=== PATIENT | female | born 1955 | race African-American/Black ===

== ENCOUNTER 2020-06-05 08:52 | Emergency (ER) | payer MEDICARE, SELFPAY ==
[2020-06-05] VITALS (37 sets, daily range): BP systolic 122–174; BP diastolic 67–143; PULSE 78–99; RESP 16–38; TEMP 36.6; O2SAT 83–100
--- NOTE | ~2020-06-05 | XR_ITS ---
EXAMINATION: XR chest 1V portable INDICATION: Shortness of breath TECHNIQUE: Portable AP chest at 1024 hours COMPARISON: 01/15/2018 FINDINGS: There are diffuse interstitial and airspace opacities throughout all lung zones. Cardiomega ly is noted. No pleural effusion or pneumothorax is identified. The visible osseous structures are un remarkable. IMPRESSION: 1. Diffuse lung disease, consistent with pneumonia and/or pulmonary edema. Reviewed, dictated and finalized at location B.
--- NOTE | 2020-06-05 08:55 | ECG_ITS ---
SINUS RHYTHM ATRIAL PREMATURE COMPLEX LEFT AXIS DEVIATION LEFT BUNDLE BRANCH BLOCK BASELINE ARTIFACT- I, II, III, AVR ABNORMAL ECG Electronically Signed On 06-05-2020 9:18:41 CDT by Heath DUBOSE
--- NOTE | 2020-06-05 09:18 | PC.NURSE ---
ATTEMPTED IV X2. UNSUCCESSFUL. PT STATES SHE IS A DIFFICULT STICK AND NORMALLY NEEDS US TO FIND VEIN. CALLED NEHEMIAS, IV SPECIALIST. STATES SHE WILL BE DOWN TO START AN IV. PT NOTIFIED.
[2020-06-05 10:02] LABS: Basophils Percent Auto 0.4 % (0.2-1.2); Eosinophils Absolute Auto 0.2 K/mm3 (0-0.3); Eosinophils Percent Auto 2.9 % (0-4.4); Hemoglobin 9.4 g/dL (12.0-15.0); Immature Granulocyte Absolute 0.03 K/mm3 (0.00-0.031); Immature Granulocyte Percent A 0.4 % (0-0.5); Lymphocytes Absolute Auto 1.93 K/mm3 (0.9-3.2); Lymphocytes Percent Auto 24.2 % (18.3-44.2); Mean Corpuscular HGB Conc 31.3 g/dl (32-36); Mean Corpuscular Hemoglobin 28.4 pg (26-34); Mean Corpuscular Volume 90.6 fl (80-100); Mean Platelet Volume 10.1 fl (7.4-10.4); Monocytes Absolute Auto 0.6 K/mm3 (0.1-0.6); Neutrophils Absolute Auto 5.1 K/mm3 (1.3-6.7); Neutrophils Percent Auto 64.1 % (45.5-73.1); Platelet Count Result 259 k/mm3 (150-375); Red Blood Count 3.31 M/mm3 (4.2-5.4); Red Cell Distribution Width 14.8 % (11.5-14.5)
[2020-06-05 10:11] LABS: INR 1.1; Prothrombin Time 14.5 Seconds (11.1-14.7)
[2020-06-05 10:13] LABS: Anion Gap 7 mmol/L (8-16); Blood Urea Nitrogen 23 mg/dL (7-17); Carbon Dioxide 34 mmol/L (22-30); Chloride 97 mmol/L (98-107); Estimated Glomerular Filt Rate 11; Glucose 96 mg/dL (65-105); Potassium 3.7 mmol/L (3.4-5.0); Sodium 138 mmol/L (137-145)
[2020-06-05 10:25] LABS: Troponin I 0.026 ng/mL (0.000-0.034)
[2020-06-05 10:37] LABS: Alveolar/Arterial O2 Gradient 57.9 mmHg; Base Excess ABG 4.9 mEq/l (+/-2.0); Carboxyhemoglobin 0.3 % THb (0-2.0); Fractional Inspired Oxygen 21 %; HCO3 ABG 28.6 mEq/l (22.0-26.0); Methemoglobin ABG 0.3 %THb (0-1.5); Oxygen Content ABG 12.3 %vol (16.0-22.0); Oxyhemoglobin 81.9 % THb (90.0-100.0); PCO2 ABG 38.8 mmHg (35.0-45.0); PO2 FiO2 Ratio Arterial Blood 2.16 %; Reduced Hemoglobin 17.5 %THb (0-5.0); Total Hemoglobin 10.7 g/dL (12.0-18.0); pH ABG 7.485 (7.350-7.450)
[2020-06-05 10:39] LABS: Device ROOM AIR; Modified Allen's Test Pass; Oxygen Saturation ABG 84.8 % (95.0-100.0); PO2 ABG 45.4 mmHg (80.0-100.0); Site Drawn RIGHT RADIAL
--- NOTE | 2020-06-05 10:49 | ED.CHESTPAIN ---
HPI - Chest Pain General Chief Complaint: Chest Pain Stated Complaint: CP Time Seen by Provider: 06/05/20 09:34 Source: patient Mode of arrival: EMS Limitations: no limitations History of Present Illness HPI narrative: This is a 64 year old female with history of CHF, ESRD on dialysis, COPD, afib who presents for evaluation chest pain and shortness of breath. She reports she developed chest pain while she was receiving dialysis. She describes her pain as midsternal chest tightness, nonradiating. She reports associated wheezing and shortness of breath. She completed 3 hours of dialysis treatment . She was given aspirin 324 and nitro by EMS and she reports this improved her tightness. She also reports having nausea and vomiting. She denies abdominal pain, or fever. She reports nonproductive cough. She denies fluid retention. Related Data Allergies Allergy/AdvReac Type Severity Reaction Status Date / Time lisinopril Allergy Unknown Unknown Verified 06/05/20 08:59 propoxyphene Allergy Unknown Unknown Verified 06/05/20 08:59 valsartan Allergy Unknown lost voice Verified 06/05/20 08:59 Review of Systems Review of Systems: All systems reviewed & are unremarkable except as noted in HPI and below Constitutional: Constitutional: Denies chills, Reports fatigue and Denies fever(s) Cardiovascular: Cardiovascular: Reports chest pain Respiratory: Respiratory: Reports cough, Reports dyspnea and Reports wheezing Gastrointestinal: Gastrointestinal: Denies abdominal pain and Denies nausea PMFSH Past Medical History Medical History (Updated 06/05/20 @ 17:32 by Ana Santacruz MD) CHF (congestive heart failure) COPD (chronic obstructive pulmonary disease) ESRD (end stage renal disease) on dialysis Hypertension LENORA (obstructive sleep apnea) Surgical History Surgical History (Updated 06/05/20 @ 17:30 by Ana Santacruz MD) No pertinent past surgical history Family History Family History (Updated 03/23/17 @ 13:59 by DOCTOR UNKNOWN) Mother Hypertension Family history of congestive heart failure Family history of congenital heart disease Family history of arthritis Family history of kidney disease Family history of chronic obstructive pulmonary disease Father Carcinoma of colon Sibling Family history of diabetes mellitus in first degree relative Grandparent Family history of congestive heart failure Diabetes mellitus Other Family history of cardiovascular disease Social History Social History Smoking status: Never smoker Second hand tobacco smoke exposure: No Alcohol intake: never Exam Const: General: alert and ill appearing Nutritional Appearance: obese Orientation/consciousness: patient oriented x3 Eyes: EOM: EOMs intact bilaterally Chest: Chest palpation & inspection: normal inspection of the chest Resp: Effort & Inspection: no retractions, tachypneic and no use of accessory muscles Auscultation: crackles Cardio: Rate: tachycardic Rhythm: regular rhythm Heart sounds: Murmur heart sound present GI: GI Palp: Yes Soft to palpation, No Tenderness to palpation present (GI) and No Guarding due to palpation present (GI) Auscultation: normal bowel sounds Skin: General skin exam: normal color Rashes: no rashes Neuro: General: patient oriented x3 and moves all extremities Extrem: Other: left arm av fistula with good thrill Psych: Mental Status: mental status grossly normal Affect: normal affect Course Reevaluation(s) Reevaluation #1: PAtien reports she feels better but she still does not feel well. I have discussed test and evaluation. This appears to be sudden onset so I think it is likely CHF, fluid overload. She is requesting transfer to [facility] because her doctors are there. She states she does not produce urine. Date: 06/05/20 Time: 13:00 Consultations Consultation #1: I discussed case with Dr. Squires who states he will likely dialyze tomorr
[2020-06-05] MEDS: NITROGLYCERIN OINTMENT 1 INCH DOSE TRANSDERM (10:53)
[2020-06-05] MEDS: ALBUTEROL SULFATE NEB 2.5 MG/0.5 ML INH 5 MG INHALATION (12:32)
[2020-06-05] MEDS: IPRATROPIUM BR 0.02% INH SOLN 0.5 MG/2.5 ML VIAL INHALATION (12:32)
[2020-06-05 12:36] LABS: Troponin I 0.033 ng/mL (0.000-0.034)
[2020-06-05 13:32] LABS: NT Pro B Type Natriuretic Pept 29000 PG/ML (5-100)
--- NOTE | 2020-06-05 15:20 | PC.NURSE ---
[facility] declined transfer to [facility] accepted transfer to [facility] ETA [id number] Trip #[id number]
--- NOTE | 2020-06-05 16:51 | PC.NURSE ---
updated ETA for Obrien 1800
== END 2020-06-05 19:20 | disposition short-term general hospital (02) ==
PROVIDERS: Emergency Provider General Practice
DX: I50.9 Heart failure, unspecified (principal); J18.9 Pneumonia, unspecified organism; R09.02 Hypoxemia; R07.2 Precordial pain; I13.2 Hypertensive heart and chronic kidney disease with heart failure and with stage 5 chronic kidney disease, or end stage renal disease; N18.6 End stage renal disease; Z99.2 Dependence on renal dialysis; J44.9 Chronic obstructive pulmonary disease, unspecified; G47.33 Obstructive sleep apnea (adult) (pediatric); I48.91 Unspecified atrial fibrillation; I49.1 Atrial premature depolarization; I44.7 Left bundle-branch block, unspecified
CPT/HCPCS: 36415; 36600; 71045; 80048; 82375; 82805; 83050; 83880; 84484; 85025; 85610; 85730; 87040; 93005; 94640; 96365; 96367; 99285; A9270; J0131; J0456; J0696

== ENCOUNTER 2020-06-16 11:43 | Inpatient (IN) | payer MEDICARE, SELFPAY ==
[2020-06-16] VITALS (19 sets, daily range): BP systolic 117–153; BP diastolic 63–111; PULSE 79–107; RESP 17–38; TEMP 36.6–37.1; O2SAT 90–100; BMI 36.8
--- NOTE | ~2020-06-16 | XR_ITS ---
EXAMINATION: XR chest 1V portable DATE: 06/16/2020 12:57 INDICATION: Shortness of breath. TECHNIQUE: A single frontal view of the chest was obtained. COMPARISON: Chest single view 06/05/2020 FINDINGS: There are airspace opacities in all lung zones bilaterally. No pleural effusion or pneumoth orax. Cardiomegaly is noted. There are surgical clips in the neck. IMPRESSION: 1. Worsened diffuse lung disease, consistent with pulmonary edema versus pneumonia. 2. Cardiomegaly. Reviewed, dictated and finalized at location A. IMPRESSION: 1. Worsened diffuse lung disease, consistent with pulmonary edema versus pneumo saturnino. 2. Cardiomegaly.
--- NOTE | 2020-06-16 11:56 | ECG_ITS ---
Measurements Intervals [place] Rate: 98 P: 66 HI: 151 QRS: -41 QRSD: 129 T: 77 QT: 414 QTc: 530 Interpretive Statements SINUS RHYTHM WITH SINUS ARRHYTHMIA LEFT AXIS DEVIATION LEFT BUNDLE BRANCH BLOCK BASELINE ARTIFACT- I, II, III, AVR, AVF, V2-V6 ABNORMAL ECG Electronically Signed On 06-16-2020 12:18:05 CDT by Heath Grande D.O.
[2020-06-16] MEDS: IPRATROPIUM BR 0.02% INH SOLN 0.5 MG/2.5 ML VIAL INHALATION (12:00)
--- NOTE | 2020-06-16 12:30 | ED.GENADULT ---
HPI - General Adult General Chief complaint: Shortness of Breath/Dyspnea Stated complaint: SOB Time Seen by Provider: 06/16/20 11:56 Source: patient History of Present Illness HPI narrative: Patient is a 64 y/o female complaining of severe SOB since last night. She states that breathing treatment helps some with her SOB. She also has some chest pain. She reportedly had sats in 80s when EMS arrived. She was placed on CPAP. Of note, she states that she was recently admitted to [facility] and just discharged from there yesterday. Related Data Home Medications Medication Instructions Recorded Confirmed B complex-vitamin C-folic acid tablet 06/16/20 [Dialyvite 800] atorvastatin 06/16/20 calcium acetate(phosphat bind) mg 06/16/20 fluoxetine mg 06/16/20 fluticasone propionate [Flovent INHALATION 06/16/20 HFA] lanthanum mg 06/16/20 linaclotide [Linzess] mcg 06/16/20 metoprolol succinate PO 06/16/20 06/16/20 midodrine mg 06/16/20 montelukast mg 06/16/20 omeprazole 06/16/20 ondansetron HCl 06/16/20 propranolol 06/16/20 rosuvastatin mg 06/16/20 trazodone 06/16/20 Allergies Allergy/AdvReac Type Severity Reaction Status Date / Time lisinopril Allergy Unknown Unknown Verified 06/16/20 16:54 propoxyphene Allergy Unknown Unknown Verified 06/16/20 16:54 valsartan Allergy Unknown lost voice Verified 06/16/20 16:54 Review of Systems Constitutional: Constitutional: Denies chills, Denies fever(s), Denies headache(s) and Denies weakness Eyes: Eyes: Denies blurry vision ENT: Denies headache(s) and Denies neck pain Cardiovascular: Cardiovascular: Reports chest pain and Reports dyspnea Respiratory: Respiratory: Denies cough and Reports dyspnea Gastrointestinal: Gastrointestinal: Denies abdominal pain, Denies diarrhea, Denies nausea and Denies vomiting Genitourinary: Genitourinary: Denies hematuria and Denies dysuria Musculoskeletal: Musculoskeletal: Denies back pain and Denies neck pain Neurologic: Denies headache(s) and Denies weakness [facility] Past Medical History Medical History (Updated 06/16/20 @ 16:56 by Elda Pickering MD) CHF (congestive heart failure) COPD (chronic obstructive pulmonary disease) ESRD (end stage renal disease) on dialysis Hypertension LENORA (obstructive sleep apnea) Surgical History Surgical History No pertinent past surgical history Family History Family History Mother Hypertension Family history of congestive heart failure Family history of congenital heart disease Family history of arthritis Family history of kidney disease Family history of chronic obstructive pulmonary disease Father Carcinoma of colon Sibling Family history of diabetes mellitus in first degree relative Grandparent Family history of congestive heart failure Diabetes mellitus Other Family history of cardiovascular disease Social History Social History Smoking status: Never smoker Second hand tobacco smoke exposure: No Alcohol intake: never Gender identity (if verbalized by the patient): Female Exam Const: General: no acute distress and well developed Orientation/consciousness: oriented to person, oriented to place, oriented to time and patient oriented x3 HENMT: Head: normocephalic Ears: external ears normal General nose exam: Normal external nose present Eyes: General: appearance normal, both eyes and all related structures Conjunctivae: conjunctivae normal Neck: Neck: normal visual inspection and full ROM Chest: Chest palpation & inspection: normal inspection of the chest and no tenderness Resp: Effort & Inspection: normal respiratory effort Auscultation: clear to auscultation bilaterally Cardio: Rate: regular rate Rhythm: regular rhythm GI: GI Palp: No abdominal tenderness and Y
[2020-06-16 13:13] LABS: Basophils Percent Auto 0.4 % (0.2-1.2); Eosinophils Absolute Auto 0.2 K/mm3 (0-0.3); Eosinophils Percent Auto 2.2 % (0-4.4); Hematocrit 29.5 % (37.0-47.0); Hemoglobin 9.2 g/dL (12.0-15.0); Immature Granulocyte Absolute 0.08 K/mm3 (0.00-0.031); Immature Granulocyte Percent A 0.7 % (0-0.5); Lymphocytes Absolute Auto 2.01 K/mm3 (0.9-3.2); Lymphocytes Percent Auto 18.7 % (18.3-44.2); Mean Corpuscular HGB Conc 31.2 g/dl (32-36); Mean Corpuscular Hemoglobin 28.4 pg (26-34); Mean Platelet Volume 10.5 fl (7.4-10.4); Monocytes Absolute Auto 1.1 K/mm3 (0.1-0.6); Neutrophils Absolute Auto 7.3 K/mm3 (1.3-6.7); Platelet Count Result 239 k/mm3 (150-375); Red Blood Count 3.24 M/mm3 (4.2-5.4); Red Cell Distribution Width 14.8 % (11.5-14.5); White Blood Count 10.8 K/mm3 (4.5-10.0)
[2020-06-16 13:22] LABS: Alanine Aminotransferase 13 U/L (4-35); Albumin Level 4.1 g/dL (3.5-5.1); Alkaline Phosphatase 46 U/L (38-126); Anion Gap 9 mmol/L (8-16); Aspartate Amino Transferase 32 U/L (14-36); Bilirubin,Total 0.8 mg/dL (0.2-1.3); Blood Urea Nitrogen 44 mg/dL (7-17); Calcium 8.5 mg/dL (8.4-10.2); Carbon Dioxide 28 mmol/L (22-30); Chloride 100 mmol/L (98-107); Estimated CRCL calculation 7 ml/min; Estimated Glomerular Filt Rate 6; Glucose 113 mg/dL (65-105); Potassium 4.7 mmol/L (3.4-5.0); Sodium 137 mmol/L (137-145)
[2020-06-16 13:43] LABS: NT Pro B Type Natriuretic Pept 34400 pg/mL (5-100); Troponin I 0.078 ng/mL (0.000-0.034)
--- NOTE | 2020-06-16 14:55 | PC.NURSE ---
Called to give report, hospital secretary states that room is not yet clean.
--- NOTE | 2020-06-16 15:05 | PM.IMHP ---
H&P: HPI History of Present Illness Date/Time: 06/16/20 15:05 SOB 64 year old admitted with SOB was on CPAP now is on 2 liters of oxygen. Pt recently discharged from [facility] yesterday for CHF and ESRD. Pt states she received dialysis there and felt well on discharge, but later that day she felt sob and wheezy and called her daughter and was brought in by the fire department. Pt uses walks with a walker. Pt has a cough but denies fever. Cxr here shows- worsened diffuse lung disease, consistent with pulmonary edema versus pneumonia. 2. Cardiomegaly. Pt has a history of CHF, ESRD on dialysis, COPD and Afib. Pt has dialysis three times a week. Chief Complaint: SOB Review of Systems Review of Systems: All systems reviewed & are unremarkable except as noted in HPI and below PMFSH Past Medical History Medical History CHF (congestive heart failure) COPD (chronic obstructive pulmonary disease) ESRD (end stage renal disease) on dialysis Hypertension LENORA (obstructive sleep apnea) Surgical History Surgical History No pertinent past surgical history Family History Family History Mother Hypertension Family history of congestive heart failure Family history of congenital heart disease Family history of arthritis Family history of kidney disease Family history of chronic obstructive pulmonary disease Father Carcinoma of colon Sibling Family history of diabetes mellitus in first degree relative Grandparent Family history of congestive heart failure Diabetes mellitus Other Family history of cardiovascular disease Social History Social History Smoking status: Never smoker Second hand tobacco smoke exposure: No Alcohol intake: never Gender identity (if verbalized by the patient): Female Meds Home Medications and Allergies Allergies Allergy/AdvReac Type Severity Reaction Status Date / Time lisinopril Allergy Unknown Unknown Verified 06/05/20 08:59 propoxyphene Allergy Unknown Unknown Verified 06/05/20 08:59 valsartan Allergy Unknown lost voice Verified 06/05/20 08:59 Vital Signs Vital Signs - 24 hr 06/16/20 11:48 06/16/20 11:57 06/16/20 12:01 Temperature 37.1 C Pulse Rate 95 93 Respiratory Rate 18 22 H Blood Pressure 136/86 Pulse Oximetry 97 95 06/16/20 12:04 Temperature Pulse Rate 97 Respiratory Rate 17 Blood Pressure Pulse Oximetry Exam Const: General: other (chronically ill elderly lady ) HENMT: Head: normocephalic Eyes: General: appearance normal, both eyes and all related structures Pupils: Equal, round and reactive pupils present Neck: Neck: supple Resp: Auscultation: other (BL crackles at bases ) Cardio: Jugular venous distension: no JVD Rhythm: regular rhythm Heart sounds: S1 normal heart sound present and S2 normal heart sound present GI: Inspection: normal to inspection GI Palp: No abdominal tenderness, Yes Soft to palpation and No Tenderness to palpation present (GI) Auscultation: normal bowel sounds Skin: General skin exam: normal color and dry skin Neuro: Cranial nerves: Yes CN's II-XII intact bilaterally and Yes Equal, round and reactive pupils present Cognition (Neuro): normal cognition Speech: normal speech Motor exam (neuro): 5/5 motor strength present throughout Extrem: General: other (Generailsed weakness ) Psych: Appearance: grossly normal Mental Status: mental status grossly normal H&P: Results Labs Labs: Short CBC 06/16/20 Range/Units 13:08 WBC 10.8 H (4.5-10.0) K/mm3 Hgb 9.2 L (12.0-15.0) g/dL Hct 29.5 L (37.0-47.0) % Plt Count 239 (150-375) k/mm3 BMP 06/16/20 13:08 Sodium 137 Potassium 4.7 Chloride 100 Carbon Dioxide 28 BUN 44 H D Creatinine 7.60 H Glucose 11
--- NOTE | 2020-06-16 15:19 | PC.NURSE ---
Called for update on patient room. Room now clean, IMU RN to call for report.
--- NOTE | 2020-06-16 16:50 | ADMGEN ---
This patient, Donya Tobin, was admitted to IMU Room 207-01. Patient/family oriented to hospital policies and general routines including ID bracelet, bed and alarms, visiting hours, pain management, procedures, bathroom and other care routines, personal items, smoking policy, room service/diet, and visiting hours. Information on how to activate the Rapid Response Team has been discussed. Patient/Family are encouraged to report perceived risks to care and to ask questions if they do not understand what they are told or what they should do.
[2020-06-16 17:08] LABS: Troponin I 0.074 ng/mL (0.000-0.034)
[2020-06-16 19:26] LABS: Troponin I 0.084 ng/mL (0.000-0.034)
[2020-06-16] MEDS: PANTOPRAZOLE 40 MG TABLET PO (20:13)
[2020-06-16] MEDS: APIXABAN 2.5 MG TABLET PO (20:13)
[2020-06-16] MEDS: ATORVASTATIN 20 MG TABLET PO (20:14)
[2020-06-16] MEDS: FLUTICASONE PROP 220 MCG (*SP) 12 GM INHALER 2 PUFF INHALATION (20:15)
[2020-06-16] MEDS: traZODone HCL 50 MG TABLET PO (20:21)
[2020-06-17] VITALS (30 sets, daily range): BP systolic 107–137; BP diastolic 46–81; PULSE 68–108; RESP 18–23; TEMP 35.8–37.4; O2SAT 94–99; BMI 36.7
[2020-06-17 05:22] LABS: Anion Gap 9 mmol/L (8-16); Blood Urea Nitrogen 48 mg/dL (7-17); Calcium 7.9 mg/dL (8.4-10.2); Carbon Dioxide 30 mmol/L (22-30); Chloride 100 mmol/L (98-107); Estimated CRCL calculation 6 ml/min; Estimated Glomerular Filt Rate 5; Glucose 107 mg/dL (65-105); Potassium 4.6 mmol/L (3.4-5.0); Sodium 139 mmol/L (137-145)
[2020-06-17] MEDS: FLUoxetine HCL 20 MG CAPSULE 40 MG PO (08:09)
[2020-06-17] MEDS: MIDODRINE HCL 10 MG TABLET PO ×2 (08:09→13:40)
[2020-06-17] MEDS: MIDODRINE HCL 2.5 MG TABLET 5 MG PO ×2 (08:10→13:40)
[2020-06-17] MEDS: CALCIUM ACETATE 667 MG TABLET 1334 MG PO (08:10)
--- NOTE | 2020-06-17 12:43 | PM.IMPN ---
Progress Note: A&P Assessment and Plan (1) LENORA (obstructive sleep apnea): Code(s): G47.33 - Obstructive sleep apnea (adult) (pediatric) Status: Inactive Assessment and Plan: Pt to have CPAP at night Patient states that she wears her CPAP every now and then (2) Hypertension: Code(s): I10 - Essential (primary) hypertension Status: Inactive Assessment and Plan: CHronic and stable (3) ESRD (end stage renal disease) on dialysis: Code(s): N18.6 - End stage renal disease; Z99.2 - Dependence on renal dialysis Status: Inactive Assessment and Plan: Continue with dialysis while in the hospital consult nephrology. (4) COPD (chronic obstructive pulmonary disease): Code(s): J44.9 - Chronic obstructive pulmonary disease, unspecified Status: Inactive Assessment and Plan: Continue breathing treatments which in the hospital. Creat is 7.6, pt is on dialysis three times a week. (5) CHF (congestive heart failure): Code(s): I50.9 - Heart failure, unspecified Status: Inactive Assessment and Plan: Order Lasix 20 mg iv daily cxr shows pulmonary edema Subjective Date/time seen: 06/17/20 12:43 I feel short of breath Review of Systems Review of Systems: All systems reviewed & are unremarkable except as noted in HPI and below Exam Const: General: other (chronically ill elderly lady ) HENMT: Head: normocephalic Eyes: General: appearance normal, both eyes and all related structures Pupils: Equal, round and reactive pupils present Neck: Neck: supple Resp: Auscultation: crackles, rales bilateral and other (BL crackles at bases ) Cardio: Jugular venous distension: no JVD Rhythm: regular rhythm Heart sounds: S1 normal heart sound present and S2 normal heart sound present GI: Inspection: normal to inspection Auscultation: normal bowel sounds Skin: General skin exam: normal color and dry skin Neuro: Cranial nerves: Yes CN's II-XII intact bilaterally and Yes Equal, round and reactive pupils present Cognition (Neuro): normal cognition Speech: normal speech Motor exam (neuro): 5/5 motor strength present throughout Extrem: General: other (Generailsed weakness ) Psych: Appearance: grossly normal Mental Status: mental status grossly normal Objective Data Vital Signs Vital Signs: Vital Signs - 24 hr 06/16/20 13:12 06/16/20 13:17 06/16/20 13:47 Temperature Pulse Rate 96 94 93 Respiratory Rate 23 H 32 H 38 H Blood Pressure 141/83 H 148/95 H 153/105 H Pulse Oximetry 100 100 100 06/16/20 14:02 06/16/20 16:00 06/16/20 16:02 Temperature Pulse Rate 94 99 100 Respiratory Rate 30 H 22 H Blood Pressure 150/111 H 124/106 H Pulse Oximetry 100 06/16/20 16:24 06/16/20 16:32 06/16/20 18:00 Temperature 97.8 F Pulse Rate 102 H 95 Respiratory Rate 18 Blood Pressure 128/72 Pulse Oximetry 90 95 06/16/20 18:33 06/16/20 19:19 06/16/20 20:00 Temperature 97.9 F Pulse Rate 98 107 H 96 Respiratory Rate 18 20 Blood Pressure 129/84 Pulse Oximetry 96 96 93 06/16/20 20:36 06/16/20 22:00 06/16/20 23:31 Temperature 98.8 F Pulse Rate 96 79 87 Respiratory Rate 37 H 18 Blood Pressure 117/63 Pulse Oximetry 93 96 06/17/20 00:00 06/17/20 02:00 06/17/20 04:00 Temperature 98.5 F Pulse Rate 94 92 94 Respiratory Rate 22 H Blood Pressure 113/59 L Pulse Oximetry 95 95 06/17/20 04:44 06/17/20 06:00 06/17/20 08:00 Temperature Pulse Rate 94 96 102 H Respiratory Rate 23 H Blood Pressure Pulse Oximetry 94 06/17/20 08:18 06/17/20 08:47 06/17/20 10:00 Temperature 97.4 F L Pulse Rate 108 H 101 H Respiratory Rate 23 H Blood Pressure 129/81 Pulse Oximetry 98 95 Intake/Output Intake/Output: Intake & Output 06/14/20 06/15/20 06/16/20 06/17/20 23:59 23:59 23:59 23:59 Intake Total 270 Output Total 0 0 Balance 0 270 Meds/Results Medications: Activ
[2020-06-17] MEDS: ACETAMINOPHEN 500 MG TABLET 1000 MG PO (13:39)
[2020-06-17] MEDS: SODIUM CHLORIDE 0.9% IV 1,000 ML 100 ML IV CONT (14:20)
--- NOTE | 2020-06-17 15:11 | PCOTNOTE ---
Attempted OT evaluation, but unable to complete as patient gone to dialysis. Will attempt again tomorrow.
--- NOTE | 2020-06-17 17:01 | PM.PNNEP ---
Progress Note: A&P Assessment and Plan (1) ESRD (end stage renal disease) on dialysis: Code(s): N18.6 - End stage renal disease; Z99.2 - Dependence on renal dialysis Status: Chronic (2) Acute and chronic respiratory failure with hypoxia: Code(s): J96.21 - Acute and chronic respiratory failure with hypoxia Status: Acute (3) Anemia: Code(s): D64.9 - Anemia, unspecified Status: Chronic Assessment and Plan: HD today push fluid removal as tolerated follow CKD parameters review records from recent stay at [facility] FULL CONSULT to follow Subjective Date/time seen: 06/17/20 17:01 Patient tolerating hemodialysis treatment at the time of my visit (seen on HD at ~ 4:50PM); seems relatively comfortable currently; no other acute issues/complaints voiced at this time. Exam Narrative: Exam Narrative: General: WD/WN AA female in NAD Heart: normal S1 and S2; no rub Lungs: coarse and decreased at bases Abdomen: soft, nontender, nondistended, positive bowel sounds Extremities: no cyanosis or clubbing; no edema Skin: warm and dry Objective Data Vital Signs Vital Signs: Vital Signs Temp Pulse Resp BP Pulse Ox 06/17/20 16:15 84 115/59 L 06/17/20 16:00 91 127/67 06/17/20 15:45 88 121/67 06/17/20 15:32 89 122/76 06/17/20 15:15 36.7 C 94 18 126/74 06/17/20 14:00 100 06/17/20 13:12 35.8 C L 96 129/79 99 06/17/20 12:00 102 H 95 06/17/20 10:00 101 H 06/17/20 08:47 36.3 C L 108 H 23 H 129/81 95 06/17/20 08:18 98 06/17/20 08:00 102 H 06/17/20 06:00 96 06/17/20 04:44 94 23 H 94 06/17/20 04:00 36.9 C 94 22 H 113/59 L 95 06/17/20 02:00 92 06/17/20 00:00 94 95 06/16/20 23:31 37.1 C 87 18 117/63 96 06/16/20 22:00 79 06/16/20 20:36 96 37 H 93 06/16/20 20:00 96 93 06/16/20 19:19 36.6 C 107 H 20 129/84 96 06/16/20 18:33 98 18 96 06/16/20 18:00 95 Intake/Output Intake/Output: Intake & Output 06/14/20 06/15/20 06/16/20 06/17/20 23:59 23:59 23:59 23:59 Intake Total 510 Output Total 0 0 Balance 0 510 Meds/Results Medications: Active Medications Generic Name Dose Route Start Last Admin Trade Name Freq PRN Reason Stop Dose Admin Acetaminophen 1,000 mg 06/17/20 13:00 06/17/20 13:39 Acetaminophen 500 Mg Tablet PO 1,000 mg Q6H PRN Administration Mild Pain (1-3) or Fever Apixaban 2.5 mg 06/16/20 21:00 06/16/20 20:13 Apixaban 2.5 Mg Tablet PO 2.5 mg Q12HR JAZMIN Administration Atorvastatin Calcium 20 mg 06/16/20 21:00 06/16/20 20:14 Atorvastatin 20 Mg Tablet PO 20 mg HS JAZMIN Administration Calcium Acetate 1,334 mg 06/16/20 17:00 06/17/20 13:40 Calcium Acetate 667 Mg Tablet PO Not Given TIDWM JAZMIN Epoetin Daniele-epbx 10,000 units 06/17/20 21:37 Epoetin Daniele-Epbx 10,000 Units/Ml Vial IV PUSH 06/17/20 21:38 ONCE ONE Fluoxetine HCl 40 mg 06/17/20 09:00 06/17/20 08:09 Fluoxetine Hcl 20 Mg Capsule PO 40 mg DAILY JAZMIN Administration Fluticasone Propionate 2 puff 06/16/20 20:00 06/16/20 20:15 Fluticasone Prop 220 Mcg (*Sp) 12 Gm Inhaler INHALATION 2 puff Q12HRT JAZMIN Administration Furosemide 20 mg 06/17/20 09:00 Furosemide Inj 40 Mg/4 Ml Vial IV PUSH DAILY JAZMIN Guaifenesin 200 mg 06/16/20 21:24 Guaifenesin 200 Mg/10 Ml Udc PO Q4H PRN Cough Albumin Human 50 mls @ 999 mls/hr 06/17/20 06:37 Albutein IVPB 07/17/20 06:38 Q10M PRN HYPOTENSION Midodrine 10 mg 06/16/20 17:00 06/17/20 13:40 Midodrine Hcl 10 Mg Tablet PO 10 mg TID JAZMIN Administration Midodrine 5 mg 06/16/20 17:00 06/17/20 13:40 Midodrine Hcl 2.5 Mg Tablet PO 5 mg TID JAZMIN Administration Nonform Linaclotide 145 mcg 06/16/20 19:18 [Linzess] 145 Mcg PO Capsule DAILY PRN Constipation Ondansetron HCl 4 mg 0
[2020-06-17] MEDS: EPOETIN ALFA-EPBX 10,000 UNITS/ML VIAL 10000 UNITS IV PUSH (17:45)
--- NOTE | 2020-06-17 19:56 | PC.NURSE ---
This patient, Donya Tobin, was transferred to [ 303] on 06/17/20 at 1956. Personal belongings sent with patient. Report given to [ Crystal]. Appropriate documentation sent with patient.
[2020-06-17] MEDS: APIXABAN 2.5 MG TABLET PO (21:34)
[2020-06-17] MEDS: ATORVASTATIN 20 MG TABLET PO (21:34)
[2020-06-17] MEDS: PANTOPRAZOLE 40 MG TABLET PO (21:34)
[2020-06-17] MEDS: FLUTICASONE PROP 220 MCG (*SP) 12 GM INHALER 2 PUFF INHALATION (21:38)
[2020-06-18] VITALS (13 sets, daily range): BP systolic 108–166; BP diastolic 59–77; PULSE 87–126; RESP 18–20; TEMP 36.7–37.9; O2SAT 86–100
[2020-06-18] MEDS: ACETAMINOPHEN 500 MG TABLET 1000 MG PO (01:46)
[2020-06-18] MEDS: guaiFENesin 200 MG/10 ML UDC PO ×2 (01:49→10:54)
--- NOTE | 2020-06-18 07:40 | WPDCDIQUERY2 ---
CDI Query Clarification Request 1) -Acute on chronic respiratory failure documented by EDP and Dr Squires -Documentation that EMS placed pt on C pap for O2 sats in the 80's -Pt currently on O2 at 2L -No ABG's done, and no documentation of respiratory distress -No mention of acute on chronic respiratory failure by hospitalists Please clarify if acute on chronic respiratory failure has been ruled in or ruled out. 2) -CHF has been documented as status inactive - Order Lasix 20 mg iv daily, as cxr shows pulmonary edema has been documented -No echo in EMR Please clarify status: acute, chronic, suspected, ruled out, inactive, and acuity of CHF: acute, chronic, acute on chronic, unable to determine also type of CHF if known: systolic, diastolic, both systolic and diastolic, unknown. <Keya Sheikh RN - Last Filed: 06/18/20 07:52> Clarified Diagnosis (1) Acute and chronic respiratory failure with hypoxia: Code(s): J96.21 - Acute and chronic respiratory failure with hypoxia <Keya Sheikh RN - Last Filed: 06/18/20 07:52> Status: Acute <Keya Sheikh RN - Last Filed: 06/18/20 07:52> Assessment and Plan: PATIENT ON CPAP AT NIGHTTIME SHE IS NOT COMPLIANT WITH THESE CURRENTLY REQUIRING OXYGEN SUPPLEMENTAL HAS QUALIFY FOR HOME O2 OXYGEN <Sami Cardoso MD - Last Filed: 06/18/20 13:39> (2) CHF (congestive heart failure): Code(s): I50.9 - Heart failure, unspecified <Keya Sheikh RN - Last Filed: 06/18/20 07:52> Status: Acute <Keya Sheikh RN - Last Filed: 06/18/20 07:52> Assessment and Plan: ACUTE ON CHRONIC CONGESTIVE HEART FAILURE PATIENT WITH ELEVATED BNP NO ECHOCARDIOGRAM AVAILABLE PATIENT GETS MOST OF HER CARE AT OUTSIDE HOSPITAL PATIENT HAS IMPROVED AFTER HEMODIALYSIS TREATMENT <Sami Cardoso MD - Last Filed: 06/18/20 13:39>
[2020-06-18] MEDS: MIDODRINE HCL 2.5 MG TABLET 5 MG PO ×3 (09:11→17:16)
[2020-06-18] MEDS: MIDODRINE HCL 10 MG TABLET PO ×3 (09:11→17:16)
[2020-06-18] MEDS: CALCIUM ACETATE 667 MG TABLET 1334 MG PO ×3 (09:11→17:15)
[2020-06-18] MEDS: FLUoxetine HCL 20 MG CAPSULE 40 MG PO (10:54)
[2020-06-18] MEDS: PROPRANOLOL HCL 10 MG TABLET PO (10:55)
[2020-06-18] MEDS: PANTOPRAZOLE 40 MG TABLET PO (10:57)
[2020-06-18] MEDS: APIXABAN 2.5 MG TABLET PO (10:57)
[2020-06-18] MEDS: FLUTICASONE PROP 220 MCG (*SP) 12 GM INHALER 2 PUFF INHALATION (10:58)
--- NOTE | 2020-06-18 12:08 | PCRCNOTE ---
HOME O2 EVAL DONE, PT REQUESTING [facility] FOR DME, WILL FAX PAPERWORK.
--- NOTE | 2020-06-18 12:09 | HOMEO2EVAL ---
Evaluation was performed at [facility] Home Oxygen Evaluation RC: Home Oxygen (O2) Evaluation Start: 06/18/20 10:49 Freq: ONCE Status: Active Protocol: RPE Activity Type Activity Date Activity User E-Sign Co-Sign Detail Recorded Client Recorded Date Recorded By Document 06/18/20 11:30 DJO [email or web address] 06/18/20 12:08 DJO Document 06/18/20 11:32 [email or web address] [email or web address] 06/18/20 12:08 DJO Document 06/18/20 11:35 DJO [email or web address] 06/18/20 12:08 DJO Document 06/18/20 11:37 DJO [email or web address] 06/18/20 12:08 DJO Document 06/18/20 11:45 DJO [email or web address] 06/18/20 12:08 DJO 06/18/20 06/18/20 06/18/20 11:30 11:32 11:35 Home O2 Evaluation Test Phase Resting Resting Exercise Oxygen Delivery Room Air Nasal Cannula Nasal Cannula Oxygen Flow Rate (L/min) 1 1 Pulse Oximetry (90-100 %) 87 L 92 86 L Pulse Rate (60-100 beats/min) 96 100 126 H Activity Tolerance Fair Ambulation Distance (feet) Home Oxygen Evaluation Comments Treatment Charges O2 Evaluation - Inpatient 06/18/20 06/18/20 11:37 11:45 Home O2 Evaluation Test Phase Exercise Resting Oxygen Delivery Nasal Cannula Nasal Cannula Oxygen Flow Rate (L/min) 2 1 Pulse Oximetry (90-100 %) 94 95 Pulse Rate (60-100 beats/min) 123 H 96 Activity Tolerance Ambulation Distance (feet) 85 Home Oxygen Evaluation Comments PT REQIORES 1 L AT REST AND 2 L WITH EXERTION Treatment Charges
--- NOTE | 2020-06-18 13:07 | PM.CNNEP ---
Assessment and Plan Assessment and plan (1) End stage renal disease: Code(s): N18.6 - End stage renal disease Status: Chronic Assessment and Plan: HD yesterday and plan HD tomorrow and continue Mon/Mon/Monday dialysis schedule continue to optimize fluid status, electrolytes, and clearance as tolerated (2) Acute and chronic respiratory failure with hypoxia: Code(s): J96.21 - Acute and chronic respiratory failure with hypoxia Status: Acute Assessment and Plan: thought to be secondary to fluid overload however, she was below her dry weight on admission BUT, her breathing and respiratory status improved with more aggressive fluid removal will adjust outpatient dry weight (3) Anemia: Code(s): D64.9 - Anemia, unspecified Status: Chronic Assessment and Plan: just below goal for ESRD Epogen with HD follow trend of H/H Will continue to follow. History of Present Illness Reason for Consult Consult date: 06/18/20 Reason for consult: end stage renal disease Chief Complaint Chief complaint: Hypoxia, volume overload History of Present Illness Narrative: The patient is a 64-year-old female with a past medical history as outlined below who presented to [facility] Emergency room with complaints of shortness of breath. The patient was just recently discharged from [facility] the day before admission for shortness of breath as well. During that hospitalization, she was treated with a combination of aggressive fluid removal with dialysis on the assumption of congestive heart failure / volume overload as well as antibiotics and supportive therapy of possible bacterial/ viral pneumonia. She was seen in consultation by both Cardiology as well as pulmonology for treatment of these issues. By the time of discharge, her respiratory status had greatly improved and and she was felt to be stable to be discharged. Apparently, later in the day on the day of discharge from [facility], the patient felt suddenly more short of breath and wheezy. She called her daughter who subsequently called 911 EMS arrived and apparently the patient was hypoxic on room air and improved with administration of supplemental oxygen. She also received a breathing treatment en route to [facility] Emergency room which also improved her respiratory status as well. Workup and evaluation emergency room demonstrated labs consistent with her known history of end-stage renal disease but her BNP as well as her chest x-ray seemed quite consistent with evidence of fluid overload / retention In spite of the fact that she was below her dry weight and had received aggressive ultrafiltration during her recenthospitalization at [facility]. Because of these findings and her complex medical history as noted below, she was admitted the hospital for further evaluation and therapy. Since her admission, she received dialysis yesterday and she was fluid challenged in effort to try and further optimize her fluid status and improve her breathing. Following this diet this dialysis session yesterday, she states that her breathing has remarkably improved argue in favor that fluid was probably more the culprit with regard to her shortness of breath in spite of evidence that she is below her dry weight. She currently has no other acute issues or complaints voiced at this time. Renal consultation was requested due to her end-stage renal disease. The patient normally dialyzes on a Monday, Monday, Monday schedule under the care of Dr. Jc Moreau at [facility]. She is compliant with her dialysis treatments and as already mentioned, tends to be quite careful in terms of her fluid intake although her recent hospitalizations at [facility] as well as on this hospitalization would argue that she seems to retain more fluid in spite of the fact that sh
--- NOTE | 2020-06-18 13:40 | PM.DS ---
DS: Admitting Diagnosis Admitting Diagnosis Admitting Diagnosis: (1) LENORA (obstructive sleep apnea): Code(s): G47.33 - Obstructive sleep apnea (adult) (pediatric) Status: Inactive Assessment and Plan: Pt to have cPAP at night (2) Hypertension: Code(s): I10 - Essential (primary) hypertension Status: Inactive Assessment and Plan: CHronic and stable (3) ESRD (end stage renal disease) on dialysis: Code(s): N18.6 - End stage renal disease; Z99.2 - Dependence on renal dialysis Status: Inactive Assessment and Plan: Continue with dialysis while in the hospital, consult nephrology. (4) COPD (chronic obstructive pulmonary disease): Code(s): J44.9 - Chronic obstructive pulmonary disease, unspecified Status: Inactive Assessment and Plan: Continue breathing treatments which in the hospital. Creat is 7.6, pt is on dialysis three times a week. (5) CHF (congestive heart failure): Code(s): I50.9 - Heart failure, unspecified Status: Inactive Assessment and Plan: Order Lasix 20 mg iv daily, as cxr shows pulmonary edema DS: Discharge Diagnosis Discharge Diagnosis (1) Acute and chronic respiratory failure with hypoxia: Code(s): J96.21 - Acute and chronic respiratory failure with hypoxia Status: Acute Assessment and Plan: PATIENT ON CPAP AT NIGHTTIME SHE IS NOT COMPLIANT WITH THESE CURRENTLY REQUIRING OXYGEN SUPPLEMENTAL HAS QUALIFY FOR HOME O2 OXYGEN (2) CHF (congestive heart failure): Code(s): I50.9 - Heart failure, unspecified Status: Acute Assessment and Plan: ACUTE ON CHRONIC CONGESTIVE HEART FAILURE PATIENT WITH ELEVATED BNP NO ECHOCARDIOGRAM AVAILABLE PATIENT GETS MOST OF HER CARE AT OUTSIDE HOSPITAL PATIENT HAS IMPROVED AFTER HEMODIALYSIS TREATMENT DS: Summary Hospital Course Reason for hospitalization: WORSENING SHORTNESS OF BREATH Hospital Course: PATIENT PRESENTED TO THE EMERGENCY ROOM DUE TO WORSENING SHORTNESS OF BREATH THIS IS A 64-YEAR-OLD FEMALE WHO HAD BEEN DISCHARGED FROM OUTSIDE HOSPITAL WHERE SHE WAS TREATED FOR CONGESTIVE HEART FAILURE EXACERBATION PATIENT'S PAST MEDICAL HISTORY SIGNIFICANT FOR CONGESTIVE HEART FAILURE END-STAGE RENAL DISEASE OBSTRUCTIVE SLEEP APNEA ON CPAP. PATIENT WAS TREATED FLUID OVERLOAD ALSO ELEVATED BNP HER SHORTNESS OF BREATH IN PROVED TO GREATLY AFTER HEMODIALYSIS TREATMENT. PATIENT ALSO QUALIFY FOR HOME O2 OXYGEN. Status at Discharge Cognitive/behavioral status at discharge: AAOX3 Functional status at discharge: uses cane/walker Time Spent with Patient Time attestation: Total time spent providing and/or coordinating discharge services: Exam Const: General: other (chronically ill elderly lady ) HENMT: Head: normocephalic Eyes: General: appearance normal, both eyes and all related structures Pupils: Equal, round and reactive pupils present Neck: Neck: supple Resp: Auscultation: crackles, rales bilateral and other (BL crackles at bases ) Cardio: Jugular venous distension: no JVD Rhythm: regular rhythm Heart sounds: S1 normal heart sound present and S2 normal heart sound present GI: Inspection: normal to inspection Auscultation: normal bowel sounds Skin: General skin exam: normal color and dry skin Neuro: Cranial nerves: Yes CN's II-XII intact bilaterally and Yes Equal, round and reactive pupils present Cognition (Neuro): normal cognition Speech: normal speech Motor exam (neuro): 5/5 motor strength present throughout Extrem: General: other (Generailsed weakness ) Psych: Appearance: grossly normal Mental Status: mental status grossly normal DS: Data Data Completed and Pending Completed studies during hospitalization: EXAMINATION: XR chest 1V portable INDICATION: Shortness of breath TECHNIQUE: Portable AP chest at 1024 hours COMPARISON: 01/15/2018 FINDINGS: There are diffuse interstitial and airspace opacities throughout all lung zones
--- NOTE | 2020-06-18 15:40 | PC.NURSE ---
Care from 0700 to 1530 today was provided by Luisa Zhou RN but charted by mistake under Vernell Hugo RN.
--- NOTE | 2020-06-18 15:56 | PCRCNOTE ---
PT HAS OPEN ACCT WITH HER INSURANCE AND [facility] FOR HOME O2 THAT IS STILL ACTIVE, THERE FORE, SHE HAS TO USE [facility], NOT [facility] AT THIS TIME. [facility] WILL BRING UP A [facility]SP[facility] HOME AND THEY WILL ARRANGE HOME O2. PHONE # IS [phone]- [facility]
--- NOTE | 2020-06-19 08:34 | PCRCNOTE ---
[place] Patient called this AM. and stated that patient didnt want the O2 from them, she wanted to be set up thru [facility], so that she can have a portable O2 concentrator. [facility] stated that [facility] cannot set her up because they cannot bill for anything, due to a contract already out with [place] [facility]. and they will be able to set her up with POC, it will take approx 30 days. She said she doesn't want tanks. After this phone call, [facility] has been unable to contact her, and unable to set up any O2. [facility] will continue to try to contact patient to set up home O2.
== END 2020-06-18 18:44 | disposition home or self-care (01) | DRG 291 ==
LOC: ANHED 12:21 → ANHIMU 14:18 → ANH3MEDSUR 06-18 12:02 → ANHIMU 06-22 15:04
PROVIDERS: Admitting Provider Family Medicine; Emergency Provider Emergency Medicine; Visit Provider Internal Medicine
DX: I13.2 Hypertensive heart and chronic kidney disease with heart failure and with stage 5 chronic kidney disease, or end stage renal disease (principal); N18.6 End stage renal disease; J96.21 Acute and chronic respiratory failure with hypoxia; I50.9 Heart failure, unspecified; E11.22 Type 2 diabetes mellitus with diabetic chronic kidney disease; Z99.2 Dependence on renal dialysis; D64.9 Anemia, unspecified; G47.33 Obstructive sleep apnea (adult) (pediatric); J44.9 Chronic obstructive pulmonary disease, unspecified; Z79.899 Other long term (current) drug therapy; Z79.01 Long term (current) use of anticoagulants; Z91.19 Patient's noncompliance with other medical treatment and regimen
CPT/HCPCS: 36415; 71045; 80048; 80053; 83880; 84484; 85025; 93005; 94618; 94640; 97110; 97116; 97161; 97166; 99285; A9270; G0257; G0378; J1940; J7030; Q5106

== ENCOUNTER 2020-08-31 09:03 | Observation (INO) | payer MEDICARE, SELFPAY ==
[2020-08-31] VITALS (18 sets, daily range): BP systolic 75–101; BP diastolic 37–65; PULSE 54–108; RESP 14–25; TEMP 36.3–36.7; O2SAT 94–100
--- NOTE | ~2020-08-31 | XR_ITS ---
XR chest 2V DATE: 08/31/2020 09:29 INDICATION: Chest pain. Congestive heart failure. TECHNIQUE: AP and lateral views COMPARISON: 06/16/2020 portable AP chest FINDINGS: Cardiomegaly. Left ventricular enlargement. No pulmonary infiltrate or consolidation, pleural effusion or pulmonary vascular congestion or pneumo thorax is detected. Degenerative changes of the thoracic and lumbar spine. IMPRESSION: Cardiomegaly, left ventricular enlargement No active pulmonary disease; resolution of extensive bilateral pulmonary infiltrates since 06/16/2020 Reviewed, dictated and finalized at location B. IMPRESSION: Cardiomegaly, left ventricular enlargement No active pulmonary disease; resolution of extensive bilateral pulmonary infilt rates since 06/16/2020
--- NOTE | ~2020-08-31 | US_ITS ---
EXAMINATION: US venous doppler [facility] DATE: 09/01/2020 09:03 INDICATION: Lower limb swelling TECHNIQUE: Grayscale ultrasound images without and with compression and Doppler ultrasound images of the bilateral lower extremity veins were obtained. COMPARISON: None. FINDINGS: The visualized portions of right common femoral vein, profunda (deep) femoral vein, femoral vein, pop liteal vein, posterior tibial veins, peroneal veins, gastrocnemius vein and greater saphenous vein ou tflow are patent. The visualized portions of left common femoral vein, profunda femoral vein, femoral vein, popliteal v ein, posterior tibial veins, peroneal veins, gastrocnemius vein and greater saphenous vein outflow ar e patent. IMPRESSION: 1. No deep venous thrombosis in either lower limb. Reviewed, dictated and finalized at location A.
--- NOTE | 2020-08-31 09:13 | ECG_ITS ---
Measurements Intervals [place] Rate: 76 P: AR: 0 QRS: -38 QRSD: 130 T: 124 QT: 445 QTc: 500 Interpretive Statements SINUS RHYTHM WITH SINUS ARRHYTHMIA ATRIAL PREMATURE COMPLEX LEFT AXIS DEVIATION LEFT BUNDLE BRANCH BLOCK BASELINE ARTIFACT- I, II, III, AVR, AVF, V2-V6 ABNORMAL ECG Electronically Signed On 08-31-2020 9:20:34 CDT by Heath Grande D.O.
--- NOTE | 2020-08-31 09:50 | ED.CHESTPAIN ---
HPI - Chest Pain General Chief Complaint: Chest Pain Stated Complaint: CP,SOB COMPLETED DIALYSIS Time Seen by Provider: 08/31/20 09:21 Source: patient Mode of arrival: wheelchair Limitations: no limitations History of Present Illness HPI narrative: This is a 65-year-old female that presents to the emergency department for shortness of breath since this morning. Reports she started to feel short of breath prior to dialysis. This has been ongoing since. She has intermittent chest tightness associated with this. No known alleviating or exacerbating factors. Reports she feels like she is once again fluid overloaded. She was admitted here for this recently as well as [place]. Denies fever, cough, or lower extremity edema. Related Data Home Medications Medication Instructions Recorded Confirmed apixaban 2.5 mg tablet 2.5 mg PO BID 03/24/20 08/31/20 fluoxetine 20 mg capsule 20 mg PO DAILY 03/24/20 08/31/20 Dialyvite 800 1 tablet PO DAILY 06/16/20 08/31/20 Flovent HFA 2 puff INHALATION BID 06/16/20 08/31/20 Linzess 145 mcg PO DAILY PRN 06/16/20 08/31/20 calcium acetate(phosphat bind) 1,334 mg PO TIDWM 06/16/20 08/31/20 lanthanum 1,000 mg PO TIDWM 06/16/20 08/31/20 metoprolol succinate 12.5 mg PO BID 06/16/20 08/31/20 montelukast 10 mg PO HS 06/16/20 08/31/20 omeprazole 20 mg PO BID 06/16/20 08/31/20 ondansetron HCl 4 mg PO DAILY PRN 06/16/20 08/31/20 rosuvastatin 5 mg PO DAILY 06/16/20 08/31/20 trazodone 50 mg PO HS PRN 06/16/20 08/31/20 midodrine 20 mg PO TID 08/31/20 08/31/20 prednisone 5 mg PO DAILY 08/31/20 08/31/20 Allergies Allergy/AdvReac Type Severity Reaction Status Date / Time lisinopril Allergy Unknown Unknown Verified 06/18/20 16:28 propoxyphene Allergy Unknown Unknown Verified 06/18/20 16:28 valsartan Allergy Unknown lost voice Verified 06/18/20 16:28 Review of Systems Review of Systems: Narrative: CONSTITUTIONAL: Denies fever CARDIOVASCULAR: Reports chest pain. Denies edema. RESPIRATORY: Reports dyspnea. Denies cough All systems reviewed & are unremarkable except as noted in HPI and below PMFSH Past Medical History Medical History (Updated 08/31/20 @ 13:02 by Vidya Cochran PA-C) Anxiety Asthma Chronic anemia History of blood transfusions. Chronic anticoagulation Combined systolic and diastolic congestive heart failure Echo 10/2012: severe LV enlargement, moderate LV dysfunction with wall motion abnormality at the inferior basal segment, EF 44%, grade 2 diastolic dysfunction. Coronary artery disease Deep venous thrombosis (02/2013) Diverticulosis End-stage renal disease on hemodialysis (09/2009) Gastroesophageal reflux disease Gout Hyperlipidemia Hypotension On midodrine. Hypothyroidism Kidney stones Non-ischemic cardiomyopathy Negative cardiac catheterization showing no obstructive coronary disease in 2003 at [place]. EF at that time was 20% but has improved to 54% in 02/2015. Obstructive sleep apnea Paroxysmal atrial fibrillation Peptic ulcer (07/2003) Renal osteodystrophy Thyroid disorder Type II diabetes mellitus Complicated by peripheral neuropathy and nephropathy. Surgical History Surgical History (Updated 08/31/20 @ 12:56 by Vidya Cochran PA-C) History of angioplasty History of cardiac catheterization (08/20/13) Normal coronary arteries per Dr. Oliveros at [place]. History of cardiac radiofrequency ablation (1993) For SVT. History of section History of cholecystectomy (2014) History of colonoscopy with polypectomy History of cystoscopy (03/2012) History of hysterectomy (1993) History of mandibular surgery (1987) For TMJ. History of myomectomy History of parathyroidectomy History of sleeve gastrectomy (2013) Status post creation of arteriovenous fistula Left forearm. Family History Family History Mother Hypertension Family history of congestive heart failure Family history of congeni
[2020-08-31 10:16] LABS: Basophils Absolute Auto 0.1 K/mm3 (0.0-0.1); Basophils Percent Auto 0.5 % (0.2-1.2); Eosinophils Absolute Auto 0.1 K/mm3 (0-0.3); Eosinophils Percent Auto 0.7 % (0-4.4); Hematocrit 36.9 % (37.0-47.0); Hemoglobin 11.3 g/dL (12.0-15.0); Immature Granulocyte Absolute 0.09 K/mm3 (0.00-0.031); Immature Granulocyte Percent A 0.8 % (0-0.5); Lymphocytes Absolute Auto 3.59 K/mm3 (0.9-3.2); Lymphocytes Percent Auto 33.4 % (18.3-44.2); Mean Corpuscular HGB Conc 30.6 g/dl (32-36); Mean Corpuscular Hemoglobin 28.9 pg (26-34); Mean Corpuscular Volume 94.4 fl (80-100); Mean Platelet Volume 9.4 fl (7.4-10.4); Monocytes Absolute Auto 0.8 K/mm3 (0.1-0.6); Monocytes Percent Auto 7.1 % (2.6-8.5); Neutrophils Absolute Auto 6.2 K/mm3 (1.3-6.7); Neutrophils Percent Auto 57.5 % (45.5-73.1); Nucleated Red Blood Cells Perc 0.2 % (0.0-0.2); Platelet Count Result 276 k/mm3 (150-375); Red Blood Count 3.91 M/mm3 (4.2-5.4); Red Cell Distribution Width 16.5 % (11.5-14.5); White Blood Count 10.8 K/mm3 (4.5-10.0)
[2020-08-31 10:28] LABS: Anion Gap 16 mmol/L (8-16); Blood Urea Nitrogen 25 mg/dL (7-17); Calcium 9.8 mg/dL (8.4-10.2); Carbon Dioxide 29 mmol/L (22-30); Chloride 92 mmol/L (98-107); Estimated CRCL calculation 9 ml/min; Estimated Glomerular Filt Rate 9; Glucose 85 mg/dL (65-105); Potassium 3.4 mmol/L (3.4-5.0); Sodium 137 mmol/L (137-145)
[2020-08-31 10:30] LABS: Prothrombin Time 13.2 Seconds (11.1-14.7)
[2020-08-31 10:32] LABS: Partial Thromboplastin Time 33.6 SECONDS (22.3-36.8)
[2020-08-31 10:44] LABS: NT Pro B Type Natriuretic Pept 6420 pg/mL (5-100); Troponin I 0.069 ng/mL (0.000-0.034)
[2020-08-31 10:59] LABS: Alveolar/Arterial O2 Gradient 23.5 mmHg; Base Excess ABG 4.7 mEq/l (+/-2.0); Carboxyhemoglobin 0.5 % THb (0-2.0); Device ROOM AIR; Fractional Inspired Oxygen 21 %; HCO3 ABG 29.4 mEq/l (22.0-26.0); Methemoglobin ABG 0.1 %THb (0-1.5); Oxygen Content ABG 16.1 %vol (16.0-22.0); Oxygen Saturation ABG 95.2 % (95.0-100.0); Oxyhemoglobin 93.7 % THb (90.0-100.0); PCO2 ABG 44.1 mmHg (35.0-45.0); PO2 ABG 73.4 mmHg (80.0-100.0); Reduced Hemoglobin 5.7 %THb (0-5.0); Site Drawn RIGHT BRACHIAL; Total Hemoglobin 12.2 g/dL (12.0-18.0); pH ABG 7.442 (7.350-7.450)
--- NOTE | 2020-08-31 12:45 | PM.IMHP ---
H&P: HPI History of Present Illness Date/Time: 08/31/20 12:25 Chief Complaint: Chest pain and shortness of breath. Narrative: This is a 65-year-old female with multiple medical problems including end-stage renal disease on hemodialysis, nonischemic cardiomyopathy, paroxysmal atrial fibrillation, obstructive sleep apnea, type 2 diabetes mellitus no longer on medication after weight loss, hypothyroidism, and several other comorbidities who presented to the emergency department earlier today for evaluation of chest pain shortness of breath. She had a full dialysis treatment today and she is near her dry weight however she started to feel short of breath not long after her treatment. She was also experiencing some midsternal chest tightness that has been intermittent since dialysis. It sounds as though that occurs with dialysis on occasion but not very often. In addition to the shortness of breath and chest tightness she had nausea was lasted approximately 20 minutes before resolving on its own. At the time my evaluation she is not having any chest pain or shortness of breath. She denies fever, chills, sweats, pleuritic pain, palpitations, nausea, vomiting, and sweats. Of note the patient has been hospitalized at [facility] in [place] a couple of times in the last several months for volume overload to the point where she was having dialysis treatments almost daily in the hospital. Review of Systems Review of Systems: Narrative: Twelve systems were reviewed with pertinent positives and negatives as per HPI. No fever, chills, or sweats. No recent cold or flu symptoms. No exposure to those positive for COVID-19. She is fully vaccinated for COVID. She denies orthopnea, PND, and any significant lower extremity edema at this time. [facility] Past Medical History Medical History (Updated 08/31/20 @ 23:01 by Vidya Cochran PA-C) Anxiety Asthma Chronic anemia History of blood transfusions. Chronic anticoagulation Chronic obstructive pulmonary disease On low-dose prednisone. Combined systolic and diastolic congestive heart failure Echo 10/2012: severe LV enlargement, moderate LV dysfunction with wall motion abnormality at the inferior basal segment, EF 44%, grade 2 diastolic dysfunction. Deep venous thrombosis (02/2013) Diverticulosis End-stage renal disease on hemodialysis (09/2009) Gastroesophageal reflux disease Gout Hyperlipidemia Hypotension On midodrine. Hypothyroidism Kidney stones Non-ischemic cardiomyopathy Negative cardiac catheterization showing no obstructive coronary disease in 2003 at [place]. EF at that time was 20% but has improved to 54% in 02/2015. Obstructive sleep apnea Paroxysmal atrial fibrillation Peptic ulcer (07/2003) Renal osteodystrophy Type II diabetes mellitus Complicated by peripheral neuropathy and nephropathy. Surgical History Surgical History (Updated 08/31/20 @ 12:56 by Vidya Cochran PA-C) History of angioplasty History of cardiac catheterization (08/20/13) Normal coronary arteries per Dr. Oliveros at [place]. History of cardiac radiofrequency ablation (1993) For SVT. History of section History of cholecystectomy (2014) History of colonoscopy with polypectomy History of cystoscopy (03/2012) History of hysterectomy (1993) History of mandibular surgery (1987) For TMJ. History of myomectomy History of parathyroidectomy History of sleeve gastrectomy (2013) Status post creation of arteriovenous fistula Left forearm. Family History Family History Mother Hypertension Family history of congestive heart failure Family history of congenital heart disease Family history of arthritis Family history of kidney disease Family history of chronic obstructive pulmonary disease Father Carcinoma of colon Sibling Family history of diabetes mellitus in first degree relative Grandparent Family history of congestive heart fail
--- NOTE | 2020-08-31 13:38 | ADMGEN ---
This patient, Donya Tobin, was admitted to IMU Room 214-01. Patient/family oriented to hospital policies and general routines including ID bracelet, bed and alarms, visiting hours, pain management, procedures, bathroom and other care routines, personal items, smoking policy, room service/diet, and visiting hours. Information on how to activate the Rapid Response Team has been discussed. Patient/Family are encouraged to report perceived risks to care and to ask questions if they do not understand what they are told or what they should do.
--- NOTE | 2020-08-31 15:54 | PM.CNNEP ---
Assessment and Plan Assessment and plan (1) End stage renal disease: Code(s): N18.6 - End stage renal disease Status: Chronic Assessment and Plan: HD today already so plan next treatment on Monday follow electrolytes, volume status, and clearance (2) Shortness of breath: Code(s): R06.02 - Shortness of breath Status: Acute Assessment and Plan: multifactorial issue: - reactive airway disease - mild volume overload(?) - LENORA - chronic heart failure - anemia follow symptoms for now supportive therapy (3) Chest pain: Qualifiers: Chest pain type: unspecified Qualified Code(s): R07.9 - Chest pain, unspecified Code(s): R07.9 - Chest pain, unspecified Status: Acute Assessment and Plan: follow troponins recent interventions already noted follow trend of symptoms Cardiology consulted (4) Hypotension: Code(s): I95.9 - Hypotension, unspecified Status: Chronic Assessment and Plan: chronic issues at baseline on high dose midodrine therapy (5) Chronic anemia: Code(s): D64.9 - Anemia, unspecified Status: Chronic Assessment and Plan: due to ESRD Epogen with HD follow trend of H/H Will continue to follow. History of Present Illness Reason for Consult Consult date: 08/31/20 Reason for consult: end stage renal disease Chief Complaint Chief complaint: Chest pain/elevated troponin History of Present Illness Narrative: The patient ia a 65-year-old female with multiple medical problems as outlined below who presented to the [facility] ER earlier today for evaluation of chest pain and shortness of breath. The patient was at her regularly scheduled dialysis treatment earlier today and finished her treatment but then suddenly became /felt short of breath afterwards. Associated with a mild shortness breath was some midsternal chest tightness that apparently had been present throughout the dialysis treatment although she did not tell anyone this. Other symptoms that presented itself not too long after included some nausea that seem to resolve on its own. Given the symptoms, she presented to the emergency room for further evaluation. Workup and evaluation emergency room demonstrated the patient to be hemodynamically stable and in no acute distress. She denies any further shortness of breath, chest pain or any other subjective symptoms with regard to fevers, chills, night sweats, palpitations, diarrhea, vomiting, or lightheadedness. Routine blood test demonstrated labs consistent with her known history of end-stage renal disease and her chest x-ray did show any significant evidence of volume overload or pleural effusions. Nonetheless, given her extensive history as noted, she was admitted the hospital for further evaluation and treatment. It should be noted that she has been hospitalized several times at multiple hospitals including [facility], [place] as well as [facility] in [place] for shortness of breath that was thought to be secondary to a combination of mild volume overload in conjunction with a significant viral pneumonia/bronchitis. Renal consultation was requested due to her end-stage renal disease. The patient normally dialyzes on a Monday, Monday, Monday schedule under the care of Dr. Jc Moreau at [facility]. She is compliant with her dialysis treatments and as already mentioned, tends to be quite careful in terms of her fluid intake. Her standard monthly CKD labs show relative stability in general and as already mentioned, she is quite compliant with her dialysis treatments as well. At this time, the patient feels quite well and does not appear to be in acute distress. [facility] Past Medical History Medical History (Updated 09/13/20 @ 14:19 by Nickie Squires MD) Anxiety Asthma Chron
--- NOTE | 2020-08-31 16:44 | PM.CNCAR ---
Assessment and Plan Additional Plan 65-year-old woman with a history of nonischemic cardiomyopathy which is essentially resolved over the years with medical treatment and ablation of her atrial arrhythmias. She is known not to have any coronary artery disease. Her troponin levels are being drawn upon this admission they are consistent with her chronic kidney disease. They are not consistent with or suggestive of an acute coronary syndrome. Since she is known to have angiographically non diseased coronary arteries at this time I do not recommend pursuing any evaluation of this while she is here at [facility]. She has active cardiology follow-up at [facility] and so after discharge follow-up in our office will not be anticipated. Thuan Garcia MD [facility] History of Present Illness History of Present Illness Consult date/time: 08/31/20 16:44 Reason For Visit: Chest pain/elevated troponin Narrative: This is a 65-year-old woman I am seeing at the request of the hospitalist because of troponinemia. Patient is unknown to me prior to this consultation but is known to a strap buckler in a couple of other practices in [place]. According to the chart she has a history of end-stage renal disease and has been on I hemodialysis for 11-12 years. She also has a history of a significant nonischemic cardiomyopathy. She has been followed by cardiologists of the [place] [facility] and now is following with a strap buckler at [facility] in [place]. She has a history of a nonischemic myopathy back in 2003 at which time she was found to have severe left ventricular systolic dysfunction and catheterization which was done showed non diseased coronary arteries. She also had a history of atrial fibrillation / atrial flutter and was managed by the positions of [facility] vascular. According to their records she did very well following medical treatment and ablation of her arrhythmias and had dramatic improvement in her left ventricular systolic function and has been stable for a number of years since then. She continues to follow with her physician at [facility] and she has been told that the condition of her heart has been stable. At 1 time she had a very low ejection fraction of about 20% which essentially normalized. She came into the hospital this morning from the emergency room feeling somewhat short of breath prior to following hemodialysis. She thought she was somewhat volume overloaded and was admitted for this concern. Troponin levels were checked for some reason and they are modestly elevated but they are not rising falling they are all flat and consistent with a patient with end-stage renal disease. Because of these values however this consultation has been requested. She appears to be perfectly comfortable lying in bed and does not have any active complaints. She is getting phlebotomy for another another troponin sample. She states that Dr. Jc Moreau manages her dialysis for number of years. Electrocardiogram shows sinus rhythm with some atrial ectopic activity and an intraventricular conduction delay with some nonspecific T-wave changes there are no acute ST segment changes and once again she is not reporting any chest pain that sounds ischemic. She does not have any orthopnea PND or lower extremity edema. Her chest x-ray to my interpretation shows some very modest pulmonary vascular congestion but dramatically better than the previous 1 in the chart from the late part of May. Review of Systems Constitutional: Constitutional: Reports lethargy Eyes: Eyes: Reports no additional eye complaints ENT: Reports system reviewed and no additional complaints, except as documented Cardiovascular: Cardiovascular: Reports as per HPI Respiratory: Respiratory: Reports dyspnea Gastrointestinal: Gastrointestinal: Reports no additional gastrointestinal complaints Musculoskeletal: Musculoskeletal: Reports no addit
[2020-08-31 17:08] LABS: Alanine Aminotransferase 18 U/L (4-35); Albumin Level 4.8 g/dL (3.5-5.1); Alkaline Phosphatase 69 U/L (38-126); Aspartate Amino Transferase 33 U/L (14-36); Bilirubin,Total 0.5 mg/dL (0.2-1.3); Magnesium 1.8 mg/dL (1.6-2.3)
[2020-08-31 17:24] LABS: Troponin I 0.062 ng/mL (0.000-0.034)
[2020-08-31] MEDS: CALCIUM ACETATE 667 MG TABLET 1334 MG PO (18:27)
[2020-08-31] MEDS: PANTOPRAZOLE 40 MG TABLET PO (18:27)
[2020-08-31] MEDS: APIXABAN 2.5 MG TABLET PO (18:27)
[2020-08-31] MEDS: MIDODRINE HCL 10 MG TABLET 20 MG PO (18:27)
[2020-08-31] MEDS: METOPROLOL SUCCINATE EXT REL 12.5 MG TABCR PO (22:17)
[2020-08-31] MEDS: MONTELUKAST SODIUM 10 MG TABLET PO (22:18)
[2020-08-31] MEDS: FLUTICASONE PROP 220 MCG (*SP) 12 GM INHALER 2 PUFF INHALATION (22:18)
[2020-08-31] MEDS: ACETAMINOPHEN 325 MG TABLET 650 MG PO (23:14)
[2020-09-01] VITALS (7 sets, daily range): BP systolic 86–94; BP diastolic 42–47; PULSE 67–88; RESP 12–18; TEMP 36.2–36.3; O2SAT 98–100
[2020-09-01] MEDS: FLUoxetine HCL 20 MG CAPSULE PO (09:35)
[2020-09-01] MEDS: VITAMIN B CMPLX/VIT C/FOLIC AC 1 CAPSULE 1 CAP PO (09:36)
[2020-09-01] MEDS: CALCIUM ACETATE 667 MG TABLET 1334 MG PO (09:36)
[2020-09-01] MEDS: MIDODRINE HCL 10 MG TABLET 20 MG PO (09:36)
[2020-09-01] MEDS: predniSONE 5 MG TABLET PO (09:36)
[2020-09-01] MEDS: METOPROLOL SUCCINATE EXT REL 12.5 MG TABCR PO (09:37)
[2020-09-01] MEDS: PANTOPRAZOLE 40 MG TABLET PO (09:37)
[2020-09-01] MEDS: APIXABAN 2.5 MG TABLET PO (09:37)
--- NOTE | 2020-09-01 10:56 | PM.DS ---
DS: Admitting Diagnosis Admitting Diagnosis Admitting Diagnosis: chest pain DS: Discharge Diagnosis Discharge Diagnosis (1) Chest pain: Qualifiers: Chest pain type: unspecified Qualified Code(s): R07.9 - Chest pain, unspecified Code(s): R07.9 - Chest pain, unspecified Status: Acute Assessment and Plan: patient stated that her pain was midsternal and that is reproducible. Patient's troponins were all level. She has some degree of elevation of troponin most likely secondary to her end-stage renal disease. Cardiology has seen the patient and she has a history of nonischemic cardiomyopathy which is essentially resolved over the years with medical management ablation of her atrial arrhythmias. The patient is known to have angio graphically non disease coronary arteries the patient has an appointment with her staff registered nurse at [facility] on . No further workup required from the cardiology group year. (2) Elevated troponin: Code(s): R77.8 - Other specified abnormalities of plasma proteins Status: Acute Assessment and Plan: Her troponins remain level and the patient stated that her chest pain is on and off and is chronic. Her pain is reproducible with palpation of the midsternal chest. (3) End-stage renal disease on hemodialysis: Onset Date: 09/2009 Code(s): N18.6 - End stage renal disease; Z99.2 - Dependence on renal dialysis Status: Acute Assessment and Plan: The patient has end-stage renal disease and does do [facility]. She stated she has had dialysis for the last 11 years. She has dialysis on Monday. The patient has concerns about her blood pressure dropping during dialysis. However she is on midodrine and I explained that she needs to continue with that. (4) Hypotension: Code(s): I95.9 - Hypotension, unspecified Status: Acute Assessment and Plan: Continue with midodrine and monitor blood pressure daily. (5) Chronic obstructive pulmonary disease: Code(s): J44.9 - Chronic obstructive pulmonary disease, unspecified Status: Acute Assessment and Plan: Patient is chronically on prednisone. DS: Summary Hospital Course Reason for hospitalization: chest pain Hospital Course: The is a 65-year-old female patient who came in complaining of chest pain and shortness of breath. She has end-stage renal disease on dialysis Monday and the patient did have dialysis on Monday. The patient stated that her chest pain has been chronic. And that it is goes on and off for many months. Is been intermittent. The patient stated that she is concerned that her blood pressures been dropping during dialysis. The patient is on midodrine. The patient denied any fever chills. No palpitations. The patient sees a staff registered nurse at [facility]. She has an appointment with them onThuday. Patient was seen by the courtesy bus driver while she was here Dr. Squires. patient had been complaining of some leg pains and her venous Dopplers were negative. White count is 10.0. H&H is 9.3 and 36.9. Creatinine is 5.9. Troponin 0.069 and 0.62. Checks x-ray read as cardiomegaly left ventricular enlargement. The patient stated that she is feeling much better today. Time spent discussing smoking cessation with patient: 3 to 10 minutes Status at Discharge Cognitive/behavioral status at discharge: Patient is alert orientated x4. Functional status at discharge: independent ambulation Overall status at discharge: patient is back to baseline Time Spent with Patient Time attestation: Total time spent providing and/or coordinating discharge services: It has taken me approximately 30 minutes to review the chart and discussed with the patient the plan of care and to prepare the paperwork. Time spent: Less than 30 minutes Exam Const: General: cooperative, healthy appearing, comfortable, no acute d
== END 2020-09-01 12:07 | disposition home or self-care (01) ==
LOC: ANHED 12:03 → ANHIMU 19:19
PROVIDERS: Physician Assistant; Admitting Provider Family Medicine; Emergency Provider Emergency Medicine; Visit Provider Internal Medicine
DX: R07.9 Chest pain, unspecified (principal); R77.8 Other specified abnormalities of plasma proteins; I95.9 Hypotension, unspecified; J44.9 Chronic obstructive pulmonary disease, unspecified; R06.02 Shortness of breath; I13.2 Hypertensive heart and chronic kidney disease with heart failure and with stage 5 chronic kidney disease, or end stage renal disease; E11.22 Type 2 diabetes mellitus with diabetic chronic kidney disease; N18.6 End stage renal disease; I50.40 Unspecified combined systolic (congestive) and diastolic (congestive) heart failure; Z99.2 Dependence on renal dialysis; E11.42 Type 2 diabetes mellitus with diabetic polyneuropathy; E11.21 Type 2 diabetes mellitus with diabetic nephropathy; D64.9 Anemia, unspecified; I25.10 Atherosclerotic heart disease of native coronary artery without angina pectoris; E78.5 Hyperlipidemia, unspecified; K21.9 Gastro-esophageal reflux disease without esophagitis; M10.9 Gout, unspecified; E03.9 Hypothyroidism, unspecified; I42.8 Other cardiomyopathies; I48.0 Paroxysmal atrial fibrillation; F41.9 Anxiety disorder, unspecified; G47.33 Obstructive sleep apnea (adult) (pediatric); N25.0 Renal osteodystrophy; Z86.718 Personal history of other venous thrombosis and embolism; Z87.11 Personal history of peptic ulcer disease; Z98.84 Bariatric surgery status; Z79.01 Long term (current) use of anticoagulants
CPT/HCPCS: 36415; 36600; 71046; 80048; 80076; 82375; 82805; 83050; 83735; 83880; 84484; 85025; 85610; 85730; 87040; 93005; 93970; 94660; 99285; A9270; G0378; J7512

== ENCOUNTER 2021-08-09 08:57 | Emergency (ER) | payer MEDICARE, SELFPAY ==
--- NOTE | ~2021-08-09 | CT_ITS ---
EXAMINATION: CT brain wo con DATE: 08/09/2021 10:01 INDICATION: Fall. TECHNIQUE: Computed tomography (CT) of the head was performed without intravenous contrast. The mA wa s adjusted according to patient size. Iterative reconstruction technique was employed. The dose-lengt h product was 605.33 mGy-cm. COMPARISON: Head CT 12/04/2015 FINDINGS: There are scattered areas of low attenuation in the cerebral white matter. There is no intr acranial hemorrhage, acute infarction, or abnormal intracranial mass lesion. The ventricles are liz l in size. The paranasal sinuses are clear. The mastoid air cells are normal. There are likely change s of ocular lens replacement surgeries. IMPRESSION: 1. Stable mild nonspecific cerebral white matter disease, which likely represents chronic small vesse l ischemic disease. Reviewed, dictated and finalized at location A. IMPRESSION: 1. Stable mild nonspecific cerebral white matter disease, which likely represen ts chronic small vessel ischemic disease.
--- NOTE | ~2021-08-09 | CT_ITS ---
EXAMINATION: CT cervical spine wo con DATE: 08/09/2021 10:01 INDICATION: Fall and hypertension. TECHNIQUE: Computed tomography (CT) of the cervical spine was performed without intravenous contrast. Automated exposure control and iterative reconstruction technique were employed. The dose-length pro duct was 476.52 mGy-cm. COMPARISON: 09/12/2014 FINDINGS: Chronic straightening of the normal cervical lordosis. Vertebral body heights are normal. Moderate di sc height loss with degenerative endplate changes at C3-C4, C4-C5 and C5-C6. Severe uncovertebral ost eoarthritis and disc osteophyte complexes resulting in mild central canal and bilateral neural forami nal stenosis at each of these levels. Mild disc height loss at C2-C3 and C6-C7 through T1-T2. Moderat e to severe bilateral upper cervical predominant multilevel facet osteoarthritis. Bilateral carotid a rtery atherosclerotic calcifications. Multiple surgical clips along the thyroid. Mild right apical pl eural-parenchymal scarring. IMPRESSION: 1. Moderate cervical spondylosis. No acute osseous abnormality. Reviewed, dictated and finalized at location B.
--- NOTE | ~2021-08-09 | XR_ITS ---
EXAMINATION: XR wrist LT min 3V DATE: 08/09/2021 09:19 INDICATION: Left wrist pain TECHNIQUE: Posteroanterior, ulnar deviation, oblique, and lateral views of the left wrist were obtain ed. COMPARISON: None available FINDINGS: Bone alignment is normal. There is no fracture. There is moderate osteoarthritis at the fir st carpometacarpal joint. Calcified atherosclerosis is noted. IMPRESSION: 1. Moderate osteoarthritis. Reviewed, dictated and finalized at location A. IMPRESSION: 1. Moderate osteoarthritis.
[2021-08-09 09:03] VITALS: BP 89/60; PULSE 99; RESP 18; TEMP 36.4; O2SAT 99
--- NOTE | 2021-08-09 09:37 | ED.UPPEXIN ---
HPI - Extremity Injury (Upper) General Chief Complaint: Extremity Injury, Upper Stated Complaint: wrist injury Time Seen by Provider: 08/09/21 09:01 Source: RN notes reviewed History of Present Illness HPI narrative: Patient presents emergency department from home for left wrist pain. Patient states that she fell out of her bed yesterday and fell onto her left wrist she states she is had pain in her left wrist across the dorsal aspect since that time. Patient states that she does have some neck pain since she fell out of bed and she is unsure if she hit her head she denies any loss of consciousness she denies chest pain shortness of breath abdominal pain or any other symptoms. The patient states she has a dialysis patient followed by Dr. Moreau she states that dialysis port is on her left arm and they want to ensure she did not have a fracture before using it for dialysis Related Data Home Medications Medication Instructions Recorded Confirmed apixaban 2.5 mg tablet 2.5 mg PO BID 03/24/20 08/31/20 fluoxetine 20 mg capsule 20 mg PO DAILY 03/24/20 08/31/20 calcium acetate(phosphat bind) 667 1,334 mg PO TIDWM 06/16/20 08/31/20 mg capsule fluticasone propionate 220 2 puff inhalation BID 06/16/20 08/31/20 mcg/actuation HFA aerosol inhaler (Flovent HFA) lanthanum 1,000 mg chewable tablet 1,000 mg PO TIDWM 06/16/20 08/31/20 linaclotide 145 mcg capsule 145 mcg PO DAILY PRN Constipation 06/16/20 08/31/20 (Linzess) metoprolol succinate 25 mg 12.5 mg PO BID 06/16/20 08/31/20 tablet,extended release 24 hr montelukast 10 mg tablet 10 mg PO HS 06/16/20 08/31/20 omeprazole 20 mg capsule,delayed 20 mg PO BID 06/16/20 08/31/20 release ondansetron HCl 4 mg tablet 4 mg PO DAILY PRN Nausea 06/16/20 08/31/20 rosuvastatin 5 mg tablet 5 mg PO DAILY 06/16/20 08/31/20 trazodone 50 mg tablet 50 mg PO HS PRN Insomnia 06/16/20 08/31/20 vitamin B complex-vitamin C-folic 1 tablet PO DAILY 06/16/20 08/31/20 acid 0.8 mg tablet (Dialyvite 800) midodrine 10 mg tablet 20 mg PO TID 08/31/20 08/31/20 prednisone 10 mg tablet 5 mg PO DAILY 08/31/20 08/31/20 Allergies Allergy/AdvReac Type Severity Reaction Status Date / Time lisinopril Allergy Unknown Unknown Verified 08/09/21 09:12 propoxyphene Allergy Unknown Unknown Verified 08/09/21 09:12 valsartan Allergy Unknown lost voice Verified 08/09/21 09:12 Review of Systems Review of Systems: Gen.: Denies fevers or chills ENT: Denies congestion Respiratory: Denies shortness of breath or cough CV: Denies chest pain or palpitations GI: Denies abdominal pain nausea, emesis or diarrhea reports chronic renal failure dialysis Musculoskeletal: See HPI Neuro: Denies numbness, tingling, weakness or focal weakness Skin: Denies rash Except as documented, all other systems reviewed and negative [facility] Past Medical History Medical History Anxiety Asthma Chronic anemia History of blood transfusions. Chronic anticoagulation Chronic obstructive pulmonary disease On low-dose prednisone. Combined systolic and diastolic congestive heart failure Echo 10/2012: severe LV enlargement, moderate LV dysfunction with wall motion abnormality at the inferior basal segment, EF 44%, grade 2 diastolic dysfunction. Deep venous thrombosis (02/2013) Diverticulosis End-stage renal disease on hemodialysis (09/2009) Gastroesophageal reflux disease Gout Hyperlipidemia Hypotension On midodrine. Hypothyroidism Kidney stones Non-ischemic cardiomyopathy Negative cardiac catheterization showing no obstructive coronary disease in [address] [facility] [place]. EF at that time was 20% but has improved to 54% in 02/2015. Obstructive sleep apnea Paroxysmal atrial fibrillation Peptic ulcer (07/2003) Renal osteodystrophy Type II diabetes mellitus Complicated by peripheral neuropathy and nephropathy. Surgical History Surgical History (Updated 08/31/20 @ 12:56 by Vidya Cochran,
[2021-08-09 10:30] VITALS: BP 102/69; PULSE 94; RESP 18; O2SAT 100
== END 2021-08-09 10:27 | disposition home or self-care (01) ==
PROVIDERS: Emergency Provider Emergency Medicine
DX: S63.502A Unspecified sprain of left wrist, initial encounter (principal); S16.1XXA Strain of muscle, fascia and tendon at neck level, initial encounter; E11.22 Type 2 diabetes mellitus with diabetic chronic kidney disease; N18.6 End stage renal disease; Z99.2 Dependence on renal dialysis; I50.40 Unspecified combined systolic (congestive) and diastolic (congestive) heart failure; J44.9 Chronic obstructive pulmonary disease, unspecified; I48.0 Paroxysmal atrial fibrillation; E11.21 Type 2 diabetes mellitus with diabetic nephropathy; E11.42 Type 2 diabetes mellitus with diabetic polyneuropathy; I95.9 Hypotension, unspecified; E78.5 Hyperlipidemia, unspecified; E03.9 Hypothyroidism, unspecified; K21.9 Gastro-esophageal reflux disease without esophagitis; M10.9 Gout, unspecified; G47.33 Obstructive sleep apnea (adult) (pediatric); Z86.718 Personal history of other venous thrombosis and embolism; Z87.442 Personal history of urinary calculi; Z87.11 Personal history of peptic ulcer disease; E89.2 Postprocedural hypoparathyroidism; Z98.84 Bariatric surgery status; Z79.01 Long term (current) use of anticoagulants; M19.032 Primary osteoarthritis, left wrist; M47.812 Spondylosis without myelopathy or radiculopathy, cervical region; W06.XXXA Fall from bed, initial encounter
CPT/HCPCS: 70450; 72125; 73110; 99284

== ENCOUNTER 2021-08-27 09:09 | Outpatient (CLI) | payer MEDICARE, SELFPAY ==
--- NOTE | ~2021-08-27 | XR_ITS ---
XR wrist LT min 3V DATE: 08/27/2021 11:01 INDICATION: Left wrist pain following a fall TECHNIQUE: 4 views COMPARISON: 08/27/2021 left hand 08/09/2021 left wrist FINDINGS: There is osteopenia. There is moderately prominent osteoporotic change at the first carpometacarpal joint. No fracture or dislocation, periosteal reaction or bone destruction is detected. Prominent arterial calcification including metatarsal and digital artery calcifications, suggesting d iabetes or less likely hyperparathyroidism or other hypercalcemic state. IMPRESSION: Osteopenia Osteoarthritis at first carpometacarpal joint Very prominent arterial calcification, most likely due to diabetes Reviewed, dictated and finalized at location A.
--- NOTE | ~2021-08-27 | XR_ITS ---
EXAMINATION: XR hand LT min 3V INDICATION: Left hand pain TECHNIQUE: Three views of the left hand are obtained. COMPARISON: None available FINDINGS: Bone alignment is normal. There is no fracture. There is mild to moderate polyarticular ost eoarthritis. Calcified atherosclerosis is noted. The soft tissues are otherwise unremarkable. IMPRESSION: 1. Polyarticular osteoarthritis without acute osseous abnormality. Reviewed, dictated and finalized at location B.
--- NOTE | ~2021-08-27 | XR_ITS ---
XR knee LT 2V 08/27/2021 11:01 Indication: Left knee pain Procedure: 2 views left knee Comparison: 06/07/2012 Findings: There is mild osteoarthritis of the left knee. No fracture, subluxation or dislocation. No significant soft tissue abnormality. Impression: 1: No acute fracture. Reviewed, dictated and finalized at location A. Impression: 1: No acute fracture.
== END 2021-08-27 09:10 | disposition home or self-care (01) ==
PROVIDERS: Referring Provider Internal Medicine Nephrology
DX: M25.562 Pain in left knee (principal); R29.6 Repeated falls; S69.92XA Unspecified injury of left wrist, hand and finger(s), initial encounter; M85.89 Other specified disorders of bone density and structure, multiple sites; M19.032 Primary osteoarthritis, left wrist; I70.208 Unspecified atherosclerosis of native arteries of extremities, other extremity; M19.042 Primary osteoarthritis, left hand
CPT/HCPCS: 73110; 73130; 73560

== ENCOUNTER 2021-10-13 09:23 | Outpatient (CLI) | payer MEDICARE, SELFPAY ==
--- NOTE | ~2021-10-13 | MM_ITS ---
EXAMINATION: MM screening [facility] BI w abdulaziz HISTORY: Screening TECHNIQUE: Craniocaudal and mediolateral oblique 3-D tomosynthesis images were obtained and synthetic 2-D images were generated. CAD analysis was submitted and interpreted. COMPARISON: Comparison to multiple prior studies sequentially, with oldest reviewed study dated 08/08. BREAST PARENCHYMAL COMPOSITION: There are scattered areas of fibroglandular density. FINDINGS: There are benign bilateral breast calcifications. There is no evidence of suspicious mass, calcification, or architectural distortion to suggest malignancy in either breast. There has been no suspicious interval change. IMPRESSION: 1. No mammographic evidence of malignancy. 2. Recommend routine screening mammography in one year. BI-RADS Category 2: Benign finding(s). Reviewed, dictated and finalized at location A.
== END 2021-10-13 09:24 | disposition home or self-care (01) ==
DX: Z12.31 Encounter for screening mammogram for malignant neoplasm of breast (principal)
CPT/HCPCS: 77063; 77067

== ENCOUNTER 2022-03-16 09:05 | Emergency (ER) | payer MEDICARE, SELFPAY ==
[2022-03-16 09:17] VITALS: BP 126/63; PULSE 89; RESP 20; TEMP 37; O2SAT 100
--- NOTE | 2022-03-16 09:19 | ED.NECK ---
HPI - Neck Pain/Injury General Chief Complaint: Neck Pain/Injury Stated Complaint: Right sided muscle spasms since yesterday Time Seen by Provider: 03/16/22 09:11 History of Present Illness HPI Narrative: 66-year-old female presents to the emergency room for evaluation of right-sided cervical spine pain since yesterday. Patient states that pain is worse when attempting to rotate her neck in either direction. Denies any trauma or injury. Patient states she has been treated for chronic back pain. Has been placed on cyclobenzaprine with no relief of her symptoms. Denies any shortness of breath difficulty breathing. Related Data Home Medications Medication Instructions Recorded Confirmed apixaban 2.5 mg tablet 2.5 mg PO BID 03/24/20 08/31/20 fluoxetine 20 mg capsule 20 mg PO DAILY 03/24/20 08/31/20 calcium acetate(phosphat bind) 667 1,334 mg PO TIDWM 06/16/20 08/31/20 mg capsule fluticasone propionate 220 2 puff inhalation BID 06/16/20 08/31/20 mcg/actuation HFA aerosol inhaler (Flovent HFA) lanthanum 1,000 mg chewable tablet 1,000 mg PO TIDWM 06/16/20 08/31/20 linaclotide 145 mcg capsule 145 mcg PO DAILY PRN Constipation 06/16/20 08/31/20 (Linzess) metoprolol succinate 25 mg 12.5 mg PO BID 06/16/20 08/31/20 tablet,extended release 24 hr montelukast 10 mg tablet 10 mg PO HS 06/16/20 08/31/20 omeprazole 20 mg capsule,delayed 20 mg PO BID 06/16/20 08/31/20 release ondansetron HCl 4 mg tablet 4 mg PO DAILY PRN Nausea 06/16/20 08/31/20 rosuvastatin 5 mg tablet 5 mg PO DAILY 06/16/20 08/31/20 trazodone 50 mg tablet 50 mg PO HS PRN Insomnia 06/16/20 08/31/20 vitamin B complex-vitamin C-folic 1 tablet PO DAILY 06/16/20 08/31/20 acid 0.8 mg tablet (Dialyvite 800) midodrine 10 mg tablet 20 mg PO TID 08/31/20 08/31/20 prednisone 10 mg tablet 5 mg PO DAILY 08/31/20 08/31/20 Allergies Allergy/AdvReac Type Severity Reaction Status Date / Time lisinopril Allergy Unknown Unknown Verified 03/16/22 09:20 propoxyphene Allergy Unknown Unknown Verified 03/16/22 09:20 valsartan Allergy Unknown lost voice Verified 03/16/22 09:20 Review of Systems Review of Systems: CONSTITUTIONAL: Denies fever, chills, or sweats. EYES: Denies visual changes, redness, or discharge. ENT: Denies rhinorrhea, congestion, sore throat, or otalgia. CARDIOVASCULAR: Denies chest pain, palpitations, or edema. RESPIRATORY: Denies cough or dyspnea. GASTROINTESTINAL: Denies abdominal pain, nausea, vomiting, or diarrhea. GENITOURINARY: Denies dysuria or hematuria. SKIN: Denies rash or itching. MUSCULOSKELETAL: Reports neck pain NEUROLOGIC: Denies headache, numbness, dizziness, or weakness. PSYCHIATRIC: Denies anxiety or depression. [facility] Past Medical History Medical History Anxiety Asthma Chronic anemia History of blood transfusions. Chronic anticoagulation Chronic obstructive pulmonary disease On low-dose prednisone. Combined systolic and diastolic congestive heart failure Echo 10/2012: severe LV enlargement, moderate LV dysfunction with wall motion abnormality at the inferior basal segment, EF 44%, grade 2 diastolic dysfunction. Deep venous thrombosis (02/2013) Diverticulosis End-stage renal disease on hemodialysis (09/2009) Gastroesophageal reflux disease Gout Hyperlipidemia Hypotension On midodrine. Hypothyroidism Kidney stones Non-ischemic cardiomyopathy Negative cardiac catheterization showing no obstructive coronary disease in 2003 at [place]. EF at that time was 20% but has improved to 54% in 02/2015. Obstructive sleep apnea Paroxysmal atrial fibrillation Peptic ulcer (07/2003) Renal osteodystrophy Type II diabetes mellitus Complicated by peripheral neuropathy and nephropathy. Surgical History Surgical History History of angioplasty History of cardiac catheterization (08/20/13) Normal coronary arteries per Dr. Oliveros at
== END 2022-03-16 09:53 | disposition home or self-care (01) ==
LOC: ANHED 09:30
PROVIDERS: Emergency Provider Nurse Practitioner Family
DX: M62.838 Other muscle spasm (principal); F41.9 Anxiety disorder, unspecified; J45.909 Unspecified asthma, uncomplicated; Z79.01 Long term (current) use of anticoagulants; Z86.718 Personal history of other venous thrombosis and embolism; I13.2 Hypertensive heart and chronic kidney disease with heart failure and with stage 5 chronic kidney disease, or end stage renal disease; E11.22 Type 2 diabetes mellitus with diabetic chronic kidney disease; N18.6 End stage renal disease; I50.82 Biventricular heart failure; E78.5 Hyperlipidemia, unspecified; E03.9 Hypothyroidism, unspecified; I48.91 Unspecified atrial fibrillation; K21.9 Gastro-esophageal reflux disease without esophagitis
CPT/HCPCS: 99283

== ENCOUNTER 2022-05-09 08:53 | Inpatient (IN) | payer MEDICARE, SELFPAY ==
[2022-05-09] VITALS (61 sets, daily range): BP systolic 116–147; BP diastolic 63–97; PULSE 89–109; RESP 19–46; TEMP 36.3–36.6; O2SAT 85–100
--- NOTE | ~2022-05-09 | XR_ITS ---
EXAMINATION: XR chest 1V portable Exam Date/Time: 05/10/2022 17:15 CDT HISTORY: hypoxia Comparison: 05/09/2022. RESULT: Lines, tubes, and devices: None. Lungs and pleura: Similar overall degree of bilateral patchy airspace disease, slightly improved aer ation in the left lung base, increasing opacities in the right mid and lower lung. Slightly decreased vascular congestion. Cardiomediastinal silhouette: Stable. Other: No acute osseous or upper abdominal finding. IMPRESSION: Overall similar bilateral airspace disease, with scattered areas of waxing and waning pulmonary opaci ties that may represent atelectasis or edema. Reviewed, dictated and finalized at location [facility]. IMPRESSION: Overall similar bilateral airspace disease, with scattered areas of waxing and waning pulmonary opacities that may represent atelectasis or edema.
--- NOTE | ~2022-05-09 | XR_ITS ---
EXAMINATION: XR chest 2V DATE: 05/09/2022 10:41 INDICATION: Chest pain, cough and weakness TECHNIQUE: frontal and lateral views of the chest were obtained. COMPARISON: Chest radiograph dated 08/31/2020 FINDINGS: Prominent new patchy airspace opacities throughout both lungs. No pleural effusion or pneumothorax. C ardiomegaly. IMPRESSION: 1. Cardiomegaly with new patchy airspace opacities throughout both lungs which could represent pulmon dillon edema or pneumonia. Reviewed, dictated and finalized at location A. IMPRESSION: 1. Cardiomegaly with new patchy airspace opacities throughout both lungs which could represent pulmonary edema or pneumonia.
--- NOTE | ~2022-05-09 | XR_ITS ---
XR chest 1V portable DATE: 05/12/2022 16:30 INDICATION: Fluid overload versus pneumonia TECHNIQUE: Portable AP chest on 05/12/2022 at 1620 hours COMPARISON: 05/12/2022 CT chest 05/13/2019 portable AP chest FINDINGS: Cardiomegaly. There is pulmonary vascular congestion and redistribution. There are bilatera l pulmonary infiltrates which are most prominent centrally and in the lower lung zones, including. Pr ominent right basilar atelectasis and/or consolidation. Findings suggest congestive heart failure and pulmonary edema. Pneumonia and aspiration are not excluded. No pleural effusion or pneumothorax is evident. Diffuse osteopenia. IMPRESSION: Cardiomegaly, pulmonary vascular congestion, bilateral infiltrates; diffusion diagnosis i ncludes pulmonary edema, pneumonia, aspiration Little interval change since 05/12/2022 Reviewed, dictated and finalized at location A. IMPRESSION: Cardiomegaly, pulmonary vascular congestion, bilateral infiltrates; diffusion diagnosis includes pulmonary edema, pneumonia, aspiration Little interval change since 05/12/2022
--- NOTE | ~2022-05-09 | XR_ITS ---
EXAMINATION: XR chest 1V portable Exam Date/Time: 05/11/2022 17:00 CDT HISTORY: Hypoxia Comparison: 05/10/2022. RESULT: Lines, tubes, and devices: None. Lungs and pleura: Unchanged patchy areas of bilateral airspace disease, given minor interval changes in technique. Cardiomediastinal silhouette: Stable. Other: No acute osseous or upper abdominal finding. IMPRESSION: Stable bilateral airspace disease. Reviewed, dictated and finalized at location K.
--- NOTE | ~2022-05-09 | XR_ITS ---
EXAMINATION: XR chest 1V portable INDICATION: Hypoxia TECHNIQUE: Portable AP chest at 1110 hours COMPARISON: 05/12/2022 FINDINGS: Cardiomegaly is noted. A mild diffuse interstitial pattern persists with interval improveme nt. There are airspace opacities of the left midlung zone and right lung base. No pleural effusion or pneumothorax. IMPRESSION: 1. Cardiomegaly with improving pulmonary edema. 2. Airspace opacities of the left midlung zone and right lung base, consistent with atelectasis versu s pneumonia. Reviewed, dictated and finalized at location A. IMPRESSION: 1. Cardiomegaly with improving pulmonary edema. 2. Airspace opacities of the left midlung zone and right lung base, consistent with atelectasis versus pneumonia.
--- NOTE | ~2022-05-09 | XR_ITS ---
XR chest 1V portable DATE: 05/09/2022 15:11 INDICATION: Worsening dyspnea TECHNIQUE: Portable upright AP chest on 05/09/2022 at 1504 hours COMPARISON: 05/09/2022 AP and lateral chest at 1035 hours FINDINGS: Cardiomegaly. Aortic arch calcification and aortic unfolding. There is pulmonary vascular congestion and redistribution. There are bilateral predominantly central and lower lung zone infiltrates , suggesting pulmonary edema. Pneumonia and aspiration are not excluded. Osteopenia. IMPRESSION: Bilateral primarily central and lower lung zone infiltrates, chest and pulmonary edema. P neumonia and aspiration are not excluded. The pulmonary infiltrates appear mildly improved since earlier today. Reviewed, dictated and finalized at location B. IMPRESSION: Bilateral primarily central and lower lung zone infiltrates, chest and pulmonary edema. Pneumonia and aspiration are not excluded. The pulmonary infiltrates appear mildly improved since earlier today.
--- NOTE | ~2022-05-09 | XR_ITS ---
XR chest 1V portable DATE: 05/15/2022 15:25 INDICATION: Hypoxia. Pulmonary edema. TECHNIQUE: Portable AP chest on 05/15/2022 at 1519 hours COMPARISON: 05/14/2022 portable AP chest at 1110 hours FINDINGS: Cardiomegaly. Aortic calcification, ectasia. There is mild infiltrate or atelectasis in the mid and lower lung zones. Osteopenia. IMPRESSION: Cardiomegaly, aortic atherosclerosis Mild infiltrate or atelectasis in the mid and lower lung zones Reviewed, dictated and finalized at location A.
--- NOTE | ~2022-05-09 | XR_ITS ---
Portable chest x-ray Comparison: 05/11/2022 Clinical History: Fluid overload, pneumonia Findings: Extensive hazy bilateral pulmonary disease is again present, essentially unchanged. No def inite pleural effusion. Cardiomediastinal silhouette is stable. Bones and soft tissues are unremarka ble. Impression: Stable extensive pulmonary disease. Correlate for pulmonary edema versus infection. Reviewed, dictated and finalized at [facility]. Impression: Stable extensive pulmonary disease. Correlate for pulmonary edema versus infect ion.
--- NOTE | ~2022-05-09 | CT_ITS ---
CT Scan of the Chest without Contrast: Clinical Indication: Fluid overload versus pneumonia Technique: Contiguous sections were acquired throughout the chest without intravenous contrast. Dose reduction technique was used on this scan by utilizing automated exposure control and iterative recon struction technique. The dose-length product (DLP) was 247.08 mGy-cm. COMPARISON: 11/02/2012 Findings: There is no evidence of any significant mediastinal, hilar or axillary lymphadenopathy. There are ath erosclerotic calcifications of the aorta. Mild coronary artery calcifications are present. There is no evidence of pleural or pericardial effusion. There is diffuse groundglass pulmonary disease bilaterally. There is mild interstitial thickening in the anterior upper lobes bilaterally, with possible small amount of aspirated material or pleural saranya cifications. Images through the upper abdomen reveal small hiatal hernia with probable prior bariatric surgery. Impression: Diffuse groundglass pulmonary disease. This is nonspecific, and could reflect pulmonary edema, pneumo saturnino, or other inflammatory conditions. Clinical correlation is required. Probable chronic interstitial change in the anterior upper lobes bilaterally, with possible small terry unt of aspirated material. Reviewed, dictated and finalized at [facility]. Impression: Diffuse groundglass pulmonary disease. This is nonspecific, and could reflect p ulmonary edema, pneumonia, or other inflammatory conditions. Clinical correlati on is required. Probable chronic interstitial change in the anterior upper lobes bilaterally, w ith possible small amount of aspirated material.
--- NOTE | 2022-05-09 09:09 | ECG_ITS ---
Measurements Intervals [place] Rate: 90 P: 62 ME: 172 QRS: -53 QRSD: 134 T: 82 QT: 373 QTc: 459 Interpretive Statements SINUS RHYTHM ATRIAL AND VENTRICULAR PREMATURE COMPLEXES LEFT AXIS DEVIATION LEFT BUNDLE BRANCH BLOCK BASELINE ARTIFACT- I, II, AVR, AVL, V4-V6 ABNORMAL ECG COMPARED TO ECG 08/31/2020 09:17:33 NO SIGNIFICANT CHANGES Electronically Signed On 05-09-2022 14:53:30 CDT by Heath Grande D.O.
--- NOTE | 2022-05-09 09:42 | ED.SOB ---
HPI - SOB/Dyspnea General Chief Complaint: Chest Pain <Rimma Talbert PA-C - Last Filed: 05/09/22 14:26> Stated Complaint: cp <Rimma Talbert PA-C - Last Filed: 05/09/22 14:26> Time Seen by Provider: 05/09/22 08:58 <Rimma Talbert PA-C - Last Filed: 05/09/22 14:26> Source: patient <LISBET Naylor Last Filed: 05/09/22 14:26> Mode of arrival: EMS <LISBET Naylor Last Filed: 05/09/22 14:26> Limitations: no limitations <Rimma Talbert PA-C - Last Filed: 05/09/22 14:26> History of Present Illness HPI Narrative: This is a 66-year-old female that presents to the emergency department for shortness of breath ongoing over the last several days. Associated with a cough and wheezing. Reports she ran out of her inhaler recently. She finished her dialysis treatment today and continued to feel short of breath. Her oxygen saturation was noted to be low. She also was reporting an episode of chest pain. Denies fevers or lower extremity edema. <Rimma Talbert PA-C - Last Filed: 05/09/22 14:26> Related Data Home Medications: Home Medications Medication Instructions Recorded Confirmed apixaban 2.5 mg tablet 2.5 mg PO BID 03/24/20 08/31/20 fluoxetine 20 mg capsule 20 mg PO DAILY 03/24/20 08/31/20 calcium acetate(phosphat bind) 667 1,334 mg PO TIDWM 06/16/20 08/31/20 mg capsule fluticasone propionate 220 2 puff inhalation BID 06/16/20 08/31/20 mcg/actuation HFA aerosol inhaler (Flovent HFA) lanthanum 1,000 mg chewable tablet 1,000 mg PO TIDWM 06/16/20 08/31/20 linaclotide 145 mcg capsule 145 mcg PO DAILY PRN Constipation 06/16/20 08/31/20 (Linzess) metoprolol succinate 25 mg 12.5 mg PO BID 06/16/20 08/31/20 tablet,extended release 24 hr montelukast 10 mg tablet 10 mg PO HS 06/16/20 08/31/20 omeprazole 20 mg capsule,delayed 20 mg PO BID 06/16/20 08/31/20 release ondansetron HCl 4 mg tablet 4 mg PO DAILY PRN Nausea 06/16/20 08/31/20 rosuvastatin 5 mg tablet 5 mg PO DAILY 06/16/20 08/31/20 trazodone 50 mg tablet 50 mg PO HS PRN Insomnia 06/16/20 08/31/20 vitamin B complex-vitamin C-folic 1 tablet PO DAILY 06/16/20 08/31/20 acid 0.8 mg tablet (Dialyvite 800) midodrine 10 mg tablet 20 mg PO TID 08/31/20 08/31/20 prednisone 10 mg tablet 5 mg PO DAILY 08/31/20 08/31/20 <Rimma Talbert PA-C - Last Filed: 05/09/22 14:26> Allergies/Adverse Reactions: Allergies Allergy/AdvReac Type Severity Reaction Status Date / Time lisinopril Allergy Unknown Unknown Verified 03/16/22 09:20 propoxyphene Allergy Unknown Unknown Verified 03/16/22 09:20 valsartan Allergy Unknown lost voice Verified 03/16/22 09:20 <Rimma Talbert PA-C - Last Filed: 05/09/22 14:26> Review of Systems Review of Systems: CONSTITUTIONAL: Denies fever ENT: Reports congestion CARDIOVASCULAR: Reports chest pain. Denies edema. RESPIRATORY: Reports cough and dyspnea. <Rimma Talbert PA-C - Last Filed: 05/09/22 14:26> All systems reviewed & are unremarkable except as noted in HPI and below <Rimma Talbert PA-C - Last Filed: 05/09/22 14:26> [facility] Past Medical History Medical History: Medical History Anxiety Asthma Chronic anemia History of blood transfusions. Chronic anticoagulation Chronic obstructive pulmonary disease On low-dose prednisone. Combined systolic and diastolic congestive heart failure Echo 10/2012: severe LV enlargement, moderate LV dysfunction with wall motion abnormality at the inferior basal segment, EF 44%, grade 2 diastolic dysfunction. Deep venous thrombosis (02/2013) Diverticulosis End-stage renal disease on hemodialysis (09/2009) Gastroesophageal reflux disease Gout Hyperlipidemia Hypotension On midodrine. Hypothyroidism Kidney stones Non-ischemic cardiomyopathy Negative cardiac catheterization showing no obstructive coronary disease in 2003 at [place]. EF at that time was 20% but [place]
[2022-05-09] MEDS: IPRATROPIUM BR 0.02% INH SOLN 0.5 MG/2.5 ML VIAL INHALATION ×3 (09:48→19:33)
[2022-05-09] MEDS: ALBUTEROL SULFATE NEB 2.5 MG/3 ML INH INHALATION ×3 (09:48→19:33)
[2022-05-09 10:00] LABS: Alveolar/Arterial O2 Gradient 148.4 mmHg; Base Excess ABG 4.8 mEq/l (+/-2.0); Carboxyhemoglobin 0.4 % THb (0-2.0); Fractional Inspired Oxygen 44 %; HCO3 ABG 29.5 mEq/l (22.0-26.0); Methemoglobin ABG 0.3 %THb (0-1.5); Oxygen Content ABG 13.6 %vol (16.0-22.0); Oxygen Saturation ABG 98.3 % (95.0-100.0); Oxyhemoglobin 96.9 % THb (90.0-100.0); PCO2 ABG 44.5 mmHg (35.0-45.0); PO2 ABG 114.6 mmHg (80.0-100.0); Reduced Hemoglobin 2.4 %THb (0-5.0); Total Hemoglobin 9.8 g/dL (12.0-18.0); pH ABG 7.439 (7.350-7.450)
[2022-05-09 10:01] LABS: Device NASAL CANNULA; Site Drawn RIGHT BRACHIAL
[2022-05-09 10:37] LABS: Influenza A QL RT-PCR Negative (Negative); Influenza B QL RT-PCR Negative (Negative); SARS-CoV-2 RNA PCR Negative
[2022-05-09 11:00] LABS: Basophils Percent Auto 0.6 % (0.2-1.2); Eosinophils Absolute Auto 0.3 K/mm3 (0-0.3); Eosinophils Percent Auto 4.2 % (0-4.4); Hematocrit 29.9 % (37.0-47.0); Hemoglobin 9.5 g/dL (12.0-15.0); Immature Granulocyte Absolute 0.02 K/mm3 (0.00-0.031); Immature Granulocyte Percent A 0.3 % (0-0.5); Lymphocytes Absolute Auto 2.39 K/mm3 (0.9-3.2); Lymphocytes Percent Auto 37.1 % (18.3-44.2); Mean Corpuscular HGB Conc 31.8 g/dl (32-36); Mean Corpuscular Hemoglobin 29.9 pg (26-34); Mean Platelet Volume 9.7 fl (7.4-10.4); Monocytes Absolute Auto 0.7 K/mm3 (0.1-0.6); Monocytes Percent Auto 10.4 % (2.6-8.5); Neutrophils Absolute Auto 3.1 K/mm3 (1.3-6.7); Neutrophils Percent Auto 47.4 % (45.5-73.1); Platelet Count Result 211 k/mm3 (150-375); Red Blood Count 3.18 M/mm3 (4.2-5.4); Red Cell Distribution Width 13.2 % (11.5-14.5); White Blood Count 6.4 K/mm3 (4.5-10.0)
[2022-05-09 11:17] LABS: Alanine Aminotransferase 18 U/L (6-35); Albumin Level 4.3 g/dL (3.5-5.1); Alkaline Phosphatase 72 U/L (38-126); Anion Gap 6 mmol/L (8-16); Aspartate Amino Transferase 25 U/L (14-36); Bilirubin,Total 0.7 mg/dL (0.2-1.3); Blood Urea Nitrogen 17 mg/dL (7-17); Calcium 9.1 mg/dL (8.4-10.2); Carbon Dioxide 32 mmol/L (22-30); Chloride 98 mmol/L (98-107); Estimated Glomerular Filt Rate 8; Glucose 102 mg/dL (65-110); Potassium 3.7 mmol/L (3.4-5.0); Sodium 136 mmol/L (137-145)
[2022-05-09 11:40] LABS: NT Pro B Type Natriuretic Pept 22200 pg/mL (19.9-100)
--- NOTE | 2022-05-09 13:29 | PM.IMHP ---
H&P: HPI History of Present Illness Date/Time: 05/09/22 13:29 Chief Complaint: Chest pain and shortness of breath Narrative: This is a 66-year-old female patient who has a history of end-stage renal disease and has dialysis on Monday. The patient did have dialysis today as usual. The patient has been having increasing shortness of breath over the last several days. She has also been coughing and wheezing. She recently ran out of her inhaler. Her O2 saturations were noted to be low upon arrival to the emergency room. Oxygen was added at 4 L per nasal cannula. The patient is not typically on oxygen. Chest x-ray was read as?Bilateral primarily central and lower lung zone infiltrates, chest and pulmonary edema. Pneumonia and aspiration are not excluded. The pulmonary infiltrates appear mildly improved since earlier today. O2 saturations were 86-85 upon arrival to the emergency room. Patient was given nebulizer treatments, IV Lasix, Rocephin, azithromycin, Solu-Medrol and IV Tylenol. The patient is being admitted to inpatient status date of service 05/09/2022 Review of Systems Review of Systems: All systems reviewed & are unremarkable except as noted in HPI and below Constitutional: Constitutional: Reports as per HPI and Reports no additional constitutional complaints Eyes: Eyes: Reports as per HPI and Reports no additional eye complaints ENT: Reports system reviewed and no additional complaints, except as documented and Reports Normal hearing present Cardiovascular: Cardiovascular: Reports no additional cardiovascular complaints Respiratory: Respiratory: Reports no additional respiratory complaints and Reports no additional respiratory complaints Gastrointestinal: Gastrointestinal: Reports as per HPI and Reports no additional gastrointestinal complaints Musculoskeletal: Musculoskeletal: Reports no additional musculoskeletal complaints Integumentary/Breasts: Skin/Breast: Reports system reviewed and no additional complaints, except as docu and Reports as per HPI Neurologic: Reports system reviewed and no additional complaints, except as documented, Reports as per HPI and Reports Normal hearing present Psychiatric: Psychiatric: Reports no additional psychiatric complaints and Reports as per HPI Endocrine: Endocrine: Reports no additional endocrine complaints Hematologic/Lymphatic: Hematologic/Lymphatic: Reports no additional hematologic/lymphatic complaints Allergic/Immunologic: Allergic/Immunologic: Reports no additional allergic/immunologic complaints PMFSH Past Medical History Medical History Anxiety Asthma Chronic anemia History of blood transfusions. Chronic anticoagulation Chronic obstructive pulmonary disease On low-dose prednisone. Combined systolic and diastolic congestive heart failure Echo 10/2012: severe LV enlargement, moderate LV dysfunction with wall motion abnormality at the inferior basal segment, EF 44%, grade 2 diastolic dysfunction. Deep venous thrombosis (02/2013) Diverticulosis End-stage renal disease on hemodialysis (09/2009) Gastroesophageal reflux disease Gout Hyperlipidemia Hypotension On midodrine. Hypothyroidism Kidney stones Non-ischemic cardiomyopathy Negative cardiac catheterization showing no obstructive coronary disease in 2003 at [place]. EF at that time was 20% but has improved to 54% in 02/2015. Obstructive sleep apnea Paroxysmal atrial fibrillation Peptic ulcer (07/2003) Renal osteodystrophy Type II diabetes mellitus Complicated by peripheral neuropathy and nephropathy. Surgical History Surgical History History of angioplasty History of cardiac catheterization (08/20/13) Normal coronary arteries per Dr. Oliveros at [place]. History of cardiac radiofrequency ablation (1993) For SVT. History of section History of cholecystectomy (201
[2022-05-09] MEDS: methylPREDNISolone SOD SUCC 125 MG VIAL IV PUSH (14:42)
[2022-05-09 15:39] LABS: Alveolar/Arterial O2 Gradient 172.9 mmHg; Carboxyhemoglobin 0.4 % THb (0-2.0); Fractional Inspired Oxygen 40 %; HCO3 ABG 29.5 mEq/l (22.0-26.0); Methemoglobin ABG 0.3 %THb (0-1.5); Oxygen Content ABG 12.4 %vol (16.0-22.0); Oxygen Saturation ABG 92.8 % (95.0-100.0); Oxyhemoglobin 90.5 % THb (90.0-100.0); PCO2 ABG 43.3 mmHg (35.0-45.0); PO2 ABG 62.5 mmHg (80.0-100.0); PO2 FiO2 Ratio Arterial Blood 1.56 %; Reduced Hemoglobin 8.8 %THb (0-5.0); Total Hemoglobin 9.7 g/dL (12.0-18.0); pH ABG 7.451 (7.350-7.450)
[2022-05-09 15:40] LABS: Device NASAL CANNULA; Modified Allen's Test Pass; Site Drawn RIGHT BRACHIAL
--- NOTE | 2022-05-09 17:03 | PM.CNNEP ---
Assessment and Plan Assessment and plan (1) End stage renal disease: Code(s): N18.6 - End stage renal disease Status: Chronic Assessment and Plan: HD today already so plan next treatment on Monday follow electrolytes, volume status, and clearance (2) Acute respiratory failure with hypoxia: Code(s): J96.01 - Acute respiratory failure with hypoxia Status: Acute Assessment and Plan: suspect multifactorial: pneumonia component of volume overload/pulmonary edema reactive airway disease (COPD?) known history of LENORA chronic heart failure plan DUF (dry ultrafiltration) tomorrow for further fluid removal antibiotics for pneumonia mebulizere treatments and steroids for reactive airway disease/COPD checking Echo supplemental oxygen - wean as tolerated (3) Pneumonia: Qualifiers: Laterality: bilateral Lung location: unspecified part of lung Pneumonia type: due to unspecified organism Qualified Code(s): J18.9 - Pneumonia, unspecified organism Code(s): J18.9 - Pneumonia, unspecified organism Status: Acute Assessment and Plan: suggestive by admission imaging follow culture data continue with with azithromycin and ceftriaxone (4) Hypotension: Code(s): I95.9 - Hypotension, unspecified Status: Chronic Assessment and Plan: chronic issues at baseline on midodrine therapy (5) Chronic anemia: Code(s): D64.9 - Anemia, unspecified Status: Chronic Assessment and Plan: due to ESRD Epogen with HD follow trend of H/H Will continue to follow. History of Present Illness Reason for Consult Consult date: 05/09/22 Reason for consult: end stage renal disease Chief Complaint Chief complaint: Pneumonia/Acute Respiratory Failure w Hypoxia/Elev History of Present Illness Narrative: The patient ia a 66-year-old female with multiple medical problems as outlined below who presented to the [facility] ER earlier today for evaluation of shortness of breath and hypoxia. The patient was at her regularly scheduled dialysis treatment earlier today and finished her treatment. However, both prior to, during, and even after the dialysis treatment, the patient had been complaining of shortness of breath. Initially, her oxygen saturations were within normal limits at the start of her dialysis treatment but by the time she finished, her O2 saturations dropped to 86% on room air. Supplemental oxygen was applied and she was subsequently transferred to the ER for further assessment. Upon further questioning, the patient reports that she has been having increasing shortness of breath over the last several days. The shortness of breath has been associated with a nonproductive cough and wheezing. This was further complicated by fact that she ran out of her outpatient inhalers as well. Workup and evaluation emergency room confirmed her hypoxia and she was requiring 4 L of supplemental oxygen to maintain her O2 saturations. At baseline, she is not normally on oxygen. Routine blood test demonstrated labs consistent with her known history of end-stage renal disease but her chest x-ray noted pulmonary edema in association with central and lower lung zone infiltrates concerning for pneumonia. She was given a combination of nebulizer treatments, IV Lasix, Solu-Medrol, and IV Tylenol and appropriate cultures were obtained prior to initiation of IV antibiotic therapy in the form of Rocephin and azithromycin. She was subsequently admitted to the hospital for further evaluation and therapy. Renal consultation was requested due to her end-stage renal disease. The patient normally dialyzes on a Monday, Monday, Monday schedule under the care of Dr. Jc Moreau at [facility]. She is compliant with her dialysis treatments and as already mentioned, tends to be quite careful in terms of her fluid intake.
--- NOTE | 2022-05-09 20:02 | ECG_ITS ---
Measurements Intervals [place] Rate: 101 P: 73 MN: 176 QRS: -48 QRSD: 130 T: 94 QT: 385 QTc: 499 Interpretive Statements SINUS TACHYCARDIA LEFT BUNDLE BRANCH BLOCK BASELINE ARTIFACT- I, V1-V4 ABNORMAL ECG COMPARED TO ECG 05/09/2022 09:09:14 SINUS TACHYCARDIA NOW PRESENT Electronically Signed On 05-09-2022 20:46:19 CDT by Heath Grande D.O.
[2022-05-09 20:06] LABS: Troponin I 0.087 ng/mL (0.000-0.034)
[2022-05-09] MEDS: NITROGLYCERIN SL 0.4 MG TABLET (20:13)
[2022-05-09 20:24] LABS: Alveolar/Arterial O2 Gradient 183.8 mmHg; Base Excess ABG 1.8 mEq/l (+/-2.0); Fractional Inspired Oxygen 40 %; HCO3 ABG 26.2 mEq/l (22.0-26.0); Oxygen Content ABG 11.9 %vol (16.0-22.0); Oxygen Saturation ABG 89.7 % (95.0-100.0); PCO2 ABG 40.2 mmHg (35.0-45.0); PO2 ABG 55.2 mmHg (80.0-100.0); PO2 FiO2 Ratio Arterial Blood 1.38 %; Site Drawn RIGHT BRACHIAL; Total Hemoglobin 9.6 g/dL (12.0-18.0); pH ABG 7.432 (7.350-7.450)
[2022-05-09 20:25] LABS: Device NASAL CANNULA
[2022-05-09 20:48] LABS: Troponin I 0.085 ng/mL (0.000-0.034)
[2022-05-09] MEDS: methylPREDNISolone SOD SUCC 125 MG VIAL 60 MG IV PUSH (21:40)
[2022-05-10] VITALS (40 sets, daily range): BP systolic 103–160; BP diastolic 45–75; PULSE 81–109; RESP 18–36; TEMP 36–37.3; O2SAT 89–99; BMI 35.5
[2022-05-10] MEDS: IPRATROPIUM BR 0.02% INH SOLN 0.5 MG/2.5 ML VIAL INHALATION ×5 (02:22→20:35)
[2022-05-10] MEDS: ALBUTEROL SULFATE NEB 2.5 MG/3 ML INH INHALATION ×5 (02:23→20:35)
[2022-05-10 04:57] LABS: Basophils Percent Auto 0.2 % (0.2-1.2); Hematocrit 27.4 % (37.0-47.0); Hemoglobin 8.9 g/dL (12.0-15.0); Immature Granulocyte Absolute 0.07 K/mm3 (0.00-0.031); Immature Granulocyte Percent A 1.1 % (0-0.5); Lymphocytes Absolute Auto 0.67 K/mm3 (0.9-3.2); Lymphocytes Percent Auto 10.1 % (18.3-44.2); Mean Corpuscular HGB Conc 32.5 g/dl (32-36); Mean Corpuscular Volume 89.3 fl (80-100); Mean Platelet Volume 10.4 fl (7.4-10.4); Monocytes Absolute Auto 0.2 K/mm3 (0.1-0.6); Monocytes Percent Auto 3.3 % (2.6-8.5); Neutrophils Absolute Auto 5.7 K/mm3 (1.3-6.7); Neutrophils Percent Auto 85.3 % (45.5-73.1); Platelet Count Result 200 k/mm3 (150-375); Red Blood Count 3.07 M/mm3 (4.2-5.4); White Blood Count 6.7 K/mm3 (4.5-10.0)
[2022-05-10 05:09] LABS: Lactic Acid Reflex 2.5 mmol/L (0.7-2.0)
[2022-05-10 05:11] LABS: Albumin Level 4.3 g/dL (3.5-5.1); Anion Gap 10 mmol/L (8-16); Blood Urea Nitrogen 28 mg/dL (7-17); Calcium 8.6 mg/dL (8.4-10.2); Carbon Dioxide 28 mmol/L (22-30); Chloride 97 mmol/L (98-107); Estimated Glomerular Filt Rate 6; Glucose 188 mg/dL (65-110); Magnesium 1.9 mg/dL (1.6-2.3); Phosphorus 2.8 mg/dL (2.5-4.5); Potassium 4.3 mmol/L (3.4-5.0); Sodium 135 mmol/L (137-145)
[2022-05-10] MEDS: methylPREDNISolone SOD SUCC 125 MG VIAL 60 MG IV PUSH (05:56)
[2022-05-10] MEDS: ACETAMINOPHEN 325 MG TABLET 650 MG PO ×2 (05:57→17:09)
[2022-05-10 05:58] LABS: Hepatitis B Surface Antigen Negative (Negative)
[2022-05-10 06:04] LABS: HAV RESULT Negative (Negative); Hepatitis B Core IgM Result Negative (Negative)
[2022-05-10 06:19] LABS: Hepatitis B Surface Anti Res Positive; Hepatitis C Virus Antibody Negative (Negative)
[2022-05-10] MEDS: FLUTICASONE PROP 220 MCG (*SP) 12 GM INHALER 1 PUFF INHALATION (07:05)
[2022-05-10 07:52] LABS: Reflex Lactic Acid Yes or No Add Lactic
[2022-05-10 08:30] LABS: Lactic Acid 2.4 mmol/L (0.7-2.0)
--- NOTE | 2022-05-10 10:38 | P.PNNP_ITS ---
Progress Note: A&P Assessment and Plan (1) End stage renal disease: Code(s): N18.6 - End stage renal disease Status: Chronic Assessment and Plan: * HD tomorrow and continue M/W/F dialysis schedule * follow electrolytes, volume status, and clearance (2) Acute respiratory failure with hypoxia: Code(s): J96.01 - Acute respiratory failure with hypoxia Status: Acute Assessment and Plan: * suspect multifactorial: * pneumonia * component of volume overload/pulmonary edema * reactive airway disease (asthma) * known history of LENORA * chronic heart failure * DUF (dry ultrafiltration) today for further fluid removal * antibiotics for pneumonia * mebulizer treatments * checking Echo * supplemental oxygen - wean as tolerated * Pulmonary consulted (3) Pneumonia: Qualifiers: Laterality: bilateral Lung location: unspecified part of lung Pneumonia type: due to unspecified organism Qualified Code(s): J18.9 - Pneumonia, unspecified organism Code(s): J18.9 - Pneumonia, unspecified organism Status: Acute Assessment and Plan: * suggestive by admission imaging * follow culture data * continue with with azithromycin and ceftriaxone (4) Hypotension: Code(s): I95.9 - Hypotension, unspecified Status: Chronic Assessment and Plan: * chronic issues at baseline * on midodrine therapy * follow hemodynamics (5) Chronic anemia: Code(s): D64.9 - Anemia, unspecified Status: Chronic Assessment and Plan: * due to ESRD * Epogen with HD * follow trend of H/H Will continue to follow. Subjective Date/time seen: 05/10/22 10:38 Tolerating dry ultrafiltration session at the time of my visit (seen on DUF at 10:25AM); breathing/respiratory status seems stable if not a bit better; remains on BiPAP therapy; no other acute issues voiced currently. Exam Narrative: General: mildly ill appearing AA female in NAD Heart: normal S1 and S2; no rub Lungs: coarse breath sounds Abdomen: soft, nontender, nondistended, positive bowel sounds Extremities: no cyanosis or clubbing; no edema Skin: warm and dry Objective Data Vital Signs Vital Signs: Vital Signs Temp Pulse Resp BP Pulse Ox O2 Del Method O2 Flow Rate 05/10/22 09:14 98.2 F 95 20 146/65 H 05/10/22 09:00 95 31 H BiPAP 05/10/22 07:15 92 24 H 05/10/22 07:05 89 24 H 05/10/22 07:05 89 24 H 99 Nasal Cannula 5 05/10/22 08:00 97.3 F L 100 18 136/71 92 05/10/22 06:00 94 05/10/22 04:00 84 05/10/22 05:57 99.1 F 05/10/22 04:00 97.3 F L 93 24 H 116/55 L 92 05/10/22 03:40 99 25 H 05/10/22 02:00 89 05/10/22 00:00 84 05/09/22 22:00 99 05/09/22 20:00 106 H 05/10/22 02:25 98 22 H 89 L BiPAP 05/10/22 02:24 98 22 H 05/10/22 00:00 97.1 F L 84 24 H 109/57 L 99 05/09/22 20:00 97.8 F 108 H 32 H 146/80 H 92 05/09/22 20:45 98 30 H 96 BiPAP 05/09/22 20:44 98 35 H 96 BiPAP 05/09/22 19:41 99 25 H 05/09/22 19:33 98 26 H 05/09/22 18:05 97.7 F 98 26 H 134/69 94 05/09/22 17:31 98 28 H 126/63 99
--- NOTE | 2022-05-10 10:38 | PM.PNNEP ---
Progress Note: A&P Assessment and Plan (1) End stage renal disease: Code(s): N18.6 - End stage renal disease Status: Chronic Assessment and Plan: HD tomorrow and continue M/W/F dialysis schedule follow electrolytes, volume status, and clearance (2) Acute respiratory failure with hypoxia: Code(s): J96.01 - Acute respiratory failure with hypoxia Status: Acute Assessment and Plan: suspect multifactorial: pneumonia component of volume overload/pulmonary edema reactive airway disease (asthma) known history of LENORA chronic heart failure DUF (dry ultrafiltration) today for further fluid removal antibiotics for pneumonia mebulizer treatments checking Echo supplemental oxygen - wean as tolerated Pulmonary consulted (3) Pneumonia: Qualifiers: Laterality: bilateral Lung location: unspecified part of lung Pneumonia type: due to unspecified organism Qualified Code(s): J18.9 - Pneumonia, unspecified organism Code(s): J18.9 - Pneumonia, unspecified organism Status: Acute Assessment and Plan: suggestive by admission imaging follow culture data continue with with azithromycin and ceftriaxone (4) Hypotension: Code(s): I95.9 - Hypotension, unspecified Status: Chronic Assessment and Plan: chronic issues at baseline on midodrine therapy follow hemodynamics (5) Chronic anemia: Code(s): D64.9 - Anemia, unspecified Status: Chronic Assessment and Plan: due to ESRD Epogen with HD follow trend of H/H Will continue to follow. Subjective Date/time seen: 05/10/22 10:38 Tolerating dry ultrafiltration session at the time of my visit (seen on DUF at 10:25AM); breathing/respiratory status seems stable if not a bit better; remains on BiPAP therapy; no other acute issues voiced currently. Exam Narrative: General: mildly ill appearing AA female in NAD Heart: normal S1 and S2; no rub Lungs: coarse breath sounds Abdomen: soft, nontender, nondistended, positive bowel sounds Extremities: no cyanosis or clubbing; no edema Skin: warm and dry Objective Data Vital Signs Vital Signs: Vital Signs Temp Pulse Resp BP Pulse Ox O2 Del Method O2 Flow Rate 05/10/22 09:14 98.2 F 95 20 146/65 H 05/10/22 09:00 95 31 H BiPAP 05/10/22 07:15 92 24 H 05/10/22 07:05 89 24 H 05/10/22 07:05 89 24 H 99 Nasal Cannula 5 05/10/22 08:00 97.3 F L 100 18 136/71 92 05/10/22 06:00 94 05/10/22 04:00 84 05/10/22 05:57 99.1 F 05/10/22 04:00 97.3 F L 93 24 H 116/55 L 92 05/10/22 03:40 99 25 H 05/10/22 02:00 89 05/10/22 00:00 84 05/09/22 22:00 99 05/09/22 20:00 106 H 05/10/22 02:25 98 22 H 89 L BiPAP 05/10/22 02:24 98 22 H 05/10/22 00:00 97.1 F L 84 24 H 109/57 L 99 05/09/22 20:00 97.8 F 108 H 32 H 146/80 H 92 05/09/22 20:45 98 30 H 96 BiPAP 05/09/22 20:44 98 35 H 96 BiPAP 05/09/22 19:41 99 25 H 05/09/22 19:33 98 26 H 05/09/22 18:05 97.7 F 98 26 H 134/69 94 05/09/22 17:31 98 28 H 126/63 99 05/09/22 17:30 98 24 H 95 05/09/22 17:17 98 24 H 99 05/09/22 17:09 99 26 H 98 05/09/22 16:55 95 31 H 99 05/09/22 16:31 98 33 H 130/72 98 05/09/22 16:30 101 H 35 H 94 05/09/22 16:24 100 36 H 97 05/09/22 16:01 98 32 H 124/74 97 05/09/22 16:00 99 32 H 95 05/09/22 15:51 99 36 H 97 05/09/22 15:31 98 34 H 147/97 H 97 05/09/22 15:30 99 46 H 96 05/09/22 15:22 102 H 44 H 95 05/09/22 15:01 104 H 29 H 96 05/09/22 14:45 108 H 33 H 91 05/09/22 14:44 107 H 24 H 116/83 92 05/09/22 14:30 109 H 19 85 L 05/09/22 14:27 108 H 27 H 86 L 05/09/22 14:01 104 H 39 H 127/84 96 05/09/22 14:00 95 26 H
--- NOTE | 2022-05-10 10:50 | PM.CNPUL ---
Assessment and Plan Assessment and plan (1) Acute respiratory failure with hypoxia: Code(s): J96.01 - Acute respiratory failure with hypoxia Status: Acute Assessment and Plan: Patient with a history of end-stage renal disease, nonischemic cardiomyopathy and per cardiology's last note on 08/31/2020 states that this has resolved over the years with medical treatment and ablation for her atrial arrhythmias, Asthma, presents with shortness of breath, hypoxia, wheezing, no leukocytosis, afebrile and sputum that is changed from clear to yellow. BNP 77978 and CXR with diffuse opacities and CM. She has currently improved with 1.5 L removed with emergent hemodialysis this morning, bronchodilators, steroids and antibiotics. Etiology of patient's acute respiratory failure with hypoxia include fluid overload, pneumonia, and or asthma exacerbation. agree with aggressive fluid removal per hemodialysis as tolerated by her cardiac and renal Systems. Nephrology is following. Goal today is 2-3 L out and I spoke with the hazardous materials waste technician and her blood pressure is tolerating fluid removal so far and he will attempt to remove 3 L. the patient tells me they have never removed more than 3 L in the past. Covid and influenza RT PCR studies are negative. Blood and sputum cultures are pending. At this time I would continue ceftriaxone and azithromycin both started on 05/09. The patient had wheezing on exam is and was started on Solu-Medrol for COPD exacerbation. Per the patient she has had outpatient breathing studies and her teacher of family and consumer science does not feel she has COPD. The patient does tell me she has asthma. The patient did not feel that her asthma was flaring at this time. Currently she is not wheezing. At this time I will discontinue the Solu-Medrol and place her on albuterol 2.5 mg nebs q.4 hours, ipratropium 0.5 mg nebs Q 6 hours and budesonide 500 mcg nebulized b.i.d.. We will continue her montelukast 10 mg p.o. q.h.s. (2) Obstructive sleep apnea: Code(s): G47.33 - Obstructive sleep apnea (adult) (pediatric) Status: Acute Assessment and Plan: patient tells me she has obstructive sleep apnea diagnosed in 2001. Currently she is wearing auto PAP through her teacher of family and consumer science. She does not know her pressure settings and I will attempt to get a download from [employer]. She does not use oxygen at home. Patient states the current BiPAP settings were uncomfortable and I adjusted the settings to a noninvasive ventilator with an AVAPS mode with a set rate of 20, tidal volume 500, EPAP 5, minimal inspiratory pressure 6, maximal inspiratory pressure 25, inspiratory time 1.0, rise of 1 which is the fastest and 50% FiO2. Patient stated this was more comfortable and she can continue this p.r.n. shortness of breath during the day and she should wear this tonight. The patient will have her family bring in her home auto PAP machine so she can wear this when she is clinically improved. Will follow with you. History of Present Illness History of Present Illness Consult date: 05/10/22 Chief complaint: Pneumonia/Acute Respiratory Failure w Hypoxia/Elev Narrative: 05/10/2022: This is a new pulmonary consultation for hypoxemic respiratory failure. 66-year-old with a history of end-stage renal disease on hemodialysis, paroxysmal atrial fibrillation, asthma and obstructive sleep apnea on auto Pap. Patient is currently on BiPAP with limited history obtained. Patient states she did not have childhood asthma but is has asthma and obstructive sleep apnea followed by her teacher of family and consumer science Dr.Jeffrey Tobin. she is a never smoker and although COPD is listed on her chart Dr. Tobin did breathing tests and did not think she had COPD. I have no PFTs available. Regarding her asthma she is on p.r.n. inhalers and had not taken any inhalers in a number of months until 2-3 days prior to admission when she started developing shortness of breat
[2022-05-10] MEDS: APIXABAN 2.5 MG TABLET PO ×2 (15:22→21:24)
[2022-05-10] MEDS: PANTOPRAZOLE 40 MG TABLET PO ×2 (15:22→18:29)
[2022-05-10] MEDS: GABAPENTIN 100 MG CAPSULE 200 MG PO ×2 (15:22→18:29)
[2022-05-10] MEDS: CALCIUM ACETATE 667 MG TABLET 1334 MG PO ×2 (15:22→18:29)
[2022-05-10] MEDS: VITAMIN B CMPLX/VIT C/FOLIC AC 1 CAPSULE 1 CAP PO (15:22)
[2022-05-10] MEDS: FLUoxetine HCL 20 MG CAPSULE PO (15:22)
--- NOTE | 2022-05-10 17:01 | PM.IMPN ---
Progress Note: A&P Assessment and Plan (1) Pneumonia: Qualifiers: Laterality: bilateral Lung location: unspecified part of lung Pneumonia type: due to unspecified organism Qualified Code(s): J18.9 - Pneumonia, unspecified organism Code(s): J18.9 - Pneumonia, unspecified organism Status: Acute Assessment and Plan: Continue with azithromycin and Rocephin Sputum and blood cultures are pending Continue DuoNebs Tailor antibiotics according to cultures and sensitivities 05/10/2022 interval history: Patient is a 66-year-old female with history of end-stage renal disease on hemodialysis presented with a shortness of breath, patient did have a dialysis with still feels short of breath, I discussed with her mcat tutor and suspect patient is volume overloaded and may need several dialysis to help her breathe better, also patient with history of sleep apnea and on BiPAP seen by Dr. García pulmonology adjusting patient's hospital BiPAP however patient is unable tolerate hospital BiPAP, her family will bring CPAP from home and Dr. García will adjust the settings, her chest x-ray is also suspicious for pneumonia patient is treated with azithromycin and ceftriaxone, once clinically stable will have PT OT evaluate the patient, patient may benefit going to rehab. (2) End-stage renal disease on hemodialysis: Onset Date: 09/2009 Code(s): N18.6 - End stage renal disease; Z99.2 - Dependence on renal dialysis Status: Acute Assessment and Plan: Patient has dialysis Monday Nephrology has been consulted the patient did have dialysis today. (3) Obstructive sleep apnea: Code(s): G47.33 - Obstructive sleep apnea (adult) (pediatric) Status: Acute Assessment and Plan: Titrate CPAP/BiPAP to home setting (4) Paroxysmal atrial fibrillation: Code(s): I48.0 - Paroxysmal atrial fibrillation Status: Acute Assessment and Plan: Continue with Eliquis and metoprolol However the patient is on midodrine for hypotension (5) Gastroesophageal reflux disease: Code(s): K21.9 - Gastro-esophageal reflux disease without esophagitis Status: Acute Assessment and Plan: Continue with home medication (6) Hypothyroidism: Code(s): E03.9 - Hypothyroidism, unspecified Status: Acute Assessment and Plan: Check thyroid (7) Chronic anemia: Code(s): D64.9 - Anemia, unspecified Status: Chronic Assessment and Plan: Secondary to end-stage renal disease Continue to monitor At baseline (8) Non-ischemic cardiomyopathy: Code(s): I42.8 - Other cardiomyopathies Status: Acute Assessment and Plan: Continue with home medications (9) Combined systolic and diastolic congestive heart failure: Code(s): I50.40 - Unspecified combined systolic (congestive) and diastolic (congestive) heart failure Status: Acute Assessment and Plan: No previous echoes noted in our system Check echo The patient stated that she cannot have Lasix. Continue with metoprolol (10) Chronic obstructive pulmonary disease: Code(s): J44.9 - Chronic obstructive pulmonary disease, unspecified Status: Acute Assessment and Plan: Continue with Solu-Medrol DuoNebs Continue with Singulair (11) Acute respiratory failure with hypoxia: Code(s): J96.01 - Acute respiratory failure with hypoxia Status: Acute Assessment and Plan: Check echo She is currently being treated for pneumonia She is also getting Solu-Medrol for her COPD. Subjective Date/time seen: 05/10/22 17:01 Chest pain and shortness of breath HPI-Narrative: This is a 66-year-old female patient who has a history of end-stage renal disease and has dialysis on Monday.? The patient did have dialysis today as usual.? The patient has been having increasing shortness of breath over the last several day
[2022-05-10] MEDS: BUDESONIDE RESPULE NEB 0.5 MG/2 ML AMP INHALATION (20:35)
[2022-05-10] MEDS: MONTELUKAST SODIUM 10 MG TABLET PO (21:24)
[2022-05-10] MEDS: ATORVASTATIN 20 MG TABLET PO (21:24)
[2022-05-11] VITALS (44 sets, daily range): BP systolic 91–130; BP diastolic 30–63; PULSE 84–118; RESP 16–43; TEMP 36–38.2; O2SAT 92–100
--- NOTE | 2022-05-11 | ECHO_ITS ---
Patient Info Name: Donya Tobin Age: 66 years : 1955 Gender: Female Ht: 62 in Wt: 196 lbs BSA: 2.01 m2 HR: 113 bpm BP: 116 / 55 mmHg Heart Rhythm: Sinus Rhythm Technical Quality: Good Exam Date: 05/11/2022 3:37 PM Exam Location: [facility] Pulmonary Exam Room: 200 Patient Status: Inpatient Admit Date: 05/09/2022 Staff Ordering Physician: Starla Anderson NP [employer] Repairer: Maura Harrison RDCS Attending Provider: Radha Huynh MD Referring Physician: Monica AGUIRRE; Exam Type: CA echo doppler color flow Study Info Indications - chf esrd on HD Complete two-dimensional, color flow and Doppler transthoracic echocardiogram is performed. Summary 1. Complete two-dimensional, color flow and Doppler transthoracic echocardiogram is performed. 2. Concentric left ventricular hypertrophy with mild LV enlargement and moderately reduced systolic function. 3. Grade 2 diastolic noncompliance. 4. Dilated left atrium. 5. Mildly sclerotic aortic valve. Left Ventricle Left ventricular chamber dimension is moderately enlarged. Left ventricular systolic function is moderately reduced, estimated at 30-35%. There is mild concentric increased left ventricular wall thickness. The left ventricular diastolic function is grade II diastolic dysfunction. Right Ventricle Right ventricular chamber dimension is normal. Left Atria Left atrial chamber dimension is moderately enlarged. Right Atria Right atrial chamber dimension is normal. Aortic Valve The aortic valve is trileaflet. There is mild aortic valve sclerosis. Pulmonic Valve The pulmonic valve is not well visualized. Mitral Valve The mitral valve has normal leaflets. There is trace mitral valve regurgitation. Tricuspid Valve The tricuspid valve leaflets are normal. Pericardium/Pleural The pericardium appears normal. Aorta The aortic root size at the sinus of Valsalva is normal. Left Ventricular Outflow Tract Name Value Normal LVOT 2D LVOT Diameter 2.0 cm LVOT Doppler LVOT Peak Gradient 4 mmHg LVOT Mean Gradient 3 mmHg LVOT VTI 18 cm LVOT VTI/AV VTI Ratio 0.7 LVOT Stroke Volume 56 ml LVOT CO 15.6 l/min LVOT CI 7.8 l/min/m2 Pulmonic Valve Name Value Normal PV Doppler PV Peak Gradient 4 mmHg Mitral Valve Name Value Normal MV Doppler MV Decel Garvin 833 cm/s2 MV PH
[2022-05-11] MEDS: IPRATROPIUM BR 0.02% INH SOLN 0.5 MG/2.5 ML VIAL INHALATION ×7 (00:31→23:55)
[2022-05-11] MEDS: ALBUTEROL SULFATE NEB 2.5 MG/3 ML INH INHALATION ×7 (00:32→23:55)
[2022-05-11] MEDS: BUDESONIDE RESPULE NEB 0.5 MG/2 ML AMP INHALATION ×2 (07:58→19:53)
[2022-05-11] MEDS: CALCIUM ACETATE 667 MG TABLET 1334 MG PO ×3 (08:20→17:06)
[2022-05-11] MEDS: PANTOPRAZOLE 40 MG TABLET PO ×2 (08:20→17:06)
[2022-05-11] MEDS: GABAPENTIN 100 MG CAPSULE 200 MG PO ×2 (08:20→17:06)
[2022-05-11] MEDS: FLUoxetine HCL 20 MG CAPSULE PO (08:21)
[2022-05-11] MEDS: MIDODRINE HCL 2.5 MG TABLET 5 MG PO (09:21)
--- NOTE | 2022-05-11 10:06 | PM.PNPUL ---
Progress Note: A&P Assessment and Plan (1) Acute respiratory failure with hypoxia: Code(s): J96.01 - Acute respiratory failure with hypoxia Status: Acute Assessment and Plan: Patient with a history of end-stage renal disease, nonischemic cardiomyopathy and per cardiology's last note on 08/31/2020 states that this has resolved over the years with medical treatment and ablation for her atrial arrhythmias, Asthma, presents with shortness of breath, hypoxia, wheezing, no leukocytosis, afebrile and sputum that is changed from clear to yellow. BNP 63567 and CXR with diffuse opacities and CM. She has currently improved with 1.5 L removed with emergent hemodialysis this morning, bronchodilators, steroids and antibiotics. Etiology of patient's acute respiratory failure with hypoxia include fluid overload, pneumonia, and or asthma exacerbation. agree with aggressive fluid removal per hemodialysis as tolerated by her cardiac and renal Systems. Nephrology is following. Goal today is 2-3 L out and I spoke with the manager dialysis and her blood pressure is tolerating fluid removal so far and he will attempt to remove 3 L. the patient tells me they have never removed more than 3 L in the past. Covid and influenza RT PCR studies are negative. Blood and sputum cultures are pending. At this time I would continue ceftriaxone and azithromycin both started on 05/09. The patient had wheezing on exam is and was started on Solu-Medrol for COPD exacerbation. Per the patient she has had outpatient breathing studies and her telephone messenger does not feel she has COPD. The patient does tell me she has asthma. The patient did not feel that her asthma was flaring at this time. Currently she is not wheezing. At this time I will discontinue the Solu-Medrol and place her on albuterol 2.5 mg nebs q.4 hours, ipratropium 0.5 mg nebs Q 6 hours and budesonide 500 mcg nebulized b.i.d.. We will continue her montelukast 10 mg p.o. q.h.s. She felt a BiPAP pressures were uncomfortable and tolerated AVAPS mode?with a set rate of 20, tidal volume 500, EPAP 5, minimal inspiratory pressure 6, maximal inspiratory pressure 25, inspiratory time 1.0, rise of 1 which is the fastest and 50% FiO2. 05/11 patient tells me she was much improved after her ultrafiltration of 3 L off yesterday. She tolerated off of BiPAP for 2-3 hours in the afternoon and wore the hospital noninvasive ventilator with the AVAPS settings as above overnight. Currently the patient is on hemodialysis and on the noninvasive ventilator with the AVAPS mode. She states she is doing much better and states that she feels she is 50% back to her baseline. She has less chest heaviness, is breathing easier and has no wheezing. Goal hemodialysis fluid removal is 3-4 L. Plan: the patient continues to improve from a respiratory viewpoint with fluid removal and discontinuation of systemic steroids. I think asthma exacerbation is less likely. I think pneumonia is less likely but I will continue to treat for now. Continue albuterol 2.5 mg nebs q.4 hours, ipratropium 0.5 mg nebs Q4 hours, budesonide 500 mcg nebulized b.i.d and montelukast 10 mg p.o. q.h.s. Continue ceftriaxone and as a azithromycin day 3. regarding her a VATS settings she said she prefers arise level of 2 today which I have made. Her saturations are 100% and will try p.r.n. noninvasive ventilation throughout the day but she should wear the hospital noninvasive ventilator with the above-mentioned AVAPS settings tonight, I will decrease to 40%. (2) Obstructive sleep apnea: Code(s): G47.33 - Obstructive sleep apnea (adult) (pediatric) Status: Acute Assessment and Plan: patient tells me she has obstructive sleep apnea diagnosed in 2001. Currently she is wearing auto PAP through her telephone messenger. She does not know her pressure settings and I will attempt to get a download from [employer]. She does not use oxygen at h
[2022-05-11] MEDS: EPOETIN ALFA-EPBX 10,000 UNITS/ML VIAL 10000 UNITS IV PUSH (12:04)
--- NOTE | 2022-05-11 12:47 | PM.IMPN ---
Progress Note: A&P Assessment and Plan (1) Pneumonia: Qualifiers: Laterality: bilateral Lung location: unspecified part of lung Pneumonia type: due to unspecified organism Qualified Code(s): J18.9 - Pneumonia, unspecified organism Code(s): J18.9 - Pneumonia, unspecified organism Status: Acute Assessment and Plan: Continue with azithromycin and Rocephin Sputum and blood cultures are pending Continue DuoNebs Tailor antibiotics according to cultures and sensitivities Some of this is likely related to volume overload from end-stage renal disease as well. Patient has had some significant improvement after hemodialysis. Continue HD per Renal (2) End-stage renal disease on hemodialysis: Onset Date: 09/2009 Code(s): N18.6 - End stage renal disease; Z99.2 - Dependence on renal dialysis Status: Acute Assessment and Plan: Patient has dialysis Monday Nephrology has been consulted the patient did have dialysis today. (3) Obstructive sleep apnea: Code(s): G47.33 - Obstructive sleep apnea (adult) (pediatric) Status: Acute Assessment and Plan: Titrate CPAP/BiPAP to home setting (4) Paroxysmal atrial fibrillation: Code(s): I48.0 - Paroxysmal atrial fibrillation Status: Acute Assessment and Plan: Continue with Eliquis and metoprolol However the patient is on midodrine for hypotension (5) Gastroesophageal reflux disease: Code(s): K21.9 - Gastro-esophageal reflux disease without esophagitis Status: Acute Assessment and Plan: Continue with home medication (6) Hypothyroidism: Code(s): E03.9 - Hypothyroidism, unspecified Status: Acute Assessment and Plan: Check thyroid (7) Chronic anemia: Code(s): D64.9 - Anemia, unspecified Status: Chronic Assessment and Plan: Secondary to end-stage renal disease Continue to monitor At baseline (8) Non-ischemic cardiomyopathy: Code(s): I42.8 - Other cardiomyopathies Status: Acute Assessment and Plan: Continue with home medications (9) Combined systolic and diastolic congestive heart failure: Code(s): I50.40 - Unspecified combined systolic (congestive) and diastolic (congestive) heart failure Status: Acute Assessment and Plan: No previous echoes noted in our system Check echo The patient stated that she cannot have Lasix. Continue with metoprolol (10) Chronic obstructive pulmonary disease: Code(s): J44.9 - Chronic obstructive pulmonary disease, unspecified Status: Acute Assessment and Plan: Continue with Solu-Medrol [place] Continue with Singulair (11) Acute respiratory failure with hypoxia: Code(s): J96.01 - Acute respiratory failure with hypoxia Status: Acute Assessment and Plan: Check echo She is currently being treated for pneumonia She is also getting Solu-Medrol for her COPD. Subjective Date/time seen: 05/11/22 12:47 No complaints Exam Narrative: Morbidly obese Patient is comfortable, NAD HEENT: eyes are clear and none icteric LUNGS: Normal respiratory effort ABD: Distended Lower extremities: no edema SKIN: nonjaundiced Neuro: grossly intact. Objective Data Vital Signs Vital Signs: Vital Signs - 24 hr 05/10/22 15:00 05/10/22 15:10 05/10/22 16:00 Temperature Pulse Rate 84 87 Respiratory Rate 22 H 22 H Blood Pressure Pulse Oximetry 92 Oxygen Delivery BiPAP Oxygen Flow Rate Fraction of Inspired Oxygen 50 05/10/22 14:00 05/10/22 16:00 05/10/22 16:00 Temperature 97.9 F Pulse Rate 102 H 106 H 109 H Respiratory Rate 18 Blood Pressure 124/57 L Pulse Oximetry 93 Oxygen Delivery Oxygen Flow Rate Fraction of Inspired Oxygen 05/10/22 18:00 05/10/22 20:00 05/10/22 20:37 Temperature 97.8 F Pulse Rate 100 105 H 105 H Respiratory Rate 36 H 20 Blood Pressure 103/52 L Puls
--- NOTE | 2022-05-11 12:56 | P.PNNP_ITS ---
Progress Note: A&P Assessment and Plan (1) End stage renal disease: Code(s): N18.6 - End stage renal disease Status: Chronic Assessment and Plan: * HD today and continue M/W/ dialysis schedule * follow electrolytes, volume status, and clearance (2) Acute respiratory failure with hypoxia: Code(s): J96.01 - Acute respiratory failure with hypoxia Status: Acute Assessment and Plan: * suspect multifactorial: * pneumonia * component of volume overload/pulmonary edema * reactive airway disease (asthma) * known history of LENORA * chronic heart failure * DUF (dry ultrafiltration) yesterday for further fluid removal * tentatively plan another session of DUF tomorrow * antibiotics for pneumonia * nebulizer treatments * supplemental oxygen - wean as tolerated * Pulmonary recommendations noted (3) Pneumonia: Qualifiers: Laterality: bilateral Lung location: unspecified part of lung Pneumonia type: due to unspecified organism Qualified Code(s): J18.9 - Pneumonia, unspecified organism Code(s): J18.9 - Pneumonia, unspecified organism Status: Acute Assessment and Plan: * suggestive by admission imaging * follow culture data * continue with with azithromycin and ceftriaxone (4) Hypotension: Code(s): I95.9 - Hypotension, unspecified Status: Chronic Assessment and Plan: * chronic issues at baseline * on midodrine therapy * follow hemodynamics (5) Chronic anemia: Code(s): D64.9 - Anemia, unspecified Status: Chronic Assessment and Plan: * due to ESRD * Epogen with HD * follow trend of H/H Will continue to follow. Subjective Date/time seen: 05/11/22 12:56 Tolerating DUF session yesterday with ~ 3L fluid removal and tolerating dialysis treatment today at the time of my visit (seen on HD at 12:48PM); overall, she states she feels better following fluid removal with DUF with an easier time breathing ; major complaint at this time is that of back pain associated with hospital bed. Exam Narrative: General: mildly ill appearing AA female in NAD Heart: normal S1 and S2; no rub Lungs: coarse breath sounds Abdomen: soft, nontender, nondistended, positive bowel sounds Extremities: no cyanosis or clubbing; no edema Skin: warm and dry Objective Data Vital Signs Vital Signs: Vital Signs Temp Pulse Resp BP Pulse Ox O2 Del Method O2 Flow Rate 05/11/22 12:00 104 H 126/30 L 05/11/22 11:40 91 124/49 L 05/11/22 11:59 38 H 95 BiPAP 05/11/22 11:59 92 28 H 05/11/22 11:45 90 28 H 05/11/22 08:00 96 BiPAP 05/11/22 11:28 43 H 96 BiPAP 05/11/22 08:43 36 H 95 BiPAP 05/11/22 10:00 102 H 05/11/22 08:00 95 05/11/22 11:20 86 96/38 L 05/11/22 11:00 84 107/31 L 05/11/22 10:40 100 116/48 L 05/11/22 10:20 109 H 112/48 L 05/11/22 10:00 101 H 111/46 L 05/11/22 09:40 102 H 112/51 L 05/11/22 09:20 98 118/51 L 05/11/22 09:09 102 H 119/52 L 05/11/22 08:56 97.5 F L 106 H 20 130/63 05/11/22 08:00 97.5 F L 95 26 H 108/57 L 95 05/11/22 06:00 92 05/11/22 04:00 92
--- NOTE | 2022-05-11 12:56 | PM.PNNEP ---
Progress Note: A&P Assessment and Plan (1) End stage renal disease: Code(s): N18.6 - End stage renal disease Status: Chronic Assessment and Plan: HD today and continue M/W/F dialysis schedule follow electrolytes, volume status, and clearance (2) Acute respiratory failure with hypoxia: Code(s): J96.01 - Acute respiratory failure with hypoxia Status: Acute Assessment and Plan: suspect multifactorial: pneumonia component of volume overload/pulmonary edema reactive airway disease (asthma) known history of LENORA chronic heart failure DUF (dry ultrafiltration) yesterday for further fluid removal tentatively plan another session of DUF tomorrow antibiotics for pneumonia nebulizer treatments supplemental oxygen - wean as tolerated Pulmonary recommendations noted (3) Pneumonia: Qualifiers: Laterality: bilateral Lung location: unspecified part of lung Pneumonia type: due to unspecified organism Qualified Code(s): J18.9 - Pneumonia, unspecified organism Code(s): J18.9 - Pneumonia, unspecified organism Status: Acute Assessment and Plan: suggestive by admission imaging follow culture data continue with with azithromycin and ceftriaxone (4) Hypotension: Code(s): I95.9 - Hypotension, unspecified Status: Chronic Assessment and Plan: chronic issues at baseline on midodrine therapy follow hemodynamics (5) Chronic anemia: Code(s): D64.9 - Anemia, unspecified Status: Chronic Assessment and Plan: due to ESRD Epogen with HD follow trend of H/H Will continue to follow. Subjective Date/time seen: 05/11/22 12:56 Tolerating DUF session yesterday with ~ 3L fluid removal and tolerating dialysis treatment today at the time of my visit (seen on HD at 12:48PM); overall, she states she feels better following fluid removal with DUF with an easier time breathing ; major complaint at this time is that of back pain associated with hospital bed. Exam Narrative: General: mildly ill appearing AA female in NAD Heart: normal S1 and S2; no rub Lungs: coarse breath sounds Abdomen: soft, nontender, nondistended, positive bowel sounds Extremities: no cyanosis or clubbing; no edema Skin: warm and dry Objective Data Vital Signs Vital Signs: Vital Signs Temp Pulse Resp BP Pulse Ox O2 Del Method O2 Flow Rate 05/11/22 12:00 104 H 126/30 L 05/11/22 11:40 91 124/49 L 05/11/22 11:59 38 H 95 BiPAP 05/11/22 11:59 92 28 H 05/11/22 11:45 90 28 H 05/11/22 08:00 96 BiPAP 05/11/22 11:28 43 H 96 BiPAP 05/11/22 08:43 36 H 95 BiPAP 05/11/22 10:00 102 H 05/11/22 08:00 95 05/11/22 11:20 86 96/38 L 05/11/22 11:00 84 107/31 L 05/11/22 10:40 100 116/48 L 05/11/22 10:20 109 H 112/48 L 05/11/22 10:00 101 H 111/46 L 05/11/22 09:40 102 H 112/51 L 05/11/22 09:20 98 118/51 L 05/11/22 09:09 102 H 119/52 L 05/11/22 08:56 97.5 F L 106 H 20 130/63 05/11/22 08:00 97.5 F L 95 26 H 108/57 L 95 05/11/22 06:00 92 05/11/22 04:00 92 05/11/22 08:02 96 24 H 05/11/22 07:50 98 26 H 05/11/22 08:00 96 BiPAP 05/11/22 07:58 92 26 H 96 BiPAP 05/11/22 04:00 97.1 F L 93 23 H 111/53 L 100 05/11/22 04:35 94 31 H 05/11/22 04:22 98 33 H BiPAP 05/11/22 04:21 92 33 H 05/11/22 03:05 92 BiPAP 05/11/22 00:00 92 BiPAP 05/11/22 02:00 97 05/11/22 00:00 98 05/10/22 22:00 98 05/10/22 20:00 105 H 05/10/22 23:05 98 36 H BiPAP 05/11/22 00:32 97 36 H 05/11/22 00:00 97.1 F L 99 38 H 111/53 L 99 05/10/22 20:55 107 H 20 05/10/22 20:38 105 H 93 Nasal Cannula 5 05/10/22 20:37 105 H 20 05/10/22 20:00 97.8 F 105 H 36 H
[2022-05-11] MEDS: ACETAMINOPHEN/CODEINE (*CRX) 300/30 MG TABLET 1 TAB PO (14:05)
[2022-05-11] MEDS: VITAMIN B CMPLX/VIT C/FOLIC AC 1 CAPSULE 1 CAP PO (14:06)
[2022-05-11] MEDS: APIXABAN 2.5 MG TABLET PO ×2 (14:06→21:01)
[2022-05-11] MEDS: DIGOXIN TAB 125 MCG TABLET PO (14:06)
[2022-05-11] MEDS: ACETAMINOPHEN 325 MG TABLET 650 MG PO (17:05)
[2022-05-11] MEDS: ATORVASTATIN 20 MG TABLET PO (21:01)
[2022-05-11] MEDS: MONTELUKAST SODIUM 10 MG TABLET PO (21:01)
[2022-05-12] VITALS (40 sets, daily range): BP systolic 88–118; BP diastolic 33–59; PULSE 11–108; RESP 16–25; TEMP 36.3–37.6; O2SAT 91–99
[2022-05-12] MEDS: ALBUTEROL SULFATE NEB 2.5 MG/3 ML INH INHALATION ×5 (03:30→20:58)
[2022-05-12] MEDS: IPRATROPIUM BR 0.02% INH SOLN 0.5 MG/2.5 ML VIAL INHALATION ×5 (03:30→20:55)
[2022-05-12] MEDS: BUDESONIDE RESPULE NEB 0.5 MG/2 ML AMP INHALATION ×2 (07:43→20:58)
[2022-05-12 08:34] LABS: Eosinophils Percent Auto 1.2 % (0-4.4); Hematocrit 26.8 % (37.0-47.0); Hemoglobin 8.7 g/dL (12.0-15.0); Lymphocytes Percent Auto 26.7 % (18.3-44.2); Mean Corpuscular HGB Conc 32.5 g/dl (32-36); Mean Corpuscular Hemoglobin 29.5 pg (26-34); Mean Corpuscular Volume 90.8 fl (80-100); Mean Platelet Volume 10.3 fl (7.4-10.4); Monocytes Percent Auto 10.7 % (2.6-8.5); Neutrophils Percent Auto 60.1 % (45.5-73.1); Platelet Count Result 218 k/mm3 (150-375); Red Blood Count 2.95 M/mm3 (4.2-5.4); Red Cell Distribution Width 13.4 % (11.5-14.5); White Blood Count 10.1 K/mm3 (4.5-10.0)
[2022-05-12 08:35] LABS: Basophils Percent Auto 0.3 % (0.2-1.2); Eosinophils Absolute Auto 0.1 K/mm3 (0-0.3); Monocytes Absolute Auto 1.1 K/mm3 (0.1-0.6); Neutrophils Absolute Auto 6.1 K/mm3 (1.3-6.7)
[2022-05-12 08:45] LABS: Alanine Aminotransferase 22 U/L (6-35); Albumin Level 4.3 g/dL (3.5-5.1); Alkaline Phosphatase 61 U/L (38-126); Anion Gap 11 mmol/L (8-16); Aspartate Amino Transferase 26 U/L (14-36); Bilirubin,Total 0.8 mg/dL (0.2-1.3); Blood Urea Nitrogen 33 mg/dL (7-17); Calcium 9.1 mg/dL (8.4-10.2); Carbon Dioxide 31 mmol/L (22-30); Chloride 96 mmol/L (98-107); Estimated CRCL calculation 7 ml/min; Estimated Glomerular Filt Rate 6; Glucose 124 mg/dL (65-110); Potassium 4.4 mmol/L (3.4-5.0); Sodium 138 mmol/L (137-145)
[2022-05-12 08:54] LABS: NT Pro B Type Natriuretic Pept 26300 pg/mL (19.9-100)
[2022-05-12] MEDS: APIXABAN 2.5 MG TABLET PO ×2 (09:11→20:27)
[2022-05-12] MEDS: MIDODRINE HCL 2.5 MG TABLET 5 MG PO ×2 (09:11→20:27)
[2022-05-12] MEDS: CALCIUM ACETATE 667 MG TABLET 1334 MG PO ×2 (09:11→17:30)
[2022-05-12] MEDS: ACETAMINOPHEN 325 MG TABLET 650 MG PO (09:12)
[2022-05-12] MEDS: PANTOPRAZOLE 40 MG TABLET PO ×2 (09:12→17:30)
[2022-05-12] MEDS: FLUoxetine HCL 20 MG CAPSULE PO (09:12)
[2022-05-12] MEDS: VITAMIN B CMPLX/VIT C/FOLIC AC 1 CAPSULE 1 CAP PO (09:12)
[2022-05-12] MEDS: GABAPENTIN 100 MG CAPSULE 200 MG PO ×2 (09:12→17:30)
[2022-05-12 10:00] LABS: Influenza A QL RT-PCR Negative (Negative); Influenza B QL RT-PCR Negative (Negative); RSV RNA, RT-PCR Negative (Negative); SARS-CoV-2 RNA PCR Negative
--- NOTE | 2022-05-12 10:17 | PM.PNPUL ---
Progress Note: A&P Assessment and Plan (1) Acute respiratory failure with hypoxia: Code(s): J96.01 - Acute respiratory failure with hypoxia Status: Acute Assessment and Plan: Patient with a history of end-stage renal disease, nonischemic cardiomyopathy and per cardiology's last note on 08/31/2020 states that this has resolved over the years with medical treatment and ablation for her atrial arrhythmias, Asthma, presents with shortness of breath, hypoxia, wheezing, no leukocytosis, afebrile and sputum that is changed from clear to yellow. BNP 81271 and CXR with diffuse opacities and CM. She has currently improved with 1.5 L removed with emergent hemodialysis this morning, bronchodilators, steroids and antibiotics. Etiology of patient's acute respiratory failure with hypoxia include fluid overload, pneumonia, and or asthma exacerbation. agree with aggressive fluid removal per hemodialysis as tolerated by her cardiac and renal Systems. Nephrology is following. Goal today is 2-3 L out and I spoke with the sonogram technician and her blood pressure is tolerating fluid removal so far and he will attempt to remove 3 L. the patient tells me they have never removed more than 3 L in the past. Covid and influenza RT PCR studies are negative. Blood and sputum cultures are pending. At this time I would continue ceftriaxone and azithromycin both started on 05/09. The patient had wheezing on exam is and was started on Solu-Medrol for COPD exacerbation. 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 The patient does tell me she has asthma. The patient did not feel that her asthma was flaring at this time. Currently she is not wheezing. At this time I will discontinue the Solu-Medrol and place her on albuterol 2.5 mg nebs q.4 hours, ipratropium 0.5 mg nebs Q 6 hours and budesonide 500 mcg nebulized b.i.d.. We will continue her montelukast 10 mg p.o. q.h.s. She felt a BiPAP pressures were uncomfortable and tolerated AVAPS mode?with a set rate of 20, tidal volume 500, EPAP 5, minimal inspiratory pressure 6, maximal inspiratory pressure 25, inspiratory time 1.0, rise of 1 which is the fastest and 50% FiO2. 05/11 patient tells me she was much improved after her ultrafiltration of 3 L off yesterday. She tolerated off of BiPAP for 2-3 hours in the afternoon and wore the hospital noninvasive ventilator with the AVAPS settings as above overnight. Currently the patient is on hemodialysis and on the noninvasive ventilator with the AVAPS mode. She states she is doing much better and states that she feels she is 50% back to her baseline. She has less chest heaviness, is breathing easier and has no wheezing. Goal hemodialysis fluid removal is 3-4 L. Plan: the patient continues to improve from a respiratory viewpoint with fluid removal and discontinuation of systemic steroids. I think asthma exacerbation is less likely. I think pneumonia is less likely but I will continue to treat for now. Continue albuterol 2.5 mg nebs q.4 hours, ipratropium 0.5 mg nebs Q4 hours, budesonide 500 mcg nebulized b.i.d and montelukast 10 mg p.o. q.h.s. Continue ceftriaxone and as a azithromycin day 3. regarding her a VATS settings she said she prefers arise level of 2 today which I have made. Her saturations are 100% and will try p.r.n. noninvasive ventilation throughout the day but she should wear the hospital noninvasive ventilator with the above-mentioned AVAPS settings tonight, I will decrease to 40%. 05/12 Patient tolerated hemodialysis with 3 L off yesterday. She was off BiPAP in the afternoon for 5 hours and wore the hospital noninvasive ventilator with the AVAPS mode overnight. Currently she is wearing the noninvasive ventilator and says that her breathing continues to improve. She says her cough and phlegm are improved. I took her off of the noninvasive ventilator and placed her on 3 L na
--- NOTE | 2022-05-12 10:19 | PC.NURSE ---
Patient to dialysis with staff at 1010, 3 L nasal cannula. No complaints of chest pain or shortness of breath.
--- NOTE | 2022-05-12 11:44 | PM.IMPN ---
Progress Note: A&P Assessment and Plan (1) Pneumonia: Qualifiers: Laterality: bilateral Lung location: unspecified part of lung Pneumonia type: due to unspecified organism Qualified Code(s): J18.9 - Pneumonia, unspecified organism Code(s): J18.9 - Pneumonia, unspecified organism Status: Acute Assessment and Plan: Continue with azithromycin and Rocephin Sputum and blood cultures are pending Continue DuoNebs Tailor antibiotics according to cultures and sensitivities Some of this is likely related to volume overload from end-stage renal disease as well. Patient has had some significant improvement after hemodialysis. Continue HD per Renal (2) End-stage renal disease on hemodialysis: Onset Date: 09/2009 Code(s): N18.6 - End stage renal disease; Z99.2 - Dependence on renal dialysis Status: Acute Assessment and Plan: Patient has dialysis Monday Nephrology has been consulted the patient did have dialysis today. (3) Obstructive sleep apnea: Code(s): G47.33 - Obstructive sleep apnea (adult) (pediatric) Status: Acute Assessment and Plan: Titrate CPAP/BiPAP to home setting (4) Paroxysmal atrial fibrillation: Code(s): I48.0 - Paroxysmal atrial fibrillation Status: Acute Assessment and Plan: Continue with Eliquis and metoprolol However the patient is on midodrine for hypotension (5) Gastroesophageal reflux disease: Code(s): K21.9 - Gastro-esophageal reflux disease without esophagitis Status: Acute Assessment and Plan: Continue with home medication (6) Hypothyroidism: Code(s): E03.9 - Hypothyroidism, unspecified Status: Acute Assessment and Plan: Check thyroid (7) Chronic anemia: Code(s): D64.9 - Anemia, unspecified Status: Chronic Assessment and Plan: Secondary to end-stage renal disease Continue to monitor At baseline (8) Non-ischemic cardiomyopathy: Code(s): I42.8 - Other cardiomyopathies Status: Acute Assessment and Plan: Continue with home medications (9) Combined systolic and diastolic congestive heart failure: Code(s): I50.40 - Unspecified combined systolic (congestive) and diastolic (congestive) heart failure Status: Acute Assessment and Plan: No previous echoes noted in our system Check echo The patient stated that she cannot have Lasix. Continue with metoprolol (10) Chronic obstructive pulmonary disease: Code(s): J44.9 - Chronic obstructive pulmonary disease, unspecified Status: Acute Assessment and Plan: Continue with Solu-Medrol [place] Continue with Singulair (11) Acute respiratory failure with hypoxia: Code(s): J96.01 - Acute respiratory failure with hypoxia Status: Acute Assessment and Plan: Check echo She is currently being treated for pneumonia She is also getting Solu-Medrol for her COPD. Subjective Date/time seen: 05/12/22 11:44 No new complaints Breathing is better now on nasal cannula. Currently on 3L Exam Narrative: Morbidly obese Patient is comfortable, NAD HEENT: eyes are clear and none icteric LUNGS: Normal respiratory effort ABD: Distended Lower extremities: no edema SKIN: nonjaundiced Neuro: grossly intact. Objective Data Vital Signs Vital Signs: Vital Signs - 24 hr 05/11/22 11:45 05/11/22 11:59 05/11/22 11:59 Temperature Pulse Rate 90 92 Respiratory Rate 28 H 28 H 38 H Blood Pressure Pulse Oximetry 95 Oxygen Delivery BiPAP Oxygen Flow Rate Fraction of Inspired Oxygen 05/11/22 12:00 05/11/22 12:20 05/11/22 12:29 Temperature Pulse Rate 104 H 97 100 Respiratory Rate Blood Pressure 126/30 L 116/44 L 98/33 L Pulse Oximetry Oxygen Delivery Oxygen Flow Rate Fraction of Inspired Oxygen 05/11/22 12:35 05/11/22 12:00 05/11/22 12:00 Temperature 97.3 F L Pulse Rate 100 106
--- NOTE | 2022-05-12 13:16 | P.PNNP_ITS ---
Progress Note: A&P Assessment and Plan (1) End stage renal disease: Code(s): N18.6 - End stage renal disease Status: Chronic Assessment and Plan: * HD tomorrow and continue M/W/ dialysis schedule * follow electrolytes, volume status, and clearance (2) Acute respiratory failure with hypoxia: Code(s): J96.01 - Acute respiratory failure with hypoxia Status: Acute Assessment and Plan: * suspect multifactorial: * pneumonia(?) * component of volume overload/pulmonary edema * reactive airway disease (asthma) * known history of LENORA * chronic heart failure * DUF (dry ultrafiltration) today for further fluid removal but this was limited by hpotension * antibiotics for possible pneumonia * nebulizer treatments but off steroids * supplemental oxygen - wean as tolerated * Pulmonary recommendations noted (3) Pneumonia: Qualifiers: Laterality: bilateral Lung location: unspecified part of lung Pneumonia type: due to unspecified organism Qualified Code(s): J18.9 - Pneumonia, unspecified organism Code(s): J18.9 - Pneumonia, unspecified organism Status: Acute Assessment and Plan: * suggestive by admission imaging * follow culture data * continue with with azithromycin and ceftriaxone (4) Hypotension: Code(s): I95.9 - Hypotension, unspecified Status: Chronic Assessment and Plan: * chronic issues at baseline * on midodrine therapy PRN * follow hemodynamics (5) Chronic anemia: Code(s): D64.9 - Anemia, unspecified Status: Chronic Assessment and Plan: * due to ESRD * Epogen with HD * follow trend of H/H Will continue to follow. Subjective Date/time seen: 05/12/22 13:16 Did not tolerated DUF session earlier today -- fluid removal limited to 1000cc due to significant drops in blood pressure despite use of midodrine and IV albumin; however, she tolerated HD treatment yesterday with 3L fluid removal; overall, her breathing/respiratory status seems to be doing better; low grade temperature overnight but no acute distress noted. Exam Narrative: General: mildly ill appearing AA female in NAD Heart: normal S1 and S2; no rub Lungs: coarse breath sounds Abdomen: soft, nontender, nondistended, positive bowel sounds Extremities: no cyanosis or clubbing; no edema Skin: warm and dry Objective Data Vital Signs Vital Signs: Vital Signs Temp Pulse Resp BP Pulse Ox O2 Del Method O2 Flow Rate 05/12/22 13:06 98.4 F 93 20 91/53 L 05/12/22 13:00 84 103/50 L 05/12/22 12:00 92 05/12/22 12:31 89 20 05/12/22 12:17 88 20 05/12/22 12:40 92 95/50 L 05/12/22 12:20 88 96/48 L 05/12/22 12:00 89 94/45 L 05/12/22 11:40 88 95/48 L 05/12/22 11:20 95 89/46 L 05/12/22 11:05 94 96/40 L 05/12/22 11:00 92 88/33 L 05/12/22 10:40 108 H 118/39 L 05/12/22 10:29 104 H 98/56 L 05/12/22 10:15 3 05/12/22 10:16 98.5 F 104 H 22 H 118/45 L 05/12/22 10:00 11 L 05/12/22 08:00 104 H 05/12/22 08:00 103 H 20 96 Nasal Cannula 3 05/12/22 08:00 98.3 F 100 20 93/54 L 96 05/12/22 08:14 103 H 20 03
--- NOTE | 2022-05-12 13:16 | PM.PNNEP ---
Progress Note: A&P Assessment and Plan (1) End stage renal disease: Code(s): N18.6 - End stage renal disease Status: Chronic Assessment and Plan: HD tomorrow and continue M/W/F dialysis schedule follow electrolytes, volume status, and clearance (2) Acute respiratory failure with hypoxia: Code(s): J96.01 - Acute respiratory failure with hypoxia Status: Acute Assessment and Plan: suspect multifactorial: pneumonia(?) component of volume overload/pulmonary edema reactive airway disease (asthma) known history of LENORA chronic heart failure DUF (dry ultrafiltration) today for further fluid removal but this was limited by hpotension antibiotics for possible pneumonia nebulizer treatments but off steroids supplemental oxygen - wean as tolerated Pulmonary recommendations noted (3) Pneumonia: Qualifiers: Laterality: bilateral Lung location: unspecified part of lung Pneumonia type: due to unspecified organism Qualified Code(s): J18.9 - Pneumonia, unspecified organism Code(s): J18.9 - Pneumonia, unspecified organism Status: Acute Assessment and Plan: suggestive by admission imaging follow culture data continue with with azithromycin and ceftriaxone (4) Hypotension: Code(s): I95.9 - Hypotension, unspecified Status: Chronic Assessment and Plan: chronic issues at baseline on midodrine therapy PRN follow hemodynamics (5) Chronic anemia: Code(s): D64.9 - Anemia, unspecified Status: Chronic Assessment and Plan: due to ESRD Epogen with HD follow trend of H/H Will continue to follow. Subjective Date/time seen: 05/12/22 13:16 Did not tolerated DUF session earlier today -- fluid removal limited to 1000cc due to significant drops in blood pressure despite use of midodrine and IV albumin; however, she tolerated HD treatment yesterday with 3L fluid removal; overall, her breathing/respiratory status seems to be doing better; low grade temperature overnight but no acute distress noted. Exam Narrative: General: mildly ill appearing AA female in NAD Heart: normal S1 and S2; no rub Lungs: coarse breath sounds Abdomen: soft, nontender, nondistended, positive bowel sounds Extremities: no cyanosis or clubbing; no edema Skin: warm and dry Objective Data Vital Signs Vital Signs: Vital Signs Temp Pulse Resp BP Pulse Ox O2 Del Method O2 Flow Rate 05/12/22 13:06 98.4 F 93 20 91/53 L 05/12/22 13:00 84 103/50 L 05/12/22 12:00 92 05/12/22 12:31 89 20 05/12/22 12:17 88 20 05/12/22 12:40 92 95/50 L 05/12/22 12:20 88 96/48 L 05/12/22 12:00 89 94/45 L 05/12/22 11:40 88 95/48 L 05/12/22 11:20 95 89/46 L 05/12/22 11:05 94 96/40 L 05/12/22 11:00 92 88/33 L 05/12/22 10:40 108 H 118/39 L 05/12/22 10:29 104 H 98/56 L 05/12/22 10:15 3 05/12/22 10:16 98.5 F 104 H 22 H 118/45 L 05/12/22 10:00 11 L 05/12/22 08:00 104 H 05/12/22 08:00 103 H 20 96 Nasal Cannula 3 05/12/22 08:00 98.3 F 100 20 93/54 L 96 05/12/22 08:14 103 H 20 05/12/22 07:45 96 20 05/12/22 07:45 91 Nasal Cannula 3 05/12/22 05:27 92 05/12/22 04:00 96 05/12/22 02:00 99 05/12/22 00:00 100 05/11/22 22:00 100 05/11/22 20:00 110 H 05/12/22 04:37 22 H 95 BiPAP 05/12/22 03:45 95 20 05/12/22 03:30 94 20 05/12/22 04:00 96 BiPAP 05/12/22 03:37 99.6 F 95 20 103/59 L 99 05/12/22 00:00 96 BiPAP 05/11/22 20:00 96 BiPAP 05/12/22 00:06 91 20 05/11/22 23:57 27 H 96 BiPAP 05/11/22 23:55 92 20 05/11/22 23:16 100.5 F H 109 H 20 103/55 L 96 05/11/22 20:50 90 20 94 High Flow Nasal Cannula 5 05/11/22 20:44 91 20 05/11/22
[2022-05-12] MEDS: ATORVASTATIN 20 MG TABLET PO (20:26)
[2022-05-12] MEDS: MONTELUKAST SODIUM 10 MG TABLET PO (20:26)
[2022-05-13] VITALS (40 sets, daily range): BP systolic 89–114; BP diastolic 44–60; PULSE 68–100; RESP 14–25; TEMP 36.3–36.7; O2SAT 93–100
[2022-05-13] MEDS: IPRATROPIUM BR 0.02% INH SOLN 0.5 MG/2.5 ML VIAL INHALATION ×5 (01:06→19:44)
[2022-05-13] MEDS: ALBUTEROL SULFATE NEB 2.5 MG/3 ML INH INHALATION ×5 (01:06→19:44)
[2022-05-13] MEDS: BUDESONIDE RESPULE NEB 0.5 MG/2 ML AMP INHALATION ×2 (08:33→19:44)
[2022-05-13] MEDS: ACETAMINOPHEN 325 MG TABLET 650 MG PO (08:50)
[2022-05-13] MEDS: GABAPENTIN 100 MG CAPSULE 200 MG PO ×2 (08:51→16:57)
[2022-05-13] MEDS: FLUoxetine HCL 20 MG CAPSULE PO (08:51)
[2022-05-13] MEDS: AZITHROMYCIN 250 MG TABLET 500 MG PO (08:51)
[2022-05-13] MEDS: VITAMIN B CMPLX/VIT C/FOLIC AC 1 CAPSULE 1 CAP PO (08:51)
[2022-05-13] MEDS: DIGOXIN TAB 125 MCG TABLET PO (08:51)
[2022-05-13] MEDS: PANTOPRAZOLE 40 MG TABLET PO ×2 (08:51→16:57)
[2022-05-13] MEDS: CALCIUM ACETATE 667 MG TABLET 1334 MG PO ×2 (08:52→16:57)
[2022-05-13] MEDS: APIXABAN 2.5 MG TABLET PO ×2 (08:52→21:30)
[2022-05-13] MEDS: AMOXICILLIN/CLAVULANATE K 500-125 MG TAB 1 TABLET PO ×2 (08:52→21:30)
[2022-05-13] MEDS: MIDODRINE HCL 2.5 MG TABLET 5 MG PO (11:52)
[2022-05-13] MEDS: EPOETIN ALFA-EPBX 10,000 UNITS/ML VIAL 10000 UNITS IV PUSH (12:03)
--- NOTE | 2022-05-13 13:12 | PM.IMPN ---
Progress Note: A&P Assessment and Plan (1) Pneumonia: Qualifiers: Laterality: bilateral Lung location: unspecified part of lung Pneumonia type: due to unspecified organism Qualified Code(s): J18.9 - Pneumonia, unspecified organism Code(s): J18.9 - Pneumonia, unspecified organism Status: Acute Assessment and Plan: Continue with azithromycin and Rocephin Sputum and blood cultures are pending Continue DuoNebs Solu-Medrol has been discontinued. Continue oral antibiotics (2) End-stage renal disease on hemodialysis: Onset Date: 09/2009 Code(s): N18.6 - End stage renal disease; Z99.2 - Dependence on renal dialysis Status: Acute Assessment and Plan: Patient has dialysis Monday Nephrology has been consulted the patient did have dialysis today. (3) Obstructive sleep apnea: Code(s): G47.33 - Obstructive sleep apnea (adult) (pediatric) Status: Acute Assessment and Plan: Titrate CPAP/BiPAP to home setting (4) Paroxysmal atrial fibrillation: Code(s): I48.0 - Paroxysmal atrial fibrillation Status: Acute Assessment and Plan: Continue with Eliquis and metoprolol However the patient is on midodrine for hypotension (5) Gastroesophageal reflux disease: Code(s): K21.9 - Gastro-esophageal reflux disease without esophagitis Status: Acute Assessment and Plan: Continue with home medication (6) Hypothyroidism: Code(s): E03.9 - Hypothyroidism, unspecified Status: Acute Assessment and Plan: Check thyroid (7) Chronic anemia: Code(s): D64.9 - Anemia, unspecified Status: Chronic Assessment and Plan: Secondary to end-stage renal disease Continue to monitor At baseline (8) Non-ischemic cardiomyopathy: Code(s): I42.8 - Other cardiomyopathies Status: Acute Assessment and Plan: Continue with home medications (9) Combined systolic and diastolic congestive heart failure: Code(s): I50.40 - Unspecified combined systolic (congestive) and diastolic (congestive) heart failure Status: Acute Assessment and Plan: No previous echoes noted in our system Check echo The patient stated that she cannot have Lasix. Continue with metoprolol (10) Chronic obstructive pulmonary disease: Code(s): J44.9 - Chronic obstructive pulmonary disease, unspecified Status: Acute Assessment and Plan: Continue with Solu-Medrol DuoNebs Continue with Singulair (11) Acute respiratory failure with hypoxia: Code(s): J96.01 - Acute respiratory failure with hypoxia Status: Acute Assessment and Plan: Check echo She is currently being treated for pneumonia She is also getting Solu-Medrol for her COPD. Subjective Date/time seen: 05/13/22 13:12 No new complaints Exam Narrative: Morbidly obese Patient is comfortable, NAD HEENT: eyes are clear and none icteric LUNGS: Normal respiratory effort ABD: Distended Lower extremities: no edema SKIN: nonjaundiced Neuro: grossly intact. Objective Data Vital Signs Vital Signs: Vital Signs - 24 hr 05/12/22 14:13 05/12/22 14:00 05/12/22 15:40 Temperature 97.3 F L Pulse Rate 96 98 99 Respiratory Rate 22 H 20 Blood Pressure 96/53 L Pulse Oximetry 95 Oxygen Delivery Oxygen Flow Rate Fraction of Inspired Oxygen 05/12/22 15:51 05/12/22 16:00 05/12/22 16:00 Temperature 98.5 F Pulse Rate 97 100 101 H Respiratory Rate 20 22 H 18 Blood Pressure 102/58 L Pulse Oximetry 95 97 Oxygen Delivery Nasal Cannula Oxygen Flow Rate 3 Fraction of Inspired Oxygen 05/12/22 16:00 05/12/22 18:00 05/12/22 20:00 Temperature 97.7 F Pulse Rate 105 H 93 88 Respiratory Rate 23 H Blood Pressure 94/58 L Pulse Oximetry 97 Oxygen Delivery Oxygen Flow Rate Fraction of Inspired Oxygen 05/12/22 20:00 05/12/22 20:00 05/12/22 22:00 Temperature
--- NOTE | 2022-05-13 13:15 | P.PNNP_ITS ---
Progress Note: A&P Assessment and Plan (1) End stage renal disease: Code(s): N18.6 - End stage renal disease Status: Chronic Assessment and Plan: * HD today and continue M/W/ dialysis schedule * follow electrolytes, volume status, and clearance (2) Acute respiratory failure with hypoxia: Code(s): J96.01 - Acute respiratory failure with hypoxia Status: Acute Assessment and Plan: * suspect multifactorial: * pneumonia(?) * component of volume overload/pulmonary edema * reactive airway disease (asthma) * known history of LENORA * chronic heart failure * DUF (dry ultrafiltration) yesterday for further fluid removal but this was limited by hypotension * reattempt DUF tomorrow if remains hospitalized * antibiotics for possible pneumonia * nebulizer treatments but off steroids * supplemental oxygen - wean as tolerated * Pulmonary recommendations noted (3) Pneumonia: Qualifiers: Laterality: bilateral Lung location: unspecified part of lung Pneumonia type: due to unspecified organism Qualified Code(s): J18.9 - Pneumonia, unspecified organism Code(s): J18.9 - Pneumonia, unspecified organism Status: Acute Assessment and Plan: * suggestive by admission imaging * follow culture data * continue with with oral antibiotics (4) Hypotension: Code(s): I95.9 - Hypotension, unspecified Status: Chronic Assessment and Plan: * chronic issues at baseline * on midodrine therapy PRN * follow hemodynamics (5) Chronic anemia: Code(s): D64.9 - Anemia, unspecified Status: Chronic Assessment and Plan: * due to ESRD * Epogen with HD * follow trend of H/H Will continue to follow. Subjective Date/time seen: 05/13/22 13:15 Tolerating dialysis treatment at the time of my visit (see on HD at ~ 1:00PM); fluid removal somewhat limited by hemodynamics again; breathing/respiratory se junito better/improved as oxygen weaned down to nasal cannula; no other acute issues or problems voiced; no apparent distress. Exam Narrative: General: mildly ill appearing AA female in NAD Heart: normal S1 and S2; no rub Lungs: coarse breath sounds Abdomen: soft, nontender, nondistended, positive bowel sounds Extremities: no cyanosis or clubbing; no edema Skin: warm and intact Objective Data Vital Signs Vital Signs: Vital Signs Temp Pulse Resp BP Pulse Ox Pulse Ox O2 Del Method 05/13/22 13:00 90 03/24/23 12:00 88 05/13/22 11:00 85 89/46 L 05/13/22 10:40 82 90/48 L 05/13/22 10:19 89 105/55 L 05/13/22 10:00 05/13/22 10:02 98.0 F 89 18 97/51 L 05/13/22 12:00 96 Nasal Cannula 05/13/22 10:00 88 05/13/22 08:00 96 05/13/22 09:37 93 25 H 99 BiPAP 05/13/22 08:53 94 18 05/13/22 08:51 91 05/13/22 08:00 97.9 F 88 22 H 114/59 L 100 05/13/22 08:30 88 20 05/13/22 08:30 88 95 High Flow Nasal Cannula 05/13/22 08:00 95 Nasal Cannula 05/13/22 06:00 83 05/13/22 05:15 81 23 H 96 BiPAP 05/13/22 05:15 81 23 H 05/13/22 01:20 89 20 05/13/22 04:00 79 05/13/22 04:00 80 18 96 B
--- NOTE | 2022-05-13 13:15 | PM.PNNEP ---
Progress Note: A&P Assessment and Plan (1) End stage renal disease: Code(s): N18.6 - End stage renal disease Status: Chronic Assessment and Plan: HD today and continue M/W/F dialysis schedule follow electrolytes, volume status, and clearance (2) Acute respiratory failure with hypoxia: Code(s): J96.01 - Acute respiratory failure with hypoxia Status: Acute Assessment and Plan: suspect multifactorial: pneumonia(?) component of volume overload/pulmonary edema reactive airway disease (asthma) known history of LENORA chronic heart failure DUF (dry ultrafiltration) yesterday for further fluid removal but this was limited by hypotension reattempt DUF tomorrow if remains hospitalized antibiotics for possible pneumonia nebulizer treatments but off steroids supplemental oxygen - wean as tolerated Pulmonary recommendations noted (3) Pneumonia: Qualifiers: Laterality: bilateral Lung location: unspecified part of lung Pneumonia type: due to unspecified organism Qualified Code(s): J18.9 - Pneumonia, unspecified organism Code(s): J18.9 - Pneumonia, unspecified organism Status: Acute Assessment and Plan: suggestive by admission imaging follow culture data continue with with oral antibiotics (4) Hypotension: Code(s): I95.9 - Hypotension, unspecified Status: Chronic Assessment and Plan: chronic issues at baseline on midodrine therapy PRN follow hemodynamics (5) Chronic anemia: Code(s): D64.9 - Anemia, unspecified Status: Chronic Assessment and Plan: due to ESRD Epogen with HD follow trend of H/H Will continue to follow. Subjective Date/time seen: 05/13/22 13:15 Tolerating dialysis treatment at the time of my visit (see on HD at ~ 1:00PM); fluid removal somewhat limited by hemodynamics again; breathing/respiratory seeme better/improved as oxygen weaned down to nasal cannula; no other acute issues or problems voiced; no apparent distress. Exam Narrative: General: mildly ill appearing AA female in NAD Heart: normal S1 and S2; no rub Lungs: coarse breath sounds Abdomen: soft, nontender, nondistended, positive bowel sounds Extremities: no cyanosis or clubbing; no edema Skin: warm and intact Objective Data Vital Signs Vital Signs: Vital Signs Temp Pulse Resp BP Pulse Ox Pulse Ox O2 Del Method 05/13/22 13:00 90 05/13/22 12:00 88 05/13/22 11:00 85 89/46 L 05/13/22 10:40 82 90/48 L 05/13/22 10:19 89 105/55 L 05/13/22 10:00 05/13/22 10:02 98.0 F 89 18 97/51 L 05/13/22 12:00 96 Nasal Cannula 05/13/22 10:00 88 05/13/22 08:00 96 05/13/22 09:37 93 25 H 99 BiPAP 05/13/22 08:53 94 18 05/13/22 08:51 91 05/13/22 08:00 97.9 F 88 22 H 114/59 L 100 05/13/22 08:30 88 20 05/13/22 08:30 88 95 High Flow Nasal Cannula 05/13/22 08:00 95 Nasal Cannula 05/13/22 06:00 83 05/13/22 05:15 81 23 H 96 BiPAP 05/13/22 05:15 81 23 H 05/13/22 01:20 89 20 05/13/22 04:00 79 05/13/22 04:00 80 18 96 BiPAP 05/13/22 03:49 97.9 F 85 22 H 96/50 L 99 05/13/22 02:00 84 05/12/22 21:20 91 25 H 05/12/22 20:50 95 BiPAP 05/13/22 01:08 84 20 93 BiPAP 05/13/22 01:07 84 20 05/12/22 20:25 88 25 H 05/12/22 20:50 88 25 H 95 BiPAP 05/13/22 00:00 91 16 93 BiPAP 05/13/22 00:00 91 05/12/22 23:15 97.7 F 91 20 99/56 L 93 05/12/22 22:00 90 05/12/22 20:00 91 05/12/22 20:00 91 16 96 BiPAP 05/12/22 20:00 97.7 F 88 23 H 94/58 L 97 05/12/22 18:00 93 Intake/Output Intake/Output: Intake & Output 05/10/22 05/11/22 05/12/22 05/13/22 23:59 23:59 23:59 23:59 Intake Total 400 980 920 560 Output Total 3000 3000 1000
--- NOTE | 2022-05-13 18:56 | P.PNPL_ITS ---
Progress Note: A&P Assessment and Plan (1) Acute respiratory failure with hypoxia: Code(s): J96.01 - Acute respiratory failure with hypoxia Status: Acute Assessment and Plan: Patient with a history of end-stage renal disease, nonischemic cardiomyopathy and per cardiology's last note on 08/31/2020 states that this has resolved over the years with medical treatment and ablation for her atrial arrhythmias, Asthma, presents with shortness of breath, hypoxia, wheezing, no leukocytosis, afebrile and sputum that is changed from clear to yellow. BNP 95523 and CXR with diffuse opacities and CM. She has currently improved with 1.5 L removed with emergent hemodialysis this morning, bronchodilators, steroids and antibiotics. Etiology of patient's acute respiratory failure with hypoxia include fluid overload, pneumonia, and or asthma exacerbation. agree with aggressive fluid removal per hemodialysis as tolerated by her cardiac and renal Systems. Nephrology is following. Goal today is 2-3 L out and I spoke with the coffee machine technician and her blood pressure is tolerating fluid removal so far and he will attempt to remove 3 L. the patient tells me they have never removed more than 3 L in the past. Covid and influenza RT PCR studies are negative. Blood and sputum cultures are pending. At this time I would continue ceftriaxone and azithromycin both started on 05/09. The patient had wheezing on exam is and was started on Solu-Medrol for COPD exacerbation. Per the patient she has had outpatient breathing studies and her care connector does not feel she has COPD. The patient does tell me she has asthma. The patient did not feel that her asthma was flaring at this time. Currently she is not wheezing. At this time I will discontinue the Solu-Medrol and place her on albuterol 2.5 mg nebs q.4 hours, ipratropium 0.5 mg nebs Q 6 hours and budesonide 500 mcg nebulized b.i.d.. We will continue her montelukast 10 mg p.o. q.h.s. She felt a BiPAP pressures were uncomfortable and tolerated AVAPS mode?with a set rate of 20, tidal volume 500, EPAP 5, minimal inspiratory pressure 6, maximal inspiratory pressure 25, inspiratory time 1.0, rise of 1 which is the fastest and 50% FiO2. 05/11 patient tells me she was much improved after her ultrafiltration of 3 L off yesterday. She tolerated off of BiPAP for 2-3 hours in the afternoon and wore the hospital noninvasive ventilator with the AVAPS settings as above overnight. Currently the patient is on hemodialysis and on the noninvasive ventilator with the AVAPS mode. She states she is doing much better and states that she feels she is 50% back to her baseline. She has less chest heaviness, is breathing easier and has no wheezing. Goal hemodialysis fluid removal is 3- 4 L. Plan: the patient continues to improve from a respiratory viewpoint with fluid removal and discontinuation of systemic steroids. I think asthma exacerbation is less likely. I think pneumonia is less likely but I will continue to treat for now. Continue albuterol 2.5 mg nebs q.4 hours, ipratropium 0.5 mg nebs Q4 hours, budesonide 500 mcg nebulized b.i.d and montelukast 10 mg p.o. q.h.s. Continue ceftriaxone and as a azithromycin day 3. regarding her a VATS settings she said she prefers arise level of 2 today which I have made. Her saturations are 100% and will try p.r.n. noninvasive ventilation throughout the day but she should wear the hospital noninvasive ventilator with the above-mentioned AVAPS settings tonight, I will decrease to 40%. 05/12 Patient tolerated hemodialysis with 3 L off yesterday. She was off BiPAP in the afternoon for 5 hours and wore the hospital noninvasive ventilator with the AVAPS mode ove
[2022-05-13] MEDS: MONTELUKAST SODIUM 10 MG TABLET PO (21:30)
[2022-05-13] MEDS: ATORVASTATIN 20 MG TABLET PO (21:30)
[2022-05-14] VITALS (27 sets, daily range): BP systolic 105–122; BP diastolic 23–65; PULSE 82–103; RESP 20–32; TEMP 36.3–36.6; O2SAT 94–100
[2022-05-14] MEDS: ALBUTEROL SULFATE NEB 2.5 MG/3 ML INH INHALATION ×5 (01:49→21:07)
[2022-05-14] MEDS: IPRATROPIUM BR 0.02% INH SOLN 0.5 MG/2.5 ML VIAL INHALATION ×5 (01:49→21:07)
[2022-05-14] MEDS: BUDESONIDE RESPULE NEB 0.5 MG/2 ML AMP INHALATION ×2 (08:10→21:07)
[2022-05-14] MEDS: FLUoxetine HCL 20 MG CAPSULE PO (09:11)
[2022-05-14] MEDS: SENNA/DOCUSATE SODIUM TABLET 1 TAB PO (11:19)
[2022-05-14] MEDS: PANTOPRAZOLE 40 MG TABLET PO ×2 (11:20→17:19)
[2022-05-14] MEDS: CALCIUM ACETATE 667 MG TABLET 1334 MG PO ×2 (11:20→17:19)
[2022-05-14] MEDS: VITAMIN B CMPLX/VIT C/FOLIC AC 1 CAPSULE 1 CAP PO (11:20)
[2022-05-14] MEDS: APIXABAN 2.5 MG TABLET PO ×2 (11:20→21:17)
[2022-05-14] MEDS: GABAPENTIN 100 MG CAPSULE 200 MG PO ×2 (11:20→17:19)
--- NOTE | 2022-05-14 12:44 | PM.IMPN ---
Progress Note: A&P Assessment and Plan (1) Pneumonia: Qualifiers: Laterality: bilateral Lung location: unspecified part of lung Pneumonia type: due to unspecified organism Qualified Code(s): J18.9 - Pneumonia, unspecified organism Code(s): J18.9 - Pneumonia, unspecified organism Status: Acute Assessment and Plan: Sputum and blood cultures are pending Continue DuoNebs Solu-Medrol has been discontinued. Continue oral antibiotics (2) End-stage renal disease on hemodialysis: Onset Date: 09/2009 Code(s): N18.6 - End stage renal disease; Z99.2 - Dependence on renal dialysis Status: Acute Assessment and Plan: Patient has dialysis Monday Nephrology has been consulted the patient did have dialysis today. (3) Obstructive sleep apnea: Code(s): G47.33 - Obstructive sleep apnea (adult) (pediatric) Status: Acute Assessment and Plan: Titrate CPAP/BiPAP to home setting (4) Paroxysmal atrial fibrillation: Code(s): I48.0 - Paroxysmal atrial fibrillation Status: Acute Assessment and Plan: Continue with Eliquis and metoprolol However the patient is on midodrine for hypotension (5) Gastroesophageal reflux disease: Code(s): K21.9 - Gastro-esophageal reflux disease without esophagitis Status: Acute Assessment and Plan: Continue with home medication (6) Hypothyroidism: Code(s): E03.9 - Hypothyroidism, unspecified Status: Acute Assessment and Plan: Check thyroid (7) Chronic anemia: Code(s): D64.9 - Anemia, unspecified Status: Chronic Assessment and Plan: Secondary to end-stage renal disease Continue to monitor At baseline (8) Non-ischemic cardiomyopathy: Code(s): I42.8 - Other cardiomyopathies Status: Acute Assessment and Plan: Continue with home medications (9) Combined systolic and diastolic congestive heart failure: Code(s): I50.40 - Unspecified combined systolic (congestive) and diastolic (congestive) heart failure Status: Acute Assessment and Plan: No previous echoes noted in our system Check echo The patient stated that she cannot have Lasix. Continue with metoprolol (10) Chronic obstructive pulmonary disease: Code(s): J44.9 - Chronic obstructive pulmonary disease, unspecified Status: Acute Assessment and Plan: Continue with Solu-Medrol DuoNebs Continue with Singulair (11) Acute respiratory failure with hypoxia: Code(s): J96.01 - Acute respiratory failure with hypoxia Status: Acute Assessment and Plan: Check echo She is currently being treated for pneumonia She is also getting Solu-Medrol for her COPD. Subjective Date/time seen: 05/14/22 12:44 No new complaints, on 2L of oxygen today. Improved. Hemodialysis planned for this afternoon Exam Narrative: Morbidly obese Patient is comfortable, NAD HEENT: eyes are clear and none icteric LUNGS: Normal respiratory effort ABD: Distended Lower extremities: no edema SKIN: nonjaundiced Neuro: grossly intact. Objective Data Vital Signs Vital Signs: Vital Signs - 24 hr 05/13/22 14:00 05/13/22 14:55 05/13/22 14:30 Temperature 97.5 F L Pulse Rate 90 93 Respiratory Rate 20 Blood Pressure 102/55 L Pulse Oximetry 98 Pulse Oximetry [At Rest Prior to Therapy Session] 100 Oxygen Delivery Oxygen Flow Rate Fraction of Inspired Oxygen 05/13/22 16:03 05/13/22 16:16 05/13/22 16:00 Temperature Pulse Rate 100 98 Respiratory Rate 18 18 Blood Pressure Pulse Oximetry 98 Pulse Oximetry [At Rest Prior to Therapy Session] Oxygen Delivery Nasal Cannula Oxygen Flow Rate 2 Fraction of Inspired Oxygen 05/13/22 16:00 05/13/22 16:00 05/13/22 18:00 Temperature 97.3 F L Pulse Rate 98 100 94 Respiratory Rate 24 H Blood Pressure 107/58 L Pulse Oximetry 98 Pulse Oximetry [A
--- NOTE | 2022-05-14 13:38 | PM.PNNEP ---
Progress Note: A&P Assessment and Plan (1) End stage renal disease: Code(s): N18.6 - End stage renal disease Status: Chronic Assessment and Plan: HD yesterday and continue M/W/ dialysis schedule follow electrolytes, volume status, and clearance (2) Acute respiratory failure with hypoxia: Code(s): J96.01 - Acute respiratory failure with hypoxia Status: Acute Assessment and Plan: suspect multifactorial: pneumonia(?) component of volume overload/pulmonary edema reactive airway disease (asthma) known history of LENORA chronic heart failure DUF (dry ultrafiltration) today for further fluid removal as tolerated antibiotics for possible pneumonia nebulizer treatments but off steroids supplemental oxygen - wean as tolerated Pulmonary recommendations noted (3) Pneumonia: Qualifiers: Laterality: bilateral Lung location: unspecified part of lung Pneumonia type: due to unspecified organism Qualified Code(s): J18.9 - Pneumonia, unspecified organism Code(s): J18.9 - Pneumonia, unspecified organism Status: Acute Assessment and Plan: suggestive by admission imaging follow culture data continue with with oral antibiotics (4) Hypotension: Code(s): I95.9 - Hypotension, unspecified Status: Chronic Assessment and Plan: chronic issues at baseline on midodrine therapy PRN follow hemodynamics (5) Chronic anemia: Code(s): D64.9 - Anemia, unspecified Status: Chronic Assessment and Plan: due to ESRD Epogen with HD follow trend of H/H Will continue to follow. Subjective Date/time seen: 05/14/22 13:38 Tolerated hemodialysis treatment yesterday without any issue or problems; breathing/respiratory status continues to improve with less oxygen requirements; she voices concerns about being able to drive to her outpatient dialysis treatments as well as ambulate at home since she lives in a townhouse (i.e. has to go up/down stairs) following discharge. Exam Narrative: General: chronically ill appearing AA female in NAD Heart: normal S1 and S2; no rub Lungs: coarse breath sounds Abdomen: soft, nontender, nondistended, positive bowel sounds Extremities: no cyanosis or clubbing; no edema Skin: warm and intact Objective Data Vital Signs Vital Signs: Vital Signs Temp Pulse Resp BP Pulse Ox O2 Del Method O2 Flow Rate 05/14/22 13:24 96 20 05/14/22 13:08 95 20 05/14/22 12:00 93 05/14/22 12:00 97.3 F L 95 20 105/23 L 95 05/14/22 12:00 94 Room Air 05/14/22 10:00 98 05/14/22 08:00 92 05/14/22 08:00 97.5 F L 85 28 H 111/54 L 100 05/14/22 08:33 101 H 20 05/14/22 08:13 99 High Flow Nasal Cannula 2 05/14/22 08:12 103 H 20 05/14/22 07:50 97 Nasal Cannula 2 05/14/22 06:00 82 05/14/22 04:49 85 22 H 05/14/22 03:55 85 22 H 99 BiPAP 05/14/22 04:00 100 BiPAP 05/14/22 04:00 85 05/14/22 04:00 98 F 90 22 H 122/62 100 05/14/22 02:00 88 05/14/22 00:00 100 BiPAP 05/14/22 00:00 87 05/13/22 19:44 82 14 05/14/22 01:50 85 20 05/14/22 00:01 90 22 H 98 BiPAP 05/13/22 23:49 97.6 F 89 20 104/57 L 100 05/13/22 22:00 92 05/13/22 20:00 99 Nasal Cannula 2 05/13/22 20:00 92 05/13/22 20:00 97.7 F 91 20 105/55 L 99 05/13/22 18:00 94 05/13/22 16:00 100 05/13/22 16:00 97.3 F L 98 24 H 107/58 L 98 05/13/22 16:00 98 Nasal Cannula 2 05/13/22 16:16 98 18 05/13/22 16:03 100 18 Intake/Output Intake/Output: Intake & Output 05/11/22 05/12/22 05/13/22 05/14/22 23:59 23:59 23:59 23:59 Intake Total 980 920 920 0 Output Total 3000 1000 1000 300 Balance -2019 -80 -80 -300 Meds/Results Medications: Active Medications Generic Name Dose Rou
--- NOTE | 2022-05-14 13:38 | P.PNNP_ITS ---
Progress Note: A&P Assessment and Plan (1) End stage renal disease: Code(s): N18.6 - End stage renal disease Status: Chronic Assessment and Plan: * HD yesterday and continue M/W/ dialysis schedule * follow electrolytes, volume status, and clearance (2) Acute respiratory failure with hypoxia: Code(s): J96.01 - Acute respiratory failure with hypoxia Status: Acute Assessment and Plan: * suspect multifactorial: * pneumonia(?) * component of volume overload/pulmonary edema * reactive airway disease (asthma) * known history of LENORA * chronic heart failure * DUF (dry ultrafiltration) today for further fluid removal as tolerated * antibiotics for possible pneumonia * nebulizer treatments but off steroids * supplemental oxygen - wean as tolerated * Pulmonary recommendations noted (3) Pneumonia: Qualifiers: Laterality: bilateral Lung location: unspecified part of lung Pneumonia type: due to unspecified organism Qualified Code(s): J18.9 - Pneumonia, unspecified organism Code(s): J18.9 - Pneumonia, unspecified organism Status: Acute Assessment and Plan: * suggestive by admission imaging * follow culture data * continue with with oral antibiotics (4) Hypotension: Code(s): I95.9 - Hypotension, unspecified Status: Chronic Assessment and Plan: * chronic issues at baseline * on midodrine therapy PRN * follow hemodynamics (5) Chronic anemia: Code(s): D64.9 - Anemia, unspecified Status: Chronic Assessment and Plan: * due to ESRD * Epogen with HD * follow trend of H/H Will continue to follow. Subjective Date/time seen: 05/14/22 13:38 Tolerated hemodialysis treatment yesterday without any issue or problems; breathing/respiratory status continues to improve with less oxygen requirements; she voices concerns about being able to drive to her outpatient dialysis t reatments as well as ambulate at home since she lives in a townhouse (i.e. has to go up/down stairs) following discharge. Exam Narrative: General: chronically ill appearing AA female in NAD Heart: normal S1 and S2; no rub Lungs: coarse breath sounds Abdomen: soft, nontender, nondistended, positive bowel sounds Extremities: no cyanosis or clubbing; no edema Skin: warm and intact Objective Data Vital Signs Vital Signs: Vital Signs Temp Pulse Resp BP Pulse Ox O2 Del Method O2 Flow Rate 03/25/23 13:24 96 20 05/14/22 13:08 95 20 05/14/22 12:00 93 05/14/22 12:00 97.3 F L 95 20 105/23 L 95 05/14/22 12:00 94 Room Air 05/14/22 10:00 98 05/14/22 08:00 92 05/14/22 08:00 97.5 F L 85 28 H 111/54 L 100 05/14/22 08:33 101 H 20 05/14/22 08:13 99 High Flow Nasal Cannula 2 05/14/22 08:12 103 H 20 05/14/22 07:50 97 Nasal Cannula 2 05/14/22 06:00 82 05/14/22 04:49 85 22 H 05/14/22 03:55 85 22 H 99 BiPAP 05/14/22 04:00 100 BiPAP 05/14/22 04:00 85 05/14/22 04:00 98 F 90 22 H 122/62 100 05/14/22 02:00 88 05/14/22 00:00 100 BiPAP 05/14/22 00:00 87 05/13/22 19:44 82 14 05/14/22 01:50 85
[2022-05-14] MEDS: AMOXICILLIN/CLAVULANATE K 500-125 MG TAB 1 TABLET PO (21:16)
[2022-05-14] MEDS: MONTELUKAST SODIUM 10 MG TABLET PO (21:17)
[2022-05-14] MEDS: ATORVASTATIN 20 MG TABLET PO (21:17)
--- NOTE | 2022-05-14 22:00 | PCHDNOTE ---
Patient refused extra dialysis treatment. Dr. Squires notified. Patient will have extra treatment for fluid removal in AM.
[2022-05-15] VITALS (37 sets, daily range): BP systolic 92–140; BP diastolic 49–71; PULSE 74–100; RESP 16–29; TEMP 0–36.6; O2SAT 95–100
[2022-05-15] MEDS: IPRATROPIUM BR 0.02% INH SOLN 0.5 MG/2.5 ML VIAL INHALATION ×5 (00:05→20:46)
[2022-05-15] MEDS: ALBUTEROL SULFATE NEB 2.5 MG/3 ML INH INHALATION ×5 (00:05→20:46)
[2022-05-15 03:54] LABS: Hematocrit 25.4 % (37.0-47.0); Hemoglobin 7.9 g/dL (12.0-15.0); Mean Corpuscular HGB Conc 31.1 g/dl (32-36); Mean Corpuscular Hemoglobin 29.2 pg (26-34); Mean Corpuscular Volume 93.7 fl (80-100); Platelet Count Result 239 k/mm3 (150-375); Red Blood Count 2.71 M/mm3 (4.2-5.4); Red Cell Distribution Width 13.2 % (11.5-14.5); White Blood Count 7.4 K/mm3 (4.5-10.0)
[2022-05-15 03:55] LABS: Basophils Percent Auto 0.4 % (0.2-1.2); Eosinophils Absolute Auto 0.5 K/mm3 (0-0.3); Eosinophils Percent Auto 6.8 % (0-4.4); Immature Granulocyte Absolute 0.09 K/mm3 (0.00-0.031); Immature Granulocyte Percent A 1.2 % (0-0.5); Lymphocytes Percent Auto 28.4 % (18.3-44.2); Mean Platelet Volume 9.6 fl (7.4-10.4); Monocytes Absolute Auto 0.8 K/mm3 (0.1-0.6); Monocytes Percent Auto 10.7 % (2.6-8.5); Neutrophils Absolute Auto 3.9 K/mm3 (1.3-6.7); Neutrophils Percent Auto 52.5 % (45.5-73.1)
[2022-05-15 04:03] LABS: Anion Gap 11 mmol/L (8-16); Blood Urea Nitrogen 38 mg/dL (7-17); Calcium 10.1 mg/dL (8.4-10.2); Carbon Dioxide 27 mmol/L (22-30); Chloride 102 mmol/L (98-107); Estimated CRCL calculation 6 ml/min; Estimated Glomerular Filt Rate 5; Glucose 101 mg/dL (65-110); Sodium 140 mmol/L (137-145)
--- NOTE | 2022-05-15 06:26 | PCRCNOTE ---
Window of time for administration has passed. See next scheduled administration.
[2022-05-15] MEDS: BUDESONIDE RESPULE NEB 0.5 MG/2 ML AMP INHALATION ×2 (07:33→20:46)
--- NOTE | 2022-05-15 07:36 | PC.NURSE ---
Upon RN AM assessment. RN noticed a med cup full of pill. Patient stated that they were from 2100 the previous night, she was on breathing treatment and then forgot to take her pills. RN disposed of pills.
[2022-05-15] MEDS: FLUoxetine HCL 10 MG CAPSULE PO (08:25)
[2022-05-15] MEDS: MIDODRINE HCL 2.5 MG TABLET 5 MG PO ×2 (10:00→18:40)
--- NOTE | 2022-05-15 12:00 | P.PNNP_ITS ---
Progress Note: A&P Assessment and Plan (1) End stage renal disease: Code(s): N18.6 - End stage renal disease Status: Chronic Assessment and Plan: * HD tomorrow and continue M/W/F dialysis schedule while hospitalized * follow electrolytes, volume status, and clearance (2) Acute respiratory failure with hypoxia: Code(s): J96.01 - Acute respiratory failure with hypoxia Status: Acute Assessment and Plan: * slow improvement * suspect multifactorial: * pneumonia(?) * component of volume overload/pulmonary edema * reactive airway disease (asthma) * known history of LENORA * chronic heart failure * DUF (dry ultrafiltration) on non-HD days for further fluid removal as tolerated * antibiotics for possible pneumonia * nebulizer treatments but off steroids * supplemental oxygen - wean as tolerated * Pulmonary recommendations noted (3) Pneumonia: Qualifiers: Laterality: bilateral Lung location: unspecified part of lung Pneumo saturnino type: due to unspecified organism Qualified Code(s): J18.9 - Pneumonia, unspecified organism Code(s): J18.9 - Pneumonia, unspecified organism Status: Acute Assessment and Plan: * suggestive by admission imaging * follow culture data * continue with with oral antibiotics (4) Hypotension: Code(s): I95.9 - Hypotension, unspecified Status: Chronic Assessment and Plan: * chronic issues at baseline * on midodrine therapy PRN and with HD/DUF treatments * follow hemodynamics (5) Chronic anemia: Code(s): D64.9 - Anemia, unspecified Status: Chronic Assessment and Plan: * due to ESRD * Epogen with HD * follow trend of H/H Will continue to follow. Subjective Date/time seen: 05/15/22 12:00 Just completed her session of dry ultrafiltration today (rescheduled for this AM since patient did not want to receive treatment at 10PM yesterday evening) with 2.5L fluid removal; tolerated this intervention reasonably well (post-tx weight was 79.7kg); breathing/respiratory status better but still requiring supplemental oxygen at the time of my visit. Exam Narrative: General: chronically ill appearing AA female in NAD Heart: normal S1 and S2; no rub Lungs: coarse breath sounds Abdomen: soft, nontender, nondistended, positive bowel sounds Extremities: no cyanosis or clubbing; no edema Skin: no rash Objective Data Vital Signs Vital Signs: Vital Signs Temp Pulse Resp BP Pulse Ox O2 Del Method O2 Flow Rate 05/15/22 12:00 97.5 F L 95 16 104/61 96 05/15/22 11:41 83 18 05/15/22 11:26 77 18 05/15/22 11:26 77 18 100 High Flow Nasal Cannula 2 05/15/22 10:00 78 05/15/22 08:00 90 05/15/22 11:25 98 F 75 16 122/57 L 100 05/15/22 11:18 79 99/52 L 05/15/22 11:00 76 106/53 L 05/15/22 10:45 77 110/53 L 05/15/22 10:15 75 117/56 L 05/15/22 10:30 74 105/53 L 05/15/22 09:45 81 100/55 L 05/15/22 09:30 82 108/50 L 05/15/22 09:15 85 103/52 L 05/15/22 09:00 87 104/58 L 05/15/22 10:00 80 101/49 L 05/15/22 08:48 88 119/66 05/15/22 08:37 98 F 93 16 140/70 99 05/15/22 08:37 2
--- NOTE | 2022-05-15 12:00 | PM.PNNEP ---
Progress Note: A&P Assessment and Plan (1) End stage renal disease: Code(s): N18.6 - End stage renal disease Status: Chronic Assessment and Plan: HD tomorrow and continue M/W/F dialysis schedule while hospitalized follow electrolytes, volume status, and clearance (2) Acute respiratory failure with hypoxia: Code(s): J96.01 - Acute respiratory failure with hypoxia Status: Acute Assessment and Plan: slow improvement suspect multifactorial: pneumonia(?) component of volume overload/pulmonary edema reactive airway disease (asthma) known history of LENORA chronic heart failure DUF (dry ultrafiltration) on non-HD days for further fluid removal as tolerated antibiotics for possible pneumonia nebulizer treatments but off steroids supplemental oxygen - wean as tolerated Pulmonary recommendations noted (3) Pneumonia: Qualifiers: Laterality: bilateral Lung location: unspecified part of lung Pneumonia type: due to unspecified organism Qualified Code(s): J18.9 - Pneumonia, unspecified organism Code(s): J18.9 - Pneumonia, unspecified organism Status: Acute Assessment and Plan: suggestive by admission imaging follow culture data continue with with oral antibiotics (4) Hypotension: Code(s): I95.9 - Hypotension, unspecified Status: Chronic Assessment and Plan: chronic issues at baseline on midodrine therapy PRN and with HD/DUF treatments follow hemodynamics (5) Chronic anemia: Code(s): D64.9 - Anemia, unspecified Status: Chronic Assessment and Plan: due to ESRD Epogen with HD follow trend of H/H Will continue to follow. Subjective Date/time seen: 05/15/22 12:00 Just completed her session of dry ultrafiltration today (rescheduled for this AM since patient did not want to receive treatment at 10PM yesterday evening) with 2.5L fluid removal; tolerated this intervention reasonably well (post-tx weight was 79.7kg); breathing/respiratory status better but still requiring supplemental oxygen at the time of my visit. Exam Narrative: General: chronically ill appearing AA female in NAD Heart: normal S1 and S2; no rub Lungs: coarse breath sounds Abdomen: soft, nontender, nondistended, positive bowel sounds Extremities: no cyanosis or clubbing; no edema Skin: no rash Objective Data Vital Signs Vital Signs: Vital Signs Temp Pulse Resp BP Pulse Ox O2 Del Method O2 Flow Rate 05/15/22 12:00 97.5 F L 95 16 104/61 96 05/15/22 11:41 83 18 05/15/22 11:26 77 18 05/15/22 11:26 77 18 100 High Flow Nasal Cannula 2 05/15/22 10:00 78 05/15/22 08:00 90 05/15/22 11:25 98 F 75 16 122/57 L 100 05/15/22 11:18 79 99/52 L 05/15/22 11:00 76 106/53 L 05/15/22 10:45 77 110/53 L 05/15/22 10:15 75 117/56 L 05/15/22 10:30 74 105/53 L 05/15/22 09:45 81 100/55 L 05/15/22 09:30 82 108/50 L 05/15/22 09:15 85 103/52 L 05/15/22 09:00 87 104/58 L 05/15/22 10:00 80 101/49 L 05/15/22 08:48 88 119/66 05/15/22 08:37 98 F 93 16 140/70 99 05/15/22 08:37 2 05/15/22 08:00 97.8 F 94 16 140/71 100 05/15/22 07:59 91 20 05/15/22 07:33 89 20 05/15/22 07:33 89 20 97 High Flow Nasal Cannula 1 05/15/22 07:43 100 Nasal Cannula 1 05/15/22 05:55 85 05/15/22 04:00 85 05/15/22 04:00 96 Nasal Cannula 2 05/15/22 03:59 97.8 F 82 22 H 106/60 100 05/15/22 02:00 90 05/15/22 00:00 90 05/14/22 22:00 103 H 05/15/22 00:00 100 Nasal Cannula 2 05/15/22 00:27 89 21 H 96 BiPAP 05/15/22 00:15 91 20 05/15/22 00:05 89 21 H 05/14/22 23:36 97.4 F L 97 22 H 119/62 99 05/14/22 20:00 96 05/14/22 20:00 100 Nasal Cannula 2 05/14/22 22:20
--- NOTE | 2022-05-15 12:27 | PM.IMPN ---
Progress Note: A&P Assessment and Plan (1) Pneumonia: Qualifiers: Laterality: bilateral Lung location: unspecified part of lung Pneumonia type: due to unspecified organism Qualified Code(s): J18.9 - Pneumonia, unspecified organism Code(s): J18.9 - Pneumonia, unspecified organism Status: Acute Assessment and Plan: Questionable diagnosis. Continue DuoNebs Solu-Medrol has been discontinued. Continue oral antibiotics (2) End-stage renal disease on hemodialysis: Onset Date: 09/2009 Code(s): N18.6 - End stage renal disease; Z99.2 - Dependence on renal dialysis Status: Acute Assessment and Plan: Patient has dialysis Monday Nephrology has been consulted the patient did have dialysis today. Continue hemodialysis (3) Obstructive sleep apnea: Code(s): G47.33 - Obstructive sleep apnea (adult) (pediatric) Status: Acute Assessment and Plan: Titrate CPAP/BiPAP to home setting (4) Paroxysmal atrial fibrillation: Code(s): I48.0 - Paroxysmal atrial fibrillation Status: Acute Assessment and Plan: Continue with Eliquis and metoprolol However the patient is on midodrine for hypotension (5) Gastroesophageal reflux disease: Code(s): K21.9 - Gastro-esophageal reflux disease without esophagitis Status: Acute Assessment and Plan: Continue with home medication (6) Hypothyroidism: Code(s): E03.9 - Hypothyroidism, unspecified Status: Acute Assessment and Plan: Check thyroid (7) Chronic anemia: Code(s): D64.9 - Anemia, unspecified Status: Chronic Assessment and Plan: Secondary to end-stage renal disease Continue to monitor At baseline (8) Non-ischemic cardiomyopathy: Code(s): I42.8 - Other cardiomyopathies Status: Acute Assessment and Plan: Continue with home medications (9) Combined systolic and diastolic congestive heart failure: Code(s): I50.40 - Unspecified combined systolic (congestive) and diastolic (congestive) heart failure Status: Acute Assessment and Plan: No previous echoes noted in our system Check echo The patient stated that she cannot have Lasix. Continue with metoprolol (10) Chronic obstructive pulmonary disease: Code(s): J44.9 - Chronic obstructive pulmonary disease, unspecified Status: Acute Assessment and Plan: Continue with Solu-Medrol DuoNebs Continue with Singulair (11) Acute respiratory failure with hypoxia: Code(s): J96.01 - Acute respiratory failure with hypoxia Status: Acute Assessment and Plan: Check echo She is currently being treated for pneumonia She is also getting Solu-Medrol for her COPD. Subjective Date/time seen: 05/15/22 12:27 No new complaints Exam Narrative: Morbidly obese Patient is comfortable, NAD HEENT: eyes are clear and none icteric LUNGS: Normal respiratory effort ABD: Distended Lower extremities: no edema SKIN: nonjaundiced Neuro: grossly intact. Objective Data Vital Signs Vital Signs: Vital Signs - 24 hr 05/14/22 13:08 05/14/22 13:24 05/14/22 15:59 Temperature Pulse Rate 95 96 Respiratory Rate 20 20 Blood Pressure Pulse Oximetry Oxygen Delivery Nasal Cannula Oxygen Flow Rate 2 05/14/22 14:00 05/14/22 16:00 05/14/22 16:00 Temperature Pulse Rate 96 93 Respiratory Rate Blood Pressure Pulse Oximetry 100 Oxygen Delivery Room Air Oxygen Flow Rate 05/14/22 18:00 05/14/22 16:00 05/14/22 20:00 Temperature 97.3 F L 97.6 F Pulse Rate 96 96 98 Respiratory Rate 24 H 20 Blood Pressure 111/65 111/58 L Pulse Oximetry 100 100 Oxygen Delivery Oxygen Flow Rate 05/14/22 21:07 05/14/22 21:12 05/14/22 22:25 Temperature Pulse Rate 98 98 100 Respiratory Rate 20 32 H Blood Pressure Pulse Oximetry 100 97 Oxygen Delivery High Flow Nasal Cannula BiPAP Oxygen
[2022-05-15] MEDS: GABAPENTIN 100 MG CAPSULE 200 MG PO ×2 (12:58→16:54)
[2022-05-15] MEDS: APIXABAN 2.5 MG TABLET PO ×2 (12:58→20:33)
[2022-05-15] MEDS: CALCIUM ACETATE 667 MG TABLET 1334 MG PO ×2 (12:58→16:53)
[2022-05-15] MEDS: VITAMIN B CMPLX/VIT C/FOLIC AC 1 CAPSULE 1 CAP PO (12:58)
[2022-05-15] MEDS: PANTOPRAZOLE 40 MG TABLET PO ×2 (14:35→16:54)
[2022-05-15] MEDS: AMOXICILLIN/CLAVULANATE K 500-125 MG TAB 1 TABLET PO (20:33)
[2022-05-15] MEDS: MONTELUKAST SODIUM 10 MG TABLET PO (20:33)
[2022-05-15] MEDS: ATORVASTATIN 20 MG TABLET PO (20:33)
[2022-05-15] MEDS: ACETAMINOPHEN/CODEINE (*CRX) 300/30 MG TABLET 1 TAB PO (20:44)
[2022-05-16] VITALS (29 sets, daily range): BP systolic 70–119; BP diastolic 30–71; PULSE 75–107; RESP 17–230; TEMP 36.1–36.9; O2SAT 94–100
[2022-05-16] MEDS: ALBUTEROL SULFATE NEB 2.5 MG/3 ML INH INHALATION ×2 (00:31→08:58)
[2022-05-16] MEDS: IPRATROPIUM BR 0.02% INH SOLN 0.5 MG/2.5 ML VIAL INHALATION ×2 (00:31→08:58)
[2022-05-16 04:46] LABS: Hematocrit 27.5 % (37.0-47.0); Hemoglobin 8.7 g/dL (12.0-15.0); Mean Corpuscular HGB Conc 31.6 g/dl (32-36); Mean Corpuscular Hemoglobin 29.4 pg (26-34); Mean Corpuscular Volume 92.9 fl (80-100); Mean Platelet Volume 9.7 fl (7.4-10.4); Platelet Count Result 278 k/mm3 (150-375); Red Blood Count 2.96 M/mm3 (4.2-5.4); Red Cell Distribution Width 13.2 % (11.5-14.5); White Blood Count 9.8 K/mm3 (4.5-10.0)
[2022-05-16 04:57] LABS: Lactic Acid Reflex 1.2 mmol/L (0.7-2.0)
[2022-05-16 05:01] LABS: Albumin Level 4.4 g/dL (3.5-5.1); Anion Gap 11 mmol/L (8-16); Blood Urea Nitrogen 56 mg/dL (7-17); Calcium 9.9 mg/dL (8.4-10.2); Carbon Dioxide 27 mmol/L (22-30); Chloride 101 mmol/L (98-107); Estimated CRCL calculation 5 ml/min; Estimated Glomerular Filt Rate 4; Glucose 110 mg/dL (65-110); Potassium 4.1 mmol/L (3.4-5.0); Sodium 139 mmol/L (137-145)
[2022-05-16] MEDS: BUDESONIDE RESPULE NEB 0.5 MG/2 ML AMP INHALATION (08:58)
[2022-05-16 09:14] LABS: NT Pro B Type Natriuretic Pept 15100 pg/mL (19.9-100)
[2022-05-16] MEDS: CALCIUM ACETATE 667 MG TABLET 1334 MG PO ×3 (09:20→17:59)
[2022-05-16] MEDS: APIXABAN 2.5 MG TABLET PO (09:21)
[2022-05-16] MEDS: GABAPENTIN 100 MG CAPSULE 200 MG PO ×2 (09:21→17:59)
[2022-05-16] MEDS: PANTOPRAZOLE 40 MG TABLET PO ×2 (09:21→17:59)
[2022-05-16] MEDS: DIGOXIN TAB 125 MCG TABLET PO (09:21)
[2022-05-16] MEDS: FLUoxetine HCL 10 MG CAPSULE PO (09:21)
[2022-05-16] MEDS: VITAMIN B CMPLX/VIT C/FOLIC AC 1 CAPSULE 1 CAP PO (09:21)
[2022-05-16] MEDS: SENNA/DOCUSATE SODIUM TABLET 1 TAB PO (09:21)
--- NOTE | 2022-05-16 12:01 | PCRCNOTE ---
HOME O2 EVAL COMPLETE. PATIENT REQUIRES ROOM AIR. RN NOTIFIED.
--- NOTE | 2022-05-16 12:36 | PM.DS ---
DS: Admitting Diagnosis Discharge Date May 16, 2022 Admitting Diagnosis Volume overload, end-stage renal disease. Pneumonia DS: Discharge Diagnosis Discharge Diagnosis (1) Pneumonia: Qualifiers: Laterality: bilateral Lung location: unspecified part of lung Pneumonia type: due to unspecified organism Qualified Code(s): J18.9 - Pneumonia, unspecified organism Code(s): J18.9 - Pneumonia, unspecified organism Status: Acute Assessment and Plan: Questionable diagnosis. Continue DuoNebs Solu-Medrol has been discontinued. Continue oral antibiotics (2) End-stage renal disease on hemodialysis: Onset Date: 09/2009 Code(s): N18.6 - End stage renal disease; Z99.2 - Dependence on renal dialysis Status: Acute Assessment and Plan: Patient has dialysis Monday Nephrology has been consulted the patient did have dialysis today. Continue hemodialysis (3) Obstructive sleep apnea: Code(s): G47.33 - Obstructive sleep apnea (adult) (pediatric) Status: Acute Assessment and Plan: Titrate CPAP/BiPAP to home setting (4) Paroxysmal atrial fibrillation: Code(s): I48.0 - Paroxysmal atrial fibrillation Status: Acute Assessment and Plan: Continue with Eliquis and metoprolol However the patient is on midodrine for hypotension (5) Gastroesophageal reflux disease: Code(s): K21.9 - Gastro-esophageal reflux disease without esophagitis Status: Acute Assessment and Plan: Continue with home medication (6) Hypothyroidism: Code(s): E03.9 - Hypothyroidism, unspecified Status: Acute Assessment and Plan: Check thyroid (7) Chronic anemia: Code(s): D64.9 - Anemia, unspecified Status: Chronic Assessment and Plan: Secondary to end-stage renal disease Continue to monitor At baseline (8) Non-ischemic cardiomyopathy: Code(s): I42.8 - Other cardiomyopathies Status: Acute Assessment and Plan: Continue with home medications (9) Combined systolic and diastolic congestive heart failure: Code(s): I50.40 - Unspecified combined systolic (congestive) and diastolic (congestive) heart failure Status: Acute Assessment and Plan: No previous echoes noted in our system Check echo The patient stated that she cannot have Lasix. Continue with metoprolol (10) Chronic obstructive pulmonary disease: Code(s): J44.9 - Chronic obstructive pulmonary disease, unspecified Status: Acute Assessment and Plan: Continue with Solu-Medrol DuoNerodolfo Continue with Singulair (11) Acute respiratory failure with hypoxia: Code(s): J96.01 - Acute respiratory failure with hypoxia Status: Acute Assessment and Plan: Check echo She is currently being treated for pneumonia She is also getting Solu-Medrol for her COPD. DS: Summary Hospital Course Hospital Course: 66-year-old female came in with some shortness of breath. Chest x-ray show consolidation versus volume overload. She does have history of end-stage renal disease. Patient was given several treatments of hemodialysis and improved significantly. There was a concern for pneumonia on admission so patient was continued on antibiotics and they have been completed. This has been treated. Respiratory status much better. Patient can be discharged. Time Spent with Patient Time attestation: Total time spent providing and/or coordinating discharge services: Exam Narrative: Morbidly obese Patient is comfortable, NAD HEENT: eyes are clear and none icteric LUNGS: Normal respiratory effort ABD: Distended Lower extremities: no edema SKIN: nonjaundiced Neuro: grossly intact. DS: Data Data Completed and Pending Labs on day of discharge: Labs from last 24 hours 05/16/22 05/16/22 05/16/22 04:36 04:36 04:36 WBC RBC Hgb Hct MCV MCH MCHC RDW Plt Count
--- NOTE | 2022-05-16 12:38 | PM.PNPUL ---
Progress Note: A&P Assessment and Plan (1) Acute respiratory failure with hypoxia: Code(s): J96.01 - Acute respiratory failure with hypoxia Status: Acute Assessment and Plan: Patient with a history of end-stage renal disease, nonischemic cardiomyopathy and per cardiology's last note on 08/31/2020 states that this has resolved over the years with medical treatment and ablation for her atrial arrhythmias, Asthma, presents with shortness of breath, hypoxia, wheezing, no leukocytosis, afebrile and sputum that is changed from clear to yellow. BNP 16798 and CXR with diffuse opacities and CM. She has currently improved with 1.5 L removed with emergent hemodialysis this morning, bronchodilators, steroids and antibiotics. Etiology of patient's acute respiratory failure with hypoxia include fluid overload, pneumonia, and or asthma exacerbation. agree with aggressive fluid removal per hemodialysis as tolerated by her cardiac and renal Systems. Nephrology is following. Goal today is 2-3 L out and I spoke with the supply chain technician and her blood pressure is tolerating fluid removal so far and he will attempt to remove 3 L. the patient tells me they have never removed more than 3 L in the past. Covid and influenza RT PCR studies are negative. Blood and sputum cultures are pending. At this time I would continue ceftriaxone and azithromycin both started on 05/09. The patient had wheezing on exam is and was started on Solu-Medrol for COPD exacerbation. Per the patient she has had outpatient breathing studies and her helicopter pilot instructor does not feel she has COPD. The patient does tell me she has asthma. The patient did not feel that her asthma was flaring at this time. Currently she is not wheezing. At this time I will discontinue the Solu-Medrol and place her on albuterol 2.5 mg nebs q.4 hours, ipratropium 0.5 mg nebs Q 6 hours and budesonide 500 mcg nebulized b.i.d.. We will continue her montelukast 10 mg p.o. q.h.s. She felt a BiPAP pressures were uncomfortable and tolerated AVAPS mode?with a set rate of 20, tidal volume 500, EPAP 5, minimal inspiratory pressure 6, maximal inspiratory pressure 25, inspiratory time 1.0, rise of 1 which is the fastest and 50% FiO2. 05/11 patient tells me she was much improved after her ultrafiltration of 3 L off yesterday. She tolerated off of BiPAP for 2-3 hours in the afternoon and wore the hospital noninvasive ventilator with the AVAPS settings as above overnight. Currently the patient is on hemodialysis and on the noninvasive ventilator with the AVAPS mode. She states she is doing much better and states that she feels she is 50% back to her baseline. She has less chest heaviness, is breathing easier and has no wheezing. Goal hemodialysis fluid removal is 3-4 L. Plan: the patient continues to improve from a respiratory viewpoint with fluid removal and discontinuation of systemic steroids. I think asthma exacerbation is less likely. I think pneumonia is less likely but I will continue to treat for now. Continue albuterol 2.5 mg nebs q.4 hours, ipratropium 0.5 mg nebs Q4 hours, budesonide 500 mcg nebulized b.i.d and montelukast 10 mg p.o. q.h.s. Continue ceftriaxone and as a azithromycin day 3. regarding her a VATS settings she said she prefers arise level of 2 today which I have made. Her saturations are 100% and will try p.r.n. noninvasive ventilation throughout the day but she should wear the hospital noninvasive ventilator with the above-mentioned AVAPS settings tonight, I will decrease to 40%. 05/12 Patient tolerated hemodialysis with 3 L off yesterday. She was off BiPAP in the afternoon for 5 hours and wore the hospital noninvasive ventilator with the AVAPS mode overnight. Currently she is wearing the noninvasive ventilator and says that her breathing continues to improve. She says her cough and phlegm are improved. I took her off of the noninvasive ventilator and placed her on 3 L nasa
--- NOTE | 2022-05-16 12:45 | P.CDI_ITS ---
CDI Query Clarified Diagnosis Clarified Diagnosis: Documented history of CHF. CHF noted on the assessment and plan. Elevated BNP on 05/09/22 lab work. Chest Xray from 05/09/22 noted pulmonary edema Please specify type and acuity of heart failure if known. * Acute * Chronic * Acute on Chronic * Unknown * Systolic * Diastolic * Combined Systolic and Diastolic * Unknown
--- NOTE | 2022-05-16 12:45 | WPDCDIQUERY2 ---
CDI Query Clarified Diagnosis Clarified Diagnosis: Documented history of CHF. CHF noted on the assessment and plan. Elevated BNP on 05/09/22 lab work. Chest Xray from 05/09/22 noted pulmonary edema Please specify type and acuity of heart failure if known. Acute Chronic Acute on Chronic Unknown Systolic Diastolic Combined Systolic and Diastolic Unknown
[2022-05-16] MEDS: MIDODRINE HCL 2.5 MG TABLET 5 MG PO ×2 (13:36→15:40)
--- NOTE | 2022-05-16 13:41 | P.PNNP_ITS ---
Progress Note: A&P Assessment and Plan (1) End stage renal disease: Code(s): N18.6 - End stage renal disease Status: Chronic Assessment and Plan: * HD today and continue M/W/F dialysis schedule while hospitalized * follow electrolytes, volume status, and clearance (2) Acute respiratory failure with hypoxia: Code(s): J96.01 - Acute respiratory failure with hypoxia Status: Acute Assessment and Plan: * slow improvement * suspect multifactorial: * pneumonia(?) * component of volume overload/pulmonary edema * reactive airway disease (asthma) * known history of LENORA * chronic heart failure * DUF (dry ultrafiltration) on non-HD days for further fluid removal as tolerated * antibiotics for possible pneumonia * nebulizer treatments but off steroids * supplemental oxygen - wean as tolerated * Pulmonary recommendations noted (3) Pneumonia: Qualifiers: Laterality: bilateral Lung location: unspecified part of lung Pneumonia type: due to unspecified organism Qualified Code(s): J18.9 - Pneumonia, unspecified organism Code(s): J18.9 - Pneumonia, unspecified organism Status: Acute Assessment and Plan: * suggestive by admission imaging * follow culture data * continue with with oral antibiotics (4) Hypotension: Code(s): I95.9 - Hypotension, unspecified Status: Chronic Assessment and Plan: * chronic issues at baseline * on midodrine therapy PRN and with HD/DUF treatments * follow hemodynamics (5) Chronic anemia: Code(s): D64.9 - Anemia, unspecified Status: Chronic Assessment and Plan: * due to ESRD * Epogen with HD * follow trend of H/H Discussed with Dr. Hinojosa. Will continue to follow. Subjective Date/time seen: 05/16/22 13:41 Tolerating dialysis treatment at the time of my visit (seen on HD on 1:30PM); breathing/respiratory status continues to slowly improve each day; no apparent distress voiced; no issues overnight or earlier this morning. Exam Narrative: General: chronically ill appearing AA female in NAD Heart: normal S1 and S2; no rub Lungs: coarse breath sounds Abdomen: soft, nontender, nondistended, positive bowel sounds Extremities: no cyanosis or clubbing; no edema Skin: no nodules Objective Data Vital Signs Vital Signs: Vital Signs Temp Pulse Resp BP Pulse Ox O2 Del Method FiO2 05/16/22 12:00 97 Room Air 05/16/22 12:00 96 05/16/22 12:00 97.3 F L 90 20 101/48 L 100 05/16/22 11:50 101 H 94 Room Air 05/16/22 11:45 107 H 96 Room Air 05/16/22 11:30 90 95 Room Air 05/16/22 08:00 97 Room Air 05/16/22 10:00 94 05/16/22 08:00 87 05/16/22 09:13 100 18 05/16/22 09:02 94 18 97 Room Air 05/16/22 08:58 94 18 05/16/22 08:00 97.1 F L 85 20 97/51 L 96 05/16/22 06:00 77 05/16/22 04:00 97 F L 80 22 H 118/54 L 100 05/16/22 04:00 75 05/16/22 04:00 100 BiPAP 05/16/22 02:00 78 05/16/22 00:33 100 20 05/16/22 00:32 79 230 H 05/16/22 00:00 84 05/16/22 00:00 100 BiPAP 05/16/22 00:00 97.9 F 82 22 H 108/59 L 96
--- NOTE | 2022-05-16 13:41 | PM.PNNEP ---
Progress Note: A&P Assessment and Plan (1) End stage renal disease: Code(s): N18.6 - End stage renal disease Status: Chronic Assessment and Plan: HD today and continue M/W/F dialysis schedule while hospitalized follow electrolytes, volume status, and clearance (2) Acute respiratory failure with hypoxia: Code(s): J96.01 - Acute respiratory failure with hypoxia Status: Acute Assessment and Plan: slow improvement suspect multifactorial: pneumonia(?) component of volume overload/pulmonary edema reactive airway disease (asthma) known history of LENORA chronic heart failure DUF (dry ultrafiltration) on non-HD days for further fluid removal as tolerated antibiotics for possible pneumonia nebulizer treatments but off steroids supplemental oxygen - wean as tolerated Pulmonary recommendations noted (3) Pneumonia: Qualifiers: Laterality: bilateral Lung location: unspecified part of lung Pneumonia type: due to unspecified organism Qualified Code(s): J18.9 - Pneumonia, unspecified organism Code(s): J18.9 - Pneumonia, unspecified organism Status: Acute Assessment and Plan: suggestive by admission imaging follow culture data continue with with oral antibiotics (4) Hypotension: Code(s): I95.9 - Hypotension, unspecified Status: Chronic Assessment and Plan: chronic issues at baseline on midodrine therapy PRN and with HD/DUF treatments follow hemodynamics (5) Chronic anemia: Code(s): D64.9 - Anemia, unspecified Status: Chronic Assessment and Plan: due to ESRD Epogen with HD follow trend of H/H Discussed with Dr. Hinojosa. Will continue to follow. Subjective Date/time seen: 05/16/22 13:41 Tolerating dialysis treatment at the time of my visit (seen on HD on 1:30PM); breathing/respiratory status continues to slowly improve each day; no apparent distress voiced; no issues overnight or earlier this morning. Exam Narrative: General: chronically ill appearing AA female in NAD Heart: normal S1 and S2; no rub Lungs: coarse breath sounds Abdomen: soft, nontender, nondistended, positive bowel sounds Extremities: no cyanosis or clubbing; no edema Skin: no nodules Objective Data Vital Signs Vital Signs: Vital Signs Temp Pulse Resp BP Pulse Ox O2 Del Method FiO2 05/16/22 12:00 97 Room Air 05/16/22 12:00 96 05/16/22 12:00 97.3 F L 90 20 101/48 L 100 05/16/22 11:50 101 H 94 Room Air 05/16/22 11:45 107 H 96 Room Air 05/16/22 11:30 90 95 Room Air 05/16/22 08:00 97 Room Air 05/16/22 10:00 94 05/16/22 08:00 87 05/16/22 09:13 100 18 05/16/22 09:02 94 18 97 Room Air 05/16/22 08:58 94 18 05/16/22 08:00 97.1 F L 85 20 97/51 L 96 05/16/22 06:00 77 05/16/22 04:00 97 F L 80 22 H 118/54 L 100 05/16/22 04:00 75 05/16/22 04:00 100 BiPAP 05/16/22 02:00 78 05/16/22 00:33 100 20 05/16/22 00:32 79 230 H 05/16/22 00:00 84 05/16/22 00:00 100 BiPAP 05/16/22 00:00 97.9 F 82 22 H 108/59 L 96 05/15/22 23:10 85 20 100 05/15/22 22:00 89 05/15/22 20:00 89 05/15/22 21:12 100 29 H 05/15/22 20:00 100 Room Air 05/15/22 20:00 97.3 F L 90 20 96/52 L 95 05/15/22 18:00 90 05/15/22 16:00 95 Room Air 05/15/22 16:00 97.4 F L 90 20 92/51 L 98 05/15/22 16:00 84 05/15/22 16:10 84 20 05/15/22 15:52 89 20 05/15/22 15:52 96 Room Air 21 05/15/22 14:00 89 Intake/Output Intake/Output: Intake & Output 05/13/22 05/14/22 05/15/22 05/16/22 23:59 23:59 23:59 23:59 Intake Total 418 139 6407 240 Output Total 1517 272 2390 0 Balance -80 680 -1400 240 Meds/Results Medications: Active Medications Generic Name Dose
--- NOTE | 2022-05-16 14:08 | PCRCNOTE ---
Window of time for administration has passed. See next scheduled administration.
[2022-05-16] MEDS: EPOETIN ALFA-EPBX 10,000 UNITS/ML VIAL 10000 UNITS IV PUSH (15:11)
--- NOTE | 2022-05-16 17:22 | PCRCNOTE ---
Window of time for administration has passed. See next scheduled administration.
== END 2022-05-16 19:00 | disposition home or self-care (01) | DRG 193 ==
LOC: ANHED 14:16 → ANHIMU 15:55
PROVIDERS: Emergency Medicine; Internal Medicine; Internal Medicine Nephrology; Internal Medicine Pulmonary Disease; Nurse Practitioner; Admitting Provider Family Medicine; Emergency Provider Physician Assistant; Visit Provider Chiropractor
DX: J18.9 Pneumonia, unspecified organism (principal); J96.01 Acute respiratory failure with hypoxia; N18.6 End stage renal disease; I42.8 Other cardiomyopathies; J44.0 Chronic obstructive pulmonary disease with (acute) lower respiratory infection; I50.42 Chronic combined systolic (congestive) and diastolic (congestive) heart failure; G47.33 Obstructive sleep apnea (adult) (pediatric); I48.0 Paroxysmal atrial fibrillation; K21.9 Gastro-esophageal reflux disease without esophagitis; E03.9 Hypothyroidism, unspecified; D63.1 Anemia in chronic kidney disease; E66.01 Morbid (severe) obesity due to excess calories; I95.9 Hypotension, unspecified; F41.9 Anxiety disorder, unspecified; E78.5 Hyperlipidemia, unspecified; E11.42 Type 2 diabetes mellitus with diabetic polyneuropathy; E11.21 Type 2 diabetes mellitus with diabetic nephropathy; K57.90 Diverticulosis of intestine, part unspecified, without perforation or abscess without bleeding; Z99.2 Dependence on renal dialysis; Z68.34 Body mass index [BMI] 34.0-34.9, adult; Z79.01 Long term (current) use of anticoagulants; Z87.11 Personal history of peptic ulcer disease; Z87.442 Personal history of urinary calculi; Z86.718 Personal history of other venous thrombosis and embolism; Z90.49 Acquired absence of other specified parts of digestive tract; Z90.710 Acquired absence of both cervix and uterus; Z98.84 Bariatric surgery status
CPT/HCPCS: 36415; 36600; 71045; 71046; 71250; 80048; 80053; 80069; 80074; 82375; 82805; 83050; 83605; 83735; 83880; 84443; 84484; 85025; 85027; 86706; 87040; 87070; 87205; 87340; 87636; 87637; 93005; 93306; 94002; 94003; 94618; 94640; 94660; 94667; 94668; 97162; 97165; 99285; A9270; G0257; J0131; J0456; J0696; J1644; J2930; J7030; P9047; Q5105

== ENCOUNTER 2022-11-04 09:05 | Outpatient (CLI) | payer MEDICARE, SELFPAY ==
--- NOTE | ~2022-11-04 | XR_ITS ---
XR chest 2V 11/04/2022 09:48 Indication: Shortness of breath. CHF. Patient on dialysis. Procedure: 2 view chest Comparison: 05/15/2022 Findings: Moderate cardiomegaly. No focal air space disease, pulmonary edema, pleural effusion or jose antonio pected pneumothorax. 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 Mild p ulmonary vascular congestion. No pleural effusion or pneumothorax. Impression: 1: Cardiomegaly with mild pulmonary vascular congestion. Reviewed, dictated and finalized at location B. Impression: 1: Cardiomegaly with mild pulmonary vascular congestion.
== END 2022-11-04 09:06 | disposition home or self-care (01) ==
PROVIDERS: Visit Provider Internal Medicine Nephrology
DX: R06.02 Shortness of breath (principal); I50.9 Heart failure, unspecified; I51.7 Cardiomegaly
CPT/HCPCS: 71046

== ENCOUNTER 2022-12-16 08:36 | Observation (INO) | payer MEDICARE, SELFPAY ==
[2022-12-16] VITALS (18 sets, daily range): BP systolic 95–117; BP diastolic 38–67; PULSE 80–95; RESP 16–25; TEMP 36.1–36.8; O2SAT 95–98; BMI 36.6
--- NOTE | ~2022-12-16 | XR_ITS ---
EXAMINATION: XR chest 2V DATE: 12/16/2022 09:28 INDICATION: Chest pain. TECHNIQUE: Frontal and lateral views of the chest were obtained. COMPARISON: Chest 2 views 11/04/2022, chest CT 05/12/2022, chest single view 05/15/22 FINDINGS: There is eventration of anterior right hemidiaphragm. There is a chronic diffuse interstiti al pattern in the lungs. No pleural effusion or pneumothorax. Cardiomegaly is noted. IMPRESSION: 1. Stable chronic interstitial lung disease. 2. Cardiomegaly. Reviewed, dictated and finalized at location E.
--- NOTE | 2022-12-16 08:47 | ECG_ITS ---
Measurements Intervals [place] Rate: 82 P: 69 AL: 189 QRS: -56 QRSD: 132 T: 88 QT: 402 QTc: 471 Interpretive Statements SINUS RHYTHM WITH OCCASIONAL SUPRAVENTRICULAR PREMATURE COMPLEXES INCOMPLETE LEFT BUNDLE BRANCH BLOCK ABNORMAL ECG COMPARED TO ECG 05/09/2022 20:07:11 NO SIGNIFICANT DIFFERENCE t Electronically Signed On 12-16-2022 15:05:45 CDT by Thuan Garcia M.D.
[2022-12-16 09:30] LABS: Basophils Percent Auto 0.5 % (0.2-1.2); Eosinophils Absolute Auto 0.2 K/mm3 (0-0.3); Eosinophils Percent Auto 2.9 % (0-4.4); Hematocrit 31.2 % (37.0-47.0); Hemoglobin 9.7 g/dL (12.0-15.0); Immature Granulocyte Absolute 0.06 K/mm3 (0.00-0.031); Lymphocytes Absolute Auto 1.88 K/mm3 (0.9-3.2); Lymphocytes Percent Auto 29.8 % (18.3-44.2); Mean Corpuscular HGB Conc 31.1 g/dl (32-36); Mean Corpuscular Hemoglobin 30.3 pg (26-34); Mean Corpuscular Volume 97.5 fl (80-100); Mean Platelet Volume 9.9 fl (7.4-10.4); Monocytes Absolute Auto 0.5 K/mm3 (0.1-0.6); Monocytes Percent Auto 7.8 % (2.6-8.5); Neutrophils Absolute Auto 3.7 K/mm3 (1.3-6.7); Platelet Count Result 194 k/mm3 (150-375); Red Cell Distribution Width 15.1 % (11.5-14.5); White Blood Count 6.3 K/mm3 (4.5-10.0)
[2022-12-16 09:40] LABS: Prothrombin Time 13.3 Seconds (11.1-14.7)
[2022-12-16 09:41] LABS: Alanine Aminotransferase 26 U/L (6-35); Albumin Level 4.5 g/dL (3.5-5.1); Alkaline Phosphatase 60 U/L (38-126); Anion Gap 13 mmol/L (8-16); Aspartate Amino Transferase 31 U/L (14-36); Bilirubin,Total 0.7 mg/dL (0.2-1.3); Blood Urea Nitrogen 23 mg/dL (7-17); Calcium 9.1 mg/dL (8.4-10.2); Carbon Dioxide 27 mmol/L (22-30); Chloride 96 mmol/L (98-107); Estimated CRCL calculation 10 ml/min; Estimated Glomerular Filt Rate 10; Glucose 110 mg/dL (65-110); Lipase 170 U/L (23-300); Partial Thromboplastin Time 35.6 SECONDS (22.3-36.8); Potassium 3.5 mmol/L (3.4-5.0); Sodium 136 mmol/L (137-145)
[2022-12-16 09:50] LABS: Troponin I < 0.012 ng/mL (0.000-0.034)
--- NOTE | 2022-12-16 10:04 | ED.CHESTPAIN ---
HPI - Chest Pain General Chief Complaint: Chest Pain Stated Complaint: Chest pain Time Seen by Provider: 12/16/22 08:53 History of Present Illness HPI narrative: This is a 67-year-old female, with history of renal failure on dialysis with most recent dialysis performed today, who presents emergency department complaining of chest tightness since last night. The patient describes the tightness as 8/10 and radiating to the left arm. It was worsened during dialysis this morning, is relieved with lying flat and associated with shortness of breath. She also notes she was seen by her licensed practical nurse clinic nurse and continuity manager, both of whom recommended more aggressive dialysis. Related Data Home Medications Medication Instructions Recorded Confirmed apixaban 2.5 mg tablet 2.5 mg PO BID 03/24/20 12/16/22 calcium acetate(phosphat bind) 667 1,334 mg PO BIDWM 06/16/20 12/16/22 mg capsule fluticasone propionate 220 1 puff inhalation BID PRN 06/16/20 12/16/22 mcg/actuation HFA aerosol inhaler Shortness Of Breath Or Wheezing (Flovent HFA) lanthanum 1,000 mg chewable tablet 1,000 mg PO BIDWM 06/16/20 12/16/22 montelukast 10 mg tablet 10 mg PO HS 06/16/20 12/16/22 omeprazole 20 mg capsule,delayed 20 mg PO BID 06/16/20 12/16/22 release vitamin B complex-vitamin C-folic 1 tablet PO DAILY 06/16/20 12/16/22 acid 0.8 mg tablet (Dialyvite 800) digoxin 125 mcg (0.125 mg) tablet 125 mcg PO 2XW 05/09/22 12/16/22 gabapentin 100 mg tablet 100 mg PO BID 05/09/22 12/16/22 levalbuterol tartrate 45 2 inh inhalation TID PRN Shortness 05/09/22 12/16/22 mcg/actuation aerosol inhaler Of Breath (Xopenex HFA) cholecalciferol (vitamin D3) 25 75 mcg PO DAILY 09/29/22 12/16/22 mcg (1,000 unit) capsule midodrine 10 mg tablet 5 mg PO .prn PRN low bp 12/05/22 12/16/22 atorvastatin 40 mg tablet 40 mg PO HS 12/16/22 12/16/22 biotin 1,000 mcg chewable tablet 1,000 mcg PO DAILY 12/16/22 12/16/22 Allergies Allergy/AdvReac Type Severity Reaction Status Date / Time lisinopril Allergy Unknown Unknown Verified 12/16/22 08:46 propoxyphene Allergy Unknown Unknown Verified 12/16/22 08:46 valsartan Allergy Unknown lost voice Verified 12/16/22 08:46 Review of Systems Review of Systems: CONSTITUTIONAL: Denies fever, chills, or sweats. CARDIOVASCULAR: Chest tightness, lower extremity edema denies chest pain, palpitations RESPIRATORY: Nonproductive cough, some dyspnea on exertion GASTROINTESTINAL: Denies abdominal pain, nausea, vomiting, or diarrhea. GENITOURINARY: Denies dysuria or hematuria. SKIN: Denies rash or itching. MUSCULOSKELETAL: Chronic low back pain, left knee pain denies back pain, joint pain, or myalgia. NEUROLOGIC: Denies headache, numbness, dizziness, or weakness. PSYCHIATRIC: Denies anxiety or depression. [facility] Past Medical History Medical History Anxiety Asthma Chronic anemia History of blood transfusions. Chronic anticoagulation Chronic obstructive pulmonary disease On low-dose prednisone. Combined systolic and diastolic congestive heart failure Echo 10/2012: severe LV enlargement, moderate LV dysfunction with wall motion abnormality at the inferior basal segment, EF 44%, grade 2 diastolic dysfunction. Deep venous thrombosis (02/2013) Diverticulosis End-stage renal disease on hemodialysis (09/2009) Gastroesophageal reflux disease Gout Hyperlipidemia Hypotension On midodrine. Hypothyroidism Kidney stones Non-ischemic cardiomyopathy Negative cardiac catheterization showing no obstructive coronary disease in 2003 at [place]. EF at that time was 20% but has improved to 54% in 02/2015. Obstructive sleep apnea Paroxysmal atrial fibrillation Peptic ulcer (07/2003) Renal osteodystrophy Type II diabetes mellitus Complicated by peripheral neuropathy and nephropathy. Surgical History Surgical History History of angioplasty Histor
[2022-12-16 12:13] LABS: Troponin I < 0.012 ng/mL (0.000-0.034)
--- NOTE | 2022-12-16 13:35 | ADMGEN ---
This patient, Donya Tobin, was admitted to IMU Room 201-01. Patient/family oriented to hospital policies and general routines including ID bracelet, bed and alarms, visiting hours, pain management, procedures, bathroom and other care routines, personal items, smoking policy, room service/diet, and visiting hours. Information on how to activate the Rapid Response Team has been discussed. Patient/Family are encouraged to report perceived risks to care and to ask questions if they do not understand what they are told or what they should do.
--- NOTE | 2022-12-16 14:54 | PM.IMHP ---
H&P: HPI History of Present Illness Date/Time: 12/16/22 15:40 Chief Complaint: Chest pain. Narrative: This is a very pleasant 67-year-old female with multiple medical problems including end-stage renal disease on hemodialysis, nonischemic cardiomyopathy with improved ejection fraction, paroxysmal atrial fibrillation on chronic anticoagulation, obstructive sleep apnea, type 2 diabetes mellitus no longer on medication after weight loss, hypothyroidism, and several other comorbidities who presented to the emergency department via EMS from dialysis for evaluation of chest pain. The patient provides the following history. She endorses intermittent heaviness in the mid chest region ?for a while? however today it dialysis the heaviness was much more intense and lasted longer prompting her to come in for evaluation. She does have some associated shortness of breath however she attributes that to extra fluid as she was unable to complete her dialysis session today. Patient denies radiation of the discomfort however ED physician documented that she reports some radiation to the left arm. Today she has had some sweats which is unusual for her. She denies syncope, near syncope, nausea, pleuritic pain, and palpitations. No abdominal or epigastric discomfort. She has not sustained any recent injuries or done any heavy lifting. Blood pressures were soft on arrival and have remained so however that is not unusual for her on dialysis days for which she takes midodrine. EKG showed incomplete left bundle branch block though this is apparently not a new finding. Her troponins have thus far been negative. Given her complicated medical history she is being admitted overnight to rule out acute coronary syndrome and for Cardiology consultation. Review of Systems Review of Systems: Twelve systems were reviewed and are negative except for as per HPI. [facility] Past Medical History Medical History Anxiety Asthma Chronic anemia History of blood transfusions. Chronic anticoagulation Chronic obstructive pulmonary disease On low-dose prednisone. Combined systolic and diastolic congestive heart failure Echo 10/2012: severe LV enlargement, moderate LV dysfunction with wall motion abnormality at the inferior basal segment, EF 44%, grade 2 diastolic dysfunction. Deep venous thrombosis (02/2013) Diverticulosis End-stage renal disease on hemodialysis (09/2009) Gastroesophageal reflux disease Gout Hyperlipidemia Hypotension On midodrine. Hypothyroidism Kidney stones Non-ischemic cardiomyopathy Negative cardiac catheterization showing no obstructive coronary disease in 2003 at [place]. EF at that time was 20% but has improved to 54% in 02/2015. Obstructive sleep apnea Paroxysmal atrial fibrillation Peptic ulcer (07/2003) Renal osteodystrophy Type II diabetes mellitus Complicated by peripheral neuropathy and nephropathy. Surgical History Surgical History History of angioplasty History of cardiac catheterization (08/20/13) Normal coronary arteries per Dr. Oliveros at [place]. History of cardiac radiofrequency ablation (1993) For SVT. History of section History of cholecystectomy (2014) History of colonoscopy with polypectomy History of cystoscopy (03/2012) History of hysterectomy (1993) History of mandibular surgery (1987) For TMJ. History of myomectomy History of parathyroidectomy History of sleeve gastrectomy (2013) Status post creation of arteriovenous fistula Left forearm. Family History Family History Mother Hypertension Family history of congestive heart failure Family history of congenital heart disease Family history of arthritis Family history of kidney disease Family history of chronic obstructive pulmonary disease Father Carcinoma of colon Sibling Family
[2022-12-16] MEDS: ACETAMINOPHEN 325 MG TABLET 650 MG PO ×2 (15:37→23:40)
[2022-12-16 15:38] LABS: Troponin I < 0.012 ng/mL (0.000-0.034)
[2022-12-16 16:06] LABS: Digoxin 0.8 ng/mL (0.8-2.0)
--- NOTE | 2022-12-16 16:19 | PM.CNCAR ---
Assessment and Plan Assessment and plan (1) Chest pain: Qualifiers: Chest pain type: unspecified Qualified Code(s): R07.9 - Chest pain, unspecified Code(s): R07.9 - Chest pain, unspecified Status: Acute Plan this is a 67-year-old lady who has a nonischemic cardiomyopathy as well as end-stage renal disease on chronic hemodialysis treatment. She has some chest pain for which she was sent over here from her dialysis center. There is no evidence of acute coronary syndrome. As stated above this lady has had 2 previous coronary angiograms 1 as recently as 6 months ago which did not show any evidence of coronary disease. It seems obvious therefore that her chest pain is not related to coronary artery disease and further workup of this issue is not required given the recency of her angiography. Thuan Garcia MD [facility] History of Present Illness History of Present Illness Consult date/time: 12/16/22 16:19 Reason For Visit: Chest pain Narrative: this is a very pleasant 67-year-old lady with end-stage renal disease on chronic hemodialysis web seeing at the request of the hospitalist because of chest pain. The patient was been having episodes of chest pain off and on she scribed describes as a central pressure-like sensation. It became more prominent today while she was undergoing hemodialysis and she was brought to the hospital for evaluation. Following admission to the hospital her chest pain is mild but persistent and she has had 3- troponin levels performed her electrocardiogram shows sinus rhythm with an incomplete left bundle branch block which is unchanged from previous electrocardiograms that are in her records here. The patient reports has a history of a nonischemic cardiomyopathy and follows with analytics consultant at [facility] in [place]. When her original diagnosis was made many years ago she underwent a coronary angiogram that was negative. I believe she was placed on standard medical therapy for this originally in her ejection fraction did improve. She is no longer taking any heart failure medication she does use midodrine as needed for low blood pressure presumably her heart failure medication was stopped because of episodic hypotension. In any event I am seeing her in the consultation for this reason the in this setting. She did share with me that her established analytics consultant performed another coronary angiogram on her at [facility] as recently as May of this year. This was done because of an abnormal stress test. Once again her coronary angiograms were normal. Review of Systems Constitutional: Constitutional: Reports no additional constitutional complaints Eyes: Eyes: Reports no additional eye complaints ENT: Reports system reviewed and no additional complaints, except as documented Cardiovascular: Cardiovascular: Reports as per HPI and Reports chest pain Respiratory: Respiratory: Reports no additional respiratory complaints Gastrointestinal: Gastrointestinal: Reports no additional gastrointestinal complaints Musculoskeletal: Musculoskeletal: Reports no additional musculoskeletal complaints Integumentary/Breasts: Skin/Breast: Reports system reviewed and no additional complaints, except as docu Neurologic: Reports system reviewed and no additional complaints, except as documented Endocrine: Endocrine: Reports no additional endocrine complaints Hematologic/Lymphatic: Hematologic/Lymphatic: Reports no additional hematologic/lymphatic complaints Allergic/Immunologic: Allergic/Immunologic: Reports no additional allergic/immunologic complaints [facility] Past Medical History Medical History Anxiety Asthma Chronic anemia History of blood transfusions. Chronic anticoagulation Chronic obstructive pulmonary disease On low-dose prednisone. Combined systolic and diastolic congestive heart failure Echo 10/2012: sev
--- NOTE | 2022-12-16 16:30 | PCRCNOTE ---
This RT spoke to pt. Pt stated that her family/friend might bring in her home CPAP unit. It depended on how long she stays at hospital. RT asked if pt wanted to borrow one of the hospital's unit. Pt stated No, she doesn't use her home CPAP all the time. RN aware.
[2022-12-16] MEDS: MORPHINE SULFATE (*CRX) 2 MG/ML INJ 1 MG IV PUSH (20:17)
[2022-12-16] MEDS: ATORVASTATIN 40 MG TABLET PO (21:50)
[2022-12-16] MEDS: PANTOPRAZOLE 40 MG TABLET PO (21:50)
[2022-12-16] MEDS: MONTELUKAST SODIUM 10 MG TABLET PO (21:50)
[2022-12-16] MEDS: GABAPENTIN 100 MG CAPSULE PO (21:51)
[2022-12-16] MEDS: APIXABAN 2.5 MG TABLET PO (21:51)
[2022-12-17] VITALS (26 sets, daily range): BP systolic 91–133; BP diastolic 33–61; PULSE 71–93; RESP 14–20; TEMP 0–37.1; O2SAT 95–99
[2022-12-17 04:46] LABS: Basophils Percent Auto 0.4 % (0.2-1.2); Eosinophils Absolute Auto 0.2 K/mm3 (0-0.3); Eosinophils Percent Auto 2.8 % (0-4.4); Hematocrit 28.9 % (37.0-47.0); Immature Granulocyte Absolute 0.09 K/mm3 (0.00-0.031); Immature Granulocyte Percent A 1.3 % (0-0.5); Mean Corpuscular HGB Conc 31.1 g/dl (32-36); Mean Corpuscular Hemoglobin 30.4 pg (26-34); Mean Corpuscular Volume 97.6 fl (80-100); Mean Platelet Volume 9.8 fl (7.4-10.4); Monocytes Absolute Auto 0.7 K/mm3 (0.1-0.6); Monocytes Percent Auto 10.2 % (2.6-8.5); Neutrophils Absolute Auto 3.5 K/mm3 (1.3-6.7); Neutrophils Percent Auto 52.3 % (45.5-73.1); Platelet Count Result 185 k/mm3 (150-375); Red Blood Count 2.96 M/mm3 (4.2-5.4); White Blood Count 6.7 K/mm3 (4.5-10.0)
[2022-12-17 04:52] LABS: Anion Gap 12 mmol/L (8-16); Blood Urea Nitrogen 33 mg/dL (7-17); Calcium 8.8 mg/dL (8.4-10.2); Carbon Dioxide 27 mmol/L (22-30); Chloride 99 mmol/L (98-107); Estimated CRCL calculation 6 ml/min; Estimated Glomerular Filt Rate 6; Glucose 111 mg/dL (65-110); Potassium 3.9 mmol/L (3.4-5.0); Sodium 138 mmol/L (137-145)
[2022-12-17] MEDS: ASPIRIN 81 MG CHEWABLE TABLET PO (09:05)
[2022-12-17] MEDS: CHOLECALCIFEROL 1,000 UNITS TABLET 3000 UNITS PO (09:05)
[2022-12-17] MEDS: ACETAMINOPHEN 325 MG TABLET 650 MG PO (09:07)
[2022-12-17] MEDS: APIXABAN 2.5 MG TABLET PO ×2 (09:08→20:24)
[2022-12-17] MEDS: CALCIUM ACETATE 667 MG TABLET 1334 MG PO ×2 (09:09→17:00)
[2022-12-17] MEDS: PANTOPRAZOLE 40 MG TABLET PO ×2 (09:09→20:24)
[2022-12-17] MEDS: GABAPENTIN 100 MG CAPSULE PO ×2 (09:09→17:00)
[2022-12-17 09:41] LABS: Hepatitis B Surface Anti Res Positive
[2022-12-17] MEDS: MIDODRINE HCL 2.5 MG TABLET 5 MG PO (11:39)
[2022-12-17] MEDS: ALBUMIN HUMAN 25% 12.5 GM/50ML 150 ML 50 GM (12:19)
[2022-12-17] MEDS: HEPARIN SODIUM 1,000 UNITS/ML VIAL 7000 UNITS (12:24)
--- NOTE | 2022-12-17 13:00 | PM.CNNEP ---
Assessment and Plan Assessment and plan (1) End stage renal disease: Code(s): N18.6 - End stage renal disease Status: Chronic Assessment and Plan: HD yesterday plan dry ultrafiltration today for more fluid removal follow electrolytes, volume status, and clearance (2) Chest pain: Qualifiers: Chest pain type: unspecified Qualified Code(s): R07.9 - Chest pain, unspecified Code(s): R07.9 - Chest pain, unspecified Status: Acute Assessment and Plan: suspect more related to cramping than ACS EKG noted and troponins normal Cardiology recommendations noted -- no further testing/intervention noted (3) Shortness of breath: Code(s): R06.02 - Shortness of breath Status: Acute Assessment and Plan: symptomatic from this (but not hypoxic) she feels it is related to fluid overload however, she is known to have reactive airway disease and LENORA as well admission CXR with interstitial lung disease findings plan DUF treatment today for more fluid removal follow respiratory status (4) Hypotension: Code(s): I95.9 - Hypotension, unspecified Status: Chronic Assessment and Plan: chronic issues at baseline on midodrine therapy (5) Chronic anemia: Code(s): D64.9 - Anemia, unspecified Status: Chronic Assessment and Plan: due to ESRD Epogen with HD follow trend of H/H Would not be opposed to discharge if otherwise medically stable -- her next dialysis treatment would be on Monday either here in the hospital or at her outpatient dialysis unit. I will continue follow patient with you while she remains hospitalized and make further recommendations as needed. Thank you for allowing me to participate in care this patient. History of Present Illness Reason for Consult Consult date: 12/17/22 Reason for consult: end stage renal disease Chief Complaint Chief complaint: Chest pain History of Present Illness Narrative: The patient is a 67-year-old female with multiple medical problems as outlined below who presented to the [facility] ER earlier today for evaluation of shortness of breath and chest pain. The patient reports that she has been having on and off issues with chest heaviness for undisclosed period of time and this symptom apparently became acutely worse and more intense during her dialysis treatment yesterday. With discontinuation of her dialysis treatment, the patient had hoped that the symptom would resolve but it continued to persist which prompted her to come to the ER for further assessment. She reports some shortness of breath associated with the chest heaviness but she thinks the shortness of breath is more related to fluid retention and volume overload more than any type of cardiac issue. She reports that both her tube former operator and youth career specialist have been advocating for increased fluid removal/ultrafiltration with her dialysis treatments due to objective evidence of fluid retention by blood work and imaging studies. Workup and evaluation emergency room demonstrated the patient to be relatively hypotensive but this is a chronic issue for her And is on chronic midodrine therapy. Her EKG did not show any new findings and her troponins both in the ER as well as subsequent testing have been negative to date. Given her ongoing shortness of breath and her somewhat complex medical history, she was admitted to the hospital for further evaluation and therapy as well as Cardiology consultation. Since her admission, she has been seen by Cardiology who has reviewed her records including her recent cardiac catheterization and does not and they do not feel that any further intervention is required from a cardiac perspective. CC still relates some shortness of breath that she endorses is due to fluid overload/fluid retention Renal consultation was requested due to her end-stage renal disease. The patien
--- NOTE | 2022-12-17 16:29 | PM.IMPN ---
Progress Note: A&P Assessment and Plan (1) Chest pain: Qualifiers: Chest pain type: unspecified Qualified Code(s): R07.9 - Chest pain, unspecified Code(s): R07.9 - Chest pain, unspecified Status: Acute Assessment and Plan: Patient reports midsternal chest heaviness. EKG showing no acute changes. Troponin negative x 3. CXR showing stable chronic ILD. Patient had recent LHC that was clear by report. Cardiology consulted and appreciate their input. No plans for cardiac workup. (2) End-stage renal disease on hemodialysis: Onset Date: 09/2009 Code(s): N18.6 - End stage renal disease; Z99.2 - Dependence on renal dialysis Status: Acute Assessment and Plan: Patient did not complete a full dialysis session on Monday (day of admission) but able to remove 2L. She is having HD again today. Nephrology consulted and appreciate their input. Further HD per their recommendations Patient insists on regular diet. (3) Hypotension: Code(s): I95.9 - Hypotension, unspecified Status: Chronic Assessment and Plan: Patient with chronic HoTN on midodrine. Patient's blood pressure was reviewed on 12/17 Blood pressure remains well controlled. Will continue to monitor (4) Combined systolic and diastolic congestive heart failure: Code(s): I50.40 - Unspecified combined systolic (congestive) and diastolic (congestive) heart failure Status: Acute Assessment and Plan: Clinically appears euvolemic. EF has improved over the years. Continue medical management with digoxin (level therapeutic). Not on betablocker/ACEI due to HoTN. (5) Chronic anemia: Code(s): D64.9 - Anemia, unspecified Status: Chronic Assessment and Plan: Hgb 9.7 on admission and slightly down to 9. HH stable. 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 She is compliant. Follow. Plan DVT prophylaxis -Eliquis Code status -full code Subjective Date/time seen: 12/17/22 16:29 Interval history: 67yo female with ESRD, nonischemic cardiomyopathy with improved EF, pAFib on chronic anticoagulation, LENORA and DM no longer on medication after weight loss who presented to the emergency department via EMS from dialysis for evaluation of chest pain. Chest pain was described as 'tight' and pressure. Tolerated HD (except the last 24 minutes) and they removed 2L on the day of admission. Chest pain lasts hours. Pleuritic but not palpable or positional. No radiatin to the pain. She had an abnormal stress test in May and underwent LHC a short time later and it was clear. She is compliant with her Eliquis. Exam Narrative: AF 97.5 117/61 76 18 99% ra Gen - NARD Chest - distant BS, nml RR CV - RRR S1/S2. Tele showing no acute dysrhythmias Abd - Soft, NT/ND, Positive BS Ext - No pedal edema. Left forearm being accessed in dialysis unit Neuro - Alert and oriented. Nonfocal exam. Psych - Nml mood and affect Skin - Warm and dry Objective Data Vital Signs Vital Signs: Vital Signs - 24 hr 12/16/22 16:30 12/16/22 18:00 12/16/22 20:00 Temperature 97.2 F L Pulse Rate 95 87 Respiratory Rate 18 Blood Pressure 95/38 L Pulse Oximetry 97 98 Oxygen Delivery Room Air Fraction of Inspired Oxygen 21 12/16/22 20:00 12/16/22 20:00 12/16/22 22:00 Temperature Pulse Rate 83 85 Respiratory Rate Blood Pressure Pulse Oximetry Oxygen Delivery Room Air Fraction of Inspired Oxygen 12/16/22 23:36 12/17/22 00:00 12/17/22 00:00 Temperature 96.9 F L Pulse Rate 88 88 Respiratory Rate 16 Blood Pressure 117/57 L Pulse Oximetry 95 Oxygen Delivery Room Air Fraction of Inspired Oxygen 12/17/22 02:00 12/17/22 03:54 12/17/22 04:00 Temperature 96.9 F L Pulse Rate 84 80 Respirator
[2022-12-17] MEDS: ATORVASTATIN 40 MG TABLET PO (20:24)
[2022-12-17] MEDS: MONTELUKAST SODIUM 10 MG TABLET PO (20:24)
[2022-12-18] VITALS (8 sets, daily range): BP systolic 96–116; BP diastolic 49–71; PULSE 78–92; RESP 16; TEMP 36.2–36.9; O2SAT 96–100
[2022-12-18] MEDS: CHOLECALCIFEROL 1,000 UNITS TABLET 3000 UNITS PO (09:35)
[2022-12-18] MEDS: ASPIRIN 81 MG CHEWABLE TABLET PO (09:36)
[2022-12-18] MEDS: APIXABAN 2.5 MG TABLET PO (09:36)
[2022-12-18] MEDS: GABAPENTIN 100 MG CAPSULE PO (09:36)
[2022-12-18] MEDS: CALCIUM ACETATE 667 MG TABLET 1334 MG PO (09:36)
[2022-12-18] MEDS: PANTOPRAZOLE 40 MG TABLET PO (09:36)
--- NOTE | 2022-12-18 11:01 | P.PNNP_ITS ---
Progress Note: A&P Assessment and Plan (1) End stage renal disease: Code(s): N18.6 - End stage renal disease Status: Chronic Assessment and Plan: * HD tomorrow * dry ultrafiltration yesterday for more fluid removal * follow electrolytes, volume status, and clearance (2) Chest pain: Qualifiers: Chest pain type: unspecified Qualified Code(s): R07.9 - Chest pain, unspecified Code(s): R07.9 - Chest pain, unspecified Status: Acute Assessment and Plan: * suspect more related to cramping than ACS * EKG noted and troponins normal * Cardiology recommendations noted -- no further testing/intervention noted (3) Shortness of breath: Code(s): R06.02 - Shortness of breath Status: Acute Assessment and Plan: * somewhat symptomatic from this (but not hypoxic) * she feels it is related to fluid overload based outpatient evaluation and discussion with her outpatient project management specialist * admission CXR with interstitial lung disease findings (no PVC) * CXR on 11/04 with pulmonary vascular congestion * hence, it would seem more aggressive outpatient therapy with regard to fluid removal has improved things * she is known to have reactive airway disease and LENORA as well -- this partly to blame for SOB symptoms(?) * s/p DUF treatment yesterday for more fluid removal * will try to discuss with outpatient dialysis unit other options to push for more fluid removal * follow respiratory status (4) Hypotension: Code(s): I95.9 - Hypotension, unspecified Status: Chronic Assessment and Plan: * chronic issues at baseline * on midodrine therapy (5) Chronic anemia: Code(s): D64.9 - Anemia, unspecified Status: Chronic Assessment and Plan: * due to ESRD * Epogen with HD * follow trend of H/H Will continue to follow. Subjective Date/time seen: 12/18/22 11:01 Interval history: Follow-up for end stage renal disease on hemodialysis. Tolerated DUF session yesterday with about 2.8L fluid removal; she states she still has some mild shortness of breath with exertional activites and some mild LE edema; good oxygen saturations on room air; no apparent distress noted at the time of my visit. Exam Narrative: General: WD/WN AA female in NAD Heart: normal S1 and S2; no rub Lungs: clear anteriorly; few crackles at the bases Abdomen: soft, nontender, nondistended, positive bowel sounds Extremities: no cyanosis or clubbing; trace edema Skin: warm and dry Objective Data Vital Signs Vital Signs: Vital Signs Temp Pulse Resp BP Pulse Ox O2 Del Method 12/18/22 11:00 98.2 F 92 16 116/71 97 12/18/22 08:00 Room Air 12/18/22 08:00 98.4 F 84 16 96/49 L 96 12/18/22 06:00 78 12/18/22 04:00 81 12/18/22 02:00 87 12/18/22 00:00 87 12/17/22 22:00 90 12/17/22 20:00 87 12/18/22 04:00 97.2 F L 84 16 102/66 100 12/18/22 04:00 Room Air 12/18/22 00:00 Room Air 12/17/22 20:00 Room Air 12/17/22 22:31 97.3 F L 90 14 91/35 L 96 12/17/22 16:00 Room Air 12/17/22 18:00 93 12/17/22 16:00 81 12/17/22 19:41 98.7 F 88 16 95/43 L 95 12/17/22 16:00 98.1 F 84 20 118/37 L 96
--- NOTE | 2022-12-18 11:01 | PM.PNNEP ---
Progress Note: A&P Assessment and Plan (1) End stage renal disease: Code(s): N18.6 - End stage renal disease Status: Chronic Assessment and Plan: HD tomorrow dry ultrafiltration yesterday for more fluid removal follow electrolytes, volume status, and clearance (2) Chest pain: Qualifiers: Chest pain type: unspecified Qualified Code(s): R07.9 - Chest pain, unspecified Code(s): R07.9 - Chest pain, unspecified Status: Acute Assessment and Plan: suspect more related to cramping than ACS EKG noted and troponins normal Cardiology recommendations noted -- no further testing/intervention noted (3) Shortness of breath: Code(s): R06.02 - Shortness of breath Status: Acute Assessment and Plan: somewhat symptomatic from this (but not hypoxic) she feels it is related to fluid overload based outpatient evaluation and discussion with her outpatient application support analyst admission CXR with interstitial lung disease findings (no PVC) CXR on 11/04 with pulmonary vascular congestion hence, it would seem more aggressive outpatient therapy with regard to fluid removal has improved things she is known to have reactive airway disease and LENORA as well -- this partly to blame for SOB symptoms(?) s/p DUF treatment yesterday for more fluid removal will try to discuss with outpatient dialysis unit other options to push for more fluid removal follow respiratory status (4) Hypotension: Code(s): I95.9 - Hypotension, unspecified Status: Chronic Assessment and Plan: chronic issues at baseline on midodrine therapy (5) Chronic anemia: Code(s): D64.9 - Anemia, unspecified Status: Chronic Assessment and Plan: due to ESRD Epogen with HD follow trend of H/H Will continue to follow. Subjective Date/time seen: 12/18/22 11:01 Interval history: Follow-up for end stage renal disease on hemodialysis. Tolerated DUF session yesterday with about 2.8L fluid removal; she states she still has some mild shortness of breath with exertional activites and some mild LE edema; good oxygen saturations on room air; no apparent distress noted at the time of my visit. Exam Narrative: General: WD/WN AA female in NAD Heart: normal S1 and S2; no rub Lungs: clear anteriorly; few crackles at the bases Abdomen: soft, nontender, nondistended, positive bowel sounds Extremities: no cyanosis or clubbing; trace edema Skin: warm and dry Objective Data Vital Signs Vital Signs: Vital Signs Temp Pulse Resp BP Pulse Ox O2 Del Method 12/18/22 11:00 98.2 F 92 16 116/71 97 12/18/22 08:00 Room Air 12/18/22 08:00 98.4 F 84 16 96/49 L 96 12/18/22 06:00 78 12/18/22 04:00 81 12/18/22 02:00 87 12/18/22 00:00 87 12/17/22 22:00 90 12/17/22 20:00 87 12/18/22 04:00 97.2 F L 84 16 102/66 100 12/18/22 04:00 Room Air 12/18/22 00:00 Room Air 12/17/22 20:00 Room Air 12/17/22 22:31 97.3 F L 90 14 91/35 L 96 12/17/22 16:00 Room Air 12/17/22 18:00 93 12/17/22 16:00 81 12/17/22 19:41 98.7 F 88 16 95/43 L 95 12/17/22 16:00 98.1 F 84 20 118/37 L 96 12/17/22 15:44 97.5 F L 76 18 117/61 12/17/22 15:15 75 110/54 L 12/17/22 15:00 76 106/50 L Intake/Output Intake/Output: Intake & Output 12/15/22 12/16/22 12/17/22 12/18/22 23:59 23:59 23:59 23:59 Intake Total 790 1340 4620 Output Total 2800 Balance 790 -1460 4620 Meds/Results Medications: Active Medications Generic Name Dose Route Start Last Admin Trade Name Freq PRN Reason Stop Dose Admin Acetaminophen 650 mg 12/16/22 14:49 12/17/22 09:07 Acetaminophen 325 Mg Tablet PO 650 mg Q6H PRN Administration Mild Pain (1-3) or Fever Apixaban 2.5 mg 12/16/22 21:00 12/18/22 09:36 Apixaban 2.5 Mg Tablet PO 2.5 mg Q12HR
--- NOTE | 2022-12-18 13:22 | PCSTNOTE ---
Bedside swallowing evaluation completed. Cursory oral peripheral examination results within functional limits. Patient seen bedside, sitting at side of bed independently. Per patient self report she is not having swallowing problems. She is on fluid restriction due to kidney disease and she manages this rigorously. She does not have much appetite, and has not for approximately one year. She reports that she has a history of esophageal stricture and dilation. She states that she sometimes experiences reflux and takes omeprazole to manage. Trials of thin liquid by straw were given at bedside and patient's swallowing functional ability was observed to be within normal limits. No soft signs of aspiration observed. Patient refused other food consistencies because she had already eaten lunch (only ate dessert) and had no appetite. She expressed that she doesn't think she has any swallow difficulty other than poor appetite and this may be related to esophageal issues, in her opinion, based on her PMH. Recommendations: continue regular diet with thin liquids. No speech therapy is recommended at this time. Please note that silent aspiration cannot be ruled out at bedside and can be evaluated with a modified barium swallow study. Thank you for the referral of this patient.
--- NOTE | 2022-12-18 14:03 | PM.DS ---
DS: Admitting Diagnosis Discharge Date 12/18/22 Admitting Diagnosis Chest pain DS: Discharge Diagnosis Discharge Diagnosis (1) Chest pain: Qualifiers: Chest pain type: unspecified Qualified Code(s): R07.9 - Chest pain, unspecified Code(s): R07.9 - Chest pain, unspecified Status: Acute (2) End-stage renal disease on hemodialysis: Onset Date: 09/2009 Code(s): N18.6 - End stage renal disease; Z99.2 - Dependence on renal dialysis Status: Acute (3) Hypotension: Code(s): I95.9 - Hypotension, unspecified Status: Chronic (4) Combined systolic and diastolic congestive heart failure: Code(s): I50.40 - Unspecified combined systolic (congestive) and diastolic (congestive) heart failure Status: Acute (5) Chronic anemia: Code(s): D64.9 - Anemia, unspecified Status: Chronic (6) Chronic anticoagulation: Code(s): Z79.01 - director long term care (current) use of anticoagulants Status: Acute DS: Summary Hospital Course Reason for hospitalization: 67yo female with ESRD, nonischemic cardiomyopathy with improved EF, pAFib on chronic anticoagulation, LENORA and DM no longer on medication after weight loss who presented to the emergency department via EMS from dialysis for evaluation of chest pain. Please see H&P for details. Hospital Course: Patient reports midsternal chest heaviness. EKG showing no acute changes. Troponin negative x 3. CXR showing stable chronic ILD. Patient had recent LHC that was clear by report. Cardiology consulted and appreciate their input. No cardiology recommendations for any further testing. Patient did not complete a full dialysis session on Monday (day of admission) but able to remove 2L. She had HD the following day with 2.8L removed. Nephrology consulted and appreciate their input. Patient insisted on regular diet. Patient with chronic HoTN on midodrine. Patient's blood pressure was monitored closely and remained well controlled.?She has combined systolic and diastolic congestive heart failure and clinically appeared euvolemic. EF has improved over the years. We continued medical management with digoxin (level therapeutic). Not on beta andrei/ACEI due to HoTN. She has chronic anemia with Hgb 9.7 on admission and stable. We continued her Eliquis for pAFib. Given the findings on CXR, we did a bedside swallow evaluation. Patient does have reflux and was recommended to elevate the head of the bed 30 degrees. Speech did not feel patient had any issues with swallowing liquids (patient refused other consistencies). Apnea link showing AHI 4.9 and RI 8.1 on room air. She spent 16 minutes with SpO2<88%. She was informed of the CXR findings and explained taht this could be contributing to her GARCIA and that she needs to see her Automatic Teller Machine Servicer. She voices understanding. She overall did well and was able to be discharged on 12/18/22. Status at Discharge Cognitive/behavioral status at discharge: stable Time Spent with Patient Time attestation: Total time spent providing and/or coordinating discharge services: 35 minutes Time spent: Greater than 30 minutes Exam Narrative: AF 98.2 116/71 92 16 97% ra Gen - NARD Chest - bibasilar crackles o/w clear. nml RR CV - RRR S1/S2. Tele showing occasional PVCs Abd - Soft, NT/ND, Positive BS Ext - No pedal edema. Left forearm thrill/bruit Psych - Nml mood and affect Skin - Warm and dry Discharge Plan Discharge Attending physician on discharge: Salu العلي Consulting providers: Ramon Amaro; Nickie Squires Discharging Clinician: Saul العلي Anticipated Discharge Date/Time: 12/18/22 14:14 Patient Disposition: Home, Self-Care Activity: as tolerated Diet: regular Discharge Instructions: Take precautions to avoid falls. Rise slowly from a lying or sitting position. Pause before standing or walking. Elevate the head of the bed Do not lie down
== END 2022-12-18 15:35 | disposition home or self-care (01) ==
LOC: ANHED 11:36 → ANHIMU 15:59
PROVIDERS: Internal Medicine Nephrology; Physician Assistant; Admitting Provider Internal Medicine; Emergency Provider Preventive Medicine Aerospace Medicine; Visit Provider Internal Medicine
DX: R07.9 Chest pain, unspecified (principal); M79.602 Pain in left arm; R06.02 Shortness of breath; I13.2 Hypertensive heart and chronic kidney disease with heart failure and with stage 5 chronic kidney disease, or end stage renal disease; E11.22 Type 2 diabetes mellitus with diabetic chronic kidney disease; N18.6 End stage renal disease; I50.40 Unspecified combined systolic (congestive) and diastolic (congestive) heart failure; I95.9 Hypotension, unspecified; J45.909 Unspecified asthma, uncomplicated; D64.9 Anemia, unspecified; E78.5 Hyperlipidemia, unspecified; F41.9 Anxiety disorder, unspecified; M10.9 Gout, unspecified; K21.9 Gastro-esophageal reflux disease without esophagitis; J84.9 Interstitial pulmonary disease, unspecified; I48.20 Chronic atrial fibrillation, unspecified; G47.33 Obstructive sleep apnea (adult) (pediatric); R60.0 Localized edema; Z99.2 Dependence on renal dialysis; Z86.718 Personal history of other venous thrombosis and embolism; Z79.01 Long term (current) use of anticoagulants; Z79.51 Long term (current) use of inhaled steroids; Z79.899 Other long term (current) drug therapy; Z82.49 Family history of ischemic heart disease and other diseases of the circulatory system; Z84.1 Family history of disorders of kidney and ureter; Z83.3 Family history of diabetes mellitus; Z83.438 Family history of other disorder of lipoprotein metabolism and other lipidemia
CPT/HCPCS: 36415; 71046; 80048; 80053; 80162; 83690; 84484; 85025; 85610; 85730; 86706; 92610; 93005; 96374; 99285; A9270; G0257; G0378; J1644; J2270; J7030; P9047

== ENCOUNTER 2023-02-22 09:11 | Outpatient (CLI) | payer MEDICARE, SELFPAY ==
--- NOTE | ~2023-02-22 | MM_ITS ---
EXAMINATION: MM screening [facility] BI w abdulaziz HISTORY: Screening mammogram TECHNIQUE: Craniocaudal and mediolateral oblique 3-D tomosynthesis images were obtained and synthetic 2-D images were generated. CAD analysis was submitted and interpreted. COMPARISON: 10/13/2021, 11/28/2018, 01/24/2017 BREAST PARENCHYMAL COMPOSITION: There are scattered areas of fibroglandular density. FINDINGS: Scattered benign-appearing calcifications are present. No suspicious mass, calcification, o r architectural distortion are identified in either breast to suggest malignancy. There has been no s uspicious interval change. IMPRESSION: 1. No mammographic evidence of malignancy. 2. Recommend routine screening mammography in one year. BI-RADS Category 2: Benign finding(s). Reviewed, dictated and finalized at location A. ORATIVE COORDINATOR
== END 2023-02-22 09:12 | disposition home or self-care (01) ==
LOC: ANHIMG 09:13
PROVIDERS: Visit Provider Internal Medicine Nephrology
DX: Z12.31 Encounter for screening mammogram for malignant neoplasm of breast (principal)
CPT/HCPCS: 77063; 77067

== ENCOUNTER 2023-08-21 09:41 | Outpatient (CLI) | payer MEDICARE, SELFPAY ==
--- NOTE | ~2023-08-21 | XR_ITS ---
XR chest 2V Ordering provider: Jc Moreau MD History: 68 years Female with . evaluate for fluid, CHF . Comparison: December 16, 2022 FINDINGS: MEDIASTINUM: The cardiac silhouette is slightly enlarged. LUNGS: No infiltrates, effusions or pneumothorax. Prominent bronchovascular markings in the left lung base. OTHER: No free air under the diaphragm. Degenerative the spine. Postoperative changes in the cervical spine. IMPRESSION: No acute cardiopulmonary pathology. Reviewed, dictated and finalized at location A.
== END 2023-08-21 09:42 | disposition home or self-care (01) ==
PROVIDERS: Visit Provider Internal Medicine Nephrology
DX: R05.9 Cough, unspecified (principal); I50.9 Heart failure, unspecified
CPT/HCPCS: 71046

== ENCOUNTER 2024-03-25 08:51 | Inpatient (IN) | payer MEDICARE, SELFPAY ==
[2024-03-25] VITALS (15 sets, daily range): BP systolic 130–139; BP diastolic 71–83; PULSE 80–104; RESP 16–26; TEMP 36.4–36.6; O2SAT 93–100; BMI 29.0
--- NOTE | ~2024-03-25 | XR_ITS ---
Portable chest x-ray Comparison: 03/29/2024 Clinical History: Fluid overload Findings: Stable right-sided central venous line. Lungs are clear, without focal consolidation or pl eural effusion. Cardiomediastinal silhouette is stable. Bones and soft tissues are unremarkable. Impression: Clear lungs. Stable cardiomegaly with left atrial closure device. Stable support line. Reviewed, dictated and finalized at location . LASTER Impression: Clear lungs. Stable cardiomegaly with left atrial closure device. Stable support line.
--- NOTE | ~2024-03-25 | XR_ITS ---
EXAMINATION: XR chest 1V portable DATE: 03/25/2024 10:17 INDICATION: Shortness of breath and cough TECHNIQUE: frontal view of the chest was obtained. COMPARISON: Chest radiograph dated 08/21/2023 FINDINGS: Large bore dual-lumen likely tunneled right internal jugular central venous catheter with distal tip in the right atrium. Again seen is eventration along the right hemidiaphragm. There is focal airspace opacity the lateral left lower lung zone which could be related to a left paracardial fat pad but wh ich appears more prominent than the prior radiographs region possibly of new atelectasis or pneumonia . Mild streaky right basilar atelectasis. No pulmonary edema, pleural effusion or pneumothorax. Cardi omegaly. Again seen is anterior plate-screw fixation for mid to lower cervical anterior spinal fusion . Interval instrumented cervical posterior spinal fusion with new bilateral vertical geovanny and lateral mass screws in the visualized lower cervical spine. IMPRESSION: 1. New airspace opacity lateral left lower lung zone which could be due to atelectasis, pneumonia, pa racardial fat pad or some combination thereof. 2. Cardiomegaly. Reviewed, dictated and finalized at location B. URCE DEVELOPMENT MANAGER IMPRESSION: 1. New airspace opacity lateral left lower lung zone which could be due to atel ectasis, pneumonia, paracardial fat pad or some combination thereof. 2. Cardiomegaly.
--- NOTE | ~2024-03-25 | XR_ITS ---
EXAMINATION: XR chest 1V portable DATE: 03/29/2024 13:52 INDICATION: Shortness of breath. TECHNIQUE: A single frontal view of the chest was obtained. COMPARISON: Chest single view 03/25/2024, chest CT 03/25/2024 FINDINGS: There are coarse interstitial opacities involving all lung zones bilaterally. There is mild atelectasis in left mid and lower lung zones. No pleural effusion or pneumothorax. Cardiomegaly is n oted. There are changes of anterior and posterior fusion procedures in cervical spine. A right internal revenue agent al jugular central venous catheter is seen with tip in right atrium. There is a closure device in lef t atrial appendage. IMPRESSION: 1. Stable diffuse lung disease, consistent with chronic interstitial lung disease and mild atelectasi s. 2. Cardiomegaly. Reviewed, dictated and finalized at location A. RBUILDER IMPRESSION: 1. Stable diffuse lung disease, consistent with chronic interstitial lung disea se and mild atelectasis. 2. Cardiomegaly.
--- NOTE | ~2024-03-25 | XR_ITS ---
EXAM: XR thoracic spine 3V DATE: 03/25/2024 13:51 HISTORY: pain . COMPARISON: CT chest, same date; x-ray chest 08/21/2023. FINDINGS: Partially visualized anterior and posterior cervical fusion hardware. Right IJ dialysis ca theter terminating in the right atrium. Atrial occlusion device. Vertebral body alignment intact. Mil d scoliosis and exaggerated kyphosis. Mild chronic wedge deformity at multiple levels in the mid thor acic spine.. Multilevel moderate disc narrowing and marginal osteophytosis. No traumatic malalignment or fracture. Visualized lung parenchyma is clear. IMPRESSION: No acute fracture or traumatic malalignment detected in the thoracic spine. Reviewed, dictated and finalized at location K. RAT TRAPPER IMPRESSION: No acute fracture or traumatic malalignment detected in the thoraci c spine.
--- NOTE | ~2024-03-25 | CT_ITS ---
EXAMINATION: CT diagnostic chest wo con DATE: 03/25/2024 10:52 INDICATION: cough, dyspnea TECHNIQUE: Computed tomography (CT) of the chest was performed without intravenous contrast. Addition al 3D reconstructions utilizing coronal maximum intensity projection (MIP) were performed. Automated exposure control and iterative reconstruction technique were employed. The dose-length product was 20 7.26 mGy-cm. COMPARISON: 05/12/2022 FINDINGS: The previously seen groundglass opacities in the lungs have resolved. There are persistent patchy reg ions of coarse interstitial pattern and tree-in-bud opacities scattered throughout both lungs. There are numerous associated tiny calcifications which could be related to sequela of old granulomatous di sease or potentially dystrophic calcification related to renal osteodystrophy. No pulmonary edema, pl eural effusion or pneumothorax. Cardiomegaly. Atherosclerotic coronary artery calcifications. Left at rial appendage occlusion device. Tunneled right internal jugular central venous catheter with distal tip in the right atrium. No pericardial effusion. Thoracic aorta is normal in caliber. Postoperative change of prior sleeve gastrectomy with suture line along the greater curvature of the stomach. There is a small sliding-type hernia with portion of the suture line extending above level of the diaphrag m. No pathologically enlarged thoracic lymphadenopathy. Severe thoracic spondylosis. Cholecystectomy clips the gallbladder fossa. There are couple low-attenuation hepatic cysts measuring up to 1.3 cm. T here are cysts measuring up to 2 cm at the upper poles of both kidneys. Calcification is at the upper pole the right kidney could be either atherosclerotic or nephrolithiasis. Partially visualized combi francisco instrumented anterior and posterior spinal fusion at the visualized lower cervical spine. IMPRESSION: 1. Scattered chronic interstitial lung disease in both lungs which include multiple tiny calcified no dules consistent with either sequela of old granulomatous disease or potentially dystrophic calcifica tion related to renal osteodystrophy. 2. Cardiomegaly. 3. Small sliding-type hiatal hernia. 4. Nephrolithiasis versus atherosclerotic calcifications at the visualized portion of the upper pole the right kidney. Reviewed, dictated and finalized at location B. ENT AFFAIRS VICE PRESIDENT IMPRESSION: 1. Scattered chronic interstitial lung disease in both lungs which include mult iple tiny calcified nodules consistent with either sequela of old granulomatous disease or potentially dystrophic calcification related to renal osteodystroph y. 2. Cardiomegaly. 3. Small sliding-type hiatal hernia. 4. Nephrolithiasis versus atherosclerotic calcifications at the visualized port ion of the upper pole the right kidney.
--- NOTE | 2024-03-25 08:57 | ECG_ITS ---
Test Date: 2024-03-25 09:01:37 Measurements Intervals Amelia Rate: 89 P: 0 NV: 0 QRS: -57 QRSD: 129 T: 97 QT: 414 QTc: 504 Interpretive Statements SINUS RHYTHM ATRIAL COUPLETS AND ATRIAL PREMATURE COMPLEXES LEFT ANTERIOR FASCICULAR BLOCK CANNOT R/O SEPTAL INFARCT, AGE INDETERMINATE BORDERLINE ST-T WAVE ABNORMALITY- HIGH LATERAL LEADS BASELINE ARTIFACT- I, II, AVR, AVL, AVF ABNORMAL ECG No previous ECG available for comparison Electronically Signed On 03-25-2024 09:39:22 RADIOLOGICAL TECHNOLOGIST by Heath Grande D.O.
--- NOTE | 2024-03-25 09:06 | PC.NURSE ---
Contacted vascular access for assistance with difficult draw.
--- OUTSIDE RECORDS SUMMARY | 2024-03-25 09:07 | XMS_ITS | Encounter Summary ---
Author Organization [facility] Address [address] [place] [address] Care Team Providers Care Stone Polisher Machine Name Role Phone Eden Godoy Donavan Unavailable Unavailable Carrol Pitts MD, Federico Howe Primary Care Provider Farrukh Solorzano MD Unavailable -[phone] Keya Reina MD Unavailable Unavailable Juan ManuelOsmar browne MD Unavailable Francisco Tobin MD Unavailable Jc Moreau MD Unavailable [phone] Ryland Alves MD Unavailable Lorene Ly MD Unavailable [facility] Unavailable Carrol Pitts MD, Joseph Theodore Unavailable Celi Carter LCSW Unavailable Carrol Pitts MD, Joseph Theodore Unavailable Ryland Alves MD Unavailable [phone] Piotr Alvarez MD Unavailable Carrol Pitts MD, Federico Howe Unavailable Julee Kang MD Unavailable [phone] Carrol Pitts MD, Joseph Theodore Unavailable Bahman Ann MD Unavailable Oralia Boone RN Unavailable Francesco Hong MD Unavailable Zoey Boyle FACTORY MAINTENANCE MANAGER-CROZE CUTTER Unavailable [phone] Bahman Ann MD Unavailable Mendy Camacho Unavailable Liss Gooden MD Primary Care Provider [phone] Alycia Holguin RN Unavailable Kylah Solares Unavailable Carrol Pitts MD, Federico Howe Unavailable Carrol Pitts MD, Joseph Theodore Unavailable Carrol Pitts MD, Federico Howe Primary Care Provider Octavia Parry FACTORY MAINTENANCE MANAGER-CROZE CUTTER Unavailable Encounter Details Date Type Department Care Team (Late st Contact Info) Description 05/19/2020 [facility] Outpatient Visit [facility] [address] [place] [address] Millie Carnes APRN-CNP [address] [place] [address] Social History Tobacco Use Types Packs/Day Years Used Date Smoking Tobacco: Never Smokeless Tobacco: Never Alcohol Use Standard Drinks/Week Comments No 0 (1 standard drink = 0.6 oz pur e alcohol) Sex and Gender Information Value Date Recorded Sex Assigned at Female 02/14/2020 1:06 PM CORRECTIONAL OFFICER CAPTAIN Gender Identity Female 02/14/2020 1:05 PM CORRECTIONAL OFFICER CAPTAIN Sexual Orientation Straight 02/14/2020 1: 05 PM CORRECTIONAL OFFICER CAPTAIN documented as of this encounter Functional Status Functional Status Response Date of Assess ment Is person deaf or have serious hearing difficult y? No 05/09/2020 Is person blind or have serious difficulty seein g? No 05/09/2020 Does person have serious dif ficulty walking/climbing stairs? No 05/09/2020 Does person have difficulty dressing/bathing? No 05/09/2020 Does person have difficulty doing errands alone? No 05/09/2020 Cognitive Status Response Date of Assessm ent Does person have difficulty concentrating/remembering/making decisions? No 05/09/2020 documented as of this encounter Plan of Treatment Upcoming Encounters Date Type Department Care Team (Late st Contact Info) Description 03/29/2024 2:00 PM CORRECTIONAL OFFICER CAPTAIN Office Visit [address] [phone] Federico Branham Jr., MD [address] [place] [address] 04/11/2024 10:20 AM CORRECTIONAL OFFICER CAPTAIN Office Visit [address] [phone] Federico Branham Jr., MD [address] [place] [address] 04/18/2024 1:00 PM CORRECTIONAL OFFICER CAPTAIN Office Visit [facility] [address] [place] [address] [address] [place] [address] Federico Branham Jr., MD [address] [place] [address] Bahman Ann MD [address] [place] [phone] 05/27/2024 10:00 AM CDT Office Visit [facility] - Neurology [address] [place] [phone] Celi Bob PA-C [address] [place] [address] [address] [place] [phone] 05/28/2024 11:15 AM CDT Office Visit [facility] - Ophthalmology [address] [place] [address], [place] [phone] Jaylon Marks MD [address] [place] [address] DEPT [place] [phone] 07/16/2024 2:15 PM CDT Office Visit [facility] - Orthopedics [address] [place] [phone] Ryland Fuentes MD [address] [place] [address] 07/30/2024 10:20 AM CDT Office Visit [facility] - Family Medicine [id number] [place] [address] [address] [place], [place] [phone] [place] [address] [address] [place] [phone] 08/06/2024 10:20 AM CDT Office Visit [facility] - Podiatry [address] [facility] [address] [place] [address] Devika Rolon DPM [address] [place] [address] [address] [place], [place] [phone] 01/10/2025 10:00 AM CORRECTIONAL OFFICER CAPTAIN Office Visit [facility] - GI [address] [place] [phone] Thais Euceda PA-C [address] [facility] DEPT OF [place] [phone] documented as of this encounter Goals Goal Patient Goal Type Associated Problems Recent Progress Patient-Stated? 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 02/25/2019 06/08/2020 8:55 AM CDT COVID-19 Under Investigation 06/05/2020 06/06/2020 06/06/2020 8:54 AM CDT COVID-19 Under Investigation 06/07/2020 06/07/2020 06/08/2020 2:21 AM CDT VRE Hx 06/08/2020 06/08/2020 COVID-19 Under Investigation 06/19/2020 06/19/2020 06/20/2020 12:21 AM CDT COVID-19 Under Investigation 02/09/2023 02/09/2023 02/09/2023 2:41 PM CORRECTIONAL OFFICER CAPTAIN COVID-19 Under Investigation 10/14/2023 10/14/2023 10/14/2023 11:24 AM CDT COVID-19 Under Investigation 03/16/2024 03/16/2024 03/16/2024 2:43 PM CORRECTIONAL OFFICER CAPTAIN COVID-19 Under Investigation 03/16/2024 03/16/2024 03/16/2024 3:58 PM CORRECTIONAL OFFICER CAPTAIN Influenza A or B 03/16/2024 03/16/2024 03/23/2024 4:33 AM CORRECTIONAL OFFICER CAPTAIN documented as of this encounter Care Teams Stone Polisher Machine Relationship Specialty Start Date End Date Federico Branham Jr., MD PCP - General Family Medicine 08/01/18 09/24/23 Federico Branham Jr., MD [address] [place] [address] PCP - Attributed-MSSP 02/21/20 10/20/21 Federico Branham Jr., MD [address] [place] [address] PCP - Strive ACO 09/27/21 01/09/22 [place] [address] [place] [address] [phone] PCP - Attributed-MSSP 10/21/21 2 Piotr Alvarez MD [address] [place] [phone] PCP - Strive ACO 01/10/22 03/28/22 Federico Branham Jr., MD [address] [place] [address] PCP - Attributed-MSSP 01/20/22 05/21/23 Julee Kang MD [address] [address] PCP - Strive ACO 03/29/22 05/20/22 Federico Branham Jr., MD [address] [place] [address] PCP - Strive ACO 05/21/22 08/19/22 Bahman Ann MD [address] [facility] [address] [place] [phone] PCP - Strive ACO 08/20/22 12/20/22 Francesco Hong MD [address] [facility] [place] [phone] PCP - Strive ACO 12/21/22 08/20/23 Zoey Boyle, FACTORY MAINTENANCE MANAGER-CROZE CUTTER [address] [place] [address] PCP - Attributed-MSSP 05/22/23 08/20/23 Bahman Ann MD [address] [facility] [address] [place] [phone] PCP - Strive ACO 08/21/23 10/21/23 [place] [address] [phone] PCP - General Family Medicine 09/25/23 12/14/23 Federico Branham Jr., MD [address] [place] [address] PCP - Strive ACO 10/22/23 Federico Branham Jr., MD [address] [place] [address] PCP - Attributed-MSSP 08/21/23 11/20/23 Federico Branham Jr., MD [address] [place] [address] PCP - General Family Medicine 12/15/23 Octavia Parry, FACTORY MAINTENANCE MANAGER-CROZE CUTTER [address] [place] [address] PCP - Attributed-MSSP 11/21/23 Eden Godoy Dialysis Liaison 07/01/16 04/10/23 Farrukh Solorzano MD [address] [place] [address] [phone] (Work) Cardiovascular Disease 08/01/18 Keya Reina MD [address] [facility] [address] [place] [address] Gastroenterology 08/01/18 Osmar Zambrano MD [address] [place] [address] Otolaryngology 08/01/18 Francisco Tobin MD [address] [facility] [address] [place] [phone] Pulmonary Disease 08/01/18 Jc Moreau MD [address] [facility] [address] [place] [address] Nephrology 08/01/18 [place] [address] [place] [address] Party Director Cardiac Electrophysiology 09/03/18 [place] [address] [place] [address] Cardiology 04/25/19 Care, [facility] Health Kidney Reservations ManagerDoughmaker 08/29/19 Celi Carter, [facility] Behavioral Health Therapist Care Management 05/13/20 05/19/20 Oralia Boone, JAMESON Reservations ManagerDoughmaker 12/27/22 12/27/22 Mendy Camacho [address] [facility] [address] [place] [phone] Care Coordination Specialist Care Management 09/21/23 09/21/23 Alycia Holguin, RN [address] [facility] [address] Reservations ManagerDoughmaker 10/20/23 10/20/23 Kylah Solares Care Coordination Specialist Care Management 10/25/23 12/01/23 documented as of this encounter
--- OUTSIDE RECORDS SUMMARY | 2024-03-25 09:07 | XMS_ITS | Continuity of Care Document ---
Author Organization [facility] Address [address] [place] [address] Phone Care Team Providers Care Solution Analyst Name Role Phone Oneil FARRELL, Calvin Unavailable Unavailabl e Allergies, Adverse Reactions, Alerts Substance Reaction Status Criticality lisinopril loss of voice Active No Information PROPOXYPHENE HCL Confusional state Active No Inf ormation Medications Medication Instructions Dosage Effective Dates (start - stop) Status Comments albuterol sulfate HFA 90 mcg/actuation aerosol inhaler inhale 2 puff by inhalation route every 4 - 6 hours as needed as needed 180 MCG - Active Eliquis 5 mg tablet take 1 tablet by ora l route 2 times every day 5 MG - Active QNASL 40 mcg/actuation nasal aerosol spray - Active calcium acetate 667 mg tablet - Active Dialyvite 100 mg-1 mg tablet - Active digoxin 250 mcg (0.25 mg) tablet take 1 tablet by oral route every day 250 MCG - Active fluoxetine 40 mg capsule take 1 capsule by oral route every day in the morning 40 MG - Active Fosrenol 1,000 mg chewable tablet chew 1 tablet by oral route 2 times every day with meals 1000 MG - Active Lipitor 40 mg tablet take 1 tablet by or al route every day 40 MG - Active midodrine 10 mg tablet take 1 tablet by oral route 3 times every day 10 MG - Active omeprazole 20 mg tablet,delayed release - Active Singulair 4 mg chewable tablet - Active tizanidine 4 mg tablet take 1 tablet by oral route every 6 - 8 hours as needed not to exceed 3 doses in 24 hours 4 MG - Active Procedures Procedure Date Intro cath dialysis circuit Place catheter in artery Artery x-rays arm/leg CONTRAST, 300/ML, PER ML INTRO CATH DIALYSIS CIRCUIT Radiation Exposure Documented To Be Coded Intro cath dialysis circuit Place catheter in artery Artery x-rays arm/leg Advance Directives Directive Yes / No Effective Date File Name No Information Encounters Encounter Description Practice Location Reason(s) For Visit Diagnoses Date Provider Providers Copied on Encounter [facility], [address] [place] [address], [id number], tel:[phone] [facility] No Information Riggs Calvin. [address] [place] [address], [id number], [place]. tel:[phone] [facility], [address] [place] [address], [id number], tel:[phone] [facility] End stage renal disease Riggs Calvin. [address] [place] [address], [id number], . tel:[phone] Referring Provider: Jc Barr, [address] [place] [address], [id number]. tel:[phone] [facility], [address] [place] [address], [id number], tel:[phone] [facility] End stage renal disease Riggs Calvin. [address] [place] [address], [id number], . tel:[phone] Referring Provider: Jc Barr, [address] [place] [address], [id number]. tel:[phone] As per patient privacy policy some of the clinical information may not be visible. Family History Family Member Type Diagnosis Age At Onset No Information Payers Payer name Insurance type Covered republican ID Authoriza tion(s) Medicare [place] [id number] [place] Blue Card Ppo BL [id number] Social History Type Description Quantity Date Captured Comments Sex Female Smoking Status No Information Gender Identity Female Chief Complaint And Reason For Visit No Information Reason For Referral Reason For Referral No Information Plan Of Treatment Date Type Action Status Future Order: Radiology Order Up per Body Flouroscopy ([id number]), Ordered on: Ordered History Of Present Illness Encounter Date Complaint History Of Prese nt Illness No Information Functional Status Date Functional Assessmen t No Information Instructions Date Instruction Additional Infor mation No Information Assessments Type Assessment Date No Information Patient Care Teams Name Effective Dates (start - stop) Status Members No Information
--- OUTSIDE RECORDS SUMMARY | 2024-03-25 09:07 | XMS_ITS | Encounter Summary ---
Author Organization [facility] Address [address] [facility] [place] [address] Care Team Providers Care Carbonizer Name Role Phone Carrol Pitts MD, Federico Howe Primary Care Provider Farrukh Solorzano MD Unavailable -[phone] Keya Reina MD Unavailable Unavailable [place] SoapstoneOsmar MD Unavailable Francisco Tobin MD Unavailable [phone] Jc Moreau MD Unavailable [phone] Ryland Alves MD Unavailable Lorene Ly MD Unavailable [facility] Unavailable Bahman Ann MD Unavailable Mendy Camacho Unavailable Liss Gooden MD Primary Care Provider [phone] Alycia Holguin RN Unavailable Kylah Solares Unavailable [phone] Carrol Pitts MD, Federico Howe Unavailable Carrol Pitts MD, Federico Howe Unavailable Carrol Pitts MD, Federico Howe Primary Care Provider Sohan Octavia D HYDRAULICS ENGINEER-[facility] Unavailable [phone] Encounter Details Date Type Department Care Team (Late st Contact Info) Description 08/22/2023 Telephone [facility] - Orthopedics [address] [place] [phone] Jory Price RN Social History Tobacco Use Types Packs/Day Years Used Date Smoking Tobacco: Never Smokeless Tobacco: Never Alcohol Use Standard Drinks/Week Comments No 0 (1 standard drink = 0.6 oz pur e alcohol) AUDIT-C Answer Date Recorded Q1: How often do you have a drink containing alc ohol? Never 12/31/2020 Average Number of Drinks Not on file 021 Q3: How often do you have si x or more drinks on one occasion? Never 12/31/2020 PHQ-2 Answer Date Recorded Patient Health Questionnaire-2 Score 0 08/22/2023 Sex and Gender Information Value Date Recorded Sex Assigned at Female 02/14/2020 1:06 PM METAL BUMPER Gender Identity Female 02/14/2020 1:05 PM METAL BUMPER Sexual Orientation Straight 02/14/2020 1: 05 PM METAL BUMPER documented as of this encounter Functional Status Functional Status Response Date of Assess ment Is person deaf or have serious hearing difficult y? No 11/19/2020 Is person blind or have serious difficulty seein g? No 11/19/2020 Does person have serious dif ficulty walking/climbing stairs? No 11/19/2020 Does person have difficulty dressing/bathing? No 11/19/2020 Does person have difficulty doing errands alone? Yes 11/19/2020 Cognitive Status Response Date of Assessm ent Does person have difficulty concentrating/remembering/making decisions? No 11/19/2020 documented as of this encounter Miscellaneous Notes * Telephone Encounter - Jory Price RN - 08/22/2023 11:03 AM CDT Returned phone to call patient, endorsing cervical pain and trouble swallowing. Patient reports symptoms intensified on Monday. Patient is S/P ACDF C4-7 04/10/2023. She reports being unable to turn her neck sie to side or lift her head up without assistance. Patient's reports pain concerning enough she wanted to be evaluated in the ED. Clinic visit offeredwith Dr. Fuentes on 08/22/2023 at 12:45 pm. Patient amenable to this plan and confirms she has transportation for the visit. documented in this encounter Plan of Treatment Upcoming Encounters Date Type Department Care Team (Late st Contact Info) Description 03/29/2024 2:00 PM METAL BUMPER Office Visit [address] [phone] Federico Branham Jr., MD [address] [place] [address] 04/11/2024 10:20 AM METAL BUMPER Office Visit [address] [phone] Federico Branham Jr., MD [address] [place] [address] 04/18/2024 1:00 PM METAL BUMPER Office Visit [facility] [address] [place] [address] [address] [place] [address] Federico Branham Jr., MD [address] [place] [address] Bahman Ann MD [address] [place] [phone] 05/27/2024 10:00 AM CDT Office Visit [facility] - Neurology [address] [place] [address], [place] [phone] Celi Bob PA-C [address] [place] [address] [address] [place] [phone] 05/28/2024 11:15 AM CDT [facility] [address] [place] [address], [place] [phone] Jaylon Marks MD [address] [place] [address] [place] [phone] 07/16/2024 2:15 PM CDT Office Visit [facility] - Orthopedics [address] [place] [phone] Ryland Fuentes MD [address] [place] [address] 07/30/2024 10:20 AM CDT Office Visit [facility] - Family Medicine [phone] [place] [address] [address] [place], [place] [phone] [place] [address] [facility] [address] [place] [phone] 08/06/2024 10:20 AM CDT Office Visit [facility] - Podiatry [address] [place] [address] Devika Rolon DPM [id number] [place] [address] [address] [place], [place] [phone] 01/10/2025 10:00 AM METAL BUMPER Office Visit [facility] - GI [address] [place] [address], [place] [phone] Thais Euceda PA-C [address] DEPT [place] [address] documented as of this encounter Goals Goal Patient Goal Type Associated Problems Recent Progress Patient-Stated? Author Medication Management General On track( 024 9:50 AM METAL BUMPER) Andra Fonseca, RN Note: Expected end date: ongoing Interventions: Take [...] Onset Date Last Indicated Resolved Time VRE Hx 06/08/2020 06/08/2020 COVID-19 Under Investigation 10/14/2023 10/14/2023 10/14/2023 11:24 AM CDT COVID-19 Under Investigation 03/16/2024 03/16/2024 03/16/2024 2:43 PM METAL BUMPER COVID-19 Under Investigation 03/16/2024 03/16/2024 03/16/2024 3:58 PM METAL BUMPER Influenza A or B 03/16/2024 03/16/2024 03/23/2024 4:33 AM METAL BUMPER documented as of this encounter Care Teams Carbonizer Relationship Specialty Start Date End Date Federico Branham Jr., MD PCP - General Family Medicine 08/01/18 09/24/23 Bahman Ann MD [address] [facility] [address] [place] [phone] PCP - Strive ACO 08/21/23 10/21/23 [place] [address] [address] PCP - General Family Medicine 09/25/23 12/14/23 Federico Branham Jr., MD [address] [place] [address] PCP - Strive ACO 10/22/23 Federico Branham Jr., MD [address] [place] [address] PCP - Attributed-MSSP 08/21/23 11/20/23 Federico Branham Jr., MD [address] [place] [address] PCP - General Family Medicine 12/15/23 Octavia Parry, HYDRAULICS ENGINEER-[employer] [address] [place] [address] PCP - Attributed-MSSP 11/21/23 Farrukh Solorzano MD [address] [place] [address] [address] [place] [address] -x7 (Work) Cardiovascular Disease 08/01/18 Keya Reina MD [address] [facility] [address] [place] [address] Gastroenterology 08/01/18 Osmar Zambrano MD [address] [facility] [address] [place] [address] Otolaryngology 08/01/18 Francisco Tobin MD [facility] [phone] Pulmonary Disease 08/01/18 Jc Moreau MD [facility] [address] [place] [address] Nephrology 08/01/18 [place] [address] [facility] [address] [place] [address] Warp Knitter Cardiac Electrophysiology 09/03/18 [place] [address] [facility] [address] [place] [address] Cardiology 04/25/19 [facility] Prorate ClerkRf Engineer 08/29/19 Mendy Camacho [address] [facility] [address] [place] [phone] Care Coordination Specialist Care Management 09/21/23 09/21/23 Alycia Holguin, RN [address] [facility] [address] Prorate ClerkRf Engineer 10/20/23 10/20/23 Kylah Solares Care Coordination Specialist Care Management 10/25/23 12/01/23 documented as of this encounter
--- OUTSIDE RECORDS SUMMARY | 2024-03-25 09:07 | XMS_ITS | Encounter Summary ---
Author Organization [facility] Address [address] [place] [address] Phone Care Team Providers Care Provider Service Representative Name Role Phone Unavailable Primary Care Provider Unavailabl e Reason for Visit * Reason Comments Med Refill Encounter Details Date Type Department Care Team (Late st Contact Info) Description 08/20/2018 Refill [facility] Nephrology and Hypertension [address] [facility], [address] [facility] [place] [address] Jc Moreau MD [address] [facility], [address] [place] [address] Social History Tobacco Use Types Packs/Day Years Used Date Smoking Tobacco: Never Assessed Sex and Gender Information Value Date Recorded Sex Assigned at Not on file Gender Identity Not on file Sexual Orientation Not on file documented as of this encounter Plan of Treatment Not on file documented as of this encounter Visit Diagnoses Not on filedocumented in this encounter
--- OUTSIDE RECORDS SUMMARY | 2024-03-25 09:07 | XMS_ITS ---
Author Organization [facility] [address] Address [address] [place] [address] Care Team Providers Care Healthcare Social Worker Name Role Phone Carorl Pitts MD, Federico Howe Primary Care Provider Adalberto Linder MD Unavailable Jc Moreau MD Unavailable Carmen Chavez RN Unavailable [phone] Transplant Episode Kidney Candidate [facility] ([place], [place]) - [facility] Referred on 03/07/2024 Marked as Active on 03/11/2024 Reason: Finance Approved Ready for Evaluation Kidney CoordinatorCarmen Chavez RN Fax: N/A Email: N/A Scores Score Value Updated Exceptions/Reas ons CPRA Not available EPTS (Calc) 100 03/25/2024 Care Team Name Role Phone Fax Email Carmen Chavez RN Kidney Coordinator [phone] N/A N/A Jc Moreau MD Referring Physician [phone] N/A Lorene Banerjee Primary Badger Distiller Operator N/A N/A N/A [employer] 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
--- NOTE | 2024-03-25 09:08 | ED_ITS ---
HPI - SOB/Dyspnea General Chief Complaint: Shortness of Breath/Dyspnea <Charbel Hannon PA-C - Last Filed: 03/25/24 18:17> Stated Complaint: possible pneumonia <Charbel Hannon PA-C - Last Filed: 03/25/24 18:17> Time Seen by Provider: 03/25/24 08:55 <Charbel Hannon PA-C - Last Filed: 03/25/24 18:17> Source: patient <LISBET Stewart Last Filed: 03/25/24 18:17> Mode of arrival: ambulatory <Charbel Hannon PA-C - Last Filed: 03/25/24 18:17> Limitations: no limitations <Charbel Hannon PA-C - Last Filed: 03/25/24 18:17> History of Present Illness HPI Narrative: This is a 68-year-old female with PMH of ESRD, T2 dm, CAD, COPD, paroxysmal AFib s/p Watchmen's procedure 2023, gout who presents to the ED for chief complaint of shortness of breath and cough over the past couple weeks. Patient reports the last week she tested positive for flu and took a full course of Tamiflu. States that the cough and shortness of breath seems to be getting worse. States the cough is not productive. She feels that she has been having fevers at home. She did complete dialysis today and was seen by Dr. Moreau who recommended going to the ER. Denies chest pain, abdominal pain, nausea, vomiting. <Charbel Hannon PA-C - Last Filed: 03/25/24 18:17> Related Data Home Medications: Home Medications ?Medication ?Instructions ?Recorded ?Confirmed ?Last Taken ?Type acetaminophen 500 mg tablet 500 mg PO QID PRN Fever Or Pain 10/18/23 03/25/24 Unknown History cholecalciferol (vitamin D3) 25 3,000 unit PO DAILY 10/18/23 03/25/24 03/24/24 09:00 History mcg (1,000 unit) tablet (Vitamin D3) cinacalcet 30 mg tablet (Sensipar) 60 mg PO QMWF 10/18/23 03/25/24 03/25/24 10:00 History fluoxetine 10 mg capsule (Prozac) 10 mg PO DAILY 10/18/23 03/25/24 03/25/24 09:00 History midodrine 5 mg tablet 15 mg PO TIDWMEAL 10/18/23 03/25/24 03/25/24 09:00 History aspirin 81 mg tablet,delayed 81 mg PO DAILY 03/25/24 03/25/24 03/24/24 09:00 History release (Adult Aspirin Regimen) gabapentin 100 mg capsule 200 mg PO BID 03/25/24 03/25/24 03/24/24 17:00 History lanthanum 1,000 mg chewable tablet 1,000 mg PO .with meals 03/25/24 03/25/24 03/24/24 09:00 History omeprazole 20 mg capsule,delayed 20 mg PO BID 03/25/24 03/25/24 03/24/24 21:00 History release <Charbel Hannon PA-C - Last Filed: 03/25/24 18:17> Allergies/Adverse Reactions: Allergies Allergy/AdvReac Type Severity Reaction Status Date / Time lisinopril Allergy Unknown Unknown Verified 03/25/24 16:07 propoxyphene Allergy Unknown Unknown Verified 03/25/24 16:07 valsartan Allergy Unknown lost voice Verified 03/25/24 16:07 <Charbel Hannon PA-C - Last Filed: 03/25/24 18:17> Review of Systems 2 Review of Systems: All systems as dictated in HPI <Charbel Hannon PA-C - Last Filed: 03/25/24 18:17> [facility] Past Medical History Medical History: Medical History (Updated 03/25/24 @ 13:10 by Saul العلي MD) Hx of completed stroke 10/05/23 small left occipital lobe stroke after c-spine surgery Chronic hypotension Chronic obstructive pulmonary disease Hypotension On midodrine. Chronic anticoagulation Renal osteodystrophy Combined systolic and diastolic congestive heart failure Echo 10/2012: severe LV enlargement, moderate LV dysfunction with wall motion abnormality at the inferior basal segment, EF 44%, grade 2 diastolic dysfunction. Non-ischemic cardiomyopathy Negative cardiac catheterization showing no obstructive coronary disease in 2003 at [place]. EF at that time was 20% but has improved to 54% in 02/2015. Chronic anemia History of blood transfusions. Hypothyroidism Gout Kidney stones Peptic ulcer (07/2003) Gastroesophageal reflux disease Deep venous thrombosis (02/2013) Paroxysmal atrial fibrillation s/p Watchman Obstructive sleep apnea End-stage renal disease on hemodialysis (09/2009) Type II diabetes mellitus Complicated by peripheral neuropathy and nephropathy. Asthma Diverticulosis Anxiety Hyperlipidemia <Charbel Hannon PA-C - Last Filed: 03/25/24 18:17> Surgical History Surgical History: Surgical History (Updated 03/25/24 @ 12:52 by Saul العلي MD) Hx of cervical spine surgery C3-C6 laminectomies, C2-C7 instrumented posterior spinal fusion on 10/05/23 at [facility] Presence of Watchman left atrial appendage closure device 02/08/24 History of colonoscopy with polypectomy History of cardiac catheterization (08/20/13) Normal coronary arteries per Dr. Oliveros at [facility] Status post creation of arteriovenous fistula Left forearm. History of parathyroidectomy History of cystoscopy (03/2012) History of sleeve gastrectomy (2013) History of cardiac radiofrequency ablation (1993) For SVT. History of mandibular surgery (1987) For TMJ. History of angioplasty History of myomectomy History of cholecystectomy (2014) History of section History of hysterectomy (1993) <Charbel Hannon PA-C - Last Filed: 03/25/24 18:17> Family History Family History: Family History Mother Hypertension Family history of congestive heart failure Family history of congenital heart disease Family history of arthritis Family history of kidney disease Family history of chronic obstructive pulmonary disease Father Carcinoma of colon Sibling Family history of diabetes mellitus in first degree relative Grandparent Family history of congestive heart failure Diabetes mellitus Father Carcinoma of colon Mother Diabetes mellitus Acute myocardial infarction Hypertension Hyperlipidemia Grandparent Diabetes mellitus Acute myocardial infarction Stomach cancer Other Family history of cardiovascular disease <Charbel Hannon PA-C - Last Filed: 03/25/24 18:17> Social History Social History: Social History (Updated 03/25/24 @ 12:45 by Saul العلي MD) Social History: Lives alone. Never smoker. No alcohol use. No drug use or hx of drug use. No pets. Surrogate decision maker: Sara Tobin Code status: Full code. Smoking status: Never smoker Second hand tobacco smoke exposure: No Alcohol intake: never Substance use: never Substance use type: does not use Do You Feel Safe in your Home?: Yes Lack of Transportation: No Lack of Food: Sometimes True Current Housing: I Have Housing Concerned About Future Housing: No Difficulty Paying Gas/Electric Bills: No Difficulty Paying for Meds: No Currently Unemployed: No Education: Decline to Answer Difficulty w/ Childcare or Family Care: No Additional living arrangements comments: Lives in [place]. 3 grown children. 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 Spiritual care concerns: No <Charbel Hannon PA-C - Last Filed: 03/25/24 18:17> Exam 2 Narrative: GENERAL: Appears chronically ill. HEAD: Normocephalic, atraumatic. EYES: PERRLA and EOMI. ENT: Nares clear, no rhinorrhea or epistaxis. Mucous membranes moist. Oropharynx without tonsillar hypertrophy exudate or other lesions. NECK: Supple. No adenopathy or masses. CHEST: No respiratory distress. Slightly tachypneic. Coughing on exam. Coarse lung sounds heard throughout. 99% on RA. HEART: Regular rate and rhythm. No murmur heard. Normal peripheral pulses. ABDOMEN: Soft, nontender, nondistended, normal active bowel sounds. MSK: Normal range of motion. No edema. Dialysis fistula in the left forearm SKIN: Warm, dry, no rash. NEURO: Alert and oriented x4. No focal deficits. PSYCH: Normal mood and affect. <Charbel Hannon PA-C - Last Filed: 03/25/24 18:17> Course CONTRACTS SPECIALIST/PA Physician Supervision I did review the chart and agree with the management <Carlos Melgar MD - Last Filed: 03/25/24 16:26> Vital Signs Vital signs: Vital Signs Pulse Rate 92 03/25/24 09:00 Respiratory Rate 25 H 03/25/24 09:00 Pulse Oximetry 96 03/25/24 09:00 Temperature 97.9 F 03/25/24 09:01 Pulse Rate 89 03/25/24 14:53 Respiratory Rate 20 03/25/24 14:53 Blood Pressure 139/83 03/25/24 14:25 Pulse Oximetry 95 03/25/24 14:43 Oxygen Delivery Room Air 03/25/24 14:43 <Charbel Hannon PA-C - Last Filed: 03/25/24 18:17> Vital Signs Pulse Rate 92 03/25/24 09:00 Respiratory Rate 25 H 03/25/24 09:00 Pulse Oximetry 96 03/25/24 09:00 Temperature 97.9 F 03/25/24 09:01 Pulse Rate 89 03/25/24 14:53 Respiratory Rate 20 03/25/24 14:53 Blood Pressure 139/83 03/25/24 14:25 Pulse Oximetry 95 03/25/24 14:43 Oxygen Delivery Room Air 03/25/24 14:43 <Carlos Melgar MD - Last Filed: 03/25/24 16:26> MDM - SOB/Dyspnea MDM Narrative Medical decision making narrative: This is a 68-year-old female who presents to the ED for chief complaint of cough, shortness of breath. She is end-stage renal. Vitals initially showed tachypnea but no fever or tachycardia. She did complete dialysis today. Lab work shows normal white count on CBC. Hemoglobin slightly low at 7.9 compared to her baseline. Comprehensive shows no acute findings. BnP greater than 30,000. CXR: IMPRESSION: 1. New airspace opacity lateral left lower lung zone which could be due to atelectasis, pneumonia, paracardial fat pad or some combination thereof. 2. Cardiomegaly. CT chest: IMPRESSION: 1. Scattered chronic interstitial lung disease in both lungs which include multiple tiny calcified nodules consistent with either sequela of old granulomatous disease or potentially dystrophic calcification related to renal osteodystrophy. 2. Cardiomegaly. 3. Small sliding-type hiatal hernia. 4. Nephrolithiasis versus atherosclerotic calcifications at the visualized portion of the upper pole the right kidney.. Presentation consistent with lower respiratory infection. There is concern for possible superimposed bacterial infection on top of influenza that occurred last week. Patient will be started on community-acquired antibiotics and admitted for observation. She will be admitted with stable vital signs and still only mildly tachypneic. Spoke with hospitalist who agrees to admit the patient to the medical floor. < Charbel Hannon PA-C - Last Filed: 03/25/24 18:17> Lab Data Result diagrams: 03/25/24 10:11 03/25/24 10:11 <Charbel Hannon PA-C - Last Filed: 03/25/24 18:17> Labs: Lab Results 03/25/24 03/25/24 Range/Units 10:11 10:43 WBC 8.0 (4.5-10.0) K/mm3 RBC 2.85 L (4.2-5.4) M/mm3 Hgb 7.9 L (12.0-15.0) g/dL Hct 25.5 L (37.0-47.0) % MCV 89.5 (80-100) fl MCH 27.7 (26-34) pg MCHC 31.0 L (32-36) g/dl RDW 15.9 H (11.5-14.5) % Plt Count 265 (150-375) k/mm3 MPV 9.9 (7.4-10.4) fl Immature Gran % (Auto) 1.0 H (0-0.5) % Neut % (Auto) 68.7 (45.5-73.1) % Lymph % (Auto) 18.7 (18.3-44.2) % [place] % (Auto) 7.9 (2.6-8.5) % Eos % (Auto) 3.5 (0-4.4) % Baso % (Auto) 0.2 (0.2-1.2) % Lymph # (Auto) 1.50 (0.9-3.2) K/mm3 [place] # (Auto) 0.6 (0.1-0.6) K/mm3 Eos # (Auto) 0.3 (0-0.3) K/mm3 Baso # (Auto) 0.0 (0.0-0.1) K/mm3 Abs Immat Gran (auto) 0.08 H (0.00-0.031) K/mm3 Absolute Neuts (auto) 5.5 (1.3-6.7) K/mm3 Absolute Nucleated RBC 0.000 (0.0-0.012) K/mm3 Nucleated RBC % 0.0 (0.0-0.2) % PT 14.0 (11.1-14.7) Seconds INR 1.1 APTT 33.9 (22.3-36.8) Seconds Sodium 138 (137-145) mmol/L Potassium 3.4 (3.4-5.0) mmol/L Chloride 97 L (98-107) mmol/L Carbon Dioxide 27 (22-30) mmol/L Anion Gap 14 H (4-12) mmol/L BUN 23 H D (7-17) mg/dL Creatinine 4.94 H (0.7-1.0) mg/dL Estim Creat Clear Calc 10 ml/min Estimated GFR 11 L (59 - ) Glucose 94 (65-110) mg/dL Lactic Acid 0.9 (0.7-2.0) mmol/L Calcium 8.5 (8.4-10.2) mg/dL Total Bilirubin 0.6 (0.2-1.3) mg/dL AST 32 (14-36) U/L ALT 10 (6-35) U/L Alkaline Phosphatase 88 (38-126) U/L Troponin I < 0.012 (0.000-0.034) ng/mL NT-Pro-B Natriuret Pep > 50212 H (19.9-100) pg/mL Total Protein 7.0 (6.3-8.2) g/dL Albumin 3.9 (3.5-5.1) g/dL Lipase 119 (23-300) U/L Influenza A (RT-PCR) Negative (Negative) Influenza B (RT-PCR) Negative (Negative) RSV (RT-PCR) Negative (Negative) SARS-CoV-2 RNA (RT-PCR) Negative (Negative) <Charbel Hannon PA-C - Last Filed: 03/25/24 18:17> Lab Results 03/25/24 03/25/24 Range/Units 10:11 10:43 WBC 8.0 (4.5-10.0) K/mm3 RBC 2.85 L (4.2-5.4) M/mm3 Hgb 7.9 L (12.0-15.0) g/dL Hct 25.5 L (37.0-47.0) % MCV 89.5 (80-100) fl MCH 27.7 (26-34) pg MCHC 31.0 L (32-36) g/dl RDW 15.9 H (11.5-14.5) % Plt Count 265 (150-375) k/mm3 MPV 9.9 (7.4-10.4) fl Immature Gran % (Auto) 1.0 H (0-0.5) % Neut % (Auto) 68.7 (45.5-73.1) % Lymph % (Auto) 18.7 (18.3-44.2) % [place] % (Auto) 7.9 (2.6-8.5) % Eos % (Auto) 3.5 (0-4.4) % Baso % (Auto) 0.2 (0.2-1.2) % Lymph # (Auto) 1.50 (0.9-3.2) K/mm3 [place] # (Auto) 0.6 (0.1-0.6) K/mm3 Eos # (Auto) 0.3 (0-0.3) K/mm3 Baso # (Auto) 0.0 (0.0-0.1) K/mm3 Abs Immat Gran (auto) 0.08 H (0.00-0.031) K/mm3 Absolute Neuts (auto) 5.5 (1.3-6.7) K/mm3 Absolute Nucleated RBC 0.000 (0.0-0.012) K/mm3 Nucleated RBC % 0.0 (0.0-0.2) % PT 14.0 (11.1-14.7) Seconds INR 1.1 APTT 33.9 (22.3-36.8) Seconds Sodium 138 (137-145) mmol/L Potassium 3.4 (3.4-5.0) mmol/L Chloride 97 L (98-107) mmol/L Carbon Dioxide 27 (22-30) mmol/L Anion Gap 14 H (4-12) mmol/L BUN 23 H D (7-17) mg/dL Creatinine 4.94 H (0.7-1.0) mg/dL Estim Creat Clear Calc 10 ml/min Estimated GFR 11 L (59 - ) Glucose 94 (65-110) mg/dL Lactic Acid 0.9 (0.7-2.0) mmol/L Calcium 8.5 (8.4-10.2) mg/dL Total Bilirubin 0.6 (0.2-1.3) mg/dL AST 32 (14-36) U/L ALT 10 (6-35) U/L Alkaline Phosphatase 88 (38-126) U/L Troponin I < 0.012 (0.000-0.034) ng/mL NT-Pro-B Natriuret Pep > 11447 H (19.9-100) pg/mL Total Protein 7.0 (6.3-8.2) g/dL Albumin 3.9 (3.5-5.1) g/dL Lipase 119 (23-300) U/L Influenza A (RT-PCR) Negative (Negative) Influenza B (RT-PCR) Negative (Negative) RSV (RT-PCR) Negative (Negative) SARS-CoV-2 RNA (RT-PCR) Negative (Negative) <Carlos Melgar MD - Last Filed: 03/25/24 16:26> Discharge Plan Discharge Clinical Impression: Community acquired pneumonia, ESRD (end stage renal disease) <Charbel Hannon PA-C - Last Filed: 03/25/24 18:17> Patient Disposition: Still a Patient <Cahrbel Hannon PA-C - Last Filed: 03/25/24 18:17> Condition: Stable <Charbel Hannon PA-C - Last Filed: 03/25/24 18:17>
--- OUTSIDE RECORDS SUMMARY | 2024-03-25 09:09 | XMS_ITS | Data Portability ---
Author Organization [facility]un[facility] SI (11) Address [id number] [place] [id number] Care Team Providers Care Racket Stringer Name Role Phone JAYME DONALDSON Primary Care Provider [phone] KACIE HAQ Referring Provider [phone] Assessment No assessment recorded. Plan of Treatment Reminders Order Date Submit Date Provider Last Modified By Organization Details Last Modified Time Details Appointments None record ed. Lab None record ed. Referral None record ed. Procedures None record ed. Surgeries None record ed. Imaging None record ed. Medication Orders None record ed. Patient TargetsNo targets recorded. Patient InstructionsNo instructions recorded. Reason for Referral None Reported. Procedures Surgical History Date Name Laterality Status Provider Name and Address Organization Details Recorded Time 12/03/2021 Sleep Study completed Francisco Tobin MD, F.C.C.P. [address] [place] [address], [place], [address], [facility]/[employer]/[facility] 12/07/2021 07:36:18 Imaging Results None recorded. Procedure Notes None recorded. Medical Equipment None Reported. Medications Name Sig Start Date Stop Date Status Note LastModified by Organization Details LastModified Time cyclobenzapr ine 10 mg tablet TAKE 1/2 TABLET BY MOUTH THREE TIMES DAILY NEEDED FOR MUSCLE SPASMS active Not Available Not Available No t Available amoxicillin 500 mg capsule TAKE ONE CAPSULE BY MOUTH EVERY 6 HOURS UNTIL ALL TAKEN active Not Available Not Available No t Available atorvastatin 20 mg tablet TAKE 1 TABLET BY MOUTH AT BEDTIME active Not Available Not Available No t Available [place] 128 5 % eye ointment APPLY INTO BOTH EYES EVERY NIGHT AT BEDTIME active Not Available Not Available N ot Available acetaminophe n 300 mg-codeine 30 mg tablet active Not Available Not Available Not Available fluoxetine 10 mg capsule TAKE 1 CAPSULE BY MOUTH EVERY DAY active Not Available Not Available No t Available omeprazole 20 mg capsule,laura yed release TAKE 1 CAPSULE BY MOUTH TWICE DAILY active Not Available Not Available No t Available montelukast 10 mg tablet TAKE 1 TABLET BY MOUTH AT BEDTIME active Not Available Not Available No t Available digoxin 125 mcg (0.125 mg) tablet TAKE 1 TABLET BY MOUTH EVERY DAY active Not Available Not Available No t Available gabapentin 100 mg capsule TAKE 2 CAPSULES BY MOUTH THREE TIMES DAILY active Not Available Not Available Not Available metoprolol succinate ER 25 mg tablet,exten ded release 24 hr TAKE 1/2 TABLET BY MOUTH TWICE DAILY active Not Available Not Available No t Available fluoxetine 20 mg capsule TAKE 1 CAPSULE BY MOUTH EVERY DAY active Not Available Not Available No t Available midodrine 10 mg tablet TAKE 2 TABLETS BY MOUTH THREE TIMES DAILY active Not Available Not Available Not Available Dialyvite 800 0.8 mg tablet TAKE 1 TABLET BY MOUTH EVERY DAY active Not Available Not Available No t Available calcium acetate(phos phate binders) 667 mg capsule TAKE 2 CAPSULES BY MOUTH WITH EACH MEAL AND 2 CAPSULES BY MOUTH EVERY EVENING active Not Available Not Available No t Available lanthanum 1,000 mg chewable tablet TAKE 2 TABLETS BY MOUTH WITH EACH MEAL AND 1 TABLET WITH EACH SNACK active Not Available Not Available N ot Available Gavilyte-C 240 gram-22.72 gram-6.72 gram-5.84 gram oral solution DRINK PREP SOLUTION AROUND 5 PM THE NIGHT BEFORE YOUR COLONOSCOPY active Not Available Not Available Not Available Linzess 145 mcg capsule TAKE 1 CAPSULE BY MOUTH EVERY DAY BEFORE BREAKFAST. TAKE ON AN EMPTY STOMACH AT LEAST 30 MINUTES PRIOR TO FIRST MEAL OF THE DAY active Not Available Not Available N ot Available Eliquis 2.5 mg tablet TAKE 1 TABLET BY MOUTH TWICE DAILY active Not Available Not Available No t Available Vitals Date Recorded Body height Body mass index (BMI) Body weight Provider Name and Address Organization Details Last Updated DateTime 12/06/2021 157.48 cm 45.7 kg/m2 729194.09 g Matt Mueller [facility] 12/06/2021 14:26:55 Social History None recorded. Functional Status None recorded. Mental Status None recorded. Family History Nothing Reported. Medical History No medical history recorded. Gynecological HistoryNo gynecological history recorded. Obstetrics History GPAL:G 0 P 0 0 0 0 Past Encounters Encounter ID Performer Location Encounter Start Date Encounter Closed Date Diagnosis/Indication Diagnosis SNOMED-CT Code Diagnosis ICD10 Code Diagnosis Note [id number] Francisco Tobin MD, F.C.C.P. [facility] [phone] [place] [address] 12/03/2021 21:19:35 12/06/2021 13:57:30 Obstructive sleep apnea of adult 7397992866 103 G47.33 Health Concerns Section Related Observation LastModified by Organization Detai ls LastModified Time None Recorded Concern Status LastModified by Organization Details LastModified Time None Recorded Advance Directives Directive None Recorded Payers Encounter Date Sequence Insurance Name Policy Number Policy Ravi Covered Member ID Ravi Member ID Guarantor Name 12/03/2021 1 [place] Donya Tobin [id number] Donya Tobin 12/03/2021 2 [place] [id number] Donya Tobin [id number] Donya Tobin OBGyn Episode No OBEpisode recorded.
--- OUTSIDE RECORDS SUMMARY | 2024-03-25 09:09 | XMS_ITS | Encounter Summary ---
Author Organization [facility] Address [address] [facility] [facility] [place] [address] Care Team Providers Care Medical Communication Specialist Name Role Phone Azul Godoyviji Go Unavailable Unavailable Carrol Pitts MD, Federico Howe Primary Care Provider Farrukh Solorzano MD Unavailable [phone] Keya Reina MD Unavailable Unavailable Juan ManuelOsmar marie MD Unavailable Francisco Tobin MD Unavailable [phone] Jc Moreau MD Unavailable [phone] Ryland Alves MD Unavailable Lorene Ly MD Unavailable [facility], [facility] Kidney Unavailable Bahman Ann MD Unavailable Carrol Pitts MD, Federico Howe Unavailable Celi Carter LCSW Unavailable Carrol Pitts MD, Federico Howe Unavailable Ryland Alves MD Unavailable Piotr Alvarez MD Unavailable [phone] Carrol Pitts MD, Federico Howe Unavailable Julee Kang MD Unavailable [phone] Carrol Pitts MD, Joseph Theodore Unavailable Bahman Ann MD Unavailable Oralia Boone RN Unavailable [phone] Francesco Hong MD Unavailable Zoey Boyle RETAINING ROOM CUTTER-PORTFOLIO ACCOUNTANT Unavailable Bahman Ann MD Unavailable Mendy Camacho Unavailable Liss Gooden MD Primary Care Provider [phone] Alycia Holguin RN Unavailable Kylah Solares Unavailable Carrol Pitts MD, Joseph Theodore Unavailable Carrol Pitts MD, Joseph Theodore Unavailable Carrol Pitts MD, Joseph Theodore Primary Care Provider Octavia Parry RETAINING ROOM CUTTER-PORTFOLIO ACCOUNTANT Unavailable [phone] Encounter Details Date Type Department Care Team (Late st Contact Info) Description 02/05/2020 [facility] Outpatient Visit [facility] [address] [place] [address] Millie Carnes RETAINING ROOM CUTTER-PORTFOLIO ACCOUNTANT [address] [place] [address] Social History Tobacco Use Types Packs/Day Years Used Date Smoking Tobacco: Never Smokeless Tobacco: Never Alcohol Use Standard Drinks/Week Comments No 0 (1 standard drink = 0.6 oz pur e alcohol) Sex and Gender Information Value Date Recorded Sex Assigned at Female 02/14/2020 1:06 PM ROBOT OPERATOR Gender Identity Female 02/14/2020 1:05 PM ROBOT OPERATOR Sexual Orientation Straight 02/14/2020 1: 05 PM ROBOT OPERATOR documented as of this encounter Functional Status Functional Status Response Date of Assess ment Is person deaf or have serious hearing difficult y? No 08/29/2018 Is person blind or have serious difficulty seein g? No 08/29/2018 Does person have serious dif ficulty walking/climbing stairs? No 08/29/2018 Does person have difficulty dressing/bathing? No 08/29/2018 Does person have difficulty doing errands alone? No 08/29/2018 Cognitive Status Response Date of Assessm ent Does person have difficulty concentrating/remembering/making decisions? No 08/29/2018 documented as of this encounter Plan of Treatment Upcoming Encounters Date Type Department Care Team (Late st Contact Info) Description 03/29/2024 2:00 PM ROBOT OPERATOR Office Visit [address] [phone] Federico Branham Jr., MD [address] [place] [address] 04/11/2024 10:20 AM ROBOT OPERATOR Office Visit [address] [phone] Federico Branham Jr., MD [address] [place] [address] 04/18/2024 1:00 PM ROBOT OPERATOR Office Visit [facility] [address] [place] [address] Federico Branham Jr., MD [address] [place] [address] Bahman Ann MD [address] [place] [phone] 05/27/2024 10:00 AM CDT Office Visit [facility] - Neurology [address] [place] [phone] Celi Bob PA-C [address] [place] [address] [address] [place] [phone] 05/28/2024 11:15 AM CDT Office Visit [facility] - Ophthalmology [address] [place] [phone] Jaylon Marks MD [address] [place] [address] [place] [phone] 07/16/2024 2:15 PM CDT [facility] [address] [place] [phone] Ryland Fuentes MD [address] [place] [address] 07/30/2024 10:20 AM CDT Office Visit [facility] - Family Medicine [id number] [place] [address] [address] [place] [address] [place] [address] [facility] [address] [place] [phone] 08/06/2024 10:20 AM CDT Office Visit [facility] - Podiatry [address] [facility] [address] [place] [address] Devika Rolon DPM [phone] [place] [address] [address] [place] [address] 01/10/2025 10:00 AM ROBOT OPERATOR Office Visit [facility] - GI [address] [place] [phone] Thais Euceda PA-C [address] [facility] DEPT [place] [phone] documented as of this encounter Goals Goal Patient Goal Type Associated Problems Recent Progress Patient-Stated? Author Medication Management General On track( 024 9:50 AM ROBOT OPERATOR) Andra Fonseca RN Note: Expected end date: ongoing Interventions: [...] Under Investigation 02/09/2023 02/09/2023 02/09/2023 2:41 PM ROBOT OPERATOR COVID-19 Under Investigation 10/14/2023 10/14/2023 10/14/2023 11:24 AM CDT COVID-19 Under Investigation 03/16/2024 03/16/2024 03/16/2024 2:43 PM ROBOT OPERATOR COVID-19 Under Investigation 03/16/2024 03/16/2024 03/16/2024 3:58 PM ROBOT OPERATOR Influenza A or B 03/16/2024 03/16/2024 03/23/2024 4:33 AM ROBOT OPERATOR documented as of this encounter Care Teams Medical Communication Specialist Relationship Specialty Start Date End Date Federico Branham Jr., MD PCP - General Family Medicine 08/01/18 09/24/23 Bahman Ann MD [address] [facility] [address] [place] [phone] PCP - Attributed-MSSP 01/21/20 0 Federico Branham Jr., MD [address] [place] [address] PCP - Attributed-MSSP 02/21/20 10/20/21 Federico Branham Jr., MD [address] [place] [address] PCP - Strive ACO 09/27/21 01/09/22 [place] [address] [phone] PCP - Attributed-MSSP 10/21/21 2 Piotr Alvarez MD [address] [place] [phone] PCP - Strive ACO 01/10/22 03/28/22 Federico Branham Jr., MD [address] [place] [address] PCP - Attributed-MSSP 01/20/22 05/21/23 Julee Kang MD [address] [facility] [address] [place] [address] PCP - Strive ACO 03/29/22 05/20/22 Federico Branham Jr., MD [address] [place] [address] PCP - Strive ACO 05/21/22 08/19/22 Bahman Ann MD [address] [facility] [address] [place] [phone] PCP - Strive ACO 08/20/22 12/20/22 Francesco Hong MD [address] [place] [phone] PCP - Strive ACO 12/21/22 08/20/23 Zoey Boyle, RETAINING ROOM CUTTER-PORTFOLIO ACCOUNTANT [address] [place] [address] PCP - Attributed-MSSP 05/22/23 08/20/23 Bahman Ann MD [facility] [address] [phone] PCP - Strive ACO 08/21/23 10/21/23 [place] [address] [phone] PCP - General Family Medicine 09/25/23 12/14/23 Federico Branham Jr., MD [address] [place] [address] PCP - Strive ACO 10/22/23 Federico Branham Jr., MD [address] [place] [address] PCP - Attributed-MSSP 08/21/23 11/20/23 Federico Branham Jr., MD [address] [place] [address] PCP - General Family Medicine 12/15/23 Octavia Parry, RETAINING ROOM CUTTER-PORTFOLIO ACCOUNTANT [address] [place] [address] PCP - Attributed-MSSP 11/21/23 Eden Godoy Dialysis Liaison 07/01/16 04/10/23 Farrukh Solorzano MD [address] [facility] [address] [place] [phone] [phone] (Work) Cardiovascular Disease 08/01/18 Keya Reina MD [address] [place] [address] [address] [place] [address] Gastroenterology 08/01/18 Osmar Zambrano MD [address] [place] [address] Otolaryngology 08/01/18 Francisco Tobin MD [address] [place] [phone] Pulmonary Disease 08/01/18 Jc Moreau MD [address] [facility] [address] [place] [address] Nephrology 08/01/18 [place] [address] [place] [address] Tip Printer Cardiac Electrophysiology 09/03/18 [place] [address] [place] [address] Cardiology 04/25/19 Care, [facility] Kidney Slubber Machine OperatorOutpatient Dietitian 08/29/19 Celi Carter, [facility] Behavioral Health Therapist Care Management 05/13/20 05/19/20 Oralia Boone RN Slubber Machine OperatorOutpatient Dietitian 12/27/22 12/27/22 Mendy Camacho [address] [facility] [address] [place] [phone] Care Coordination Specialist Care Management 09/21/23 09/21/23 Alycia Holguin RN [address] [facility] [address] Slubber Machine OperatorOutpatient Dietitian 10/20/23 10/20/23 Kylah Solares Care Coordination Specialist Care Management 10/25/23 12/01/23 documented as of this encounter
--- OUTSIDE RECORDS SUMMARY | 2024-03-25 09:09 | XMS_ITS | Referral Summary ---
Author Organization [facility] Address [address] [place] [address] Care Team Providers Care Check Writing Machine Operator Name Role Phone Farrukh Solorzano MD Unavailable [phone] Keya Reina MD Unavailable Unavailable Osmar Zambrano MD Unavailable Francisco Leos MD Unavailable Jc Moreau MD Unavailable [phone] Ryland Alves MD Unavailable Lorene Ly MD Unavailable Care, [facility] Kidney Unavailable Carrol Pitts MD, Joseph Theodore Unavailable Carrol Pitts MD, Federico Howe Primary Care Provider Octavia Parry RECRUITER SPECIALIST-HYDRAULIC PILE HAMMER OPERATOR Unavailable [phone] Source Comments [facility],non-owned Affiliates and Associated Physician Practices is amultiple site organization consisting of ambulatory clinics and hospital sitesin [place], [place], [place] and [place]. This disclosure is being madepursuant to the Care Everywhere program and may not contain all information available regarding this patient. Last updated 17.[facility] Encounters Date Type Department Care Team Description 03/22/2024 Telephone [facility] - Care Coordination [address] [place] [address] Romeo Zelaya CPhT Rx Medication Monitoring 03/22/2024 Travel 03/22/2024 12:47 PM COIN MACHINE MECHANIC - 03/22/2024 11:59 PM COIN MACHINE MECHANIC Hospital Encounter [facility] [address] [place] [phone] Bahman Ann MD Discharge Disposition: Home or Self Care 03/22/2024 1:30 PM COIN MACHINE MECHANIC - 03/22/2024 2:30 PM COIN MACHINE MECHANIC Surgery [facility] - Cardiac Cnc Service Engineer [address] [place] [phone] Bahman Ann MD CCL DIRECTOR OF SPORTS PERFORMANCE DIAGNOSTIC JAE 03/22/2024 12:59 PM COIN MACHINE MECHANIC Anesthesia Event [facility] - Cardiac Cnc Service Engineer [address] [place] [address] Ovidio Hazel MD Anokhin, Larissa, RECRUITER SPECIALIST-HORTICULTURAL SPECIALTY GROWER 03/22/2024 11:58 AM COIN MACHINE MECHANIC - 03/22/2024 2:52 PM COIN MACHINE MECHANIC Hospital Encounter [facility] - Cardiac Cnc Service Engineer [address] [place] [address] Bahman Ann MD Cardiac Catheterization Discharge Disposition: Home or Self Care 03/19/2024 Travel 03/19/2024 Patient Outreach [facility] - Care Coordination [address] [place] [address] Sada Coates RN [facility] Follow-up 03/19/2024 Patient Outreach [facility] - Care Coordination [address] [place] [address] Carlota Joshi RN Opened In Error 03/17/2024 12:49 AM COIN MACHINE MECHANIC - 03/17/2024 2:15 AM COIN MACHINE MECHANIC Emergency [facility] EMERGENCY DEPARTMENT [address] [place] [phone] Alvaro Mooyd MD Influenza (Primary Dx); Acute cough; Shortness of breath Discharge Disposition: Home or Self Care 03/16/2024 Travel 03/12/2024 2:35 PM COIN MACHINE MECHANIC - 03/12/2024 11:59 PM COIN MACHINE MECHANIC Hospital Encounter [facility] DIAGNOSTIC RAD CSM [address] [facility] [place] [address] Ryland Fuentes MD Discharge Disposition: Home or Self Care 03/12/2024 2:15 PM COIN MACHINE MECHANIC Office Visit [facility] - Orthopedics [address] [place] [phone] Ryland Fuentes MD S/P cervical spinal fusion (Primary Dx) 03/11/2024 Orders Only [facility] - Orthopedics [address] [place] [phone] Ryland Fuentes MD S/P cervical spinal fusion 03/05/2024 Transitional Care [facility] CARE COORDINATION [address] [place] [phone] Pura Lo RN Transitions Of Care 03/04/2024 Travel 02/16/2024 Telephone [facility] [address] [place] [address] [address] [place] [address] Bahman Ann MD [facility] 02/12/2024 Transitional Care [facility] CARE COORDINATION [address] [place] [phone] Pura Lo, JAMESON Transitions Of Care 02/10/2024 Travel 02/08/2024 12:44 PM COIN MACHINE MECHANIC - 02/10/2024 5:20 PM COIN MACHINE MECHANIC Hospital Encounter [facility] [address] ACUTE [facility] [place] [phone] Lamberto Potts MD Cardiovascular Disease Discharge Disposition: Home or Self Care 02/08/2024 3:33 PM COIN MACHINE MECHANIC - 02/08/2024 11:59 PM COIN MACHINE MECHANIC Hospital Encounter [facility] - Cardiac Cnc Service Engineer [address] [place] [address] Laura Sabillon, PAIGE-Lamberto Her MD Discharge Disposition: Home or Self Care 02/08/2024 3:18 PM COIN MACHINE MECHANIC - 02/08/2024 5:36 PM COIN MACHINE MECHANIC Surgery [facility] - Cardiac Cnc Service Engineer [address] [place] [address] Lamberto Potts MD Left Atrial Appendage (COLETTE) Closure 02/08/2024 3:20 PM COIN MACHINE MECHANIC Anesthesia Event [facility] - Cardiac Cnc Service Engineer [address] [place] [address] Tho Coon MD Seales, Lesa R, Anes Asst 02/01/2024 Telephone [facility] - Cardiology [address] [facility], [address] [phone] Lamberto Potts MD Scheduling (Watchman) 01/16/2024 Telephone [facility] - Cardiology [address] [facility], [address] [phone] Sona Prajapati, RN Scheduling 01/10/2024 11:20 AM COIN MACHINE MECHANIC Video Visit [facility] - Cardiology [address] [place] [address], [address] [phone] Lamberto Potts MD Chronic atrial fibrillation (CMS/HCC) ; NICM (nonischemic cardiomyopathy) (HCC); Chronic systolic heart failure (HCC); Tortuous aorta (HCC); Moderate mitral regurgitation; History of deep vein thrombosis; End stage renal disease on dialysis (HCC) 01/05/2024 Travel 01/05/2024 10:30 AM COIN MACHINE MECHANIC Office Visit [facility] - GI [address] [facility], [place] [address] Milo Reveles III, MD McNiell, Allison, PA-C Class 1 obesity with serious comorbidity and body mass index (BMI) of 30.0 to 30.9 in adult, unspecified obesity type (Primary Dx); Hyperlipidemia, unspecified hyperlipidemia type; HFrEF (heart failure with reduced ejection fraction) (HCC); Pre-transplant evaluation for kidney transplant; End stage renal disease on dialysis (HCC); 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, sequela; Cerebrovascular accident (CVA), unspecified mechanism (HCC) 01/01/2024 Travel 01/01/2024 2:50 PM COIN MACHINE MECHANIC Anesthesia Event [facility] - Cardiac Cnc Service Engineer [address] [place], [place] [phone] Scot Villalpando MD Lewis, Jessica E, APRN-KAREY 01/01/2024 1:30 PM COIN MACHINE MECHANIC - 01/01/2024 11:59 PM COIN MACHINE MECHANIC Hospital Encounter [facility] Heart & Vascular [place] [phone] Bahman Ann MD Discharge Disposition: Home or Self Care 01/01/2024 1:30 PM COIN MACHINE MECHANIC - 01/01/2024 2:30 PM COIN MACHINE MECHANIC Surgery [facility] - Cardiac Cnc Service Engineer [address] [place], [place] [phone] Bahman Ann MD CCL DIRECTOR OF SPORTS PERFORMANCE DIAGNOSTIC JAE 01/01/2024 12:55 PM COIN MACHINE MECHANIC - 01/01/2024 4:22 PM COIN MACHINE MECHANIC Hospital Encounter [facility] - Cardiac Cnc Service Engineer [address] [place], [place] [phone] Bahman Ann MD Cardiac Catheterization Discharge Disposition: Home or Self Care 12/29/2023 Telephone [facility] Care [address] [place] [address] [place] [phone] Bahman Ann MD General 12/29/2023 Telephone [facility] [address] [place] [address] [place] [phone] Bahman Ann MD General 12/28/2023 2:45 PM COIN MACHINE MECHANIC - 12/28/2023 11:59 PM COIN MACHINE MECHANIC Hospital Encounter [facility] LAB OP DRAW STATION [address] [place], [place] [phone] Discharge Disposition: Home or Self Care 12/28/2023 Travel 12/28/2023 Telephone [facility] - Family Medicine [address] [place] [address] Federico Branham Jr., MD Medication Issue 12/28/2023 1:45 PM COIN MACHINE MECHANIC - 12/28/2023 2:44 PM COIN MACHINE MECHANIC Hospital Encounter [facility] DIAGNOSTIC RAD [address] [place] [address] Peter Mullen MD Discharge Disposition: Home or Self Care 12/28/2023 1:45 PM COIN MACHINE MECHANIC Office Visit [facility] - ENT [address] [place] [address] Madyson Brito SLP Dysphagia, oropharyngeal (Primary Dx); Pharyngoesophageal dysphagia; S/P cervical spinal fusion; Cerebrovascular accident (CVA), unspecified mechanism (HCC) from Last 3 Months Allergies Active Allergy Reactions Criticality Noted Date Comments Valsartan Other Medium 11/09/2015 Loses her voice Lisinopril Unknown Medium 01/03/2013 Voice changed Propoxyphene Dizziness Medium 04/22/2016 Medications * Be aware that medications may not be up to date on this document. Alwaysverify current medications with the patient. Medication Sig Dispensed Refills Start Date End Date Status montelukast (SINGULAIR) 10 MG tablet Take 1 (one) tablet by mouth at bedtime Reported on 04/22/2016 Active cinacalcet (SENSIPAR) 60 MG tablet Take 1 (one) tablet by mouth every Monday, Monday & Monday Active lanthanum (FOSRENOL) 1000 MG chew tablet CHEW AND SWALLOW 1 TABLET THREE TIMES DAILY WITH MEALS AND 1 TABLET WITH SNACKS 1 Active calcium acetate (PHOSLO) 667 MG capsule Take 1 (one) capsule by mouth 2 times daily, before breakfast and supper 1 Active acetaminophen (Tylenol) 500 MG tablet Take 1 (one) tablet by mouth every 4 hours as needed for Fever or Pain Maximum allowable Acetaminophen amount = 4 Grams (4000 mg) / 24 hours. Active Flovent HFA 220 MCG/ACT inhaler Inhale 2 (two) puffs by mouth 2 times daily 3 Active VITAMIN D PO Take 3,000 Units by mouth once daily Active latanoprost (Xalatan) 0.005 % ophthalmic solution Instill 1 (one) drop into both eyes at bedtime 7.5 mL 11 4 Active levalbuterol (Xopenex) 45 MCG/ACT inhaler Inhale 2 (two) puffs by mouth 2 times daily as needed Using prn 4 Active fluticasone propionate (Flonase) 50 MCG/ACT nasal spray Hooper 2 (two) sprays into each nostril once daily Make sure to shake bottle first 48 g 3 4 Active B Lwjvesq-T-Lejd c Acid (Dialyvite 800) 0.8 MGIndications: End stage renal disease on dialysis (HCC) Take 1 tablet by mouth once daily 100 tablet 4 4 Active artificial tears ophthalmic solution Instill 1 (one) drop into both eyes 3 times daily as needed 4 Active digoxin (Lanoxin) 0.125 MG tablet Take 1 (one) tablet by mouth every & Monday Takes on 4 Active tiZANidine (Zanaflex) 4 MG tablet Take 1 (one) tablet by mouth every 8 hours as needed for Muscle Spasms 90 tablet 1 4 Active midodrine (Proamatine) 5 MG tablet Take 3 (three) tablets by mouth 3 times daily with meals 300 tablet 3 4 Active atorvastatin (Lipitor) 40 MG tablet Take 1 (one) tablet by mouth at bedtime 100 tablet 3 4 Active FLUoxetine (PROzac) 20 MG capsule Take 1 (one) capsule by mouth once daily 100 capsule 3 4 Active Additional Information Patient taking differently: 10 mgOral DAILY, Reason: Provider adjusted, Reported on 02/08/2024 gabapentin (Neurontin) 100 MG capsule Take 1 (one) capsule by mouth 2 times daily 200 capsule 3 4 Active Additional Information Patient taking differently: 200 mgOral 2 TIMES DAILY, Informant: Patient, Reported on 03/19/2024 omeprazole (PriLOSEC) 20 MG capsule Take 1 (one) capsule by mouth 2 times daily 90 capsule 3 4 Active aspirin (Aspirin) 81 MG chew tablet Take 1 (one) tablet by mouth once daily 100 tablet 4 Active clopidogrel (plaVIX) 75 MG tablet Take 1 (one) tablet by mouth once daily 90 tablet 4 Active midodrine (Proamatine) 10 MG tablet Take 1 (one) tablet by mouth 3 times daily before meals Active oseltamivir (Tamiflu) 75 MG capsule Take 1 (one) capsule by mouth 2 times daily for 5 days 10 capsule 5 03/17/19 25 Discontinued oseltamivir (Tamiflu) 30 MG capsuleIndicat ions:Influenza B Take 1 (one) capsule by mouth every Monday, Monday & Monday for 5 days Reasons: Influenza B 3 capsule 5 03/17/19 25 Discontinued azithromycin (Zithromax) 250 MG tablet Take 1 (one) tablet by mouth once daily for 4 days 4 tablet 5 03/22/19 25 Discontinued(Lis t Clean-Up) oseltamivir (Tamiflu) 30 MG capsuleIndicat ions:Influenza A Infection Take 1 (one) capsule by mouth every Monday, Monday & Monday for 5 days Reasons: Influenza A Virus Infection 3 capsule 5 03/23/19 25 Active Problems Problem Noted Date Diagnosed Date Aortic root dilatation 03/22/2024 Paroxysmal atrial fibrillation 02/01/2024 CVA (cerebral vascular accident) 12/22/2023 Assessment & Plan (12/23/2023 9:56 PM CDT): Lipitor Judieis Follow w/ neurology Cord compression 10/05/2023 Osteoporosis 12/29/2022 12/29/2022 Cervical stenosis of spine 12/29/2022 Overview (10/06/2023): In ICU for high- MAP goals with pressor needs Assessment & Plan (12/29/2022 10:02 AM COIN MACHINE MECHANIC): Gabapentin Lidocaine patch See Spine Surgery Pre-transplant evaluation for kidney transplant 12/19/2022 Overview (12/19/2022): Images from the original note were not included. Moy Hauser Leos 1955 Referring Forming Machine Upkeep Mechanic: Jc Moreau Listing Date: Pt was previously listed with us on 12/09/2014 and de-listed in 2019 d/t low BPs, cardiac, high BMI s/p gastric sleeve and mobility Dialysis Info: Type: HD M,W,F Time: 09/23/2009 Blood Type: O NEG Pathology: 12/06/2022 TRANSFUSION MEDICINE SERVICE ANTIBODY EVALUATION ?? Clinical Summary: The patient is a 67 year old woman who presented for urethrocystogram. ?? Laboratory Evaluation: The patient's blood type is O-negative. Her antibody screen is positive. Further testing identified anti-D and anti-C antibodies. All other common, clinically significant antibodies are ruled out. The direct antiglobulin test (BROCK) is negative. The patient's [place] red blood cells are negative for the D-antigen and C- antigens. ?? Assessment: The D and C antigens are members of the [employer] system. The immune response to these antigens is typically IgG and a result from previous exposure such as with transfusion or . Anti-D and anti-C antibodies are clinically significant in respect to their ability to cause hemolytic transfusion reactions. ?? Recommendations: 1. Transfuse as clinically indicated. ?? 2. If the patient requires future transfusion, we will provide group O, crossmatch-compatible units of blood that lack the D and C antigens. Approximately 5% of donors will lack these antigens. ?? CAROLYN Avendano Pathology Resident 12/07/2022 7:49 AM ?? I have reviewed and agree with the resident's interpretation and description of this case. ?? Mendy Mccall MD Attending Physician Department of Pathology Transfusion Medicine Body mass index is 36.11 kg/m??. Pt had gastric sleeve back in 2013. Pt seen Dr. Reveles on 12/08/2022 ALERTS: pt with sickle cell trait Aircraft Navigator: Pt needs to establish care, she has not been on any meds for DM since 2010 ESRD 2/2 DM2 and HTN Past Medical History: Diagnosis Date ? ? Anemia ? ? Anuria 2013 ? ? Arthropathy knee and back ? ? Asthma rescue inhalers ? ? Atrial fibrillation (CMS/HCC) dx'd in 1992, had cardiac ablations in 1992 and 2016, 1st ones at [facility] and 2nd one here at [facility], follows with winding lathe operator Dr. Painting, on eliquis ? ? CHF (congestive heart failure) ([facility]) 08/1996 EF 30-35% (06/03) ? ? Chronic back pain follows with pain management at [facility], gets back injections and takes tylenol if needed, no surgeries ? ? Community acquired pneumonia has had once/twice since started dialysis, would have 3-4 times per year prior to that ? ? COPD (chronic obstructive pulmonary disease) ([facility]) dx'd in 2021, follows with paleologist, was told she no longer has it in 2016, inhalers prn ? ? Coronary artery disease 07/08/2022 non-obstructive disease ? ? Diabetes mellitus ([facility]) dx'd in 2007, was on insulin from 07/2008 - 02/2010, no medicine since then, diet controlled, no waste collector ? ? Diverticulitis of large intestine with perforation no abscess. treated wtih antibx. ? ? DVT (deep venous thrombosis) ([facility]) BLE DVTs, pt was in hospital x 1 week, bed ridden, c/o leg pain, found BLE DVTs ? ? DVT of leg (deep venous thrombosis) ([facility]) 03/20/2013 DVT left leg, superficial right leg ? ? Esophageal reflux ? ? Esophageal stricture has had 2 dilatations, pt states if she does not take her PPIs then her esophagus starts to close up, EGDs completed here at [facility] ? ? ESRD on hemodialysis ([facility]) ? ? Generalized anxiety disorder ? ? Glaucoma ? ? History of blood transfusion ? ? HTN (hypertension) ? ? Hypercholesteremia ? ? Hyperparathyroidism ([facility]) had parathyroiectomy ? ? Hypertension 1988 ? ? Hypotension 2017 pt has been on midorine since then, is now down to 5mg on dialysis days only as of 10/21/2022 ? ? Hypoxemia has worn at home in past, hasn't worn in years ? ? [place] (myocardial infarction) ([facility]) 2003 ? ? Morbid obesity ([facility]) ? ? Neuropathy ? ? Obstructive sleep apnea mild sleep apnea, last sleep study 09/2021 ? ? Peptic ulcer disease ? ? Primary gout 2008 ? ? RA (rheumatoid arthritis) ([facility]) 1994 no meds, no follow with rheumatology ? ? Sickle cell trait (CMS/HCC) ? ? Sleep apnea 02/2002 uses CPAP without O2- compliant most nights ? ? Type 2 diabetes mellitus with hypertension and end stage renal disease on dialysis (CMS/HCC) ? ? Ulcer 2003 ? ? VRE (vancomycin resistant enterococcus) culture positive 02/25/2018 rectal swab+ Past Surgical History: Procedure Laterality Date ? ? A-V FISTULA REVISION/REPAIR 03/15/2013 Left; REVISION OPEN ARTERIOVENOUS FISTULA ? ? ABLATION FOR ATRIAL FIBRILLATION/FLUTTER 05/21/1993 ? ? ABLATION FOR ATRIAL FIBRILLATION/FLUTTER 07/13/2016 ? ? Appendectomy 2014 ? ? BARIATRIC SURGERY, GASTRIC 01/23/2014 gastric sleeve ? ? CARDIAC CATH 08/2003, 2013, 2015, 2022 ? ? Cardiac Catherization N/A 07/08/2022 N/A; Left Heart Cath ? ? Cataract Removal Right 11/05/2020 Right; complex cataract extraction with intraocular lens implant ? ? Cataract Removal Left 11/19/2020 Left; complex cataract extraction with intraocular lens implant ? ? Section x1 ? ? COLONOSCOPY N/A 09/26/2017 N/A; COLONOSCOPY WITH POLYPECTOMY ? ? COLONOSCOPY N/A 10/09/2018 N/A; COLONOSCOPY DIAGNOSTIC ? ? COLONOSCOPY N/A 12/31/2020 N/A; COLONOSCOPY SCREEN ? ? ENDOSCOPY, COLON, DIAGNOSTIC ? ? ENDOSCOPY, UPPER N/A 12/31/2020 N/A; EGD---dialysis pt. STAT BMP!! ? ? Hysterectomy 03/1993 TLH with SBO, d/t fibroids, had at [facility] ? ? IR ANGIO AV SHUNT NON DIRECT ? ? OTHER SURGERY 2010 03 AV fistula, at [facility] ? ? Parathyroidectomy 10/2015 here at [facility] ? ? W[place] PLACEMENT, BILE DUCT STENT bile duct stent ? ? SURGICAL HISTORY OF 09/22/2009 dialysis cath placement in chest ? ? SURGICAL HISTORY OF 11/12/2009 Left Radial Cephalic AV Fistula ? ? TMJ Arthotomy 1988 Transplant Surgery Clinic Appt w/: Date: 12/20/2022 A/P: Nephrology Clinic Appt w/: Date: 12/20/2022 A/P: Other Consults: Cardiology: 12/13/[address] Ann Reason for Visit: Follow-up for history of nonischemic cardiomyopathy ?? Moy Leos is a 67 year old female with relevant past medical history of nonischemic cardiomyopathy, ESRD (hemodialysis via left upper extremity AV fistula MWF), essential hypertension complicated by orthostatic hypotension, nonobstructive coronary artery disease, paroxysmal atrial fibrillation, prior atrial flutter (status post ablation Jun, 2016), dyslipidemia, history of type 2 diabetes mellitus, hypothyroidism, and arthritic pain who presents today for routine cardiac follow-up. I last saw the patient about 5.5 months ago when she underwent cardiac catheterization. Procedure was completed for definitive ischemic evaluation after previously abnormal stress test. Fortunately, cardiac catheterization was unremarkable and stress test was deemed to be false-positive. Since that time the patient has continue to follow with Internal Medicine, Nephrology, and is now also being seen in weight loss clinic and transplant nephrology at [facility]. She is hoping to work towards transplant listing. She has been referred to dermatology for alopecia and rheumatology for possible rheumatoid arthritis in the interim. Those appointments have not occurred yet. Patient also reports concerns about being 5 kg heavier than her dry weight and has had worsening shortness of breath. She has anuric and reports recently being recommended by her lead game designer to be admitted for more aggressive volume removal. She is holding off on this for the time being as she reports need to take her daughter to [place] for postoperative assessment. She also reports cramping in extremities associated dialysis, but is interested in trying coenzyme Q10 to help with this. ?? EKG: Last obtained December 06, 2022 demonstrate normal sinus rhythm, left anterior fascicular block, possible old septal infarct, possible lateral infarct. Abnormal ECG. ?? 2D ECHO: Last obtained December 06, 2022 ?Left??Ventricle: Left ventricle is severely dilated. Mildly increased wall thickness. Mildly reduced systolic function with a visually estimated EF of 45 - 50%. Mild global hypokinesis present. Grade I diastolic dysfunction with normal left atrial pressure appropriate for age. ?Right??Ventricle: Right ventricle size is upper limits of normal. Normal systolic function. ?Left??Atrium: Left atrium is severely dilated. Left atrium volume index is 57.7 mL/m2. ?Mitral??Valve: Valve structure is normal. Moderate annular dilation. Moderately restricted motion of the posterior leaflet. Moderate regurgitation. ?Tricuspid??Valve: Trace regurgitation. The pulmonary artery systolic pressure is borderline elevated. Estimated sPAP is 35.0 mmHg. ?IVC/SVC: IVC diameter is less than or equal to 21 mm and decreases greater than 50% during inspiration; therefore the estimated right atrial pressure is normal (~3 mmHg). ?Pericardium: Trivial pericardial effusion present. ?? Stress test: Nuclear stress test June 16, 2022 1. ??Abnormal myocardial perfusion study with a large area of prior infarct with/without attenuation artifacts as outlined above in the apical and lateral wall. No evidence of reversible myocardial ischemia. Clinical correlation is advised. 2. ??Gated SPECT images reveal mildly reduced ??LV systolic function. ?? Left Heart Catheterization: Completed July 08, 2022 1. No obstructive coronary artery disease 2. False-positive stress Test 3. Underlying nonischemic cardiomyopathy 4. Elevated LVEDP 5. Right femoral artery access obtained under ultrasound guidance and with use of micro puncture kit and modified Seldinger technique ? Assessment/Plan: 1. Nonischemic cardiomyopathy 2. Chronic systolic heart failure - AHA C, NYHA 2, well compensated 3. History of Mild nonobstructive CAD 4. History of essential hypertension complicated by orthostatic hypotension 5. Paroxysmal atrial fibrillation - on digoxin for rate control and Eliquis for AC 6. History of atrial flutter status post ablation Jun, 2016 7. Dyslipidemia - tolerating Crestor at current dose 8. Hypothyroidism - TSH within normal limits 9. Obesity 10. Polypharmacy 11. Alopecia and arthritis ?? -helping facilitate dermatology and rheumatology referrals. Specifically provide the patient with office number of [facility] dermatology, and I also placed referral order to rheumatology at in case very well to see the patient sooner than at [facility]. ?? -the patient I discussed digoxin. Will continue with b.i.d. dosing and plan to obtain updated digoxin level after next office visit if not completed by PCP or nephrology before that time. ?? -regarding worsening dyspnea and weight gain, I encouraged the patient to consider taking nephrology up on hospitalization offer more aggressive volume removal ?? -for today, continue current doses of Lipitor, Eliquis, digoxin as stated above, and midodrine for combined medical management of shins above. Also okay with patient taking coenzyme Q10 ?? -encourage patient update me if there is any further cardiac testing required by transplant listing team so that care can be coordinated ?? Podiatry: 12/12/[address] Rolon - note not signed yet NEUROPATHY PAIN NEW (GENERIC ) cc: Foot Pain ?? HPI: Moy Leos is a 67 year old female here for a diabetic foot check up. Reports of their diabetes being well controlled with her diet. Relates of compliance with doing their leg and ankle exercises that was shown to them during their last ov. Pt complains of bilateral feet pain trino of the lesser digits on bilateral feet. Denies injury but has a hx of diabetic neuroapthy, PVD, and ESRD. Pt states that majority of the pain is mostly in bilateral feet especially the toes. Describes pain as burning, numbness, shooting, sharp, electrical pain. Reports of sensation of gait instability and leg weakness/tiredness. Reports of increase incidents of tripping or frequent falls which she contributed due to her left knee popping and giving out. Admits of swelling of her knee. Relates of seeing a eating disorder specialist but denies of having her knee evaluated and requests a referral to Ortho to evaluate her knee. Admits of doing very little walking and not able to walk far due to severe radicular leg pain. Relates of having pain radiating down her legs, right side worse. Reports of the paresthesia of her feet has also worsen along with leg weakness. Reports that she is not a candidate for back surgery due to her severe cardiac and pulmonary issues. Relates of taking Gabapentin for her neuropathy symptoms. Denies any side effects with medication and has no improvement of her symptoms with use unless she doesn't have dialysis for 2 days then she notices it helps with her symptoms. Admits of having leg and calf cramping but mostly during or after having dialysis, denies of rest pain. PCP is Dr. Branham and last ov was 09/05/2019. Denies any other changes to medical or surgical history since last ov. ?? Complains of severe swelling of her legs and feet. Reports of having fluid retention and had a chest xray, my lungs are full of water . Relates that she was advised to go to the hospital and get admitted. Relates of not being able to get admitted since she is the only caregiver for her daughter who recently had surgery. Reports of SOB/CP which she had on and off all day . Reports of having extra dialysis to help with the extra water. Reports of working on getting back on the [facility] transplant list. Physical Exam: BP 99/62 Pulse 90 Ht 1.588 m (5' 2.5 ) Wt 90.9 kg (200 lb 6.4 oz) SpO2 98% General appearance: alert, cooperative, no distress Ears: canals clear hearing intact to voice Throat: no mucous membrane abnormalities Neck: range of motion is intact, no masses, thyroid not enlarged, no adenopathy Heart: regular rhythm Lungs: breath sounds normal and symmetric to ausculation. ?? Lower Extremity Exam: VASCULAR: Dorsalis Pedis L 2/4 Posterior Tibialis L 0/4 Dorsalis Pedis R 2/4 Posterior Tibialis R 0/4 CONSUMER SERVICES CONSULTANT is than 3 sec ?? Dependant Rubor: neg Hair growth: neg Cap refill of toes: immediate Edema: pos Pitting: +4-5 of bilateral LE. Redness: neg Ecchymosis: neg Warmth: neg ?? Dermatological: Rash: neg Callouses: neg ulcer: neg Xerosis: pos Nails: Normal bilateral 1-5. ?? Neurological: Sensation intact to [place] monofilament all dermatomes: Neg sensation on multiple locations. Vibratory sensation: neg sensation Proprioception: pos Temperature sensation: neg cold sensation Sharp/Dull sensation: neg sensation ?? Musculoskeletal: Area of maximum tenderness: pos edema is noted of the left knee, pos POP and pain during ROM but neg crepitus noted. Pos POP of the entire plantar forefoot sub 1- 5 MTPJs trino sub 2nd MTPJ of bilateral feet. Neg edema, neg calor, neg SOI. Pos hammer toes 2-5 bilateral. Muscle strength is decreased of anterior, medial and lateral muscle groups but equal. Neg tinels with percussion of the tibial nerve and compression of the tarsal tunnel. Decreased AJ DF during ROM with legs extended and flexed indicating a gastro-soleus equinus. ?? WEIGHTBEARING EXAM: Patient observed standing and during gait. Decreased medial arches with pos hammer toes. Double and single heel lift could not be done due to instability and pain. 04/16/2021 Lumbar spine MRI: Multilevel degenerative joint disc disease noted. This is most significant at L2-L3 and L3-L4. Surgical consultation is recommended if not already obtained. ?? 08/12/2021 Lumbar spine xray: Views of lumbosacral spine show normal vertebral heights. There is interspace height loss at multiple levels. There is endplate degenerative change present at L2 inferiorly in L3 superiorly appearing worse than 11/01/2020. Osteophytes are present on vertebral bodies. ??Slight anterolisthesis of L5 on S1 is present. ??There is sclerosis in the posterior elements. ??Pedicles are intact. ??There is scoliosis concave to the right. ?? 05/22/2020 left knee xray: No fracture or dislocation is present. There is mild medial compartment joint space narrowing with minimal osteophyte formation. The lateral compartment joint space is normal. No effusion is seen. A few soft tissue calcifications are likely vascular. ? ASSESSMENT: Encounter Diagnoses Name Primary? ? ? Bilateral lower extremity edema Yes ? ? Diabetic polyneuropathy associated with type 2 diabetes mellitus (CMS/HCC) ? PLAN: No orders of the defined types were placed in this encounter. - A comprehensive diabetic foot exam was performed today on bare feet including visual inspection, monofilament, and assessment of pulses. - Went over 2021 back MRI and lower back x-rays, and 2020 left knee x-ray with the patient. - Pt was informed that her severe spinal stenosis is causing myeopathic symptoms resulting in her leg weakness and increased istability. - Pt was informed that due to her ESRD and dialysis she will need to talk to her lead game designer about pain medication. - Pt was informed that the gabapentin starts to help due to the medication it builds up enough in her system to help with her symptoms when she does not have dialysis for 2 days in a row. Pt was advised to follow-up with her lead game designer about increasing her gabapentin dosage to help with her leg pain. - Also recommend she follows up with pain management to help with her pain level - Referral to ortho was given for evaluation treatment of her knee due to patient's request. -Pt was informed of importance of inspecting the feet daily and never going without shoes on to prevent future problems or complications due to the neuropathy. - Diet counseling was done and discussion of how excess weight affects the feet and lower back. - Ankle strengthening and stretching exercises were given and shown. It was stressed the importance of doing the exercises shown to have termite control service representative effects. - Pt was informed of the importance of exercising due to her myelopathy and neuropathy to help with maintaining LE muscle strength and balance due to the nerve damage causing significant muscle atrophy resulting in her gait instability and imbalance. - Discussion on appropriate exercises for her condition and recommended water aerobics to help with weight loss and maintaining muscle strength. - Pt will FU as needed. ?? Dr. Reveles: 12/08/2022 Attestation signed by Milo Reveles III, MD at 12/08/2022 ??4:40 PM I have verified the documentation of the medical student including all history, exam, and medical decision-making details. I have personally performed a physical exam and have personally reviewed the data to support my medical decision-making as outlined in the medical student's note, and I arrive independently at the same conclusion. In addition I note: ?? 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 No intervention at this time. -wean gabapentin (obesogenic) as below which may promote WL -f/u in 4 months with Thais Euceda, Obesity Medicine Specialist and my collaborating CHENG, for re-evaluation and weight check ?? #T2DM -on statin -recent hbA1c WNL ?? #ESRD on HD -seeking transplant ?? #RA, not on medications any longer #chronic pain syndrome #OA, left knee -getting steroid injections -voltaren gel prn -refer to rheumatology -states gabapentin helps for back pain -take 2 tabs in the morning and 1 tab in the evening for 7 days, then take 1 tab in the morning and 1 tab in the evening for 7 days, then take just 1 tab in the evening for 7 days, then STOP -refer to PT ?? #neuropathy -on gabapentin 200 bid (obesogenic) still but states that neuropathy has been improved -taper as above ?? #LENORA, on cpap ?? #HFbEF ?? F CHRISTINE REVELES III, MD Date of Service: 12/08/2022 Pulmonary: Sleep study: 12/13/2021 PFTs: 2020 GI- Dr. Keya Reina: 11/17/16 Assessment and Plan 1. Dysphagia, Schatzki's ring dilated 10/21/16, although not complete relief, pt satisfied with results for now. 2. Hx esophagitis, grade D Oct 2015 and small hiatal hernia, healed on recent egd 3. Hx gastric bypass for obesity and pud 4. Chronic constipation doing well on miralax and dulcolax as needed 5. Colon cancer screening followed by lawn specialist at [place], [place], noted to have 3 polyps 12/2014 (tubular adenoma, tubulovillous adenoma and hyperplastic) - see pre-txp overview on problem list => repeat colonoscopy due 2017 6. Co-morbidities: htn, dm-2, hld, cad, a fib, chf, ESRD on HD, copd, depression, asthma, arthritis, gout, hypothyroidism, lenora on cpap, hx PE and DVT ?? Pertinent Previous Committee Presentations: PSC note: 06/14/2018 Transplant Eligibility: Diabetic Nephropathy, Hypertensive Nephrosclerosis ?? Committee Review Decision: Remove ?? Relative Contraindications: Sleep apnea with CPAP non-compliance or BMI > 35, Non-compliance with medical treatment plans, multiple medical co-morbidities ?? Committee Discussion Details: Discussed pt's multiple medical health issues. Also discussed the following concerns: 1) Use of Midodrine 10mg TID for BP support 2) Weight gain and current BMI of 37.4 despite gastric sleeve 3) Pt's non-compliance with CPAP due to packing away a part of her machine during home renovation 4) Use of eliquis for A-fib 5) High phos in the past and calciphylaxis in past and possibly on leg at current time 6) Compliance with medication or health recommendations It was ultimately determined that pt should be removed from the transplant list as she is no longer a candidate for transplant at our center due to her multiple medical co-morbidities (and compliance concerns). Pt is not a candidate for txp in the future at our center as well. Pt removed from txp list. ? Labs: 12/06/2022 PTH: >5000 (parathyoidectomy with implant) A1c: 5.5 Glucose: 85 GFR: 4 Serologies: +HepAAb, +HepBsAb, all others negative CMV Igg: Positive EBV Igg: Positive Varicella: Immune MMR: Immune Toxo: <3.0 Strongyloides: 0.5 Albumin: 3.8 Tox Screen: All negative PRA: Class 1 Class 2: 17, 5 Ca+: 10.5 Phos: 6.3 Oxalate: 47 C-peptide: 18.8 Latest Reference Range & Units 12/06/22 13:41 Homocysteine 4.4 - 16.2 umol/L 20.8 (H) Latest Reference Range & Units 12/06/22 13:41 AT III Activity 80.0 - 120.0 % 107.0 Protein C Activity 83 - 168 % 131 Protein C Antigen Total 63 - 153 % >95 Protein S Antigen Total 63 - 126 % 153 (H) Cardiolipin Antibody IgG <=14 GPL <10 Cardiolipin Antibody IgM <=12 MPL <10 Beta-2 Glycoprotein Antibody IgG <=20 SGU <10 Beta-2 Glycoprotein Antibody IgM <=20 SMU <10 Factor V Leiden PCR/FRET Negative Factor V Leiden Source Whole Blood dRVVT 33 - 44 sec 66 (H) dRVVT 1:1 Mix 33 - 44 sec 52 (H) dRVVT Confirmatory Test Negative ratio Positive ! PROTHROMBIN [id number] PANEL Rpt Prothrombin [id number] Negative Source PT [id number] PCR Whole Blood Latest Reference Range & Units 12/06/22 13:41 Hemoglobin A 97.0 - 98.2 % 97.7 Hemoglobin A2 1.8 - 3.0 % 2.3 Hemoglobin Other Not Detected % 0.0 Interpretation Hemoglobin Pattern Normal Pattern Normal Pattern Parathyroidectomy: 11/10/2015 PROCEDURES: 1. Parathyroidectomy. 2. Autotransplantation of parathyroid tissue into the right forearm. 3. Recurrent laryngeal nerve monitoring CLINICAL HISTORY: ??Hyperparathyroidism. OPERATIVE PROCEDURE: ??Parathyroidectomy with monitoring with reimplantation. FINAL DIAGNOSIS: RIGHT SUPERIOR PARATHYROID F/S , EXCISION (A): ? - HYPERPLASTIC PARATHYROID RIGHT INFERIOR PARATHYROID , EXCISION (B): ? - HYPERPLASTIC PARATHYROID LEFT SUPERIOR PARATHYROID F/S , EXCISION (C): ? - HYPERPLASTIC PARATHYROID LEFT INFERIOR PARATHYROID , EXCISION (D): ? - HYPERPLASTIC PARATHYROID Kidney Biopsy: none EK12/06/2022 Echo: 12/06/2022 Interpretation Summary ? Left??Ventricle: Left ventricle is severely dilated. Mildly increased wall thickness. Mildly reduced systolic function with a visually estimated EF of 45 - 50%. Mild global hypokinesis present. Grade I diastolic dysfunction with normal left atrial pressure appropriate for age. ? ? Right??Ventricle: Right ventricle size is upper limits of normal. Normal systolic function. ? ? Left??Atrium: Left atrium is severely dilated. Left atrium volume index is 57.7 mL/m2. ? ? Mitral??Valve: Valve structure is normal. Moderate annular dilation. Moderately restricted motion of the posterior leaflet. Moderate regurgitation. ? ? Tricuspid??Valve: Trace regurgitation. The pulmonary artery systolic pressure is borderline elevated. Estimated sPAP is 35.0 mmHg. ? ? IVC/SVC: IVC diameter is less than or equal to 21 mm and decreases greater than 50% during inspiration; therefore the estimated right atrial pressure is normal (~3 mmHg). ? ? Pericardium: Trivial pericardial effusion present. ?? Prior Study No prior study available for comparison. Myocardial Findings Left Ventricle Left ventricle is severely dilated. Mildly increased wall thickness. Mildly reduced systolic function with a visually estimated EF of 45 - 50%. Mild global hypokinesis present. Grade I diastolic dysfunction with normal left atrial pressure appropriate for age. Right Ventricle Right ventricle size is upper limits of normal. Normal systolic function. Left Atrium Left atrium is severely dilated. Left atrium volume index is 57.7 mL/m2. Right Atrium Right atrium size is normal. IVC/SVC IVC diameter is less than or equal to 21 mm and decreases greater than 50% during inspiration; therefore the estimated right atrial pressure is normal (~3 mmHg). Mitral Valve Valve structure is normal. Moderate annular dilation. Moderately restricted motion of the posterior leaflet. Moderate regurgitation. No stenosis. Tricuspid Valve Valve structure is normal. No restricted motion. Trace regurgitation. The pulmonary artery systolic pressure is borderline elevated. Estimated sPAP is 35.0 mmHg. No stenosis. Aortic Valve Valve structure is trileaflet. No restricted motion. No regurgitation. No stenosis. Pulmonic Valve Valve structure is normal. No restricted motion. No regurgitation. No stenosis. Aorta Normal sized sinus of Valsalva (aortic root) and ascending aorta. Pericardium Trivial pericardial effusion present. Dimensions Left Ventricle LV biplane EF 51 % ??(Range: 54 - 74) LV A2C EF 53 % ??(Range: 52 - 76) LV A4C EF 50 % ??(Range: 46 - 78) LVIDd 5.09 cm ??(Range: 3.8 - 5.2) LV LVIDd index 2.64 cm/m2 ??(Range: 2.3 - 3.1) LVIDs 3.26 cm ??(Range: 2.2 - 3.5) LVIDs index 1.69 cm/m2 ??(Range: 1.3 - 2.1) LV EDV BP 194.144 mL ??(Range: 46 - 106) LV EDV index BP 100.6 mL/m2 ??(Range: 29 - 61) LV EDV A2C 218.514 mL ??(Range: 41 - 133) LV EDV index A2C 113.2 mL/m2 ??(Range: 26 - 74) LV EDV A4C 165.502 mL LV EDV index A4C 85.74 mL/m2 ??(Range: 30 - 82) LV EDV 2D 123.037 mL ??(Range: 46 - 106) LV EDV index 2D 63.74 mL/m2 ??(Range: 29 - 61) LV ESV BP 95.866 mL ??(Range: 14 - 42) LV ESV index BP 49.7 mL/m2 ??(Range: 8 - 24) LV ESV A2C 83.554 mL ??(Range: 10 - 54) LV ESV index A2C 43.28 mL/m2 ??(Range: 6 - 30) LV ESV A4C 103.646 mL ??(Range: 12 - 60) LV ESV index A4C 53.69 mL/m2 ??(Range: 7 - 35) LV ESV 2D 42.913 mL ??(Range: 14 - 42) LV ESV index 2D 22.23 mL/m2 ??(Range: 8 - 24) LVPWd 1.27 cm ??(Range: 0.6 - 0.9) Fractional Shortening 2D 36 % ??(Range: 28 - 44) LV RWT 0.501 LV mass 2D 283.3906 g ??(Range: 66 - 150) LV mass index 2D 146.81 g/m2 ??(Range: 44 - 88) LV Alcazar A2C 8.817 cm LV Alcazar A4C 8.453 cm IVSd 2D 1.283 cm ??(Range: 0.6 - 0.9) IVS/LVPW 1.007 Left Atrium LA vol BP 111.432 mL LA vol BP A-L 117.878 mL LA size 5.316 cm ??(Range: 2.7 - 3.8) LA vol index 57.7 mL/m2 ??(Range: 16 - 34) LA ESV INDEX (BP) 57.73 ml/m2 LA ESV A2C MOD Index 69 ml/m2 LA ESV A4C MOD Index 48 ml/m2 Aortic Root - End Diastolic Ascending aorta 3.32 cm Right Ventricle/Right Atrium RV-alcazar basal diam 4.1 cm ??(Range: 2.5 - 4.1) RV-alcazar longitudinal diam 7.6 cm ??(Range: 5.9 - 8.3) RVIDd 4.3 cm RA area 13.45 cm2 Inferior Vena Cava IVC size 1.6 cm Aortic Valve Structure LVOT diam 2 cm LVOT area 3.21 cm2 Stenosis AV mn grad 5 mmHg AV pk grad 8 mmHg AV mn maryam 1.1 m/s AV pk maryam 1.39 m/s AV VTI 31.018 cm LVOT mn grad 1.9 mmHg LVOT pk grad 3.919 mmHg LVOT VTI 22.482 cm LVOT mn maryam 0.63 m/s LVOT pk maryam 0.99 m/s AV area cont VTI 2.3 cm2 AV area pk maryam 2.3 cm2 AV Doppler maryam index pk maryam 0.711 LVOT stroke vol 72.1 mL LVOT stroke vol index 37.35 mL/m2 LV stroke vol BP 98.3 mL LV stroke vol BP index 50.9 mL/m2 LV stroke vol 2D teich 80.124 ml LV stroke vol index A4C MOD 81.948 ml/m2 LV Stroke Index 2D Teich 41.51 mL/m2 Dimensionless Index 0.725 Mitral Valve Regurgitation MR VTI 160.061 cm MV pk maryam regurg 484.376 cm/s Stenosis IVSd 2D 1.283 cm ??(Range: 0.6 - 0.9) MV A pk maryam 128.957 cm/s MV E A ratio 0.86 LVOT VTI 22.482 cm MV decel slope 797.359 cm/s2 Tricuspid Valve Structure TV annulus 4.09 cm Regurgitation TR VTI 94.7 cm TR pk maryam 283.2 cm/s sPAP 35 mmHg TR pk grad 32 mmHg Pulmonic Valve Structure PV area cont eq 9.6 cm2 Stenosis PV mn grad 1 mmHg PV pk maryam 61.779 cm/s PV pk grad 2 mmHg PV VTI 9.773 cm RVOT VTI 13.132 cm RVOT mn grad 1 mmHg RVOT pk grad 2 mmHg RVOT diam Doppler 3.01 cm PV mn maryam 37.215 cm/s RVOT pk maryam 0.78 m/s RVOT area Doppler 7.12 cm2 Pulmonary Atery sPAP 35 mmHg Diastolic Filling MV E pk maryam 111.047 cm/s MV A pk maryam 128.957 cm/s MV E A ratio 0.86 MV E' lateral maryam 8.409 cm/s MV E' septal maryam 7.23 cm/s MV E/e' septal 15.36 MV E/e' lateral 13.206 MV AVG E/E' 14.283 MV AVG E/E' 14.283 MV DT 139 ms MV A duration 91 ms LA vol index 57.7 mL/m2 ??(Range: 16 - 34) LA vol BP 111.432 mL Septal Defects LVOT stroke vol 72.1 mL Qp:Qs 1.3 LVOT stroke vol index 37.35 mL/m2 RVOT stroke vol 93.42 cm3 Output LVOT pk maryam 0.99 m/s LVOT Cardiac Output 5.875 l/min LVOT mn grad 1.9 mmHg LVOT Cardiac Index 3.04 l/min/m2 RV Function TAPSE 2.465 cm ??(Range: 1.7) ECHO: 12/16/2021 Exam Details Procedure Ordered: ECHOCARDIOGRAM 2D W/DOPPLER Procedure Components: Complete 2D, M-mode, complete spectral Doppler, color Doppler Procedure Status: Routine study Facility Location: [facility] Indication: HFrEF Procedure Friend Of The Court: [id number] Mott,RDCS,RVT Ordering Provider: Bahman Ann MD Reading Physician: YURI FREED MD Conclusions Left Ventricle: ? ? Left ventricle is normal in size. ? ? Mildly reduced systolic left ventricular function. ? ? EF 50 %. ? ? Left ventricle wall thickness is mildly increased. ? ? There is mild global hypokinesis. ? ? Doppler parameters are consistent with abnormal left ventricular relaxation (Grade 1 diastolic dysfunction). Left Atrium: ? ? The left atrium is moderately dilated. Tricuspid Valve Measurements ? ? RVSP: 34 mmHg. Findings Left Ventricle: Left ventricle is normal in size. Mildly reduced systolic left ventricular function. EF evaluated by biplane method of disks. EF 50 %. Left ventricle wall thickness is mildly increased. There is mild global hypokinesis. Doppler parameters are consistent with abnormal left ventricular relaxation (Grade 1 diastolic dysfunction). Right Ventricle: Normal size right ventricle. Right ventricular wall thickness is normal. Right ventricular systolic function is normal. Pulmonary artery pressure normal. Left Atrium: The left atrium is moderately dilated. Right Atrium: The right atrium is normal in size. Mitral Valve: Mitral leaflets exhibit normal cuspal separation. No mitral regurgitation. No mitral valve stenosis. Aortic Valve: Aortic leaflets exhibit normal cuspal separation. No aortic valve regurgitation. There is no aortic stenosis. The aortic valve is trileaflet. Tricuspid Valve: Tricuspid valve leaflets are normal. Mild tricuspid regurgitation. No tricuspid valve stenosis. Pulmonic Valve: Pulmonic leaflets exhibit normal cuspal separation. No pulmonic valve regurgitation is evident. There is no pulmonic valve stenosis. Aorta: The aorta is normal. No dilation of the ascending aorta. The aortic root exhibits normal size. Great Vessels: IVC: The inferior vena cava is normal in size and course. Pericardium: The pericardium is normal in appearance. No pericardial effusion. Measurements Anatomy Label Value Normal Value Aorta AoAsc 3.6 cm Aorta AoRoot, 2D 3.3 cm (1.4cm - 2.6cm) Aortic Valve AV Vmean 1.13 m/s Aortic Valve AV VTI 28.56 cm Aortic Valve AV PGmax 13 mmHg Aortic Valve AV PGmean 6 mmHg Aortic Valve AV Vmax, Curve 1.78 m/s (1m/s - 1.7m/s) Aortic Valve LVOT VTI / AV VTI 0.63 Aortic Valve SAIMA D (continuity eq. VTI) 2 cm?? Aortic Valve SAIMA Index (continuity eq.Vmax) 0.97 cm??/m?? Patient: MOY LEOS Study Date: 12/16/2021 09:39 AM Page 3 of 4 Aortic Valve AV Opening, 2D 1.3 cm Aortic Valve LVOT Vmax / AV Vmax 0.62 Interventricular septum IVSd, 2D 1.1 cm (0.6cm - 1.1cm) Left Atrium LADs, 2D 4.3 cm (2.7cm - 3.8cm) Left Atrium LA Area s, A4C 22.9 cm?? (0cm?? - 20cm??) Left Atrium LA Area s, A2C 23.4 cm?? (0cm?? - 20cm??) Left Atrium LAESV, MOD4 84 ml (22ml - 52ml) Left Atrium LAESV, MOD2 78 ml (22ml - 52ml) Left Atrium LAESV index, MOD4 43.1 ml/m?? Left Atrium LAESV index, MOD2 40 ml/m?? Left Atrium LAESV index, AL4 49.7 ml/m?? Left Atrium LAESV index, AL2 45.6 ml/m?? Left Ventricle LVOT Vmax 1.1 m/s (0.7m/s - 1.1m/s) Left Ventricle LVOTd 2 cm (1.8cm - 2cm) Left Ventricle LVOT VTI 17.96 cm (18cm - 22cm) Left Ventricle LVOT PGmax 5 mmHg Left Ventricle LVEF visual 50 % (55% - 75%) Left Ventricle LVDd, 2D 4.8 cm (3.7cm - 5.2cm) Left Ventricle LVDs, 2D 3.5 cm (2.2cm - 3.5cm) Left Ventricle LVPWd, 2D 1 cm (0.6cm - 0.9cm) Left Ventricle FS, 2D 27.08 % Left Ventricle LVEDV, BP 68 ml (56ml - 104ml) Left Ventricle LVESV, BP 32 ml (19ml - 49ml) Left Ventricle LVEDV Index, BP 34.9 ml/m?? (35ml/m?? - 75ml/m??) Left Ventricle LVESV Index, BP 16.4 ml/m?? (12ml/m?? - 30ml/m??) Left Ventricle LVOT PGmean 2 mmHg Left Ventricle LVOT Vmean 0.67 m/s Left Ventricle Diastolic Function MV E Vmax 0.61 m/s Left Ventricle Diastolic Function MV A Vmax 1.05 m/s Left Ventricle Diastolic Function MV E/A 0.58 Left Ventricle Diastolic Function MV DT 182 ms Left Ventricle Diastolic Function MV E' septal 0.03 m/s Left Ventricle Diastolic Function MV E' lateral 0.07 m/s Left Ventricle Diastolic Function MV E/E' mean 12.2 Left Ventricle Diastolic Function MV E' mean 0.05 m/s Mitral Valve MV Vmax 0.93 m/s Mitral Valve MV Vmean 0.54 m/s Mitral Valve MV VTI 19.48 cm Mitral Valve MVA D (continuity eq.) 3 cm?? Mitral Valve MV PGmax 3 mmHg Mitral Valve MV PGmean 1 mmHg Mitral Valve MVA PHT 3.1 cm?? Patient: MOY LEOS Study Date: 12/16/2021 09:39 AM Page 4 of 4 Mitral Valve MV PHT 70 ms Mitral Valve MV Dec [place] 3.36 m/s?? Right Ventricle Diastolic Function TR Pmax 29 mmHg Right Ventricle Diastolic Function PV AT 78 ms Tricuspid Valve RVSP 34 mmHg Tricuspid Valve RA Pressure 5 mmHg Tricuspid Valve TR Vmax 2.7 m/s [facility] [place] Reason for Study: CAD- non obstructive, Chest pain History / Clinical: Hypertension, Obesity, Atrial fibrillation, Congestive heart failure, COPD, History of DVT, Hyperlipidemia, ESRD on dialysis, Diabetes Procedures: Lexiscan Perfusion Scan, Gated Stress ?? ++++++++++++++++++++++++++++++++++++ SUMMARY: ++++++++++++++++++++++++++++++++++++ FINDINGS: Myocardial perfusion imaging reveals a large sized area of moderate to severely decreased activity in the apical and lateral wall which is fixed between both imaging sets and is consistent with prior infarct and/or attenuation artifacts (soft-tissue, diaphragmatic, and gut).. The remaining hollis demonstrate normal perfusion. LV cavity size appears enlarged in both imaging sets. Gated SPECT myocardial imaging reveals mildly reduced LV systolic function with a calculated ejection fraction of 43%. SUMMARY: 1. Abnormal myocardial perfusion study with a large area of prior infarct with/without attenuation artifacts as outlined above in the apical and lateral wall. No evidence of reversible myocardial ischemia. Clinical correlation is advised. 2. Gated SPECT images reveal mildly reduced LV systolic function. ? [facility]: 07/08/2022 Conclusion 1. No obstructive coronary artery disease 2. False-positive stress Test 3. Underlying nonischemic cardiomyopathy 4. Elevated LVEDP 5. Right femoral artery access obtained under ultrasound guidance and with use of micro puncture kit and modified Seldinger technique ?? Recommendations - 1. Manual pull of femoral artery access with subsequent 3 hours bed rest before discharge 2. Resume Eliquis tomorrow, continue all other medications as currently prescribed 3. Continue with plans for hemodialysis tomorrow 4. Cardiac catheterization results and post catheterization safety instructions reviewed with patient in detail. All questions answered Coronary Findings Diagnostic Dominance: Co-dominant Left Anterior Descending The vessel is moderate to large in size. The vessel is mildly tortuous. Left Circumflex The vessel is moderate in size. The vessel is mildly tortuous. Right Coronary Artery The vessel is small to moderate in size. The vessel is mildly tortuous. Intervention No interventions have been documented. Left Heart Findings Left Ventricle LV end diastolic pressure is elevated. Pressures Systolic (mmHg) Diastolic (mmHg) Mean (mmHg) A Wave (mmHg) V Wave (mmHg) EDP (mmHg) HR (bpm) AO Pressures 110 50 74 73 118 57 82 81 LV Pressures 124 9 0 26 79 122 11 0 27 80 126 7 0 34 95 Oxygen Saturation Ranges RA: (Target range 65-75%) RV: (Target range 65-75%) PA: (Target range 65-75%) PW: (Target range 97-100%) IVC: (Target range 65-75%) SVC: (Target range 65-75%) RFA: (Target range 90-100%) ?? Male Total Hemoglobin Range 12.0-17.6 g/dL Female Total Hemoglobin Range 12.0-15.6 g/dL CXR: 12/06/2022 FINDINGS/IMPRESSION: There is no focal consolidation, pleural effusion, or pneumothorax. The cardiac silhouette is normal. The mediastinal silhouette is normal. The visible bony thorax is intact. There is eventration of the right hemidiaphragm. ?? CT abd/pelvis non-contrast: 12/06/2022 COMPARISON: CT abdomen and pelvis without contrast 05/08/2020. FINDINGS: Chest: Small calcified nodules/granulomas with linear and dependent atelectasis at the lung bases. Mild nodular thickening with calcification of the left lower pleural surface. Elevated right diaphragm, unchanged from prior. ?? Hepatobiliary: A couple of hypoattenuated lesions within the liver, the largest one in the segment 7, measuring up to 1.3 cm, grossly unchanged from the prior. The hepatic length measures up to 17 cm. The gallbladder is surgically absent. No biliary dilation is seen. ?? Pancreas: Normal without peripancreatic fluid collection. ?? Spleen: Normal in size and attenuation. ?? Adrenal glands: No mass is seen. ?? : The kidneys are atrophic. Multiple small sized simple cysts in both kidneys. No definite renal calculus is identified. Urinary bladder is empty and contrast material is seen.. ?? GI: There is no obstruction or abnormal bowel wall thickening. Large hiatal hernia. Surgical materials along the greater curvature of the stomach. The left colon predominant, multiple colonic diverticulosis without diverticulitis. Contrast materials in the appendix and mostly in the left colonic diverticula. Diffuse mural thickening of the distal rectal wall. ?? Vascular: The aorta and inferior vena cava are normal for non-contrast technique. Mild to moderate atherosclerotic calcifications of the abdominal aorta and branch vessels. No significant calcification of the external iliac arteries. ?? Other: There is no free air or abnormal fluid collection. No lymph node enlargement is seen. ?? Bones: Moderate to advanced degenerative changes with Schmorl's nodules of the spine. Mild retrolisthesis of L2 on L3 and L5 on L4. Sacralization of L5. There is osteonecrosis of the femoral heads. ? IMPRESSION: 1.Diffuse mural thickening of the distal rectal wall, unchanged from prior. 2.Bilateral atrophic kidneys. 3.No significant calcification of the external iliac arteries. Renal US: LE arterial doppler: 12/06/2022 LE venous doppler: 12/06/2022 (sent epic message to Dr. García in regards to read) [facility]12/06/2022 FLUOROSCOPY DOSE: 47 mGy Reference air kerma (ka,r). ?? A formal dose report is available in the EMR/PACS system ?? TECHNIQUE AND FINDINGS: ?? A Hoover catheter was placed under sterile conditions by nursing staff. The bladder was filled with approximately 100 cc Cystografin by gravity. The patient was unable to retain contrast within the bladder; voiding occurred around the catheter. Limited fluoroscopic images show normal bladder contour. No filling defect is evident. Overhead images obtained by the technologist show that the bladder is completely empty. No vesicoureteral reflux is evident. ? IMPRESSION: Small capacity bladder. Limited imaging performed due to spontaneous bladder contraction, emptying the bladder. No postvoid residual or vesicoureteral reflux. PPD: 12/06/2022 quant gold negative Colonoscopy: 12/31/2020 Findings: ?Hemorrhoids were found on perianal exam. ?Five small sessile polyps were found in the rectum, sigmoid colon, ?descending colon and cecum. The polyps were 2 to 3 mm in size. These ?polyps were removed with a jumbo cold forceps. Resection and retrieval ?were complete. ?No mass or large polyps seen. ?Multiple medium-mouthed diverticula were found in the sigmoid colon, ?descending colon and transverse colon. There was no evidence of ?diverticular bleeding. ?Internal hemorrhoids were found during retroflexion. The hemorrhoids ?were large. ? Estimated Blood Loss: ? Estimated blood loss was minimal. Complications: ?No immediate complications. Impression: ? - Hemorrhoids found on perianal exam. ? - Five 2 to 3 mm polyps in the rectum, in the ? sigmoid colon, in the descending colon and in the ? cecum, removed with a cold snare. Resected and ? retrieved. ? - Diverticulosis in the sigmoid colon, in the ? descending colon and in the transverse colon. There ? was no evidence of diverticular bleeding. ? - Internal hemorrhoids. Recommendation: ? - Resume previous diet. ? - Resume Eliquis (apixaban) at prior dose tomorrow. ? - Await pathology results. ? - Repeat colonoscopy in 5 years for surveillance. ? - Return to referring physician as previously ? scheduled. ? - Continue present medications. Pathology: 12/31/2020 Final Diagnosis Large intestine, colon polyps x5, biopsy (A): - Hyperplastic polyps EGD: 12/31/2020 Findings: ?A 4 cm hiatal hernia was present. ?A non-obstructing Schatzki ring was found at the gastroesophageal ?junction. A guidewire was placed and the scope was withdrawn. Dilation ?was performed with a Savary dilator with mild resistance at 57 Fr. ?Esophagogastric landmarks were identified: the Z-line was found at 35 ?cm, the gastroesophageal junction was found at 35 cm and the site of ?hiatal narrowing was found at 39 cm from the incisors. ?There is??no endoscopic evidence of Bryson's esophagus or esophagitis in ?the distal esophagus. ?The entire examined stomach was normal. ?The examined duodenum was normal. ?The cardia and gastric fundus were normal on retroflexion. ? Estimated Blood Loss: ? Estimated blood loss: none. Complications: ?No immediate complications. Impression: ? - 4 cm hiatal hernia. ? - Non-obstructing Schatzki ring. Dilated. ? - Esophagogastric landmarks identified. ? - Normal stomach. ? - Normal examined duodenum. ? - No specimens collected. Recommendation: ? - Resume previous diet. ? - Continue present medications. ? - Observe response to dilatation ? - Return to referring physician as previously ? scheduled. ? - Resume [Medication] at prior dose tomorrow. Mammo: 10/03/2021 - needs to get UTD Pap: pt needs UTD well women visit [facility]/Dental: 12/06/2022 FINDINGS: Multiple dental restorations are identified, and numerous teeth are absent. No acute mandibular fracture is identified. Both temporomandibular joints are intact. No periapical abscess is present. There are multiple dental caries. ?? IMPRESSION: No evidence of periapical abscess. SW: 12/20/2022 - note pending HAND II BLOCKER forms: still need RD: 12/20/2022 - note pending Items Still Pending: RD/SW consult notes - still pending, dental - cavities, CXR - eventration R hemidiaphragm, CT a/p - lg hiatal hernia/mural thickening distal rectal wall/ostepnecrosis femoral heads, venous doppler - ? Chronic DVT RLE, ? Moderate mitral regurgitation 11/10/2021 Assessment & Plan (12/23/2023 9:56 PM CDT): Continue to follow w/ cardiology Midodrine Assessment & Plan (11/10/2021 9:45 PM CDT): Defer to cardiology Chronic systolic heart failure 10/20/2020 Overview (11/08/2021): 05/10/2021 Dr. Carrol MORALES 7.15.2020 Jory Freedman, RECRUITER SPECIALIST-HYDRAULIC PILE HAMMER OPERATOR Cardiology Assessment & Plan (12/23/2023 9:56 PM CDT): Stable, doing well, improving BP Assessment & Plan (09/16/2022 7:51 PM CDT): Stable, doing well, improving BP Assessment & Plan (11/10/2021 9:44 PM CDT): Monitor, compensated Assessment & Plan (11/02/2020 1:39 AM CDT): History of CHF with previous admissions for fluid overload. Current BNP WNL, clinically euvolemic. Plan: -fluid status per nephrology Tortuous aorta 10/20/2020 Overview (11/08/2021): 05/10/2021 OV, Dr. Branham 3.29.19 CXR Cardiac chambers are enlarged. The aorta is tortuous Assessment & Plan (09/16/2022 7:50 PM CDT): Incidental finding on CXR Chronic hypotension 10/19/2020 Assessment & Plan (12/23/2023 9:56 PM CDT): Controlled today, took midodrine, Asymptomatic Assessment & Plan (06/21/2023 12:25 PM CDT): Controlled today, took midodrine, Asymptomatic Assessment & Plan (12/29/2022 9:58 AM COIN MACHINE MECHANIC): Stable - Continue Midodrine 10mg TID Assessment & Plan (09/16/2022 7:51 PM CDT): Doing well, last took midodrine 2 days prior to visit - Ok w/ stopping midodrine, but will defer to Dr. Moreau Assessment & Plan (11/02/2020 1:27 AM CDT): Low blood pressures chronically over the last several months, on midodrine 20mg TID at home. Missed a dose in the ED, BP dropped to 77/44. Reports consistently very low BP during dialysis. Was on florinef, stopped for unknown reasons. Plan: - continue home midodrine - continuous telemetry Anxiety 05/11/2020 Assessment & Plan (06/21/2023 12:26 PM CDT): Controlled - Continue Prozac for now, wean if Cymbalta effective for neuropathy - Extensive discussion of risks and benefits occurred. Pt aware of risk of not reducing Prozac at this time. Assessment & Plan (05/11/2020 9:02 PM CDT): Surrounding dialysis, but likely 2/2 increased stress in life. - Increase Prozac to 40mg QD - Add 10mg Propranolol 30-60 minutes prior to dialysis w/ hypotension precautions. Gastroesophageal reflux disease without esophagi tis 10/10/2019 Assessment & Plan (06/06/2020 1:12 AM CDT): - protonix 40mg qd Hx of adenomatous colonic polyps 10/10/2019 End stage renal disease on dialysis 08/22/2018 Overview (11/08/2021): 05/10/2021 OV, Dr. Branham Assessment & Plan (09/16/2022 7:50 PM CDT): Managed by Dr. Moreau Assessment & Plan (11/02/2020 1:29 AM CDT): Dialysis dependent for last two decades, likely 2/2 hypertensive nephropathy. Dialysis MWF, never misses a session. Plan: - consult nephro for dialysis orders - continue home phosphate binders, renal vitamins Assessment & Plan (06/26/2020 1:30 PM CDT): On HD MWF at [facility]. Dr. Squires is pt's Forming Machine Upkeep Mechanic. 2L out on 06/08 resulted in SVT. Fluid sensitive with dialysis requiring midodrine and close HR monitoring. ?? - continue home fosrenol, Phoslo, Vitamin B complex - RFP, mag daily - Nephrology following - Dialysis MWF - Continue renal home regimen - Electrolyte management per specialist Assessment & Plan (06/21/2020 12:21 PM CDT): On HD MWF at [facility]. Dr. Squires is pt's Forming Machine Upkeep Mechanic. 2L out on 06/08 resulted in SVT. Fluid sensitive with dialysis requiring midodrine and close HR monitoring. ?? - Goal UF between 0.5-1.5L today - continue home fosrenol, Phoslo, Vitamin B complex - RFP, mag daily - Nephrology following - MWF HD Assessment & Plan (06/15/2020 7:16 AM CDT): On HD MWF at [facility]. Dr. Squires is pt's Forming Machine Upkeep Mechanic. 1.2L UF out from HD on 06/06. 2L out on 06/08 resulted in SVT. - continue home fosrenol, Phoslo, Vitamin B complex - RFP, mag daily - Nephrology following - MWF HD Assessment & Plan (06/14/2020 6:56 AM CDT): On HD MWF at [facility]. Dr. Squires is pt's Forming Machine Upkeep Mechanic. 1.2L UF out from HD on 06/06. 2L out on 06/08 resulted in SVT. - continue home fosrenol, Phoslo, Vitamin B complex - RFP, mag daily - Nephrology following - MWF HD Assessment & Plan (06/12/2020 6:31 AM CDT): On HD MWF at [facility]. Dr. Squires is pt's Forming Machine Upkeep Mechanic. 1.2L UF out from HD on 06/06. 2L out on 06/08 resulted in SVT. - continue home fosrenol, Phoslo, Vitamin B complex - RFP, mag daily - Nephrology following - MWF HD Assessment & Plan (06/11/2020 9:40 AM CDT): On HD MWF at [facility]. Dr. Squires is pt's Forming Machine Upkeep Mechanic. 1.2L UF out from HD on 06/06. 2L out on 06/08 resulted in SVT. - continue home fosrenol, Phoslo, Vitamin B complex - RFP, mag daily - Nephrology following - MWF HD Assessment & Plan (06/10/2020 7:08 AM CDT): On HD MWF at [facility]. Dr. Squires is pt's Forming Machine Upkeep Mechanic. 1.2L UF out from HD on 06/06. 2L out on 06/08 resulted in SVT. - continue home fosrenol, Phoslo, Vitamin B complex - Question on Lanthanum dosage, will discuss with patient - BATOOL mag daily - Nephrology following - MWF HD Assessment & Plan (06/09/2020 10:35 AM CDT): On HD MWF at [facility] in [place]. Dr. Squires is pt's Forming Machine Upkeep Mechanic. 1.2L UF out from HD on 06/06. 2L out on 06/08 resulted in SVT. - continue home fosrenol, Phoslo, Vitamin B complex - Question on Lanthanum dosage, will discuss with patient - BATOOL mag daily - Nephrology following - MWF HD - Additional gentle UF dialysis today Assessment & Plan (06/08/2020 11:14 AM CDT): On HD MWF at [facility]. Dr. Squires is pt's Forming Machine Upkeep Mechanic. 1.2L UF out from HD on 06/06. - continue home fosrenol, Phoslo, Vitamin B complex - Question on Lanthanum dosage, will discuss with patient - mag BATOOL daily - Nephrology following - MWF HD Assessment & Plan (06/07/2020 11:05 AM CDT): On HD MWF at [facility] in [place]. Dr. Squires is pt's Forming Machine Upkeep Mechanic. 1.2L UF out from HD yesterday. - continue home fosrenol, Phoslo, Vitamin B complex - RFP, mag daily - Nephrology following Assessment & Plan (02/27/2019 3:09 PM COIN MACHINE MECHANIC): ESRD on HD (MWF). Receiving dialysis on same schedule while admitted as IP. Sees Dr. Moreau as OP - Nephrology consult and following; appreciate recs - HD while admitted as appropriate - Daily RFP/Mg levels - Continue home lanthanum, renal vitamin - Monitor I/Os Assessment & Plan (02/26/2019 7:04 AM COIN MACHINE MECHANIC): ESRD on HD (MWF). Last HD on Monday. Went in for dialysis this morning but due to ongoing CP and hypotension, was told to come to ED. Patient of Dr. Moreau's - Nephrology consult and following; appreciate recs - HD while admitted as appropriate - Daily RFP/Mg levels - Continue home lanthanum, renal vitamin - Monitor I/Os Assessment & Plan (02/25/2019 2:03 PM COIN MACHINE MECHANIC): ESRD on HD (MWF). Last HD on Monday. Went in for dialysis this morning but due to ongoing CP and hypotension, was told to come to ED. Patient of Dr. Moreau's - Nephrology consult and HD while admitted as appropriate - Daily RFP/Mg levels - Continue home lanthanum, renal vitamin - Monitor I/Os Assessment & Plan (08/29/2018 11:31 AM CDT): ESRD on MWF hemodialysis (Dr. Moreau), lead game designer is aware. Phos back in normal range at 4 today. - Continue dialysis. - Continue calcitriol, calcium acetate, cinacalcet, fosrenol, renal vitamin. - RFTs QD. Assessment & Plan (08/28/2018 1:49 PM CDT): ESRD on MWF hemodialysis (Dr. Moreau), lead game designer is aware. Phos back in normal range at 3.2 today. - Continue dialysis. - Continue calcitriol, calcium acetate, cinacalcet, fosrenol, renal vitamin. - RFTs QD. Assessment & Plan (08/27/2018 3:10 PM CDT): ESRD on MWF hemodialysis (Dr. Moreau), lead game designer is aware. K low at 3.4 today. Phos high at 6.2. - Continue dialysis. - Continue calcitriol, calcium acetate, cinacalcet, fosrenol, renal vitamin. - Encourage patient to take phosphate binders despite NPO status due to high phos. - K repletion during dialysis - RFTs QD. Assessment & Plan (08/26/2018 12:11 PM CDT): ESRD on MWF hemodialysis (Dr. Moreau), lead game designer is aware. - Continue dialysis. - Continue calcitriol, calcium acetate, cinacalcet, fosrenol, renal vitamin. - RFTs QD. Assessment & Plan (08/25/2018 3:13 PM CDT): Follows with Dr. Moreau. Has MWF scheduled. - Nephrology consulted, appreciate recommendations - Dialysis per Nephrology - Continue calcitriol, calcium acetate, cinacalcet, fosrenol, renal vitamin Assessment & Plan (08/24/2018 2:04 PM CDT): ESRD on MWF hemodialysis (Dr. Moreau), lead game designer is aware. - Continue dialysis. - Continue calcitriol, calcium acetate, cinacalcet, fosrenol, renal vitamin. - RFTs QD. Assessment & Plan (08/23/2018 11:49 AM CDT): ESRD on MWF hemodialysis (Dr. Moreau), lead game designer is aware. - Continue dialysis. - Continue calcitriol, calcium acetate, cinacalcet, fosrenol, renal vitamin. - RFTs QD. Assessment & Plan (08/22/2018 3:31 PM CDT): ESRD on MWF hemodialysis (Dr. Moreau) - Continue dialysis. - Continue calcitriol, calcium acetate, cinacalcet, fosrenol, renal vitamin. - RFTs QD. HFrEF (heart failure with reduced ejection fract ion) 12/19/2017 Renal osteodystrophy 04/24/2017 Restrictive lung disease 08/15/2016 Hyperparathyroidism, secondary renal 07/23/2015 Overview (11/08/2021): 05/10/2021 Dr. Carrol MORALES Assessment & Plan (09/16/2022 7:50 PM CDT): Managed by Dr. Moreau Chronic atrial fibrillation 04/26/2015 Overview (11/08/2021): 05/10/2021 Dr. Carrol MORALES Assessment & Plan (11/10/2021 11:30 AM CDT): rhythm controlled, - Dig per cardiology - Apixaban - Continue to follow with Cardiology Assessment & Plan (05/10/2021 12:44 PM CDT): Uncontrolled during recent dialysis. - Will discuss w/ Dr. Painting Assessment & Plan (06/06/2020 1:30 AM CDT): On home eliquis 2.5mg bid. Sinus rhythm in OSH EKG. - continue home eliquis. - holding metoprolol succinate in the setting of CHF exacerbation Assessment & Plan (02/27/2019 7:07 AM COIN MACHINE MECHANIC): On home Eliquis 2.5mg PO BID. Sees Dr. Alves. History of prior DVT. - Continue Eliquis and Metoprolol - Cardiac telemetry monitoring Assessment & Plan (02/25/2019 3:47 PM COIN MACHINE MECHANIC): On home Eliquis 2.5mg PO BID. Sees Dr. Alves. History of prior DVT. - Continue Eliquis and Metoprolol - Cardiac telemetry monitoring Assessment & Plan (02/25/2019 2:20 PM COIN MACHINE MECHANIC): On home Eliquis 2.5mg PO BID. Sees Dr. Alves. History of prior DVT. - Continue Eliquis - Cardiac telemetry monitoring Assessment & Plan (08/29/2018 11:31 AM CDT): - Restart Eliquis, stop ppx heparin Assessment & Plan (08/28/2018 1:44 PM CDT): - Hold Eliquis for time being per surgery recs Assessment & Plan (08/27/2018 3:09 PM CDT): - Hold Eliquis for time being per surgery recs Assessment & Plan (08/26/2018 12:06 PM CDT): - Hold Eliquis for time being per surgery recs Assessment & Plan (08/25/2018 3:12 PM CDT): Was previously on Eliquis in the outpatient setting. - Hold Eliquis at this time due to surgical risk - Start Heparin Assessment & Plan (08/24/2018 2:03 PM CDT): - Continue Eliquis Assessment & Plan (08/23/2018 11:48 AM CDT): - Continue Eliquis Assessment & Plan (08/22/2018 3:29 PM CDT): - Continue Eliquis NICM (nonischemic cardiomyopathy) 10/18/2013 Overview (11/08/2021): 09/24/2020 OV, Dr. Alves History of deep vein thrombosis 03/20/2013 Overview (04/30/2013): DVT left leg, superficial right leg--on coumadin. Managed by PCP. Atherosclerotic heart diseas e of [place] coronary artery without angina pectoris 08/09/2012 Overview (03/31/2016): Overview: Mild, non-obstructive CAD LENORA (obstructive sleep apnea) 02/20/2002 Overview (07/12/2018): Overview: Overview: uses CPAP without O2- compliant most nights uses CPAP without O2- compliant most nights Class 1 obesity with serious comorbidity in adul t Assessment & Plan (12/29/2022 9:59 AM COIN MACHINE MECHANIC): - Discussed dietary changes - Encourage exercise - Encourage Noom or WW - Commercial Loan Collection Officer eval Assessment & Plan (09/16/2022 7:50 PM CDT): - Discussed dietary changes - Encourage exercise Coronary artery disease invo lving [place] coronary artery of [place] heart Overview (04/30/2013): 2004 HLD (hyperlipidemia) Assessment & Plan (09/16/2022 7:52 PM CDT): - continue atorvastatin Assessment & Plan (11/10/2021 9:45 PM CDT): - continue atorvastatin Assessment & Plan (06/06/2020 1:21 AM CDT): On home rosuvastatin 5mg qd. - atorvastatin 20mg qd while in the hospital COPD (chronic obstructive pulmonary disease) Overview (04/30/2013): Compensation Programs Manager Dr Leos Assessment & Plan (09/16/2022 7:55 PM CDT): Stable Flovent BID Albuterol PRN Following w/ Dr. Leos Assessment & Plan (11/02/2020 1:32 AM CDT): COPD on home Qvar and oral tiotropium. Reports breathing well currently, exam benign. Plan: - continue home COPD meds Anemia in chronic kidney disease, on chronic jorge lysis Rheumatoid factor positive Overview (04/30/2013): RA- 08/1994, no meds Spinal stenosis of lumbar re gion with neurogenic claudication Assessment & Plan (12/29/2022 10:03 AM COIN MACHINE MECHANIC): Gabapentin Lidocaine patch See Spine Surgery Resolved Problems Problem Noted Date Diagnosed Date Resolved Date Constipation 11/09/2023 12/07/2023 Constipation 11/09/2023 12/07/2023 Acute postoperative respiratory insufficiency 10/20/19 24 12/22/2023 Pre-op exam 10/05/2023 12/22/2023 T2DM (type 2 diabetes mellitus) 10/05/2023 12/22/2023 Acute right-sided weakness 10/05/2023 1 02/20/2023 Acute hypoxic respiratory failure 04/11/2023 06/21/2023 Myelopathy 04/10/2023 12/22/2023 History of diabetes mellitus 03/20/2023 01/10/2024 Assessment & Plan (06/21/2023 12:25 PM CDT): A1c controlled, no longer diabetic Diverticulitis 12/29/2022 12/29/2022 Assessment & Plan (12/29/2022 10:03 AM COIN MACHINE MECHANIC): S/p abx, doing well Abdominal pain, generalized 12/21/2022 12/29/2022 Dyspnea on exertion 12/21/2022 06/21/19 24 Assessment & Plan (12/29/2022 10:00 AM COIN MACHINE MECHANIC): Suspect 2/2 chronic hypotension - Midodrine ESRD on dialysis 12/21/2022 12/29/2022 Chest pain, unspecified type 12/21/2022 12/29/2022 Obesity (BMI 30-39.9) 12/08/20222022 Rheumatoid arthritis 12/08/2022 023 Metabolic syndrome 12/08/2022 Other chronic pain 12/08/2022 3 Osteoporosis 11/10/2021 09/14/2022 Paraparesis 11/10/2021 12/22/2023 Assessment & Plan (06/21/2023 12:26 PM CDT): Due to history of nerve compression, under care of Dr. Fuentes Trial of Cymbalta for paraesthesias Assessment & Plan (09/16/2022 7:54 PM CDT): Improving! Continue w/ PT PAF (paroxysmal atrial fibrillation) 11/08/2021 11/10/2021 Overview (11/08/2021): 09/24/2021 Dr. Joselyn MORALES Diabetic polyneuropathy asso ciated with type 2 diabetes mellitus 11/08/2021 11/10/2021 Overview (11/08/2021): 08/17/2021 Dr. Ольга MORALES D dimer 11/01/2020 11/03/2020 Assessment & Plan (11/02/2020 1:24 AM CDT): D-dimer elevated on admission to 1.43, above normal of 0.50. Likely chronically elevated due to ESRD, although patient has been off anticoagulation for two weeks due to planned surgery. Plan: -heparin at prophylactic dosing for now -lower extremity dopplers as above Bilateral lower extremity pain 11/01/2020 11/10/2020 Assessment & Plan (11/02/2020 1:20 AM CDT): Admission for few days history of severe pain in both legs, asymmetric with L starting first but R now considerably worse. Pain described as electric shocks, involving significant allodynia and worsening with all movement. Pain involves full legs, from feet to hips. Difficult to obtain proper neuro exam due to pain. Differential diagnosis includes most likely complex regional pain syndrome vs vasculitic neuropathy (hx of elevated atypical ANCA titer, diabetes, nosebleeds) vs DVT (patient has been off anticoagulation, though D-dimer barely elevated) vs myopathy (though CK normal) vs ischemic (though palpable distal pulses) vs toxic neuropathy. Admitted for workup and pain control. Plan: -Admit to Family Medicine, Dr Rocha -Initial dose of 0.2 dilaudid for pain control -VS q4hr -Continuous telemetry -Lower extremity dopplers in AM -PT/OT evaluation in AM -ESR, CRP to evaluate for inflammatory conditions, though likely to be somewhat elevated at baseline due to ESRD -Consider neurology consult -Consider EMG Dizziness and giddiness 10/19/202010/22 Chronic health problem 06/26/202011/10 Assessment & Plan (06/26/2020 1:29 PM CDT): Patient has a history of CAD, HFpEF (echo from 05/2019, EF 42%, G2DD, and systolic dysfunction), asthma, hypotension, A fib, LENORA. CAD - continue Lipitor HFpEF - holding metoprolol - will consider Cardiology consult if concerns arise A. Fib - continue anticoagulation with Eliquis Asthma - resume home regimen, per pulmonology LENORA - CPAP 6L overnight Abnormal findings on diagnos tic imaging of liver 06/09/2020 11/10/2020 Assessment & Plan (06/12/2020 6:33 AM CDT): Noted hypoattenuated foci on liver on recent CT as well as previous CT's that was initially recommended to have followed up outpatient. No major GI concerns per patient. MRI showed Small simple cysts in the right hepatic lobe. No abnormal enhancement or solid-appearing lesion identified. - GI consult - Benign findings - AFP/CEA - CEA mildly elevated, AFP WNL Assessment & Plan (06/11/2020 9:41 AM CDT): Noted hypoattenuated foci on liver on recent CT as well as previous CT's that was initially recommended to have followed up outpatient. No major GI concerns per patient. - GI consult - Rule out benign vs malignant - AFP/CEA - CEA mildly elevated, AFP WNL - MRI w/ contrast today Assessment & Plan (06/10/2020 11:14 AM CDT): Noted hypoattenuated foci on liver on recent CT as well as previous CT's that was initially recommended to have followed up outpatient. No major GI concerns per patient. - GI consult - Rule out benign vs malignant - AFP/CEA - MRI w/ contrast tomorrow Assessment & Plan (06/09/2020 10:34 AM CDT): Noted hypoattenuated foci on liver on recent CT as well as previous CT's that was initially recommended to have followed up outpatient. No major GI concerns per patient. - GI consult for evaluation of need for inpatient workup vs outpatient management. Low back pain 06/08/2020 12/29/2022 Assessment & Plan (05/10/2021 12:44 PM CDT): PT, see Dr. Alfredo Rodriguez Assessment & Plan (11/10/2020 8:11 PM CDT): Uncontrolled, chronic - Gabapentin titration 100mg TID - Flexeril - Tylenol, heating pad Assessment & Plan (06/15/2020 7:16 AM CDT): Noted right low back pain this morning. Tender to light touch. Spastic muscles noted. Likely muscle cramp due to chronic HD and electrolyte abnormalities. - Flexeril 10mg TID prn Assessment & Plan (06/14/2020 6:56 AM CDT): Noted right low back pain this morning. Tender to light touch. Spastic muscles noted. Likely muscle cramp due to chronic HD and electrolyte abnormalities. - Flexeril 10mg TID prn Assessment & Plan (06/10/2020 12:45 PM CDT): Noted right low back pain this morning. Tender to light touch. Spastic muscles noted. Likely muscle cramp due to chronic HD and electrolyte abnormalities. - Flexeril 10mg TID prn Assessment & Plan (06/10/2020 7:09 AM CDT): Noted right low back pain this morning. Tender to light touch. Spastic muscles noted. Likely muscle cramp due to chronic HD and electrolyte abnormalities. - Flexeril 10mg TID prn Assessment & Plan (06/09/2020 6:55 AM CDT): Noted right low back pain this morning. Tender to light touch. Spastic muscles noted. Likely muscle cramp due to chronic HD and electrolyte abnormalities. - Flexeril 10mg TID prn Assessment & Plan (06/08/2020 11:16 AM CDT): Noted right low back pain this morning. Tender to light touch. Spastic muscles noted. Likely muscle cramp due to chronic HD and electrolyte abnormalities. - Flexeril 10mg TID prn Shortness of breath 06/06/2020 11/11/19 Assessment & Plan (06/15/2020 10:44 AM CDT): Pt with ongoing SOB with productive cough of days. OSH CXR with vascular congestion and b/l infiltrates. ProBNP of 2900. On arrival AFVSS, SaO2 96% on 2L NC. Presentation likely multifactorial including COPD exacerbation and CHF exacerbation. Pt sp rocephin and azitrhomycin in OSH ED. Pt states is anuric. COVID negative. Likely diagnosis after initial workup is vital/atypical pneumonia, due to atypical lung findings noted. Improving well, now off oxygen. - Ambulatory oxymetry yesterday - Able to keep O2 >90% while walking yesterday - New amb ox study today due to needing O2 while in dialysis, likely due to increased fluid state as symptoms have improved during dialysis - Pulmonary consult - S/p Rocephin and Doxy course - Continue bronchial hygiene - RPP negative - Legionella, and strep pneumo not able to be obtained due to anuric - Sputum gram stain not able to be obtained due no lack of sputum production - S/p Prednisone Cardiology consult - States not fluid up as of 06/08 prior to dialysis - Echo with no major change from previous, EF 42% with grade 2 diastolic dysfunction - VS q4h - I/Os - continuous pulse ox, cardiac tele - Xopenex and Atrovent Q6hr - Qvar - CBC, RFP daily - Resume home metoprolol succinate Assessment & Plan (06/14/2020 1:14 PM CDT): Pt with ongoing SOB with productive cough of days. OSH CXR with vascular congestion and b/l infiltrates. ProBNP of 2900. On arrival AFVSS, SaO2 96% on 2L NC. Presentation likely multifactorial including COPD exacerbation and CHF exacerbation. Pt sp rocephin and azitrhomycin in OSH ED. Pt states is anuric. COVID negative. Likely diagnosis after initial workup is vital/atypical pneumonia, due to atypical lung findings noted. Improving well, now off oxygen. - Ambulatory oxymetry today - Able to keep O2 >90% while walking - Pulmonary consult - S/p Rocephin and Doxy course - Continue bronchial hygiene - RPP negative - Legionella, and strep pneumo not able to be obtained due to anuric - Sputum gram stain not able to be obtained due no lack of sputum production - S/p Prednisone Cardiology consult - States not fluid up as of 06/08 prior to dialysis - Echo with no major change from previous, EF 42% with grade 2 diastolic dysfunction - VS q4h - I/Os - continuous pulse ox, cardiac tele - Xopenex and Atrovent Q6hr - Qvar - CBC, RFP daily - Resume home metoprolol succinate Assessment & Plan (06/12/2020 6:31 AM CDT): Pt with ongoing SOB with productive cough of days. OSH CXR with vascular congestion and b/l infiltrates. ProBNP of 2900. On arrival AFVSS, SaO2 96% on 2L NC. Presentation likely multifactorial including COPD exacerbation and CHF exacerbation. Pt sp rocephin and azitrhomycin in OSH ED. Pt states is anuric. COVID negative. Likely diagnosis after initial workup is vital/atypical pneumonia, due to atypical lung findings noted. Slow improvement each day with ongoing dialysis and antibiotic therapy. - Pulmonary consult - Rocephin and Doxy - Continue bronchial hygiene - RPP negative - Legionella, and strep pneumo not able to be obtained due to anuric - Sputum gram stain not able to be obtained due no lack of sputum production - S/p Prednisone Cardiology consult - States not fluid up as of 06/08 prior to dialysis - Echo with no major change from previous, EF 42% with grade 2 diastolic dysfunction - VS q4h - I/Os - continuous pulse ox, cardiac tele - Xopenex and Atrovent Q6hr - Qvar - CBC, RFP daily - Resume home metoprolol succinate Assessment & Plan (06/11/2020 9:40 AM CDT): Pt with ongoing SOB with productive cough of days. OSH CXR with vascular congestion and b/l infiltrates. ProBNP of 2900. On arrival AFVSS, SaO2 96% on 2L NC. Presentation likely multifactorial including COPD exacerbation and CHF exacerbation. Pt sp rocephin and azitrhomycin in OSH ED. Pt states is anuric. COVID negative. Likely diagnosis after initial workup is vital/atypical pneumonia, due to atypical lung findings noted. Slow improvement each day with ongoing dialysis and antibiotic therapy. - Pulmonary consult - Rocephin and Doxy - Continue bronchial hygiene today - RPP negative - Legionella, and strep pneumo not able to be obtained due to anuric - Sputum gram stain not able to be obtained due no lack of sputum production - S/p Prednisone Cardiology consult - States not fluid up as of 06/08 prior to dialysis - Echo with no major change from previous, EF 42% with grade 2 diastolic dysfunction - VS q4h - I/Os - continuous pulse ox, cardiac tele - Xopenex and Atrovent Q6hr - Qvar - CBC, RFP daily - Resume home metoprolol succinate Assessment & Plan (06/10/2020 11:14 AM CDT): Pt with ongoing SOB with productive cough of days. OSH CXR with vascular congestion and b/l infiltrates. ProBNP of 2900. On arrival AFVSS, SaO2 96% on 2L NC. Presentation likely multifactorial including COPD exacerbation and CHF exacerbation. Pt sp rocephin and azitrhomycin in OSH ED. Pt states is anuric. COVID negative. Mild/no improvement after HD and 1.2L UF removal. - Pulmonary consult - Rocephin and Doxy - Continue bronchial hygiene today - RPP negative - Legionella, and strep pneumo not able to be obtained due to anuric - Sputum gram stain not able to be obtained due no lack of sputum production Cardiology consult - States not fluid up as of 06/08 prior to dialysis - Echo with no major change from previous, EF 42% with grade 2 diastolic dysfunction - VS q4h - I/Os - continuous pulse ox, cardiac tele - Duo-Nebs q6h - PO prednisone day 5/5 - Qvar - CBC, RFP daily - Resume home metoprolol succinate Assessment & Plan (06/09/2020 10:36 AM CDT): Pt with ongoing SOB with productive cough of days. OSH CXR with vascular congestion and b/l infiltrates. ProBNP of 2900. On arrival AFVSS, SaO2 96% on 2L NC. Presentation likely multifactorial including COPD exacerbation and CHF exacerbation. Pt sp rocephin and azitrhomycin in OSH ED. Pt states is anuric. COVID negative. Mild/no improvement after HD and 1.2L UF removal. - Pulmonary consult - Rocephin and Doxy - Continue bronchial hygiene today - RPP negative - Legionella, and strep pneumo not able to be obtained due to anuric - Sputum gram stain not able to be obtained due no lack of sputum production Cardiology consult - States not fluid up as of 06/08 prior to dialysis - Echo with no major change from previous, EF 42% with grade 2 diastolic dysfunction - VS q4h - I/Os - continuous pulse ox, cardiac tele - Duo-Nebs q4h - PO prednisone day 4/5 - Qvar - CBC, RFP daily - Resume home metoprolol succinate Assessment & Plan (06/08/2020 10:54 AM CDT): Pt with ongoing SOB with productive cough of days. OSH CXR with vascular congestion and b/l infiltrates. ProBNP of 2900. On arrival AFVSS, SaO2 96% on 2L NC. Presentation likely multifactorial including COPD exacerbation and CHF exacerbation. Pt sp rocephin and azitrhomycin in OSH ED. Pt states is anuric. COVID negative. Mild/no improvement after HD and 1.2L UF removal. - Pulmonary consult - Resumed Rocephin, Switched Azith to Doxy - Start bronchial hygiene today - RPP negative - Legionella, and strep pneumo not able to be obtained due to anuric - Sputum gram stain not able to be obtained due no lack of sputum production Cardiology consult - Fluid overload vs current dry weight - Echo today to assess heart failure - VS q4h - I/Os - continuous pulse ox, cardiac tele - Duo-Nebs q4h - PO prednisone day 4/5 - Qvar - CBC, RFP daily - hold home metoprolol succinate Assessment & Plan (06/07/2020 11:06 AM CDT): Pt with ongoing SOB with productive cough of days. OSH CXR with vascular congestion and b/l infiltrates. ProBNP of 2900. On arrival AFVSS, SaO2 96% on 2L NC. Presentation likely multifactorial including COPD exacerbation and CHF exacerbation. Pt sp rocephin and azitrhomycin in OSH ED. Pt states is anuric. COVID negative. Mild/no improvement after HD and 1.2L UF removal. - Pulmonary consult for continued SOB despite several days of dialysis/steroid/inhaler course, possibly may need to increase antibiotic coverage, will follow with recs - VS q4h - I/Os - continuous pulse ox, cardiac tele - Duo-Nebs q4h - PO prednisone day 3/5 - Qvar - continue azithromycin - D/c rocephin - CBC, RFP daily - hold home metoprolol succinate Acute respiratory failure 06/05/2020 Assessment & Plan (06/26/2020 1:29 PM CDT): Continued respiratory failure after recent admission for similar process. Likely 2/2 recurrent pulmonary infection vs chronic fluid overload state. Patient states that she is compliant with her dialysis schedule/fluid restrictions as well as all outpatient medication. Recently completed a 7 day antibiotic course as well as a steroid course for possible concomittant COPD component. Patient was discharged on 06/15 and readmitted to [facility] within 24-48 hours for similar symptoms. Discharged with O2 and noted to have a fever and recurrent desaturations since. Dialysis session on 06/19 she was noted to have chest pain and desaturations requiring admission. Patient was transferred to the ICU due to increasing oxygen demands. Now improving on steroid, transferred from ICU to [facility] team on 06/25. ?? - Patient care deescalated to TCU status, General medicine, Dr. Scott - Sputum culture (06/19): moderate PMN, oropharyngeal javan - RPP negative (06/19), MRSA negative - Pulmonary consult, recs appreciated - Long steroid taper, currently on 60mg prednisone BID - Restarting Qvar - Xopenex and Atrovent Q6hr PRN - Bronchial Hygiene - Oxygen on 3L NC, IONA cautiously - VS q4h - continuous pulse ox, cardiac tele - CBC, RFP daily Assessment & Plan (06/21/2020 12:21 PM CDT): Continued respiratory failure after recent admission for similar process. Likely 2/2 recurrent pulmonary infection vs chronic fluid overload state. Patient states that she is compliant with her dialysis schedule/fluid restrictions as well as all outpatient medication. Recently completed a 7 day antibiotic course as well as a steroid course for possible concomittant COPD component. Patient was discharged on 06/15 and readmitted to [facility] within 24-48 hours for similar symptoms. Discharged with O2 and noted to have a fever and recurrent desaturations since. Dialysis session on 06/19 she was noted to have chest pain and desaturations requiring admission. Progressing poorly requiring 15L O2 on CPAP. ?? - Discussed case with ICU attending, will follow recs. - ABG - pH 7.41, PaO2 43, HCO3 27 - Sputum culture - heavy gram negative diplococci - Considering treating for persistent/repeat infection pending symptoms after CPAP/HD intervention for respiratory status - RPP negative - Pulmonary consult - S/p Rocephin and Doxy course on 06/13 and Prednisone on 06/11. RPP negative on 06/07 - Nephrology consult - Dialysis MWF - Urgent dialysis today - VS q4h - continuous pulse ox, cardiac tele - Xopenex and Atrovent Q6hr - Qvar - CBC, RFP daily Assessment & Plan (06/10/2020 12:46 PM CDT): Ongoing CP likely in the setting of above. OSH with troponin of 0.026 wnl. OSH EKG without acute ST changes, overall unchanged from previous on 02/25/2019. Troponin showing demand ischemia. CXR showing diffuse edema. COVID negative. RPP negative. RR on 06/08 after 2L removal via dialysis caused SVT, responded to IVF bolus, adenosine, and metoprolol. - Cardiac tele - tylenol for mild pain - dilaudid 0.2mg prn severe pain Assessment & Plan (06/10/2020 7:08 AM CDT): Ongoing CP likely in the setting of above. OSH with troponin of 0.026 wnl. OSH EKG without acute ST changes, overall unchanged from previous on 02/25/2019. Troponin showing demand ischemia. CXR showing diffuse edema. COVID negative. RPP negative. RR on 06/08 after 2L removal via dialysis caused SVT, responded to IVF bolus, adenosine, and metoprolol. - Cardiac tele - tylenol for mild pain - dilaudid 0.2mg prn severe pain Assessment & Plan (06/09/2020 6:54 AM CDT): Ongoing CP likely in the setting of above. OSH with troponin of 0.026 wnl. OSH EKG without acute ST changes, overall unchanged from previous on 02/25/2019. Troponin showing demand ischemia. CXR showing diffuse edema. COVID negative. RPP negative. RR on 06/08 after 2L removal via dialysis caused SVT, responded to IVF bolus, adenosine, and metoprolol. - Cardiac tele - tylenol for mild pain - dilaudid 0.2mg prn severe pain Assessment & Plan (06/08/2020 6:56 AM CDT): Ongoing CP likely in the setting of above. OSH with troponin of 0.026 wnl. OSH EKG without acute ST changes, overall unchanged from previous on 02/25/2019. Troponin showing demand ischemia. CXR showing diffuse edema. COVID negative. RPP negative. Mild chest pressure overnight with continued shortness of breath. - Cardiac tele - tylenol for mild pain - dilaudid 0.2mg prn severe pain Assessment & Plan (06/07/2020 7:15 AM CDT): Ongoing CP likely in the setting of above. OSH with troponin of 0.026 wnl. OSH EKG without acute ST changes, overall unchanged from previous on 02/25/2019. Troponin showing demand ischemia. CXR showing diffuse edema. COVID negative. No further chest pain overnight. Likely 2/2 SOB/fluid overload state - Cardiac tele - tylenol for mild pain - dilaudid 0.2mg prn severe pain Sigmoid diverticulitis 05/08/202011/10 Assessment & Plan (05/11/2020 9:01 PM CDT): On treatment, doing well. 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 Patient has history of multiple previous MIs and describes this pain as similar to those. Worse with exertion, relieved with rest. Elevated troponin levels, EKG showing T wave inversions in lateral leads. Pain now relieved with rest and lidocaine patches. Chest tenderness to palpation - Cardiology consult and following; appreciate recommendations - Lexiscan stress test obtained. Negative for inducible ischemia. 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 Patient has history of multiple previous MIs and describes this pain as similar to those. Worse with exertion, relieved with rest. Elevated troponin levels, EKG showing T wave inversions in lateral leads. Pain now relieved with rest. Chest tenderness to palpation - Cardiac telemetry monitoring - Cardiology consult and following; appreciate recommendations - Lexiscan stress test and repeat Echocardiogram - Repeat troponin and EKG for new or worsening CP - Lidocaine patches for musculoskeletal CP Assessment & Plan (02/25/2019 1:58 PM COIN MACHINE MECHANIC): Chest pain occurring for past 5 days, described as substernal, pressure-like, with radiation to L shoulder and associated SOB, 2 episodes of emesis, diaphoresis, weakness. Patient has history of multiple previous MIs and describes this pain as similar to those. Worse with exertion, relieved with rest. Elevated troponin levels, EKG showing T wave inversions in lateral leads. Pain now relieved with rest. Chest tenderness to palpation - Admit to [facility], Dr. Cifuentes attending physician - Cardiac telemetry monitoring - Cardiology consult - Consider stress test pending Cardiology recommendations - Trend troponin levels - Repeat EKG for new or worsening CP Fever 08/24/2018 08/26/2018 Assessment & Plan (08/25/2018 3:23 PM CDT): Fevers several days ago, with numerous temperatures recently between 100 and 100.3. Currently on dual antibiotic therapy. - Continue Zosyn and Flagyl - Will start Vancomycin Assessment & Plan (08/24/2018 2:08 PM CDT): Patient spiked fever to 103.1F overnight, has had fevers overnight throughout admission. She has been experiencing chills. Fever episodes are associated with tachycardia. She has also been hypotensive to the 70s/40s. Leukocytosis on admission is now resolved. Sources of infection to consider are GI, UTI/pyelonephritis, endocarditis, PNA, meningitis. She has had normal CT w/o contrast and obstructive series on 08/22. Other infectious sources mentioned above are unlikely based on current clinical picture. There is c/f osteomyelitis in the setting of dialysis status. Blood cultures are pending and show NGTD. - Tylenol PRN for fever - CT AP w/ contrast for c/f perforation - Obtain ESR/CRP for c/f osteomyelitis - Empiric Zosyn - In the case of additional fevers/chills, obtain repeat lactate and blood cultures - CTM CBC QD - If showing no signs of improvement with additional episodes of fever, tachycardia, and hypotension, consider addition of vancomycin and MRI for osteomyelitis Large bowel perforation 08/24/201808/20 Assessment & Plan (08/29/2018 11:32 AM CDT): CT on 08/24 showed a colonic microperforation, surgery is following, recommends no surgical intervention at this time. Abdominal exams are much improved from admission with only mild TTP in the epigastric region, no guarding or rebound. - Advance to regular diet today - CTM serial abdominal exams Assessment & Plan (08/28/2018 1:41 PM CDT): CT on 08/24 showed a colonic microperforation, surgery is following, recommends no surgical intervention at this time. - Clear liquid diet, ADAT - CTM serial abdominal exams Assessment & Plan (08/28/2018 11:42 AM CDT): Lkjas;lkjdf;lkjasd;lkfj;lkasdjf;lkasjdfl;kjas;lkjdfl;kasdjf sa Assessment & Plan (08/27/2018 3:08 PM CDT): CT on 08/24 showed a colonic microperforation, surgery is following, recommends no surgical intervention at this time. - NPO per surgery recs, liquid medications okay, can advance to clears tomorrow - CTM serial abdominal exams Assessment & Plan (08/26/2018 12:11 PM CDT): CT on 08/24 showed a colonic microperforation, surgery is following, recommends no surgical intervention at this time. - NPO per surgery recs - CTM serial abdominal exams Sepsis 08/22/2018 09/03/2018 Abdominal pain 08/22/2018 09/03/2018 Overview (08/22/2018): Ms. Leos presented with 3 days of abdominal pain associated with fevers/chills, nausea/vomiting, diarrhea initially followed by two days of constipation and not passing gas. She was afebrile on admission. WBC on admission was 13.7. Lipase and lactate are normal. Assessment & Plan (08/29/2018 11:30 AM CDT): Pain control has been steadily improving, currently no pain, only requiring pain medications prior to dialysis. See diverticulitis above for diverticulitis management. - Zofran PRN for nausea - Simethicone for bloating - Miralax BID for constipation, can also consider milk of magnesia per GI - Pain control with Toradol, tramadol, and fentanyl PRN Assessment & Plan (08/28/2018 1:43 PM CDT): Pain most likely due to ongoing left and proximal sigmoid diverticulitis, unresolved from last admission. Constipation is likely also contribution. Pain control has been steadily improving with bowel movements and passage of gas. See diverticulitis above for diverticulitis management. - Zofran PRN for nausea - Simethicone for bloating - Currently holding Miralax, can consider Miralax BID and/or milk of magnesia for constipation, no enemas per GI recs - Pain control with Toradol, tramadol, and fentanyl Assessment & Plan (08/27/2018 3:09 PM CDT): Pain most likely due to ongoing left and proximal sigmoid diverticulitis, unresolved from last admission. Constipation is likely also contribution. Pain has been somewhat relieved with bowel movements in past two days and passage of gas. See diverticulitis above for diverticulitis management. - Zofran PRN for nausea - Simethicone for bloating - Hold Miralax today, if no BM, consider Miralax BID and/or milk of magnesia for constipation, no enemas per GI recs - Pain control with Toradol, tramadol, and fentanyl, D/C morphine Assessment & Plan (08/26/2018 12:07 PM CDT): Pain most likely due to ongoing left and proximal sigmoid diverticulitis, unresolved from last admission. Constipation is likely also contribution. Pain has been somewhat relieved with bowel movements in past two days and passage of gas. See diverticulitis above for diverticulitis management. - Zofran PRN for nausea - Simethicone for bloating - Miralax BID for constipation - Pain control with Toradol first line, tramadol PRN second line, morphine PRN third line - NPO per surgery recs Assessment & Plan (08/24/2018 2:05 PM CDT): She has had normal CT without contrast and obstructive series (08/22). C/f severe constipation (no bowel movement since 08/20) and infectious process in light of fevers/chills, tachycardia, and hypotension. Leukocytosis is resolved. See fever below for additional infectious work up. - CT AP w/ contrast for c/f perforation - Empiric Zosyn - CTM CBC QD - Zofran PRN for nausea - Pain control with Toradol 30 once, tramadol PRN second line - If no evidence of perforation on CT, mineral oil enema for constipatiom - Clear liquid diet - C diff assay Assessment & Plan (08/23/2018 11:47 AM CDT): Obstruction ruled out with normal CT and obstructive series. C/f opioid induced constipation and infectious process in light of fevers/chills, tachycardia, hypotension, and increased WBCs. Blood cultures are pending. - Glycerin suppositories and Miralax BID for constipation, continue home Linzess - Empiric Zosyn - In the case of additional fevers/chills, obtain repeat AXR, lactate, and blood cultures - CTM CBC QD - Zofran PRN for nausea - Pain control with Toradol 30 once, tramadol PRN second line - Clear liquid diet - C diff assay Assessment & Plan (08/22/2018 3:48 PM CDT): C/f obstruction vs recurrent diverticulitis vs opioid induced constipation. - Small bowel follow through - Treatment for constipation pending results of SBTF - Continue home Linzess - Blood cultures - Empiric Zosyn - CTM CBC QD - Zofran PRN for nausea - Pain control with Tylenol, [place], and IV morphine PRN, ideally avoiding opioid medications if possible - NPO except for small sips with medications and ice chips - C diff assay Hemorrhoids 08/22/2018 05/11/2020 Assessment & Plan (08/29/2018 11:31 AM CDT): - Hemorrhoid cream PRN Assessment & Plan (08/28/2018 1:49 PM CDT): - Hemorrhoid cream PRN Assessment & Plan (08/27/2018 3:10 PM CDT): - Hemorrhoid cream PRN Assessment & Plan (08/26/2018 12:11 PM CDT): - Hemorrhoid cream PRN Assessment & Plan (08/24/2018 2:04 PM CDT): - Hemorrhoid cream PRN Assessment & Plan (08/23/2018 11:49 AM CDT): - Hemorrhoid cream PRN Assessment & Plan (08/22/2018 3:34 PM CDT): - Hemorrhoid cream PRN Diverticulitis of colon 08/01/201808/20 Overview (08/26/2018): Patient had an episode of diverticulitis resulting in admission on 08/01. Symptoms initially improved after discharge however pain began to increase resulting in the current admission. She was also having fever/chills at the time of admission and has had intermittent fevers associated with tachycardia and hypotension throughout this admission. Assessment & Plan (08/29/2018 11:34 AM CDT): CT on 08/24 showed a colonic microperforation, surgery is following and recommends no surgical intervention at this time. Leukocytosis is resolved. VS stable, no episodes of fever, tachycardia, or hypotension in last 24h. Blood cultures (08/22, 08/25) all NGTD. She has been treated with Zosyn (08/22-), Flagyl (08/24-08/26), and vancomycin (08/25-). - Transition from IV to PO antibiotics, Augmentin 500 mg QD x3 days for a total 10d course of antibiotics, on dialysis days take after dialysis, D/C Zosyn and vancomycin - CTM CBC QD - Advance to regular diet today, monitor for PO tolerance - Stop maintenance fluids Assessment & Plan (08/28/2018 1:42 PM CDT): CT on 08/24 showed a colonic microperforation, surgery is following and recommends no surgical intervention at this time. Leukocytosis is resolved. VS stable, no episodes of fever, tachycardia, or hypotension in last 24h. Blood cultures (08/22, 08/25) all NGTD. She has been treated with Zosyn (08/22-), Flagyl (08/24-08/26), and vancomycin (08/25-). - Continue Zosyn, vancomycin, will discuss with GI timeline for transition to PO abx, likely total 10d course - CTM CBC QD - Clear liquid diet today, ADAT - Reduce maintenance fluids to 50 cc/hr D5 1/2 NS Assessment & Plan (08/27/2018 3:07 PM CDT): CT on 08/24 showed a colonic microperforation, surgery is following and recommends no surgical intervention at this time. Leukocytosis is resolved. VS stable, no episodes of fever, Tachycardia, or hypotension in last 24h. Blood cultures all NGTD. She has been treated with Zosyn (08/22-), Flagyl (08/24-08/26), and vancomycin (08/25-). - Continue Zosyn, vancomycin for enterococcal coverage - Discontinue flagyl - CTM CBC QD - NPO per surgery recs, liquid medications ok, can advance to clear liquids tomorrow Assessment & Plan (08/26/2018 12:10 PM CDT): CT on 08/24 showed a colonic microperforation, surgery is following and recommends no surgical intervention at this time. Leukocytosis is resolved. One temperature spike to 100.2 yesterday, resolved with Tylenol. VS otherwise stable, no episodes of tachycardia or hypotension in last 24h. Blood cultures all NGTD. She has been treated with Zosyn (08/22-), Flagyl (08/24-), and vancomycin (08/25-). - Continue Zosyn, flagyl, vancomycin - CTM CBC QD - NPO per surgery recs Assessment & Plan (08/25/2018 3:09 PM CDT): Diagnosed diverticulitis on CT imaging with small microperforation. Pain has been difficult to manage, however she has been avoiding pain medications due to fear of constipation; discussion was held about benefits of the medications vs risks. Her WBC increased again today, and she continues to have low grade fevers as well as night sweats. - Continue suppositorires - Continue Zosyn and Flagyl - Given recent hospitalizations will add Vancomycin today - Continue tramadol, morphine, and tylenol for pain control LLQ pain 08/01/2018 08/01/2018 Hypothyroidism 08/01/2018 05/10/2021 Assessment & Plan (06/06/2020 1:06 AM CDT): TSH wnl on 05/10/20. Pt not on levothyroxine. Assessment & Plan (02/27/2019 7:07 AM COIN MACHINE MECHANIC): On home levothyroxine 25mcg PO qD before breakfast. TSH 1.64 (WNL) - Continue Synthroid Assessment & Plan (02/26/2019 7:11 AM COIN MACHINE MECHANIC): On home levothyroxine 25mcg PO qD before breakfast. TSH 1.64 (WNL) - Continue Synthroid Assessment & Plan (02/25/2019 2:15 PM COIN MACHINE MECHANIC): On home levothyroxine 25mcg PO qD before breakfast. Most recent charted TSH: 2.5 - from 03/2017. Per chart review it appears Dr. Ann ordered repeat level at office visit in December, however no result/not collected as of yet. - Continue Synthroid - Recheck TSH level Assessment & Plan (08/29/2018 11:31 AM CDT): - Continue levothyroxine. Assessment & Plan (08/28/2018 1:44 PM CDT): - Continue levothyroxine. Assessment & Plan (08/27/2018 3:09 PM CDT): - Continue levothyroxine. Assessment & Plan (08/26/2018 12:10 PM CDT): - Continue levothyroxine. Assessment & Plan (08/24/2018 2:04 PM CDT): - Continue levothyroxine. Assessment & Plan (08/23/2018 11:49 AM CDT): - Continue levothyroxine. Assessment & Plan (08/22/2018 3:31 PM CDT): - Continue levothyroxine. Sensorineural hearing loss ( SNHL) of both ears 07/12/2018 08/01/2018 Chronic kidney disease-efficiency miner al and bone disorder 06/12/2018 05/11/2020 Typical atrial flutter 04/15/201805/11 Pre-transplant evaluation fo r chronic kidney disease 09/26/2017 05/11/2020 Overview (07/12/2018): Overview: Formatting of this note may be different from the original. Listing date: 12/09/14 Referring Forming Machine Upkeep Mechanic: Jc Moreau Dialysis Type and Start Date: Hemodialysis, (M,W,F) 09/23/09 Blood Type: O- BMI: 35.04 Short H/P summary: 61 yo AA/F with ESRD secondary to DM and HTN. Parathyroidectomy 2016. Extensive health hx. See [facility] for further info. Transplant surgery appt: 09/27/16 - Dr. Bourne and Magda Holder, [facility] Transplant neph appt: 09/27/16- Dr. Saab GI- Dr. Keya Reina: 11/17/16 Assessment and Plan 1. Dysphagia, Schatzki's ring dilated 10/21/16, although not complete relief, pt satisfied with results for now. 2. Hx esophagitis, grade D Oct 2015 and small hiatal hernia, healed on recent egd 3. Hx gastric bypass for obesity and pud 4. Chronic constipation doing well on miralax and dulcolax as needed 5. Colon cancer screening followed by lawn specialist at [place], [place], noted to have 3 polyps 12/2014 (tubular adenoma, tubulovillous adenoma and hyperplastic) - see pre-txp overview on problem list => repeat colonoscopy due 2017 6. Co-morbidities: htn, dm-2, hld, cad, a fib, chf, ESRD on HD, copd, depression, asthma, arthritis, gout, hypothyroidism, lenora on cpap, hx PE and DVT ?? Evaluation Testing Date and Results: Labs: 11/17/16 PTH: 137.9 A1c: 5.0 Glucose: 79 Serologies: Hep B Surf Ab reactive CMV Igg: positive EBV Igg: positive Albumin: 3.8 Tox Screen: negative CPRA: 98% Varicella immune, MMR immune Echo: 11/03/16 (done at [facility]) -?Left ventricle: -?Systolic function was normal. Ejection fraction was estimated to be 55 %. -?There were no regional wall motion abnormalities. -?Wall thickness was normal. -?Mitral valve: -?There was moderate regurgitation -?Left atrium: -?The atrium was moderately dilated -?Tricuspid valve: -?There was mild regurgitation. Systolic pressure was within the normal range. Nuc Med: 11/17/16 The image quality is technically adequate despite breast tissue attenuation and adjacent bowel activity. In the stress and rest images, the left ventricle is normal in size. The stress images show a small sized area of mildly decreased counts in the proximal lateral wall, unchanged at rest images. Gated images show normal myocardial thickening and normal wall motion. The calculated left ventricular ejection fraction is 49%. Impression: 1. No evidence of myocardial infarction or stress-induced ischemia. 2. Small, mild fixed defect in the proximal lateral wall likely represents breast attenuation artifact. 3. Normal left ventricular contractility with mildly reduced calculated left ventricular ejection fraction of 49%. Cardiac Cath: 11/09/15 (done at [facility]) FINDINGS: Left ventriculogram: The left ventricular chamber was not dilated.The anterobasal, anterior apical, inferior, posterobasal, and anterolateral segments showed mild diffuse hypokinesis. Papillary muscles appeared normal. There was no valvular calcification. Ejection fraction was estimated to be around 50%. Coronary dominance: The right coronary artery is dominant as the posteriordescending artery entered from this artery. Left main coronary artery: Normal. Left anterior descendin. Proximal LAD: Normal. 2. Mid LAD: 25% stenosis. 3. Distal LAD: Normal. 4. First diagonal: Normal. 5. Second diagonal: Small vessel normal. Left circumflex: 1. Proximal left circumflex: Normal. 2. Mid left circumflex: Normal. 3. Distal left circumflex: Normal. 4. First obtuse marginal: Large vessel, divides into superior and inferior branches, is normal. 5. Second obtuse marginal: Small vessel, normal. 6. Third obtuse marginal: Small vessel, normal. Right coronary artery: 1. Proximal right coronary artery: Normal. 2. Mid right coronary artery: Normal. 3. Distal right coronary artery: Normal. 4. Posterior descending artery: Small vessel, normal. 5. Posterior LV branch: Small vessel, normal. PRESSURES: Aorta 108/56, left ventricular peak systolic 110, and end-diastolic pressure 12. IMPRESSION: 1. Nonobstructive coronary artery disease. 2. Normal left ventricular systolic function. CXR: 06/01/2016 Mild left basilar atelectasis is seen. There is no evidence of focal consolidation, pleural effusion, or pneumothorax. The cardiac silhouette remains mildly enlarged, unchanged since the prior study. The thoracic aorta is atherosclerotic. The visible osseous structures are intact. Surgical clips superimpose the lower neck. IMPRESSION: Mild left basilar atelectasis. Cardiomegaly, unchanged. CT Chest 03/22/2016 Evaluation of visceral and vascular structures is degraded due to lack of intravenous contrast administration. There is a left-sided three-vessel aortic arch. The main pulmonary artery is normal in caliber. The aorta is atherosclerotic but normal in caliber. Persistent tree-in-bud opacities in the bilateral upper and lower lobes are grossly unchanged. No pleural effusion or focal pleural thickening is identified. There is no evidence of pneumothorax. The trachea is patent and midline. Surgical clips are seen at the thyroid gland. A hypoattenuating nodule in the right thyroid lobe is unchanged. The heart size is normal. No pericardial effusion is present. No mediastinal, supraclavicular, or axillary lymphadenopathy is seen. Postoperative changes are seen at the distal esophagus and stomach. Mild dilatation proximal to the gastroesophageal junction either represents a patulous esophagus or a small hiatal hernia. The gallbladder is surgically absent. The kidneys are atrophic.Hyperattenuating material is seen within the colon. The remainder of the visible upper abdominal viscera appear normal. Bone windows demonstrate no suspicious lytic or blastic lesions. The visible osseous structures are intact. Multilevel degenerative changes are noted in the spine. IMPRESSION: 1. Persistent tree-in-bud opacities in the upper and lower lobes, unchanged since 11/20/2015. Given the chronicity of these findings, further evaluation with bronchoscopy may be helpful to exclude endobronchial spread of infection. (had negative bronchoscopy) 2. Patulous distal esophagus versus small hiatal hernia. Postsurgical changes at the gastroesophageal junction and stomach. Correlation for symptoms of chronic aspiration is recommended. Pano: 11/17/16 Multiple dental restorations are identified, and numerous teeth are absent. No periapical abscess is present. There is no evidence of periosteal reaction. The mandible and temporomandibular joints are intact. IMPRESSION: No evidence of periapical abscess. Ct Abd/pelvis WO contrast: 10/18/16 (Dr. Villalta reviewed images- ok to remain txpd. L side better for txp than R) Evaluation of visceral and vascular structures is degraded due to lack of intravenous contrast administration. The aorta is atherosclerotic and tortuous but normal in caliber. There are mild to moderate atherosclerotic calcifications of both common iliac arteries and internal iliac arteries. No significant atherosclerotic calcification is seen in the left external iliac artery and proximal and mid right external iliac artery. Mild to moderate atherosclerotic calcification is seen in the distal right external iliac artery. Tree-in-bud nodular opacities in the lower lobes are identified which appear calcified representing calcified granulomas. Otherwise the visible lung bases are clear. The heart size is mildly enlarged without pericardial effusion. Other than a small segment 4A cyst, the liver appears normal. The gallbladder is surgically absent. The intrahepatic and extrahepatic bile ducts are nondilated. There is mild thickening of the left adrenal gland without definite nodule. Otherwise the spleen, pancreas, and adrenal glands appear normal. The kidneys are atrophic. Multiple vascular calcifications are seen in the renal tammi and extending towards the calyces. No renal, ureteral, or bladder calculi are visible. There is no evidence of hydronephrosis or hydroureter. There is an unchanged small hiatal hernia. Postsurgical changes along the greater curvature of the stomach are identified. Oral contrast opacifies the colon. There is colonic diverticulosis without evidence of diverticulitis. Otherwise the small bowel and large bowel are normal in caliber without evidence of wall thickening or obstruction. The appendix appears normal without surrounding inflammatory changes. No free air or free fluid is identified within the abdomen. There is no abdominal lymphadenopathy. The urinary bladder is nondistended. The uterus is absent. No free fluid is seen within the pelvis. There is no pelvic lymphadenopathy. Bone windows demonstrate no suspicious lytic or blastic lesions. Schmorl's nodes are seen in the spine. Grade 1 anterolisthesis is identified at L5-S1. IMPRESSION: 1. No significant atherosclerotic calcification in the left external iliac artery and the proximal to mid right external iliac artery. Mild to moderate atherosclerotic calcifications of the distal right external iliac artery, both common iliac arteries, and internal iliac arteries. 2.Diverticulosis. 3. Small hiatal hernia. DEXA 01/26/2016 BONE MINERAL DENSITY (BMD) lumbar spine (L1-4): Normal; T-score -0.2 ?? BONE MINERAL DENSITY (BMD) left hip: Osteopenic; T-score -1.1 ?? FRAX 10 year fracture risk Major osteoporotic fracture: 4.8% Hip fracture: 0.2% PPD: 10/12/16- negative (from dialysis unit- record in [facility]) Colonoscopy: 12/23/14- 3 polyps (Tubular adenoma, tubulovillous adenoma, hyperplastic polyp) (record in [facility]) Upper EGD: 10/21/16 Impression: ? - 4 cm hiatal hernia ? - Non-obstructing Schatzki ring at 35 cm. Dilated. ? - Congestive gastropathy. ? - Erythematous mucosa in the gastric body and antrum. Biopsied. ? - Normal examined duodenum. FINAL DIAGNOSIS: Stomach, biopsy (A): - ??Mild chronic gastritis with reactive change and focal acute inflammation - ??Mild proton pump inhibitor effect - ??Negative for H. Pylori and no intestinal metaplasia Esophagus, biopsy (B): - ??Squamous mucosa with no histopathologic abnormality Mammo: 01/24/17 (done at [facility]- record in [facility]) Impression: No mammographic evidence of malignanct. Recommend routine screening mammography in one year. BI-RADS Category 2: Benign findings. Pap: complete hysterectomy Dental: neg panorex [facility]12/03/15 The patient was placed on the fluoroscopy table in supine position. AP clerk checker images were obtained. A Hoover catheter was placed under sterile technique. The urinary bladder was filled with approximately 100 mL of Omnipaque 240 water soluble contrast by gravity under fluoroscopic observation. The patient was unable to tolerate more filling of the bladder. Images were obtained in AP, oblique, and lateral views. FINDINGS: The bladder is normal in contour. No filling defects were identified. Vesicoureteral reflux was seen on the right to the level of the renal pelvis. Left-sided reflux to the distal ureter was seen. The patient was unable to void for the fluoroscopic exam precluding evaluation of the urethra. There was no post void residual. IMPRESSION: Right vesicoureteral reflux to the kidney. Small capacity bladder. No post void residual. SW: 11/09/16 Clinical Social Work Impression: It is the impression of this social service manager that Moy Leos has several positive factors for Kidney transplant candidacy from a psychosocial perspective. Pt has a good understanding of her disease and motivation for kidney transplant. Pt appears to have adequate insurance for post transplant needs. Pt has identified adequate support system and appropriate discharge plan. No concerns regarding substance abuse identified. ? SW Concerns: 1. Employer status/source of income. 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 Patient reports her daughters are willing to assist financially as needed. Patient in the process of applying for SSDI at present. ?? Plan: plate worker helper to provide supportive services as needed. No f/u indicated at this time.Patient appears to be a reasonable candidate for transplant from a psychosocial perspective. ? SW to continue to educate patient on AKF rules and eligibility as she will no longer qualify for premium assistance after transplant ? Psychiatric Consult Recommended: No ? Transplant Information Assurance Officer: Concepcion Wilkins LMSW RD: 11/09/16 BMI= 35.04, Class I Obesity. Pt remains an ok candidate for Kidney Transplant from a Nutrition Standpoint. ? Recommendations/Interventions: ?? 1. ??Pt was given information on Kidney Transplant Diet to be followed after surgery along with RD contact information (2015) 2. ??Pt instructed to continue to work with Renal ??RD at [facility] on diet and to be compliant. 3. Pt instructed to avoid any further weight gain. Pt verbalized an understanding. Chronic constipation 07/13/2017 021 Assessment & Plan (02/27/2019 7:07 AM COIN MACHINE MECHANIC): Taking linaclotide 145mcg PO qD at home - Continue home linaclotide Assessment & Plan (02/25/2019 3:47 PM COIN MACHINE MECHANIC): Taking linaclotide 145mcg PO qD at home - Continue home linaclotide Assessment & Plan (02/25/2019 2:16 PM COIN MACHINE MECHANIC): Taking linaclotide 145mcg PO qD at home - Continue home linaclotide Pre-transplant evaluation fo r kidney transplant 06/14/2017 12/19/2022 Overview (05/29/2018): Listing date: 12/09/14 Referring Forming Machine Upkeep Mechanic: Jc Moreau Aircraft Navigator: Dialysis Type and Start Date: Hemodialysis, (M,W,F) 09/23/09 Blood Type: O- BMI: 35.08 (based on weight pt told to physical therapy assistant instructor) Short H/P summary: 61 yo AA/F with ESRD secondary to DM and HTN. Parathyroidectomy 2016. Extensive health hx. See [place] for further info. Transplant surgery appt: 09/27/16 - Dr. Bourne and Magda Holder NP Transplant neph appt: 09/27/16- Dr. Saab GI- Dr. Keya Reina: 11/17/16 Assessment and Plan 1. Dysphagia, Schatzki's ring dilated 10/21/16, although not complete relief, pt satisfied with results for now. 2. Hx esophagitis, grade D Oct 2015 and small hiatal hernia, healed on recent egd 3. Hx gastric bypass for obesity and pud 4. Chronic constipation doing well on miralax and dulcolax as needed 5. Colon cancer screening followed by lawn specialist at [place], [place], noted to have 3 polyps 12/2014 (tubular adenoma, tubulovillous adenoma and hyperplastic) - see pre-txp overview on problem list => repeat colonoscopy due 2017 6. Co-morbidities: htn, dm-2, hld, cad, a fib, chf, ESRD on HD, copd, depression, asthma, arthritis, gout, hypothyroidism, lenora on cpap, hx PE and DVT ?? Evaluation Testing Date and Results: Labs: 05/18/18 PTH: 147.3 A1c: 5.5 Glucose: 100 Serologies: Hep B Surf Ab reactive CMV Igg: positive EBV Igg: positive Albumin: 3.9 Tox Screen: negative CPRA: 98% Oxalate: 6.4 Strongyloides: neg Toxo: neg Phos: 2.1 Lipids elevated: total 299, LDL 204, Triglycerides 278 Varicella immune, MMR immune Echo: 11/23/17. - ??History: - ??DVT, SA. - ??Left ventricle: - ??Systolic function was mildly to moderately reduced. Ejection fraction was estimated in the range of 40 % to 45 %. - ??There were no regional wall motion abnormalities. - ??Wall thickness was mildly to moderately increased. - ??Mitral valve: - ??There was moderate regurgitation. - ??Pulmonary arteries: - ??Systolic pressure was at the upper limits of normal. Estimated peak pressure was 35 mmHg. - ??Tricuspid valve: - ??There was mild to moderate regurgitation. ?? Nuc Med: 11/23/17 ++++++++++++++++++++++++++++++++++++ SUMMARY: ++++++++++++++++++++++++++++++++++++ Results for Lexiscan Infusion: 1. Normal with no significant ST-T changes noted. 2. No angina noted. 3. Normal BP and HR response. 4. No arrhythmias noted. ? Results for Nuclear Perfusion Test: Findings: Image quality is technically difficult due to patient motion and breast attenuation. There is a fixed perfusion defect in the anterior wall of the left ventricle myocardium on both rest and post-stress images. Gated SPECT images demonstrate normal left ventricular contractility and wall thickening. Post- exercise left ventricular volume is normal. The post-stress left ventricular ejection fraction is within lower limits of normal at 48%. ? Opinion: 1. Myocardial Perfusion: Normal rest and stress images. Anterior wall breast attenuation is noted, and confounded by motion artifact. 2. Left ventricle: Normal size, wall thickness and lower limits of normal systolic function (post-stress ejection fraction is 48%). Cardiac Cath: 11/09/15 (done at [facility]) FINDINGS: Left ventriculogram: The left ventricular chamber was not dilated.The anterobasal, anterior apical, inferior, posterobasal, and anterolateral segments showed mild diffuse hypokinesis. Papillary muscles appeared normal. There was no valvular calcification. Ejection fraction was estimated to be around 50%. Coronary dominance: The right coronary artery is dominant as the posteriordescending artery entered from this artery. Left main coronary artery: Normal. Left anterior descendin. Proximal LAD: Normal. 2. Mid LAD: 25% stenosis. 3. Distal LAD: Normal. 4. First diagonal: Normal. 5. Second diagonal: Small vessel normal. Left circumflex: 1. Proximal left circumflex: Normal. 2. Mid left circumflex: Normal. 3. Distal left circumflex: Normal. 4. First obtuse marginal: Large vessel, divides into superior and inferior branches, is normal. 5. Second obtuse marginal: Small vessel, normal. 6. Third obtuse marginal: Small vessel, normal. Right coronary artery: 1. Proximal right coronary artery: Normal. 2. Mid right coronary artery: Normal. 3. Distal right coronary artery: Normal. 4. Posterior descending artery: Small vessel, normal. 5. Posterior LV branch: Small vessel, normal. PRESSURES: Aorta 108/56, left ventricular peak systolic 110, and end-diastolic pressure 12. IMPRESSION: 1. Nonobstructive coronary artery disease. 2. Normal left ventricular systolic function. CXR: 05/18/18 Cardiac chambers are enlarged. The aorta is tortuous. A right hemidiaphragm eventration is noted. Mild scarring is noted in the left lung base. Degenerative changes are noted in the thoracic spine. IMPRESSION: Mild cardiomegaly. CT Chest 03/22/2016 Evaluation of visceral and vascular structures is degraded due to lack of intravenous contrast administration. There is a left-sided three-vessel aortic arch. The main pulmonary artery is normal in caliber. The aorta is atherosclerotic but normal in caliber. Persistent tree-in-bud opacities in the bilateral upper and lower lobes are grossly unchanged. No pleural effusion or focal pleural thickening is identified. There is no evidence of pneumothorax. The trachea is patent and midline. Surgical clips are seen at the thyroid gland. A hypoattenuating nodule in the right thyroid lobe is unchanged. The heart size is normal. No pericardial effusion is present. No mediastinal, supraclavicular, or axillary lymphadenopathy is seen. Postoperative changes are seen at the distal esophagus and stomach. Mild dilatation proximal to the gastroesophageal junction either represents a patulous esophagus or a small hiatal hernia. The gallbladder is surgically absent. The kidneys are atrophic.Hyperattenuating material is seen within the colon. The remainder of the visible upper abdominal viscera appear normal. Bone windows demonstrate no suspicious lytic or blastic lesions. The visible osseous structures are intact. Multilevel degenerative changes are noted in the spine. IMPRESSION: 1. Persistent tree-in-bud opacities in the upper and lower lobes, unchanged since 11/20/2015. Given the chronicity of these findings, further evaluation with bronchoscopy may be helpful to exclude endobronchial spread of infection. (had negative bronchoscopy) 2. Patulous distal esophagus versus small hiatal hernia. Postsurgical changes at the gastroesophageal junction and stomach. Correlation for symptoms of chronic aspiration is recommended. Pano: 05/18/18 Multiple dental restorations are identified, and numerous teeth are absent. No acute mandibular fracture is identified. Both temporomandibular joints are intact. No periapical abscess is present. IMPRESSION: No evidence of periapical abscess. Ct Abd/pelvis WO contrast: 05/18/18 (Dr. Villalta reviewed 10/18/16 images- ok to remain txpd. L side better for txp than R) There are some small calcified granulomas seen in the lung bases. Some minimal calcified pleural plaques are noted. There are also some micronodules noted in the right lower lobe measuring 2 to 3 mm please see image 23 series 3. This appears very similar to the prior study. Minimal atelectasis or scarring is seen in the lung bases ?? Multiple subcentimeter hypoattenuating lesions in the liver are too small to characterize but statistically, but could. The liver otherwise appears normal. The gallbladder is surgically absent. The intrahepatic and extrahepatic bile ducts are not dilated. The spleen appears normal. The pancreas and adrenal glands are normal. The kidneys are atrophic, consistent with chronic kidney disease. No urinary calculus or hydronephrosis is seen. ?? No free air or free fluid is identified in the abdomen. There is a small hiatal hernia. The distal esophagus appears normal. Postoperative changes are seen along the greater curvature of the stomach. Contrast is seen within the appendix and large bowel lumen. There is suggestion of possible rectal wall thickening. There is mild colonic diverticulosis without evidence of diverticulitis. Otherwise the small bowel and large bowel are normal in caliber without evidence of wall thickening or obstruction. The appendix appears normal without appendicolith or surrounding inflammatory changes. There is no abdominal lymphadenopathy. The aorta and its major branch vessels are atherosclerotic. There is mild atherosclerotic stenosis of the bilateral renal artery origins. ?? No free fluid is seen in the pelvis. The urinary bladder is distended with fluid and appears normal. The uterus is normal. There is no pelvic lymphadenopathy. ?? Bone windows show no lytic or blastic lesions. The visible osseous structures are intact. Degenerative changes are noted in the spine. There is grade 1 L3-L4 retrolisthesis, unchanged from the prior CT. there are likely Schmorl's nodes seen in the spine along the endplates. There is a new lucent focus seen along the superior endplate of L1 which may represent a Schmorl's node. There is also grade 1 anterolisthesis of L5 on S1. There is likely partial sacralization of the L5 vertebral body on the right. ?? Surgical michael are seen in the soft tissues of the right lower flank (image 108 series 3). ? IMPRESSION: 1. Moderate atherosclerotic stenosis of the bilateral internal iliac arteries. Mild atherosclerotic stenosis of the bilateral renal artery origins. No definite significant calcified atherosclerotic disease is seen in the bilateral external iliac arteries. There are some calcified atherosclerotic plaque seen in the common femoral arteries. 2. Suggestion of rectal wall thickening. Consider sigmoidoscopy and physical exam. DEXA 01/26/2016 BONE MINERAL DENSITY (BMD) lumbar spine (L1-4): Normal; T-score -0.2 ?? BONE MINERAL DENSITY (BMD) left hip: Osteopenic; T-score -1.1 ?? FRAX 10 year fracture risk Major osteoporotic fracture: 4.8% Hip fracture: 0.2% PPD: 10/11/17- negative Colonoscopy: 12/23/14- 3 polyps (Tubular adenoma, tubulovillous adenoma, hyperplastic polyp) (record in [facility]) Upper EGD: 10/21/16 Impression: ? - 4 cm hiatal hernia ? - Non-obstructing Schatzki ring at 35 cm. Dilated. ? - Congestive gastropathy. ? - Erythematous mucosa in the gastric body and antrum. Biopsied. ? - Normal examined duodenum. FINAL DIAGNOSIS: Stomach, biopsy (A): - ??Mild chronic gastritis with reactive change and focal acute inflammation - ??Mild proton pump inhibitor effect - ??Negative for H. Pylori and no intestinal metaplasia Esophagus, biopsy (B): - ??Squamous mucosa with no histopathologic abnormality Mammo: 01/24/17 (done at [facility]- record in [facility]) Impression: No mammographic evidence of malignanct. Recommend routine screening mammography in one year. BI-RADS Category 2: Benign findings. Pap: complete hysterectomy [facility]12/[facility]/15 The patient was placed on the fluoroscopy table in supine position. AP clerk checker images were obtained. A Hoover catheter was placed under sterile technique. The urinary bladder was filled with approximately 100 mL of Omnipaque 240 water soluble contrast by gravity under fluoroscopic observation. The patient was unable to tolerate more filling of the bladder. Images were obtained in AP, oblique, and lateral views. FINDINGS: The bladder is normal in contour. No filling defects were identified. Vesicoureteral reflux was seen on the right to the level of the renal pelvis. Left-sided reflux to the distal ureter was seen. The patient was unable to void for the fluoroscopic exam precluding evaluation of the urethra. There was no post void residual. IMPRESSION: Right vesicoureteral reflux to the kidney. Small capacity bladder. No post void residual. SW: 05/18/18 Clinical Social Work Impression: It is the impression of this social service manager that Moy Leos has several positive factors for Kidney transplant candidacy from a psychosocial perspective. Pt has a good understanding of her disease ??and motivation for kidney transplant. Pt appears to have adequate insurance for post transplant needs. Pt has identified adequate support system and appropriate discharge plan. No concerns regarding substance abuse identified. ? Patient states that she started receiving Social Security Disability which has provided steady income. ? Plan: plate worker helper to provide supportive services as needed. No f/u indicated at this time. ?? Patient appears to be a reasonable candidate for transplant from a psychosocial perspective. ? Psychiatric Consult Recommended: No ? Transplant Information Assurance Officer: Concepcion Wilkins LMSW RD: 05/18/18 24 Hour Recall: 1 fish slider from lindsey yost -pt reports this is a typical day for her, question accuracy as pt talked about other foods she consumes regularly during visit including fruits, vegetables, soups, eggs, Premier Protein supplements ?? Additional Information: question accuracy in pts reports - states she cannot lose wt, 24 hour recall indicating pt eating <1000 kcal/d. Pt also states she follows low Na+ diet, foods named in 24 hour recall are typically high in sodium. ?? BMI= 35.8, obese class II per BMI standards. Pt is considered to be OK candidate for transplant from a nutrition standpoint due to high BMI and questionable diet compliance. ?? Recommendations/Interventions: 1.) Provided pt with additional high PRO, low Na+ diet edu appropriate for HD pt's 2.) Instructed to continue to work with renal RD at HD on diet compliance ?? Jaylin Ruiz, VIN/KAYLA Palpitations 04/27/2017 08/01/2018 Hemodialysis-associated hypotension 04/27/2017 11/10/2020 Assessment & Plan (06/06/2020 1:13 AM CDT): Continue home midodrine 15mg tid before meals. Assessment & Plan (02/27/2019 3:09 PM COIN MACHINE MECHANIC): History of orthostatic hypotension 2/2 HD. On home midodrine 15mg TID AC - Continue home midodrine - Monitor patient BPs Assessment & Plan (02/25/2019 3:47 PM COIN MACHINE MECHANIC): History of orthostatic hypotension 2/2 HD. On home midodrine 15mg TID AC on dialysis days - Continue home midodrine - Monitor patient BPs Assessment & Plan (02/25/2019 2:23 PM COIN MACHINE MECHANIC): History of orthostatic hypotension 2/2 HD. On home midodrine 15mg TID AC on dialysis days - Continue home midodrine - Monitor patient BPs Calciphylaxis 04/27/2017 05/01/2019 Other disorder of calcium metabolism 04/24/2017 08/01/2018 Rotator cuff tear, right 02/09/2017 PAF (paroxysmal atrial fibrillation) 01/06/2017 11/10/2020 Overview (10/20/2020): 8.30.2020 Cecily Bright, RECRUITER SPECIALIST-HYDRAULIC PILE HAMMER OPERATOR Cardiology Excessive anticoagulation 08/15/2016 End stage renal disease 08/15/201604/21 Personal history of other di seases of the circulatory system 08/15/2016 05/11/2020 Typical atrial flutter 08/15/201611/10 Encounter for monitoring amiodarone therapy 04/28/2016 08/01/2018 Dysphagia 04/04/2016 05/11/2020 Unspecified complication of cardiac and vascular prosthetic device, implant and graft, initial encounter 03/31/2016 08/01/2018 Hypertensive chronic kidney disease with stage 5 chronic kidney disease or end stage renal disease 03/31/2016 06/12/2018 Adrenal insufficiency 02/17/20162018 Paroxysmal atrial fibrillation 04/30/2015 05/10/2021 On amiodarone therapy 04/26/20152018 SVT (supraventricular tachycardia) 10/18/2013 05/10/2021 Chronic anticoagulation 10/18/201310/22 Assessment & Plan (11/02/2020 1:37 AM CDT): On chronic eliquis for afib, SVT, and hx of previous VTE. Has been holding since 10/20 for planned cataract surgery, surgery multiply postponed due to hypotension. Plan: - heparin as above - consult cardiology next am, likely should remain on anticoagulation through eye surgery Personal history of other drug therapy 10/18/2013 08/25/2021 ESRD (end stage renal disease) 06/23/2009 09/03/2018 Overview (07/12/2018): M-W-F Chronic combined systolic an d diastolic congestive heart failure 08/20/1996 05/11/2020 Overview (08/22/2018): Since 1996, sees cardiology at [facility]. Assessment & Plan (02/27/2019 3:08 PM COIN MACHINE MECHANIC): Per chart review last Echo November 2017 - showing mild to moderately reduced LV systolic function with EF 40-45 %, [id number] left ventricular wall thickening, moderate MR, moderate TR. No signs of volume overload on examination. Repeat Echo showing decrease in EF to 30%, LV hypokinesis, G1DD - Cardiology consulted and following; appreciate recs - will discuss Echo results with Cards as well as options for managment - Continue home metoprolol succinate XL 12.5mg PO BID Assessment & Plan (02/26/2019 7:04 AM COIN MACHINE MECHANIC): Per chart review last Echo November 2017 - showing mild to moderately reduced LV systolic function with EF 40-45 %, [id number] left ventricular wall thickening, moderate MR, moderate TR. No signs of volume overload on examination today - Cardiology consulted and following; repeat Echo - Continue home metoprolol succinate XL 12.5mg PO BID Assessment & Plan (02/25/2019 2:01 PM COIN MACHINE MECHANIC): Per chart review last Echo November 2017 - showing mild to moderately reduced LV systolic function with EF 40-45 %, [id number] left ventricular wall thickening, moderate MR, moderate TR. No signs of volume overload on examination today - Cardiology consult; consider repeat Echo pending recommendations - continue home metoprolol succinate XL 12.5mg PO BID Assessment & Plan (08/29/2018 11:30 AM CDT): HFrEF due to NICM. VSS. - Continue midodrine, metoprolol. - Monitor for hypotension requiring intervention (baseline 90s/50s, increase to 110s/50s typically with midodrine). Assessment & Plan (08/28/2018 1:44 PM CDT): HFrEF due to NICM. VSS. - Continue midodrine, metoprolol. - Monitor for hypotension requiring intervention (baseline 90s/50s, increase to 110s/50s typically with midodrine). Assessment & Plan (08/27/2018 3:09 PM CDT): HFrEF due to NICM. - Continue midodrine, metoprolol. - Monitor for hypotension requiring intervention (baseline 90s/50s, increase to 110s/50s typically with midodrine). Assessment & Plan (08/26/2018 12:06 PM CDT): HFrEF due to NICM. - Continue midodrine, metoprolol. - Monitor for hypotension requiring intervention (baseline 90s/50s, increase to 110s/50s typically with midodrine). Assessment & Plan (08/25/2018 3:11 PM CDT): History of HFrEF due to NICM. Blood pressures have been mildly hypotensive at times. In the outpatient setting, they have been stable. - Continue midodrine and metoprolol - Continue D5 1/2NS Assessment & Plan (08/24/2018 2:02 PM CDT): HFrEF due to NICM. - Continue midodrine, metoprolol. - Monitor for hypotension requiring intervention (baseline 90s/50s, increase to 110s/50s typically with midodrine). Assessment & Plan (08/23/2018 11:47 AM CDT): HFrEF due to NICM. - Continue midodrine, metoprolol. - Monitor for hypotension requiring intervention (baseline 90s/50s, increase to 110s/50s typically with midodrine). Assessment & Plan (08/22/2018 3:27 PM CDT): HFrEF due to NICM. - Continue midodrine, metoprolol. History of ulcer disease Overview (08/22/2018): From 2003, on PPI. Assessment & Plan (02/27/2019 7:07 AM COIN MACHINE MECHANIC): On home protonix - Continue Protonix 40mg PO qD Assessment & Plan (02/25/2019 3:47 PM COIN MACHINE MECHANIC): On home protonix - Continue Protonix 40mg PO qD Assessment & Plan (02/25/2019 2:04 PM COIN MACHINE MECHANIC): On home protonix - Continue Protonix 40mg PO qD Assessment & Plan (08/29/2018 11:30 AM CDT): - Continue pantoprazole. Assessment & Plan (08/28/2018 1:44 PM CDT): - Continue pantoprazole. Assessment & Plan (08/27/2018 3:09 PM CDT): - Continue pantoprazole. Assessment & Plan (08/26/2018 12:06 PM CDT): - Continue pantoprazole. Assessment & Plan (08/24/2018 2:03 PM CDT): - Continue pantoprazole. Assessment & Plan (08/23/2018 11:48 AM CDT): - Continue pantoprazole. Assessment & Plan (08/22/2018 3:33 PM CDT): - Continue pantoprazole. Asthma 05/11/2020 Assessment & Plan (08/29/2018 11:30 AM CDT): - Continue Flovent - Albuterol nebulizers PRN Assessment & Plan (08/28/2018 1:44 PM CDT): - Continue Flovent - Albuterol nebulizers PRN Assessment & Plan (08/27/2018 3:09 PM CDT): - Continue Flovent - Albuterol nebulizers PRN Assessment & Plan (08/26/2018 12:06 PM CDT): - Continue Flovent - Albuterol nebulizers PRN Assessment & Plan (08/24/2018 2:03 PM CDT): - Continue Flovent - Albuterol nebulizers PRN Assessment & Plan (08/23/2018 11:48 AM CDT): - Continue Flovent - Albuterol nebulizers PRN Assessment & Plan (08/22/2018 3:28 PM CDT): - Continue Flovent - Albuterol nebulizers PRN Essential hypertension 08/01 History of diabetes mellitus 06/21/2023 Overview (08/26/2018): Was on insulin in past, no meds, diet controlled since 02/2010. Assessment & Plan (11/02/2020 1:41 AM CDT): Diet controlled for years, glucose monitoring/LDSSI on last admission resulted in no insulin being given. Plan: - monitor sugars on daily labs Assessment & Plan (06/06/2020 1:03 AM CDT): Diet controlled per chart review. - BG monitoring - LDSSI Assessment & Plan (08/29/2018 11:31 AM CDT): - CTM based on QD BMPs Assessment & Plan (08/28/2018 1:44 PM CDT): - CTM based on QD BMPs Assessment & Plan (08/27/2018 3:09 PM CDT): - CTM based on QD BMPs Assessment & Plan (08/26/2018 12:06 PM CDT): - CTM based on QD BMPs Assessment & Plan (08/25/2018 3:10 PM CDT): Sugars have been stable at home and in the hospital. No longer on outpatient medications. - Continue to monitor daily sugars Assessment & Plan (08/24/2018 2:03 PM CDT): - CTM based on QD BMPs Assessment & Plan (08/23/2018 11:48 AM CDT): - CTM based on QD BMPs Assessment & Plan (08/22/2018 3:30 PM CDT): - Monitor glucose on BMPs, consider LDSSI if needed. Pure hypercholesterolemia Assessment & Plan (02/27/2019 7:07 AM COIN MACHINE MECHANIC): On home Atorvastatin. Last charted lipid profile 9 months ago showing elevated LDL, triglycerides, low HDL Lipid profile showing low HDL (30), elevated TG (152), LDL 119 and Total cholesterol 179, both within acceptable ranges - continue atorvastatin 20mg qHS Assessment & Plan (02/26/2019 7:10 AM COIN MACHINE MECHANIC): On home Atorvastatin. Last charted lipid profile 9 months ago showing elevated LDL, triglycerides, low HDL Lipid profile showing low HDL (30), elevated TG (152), LDL 119 and Total cholesterol 179, both within acceptable ranges - continue atorvastatin 20mg qHS Assessment & Plan (02/25/2019 2:07 PM COIN MACHINE MECHANIC): On home Atorvastatin. Last charted lipid profile 9 months ago showing elevated LDL, triglycerides, low HDL - continue atorvastatin 20mg qHS - lipid profile Assessment & Plan (08/29/2018 11:31 AM CDT): - Continue atorvastatin Assessment & Plan (08/28/2018 1:44 PM CDT): - Continue atorvastatin Assessment & Plan (08/27/2018 3:09 PM CDT): - Continue atorvastatin Assessment & Plan (08/26/2018 12:06 PM CDT): - Continue atorvastatin Assessment & Plan (08/24/2018 2:03 PM CDT): - Continue atorvastatin Assessment & Plan (08/23/2018 11:48 AM CDT): - Continue atorvastatin Assessment & Plan (08/22/2018 3:29 PM CDT): - Continue atorvastatin History of atrial fibrillation 06/12/2018 Postoperative hypothyroidism 06/06/2020 Immunizations Name Administration Dates Next Due BCG CORRECTION, HISTORIC VACCINE 10/16/2019,01/2019,10/11/2017,2016,09/30/2015,10/08/2014,10/07/2013,0 11/10/2012,05/23/2012 COVID MODERNA 12+ yr 50mcg/0.5mL 12/22/2023 COVID PFIZER BIVALENT 12Y+ 30mcg/0.3ML 04/18/2022 Covid Moderna primary monova lent 12+ yr 0.5mL 01/08/2021,04/23/2020,03/23/2020 Covid Pfizer primary monoval ent 12+ yr 0.3mL Purple cap 01/08/2021,04/23/2020,04/02/2020,2020 FLU VACCINE TRI IIV3 SPLIT P F IM (FLUVIRIN) 11/19/2015 INFLUENZA VACCINE 11/23/2022, 3,11/08/2019,2018,11/15/2017,11/09/2016,11/19/2015,0 11/19/2014,10/30/2013,11/10/2012, 012 INFLUENZA VACCINE, ADJUVANTE D, TRIV. (FLUAD TRIVALENT; 65Y+) (AIIV3) 12/03/2021,12/04/2020,11/08/2019,2018,11/15/2017,11/09/2016,11/19/2015,0 11/19/2014,10/30/2013,11/10/2012, 012 PNEUMOCOCCAL PCV VACCINE 09/16/2019,11/26/2014 PNEUMOCOCCAL PPSV23 05/10/2021,09/28/2009 Pneumococcal Pcv13 Conj 07/15/2019 TDAP (7yrs+) 12/11/2018 Zoster Hzv Vacc Recombinant Inj Im 01/07/2020, Social History Tobacco Use Types Packs/Day Years Used Date Smoking Tobacco: Never Smokeless Tobacco: Never Tobacco Cessation:Counseling Given: Not Answered Alcohol Use Standard Drinks/Week Comments No 0 (1 standard drink = 0.6 oz pur e alcohol) AUDIT-C Answer Date Recorded Q1: How often do you have a drink containing alcohol? Never 02/10/2024 Q2: How many drinks containi ng alcohol do you have on a typical day when you are drinking? Patient does not drink Q3: How often do you have si x or more drinks on one occasion? Never 02/10/2024 Overall Financial Resource Strain (CARDIA) Answe r Date Recorded How hard is it for you to pa y for the very basics like food, housing, medical care, and heating? Not hard at all 02/10/2024 PHQ-2 Answer Date Recorded Patient Health Questionnaire-2 Score 0 03/11/2024 [facility] - Occupational Stress Questionnaire Answer Date Recorded Do you feel stress - tense, restless, nervous, or anxious, or unable to sleep at night because your mind is troubled all the time - these days? Not at all 02/10/2024 Hunger Vital Sign Answer Date Recorded Within the past 12 months, y ou worried that your food would run out before you got the money to buy more. Never true 02/10/20 Within the past 12 months, t he food you bought just didn't last and you didn't have money to get more. Never true 02/10/2024 PRAPARE - Transportation Answer Date Re corded In the past 12 months, has l ack of transportation kept you from medical appointments or from getting medications? No 01/21 In the past 12 months, has l ack of transportation kept you from meetings, work, or from getting things needed for daily living? Yes 02/10/2024 Housing Stability Vital Sign Answer Brock e Recorded In the last 12 months, was t here a time when you were not able to pay the mortgage or rent on time? Patient declined 10/05/19 In the last 12 months, how many places have you lived? 1 10/05/2023 In the last 12 months, was t here a time when you did not have a steady place to sleep or slept in a senior care (including now)? Patient declined 10/05/2023 Housing Stability Vital Sign Answer Brock e Recorded In the last 12 months, was t here a time when you were not able to pay the mortgage or rent on time? Yes 02/10/2024 In the past 12 months, how m any times have you moved where you were living? 2 02/10/2024 At any time in the past 12 m onths, were you homeless or living in a senior care (including now)? No 02/10/2024 Education Answer Date Recorded What is the highest level of school you have completed or the highest degree you have received? Doctorate 09/25/2023 Sex and Gender Information Value Date Recorded Sex Assigned at Female 02/14/2020 1:06 PM COIN MACHINE MECHANIC Gender Identity Female 02/14/2020 1:05 PM COIN MACHINE MECHANIC Sexual Orientation Straight 02/14/2020 1: 05 PM COIN MACHINE MECHANIC Last Filed Vital Signs Vital Sign Reading Time Taken Comments Blood Pressure 135/79 03/22/2024 2:00 PM COIN MACHINE MECHANIC Pulse 78 03/22/2024 2:00 PM COIN MACHINE MECHANIC Temperature 36.2 ??C (97.2 ??F) 03/22/2024 1:43 PM CS T Respiratory Rate 15 03/22/2024 2:00 PM COIN MACHINE MECHANIC Oxygen Saturation 98% 03/22/2024 2:00 PM COIN MACHINE MECHANIC Inhaled Oxygen Concentration 28% 02/10/2024 5 :51 AM COIN MACHINE MECHANIC Weight 73.5 kg (162 lb) 03/22/2024 12:55 PM COIN MACHINE MECHANIC Height 158.8 cm (5' 2.5 ) 03/22/2024 12:55 PM CS T Body Mass Index 29.16 03/22/2024 12:55 PM COIN MACHINE MECHANIC Functional Status Functional Status Response Date of Assess ment Is person deaf or have serious hearing difficult y? No 02/10/2024 Is person blind or have serious difficulty seein g? No 02/10/2024 Does person have serious dif ficulty walking/climbing stairs? No 02/10/2024 Does person have difficulty dressing/bathing? Ye s 02/10/2024 Does person have difficulty doing errands alone? Yes 02/10/2024 Cognitive Status Response Date of Assessm ent Does person have difficulty concentrating/remembering/making decisions? No 02/10/2024 Plan of Treatment Upcoming Encounters Date Type Department Care Team (Late st Contact Info) Description 03/29/2024 2:00 PM COIN MACHINE MECHANIC Office Visit [address] [phone] Federico Branham Jr., MD [address] [place] [address] 04/11/2024 10:20 AM COIN MACHINE MECHANIC Office Visit [address] [phone] Federico Branham Jr., MD [address] [place] [address] 04/18/2024 1:00 PM COIN MACHINE MECHANIC Office Visit [facility] [address] [place] [address] [address] [place] [address] Federico Branham Jr., MD [address] [place] [address] Bahman Ann MD [address] [facility] 200 [place] [address] 05/27/2024 10:00 AM CDT Office Visit [facility] - Neurology [address] [place] [address], [place] [phone] Celi Bob PA-C [address] [place] [address] [address] [place] [phone] 05/28/2024 11:15 AM CDT Office Visit [facility] - Ophthalmology [address] [place] [phone] Jaylon Marks MD [address] [place] [address] [place] [phone] 07/16/2024 2:15 PM CDT Office Visit [facility] - Orthopedics [address] [place] [phone] Ryland Fuentes MD [address] [place] [phone] 07/30/2024 10:20 AM CDT Office Visit [facility] - [facility] Medicine [phone] [place] [address] [address] [place] [address] [place] [address] [facility] [address] [place] [address] 08/06/2024 10:20 AM CDT Office Visit [facility] - Podiatry [phone] [place] [address] [address] [place] [address] Devika Rolon DPM [address] [facility] [address] [place] [address] 01/10/2025 10:00 AM COIN MACHINE MECHANIC Office Visit [facility] - GI [address] [facility], [place] [address] Thais Euceda PA-C [address] [facility] [place] [phone] Goals Goal Patient Goal Type Associated Problems Recent Progress Patient-Stated? Author Medication Management General On track( 024 9:50 AM COIN MACHINE MECHANIC) Andra Fonseca, JAMESON Note: Expected end date: ongoing Interventions: Take all medications as prescribed Let your doctor know right away about any changes in your medications Make sure to request a refill of your medication at least one week prior to your last dose Medical Devices Implanted Type Area Coagulating Bath Mixer Device Identifier Shelf Expiration Date Model / Serial / Lot Lens Iol 0 D +18.5 Tulio Mod L Bcnvx - [id number] Implanted:Qty : 1 on 11/05/2020 by Dylan Gil MD at [facility] Right: [employer] 12/03/2024 SN60WF.185 / [id number] / Lens Iol 0 D +18.5 Tulio Mod L Bcnvx - [id number] Implanted:Qty : 1 on 11/19/2020 by Dylan Gil MD at [facility] Left: [employer] 03/22/2022 SN60WF.185 / [id number] / Eit Cif Cage, H 7 Mm, 8 Degree, S Implanted:Qty : 1 on 04/10/2023 by Ryland Fuentes MD at [facility] N/A: Spine Cervical [id number] / / [id number] Eit Cif Cage, H 7mm, 8 Degree, S Implanted:Qty : 1 on 04/10/2023 by Ryland Fuentes MD at [facility] N/A: Spine Cervical [id number] / / [id number] Graft Bone Ac Cnxs Dbm 2.5ml Ptty Rtu - [id number] Implanted:Qty : 1 on 04/10/2023 by Ryland Fuentes MD at [facility] N/A: Spine Cervical [employer] 11/18/20233000-025 / [id number] / Eit Cif Cage, H 6mm, 8 Degree, S Implanted:Qty : 1 on 04/10/2023 by Ryland Fuentes MD at [facility] N/A: Spine Cervical [id number] / / [id number] Description:SWEET POTATO DISINTEGRATOR- EI T Plate Three Lev 54mm Implanted:Qty : 1 on 04/10/2023 by Ryland Fuentes MD at [facility] N/A: Spine Cervical Depuy Spine [id number] / / Screw 4mm 14mm Spne Crv Ant Laura Slf-Tap Implanted:Qty : 4 on 04/10/2023 by Ryland Fuentes MD at [facility] N/A: Spine Cervical Depuy Spine [id number] / / Scrw Variable Selftap 4.0mm X 16.0mm Implanted:Qty : 3 on 04/10/2023 by Ryland Fuentes MD at [facility] N/A: Spine Cervical Depuy Spine [id number] / / Screw 4.5mm 16mm Ovsz Spne Crv Ant Laura Implanted:Qty : 1 on 04/10/2023 by Ryland Fuentes MD at [facility] N/A: Spine Cervical Depuy Spine [id number] / / Graft Bone Infs Bvn Clgn Rhbmp-2 Sm 2.8 Implanted:Qty : 1 on 10/05/2023 by Ryland Fuentes MD at [facility] [employer] 10/21/2024 [id number] / / [id number] Graft Bone Pliafx Prm Bone Fbr 10cc Implanted:Qty : 1 on 10/05/2023 by Ryland Fuentes MD at [facility] N/A: Spine Cervical [employer] [id number] / / Screw 3.5 X 14 Implanted:Qty : 2 on 10/05/2023 by Ryland Fuentes MD at [facility] N/A: Spine Cervical [id number] / [id number] / Screw 3.5 X 12 Implanted:Qty : 6 on 10/05/2023 by Ryland Fuentes MD at [facility] N/A: Spine Cervical [id number] / [id number] / Screw 3.5 X 20 Implanted:Qty : 2 on 10/05/2023 by Ryland Fuentes MD at [facility] N/A: Spine Cervical [id number] / [id number] / Caps Implanted:Qty : 10 on 10/05/2023 by Ryland Fuentes MD at [facility] N/A: Spine Cervical [id number] / [id number] / Rods 70mm Implanted:Qty : 2 on 10/05/2023 by Ryland Fuentes MD at [facility] N/A: Spine Cervical [id number] / [id number] / Dev Clsr 31mm Watchman Flx Pro Lt Atr - [id number] Implanted:Qty : 1 on 02/08/2024 by Lamberto Potts MD at [facility] [employer] [id number] 10/01/2026 [id number] / [id number] / [id number] Explanted Type Area Coagulating Bath Mixer Device Identifier Shelf Expiration Date Model / Serial / Lot Scrw Variable Selftap 4.0mm X 16.0mm Explanted:Qty: 1 on 04/10/2023 by Ryland Fuentes MD at [facility] N/A: Spine Cervical Depuy Spine [id number] / / Procedures Procedure Name Priority Date/Time Associated Diagnosis Comments ECHO JAE COMPLETE W 3D Routine 1:48 PM COIN MACHINE MECHANIC Paroxysmal atrial fibrillation (HCC) CCL DIRECTOR OF SPORTS PERFORMANCE DIAGNOSTIC JAE Routine 03/22/2024 1:25 PM COIN MACHINE MECHANIC CARDIAC EKG ORDER 03/19/2024 11: 00 AM COIN MACHINE MECHANIC XR CHEST 2VW STAT 03/16/2024 4:57 PM COIN MACHINE MECHANIC Acute cough TROPONIN-I HIGH SENSITIVE REFLEX 1HOUR Timed 03/16/2024 4:52 PM COIN MACHINE MECHANIC B-TYPE NATRIURETIC PEPTIDE STAT 03/16/2024 3:32 PM COIN MACHINE MECHANIC TROPONIN-I HIGH SENSITIVE BASELINE + 1HR STAT 03/16/2024 3:32 PM COIN MACHINE MECHANIC PHOSPHORUS BLOOD STAT 03/16/2024 3:32 PM COIN MACHINE MECHANIC COMPREHENSIVE METABOLIC PANEL STAT 03/16/2024 3:32 PM COIN MACHINE MECHANIC CBC W AUTO DIFFERENTIAL STAT 03/16/2024 3:32 PM COIN MACHINE MECHANIC SARS-COV-2 (COVID-19) FLU A/B RSV PCR RAPID STAT 03/16/2024 3:10 PM COIN MACHINE MECHANIC EKG 12-LEAD STAT 03/16/2024 2:48 PM COIN MACHINE MECHANIC Shortness of breath CBC W AUTO DIFFERENTIAL Routine 03/15/2024 8:45 AM COIN MACHINE MECHANIC Presence of Watchman left atrial appendage closure device Atrial fibrillation, unspecified type (HCC) BASIC METABOLIC PANEL (CALCIUM TOTAL) Routine 03/15/2024 8:45 AM COIN MACHINE MECHANIC Presence of Watchman left atrial appendage closure device Atrial fibrillation, unspecified type (HCC) XR CERVICAL SPINE 2 OR 3VW Routine 03/12/2024 2:45 PM COIN MACHINE MECHANIC S/P cervical spinal fusion APHERESIS/TRANSFUSION ORDER 02/19/2024 1:25 PM COIN MACHINE MECHANIC PREPARE RBC LEUKOREDUCED UNIT Routine 02/11/2024 1:17 AM COIN MACHINE MECHANIC HEMOGLOBIN A1C Routine 02/10/2024 1:08 AM COIN MACHINE MECHANIC EKG 12-LEAD Routine 02/09/2024 7:42 PM COIN MACHINE MECHANIC Paroxysmal atrial fibrillation (HCC) GLUCOSE - POINT OF CARE Routine 02/09/2024 7:34 PM COIN MACHINE MECHANIC HEPATITIS B SURFACE ANTIGEN W RFLX CONFIRMATION STAT 02/09/2024 12:34 PM COIN MACHINE MECHANIC HEMODIALYSIS INPATIENT Routine 12:02 PM COIN MACHINE MECHANIC MAGNESIUM BLOOD Routine 02/09/2024 9:04 AM COIN MACHINE MECHANIC RENAL FUNCTION PANEL Routine 02/09/2024 9:04 AM COIN MACHINE MECHANIC CBC W/O DIFFERENTIAL Routine 02/09/2024 9:04 AM COIN MACHINE MECHANIC GLUCOSE - POINT OF CARE Routine 02/09/2024 8:47 AM COIN MACHINE MECHANIC GLUCOSE - POINT OF CARE Routine 02/09/2024 8:12 AM COIN MACHINE MECHANIC EKG 12-LEAD Routine 02/09/2024 8:11 AM COIN MACHINE MECHANIC Chest pain, unspecified type ACT LR - POCT ([facility]) Routine 02/08/2024 6:03 PM COIN MACHINE MECHANIC GLUCOSE - POINT OF CARE Routine 02/08/2024 5:52 PM COIN MACHINE MECHANIC CCL LEFT ATRIAL APPENDAGE CLOSURE Routine 02/08/2024 5:28 PM COIN MACHINE MECHANIC Paroxysmal atrial fibrillation (HCC) ACT LR - POCT ([facility]) Routine 02/08/2024 5:21 PM COIN MACHINE MECHANIC ACT LR - POCT ([facility]) Routine 02/08/2024 5:13 PM COIN MACHINE MECHANIC ENDOTRACHEAL TUBE NOTE Routine 3:52 PM COIN MACHINE MECHANIC ECHO JAE PROCEDURAL Routine 02/08/2024 3 :35 PM COIN MACHINE MECHANIC Paroxysmal atrial fibrillation (HCC) ANTIBODY IDENTIFICATION Routine 02/08/2024 2:07 PM COIN MACHINE MECHANIC ALEAH DIRECT Routine 02/08/2024 2:07 PM COIN MACHINE MECHANIC TYPE + SCREEN PANEL STAT 02/08/2024 2 :07 PM COIN MACHINE MECHANIC CBC W/O DIFFERENTIAL [place] 02/08/2024 2:07 PM COIN MACHINE MECHANIC HFrEF (heart failure with reduced ejection fraction) (HCC) BASIC METABOLIC PANEL (CALCIUM TOTAL) [place] 02/08/2024 2:07 PM COIN MACHINE MECHANIC HFrEF (heart failure with reduced ejection fraction) (HCC) CCL DIRECTOR OF SPORTS PERFORMANCE DIAGNOSTIC JAE Routine 01/01/2024 3:12 PM COIN MACHINE MECHANIC ECHO JAE COMPLETE Routine 01/01/2024 3:1 1 PM COIN MACHINE MECHANIC Pre-procedural cardiovascular examination BASIC METABOLIC PANEL (CALCIUM TOTAL) STAT 01/01/2024 1:55 PM COIN MACHINE MECHANIC Atrial fibrillation, unspecified type (HCC) CBC W AUTO DIFFERENTIAL STAT 01/01/2024 1:55 PM COIN MACHINE MECHANIC Atrial fibrillation, unspecified type (HCC) EKG 12-LEAD Routine 01/01/2024 1:39 PM COIN MACHINE MECHANIC Atrial fibrillation, unspecified type (HCC) IMMUNOFIXATION BLOOD Routine 12/28/2023 3:26 PM COIN MACHINE MECHANIC NICM (nonischemic cardiomyopathy) (HCC) FL SWALLOWING FUNCTION STUDY Routine 12/28/2023 2:32 PM COIN MACHINE MECHANIC Oropharyngeal dysphagia IMMUNOFIXATION BLOOD Routine 12/27/2023 11:51 AM COIN MACHINE MECHANIC CBC W AUTO DIFFERENTIAL Routine 12/27/2023 11:51 AM COIN MACHINE MECHANIC NICM (nonischemic cardiomyopathy) (HCC) COMPREHENSIVE METABOLIC PANEL Routine 12/27/2023 11:51 AM COIN MACHINE MECHANIC NICM (nonischemic cardiomyopathy) (HCC) KAPPA/LAMBDA LITE CHAIN FREE PANEL Routine 12/27/2023 11:51 AM COIN MACHINE MECHANIC NICM (nonischemic cardiomyopathy) (HCC) HEPATITIS C AB SCREEN RFLX NAAT QUANT STAT 10/18/2023 4:48 PM CDT MAMMO BILAT SCREENING Routine 10/13/2021 Screening mammogram for breast cancer ENDOSCOPY, COLON, DIAGNOSTIC Routine 12/31/2020 8:24 AM COIN MACHINE MECHANIC DEXA BONE DENSITY AXIAL SKELETON Routine 01/26/2016 9:02 AM COIN MACHINE MECHANIC from Last 3 Months or Most Recently Relevant to Health Maintenance Results * ECHO JAE COMPLETE W 3D (03/22/2024 1:48 PM COIN MACHINE MECHANIC) Only the most recent of2 resultswithin the time period is included. MV pk maryam regurg 419.135 cm/s [facility] FUJI PACS MR VTI 172.886 cm [facility] CV FUJ I PACS Anatomical Region Laterality Modality Ultrasound 03/22/2024 12:5 6 PM COIN MACHINE MECHANIC Narrative 03/22/2024 5:03 PM COIN MACHINE MECHANIC Summary ??* Watchman device is well positioned within the left atrial appendage with no dominic-device leak. No external thrombus present. ??* Left ventricular systolic function is mildly reduced with an estimated ejection fraction of 45-50% by visual estimate. ??* The left ventricle is normal in size, with mildly reduced systolic function. ??* Right ventricle is normal in size with normal systolic function. ??* The left atrium is dilated. ??* Agitated saline contrast study at rest and with abdominal pressure is negative for a gusdy-ez-wzdp shunt. ??* There is moderate mitral valve regurgitation. ??* The ascending aorta is mildly dilated at 3.8 cm. ??* Atherosclerotic plaque in the thoracic aortic arch and descending aorta. Patient Info Name: ? Moy Leos Age: ? 68 years : ? 1955 Gender: ? Female Accession #: ? [id number] Ht: ? 62 in Wt: ? 162 lb BSA: ? 1.82 m2 BP: ? 135 / ? 83 mmHg Exam Date: ? 03/22/2024 12:56 PM Patient Status: ? MDB Study Site: ? [facility] Primary Location: ? [facility] EStudy Info Technical Quality: ? Good Exam Type: ? ECHO JAE COMPLETE W 3D Indications ?I48.0 - Paroxysmal atrial fibrillation (HCC) Contrast/Agitated Saline Contrast / Saline: ? Agitated Saline Amount: ? --- ml Reaction to Contrast: ? no * A 2D, 3D, color Doppler and spectral Doppler transesophageal echocardiogram was performed with a Bubble Study. ??* 3D postprocessing with interpretation, not performed at an independent workstation. JAE alone did not provide sufficient details of left atrial appendage occlusive device, and 3D imaging was indicated. 3D rendering showed complete occlusion with watchman device. Staff Referring Physician: ? Bahman Ann Ordering Provider: ? Bahman Ann Attending Physician: ? Bahman Ann Company Accountant: ? Falguni Belle Nurse: ? Pura Joshiones Performing Physician: ? Bahman Ann Medications ??* Sedation administered and monitored by anesthesia staff. Procedure Details ??The patient arrived in a fasting state after obtaining informed consent. The transesophageal probe was passed without difficulty into the posterior pharynx, mid-esophagus, distal esophagus, and gastric fundus. ??Imaging was performed at multiple levels. ??The patient tolerated the procedure well and there were no complications. ??The patient was transferred out of the examination area in satisfactory condition. Left Ventricle ??The left ventricle is normal in size. Left ventricular systolic function is mildly reduced. There is no increased left ventricular wall thickness. Left ventricular segmental wall motion is normal. Left ventricular systolic function is mildly reduced with an estimated ejection fraction of 45-50% by visual estimate. Right Ventricle ??The right ventricle is normal in size. Right ventricular systolic function is normal. Left Atrium ??The left atrium is dilated. Right Atrium ??The right atrium is normal in size. Atrial Septum ??Intact interatrial septum visualized by color Doppler, 2D and color Doppler and agitated saline imaging. Agitated saline contrast study at rest and with abdominal pressure is negative for a wqzex-fj-yoog shunt. Atrial Appendage ??Watchman device is well positioned within the left atrial appendage with no dominci-device leak. No external thrombus present. Aortic Valve ??The aortic valve is trileaflet. There is no aortic valve stenosis. There is no aortic valve regurgitation. Pulmonic Valve ??The pulmonic valve is normal. There is no pulmonic valve stenosis. There is no significant pulmonic regurgitation. Mitral Valve ??The mitral valve is normal. There is no mitral valve stenosis. There is moderate mitral valve regurgitation. Tricuspid Valve ??The tricuspid valve is normal. There is no tricuspid valve stenosis. There is mild tricuspid valve regurgitation. Pericardium/Pleural ??There is no pericardial effusion. Inferior Vena Cava ??The inferior vena cava is not well visualized and therefore the right atrial pressure is assumed to be 8 mmHg. Aorta ??The aortic root at the sinus of Valsalva is normal in size. The ascending aorta is mildly dilated at 3.8 cm. Atherosclerotic plaque in the thoracic aortic arch and descending aorta. Measurements Tricuspid Valve Name ? Value ?Normal Estimated PAP/RSVP RA Pressure ? 8 mmHg ? <=5 Report Signatures Finalized by Bahman Ann on 03/22/2024 05:03 PM Procedure Note Bahman Ann MD - 03/22/2024 Summary * Watchman device is well positioned within the left atrial appendagewith no dominic-device leak. No external thrombus present. * Left ventricular systolic function is mildly reduced with anestimated ejection fraction of 45-50% by visual estimate. * The left ventricle is normal in size, with mildly reduced systolic function. * Right ventricle is normal in size with normal systolic function. * The left atrium is dilated. * Agitated saline contrast study at rest and with abdominal pressureis negative for a occzv-gr-uhty shunt. * There is moderate mitral valve regurgitation. * The ascending aorta is mildly dilated at 3.8 cm. * Atherosclerotic plaque in the thoracic aortic arch and descendingaorta. Patient Info Name: Moy Leos Age: 68 years : 1955 Gender: Female Ht: 62 in Wt: 162 lb BSA: 1.82 m2 BP: 135 / 83 mmHg Exam Date: 03/22/2024 12:56 PM Patient Status: [place] Study Site: [facility] Primary Location: [facility] EStudy Info Technical Quality: Good Exam Type: ECHO JAE COMPLETE W 3D Indications I48.0 - Paroxysmal atrial fibrillation (HCC) Contrast/Agitated Saline Contrast / Saline: Agitated Saline Amount: --- ml Reaction to Contrast: no * A 2D, 3D, color Doppler and spectral Doppler transesophagealechocardiogram was performed with a Bubble Study. * 3D postprocessing with interpretation, not performed at anindependent workstation. JAE alone did not provide sufficient details of left atrial appendage occlusive device, and 3D imaging was indicated. 3D renderingshowed complete occlusion with watchman device. Staff Referring Physician: Bahman Ann Ordering Provider: Bahman Ann Attending Physician: Bahman Ann Company Accountant: Falguni Belle Nurse: Pura Cox Performing Physician: Bahman Ann Medications * Sedation administered and monitored by anesthesia staff. Procedure Details The patient arrived in a fasting state after obtaining informedconsent. The transesophageal probe was passed without difficulty into theposterior pharynx, mid-esophagus, distal esophagus, and gastric fundus. Imagingwas performed at multiple levels. The patient tolerated the procedure welland there were no complications. The patient was transferred out of the examination area in satisfactory condition. Left Ventricle The left ventricle is normal in size. Left ventricular systolic functionis mildly reduced. There is no increased left ventricular wall thickness.Left ventricular segmental wall motion is normal. Left ventricular systolic function is mildly reduced with an estimated ejection fraction of 45-50%by visual estimate. Right Ventricle The right ventricle is normal in size. Right ventricular systolicfunction is normal. Left Atrium The left atrium is dilated. Right Atrium The right atrium is normal in size. Atrial Septum Intact interatrial septum visualized by color Doppler, 2D and colorDoppler and agitated saline imaging. Agitated saline contrast study at rest andwith abdominal pressure is negative for a nlgrv-zx-zmox shunt. Atrial Appendage Watchman device is well positioned within the left atrial appendage withno dominic-device leak. No external thrombus present. Aortic Valve The aortic valve is trileaflet. There is no aortic valve stenosis. Thereis no aortic valve regurgitation. Pulmonic Valve The pulmonic valve is normal. There is no pulmonic valve stenosis. Thereis no significant pulmonic regurgitation. Mitral Valve The mitral valve is normal. There is no mitral valve stenosis. Thereis moderate mitral valve regurgitation. Tricuspid Valve The tricuspid valve is normal. There is no tricuspid valve stenosis.There is mild tricuspid valve regurgitation. Pericardium/Pleural There is no pericardial effusion. Inferior Vena Cava The inferior vena cava is not well visualized and therefore the rightatrial pressure is assumed to be 8 mmHg. Aorta The aortic root at the sinus of Valsalva is normal in size. Theascending aorta is mildly dilated at 3.8 cm. Atherosclerotic plaque in thethoracic aortic arch and descending aorta. Measurements Tricuspid Valve Name Value Normal Estimated PAP/RSVP RA Pressure 8 mmHg <=5 Report Signatures Finalized by Bahman Ann on 03/22/2024 05:03 PM Bahman Ann MD ECHO CUPID * CCL DIRECTOR OF SPORTS PERFORMANCE DIAGNOSTIC JAE (03/22/2024 1:25 PM COIN MACHINE MECHANIC) Only the most recent of3 resultswithin the time period is included. Anatomical Region Laterality Modality X-Ray Angiograph y Narrative 03/22/2024 1:37 PM COIN MACHINE MECHANIC This case was auto-finalized by a system utility. The result for this JAE exam is stored on the other JAE procedure. Please see the other line in chart review for the result. Bahman Ann MD CV CARDIAC CATH CUPID PROCS * CARDIAC EKG ORDER (03/19/2024 11:00 AM COIN MACHINE MECHANIC) Narrative 03/19/2024 11:00 AM COIN MACHINE MECHANIC Ordered by an unspecified provider. Scanned Document CARDIAC SERVICES ORD ERABLES * XR CHEST 2VW (03/16/2024 4:57 PM COIN MACHINE MECHANIC) Anatomical Region Laterality Modality Chest Digital Radiogra phy 03/16/2024 5:02 PM COIN MACHINE MECHANIC Impressions 03/16/2024 11:43 PM COIN MACHINE MECHANIC IMPRESSION: There is a right IJ approach tunneled dialysis catheter which terminates in the right atrium. Hazy opacity in the bilateral mid lung zone may represent atelectasis and/or airspace disease. There is no pleural effusion or pneumothorax. The heart is enlarged. Atherosclerotic calcifications of the aortic arch. The mediastinal silhouette is normal. Postsurgical changes of an ACDF. There is likely a small hiatal hernia. > Dictated by Ariel Crain DO (Insurance And Benefits Clerk), 03/16/2024 5:05 PM. IIris MD have personally reviewed and interpreted this examination/study. > Interpreting Provider: Iris Carbajal MD on 03/16/2024 11:43 PM Narrative 03/16/2024 11:43 PM COIN MACHINE MECHANIC PROCEDURE: ??XR CHEST 2VW, DATE/TIME OF EXAM: ??03/16/2024 4:58 PM, LOCATION [facility] INDICATION: R05.1: Acute cough ADDITIONAL CLINICAL INFORMATION: Ordering Provider Reason For Exam: ??r/o pneumonia COMPARISON: Chest x-ray 10/09/2023 Procedure Note Iris Carbajal MD - 03/16/2024 PROCEDURE: XR CHEST 2VW, DATE/TIME OF EXAM: 03/16/2024 4:58 PM, LOCATION [facility] INDICATION: R05.1: Acute cough ADDITIONAL CLINICAL INFORMATION: Ordering Provider Reason For Exam: r/o pneumonia COMPARISON: Chest x-ray 10/09/2023 IMPRESSION: There is a right IJ approach tunneled dialysis catheter which terminatesin the right atrium. Hazy opacity in the bilateral mid lung zone may represent atelectasis and/or airspace disease. There is no pleural effusion or pneumothorax.The heart is enlarged. Atherosclerotic calcifications of the aortic arch.The mediastinal silhouette is normal. Postsurgical changes of an ACDF. Thereis likely a small hiatal hernia. > Dictated by Ariel Crain DO (Insurance And Benefits Clerk), 03/16/2024 5:05PM. I, Iris Carbajal MD have personally reviewed and interpreted this examination/study. > Interpreting Provider: Iris Carbajal MD on 03/16/2024 11:43 PM [facility] I MAGING ORDERABLES * (ABNORMAL) TROPONIN-I HIGH SENSITIVE REFLEX 1HOUR (03/16/2024 4:52 PM COIN MACHINE MECHANIC) Troponin I High Sensitive 179(H) <=14 ng/L 03/16/2024 6:19 PM COIN MACHINE MECHANIC [facility] Delta Troponin I HS <0 <6 ng/L 03/16/2024 6:19 PM COIN MACHINE MECHANIC [facility] Blood BLOOD SPECIMEN / Unknown Venipuncture / Unknown 03/16/2024 4:52 PM COIN MACHINE MECHANIC 03/16/2024 5:40 PM COIN MACHINE MECHANIC Debbi Peralta [facility] - CHEMIS TRY ORDERABLES [address] [address], [facility] [phone] * (ABNORMAL) TROPONIN-I HIGH SENSITIVE BASELINE + 1HR (03/16/2024 3:32 PM COIN MACHINE MECHANIC) Troponin I High Sensitive 305(HH) <=14 ng/L 03/16/2024 4:29 PM COIN MACHINE MECHANIC [facility] Blood BLOOD SPECIMEN / Unknown Venipuncture / Unknown 03/16/2024 3:32 PM COIN MACHINE MECHANIC 03/16/2024 3:42 PM COIN MACHINE MECHANIC Debbi Peralta [facility] - CHEMIS TRY ORDERABLES [address] [address], [place] [phone] * (ABNORMAL) CBC W AUTO DIFFERENTIAL (03/16/2024 3:32 PM COIN MACHINE MECHANIC) Only the most recent of4 resultswithin the time period is included. WBC 6.9 4.0 - 10.7 x10E9/L 03/16/2024 3:[address] [facility] RBC Count 3.07(L) 3.90 - 5.20 x10E12/L 03/16/2024 3:[address] [facility] Hemoglobin 8.5(L) 11.9 - 15.8 g/dL 03/16/2024 3:[address] [facility] Hematocrit 27.3(L) 34.8 - 46.1 % 03/16/2024 3:[address] [facility] MCV 88.9 80.0 - 98.0 fL 03/16/2024 3:[address] [facility] MCH 27.7 26.7 - 33.6 pg 03/16/2024 3:[address] [facility] MCHC 31.1(L) 31.7 - 36.3 g/dL 03/16/2024 3:[address] [facility] RDW-CV 16.3(H) 11.3 - 14.8 % 03/16/2024 3:[address] [facility] Platelet Count 260 150 - 420 x10E9/L 03/16/2024 3:[address] [facility] MPV 9.7 7.8 - 11.4 fL 03/16/2024 3:[address] [facility] Neutrophil % 63.4 41.0 - 74.0 % 03/16/2024 3:[address] [facility] Lymphocyte % 15.8(L) 17.0 - 47.0 % 03/16/2024 3:[address] [facility] Monocyte % 12.5(H) 3.0 - 11.0 % 03/16/2024 3:[address] [facility] Eosinophil % 6.7 0.0 - 7.0 % 03/16/2024 3:[address] [facility] Basophil % 0.4 0.0 - 1.6 % 03/16/2024 3:[address] [facility] Immature Granulocytes % 1.2(H) 0.0 - 1.0 % 03/16/2024 3:[address] [facility] Neutrophil Absolute 4.37 1.60 - 7.50 x10E9/L 03/16/2024 3:[address] [facility] Lymphocyte Absolute 1.09 1.00 - 4.40 x10E9/L 03/16/2024 3:[address] [facility] Monocyte Absolute 0.86 0.15 - 1.00 x10E9/L 03/16/2024 3:[address] [facility] Eosinophil Absolute 0.46 0.00 - 0.60 x10E9/L 03/16/2024 3:[address] [facility] Basophil Absolute 0.03 0.00 - 0.13 x10E9/L 03/16/2024 3:[address] [facility] NRBC 0.3(H) <=0.0 /100 WBC 03/16/2024 3:[address] [facility] Blood BLOOD SPECIMEN / Unknown Venipuncture / Unknown 03/16/2024 3:32 PM COIN MACHINE MECHANIC 03/16/2024 3:[address] [facility] Debbi Peralta RECRUITER SPECIALIST-HYDRAULIC PILE HAMMER OPERATOR LAB - HEMATO LOGY ORDERABLES [facility] [address] [place] [address], [facility] [phone] * (ABNORMAL) B-TYPE NATRIURETIC PEPTIDE (03/16/2024 3:32 PM COIN MACHINE MECHANIC) BNP 620(H) <100 pg/mL 03/16/2024 4:[address] [facility] Comment: A decision threshold of 100 pg/mL has been demonstrated to provide the maximal combination of sensitivity, specificity and predictive value for the diagnosis of congestive heart failure (CHF). ??Virtually all patients with no evidence of CHF have BNP values less than 100 pg/mL. A BNP value greater than 100 pg/mL is consistent with the diagnosis of CHF in the appropriate clinical setting. In a study of 693 patients (male and female) with diagnosed CHF, the following values were determined based on the NYHA functional classification system: NYHA Functional Class ?Mean Valule (pg/mL) ? % >100 pg/mL ?I ?320 ? 58.1 ?II ? 432 ? 73.0 ?III ?656 ? 79.0 ?IV ?1635 ? 98.3 ? Blood BLOOD SPECIMEN / Unknown Venipuncture / Unknown 03/16/2024 3:32 PM COIN MACHINE MECHANIC 03/16/2024 3:41 PM COIN MACHINE MECHANIC Debbi Peralta RECRUITER SPECIALIST-HYDRAULIC PILE HAMMER OPERATOR LAB - CHEMIS TRY ORDERABLES Performing Organization Address [facility] Co de Phone Number [facility] [address] [place] [address], [facility] [phone] * (ABNORMAL) COMPREHENSIVE METABOLIC PANEL (03/16/2024 3:32 PM COIN MACHINE MECHANIC) Only the most recent of2 resultswithin the time period is included. BUN 32(H) 7 - 26 mg/dL 03/16/2024 4:29 PM COIN MACHINE MECHANIC [facility] Creatinine 7.76(H) 0.56 - 0.96 mg/dL 03/16/2024 4:[address] [facility] Sodium 141 136 - 145 mmol/L 03/16/2024 4:[address] [facility] Potassium 4.6(H) 3.5 - 4.5 mmol/L 03/16/2024 4:[address] [facility] Comment:Hemolysis detected i n this specimen. Hemolysis may cause false elevations in potassium leading to pseudohyperkalemia or masked hypokalemia. Recommend repeat testing if clinically indicated. Chloride 102 98 - 107 mmol/L 03/16/2024 4:[address] [facility] CO2 24 22 - 29 mmol/L 03/16/2024 4:[address] [facility] Glucose 80 70 - 99 mg/dL 03/16/2024 4:[address] [facility] Calcium 10.0 8.4 - 10.2 mg/dL 03/16/2024 4:[address] [facility] Protein Total 7.8 6.0 - 8.3 g/dL 03/16/2024 4:[address] [facility] Comment:Hemolysis detected i n this specimen. Hemolysis is known to cause elevations in this analyte. Caution should be exercised in the interpretation of this result. Recommend repeat testing if clinically indicated. Albumin 3.3(L) 3.4 - 5.0 g/dL 03/16/2024 4:[address] [facility] Bilirubin Total 0.6 0.2 - 1.2 mg/dL 03/16/2024 4:[address] [facility] Alkaline Phosphatase 142 40 - 150 U/L 03/16/2024 4:[address] [facility] ALT 7 5 - 55 U/L 03/16/2024 4:[address] [facility] AST 42(H) 5 - 34 U/L 03/16/2024 4:[address] [facility] Comment:Hemolysis detected i n this specimen. Hemolysis is known to cause elevations in this analyte. Caution should be exercised in the interpretation of this result. Recommend repeat testing if clinically indicated. Anion Gap 15 6 - 16 03/16/2024 4:[address] [facility] BUN/Creatinine Ratio 4(L) 7 - 23 02/21 4:[address] [facility] Osmolality Calculated 298(H) 275 - 295 mOsm/kg 03/16/2024 4:[address] [facility] Albumin/Globulin Ratio 0.7(L) 1.1 - 2.3 03/16/2024 4:[address] [facility] eGFR by CKD-EPI 5(L) >=90 mL/min/1 .73 m2 03/16/2024 4:[address] [facility] Blood BLOOD SPECIMEN / Unknown Venipuncture / Unknown 03/16/2024 3:32 PM COIN MACHINE MECHANIC 03/16/2024 3:42 PM COIN MACHINE MECHANIC Debbi Peralta RECRUITER SPECIALIST-HYDRAULIC PILE HAMMER OPERATOR LAB - CHEMIS TRY ORDERABLES [address] [address], [facility] [phone] * PHOSPHORUS BLOOD (03/16/2024 3:32 PM COIN MACHINE MECHANIC) Phosphorus 4.8 2.9 - 5.1 mg/dL 03/16/2024 4:[address] [facility] Blood BLOOD SPECIMEN / Unknown Venipuncture / Unknown 03/16/2024 3:32 PM COIN MACHINE MECHANIC 03/16/2024 3:42 PM COIN MACHINE MECHANIC Debbi Peralta RECRUITER SPECIALIST-HYDRAULIC PILE HAMMER OPERATOR LAB - CHEMIS TRY ORDERABLES [address] [address], [place] [phone] * (ABNORMAL) SARS-COV-2 (COVID-19) FLU A/B RSV PCR RAPID (03/16/2024 3:10 PM COIN MACHINE MECHANIC) COVID-19 PCR Not detected Not detected 03/16/19 3:[address] [facility] Influenza A PCR Detected(A) Not detected 03/16/2024 3:[address] [facility] Influenza B PCR Not detected Not detected 03/16/2024 3:[address] [facility] RSV PCR Not detected Not detected 03/16/2024 3:[address] [facility] Microbiology SPECIMEN FROM NASOPHARYNGEAL STRUCTURE / Unknown Collection / Unknown 03/16/2024 3:10 PM COIN MACHINE MECHANIC 03/16/2024 3:15 PM COIN MACHINE MECHANIC Narrative [facility] - 03/16/2024 3:58 PM COIN MACHINE MECHANIC Droplet Precautions Required. This nucleic acid amplification assay has been authorized by the Food and Drug administration (FDA) under an Emergency??Use Authorization (EUA).?? This test is only authorized for the duration of time the declaration that circumstances exist justifying the authorization of emergency use of in vitro diagnostic tests for detection of SARS-CoV-2 virus and/or diagnosis of COVID-19 infection under section 564(b)(1) of the Act, 21 U.S.C 360bbb-3 (b)(1), unless the authorization is terminated or revoked sooner. Fact Sheets for this EUA assay are available upon request. Debbi Peralta RECRUITER SPECIALIST-HYDRAULIC PILE HAMMER OPERATOR LAB - MICROB IOLOGY ORDERABLES [facility] [address] [place] [address], [facility] [phone] * EKG 12-LEAD (03/16/2024 2:48 PM COIN MACHINE MECHANIC) Only the most recent of4 resultswithin the time period is included. Ventricular Rate 87 BPM SL MUSE Atrial Rate 87 BPM [facility] MUSE P-R Interval 152 ms [facility] MUSE QRS Duration ms 118 ms [facility] MUSE Q-T Interval ms 400 ms [facility] MUSE QTC Calculation (Bezet) 481 ms [facility] MUSE Calculated P [place] 69 degrees [facility] MUSE Calculated R [place] -43 degrees [facility] MUSE Calculated T [place] 98 degrees [facility] MUSE Interpretation EKG NORMAL SINUS RHYTHM WITH SINUS ARRHYTHMIA LEFT AXIS DEVIATION MINIMAL VOLTAGE CRITERIA FOR LVH, MAY BE NORMAL VARIANT ( [place] product ) ANTEROSEPTAL INFARCT (CITED ON OR BEFORE 01-JAN-2024) ABNORMAL ECG WHEN COMPARED WITH ECG OF 09-FEB-2024 19:42, SIGNIFICANT CHANGES HAVE OCCURRED Confirmed by SENTHIL LANCE MD ([id number]) on 03/18/2024 8:05:11 AM [facility] MUSE 03/16/2024 2:48 PM COIN MACHINE MECHANIC 03/18/2024 8:05 AM COIN MACHINE MECHANIC Debbi Peralta RECRUITER SPECIALIST-HYDRAULIC PILE HAMMER OPERATOR ECG ORDERABL ES [facility] MUSE * (ABNORMAL) BASIC METABOLIC PANEL (BMP) (03/15/2024 8:45 AM COIN MACHINE MECHANIC) Only the most recent of3 resultswithin the time period is included. Glucose 91 70 - 99 mg/dL [facility] INSURANCE BILL BUN 16 8 - 27 mg/dL [facility] INSURANCE BILL Creatinine 4.16(H) 0.57 - 1.00 mg/dL [facility] INSURANCE BILL eGFR by CKD-EPI 11(L) >59 mL/min/1.7 3 [facility] INSURANCE BILL BUN/Creatinine Ratio 4(L) 12 - 28 [facility] INSURANCE BILL Sodium 137 134 - 144 mmol/L [facility] INSURANCE BILL Potassium 3.6 3.5 - 5.2 mmol/L [facility] INSURANCE BILL Chloride 95(L) 96 - 106 mmol/L [facility] INSURANCE BILL CO2 25 20 - 29 mmol/L [facility] INSURANCE BILL Calcium 9.6 8.7 - 10.3 mg/dL [facility] INSURANCE BILL Blood BLOOD SPECIMEN / Unknown 03/15/2024 8:45 AM COIN MACHINE MECHANIC 03/15/2024 Narrative [facility] INSURANCE BILL - 03/16/2024 6:10 AM COIN MACHINE MECHANIC Performed at: ??01 - [facility] [address] ??[id number] Core Cutter And Reamer: El Fan PhD, Phone: ??[phone] Bahman Ann MD LAB - CHEMISTRY ORDERABLES [facility] INSURANCE BILL [address] [place] [address] * XR Cervical Spine 2 or 3Vw (03/12/2024 2:45 PM COIN MACHINE MECHANIC) Anatomical Region Laterality Modality Spine Computed Radiogr aphy 03/12/2024 3:29 PM COIN MACHINE MECHANIC Impressions 03/12/2024 3:37 PM COIN MACHINE MECHANIC IMPRESSION: Redemonstration of postoperative changes cervical spinal fusion as described above, unchanged compared to prior exam. The report was drafted by Emil Carrillo MD (residential treatment specialist) 03/12/2024 3:29 PM. Maria Eugenia Bran MD have personally reviewed and interpreted this examination/study. > Interpreting Provider: Maria Eugenia Howard MD on 03/12/2024 3:37 PM Narrative 03/12/2024 3:37 PM COIN MACHINE MECHANIC PROCEDURE: ??XR CERVICAL SPINE 2 OR 3VW, DATE/TIME OF EXAM: ??03/12/2024 2:45 PM, LOCATION ??[facility] INDICATION: Z98.1: S/P cervical spinal fusion ADDITIONAL CLINICAL INFORMATION: Ordering Provider Reason For Exam: ??s/p cervical fusion COMPARISON: Cervical spine radiograph from 12/19/2023. FINDINGS: Redemonstration of instrumented spinal fusion with posterior rods and screws at C2-C7 and an anterior plate, screws, and interbody fusion devices at C4-C7. Hardware is intact and the alignment is unchanged. There is no subluxation. There are surgical clips in the anterior neck. Procedure Note Maria Eugenia Howard MD - 03/12/2024 PROCEDURE: XR CERVICAL SPINE 2 OR 3VW, DATE/TIME OF EXAM: 52:45 PM, LOCATION [facility] INDICATION: Z98.1: S/P cervical spinal fusion ADDITIONAL CLINICAL INFORMATION: Ordering Provider Reason For Exam: s/p cervical fusion COMPARISON: Cervical spine radiograph from 12/19/2023. FINDINGS: Redemonstration of instrumented spinal fusion with posterior rods and screws at C2-C7 and an anterior plate, screws, and interbody fusiondevices at C4-C7. Hardware is intact and the alignment is unchanged. There is no subluxation. There are surgical clips in the anterior neck. IMPRESSION: Redemonstration of postoperative changes cervical spinal fusion as described above, unchanged compared to prior exam. The report was drafted by Emil Carrillo MD (residential treatment specialist) 03/12/2024 3:29 PM. Maria Eugenia Bran MD have personally reviewed and interpreted this examination/study. > Interpreting Provider: Maria Eugenia Howard MD on 03/12/2024 3:37 PM Ryland Fuentes MD DIAGNOSTIC IMAGING O RDERABLES * APHERESIS/TRANSFUSION ORDER (02/19/2024 1:25 PM COIN MACHINE MECHANIC) Narrative 02/19/2024 1:25 PM COIN MACHINE MECHANIC Ordered by an unspecified provider. Scanned Document NURSING - VITAL SIGN S AND ASSESSMENT * PREPARE (CROSSMATCH) RBC UNIT(S), 4 Units (02/11/2024 1:17 AM COIN MACHINE MECHANIC) Unit Description AS1 LR PRBC [facility] BLOOD BANK LAB Unit ABO O [facility] BLOOD [facility] LAB Unit NEG [facility] BLOOD [facility] Product Number R02 [facility] B LOOD BANK LAB Unit Donor # [id number] [facility] BLOOD BANK LAB Unit Status released [facility] BLOO D BANK LAB Product Code [id number] [facility] BLO OD BANK LAB Blood Type Barcode 9500 [facility] BLOOD [facility] LAB Expiration Date S BLOOD BANK LAB Unit Description AS1 LR PRBC [facility] BLOOD [facility] LAB Unit ABO O [facility] BLOOD [facility]ANK LAB Unit NEG [facility] BLOOD B[facility] LAB Product Number R43 [facility] B LOOD BANK LAB Unit Donor # [id number] [facility] BLOOD BANK LAB Unit Status released [facility] BLOO D BANK LAB Product Code [id number] [facility] BLO OD BANK LAB Blood Type Barcode 9500 [facility] BLOOD [facility] LAB Expiration Date S BLOOD BANK LAB Unit Description AS1 LR PRBC [facility] BLOOD [facility]ANK LAB Unit ABO O [facility] BLOOD [facility]ANK LAB Unit NEG [facility] BLOOD BANK LAB Product Number R44 [facility] B LOOD BANK LAB Unit Donor # [id number] [facility] BLOOD BANK LAB Unit Status released [facility] BLOO D BANK LAB Product Code [id number] [facility] BLO OD BANK LAB Blood Type Barcode 9500 [facility] BLOOD BANK LAB Expiration Date S BLOOD BANK LAB Unit Description AS1 LR PRBC [facility] BLOOD BANK LAB Unit ABO O [facility] BLOOD [facility]ANK LAB Unit NEG [facility] BLOOD BANK LAB Product Number R02 [facility] B LOOD BANK LAB Unit Donor # [id number] [facility] BLOOD BANK LAB Unit Status released [facility] BLOO D BANK LAB Product Code [id number] [facility] BLO OD BANK LAB Blood Type Barcode 9500 [facility] BLOOD BANK LAB Expiration Date [id number] S BLOOD BANK LAB Blood Bank BLOOD SPECIMEN / Unknown 02/08/2024 2:11 PM COIN MACHINE MECHANIC Laura Ramandeep RECRUITER SPECIALIST-HYDRAULIC PILE HAMMER OPERATOR LAB - BLOOD BA NK ORDERABLES Performing Organization Address [facility]/ZIP Co de Phone Number [facility] BLOOD BANK LAB [address] [place] [address], [facility] [phone] * HEMOGLOBIN A1C (02/10/2024 1:08 AM COIN MACHINE MECHANIC) Hemoglobin A1c 5.1 <=5.6 % 02/10/2024 9:12 AM [facility] Estimated Average Glucose 100 mg/dL 02/10/2024 9:12 AM [facility] Comment: HbA1c Interpretation: Normal : < 5.7% Pre-diabetes: 5.7-6.4% Diabetes: Equal to or greater than 6.5% Test results diagnostic of diabetes should be repeated for confirmation. Treatment target values recommended by ADA and other clinical organizations should be used to evaluate metabolic control in patients. Reference: [place] Diabetes Association, Standards of Care in Diabetes -2020 In patients 70 years and older consider HbA1c target range of 7.0-7.5% (Reference: Jayme Go et al. JAMDA. 2012) The [place] assay for the measurement of HbA1c is a National Glycohemoglobin Standardization Program (NGSP) certified method. Blood BLOOD SPECIMEN / Unknown Lab Venipuncture / Unknown 02/10/2024 1:08 AM COIN MACHINE MECHANIC 02/10/2024 1:44 AM COIN MACHINE MECHANIC Lamberto Potts MD LAB - CHEMISTRY RASHID INFANTE Performing Organization Address City/[facility]/ZIP Co de Phone Number [facility] [address] [place] [address], [facility] [phone] * (ABNORMAL) GLUCOSE - POINT OF CARE (02/09/2024 7:34 PM COIN MACHINE MECHANIC) Only the most recent of4 resultswithin the time period is included. Glucose WB/POC 118(H) 70 - 99 mg/dL 02/09/2024 7:35 PM COIN MACHINE MECHANIC [facility] Specimen Type Cap Fingerstick 2023 7:[address] [facility] Blood BLOOD SPECIMEN / Unknown 02/09/2024 7:34 PM COIN MACHINE MECHANIC 02/09/2024 7:35 PM COIN MACHINE MECHANIC Lamberto Potts MD LAB - POINT OF CARE ORDERABLES Performing Organization Address City/[facility]/ZIP Co de Phone Number [address] [address], [facility] [phone] * HEPATITIS B SURFACE ANTIGEN W RFLX CONFIRMATION (02/09/2024 12:34 PM COIN MACHINE MECHANIC) [facility] Hepatitis B Virus Surface Antigen Non-reacti ve Non-reacti ve 02/09/2024 2:[address] [facility] Blood BLOOD SPECIMEN / Unknown Lab Venipuncture / Unknown 02/09/2024 12:34 PM COIN MACHINE MECHANIC 02/09/2024 1:01 PM COIN MACHINE MECHANIC China Arriola MD LAB - CHEMISTRY ORDE ARELIS Performing Organization Address City/[facility]/ZIP Co de Phone Number [address] [address], [facility] [phone] * (ABNORMAL) CBC W/O DIFFERENTIAL (02/09/2024 9:04 AM COIN MACHINE MECHANIC) Only the most recent of2 resultswithin the time period is included. [facility] WBC 7.9 4.0 - 10.7 x10E9/L 02/09/2024 10:[address] [facility] RBC Count 3.10(L) 3.90 - 5.20 x10E12/L 02/09/2024 10:[address] [facility] Hemoglobin 8.8(L) 11.9 - 15.8 g/dL 02/09/2024 10:[address] [facility] Hematocrit 27.6(L) 34.8 - 46.1 % 02/09/2024 10:[address] [facility] MCV 89.0 80.0 - 98.0 fL 02/09/2024 10:[address] [facility] MCH 28.4 26.7 - 33.6 pg 02/09/2024 10:[address] [facility] MCHC 31.9 31.7 - 36.3 g/dL 02/09/2024 10:[address] [facility] RDW-CV 15.8(H) 11.3 - 14.8 % 02/09/2024 10:[address] [facility] Platelet Count 193 150 - 420 x10E9/L 02/09/2024 10:[address] [facility] MPV 10.0 7.8 - 11.4 fL 02/09/2024 10:[address] [facility] Blood BLOOD SPECIMEN / Unknown Lab Venipuncture / Unknown 02/09/2024 9:04 AM COIN MACHINE MECHANIC 02/09/2024 9:[address] [facility] Lamberto Potts MD LAB - HEMATOLOGY ORD ERABLES Performing Organization Address [facility] Co de Phone Number [address] [phone] [phone] * (ABNORMAL) RENAL FUNCTION PANEL (02/09/2024 9:04 AM [employer]IN MACHINE MECHANIC) BUN 33(H) 7 - 26 mg/dL 02/09/2024 10:[address] [facility] Creatinine 8.43(H) 0.56 - 0.96 mg/dL 02/09/2024 10:[address] [facility] Sodium 139 136 - 145 mmol/L 02/09/2024 10:[address] [facility] Potassium 4.8(H) 3.5 - 4.5 mmol/L 02/09/2024 10:[address] [facility] Chloride 103 98 - 107 mmol/L 02/09/2024 10:[address] [facility] CO2 22 22 - 29 mmol/L 02/09/2024 10:[address] [facility] Glucose 114(H) 70 - 99 mg/dL 02/09/2024 10:[address] [facility] Albumin 3.0(L) 3.4 - 5.0 g/dL 02/09/2024 10:[address] [facility] Calcium 9.4 8.4 - 10.2 mg/dL 02/09/2024 10:[address] [facility] Phosphorus 6.5(H) 2.9 - 5.1 mg/dL 02/09/2024 10:[address] [facility] Anion Gap 14 6 - 16 02/09/2024 10:[address] [facility] BUN/Creatinine Ratio 4(L) 7 - 23 02/09/2024 10:[address] [facility] Osmolality Calculated 296(H) 275 - 295 mOsm/kg 02/09/2024 10:[address] [facility] eGFR by CKD-EPI 5(L) >=90 mL/min/1.7 3 m2 02/09/2024 10:[address] [facility] Blood BLOOD SPECIMEN / Unknown Lab Venipuncture / Unknown 02/09/2024 9:04 AM COIN MACHINE MECHANIC 02/09/2024 9:59 AM COIN MACHINE MECHANIC Lamberto Potts MD LAB - CHEMISTRY RASHID INFANTE [address] [address], [facility] [phone] * MAGNESIUM BLOOD (02/09/2024 9:04 AM COIN MACHINE MECHANIC) Pathologist [facility] Magnesium 2.0 1.6 - 2.6 mg/dL 02/09/2024 10:[address] [facility] Blood BLOOD SPECIMEN / Unknown Lab Venipuncture / Unknown 02/09/2024 9:04 AM COIN MACHINE MECHANIC 02/09/2024 9:59 AM COIN MACHINE MECHANIC Lamberto Potts MD LAB - CHEMISTRY RASHID INFANTE [address] [address], [facility] [phone] * ACT LR - POCT ([facility]) (02/08/2024 6:03 PM COIN MACHINE MECHANIC) Only the most recent of3 resultswithin the time period is included. ACT LR 289 See result comments sec 02/09/2024 2:40 PM COIN MACHINE MECHANIC [facility] Blood BLOOD SPECIMEN / Unknown 02/08/2024 6:03 PM COIN MACHINE MECHANIC 02/09/2024 2:40 PM COIN MACHINE MECHANIC Narrative [facility] - 02/09/2024 2:40 PM COIN MACHINE MECHANIC ACT-LR [employer] ranges are: Cardiac vp lab = 200-300 seconds Sheath pull = ACT less than 170 seconds EPS lab = 200-240 seconds Sheath pull = ACT less than 140 seconds Radiology : CT/Angio lab = 200-300 seconds Sheath pull = ACT less than 200 seconds Expected range of normal volunteers: ACT-LR = 113-149 seconds Expected range of a Non-heparin patients: ACT-LR = 89-169 seconds From established ranges from the company manual Lamberto Potts MD LAB - COAGULATION OR DERABLES [facility] [address] [place] [address], [facility] [phone] * ETT LINE PERFORMABLE (02/08/2024 3:52 PM COIN MACHINE MECHANIC) Narrative Ellen Aguilera Anes Asst - 02/08/2024 3:52 PM COIN MACHINE MECHANIC Ellen Aguilera Anes Asskevon ? 02/08/2024 ??3:53 PM Endotracheal Tube Placement: ? Patient Location: OR. Intubation Event Date/Time: ??02/08/2024 3:33 PM Procedure: intubation ([id number]) Procedure Section: ?? Sedation: under general anesthesia. Indications for Airway Management: ??anesthesia Procedure pretreatments used? ??No Induction: standard IV Patient Position: ??sniffing and supine Mask Ventilation: easy. Blade Type: Alana Blade Size: 4 Laryngoscopy View: grade 1 (full cords) Intubation Adjuncts: stylet Tube: endotracheal tube Placement: oral Tube type: cuff - inflated Tube Size (MM): 7 Depth of Insertion (CM): 19 Measured From: teeth Cuff volume (mL): ??8 Cuff Inflated With: air Number of Attempts: 1. Placement Verified By: direct visualization, bilateral breath sounds, chest auscultation and CO2 monitor Tube secured with: ??adhesive tape. Dentition unchanged? ??Yes Difficult Airway? ??No. Procedure Start Time: 02/08/2024 3:33 PM. Procedure End Time: 02/08/2024 3:33 PM. Procedure Total Time: 0 ??minutes. Staff Section ? Anesthesia Provider: Ellen Aguilera Anes Asst, Performed the procedure Aden Osuna MD GENERAL ANESTHESIA ORDERABLES * ECHO JAE PROCEDURAL (02/08/2024 3:35 PM COIN MACHINE MECHANIC) Anatomical Region Laterality Modality Ultrasound 02/08/2024 3:35 PM COIN MACHINE MECHANIC Narrative 02/08/2024 6:48 PM COIN MACHINE MECHANIC Summary ??* The left atrial appendage is windsock shaped with reduced velocity, and there is no thrombus. ??* Left atrial appendage measures 23 mm wide by 18 mm deep at 0 degrees, 21 mm wide by 19 mm deep at 45 degrees, 21 mm wide by 22 mm deep at 90 degrees, and 23 mm wide by 16 mm deep at 135 degrees. ??* Successful placement of a 31 mm Watchmen FLX device in the left atrial appendage with no peridevice leak. Patient Info Name: ? Moy Leos Age: ? 68 years : ? 1955 Gender: ? Female Accession #: ? [id number] Exam Date: ? 02/08/2024 3:35 PM Patient Status: ? I/P Study Site: ? [facility] Primary Location: ? [facility] EStudy Info Exam Type: ? ECHO JAE PROCEDURAL Indications ?I48.0 - Paroxysmal atrial fibrillation (HCC) * A 2D, 3D, color Doppler and spectral Doppler transesophageal echocardiogram was performed. Staff Referring Physician: ? Laura Sabillon Ordering Provider: ? Laura Sabillon Attending Physician: ? Laura Sabillon Company Accountant: ? Bahman Hope Medications ??* Sedation administered and monitored by anesthesia staff. Procedure Details ??Probe passed by the winding lathe operator without difficulty. 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 Atrial Appendage ??The left atrial appendage is windsock shaped with reduced velocity, and there is no thrombus. Left atrial appendage measures 23 mm wide by 18 mm deep at 0 degrees, 21 mm wide by 19 mm deep at 45 degrees, 21 mm wide by 22 mm deep at 90 degrees, and 23 mm wide by 16 mm deep at 135 degrees. Successful placement of a 31 mm Watchmen FLX device in the left atrial appendage with no peridevice leak. Pericardium/Pleural ??There is a trivial pericardial effusion. Report Signatures Finalized by Senthil Lance on 02/08/2024 06:48 PM Procedure Note Senthil Lance MD - 02/08/2024 Summary * The left atrial appendage is windsock shaped with reduced velocity,and there is no thrombus. * Left atrial appendage measures 23 mm wide by 18 mm deep at 0 degrees,21 mm wide by 19 mm deep at 45 degrees, 21 mm wide by 22 mm deep at 90degrees, and 23 mm wide by 16 mm deep at 135 degrees. * Successful placement of a 31 mm Watchmen FLX device in the leftatrial appendage with no peridevice leak. Patient Info Name: Moy Leos Age: 68 years : 1955 Gender: Female Exam Date: 02/08/2024 3:35 PM Patient Status: I/P Study Site: [facility] Primary Location: [facility] EStudy Info Exam Type: ECHO JAE PROCEDURAL Indications I48.0 - Paroxysmal atrial fibrillation (HCC) * A 2D, 3D, color Doppler and spectral Doppler transesophagealechocardiogram was performed. Staff Referring Physician: Laura Sabillon Ordering Provider: Laura Sabillon Attending Physician: Laura Sabillon Company Accountant: Bahman Hope Medications * Sedation administered and monitored by anesthesia staff. Procedure Details Probe passed by the winding lathe operator without difficulty. 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 Atrial Appendage The left atrial appendage is windsock shaped with reduced velocity,and there is no thrombus. Left atrial appendage measures 23 mm wide by 18 mmdeep at 0 degrees, 21 mm wide by 19 mm deep at 45 degrees, 21 mm wide by 22 mmdeep at 90 degrees, and 23 mm wide by 16 mm deep at 135 degrees. Successful placement of a 31 mm Watchmen FLX device in the left atrial appendage withno peridevice leak. Pericardium/Pleural There is a trivial pericardial effusion. Report Signatures Finalized by Senthil Lance on 02/08/2024 06:48 PM [facility] ECHO CUPID * TYPE + SCREEN PANEL (02/08/2024 2:07 PM COIN MACHINE MECHANIC) Antibody Screen POS 2:55 PM COIN MACHINE MECHANIC [facility] BLOOD BANK LAB ABO Rh O NEG 02/08/2024 2:55 PM COIN MACHINE MECHANIC [facility] BLOOD BANK LAB Blood Bank BLOOD SPECIMEN / Unknown Venipuncture / Unknown 02/08/2024 2:07 PM COIN MACHINE MECHANIC 02/08/2024 2:11 PM COIN MACHINE MECHANIC [facility] LAB - BLOOD BA NK ORDERABLES Performing Organization Address City/[facility]/ZIP Co de Phone Number [facility] BLOOD BANK LAB [address] [place] [address], [facility] [phone] * ALEAH DIRECT (02/08/2024 2:07 PM COIN MACHINE MECHANIC) Direct Aleah (BROCK) NEG 02/08/2024 3:58 PM COIN MACHINE MECHANIC [facility] BLOOD [facility] LAB Blood Bank BLOOD SPECIMEN / Unknown Venipuncture / Unknown 02/08/2024 2:07 PM COIN MACHINE MECHANIC 02/08/2024 2:11 PM COIN MACHINE MECHANIC [facility] LAB - BLOOD BA NK ORDERABLES Performing Organization Address City/[facility]/ZIP Co de Phone Number [facility] BLOOD [facility] LAB [address] [place] [address], [facility] [phone] * ANTIBODY IDENTIFICATION (02/08/2024 2:07 PM COIN MACHINE MECHANIC) Antibody 1 POS, Anti-C 02/08/2024 4:13 PM COIN MACHINE MECHANIC [facility] BLOOD BANK LAB Antibody 2 POS, Anti-D 02/08/2024 4:13 PM COIN MACHINE MECHANIC [facility] BLOOD BANK LAB Blood Bank BLOOD SPECIMEN / Unknown Venipuncture / Unknown 02/08/2024 2:07 PM COIN MACHINE MECHANIC 02/08/2024 2:11 PM COIN MACHINE MECHANIC Laura Sabillon RECRUITER SPECIALIST-HYDRAULIC PILE HAMMER OPERATOR LAB - BLOOD BA NK ORDERABLES Performing Organization Address [facility]/ZIP Co de Phone Number [facility] BLOOD BANK LAB [address] [place] [address], [facility] [phone] * IMMUNOFIXATION BLOOD (12/28/2023 3:26 PM COIN MACHINE MECHANIC) Only the most recent of2 resultswithin the time period is included. Immunofixation Serum Normal Pattern Normal Pattern 12/29/2023 4:17 PM COIN MACHINE MECHANIC [facility] Comment: No monoclonal immunoglobulin detected by serum immunosubtraction. Edilma Rosa PhD, [facility] Clinical Custom Bike Builder hearing stenographer *The electrophoresis pattern and the interpretation have been reviewed and verified by the teaching physician. Blood BLOOD SPECIMEN / Unknown Lab Venipuncture / Unknown 12/28/2023 3:26 PM COIN MACHINE MECHANIC 12/28/2023 3:41 PM COIN MACHINE MECHANIC Bahman Ann MD LAB - CHEMISTRY ORDERABLES Performing Organization Address City/[facility]/ZIP Co de Phone Number [facility]ORATORY [address] [address], [facility] [phone] * FL MODIFIED BARIUM SWALLOW W/SPEECH (12/28/2023 2:32 PM COIN MACHINE MECHANIC) Anatomical Region Laterality Modality Chest Digital Radiogra phy 12/28/2023 7:41 PM COIN MACHINE MECHANIC Impressions 12/28/2023 7:41 PM COIN MACHINE MECHANIC IMPRESSION: Modified barium swallow fluoroscopy as described. Please see detailed report from speech pathology staff. > Interpreting Provider: Ashlee Strickland MD on 12/28/2023 7:41 PM Narrative 12/28/2023 7:41 PM COIN MACHINE MECHANIC PROCEDURE: ??FL SWALLOWING FUNCTION STUDY DATE/TIME OF EXAM: ??12/28/2023 4:19 PM CLINICAL INFORMATION: None relevant/not provided if blank. Indication: R13.12: Oropharyngeal dysphagia Additional History: COMPARISON: None. TECHNIQUE: Modified barium swallow fluoroscopy performed in conjunction with speech pathology staff. The speech pathologist administered varying thickness barium liquids and solids under direct Cine fluoroscopy. FINDINGS: FLUOROSCOPY DOSE: ??15 mGy Reference air kerma (ka,r). Procedure Note Ashlee Strickland MD - 12/28/2023 PROCEDURE: FL SWALLOWING FUNCTION STUDY DATE/TIME OF EXAM: 12/28/2023 4:19 PM CLINICAL INFORMATION: None relevant/not provided if blank. Indication: R13.12: Oropharyngeal dysphagia Additional History: COMPARISON: None. TECHNIQUE: Modified barium swallow fluoroscopy performed in conjunction with speech pathology staff. The speech pathologist administered varying thickness barium liquids and solids under direct Cine fluoroscopy. FINDINGS: FLUOROSCOPY DOSE: 15 mGy Reference air kerma (ka,r). IMPRESSION: Modified barium swallow fluoroscopy as described. Please see detailed report from speech pathology staff. > Interpreting Provider: Ashlee Strickland MD on 47:41 PM Peter Mullen MD FLUOROSCOPY ORDERA BLES * (ABNORMAL) KAPPA/LAMBDA LITE CHAIN FREE PANEL (12/27/2023 11:51 AM COIN MACHINE MECHANIC) Free Rising Star Light Chains 136.9(H) 3.3 - 19.4 mg/L [facility] INSURANCE BILL Free Lambda Light Chains 178.1(H) 5.7 - 26.3 mg/L [facility] INSURANCE BILL Rising Star/Lambda Ratio 0.77 0.26 - 1.65 [facility] INSURANCE BILL Blood BLOOD SPECIMEN / Unknown 12/27/2023 11:51 AM COIN MACHINE MECHANIC 12/27/2023 Narrative [facility] INSURANCE BILL - 12/28/2023 3:10 PM COIN MACHINE MECHANIC Performed at: ??[address] ??[id number] Core Cutter And Reamer: El Fan PhD, Phone: ??[phone] Bahman Ann MD LAB - CHEMISTRY ORDERABLES [facility] INSURANCE BILL [address] [place] [address] * HEPATITIS C AB SCREEN RFLX NAAT QUANT (10/18/2023 4:48 PM CDT) Hepatitis C Antibody Non-react nayeli Non-reac tive 10/18/2023 5:48 PM CDT [facility] Comment:Hepatitis C Antibody screen indicates no serologic evidence of past or current infection with Hepatitis C Virus. Patients with unexplained liver disease who are immunocompromised or suspected of having acute Hepatitis C infection may benefit from Nucleic Acid Test (LJ) for Hepatitis C Viral RNA to confirm Hepatitis C status. Blood BLOOD SPECIMEN / Unknown Venipuncture / Unknown 10/18/2023 4:48 PM CDT 10/18/2023 4:48 PM CDT Osmar Ocasio DO LAB - CHEMISTRY RASHID INFANTE Performing Organization Address City/[facility]/ZIP Co de Phone Number [address] [address], [facility] [phone] * MAMMO BILAT SCREENING (10/13/2021) Anatomical Region Laterality Modality Breast Bilateral Mammography 10/13/2021 Lety Campbell RECRUITER SPECIALIST-ANA MAMMO ORDERABLES * ENDOSCOPY, COLON, DIAGNOSTIC (12/31/2020 8:24 AM COIN MACHINE MECHANIC) Report Endoscopy POC Endoscopy Department Report _ Patient Name: Moy Leos ?Procedure Date: 12/31/2020 8:24 AM ? Date of : 1955 Classification: Outpatient ?Gender: Female Ethnicity: Not or ? Race: Black or _ Providers: ?Sterling Davidson MD. Kristopher Mayer MD Referring MD: ? Federico Branham Jr (Referring MD) Procedure: ?Colonoscopy Indications: ?High risk colon cancer surveillance: Personal ?history of colonic polyps, last colonoscopy in 2018 Medications: ?Monitored Anesthesia Care Description of Procedure: Pre-Anesthesia Assessment: ?- Prior to the procedure, a History and Physical ?was performed, and patient medications and ?allergies were reviewed. The patient's tolerance of ?previous anesthesia was also reviewed. The risks ?and benefits of the procedure and the sedation ?options and risks were discussed with the patient. ?All questions were answered, and informed consent ?was obtained. Prior Anticoagulants: The patient has ?taken Eliquis (apixaban), last dose was 3 days ?prior to procedure. ASA Grade Assessment: III - A ?patient with severe systemic disease. After ?reviewing the risks and benefits, the patient was ?deemed in satisfactory condition to undergo the ?procedure. ?After I obtained informed consent, the scope was ?passed under direct vision. Throughout the ?procedure, the patient's blood pressure, pulse, and ?oxygen saturations were monitored continuously. The ?[id number] was introduced through the anus and ?advanced to the cecum, identified by appendiceal ?orifice and ileocecal valve. The colonoscopy was ?performed without difficulty. The patient tolerated ?the procedure well. The quality of the bowel ?preparation was adequate to identify polyps. ? Findings: ? Hemorrhoids were found on perianal exam. ? Five small sessile polyps were found in the rectum, sigmoid colon, ? descending colon and cecum. The polyps were 2 to 3 mm in size. These ? polyps were removed with a jumbo cold forceps. Resection and retrieval ? were complete. ? No mass or large polyps seen. ? Multiple medium-mouthed diverticula were found in the sigmoid colon, ? descending colon and transverse colon. There was no evidence of ? diverticular bleeding. ? Internal hemorrhoids were found during retroflexion. The hemorrhoids ? were large. ? Estimated Blood Loss: ? Estimated blood loss was minimal. Complications: ?No immediate complications. Impression: ? - Hemorrhoids found on perianal exam. ?- Five 2 to 3 mm polyps in the rectum, in the ?sigmoid colon, in the descending colon and in the ?cecum, removed with a cold snare. Resected and ?retrieved. ?- Diverticulosis in the sigmoid colon, in the ?descending colon and in the transverse colon. There ?was no evidence of diverticular bleeding. ?- Internal hemorrhoids. Recommendation: ? - Resume previous diet. ?- Resume Eliquis (apixaban) at prior dose tomorrow. ?- Await pathology results. ?- Repeat colonoscopy in 5 years for surveillance. ?- Return to referring physician as previously ?scheduled. ?- Continue present medications. ? Attending Participation: ??I was present and participated during the entire ?procedure, including non-mathew portions. ? Procedure Code(s): ? --- Professional --- ? 12473, Colonoscopy, flexible; with removal of tumor(s), polyp(s), or ? other lesion(s) by snare technique Diagnosis Code(s): ?--- Professional --- ?Z86.010, Personal history of colonic polyps ?K64.8, Other hemorrhoids ?K62.1, Rectal polyp ?K63.5, Polyp of colon ?K57.30, Diverticulosis of large intestine without ?perforation or abscess without bleeding CPT copyright 2019 [employer] [place] [employer]. All rights reserved. The codes documented in this report are preliminary and upon director of sales support review may be revised to meet current compliance requirements. _ Sterling Davidson MD 12/31/2020 9:21:44 AM Note Initiated On: 12/31/2020 8:24 AM Number of Addenda: 0 ? [facility] ? [address] [place] [address] [facility] 12/31/2020 8:24 AM COIN MACHINE MECHANIC Sterling Davidson MD GI PROCEDURE ORDERAB LES [facility] * DEXA BONE DENSITY AXIAL SKELETON (01/26/2016 9:02 AM COIN MACHINE MECHANIC) Anatomical Region Laterality Modality Other Narrative 01/26/2016 9:41 AM COIN MACHINE MECHANIC Examination: Dual energy x-ray absorptiometry of the lumbar spine and hip. Clinical Indication: Prekidney evaluation, history low calcium reported by the patient Findings: Detailed data from the exam is sent separately to the ordering physician and is also available on [email or web address], the Radiology Department's computerized picture archive system SUMMARY: No prior study available for comparison. BONE MINERAL DENSITY (BMD) ??lumbar spine (L1-4): Normal; T-score -0.2 BONE MINERAL DENSITY (BMD) left hip: Osteopenic; T-score -1.1 FRAX 10 year fracture risk Major osteoporotic fracture: 4.8% Hip fracture: 0.2% Definitions: T-score = Standard Deviation Normal: A value for bone mineral density(BMD) within 1 standard deviation of the young adult reference mean. (T-score above -1) Low bone mass(osteopenia): A value for bone mineral density(BMD) more than 1 standard deviation below the young adult mean, but less than 2.5 standard deviations below the young adult mean. ( T-score between -1 and -2.5) Osteoporosis: A value for bone mineral density 2.5 standard deviations or more below the young adult mean. ( T-score at or below -2.5) Severe osteoporosis: Osteoporosis + the presence of one or more fragility fractures. Please note that T-score values are important in determining increased risk for fractures. The T-score represents the standard deviation above or below the mean bone mineral density for young adults. With each -1 standard deviation decrease in bone mineral density, the risk for fracture doubles exponentially. A T-score of -1 will double the risk , and -2 will be 4 times the risk. As a rule of thumb, a T-score of -1 to -2.5 indicates increasing degrees of osteopenia. This report was approved ??by Gonzalo Penny ?? on 01/26/2016 9:32 AM . I, Dr. RANULFO PELAEZ D.O. have personally reviewed and interpreted this examination/study. This report was electronically signed by RANULFO PELAEZ D.O. ??on 01/26/2016 9:41 AM . Procedure Note Ranulfo Pelaez, DO - 05/20/2017 Examination: Dual energy x-ray absorptiometry of the lumbar spine andhip. Clinical Indication: Prekidney evaluation, history low calcium reported bythe patient Findings: Detailed data from the exam is sent separately to the orderingphysician and is also available on [email or web address], the Radiology Department'scompPocket Talesized picture archive system SUMMARY: No prior study available for comparison. BONE MINERAL DENSITY (BMD) lumbar spine (L1-4): Normal; T-score -0.2 BONE MINERAL DENSITY (BMD) left hip: Osteopenic; T-score -1.1 FRAX 10 year fracture risk Major osteoporotic fracture: 4.8% Hip fracture: 0.2% Definitions: T-score = Standard Deviation Normal: A value for bone mineral density(BMD) within 1 standard deviationof the young adult reference mean. (T-score above -1) Low bone mass(osteopenia): A value for bone mineral density(BMD) more than1 standard deviation below the young adult mean, but less than 2.5standard deviations below the young adult mean. ( T-score between -1 and-2.5) Osteoporosis: A value for bone mineral density 2.5 standard deviations ormore below the young adult mean. ( T-score at or below -2.5) Severe osteoporosis: Osteoporosis + the presence of one or more fragilityfractures. Please note that T-score values are important in determining increasedrisk for fractures. The T-score represents the standard deviation above orbelow the mean bone mineral density for young adults. With each -1 standard deviation decrease in bone mineral density, the risk for fracture doubles exponentially. A T-score of-1 will double the risk , and -2 will be 4 times the risk. As a rule ofthumb, a T-score of -1 to -2.5 indicates increasing degrees ofosteopenia. This report was approved by Gonzalo Penny on 01/26/2016 9:32 AM . I, Dr. RANULFO PELAEZ D.O. have personally reviewed and interpreted thisexamination/study. This report was electronically signed by RANULFO PELAEZ D.O. on 01/26/20169:41 AM . 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 06/08/2020 Advance Directives Documents on File Type Date Recorded Patient Heel Packer Expl anation Adv Directive/Living Will/POA 03/07/2013 8:32 PM POA Adv Directive/Living Will/POA 11/17/2009 2:16 PM POA * Full Code (Latest Code Status on File) Date Activated Date Inactivated Comments 02/08/2024 5:47 PM 02/10/2024 6:26 PM * Full Code Date Activated Date Inactivated Comments 10/05/2023 7:03 PM 10/19/2023 1:39 PM * Full Code Date Activated Date Inactivated Comments 10/05/2023 12:13 PM 10/05/2023 7:02 PM * Full Code Date Activated Date Inactivated Comments 10/05/2023 12:13 PM 10/05/2023 12:13 PM * Full Code Date Activated Date Inactivated Comments 04/10/2023 10:36 PM 04/13/2023 7:41 PM Care Teams Check Writing Machine Operator Relationship Specialty Start Date End Date Federico Branham Jr., MD [address] [place] [address] PCP - Strive [employer]CO 10/22/23 Federico Branham Jr., MD [address] [place] [address] PCP - General Family Medicine 12/15/23 Octavia Parry, RECRUITER SPECIALIST-HYDRAULIC PILE HAMMER OPERATOR [address] [place] [address] PCP - Attributed-MSSP 11/21/23 Farrukh Solorzano MD [address] [place] [address] [address] [place] [address] -[phone] (Work) Cardiovascular Disease 08/01/18 Keya Reina MD [address] [facility] [address] [place] [address] Gastroenterology 08/01/18 Osmar Zambrano MD [address] [facility] [address] [place] [address] Otolaryngology 08/01/18 Francisco Leos MD [address] [address] Pulmonary Disease 08/01/18 Jc Moreau MD [address] [facility] [address] [place] [address] Nephrology 08/01/18 [place] [address] [place] [address] Landcare Officer Cardiac Electrophysiology 09/03/18 [place] [address] [place] [address] Cardiology 04/25/19 Care, [facility] AssistantRevenue Cycle Specialist 08/29/19
--- OUTSIDE RECORDS SUMMARY | 2024-03-25 09:09 | XMS_ITS | Encounter Summary ---
Author Organization [facility] Address [address] [place] [address] Care Team Providers Care Dustless Operator Name Role Phone Farrukh Solorzano MD Unavailable [phone] Keya Reina MD Unavailable Unavailable Osmar Zambrano MD Unavailable Francisco Tobin MD Unavailable Jc Moreau MD Unavailable [phone] Ryland Alves MD Unavailable Lorene Ly MD Unavailable [facility] Kidney Unavailable Liss Gooden MD Primary Care Provider [phone] Kylah Solares Unavailable Carrol Pitts MD, Joseph Theodore Unavailable Carrol Pitts MD, Joseph Theodore Unavailable Carrol Pitts MD, Joseph Theodore Primary Care Provider Octavia Parry DIRECTOR INPATIENT HEADACHE PROGRAM-SUBMARINE DIVER Unavailable [phone] Encounter Details Date Type Department Care Team (Late st Contact Info) Description 11/03/2023 Telephone [facility] - Orthopedic Surgery [address] [place] [phone] Ryland Fuentes MD [facility] [address] [place] [address] Social History Tobacco Use Types Packs/Day Years Used Date Smoking Tobacco: Never Smokeless Tobacco: Never Alcohol Use Standard Drinks/Week Comments No 0 (1 standard drink = 0.6 oz pur e alcohol) AUDIT-C Answer Date Recorded Q1: How often do you have a drink containing alc ohol? Monthly or less 10/06/2023 Q2: How many drinks containi ng alcohol do you have on a typical day when you are drinking? 1 or 2 10/06/2023 Q3: How often do you have si x or more drinks on one occasion? Never 10/06/2023 Overall Financial Resource Strain (CARDIA) Answe r Date Recorded How hard is it for you to pa y for the very basics like food, housing, medical care, and heating? Patient declined 10/05/2023 PHQ-2 Answer Date Recorded Patient Health Questionnaire-2 Score 0 10/17/2023 [facility] - Occupational Stress Questionnaire Answer Date Recorded Do you feel stress - tense, restless, nervous, or anxious, or unable to sleep at night because your mind is troubled all the time - these days? Patient declined 10/05/2023 Hunger Vital Sign Answer Date Recorded Within the past 12 months, y ou worried that your food would run out before you got the money to buy more. Patient declined Within the past 12 months, t he food you bought just didn't last and you didn't have money to get more. Patient declined PRAPARE - Transportation Answer Date Re corded In the past 12 months, has l ack of transportation kept you from medical appointments or from getting medications? Patient declined 10/05/2023 In the past 12 months, has l ack of transportation kept you from meetings, work, or from getting things needed for daily living? Patient declined 10/05/2023 Housing Stability Vital Sign Answer Brock e Recorded In the last 12 months, was t here a time when you were not able to pay the mortgage or rent on time? Patient declined 10/05/19 24 In the last 12 months, how many places have you lived? 1 10/05/2023 In the last 12 months, was t here a time when you did not have a steady place to sleep or slept in a long-term (including now)? Patient declined 10/05/2023 Education Answer Date Recorded What is the highest level of school you have completed or the highest degree you have received? Doctorate 09/25/2023 Sex and Gender Information Value Date Recorded Sex Assigned at Female 02/14/2020 1:06 PM TRENCHER DRIVER Gender Identity Female 02/14/2020 1:05 PM TRENCHER DRIVER Sexual Orientation Straight 02/14/2020 1: 05 PM TRENCHER DRIVER documented as of this encounter Functional Status Functional Status Response Date of Assess ment Is person deaf or have hilda us hearing difficulty? No 10/06/2023 Is person blind or have seri ous difficulty seeing? No-previous cataract surgery 10/06/2023 Does person have serious dif ficulty walking/climbing stairs? Yes 10/06/2023 Does person have difficulty dressing/bathing? Yes 10/06/2023 Does person have difficulty doing errands alone? Yes 10/06/2023 Cognitive Status Response Date of Assessm ent Does person have difficulty concentrating/remembering/making decisions? No 10/06/2023 documented as of this encounter Miscellaneous Notes * Telephone Encounter - Lynda Cortés MA - 11/03/2023 1:27 PM CDT Lianne from the facility that Ms Naqvi is at called and wanted confirmation on whether or not they could remove the C Collar. She said it has been 5 weeks and they wanted to make sure it was okay. She can be reached at [phone]. documented in this encounter Plan of Treatment Upcoming Encounters Date Type Department Care Team (Late st Contact Info) Description 03/29/2024 2:00 PM TRENCHER DRIVER Office Visit [facility] - Family [address] [phone] Federico Branham Jr., MD [address] [place] [address] 04/11/2024 10:20 AM TRENCHER DRIVER Office Visit [facility] - Family Medicine [address] [place] [phone] Federico Branham Jr., MD [address] [place] [address] 04/18/2024 1:00 PM TRENCHER DRIVER Office Visit [facility] [address] [place] [address] [address] [place] [address] Federico Branham Jr., MD [address] [place] [address] Bahman Ann MD [address] [place] [phone] 05/27/2024 10:00 AM CDT [facility] [address] [place] [phone] Celi Bob PA-C [address] [place] [address] [address] [place] [phone] 05/28/2024 11:15 AM CDT [facility] [address] [place] [phone] Jaylon Marks MD [address] [place] [address] [place] [phone] 07/16/2024 2:15 PM CDT [facility] [address] [place] [phone] Ryland Fuentes MD [address] [place], [place] [phone] 07/30/2024 10:20 AM CDT Office Visit [facility] - Family Medicine [phone] [place] [address] [address] [place] [address] [place] [address] [address] [place] [phone] 08/06/2024 10:20 AM CDT Office Visit [facility] - Podiatry [address] [place] [address] [place] [address] [facility] [address] [place] [address] 01/10/2025 10:00 AM TRENCHER DRIVER Office Visit [facility] - GI [address] [place] [phone] Thais Euceda PA-C [address] [facility] [place] [address] documented as of this encounter Goals Goal Patient Goal Type Associated Problems Recent Progress Patient-Stated? Author Medication Management General On track( 024 9:50 AM TRENCHER DRIVER) Andra Fonseca, JAMESON Note: Expected end date: [...] VRE Hx 06/08/2020 06/08/2020 COVID-19 Under Investigation 03/16/2024 03/16/2024 03/16/2024 2:43 PM TRENCHER DRIVER COVID-19 Under Investigation 03/16/2024 03/16/2024 03/16/2024 3:58 PM TRENCHER DRIVER Influenza A or B 03/16/2024 03/16/2024 03/23/2024 4:33 AM TRENCHER DRIVER documented as of this encounter Care Teams Dustless Operator Relationship Specialty [place] [address] [phone] PCP - General Family Medicine 09/25/23 12/14/23 Federico Branham Jr., MD [address] [place] [address] PCP - Strive ACO 10/22/23 Federico Branham Jr., MD [address] [place] [address] PCP - Attributed-MSSP 08/21/23 11/20/23 Federico Branham Jr., MD [address] [place] [address] PCP - General Family Medicine 12/15/23 Octavia Parry, DIRECTOR INPATIENT HEADACHE PROGRAM-SUBMARINE DIVER [address] [place] [address] PCP - Attributed-MSSP 11/21/23 Farrukh Solorzano MD [address] [place] [phone] -[phone] (Work) Cardiovascular Disease 08/01/18 Keya Reina MD [address] [place] [address] Gastroenterology 08/01/18 Osmar Zambrano MD [address] [place] [address] Otolaryngology 08/01/18 Francisco Tobin MD [address] [place] [phone] Pulmonary Disease 08/01/18 Jc Moreau MD [address] [facility] [address] [place] [address] Nephrology 08/01/18 [place] [address] [address] [place] [phone] [employer] Cardiac Electrophysiology 09/03/18 [place] [address] [place] [address] Cardiology 04/25/19 Care, [facility] Kidney Mold Filler And DrainerMarket Superintendent 08/29/19 Kylah Solares Care Coordination Specialist Care Management 10/25/23 12/01/23 documented as of this encounter
--- OUTSIDE RECORDS SUMMARY | 2024-03-25 09:09 | XMS_ITS | Clinical Summary ---
Author Organization [facility] Address [address] [place] [address] Care Team Providers Care Guest Services Attendant Name Role Phone Farrukh Solorzano MD Unavailable [phone] Keya Reina MD Unavailable Unavailable Osmar Zambrano MD Unavailable Francisco Leos MD Unavailable Jc Moreau MD Unavailable [phone] Ryland Alves MD Unavailable Lorene Ly MD Unavailable Care, [facility] Unavailable Carrol Pitts MD, Joseph Theodore Unavailable Carrol Pitts MD, Federico Howe Primary Care Provider Octavia Parry BLADE OPERATOR-SWEEPER DRIVER Unavailable [phone] Source Comments [facility],non-owned Affiliates and Associated Physician Practices is amultiple site organization consisting of ambulatory clinics and hospital sitesin [place], [place], [place] and [place]. This disclosure is being madepursuant to the Care Everywhere program and may not contain all information available regarding this patient. Last updated 17.[facility] Health Allergies Active Allergy Reactions Criticality Noted Date [...] fluticasone propionate (Flonase) 50 MCG/ACT nasal spray [place] 2 (two) sprays into each nostril once daily Make sure to shake bottle first 48 g 3 4 Active B Kozsnkn-C-Vrud c Acid (Dialyvite 800) 0.8 MGIndications: End [...] & Plan (12/23/2023 9:56 PM CDT): Lipitor Eliquis Follow w/ neurology Cord compression 10/05/2023 Osteoporosis 12/29/2022 12/29/2022 Cervical stenosis of spine 12/29/2022 Overview (10/06/2023): In ICU for high- MAP goals with pressor needs Assessment & Plan (12/29/2022 10:02 AM VESSEL LINER): Gabapentin Lidocaine patch See Spine Surgery Pre-transplant evaluation for kidney transplant 12/19/2022 Overview (12/19/2022): Images from the original note were not included. Moy Leos 1955 Referring Mobile Home Park Manager: Jc Moreau Listing Date: Pt was previously [...] antiglobulin test (BROCK) is negative. The patient's [employer] red blood cells are negative for the [...] 12/08/2022 ALERTS: pt with sickle cell trait Basin Cleaner: Pt needs to establish care, she has not been on any meds for DM since 2010 ESRD 2/2 DM2 and HTN Past Medical History: Diagnosis Date ? ? Anemia ? ? Anuria 2013 ? ? Arthropathy knee and back ? ? Asthma rescue inhalers ? ? Atrial fibrillation ([facility]) dx'd in 1992, had cardiac ablations in 1992 and 2016, 1st ones at [facility] and 2nd one here at [facility], follows with supervisor metal furniture fabrication Dr. Painting, on eliquis ? ? CHF (congestive heart failure) (CMS/HCC) 08/1996 EF 30-35% (06/03) ? ? Chronic back pain follows with pain management at [facility], gets back injections and takes tylenol if needed, no surgeries ? ? Community acquired pneumonia has had once/twice since started dialysis, would have 3-4 times per year prior to that ? ? COPD (chronic obstructive pulmonary disease) ([facility]) dx'd in 2021, follows with cardiac care unit nurse, was told she no longer has it in 2015, inhalers prn ? ? Coronary artery disease 07/08/2022 non-obstructive disease ? ? Diabetes mellitus (CMS/HCC) dx'd in 2007, was on insulin from 07/2008 - 02/2010, no medicine since then, diet controlled, no supervisor furnace process ? ? Diverticulitis of large intestine with perforation no abscess. treated [facility] preble antibx. ? ? D[place] (deep venous thrombosis) [place] BLE DVTs, pt was in hospital x 1 week, bed ridden, c/o leg pain, found BLE DVTs ? ? DVT of leg (deep venous thrombosis) ([facility]) 03/20/2013 DVT left leg, superficial right leg ? ? Esophageal reflux ? ? Esophageal stricture has had 2 dilatations, pt states if she does not take her PPIs then her esophagus starts to close up, EGDs completed here at [facility] ? ? ESRD on hemodialysis ([facility]) ? ? Generalized anxiety disorder ? ? Glaucoma ? ? History of blood transfusion ? ? HTN (hypertension) ? ? Hypercholesteremia ? ? Hyperparathyroidism ([facility]) had parathyroiectomy ? ? Hypertension 1988 ? ? Hypotension 2017 pt has been on midorine since then, is now down to 5mg on dialysis days only as of 10/21/2022 ? ? Hypoxemia has worn at home in past, hasn't worn in years ? ? [place] (myocardial infarction) ([facility]) 2003 ? ? Morbid obesity [place] ? ? Neuropathy ? ? Obstructive sleep apnea mild sleep apnea, last sleep study 09/2021 ? ? Peptic ulcer disease ? ? Primary gout 2008 ? ? RA (rheumatoid arthritis) ([facility] 1994 no meds, no follow with rheumatology ? ? Sickle cell trait ([facility] ? ? Sleep apnea 02/2002 uses CPAP without O2- compliant most nights ? ? Type 2 diabetes mellitus with hypertension and end stage renal disease on dialysis ([facility] ? ? Ulcer 2003 ? ? VRE [...] TLH with SBO, d/t fibroids, had at [facility] ? ? IR ANGIO AV SHUNT NON DIRECT ? ? OTHER SURGERY 2010 03 AV fistula, at [place] ? ? Parathyroidectomy 10/2015 here at [facility] ? ? [place] PLACEMENT, BILE DUCT STENT bile duct stent [...] weight loss clinic and transplant nephrology at [facility]. She is hoping to work towards transplant listing. She has been referred to dermatology for alopecia and rheumatology for possible rheumatoid arthritis in the interim. Those appointments have not occurred yet. Patient also reports concerns about being 5 kg heavier than her dry weight and has had worsening shortness of breath. She has anuric and reports recently being recommended by her 411 directory assistance operator to be admitted for more aggressive volume removal. She is holding off on this for the time being as she reports need to take her daughter to [place] for postoperative assessment. She also reports cramping [...] provide the patient with office number of [facility], and I also placed referral order to rheumatology at [facility] in case very well to see the patient sooner than at [facility]. ?? -the patient I discussed digoxin. Will [...] of her knee. Relates of seeing a phone specialist but denies of having her knee [...] of working on getting back on the U transplant list. Physical Exam: BP 99/62 Pulse [...] Pedis R 2/4 Posterior Tibialis R 0/4 AFTERNOON NANNY is than 3 sec ?? Dependant Rubor: [...] she will need to talk to her 411 directory assistance operator about pain medication. - Pt was informed that the gabapentin starts to help due to the medication it builds up enough in her system to help with her symptoms when she does not have dialysis for 2 days in a row. Pt was advised to follow-up with her 411 directory assistance operator about increasing her gabapentin dosage to help [...] of doing the exercises shown to have jail effects. - Pt was informed of the [...] In addition I note: ?? 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 Colon cancer screening followed by it applications developer at [place], [place], noted to have 3 polyps 12/2014 [...] Confirmatory Test Negative ratio Positive ! PROTHROMBIN [id number] PANEL Rpt Prothrombin [id number] Negative Source PT [id number] PCR Whole Blood Latest Reference Range & [...] 146.81 g/m2 ??(Range: 44 - 88) LV Aclazar A2C 8.817 cm LV Alcazar A4C 8.453 [...] Routine study Facility Location: [facility] Indication: HFrEF Procedure Galvanizing Pot Runner: KRZYSZTOF Mott,RDCS,RVT Ordering Provider: Bahman Ann MD [...] PHT 70 ms Mitral Valve MV Dec Toombs 3.36 m/s?? Right Ventricle Diastolic Function TR Pmax 29 mmHg Right Ventricle Diastolic Function PV AT 78 ms Tricuspid Valve RVSP 34 mmHg Tricuspid Valve RA Pressure 5 mmHg Tricuspid Valve TR Vmax 2.7 m/s Nuc med: 06/16/2022 Reason for Study: CAD- non [...] reveal mildly reduced LV systolic function. ? [facility]: 07/08/2022 Conclusion 1. No obstructive coronary artery [...] was withdrawn. Dilation ?was performed with a SimpleTherapyary dilator with mild resistance at 57 Fr. [...] periapical abscess. SW: 12/20/2022 - note pending PROPELLANT ASSEMBLER forms: still need RD: 12/20/2022 - note [...] 05/10/2021 Dr. Carrol MORALES 7.15.2020 Jory Freedman, BLADE OPERATOR-SWEEPER DRIVER Cardiology Assessment & Plan (12/23/2023 9:56 PM [...] nephrology Tortuous aorta 10/20/2020 Overview (11/08/2021): 05/10/2021 Dr. Carrol MORALES 3.29.19 CXR Cardiac chambers are enlarged. The aorta is tortuous Assessment & Plan (09/16/2022 7:50 PM CDT): Incidental finding on CXR Chronic hypotension 10/19/2020 Assessment & Plan (12/23/2023 9:56 PM CDT): Controlled today, took midodrine, Asymptomatic Assessment & Plan (06/21/2023 12:25 PM CDT): Controlled today, took midodrine, Asymptomatic Assessment & Plan (12/29/2022 9:58 AM VESSEL LINER): Stable - Continue Midodrine 10mg TID Assessment [...] 1:30 PM CDT): On HD MWF at [facility]. Dr. Squires is pt's Mobile Home Park Manager. 2L out on 06/08 resulted in SVT. Fluid sensitive with dialysis requiring midodrine and close HR monitoring. ?? - continue home fosrenol, Phoslo, Vitamin B complex - RFP, mag daily - Nephrology following - Dialysis MWF - Continue renal home regimen - Electrolyte management per specialist Assessment & Plan (06/21/2020 12:21 PM CDT): On HD MWF at [facility]. Dr. Squires is pt's Mobile Home Park Manager. 2L out on 06/08 resulted in SVT. Fluid sensitive with dialysis requiring midodrine and close HR monitoring. ?? - Goal UF between 0.5-1.5L today - continue home fosrenol, Phoslo, Vitamin B complex - RFP, mag daily - Nephrology following - MWF HD Assessment & Plan (06/15/2020 7:16 AM CDT): On HD MWF at [facility]. Dr. Squires is pt's Mobile Home Park Manager. 1.2L UF out from HD on 06/06. 2L out on 06/08 resulted in SVT. - continue home fosrenol, Phoslo, Vitamin B complex - RFP, mag daily - Nephrology following - MWF HD Assessment & Plan (06/14/2020 6:56 AM CDT): On HD MWF at [facility]. Dr. Squires is pt's Mobile Home Park Manager. 1.2L UF out from HD on 06/06. 2L out on 06/08 resulted in SVT. - continue home fosrenol, Phoslo, Vitamin B complex - RFP, mag daily - Nephrology following - MWF HD Assessment & Plan (06/12/2020 6:31 AM CDT): On HD MWF at [facility]. Dr. Squires is pt's Mobile Home Park Manager. 1.2L UF out from HD on 06/06. 2L out on 06/08 resulted in SVT. - continue home fosrenol, Phoslo, Vitamin B complex - RFP, mag daily - Nephrology following - MWF HD Assessment & Plan (06/11/2020 9:40 AM CDT): On HD MWF at [facility]. Dr. Squires is pt's Mobile Home Park Manager. 1.2L UF out from HD on 06/06. 2L out on 06/08 resulted in SVT. - continue home fosrenol, Phoslo, Vitamin B complex - RFP, mag daily - Nephrology following - MWF HD Assessment & Plan (06/10/2020 7:08 AM CDT): On HD MWF at [facility] in [place]. Dr. Squires is pt's Mobile Home Park Manager. 1.2L UF out from HD on 06/06. 2L out on 06/08 resulted in SVT. - continue home fosrenol, Phoslo, Vitamin B complex - Question on Lanthanum dosage, will discuss with patient - RFP, mag daily - Nephrology following - MWF HD Assessment & Plan (06/09/2020 10:35 AM CDT): On HD MWF at [facility] in [place]. Dr. Squires is pt's Mobile Home Park Manager. 1.2L UF out from HD on 06/06. 2L out on 06/08 resulted in SVT. - continue home fosrenol, Phoslo, Vitamin B complex - Question on Lanthanum dosage, will discuss with patient - RFP, mag daily - Nephrology following - MWF HD - Additional gentle UF dialysis today Assessment & Plan (06/08/2020 11:14 AM CDT): On HD MWF at [facility] in [place]. Dr. Squires is pt's Mobile Home Park Manager. 1.2L UF out from HD on 06/06. - continue home fosrenol, Phoslo, Vitamin B complex - Question on Lanthanum dosage, will discuss with patient - RFP, mag daily - Nephrology following - MWF HD Assessment & Plan (06/07/2020 11:05 AM CDT): On HD MWF at [facility] in [place]. Dr. Squires is pt's Mobile Home Park Manager. 1.2L UF out from HD yesterday. - continue home fosrenol, Phoslo, Vitamin B complex - RFP, mag daily - Nephrology following Assessment & Plan (02/27/2019 3:09 PM VESSEL LINER): ESRD on HD (MWF). Receiving dialysis on same schedule while admitted as IP. Sees Dr. Moreau as OP - Nephrology consult and following; appreciate recs - HD while admitted as appropriate - Daily RFP/Mg levels - Continue home lanthanum, renal vitamin - Monitor I/Os Assessment & Plan (02/26/2019 7:04 AM VESSEL LINER): ESRD on HD (MWF). Last HD on Monday. Went in for dialysis this morning but due to ongoing CP and hypotension, was told to come to ED. Patient of Dr. Moreau's - Nephrology consult and following; appreciate recs - HD while admitted as appropriate - Daily RFP/Mg levels - Continue home lanthanum, renal vitamin - Monitor I/Os Assessment & Plan (02/25/2019 2:03 PM VESSEL LINER): ESRD on HD (MWF). Last HD on [...] CDT): ESRD on MWF hemodialysis (Dr. Moreau), 411 directory assistance operator is aware. Phos back in normal range at 4 today. - Continue dialysis. - Continue calcitriol, calcium acetate, cinacalcet, fosrenol, renal vitamin. - RFTs QD. Assessment & Plan (08/28/2018 1:49 PM CDT): ESRD on MWF hemodialysis (Dr. Moreau), 411 directory assistance operator is aware. Phos back in normal range at 3.2 today. - Continue dialysis. - Continue calcitriol, calcium acetate, cinacalcet, fosrenol, renal vitamin. - RFTs QD. Assessment & Plan (08/27/2018 3:10 PM CDT): ESRD on MWF hemodialysis (Dr. Moreau), 411 directory assistance operator is aware. K low at 3.4 today. Phos high at 6.2. - Continue dialysis. - Continue calcitriol, calcium acetate, cinacalcet, fosrenol, renal vitamin. - Encourage patient to take phosphate binders despite NPO status due to high phos. - K repletion during dialysis - RFTs QD. Assessment & Plan (08/26/2018 12:11 PM CDT): ESRD on MWF hemodialysis (Dr. Moreau), 411 directory assistance operator is aware. - Continue dialysis. - Continue calcitriol, calcium acetate, cinacalcet, fosrenol, renal vitamin. - RFTs QD. Assessment & Plan (08/25/2018 3:13 PM CDT): Follows with Dr. Moreau. Has MWF scheduled. - Nephrology consulted, appreciate recommendations - Dialysis per Nephrology - Continue calcitriol, calcium acetate, cinacalcet, fosrenol, renal vitamin Assessment & Plan (08/24/2018 2:04 PM CDT): ESRD on MWF hemodialysis (Dr. Moreau), 411 directory assistance operator is aware. - Continue dialysis. - Continue calcitriol, calcium acetate, cinacalcet, fosrenol, renal vitamin. - RFTs QD. Assessment & Plan (08/23/2018 11:49 AM CDT): ESRD on MWF hemodialysis (Dr. Moreau), 411 directory assistance operator is aware. - Continue dialysis. - Continue [...] exacerbation Assessment & Plan (02/27/2019 7:07 AM VESSEL LINER): On home Eliquis 2.5mg PO BID. Sees Dr. Alves. History of prior DVT. - Continue Eliquis and Metoprolol - Cardiac telemetry monitoring Assessment & Plan (02/25/2019 3:47 PM VESSEL LINER): On home Eliquis 2.5mg PO BID. Sees Dr. Alves. History of prior DVT. - Continue Eliquis and Metoprolol - Cardiac telemetry monitoring Assessment & Plan (02/25/2019 2:20 PM VESSEL LINER): On home Eliquis 2.5mg PO BID. Sees [...] by PCP. Atherosclerotic heart diseas e of [employer] coronary artery without angina pectoris 08/09/2012 Overview (03/31/2016): Overview: Mild, non-obstructive CAD LENORA (obstructive sleep apnea) 02/20/2002 Overview (07/12/2018): Overview: Overview: uses CPAP without O2- compliant most nights uses CPAP without O2- compliant most nights Class 1 obesity with serious comorbidity in adul t Assessment & Plan (12/29/2022 9:59 AM VESSEL LINER): - Discussed dietary changes - Encourage exercise - Encourage Noom or WW - Economics Professor eval Assessment & Plan (09/16/2022 7:50 PM CDT): - Discussed dietary changes - Encourage exercise Coronary artery disease invo lving [employer] coronary artery of [employer] heart Overview (04/30/2013): 2004 HLD (hyperlipidemia) Assessment & Plan (09/16/2022 7:52 PM CDT): - continue atorvastatin Assessment & Plan (11/10/2021 9:45 PM CDT): - continue atorvastatin Assessment & Plan (06/06/2020 1:21 AM CDT): On home rosuvastatin 5mg qd. - atorvastatin 20mg qd while in the hospital COPD (chronic obstructive pulmonary disease) Overview (04/30/2013): Manager Medicare Dr Leos Assessment & Plan (09/16/2022 7:55 [...] claudication Assessment & Plan (12/29/2022 10:03 AM VESSEL LINER): Gabapentin Lidocaine patch See Spine Surgery Resolved [...] 12/29/2022 Assessment & Plan (12/29/2022 10:03 AM VESSEL LINER): S/p abx, doing well Abdominal pain, generalized 12/21/2022 12/29/2022 Dyspnea on exertion 12/21/2022 06/21/19 24 Assessment & Plan (12/29/2022 10:00 AM VESSEL LINER): Suspect 2/2 chronic hypotension - Midodrine ESRD on dialysis 12/21/2022 12/29/2022 Chest pain, unspecified type 12/21/2022 12/29/2022 Obesity (BMI 30-39.9) 12/08/20222022 Rheumatoid arthritis 12/08/2022 023 Metabolic syndrome 12/08/2022 3 Other chronic pain 12/08/2022 3 Osteoporosis 11/10/2021 09/14/2022 Paraparesis 11/10/2021 12/22/2023 Assessment & Plan (06/21/2023 12:26 PM CDT): Due to history of nerve compression, under care of Dr. Fuentes Trial of Cymbalta for paraesthesias Assessment & Plan (09/16/2022 7:54 PM CDT): Improving! Continue w/ PT PAF (paroxysmal atrial fibrillation) 11/08/2021 11/10/2021 Overview (11/08/2021): 09/24/2021 OVDr. Alves Diabetic polyneuropathy asso ciated with type 2 diabetes mellitus 11/08/2021 11/10/2021 Overview (11/08/2021): 08/17/2021 OVDr. Rolon Positive D dimer 11/01/2020 11/03/2020 Assessment & Plan [...] (05/10/2021 12:44 PM CDT): PT, see Dr. Fuentes Flexestefania Assessment & Plan (11/10/2020 8:11 PM CDT): [...] was discharged on 06/15 and readmitted to [facility] within 24-48 hours for similar symptoms. Discharged [...] was discharged on 06/15 and readmitted to [facility] within 24-48 hours for similar symptoms. Discharged [...] 02/25/2019 Assessment & Plan (02/27/2019 3:10 PM VESSEL LINER): Chest pain occurring for past 5 days, [...] CP Assessment & Plan (02/26/2019 10:59 AM VESSEL LINER): Chest pain occurring for past 5 days, [...] CP Assessment & Plan (02/25/2019 1:58 PM VESSEL LINER): Chest pain occurring for past 5 days, [...] Chest tenderness to palpation - Admit to [facility], Dr. Cifuentes attending physician - Cardiac telemetry [...] for nausea - Pain control with Tylenol, [place], and IV morphine PRN, ideally avoiding opioid [...] levothyroxine. Assessment & Plan (02/27/2019 7:07 AM VESSEL LINER): On home levothyroxine 25mcg PO qD before breakfast. TSH 1.64 (WNL) - Continue Synthroid Assessment & Plan (02/26/2019 7:11 AM VESSEL LINER): On home levothyroxine 25mcg PO qD before breakfast. 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 Listing date: 12/09/14 Referring Mobile Home Park Manager: Jc Moreau Dialysis Type and Start Date: Hemodialysis, (M,W,F) 09/23/09 Blood Type: O- BMI: 35.04 Short H/P summary: 61 yo AA/F with ESRD secondary to DM and HTN. Parathyroidectomy 2015. Extensive health hx. See HealthTap for further info. Transplant surgery appt: 09/27/16 [...] needed 5. Colon cancer screening followed by it applications developer at [place], [place], noted to have 3 polyps 12/2014 [...] immune, MMR immune Echo: 11/03/16 (done at [facility]) -?Left ventricle: -?Systolic function was normal. Ejection [...] of 49%. Cardiac Cath: 11/09/15 (done at [facility]) FINDINGS: Left ventriculogram: The left ventricular chamber [...] no histopathologic abnormality Mammo: 01/24/17 (done at [facility]- record in [facility]) Impression: No mammographic evidence of malignanct. Recommend routine screening mammography in one year. BI-RADS Category 2: Benign findings. Pap: complete hysterectomy Dental: neg panorex [facility]12/03/15 The patient was placed on the fluoroscopy table in supine position. AP fretted instrument repairer images were obtained. 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 Patient reports her daughters are willing to assist financially as needed. Patient in the process of applying for SSDI at present. ?? Plan: track service worker to provide supportive services as needed. No f/u indicated at this time.Patient appears to be a reasonable candidate for transplant from a psychosocial perspective. ? SW to continue to educate patient on AKF rules and eligibility as she will no longer qualify for premium assistance after transplant ? Psychiatric Consult Recommended: No ? Transplant Outside Deliverer: Concepcion Wilkins LMSW RD: 11/09/16 BMI= 35.04, [...] 021 Assessment & Plan (02/27/2019 7:07 AM VESSEL LINER): Taking linaclotide 145mcg PO qD at home - Continue home linaclotide Assessment & Plan (02/25/2019 3:47 PM VESSEL LINER): Taking linaclotide 145mcg PO qD at home - Continue home linaclotide Assessment & Plan (02/25/2019 2:16 PM VESSEL LINER): Taking linaclotide 145mcg PO qD at home - Continue home linaclotide Pre-transplant evaluation fo r kidney transplant 06/14/2017 12/19/2022 Overview (05/29/2018): Listing date: 12/09/14 Referring Mobile Home Park Manager: Jc Moreau Basin Cleaner: Dialysis Type and Start Date: Hemodialysis, (M,W,F) 09/23/09 Blood Type: O- BMI: 35.08 (based on weight pt told to crab catcher) Short H/P summary: 61 yo AA/F with ESRD secondary to DM and HTN. Parathyroidectomy 2015. Extensive health hx. See HealthTap for further info. Transplant surgery appt: 09/27/16 [...] needed 5. Colon cancer screening followed by it applications developer at [place], noted to have 3 polyps 12/2014 [...] is 48%). Cardiac Cath: 11/09/15 (done at [facility]) FINDINGS: Left ventriculogram: The left ventricular chamber [...] no histopathologic abnormality Mammo: 01/24/17 (done at [facility]- [facility]) Impression: No mammographic evidence of malignanct. Recommend routine screening mammography in one year. BI-RADS Category 2: Benign findings. Pap: complete hysterectomy [facility]12/03/15 The patient was placed on the fluoroscopy table in supine position. AP fretted instrument repairer images were obtained. A Hoover catheter was [...] Impression: It is the impression of this director of social work that Moy Leos has several positive factors [...] which has provided steady income. ? Plan: track service worker to provide supportive services as needed. No f/u indicated at this time. ?? Patient appears to be a reasonable candidate for transplant from a psychosocial perspective. ? Psychiatric Consult Recommended: No ? Transplant Outside Deliverer: Concepcion Wilkins LMSW RD: 05/18/18 24 Hour Recall: 1 fish slider from doron castellonlindsey burrell -pt reports this is a typical day [...] HD on diet compliance ?? Jaylin Ruiz, RD/LD Palpitations 04/27/2017 08/01/2018 Hemodialysis-associated hypotension 04/27/2017 11/10/2020 Assessment & Plan (06/06/2020 1:13 AM CDT): Continue home midodrine 15mg tid before meals. Assessment & Plan (02/27/2019 3:09 PM VESSEL LINER): History of orthostatic hypotension 2/2 HD. On home midodrine 15mg TID AC - Continue home midodrine - Monitor patient BPs Assessment & Plan (02/25/2019 3:47 PM VESSEL LINER): History of orthostatic hypotension 2/2 HD. On home midodrine 15mg TID AC on dialysis days - Continue home midodrine - Monitor patient BPs Assessment & Plan (02/25/2019 2:23 PM VESSEL LINER): History of orthostatic hypotension / HD. On home midodrine 15mg TID AC on dialysis days - Continue home midodrine - Monitor patient BPs Calciphylaxis 04/27/2017 05/01/2019 Other disorder of calcium metabolism 04/24/2017 08/01/2018 Rotator cuff tear, right 02/09/2017 PAF (paroxysmal atrial fibrillation) 01/06/2017 11/10/2020 Overview (10/20/2020): 10.19.2020 Cecily Bright, BLADE OPERATOR-SWEEPER DRIVER Cardiology Excessive anticoagulation 08/15/2016 End stage renal [...] Overview (08/22/2018): Since 1996, sees cardiology at [facility]. Assessment & Plan (02/27/2019 3:08 PM VESSEL LINER): Per chart review last Echo November 2017 - showing mild to moderately reduced LV systolic function with EF 40-45 %, tavr-ou-okbarfol left ventricular wall thickening, moderate MR, moderate TR. No signs of volume overload on examination. Repeat Echo showing decrease in EF to 30%, LV hypokinesis, G1DD - Cardiology consulted and following; appreciate recs - will discuss Echo results with Cards as well as options for managment - Continue home metoprolol succinate XL 12.5mg PO BID Assessment & Plan (02/26/2019 7:04 AM VESSEL LINER): Per chart review last Echo November 2017 - showing mild to moderately reduced LV systolic function with EF 40-45 %, yyyk-zv-udhgizck left ventricular wall thickening, moderate MR, moderate TR. No signs of volume overload on examination today - Cardiology consulted and following; repeat Echo - Continue home metoprolol succinate XL 12.5mg PO BID Assessment & Plan (02/25/2019 2:01 PM VESSEL LINER): Per chart review last Echo November 2017 - showing mild to moderately reduced LV systolic function with EF 40-45 %, cknn-nu-asucnwre left ventricular wall thickening, moderate MR, moderate [...] PPI. Assessment & Plan (02/27/2019 7:07 AM VESSEL LINER): On home protonix - Continue Protonix 40mg PO qD Assessment & Plan (02/25/2019 3:47 PM VESSEL LINER): On home protonix - Continue Protonix 40mg PO qD Assessment & Plan (02/25/2019 2:04 PM VESSEL LINER): On home protonix - Continue Protonix 40mg [...] hypercholesterolemia Assessment & Plan (02/27/2019 7:07 AM VESSEL LINER): On home Atorvastatin. Last charted lipid profile 9 months ago showing elevated LDL, triglycerides, low HDL Lipid profile showing low HDL (30), elevated TG (152), LDL 119 and Total cholesterol 179, both within acceptable ranges - continue atorvastatin 20mg qHS Assessment & Plan (02/26/2019 7:10 AM VESSEL LINER): On home Atorvastatin. Last charted lipid profile 9 months ago showing elevated LDL, triglycerides, low HDL Lipid profile showing low HDL (30), elevated TG (152), LDL 119 and Total cholesterol 179, both within acceptable ranges - continue atorvastatin 20mg qHS Assessment & Plan (02/25/2019 2:07 PM VESSEL LINER): On home Atorvastatin. 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 Encounters Date Type Department Care Team Description 03/22/2024 1:30 PM VESSEL LINER - 03/22/2024 2:30 PM VESSEL LINER Surgery [facility] - Cardiac Pattern Drafter [address] [place] [address] Bahman Ann MD CCL CIRCULAR SAW EDGE FUSER DIAGNOSTIC JAE 03/22/2024 12:59 PM VESSEL LINER Anesthesia Event [facility] - Cardiac Pattern Drafter [address] [place] [address] Ovidio Hazel MD Anokhin, Larissa, BLADE OPERATOR-LIQUOR BRIDGE OPERATOR HELPER 03/22/2024 12:47 PM VESSEL LINER - 03/22/2024 11:59 PM VESSEL LINER Hospital Encounter [facility] Heart & Vascular Care [address] [place] [address] Bhaman Ann MD Discharge Disposition: Home or Self Care 03/22/2024 11:58 AM VESSEL LINER - 03/22/2024 2:52 PM VESSEL LINER Hospital Encounter [facility] - Cardiac Pattern Drafter [address] [place] [phone] Bahman Ann MD Cardiac Catheterization Discharge Disposition: Home or Self Care 03/22/2024 Telephone [facility] - Care Coordination [address] [place] [address] Romeo Zelaya CPhT Rx Medication Monitoring 03/22/2024 Travel 03/19/2024 Travel 03/19/2024 Patient Outreach [facility] Care Coordination [address] [place] [address] Coates, Sada M, CLINICAL LIAISON UC Follow-up 03/19/2024 Patient Outreach [facility] - Care Coordination [address] [place] [phone] Carlota Joshi RN Opened In Error 03/17/2024 12:49 AM VESSEL LINER - 03/17/2024 2:15 AM VESSEL LINER Emergency [facility] EMERGENCY DEPARTMENT [address] [place] [phone] Alvaro Moody MD Influenza (Primary Dx); Acute cough; Shortness of breath Discharge Disposition: Home or Self Care 03/16/2024 Travel 03/12/2024 2:35 PM VESSEL LINER - 03/12/2024 11:59 PM VESSEL LINER Hospital Encounter [facility] DIAGNOSTIC RAD [address]SM [address] [place] [address] Ryland Fuentes MD Discharge Disposition: Home or Self Care 03/12/2024 2:15 PM VESSEL LINER Office Visit [facility] - Orthopedics [address] [place] [phone] Ryland Fuentes MD S/P cervical spinal fusion (Primary Dx) 03/11/2024 Orders Only [facility] Group - Orthopedics [address] [place] [phone] Ryland Fuentes MD S/P cervical spinal fusion 03/05/2024 Transitional Care [facility] CARE COORDINATION [facility] [place] [phone] Pura Lo RN Transitions Of Care 03/04/2024 Travel 02/16/2024 Telephone [facility] Heart & Vascular Care [address] [place] [address] [address] [place] [address] Bahman Ann MD [facility] 02/12/2024 Transitional Care [facility] CARE COORDINATION [facility] [place] [phone] Pura Lo RN Transitions Of Care 02/10/2024 Travel 02/08/2024 3:33 PM VESSEL LINER - 02/08/2024 11:59 PM VESSEL LINER Hospital Encounter [facility] - Cardiac Pattern Drafter [address] [place] [address] Laura Sabillon, BLADE OPERATOR-SWEEPER DRIVER Lamberto Potts MD Discharge Disposition: Home or Self Care 02/08/2024 3:20 PM VESSEL LINER Anesthesia Event [facility] - Cardiac Pattern Drafter [address] [place] [address] Tho Coon MD Seales, Lesa R, Anes Asst 02/08/2024 3:18 PM VESSEL LINER - 02/08/2024 5:36 PM VESSEL LINER Surgery [facility] - Cardiac Pattern Drafter [address] [place] [address] Lamberto Potts MD Left Atrial Appendage (COLETTE) Closure 02/08/2024 12:44 PM VESSEL LINER - 02/10/2024 5:20 PM VESSEL LINER Hospital Encounter [facility] ACUTE [address] [place] [address] Lamberto Potts MD Cardiovascular Disease Discharge Disposition: Home or Self Care 02/01/2024 Telephone [facility] - Cardiology [address] [phone] Lamberto Potts MD Scheduling ([place]) 01/16/2024 Telephone [facility] - Cardiology [address] [phone] Sona Prajapati, JAMESON Scheduling 01/10/2024 11:20 AM VESSEL LINER Video Visit [facility] - Cardiology 1034 [facility], [address] [address] Lamberto Potts MD Chronic atrial fibrillation (CMS/HCC) ; NICM (nonischemic cardiomyopathy) (HCC); Chronic systolic heart failure (HCC); Tortuous aorta (HCC); Moderate mitral regurgitation; History of deep vein thrombosis; End stage renal disease on dialysis (HCC) 01/05/2024 10:30 AM VESSEL LINER Office Visit [facility] - GI [address] [place] [address] Milo Reveles III, MD McNiell, Allison, PA-Efrain Class 1 obesity with serious comorbidity and body mass index (BMI) of 30.0 to 30.9 in adult, unspecified obesity type (Primary Dx); Hyperlipidemia, unspecified hyperlipidemia type; HFrEF (heart failure with reduced ejection fraction) (HCC); Pre-transplant evaluation for kidney transplant; End stage renal disease on dialysis (HCC); 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, sequela; Cerebrovascular accident (CVA), unspecified mechanism (HCC) 01/05/2024 Travel 01/01/2024 2:50 PM VESSEL LINER Anesthesia Event [facility] - Cardiac Pattern Drafter [address] [place] [address] Scot Villalpando MD Lewis, Jessica E, BLADE OPERATOR-LIQUOR BRIDGE OPERATOR HELPER 01/01/2024 1:30 PM VESSEL LINER - 01/01/2024 11:59 PM VESSEL LINER Hospital Encounter [facility] Heart & Vascular Care [address] [place] [phone] Bahman Ann MD Discharge Disposition: Home or Self Care 01/01/2024 1:30 PM VESSEL LINER - 01/01/2024 2:30 PM VESSEL LINER Surgery [facility] - Cardiac Pattern Drafter [address] [place] [address] Bahman Ann MD CCL CIRCULAR SAW EDGE FUSER DIAGNOSTIC JAE 01/01/2024 12:55 PM VESSEL LINER - 01/01/2024 4:22 PM VESSEL LINER Hospital Encounter [facility] - Cardiac Pattern Drafter [address] [place] [address] Bahman Ann MD Cardiac Catheterization Discharge Disposition: Home or Self Care 01/01/2024 Travel 12/29/2023 Telephone [facility] Heart & Vascular Care [address] [place] [address] [address] [place] [address] Bahman Ann MD [facility] 12/29/2023 Telephone [facility] Heart & Vascular Care [address] [place] [address] [address] [place] [address] Bahman Ann MD General 12/28/2023 2:45 PM VESSEL LINER - 12/28/2023 11:59 PM VESSEL LINER Hospital Encounter [facility] LAB OP DRAW STATION [address] [place] [phone] Discharge Disposition: Home or Self Care 12/28/2023 1:45 PM VESSEL LINER - 12/28/2023 2:44 PM VESSEL LINER Hospital Encounter [facility] DIAGNOSTIC RAD [address] [place] [phone] Peter Mullen MD Discharge Disposition: Home or Self Care 12/28/2023 1:45 PM VESSEL LINER Office Visit [facility] - ENT [address] [facility], [place] [phone] Madyson Brito SLP Dysphagia, oropharyngeal (Primary Dx); Pharyngoesophageal dysphagia; S/P cervical spinal fusion; Cerebrovascular accident (CVA), unspecified mechanism (HCC) 12/28/2023 Travel 12/28/2023 Telephone [facility] Medical [facility] - Family Medicine [address] [place] [phone] Federico Branham Jr., MD Medication Issue from Last 3 Months Immunizations Name Administration Dates Next Due BCG SKILLED NURSING, HISTORIC VACCINE 10/16/2019,01/2019,10/11/2017,2016,09/30/2015,10/08/2014,10/07/2013,0 11/10/2012,05/23/2012 COVID MODERNA 12+ [...] Zoster Hzv Vacc Recombinant Inj Im 01/07/2020, Family History Medical History Relation Name Comments Cancer Father colon CA Arthritis - Osteo Mother Arthritis - Rheumatoid Mother CAD (Coronary Artery Disease) Mother CABG Diabetes Mother Glaucoma Mother Heart Failure Mother Hypercholesterolemia Mother Hypertension Mother Kidney Disease Mother CRF- dialysis Cancer - Stomach Paternal Grandmother Diabetes - Type 2 Paternal Uncle Heart Failure Paternal Uncle Other Sister 1 respiratory iss ues Other Sister 2 MVC Diabetes - Type 2 Sister 3 Obesity Sister 3 Arthritis - Osteo Sister 4 CAD (Coronary Artery Disease) Sister 5 Diabetes Sister 5 Hypertension Sister 5 None Known Sister 6 None Known Sister 7 None Known Sister 8 None Known Sister 9 None Known Sister 10 None Known Sister 11 Relation Name Status Comments Daughter 1 Alive Daughter 2 Alive Daughter 3 Alive Father Mother Paternal Grandmother Paternal Uncle Sister 1 Alive Sister 2 Killed in MVA Sister 3 Alive Sister 4 Alive Sister 5 Alive Diabetes 2 Sister 6 Alive Sister 7 Alive Sister 8 Alive Sister 9 Alive Sister 10 Alive Sister 11 Alive Son Alive Social History Tobacco Use Types Packs/Day Years [...] Recorded Patient Health Questionnaire-2 Score 0 03/11/2024 [facility] of Occupat ional Health - Occupational Stress [...] place to sleep or slept in a mcc (including now)? Patient declined 10/05/2023 Housing Stability [...] any time in the past 12 [facility], were you homeless or living in a mcc (including now)? No 02/10/2024 Education Answer Date Recorded What is the highest level of school you have completed or the highest degree you have received? Doctorate 09/25/2023 Sex and Gender Information Value Date Recorded Sex Assigned at Female 02/14/2020 1:06 PM VESSEL LINER Gender Identity Female 02/14/2020 1:05 PM VESSEL LINER Sexual Orientation Straight 02/14/2020 1: 05 PM VESSEL LINER Last Filed Vital Signs Vital Sign Reading Time Taken Comments Blood Pressure 135/79 03/22/2024 2:00 PM VESSEL LINER Pulse 78 03/22/2024 2:00 PM VESSEL LINER Temperature 36.2 ??C (97.2 ??F) 03/22/2024 1:43 PM CS T Respiratory Rate 15 03/22/2024 2:00 PM VESSEL LINER Oxygen Saturation 98% 03/22/2024 2:00 PM VESSEL LINER Inhaled Oxygen Concentration 28% 02/10/2024 5 :51 AM VESSEL LINER Weight 73.5 kg (162 lb) 03/22/2024 12:55 PM VESSEL LINER Height 158.8 cm (5' 2.5 ) 03/22/2024 12:55 PM CS T Body Mass Index 29.16 03/22/2024 12:55 PM VESSEL LINER Plan of Treatment Upcoming Encounters Date Type Department Care Team (Late st Contact Info) Description 03/29/2024 2:00 PM VESSEL LINER Office Visit [facility] Family [address] [phone] Federico Branham Jr., MD [address] [place] [address] 04/11/2024 10:20 AM VESSEL LINER Office Visit [facility] Family Medicine [address] [place] [phone] Federico Branham Jr., MD [address] [place] [address] 04/18/2024 1:00 PM VESSEL LINER Office Visit [facility] Heart & Vascular Care [address] [facility] [address] [place] [address] Federico Branham Jr., MD [address] [place] [address] Bahman Ann MD [address] [facility] [address] [place] [phone] 05/27/2024 10:00 AM CDT Office Visit [facility] Physician Group - Neurology [address] [place] [phone] Celi Bob PA-C [address] [place] [address] [address] [place] [phone] 05/28/2024 11:15 AM CDT Office Visit [facility] - Ophthalmology [address] [place] [phone] Jaylon Marks MD [address] [place] [place] [address] DEPT [place] [phone] 07/16/2024 2:15 PM CDT Office Visit [facility] Group - Orthopedics [address] [place] [phone] Ryland Fuentes MD [address] [place] [address] 07/30/2024 10:20 AM CDT Office Visit [facility] - Family Medicine [id number] [place] [address] [place] [address] [place] [address] [phone] 08/06/2024 10:20 AM CDT Office Visit [facility] - Podiatry [address] [place] [address] Devika Rolon, DPJose [address] [place] [address] 01/10/2025 10:00 AM VESSEL LINER Office Visit [facility] Physician Group - GI [address] [facility], [place] [address] Thais Euceda PA-C [address] [facility] DEPT [place] [address] Health Maintenance Due Date Last Done Comments COLOGUARD (AGES 45-75) - COLON CA SCREENING 1954 CT COLONOGRAPHY - COLON CA SCREENING 1954 FIT - COLON CA SCREENING 1955 FLEX SIG - COLON CA SCREENING 1954 HEPATITIS B VACCINE (1 of 3 - Risk Dialysis 4-dose series) 1974 Respiratory Syncytial Virus (RSV) Vaccine Pt: or over 60 yrs (1 - Risk 60-74 years 1-dose series) 2014 MAMMOGRAM 10/14/2023 10/13/2021, 11/20 (Done Outside Per Report) MEDICARE AWV ? 12 MONTHS 12/30/2023 12/29/2022, 11/10/2021, 11/10/2020, Additional history exists SCREENING FOR DIABETES 03/16/2027 , 03/15/2024, 02/10/2024, Additional history exists DTAP/TDAP/TD VACCINES (2 - Td or Tdap) 12/11/2028 12/11/2018 COLON MONITORING 12/31/2030 12/31/2020, 12/2020, 10/09/2018, Additional history exists COLONOSCOPY - COLON CA SCREENING 12/31/2030 12/31/2020, 12/31/2020, 10/09/2018, Additional history exists Colorectal Cancer Screening 12/31/2030 BONE DENSITY TESTING Completed 01/26/2016 ZOSTER VACCINE Completed 01/07/2020, 12/11/2018 PNEUMOCOCCAL VACCINE 50+ Completed 022, 09/16/2019, 07/15/2019, Additional history exists HEPATITIS C SCREENING Completed 10/18/2023 , 12/06/2022, 05/18/2018, Additional history exists INFLUENZA VACCINE Completed 11/22/2023, , 11/21/2022, Additional history exists COVID-19 VACCINE Completed 12/22/2023, , 01/08/2021, Additional history exists DEPRESSION SCREENING Completed 03/12/2024, 03/14/2023, 12/29/2022, Additional history exists HIB VACCINE Aged Out No longer eligi ble based on patient's age to complete this topic HPV VACCINE Aged Out No longer eligi ble based on patient's age to complete this topic MENINGOCOCCAL (Group B) VACCINE Aged Out No longer eligible based on patient's age to complete this topic MENINGOCOCCAL VACCINE Aged Out No shakir frank eligible based on patient's age to complete this topic Goals Goal Patient Goal Type Associated Problems Recent Progress Patient-Stated? Author Medication Management General On track( 024 9:50 AM VESSEL LINER) Andra Fonseca, RN Note: Expected end date: ongoing Interventions: Take all medications as prescribed Let your doctor know right away about any changes in your medications Make sure to request a refill of your medication at least one week prior to your last dose Medical Devices Implanted Type Area Seamer Device Identifier Shelf Expiration Date Model / Serial / Lot Lens Iol 0 D +18.5 Tulio Mod L Bcnvx - [id number] Implanted:Qty : 1 on 11/05/2020 by Dylan Gil MD at [facility] Right: [employer] 12/03/2024 [id number].185 / [id number] / Lens Iol 0 D +18.5 Tulio Mod L Bcnvx - [id number] Implanted:Qty : 1 on 11/19/2020 by Dylan Gil MD at [facility] Left: [employer] 03/22/2022 SN60WF.185 / [id number] / Eit Cif Cage, H 7 Mm, 8 Degree, S Implanted:Qty : 1 on 04/10/2023 by Ryland Fuentes MD at [facility] N/A: Spine Cervical [id number] / / [id number] Eit Cif Cage, H 7mm, 8 Degree, S Implanted:Qty : 1 on 04/10/2023 by Ryland Fuentes MD at [facility] N/A: Spine Cervical [id number] / / [id number] Graft Bone Ac Cnxs Dbm 2.5ml Ptty Rtu - [id number] Implanted:Qty : 1 on 04/10/2023 by Ryland Fuentes MD at [facility] N/A: Spine Cervical [employer] 11/18/2023 / [id number] / Eit Cif Cage, H 6mm, 8 Degree, S Implanted:Qty : 1 on 04/10/2023 by Ryland Fuentes MD at [facility] N/A: Spine Cervical [id number] / / [id number] Description:IMPLEMENTATION CONSULTANT- EI T Plate Three Lev 54mm Implanted:Qty : 1 on 04/10/2023 by Ryland Fuentes MD at [facility] N/A: Spine Cervical Depuy Spine [id number] / / Screw 4mm 14mm Spne Crv Ant Laura Slf-Tap Implanted:Qty : 4 on 04/10/2023 by Ryland Fuentes MD at [facility] N/A: Spine Cervical Depuy Spine [id number] / / Scrw Variable Selftap 4.0mm X 16.0mm Implanted:Qty : 3 on 04/10/2023 by Ryland Fuentes MD at [facility] N/A: Spine Cervical Depuy Spine [id number] / / Screw 4.5mm 16mm Ovsz Spne Crv Ant Laura Implanted:Qty : 1 on 04/10/2023 by Ryland Fuentes MD at [facility] N/A: Spine Cervical Depuy Spine [id number] / / Graft Bone Infs Bvn Clgn Rhbmp-2 Sm 2.8 Implanted:Qty : 1 on 10/05/2023 by Ryland Fuentes MD at [facility] [employer] 10/21/2024 [id number] / / [id number] Graft Bone Pliafx Prm Bone Fbr 10cc Implanted:Qty : 1 on 10/05/2023 by Ryland Fuentes MD at [facility] N/A: Spine Cervical [employer] [id number] / / Screw 3.5 X 14 Implanted:Qty : 2 on 10/05/2023 by Ryland Fuentes MD at [facility] N/A: Spine Cervical [id number] / [id number] / Screw 3.5 X 12 Implanted:Qty : 6 on 10/05/2023 by Ryland Fuentes MD at [facility] N/A: Spine Cervical [id number] / [id number] / Screw 3.5 X 20 Implanted:Qty : 2 on 10/05/2023 by Ryland Fuentes MD at [facility] N/A: Spine Cervical [id number] / [id number] / Caps Implanted:Qty : 10 on 10/05/2023 by Ryland Fuentes MD at [facility] N/A: Spine Cervical [id number] / [id number] / Rods 70mm Implanted:Qty : 2 on 10/05/2023 by Ryland Fuentes MD at [facility] N/A: Spine Cervical [id number] / [id number] / Dev Clsr 31mm Watchman Flx Pro Lt Atr - [id number] Implanted:Qty : 1 on 02/08/2024 by Lamberto Potts MD at [facility] [employer] [id number] 10/01/2026 [id number] / [id number] / [id number] Explanted Type Area Seamer Device Identifier Shelf Expiration Date Model / Serial / Lot Scrw Variable Selftap 4.0mm X 16.0mm Explanted:Qty: 1 on 04/10/2023 by Ryland Fuentes MD at [facility] N/A: Spine Cervical Depuy Spine [id number] / / Procedures Procedure Name Priority Date/Time Associated Diagnosis Comments ECHO JAE COMPLETE W 3D Routine 1:48 PM VESSEL LINER Paroxysmal atrial fibrillation (HCC) CCL CIRCULAR SAW EDGE FUSER DIAGNOSTIC JAE Routine 03/22/2024 1:25 PM VESSEL LINER CARDIAC EKG ORDER 03/19/2024 11: 00 AM VESSEL LINER XR CHEST 2VW STAT 03/16/2024 4:57 PM VESSEL LINER Acute cough TROPONIN-I HIGH SENSITIVE REFLEX 1HOUR Timed 03/16/2024 4:52 PM VESSEL LINER B-TYPE NATRIURETIC PEPTIDE STAT 03/16/2024 3:32 PM VESSEL LINER TROPONIN-I HIGH SENSITIVE BASELINE + 1HR STAT 03/16/2024 3:32 PM VESSEL LINER PHOSPHORUS BLOOD STAT 03/16/2024 3:32 PM VESSEL LINER COMPREHENSIVE METABOLIC PANEL STAT 03/16/2024 3:32 PM VESSEL LINER CBC W AUTO DIFFERENTIAL STAT 03/16/2024 3:32 PM VESSEL LINER SARS-COV-2 (COVID-19) FLU A/B RSV PCR RAPID STAT 03/16/2024 3:10 PM VESSEL LINER EKG 12-LEAD STAT 03/16/2024 2:48 PM VESSEL LINER Shortness of breath CBC W AUTO DIFFERENTIAL Routine 03/15/2024 8:45 AM VESSEL LINER Presence of Watchman left atrial appendage closure device Atrial fibrillation, unspecified type (HCC) BASIC METABOLIC PANEL (CALCIUM TOTAL) Routine 03/15/2024 8:45 AM VESSEL LINER Presence of Watchman left atrial appendage closure device Atrial fibrillation, unspecified type (HCC) XR CERVICAL SPINE 2 OR 3VW Routine 03/12/2024 2:45 PM VESSEL LINER S/P cervical spinal fusion APHERESIS/TRANSFUSION ORDER 02/19/2024 1:25 PM VESSEL LINER PREPARE RBC LEUKOREDUCED UNIT Routine 02/11/2024 1:17 AM VESSEL LINER HEMOGLOBIN A1C Routine 02/10/2024 1:08 AM VESSEL LINER EKG 12-LEAD Routine 02/09/2024 7:42 PM VESSEL LINER Paroxysmal atrial fibrillation (HCC) GLUCOSE - POINT OF CARE Routine 02/09/2024 7:34 PM VESSEL LINER HEPATITIS B SURFACE ANTIGEN W RFLX CONFIRMATION STAT 02/09/2024 12:34 PM VESSEL LINER HEMODIALYSIS INPATIENT Routine 12:02 PM VESSEL LINER MAGNESIUM BLOOD Routine 02/09/2024 9:04 AM VESSEL LINER RENAL FUNCTION PANEL Routine 02/09/2024 9:04 AM VESSEL LINER CBC W/O DIFFERENTIAL Routine 02/09/2024 9:04 AM VESSEL LINER GLUCOSE - POINT OF CARE Routine 02/09/2024 8:47 AM VESSEL LINER GLUCOSE - POINT OF CARE Routine 02/09/2024 8:12 AM VESSEL LINER EKG 12-LEAD Routine 02/09/2024 8:11 AM VESSEL LINER Chest pain, unspecified type ACT LR - POCT ([facility]) Routine 02/08/2024 6:03 PM VESSEL LINER GLUCOSE - POINT OF CARE Routine 02/08/2024 5:52 PM VESSEL LINER CCL LEFT ATRIAL APPENDAGE CLOSURE Routine 02/08/2024 5:28 PM VESSEL LINER Paroxysmal atrial fibrillation (HCC) ACT LR - POCT ([facility]) Routine 02/08/2024 5:21 PM VESSEL LINER ACT LR - POCT ([facility]) Routine 02/08/2024 5:13 PM VESSEL LINER ENDOTRACHEAL TUBE NOTE Routine 3:52 PM VESSEL LINER ECHO JAE PROCEDURAL Routine 02/08/2024 3 :35 PM VESSEL LINER Paroxysmal atrial fibrillation (HCC) ANTIBODY IDENTIFICATION Routine 02/08/2024 2:07 PM VESSEL LINER ALEAH DIRECT Routine 02/08/2024 2:07 PM VESSEL LINER TYPE + SCREEN PANEL STAT 02/08/2024 2 :07 PM VESSEL LINER CBC W/O DIFFERENTIAL [place] 02/08/2024 2:07 PM VESSEL LINER HFrEF (heart failure with reduced ejection fraction) (HCC) BASIC METABOLIC PANEL (CALCIUM TOTAL) [place] 02/08/2024 2:07 PM VESSEL LINER HFrEF (heart failure with reduced ejection fraction) (HCC) CCL CIRCULAR SAW EDGE FUSER DIAGNOSTIC JAE Routine 01/01/2024 3:12 PM VESSEL LINER ECHO JAE COMPLETE Routine 01/01/2024 3:1 1 PM VESSEL LINER Pre-procedural cardiovascular examination BASIC METABOLIC PANEL (CALCIUM TOTAL) STAT 01/01/2024 1:55 PM VESSEL LINER Atrial fibrillation, unspecified type (HCC) CBC W AUTO DIFFERENTIAL STAT 01/01/2024 1:55 PM VESSEL LINER Atrial fibrillation, unspecified type (HCC) EKG 12-LEAD Routine 01/01/2024 1:39 PM VESSEL LINER Atrial fibrillation, unspecified type (HCC) IMMUNOFIXATION BLOOD Routine 12/28/2023 3:26 PM VESSEL LINER NICM (nonischemic cardiomyopathy) (HCC) FL SWALLOWING FUNCTION STUDY Routine 12/28/2023 2:32 PM VESSEL LINER Oropharyngeal dysphagia IMMUNOFIXATION BLOOD Routine 12/27/2023 11:51 AM VESSEL LINER CBC W AUTO DIFFERENTIAL Routine 12/27/2023 11:51 AM VESSEL LINER NICM (nonischemic cardiomyopathy) (HCC) COMPREHENSIVE METABOLIC PANEL Routine 12/27/2023 11:51 AM VESSEL LINER NICM (nonischemic cardiomyopathy) (HCC) KAPPA/LAMBDA LITE CHAIN FREE PANEL Routine 12/27/2023 11:51 AM VESSEL LINER NICM (nonischemic cardiomyopathy) (HCC) HEPATITIS C AB SCREEN RFLX NAAT QUANT STAT 10/18/2023 4:48 PM CDT MAMMO BILAT SCREENING Routine 10/13/2021 Screening mammogram for breast cancer ENDOSCOPY, COLON, DIAGNOSTIC Routine 12/31/2020 8:24 AM VESSEL LINER DEXA BONE DENSITY AXIAL SKELETON Routine 01/26/2016 9:02 AM VESSEL LINER from Last 3 Months or Most Recently Relevant to Health Maintenance Results * ECHO JAE COMPLETE W 3D (03/22/2024 1:48 PM VESSEL LINER) Only the most recent of2 resultswithin the time period is included. MV pk maryam regurg 419.135 cm/s SSM CV FUJI PACS MR VTI 172.886 cm SSM CV FUJ I PACS Anatomical Region Laterality Modality Ultrasound 03/22/2024 12:5 6 PM VESSEL LINER Narrative 03/22/2024 5:03 PM VESSEL LINER Summary ??* Watchman device is well positioned [...] with abdominal pressure is negative for a nufet-qa-qtly shunt. ??* There is moderate mitral valve regurgitation. ??* The ascending aorta is mildly dilated at 3.8 cm. ??* Atherosclerotic plaque in the thoracic aortic arch and descending aorta. Patient Info Name: ? Moy Leos Age: ? 68 years : ? 1955 Gender: ? Female Accession #: ? [id number] Ht: ? 62 in Wt: ? 162 lb BSA: ? 1.82 m2 BP: ? 135 / ? 83 mmHg Exam Date: ? 03/22/2024 12:56 PM Patient Status: ? RIB Study Site: ? [facility] Primary Location: ? [facility] EStudy Info Technical Quality: ? Good Exam [...] Bahman Ann Attending Physician: ? Bahman Ann Human Performance Consultant: ? Falguni Belle Nurse: ? Pura Joshiones [...] with abdominal pressure is negative for a iwmck-xt-icsa shunt. Atrial Appendage ??Watchman device is well positioned within the left atrial appendage with no dominic-device leak. No external thrombus present. Aortic [...] and with abdominal pressureis negative for a rmcpq-cu-sndg shunt. * There is moderate mitral valve regurgitation. * The ascending aorta is mildly dilated at 3.8 cm. * Atherosclerotic plaque in the thoracic aortic arch and descendingaorta. Patient Info Name: Moy Leos Age: 68 years : 1955 Gender: Female Ht: 62 in Wt: 162 lb BSA: 1.82 m2 BP: 135 / 83 mmHg Exam Date: 03/22/2024 12:56 PM Patient Status: MDB Study Site: [facility] Primary Location: [facility] EStudy Info Technical Quality: Good Exam Type: [...] Provider: Bahman Ann Attending Physician: Bahman Ann Human Performance Consultant: Falguni Belle Nurse: Pura Cox Performing Physician: [...] andwith abdominal pressure is negative for a aewxn-lj-jydw shunt. Atrial Appendage Watchman device is well [...] Bahman Ann MD ECHO CUPID * CCL CIRCULAR SAW EDGE FUSER DIAGNOSTIC JAE (03/22/2024 1:25 PM VESSEL LINER) Only the most recent of3 resultswithin the time period is included. Anatomical Region Laterality Modality X-Ray Angiograph y Narrative 03/22/2024 1:37 PM VESSEL LINER This case was auto-finalized by a system utility. The result for this JAE exam is stored on the other JAE procedure. Please see the other line in chart review for the result. Bahman Ann MD CV CARDIAC CATH CUPID PROCS * CARDIAC EKG ORDER (03/19/2024 11:00 AM VESSEL LINER) Narrative 03/19/2024 11:00 AM VESSEL LINER Ordered by an unspecified provider. Scanned Document CARDIAC SERVICES ORD ERABLES * XR CHEST 2VW (03/16/2024 4:57 PM VESSEL LINER) Anatomical Region Laterality Modality Chest Digital Radiogra phy 03/16/2024 5:02 PM VESSEL LINER Impressions 03/16/2024 11:43 PM VESSEL LINER IMPRESSION: There is a right IJ approach [...] hernia. > Dictated by Ariel Crain DO (Energy And Conservation Technician), 03/16/2024 5:05 PM. IIris MD have personally reviewed and interpreted this examination/study. > Interpreting Provider: Iris Carbajal MD on 03/16/2024 11:43 PM Narrative 03/16/2024 11:43 PM VESSEL LINER PROCEDURE: ??XR CHEST 2VW, DATE/TIME OF EXAM: ??03/16/2024 4:58 PM, LOCATION [facility] INDICATION: R05.1: Acute cough ADDITIONAL CLINICAL INFORMATION: Ordering Provider Reason For Exam: ??r/o pneumonia COMPARISON: Chest x-ray 10/09/2023 Procedure Note Iris Carbajal MD - 03/16/2024 PROCEDURE: XR CHEST 2VW, DATE/TIME OF EXAM: 03/16/2024 4:58 PM, LOCATION [facility] INDICATION: R05.1: Acute cough ADDITIONAL CLINICAL INFORMATION: [...] hernia. > Dictated by Ariel Crain DO (Energy And Conservation Technician), 03/16/2024 5:05PM. I, Iris Carbajal MD have personally reviewed and interpreted this examination/study. > Interpreting Provider: Iris Carbajal MD on 03/16/2024 11:43 PM Debbi CERDA DIAGNOSTIC I MAGING ORDERABLES * (ABNORMAL) TROPONIN-I HIGH SENSITIVE REFLEX 1HOUR (03/16/2024 4:52 PM VESSEL LINER) Troponin I High Sensitive 179(H) <=14 ng/L 03/16/2024 6:19 PM VESSEL LINER [facility] Delta Troponin I HS <0 <6 ng/L 03/16/2024 6:19 PM VESSEL LINER [facility] Blood BLOOD SPECIMEN / Unknown Venipuncture / Unknown 03/16/2024 4:52 PM VESSEL LINER 03/16/2024 5:40 PM VESSEL LINER Debbi ADDISONSWEEPER DRIVER LAB - CHEMIS TRY ORDERABLES [facility] [address] [place] [phone], [facility] [phone] * (ABNORMAL) TROPONIN-I HIGH SENSITIVE BASELINE + 1HR (03/16/2024 3:32 PM VESSEL LINER) Troponin I High Sensitive 305(HH) <=14 ng/L 03/16/2024 4:29 PM VESSEL LINER [facility] Blood BLOOD SPECIMEN / Unknown Venipuncture / Unknown 03/16/2024 3:32 PM VESSEL LINER 03/16/2024 3:42 PM VESSEL LINER Debbi Baerchacha BLADE OPERATOR-SWEEPER DRIVER LAB - CHEMIS TRY ORDERABLES [facility] [address] [place] [address], [facility] [phone] * (ABNORMAL) CBC W AUTO DIFFERENTIAL (03/16/2024 3:32 PM VESSEL LINER) Only the most recent of4 resultswithin the time period is included. Pathologist [facility] WBC 6.9 4.0 - 10.7 x10E9/L 03/16/2024 3:49 PM [facility] RBC Count 3.07(L) 3.90 - 5.20 x10E12/L 03/16/2024 3:49 PM [facility] Hemoglobin 8.5(L) 11.9 - 15.8 g/dL 03/16/2024 3:49 PM [facility] Hematocrit 27.3(L) 34.8 - 46.1 % 03/16/2024 3:49 PM [facility] MCV 88.9 80.0 - 98.0 fL 03/16/2024 3:49 PM [facility] MCH 27.7 26.7 - 33.6 pg 03/16/2024 3:49 PM [facility] MCHC 31.1(L) 31.7 - 36.3 g/dL 03/16/2024 3:49 PM [facility] RDW-CV 16.3(H) 11.3 - 14.8 % 03/16/2024 3:49 PM [facility] Platelet Count 260 150 - 420 x10E9/L 03/16/2024 3:49 PM [facility] MPV 9.7 7.8 - 11.4 fL 03/16/2024 3:49 PM [facility] Neutrophil % 63.4 41.0 - 74.0 % 03/16/2024 3:49 PM [facility] Lymphocyte % 15.8(L) 17.0 - 47.0 % 03/16/2024 3:49 PM [facility] Monocyte % 12.5(H) 3.0 - 11.0 % 03/16/2024 3:49 PM [facility] Eosinophil % 6.7 0.0 - 7.0 % 03/16/2024 3:49 PM [facility] Basophil % 0.4 0.0 - 1.6 % 03/16/2024 3:49 PM [facility] Immature Granulocytes % 1.2(H) 0.0 - 1.0 % 03/16/2024 3:49 PM [facility] Neutrophil Absolute 4.37 1.60 - 7.50 x10E9/L 03/16/2024 3:49 PM [facility] Lymphocyte Absolute 1.09 1.00 - 4.40 x10E9/L 03/16/2024 3:49 PM [facility] Monocyte Absolute 0.86 0.15 - 1.00 x10E9/L 03/16/2024 3:49 PM [facility] Eosinophil Absolute 0.46 0.00 - 0.60 x10E9/L 03/16/2024 3:49 PM [facility] Basophil Absolute 0.03 0.00 - 0.13 x10E9/L 03/16/2024 3:49 PM [facility] NRBC 0.3(H) <=0.0 /100 WBC 03/16/2024 3:49 PM [facility] Blood BLOOD SPECIMEN / Unknown Venipuncture / Unknown 03/16/2024 3:32 PM VESSEL LINER 03/16/2024 3:42 PM [facility] Debbi Peralta BLADE OPERATOR-SWEEPER DRIVER LAB - HEMATO LOGY ORDERABLES [facility] [address] [place] [address], [facility] [phone] * (ABNORMAL) B-TYPE NATRIURETIC PEPTIDE (03/16/2024 3:32 PM [facility]) BNP 620(H) <100 pg/mL 03/16/2024 4:13 PM [facility] Comment: A decision threshold of 100 pg/mL [...] Unknown Venipuncture / Unknown 03/16/2024 3:32 PM VESSEL LINER 03/16/2024 3:41 PM VESSEL LINER Debbi Peralta BLADE OPERATOR-SWEEPER DRIVER LAB - CHEMIS TRY ORDERABLES Performing Organization Address [facility] de Phone Number [facility] [address] [place] [phone], [facility] [phone] * (ABNORMAL) COMPREHENSIVE METABOLIC PANEL (03/16/2024 3:32 PM VESSEL LINER) Only the most recent of2 resultswithin the time period is included. BUN 32(H) 7 - 26 mg/dL 03/16/2024 4:29 PM [facility] Creatinine 7.76(H) 0.56 - 0.96 mg/dL 03/16/2024 4:29 PM [facility] Sodium 141 136 - 145 mmol/L 03/16/2024 4:29 PM [facility] Potassium 4.6(H) 3.5 - 4.5 mmol/L 03/16/2024 4:29 PM [facility] Comment:Hemolysis detected i n this specimen. Hemolysis may cause false elevations in potassium leading to pseudohyperkalemia or masked hypokalemia. Recommend repeat testing if clinically indicated. Chloride 102 98 - 107 mmol/L 03/16/2024 4:29 PM [facility] CO2 24 22 - 29 mmol/L 03/16/2024 4:29 PM [facility] Glucose 80 70 - 99 mg/dL 03/16/2024 4:29 PM [facility] Calcium 10.0 8.4 - 10.2 mg/dL 03/16/2024 4:29 PM [facility] Protein Total 7.8 6.0 - 8.3 g/dL 03/16/2024 4:29 PM [facility] Comment:Hemolysis detected i n this specimen. Hemolysis is known to cause elevations in this analyte. Caution should be exercised in the interpretation of this result. Recommend repeat testing if clinically indicated. Albumin 3.3(L) 3.4 - 5.0 g/dL 03/16/2024 4:29 PM [facility] Bilirubin Total 0.6 0.2 - 1.2 mg/dL 03/16/2024 4:29 PM [facility] Alkaline Phosphatase 142 40 - 150 U/L 03/16/2024 4:29 PM [facility] ALT 7 5 - 55 U/L 03/16/2024 4:29 PM [facility] AST 42(H) 5 - 34 U/L 03/16/2024 4:29 PM [facility] Comment:Hemolysis detected i n this specimen. Hemolysis is known to cause elevations in this analyte. Caution should be exercised in the interpretation of this result. Recommend repeat testing if clinically indicated. Anion Gap 15 6 - 16 03/16/2024 4:29 PM [facility] BUN/Creatinine Ratio 4(L) 7 - 23 02/21 4:29 PM [facility] Osmolality Calculated 298(H) 275 - 295 mOsm/kg 03/16/2024 4:29 PM [facility] Albumin/Globulin Ratio 0.7(L) 1.1 - 2.3 03/16/2024 4:29 PM [facility] eGFR by CKD-EPI 5(L) >=90 mL/min/1 .73 m2 03/16/2024 4:29 PM [facility] Blood BLOOD SPECIMEN / Unknown Venipuncture / Unknown 03/16/2024 3:32 PM VESSEL LINER 03/16/2024 3:42 PM VESSEL LINER Debbi Peralta BLADE OPERATOR-[employer] LAB - CHEMIS TRY ORDERABLES [address] [address], [facility] [phone] * PHOSPHORUS BLOOD (03/16/2024 3:32 PM VESSEL LINER) Phosphorus 4.8 2.9 - 5.1 mg/dL 03/16/2024 4:27 PM [facility] Blood BLOOD SPECIMEN / Unknown Venipuncture / Unknown 03/16/2024 3:32 PM VESSEL LINER 03/16/2024 3:42 PM VESSEL LINER Debbi Peralta BLADE OPERATOR-[employer] LAB - CHEMIS TRY ORDERABLES [address] [address], [place] [phone] * (ABNORMAL) SARS-COV-2 (COVID-19) FLU A/B RSV PCR RAPID (03/16/2024 3:10 PM VESSEL LINER) [facility] COVID-19 PCR Not detected Not detected 03/16/19 3:58 PM VESSEL LINER [facility] Influenza A PCR Detected(A) Not detected 03/16/2024 3:58 PM VESSEL LINER [facility] Influenza B PCR Not detected Not detected 03/16/2024 3:58 PM VESSEL LINER [facility] RSV PCR Not detected Not detected 03/16/2024 3:58 PM VESSEL LINER [facility] Microbiology SPECIMEN FROM NASOPHARYNGEAL STRUCTURE / Unknown Collection / Unknown 03/16/2024 3:10 PM VESSEL LINER 03/16/2024 3:15 PM VESSEL LINER Narrative [facility] - 03/16/2024 3:58 PM VESSEL LINER Droplet Precautions Required. This nucleic acid amplification [...] assay are available upon request. Debbi Peralta BLADE OPERATOR-SWEEPER DRIVER LAB - MICROB IOLOGY ORDERABLES [facility] [address] [place] [phone], [facility] [phone] * EKG 12-LEAD (03/16/2024 2:48 PM VESSEL LINER) Only the most recent of4 resultswithin the time period is included. [facility] Ventricular Rate 87 BPM [facility] MUSE Atrial Rate 87 BPM [facility] MUSE P-R Interval 152 ms [facility] M[facility] QRS Duration ms 118 ms [facility] MUSE Q-T Interval ms 400 ms [facility] QTC Calculation (Bezet) 481 ms [facility] MUSE Calculated P Bertrand 69 degrees [facility] MUSE Calculated R Bertrand -43 degrees [facility] MUSE Calculated T Bertrand 98 degrees [facility] MUSE Interpretation EKG NORMAL SINUS RHYTHM WITH SINUS ARRHYTHMIA LEFT AXIS DEVIATION MINIMAL VOLTAGE CRITERIA FOR LVH, MAY BE NORMAL VARIANT ( Juan product ) ANTEROSEPTAL INFARCT (CITED ON OR BEFORE 01-JAN-2024) ABNORMAL ECG WHEN COMPARED WITH ECG OF 09-FEB-2024 19:42, SIGNIFICANT CHANGES HAVE OCCURRED Confirmed by SENTHIL LANCE MD ([id number]) on 03/18/2024 8:05:11 AM [facility] MUSE 03/16/2024 2:48 PM VESSEL LINER 03/18/2024 8:05 AM VESSEL LINER Debbi Peralta BLADE OPERATOR-SWEEPER DRIVER ECG ORDERABL ES [facility] M[facility] * (ABNORMAL) BASIC METABOLIC PANEL (BMP) (03/15/2024 8:45 AM VESSEL LINER) Only the most recent of3 resultswithin the [...] BLOOD SPECIMEN / Unknown 03/15/2024 8:45 AM VESSEL LINER 03/15/2024 Narrative [facility] INSURANCE BILL - 03/16/2024 6:10 AM VESSEL LINER Performed at: ??01 - [facility] [address] ??[id number] Driver Courier: El Fan PhD, Phone: ??[phone] Bahman Ann MD LAB - CHEMISTRY ORDERABLES [facility] INSURANCE BILL [address] [place] [address] * XR Cervical Spine 2 or 3Vw (03/12/2024 2:45 PM VESSEL LINER) Anatomical Region Laterality Modality Spine Computed Radiogr aphy 03/12/2024 3:29 PM VESSEL LINER Impressions 03/12/2024 3:37 PM VESSEL LINER IMPRESSION: Redemonstration of postoperative changes cervical spinal fusion as described above, unchanged compared to prior exam. The report was drafted by Emil Carrillo MD (vice president biostatistics) 03/12/2024 3:29 PM. IMaria Eugenia MD have personally reviewed and interpreted this examination/study. > Interpreting Provider: Maria Eugenia Howard MD on 03/12/2024 3:37 PM Narrative 03/12/2024 3:37 PM VESSEL LINER PROCEDURE: ??XR CERVICAL SPINE 2 OR 3VW, DATE/TIME OF EXAM: ??03/12/2024 2:45 PM, LOCATION ??[facility] INDICATION: Z98.1: S/P cervical spinal fusion ADDITIONAL [...] 3VW, DATE/TIME OF EXAM: 52:45 PM, LOCATION [facility] INDICATION: Z98.1: S/P cervical spinal fusion ADDITIONAL [...] report was drafted by Emil Carrillo MD (vice president biostatistics) 03/12/2024 3:29 PM. I, Maria Eugenia Howard MD have personally reviewed and interpreted this examination/study. > Interpreting Provider: Maria Eugenia Howard MD on 03/12/2024 3:37 PM Ryland Fuentes MD DIAGNOSTIC IMAGING O RDERABLES * APHERESIS/TRANSFUSION ORDER (02/19/2024 1:25 PM VESSEL LINER) Narrative 02/19/2024 1:25 PM VESSEL LINER Ordered by an unspecified provider. Scanned Document NURSING - VITAL SIGN S AND ASSESSMENT * PREPARE (CROSSMATCH) RBC UNIT(S), 4 Units (02/11/2024 1:17 AM VESSEL LINER) Unit Description AS1 LR PRBC [facility] BLOOD [facility] LAB Unit ABO O [facility] Unit Rh NEG [facility] Product Number R02 [facility] B LOOD BANK LAB Unit Donor # [id number] [facility] Unit Status released [facility] BLOO D BANK LAB Product Code [id number] [facility] OD BANK LAB Blood Type Barcode 9500 [facility]OD [facility] LAB Expiration Date S BLOOD BANK LAB Unit Description AS1 LR PRBC [facility] Unit ABO O [facility] Unit Rh NEG [facility] Product Number R43 [facility] B LOOD BANK LAB Unit Donor # [id number] [facility] BLOOD [facility] Unit Status released [facility] BLOO D BANK LAB Product Code [id number] [facility] OD BANK LAB Blood Type Barcode 9500 [facility] BLOOD [facility] LAB Expiration Date S BLOOD BANK LAB Unit Description AS1 LR PRBC [facility] BLOOD [facility] Unit ABO O [facility] Unit Rh NEG [facility] BLOOD [facility] Product Number R44 [facility] B LOOD BANK LAB Unit Donor # [id number] [facility] BLOOD [facility] Unit Status released [facility] BLOO D BANK LAB Product Code [id number] [facility] BLO OD BANK LAB Blood Type Barcode 9500 [facility] BLOOD [facility] LAB Expiration Date S BLOOD BANK LAB Unit Description AS1 LR PRBC [facility] BLOOD B[facility] Unit ABO O [facility] B[facility]OD [facility] Unit Rh NEG [facility] BLOOD [facility] Product Number R02 [facility] B LOOD BANK LAB Unit Donor # [id number] [facility] BLOOD [facility] Unit Status released [facility] BLOO D BANK LAB Product Code [id number] [facility] BLO OD BANK LAB Blood Type Barcode 9500 [facility] BLOOD BANK LAB Expiration Date S BLOOD BANK LAB Blood Bank BLOOD SPECIMEN / Unknown 02/08/2024 2:11 PM VESSEL LINER Laura Sabillon BLADE OPERATOR-SWEEPER DRIVER LAB - BLOOD BA NK ORDERABLES [facility] BLOOD BANK LAB [address] [place] [address], [facility] [phone] * HEMOGLOBIN A1C (02/10/2024 1:08 AM VESSEL LINER) Hemoglobin A1c 5.1 <=5.6 % 02/10/2024 9:12 AM [facility] Estimated Average Glucose 100 mg/dL 02/10/2024 9:12 AM [facility] Comment: HbA1c Interpretation: Normal : < 5.7% Pre-diabetes: 5.7-6.4% Diabetes: Equal to or greater than 6.5% Test results diagnostic of diabetes should be repeated for confirmation. Treatment target values recommended by ADA and other clinical organizations should be used to evaluate metabolic control in patients. Reference: [place] Diabetes Association, Standards of Care in Diabetes -2020 In patients 70 years and older consider HbA1c target range of 7.0-7.5% (Reference: Jayme Go et al. JAMDA. 2012) The Sebia assay for the measurement of HbA1c is a National Glycohemoglobin Standardization Program (NGSP) certified method. Blood BLOOD SPECIMEN / Unknown Lab Venipuncture / Unknown 02/10/2024 1:08 AM VESSEL LINER 02/10/2024 1:44 AM VESSEL LINER Lamberto Potts MD LAB - CHEMISTRY RASHID INFANTE Performing Organization Address City/[facility]/ZIP Co de Phone Number [facility] [address] [place] [phone], [facility] [phone] * (ABNORMAL) GLUCOSE - POINT OF CARE (02/09/2024 7:34 PM VESSEL LINER) Only the most recent of4 resultswithin the time period is included. Pathologist [facility] Glucose WB/POC 118(H) 70 - 99 mg/dL 02/09/2024 7:35 PM VESSEL LINER [facility] Specimen Type Cap Fingerstick 2023 7:35 PM VESSEL LINER [facility] Blood BLOOD SPECIMEN / Unknown 02/09/2024 7:34 PM VESSEL LINER 02/09/2024 7:35 PM VESSEL LINER Lamberto Potts MD LAB - POINT OF CARE ORDERABLES Performing Organization Address [facility]/ZIP Co de Phone Number [address] [address], [facility] [phone] * HEPATITIS B SURFACE ANTIGEN W RFLX CONFIRMATION (02/09/2024 12:34 PM VESSEL LINER) [facility] Hepatitis B Virus Surface Antigen Non-reacti ve Non-reacti ve 02/09/2024 2:12 PM VESSEL LINER [facility] Blood BLOOD SPECIMEN / Unknown Lab Venipuncture / Unknown 02/09/2024 12:34 PM VESSEL LINER 02/09/2024 1:01 PM VESSEL LINER China Arriola MD LAB - CHEMISTRY RASHID INFANTE Performing Organization Address City/[facility]/ZIP Co de Phone Number [address] [address], [facility] [phone] * (ABNORMAL) CBC W/O DIFFERENTIAL (02/09/2024 9:04 AM VESSEL LINER) Only the most recent of2 resultswithin the time period is included. [facility] WBC 7.9 4.0 - 10.7 x10E9/L 02/09/2024 10:09 AM VESSEL LINER [facility] RBC Count 3.10(L) 3.90 - 5.20 x10E12/L 02/09/2024 10:09 AM [facility] Hemoglobin 8.8(L) 11.9 - 15.8 g/dL 02/09/2024 10:09 AM [facility] Hematocrit 27.6(L) 34.8 - 46.1 % 02/09/2024 10:09 AM [facility] MCV 89.0 80.0 - 98.0 fL 02/09/2024 10:09 AM [facility] MCH 28.4 26.7 - 33.6 pg 02/09/2024 10:09 AM [facility] MCHC 31.9 31.7 - 36.3 g/dL 02/09/2024 10:09 AM [facility] RDW-CV 15.8(H) 11.3 - 14.8 % 02/09/2024 10:09 AM [facility] Platelet Count 193 150 - 420 x10E9/L 02/09/2024 10:09 AM [facility] MPV 10.0 7.8 - 11.4 fL 02/09/2024 10:09 AM [facility] Blood BLOOD SPECIMEN / Unknown Lab Venipuncture / Unknown 02/09/2024 9:04 AM [facility] 02/09/2024 9:59 AM [facility] Lamberto Potts MD LAB - HEMATOLOGY ORD ERABLES [facility] [address] [place] [address] [phone] * (ABNORMAL) RENAL FUNCTION PANEL (02/09/2024 9:04 AM [facility]) BUN 33(H) 7 - 26 mg/dL 02/09/2024 10:32 AM [facility] Creatinine 8.43(H) 0.56 - 0.96 mg/dL 02/09/2024 10:32 AM [facility] Sodium 139 136 - 145 mmol/L 02/09/2024 10:32 AM [facility] Potassium 4.8(H) 3.5 - 4.5 mmol/L 02/09/2024 10:32 AM [facility] Chloride 103 98 - 107 mmol/L 02/09/2024 10:32 AM [facility] CO2 22 22 - 29 mmol/L 02/09/2024 10:32 AM [facility] Glucose 114(H) 70 - 99 mg/dL 02/09/2024 10:32 AM [facility] Albumin 3.0(L) 3.4 - 5.0 g/dL 02/09/2024 10:32 AM [facility] Calcium 9.4 8.4 - 10.2 mg/dL 02/09/2024 10:32 AM [facility] Phosphorus 6.5(H) 2.9 - 5.1 mg/dL 02/09/2024 10:32 AM [facility] Anion Gap 14 6 - 16 02/09/2024 10:32 AM [facility] BUN/Creatinine Ratio 4(L) 7 - 23 02/09/2024 10:32 AM [facility] Osmolality Calculated 296(H) 275 - 295 mOsm/kg 02/09/2024 10:32 AM [facility] eGFR by CKD-EPI 5(L) >=90 mL/min/1.7 3 m2 02/09/2024 10:32 AM [facility] Blood BLOOD SPECIMEN / Unknown Lab Venipuncture / Unknown 02/09/2024 9:04 AM [facility] 02/09/2024 9:59 AM [facility] Lamberto Potts MD LAB - CHEMISTRY RASHID INFANTE [facility] Organization Address City/State/ZIP Co de Phone Number [facility] [address] [place] [address], [facility] [phone] * MAGNESIUM BLOOD (02/09/2024 9:04 AM [facility]) Magnesium 2.0 1.6 - 2.6 mg/dL 02/09/2024 10:32 AM [facility] Blood BLOOD SPECIMEN / Unknown Lab Venipuncture / Unknown 02/09/2024 9:04 AM [facility] 02/09/2024 9:59 AM [facility] Lamberto Potts MD LAB - CHEMISTRY ORDE COLLINLES Performing Organization Address [facility]/ZIP Co de Phone Number [facility] [address] [place] [address], [place] [phone] * ACT LR - POCT ([facility]) (02/08/2024 6:03 PM [facility]) Only the most recent of3 resultswithin the time period is included. ACT LR 289 See result comments sec 02/09/2024 2:40 PM [facility] Blood BLOOD SPECIMEN / Unknown 02/08/2024 6:03 PM [facility] 02/09/2024 2:40 PM [facility] Narrative [facility] - 02/09/2024 2:40 PM [facility] ACT-LR [employer]rapeutics ranges are: Cardiac laboratory scientist = 200-300 seconds Sheath pull = ACT [...] Potts MD LAB - COAGULATION OR DERABLES Performing Organization Address [facility]/ZIP Co de Phone Number [address] [address], [place] [phone] * ETT LINE PERFORMABLE (02/08/2024 3:52 PM [facility]) Narrative Ellen Aguilera Anes Asst - 02/08/2024 3:52 PM [facility] Ellen Aguilera Anes Asst ? 02/08/2024 ??3:53 PM Endotracheal Tube Placement: ? Patient Location: OR. Intubation Event Date/Time: ??02/08/2024 3:33 PM Procedure: intubation ([id number]) Procedure Section: ?? Sedation: under general anesthesia. [...] * ECHO JAE PROCEDURAL (02/08/2024 3:35 PM [facility]) Anatomical Region Laterality Modality Ultrasound 02/08/2024 3:35 PM [facility] Narrative 02/08/2024 6:48 PM [facility] Summary ??* The left atrial appendage is [...] 1955 Gender: ? Female Accession #: ? [id number] Exam Date: ? 02/08/2024 3:35 PM Patient Status: ? I/P Study Site: ? [facility] Primary Location: ? [facility] EStudy Info Exam Type: ? ECHO JAE PROCEDURAL Indications ?I48.0 - Paroxysmal atrial fibrillation (HCC) * A 2D, 3D, color Doppler and spectral Doppler transesophageal echocardiogram was performed. Staff Referring Physician: ? Laura Sabillon Ordering Provider: ? Laura Sabillon Attending Physician: ? Laura Sabillon Human Performance Consultant: ? Bahman Hope Medications ??* Sedation administered and monitored by anesthesia staff. Procedure Details ??Probe passed by the supervisor metal furniture fabrication without difficulty. Atrial Septum ??Iatrogenic ASD with [...] 3:35 PM Patient Status: I/P Study Site: [facility] Primary Location: [facility] EStudy Info Exam Type: ECHO JAE PROCEDURAL Indications I48.0 - Paroxysmal atrial fibrillation (HCC) * A 2D, 3D, color Doppler and spectral Doppler transesophagealechocardiogram was performed. Staff Referring Physician: Laura Sabillon Ordering Provider: Laura Sabillon Attending Physician: Laura Sabillon Human Performance Consultant: Bahman Hope Medications * Sedation administered and monitored by anesthesia staff. Procedure Details Probe passed by the supervisor metal furniture fabrication without difficulty. Atrial Septum Iatrogenic ASD with [...] by Senthil Lance on 02/08/2024 06:48 PM [facility] Ramandeep BLADE OPERATOR-SWEEPER DRIVER ECHO CUPID * TYPE + SCREEN PANEL (02/08/2024 2:07 PM [facility]) Antibody Screen POS 2:55 PM [facility] ABO Rh O NEG 02/08/2024 2:55 PM [facility] Blood Bank BLOOD SPECIMEN / Unknown Venipuncture / Unknown 02/08/2024 2:07 PM [facility] 02/08/2024 2:11 PM [facility] BLADE OPERATOR-SWEEPER DRIVER LAB - BLOOD BA NK ORDERABLES [facility] [address] [place] [address], [facility] [phone] * ALEAH DIRECT (02/08/2024 2:07 PM [facility]) Direct Aleah (BROCK) NEG 02/08/2024 3:58 PM [facility] Blood Bank BLOOD SPECIMEN / Unknown Venipuncture / Unknown 02/08/2024 2:07 PM [facility]ER 02/08/2024 2:11 PM [facility] LAB - BLOOD BA NK ORDERABLES [facility] [address] [place] [address], [place] [phone] * ANTIBODY IDENTIFICATION (02/08/2024 2:07 PM [facility]) Antibody 1 POS, Anti-C 02/08/2024 4:13 PM [facility] Antibody 2 POS, Anti-D 02/08/2024 4:13 PM [facility] Blood Bank BLOOD SPECIMEN / Unknown Venipuncture / Unknown 02/08/2024 2:07 PM [facility]ER 02/08/2024 2:11 PM [facility] LAB - BLOOD BA NK ORDERABLES Performing Organization Address [facility] Co de Phone Number [facility] [address] [place] [address], [place] [phone] * IMMUNOFIXATION BLOOD (12/28/2023 3:26 PM [facility]) Only the most recent of2 resultswithin the time period is included. Pathologist [facility] Immunofixation Serum Normal Pattern Normal Pattern 12/29/2023 4:17 PM [facility] Comment: No monoclonal immunoglobulin detected by serum immunosubtraction. Edilma Rosa PhD, [facility] Clinical Collarette Separator conference planning manager *The electrophoresis pattern and the interpretation have been reviewed and verified by the teaching physician. Blood BLOOD SPECIMEN / Unknown Lab Venipuncture / Unknown 12/28/2023 3:26 PM [facility] 12/28/2023 3:41 PM [facility] Bahman Ann MD LAB - CHEMISTRY ORDERABLES [facility] [address] [place] [phone], [place] [phone] * FL MODIFIED BARIUM SWALLOW W/SPEECH (12/28/2023 2:32 PM [facility]) Anatomical Region Laterality Modality Chest Digital Radiogra phy 12/28/2023 7:41 PM [facility] Impressions 12/28/2023 7:41 PM [facility] IMPRESSION: Modified barium swallow fluoroscopy as described. Please see detailed report from speech pathology staff. > Interpreting Provider: Ashlee Strickland MD on 12/28/2023 7:41 PM Narrative 12/28/2023 7:41 PM [facility] PROCEDURE: ??FL SWALLOWING FUNCTION STUDY DATE/TIME OF [...] LITE CHAIN FREE PANEL (12/27/2023 11:51 AM [facility]ER) Free [place] Light Chains 136.9(H) 3.3 - 19.4 mg/L [facility] INSURANCE BILL Free [place] Light Chains 178.1(H) 5.7 - 26.3 mg/L [facility] INSURANCE BILL [place]/Lambda Ratio 0.77 0.26 - 1.65 [facility] INSURANCE BILL Blood BLOOD SPECIMEN / Unknown 12/27/2023 11:51 AM [facility]ER 12/27/2023 Narrative [facility] INSURANCE BILL - 12/28/2023 3:10 PM [facility] Performed at: ??[facility] - [facility] [address] [facility], [place], [place] ??[id number] Driver Courier: El Fan PhD, Phone: ??[phone] Bahman Ann MD LAB - CHEMISTRY ORDERABLES [facility] INSURANCE BILL [address] [place] [address] * HEPATITIS C AB SCREEN RFLX NAAT QUANT (10/18/2023 4:48 PM CDT) Pathologist [facility] Hepatitis C Antibody Non-react nayeli Non-reac tive 10/18/2023 5:48 PM CDT [facility] Comment:Hepatitis C Antibody screen indicates no [...] Ocasio DO LAB - CHEMISTRY RASHID INFANTE [facility] [address] [place] [phone] [phone] * MAMMO BILAT SCREENING (10/13/2021) Anatomical Region Laterality Modality Breast Bilateral Mammography 10/13/2021 Lety Campbell APRN-ANA MAMMO ORDERABLES * ENDOSCOPY, COLON, DIAGNOSTIC (12/31/2020 8:24 AM [facility]) Report Endoscopy POC Endoscopy Department Report _ Patient Name: Moy Leos ?Procedure Date: 12/31/2020 8:24 AM ? Date of : 1955 Classification: Outpatient ?Gender: Female Ethnicity: Not or ? Race: Black or _ Providers: ?Sterling Davidson MD. Kristopher Mayer MD Referring MD: ? Federico Branham Jr (Referring ) Procedure: ?Colonoscopy Indications: ?High risk colon cancer [...] and ?oxygen saturations were monitored continuously. The ?[id number] was introduced through the anus and ?advanced [...] Procedure Code(s): ? --- Professional --- ? 58362, Colonoscopy, flexible; with removal of tumor(s), polyp(s), or ? other lesion(s) by snare technique Diagnosis Code(s): ?--- Professional --- ?Z86.010, Personal history of colonic polyps ?K64.8, Other hemorrhoids ?K62.1, Rectal polyp ?K63.5, Polyp of colon ?K57.30, Diverticulosis of large intestine without ?perforation or abscess without bleeding CPT copyright 2019 [employer]. All rights reserved. The codes documented in this report are preliminary and upon community health program coordinator review may be revised to meet current compliance requirements. _ Sterling Davidson MD 12/31/2020 9:21:44 AM Note Initiated On: 12/31/2020 8:24 AM Number of Addenda: 0 ? [facility] ? [address] [place], [place] [address] [place] [address] PROVATION 12/31/2020 8:24 AM [facility] Sterling Davidson MD GI PROCEDURE ORDERAB LES Performing Organization Address City/State/[facility] Co de Phone Number [facility] PROVATION * DEXA BONE DENSITY AXIAL SKELETON (01/26/2016 9:02 AM [facility]ER) Anatomical Region Laterality Modality Other Narrative 01/26/2016 9:41 AM [facility] Examination: Dual energy x-ray absorptiometry of the lumbar spine and hip. 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 [address] [place] [address] -[phone] (Work) Cardiovascular Disease 08/01/18 Keya Reina MD [address] [place] [address] [address] [place] [address] Gastroenterology 08/01/18 Osmar Zambrano MD [address] [place] [address] [address] [place] [address] Otolaryngology 08/01/18 Francisco Leos MD [address] [address] Pulmonary Disease 08/01/18 Jc Moreau MD [address] [facility] [address] [place] [address] Nephrology 08/01/18 [place] [address] [place] [address] Um Nurse Cardiac Electrophysiology 09/03/18 [place] [address] [place] [address] Cardiology 04/25/19 Care, [facility] Kidney Transmitter SupervisorBottle Booth Attendant 08/29/19
--- OUTSIDE RECORDS SUMMARY | 2024-03-25 09:09 | XMS_ITS | Clinical Summary ---
Author Organization [facility] [address] Address [address] [place] [address] Care Team Providers Care Touch Up Painter Hand Name Role Phone Carrol Pitts MD, Federico Howe Primary Care Provider Adalberto Linder MD Unavailable [phone] Jc Moreau MD Unavailable [phone] Carmen Chavez RN Unavailable [phone] Allergies Active Allergy Reactions Criticality Noted Date Comments Lisinopril Anxiety,Cough,Dizzin ess,Other (See comments),Palpitations,Shortn ess of breath,Vision changes High 11/01/2012 Voice changed Propoxyphene Shortness of breath,Palpitations,Mental status changes,Vision changes,Dizziness,Eye irritation,Nausea only High 09/28/1987 Valsartan Other (See comments) Medium 11/09/2015 Loses her voice Medications tiZANidine (ZANAFLEX) 4 mg tablet Take 1 tablet (4 mg total) by mouth every 8 (eight) hours as needed 4 Active polyvinyl alcohol (LIQUIFILM TEARS) 1.4 % ophthalmic solution Administer 1 drop into affected eye(s) 3 (three) times a day as needed 4 Active omeprazole (PriLOSEC) 20 mg capsule Take 1 capsule (20 mg total) by mouth 2 (two) times a day 2 Active montelukast (SINGULAIR) 10 mg tablet Take 1 tablet (10 mg total) by mouth nightly at bedtime. Active midodrine (PROAMATINE) 5 mg tablet Take 3 tablets (15 mg total) by mouth 3 (three) times a day 7 Active levothyroxine (SYNTHROID) 50 mcg tablet Take 1 tablet (50 mcg total) by mouth 3 (three) times a week 8 Active levalbuterol (XOPENEX HFA) 45 mcg/actuation inhaler INHALE 1 PUFF BY MOUTH EVERY 6 HOURS NEEDED Active latanoprost (XALATAN) 0.005 % ophthalmic solution Administer 1 drop into affected eye(s) nightly 4 Active lanthanum (FOSRENOL) 1,000 mg chewable tablet Take 1 tablet (1,000 mg total) by mouth Taken with meals 1 Active gabapentin (NEURONTIN) 100 mg capsule Take 2 capsules (200 mg total) by mouth 2 (two) times a day Active Dialyvite 800 0.8 mg tablet Take by mouth daily 4 Active fluticasone propionate (FLONASE) 50 mcg/actuation nasal spray Administer 2 sprays into affected nostril(s) daily 4 Active FLUoxetine 10 mg capsule Take 1 tablet/capsule (10 mg total) by mouth daily Active digoxin (LANOXIN) 125 mcg (0.125 mg) tablet Take 1 tablet (0.125 mg total) by mouth 2 (two) times a week 2 Active calcium acetate,phosph at bind, (PHOSLO) 667 mg capsule Take 1 capsule (667 mg total) by mouth 3 (three) times a day with meals 5 Active atorvastatin (LIPITOR) 40 mg tablet Take 1 tablet (40 mg total) by mouth nightly 4 Active aspirin 81 mg enteric coated tablet Take by mouth daily 5 Active albuterol HFA (PROVENTIL HFA,VENTOLIN HFA,PROAIR HFA) 90 mcg/actuation inhaler Inhale 2 puffs every 6 (six) hours as needed 2 Active acetaminophen (TYLENOL) 500 mg tablet Take 1 tablet (500 mg total) by mouth every 4 (four) hours as needed Active clopidogreL (PLAVIX) 75 mg tablet Take 1 tablet (75 mg total) by mouth daily 4 Active benzonatate (TESSALON) 100 mg capsule 4 Active predniSONE (DELTASONE) 10 mg tablet 4 Active ibuprofen 200 mg tab/cap Take 1 tablet/capsule (200 mg total) by mouth every 6 (six) hours as needed for pain Active HYDROcodone-ac etaminophen (NORCO) 5-325 mg per tabletIndicati ons:Pain Take 1 tablet by mouth every 6 (six) hours as needed for pain 8 tablet 5 Active methylPREDNISo lone (MEDROL DOSEPACK) 4 mg Dosepack 4 03/07/19 25 Discontinu ed(Therapy completed) cinacalcet (SENSIPAR) 60 mg tablet Take 1 tablet (60 mg total) by mouth 3 (three) times a week 03/07/19 25 Discontinu ed(Therapy completed) azithromycin (ZITHROMAX) 250 mg tablet 4 03/07/19 25 Discontinu ed(Therapy completed) apixaban (ELIQUIS) 5 mg tablet Take 1 tablet (5 mg total) by mouth 2 (two) times a day 4 03/04/19 25 Discontinu ed(Therapy completed) HYDROcodone-ac etaminophen (NORCO) 5-325 mg per tabletIndicati ons:Pain Take 1 tablet by mouth every 6 (six) hours as needed for pain 8 tablet 5 03/12/19 25 Discontinu ed(Reorder ) Active Problems Problem Noted Date Diagnosed Date Complication of arteriovenous dialysis fistula 0 03/08/2024 End stage renal disease ([facility]) 03/04/2024 S/P arteriovenous (AV) fistula creation 01/30/20 Steal syndrome as complication of dialysis acces s ([facility]) 01/25/2024 Hyperlipidemia 01/08/2024 Spinal stenosis of lumbar re gion with neurogenic claudication 01/08/2024 Rheumatoid factor positive 01/08/2024 Overview (01/08/2024): RA- 08/1994, no meds Other transient cerebral isc hemic attacks and related syndromes 10/22/2023 Acute postoperative respiratory insufficiency Diplopia 10/19/2023 Neuralgia and neuritis, unspecified 10/19/2023 Other sequelae of cerebral infarction 10/19/2023 Acute right-sided weakness 10/05/2023 Other cord compression 10/05/2023 Cervical disc disorder with myelopathy, cervicothoracic region 10/05/2023 Hemiplegia, unspecified affecting right dominant side 10/05/2023 Postprocedural hematoma of a nervous system organ or structure following other procedure 10/05/2023 Encephalopathy, unspecified 04/10/2023 Osteoporosis 12/29/2022 Cervical stenosis of spine 12/29/2022 Overview (01/08/2024): In ICU for high- MAP goals with pressor needs Moderate mitral regurgitation 11/10/2021 Paraparesis (CMS/HCC) 11/10/2021 Chronic systolic heart failure (CMS/HCC) 021 Overview (01/08/2024): 05/10/2021 Dr. Carrol MORALES 7..2020 Jory Freedman, INSURANCE BILLING CLERK-CREPE MAKER Cardiology Tortuous aorta (CMS/HCC) 10/20/2020 Overview (01/08/2024): 05/10/2021 Dr. Carrol MORALES 3.29.19 CXR Cardiac chambers are enlarged. The aorta is tortuous Chronic hypotension 10/19/2020 Anxiety 05/11/2020 Gastroesophageal reflux disease without esophagi tis 10/10/2019 Hx of adenomatous colonic polyps 10/10/2019 Anemia in chronic kidney disease 04/24/2017 Class 1 obesity with serious comorbidity in adul t 04/24/2017 Renal osteodystrophy 04/24/2017 Other disorders of calcium metabolism 04/24/2017 Rotator cuff tear, right 02/09/2017 Restrictive lung disease 08/15/2016 Typical atrial flutter (CMS/HCC) 08/15/2016 Hyperparathyroidism, secondary renal 07/23/2015 Overview (01/08/2024): 05/10/2021 Dr. Carrol MORALES Paroxysmal atrial fibrillation ([facility]) 016 Overview (01/08/2024): 05/10/2021 Dr. Carrol MORALES Hypertensive disorder 05/17/2012 Type 2 diabetes mellitus without complication ([facility]) 05/17/2012 End-stage renal disease ([facility]) 02/21/2000 Overview (01/08/2024): 05/10/2021 Dr. Carrol MORALES Athscl heart disease of venecia ve coronary artery w/o ang pctrs 02/21/2000 Overview (01/08/2024): Mild, non-obstructive CAD Other specified chronic obstructive pulmonary di sease 02/21/2000 Overview (01/08/2024): Food Mixer Assembler Dr Tobin Other cardiomyopathies 02/21/2000 Overview (01/08/2024): 09/24/2020 Dr. Joselyn MORALES Congestive heart failure ([facility]) 02/21/2000 Obstructive sleep apnea (adult) (pediatric) 02/2000 Overview (01/08/2024): uses CPAP without O2- compliant most nights uses CPAP without O2- compliant most nights Dependence on renal dialysis ([facility]) 1 Generalized anxiety disorder 02/21/2000 Hypertensive heart and chron ic kidney disease with heart failure and with stage 5 chronic kidney disease, or end stage renal disease 02/21/2000 Low back pain, unspecified 02/21/2000 Other chronic pain 02/21/2000 Pure hypercholesterolemia, unspecified 1 Type 2 diabetes mellitus wit h diabetic chronic kidney disease 02/21/2000 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 Transplant Kidney [address] Mail[address] [phone] [place] [address] Carmen Chavez RN Referral - Kidney Txp 03/14/[address] [facility] Transplant Kidney [address] Mail[address] [phone] [place] [address] Lorene Banerjee 03/12/[address] [facility] Surgery [address] [facility] [address] [place] [phone] Adalberto Linder MD Med Management 03/11/2024 Documentation [facility] Transplant Kidney [address] Mailstop [phone] [place] [address] Carmen Chavez RN Referral - Kidney Txp 03/11/2024 Telephone [facility] Transplant Kidney [address] Mailstop [phone] [place] [address] Lorene Banerjee Referral - Kidney Txp 03/08/2024 12:22 PM PLANNING ANALYST Anesthesia Event [facility] Operating Room [facility] [place] [phone] Miguel Becker MD 03/08/2024 12:00 PM PLANNING ANALYST - 03/08/2024 2:30 PM PLANNING ANALYST Surgery [facility] Operating Room [address] [place] [phone] Adalberto Linder MD Revision Left Arm AV Fistula 03/08/2024 9:36 AM PLANNING ANALYST - 03/08/2024 3:38 PM PLANNING ANALYST Hospital Encounter [facility] Operating Room [address] [place] [phone] Adalberto Linder MD Complication of arteriovenous dialysis fistula, subsequent encounter (Primary Dx); End stage renal disease (CMS/HCC) (HCC) Discharge Disposition: Discharge to home or self care 03/07/2024 Telephone [facility] Transplant Kidney [address] Mailstop [phone] [place] [address] Jodi Cooper Referral - Kidney Txp 03/04/2024 1:00 PM PLANNING ANALYST Office Visit [facility] Surgery [address] [phone] Adalberto Linder MD 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, initial encounter (HCC) 02/12/2024 3:00 PM PLANNING ANALYST Office Visit [facility] Surgery [address] [place] [phone] Adalberto Linder MD S/P arteriovenous (AV) fistula creation (Primary Dx) 02/12/2024 1:01 PM PLANNING ANALYST - 02/12/2024 11:59 PM PLANNING ANALYST Hospital Encounter [facility] Vascular Lab [address] [place] [phone] Arteriovenous fistula, acquired (CMS/HCC) (HCC); Pain due to vascular prosthetic devices, implants and grafts, initial encounter ([facility]) Discharge Disposition: Discharge to home or self care 02/07/[address] [facility] Surgery [address] [place] [phone] Adalberto Linder MD Post-op Problem 01/30/2024 2:01 PM PLANNING ANALYST Anesthesia Event [facility] Operating Room [address] [place] [phone] Librado Rodriges DO 01/30/2024 1:15 PM PLANNING ANALYST - 01/30/2024 4:00 PM PLANNING ANALYST Surgery [facility] Operating Room [address] [place] [phone] Adalberto Linder MD Creation Arteriovenous Fistula 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 01/30/2024 10:48 AM PLANNING ANALYST - 02/01/2024 7:09 PM PLANNING ANALYST Hospital Encounter [address] [phone] Adalberot Linder MD End stage renal disease (CMS/HCC) (HCC); 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, initial encounter (HCC) Discharge Disposition: Discharge to home or self care 01/25/2024 2:00 PM PLANNING ANALYST Office Visit [facility] Surgery [address] [phone] Adalberto Linder MD 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, initial encounter (HCC) (Primary Dx); End stage renal disease (CMS/HCC) (HCC) 01/25/2024 12:30 PM PLANNING ANALYST - 01/25/2024 11:59 PM PLANNING ANALYST Hospital Encounter [facility] Vascular Lab [address] [place] [address] End stage renal disease (CMS/HCC) (HCC) Discharge Disposition: Discharge to home or self care 01/08/2024 Orders Only [facility] Surgery [address] [phone] Adalberto Linder MD End stage renal disease (CMS/HCC) (HCC) (Primary Dx) from Last 3 Months Immunizations Name Administration Dates Next Due BCG 10/16/2019, 9,10/11/2017,10/12,09/30/2015,10/08/2014,10/07/2013 ,11/10/2012,05/23/2012 COVID-19 mRNA (iFlipd) 0.3 m L (30 mcg) vaccine (12 years and up) 04/23/2020 Influenza Virus Vaccine Trivalent Mdv 12/03/2021 ,12/04/2020 Influenza, Trivalent, Preser vative Free, Intramuscular 11/19/2015 Influenza, Unspecified 11/22/2023,2022,11/21/2022,11/07,12/24/2018,11/15/2017,11/09/2016 ,11/19/2014,10/30/2013,11/10/2012,08/2011 Moderna SARS-CoV-2 Monovalen t Vaccination (12+ YRS) 01/08/2021,04/23/2020,03/23/2020 Pfizer SARS-CoV-2 Monovalent Vaccination (12+ Yrs) PURPLE 04/02/2020,03/31/2020 Pfizer Sars-Cov-2 Bivalent V accination (12+ YRS) 01/08/2021,03/23/2020 Pneumococcal Conjugate PCV 13 07/15/2019 Pneumococcal Conjugate, Unspecified 09/16/2019,1 Pneumococcal Polysaccharide PPV23 05/10/2021,09/2009 Pneumococcal, Unspecified 09/16/2019 Tdap 11/13/2023,09/28/2022,12/11/2018 ZOSTER Recombinant 01/07/2020,12/11/2018 Surgical History Surgery Date Site/Laterality Comments FL UPPER GI AIR CONTRAST W KUB 06/08/2021 Left HYSTERECTOMY OTHER SURGICAL HISTORY gastric sleeve CHOLECYSTECTOMY PARATHYROIDECTOMY SPINAL FUSION OTHER SURGICAL HISTORY fistula -several surgeries related to this OTHER SURGICAL HISTORY hemodialysis cath andremoval TUNNELED LINE PLACEMENT > 5 YEARS 01/31/2024 N/A Medical History Medical History Date Comments Arrhythmia afib Heart murmur Asthma Pneumonia Chronic bronchitis (HCC) GERD (gastroesophageal reflux disease) Irritable bowel syndrome Chronic kidney disease Chronic pain disorder Stroke (HCC) CHF (congestive heart failure) (CMS/HCC) (HCC) Anemia Social History Tobacco Use Types Packs/Day Years Used Date Smoking Tobacco: Never Smokeless Tobacco: Never Tobacco Cessation:Counseling Given: Not Answered [facility] Dropletities Answer Date Recorded In the past 12 months has [employer], gas, oil, or water The Political Student threatened to shut off services in your home? No 01/31/2024 Social Connection and Isolat ion Panel [NHANES] Answer Date Recorded In a typical week, how many times do you talk on the phone with family, friends, or neighbors? More than three times a week 01/31/2024 How often do you get togethe r with friends or relatives? More than three times a week 01/31/2024 How often do you attend chur or sabianist services? More than 4 times per year 01/31/2024 Do you belong to any clubs o r organizations such as hindu groups, unions, fraternal or athletic groups, or school groups? No 01/31/2024 How often do you attend meet ings of the clubs or organizations you belong to? Never 01/31/2024 Are you , , di vorced, , never , or living with a partner? Never 01/31/2024 AUDIT-C Answer Date Recorded Q1: How often do you have a drink containing alcohol? Never 03/08/2024 Q2: How many drinks containi ng alcohol do you have on a typical day when you are drinking? Patient does not drink Q3: How often do you have si x or more drinks on one occasion? Never 03/08/2024 Overall Financial Resource Strain (CARDIA) Answe r Date Recorded How hard is it for you to pa y for the very basics like food, housing, medical care, and heating? Not very hard 01/31/2024 Hunger Vital Sign Answer Date Recorded Within the past 12 months, y ou worried that your food would run out before you got the money to buy more. Never true 01/31/20 24 Within the past 12 months, t he food you bought just didn't last and you didn't have money to get more. Never true 01/31/2024 PRAPARE - Transportation Answer Date Re corded In the past 12 months, has l ack of transportation kept you from medical appointments or from getting medications? No 01/20 In the past 12 months, has l ack of transportation kept you from meetings, work, or from getting things needed for daily living? No 01/31/2024 Housing Stability Vital Sign Answer Brock e Recorded In the last 12 months, was t here a time when you were not able to pay the mortgage or rent on time? No 01/31/2024 In the past 12 months, how m any times have you moved where you were living? 0 01/31/2024 At any time in the past 12 m [facility], were you homeless or living in a mcc (including now)? No 01/31/2024 Personal Safety Answer Date Recorded Have you ever been in or are you currently in a harmful physical or emotional relationship or is someone making you feel afraid or unsafe? Denies 03/08/2024 Comments No Sex and Gender Information Value Date Recorded Sex Assigned at Not on file Legal Sex Female 1:25 AM PLANNING ANALYST Gender Identity Not on file Sexual Orientation Not on file Obstetrics History Last Filed Vital Signs Vital Sign Reading Time Taken Comments Blood Pressure 101/76 03/08/2024 2:20 PM PLANNING ANALYST Pulse 76 03/08/2024 2:50 PM PLANNING ANALYST Temperature 36.2 ??C (97.2 ??F) 03/08/2024 1:40 PM CS T Respiratory Rate 16 03/08/2024 2:50 PM PLANNING ANALYST Oxygen Saturation 92% 03/08/2024 2:50 PM PLANNING ANALYST Inhaled Oxygen Concentration - - Weight 73.5 kg (162 lb 0.6 oz) 03/14/2024 7:47 A M PLANNING ANALYST Height 157.5 cm (5' 2 ) 03/08/2024 10:00 AM PLANNING ANALYST Body Mass Index 29.64 03/08/2024 10:00 AM PLANNING ANALYST Plan of Treatment Health Maintenance Due Date Last Done Comments Albumin Creatinine Ratio, Urine 1954 Colon Cancer Screening-Colonoscopy 1954 Depression Screening 1954 Hemoglobin A1C 1954 Dilated Eye Exam 1954 Foot Exam 1954 Hepatitis B Screening 1972 Osteoporosis Screening-Bone Density Scan 01/25/2018 01/26/2016, 01/26/2016 Well Visit 65+ 07/25/2019 Breast Cancer Screening-Mammogram 10/13/2022 022 Lipid Panel 10/05/2024 10/06/2023 Fall Risk Assessment 03/08/2025 03/08/2024 eGFR 03/08/2025 03/08/2024, 01/20, 01/30/2024, Additional history exists DTaP/Tdap/Td Vaccine (4 - Td or Tdap) 11/12/2033 11/13/2023, 09/28/2022, 12/11/2018 Zoster Vaccine Completed 01/07/2020, 12/11/2018 Pneumococcal vaccine 65+ Completed 022, 09/16/2019, 09/16/2019, Additional history exists Influenza Vaccine Completed 11/22/2023, , 11/21/2022, Additional history exists Covid-19 Vaccine Completed 12/22/2023, , 01/08/2021, Additional history exists Hepatitis C Screening Completed 01/31/2024 Medical Devices Implanted Type Area Beam Dyer Device Identifier Shelf Expiration Date Model / Serial / Lot Bard Peripheral Vascular [employer]get Cardiovascular Nominal Thickness Polytetrafluoroethylene 1.65mmx1/4x1/4in [id number] - [id number] Implanted:Qty: 1 on 01/30/2024 by Adalberto Linder MD at [facility] Left: Forearm [employer] Peripheral V[employer] [id number] 11/17/2025 [id number] / / [id number] [facility] [employer] Embosafe 15.5fr 24cm Basic 2 Lumen Kit Catheter [id number] - [id number] Implanted:Qty: 1 on 01/31/2024 at [facility] Sovex 10/20/2025 [id number] / / [id number] Procedures Procedure Name Priority Date/Time Associated Diagnosis Comments REVISION ARTERIOVENOUS FISTULA - ARM 03/08/2024 12:21 PM PLANNING ANALYST End stage renal disease (CMS/HCC) (HCC) EGFR Routine 03/08/2024 10:14 AM PLANNING ANALYST BASIC METABOLIC PANEL Routine 03/08/2024 10:14 AM PLANNING ANALYST US HEMODIALYSIS ACCESS Schedule Routine, Read Routine (OP Routine) 02/12/2024 2:27 PM PLANNING ANALYST Arteriovenous fistula, acquired (CMS/HCC) (HCC) Pain due to vascular prosthetic devices, implants and grafts, initial encounter (HCC) HEPATITIS PANEL, ACUTE STAT 01/31/2024 10:35 AM PLANNING ANALYST HEMODIALYSIS Routine 01/31/2024 9:35 AM PLANNING ANALYST TUNNELED LINE PLACEMENT > 5 YEARS IP Routine 01/31/2024 8:29 AM PLANNING ANALYST EGFR Routine 01/31/2024 5:33 AM PLANNING ANALYST RENAL FUNCTION PANEL Routine 01/31/2024 5:33 AM PLANNING ANALYST CBC WITHOUT DIFFERENTIAL Routine 01/31/2024 5:33 AM PLANNING ANALYST EGFR STAT 01/30/2024 8:09 PM PLANNING ANALYST DIFFERENTIAL AUTO STAT 01/30/2024 8:0 9 PM PLANNING ANALYST PROTIME-INR STAT 01/30/2024 8:09 PM PLANNING ANALYST PHOSPHORUS STAT 01/30/2024 8:09 PM PLANNING ANALYST COMPREHENSIVE METABOLIC PANEL STAT 01/30/2024 8:09 PM PLANNING ANALYST CBC WITH AUTO DIFFERENTIAL STAT 01/30/2024 8:09 PM PLANNING ANALYST SURGICAL PATHOLOGY Routine 01/30/2024 5: 00 PM PLANNING ANALYST End stage renal disease (CMS/HCC) (HCC) 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, initial encounter (HCC) [place] AN PROCEDURE PLACEHOLDER Routine 01/30/2024 2:06 PM PLANNING ANALYST LIGATION ARTERIO VENOUS FISTULA 01/30/2024 2:04 PM PLANNING ANALYST End stage renal disease (CMS/HCC) (HCC) 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, initial encounter (HCC) CONSTRUCTION ARTERIOVENOUS FISTULA 01/30/2024 2:04 PM PLANNING ANALYST End stage renal disease (CMS/HCC) (HCC) 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, initial encounter (HCC) POTASSIUM LEVEL STAT 01/30/2024 12:50 PM PLANNING ANALYST EGFR STAT 01/30/2024 11:51 AM PLANNING ANALYST BASIC METABOLIC PANEL STAT 01/30/2024 11:51 AM PLANNING ANALYST US VEIN MAPPING FISTULA ACCESS, BILATERAL Schedule Routine, Read Routine (OP Routine) 01/25/2024 1:50 PM PLANNING ANALYST End stage renal disease (CMS/HCC) (HCC) from Last 3 Months Results * (ABNORMAL) eGFR (03/08/2024 10:14 AM PLANNING ANALYST) eGFR 11(L) >=60 mL/min/1. 73 m2 Comment: Interpretive Data Reference Interval Normal ?>/= 90 mL/min/1.73m2 Mildly decreased* ? 60 - 89 mL/min/1.73m2 Mildly to moderately decreased ?45 - 59 mL/min/1.73m2 Moderately to severely decreased ??30 - 44 mL/min/1.73m2 Severely decreased ?15 - 29 mL/min/1.73m2 Kidney Failure ?< 15 ??mL/min/1.73m2 *Relative to young adult level Estimated glomerular filtration rate is determined by the 2020 CKD-EPI equation recommended by the National Kidney Foundation (A Unifying Approach to GFR Estimation: Recommendations of the NKF-ASK Task Force on Reassessing the Inclusion of Race in Diagnosing Kidney Disease, JASN 2020). The CKD-EPI equation should not be used for patients with unstable renal function and has not been validated in children and those over 70. Current interpretive data was last reviewed 2020. Blood 03/08/2024 10:1 4 AM PLANNING ANALYST 03/08/2024 10:15 AM PLANNING ANALYST us Adalberto Linder MD LAB BLOOD ORDERABLES Final Result [facility] [address] Department [place] [address] * (ABNORMAL) Basic metabolic panel (03/08/2024 10:14 AM PLANNING ANALYST) Sodium 137 135 - 145 mmol/L Potassium, pl 3.6 3.3 - 4.9 mmol/L [facility] Chloride 98 97 - 110 mmol/L [facility] CO2 23 22 - 32 mmol/L [facility] Anion gap 16(H) 2 - 15 mmol/L [facility] BUN 17 6 - 25 mg/dL [facility] Creatinine 4.19(H) 0.60 - 1.10 mg/dL [facility] Glucose 91 70 - 199 mg/dL [facility] Comment: Interpretive Data Fasting glucose >/= 126 mg/dl is diagnostic for diabetes. ?? Fasting is defined as no caloric intake for at least 8 hours. Fasting glucose between 100 mg/dl to 125 mg/dl is diagnostic of prediabetes. In a patient with classic symptoms of hyperglycemia or hyperglycemic crisis, a random glucose >/= 200 mg/dl is diagnostic for diabetes. In the absence of unequivocal hyperglycemia, results should be confirmed by repeat testing. The classification and Diagnosis of Diabetes Diabetes Care 2021; 46: S19-S40. Current interpretive data was last revised 2022. Calcium 9.7 8.5 - 10.3 mg/dL [facility] Blood 03/08/2024 10:1 4 AM PLANNING ANALYST 03/08/2024 10:15 AM PLANNING ANALYST us Adalberto Linedr MD LAB BLOOD ORDERABLES Final Result [facility] [address] Department [place] [address] * US Hemodialysis Access (02/12/2024 2:27 PM PLANNING ANALYST) Anatomical Region Laterality Modality Vascular N/A Ultrasound 02/13/2024 2:35 PM PLANNING ANALYST Impressions 02/13/2024 2:35 PM PLANNING ANALYST No duplex evidence of obstruction in the AVF. ??Adequate flow for dialysis. Electronically signed by: Adalberto Linder MD Narrative 02/13/2024 2:35 PM PLANNING ANALYST AVF DATE: ??02/12/2024 1:15 PM EXAM: ??Duplex Imaging Study of an Arteriovenous Fistula of the Left Upper Extremity INDICATION: ??Post operative evaluation of left brachial basilic fistula COMPARISON: ??None Available FINDINGS: ?? Filling Defect: ??No filling defects are identified in the AVF. Proximal Fistula: ? Depth 0.85cm ?Diameter 0.45cm ?Volume of Flow ??912mL/min Mid Fistula: ? Depth 0.46cm ?Diameter ??0.51cm ?Volume of Flow ??1294mL/min Distal Fistula: ?Depth ??0.62cm ?Diameter ??0.64cm ?Volume of Flow ??2450mL/min INCIDENTAL FINDINGS: None Procedure Note Adalberto Linder MD - 02/13/2024 AVF DATE: 02/12/2024 1:15 PM EXAM: Duplex Imaging Study of an Arteriovenous Fistula of the Left Upper Extremity INDICATION: Post operative evaluation of left brachial basilic fistula COMPARISON: None Available FINDINGS: Filling Defect: No filling defects are identified in the AVF. Proximal Fistula: Depth 0.85cm Diameter 0.45cm Volume of Flow 912mL/min Mid Fistula: Depth 0.46cm Diameter 0.51cm Volume of Flow 1294mL/min Distal Fistula: Depth 0.62cm Diameter 0.64cm Volume of Flow 2450mL/min INCIDENTAL FINDINGS: None IMPRESSION: No duplex evidence of obstruction in the AVF. Adequate flow for dialysis. Electronically signed by: Adalberto Linder MD us Adalberto Linder MD IM US PROCEDURES Final Res ult * Hepatitis panel, acute Blood (01/31/2024 10:35 AM PLANNING ANALYST) Hep A IgM Nonreactive Nonreactive Comment: Interpretive Data: If Hep A IgM Ab is reported as Equivocal, a new sample should be drawn in two weeks for testing. Current interpretive data was last revised on 19. Hep B core IgM Nonreactive Nonreactive [facility] Comment: Interpretive Data If HepB Core IgM Ab is reported as Equivocal, a new sample should be drawn in two weeks for testing. Current interpretive data was last revised on 19. Hep C Ab Nonreactive Nonreactive [facility] Comment: Interpretive Data Nonreactive: Antibodies to HCV not detected. Does NOT exclude the possibility of recent exposure to HCV. Equivocal: Equivocal for HCV antibodies. Supplemental molecular testing will be automatically performed to determine infection status in accordance with current CDC screening recommendations. ?? Reactive: Positive for HCV antibodies. ??This may represent current or past HCV infection. Supplemental molecular testing will be automatically performed to determine ??current infection status in accordance with current CDC screening recommendations. Interpretive data was last revised on 2019. HepBsAg Nonreactive Nonreactive [facility] Blood 01/31/2024 10:3 5 AM PLANNING ANALYST 01/31/2024 10:36 AM PLANNING ANALYST us Connie Greenberg MD LAB MICROBIOLOGY - GENE RAL ORDERABLES Final Result [facility] [address] [place] [address] * IR Tunneled Line Placement > 5 Years (01/31/2024 8:29 AM PLANNING ANALYST) Anatomical Region Laterality Modality Body N/A X-Ray Angiograph y 01/31/2024 4:05 PM PLANNING ANALYST Impressions 01/31/2024 4:05 PM PLANNING ANALYST Successful tunneled 24 cm Duraflow catheter (19 cm cuff to tip) placement via the right external jugular vein. PLAN: ??The catheter is ready for immediate use. ?? When treatment is completed, removal can be scheduled by calling: [facility] - [phone] [facility] - [phone] [facility] - [phone] Electronically signed by: Amanda Rehman PA-C Narrative 01/31/2024 4:05 PM PLANNING ANALYST EXAMINATION: ??TUNNELED CENTRAL VENOUS CATHETER PLACEMENT USING ULTRASOUND GUIDANCE HISTORY/INDICATION: 68-year-old female with end-stage renal disease status post left upper extremity arteriovenous fistula revision yesterday presents for tunneled central venous catheter placement for temporary hemodialysis until the fistula may be used. PROVIDER PRESENCE: Amanda Rehman PA-C, was present from the beginning to the end of the procedure. SEDATION: Conscious sedation was administered to the patient. TECHNIQUE: ??The risks, benefits and alternatives were discussed and informed consent was obtained. ??Prior to beginning the procedure, Clayton Protocol was used to confirm the patient's identity and planned procedure. ??Fluoroscopy time has been recorded in the electronic medical record. Prior to the procedure, the right external jugular vein was evaluated by ultrasound, an image recorded and placed in the patient's chart. Maximum sterile barriers including cap, mask, hand hygiene, sterile gloves, sterile gown, large sterile drape and 2% chlorhexidine for cutaneous antisepsis were used. The patient's breast tissue and chest wall were taped down to provide a field that approximated the affect of gravity. The skin over the right external jugular vein was sterilely prepped, draped and infiltrated with 1% lidocaine. ??The vein was accessed with a 21 gauge needle using realtime ultrasound guidance. ??A guidewire and catheter were then passed centrally using fluoroscopic guidance. The intravascular length from the access site to the right atrium was then measured. ?? After infiltrating the skin in the subclavicular region with 1% lidocaine, a short transverse incision was made and the 24 cm Duraflow catheter (19 cm cuff to tip) was tunneled to the external jugular access site and inserted through a peel-away sheath. ??The dialysis catheter was flushed with 1000 U/ml heparin. The incision in the lower neck was closed using 4-0 Monocryl. ??A sterile dressing was applied. ESTIMATED BLOOD LOSS: Minimal. CONDITION: Stable. DISCHARGED TO: Recovery and then to inpatient unit. FINDINGS: ??Ultrasound image shows a patent vein in the lower neck. The final fluoroscopic image demonstrates the catheter with its tip at the cavoatrial junction . ??No complications are seen. Procedure Note Amanda Rehamn PA - 01/31/2024 EXAMINATION: TUNNELED CENTRAL VENOUS CATHETER PLACEMENT USING ULTRASOUND GUIDANCE HISTORY/INDICATION: 68-year-old female with end-stage renal disease status post left upper extremity arteriovenous fistula revision yesterday presents for tunneled central venous catheter placement for temporary hemodialysis until the fistula may be used. PROVIDER PRESENCE: Amanda Rehman PA-C, was present from the beginning to the end of the procedure. SEDATION: Conscious sedation was administered to the patient. TECHNIQUE: The risks, benefits and alternatives were discussed and informed consent was obtained. Prior to beginning the procedure, Clayton Protocol was used to confirm the patient's identity and planned procedure. Fluoroscopy time has been recorded in the electronic medical record. Prior to the procedure, the right external jugular vein was evaluated by ultrasound, an image recorded and placed in the patient's chart. Maximum sterile barriers including cap, mask, hand hygiene, sterile gloves, sterile gown, large sterile drape and 2% chlorhexidine for cutaneous antisepsis were used. The patient's breast tissue and chest wall were taped down to provide a field that approximated the affect of gravity. The skin over the right external jugular vein was sterilely prepped, draped and infiltrated with 1% lidocaine. The vein was accessed with a 21 gauge needle using realtime ultrasound guidance. A guidewire and catheter were then passed centrally using fluoroscopic guidance. The intravascular length from the access site to the right atrium was then measured. After infiltrating the skin in the subclavicular region with 1% lidocaine, a short transverse incision was made and the 24 cm Duraflow catheter (19 cm cuff to tip) was tunneled to the external jugular access site and inserted through a peel-away sheath. The dialysis catheter was flushed with 1000 U/ml heparin. The incision in the lower neck was closed using 4-0 Monocryl. A sterile dressing was applied. ESTIMATED BLOOD LOSS: Minimal. CONDITION: Stable. DISCHARGED TO: Recovery and then to inpatient unit. FINDINGS: Ultrasound image shows a patent vein in the lower neck. The final fluoroscopic image demonstrates the catheter with its tip at the cavoatrial junction . No complications are seen. IMPRESSION: Successful tunneled 24 cm Duraflow catheter (19 cm cuff to tip) placement via the right external jugular vein. PLAN: The catheter is ready for immediate use. When treatment is completed, removal can be scheduled by calling: [facility] - [phone] [facility] - [phone] [facility] - [phone] Electronically signed by: Amanda Rehman PA-C us Connie Greenberg MD IMG IR PROCEDURES Final Result * (ABNORMAL) eGFR (01/31/2024 5:33 AM PLANNING ANALYST) eGFR 4(L) >=60 mL/min/1. 73 m2 Comment: Interpretive Data Reference Interval Normal ?>/= 90 mL/min/1.73m2 Mildly decreased* ? 60 - 89 mL/min/1.73m2 Mildly to moderately decreased ?45 - 59 mL/min/1.73m2 Moderately to severely decreased ??30 - 44 mL/min/1.73m2 Severely decreased ?15 - 29 mL/min/1.73m2 Kidney Failure ?< 15 ??mL/min/1.73m2 *Relative to young adult level Estimated glomerular filtration rate is determined by the 2020 CKD-EPI equation recommended by the National Kidney Foundation (A Unifying Approach to GFR Estimation: Recommendations of the NKF-ASK Task Force on Reassessing the Inclusion of Race in Diagnosing Kidney Disease, JASN 2020). The CKD-EPI equation should not be used for patients with unstable renal function and has not been validated in children and those over 70. Current interpretive data was last reviewed 2020. Blood 01/31/2024 5:33 AM PLANNING ANALYST 01/31/2024 7:05 AM PLANNING ANALYST us Adalberto Linder MD LAB BLOOD ORDERABLES Final Result [facility] [address] Department of Laboratories [place], [place] [id number] * (ABNORMAL) CBC without differential (01/31/2024 5:33 AM PLANNING ANALYST) Pathologist [facility] WBC 10.2(H) 3.8 - 9.9 K/cumm Hgb 9.5(L) 11.9 - 15.5 g/dL [facility] Hct 30.4(L) 35.6 - 45.5 % [facility] Plt 264 150 - 400 K/cumm [facility] MPV 10.1 9.1 - 12.3 fL [facility] RBC 3.33(L) 3.90 - 5.20 M/cumm [facility] MCV 91.3 81.3 - 96.4 fL [facility] MCH 28.5 27.1 - 33.3 pg [facility] MCHC 31.3(L) 32.3 - 35.7 g/dL [facility] RDW CV 14.8 11.1 - 14.9 % [facility] RDW SD 49.1(H) 35.7 - 48.1 fL [facility] NRBC abs 0.00 0.00 - 0.01 K/cumm [facility] Blood 01/31/2024 5:33 AM PLANNING ANALYST 01/31/2024 7:06 AM PLANNING ANALYST us Adalberto Linder MD LAB BLOOD ORDERABLES Final Result [facility] [address] Department of Laboratories [place], [place] [id number] * (ABNORMAL) Renal function panel (01/31/2024 5:33 AM PLANNING ANALYST) [facility] Sodium 142 135 - 145 mmol/L Potassium, pl 5.0(H) 3.3 - 4.9 mmol/L [facility] Chloride 99 97 - 110 mmol/L [facility] CO2 22 22 - 32 mmol/L [facility] Anion gap 21(H) 2 - 15 mmol/L [facility] BUN 73(H) 6 - 25 mg/dL [facility] Creatinine 9.88(H) 0.60 - 1.10 mg/dL [facility] Glucose 68(L) 70 - 199 mg/dL [facility] Comment: Interpretive Data Fasting glucose >/= 126 mg/dl is diagnostic for diabetes. ?? Fasting is defined as no caloric intake for at least 8 hours. Fasting glucose between 100 mg/dl to 125 mg/dl is diagnostic of prediabetes. In a patient with classic symptoms of hyperglycemia or hyperglycemic crisis, a random glucose >/= 200 mg/dl is diagnostic for diabetes. In the absence of unequivocal hyperglycemia, results should be confirmed by repeat testing. The classification and Diagnosis of Diabetes Diabetes Care 202; 46: S19-S40. Current interpretive data was last revised 2022. Calcium 9.2 8.5 - 10.3 mg/dL [facility] Phosphorus, pl 7.3(H) 2.3 - 4.5 mg/dL [facility] Albumin 3.8 3.5 - 5.0 g/dL [facility] Blood 01/31/2024 5:33 AM PLANNING ANALYST 01/31/2024 7:05 AM PLANNING ANALYST us Adalberto Linder MD LAB BLOOD ORDERABLES Final Result [facility] [address] Department [place] [address] * (ABNORMAL) eGFR (01/30/2024 8:09 PM PLANNING ANALYST) eGFR 4(L) >=60 mL/min/1. 73 m2 Comment: Interpretive Data Reference Interval Normal ?>/= 90 mL/min/1.73m2 Mildly decreased* ? 60 - 89 mL/min/1.73m2 Mildly to moderately decreased ?45 - 59 mL/min/1.73m2 Moderately to severely decreased ??30 - 44 mL/min/1.73m2 Severely decreased ?15 - 29 mL/min/1.73m2 Kidney Failure ?< 15 ??mL/min/1.73m2 *Relative to young adult level Estimated glomerular filtration rate is determined by the 2020 CKD-EPI equation recommended by the National Kidney Foundation (A Unifying Approach to GFR Estimation: Recommendations of the NKF-ASK Task Force on Reassessing the Inclusion of Race in Diagnosing Kidney Disease, JASN 2020). The CKD-EPI equation should not be used for patients with unstable renal function and has not been validated in children and those over 70. Current interpretive data was last reviewed 2020. Blood 01/30/2024 8:09 PM PLANNING ANALYST 01/30/2024 8:27 PM PLANNING ANALYST us Connie Greenberg MD LAB BLOOD ORDERABLES Fi nal Result [facility] [address] [place] [address] * (ABNORMAL) Differential, auto (01/30/2024 8:09 PM PLANNING ANALYST) Neutrophil abs 6.1 1.5 - 6.5 K/cumm Imm gran abs 0.2(H) 0.0 - 0.1 K/cumm [facility] Lymphocyte abs 2.7 0.8 - 3.3 K/cumm [facility] Monocyte abs 0.8 0.2 - 0.8 K/cumm [facility] Eosinophil abs 0.0 0.0 - 0.5 K/cumm [facility] Basophil abs 0.0 0.0 - 0.1 K/cumm [facility] Neutrophil pct 62.3 % [facility] Comment: Interpretive Data Percent cell count reference ranges are not reported, since discordance with absolute values may lead to misinterpretation of CBC data. Current Interpretive Data was last revised on 2017. Imm gran pct 2.0 % [facility] Comment: Interpretive Data Percent cell count reference ranges are not reported, since discordance with absolute values may lead to misinterpretation of CBC data. Current Interpretive Data was last revised on 2017. Lymphocyte pct 27.4 % [facility] Comment: Interpretive Data Percent cell count reference ranges are not reported, since discordance with absolute values may lead to misinterpretation of CBC data. Current Interpretive Data was last revised on 2017. Monocyte pct 7.8 % [facility] Comment: Interpretive Data Percent cell count reference ranges are not reported, since discordance with absolute values may lead to misinterpretation of CBC data. Current Interpretive Data was last revised on 2017. Eosinophil pct 0.1 % [facility] Comment: Interpretive Data Percent cell count reference ranges are not reported, since discordance with absolute values may lead to misinterpretation of CBC data. Current Interpretive Data was last revised on 2017. Basophil pct 0.4 % [facility] Comment: Interpretive Data Percent cell count reference ranges are not reported, since discordance with absolute values may lead to misinterpretation of CBC data. Current Interpretive Data was last revised on 2017. Blood 01/30/2024 8:09 PM PLANNING ANALYST 01/30/2024 8:27 PM PLANNING ANALYST us Connie Greenberg MD LAB BLOOD ORDERABLES Fi nal Result [facility] [address] [place] [address] * (ABNORMAL) CBC with auto differential (01/30/2024 8:09 PM PLANNING ANALYST) WBC 9.8 3.8 - 9.9 K/cumm Hgb 10.2(L) 11.9 - 15.5 g/dL [facility] Hct 32.9(L) 35.6 - 45.5 % [facility] Plt 254 150 - 400 K/cumm [facility] MPV 9.7 9.1 - 12.3 fL [facility] RBC 3.59(L) 3.90 - 5.20 M/cumm [facility] MCV 91.6 81.3 - 96.4 fL [facility] MCH 28.4 27.1 - 33.3 pg [facility] MCHC 31.0(L) 32.3 - 35.7 g/dL [facility] RDW CV 14.6 11.1 - 14.9 % [facility] RDW SD 48.5(H) 35.7 - 48.1 fL [facility] NRBC abs 0.00 0.00 - 0.01 K/cumm [facility] Blood 01/30/2024 8:09 PM PLANNING ANALYST 01/30/2024 8:27 PM PLANNING ANALYST us Connie Greenberg MD LAB BLOOD ORDERABLES Fi nal Result Performing Organization Address [facility] de Phone Number [facility] [address] [email or web address] [address] * Protime-INR (01/30/2024 8:09 PM PLANNING ANALYST) PT 11.6 9.7 - 13.0 sec INR 1.07 0.90 - 1.20 [facility] Comment: Interpretive data Oral anticoagulant therapeutic ranges: Venous thromboembolism prophylaxis or treatment: 2.0-3.0 CARDIOLOGY Standard range: 2.0-3.0 High-intensity range: 2.5-3.5 Refer to indication-specific guidelines for appropriate target ranges for prosthetic heart valve replacement. Current interpretive data was last revised on 2019. Blood 01/30/2024 8:09 PM PLANNING ANALYST 01/30/2024 8:27 PM PLANNING ANALYST us Connie Greenberg MD LAB BLOOD ORDERABLES Fi nal Result Performing Organization Address [facility] de Phone Number [facility] [address] [email or web address] [address] * (ABNORMAL) Phosphorus (01/30/2024 8:09 PM PLANNING ANALYST) Phosphorus, pl 6.8(H) 2.3 - 4.5 mg/dL Blood 01/30/2024 8:09 PM PLANNING ANALYST 01/30/2024 8:27 PM PLANNING ANALYST Connie Greenberg MD LAB BLOOD ORDERABLES Fi nal Result Performing Organization Address [facility] Co de Phone Number [facility] [address] [place] [address] * (ABNORMAL) Comprehensive metabolic panel (01/30/2024 8:09 PM PLANNING ANALYST) Sodium 140 135 - 145 mmol/L Potassium, pl 4.8 3.3 - 4.9 mmol/L [facility] Chloride 101 97 - 110 mmol/L [facility] CO2 21(L) 22 - 32 mmol/L [facility] Anion gap 18(H) 2 - 15 mmol/L [facility] BUN 65(H) 6 - 25 mg/dL [facility] Creatinine 9.06(H) 0.60 - 1.10 mg/dL [facility] Glucose 90 70 - 199 mg/dL [facility] Comment: Interpretive Data Fasting glucose >/= 126 mg/dl is diagnostic for diabetes. ?? Fasting is defined as no caloric intake for at least 8 hours. Fasting glucose between 100 mg/dl to 125 mg/dl is diagnostic of prediabetes. In a patient with classic symptoms of hyperglycemia or hyperglycemic crisis, a random glucose >/= 200 mg/dl is diagnostic for diabetes. In the absence of unequivocal hyperglycemia, results should be confirmed by repeat testing. The classification and Diagnosis of Diabetes Diabetes Care 202; 46: S19-S40. Current interpretive data was last revised 2022. Calcium 9.5 8.5 - 10.3 mg/dL [facility] Bilirubin, total 0.3 0.1 - 1.2 mg/dL [facility] Protein, pl 7.2 6.5 - 8.5 g/dL [facility] Albumin 3.8 3.5 - 5.0 g/dL [facility] Alk phos 79 40 - 130 Units/L [facility] ALT 9 7 - 45 Units/L [facility] AST 14 10 - 45 Units/L [facility] Blood 01/30/2024 8:09 PM PLANNING ANALYST 01/30/2024 8:27 PM PLANNING ANALYST us Connie Greenberg MD LAB BLOOD ORDERABLES Fi nal Result [facility] [address] [place] [address] * Surgical pathology (01/30/2024 5:00 PM PLANNING ANALYST) Tissue (Artery) 01/30/2024 5 :00 PM PLANNING ANALYST Comment:Placed in formalin a t the end of case Narrative PATHOLOGY [facility] - 02/01/2024 10:58 AM PLANNING ANALYST [place] [address] [place], [place] ??[address] Tele: ?? Dasha Dempsey MD - Laryngologist Note to Patients: This report may contain a detailed description of human tissue sent by a health care provider to the laboratory for pathologic evaluation. The content of this report is essential for diagnosis and may provide important critical findings. This information may be unfamiliar to patients to review without a medical professional present. It is advised that the patient review this report in the presence of a health care provider who can answer questions and explain the details. SURGICAL PATHOLOGY REPORT Patient Name: ??MOY TOBIN Address: ??[address] [place] [address]61 Gender: ??F : ??1955 (Age: 68) Service: ??Surgery Location: ??[id number], ?? Hospital #: ??[id number] Patient Type: ??[facility] OP IN BED Accession #: ? [id number] Taken: ? 01/30/2024 Received ? 01/31/2024 Reported: ? 02/01/2024 Physician(s): ? Adalberto Linder M.D. Federico Branham Jr., M.D. 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 - Dilated vascular structure with degenerative change and calcification, consistent with aneurysm 02/01/2024 10:58 Examining Pathologist: Matthew Chung M.D. Report Reviewed and Electronically Signed By ??Matthew Chung M.D. 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 Steal Syndrome complication dialysis access GROSS DESCRIPTION: Received in formalin labeled with MOY TOBIN and left brachial artery aneurysm is a 2.3 x 1.5 x 0.3 cm red-brown irregular tissue fragment. ??Specimen is sectioned The specimen is entirely submitted in cassette labeled A1. ?? JAP,CUH MICROSCOPIC DESCRIPTION: Microscopic examination supports the above captioned diagnosis. Clerical Data Follows A; [id number] REPORT IMAGES AND/OR SCANNED DOCUMENTS ONLY VIEWABLE IN PDF FORMAT The immunohistochemical test(s) cited in this report, if any, was developed and its performance characteristics determined by [facility] Pathology Department. ??It has not been cleared or approved by the U.S. Food and Drug Administration. ??The FDA has determined that such clearance or approval is not necessary. ??This test is used for clinical purposes. ??It should not be regarded as investigational or for research. ??[facility] Laboratory is certified under the Clinical Laboratory Improvement Amendments of 1988 (CLIA) as qualified to perform high complexity testing. ??Immunostains were performed on formalin-fixed paraffin embedded tissue using a polymer diaminobenzidine chromogen detection system. Antibodies used may include clone SP1 (rabbit monoclonal, estrogen receptor), clone [id number] (rabbit monoclonal progesterone receptor), Ki-67 (rabbit monoclonal, 30-9), CD117 (rabbit polyclonal, c-kit), and anti-Her-2/francisco (4B5) (rabbit monoclonal primary antibody). ??In the event that immunohistochemistry or special stains have been performed, attending physician has confirmed appropriateness of controls. ??Frozen section, operating room consultation, gross examination and dissection, and case sign out may have been performed in part or completely in the following laboratories: [facility], [facility], [place], [place] [address] [place] [address], [address] [place] [id number]. Adalberto Linder MD LAB PATHOLOGY ORDERABLES Fi nal Result PATHOLOGY [facility] Laboratory Receiving [address] [place], [place] [id number] * [place] AN PROCEDURE PLACEHOLDER (01/30/2024 2:06 PM PLANNING ANALYST) Narrative Librado Rodriges DO - 01/30/2024 2:06 PM PLANNING ANALYST Librado Rodriges DO ? 01/30/2024 ??2:06 PM Peripheral Block Patient location during procedure: pre-op holding Reason for block: post-op pain management per surgeon request Ultrasound image in chart or stored: yes Block type: single shot Laterality: left Block type: brachial - supraclavicular Staff: Placed by: Anesthesiologist: Librado Rodriges DO Procedure prep: Preprocedure checklist: patient identified, procedure contraindications assessed, site marked, procedure consent, surgical consent, IV checked, risks, benefits and alternatives discussed, monitors and equipment checked and timeout performed Patient position: head of bed elevated and supine Procedure performed while patient: sedate with meaningful contact Monitoring: oximetry, blood pressure and ECG Supplemental O2: nasal cannula Prep solution: chlorhexidine/alcohol PPE: provider hat/mask and sterile gloves Skin infiltrated with lidocaine 1%: yes Peripheral nerve block: Technique: ultrasound guided (ultrasound used for needle guidance and for visualization of local anesthetic placement) Needle type: echogenic Needle gauge: 22 G Needle length: 50 mm Injection assessment: injection made incrementally with constant monitoring, local visualized surrounding nerve on ultrasound, negative aspiration for heme, no paresthesias noted, normal resistance to injection and see flowsheet for medication details (sedation medications documented in anesthetic record) Assessment: Block success: full evaluation pending Events: patient tolerated procedure well with no complications Librado Rodriges DO ANESTHESIA ORDERABLES Final Result * Potassium (01/30/2024 12:50 PM PLANNING ANALYST) Potassium, pl 4.7 3.3 - 4.9 mmol/L Blood 01/30/2024 12:5 0 PM PLANNING ANALYST 01/30/2024 12:54 PM PLANNING ANALYST Librado Rodriges DO LAB BLOOD ORDERABLES Final Result [facility] [address] [email or web address] [place] [address] * (ABNORMAL) eGFR (01/30/2024 11:51 AM PLANNING ANALYST) eGFR 5(L) >=60 mL/min/1. 73 m2 Comment: Interpretive Data Reference Interval Normal ?>/= 90 mL/min/1.73m2 Mildly decreased* ? 60 - 89 mL/min/1.73m2 Mildly to moderately decreased ?45 - 59 mL/min/1.73m2 Moderately to severely decreased ??30 - 44 mL/min/1.73m2 Severely decreased ?15 - 29 mL/min/1.73m2 Kidney Failure ?< 15 ??mL/min/1.73m2 *Relative to young adult level Estimated glomerular filtration rate is determined by the 2020 CKD-EPI equation recommended by the National Kidney Foundation (A Unifying Approach to GFR Estimation: Recommendations of the NKF-ASK Task Force on Reassessing the Inclusion of Race in Diagnosing Kidney Disease, JASN 2020). The CKD-EPI equation should not be used for patients with unstable renal function and has not been validated in children and those over 70. Current interpretive data was last reviewed 2020. Blood 01/30/2024 11:5 1 AM PLANNING ANALYST 01/30/2024 11:51 AM PLANNING ANALYST us Adalberto Linder MD LAB BLOOD ORDERABLES Final Result [facility] [address] [place] [address] * (ABNORMAL) Basic metabolic panel (01/30/2024 11:51 AM PLANNING ANALYST) Sodium 139 135 - 145 mmol/L Potassium, pl 7.1(C) 3.3 - 4.9 mmol/L [facility] Comment: Hemolyzed; potassium value may be falsely elevated by as much as 0.6 - 1.0 mmol/L. Suggest redraw and reanalysis Critical result called to and read back by jacy fleming on 01/30/2024 ??12:29 to [id number] Chloride 97 97 - 110 mmol/L [facility] CO2 22 22 - 32 mmol/L [facility] Anion gap 20(H) 2 - 15 mmol/L [facility] BUN 60(H) 6 - 25 mg/dL [facility] Creatinine 8.31(H) 0.60 - 1.10 mg/dL [facility] Glucose 87 70 - 199 mg/dL [facility] Comment: Interpretive Data Fasting glucose >/= 126 mg/dl is diagnostic for diabetes. ?? Fasting is defined as no caloric intake for at least 8 hours. Fasting glucose between 100 mg/dl to 125 mg/dl is diagnostic of prediabetes. In a patient with classic symptoms of hyperglycemia or hyperglycemic crisis, a random glucose >/= 200 mg/dl is diagnostic for diabetes. In the absence of unequivocal hyperglycemia, results should be confirmed by repeat testing. The classification and Diagnosis of Diabetes Diabetes Care 202; 46: S19-S40. Current interpretive data was last revised 2022. Calcium 9.7 8.5 - 10.3 mg/dL [facility] Blood 01/30/2024 11:5 1 AM PLANNING ANALYST 01/30/2024 11:51 AM PLANNING ANALYST us Adalberto Linder MD LAB BLOOD ORDERABLES Final Result [facility] [address] [place] [address] * [place] Vein Mapping Fistula Access, Bilateral (01/25/2024 1:50 PM PLANNING ANALYST) Anatomical Region Laterality Modality Vascular Bilateral Ultrasound 01/25/2024 4:36 PM PLANNING ANALYST Impressions 01/25/2024 4:36 PM PLANNING ANALYST Patent basilic and cephalic veins with the aforementioned measurements. Electronically signed by: Patti Blanchard MD Narrative 01/25/2024 4:36 PM PLANNING ANALYST Vein Mapping UE DATE: 01/25/2024 12:30 PM EXAM: Upper Extremity Vein Mapping INDICATION: ??Preoperative planning. COMPARISON: ??None Available FINDINGS: RIGHT CEPHALIC VEIN: Upper arm: Not seen Mid arm: 0.8mm Antecubital fossa: 1.6mm Upper forearm: 1.5mm Wrist: 1.4mm RIGHT BASILIC VEIN: Proximal: 3.6mm Mid arm: 3.1mm Antecubital fossa: 2.6mm LEFT CEPHALIC VEIN: Upper arm: 4.7mm Mid arm: 5.3mm Antecubital fossa: 4.8mm Upper forearm: AV fistula Wrist: AVF LEFT BASILIC VEIN: Proximal: 9.5mm Mid arm: 9.7mm Antecubital fossa: 9.6mm INCIDENTAL FINDINGS: None Procedure Note Patti Blanchard MD - 01/25/2024 Vein Mapping UE DATE: 01/25/2024 12:30 PM EXAM: Upper Extremity Vein Mapping INDICATION: Preoperative planning. COMPARISON: None Available FINDINGS: RIGHT CEPHALIC VEIN: Upper arm: Not seen Mid arm: 0.8mm Antecubital fossa: 1.6mm Upper forearm: 1.5mm Wrist: 1.4mm RIGHT BASILIC VEIN: Proximal: 3.6mm Mid arm: 3.1mm Antecubital fossa: 2.6mm LEFT CEPHALIC VEIN: Upper arm: 4.7mm Mid arm: 5.3mm Antecubital fossa: 4.8mm Upper forearm: AV fistula Wrist: AVF LEFT BASILIC VEIN: Proximal: 9.5mm Mid arm: 9.7mm Antecubital fossa: 9.6mm INCIDENTAL FINDINGS: None IMPRESSION: Patent basilic and cephalic veins with the aforementioned measurements. Electronically signed by: Patti Blanchard MD us Adalberto Linder MD [facility] PROCEDURES Final Res ult from Last 3 Months Insurance [employer] MEDICARE SUPPLEMENT MEDICARE [employer] [place] [id number] MEDICARE [facility] MEDICARE SUPPLEMENT [address] [phone] MEDICARE [facility] MEDICARE SUPPLEMENT Advance Directives For more information, please contact: [phone] * Full Code (Latest Code Status on File) Date Activated Date Inactivated Comments 01/30/2024 8:33 PM 02/01/2024 11:09 PM Care Teams Touch Up Painter Hand Relationship Specialty Start Date End Date Federico Branham Jr., MD [address] [place] [address] PCP - General Family Medicine 01/30/24 Adalberto Linder MD [address] [facility] [address] [place] [address] Consulting Physician Surgery 01/31/24 Jc Moreau MD [address] [facility] [address] [place] [address] Referring Physician Nephrology 03/07/24 Carmen Chavez, RN [address] [address] Admissions Nurse 03/11/24
--- OUTSIDE RECORDS SUMMARY | 2024-03-25 09:09 | XMS_ITS ---
Author Organization [facility] [address] Address [address] [place] [address] Care Team Providers Care Hotel Associate Name Role Phone Carrol Pitts MD, Federico Howe Primary Care Provider Adalberto Linder MD Unavailable [phone] Jc Moreau MD Unavailable [phone] Carmen Chavez RN Unavailable [phone] Dialysis Access Sites Type Status Location Placement Date Removal Da te Hemodialysis Cath Double 01/31/24 Tunneled catheter Right Chest Active Right Breast 01/31/2024 AV fistula Active Left Forearm - Anterior 01/30/2024 Procedures Procedure Name Priority Date/Time Associated Diagnosis Comments REVISION ARTERIOVENOUS FISTULA - ARM 03/08/2024 12:21 PM AIRPORT CONTROL OPERATOR End stage renal disease (CMS/HCC) (HCC) EGFR Routine 03/08/2024 10:14 AM AIRPORT CONTROL OPERATOR BASIC METABOLIC PANEL Routine 03/08/2024 10:14 AM AIRPORT CONTROL OPERATOR US HEMODIALYSIS ACCESS Schedule Routine, Read Routine (OP Routine) 02/12/2024 2:27 PM AIRPORT CONTROL OPERATOR Arteriovenous fistula, acquired (CMS/HCC) (HCC) Pain due to vascular prosthetic devices, implants and grafts, initial encounter (HCC) HEPATITIS PANEL, ACUTE STAT 01/31/2024 10:35 AM AIRPORT CONTROL OPERATOR HEMODIALYSIS Routine 01/31/2024 9:35 AM AIRPORT CONTROL OPERATOR TUNNELED LINE PLACEMENT > 5 YEARS IP Routine 01/31/2024 8:29 AM AIRPORT CONTROL OPERATOR EGFR Routine 01/31/2024 5:33 AM AIRPORT CONTROL OPERATOR RENAL FUNCTION PANEL Routine 01/31/2024 5:33 AM AIRPORT CONTROL OPERATOR CBC WITHOUT DIFFERENTIAL Routine 01/31/2024 5:33 AM AIRPORT CONTROL OPERATOR EGFR STAT 01/30/2024 8:09 PM AIRPORT CONTROL OPERATOR DIFFERENTIAL AUTO STAT 01/30/2024 8:0 9 PM AIRPORT CONTROL OPERATOR PROTIME-INR STAT 01/30/2024 8:09 PM AIRPORT CONTROL OPERATOR PHOSPHORUS STAT 01/30/2024 8:09 PM AIRPORT CONTROL OPERATOR COMPREHENSIVE METABOLIC PANEL STAT 01/30/2024 8:09 PM AIRPORT CONTROL OPERATOR CBC WITH AUTO DIFFERENTIAL STAT 01/30/2024 8:09 PM AIRPORT CONTROL OPERATOR SURGICAL PATHOLOGY Routine 01/30/2024 5: 00 PM AIRPORT CONTROL OPERATOR End stage renal disease (CMS/HCC) (HCC) 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, initial encounter (HCC) ND AN PROCEDURE PLACEHOLDER Routine 01/30/2024 2:06 PM AIRPORT CONTROL OPERATOR LIGATION ARTERIO VENOUS FISTULA 01/30/2024 2:04 PM AIRPORT CONTROL OPERATOR End stage renal disease (CMS/HCC) (HCC) 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, initial encounter (HCC) CONSTRUCTION ARTERIOVENOUS FISTULA 01/30/2024 2:04 PM AIRPORT CONTROL OPERATOR End stage renal disease (CMS/HCC) (HCC) 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, initial encounter (HCC) POTASSIUM LEVEL STAT 01/30/2024 12:50 PM AIRPORT CONTROL OPERATOR EGFR STAT 01/30/2024 11:51 AM AIRPORT CONTROL OPERATOR BASIC METABOLIC PANEL STAT 01/30/2024 11:51 AM AIRPORT CONTROL OPERATOR US VEIN MAPPING FISTULA ACCESS, BILATERAL Schedule Routine, Read Routine (OP Routine) 01/25/2024 1:50 PM AIRPORT CONTROL OPERATOR End stage renal disease (CMS/HCC) (HCC) from Last 3 Months Allergies Active [...] fistula 0 03/08/2024 End stage renal disease ([facility]) 03/04/2024 S/P arteriovenous (AV) fistula creation 01/30/20 24 Steal syndrome as complication of dialysis acces s ([facility]) 01/25/2024 Hyperlipidemia 01/08/2024 Spinal stenosis of lumbar [...] pressor needs Moderate mitral regurgitation 11/10/2021 Paraparesis ([facility]/HCC) 11/10/2021 Chronic systolic heart failure ([facility]) 021 Overview (01/08/2024): 05/10/2021 Dr. 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 Carrol MORALES [...] Restrictive lung disease 08/15/2016 Typical atrial flutter ([facility]) 08/15/2016 Hyperparathyroidism, secondary renal 07/23/2015 Overview (01/08/2024): 05/10/2021 Dr. Carrol MORALES Paroxysmal atrial fibrillation ([facility]) 016 Overview (01/08/2024): 05/10/2021 Dr. Carrol MORALES Hypertensive disorder 05/17/2012 Type 2 diabetes mellitus without complication ([facility]) 05/17/2012 End-stage renal disease ([facility]) 02/21/2000 Overview (01/08/2024): 05/10/2021 Dr. Carrol MORALES Athscl heart disease of venecia ve coronary artery w/o ang pctrs 02/21/2000 Overview (01/08/2024): Mild, non-obstructive CAD Other specified chronic obstructive pulmonary di sease 02/21/2000 Overview (01/08/2024): Second Cutter Dr Tobin Other cardiomyopathies 02/21/2000 Overview (01/08/2024): 09/24/2020 CARMEN, Dr. Alves Congestive heart failure ([facility]) 02/21/2000 Obstructive sleep apnea (adult) (pediatric) 02/2000 Overview (01/08/2024): uses CPAP without O2- compliant most nights uses CPAP without O2- compliant most nights Dependence on renal dialysis ([facility]) 1 Generalized anxiety disorder 02/21/2000 Hypertensive heart and chron ic kidney disease with heart failure and with stage 5 chronic kidney disease, or end stage renal disease 02/21/2000 Low back pain, unspecified 02/21/2000 Other chronic pain 02/21/2000 Pure hypercholesterolemia, unspecified 1 Type 2 diabetes mellitus wit h diabetic chronic kidney disease 02/21/2000 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 02/21/2000 Immunizations Name Administration Dates Next Due BCG 10/16/2019, 9,10/11/2017,10/12,09/30/2015,10/08/2014,10/07/2013 ,11/10/2012,05/23/2012 COVID-19 mRNA ([facility]) 0.3 m L (30 mcg) vaccine (12 [...] Unspecified 09/16/2019 Tdap 11/13/2023,09/28/2022,12/11/2018 ZOSTER Recombinant 01/07/2020,12/11/2018 Social History Tobacco Use Types Packs/Day Years Used Date Smoking Tobacco: Never Smokeless Tobacco: Never Tobacco Cessation:Counseling Given: Not Answered [facility] Utilities Answer Date Recorded In the past 12 months has th e electric, gas, oil, or water company threatened to shut off services in your [...] week 01/31/2024 How often do you attend [facility] or zoroastrianism services? More than 4 times per year 01/31/2024 Do you belong to any clubs o r organizations such as baptism groups, unions, fraternal or athletic groups, or [...] any time in the past 12 m [facility], were you homeless or living in a long term (including now)? No 01/31/2024 Personal Safety Answer Date Recorded Have you ever been in or are you currently in a harmful physical or emotional relationship or is someone making you feel afraid or unsafe? Denies 03/08/2024 Comments No Sex and Gender Information Value Date Recorded Sex Assigned at Not on file Legal Sex Female 1:25 AM AIRPORT CONTROL OPERATOR Gender Identity Not on file Sexual Orientation Not on file Last Filed Vital Signs Vital Sign Reading Time Taken Comments Blood Pressure 101/76 03/08/2024 2:20 PM AIRPORT CONTROL OPERATOR Pulse 76 03/08/2024 2:50 PM AIRPORT CONTROL OPERATOR Temperature 36.2 ??C (97.2 ??F) 03/08/2024 1:40 PM CS T Respiratory Rate 16 03/08/2024 2:50 PM AIRPORT CONTROL OPERATOR Oxygen Saturation 92% 03/08/2024 2:50 PM AIRPORT CONTROL OPERATOR Inhaled Oxygen Concentration - - Weight 73.5 kg (162 lb 0.6 oz) 03/14/2024 7:47 A M AIRPORT CONTROL OPERATOR Height 157.5 cm (5' 2 ) 03/08/2024 10:00 AM AIRPORT CONTROL OPERATOR Body Mass Index 29.64 03/08/2024 10:00 AM AIRPORT CONTROL OPERATOR Results * (ABNORMAL) eGFR (03/08/2024 10:14 AM AIRPORT CONTROL OPERATOR) Pathologist [facility] eGFR 11(L) >=60 mL/min/1. 73 m2 Comment: [...] reviewed 2020. Blood 03/08/2024 10:1 4 AM AIRPORT CONTROL OPERATOR 03/08/2024 10:15 AM AIRPORT CONTROL OPERATOR us Adalberto Linder MD LAB BLOOD ORDERABLES Final Result [facility] [address] Department [place] [address] * (ABNORMAL) Basic metabolic panel (03/08/2024 10:14 AM AIRPORT CONTROL OPERATOR) Pathologist [facility] Sodium 137 135 - 145 mmol/L Potassium, pl 3.6 3.3 - 4.9 mmol/L [facility] Chloride 98 97 - 110 mmol/L [facility] CO2 23 22 - 32 mmol/L [facility] Anion gap 16(H) 2 - 15 mmol/L [facility] BUN 17 6 - 25 mg/dL [facility] Creatinine 4.19(H) 0.60 - 1.10 mg/dL [facility] Glucose 91 70 - 199 mg/dL [facility] Comment: Interpretive Data Fasting glucose >/= 126 [...] 2022. Calcium 9.7 8.5 - 10.3 mg/dL [facility] Blood 03/08/2024 10:1 4 AM AIRPORT CONTROL OPERATOR 03/08/2024 10:15 AM AIRPORT CONTROL OPERATOR us Adalberto Linder MD LAB BLOOD ORDERABLES Final Result [facility] [address] Department [place] [address] * US Hemodialysis Access (02/12/2024 2:27 PM AIRPORT CONTROL OPERATOR) Anatomical Region Laterality Modality Vascular N/A Ultrasound 02/13/2024 2:35 PM AIRPORT CONTROL OPERATOR Impressions 02/13/2024 2:35 PM AIRPORT CONTROL OPERATOR No duplex evidence of obstruction in the AVF. ??Adequate flow for dialysis. Electronically signed by: Adalberto Linder MD Narrative 02/13/2024 2:35 PM AIRPORT CONTROL OPERATOR AVF DATE: ??02/12/2024 1:15 PM EXAM: ??Duplex [...] Adalberto Linder MD us Adalberto Linder MD IMG US PROCEDURES Final Res ult * Hepatitis panel, acute Blood (01/31/2024 10:35 AM AIRPORT CONTROL OPERATOR) Hep A IgM Nonreactive Nonreactive Comment: Interpretive Data: If Hep A IgM Ab is reported as Equivocal, a new sample should be drawn in two weeks for testing. Current interpretive data was last revised on 19. Hep B core IgM Nonreactive Nonreactive [facility] Comment: Interpretive Data If HepB Core IgM Ab is reported as Equivocal, a new sample should be drawn in two weeks for testing. Current interpretive data was last revised on 19. Hep C Ab Nonreactive Nonreactive [facility] Comment: Interpretive Data Nonreactive: Antibodies to HCV [...] last revised on 2019. HepBsAg Nonreactive Nonreactive [facility] Blood 01/31/2024 10:3 5 AM AIRPORT CONTROL OPERATOR 01/31/2024 10:36 AM AIRPORT CONTROL OPERATOR us Connie Greenberg MD LAB MICROBIOLOGY - [facility] ORDERABLES Final Result [facility] [address] Department [place] [address] * IR Tunneled Line Placement > 5 Years (01/31/2024 8:29 AM AIRPORT CONTROL OPERATOR) Anatomical Region Laterality Modality Body N/A X-Ray Angiograph y 01/31/2024 4:05 PM AIRPORT CONTROL OPERATOR Impressions 01/31/2024 4:05 PM AIRPORT CONTROL OPERATOR Successful tunneled 24 cm Duraflow catheter (19 cm cuff to tip) placement via the right external jugular vein. PLAN: ??The catheter is ready for immediate use. ?? When treatment is completed, removal can be scheduled by calling: [facility] - [phone] [facility] - [phone] [facility] - [phone] Electronically signed by: Amanda Rehman PA-C Narrative 01/31/2024 4:05 PM AIRPORT CONTROL OPERATOR EXAMINATION: ??TUNNELED CENTRAL VENOUS CATHETER PLACEMENT USING [...] was obtained. ??Prior to beginning the procedure, [place] Protocol was used to confirm the patient's [...] . ??No complications are seen. Procedure Note Amadna Rehman PA - 01/31/2024 EXAMINATION: TUNNELED CENTRAL VENOUS [...] was obtained. Prior to beginning the procedure, [place] Protocol was used to confirm the patient's [...] completed, removal can be scheduled by calling: [facility] - [phone] [facility] - [phone] [facility] - [phone] Electronically signed by: Amanda Rehman PA-C Connie Greenberg MD IMG IR PROCEDURES Final Result * (ABNORMAL) eGFR (01/31/2024 5:33 AM AIRPORT CONTROL OPERATOR) eGFR 4(L) >=60 mL/min/1. 73 m2 Comment: [...] of Race in Diagnosing Kidney Disease, JASN 202). The CKD-EPI equation should not be used for patients with unstable renal function and has not been validated in children and those over 70. Current interpretive data was last reviewed 2020. Blood 01/31/2024 5:33 AM AIRPORT CONTROL OPERATOR 01/31/2024 7:05 AM AIRPORT CONTROL OPERATOR Adalberto Linder MD LAB BLOOD ORDERABLES Final Result Performing Organization Address [facility] Co de Phone Number [facility] [address] [place] [address] * (ABNORMAL) CBC without differential (01/31/2024 5:33 AM AIRPORT CONTROL OPERATOR) Pathologist [facility] WBC 10.2(H) 3.8 - 9.9 K/cumm Hgb 9.5(L) 11.9 - 15.5 g/dL [facility] Hct 30.4(L) 35.6 - 45.5 % [facility] Plt 264 150 - 400 K/cumm [facility] MPV 10.1 9.1 - 12.3 fL [facility] RBC 3.33(L) 3.90 - 5.20 M/cumm [facility] MCV 91.3 81.3 - 96.4 fL [facility] MCH 28.5 27.1 - 33.3 pg [facility] MCHC 31.3(L) 32.3 - 35.7 g/dL [facility] RDW CV 14.8 11.1 - 14.9 % [facility] RDW SD 49.1(H) 35.7 - 48.1 fL [facility] NRBC abs 0.00 0.00 - 0.01 K/cumm [facility] Blood 01/31/2024 5:33 AM AIRPORT CONTROL OPERATOR 01/31/2024 7:06 AM AIRPORT CONTROL OPERATOR Adalberto Linder MD LAB BLOOD ORDERABLES Final Result Performing Organization Address [facility] Co de Phone Number [facility] [address] Department [employer] [place], [place] [id number] * (ABNORMAL) Renal function panel (01/31/2024 5:33 AM AIRPORT CONTROL OPERATOR) Pathologist [facility] Sodium 142 135 - 145 mmol/L Potassium, pl 5.0(H) 3.3 - 4.9 mmol/L [facility] Chloride 99 97 - 110 mmol/L [facility] CO2 22 22 - 32 mmol/L [facility] Anion gap 21(H) 2 - 15 mmol/L [facility] BUN 73(H) 6 - 25 mg/dL [facility] Creatinine 9.88(H) 0.60 - 1.10 mg/dL [facility] Glucose 68(L) 70 - 199 mg/dL [facility] Comment: Interpretive Data Fasting glucose >/= 126 [...] 2022. Calcium 9.2 8.5 - 10.3 mg/dL [facility] Phosphorus, pl 7.3(H) 2.3 - 4.5 mg/dL [facility] Albumin 3.8 3.5 - 5.0 g/dL [facility] Blood 01/31/2024 5:33 AM AIRPORT CONTROL OPERATOR 01/31/2024 7:05 AM AIRPORT CONTROL OPERATOR us Adalberto Linder MD LAB BLOOD ORDERABLES Final Result [facility] [address] Department [place] [address] * (ABNORMAL) eGFR (01/30/2024 8:09 PM AIRPORT CONTROL OPERATOR) [facility] eGFR 4(L) >=60 mL/min/1. 73 m2 Comment: [...] last reviewed 2020. Blood 01/30/2024 8:09 PM AIRPORT CONTROL OPERATOR 01/30/2024 8:27 PM AIRPORT CONTROL OPERATOR Connie Greenberg MD LAB BLOOD ORDERABLES Fi nal Result [facility] [address] Department [place] [address] * (ABNORMAL) Differential, auto (01/30/2024 8:09 PM AIRPORT CONTROL OPERATOR) Neutrophil abs 6.1 1.5 - 6.5 K/cumm Imm gran abs 0.2(H) 0.0 - 0.1 K/cumm [facility] Lymphocyte abs 2.7 0.8 - 3.3 K/cumm [facility] Monocyte abs 0.8 0.2 - 0.8 K/cumm [facility] Eosinophil abs 0.0 0.0 - 0.5 K/cumm [facility] Basophil abs 0.0 0.0 - 0.1 K/cumm [facility] Neutrophil pct 62.3 % [facility] Comment: Interpretive Data Percent cell count reference ranges are not reported, since discordance with absolute values may lead to misinterpretation of CBC data. Current Interpretive Data was last revised on 2017. Imm gran pct 2.0 % [facility] Comment: Interpretive Data Percent cell count reference ranges are not reported, since discordance with absolute values may lead to misinterpretation of CBC data. Current Interpretive Data was last revised on 2017. Lymphocyte pct 27.4 % [facility] Comment: Interpretive Data Percent cell count reference ranges are not reported, since discordance with absolute values may lead to misinterpretation of CBC data. Current Interpretive Data was last revised on 2017. Monocyte pct 7.8 % [facility] Comment: Interpretive Data Percent cell count reference ranges are not reported, since discordance with absolute values may lead to misinterpretation of CBC data. Current Interpretive Data was last revised on 2017. Eosinophil pct 0.1 % [facility] Comment: Interpretive Data Percent cell count reference ranges are not reported, since discordance with absolute values may lead to misinterpretation of CBC data. Current Interpretive Data was last revised on 2017. Basophil pct 0.4 % [facility] Comment: Interpretive Data Percent cell count reference ranges are not reported, since discordance with absolute values may lead to misinterpretation of CBC data. Current Interpretive Data was last revised on 2017. Blood 01/30/2024 8:09 PM AIRPORT CONTROL OPERATOR 01/30/2024 8:27 PM AIRPORT CONTROL OPERATOR us Connie Greenberg MD LAB BLOOD ORDERABLES Fi nal Result [facility] [address] [place] [address] * (ABNORMAL) CBC with auto differential (01/30/2024 8:09 PM AIRPORT CONTROL OPERATOR) WBC 9.8 3.8 - 9.9 K/cumm Hgb 10.2(L) 11.9 - 15.5 g/dL [facility] Hct 32.9(L) 35.6 - 45.5 % [facility] Plt 254 150 - 400 K/cumm [facility] MPV 9.7 9.1 - 12.3 fL [facility] RBC 3.59(L) 3.90 - 5.20 M/cumm [facility] MCV 91.6 81.3 - 96.4 fL [facility] MCH 28.4 27.1 - 33.3 pg [facility] MCHC 31.0(L) 32.3 - 35.7 g/dL [facility] RDW CV 14.6 11.1 - 14.9 % [facility] RDW SD 48.5(H) 35.7 - 48.1 fL [facility] NRBC abs 0.00 0.00 - 0.01 K/cumm [facility] Blood 01/30/2024 8:09 PM AIRPORT CONTROL OPERATOR 01/30/2024 8:27 PM AIRPORT CONTROL OPERATOR Connie Greenberg MD LAB BLOOD ORDERABLES Fi nal Result Performing Organization Address [facility] de Phone Number [facility] [address] Department [employer] [place], [place] [id number] * Protime-INR (01/30/2024 8:09 PM AIRPORT CONTROL OPERATOR) PT 11.6 9.7 - 13.0 sec INR 1.07 0.90 - 1.20 [facility] Comment: Interpretive data Oral anticoagulant therapeutic ranges: Venous thromboembolism prophylaxis or treatment: 2.0-3.0 CARDIOLOGY Standard range: 2.0-3.0 High-intensity range: 2.5-3.5 Refer to indication-specific guidelines for appropriate target ranges for prosthetic heart valve replacement. Current interpretive data was last revised on 2019. Blood 01/30/2024 8:09 PM AIRPORT CONTROL OPERATOR 01/30/2024 8:27 PM AIRPORT CONTROL OPERATOR Connie Greenberg MD LAB BLOOD ORDERABLES Fi nal Result Performing Organization Address [facility]/ZIP Co de Phone Number [facility] [address] Department [place] [address] * (ABNORMAL) Phosphorus (01/30/2024 8:09 PM AIRPORT CONTROL OPERATOR) Pathologist [facility] Phosphorus, pl 6.8(H) 2.3 - 4.5 mg/dL Blood 01/30/2024 8:09 PM AIRPORT CONTROL OPERATOR 01/30/2024 8:27 PM AIRPORT CONTROL OPERATOR Connie Greenberg MD LAB BLOOD ORDERABLES Fi nal Result [facility] [address] Department [place] [address] * (ABNORMAL) Comprehensive metabolic panel (01/30/2024 8:09 PM AIRPORT CONTROL OPERATOR) [facility] Sodium 140 135 - 145 mmol/L Potassium, pl 4.8 3.3 - 4.9 mmol/L [facility] Chloride 101 97 - 110 mmol/L [facility] CO2 21(L) 22 - 32 mmol/L [facility] Anion gap 18(H) 2 - 15 mmol/L [facility] BUN 65(H) 6 - 25 mg/dL [facility] Creatinine 9.06(H) 0.60 - 1.10 mg/dL [facility] Glucose 90 70 - 199 mg/dL [facility] Comment: Interpretive Data Fasting glucose >/= 126 [...] 2022. Calcium 9.5 8.5 - 10.3 mg/dL [facility] Bilirubin, total 0.3 0.1 - 1.2 mg/dL [facility] Protein, pl 7.2 6.5 - 8.5 g/dL [facility] Albumin 3.8 3.5 - 5.0 g/dL [facility] Alk phos 79 40 - 130 Units/L [facility] ALT 9 7 - 45 Units/L [facility] AST 14 10 - 45 Units/L [facility] Blood 01/30/2024 8:09 PM AIRPORT CONTROL OPERATOR 01/30/2024 8:27 PM AIRPORT CONTROL OPERATOR us Connie Greenberg MD LAB BLOOD ORDERABLES Fi nal Result [facility] [address] Department [place] [address] * Surgical pathology (01/30/2024 5:00 PM AIRPORT CONTROL OPERATOR) Tissue (Artery) 01/30/2024 5 :00 PM AIRPORT CONTROL OPERATOR Comment:Placed in formalin a t the end of case Narrative PATHOLOGY [facility] - 02/01/2024 10:58 AM AIRPORT CONTROL OPERATOR [place] [address] [place], [place] ??[address] Tele: ?? Dasha Dempsey MD - Pediatrician/Medical Doctor Note to Patients: This report may contain [...] the details. SURGICAL PATHOLOGY REPORT Patient Name: ??DERIC MOY Purdy Address: ??[address] [place] [address]61 Gender: ??F : ??1955 (Age: 68) Service: ??Surgery Location: ??[id number], ?? Hospital #: ??[id number] Patient Type: ??MBC OP IN BED Accession #: ? [id number] Taken: ? 01/30/2024 Received ? 01/31/2024 Reported: [...] entirely submitted in cassette labeled A1. ?? JAP,CUAriela MICROSCOPIC DESCRIPTION: Microscopic examination supports the above captioned diagnosis. Clerical Data Follows A; [id number] REPORT IMAGES AND/OR SCANNED DOCUMENTS ONLY VIEWABLE IN PDF FORMAT The immunohistochemical test(s) cited in this report, if any, was developed and its performance characteristics determined by [facility] Pathology Department. ??It has not been cleared or approved by the U.S. Food and Drug Administration. ??The FDA has determined that such clearance or approval is not necessary. ??This test is used for clinical purposes. ??It should not be regarded as investigational or for research. ??[facility] Laboratory is certified under the Clinical Laboratory [...] part or completely in the following laboratories: [facility], [address], [place] [address] [facility], [address], [place] [address]. us Adalberto Linder MD LAB PATHOLOGY ORDERABLES Fi nal Result PATHOLOGY [facility] Laboratory Receiving [facility] [place], [place] [id number] * ND AN PROCEDURE PLACEHOLDER (01/30/2024 2:06 PM AIRPORT CONTROL OPERATOR) Narrative Librado Rodriges DO - 01/30/2024 2:06 PM AIRPORT CONTROL OPERATOR Librado Rodriges DO ? 01/30/2024 ??2:06 PM [...] patient tolerated procedure well with no complications us Librado Lino Kheyfets DO ANESTHESIA ORDERABLES Final Result * Potassium (01/30/2024 12:50 PM AIRPORT CONTROL OPERATOR) Potassium, pl 4.7 3.3 - 4.9 mmol/L Blood 01/30/2024 12:5 0 PM AIRPORT CONTROL OPERATOR 01/30/2024 12:54 PM AIRPORT CONTROL OPERATOR Librado Huynh Rachelcaridadjackie DO LAB BLOOD ORDERABLES Final Result [facility] [address] Department [place] [address] * (ABNORMAL) eGFR (01/30/2024 11:51 AM AIRPORT CONTROL OPERATOR) eGFR 5(L) >=60 mL/min/1. 73 m2 Comment: [...] of Race in Diagnosing Kidney Disease, JASN 202). The CKD-EPI equation should not be used for patients with unstable renal function and has not been validated in children and those over 70. Current interpretive data was last reviewed 2020. Blood 01/30/2024 11:5 1 AM AIRPORT CONTROL OPERATOR 01/30/2024 11:51 AM AIRPORT CONTROL OPERATOR Adalberto Linder MD LAB BLOOD ORDERABLES Final Result [facility] [address] Department [place] [address] * (ABNORMAL) Basic metabolic panel (01/30/2024 11:51 AM AIRPORT CONTROL OPERATOR) Sodium 139 135 - 145 mmol/L Potassium, pl 7.1(C) 3.3 - 4.9 mmol/L [facility] Comment: Hemolyzed; potassium value may be falsely elevated by as much as 0.6 - 1.0 mmol/L. Suggest redraw and reanalysis Critical result called to and read back by jacy fleming on 01/30/2024 ??12:29 to [id number] Chloride 97 97 - 110 mmol/L [facility] CO2 22 22 - 32 mmol/L [facility] Anion gap 20(H) 2 - 15 mmol/L [facility] BUN 60(H) 6 - 25 mg/dL [facility] Creatinine 8.31(H) 0.60 - 1.10 mg/dL [facility] Glucose 87 70 - 199 mg/dL [facility] Comment: Interpretive Data Fasting glucose >/= 126 [...] 2022. Calcium 9.7 8.5 - 10.3 mg/dL [facility] Blood 01/30/2024 11:5 1 AM AIRPORT CONTROL OPERATOR 01/30/2024 11:51 AM AIRPORT CONTROL OPERATOR Adalberto Linder MD LAB BLOOD ORDERABLES Final Result [facility] [address] Department [place] [address] * US Vein Mapping Fistula Access, Bilateral (01/25/2024 1:50 PM AIRPORT CONTROL OPERATOR) Anatomical Region Laterality Modality Vascular Bilateral Ultrasound 01/25/2024 4:36 PM AIRPORT CONTROL OPERATOR Impressions 01/25/2024 4:36 PM AIRPORT CONTROL OPERATOR Patent basilic and cephalic veins with the aforementioned measurements. Electronically signed by: MD Malina Thompson 01/25/2024 4:36 PM AIRPORT CONTROL OPERATOR Vein Mapping UE DATE: 01/25/2024 12:30 PM [...] Patti Blanchard MD us Adalberto Linder MD IMG US PROCEDURES Final Res ult from Last 3 Months
--- OUTSIDE RECORDS SUMMARY | 2024-03-25 09:09 | XMS_ITS | Continuity of Care Document ---
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 [address] [facility] [address], [place], [address], [place]. tel:[phone] Family History Family Member Type Diagnosis Age At Onset No Information Payers Payer name Insurance type Covered republican ID Authoriza tion(s) Medicaid [facility] [id number] Social History Type Description Quantity Date Captured Comments Sex Female Smoking Status No Information Chief Complaint And Reason For Visit No Information Reason For Referral Reason For Referral No Information History Of Present Illness Encounter Date Complaint History Of Prese nt Illness No Information Functional Status Date Functional Assessmen t No Information Instructions Date Instruction Additional Infor mation No Information Assessments Type Assessment Date No Information Patient Care Teams Name Effective Dates (start - stop) Status Members No Information
--- OUTSIDE RECORDS SUMMARY | 2024-03-25 09:09 | XMS_ITS | Continuity of Care Document ---
Author Organization [id number] Address [address] [place] [address] Phone Care Team Providers Care Professor Of Graphic Design Name Role Phone Francisco Castano DO Unavailable Unavailable Procedures Procedure Date HOSPITAL SUBSQ EM EXP PROB FOCUS/MODERAT E 25 MINS HOSPITAL INITIAL EM COMPREHENSIVE/HIGH 7 0 MINS HOSPITAL SUBSQ EM EXP PROB FOCUS/MODERAT E 25 MINS Advance Directives Directive Yes / No Effective Date File Name No Information Encounters Encounter Description Practice Location Reason(s) For Visit Diagnoses Date Provider Providers Copied on Encounter HOSPITAL SUBSQ EM EXP PROB FOCUS/MODERAT E 25 MINS [id number] [facility],[employer], [address] [facility] [address], [place], [address], tel:[phone] [facility] Cardiology No Information Eyad Singh. [address] [place], [place], [id number]. tel:[phone] Referring Provider: Melody Prado [address] [place] [address], [id number] . tel:[phone] HOSPITAL INITIAL EM COMPREHENSIVE /HIGH 70 MINS [id number] - [facility] [employer], [address] [facility] [address], [place], [address], tel:[phone] [facility] Cardiology No Information Eyad Singh. [address] [place], [place], [id number]. tel:[phone] Referring Provider: Melody Prado [address] [place] [address], [id number] . tel:[phone] Family History Family Member Type Diagnosis Age At Onset No Information Payers Payer name Insurance type Covered libertarian ID Authoriza tion(s) [place] [id number] [facility] [place] [facility] [place] [id number] Social History Type Description Quantity Date Captured [...]
--- OUTSIDE RECORDS SUMMARY | 2024-03-25 09:09 | XMS_ITS | Referral Summary ---
Author Organization [facility] [address] Address [address] [place] [address] Care Team Providers Care Cash Control Specialist Name Role Phone Carrol Pitts MD, Federico Howe Primary Care Provider Adalberto Linder MD Unavailable Jc Moreau MD Unavailable Carmen Chavez RN Unavailable Encounters Date Type Department Care Team Description 03/18/2024 Documentation [facility] Transplant Kidney [address] [facility] [address] [phone] [place] [address] Carmen Chavez RN Referral - Kidney Txp 03/14/2024 Documentation [facility] Transplant Kidney [address] [facility] [address] [phone] [place] [address] Lorene Banerjee 03/12/2024 Telephone [facility] Surgery [address] [facility] [address] [place] [address] Adalberto Linder MD Med Management 03/11/2024 Documentation [facility] Transplant Kidney [address] [facility] [address] [id number] [place] [address] Carmen Chavez RN Referral - Kidney Txp 03/11/2024 Telephone [facility] Transplant Kidney [address] [facility] [address] [phone] [place] [address] Lorene Banerjee Referral - Kidney Txp 03/08/2024 12:22 PM BOILER TENDERS SUPERVISOR Anesthesia Event [facility] Operating Room [facility] [place] [phone] Miguel Becker MD 03/08/2024 12:00 PM BOILER TENDERS SUPERVISOR - 03/08/2024 2:30 PM BOILER TENDERS SUPERVISOR Surgery [facility] Operating Room [address] [place] [phone] Adalberto Linder MD Revision Left Arm AV Fistula 03/08/2024 9:36 AM BOILER TENDERS SUPERVISOR - 03/08/2024 3:38 PM BOILER TENDERS SUPERVISOR Hospital Encounter [facility] Operating Room [address] [place] [phone] Adalberto Linder MD Complication of arteriovenous dialysis fistula, subsequent encounter (Primary Dx); End stage renal disease (CMS/HCC) (HCC) Discharge Disposition: Discharge to home or self care 03/07/2024 Telephone [facility] Transplant Kidney [address] [facility] [address] [phone] [place] [address] Jodi Cooper Referral - Kidney Txp 03/04/2024 1:00 PM BOILER TENDERS SUPERVISOR Office Visit [facility] Surgery [address] [place] [phone] Adalberto Linder MD 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, initial encounter (HCC) 02/12/2024 3:00 PM BOILER TENDERS SUPERVISOR Office Visit [facility] Surgery [address] [place] [phone] Adalberto Linder MD S/P arteriovenous (AV) fistula creation (Primary Dx) 02/12/2024 1:01 PM BOILER TENDERS SUPERVISOR - 02/12/2024 11:59 PM BOILER TENDERS SUPERVISOR Hospital Encounter [facility] Vascular Lab [address] [place] [phone] Arteriovenous fistula, acquired (CMS/HCC) (HCC); Pain due to vascular prosthetic devices, implants and grafts, initial encounter (HCC) Discharge Disposition: Discharge to home or self care 02/07/2024 Telephone [facility] Surgery [address] [phone] Adalberto Linder MD Post-op Problem 01/30/2024 10:48 AM BOILER TENDERS SUPERVISOR - 02/01/2024 7:09 PM BOILER TENDERS SUPERVISOR Hospital Encounter [address] [phone] Adalberto Linder MD End stage renal disease (CMS/HCC) (HCC); 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, initial encounter (HCC) Discharge Disposition: Discharge to home or self care 01/30/2024 2:01 PM BOILER TENDERS SUPERVISOR Anesthesia Event [facility] Operating Room [address] [place] [phone] Librado Rodriges DO 01/30/2024 1:15 PM BOILER TENDERS SUPERVISOR - 01/30/2024 4:00 PM BOILER TENDERS SUPERVISOR Surgery [facility] Operating Room [address] [place] [phone] Adalberto Linder MD Creation Arteriovenous Fistula 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 01/25/2024 2:00 PM BOILER TENDERS SUPERVISOR Office Visit [facility] Surgery [address] [place] [phone] Adalberto Linder MD 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, initial encounter (HCC) (Primary Dx); End stage renal disease (CMS/HCC) (HCC) 01/25/2024 12:30 PM BOILER TENDERS SUPERVISOR - 01/25/2024 11:59 PM BOILER TENDERS SUPERVISOR Hospital Encounter [facility] Vascular Lab [address] [place] [phone] End stage renal disease (CMS/HCC) (HCC) Discharge Disposition: Discharge to home or self care 01/08/2024 Orders Only [facility] Surgery [address] [facility] [address] [place] [phone] Adalberto Linder MD End stage renal disease (CMS/HCC) (HCC) (Primary Dx) from Last 3 Months Allergies Active Allergy [...] fistula 0 03/08/2024 End stage renal disease ([facility]) 03/04/2024 S/P arteriovenous (AV) fistula creation 01/30/20 Steal syndrome as complication of dialysis acces s ([facility]) 01/25/2024 Hyperlipidemia 01/08/2024 Spinal stenosis of lumbar [...] pressor needs Moderate mitral regurgitation 11/10/2021 Paraparesis ([facility]) 11/10/2021 Chronic systolic heart failure ([facility]) 021 Overview (01/08/2024): 05/10/2021 Dr. 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 Carrol MORALES [...] Restrictive lung disease 08/15/2016 Typical atrial flutter ([facility]) 08/15/2016 Hyperparathyroidism, secondary renal 07/23/2015 Overview (01/08/2024): 05/10/2021 Dr. Carrol MORALES Paroxysmal atrial fibrillation ([facility]) 016 Overview (01/08/2024): 05/10/2021 Dr. Carrol MORALES Hypertensive disorder 05/17/2012 Type 2 diabetes mellitus without complication ([facility]) 05/17/2012 End-stage renal disease ([facility]) 02/21/2000 Overview (01/08/2024): 05/10/2021 Dr. Carrol MORALES Athscl heart disease of venecia ve coronary artery w/o ang pctrs 02/21/2000 Overview (01/08/2024): Mild, non-obstructive CAD Other specified chronic obstructive pulmonary di sease 02/21/2000 Overview (01/08/2024): Configuration Release Manager Dr Tobin Other cardiomyopathies 02/21/2000 Overview (01/08/2024): 09/24/2020 Dr. Joselyn MORALES Congestive heart failure ([facility]) 02/21/2000 Obstructive sleep apnea (adult) (pediatric) 02/2000 Overview (01/08/2024): uses CPAP without O2- compliant most nights uses CPAP without O2- compliant most nights Dependence on renal dialysis ([facility]) 1 Generalized anxiety disorder 02/21/2000 Hypertensive heart [...] Due BCG 10/16/2019, 9,10/11/2017,10/12,09/30/2015,10/08/2014,10/07/2013 ,11/10/2012,05/23/2012 COVID-19 mRNA ([employer]) 0.3 m L (30 mcg) vaccine (12 [...] Tobacco: Never Tobacco Cessation:Counseling Given: Not Answered [facility] Utilities Answer Date Recorded In the past 12 months has [employer] electric, gas, oil, or water company threatened [...] 01/31/2024 How often do you attend chur ch or pentecostalism services? More than 4 times per year 01/31/2024 Do you belong to any clubs o r organizations such as mormonism groups, unions, fraternal or athletic groups, or [...] any time in the past 12 m [facility], were you homeless or living in a [facility]p (including now)? No 01/31/2024 Personal Safety Answer Date Recorded Have you ever been in or are you currently in a harmful physical or emotional relationship or is someone making you feel afraid or unsafe? Denies 03/08/2024 Comments No Sex and Gender Information Value Date Recorded Sex Assigned at Not on file Legal Sex Female 1:25 AM BOILER TENDERS SUPERVISOR Gender Identity Not on file Sexual Orientation Not on file Last Filed Vital Signs Vital Sign Reading Time Taken Comments Blood Pressure 101/76 03/08/2024 2:20 PM BOILER TENDERS SUPERVISOR Pulse 76 03/08/2024 2:50 PM BOILER TENDERS SUPERVISOR Temperature 36.2 ??C (97.2 ??F) 03/08/2024 1:40 PM CS T Respiratory Rate 16 03/08/2024 2:50 PM BOILER TENDERS SUPERVISOR Oxygen Saturation 92% 03/08/2024 2:50 PM BOILER TENDERS SUPERVISOR Inhaled Oxygen Concentration - - Weight 73.5 kg (162 lb 0.6 oz) 03/14/2024 7:47 A M BOILER TENDERS SUPERVISOR Height 157.5 cm (5' 2 ) 03/08/2024 10:00 AM BOILER TENDERS SUPERVISOR Body Mass Index 29.64 03/08/2024 10:00 AM BOILER TENDERS SUPERVISOR Plan of Treatment Not on file Medical Devices Implanted Type Area Baby Formula Worker Device Identifier Shelf Expiration Date Model / Serial / Lot Bard Peripheral Vascular [place] Cardiovascular Nominal Thickness Polytetrafluoroethylene 1.65mmx1/4x1/4in [id number] - [id number] Implanted:Qty: 1 on 01/30/2024 by Adalberto Linder MD at [facility] Left: Forearm Bard Peripheral Vascular [id number] 11/17/2025 [id number] / / [id number] [facility] E[employer] and [employer] Duraflow Embosafe 15.5fr 24cm Basic 2 Lumen Kit Catheter [id number] - [id number] Implanted:Qty: 1 on 01/31/2024 at [facility] Unyqe 10/20/2025 [id number] / / [id number] Procedures Procedure Name Priority Date/Time Associated Diagnosis Comments REVISION ARTERIOVENOUS FISTULA - ARM 03/08/2024 12:21 PM BOILER TENDERS SUPERVISOR End stage renal disease (CMS/HCC) (HCC) EGFR Routine 03/08/2024 10:14 AM BOILER TENDERS SUPERVISOR BASIC METABOLIC PANEL Routine 03/08/2024 10:14 AM BOILER TENDERS SUPERVISOR US HEMODIALYSIS ACCESS Schedule Routine, Read Routine (OP Routine) 02/12/2024 2:27 PM BOILER TENDERS SUPERVISOR Arteriovenous fistula, acquired (CMS/HCC) (HCC) Pain due to vascular prosthetic devices, implants and grafts, initial encounter (HCC) HEPATITIS PANEL, ACUTE STAT 01/31/2024 10:35 AM BOILER TENDERS SUPERVISOR HEMODIALYSIS Routine 01/31/2024 9:35 AM BOILER TENDERS SUPERVISOR TUNNELED LINE PLACEMENT > 5 YEARS IP Routine 01/31/2024 8:29 AM BOILER TENDERS SUPERVISOR EGFR Routine 01/31/2024 5:33 AM BOILER TENDERS SUPERVISOR RENAL FUNCTION PANEL Routine 01/31/2024 5:33 AM BOILER TENDERS SUPERVISOR CBC WITHOUT DIFFERENTIAL Routine 01/31/2024 5:33 AM BOILER TENDERS SUPERVISOR EGFR STAT 01/30/2024 8:09 PM BOILER TENDERS SUPERVISOR DIFFERENTIAL AUTO STAT 01/30/2024 8:0 9 PM BOILER TENDERS SUPERVISOR PROTIME-INR STAT 01/30/2024 8:09 PM BOILER TENDERS SUPERVISOR PHOSPHORUS STAT 01/30/2024 8:09 PM BOILER TENDERS SUPERVISOR COMPREHENSIVE METABOLIC PANEL STAT 01/30/2024 8:09 PM BOILER TENDERS SUPERVISOR CBC WITH AUTO DIFFERENTIAL STAT 01/30/2024 8:09 PM BOILER TENDERS SUPERVISOR SURGICAL PATHOLOGY Routine 01/30/2024 5: 00 PM BOILER TENDERS SUPERVISOR End stage renal disease (CMS/HCC) (HCC) 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, initial encounter (HCC) MT AN PROCEDURE PLACEHOLDER Routine 01/30/2024 2:06 PM BOILER TENDERS SUPERVISOR LIGATION ARTERIO VENOUS FISTULA 01/30/2024 2:04 PM BOILER TENDERS SUPERVISOR End stage renal disease (CMS/HCC) (HCC) 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, initial encounter (HCC) CONSTRUCTION ARTERIOVENOUS FISTULA 01/30/2024 2:04 PM BOILER TENDERS SUPERVISOR End stage renal disease (CMS/HCC) (HCC) 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, initial encounter (HCC) POTASSIUM LEVEL STAT 01/30/2024 12:50 PM BOILER TENDERS SUPERVISOR EGFR STAT 01/30/2024 11:51 AM BOILER TENDERS SUPERVISOR BASIC METABOLIC PANEL STAT 01/30/2024 11:51 AM BOILER TENDERS SUPERVISOR US VEIN MAPPING FISTULA ACCESS, BILATERAL Schedule Routine, Read Routine (OP Routine) 01/25/2024 1:50 PM BOILER TENDERS SUPERVISOR End stage renal disease (CMS/HCC) (HCC) from Last 3 Months Results * (ABNORMAL) eGFR (03/08/2024 10:14 AM BOILER TENDERS SUPERVISOR) eGFR 11(L) >=60 mL/min/1. 73 m2 Comment: [...] reviewed 2020. Blood 03/08/2024 10:1 4 AM BOILER TENDERS SUPERVISOR 03/08/2024 10:15 AM BOILER TENDERS SUPERVISOR Adalberto Linder MD LAB BLOOD ORDERABLES Final Result [facility] [address] Department [place] [address] * (ABNORMAL) Basic metabolic panel (03/08/2024 10:14 AM BOILER TENDERS SUPERVISOR) Sodium 137 135 - 145 mmol/L Potassium, pl 3.6 3.3 - 4.9 mmol/L [facility] Chloride 98 97 - 110 mmol/L [facility] CO2 23 22 - 32 mmol/L [facility] Anion gap 16(H) 2 - 15 mmol/L [facility] BUN 17 6 - 25 mg/dL [facility] Creatinine 4.19(H) 0.60 - 1.10 mg/dL [facility] Glucose 91 70 - 199 mg/dL [facility] Comment: Interpretive Data Fasting glucose >/= 126 [...] 2022. Calcium 9.7 8.5 - 10.3 mg/dL [facility] Blood 03/08/2024 10:1 4 AM BOILER TENDERS SUPERVISOR 03/08/2024 10:15 AM BOILER TENDERS SUPERVISOR us Adalberto Linder MD LAB BLOOD ORDERABLES Final Result [facility] [address] Department [place] [address] * US Hemodialysis Access (02/12/2024 2:27 PM BOILER TENDERS SUPERVISOR) Anatomical Region Laterality Modality Vascular N/A Ultrasound 02/13/2024 2:35 PM BOILER TENDERS SUPERVISOR Impressions 02/13/2024 2:35 PM BOILER TENDERS SUPERVISOR No duplex evidence of obstruction in the AVF. ??Adequate flow for dialysis. Electronically signed by: Adalberto Linder MD Narrative 02/13/2024 2:35 PM BOILER TENDERS SUPERVISOR AVF DATE: ??02/12/2024 1:15 PM EXAM: ??Duplex [...] Hepatitis panel, acute Blood (01/31/2024 10:35 AM BOILER TENDERS SUPERVISOR) Hep A IgM Nonreactive Nonreactive Comment: Interpretive Data: If Hep A IgM Ab is reported as Equivocal, a new sample should be drawn in two weeks for testing. Current interpretive data was last revised on 19. Hep B core IgM Nonreactive Nonreactive [facility] Comment: Interpretive Data If HepB Core IgM Ab is reported as Equivocal, a new sample should be drawn in two weeks for testing. Current interpretive data was last revised on 19. Hep C Ab Nonreactive Nonreactive [facility] Comment: Interpretive Data Nonreactive: Antibodies to HCV [...] last revised on 2019. HepBsAg Nonreactive Nonreactive [facility] Blood 01/31/2024 10:3 5 AM BOILER TENDERS SUPERVISOR 01/31/2024 10:36 AM BOILER TENDERS SUPERVISOR us Connie Greenberg MD LAB MICROBIOLOGY - GENE RAL ORDERABLES Final Result [facility] [address] Department [place] [address] * IR Tunneled Line Placement > 5 Years (01/31/2024 8:29 AM BOILER TENDERS SUPERVISOR) Anatomical Region Laterality Modality Body N/A X-Ray Angiograph y 01/31/2024 4:05 PM BOILER TENDERS SUPERVISOR Impressions 01/31/2024 4:05 PM BOILER TENDERS SUPERVISOR Successful tunneled 24 cm Duraflow catheter (19 cm cuff to tip) placement via the right external jugular vein. PLAN: ??The catheter is ready for immediate use. ?? When treatment is completed, removal can be scheduled by calling: [facility] - [phone] [facility] - [phone] [facility] - [phone] Electronically signed by: Amanda Rehman PA-C Narrative 01/31/2024 4:05 PM BOILER TENDERS SUPERVISOR EXAMINATION: ??TUNNELED CENTRAL VENOUS CATHETER PLACEMENT USING [...] was obtained. ??Prior to beginning the procedure, Carter Protocol was used to confirm the patient's [...] ??No complications are seen. Procedure Note Amanda Rehman PA - 12/11/2024 EXAMINATION: TUNNELED CENTRAL VENOUS CATHETER PLACEMENT USING [...] was obtained. Prior to beginning the procedure, Carter Protocol was used to confirm the patient's [...] completed, removal can be scheduled by calling: [facility] - [phone] [facility] - [phone] [facility] - [phone] Electronically signed by: Amanda Rehman PA-C us Connie Greenberg MD IMG IR PROCEDURES Final Result * (ABNORMAL) eGFR (01/31/2024 5:33 AM BOILER TENDERS SUPERVISOR) eGFR 4(L) >=60 mL/min/1. 73 m2 Comment: [...] last reviewed 2020. Blood 01/31/2024 5:33 AM BOILER TENDERS SUPERVISOR 01/31/2024 7:05 AM BOILER TENDERS SUPERVISOR us Adalberto Linder MD LAB BLOOD ORDERABLES Final Result [facility] [address] Department [place] [address] * (ABNORMAL) CBC without differential (01/31/2024 5:33 AM BOILER TENDERS SUPERVISOR) [facility] WBC 10.2(H) 3.8 - 9.9 K/cumm Hgb 9.5(L) 11.9 - 15.5 g/dL [facility] Hct 30.4(L) 35.6 - 45.5 % [facility] Plt 264 150 - 400 K/cumm [facility] MPV 10.1 9.1 - 12.3 fL [facility] RBC 3.33(L) 3.90 - 5.20 M/cumm [facility] MCV 91.3 81.3 - 96.4 fL [facility] MCH 28.5 27.1 - 33.3 pg [facility] MCHC 31.3(L) 32.3 - 35.7 g/dL [facility] RDW CV 14.8 11.1 - 14.9 % [facility] RDW SD 49.1(H) 35.7 - 48.1 fL [facility] NRBC abs 0.00 0.00 - 0.01 K/cumm [facility] Blood 01/31/2024 5:33 AM BOILER TENDERS SUPERVISOR 01/31/2024 7:06 AM BOILER TENDERS SUPERVISOR Adalberto Linder MD LAB BLOOD ORDERABLES Final Result [facility] [address] Department [place] [address] * (ABNORMAL) Renal function panel (01/31/2024 5:33 AM BOILER TENDERS SUPERVISOR) [facility] Sodium 142 135 - 145 mmol/L Potassium, pl 5.0(H) 3.3 - 4.9 mmol/L [facility] Chloride 99 97 - 110 mmol/L [facility] CO2 22 22 - 32 mmol/L [facility] Anion gap 21(H) 2 - 15 mmol/L [facility] BUN 73(H) 6 - 25 mg/dL [facility] Creatinine 9.88(H) 0.60 - 1.10 mg/dL [facility] Glucose 68(L) 70 - 199 mg/dL [facility] Comment: Interpretive Data Fasting glucose >/= 126 [...] 2022. Calcium 9.2 8.5 - 10.3 mg/dL [facility] Phosphorus, pl 7.3(H) 2.3 - 4.5 mg/dL [facility] Albumin 3.8 3.5 - 5.0 g/dL [facility] Blood 01/31/2024 5:33 AM BOILER TENDERS SUPERVISOR 01/31/2024 7:05 AM BOILER TENDERS SUPERVISOR us Adalberto Linder MD LAB BLOOD ORDERABLES Final Result [facility] [address] Department [place] [address] * (ABNORMAL) eGFR (01/30/2024 8:09 PM BOILER TENDERS SUPERVISOR) eGFR 4(L) >=60 mL/min/1. 73 m2 Comment: [...] last reviewed 2020. Blood 01/30/2024 8:09 PM BOILER TENDERS SUPERVISOR 01/30/2024 8:27 PM BOILER TENDERS SUPERVISOR us Connie Greenberg MD LAB BLOOD ORDERABLES Fi nal Result [facility] [address] Department [place] [address] * (ABNORMAL) Differential, auto (01/30/2024 8:09 PM BOILER TENDERS SUPERVISOR) Neutrophil abs 6.1 1.5 - 6.5 K/cumm Imm gran abs 0.2(H) 0.0 - 0.1 K/cumm [facility] Lymphocyte abs 2.7 0.8 - 3.3 K/cumm [facility] Monocyte abs 0.8 0.2 - 0.8 K/cumm [facility] Eosinophil abs 0.0 0.0 - 0.5 K/cumm [facility] Basophil abs 0.0 0.0 - 0.1 K/cumm [facility] Neutrophil pct 62.3 % [facility] Comment: Interpretive Data Percent cell count reference ranges are not reported, since discordance with absolute values may lead to misinterpretation of CBC data. Current Interpretive Data was last revised on 2017. Imm gran pct 2.0 % [facility] Comment: Interpretive Data Percent cell count reference ranges are not reported, since discordance with absolute values may lead to misinterpretation of CBC data. Current Interpretive Data was last revised on 2017. Lymphocyte pct 27.4 % [facility] Comment: Interpretive Data Percent cell count reference ranges are not reported, since discordance with absolute values may lead to misinterpretation of CBC data. Current Interpretive Data was last revised on 2017. Monocyte pct 7.8 % [facility] Comment: Interpretive Data Percent cell count reference ranges are not reported, since discordance with absolute values may lead to misinterpretation of CBC data. Current Interpretive Data was last revised on 2017. Eosinophil pct 0.1 % [facility] Comment: Interpretive Data Percent cell count reference ranges are not reported, since discordance with absolute values may lead to misinterpretation of CBC data. Current Interpretive Data was last revised on 2017. Basophil pct 0.4 % [facility] Comment: Interpretive Data Percent cell count reference ranges are not reported, since discordance with absolute values may lead to misinterpretation of CBC data. Current Interpretive Data was last revised on 2017. Blood 01/30/2024 8:09 PM BOILER TENDERS SUPERVISOR 01/30/2024 8:27 PM BOILER TENDERS SUPERVISOR us Connie Greenberg MD LAB BLOOD ORDERABLES [facility] Result [facility] [address] Department [place] [address] * (ABNORMAL) CBC with auto differential (01/30/2024 8:09 PM BOILER TENDERS SUPERVISOR) WBC 9.8 3.8 - 9.9 K/cumm Hgb 10.2(L) 11.9 - 15.5 g/dL [facility] Hct 32.9(L) 35.6 - 45.5 % [facility] Plt 254 150 - 400 K/cumm [facility] MPV 9.7 9.1 - 12.3 fL [facility] RBC 3.59(L) 3.90 - 5.20 M/cumm [facility] MCV 91.6 81.3 - 96.4 fL [facility] MCH 28.4 27.1 - 33.3 pg [facility] MCHC 31.0(L) 32.3 - 35.7 g/dL [facility] RDW CV 14.6 11.1 - 14.9 % [facility] RDW SD 48.5(H) 35.7 - 48.1 fL [facility] NRBC abs 0.00 0.00 - 0.01 K/cumm [facility] Blood 01/30/2024 8:09 PM BOILER TENDERS SUPERVISOR 01/30/2024 8:27 PM BOILER TENDERS SUPERVISOR Connie Greenberg MD LAB BLOOD ORDERABLES Fi nal Result Performing Organization Address [facility] Co de Phone Number [facility] [address] [email or web address] [address] * Protime-INR (01/30/2024 8:09 PM BOILER TENDERS SUPERVISOR) PT 11.6 9.7 - 13.0 sec INR 1.07 0.90 - 1.20 [facility] Comment: Interpretive data Oral anticoagulant therapeutic ranges: Venous thromboembolism prophylaxis or treatment: 2.0-3.0 CARDIOLOGY Standard range: 2.0-3.0 High-intensity range: 2.5-3.5 Refer to indication-specific guidelines for appropriate target ranges for prosthetic heart valve replacement. Current interpretive data was last revised on 2019. Blood 01/30/2024 8:09 PM BOILER TENDERS SUPERVISOR 01/30/2024 8:27 PM BOILER TENDERS SUPERVISOR Connie Greenberg MD LAB BLOOD ORDERABLES Fi nal Result Performing Organization Address City/[facility]/ZIP Co de Phone Number [facility] [address] [email or web address] [place], [place] [id number] * (ABNORMAL) Phosphorus (01/30/2024 8:09 PM BOILER TENDERS SUPERVISOR) Phosphorus, pl 6.8(H) 2.3 - 4.5 mg/dL Blood 01/30/2024 8:09 PM BOILER TENDERS SUPERVISOR 01/30/2024 8:27 PM BOILER TENDERS SUPERVISOR us Connie Greenberg MD LAB BLOOD ORDERABLES Fi nal Result [facility] [address] Department [place] [address] * (ABNORMAL) Comprehensive metabolic panel (01/30/2024 8:09 PM BOILER TENDERS SUPERVISOR) Sodium 140 135 - 145 mmol/L Potassium, pl 4.8 3.3 - 4.9 mmol/L [facility] Chloride 101 97 - 110 mmol/L [facility] CO2 21(L) 22 - 32 mmol/L [facility] Anion gap 18(H) 2 - 15 mmol/L [facility] [facility] BUN 65(H) 6 - 25 mg/dL [facility] Creatinine 9.06(H) 0.60 - 1.10 mg/dL [facility] Glucose 90 70 - 199 mg/dL [facility] Comment: Interpretive Data Fasting glucose >/= 126 [...] 2022. Calcium 9.5 8.5 - 10.3 mg/dL [facility] Bilirubin, total 0.3 0.1 - 1.2 mg/dL [facility] Protein, pl 7.2 6.5 - 8.5 g/dL [facility] Albumin 3.8 3.5 - 5.0 g/dL [facility] Alk phos 79 40 - 130 Units/L [facility] ALT 9 7 - 45 Units/L [facility] AST 14 10 - 45 Units/L [facility] Blood 01/30/2024 8:09 PM BOILER TENDERS SUPERVISOR 01/30/2024 8:27 PM BOILER TENDERS SUPERVISOR us Connie Greenberg MD LAB BLOOD ORDERABLES Fi nal Result [facility] [address] Department [place] [address] * Surgical pathology (01/30/2024 5:00 PM BOILER TENDERS SUPERVISOR) Tissue (Artery) 01/30/2024 5 :00 PM BOILER TENDERS SUPERVISOR Comment:Placed in formalin a t the end of case Narrative PATHOLOGY [facility] - 02/01/2024 10:58 AM BOILER TENDERS SUPERVISOR [place] [id number] [place], [place] ??[address] Tele: ?? Dasha Dempsey MD - Tap Out Operator Note to Patients: This report may contain [...] PATHOLOGY REPORT Patient Name: ??MOY TOBIN Address: ??[address] [place] [address] ??61 Gender: ??F : ??1955 (Age: 68) Service: ??Surgery Location: ??[id number], ?? Hospital #: ??[id number] Patient Type: ??[facility] Accession #: ? [id number] Taken: ? 01/30/2024 Received ? 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 ??Specimen is sectioned The specimen is entirely submitted in cassette labeled A1. ?? JAP,CUH MICROSCOPIC DESCRIPTION: Microscopic examination supports the above captioned diagnosis. Clerical Data Follows A; [id number] REPORT IMAGES AND/OR SCANNED DOCUMENTS ONLY VIEWABLE IN PDF FORMAT The immunohistochemical test(s) cited in this report, if any, was developed and its performance characteristics determined by [facility] Pathology Department. ??It has not been cleared or approved by the U.S. Food and Drug Administration. ??The FDA has determined that such clearance or approval is not necessary. ??This test is used for clinical purposes. ??It should not be regarded as investigational or for research. ??[facility] Laboratory is certified under the Clinical Laboratory [...] part or completely in the following laboratories: [facility], [facility], [place], [place] [address] [place] [address], [address] [place] [address], [place] [address]. Adalberto Linder MD LAB PATHOLOGY ORDERABLES Fi nal Result [facility]Y [facility] Laboratory Receiving [address] [place] [address] * MT AN PROCEDURE PLACEHOLDER (01/30/2024 2:06 PM BOILER TENDERS SUPERVISOR) Narrative Librado Rodriges DO - 01/30/2024 2:06 PM BOILER TENDERS SUPERVISOR Librado Rodriges DO ? 01/30/2024 ??2:06 PM [...] Final Result * Potassium (01/30/2024 12:50 PM BOILER TENDERS SUPERVISOR) Potassium, pl 4.7 3.3 - 4.9 mmol/L Blood 01/30/2024 12:5 0 PM BOILER TENDERS SUPERVISOR 01/30/2024 12:54 PM BOILER TENDERS SUPERVISOR Librado Rodriges DO LAB BLOOD ORDERABLES Final Result Performing Organization Address [facility]/ZIP Co de Phone Number [facility] [address] [email or web address] [address] * (ABNORMAL) eGFR (01/30/2024 11:51 AM BOILER TENDERS SUPERVISOR) eGFR 5(L) >=60 mL/min/1. 73 m2 Comment: [...] reviewed 2020. Blood 01/30/2024 11:5 1 AM BOILER TENDERS SUPERVISOR 01/30/2024 11:51 AM BOILER TENDERS SUPERVISOR us Adalberto Linder MD LAB BLOOD ORDERABLES Final Result Performing Organization Address [facility]/ZIP Co de Phone Number [facility] [address] Department [employer] [place], [place] [id number] * (ABNORMAL) Basic metabolic panel (01/30/2024 11:51 AM BOILER TENDERS SUPERVISOR) Sodium 139 135 - 145 mmol/L Potassium, pl 7.1(C) 3.3 - 4.9 mmol/L [facility] Comment: Hemolyzed; potassium value may be falsely elevated by as much as 0.6 - 1.0 mmol/L. Suggest redraw and reanalysis Critical result called to and read back by jacy fleming on 01/30/2024 ??12:29 to [id number] Chloride 97 97 - 110 mmol/L [facility] CO2 22 22 - 32 mmol/L [facility] Anion gap 20(H) 2 - 15 mmol/L [facility] BUN 60(H) 6 - 25 mg/dL [facility] Creatinine 8.31(H) 0.60 - 1.10 mg/dL [facility] Glucose 87 70 - 199 mg/dL [facility] Comment: Interpretive Data Fasting glucose >/= 126 [...] 2022. Calcium 9.7 8.5 - 10.3 mg/dL [facility] Blood 01/30/2024 11:5 1 AM BOILER TENDERS SUPERVISOR 01/30/2024 11:51 AM BOILER TENDERS SUPERVISOR us Adalberto Linder MD LAB BLOOD ORDERABLES Final Result [facility] [address] Department [place] [address] * US Vein Mapping Fistula Access, Bilateral (01/25/2024 1:50 PM BOILER TENDERS SUPERVISOR) Anatomical Region Laterality Modality Vascular Bilateral Ultrasound 01/25/2024 4:36 PM BOILER TENDERS SUPERVISOR Impressions 01/25/2024 4:36 PM BOILER TENDERS SUPERVISOR Patent basilic and cephalic veins with the aforementioned measurements. Electronically signed by: Patti Blanchard MD Narrative 01/25/2024 4:36 PM BOILER TENDERS SUPERVISOR Vein Mapping UE DATE: 01/25/2024 12:30 PM [...] Patti Blanchard MD us Adalberto Linder MD IM US PROCEDURES Final Res ult from Last 3 Months Insurance MEDICARE SUPPLEMENT MEDICARE MEDICARE [facility] MEDICARE SUPPLEMENT MEDICARE [facility] MEDICARE SUPPLEMENT Advance Directives For more information, please contact: [phone] * Full Code (Latest Code Status on File) Date Activated Date Inactivated Comments 01/30/2024 8:33 PM 02/01/2024 11:09 PM Care Teams Cash Control Specialist Relationship Specialty Start Date End Date Federico Branham Jr., MD [address] [place] [address] PCP - General Family Medicine 01/30/24 Adalberto Linder MD [address] [address] Consulting Physician Surgery 01/31/24 Jc Moreau MD [address] [place] [address] Referring Physician Nephrology 03/07/24 Carmen Chavez, RN [address] [facility] [address] [place] [address] Car Wash Attendant Automatic 03/11/24
--- OUTSIDE RECORDS SUMMARY | 2024-03-25 09:11 | XMS_ITS | CONTINUITY OF CARE DOCUMENT ---
Author Name ana perez Address Unknown Organization [facility] Address [address] [place] [address] Phone [phone] Care Team Providers Care Sports Manager Name Role Phone Hank FARRELL, Luis M Unavailable [phone] MENDOZA FARRELL, JAYME K Unavailable MENDOZA FARRELL, JAYME K Unavailable PROBLEMS Condition Status Date Provider Notes CHF due to left ventricular systolic dysfunction active Luis M Mckinney MD Rotator cuff tear, right active Ryland rae MD Atrial fib paroxysmal active Ryland reyes MD Anticoagulation active Ryland Alves MD RF ablation for SVT/AF active Ryland jay MD Restrictive lung disease active Ryland rae MD Renal disease 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 typical active Ryland rae MD ENCOUNTERS Date Type Provider Location Encounter Diag nosis - In-person encounter Office Visit [facility] - In-person encounter Office Visit Luis M [facility] CHF due to left ventricular systolic dysfunction - In-person encounter Office Visit Ryland [facility] Rotator cuff tear, right - In-person encounter Office Visit Peter Mikolajczak MD [facility] Atrial fib paroxysmal - In-person encounter Office Visit Ryland [facility] - In-person encounter Office Visit R[facility] - In-person encounter Office Visit Ryland [facility] - In-person encounter Office Visit Ryland Alves MD [facility] Atrial flutter ? typicalRenal disease end-stage on HDRestrictive lung diseaseRF ablation for SVT/AFAnticoagulation VITAL SIGNS Date Observation Value Provider Body Mass Index (Ratio) 33.83 kg/m2 Luis M Mckinney MD blood pressure, diastolic 60 mm[Hg] [facility] blood pressure, systolic 108 mm[Hg] Shauna jacksonn [place] Inhaled O2 2 L/min [facility] oxygen saturation, oximetry 98 % [facility] pulse rate 80 /min [facility] respiratory rate E&M 16 /min [facility] weight E&M 185 [lb_av] [facility] height E&M 62 [in_i] [facility] Body Mass Index (Ratio) 38.77 kg/m2 Luis M Mckinney MD blood pressure, diastolic 70 mm[Hg] [facility] blood pressure, systolic 118 mm[Hg] Shauna [facility] oxygen saturation, oximetry 96 % [facility] respiratory rate E&M 16 /min [facility] pulse rate 86 /min [facility] weight E&M 212 [lb_av] [facility] height E&M 62 [in_i] [facility] Body Mass Index (Ratio) 36.21 kg/m2 Mert Alves MD blood pressure, diastolic 72 mm[Hg] [facility] blood pressure, systolic 110 mm[Hg] Shauna carballo Resendez oxygen saturation, oximetry 95 % Ranjith Resendez respiratory rate E&M 16 /min [place] Resendez pulse rate 85 /min Ranjith Resendez weight E&M 198 [lb_av] Ranjith Resendez height E&M 62 [in_i] [place] Res[facility] Body Mass Index (Ratio) 36.21 kg/m2 Mert Alves MD blood pressure, diastolic 60 mm[Hg] astity Adama blood pressure, systolic 104 mm[Hg] Le stity Adama respiratory rate E&M 16 /min Chastit y Adama weight E&M 198 [lb_av] [facility] pulse rate 87 /min [facility], oximetry 96 % [facility] height E&M 62 [in_i] [facility] Body Mass Index (Ratio) 36.21 kg/m2 Mert Alves MD blood pressure, diastolic 68 mm[Hg] Delores Campbell blood pressure, systolic 112 mm[Hg] Nevin Campbell pulse rate 85 /min Jessica Campbell oxygen saturation, oximetry 98 % Jessica Campbell respiratory rate E&M 17 /min Jessica Campbell weight E&M 198 [lb_av] Jessica Campbell height E&M 62 [in_i] Jessica Campbell Body Mass Index (Ratio) 34.56 kg/m2 Mert Alves MD blood pressure, diastolic 80 mm[Hg] Te onia Clementina blood pressure, systolic 130 mm[Hg] Brock saturnino Mcrae oxygen saturation, oximetry 97 % Jed Mcrae respiratory rate E&M 16 /min Teonia Clementina pulse rate 92 /min Jed Haronn weight E&M 189 [lb_av] Jed Haronn height E&M 62 [in_i] Jed Mcrae Body Mass Index (Ratio) 33.47 kg/m2 Mert Alves MD blood pressure, diastolic 58 mm[Hg] Delores huertalesia Campbell blood pressure, systolic 102 mm[Hg] Nevin don Adrian blood pressure, resting No Mitchell graf Adrian pulse rate 76 /min Jessicalesia Campbell oxygen saturation, oximetry 98 % Jessicalesia Campbell respiratory rate E&M 17 /min Jessicalesia Campbell weight E&M 183 [lb_av] Jessicalesia Campbell height E&M 62 [in_i] Jessica Campbell ALLERGIES Allergy Name Onset Date Reaction Criticality Status DIAVAN lost voice lost voice High Criticali ty active LISINOPRIL lost voice lost voice High Criticali ty active DARVON dizzey High Criticality active RESULTS Date Observation Value Provider Reference Range Interpretation Location 9 coagulation managed by Keya Olivia RN 9 international normalized ratio (INR) 1.5 Fiordaliza Nora Normal 9 prothrombin time (patient) 18.2 s Fiordaliza Nora 2 coagulation managed by Keya Olivia RN 2 international normalized ratio (INR) 1.7 Fiordaliza Nora Normal 2 prothrombin time (patient) 20.7 s Fiordaliza Nora 5 coagulation managed by Keya Olivia RN Keya Olivia RN 5 international normalized ratio (INR) 4.1 Fiordaliza Nora Normal 5 prothrombin time (patient) 49.6 s Fiordaliza Nora 2 international normalized ratio (INR) 1.3 Teonia Clementina Normal 2 prothrombin time (patient) 15.4 s Teonia Clementina 4 coagulation managed by Oralia Pete RN 4 international normalized ratio (INR) 1.3 Griselda O'Remington Normal 4 prothrombin time (patient) 15.3 s Griselda O'Remington 4 coagulation managed by Keya Olivia RN 4 international normalized ratio (INR) 1.4 Keya Olivia RN Normal 4 prothrombin time (patient) 17.3 s Keya Olivia RN 8 international normalized ratio (INR) 0.9 Keya Solano RN Low 8 prothrombin time (patient) 10.3 s Keya Solano RN HISTORY OF MEDICATION USE Medication Status Instructions Dates Provider Indications Com ments ENTRESTO (SACUBITRIL/VALS SHILPI) 24MG/26MG active Take 1 tablet 2 times daily. Luis M Mckinney MD TOPROL XL 50 MG ORAL TABLET EXTENDED RELEASE 24 HOUR active ONE TAB DAILY Luis M Mckinney MD TYLENOL WITH CODEINE #3 300-30 MG ORAL TABLET active Take one tablet every 6 hours for pain. Ryland Alves MD METOPROLOL TARTRATE 25 MG ORAL TABLET active Take one half tablet every 12 hours. Do not take metoprolol on the morning prior to dialysis. Ryland Alves MD COUMADIN 3 MG ORAL TABLET completed HOLD - Ryland Alves MD COUMADIN 2 MG ORAL TABLET completed hold - Ryland Alves MD COUMADIN 5 MG ORAL TABLET completed Take 1 1/2 tab ( 7.5 mg ) po daily with your evening meal - Ryland Alves MD COUMADIN 1 MG ORAL TABLET completed one tab daily w/dinner w/your 2.5mg tablet to = your 3.5 mg daily dose - Oralia Pete RN COUMADIN 2.5 MG ORAL TABLET completed Take 1 tab po daily with your evening meal along with 1 of your 1 mg tabs to = your 3.5 mg daily dose - Oralia Pete RN ELIQUIS 2.5 MG ORAL TABLET completed one tablet twice daily - Keya Olivia RN ROSUVASTATIN CALCIUM 10 MG ORAL TABLET active 20 mg by mouth daily Jessica Campbell RENAL 1 MG ORAL CAPSULE active 1 tab daily Jessica Campbell QVAR 40 MCG/ACT INHALATION AEROSOL SOLUTION active 2 puffs Jessica Campbell MIRALAX ORAL POWDER active 17 g by mouth 1x daily Jessica Campbell ONDANSETRON HCL 4 MG ORAL TABLET active take every 8 hours fo rnausea and vomitting Jessica Campbell OMEPRAZOLE 20 MG ORAL TABLET DELAYED RELEASE active 2x daily before breakfastt and supper Jessica Campbell SINGULAIR 10 MG ORAL TABLET active take at bed time, 1 tab Jessica Campbell SYNTHROID 25 MCG ORAL TABLET active 1 tab before breakfest Jessica Campbell FOSRENOL 500 MG ORAL TABLET CHEWABLE active 1 tab, 3x daily Jessica Campbell VOLTAREN 1 % TRANSDERMAL GEL active apply to affected area 4 x daily Jessica Campbell B-12 2500 MCG ORAL TABLET active dissolve under tongue daily Jessica Campbell TUMS 500 MG ORAL TABLET CHEWABLE active 1 tab every 24 hours Jessica Campbell CALCITRIOL 0.5 MCG ORAL CAPSULE active 2 caps daily Jessica Campbell BISACODYL EC 5 MG ORAL TABLET DELAYED RELEASE active 1 tab prn Jessica Campbell ASPIRIN 81 MG ORAL TABLET CHEWABLE active 1 tab daily Jessica Campbell ACETAMINOPHEN 325 MG ORAL TABLET active prn for pain Jessica Campbell MIDODRINE HCL 5 MG ORAL TABLET active 1 tab by mouth, 3x daily before meals Jessica Campbell OXYCODONE-ACETAM INOPHEN 5-325 MG ORAL TABLET completed 1 tab by mouth every 6 hours for pain - Ryland Alves MD LEXAPRO 10 MG ORAL TABLET active 1 tab by mouth daily Jessica Campbell ELIQUIS 2.5 MG ORAL TABLET completed One tablet every 12 hours. - Keya Olivia RN ALPRAZOLAM 0.25 MG ORAL TABLET active 1 tab by mouth m,w,mon. Jessica Campbell ELIQUIS 2.5 MG ORAL TABLET [id number] one tablet twice daily - Jessica Campbell to last until hospital f/u SOCIAL HISTORY Date Observation Value Provider social history reviewed E&M reviewed - no changes required Luis M Mckinney MD smoking status Never smoker Ranjith jane social history E&M S moking History: P atkelsie has never smoked. Luis M Mckinney MD social history reviewed E&M reviewed - no changes required Luis M Mckinney MD smoking status Never smoker Ranjith Long jane smoking status Never smoker Ranjith jane smoking status Never smoker Cindi neal smoking status Never smoker Jessica Campbell smoking status Never smoker Jessica Campbell FAMILY HISTORY Family Member Condition Father Family History of Co shakir Cancer: Mother Family History of Co ngestive Heart Failure: Mother Family History of Di abetes: Mother Family History Coron dillon Heart Disease female < 65: INSURANCE PROVIDERS Payer name Policy type / Coverage type Bruce red democrat [place] PART B Medicare [id number] HEALTHCARE AND FAMILY SERVICES Medicaid 0 [id number] [facility]ly [facility] [id number] ADVANCE DIRECTIVES Name Date LIVING WILL ON FILE TREATMENT PLAN Date Name Performer Cardiology: O n dialysis. Being evaluated for renal transplant at [facility] Luis M Mckinney MD Cardiology: I n sinus rhythm. Is S/P ablation. EP following Luis M Mckinney MD Cardiology: N ow on O2. Luis M Mckinney MD Cardiology: O n toprol XL and entresto. Closely monitor B.P for hypotension Luis M Mckniney MD Cardiology: I n sinus rhythm. Is S/P ablation. EP following Luis M Mckinney MD Cardiology: O n dialysis. Being evaluated for renal transplant at [facility] Luis M Mckinney MD Cardiology: N ow on O2. Luis M Mckinney MD Cardiology: O n toprol XL and entresto. Luis M Mckinney MD Cardiology:On toprol XL. Entrest o added Luis M Mckinney MD Cardiology:On dialys is. Being evaluated for renal transplant at [facility] Luis M Mckinney MD Cardiology:In sinus rhythm. Is S /P ablation. EP following Luis M Mckinney MD Date Name PROTHROMBIN TIME WIT H INR HISTORY OF PROCEDURES Procedure Date Procedure Name Provider Procedure Notes S tatus EKG Ryland Alves MD comp leted SNOMED-CT: 059262070299700 Current Medications Documented Ryland Alves MD completed EKG Ryland Alves MD comp leted SNOMED-CT: 750610055656802 Current Medications Documented Ryland Alves MD completed Mobile Cardiac Telem etry - Tech Ryland Alves MD completed Mobile Cardiac Telem etry - Prof Ryland Alves MD completed EKG Ryland Alves MD comp leted SNOMED-CT: 287973229512798 Current Medications Documented Ryland Alves MD completed Protravinder Alves MD comp leted Protravinder Alves MD comp leted Protravinder Alves MD comp leted SNOMED-CT: 975059926926007 Current Medications Documented Ryland Alves MD completed EKG Ryland Alves MD comp leted Protravinder Alves MD comp leted Protravinder Alves MD comp leted EKG Ryland Alves MD comp leted SNOMED-CT: 235409360890962 Current Medications Documented Ryland Alves MD completed
--- OUTSIDE RECORDS SUMMARY | 2024-03-25 09:11 | XMS_ITS ---
Author Organization [facility] Address [address] [place] [address] Care Team Providers Care Pathology Transcriptionist Name Role Phone Farrukh Solorzano MD Unavailable [phone] Keya Reina MD Unavailable Unavailable Osmar Zambrano MD Unavailable Francisco Tobin MD Unavailable [phone] Jc Moreau MD Unavailable [phone] Ryland Alves MD Unavailable Lorene Ly MD Unavailable Care, [facility] Unavailable Carrol Pitts MD, Joseph Theodore Unavailable Carrol Pitts MD, Federico Howe Primary Care Provider Octavia Parry ASSOCIATE MARKETING MANAGER-CHECK WRITING MACHINE OPERATOR Unavailable [phone] Transplant Episode Kidney Candidate [facility] ([facility], [place]) - [facility] Referred on 01/12/2011 Marked as Ineligible on 01/17/2011 Reason: Weight Issues Kidney CoordinatorKathy Younger RN Phone: N/A Fax: N/A Email: N/A Scores Score Value Updated Exceptions/Reas ons CPRA Not available EPTS (Calc) 100 03/25/2024 [place] Organ Diagnosis Organ Primary Contributory Kidney Diabetes Mellitus - Type II Care Team Name Role Phone Fax Email Kathy Younger RN Kidney Coordinator N/A N/A N/A Jc Moreau MD Referring Physician N/A N/A N/A Events Pre-Transplant Referred: 01/12/2011 Dialysis History Dialysis History Start End Type Comments Center 09/23/2009 [facility] Information Center Phone Fax Address [facility] [phone] [address] [facility] [address]
--- OUTSIDE RECORDS SUMMARY | 2024-03-25 09:11 | XMS_ITS | Encounter Summary ---
Author Organization [facility] Address [address] [place] [address]. [place], [place] [address] [place] [address] Care Team Providers Care Night Nurse Name Role Phone None, Provider MD Primary Care Provider Unavaila ble Reason for Referral * Surgical (Routine) - Closed Specialty Diagnoses / Procedures Referred By Lee Ann lund Referred To Contact Procedures Case request operating room: INJECTION EPIDURAL LUMBAR INTERLAMINAR L2-3 Mona Valencia APNP Phone: tel: fax: Referral ID Status Reason Start Date Expiration Date Visits Re quested Visits Authorized [id number] Closed 09/27/2021 09/27/2022 1 1 Encounter Details Date Type Department Care Team (Late st Contact Info) Description 09/27/2021 Prep for Procedure [facility] [place] [address] [id number] Mona Valencia APNP [address] [place] [id number] Social History Tobacco Use Types Packs/Day Years Used Date Smoking Tobacco: Never Smokeless Tobacco: Never Alcohol Use Standard Drinks/Week Comments Not Currently 0 (1 standard drink = 0.6 oz pur e alcohol) Comments No Sex and Gender Information Value Date Recorded Sex Assigned at Not on file Legal Sex Female 2:53 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 No / Unsure 09/27/2021 1:43 PM CDT documented as of this encounter Plan of Treatment Scheduled Orders Name Type Priority Associated Diagnoses Orde r Schedule Case request operating room: INJECTION EPIDURAL LUMBAR INTERLAMINAR L2-3 Case Request Routine Once for 1 Occurrences starting 09/27/2021 until 09/27/2021 documented as of this encounter Visit Diagnoses Not on filedocumented in this encounter Care Teams Night Nurse Relationship Specialty Start Date End Date None, Provider, PCP - General 10/19/21 documented as of this encounter
--- OUTSIDE RECORDS SUMMARY | 2024-03-25 09:11 | XMS_ITS | Clinical Summary ---
Author Organization [facility] Address [address] [place] [address]. [place], [place] [address] [place] [address] Care Team Providers Care Yarding Supervisor Name Role Phone None, Provider MD Primary Care Provider Unavaila ble Allergies Active Allergy Reactions Criticality Noted Date Comments Lisinopril Anxiety,Blurred vision,Cough,Dizziness,Shakin ess,Shortness of Breath,Tachycardia,Other (see comment) High 11/01/2012 Propoxyphene Blurred vision,Dizzi ness,Eyes Water & Itch,Palpitations,Shakiness,S hortness of Breath,Tachycardia High 09/28/1987 Valsartan Other (see comment) Medium 11/09/2015 Loses her voice Medications albuterol sulfate HFA 108 (90 Base) MCG/ACT inhaler Inhale 2 puffs into the lungs every 6 (six) hours as needed. 05/10/2021 Active atorvastatin (LIPITOR) 20 MG tablet Take 20 mg by mouth nightly at bedtime. at bedtime. 05/31/2021 Active ELIQUIS 2.5 MG tablet Take 2.5 mg by mouth 2 (two) times daily. 07/16/2021 Active B Oaqfyjc-H-Ivrxh Acid (DIALYVITE 800) 0.8 MG Tab Take 1 tablet by mouth daily. 07/28/2021 Active cyclobenzaprine (FLEXERIL) 10 MG tablet TAKE 1/2 TABLET BY MOUTH THREE TIMES DAILY NEEDED FOR MUSCLE SPASMS 05/10/2021 Active digoxin (LANOXIN) 0.125 MG tablet Take 125 mcg by mouth daily. 09/16/2021 Active FLUoxetine (PROZAC) 10 MG capsule Take 10 mg by mouth daily. 08/09/2021 Active gabapentin (NEURONTIN) 100 MG capsule Take 2 capsules by mouth 3 (three) times daily. 09/21/2021 Active lanthanum carbonate (FOSRENOL) 1000 MG Chew Tab CHEW AND SWALLOW 1 TABLET THREE TIMES DAILY WITH MEALS AND 1 TABLET WITH SNACKS 09/19/2021 Active midodrine (PROAMATINE) 10 MG tablet Take 20 mg by mouth 3 (three) times daily. 09/24/2021 Active montelukast (SINGULAIR) 10 MG tablet Take 10 mg by mouth nightly at bedtime. at bedtime. 05/31/2021 Active omeprazole (PRILOSEC) 20 MG capsule Take 20 mg by mouth 2 (two) times daily. 03/02/2021 Active acetaminophen (TYLENOL) 500 MG tablet Take 1-2 tablets by mouth every 8 (eight) hours as needed. 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 Not on file Not on file Last Filed Vital Signs Vital Sign Reading Time Taken Comments Blood Pressure 126/91 10/19/2021 1:09 PM CDT Pulse 90 10/19/2021 1:09 PM CDT Temperature 36.8 ??C (98.2 ??F) 10/19/2021 1 2:34 PM CDT Respiratory Rate 20 10/19/2021 1:09 PM CDT Oxygen Saturation 99% 10/19/2021 1:09 PM CDT Inhaled Oxygen Concentration - - Weight 99.2 kg (218 lb 11.1 oz) 022 12:34 PM CDT Height 158.8 cm (5' 2.5 ) 10/19/2021 12 :34 PM CDT Body Mass Index 39.36 10/19/2021 12:34 PM CDT Plan of Treatment Health Maintenance Due Date Last Done Comments Colorectal Cancer Screening Colonoscopy (10 Years) 1954 Hepatitis C 1972 Mammogram Screening 1994 Annual Medicare Wellness Visit 07/25/2019 Dexa Scan (General) 07/25/2019 COVID-19 Vaccine ( season) 2023 01/08/2021, 04/23/2020, 04/02/2020, Additional history exists Influenza Adult (#1) 2023 12/04/2020, 11/08/2019, 12/24/2018, Additional history exists DTaP, Tdap and Td Vaccines (2 - Td or Tdap) 12/11/2028 12/11/2018 RSV Immunization or 60+ Years (1 - 1-dose 75+ series) 2029 Zoster Vaccines Completed 01/07/2020, 12/11/2018 Pneumococcal Vaccine: 65+ Years Completed 05/10/2021, 07/15/2019, 09/28/2009 Meningococcal B Vaccine Aged Out No l onger eligible based on patient's age to complete this topic Meningococcal Vaccine Aged Out No shakir frank eligible based on patient's age to complete this topic RSV Immunizations Under 20 Months Aged Out No longer eligible based on patient's age to complete this topic Insurance [facility] MEDICARE [facility] Care Teams Yarding Supervisor Relationship Specialty Start Date End Date None, Provider, PCP - General 10/19/21
--- OUTSIDE RECORDS SUMMARY | 2024-03-25 09:11 | XMS_ITS ---
Author Organization [facility] Address [address] [place] [address] Care Team Providers Care Technical Applications Scientist Name Role Phone Farrukh Solorzano MD Unavailable -[phone] Keya Renia MD Unavailable Unavailable Osmar Zambrano MD Unavailable Francisco Tobin MD Unavailable Jc Moreau MD Unavailable Ryland Alves MD Unavailable Lorene Ly MD Unavailable Care, [facility] Unavailable Carrol Pitts MD, Joseph Theodore Unavailable Carrol Pitts MD, Federico Howe Primary Care Provider Octavia Parry SENIOR NET DEVELOPER-ABORIGINAL EDUCATION TEACHER Unavailable [phone] Transplant Episode Kidney Candidate [facility] ([place], [place]) - [facility] Referred on 01/26/2012 Marked as Ineligible on 02/04/2012 Reason: Weight Issues Kidney CoordinatorKathy Younger RN Phone: N/A Fax: N/A Email: N/A Scores Score Value Updated Exceptions/Reas ons CPRA Not available EPTS (Calc) 100 03/25/2024 [place] Organ Diagnosis Organ Primary Contributory Kidney Diabetes Mellitus - Type II Care Team Name Role Phone Fax Email Kathy Younger RN Kidney Coordinator N/A N/A N/A Jc Moreau MD Referring Physician N/A N/A N/A Events Pre-Transplant Referred: 01/26/2012 Dialysis History Dialysis History Start End Type Comments Center 09/23/2009 [facility] Information Center Phone Fax Address [facility] [phone] [address] [facility] [address]
--- OUTSIDE RECORDS SUMMARY | 2024-03-25 09:11 | XMS_ITS | Clinical Summary ---
Author Organization [facility] Address [address] [place] [address] Phone Care Team Providers Care Roofer Metal Name Role Phone Unavailable Primary Care Provider Unavailabl e Medications Medication Sig Dispensed Refills Start Date End Date Status calcium acetate (PHOSLO) 667 MG capsule 2 with meals 03/04/2015 Active hydrALAZINE (APRESOLINE) 10 MG tablet TAKE 1 BY MOUTH EVERY NIGHTAT BEDTIME AND ADDITIONAL 1ON SUN, TUES, THURS, AND SAT MORNING 5 01/29/2012 Active ondansetron (ZOFRAN) 4 MG tablet TAKE 1 BY MOUTH DAILY 1 03/29/2014 Active rosuvastatin (CRESTOR) 40 MG tablet 1 daily 12 04/02/2017 Active ergocalciferol (VITAMIN D2) 89136 units capsule TAKE 1 BY MOUTH EVERY MONTH 12/08/2012 Active amiodarone (PACERONE) 200 MG tablet 1 daily 12 01/13/2015 Active aspirin (ASPIRIN LOW DOSE) 81 MG EC tablet TAKE 1 BY MOUTH DAILY 03/04/2015 Active calcitriol (ROCALTROL) 0.25 MCG capsule 3 daily 12/09/2015 Active levothyroxine (SYNTHROID, LEVOTHROID) 50 MCG tablet 1 daily 04/02/2017 Active aspirin 325 MG EC tablet 1 daily 12 07/08/2015 Active aspirin (ECOTRIN LOW STRENGTH) 81 MG EC tablet 1 daily 12 01/13/2015 Active levothyroxine (SYNTHROID, LEVOTHROID) 25 MCG tablet TAKE 1 BY MOUTH DAILY MONDAY THROUGH MONDAY AND 2 BY MOUTH ON Monday03/29/2014 Active B complex-vitamin C-folic acid (NEPHRO-GIANA) 0.8 MG tablet TAKE 1 BY MOUTH DAILY 02/10/2014 Active calcium acetate (PHOSLO) 667 MG capsule TAKE 1 BY MOUTH 3 TIMES A DAY WITH MEALS 11 06/29/2014 Active cinacalcet (SENSIPAR) 30 MG tablet TAKE 1 BY MOUTH DAILY 11 05/08/2012 Active B complex-vitamin C-folic acid (DIALYVITE) tablet TAKE 1 BY MOUTH DAILY 01/02/2013 Active sevelamer carbonate (RENVELA) 800 MG tablet 3 with each meal and one with snacks 12 11/21/2016 Active calcium acetate (PHOSLO) 667 MG capsule TAKE 2 CAPSULES BY MOUTH WITH EACH MEAL AND 2 CAPSULES BY MOUTH EVERY EVENING 240 capsule 02/07/2021 Active calcium acetate (PHOSLO) 667 MG capsule TAKE 2 CAPSULES BY MOUTH WITH EACH MEAL AND 2 CAPSULES BY MOUTH EVERY EVENING 240 capsule 02/07/2021 Active Eliquis 2.5 MG tablet TAKE 1 TABLET BY MOUTH TWICE DAILY 60 tablet 03/02/2021 Active lanthanum (FOSRENOL) 1000 MG chewable tablet CHEW AND SWALLOW 1 TABLET THREE TIMES DAILY WITH MEALS AND 1 TABLET WITH SNACKS 120 tablet 09/19/2021 Active Active Problems Problem Noted Date Diagnosed Date Other disorder of calcium metabolism 04/24/2017 Renal osteodystrophy 04/24/2017 Anemia in chronic kidney disease 04/24/2017 Paroxysmal atrial fibrillation 04/24/2017 Obesity 04/24/2017 Essential (primary) hypertension 05/17/2012 Type 2 diabetes mellitus without complication End stage renal disease 04/12/2012 Social History Tobacco Use Types Packs/Day Years Used Date Smoking Tobacco: Never Assessed Sex and Gender Information Value Date Recorded Sex Assigned at Not on file Gender Identity Not on file Sexual Orientation Not on file Last Filed Vital Signs Vital Sign Reading Time Taken Comments Blood Pressure 156/96 04/23/2018 12:01 AM BUTTON INSPECTOR Pulse - - Temperature - - Respiratory Rate - - Oxygen Saturation - - Inhaled Oxygen Concentration - - Weight 94.5 kg (208 lb 4.8 oz) 04/23/2018 12:01 AM BUTTON INSPECTOR Height 157.5 cm (5' 2 ) 04/23/2018 12:01 AM BUTTON INSPECTOR Body Mass Index 38.1 04/23/2018 12:01 AM BUTTON INSPECTOR Plan of Treatment Health Maintenance Due Date Last Done Comments Pneumococcal PPSV23/PCV13 65 + Years / Low and Medium Risk (1 of 4 - PCV) 07/25/2019 Influenza Vaccine (#1) 2023
--- OUTSIDE RECORDS SUMMARY | 2024-03-25 09:11 | XMS_ITS | Encounter Summary ---
Author Organization [facility] Address [address] [place] [address] Phone Care Team Providers Care Regulatory Administrator Name Role Phone Unavailable Primary Care Provider Unavailabl e Reason for Visit * Reason Comments Med Refill Encounter Details Date Type Department Care Team (Late st Contact Info) Description 12/15/2021 Refill [facility] Nephrology and Hypertension [address] [facility], [address] [facility] [place] [address] Jc Moreau MD [address] [facility], [address] [facility] [place] [address] Social History Tobacco Use Types Packs/Day Years [...]
--- OUTSIDE RECORDS SUMMARY | 2024-03-25 09:11 | XMS_ITS | Encounter Summary ---
Author Organization [facility] Address [address] [place] [address] Care Team Providers Care Coin Collector Name Role Phone Faith Jalloh Unavailable Savanna Auguste RN Unavailable Eden Godoy Unavailable Unavailable Carrol Pitts MD, Federico Howe Primary Care Provider Farrukh Solorzano MD Unavailable -[phone] Keya Reina MD Unavailable Unavailable Osmar Zambrano MD Unavailable Francisco Tobin MD Unavailable Jc Moreau MD Unavailable [phone] Ryland Alves MD Unavailable Lorene Ly MD Unavailable Carrol Pitts MD, Federico Howe Unavailable Care, [facility] Kidney Unavailable [phone] Protzel, Celi E CUSTOMER ENGAGEMENT SPECIALIST Unavailable Bahman Ann MD Unavailable Carrol Pitts MD, Federico Howe Unavailable Bahman Ann MD Unavailable Carrol Pitts MD, Federico Howe Unavailable Celi Carter CUSTOMER ENGAGEMENT SPECIALIST Unavailable [phone] Carrol Pitts MD, Federico Howe Unavailable Ryland Alves MD Unavailable [phone] Piotr Alvarez MD Unavailable Carrol Pitts MD, Federico Howe Unavailable Julee Kang MD Unavailable [phone] Carrol Pitts MD, Federico Howe Unavailable Bahman Ann MD Unavailable Oralia Boone RN Unavailable [phone] Francesco Hong MD Unavailable Zoey Boyle WASTE OIL PUMPER-TEAM PHYSICIAN Unavailable Bahman Ann MD Unavailable Mendy Camacho Unavailable Liss Gooden MD Primary Care Provider [phone] Alycia Holguin RN Unavailable [phone] Kylah Solares Unavailable Carrol Pitts MD, Federico Howe Unavailable Carrol Pitts MD, Federico Howe Unavailable Carrol Pitts MD, Federico Howe Primary Care Provider Octavia Parry WASTE OIL PUMPER-TEAM PHYSICIAN Unavailable Encounter Details Date Type Department Care Team (Late st Contact Info) Description 04/23/2013 [facility] Outpatient Visit [facility] [address] [place] [address] Walter Jorgensen MD [address] [place] [address] Social History Tobacco Use Types Packs/Day Years Used Date Smoking Tobacco: Never Smokeless Tobacco: Never Alcohol Use Standard Drinks/Week Comments No 0 (1 standard drink = 0.6 oz pur e alcohol) Sex and Gender Information Value Date Recorded Sex Assigned at Female 02/14/2020 1:06 PM FISH PEDDLER Gender Identity Female 02/14/2020 1:05 PM FISH PEDDLER Sexual Orientation Straight 02/14/2020 1: 05 PM FISH PEDDLER documented as of this encounter Plan of Treatment Upcoming Encounters Date Type Department Care Team (Late st Contact Info) Description 03/29/2024 2:00 PM FISH PEDDLER Office Visit [address] [phone] Federico Branham Jr., MD [address] [place] [address] 04/11/2024 10:20 AM FISH PEDDLER Office Visit [address] [phone] Federico Branham Jr., MD [address] [place] [address] 04/18/2024 1:00 PM FISH PEDDLER Office Visit [facility] [address] [place] [address] [address] [place] [address] Federico Branham Jr., MD [address] [place] [address] Bahman Ann MD [address] [place] [address] [facility] [address] [place] [phone] 05/27/2024 10:00 AM CDT Office Visit [facility] - Neurology [address] [place] [address], [place] [phone] Celi Bob PA-C [address] [place] [address] [address] [place] [phone] 05/28/2024 11:15 AM CDT Office Visit [facility] - Ophthalmology [address] [place] [phone] Jaylon Marks MD [address] [place] [address] DEPT [place] [phone] 07/16/2024 2:15 PM CDT Office Visit [facility] - Orthopedics [address] [place] [phone] Ryland Fuentes MD [address] [place] [address] 07/30/2024 10:20 AM CDT Office Visit [facility] - Family Medicine [id number] [place] [address] [address] [place] [address] [place] [address] [address] [place] [phone] 08/06/2024 10:20 AM CDT Office Visit [facility] - Podiatry [address] [facility] [address] [place] [address] Devika Rolon DPM [address] [facility] [address] [place] [address] 01/10/2025 10:00 AM FISH PEDDLER Office Visit [facility] - GI [address] [place] [address] [place] [phone] Thais Euceda PA-C [address] [facility] DEPT OF [place] [phone] documented as of this encounter Visit Diagnoses [...] Under Investigation 02/09/2023 02/09/2023 02/09/2023 2:41 PM FISH PEDDLER COVID-19 Under Investigation 10/14/2023 10/14/2023 10/14/2023 11:24 AM CDT COVID-19 Under Investigation 03/16/2024 03/16/2024 03/16/2024 2:43 PM FISH PEDDLER COVID-19 Under Investigation 03/16/2024 03/16/2024 03/16/2024 3:58 PM FISH PEDDLER Influenza A or B 03/16/2024 03/16/2024 03/23/2024 4:33 AM FISH PEDDLER documented as of this encounter Care Teams Coin Collector Relationship Specialty Start Date End Date Federico Branham Jr., MD PCP - General Family Medicine 08/01/18 09/24/23 Federico Branham Jr., MD [address] [place] [address] PCP - Attributed-MSSP 03/23/19 11/20/19 Bahman Ann MD [address] [place] [address] PCP - Attributed-MSSP 11/21/19 0 Federico Branham Jr., MD [address] [place] [address] PCP - Attributed-MSSP 12/22/19 0 Bahman Ann MD [address] [place] [address] PCP - Attributed-MSSP 01/21/20 0 Federico Branham Jr., MD [address] [place] [address] PCP - Attributed-MSSP 02/21/20 10/20/21 Federico Branham Jr., MD [address] [place] [address] PCP - Strive ACO 09/27/21 01/09/22 [place] [address] [phone] PCP - Attributed-MSSP 10/21/21 2 Piotr Alvarez MD [facility] [place] [address] PCP - Strive ACO 01/10/22 03/28/22 Federico Branham Jr., MD [address] [place] [address] PCP - Attributed-MSSP 01/20/22 05/21/23 Julee Kang MD [address] [facility] [address] [place] [address] PCP - Strive ACO 03/29/22 05/20/22 Federico Branham Jr., MD [address] [place] [address] PCP - Strive ACO 05/21/22 08/19/22 Bahman Ann MD [address] [facility] [address] [place] [address] PCP - Strive ACO 08/20/22 12/20/22 Francesco Hong MD [address] [place] [phone] PCP - Strive ACO 12/21/22 08/20/23 Zoey Boyle APRN-TEAM PHYSICIAN [address] [place] [address] PCP - Attributed-MSSP 05/22/23 08/20/23 Bahman Ann MD [address] [facility] [address] [place] [address] PCP - Strive ACO 08/21/23 10/21/23 [place] [address] [phone] PCP - General Family Medicine 09/25/23 12/14/23 Federico Branham Jr., MD [address] [place] [address] PCP - Strive ACO 10/22/23 Federico Branham Jr., MD [address] [place] [address] PCP - Attributed-MSSP 08/21/23 11/20/23 Federico Branham Jr., MD [address] [place] [address] PCP - General Family Medicine 12/15/23 Octavia Parry, WASTE OIL PUMPER-TEAM PHYSICIAN [address] [place] [address] PCP - Attributed-MSSP 11/21/23 Faith Jalloh Nurse TransplantWelder Assistant 03/17/13 03/12/19 Savanna Auguste, JAMESON Nurse Transplant 06/04/13 06/30/16 Eden Godoy Dialysis Liaison 07/01/16 04/10/23 Farrukh Solorzano MD [address] [place] [address] [address] [place] [address] -x7 (Work) Cardiovascular Disease 08/01/18 Keya Reina MD [address] [place] [address] [address] [place] [address] Gastroenterology 08/01/18 Osmar Zambrano MD [address] [place] [address] Otolaryngology 08/01/18 Francisco Tobin MD [address] [place] [phone] Pulmonary Disease 08/01/18 Jc Moreau MD [address] [facility] [address] [place] [address] Nephrology 08/01/18 [place] [address] [facility] [address] [place] [address] Campus Coordinator Cardiac Electrophysiology 09/03/18 [place] [address] [facility] [address] [place] [address] Cardiology 04/25/19 [facility], [facility] Kidney Quality AssociateElectronic Equipment Installer 08/29/19 Celi Carter, [facility] Outpatient Typewriter Repairer Care Management 11/19/19 11/25/19 Celi Carter [facility] Behavioral Health Therapist Care Management 05/13/20 05/19/20 Oralia oBone RN Quality AssociateElectronic Equipment Installer 12/27/22 12/27/22 Mendy Camacoh [address] [facility] [address] [place] [phone] Care Coordination Specialist Care Management 09/21/23 09/21/23 Alycia Holguin RN [address] [place] [address] Quality AssociateElectronic Equipment Installer 10/20/23 10/20/23 Kylah Solares Care Coordination Specialist Care Management 10/25/23 12/01/23 documented as of this encounter
--- OUTSIDE RECORDS SUMMARY | 2024-03-25 09:11 | XMS_ITS | Encounter Summary ---
Author Organization [facility] Address [address] [place] [address] Care Team Providers Care Retail Advertising Executive Name Role Phone Faith Jalloh Unavailable Savanna Auguste RN Unavailable Eden Godoy Unavailable Unavailable Carrol Pitts MD, Federico Howe Primary Care Provider Farrukh Solorzano MD Unavailable [phone] Keya Reina MD Unavailable Unavailable Osmar Zambrano MD Unavailable Francisco Tobin MD Unavailable Jc Moreau MD Unavailable [phone] Ryland Alves MD Unavailable Lorene Ly MD Unavailable Carrol Pitts MD, Federico Howe Unavailable Care, [facility] Unavailable [phone] Protzel, Celi E NEWSPAPER CARRIERS SUPERVISOR Unavailable Bahman Ann MD Unavailable Carrol Pitts MD, Federico Howe Unavailable Bahman Ann MD Unavailable Carrol Pitts MD, Federico Howe Unavailable Celi Carter NEWSPAPER CARRIERS SUPERVISOR Unavailable [phone] Carrol Pitts MD, Federico Howe Unavailable Ryland Alves MD Unavailable [phone] Piotr Alvarez MD Unavailable Carrol Pitts MD, Federico Howe Unavailable Julee Kang MD Unavailable [phone] Carrol Pitts MD, Federico Howe Unavailable Bahman Ann MD Unavailable Oralia Boone RN Unavailable [phone] Francesco Hong MD Unavailable Zoey Boyle BRACELET FORMER-SPECIAL EVENT ASSISTANT Unavailable Bahman Ann MD Unavailable Mendy Camacho Unavailable Liss Gooden MD Primary Care Provider [phone] Alycia Holguin RN Unavailable Kylah Solares Unavailable Carrol Pitts MD, Federico Howe Unavailable Carrol Pitts MD, Federico Howe Unavailable Carrol Pitts MD, Federico Howe Primary Care Provider Octavia Parry BRACELET FORMER-SPECIAL EVENT ASSISTANT Unavailable Encounter Details Date Type Department Care Team (Late st Contact Info) Description 04/23/2013 [facility] Outpatient Visit [facility] [address] [place] [address] Walter Jorgensen MD [address] [place] [address] Social History Tobacco Use Types Packs/Day Years Used Date Smoking Tobacco: Never Smokeless Tobacco: Never Alcohol Use Standard Drinks/Week Comments No 0 (1 standard drink = 0.6 oz pur e alcohol) Sex and Gender Information Value Date Recorded Sex Assigned at Female 02/14/2020 1:06 PM TRUCK OPERATOR Gender Identity Female 02/14/2020 1:05 PM TRUCK OPERATOR Sexual Orientation Straight 02/14/2020 1: 05 PM TRUCK OPERATOR documented as of this encounter Plan of Treatment Upcoming Encounters Date Type Department Care Team (Late st Contact Info) Description 03/29/2024 2:00 PM TRUCK OPERATOR Office Visit [address] [phone] Federico Branham Jr., MD [address] [place] [address] 04/11/2024 10:20 AM TRUCK OPERATOR Office Visit [address] [phone] Federico Branham Jr., MD [address] [place] [address] 04/18/2024 1:00 PM TRUCK OPERATOR Office Visit [facility] [address] [place] [address] [address] [place] [address] Federico Branham Jr., MD [address] [place] [address] Bahman Ann MD [address] [place] [address] [facility] [address] [place] [address] 05/27/2024 10:00 AM CDT Office Visit [facility] - Neurology [address] [place] [address], [place] [phone] Celi Bob PA-C [address] [place] [address] [address] [place] [phone] 05/28/2024 11:15 AM CDT Office Visit [facility] - Ophthalmology [address] [place] [phone] Jaylon Marks MD [address] [place] [address] [place] [address] 07/16/2024 2:15 PM CDT Office Visit [facility] - Orthopedics [address] [place] [phone] Ryland Fuentes MD [address] [place] [address] 07/30/2024 10:20 AM CDT Office Visit [facility] - Family Medicine [id number] [place] [address] [address] [place] [address] [place] [address] [address] [place] [phone] 08/06/2024 10:20 AM CDT Office Visit [facility] - Podiatry [address] [facility] [address] [place] [address] Devika Rolon DPM [address] [facility] [address] [place] [address] 01/10/2025 10:00 AM TRUCK OPERATOR Office Visit [facility] - GI [address] [place] [address] [place] [phone] Thais Euceda PA-C [address] [facility] DEPT [place] [address] documented as of this encounter Visit Diagnoses [...] Under Investigation 02/09/2023 02/09/2023 02/09/2023 2:41 PM TRUCK OPERATOR COVID-19 Under Investigation 10/14/2023 10/14/2023 10/14/2023 11:24 AM CDT COVID-19 Under Investigation 03/16/2024 03/16/2024 03/16/2024 2:43 PM TRUCK OPERATOR COVID-19 Under Investigation 03/16/2024 03/16/2024 03/16/2024 3:58 PM TRUCK OPERATOR Influenza A or B 03/16/2024 03/16/2024 03/23/2024 4:33 AM TRUCK OPERATOR documented as of this encounter Care Teams Retail Advertising Executive Relationship Specialty Start Date End Date Federico Branham Jr., MD PCP - General Family Medicine 08/01/18 09/24/23 Federico Branham Jr., MD [address] [place] [address] PCP - Attributed-MSSP 03/23/19 11/20/19 Bahman Ann MD [address] [place] [address] PCP - Attributed-MSSP 11/21/19 0 Federico Branham Jr., MD [address] [place] [address] PCP - Attributed-MSSP 12/22/19 0 Bahman Ann MD [address] [place] [address] PCP - Attributed-MSSP 01/21/20 0 Federico Branham Jr., MD [address] [place] [address] PCP - Attributed-MSSP 02/21/20 10/20/21 Federico Branham Jr., MD [address] [place] [address] PCP - Strive ACO 09/27/21 01/09/22 [place] [address] [phone] PCP - Attributed-MSSP 10/21/21 2 Piotr Alvarez MD [facility] [place] [address] PCP - Strive ACO 01/10/22 03/28/22 Federico Branham Jr., MD [address] [place] [address] PCP - Attributed-MSSP 01/20/22 05/21/23 Julee Kang MD [address] [place] . [facility] [address] [place] [address] PCP - Strive ACO 03/29/22 05/20/22 Federico Branham Jr., MD [address] [place] [address] PCP - Strive ACO 05/21/22 08/19/22 Bahman Ann MD [address] [facility] 200 [place] [address] PCP - Strive ACO 08/20/22 12/20/22 Francesco Hong MD [address] [place] [phone] PCP - Strive ACO 12/21/22 08/20/23 Zoey Boyle APRN-SPECIAL EVENT ASSISTANT [address] [place] [address] PCP - Attributed-MSSP 05/22/23 08/20/23 Bahman Ann MD [address] [facility] 200 [place] [address] PCP - Strive ACO 08/21/23 10/21/23 [place] [address] [phone] PCP - General Family Medicine 09/25/23 12/14/23 Federico Branham Jr., MD [address] [place] [address] PCP - Strive ACO 10/22/23 Federico Branham Jr., MD [address] [place] [address] PCP - Attributed-MSSP 08/21/23 11/20/23 Federico Branham Jr., MD [address] [place] [address] PCP - General Family Medicine 12/15/23 Octavia Parry, BRACELET FORMER-SPECIAL EVENT ASSISTANT [address] [place] [address] PCP - Attributed-MSSP 11/21/23 Faith Jalloh Sales Operations CoordinatorAging Room Hand 03/17/13 03/12/19 Savanna Auguste, JAMESON Sales Operations Coordinator 06/04/13 06/30/16 Eden Godoy Dialysis Liaison 07/01/16 04/10/23 Farrukh Solorzano MD [address] [place] [address] [address] [place] [address] -x7 (Work) Cardiovascular Disease 08/01/18 Keya Reina MD [address] [place] [address] [address] [place] [address] Gastroenterology 08/01/18 Osmar Zambrano MD [address] [place] [address] Otolaryngology 08/01/18 Francisco Tobin MD [address] [place] [address] Pulmonary Disease 08/01/18 Jc Moreau MD [address] [facility] [address] [place] [address] Nephrology 08/01/18 [place] [address] [facility] [address] [place] [address] Csr Technician Cardiac Electrophysiology 09/03/18 [place] [address] [facility] [address] [place] [address] Cardiology 04/25/19 [facility], [facility] Publishing SpecialistSupport Services Specialist 08/29/19 Celi Carter, [facility] Outpatient Rotary Peel Oven Tender Care Management 11/19/19 11/25/19 Celi Carter [facility] Behavioral Health Therapist Care Management 05/13/20 05/19/20 Oralia Boone RN Publishing SpecialistSupport Services Specialist 12/27/22 12/27/22 Mendy Camacho [address] [facility] [address] [place] [phone] Care Coordination Specialist Care Management 09/21/23 09/21/23 Alycia Holguin RN [address] [place] [address] Publishing SpecialistSupport Services Specialist 10/20/23 10/20/23 Kylah Solares Care Coordination Specialist Care Management 10/25/23 12/01/23 documented as of this encounter
--- OUTSIDE RECORDS SUMMARY | 2024-03-25 09:11 | XMS_ITS | Encounter Summary ---
Author Organization [facility] Address [address] [place] [address] Phone Care Team Providers Care Wireless Architect Name Role Phone Unavailable Primary Care Provider Unavailabl e Reason for Visit * Reason Comments Med Refill Encounter Details Date Type Department Care Team (Late st Contact Info) Description 12/15/2021 Refill [facility] Nephrology and Hypertension [address] [facility], [address] [facility] [place] [address] Jc Moreau MD [address] [facility], [address] [facility] [place] [address] Social History Tobacco Use Types Packs/Day Years [...]
--- OUTSIDE RECORDS SUMMARY | 2024-03-25 09:11 | XMS_ITS | Encounter Summary ---
Author Organization [facility] Address [address] [place] [address] Care Team Providers Care Customer Care Representative Name Role Phone Eden Godoy Donavan Unavailable Unavailable Carrol Pitts MD, Federico Howe Primary Care Provider Farrukh Solorzano MD Unavailable -[phone] Keya Reina MD Unavailable Unavailable Juan ManuelOsmar browne MD Unavailable Francisco Tobin MD Unavailable Jc Moreau MD Unavailable [phone] Ryland Alves MD Unavailable [phone] Lorene Ly MD Unavailable [facility], [facility] Unavailable [phone] Carrol Pitts MD, Joseph Theodore Unavailable Carrol Pitts MD, Joseph Theodore Unavailable Ryland Alves MD Unavailable [phone] Piotr Alvarez MD Unavailable [phone] Carrol Pitts MD, Federico Howe Unavailable Julee Kang MD Unavailable Carrol Pitts MD, Joseph Theodore Unavailable Bahman Ann MD Unavailable [phone] Oralia Boone RN Unavailable [phone] Francesco Hong MD Unavailable Zoey Boyle [facility]ENTER DIRECTOR-BUSINESS MANAGEMENT ANALYST Unavailable [phone] Bahman Ann MD Unavailable [phone] Mendy Camacho Unavailable Liss Gooden MD Primary Care Provider [phone] Alycia Holguin RN Unavailable [phone] Kylah Solares Unavailable [phone] Carrol Pitts MD, Joseph Theodore Unavailable Carrol Pitts MD, Joseph Theodore Unavailable Carrol Pitts MD, Federico Howe Primary Care Provider Octavia Parry [facility] CENTER DIRECTOR-BUSINESS MANAGEMENT ANALYST Unavailable [phone] Encounter Details Date Type Department Care Team (Late st Contact Info) Description 01/01/2021 Patient Outreach [facility] ENDOSCOPY [address] [place] [phone] Liberty Flaherty, RN Social History Tobacco Use Types Packs/Day [...] more drinks on one occasion? Never 12/31/2020 Sex and Gender Information Value Date Recorded Sex Assigned at Female 02/14/2020 1:06 PM AUTO CLUTCH REBUILDER Gender Identity Female 02/14/2020 1:05 PM AUTO CLUTCH REBUILDER Sexual Orientation Straight 02/14/2020 1: 05 PM AUTO CLUTCH REBUILDER documented as of this encounter Functional Status [...] No 11/19/2020 documented as of this encounter Plan of Treatment Upcoming Encounters Date Type Department Care Team (Late st Contact Info) Description 03/29/2024 2:00 PM AUTO CLUTCH REBUILDER Office Visit [address] [phone] Federico Branham Jr., MD [address] [place] [address] 04/11/2024 10:20 AM AUTO CLUTCH REBUILDER Office Visit [address] [phone] Federioc Branham Jr., MD [address] [place] [address] 04/18/2024 1:00 PM AUTO CLUTCH REBUILDER Office Visit [facility] [address] [place] [address] Federico Branham Jr., MD [address] [place] [address] Bahman Ann MD [address] [place] [phone] 05/27/2024 10:00 AM CDT Office Visit [facility] - Neurology [address] [place] [phone] Celi Bob PA-C [address] [place] [address] [address] [place] [phone] 05/28/2024 11:15 AM CDT Office Visit [facility] - Ophthalmology [address] [place] [phone] Jaylon Marks MD [address] [place] [address] DE[place] [address] 07/16/2024 2:15 PM CDT [facility] [address] [place] [phone] Ryland Fuentes MD [address] [place] [address] 07/30/2024 10:20 AM CDT Office Visit [facility] - Family Medicine [address] [place] [address] [address] [place] [address] [place] [address] [facility] [address] [place] [address] 08/06/2024 10:20 AM CDT Office Visit [facility] - Podiatry [address] [facility] [address] [place] [address] Devika Rolon DPM [phone] [place] [address] 500 [place] [address] 01/10/2025 10:00 AM AUTO CLUTCH REBUILDER Office Visit [facility] - GI [address] [place] [phone] Thais Euceda PA-C [address] [facility] DEPT [place] [address] documented as of this encounter Goals Goal Patient Goal Type Associated Problems Recent Progress Patient-Stated? 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 06/08/2020 COVID-19 Under Investigation 02/09/2023 02/09/2023 02/09/2023 2:41 PM AUTO CLUTCH REBUILDER COVID-19 Under Investigation 10/14/2023 10/14/2023 10/14/2023 11:24 AM CDT COVID-19 Under Investigation 03/16/2024 03/16/2024 03/16/2024 2:43 PM AUTO CLUTCH REBUILDER COVID-19 Under Investigation 03/16/2024 03/16/2024 03/16/2024 3:58 PM AUTO CLUTCH REBUILDER Influenza A or B 03/16/2024 03/16/2024 03/23/2024 4:33 AM AUTO CLUTCH REBUILDER documented as of this encounter Care Teams Customer Care Representative Relationship Specialty Start Date End Date Federico Branham Jr., MD PCP - General Family Medicine 08/01/18 09/24/23 Federico Branham Jr., MD [address] [place] [address] PCP - Attributed-MSSP 02/21/20 10/20/21 Federico Branham Jr., MD [address] [place] [address] PCP - Strive ACO 09/27/21 01/09/22 [place] [address] [place] [address] [phone] PCP - Attributed-MSSP 10/21/21 2 Piotr Alvarez MD [address] [place] [address] PCP - Strive ACO 01/10/22 03/28/22 Federico Branham Jr., MD [address] [place] [address] PCP - Attributed-MSSP 01/20/22 05/21/23 Julee Kang MD [address] [place] [address] [address] PCP - Strive ACO 03/29/22 05/20/22 Federico Branham Jr., MD [address] [place] [address] PCP - Strive ACO 05/21/22 08/19/22 Bahman Ann MD [address]27 [facility] 200 [place] [phone] PCP - Strive ACO 08/20/22 12/20/22 Francesco Hong MD [address]20 [place] [address] PCP - Strive ACO 12/21/22 08/20/23 Zoey Boyle [facility] DIRECTOR-BUSINESS MANAGEMENT ANALYST [address] [place] [address] PCP - Attributed-MSSP 05/22/23 08/20/23 Bahman Ann MD [address] [facility] [address] [place] [phone] PCP - Strive ACO 08/21/23 10/21/23 [place] [address] [phone] PCP - General Family Medicine 09/25/23 12/14/23 Federico Branham Jr., MD [address] [place] [address] PCP - Strive ACO 10/22/23 Federico Branham Jr., MD [address] [place] [address] PCP - Attributed-MSSP 08/21/23 11/20/23 Federico Branham Jr., MD [address] [place] [address] PCP - General Family Medicine 12/15/23 Octavia Parry [facility]ENTER DIRECTOR-BUSINESS MANAGEMENT ANALYST [address] [place] [address] PCP - Attributed-MSSP 11/21/23 Eden Godoy Dialysis Liaison 07/01/16 04/10/23 Farrukh Solorzano MD [address] [facility] [address] [place] [address] -x7 (Work) Cardiovascular Disease 08/01/18 Keya Reina MD 300 [facility] [address] [place] [address] Gastroenterology 08/01/18 Osmar Zambrano MD [address] [place] [address] 150 [place] [address] Otolaryngology 08/01/18 Francisco Tobin MD [address] [facility] 1 [place] [address] Pulmonary Disease 08/01/18 Jc Moreau MD 10[address] [facility] [address]80 [place], [place] [phone] Nephrology 08/01/18 [place] [address] [facility] [address] [place] [address] Farm Machinery Assembler Cardiac Electrophysiology 09/03/18 [place] [address] [facility] [address] [place] [address] Cardiology 04/25/19 [facility] Reporting ConsultantAsset Analyst 08/29/19 Oralia Boone, JAMESON Reporting ConsultantAsset Analyst 12/27/22 12/27/22 Mendy Camacho [facility] [place] [address] Care Coordination Specialist Care Management 09/21/23 09/21/23 Alycia Holguin, RN [address] [facility] [address] Reporting ConsultantAsset Analyst 10/20/23 10/20/23 Kylah Solares Care Coordination Specialist Care Management 10/25/23 12/01/23 documented as of this encounter
--- OUTSIDE RECORDS SUMMARY | 2024-03-25 09:11 | XMS_ITS ---
Author Organization [facility] Mitzy bartlett ([facility] interaction) Address [address] [place] [id number] Care Team Providers Care Bullard Operator Name Role Phone Unavailable Unavailable Unavailable Allergies, Adverse Reactions, Alerts Allergy Name Allergy Type Status Severity Reaction(s) Onset Date Inactive Date Treating Clinician Comments Darvon Allergy Active Moderate Allergy 2021-11 05:00:0 0 Medications Ordered Medication Name Filled Medication Name Start Date Stop Date Current Medication? Ordering Clinician Indication Dosage Frequency Signature (SIG) Comments Components Venofer 03-16 16:41: 06 Yes [id number] Number of Repeats Allowed: Frequency: One time a weekDosesO rdered: Maintenanc e Dose 50 Milligram Route: Intravenou s Midodrine HCl 03-04 19:20: 09 Yes Number of Repeats Allowed: Frequency: Three times a day Digoxin 03-04 19:17: 29 Yes Number of Repeats Allowed: Frequency: Two times a week calcitriol 03-04 17:18: 42 Yes [id number] Number of Repeats Allowed: Frequency: Three times a week Mircera 03-01 19:01: 44 Yes [id number] Number of Repeats Allowed: Frequency: SHERRI dosing, every two weeks Levalbutero l HCl 2023-02 13:53: 49 Yes Number of Repeats Allowed: Frequency: As needed Latanoprost 2023-02 13:53: 07 Yes Number of Repeats Allowed: Frequency: Once a day, at bedtime Gabapentin 2023-02 13:49: 44 Yes Number of Repeats Allowed: Frequency: Two times a day Fluticasone Propionate HFA 2023-02 13:48: 23 Yes Number of Repeats Allowed: Frequency: Two times a day Cinacalcet HCl 2023-02 13:47: 02 Yes Number of Repeats Allowed: Frequency: Three times a week on Monday, Monday and Monday Plavix 2023-02 13:45: 37 Yes Number of Repeats Allowed: Frequency: One time a day Artificial Tears 2023-02 13:45: 04 Yes Number of Repeats Allowed: Frequency: Three times a day ONS [facility] 2023-02 17:59: 35 Yes [id number] Number of Repeats Allowed: Frequency: Every Dialysis Treatment heparin sodium, porcine 2023-02 06:00: 00 Yes [id number] Number of Repeats Allowed: Frequency: Every Dialysis TreatmentD osesOrdere d: Post CVC Instillati on 2000 Units 1:1000 Units/mLRo lower [place]: Intracathe terDosesOr dered: Post CVC Instillati on 2100 Units 1:1000 Units/mLRo lower [place]: Intracathe ter Aspirin 81 2023-02 11:46: 30 Yes Number of Repeats Allowed: Frequency: One time a day calcitriol 2023-02 06:00: 00 Yes [id number] Number of Repeats Allowed: Frequency: Three times a week Mircera 2023-02 06:00: 00 Yes [id number] Number of Repeats Allowed: Frequency: SHERRI dosing, every two weeks Mircera 2023-02 17:14: 18 Yes [id number] Number of Repeats Allowed: Frequency: SHERRI dosing, every two weeks heparin sodium, porcine 2023-02 15:15: 08 Yes [id number] Number of Repeats Allowed: Frequency: Every Dialysis TreatmentD osesOrdere d: Loading Dose 1000 Units 1:1000 Units/mLRo [place]: Intravenou s heparin sodium, porcine 2023-02 15:15: 08 Yes [id number] Number of Repeats Allowed: Frequency: Every Dialysis TreatmentD osesOrdere d: Hourly Dose 500 Units/Hr 1:1000 Units/mLRo [place]: Intravenou s calcitriol 2023-02 0-14 17:21: 46 Yes [id number] Number of Repeats Allowed: Frequency: Three times a week Digoxin 8-14 13:00: 32 Yes Number of Repeats Allowed: Frequency: One time a week tiZANidine HCl 306 11:38: 01 Yes Number of Repeats Allowed: Frequency: Once a day, at bedtime Vitamin D 2022-02 14:09: 00 Yes Number of Repeats Allowed: Frequency: One time a day Omeprazole 2022-02 14:08: 06 Yes Number of Repeats Allowed: Frequency: Two times a day Midodrine HCl 2022-02 14:06: 52 Yes Number of Repeats Allowed: Frequency: Three times a day Lipitor 08-10 11:33: 52 Yes Number of Repeats Allowed: Frequency: Once a day, at bedtime ondansetron hydrochlori de 2021-02 06:00: 00 Yes [id number] Number of Repeats Allowed: Frequency: Every 4 hours as needed diphenhydra mine hydrochlori de 2021-02 06:00: 00 Yes [id number] Number of Repeats Allowed: Frequency: Every 4 hours as needed clonidine 2021-02 06:00: 00 Yes [id number] Number of Repeats Allowed: Frequency: Every 4 hours as needed EpiPen 2-Toro 2021-02 06:00: 00 Yes [id number] Number of Repeats Allowed: Frequency: Every 4 hours as needed diphenhydra mine hydrochlori de 2021-02 06:00: 00 Yes [id number] Number of Repeats Allowed: Frequency: Every 4 hours as needed Normal Saline Solution 0.9% NaCl 2021-02 06:00: 00 Yes [id number] Number of Repeats Allowed: Frequency: As needed acetaminoph en 2021-02 06:00: 00 Yes [id number] Number of Repeats Allowed: Frequency: Every 4 hours as needed Oxygen 2021-02 06:00: 00 Yes [id number] Number of Repeats Allowed: Frequency: As needed Ipratropium [place] 2021-02 2 15:59: 12 Yes Number of Repeats Allowed: Frequency: As needed Albuterol Sulfate HFA 2021-02 0-12 05:00: 00 Yes Number of Repeats Allowed: Frequency: As needed Beclomethas one Diprop HFA 07-08 05:00: 00 Yes Number of Repeats Allowed: Frequency: Two times a day FLUoxetine HCl 06-01 05:00: 00 Yes Number of Repeats Allowed: Frequency: One time a day Singulair 07-11 05:00: 00 Yes Number of Repeats Allowed: Frequency: Once a day, at bedtime Xopenex HFA 2018-02 2 06:00: 00 Yes Number of Repeats Allowed: Frequency: As needed Dialyvite 04-23 06:00: 00 Yes Number of Repeats Allowed: Frequency: One time a day Acetaminoph en 2017-02 06:00: 00 Yes Number of Repeats Allowed: Frequency: As needed Problems This patient has no known problems. Procedures Procedure Date / Time Performed Performing Clinician Jane ce Details AV Fistula 2024-03-08 06:00:00 Access Surgeon ROXANNA BASURTO ([id number]),[place] Access Site Upper Arm (Left) Central Venous Catheter (CVC)2024-01-31 06:00:00 Access Surgeon ROXANNA BASURTO ([id number]),[place] Access Site Subclavian (Right) Access Use Start Date 2024-01-31 06:00:0 0 AV [id number] 05:00:00 Access Site Forearm (Left) Access Use Start Date 2010-06-23 05:00:0 0 Access Use End Date 2024-02-23 06:00:00 DIALYSIS TREATMENT INFORMATION Conventional Hemodialysis Date Type Treatment Start Date Treatment End Date Pre-Treatment Vitals Post-Treatment Vitals Weight Gain BFR DFR Actual UF Dialysis Access Febru dillon 2024 In-Ce nter Hemod ialys is Treat ment 2024-03-25 T11:05:00. 000Z 2024-03-25 T14:25:03. 000Z BP Sitting (Pre-Dialysis) 190/98 mmHg BP Sitting (Post-D ialysis ) 137/ 52 mmHg Sitting Heart Rate Pre-Dialysis 98 BPM Sitting H eart Rate Post-Dialysis 94 BPM Temperature Pre-Dialysis 97.6 degF March 22, 2024 In-Center Hemodialysis Treatment 4966-14-14F05:04:00.000Z 2510-49-85I61:53:44.000Z BP Sitting (Pre-Dialysis) 154/66 mmHg BP Sitting (Post-Dialysis) 179/61 mmHg Concurrent Access: falseCentral Venous Catheter (CVC) Subclavian (Right) ArterialAV Fistula Upper Arm (Left) Venous Sitting Heart Rate Pre-Dialysis 79 BPM Sitting H eart Rate Post-Dialysis 72 BPM Temperature Pre-Dialysis 98.2 degF Temperature Post -Dialysis 98.1 degF March 20, 2024 In-Center Hemodialysis Treatment 1233-62-17J78:16:23.000Z 4841-70-05Q07:40:58.000Z BP Sitting (Pre-Dialysis) 144/67 mmHg BP Sitting (Post-Dialysis) 158/77 mmHg Concurrent Access: falseCentral Venous Catheter (CVC) Subclavian (Right) ArterialAV Fistula Upper Arm (Left) Venous Sitting Heart Rate Pre-Dialysis 72 BPM Sitting H eart Rate Post-Dialysis 80 BPM Temperature Pre-Dialysis 98 degF Temperature Post -Dialysis 98.2 degF March 15, 2024 In-Center Hemodialysis Treatment 6390-39-77K73:00:00.000Z 7119-57-82T81:01:53.000Z BP Sitting (Pre-Dialysis) 143/83 mmHg BP Sitting (Post-Dialysis) 118/53 mmHg Concurrent Access: falseCentral Venous Catheter (CVC) Subclavian (Right) ArterialAV Fistula Upper Arm (Left) Venous Sitting Heart Rate Pre-Dialysis 92 BPM Sitting H eart Rate Post-Dialysis 75 BPM Temperature Pre-Dialysis 98.5 degF Temperature Post -Dialysis 98.2 degF March 13, 2024 In-Center Hemodialysis Treatment 3975-03-63J54:13:15.000Z 1296-73-18K42:31:10.000Z BP Sitting (Pre-Dialysis) 153/63 mmHg BP Sitting (Post-Dialysis) 139/62 mmHg Concurrent Access: falseCentral Venous Catheter (CVC) Subclavian (Right) ArterialAV Fistula Forearm (Left) Venous Sitting Heart Rate Pre-Dialysis 84 BPM Sitting H eart Rate Post-Dialysis 81 BPM Temperature Pre-Dialysis 98.4 degF Temperature Post -Dialysis 98 degF March 11, 2024 In-Center Hemodialysis Treatment 4325-60-03V56:04:40.000Z 8056-52-03C71:08:25.000Z BP Sitting (Pre-Dialysis) 130/94 mmHg BP Sitting (Post-Dialysis) 171/78 mmHg Concurrent Access: falseCentral Venous Catheter (CVC) Subclavian (Right) ArterialAV Fistula Forearm (Left) Venous Sitting Heart Rate Pre-Dialysis 107 BPM Sitting H eart Rate Post-Dialysis 70 BPM Temperature Pre-Dialysis 98 degF Temperature Post -Dialysis 97.9 degF March 08, 2024 In-Center Hemodialysis Treatment 4542-04-77J01:01:00.000Z 9131-90-56V02:16:30.000Z BP Sitting (Pre-Dialysis) 164/83 mmHg BP Sitting (Post-Dialysis) 195/53 mmHg Concurrent Access: falseCentral Venous Catheter (CVC) Subclavian (Right) ArterialAV Fistula Forearm (Left) Venous Sitting Heart Rate Pre-Dialysis 88 BPM Sitting H eart Rate Post-Dialysis 88 BPM Temperature Pre-Dialysis 98 degF March 06, 2024 In-Center Hemodialysis Treatment 9839-57-06F94:01:00.000Z 2212-93-30T86:25:53.000Z BP Sitting (Pre-Dialysis) 158/79 mmHg BP Sitting (Post-Dialysis) 165/75 mmHg Concurrent Access: falseCentral Venous Catheter (CVC) Subclavian (Right) ArterialAV Fistula Forearm (Left) Venous Sitting Heart Rate Pre-Dialysis 92 BPM Sitting H eart Rate Post-Dialysis 90 BPM Temperature Pre-Dialysis 98.1 degF Temperature Post -Dialysis 97.7 degF March 04, 2024 In-Center Hemodialysis Treatment 9712-06-57E37:01:20.000Z 5527-74-47U20:20:05.000Z BP Sitting (Pre-Dialysis) 154/44 mmHg BP Sitting (Post-Dialysis) 196/63 mmHg Concurrent Access: falseCentral Venous Catheter (CVC) Subclavian (Right) ArterialAV Fistula Forearm (Left) Venous Sitting Heart Rate Pre-Dialysis 89 BPM Sitting H eart Rate Post-Dialysis 88 BPM Temperature Pre-Dialysis 97.4 degF Temperature Post -Dialysis 97.3 degF March 01, 2024 In-Center Hemodialysis Treatment 5956-72-13R66:02:32.000Z 4765-92-11V53:18:47.000Z BP Sitting (Pre-Dialysis) 147/64 mmHg BP Sitting (Post-Dialysis) 132/72 mmHg Concurrent Access: falseCentral Venous Catheter (CVC) Subclavian (Right) ArterialAV Fistula Forearm (Left) Venous Sitting Heart Rate Pre-Dialysis 86 BPM Sitting H eart Rate Post-Dialysis 83 BPM Temperature Pre-Dialysis 98.3 degF Temperature Post -Dialysis 98.2 degF February 28, 2024 In-Center Hemodialysis Treatment 3832-37-34A98:15:03.000Z 0938-97-59Z05:20:28.000Z BP Sitting (Pre-Dialysis) 193/68 mmHg BP Sitting (Post-Dialysis) 143/90 mmHg Concurrent Access: falseCentral Venous Catheter (CVC) Subclavian (Right) ArterialAV Fistula Forearm (Left) Venous Sitting Heart Rate Pre-Dialysis 86 BPM Sitting H eart Rate Post-Dialysis 83 BPM Temperature Pre-Dialysis 98 degF Temperature Post -Dialysis 98 degF February 27, 2024 In-Center Hemodialysis Treatment 2229-64-48J01:18:47.000Z 6390-50-29F62:39:12.000Z BP Sitting (Pre-Dialysis) 179/86 mmHg BP Sitting (Post-Dialysis) 159/75 mmHg Concurrent Access: falseCentral Venous Catheter (CVC) Subclavian (Right) ArterialAV Fistula Forearm (Left) Venous Sitting Heart Rate Pre-Dialysis 86 BPM Sitting H eart Rate Post-Dialysis 78 BPM Temperature Pre-Dialysis 98 degF Temperature Post -Dialysis 98 degF February 23, 2024 In-Center Hemodialysis Treatment 4305-82-96B61:04:25.000Z 8615-88-30W15:18:00.000Z BP Sitting (Pre-Dialysis) 158/70 mmHg BP Sitting (Post-Dialysis) 142/63 mmHg Concurrent Access: falseCentral Venous Catheter (CVC) Subclavian (Right) ArterialAV Fistula Forearm (Left) Venous Sitting Heart Rate Pre-Dialysis 84 BPM Sitting H eart Rate Post-Dialysis 88 BPM Temperature Pre-Dialysis 98.2 degF Temperature Post -Dialysis 98.2 degF February 20, 2024 In-Center Hemodialysis Treatment 4605-02-95X66:12:00.000Z 8117-00-72F75:20:00.000Z BP Sitting (Pre-Dialysis) 149/78 mmHg BP Sitting (Post-Dialysis) 168/74 mmHg Concurrent Access: falseCentral Venous Catheter (CVC) Subclavian (Right) ArterialAV Fistula Forearm (Left) Venous Sitting Heart Rate Pre-Dialysis 84 BPM Sitting H eart Rate Post-Dialysis 84 BPM Temperature Pre-Dialysis 98.3 degF Temperature Post -Dialysis 98 degF February 18, 2024 In-Center Hemodialysis Treatment 6443-78-18U50:01:00.000Z 6068-59-84A49:19:14.000Z BP Sitting (Pre-Dialysis) 146/51 mmHg BP Sitting (Post-Dialysis) 128/52 mmHg Concurrent Access: falseCentral Venous Catheter (CVC) Subclavian (Right) ArterialAV Fistula Forearm (Left) Venous Sitting Heart Rate Pre-Dialysis 80 BPM Sitting H eart Rate Post-Dialysis 81 BPM Temperature Pre-Dialysis 98 degF Temperature Post -Dialysis 97.9 degF February 16, 2024 In-Center Hemodialysis Treatment 4439-69-84H70:15:01.000Z 7628-30-83F11:37:31.000Z BP Sitting (Pre-Dialysis) 156/84 mmHg BP Sitting (Post-Dialysis) 161/71 mmHg Concurrent Access: falseCentral Venous Catheter (CVC) Subclavian (Right) ArterialAV Fistula Forearm (Left) Venous Sitting Heart Rate Pre-Dialysis 76 BPM Sitting H eart Rate Post-Dialysis 78 BPM Temperature Pre-Dialysis 97.8 degF Temperature Post -Dialysis 98.1 degF February 13, 2024 In-Center Hemodialysis Treatment 4043-78-12X30:03:00.000Z 1315-34-60G17:22:55.000Z BP Sitting (Pre-Dialysis) 177/82 mmHg BP Sitting (Post-Dialysis) 132/78 mmHg Concurrent Access: falseCentral Venous Catheter (CVC) Subclavian (Right) ArterialAV Fistula Forearm (Left) Venous Sitting Heart Rate Pre-Dialysis 79 BPM Sitting H eart Rate Post-Dialysis 80 BPM Temperature Pre-Dialysis 98 degF Temperature Post -Dialysis 97.9 degF February 11, 2024 In-Center Hemodialysis Treatment 4632-48-76N11:17:00.000Z 7453-98-04A85:34:50.000Z BP Sitting (Pre-Dialysis) 163/69 mmHg BP Sitting (Post-Dialysis) 109/57 mmHg Concurrent Access: falseCentral Venous Catheter (CVC) Subclavian (Right) ArterialAV Fistula Forearm (Left) Venous Sitting Heart Rate Pre-Dialysis 92 BPM Sitting H eart Rate Post-Dialysis 78 BPM Temperature Pre-Dialysis 97.4 degF Temperature Post -Dialysis 98.2 degF February 07, 2024 In-Center Hemodialysis Treatment 2198-44-70Y26:24:05.000Z 9671-80-88U21:42:25.000Z BP Sitting (Pre-Dialysis) 140/72 mmHg BP Sitting (Post-Dialysis) 158/59 mmHg Concurrent Access: falseCentral Venous Catheter (CVC) Subclavian (Right) ArterialAV Fistula Forearm (Left) Venous Sitting Heart Rate Pre-Dialysis 77 BPM Sitting H eart Rate Post-Dialysis 75 BPM Temperature Pre-Dialysis 97.5 degF Temperature Post -Dialysis 97.8 degF February 05, 2024 In-Center Hemodialysis Treatment 7358-99-09D70:07:00.000Z 2087-58-78O35:25:36.000Z BP Sitting (Pre-Dialysis) 157/73 mmHg BP Sitting (Post-Dialysis) 148/55 mmHg Concurrent Access: falseCentral Venous Catheter (CVC) Subclavian (Right) ArterialAV Fistula Forearm (Left) Venous Sitting Heart Rate Pre-Dialysis 75 BPM Sitting H eart Rate Post-Dialysis 70 BPM Temperature Pre-Dialysis 97.9 degF Temperature Post -Dialysis 97.9 degF February 02, 2024 In-Center Hemodialysis Treatment 8221-62-27Y94:13:00.000Z 2232-90-28P13:36:28.000Z BP Sitting (Pre-Dialysis) 173/91 mmHg BP Sitting (Post-Dialysis) 130/53 mmHg Concurrent Access: falseCentral Venous Catheter (CVC) Subclavian (Right) ArterialAV Fistula Forearm (Left) Venous Sitting Heart Rate Pre-Dialysis 87 BPM Sitting H eart Rate Post-Dialysis 86 BPM Temperature Pre-Dialysis 97.4 degF Temperature Post -Dialysis 97.7 degF January 29, 2024 In-Center Hemodialysis Treatment 8793-98-09X37:11:22.000Z 5475-78-96T31:28:52.000Z BP Sitting (Pre-Dialysis) 73/87 mmHg BP Sitting (Post-Dialysis) 155/54 mmHg Concurrent Access: falseAV Fistula Forearm (Left) Arterial Sitting Heart Rate Pre-Dialysis 80 BPM Sitting H eart Rate Post-Dialysis 65 BPM Temperature Pre-Dialysis 97.8 degF Temperature Post -Dialysis 97.6 degF January 26, 2024 In-Center Hemodialysis Treatment 7337-33-83P74:00:38.000Z 2660-86-79O76:00:38.000Z BP Sitting (Pre-Dialysis) 176/74 mmHg BP Sitting (Post-Dialysis) 112/43 mmHg Concurrent Access: falseAV Fistula Forearm (Left) Arterial Sitting Heart Rate Pre-Dialysis 60 BPM Sitting H eart Rate Post-Dialysis 69 BPM Temperature Pre-Dialysis 98.1 degF Temperature Post -Dialysis 98 degF January 24, 2024 In-Center Hemodialysis Treatment 9230-88-06R70:10:05.000Z 0488-82-50Y98:31:20.000Z BP Sitting (Pre-Dialysis) 168/69 mmHg BP Sitting (Post-Dialysis) 121/62 mmHg Concurrent Access: falseAV Fistula Forearm (Left) Arterial Sitting Heart Rate Pre-Dialysis 76 BPM Sitting H eart Rate Post-Dialysis 71 BPM Temperature Pre-Dialysis 97.9 degF Temperature Post -Dialysis 98.4 degF January 22, 2024 In-Center Hemodialysis Treatment 7564-95-17G45:07:00.000Z 1685-23-77V14:34:07.000Z BP Sitting (Pre-Dialysis) 165/64 mmHg BP Sitting (Post-Dialysis) 160/63 mmHg Concurrent Access: falseAV Fistula Forearm (Left) Arterial Sitting Heart Rate Pre-Dialysis 83 BPM Sitting H eart Rate Post-Dialysis 77 BPM Temperature Pre-Dialysis 98 degF Temperature Post -Dialysis 98 degF January 19, 2024 In-Center Hemodialysis Treatment 1213-61-58B71:00:54.000Z 4838-82-43T99:19:14.000Z BP Sitting (Pre-Dialysis) 166/67 mmHg BP Sitting (Post-Dialysis) 108/49 mmHg Concurrent Access: falseAV Fistula Forearm (Left) Arterial Sitting Heart Rate Pre-Dialysis 72 BPM Sitting H eart Rate Post-Dialysis 63 BPM Temperature Pre-Dialysis 98 degF Temperature Post -Dialysis 97.9 degF January 16, 2024 In-Center Hemodialysis Treatment 1796-21-02F55:11:27.000Z 5921-80-91X17:28:32.000Z BP Sitting (Pre-Dialysis) 136/78 mmHg BP Sitting (Post-Dialysis) 137/45 mmHg Concurrent Access: falseAV Fistula Forearm (Left) Arterial Sitting Heart Rate Pre-Dialysis 85 BPM Sitting H eart Rate Post-Dialysis 74 BPM Temperature Pre-Dialysis 97.4 degF Temperature Post -Dialysis 97.8 degF January 14, 2024 In-Center Hemodialysis Treatment 0046-26-91M43:05:10.000Z 8050-53-73J49:24:20.000Z BP Sitting (Pre-Dialysis) 166/83 mmHg BP Sitting (Post-Dialysis) 136/61 mmHg Concurrent Access: falseAV Fistula Forearm (Left) Arterial Sitting Heart Rate Pre-Dialysis 82 BPM Sitting H eart Rate Post-Dialysis 74 BPM Temperature Pre-Dialysis 98.1 degF Temperature Post -Dialysis 97.6 degF January 12, 2024 In-Center Hemodialysis Treatment 1109-21-53T82:10:49.000Z 6560-42-57E81:27:04.000Z BP Sitting (Pre-Dialysis) 142/62 mmHg BP Sitting (Post-Dialysis) 121/61 mmHg Concurrent Access: falseAV Fistula Forearm (Left) Arterial Sitting Heart Rate Pre-Dialysis 67 BPM Sitting H eart Rate Post-Dialysis 76 BPM Temperature Pre-Dialysis 98 degF Temperature Post -Dialysis 98.2 degF January 10, 2024 In-Center Hemodialysis Treatment 9009-04-68Q33:03:00.000Z 6231-57-62K89:24:42.000Z BP Sitting (Pre-Dialysis) 125/71 mmHg BP Sitting (Post-Dialysis) 138/40 mmHg Concurrent Access: falseAV Fistula Forearm (Left) Arterial Sitting Heart Rate Pre-Dialysis 72 BPM Sitting H eart Rate Post-Dialysis 79 BPM Temperature Pre-Dialysis 98 degF Temperature Post -Dialysis 97.9 degF January 08, 2024 In-Center Hemodialysis Treatment 3352-34-31O55:57:00.000Z 6562-49-42I95:01:44.000Z BP Sitting (Pre-Dialysis) 157/73 mmHg BP Sitting (Post-Dialysis) 155/67 mmHg Concurrent Access: falseAV Fistula Forearm (Left) Arterial Sitting Heart Rate Pre-Dialysis 81 BPM Sitting H eart Rate Post-Dialysis 77 BPM Temperature Pre-Dialysis 97.8 degF Temperature Post -Dialysis 97.6 degF January 05, 2024 In-Center Hemodialysis Treatment 4985-18-91F23:14:47.000Z 6699-97-62J42:21:02.000Z BP Sitting (Pre-Dialysis) 146/53 mmHg BP Sitting (Post-Dialysis) 135/60 mmHg Concurrent Access: falseAV Fistula Forearm (Left) Arterial Sitting Heart Rate Pre-Dialysis 71 BPM Sitting H eart Rate Post-Dialysis 77 BPM Temperature Pre-Dialysis 97.1 degF Temperature Post -Dialysis 97.7 degF January 03, 2024 In-Center Hemodialysis Treatment 2177-27-39M22:02:11.000Z 7338-53-89M03:23:51.000Z BP Sitting (Pre-Dialysis) 140/68 mmHg BP Sitting (Post-Dialysis) 101/62 mmHg Concurrent Access: falseAV Fistula Forearm (Left) Arterial Sitting Heart Rate Pre-Dialysis 80 BPM Sitting H eart Rate Post-Dialysis 73 BPM Temperature Pre-Dialysis 98 degF Temperature Post -Dialysis 98.3 degF January 01, 2024 In-Center Hemodialysis Treatment 7792-61-38X38:02:00.000Z 3995-01-91U79:21:05.000Z BP Sitting (Pre-Dialysis) 126/65 mmHg BP Sitting (Post-Dialysis) 121/70 mmHg Concurrent Access: falseAV Fistula Forearm (Left) Arterial Sitting Heart Rate Pre-Dialysis 63 BPM Sitting H eart Rate Post-Dialysis 65 BPM Temperature Pre-Dialysis 97.4 degF Temperature Post -Dialysis 97.5 degF December 29, 2023 In-Center Hemodialysis Treatment 8029-47-56U70:10:00.000Z 7567-27-67E81:29:56.000Z BP Sitting (Pre-Dialysis) 137/61 mmHg BP Sitting (Post-Dialysis) 123/72 mmHg Concurrent Access: falseAV Fistula Forearm (Left) Arterial Sitting Heart Rate Pre-Dialysis 69 BPM Sitting H eart Rate Post-Dialysis 74 BPM Temperature Pre-Dialysis 97.5 degF Temperature Post -Dialysis 98 degF December 27, 2023 In-Center Hemodialysis Treatment 3195-51-94O83:59:00.000Z 5257-59-19O80:15:38.000Z BP Sitting (Pre-Dialysis) 127/67 mmHg BP Sitting (Post-Dialysis) 124/40 mmHg Concurrent Access: falseAV Fistula Forearm (Left) Arterial Sitting Heart Rate Pre-Dialysis 83 BPM Sitting H eart Rate Post-Dialysis 77 BPM Temperature Pre-Dialysis 97.7 degF Temperature Post -Dialysis 97.4 degF December 25, 2023 In-Center Hemodialysis Treatment 5571-27-89O31:13:19.000Z 7539-73-23O80:29:59.000Z BP Sitting (Pre-Dialysis) 142/65 mmHg BP Sitting (Post-Dialysis) 126/52 mmHg Concurrent Access: falseAV Fistula Forearm (Left) Arterial Sitting Heart Rate Pre-Dialysis 76 BPM Sitting H eart Rate Post-Dialysis 81 BPM Temperature Pre-Dialysis 97.9 degF Temperature Post -Dialysis 97.6 degF December 22, 2023 In-Center Hemodialysis Treatment 5111-57-43O00:57:00.000Z 2093-71-45U70:18:28.000Z BP Sitting (Pre-Dialysis) 145/59 mmHg BP Sitting (Post-Dialysis) 109/55 mmHg Concurrent Access: falseAV Fistula Forearm (Left) Arterial Sitting Heart Rate Pre-Dialysis 79 BPM Sitting H eart Rate Post-Dialysis 76 BPM Temperature Pre-Dialysis 97.2 degF Temperature Post -Dialysis 98.1 degF December 20, 2023 In-Center Hemodialysis Treatment 0341-72-67Y82:08:30.000Z 0120-53-77O05:36:00.000Z BP Sitting (Pre-Dialysis) 165/64 mmHg BP Sitting (Post-Dialysis) 117/45 mmHg Concurrent Access: falseAV Fistula Forearm (Left) Arterial Sitting Heart Rate Pre-Dialysis 88 BPM Sitting H eart Rate Post-Dialysis 68 BPM Temperature Pre-Dialysis 97.6 degF Temperature Post -Dialysis 98 degF December 18, 2023 In-Center Hemodialysis Treatment 4678-46-50H51:05:06.000Z 5729-76-15J92:32:36.000Z BP Sitting (Pre-Dialysis) 128/71 mmHg BP Sitting (Post-Dialysis) 109/62 mmHg Concurrent Access: falseAV Fistula Forearm (Left) Arterial Sitting Heart Rate Pre-Dialysis 79 BPM Sitting H eart Rate Post-Dialysis 79 BPM Temperature Pre-Dialysis 97.7 degF Temperature Post -Dialysis 98 degF December 15, 2023 In-Center Hemodialysis Treatment 8934-34-50U86:05:00.000Z 3156-02-47H48:37:07.000Z BP Sitting (Pre-Dialysis) 151/70 mmHg BP Sitting (Post-Dialysis) 142/65 mmHg Concurrent Access: falseAV Fistula Forearm (Left) Arterial Sitting Heart Rate Pre-Dialysis 83 BPM Sitting H eart Rate Post-Dialysis 79 BPM Temperature Pre-Dialysis 97.9 degF Temperature Post -Dialysis 97.3 degF December 13, 2023 In-Center Hemodialysis Treatment 8593-97-50Q11:12:00.000Z 3032-57-91F39:24:11.000Z BP Sitting (Pre-Dialysis) 138/56 mmHg BP Sitting (Post-Dialysis) 111/43 mmHg Concurrent Access: falseAV Fistula Forearm (Left) Arterial Sitting Heart Rate Pre-Dialysis 72 BPM Sitting H eart Rate Post-Dialysis 80 BPM Temperature Pre-Dialysis 96.8 degF Temperature Post -Dialysis 96.6 degF December 11, 2023 In-Center Hemodialysis Treatment 7709-03-04N50:08:00.000Z 1635-44-53L87:31:48.000Z BP Sitting (Pre-Dialysis) 164/81 mmHg BP Sitting (Post-Dialysis) 126/53 mmHg Concurrent Access: falseAV Fistula Forearm (Left) Arterial Sitting Heart Rate Pre-Dialysis 86 BPM Sitting H eart Rate Post-Dialysis 76 BPM Temperature Pre-Dialysis 97.4 degF Temperature Post -Dialysis 97.2 degF December 08, 2023 In-Center Hemodialysis Treatment 1271-29-04I66:59:00.000Z 4458-36-41M93:21:26.000Z BP Sitting (Pre-Dialysis) 116/56 mmHg BP Sitting (Post-Dialysis) 130/55 mmHg Concurrent Access: falseAV Fistula Forearm (Left) Arterial Sitting Heart Rate Pre-Dialysis 71 BPM Sitting H eart Rate Post-Dialysis 67 BPM Temperature Pre-Dialysis 97.8 degF Temperature Post -Dialysis 98.2 degF December 06, 2023 In-Center Hemodialysis Treatment 5470-82-42Z71:03:00.000Z 3614-32-93O14:29:22.000Z BP Sitting (Pre-Dialysis) 137/83 mmHg BP Sitting (Post-Dialysis) 106/58 mmHg Concurrent Access: falseAV Fistula Forearm (Left) Arterial Sitting Heart Rate Pre-Dialysis 87 BPM BP Standing (Post-Dialysis) 105/61 mmHg Temperature Pre-Dialysis 97.2 degF Sitting Heart Ra te Post-Dialysis 76 BPM Standing Heart Rate Post-Renay lysis 92 BPM Temperature Post-Dialysis 97 .3 degF December 04, 2023 In-Center Hemodialysis Treatment 7830-70-36U18:12:46.000Z 8089-17-16U31:31:21.000Z BP Sitting (Pre-Dialysis) 128/73 mmHg BP Sitting (Post-Dialysis) 130/72 mmHg Concurrent Access: falseAV Fistula Forearm (Left) Arterial Sitting Heart Rate Pre-Dialysis 62 BPM Sitting H eart Rate Post-Dialysis 64 BPM Temperature Pre-Dialysis 97.2 degF Temperature Post -Dialysis 97.6 degF December 01, 2023 In-Center Hemodialysis Treatment [id number]:10:53.000Z 8678-43-91T14:35:53.000Z BP Sitting (Pre-Dialysis) 107/49 mmHg BP Sitting (Post-Dialysis) 109/49 mmHg Concurrent Access: falseAV Fistula Forearm (Left) Arterial Sitting Heart Rate Pre-Dialysis 74 BPM Sitting H eart Rate Post-Dialysis 69 BPM Temperature Pre-Dialysis 97.2 degF Temperature Post -Dialysis 97.5 degF November 29, 2023 In-Center Hemodialysis Treatment 4800-87-70Z34:11:08.000Z 3195-58-38G81:28:38.000Z BP Sitting (Pre-Dialysis) 112/47 mmHg BP Sitting (Post-Dialysis) 105/53 mmHg Concurrent Access: falseAV Fistula Forearm (Left) Arterial Sitting Heart Rate Pre-Dialysis 65 BPM Sitting H eart Rate Post-Dialysis 73 BPM Temperature Pre-Dialysis 97.3 degF Temperature Post -Dialysis 98.2 degF November 27, 2023 In-Center Hemodialysis Treatment [id number]:10:06.000Z 9265-56-38B60:35:31.000Z BP Sitting (Pre-Dialysis) 123/61 mmHg BP Sitting (Post-Dialysis) 101/70 mmHg Concurrent Access: falseAV Fistula Forearm (Left) Arterial Sitting Heart Rate Pre-Dialysis 80 BPM Sitting H eart Rate Post-Dialysis 92 BPM Temperature Pre-Dialysis 98 degF Temperature Post -Dialysis 97.6 degF November 24, 2023 In-Center Hemodialysis Treatment 3756-01-89S92:06:57.000Z 1175-02-95N37:30:17.000Z BP Sitting (Pre-Dialysis) 138/72 mmHg BP Sitting (Post-Dialysis) 103/46 mmHg Concurrent Access: falseAV Fistula Forearm (Left) Arterial Sitting Heart Rate Pre-Dialysis 76 BPM Sitting H eart Rate Post-Dialysis 63 BPM Temperature Pre-Dialysis 97.8 degF Temperature Post -Dialysis 97.4 degF November 22, 2023 In-Center Hemodialysis Treatment 9227-62-97L95:08:29.000Z 5041-69-35D88:26:49.000Z BP Sitting (Pre-Dialysis) 123/66 mmHg BP Sitting (Post-Dialysis) 123/52 mmHg Concurrent Access: falseAV Fistula Forearm (Left) Arterial Sitting Heart Rate Pre-Dialysis 75 BPM Sitting H eart Rate Post-Dialysis 84 BPM Temperature Pre-Dialysis 97.8 degF Temperature Post -Dialysis 97.6 degF November 20, 2023 In-Center Hemodialysis Treatment 3052-81-20O89:06:00.000Z 2896-60-40Z04:27:56.000Z BP Sitting (Pre-Dialysis) 130/63 mmHg BP Sitting (Post-Dialysis) 95/53 mmHg Concurrent Access: falseAV Fistula Forearm (Left) Arterial Sitting Heart Rate Pre-Dialysis 72 BPM Sitting H eart Rate Post-Dialysis 84 BPM Temperature Pre-Dialysis 97.7 degF Temperature Post -Dialysis 97.1 degF November 17, 2023 In-Center Hemodialysis Treatment 6953-04-23H27:04:00.000Z 0948-94-23N44:28:56.000Z BP Sitting (Pre-Dialysis) 119/52 mmHg BP Sitting (Post-Dialysis) 135/57 mmHg Concurrent Access: falseAV Fistula Forearm (Left) Arterial Sitting Heart Rate Pre-Dialysis 88 BPM Sitting H eart Rate Post-Dialysis 94 BPM Temperature Pre-Dialysis 97.9 degF Temperature Post -Dialysis 98.2 degF November 15, 2023 In-Center Hemodialysis Treatment 7060-35-81J16:04:16.000Z 4622-99-50S63:19:16.000Z BP Sitting (Pre-Dialysis) 137/69 mmHg BP Sitting (Post-Dialysis) 140/52 mmHg Concurrent Access: falseAV Fistula Forearm (Left) Arterial Sitting Heart Rate Pre-Dialysis 82 BPM Sitting H eart Rate Post-Dialysis 83 BPM Temperature Pre-Dialysis 97 degF Temperature Post -Dialysis 97.2 degF November 13, 2023 In-Center Hemodialysis Treatment 7097-55-85U86:12:00.000Z 6267-37-72M14:12:53.000Z BP Sitting (Pre-Dialysis) 133/62 mmHg BP Sitting (Post-Dialysis) 142/54 mmHg Concurrent Access: falseAV Fistula Forearm (Left) Arterial Sitting Heart Rate Pre-Dialysis 76 BPM Sitting H eart Rate Post-Dialysis 85 BPM Temperature Pre-Dialysis 97.9 degF Temperature Post -Dialysis 97.9 degF November 10, 2023 In-Center Hemodialysis Treatment 2560-79-07J55:00:00.000Z 6112-01-60K34:16:19.000Z BP Sitting (Pre-Dialysis) 129/56 mmHg BP Sitting (Post-Dialysis) 111/59 mmHg Concurrent Access: falseAV Fistula Forearm (Left) Arterial Sitting Heart Rate Pre-Dialysis 86 BPM Sitting H eart Rate Post-Dialysis 78 BPM Temperature Pre-Dialysis 97.8 degF Temperature Post -Dialysis 98.2 degF November 08, 2023 In-Center Hemodialysis Treatment 0693-79-55K91:16:03.000Z 4932-53-38M91:47:18.000Z BP Sitting (Pre-Dialysis) 124/70 mmHg BP Sitting (Post-Dialysis) 93/52 mmHg Concurrent Access: falseAV Fistula Forearm (Left) Arterial Sitting Heart Rate Pre-Dialysis 86 BPM Sitting H eart Rate Post-Dialysis 86 BPM Temperature Pre-Dialysis 98 degF Temperature Post -Dialysis 97.3 degF November 06, 2023 In-Center Hemodialysis Treatment 1684-53-35Z47:10:00.000Z 3987-46-08E86:48:18.000Z BP Sitting (Pre-Dialysis) 91/39 mmHg BP Sitting (Post-Dialysis) 92/60 mmHg Concurrent Access: falseAV Fistula Forearm (Left) Arterial Sitting Heart Rate Pre-Dialysis 84 BPM Sitting H eart Rate Post-Dialysis 77 BPM Temperature Pre-Dialysis 97.7 degF Temperature Post -Dialysis 97.5 degF October 04, 2023 In-Center Hemodialysis Treatment 1721-87-80N74:01:00.000Z 1385-32-90R09:37:52.000Z BP Sitting (Pre-Dialysis) 133/71 mmHg BP Sitting (Post-Dialysis) 126/74 mmHg Concurrent Access: falseAV Fistula Forearm (Left) Arterial BP Standing (Pre-Dialysis) 132/77 mmHg BP Standing (P ost-Dialysis) 138/76 mmHg Sitting Heart Rate Pre-Dialysis 95 BPM Sitting Heart Rate Post-Dialysis 86 BPM Standing Heart Rate Pre-Dialysis 99 BPM Standing Heart Rate Post-Dialysis 92 BPM Temperature Pre-Dialysis 98 degF Temperature Post -Dialysis 98 degF October 02, 2023 In-Center Hemodialysis Treatment 9959-85-60M64:13:00.000Z 7237-48-33H38:37:57.000Z BP Sitting (Pre-Dialysis) 161/59 mmHg BP Sitting (Post-Dialysis) 153/34 mmHg Concurrent Access: falseAV Fistula Forearm (Left) Arterial BP Standing (Pre-Dialysis) 164/73 mmHg Sitti ng Heart Rate Post-Dialysis 87 BPM Sitting Heart Rate Pre-Dialysis 89 BPM Temperatu re Post-Dialysis 97.4 degF Standing Heart Rate Pre-Dialysis 89 BPM Temperature Pre-Dialysis 96.7 degF September 29, 2023 In-Center Hemodialysis Treatment 5620-64-52T68:05:00.000Z 7684-72-16F16:37:05.000Z BP Sitting (Pre-Dialysis) 156/67 mmHg BP Sitting (Post-Dialysis) 168/85 mmHg Concurrent Access: falseAV Fistula Forearm (Left) Arterial BP Standing (Pre-Dialysis) 186/92 mmHg BP Standing (P ost-Dialysis) 172/61 mmHg Sitting Heart Rate Pre-Dialysis 94 BPM Sitting Heart Rate Post-Dialysis 93 BPM Standing Heart Rate Pre-Dialysis 103 BPM Standing Heart Rate Post-Dialysis 98 BPM Temperature Pre-Dialysis 96.2 degF Temperature Post -Dialysis 97.1 degF September 27, 2023 In-Center Hemodialysis Treatment 8575-18-23F94:04:00.000Z 5283-06-99Z67:27:03.000Z BP Sitting (Pre-Dialysis) 130/52 mmHg BP Sitting (Post-Dialysis) 97/57 mmHg Concurrent Access: falseAV Fistula Forearm (Left) Arterial BP Standing (Pre-Dialysis) 137/70 mmHg BP Standing (P ost-Dialysis) 104/57 mmHg Sitting Heart Rate Pre-Dialysis 94 BPM Sitting Heart Rate Post-Dialysis 72 BPM Standing Heart Rate Pre-Dialysis 97 BPM Standing Heart Rate Post-Dialysis 83 BPM Temperature Pre-Dialysis 97.8 degF Temperature Post -Dialysis 97.8 degF September 25, 2023 In-Center Hemodialysis Treatment 5276-18-57I10:02:00.000Z 6278-82-43N51:30:17.000Z BP Sitting (Pre-Dialysis) 177/79 mmHg BP Sitting (Post-Dialysis) 122/71 mmHg Concurrent Access: falseAV Fistula Forearm (Left) Arterial Sitting Heart Rate Pre-Dialysis 72 BPM Sitting H eart Rate Post-Dialysis 84 BPM Temperature Pre-Dialysis 97.3 degF Temperature Post -Dialysis 97.7 degF September 22, 2023 In-Center Hemodialysis Treatment 2814-57-95J50:07:00.000Z 2130-82-05N01:30:58.000Z BP Sitting (Pre-Dialysis) 138/91 mmHg BP Sitting (Post-Dialysis) 124/52 mmHg Concurrent Access: falseAV Fistula Forearm (Left) Arterial BP Standing (Pre-Dialysis) 171/90 mmHg Sitti ng Heart Rate Post-Dialysis 95 BPM Sitting Heart Rate Pre-Dialysis 103 BPM Temperatu re Post-Dialysis 97.8 degF Standing Heart Rate Pre-Dialysis 107 BPM Temperature Pre-Dialysis 97.9 degF September 20, 2023 In-Center Hemodialysis Treatment 8670-74-06X17:05:47.000Z 7971-97-94N68:20:22.000Z BP Sitting (Pre-Dialysis) 151/80 mmHg BP Sitting (Post-Dialysis) 119/56 mmHg Concurrent Access: falseAV Fistula Forearm (Left) Arterial BP Standing (Pre-Dialysis) 159/79 mmHg Sitti ng Heart Rate Post-Dialysis 90 BPM Sitting Heart Rate Pre-Dialysis 97 BPM Temperatu re Post-Dialysis 97.5 degF Standing Heart Rate Pre-Dialysis 96 BPM Temperature Pre-Dialysis 98.6 degF September 18, 2023 In-Center Hemodialysis Treatment 1381-41-33K06:03:56.000Z 3838-71-04T11:18:06.000Z BP Sitting (Pre-Dialysis) 162/57 mmHg BP Sitting (Post-Dialysis) 130/84 mmHg Concurrent Access: falseAV Fistula Forearm (Left) Arterial Sitting Heart Rate Pre-Dialysis 104 BPM BP Standing (Post-Dialysis) 161/78 mmHg Temperature Pre-Dialysis 97.5 degF Sitting Heart Ra te Post-Dialysis 106 BPM Standing Heart Rate Post-Renay lysis 104 BPM Temperature Post-Dialysis 97 .8 degF September 15, 2023 In-Center Hemodialysis Treatment 6232-00-99Q73:04:00.000Z 0868-37-74B10:24:03.000Z BP Sitting (Pre-Dialysis) 169/87 mmHg BP Sitting (Post-Dialysis) 151/54 mmHg Concurrent Access: falseAV Fistula Forearm (Left) Arterial BP Standing (Pre-Dialysis) 164/88 mmHg BP Standing (P ost-Dialysis) 144/48 mmHg Sitting Heart Rate Pre-Dialysis 97 BPM Sitting Heart Rate Post-Dialysis 92 BPM Standing Heart Rate Pre-Dialysis 104 BPM Standing Heart Rate Post-Dialysis 107 BPM Temperature Pre-Dialysis 97.2 degF Temperature Post -Dialysis 98.2 degF September 13, 2023 In-Center Hemodialysis Treatment [id number]:56:00.000Z 0477-60-53U88:20:56.000Z BP Sitting (Pre-Dialysis) 158/92 mmHg BP Sitting (Post-Dialysis) 150/75 mmHg Concurrent Access: falseAV Fistula Forearm (Left) Arterial BP Standing (Pre-Dialysis) 185/76 mmHg BP Standing (P ost-Dialysis) 160/83 mmHg Sitting Heart Rate Pre-Dialysis 105 BPM Sitting Heart Rate Post-Dialysis 102 BPM Standing Heart Rate Pre-Dialysis 107 BPM Standing Heart Rate Post-Dialysis 98 BPM Temperature Pre-Dialysis 97.5 degF Temperature Post -Dialysis 97.7 degF September 11, 2023 In-Center Hemodialysis Treatment 5826-77-60X30:54:00.000Z 4195-92-71N13:21:37.000Z BP Sitting (Pre-Dialysis) 167/87 mmHg BP Sitting (Post-Dialysis) 122/88 mmHg Concurrent Access: falseAV Fistula Forearm (Left) Arterial BP Standing (Pre-Dialysis) 180/86 mmHg BP Standing (P ost-Dialysis) 114/93 mmHg Sitting Heart Rate Pre-Dialysis 111 BPM Sitting Heart Rate Post-Dialysis 96 BPM Standing Heart Rate Pre-Dialysis 116 BPM Standing Heart Rate Post-Dialysis 66 BPM Temperature Pre-Dialysis 97.6 degF Temperature Post -Dialysis 97.8 degF September 08, 2023 In-Center Hemodialysis Treatment 7607-71-87R14:16:00.000Z 0383-80-34M82:20:24.000Z BP Sitting (Pre-Dialysis) 164/82 mmHg BP Sitting (Post-Dialysis) 109/60 mmHg Concurrent Access: falseAV Fistula Forearm (Left) Arterial BP Standing (Pre-Dialysis) 172/68 mmHg BP Standing (P ost-Dialysis) 135/54 mmHg Sitting Heart Rate Pre-Dialysis 101 BPM Sitting Heart Rate Post-Dialysis 104 BPM Standing Heart Rate Pre-Dialysis 104 BPM Standing Heart Rate Post-Dialysis 113 BPM Temperature Pre-Dialysis 97.2 degF Temperature Post -Dialysis 97.6 degF September 06, 2023 In-Center Hemodialysis Treatment 9874-93-73V05:53:00.000Z 4971-64-03Y35:22:08.000Z BP Sitting (Pre-Dialysis) 159/84 mmHg BP Sitting (Post-Dialysis) 132/63 mmHg Concurrent Access: falseAV Fistula Forearm (Left) Arterial BP Standing (Pre-Dialysis) 135/85 mmHg BP Standing (P ost-Dialysis) 136/64 mmHg Sitting Heart Rate Pre-Dialysis 104 BPM Sitting Heart Rate Post-Dialysis 96 BPM Standing Heart Rate Pre-Dialysis 109 BPM Standing Heart Rate Post-Dialysis 107 BPM Temperature Pre-Dialysis 97.6 degF Temperature Post -Dialysis 98.1 degF September 04, 2023 In-Center Hemodialysis Treatment 0889-83-23O71:56:00.000Z 8413-85-35T70:18:51.000Z BP Sitting (Pre-Dialysis) 173/88 mmHg BP Sitting (Post-Dialysis) 154/58 mmHg Concurrent Access: falseAV Fistula Forearm (Left) Arterial BP Standing (Pre-Dialysis) 166/89 mmHg BP Standing (P ost-Dialysis) 144/84 mmHg Sitting Heart Rate Pre-Dialysis 105 BPM Sitting Heart Rate Post-Dialysis 104 BPM Standing Heart Rate Pre-Dialysis 107 BPM Standing Heart Rate Post-Dialysis 109 BPM Temperature Pre-Dialysis 97.8 degF Temperature Post -Dialysis 98.2 degF September 01, 2023 In-Center Hemodialysis Treatment [id number]:55:00.000Z 4976-73-50Q29:24:56.000Z BP Sitting (Pre-Dialysis) 146/74 mmHg BP Sitting (Post-Dialysis) 121/57 mmHg Concurrent Access: falseAV Fistula Forearm (Left) Arterial BP Standing (Pre-Dialysis) 163/81 mmHg BP Standing (P ost-Dialysis) 116/64 mmHg Sitting Heart Rate Pre-Dialysis 101 BPM Sitting Heart Rate Post-Dialysis 78 BPM Standing Heart Rate Pre-Dialysis 103 BPM Standing Heart Rate Post-Dialysis 107 BPM Temperature Pre-Dialysis 97.7 degF Temperature Post -Dialysis 97.9 degF August 30, 2023 In-Center Hemodialysis Treatment 2239-26-16N92:05:39.000Z 3053-54-01K94:22:19.000Z BP Sitting (Pre-Dialysis) 151/79 mmHg BP Sitting (Post-Dialysis) 133/47 mmHg Concurrent Access: falseAV Fistula Forearm (Left) Arterial BP Standing (Pre-Dialysis) 168/85 mmHg BP Standing (P ost-Dialysis) 128/66 mmHg Sitting Heart Rate Pre-Dialysis 100 BPM Sitting Heart Rate Post-Dialysis 100 BPM Standing Heart Rate Pre-Dialysis 108 BPM Standing Heart Rate Post-Dialysis 115 BPM Temperature Pre-Dialysis 97.9 degF Temperature Post -Dialysis 97 degF August 28, 2023 In-Center Hemodialysis Treatment 1380-61-62Y90:00:00.000Z 3740-67-35N93:19:46.000Z BP Sitting (Pre-Dialysis) 155/69 mmHg BP Sitting (Post-Dialysis) 113/66 mmHg Concurrent Access: falseAV Fistula Forearm (Left) Arterial BP Standing (Pre-Dialysis) 140/68 mmHg BP Standing (P ost-Dialysis) 98/52 mmHg Sitting Heart Rate Pre-Dialysis 108 BPM Sitting Heart Rate Post-Dialysis 100 BPM Standing Heart Rate Pre-Dialysis 108 BPM Standing Heart Rate Post-Dialysis 105 BPM Temperature Pre-Dialysis 97.6 degF Temperature Post -Dialysis 97.9 degF August 25, 2023 In-Center Hemodialysis Treatment 1207-33-69O84:01:00.000Z 3582-97-57Z02:18:37.000Z BP Sitting (Pre-Dialysis) 154/85 mmHg BP Sitting (Post-Dialysis) 148/84 mmHg Concurrent Access: falseAV Fistula Forearm (Left) Arterial Sitting Heart Rate Pre-Dialysis 105 BPM BP Standing (Post-Dialysis) 117/60 mmHg Temperature Pre-Dialysis 97.1 degF Sitting Heart Ra te Post-Dialysis 101 BPM Standing Heart Rate Post-Renay lysis 116 BPM Temperature Post-Dialysis 97 .6 degF August 23, 2023 In-Center Hemodialysis Treatment 7135-49-57H24:01:00.000Z 4227-16-36B30:04:00.000Z BP Sitting (Pre-Dialysis) 154/87 mmHg BP Sitting (Post-Dialysis) 104/70 mmHg Concurrent Access: falseAV Fistula Forearm (Left) Arterial Sitting Heart Rate Pre-Dialysis 106 BPM BP Standi ng (Post-Dialysis) 113/56 mmHg Temperature Pre-Dialysis 98 degF Sitting Heart Ra te Post-Dialysis 106 BPM Standing Heart Rate Post-Renay lysis 107 BPM Temperature Post-Dialysis 98 .1 degF August 21, 2023 In-Center Hemodialysis Treatment 5835-63-89P74:22:00.000Z 6894-11-50P92:45:58.000Z BP Sitting (Pre-Dialysis) 148/101 mmHg BP Sitting (Post-Dialysis) 121/57 mmHg Concurrent Access: falseAV Fistula Forearm (Left) Arterial BP Standing (Pre-Dialysis) 172/96 mmHg Sitti ng Heart Rate Post-Dialysis 84 BPM Sitting Heart Rate Pre-Dialysis 80 BPM Temperatu re Post-Dialysis 97.3 degF Standing Heart Rate Pre-Dialysis 110 BPM Temperature Pre-Dialysis 97.9 degF August 18, 2023 In-Center Hemodialysis Treatment 0993-73-87E38:00:00.000Z 4786-55-74O66:35:06.000Z BP Sitting (Pre-Dialysis) 157/77 mmHg BP Sitting (Post-Dialysis) 134/70 mmHg Concurrent Access: falseAV Fistula Forearm (Left) Arterial BP Standing (Pre-Dialysis) 169/82 mmHg BP Standing (P ost-Dialysis) 151/40 mmHg Sitting Heart Rate Pre-Dialysis 103 BPM Sitting Heart Rate Post-Dialysis 102 BPM Standing Heart Rate Pre-Dialysis 104 BPM Standing Heart Rate Post-Dialysis 90 BPM Temperature Pre-Dialysis 97.7 degF Temperature Post -Dialysis 97.3 degF August 16, 2023 In-Center Hemodialysis Treatment 1634-53-76C08:02:00.000Z 6683-89-21O42:27:37.000Z BP Sitting (Pre-Dialysis) 154/78 mmHg BP Sitting (Post-Dialysis) 138/43 mmHg Concurrent Access: falseAV Fistula Forearm (Left) Arterial BP Standing (Pre-Dialysis) 162/72 mmHg Sitti ng Heart Rate Post-Dialysis 100 BPM Sitting Heart Rate Pre-Dialysis 103 BPM Temperatu re Post-Dialysis 97.4 degF Standing Heart Rate Pre-Dialysis 107 BPM Temperature Pre-Dialysis 98 degF August 14, 2023 In-Center Hemodialysis Treatment 8901-56-51H55:03:27.000Z 7862-10-52Y25:18:52.000Z BP Sitting (Pre-Dialysis) 144/59 mmHg BP Sitting (Post-Dialysis) 134/60 mmHg Concurrent Access: falseAV Fistula Forearm (Left) Arterial Sitting Heart Rate Pre-Dialysis 100 BPM Sitting H eart Rate Post-Dialysis 92 BPM Temperature Pre-Dialysis 98.2 degF Temperature Post -Dialysis 98.2 degF August 11, 2023 In-Center Hemodialysis Treatment 0281-73-23C90:10:23.000Z 6187-99-52A60:30:23.000Z BP Sitting (Pre-Dialysis) 129/70 mmHg BP Sitting (Post-Dialysis) 125/63 mmHg Concurrent Access: falseAV Fistula Forearm (Left) Arterial Sitting Heart Rate Pre-Dialysis 98 BPM Sitting H eart Rate Post-Dialysis 90 BPM Temperature Pre-Dialysis 97.6 degF Temperature Post -Dialysis 97.8 degF August 10, 2023 Additional Day Of Dialysis Treatment 4128-46-95H11:55:32.000Z 5731-85-67U49:43:52.000Z BP Sitting (Pre-Dialysis) 167/63 mmHg BP Sitting (Post-Dialysis) 160/95 mmHg Concurrent Access: falseAV Fistula Forearm (Left) Arterial BP Standing (Pre-Dialysis) 123/47 mmHg Sitti ng Heart Rate Post-Dialysis 93 BPM Sitting Heart Rate Pre-Dialysis 110 BPM Temperatu re Post-Dialysis 97.6 degF Standing Heart Rate Pre-Dialysis 111 BPM Temperature Pre-Dialysis 97.6 degF August 09, 2023 In-Center Hemodialysis Treatment 4847-47-43C11:01:55.000Z 6829-42-89P25:16:30.000Z BP Sitting (Pre-Dialysis) 152/89 mmHg BP Sitting (Post-Dialysis) 126/57 mmHg Concurrent Access: falseAV Fistula Forearm (Left) Arterial Sitting Heart Rate Pre-Dialysis 108 BPM BP Standing (Post-Dialysis) 126/69 mmHg Temperature Pre-Dialysis 97.5 degF Sitting Heart Ra te Post-Dialysis 94 BPM Standing Heart Rate Post-Renay lysis 105 BPM Temperature Post-Dialysis 97 .5 degF August 07, 2023 In-Center Hemodialysis Treatment 3397-53-18I95:09:10.000Z 2864-44-59V27:29:35.000Z BP Sitting (Pre-Dialysis) 139/52 mmHg BP Sitting (Post-Dialysis) 121/73 mmHg Concurrent Access: falseAV Fistula Forearm (Left) Arterial Sitting Heart Rate Pre-Dialysis 102 BPM Sitting H eart Rate Post-Dialysis 64 BPM Temperature Pre-Dialysis 98 degF Temperature Post -Dialysis 98.7 degF August 04, 2023 In-Center Hemodialysis Treatment 0897-80-05U67:06:41.000Z 2471-98-19K32:20:51.000Z BP Sitting (Pre-Dialysis) 190/91 mmHg BP Sitting (Post-Dialysis) 125/86 mmHg Concurrent Access: falseAV Fistula Forearm (Left) Arterial BP Standing (Pre-Dialysis) 221/103 mmHg BP Standing (P ost-Dialysis) 139/81 mmHg Sitting Heart Rate Pre-Dialysis 109 BPM Sitting Heart Rate Post-Dialysis 66 BPM Standing Heart Rate Pre-Dialysis 116 BPM Standing Heart Rate Post-Dialysis 94 BPM Temperature Pre-Dialysis 97.7 degF Temperature Post -Dialysis 98 degF August 02, 2023 In-Center Hemodialysis Treatment 9694-00-15J83:54:43.000Z 5847-72-33U01:09:43.000Z BP Sitting (Pre-Dialysis) 161/69 mmHg BP Sitting (Post-Dialysis) 144/69 mmHg Concurrent Access: falseAV Fistula Forearm (Left) Arterial Sitting Heart Rate Pre-Dialysis 99 BPM Sitting H eart Rate Post-Dialysis 96 BPM Temperature Pre-Dialysis 98.4 degF Temperature Post -Dialysis 97.3 degF July 31, 2023 In-Center Hemodialysis Treatment 5987-49-21G55:00:00.000Z 3600-19-54U69:19:23.000Z BP Sitting (Pre-Dialysis) 165/70 mmHg BP Sitting (Post-Dialysis) 127/39 mmHg Concurrent Access: falseAV Fistula Forearm (Left) Arterial BP Standing (Pre-Dialysis) 157/84 mmHg Sitti ng Heart Rate Post-Dialysis 89 BPM Sitting Heart Rate Pre-Dialysis 96 BPM Temperatu re Post-Dialysis 98.4 degF Standing Heart Rate Pre-Dialysis 100 BPM Temperature Pre-Dialysis 98 degF July 28, 2023 In-Center Hemodialysis Treatment 4263-06-29A85:03:01.000Z 0403-87-42D30:20:06.000Z BP Sitting (Pre-Dialysis) 133/85 mmHg BP Sitting (Post-Dialysis) 148/86 mmHg Concurrent Access: falseAV Fistula Forearm (Left) Arterial Sitting Heart Rate Pre-Dialysis 90 BPM Sitting H eart Rate Post-Dialysis 108 BPM Temperature Pre-Dialysis 97.7 degF Temperature Post -Dialysis 97.8 degF July 26, 2023 In-Center Hemodialysis Treatment 6798-24-55I55:02:00.000Z 4562-87-18V08:19:24.000Z BP Sitting (Pre-Dialysis) 172/87 mmHg BP Sitting (Post-Dialysis) 155/45 mmHg Concurrent Access: falseAV Fistula Forearm (Left) Arterial BP Standing (Pre-Dialysis) 179/87 mmHg BP Standing (P ost-Dialysis) 156/54 mmHg Sitting Heart Rate Pre-Dialysis 96 BPM Sitting Heart Rate Post-Dialysis 102 BPM Standing Heart Rate Pre-Dialysis 102 BPM Standing Heart Rate Post-Dialysis 111 BPM Temperature Pre-Dialysis 97 degF Temperature Post -Dialysis 98.2 degF 2023 In-Center Hemodialysis Treatment 9284-54-65T22:01:30.000Z 7595-89-45P93:17:20.000Z BP Sitting (Pre-Dialysis) 136/83 mmHg BP Sitting (Post-Dialysis) 116/51 mmHg Concurrent Access: falseAV Fistula Forearm (Left) Arterial Sitting Heart Rate Pre-Dialysis 100 BPM Sitting H eart Rate Post-Dialysis 98 BPM Temperature Pre-Dialysis 98.1 degF Temperature Post -Dialysis 97.2 degF July 21, 2023 In-Center Hemodialysis Treatment 2096-15-62A73:00:48.000Z 6024-39-25M65:16:38.000Z BP Sitting (Pre-Dialysis) 158/67 mmHg BP Sitting (Post-Dialysis) 139/63 mmHg Concurrent Access: falseAV Fistula Forearm (Left) Arterial Sitting Heart Rate Pre-Dialysis 100 BPM Sitting H eart Rate Post-Dialysis 96 BPM Temperature Pre-Dialysis 97.7 degF Temperature Post -Dialysis 97.5 degF July 19, 2023 In-Center Hemodialysis Treatment 5701-81-16Q45:57:00.000Z 3535-04-42C29:18:54.000Z BP Sitting (Pre-Dialysis) 149/55 mmHg BP Sitting (Post-Dialysis) 134/59 mmHg Concurrent Access: falseAV Fistula Forearm (Left) Arterial Sitting Heart Rate Pre-Dialysis 92 BPM BP Standi ng (Post-Dialysis) 135/63 mmHg Temperature Pre-Dialysis 98 degF Sitting Heart Ra te Post-Dialysis 81 BPM Standing Heart Rate Post-Renay lysis 96 BPM Temperature Post-Dialysis 98 .1 degF July 17, 2023 In-Center Hemodialysis Treatment 8438-79-18U63:53:59.000Z 8067-21-87N08:11:54.000Z BP Sitting (Pre-Dialysis) 140/57 mmHg BP Sitting (Post-Dialysis) 123/45 mmHg Concurrent Access: falseAV Fistula Forearm (Left) Arterial Sitting Heart Rate Pre-Dialysis 115 BPM Sitting H eart Rate Post-Dialysis 109 BPM Temperature Pre-Dialysis 97.4 degF Temperature Post -Dialysis 97.2 degF July 14, 2023 In-Center Hemodialysis Treatment [id number]:59:00.000Z 4193-47-88P19:17:54.000Z BP Sitting (Pre-Dialysis) 181/92 mmHg BP Sitting (Post-Dialysis) 93/60 mmHg Concurrent Access: falseAV Fistula Forearm (Left) Arterial BP Standing (Pre-Dialysis) 149/87 mmHg BP Standing (P ost-Dialysis) 142/103 mmHg Sitting Heart Rate Pre-Dialysis 101 BPM Sitting Heart Rate Post-Dialysis 65 BPM Standing Heart Rate Pre-Dialysis 118 BPM Standing Heart Rate Post-Dialysis 112 BPM Temperature Pre-Dialysis 97.9 degF Temperature Post -Dialysis 98.2 degF July 12, 2023 In-Center Hemodialysis Treatment 5230-78-80J93:55:00.000Z 4595-31-22M31:21:52.000Z BP Sitting (Pre-Dialysis) 153/75 mmHg BP Sitting (Post-Dialysis) 120/58 mmHg Concurrent Access: falseAV Fistula Forearm (Left) Arterial BP Standing (Pre-Dialysis) 164/84 mmHg Sitti ng Heart Rate Post-Dialysis 97 BPM Sitting Heart Rate Pre-Dialysis 88 BPM Temperatu re Post-Dialysis 97.4 degF Standing Heart Rate Pre-Dialysis 96 BPM Temperature Pre-Dialysis 98 degF July 10, 2023 In-Center Hemodialysis Treatment 9928-03-45F03:57:00.000Z 4789-42-65G00:18:33.000Z BP Sitting (Pre-Dialysis) 156/82 mmHg BP Sitting (Post-Dialysis) 163/81 mmHg Concurrent Access: falseAV Fistula Forearm (Left) Arterial BP Standing (Pre-Dialysis) 170/92 mmHg Sitti ng Heart Rate Post-Dialysis 93 BPM Sitting Heart Rate Pre-Dialysis 97 BPM Temperatu re Post-Dialysis 98.8 degF Standing Heart Rate Pre-Dialysis 100 BPM Temperature Pre-Dialysis 97.6 degF July 07, 2023 In-Center Hemodialysis Treatment 6096-75-60K64:01:14.000Z 7823-71-04T39:18:44.000Z BP Sitting (Pre-Dialysis) 136/60 mmHg BP Sitting (Post-Dialysis) 162/75 mmHg Concurrent Access: falseAV Fistula Forearm (Left) Arterial Sitting Heart Rate Pre-Dialysis 90 BPM Sitting H eart Rate Post-Dialysis 85 BPM Temperature Pre-Dialysis 97.9 degF Temperature Post -Dialysis 97.7 degF July 05, 2023 In-Center Hemodialysis Treatment [id number]:42:19.000Z 5253-11-63K23:00:14.000Z BP Sitting (Pre-Dialysis) 162/67 mmHg BP Sitting (Post-Dialysis) 123/82 mmHg Concurrent Access: falseAV Fistula Forearm (Left) Arterial Sitting Heart Rate Pre-Dialysis 79 BPM Sitting H eart Rate Post-Dialysis 82 BPM Temperature Pre-Dialysis 97.2 degF Temperature Post -Dialysis 98.2 degF July 03, 2023 In-Center Hemodialysis Treatment 6706-40-36L30:59:00.000Z 5695-91-21Q60:20:20.000Z BP Sitting (Pre-Dialysis) 130/100 mmHg BP Sitting (Post-Dialysis) 113/93 mmHg Concurrent Access: falseAV Fistula Forearm (Left) Arterial Sitting Heart Rate Pre-Dialysis 85 BPM Sitting H eart Rate Post-Dialysis 101 BPM Temperature Pre-Dialysis 97.7 degF Temperature Post -Dialysis 98.7 degF June 30, 2023 In-Center Hemodialysis Treatment [id number]:07:05.000Z 1315-20-54V97:24:10.000Z BP Sitting (Pre-Dialysis) 159/65 mmHg BP Sitting (Post-Dialysis) 135/68 mmHg Concurrent Access: falseAV Fistula Forearm (Left) Arterial Sitting Heart Rate Pre-Dialysis 80 BPM Sitting H eart Rate Post-Dialysis 85 BPM Temperature Pre-Dialysis 97.9 degF Temperature Post -Dialysis 98.6 degF June 28, 2023 In-Center Hemodialysis Treatment [id number]:01:13.000Z 7692-70-40Y21:17:28.000Z BP Sitting (Pre-Dialysis) 164/72 mmHg BP Sitting (Post-Dialysis) 126/52 mmHg Concurrent Access: falseAV Fistula Forearm (Left) Arterial Sitting Heart Rate Pre-Dialysis 88 BPM Sitting H eart Rate Post-Dialysis 90 BPM Temperature Pre-Dialysis 97.2 degF Temperature Post -Dialysis 97.9 degF June 26, 2023 In-Center Hemodialysis Treatment 4488-36-12H94:55:00.000Z 3784-00-52S52:19:26.000Z BP Sitting (Pre-Dialysis) 126/55 mmHg BP Sitting (Post-Dialysis) 120/50 mmHg Concurrent Access: falseAV Fistula Forearm (Left) Arterial Sitting Heart Rate Pre-Dialysis 91 BPM Sitting H eart Rate Post-Dialysis 82 BPM Temperature Pre-Dialysis 97.7 degF Temperature Post -Dialysis 97.8 degF June 23, 2023 In-Center Hemodialysis Treatment 3744-33-14Q77:00:03.000Z 3258-67-55B53:24:00.000Z BP Sitting (Pre-Dialysis) 166/75 mmHg BP Sitting (Post-Dialysis) 120/54 mmHg Concurrent Access: falseAV Fistula Forearm (Left) Arterial Sitting Heart Rate Pre-Dialysis 84 BPM Sitting H eart Rate Post-Dialysis 87 BPM Temperature Pre-Dialysis 97.9 degF Temperature Post -Dialysis 97.1 degF June 21, 2023 In-Center Hemodialysis Treatment 0196-47-14L38:56:02.000Z 5346-61-26N10:17:42.000Z BP Sitting (Pre-Dialysis) 158/82 mmHg BP Sitting (Post-Dialysis) 110/77 mmHg Concurrent Access: falseAV Fistula Forearm (Left) Arterial Sitting Heart Rate Pre-Dialysis 72 BPM Sitting H eart Rate Post-Dialysis 79 BPM Temperature Pre-Dialysis 97.5 degF Temperature Post -Dialysis 96.6 degF June 19, 2023 In-Center Hemodialysis Treatment 8990-47-12Q77:58:00.000Z 6833-38-25M65:18:00.000Z BP Sitting (Pre-Dialysis) 131/77 mmHg BP Sitting (Post-Dialysis) 114/64 mmHg Concurrent Access: falseAV Fistula Forearm (Left) Arterial Sitting Heart Rate Pre-Dialysis 72 BPM Sitting H eart Rate Post-Dialysis 76 BPM Temperature Pre-Dialysis 97.6 degF Temperature Post -Dialysis 97.9 degF June 16, 2023 In-Center Hemodialysis Treatment 4391-85-32O94:01:22.000Z 3326-22-12Y84:15:32.000Z BP Sitting (Pre-Dialysis) 132/69 mmHg BP Sitting (Post-Dialysis) 121/57 mmHg Concurrent Access: falseAV Fistula Forearm (Left) Arterial Sitting Heart Rate Pre-Dialysis 72 BPM Sitting H eart Rate Post-Dialysis 71 BPM Temperature Pre-Dialysis 97.9 degF Temperature Post -Dialysis 97.2 degF June 14, 2023 In-Center Hemodialysis Treatment 1574-74-42T84:59:15.000Z 8674-61-04X02:19:11.000Z BP Sitting (Pre-Dialysis) 152/75 mmHg BP Sitting (Post-Dialysis) 108/43 mmHg Concurrent Access: falseAV Fistula Forearm (Left) Arterial Sitting Heart Rate Pre-Dialysis 80 BPM Sitting H eart Rate Post-Dialysis 82 BPM Temperature Pre-Dialysis 97.2 degF Temperature Post -Dialysis 98.1 degF June 12, 2023 In-Center Hemodialysis Treatment 6153-12-37X09:00:00.000Z 3775-57-50M09:21:53.000Z BP Sitting (Pre-Dialysis) 147/79 mmHg BP Sitting (Post-Dialysis) 110/81 mmHg Concurrent Access: falseAV Fistula Forearm (Left) Arterial Sitting Heart Rate Pre-Dialysis 90 BPM Sitting H eart Rate Post-Dialysis 85 BPM Temperature Pre-Dialysis 97.2 degF Temperature Post -Dialysis 97.2 degF June 09, 2023 In-Center Hemodialysis Treatment 3352-50-58V57:59:32.000Z 4939-86-28I33:18:17.000Z BP Sitting (Pre-Dialysis) 138/64 mmHg BP Sitting (Post-Dialysis) 104/52 mmHg Concurrent Access: falseAV Fistula Forearm (Left) Arterial Sitting Heart Rate Pre-Dialysis 77 BPM Sitting H eart Rate Post-Dialysis 95 BPM Temperature Pre-Dialysis 97 degF Temperature Post -Dialysis 97.2 degF June 07, 2023 In-Center Hemodialysis Treatment 1089-72-15E54:06:00.000Z 6130-12-94K74:25:41.000Z BP Sitting (Pre-Dialysis) 137/68 mmHg BP Sitting (Post-Dialysis) 118/75 mmHg Concurrent Access: falseAV Fistula Forearm (Left) Arterial Sitting Heart Rate Pre-Dialysis 81 BPM Sitting H eart Rate Post-Dialysis 57 BPM Temperature Pre-Dialysis 97.4 degF Temperature Post -Dialysis 97.3 degF June 05, 2023 In-Center Hemodialysis Treatment 6982-02-30B29:04:00.000Z 7360-10-97X71:23:03.000Z BP Sitting (Pre-Dialysis) 180/79 mmHg BP Sitting (Post-Dialysis) 122/58 mmHg Concurrent Access: falseAV Fistula Forearm (Left) Arterial Sitting Heart Rate Pre-Dialysis 92 BPM Sitting H eart Rate Post-Dialysis 82 BPM Temperature Pre-Dialysis 97.7 degF Temperature Post -Dialysis 97 degF June 02, 2023 In-Center Hemodialysis Treatment [id number]:58:43.000Z 6726-58-86D19:17:03.000Z BP Sitting (Pre-Dialysis) 157/65 mmHg BP Sitting (Post-Dialysis) 125/59 mmHg Concurrent Access: falseAV Fistula Forearm (Left) Arterial Sitting Heart Rate Pre-Dialysis 72 BPM Sitting H eart Rate Post-Dialysis 77 BPM Temperature Pre-Dialysis 97.7 degF Temperature Post -Dialysis 97.2 degF May 31, 2023 In-Center Hemodialysis Treatment 1947-04-12X22:00:21.000Z 4742-69-85U79:17:01.000Z BP Sitting (Pre-Dialysis) 145/81 mmHg BP Sitting (Post-Dialysis) 118/54 mmHg Concurrent Access: falseAV Fistula Forearm (Left) Arterial Sitting Heart Rate Pre-Dialysis 81 BPM Sitting H eart Rate Post-Dialysis 87 BPM Temperature Pre-Dialysis 97.6 degF Temperature Post -Dialysis 97.4 degF May 29, 2023 In-Center Hemodialysis Treatment 5935-44-29J28:58:00.000Z 5416-47-92Z69:18:18.000Z BP Sitting (Pre-Dialysis) 158/74 mmHg BP Sitting (Post-Dialysis) 138/70 mmHg Concurrent Access: falseAV Fistula Forearm (Left) Arterial Sitting Heart Rate Pre-Dialysis 79 BPM Sitting H eart Rate Post-Dialysis 74 BPM Temperature Pre-Dialysis 97.9 degF Temperature Post -Dialysis 97.3 degF May 26, 2023 In-Center Hemodialysis Treatment 7060-73-19W69:52:21.000Z 7961-96-13I71:07:56.000Z BP Sitting (Pre-Dialysis) 165/75 mmHg BP Sitting (Post-Dialysis) 104/46 mmHg Concurrent Access: falseAV Fistula Forearm (Left) Arterial Sitting Heart Rate Pre-Dialysis 77 BPM Sitting H eart Rate Post-Dialysis 79 BPM Temperature Pre-Dialysis 96.3 degF Temperature Post -Dialysis 98.3 degF May 24, 2023 In-Center Hemodialysis Treatment 4566-37-63N64:01:28.000Z 3657-84-22F93:18:33.000Z BP Sitting (Pre-Dialysis) 140/69 mmHg BP Sitting (Post-Dialysis) 127/53 mmHg Concurrent Access: falseAV Fistula Forearm (Left) Arterial Sitting Heart Rate Pre-Dialysis 76 BPM Sitting H eart Rate Post-Dialysis 73 BPM Temperature Pre-Dialysis 96.4 degF Temperature Post -Dialysis 97.3 degF May 22, 2023 In-Center Hemodialysis Treatment 2297-95-69R07:02:12.000Z 8178-54-15Z27:20:07.000Z BP Sitting (Pre-Dialysis) 146/72 mmHg BP Sitting (Post-Dialysis) 110/63 mmHg Concurrent Access: falseAV Fistula Forearm (Left) Arterial Sitting Heart Rate Pre-Dialysis 69 BPM Sitting H eart Rate Post-Dialysis 73 BPM Temperature Pre-Dialysis 97.1 degF Temperature Post -Dialysis 97.2 degF May 19, 2023 In-Center Hemodialysis Treatment 4659-83-76R52:02:56.000Z 6151-17-05S58:19:11.000Z BP Sitting (Pre-Dialysis) 150/67 mmHg BP Sitting (Post-Dialysis) 119/61 mmHg Concurrent Access: falseAV Fistula Forearm (Left) Arterial Sitting Heart Rate Pre-Dialysis 93 BPM Sitting H eart Rate Post-Dialysis 78 BPM Temperature Pre-Dialysis 97.1 degF Temperature Post -Dialysis 97.7 degF May 17, 2023 In-Center Hemodialysis Treatment 6591-22-57A99:07:16.000Z 1767-69-02V88:26:01.000Z BP Sitting (Pre-Dialysis) 163/76 mmHg BP Sitting (Post-Dialysis) 104/69 mmHg Concurrent Access: falseAV Fistula Forearm (Left) Arterial Sitting Heart Rate Pre-Dialysis 79 BPM Sitting H eart Rate Post-Dialysis 97 BPM Temperature Pre-Dialysis 96.4 degF Temperature Post -Dialysis 97.2 degF May 15, 2023 In-Center Hemodialysis Treatment 8278-78-62L75:02:00.000Z 3326-28-01C56:19:52.000Z BP Sitting (Pre-Dialysis) 144/69 mmHg BP Sitting (Post-Dialysis) 128/55 mmHg Concurrent Access: falseAV Fistula Forearm (Left) Arterial Sitting Heart Rate Pre-Dialysis 70 BPM Sitting H eart Rate Post-Dialysis 78 BPM Temperature Pre-Dialysis 96.9 degF Temperature Post -Dialysis 97.3 degF May 12, 2023 In-Center Hemodialysis Treatment 9877-38-62N48:00:05.000Z 5700-12-24O39:24:40.000Z BP Sitting (Pre-Dialysis) 141/83 mmHg BP Sitting (Post-Dialysis) 108/49 mmHg Concurrent Access: falseAV Fistula Forearm (Left) Arterial Sitting Heart Rate Pre-Dialysis 80 BPM Sitting H eart Rate Post-Dialysis 78 BPM Temperature Pre-Dialysis 97.2 degF Temperature Post -Dialysis 97.2 degF May 10, 2023 In-Center Hemodialysis Treatment 0850-76-42G68:07:20.000Z 1600-90-63C28:22:20.000Z BP Sitting (Pre-Dialysis) 188/64 mmHg BP Sitting (Post-Dialysis) 123/69 mmHg Concurrent Access: falseAV Fistula Forearm (Left) Arterial Sitting Heart Rate Pre-Dialysis 92 BPM Sitting H eart Rate Post-Dialysis 57 BPM Temperature Pre-Dialysis 96.4 degF Temperature Post -Dialysis 97.2 degF May 08, 2023 In-Center Hemodialysis Treatment 7863-02-06Q27:04:00.000Z 6667-51-16C28:22:16.000Z BP Sitting (Pre-Dialysis) 147/62 mmHg BP Sitting (Post-Dialysis) 131/54 mmHg Concurrent Access: falseAV Fistula Forearm (Left) Arterial Sitting Heart Rate Pre-Dialysis 88 BPM Sitting H eart Rate Post-Dialysis 84 BPM Temperature Pre-Dialysis 97.3 degF Temperature Post -Dialysis 97.1 degF May 05, 2023 In-Center Hemodialysis Treatment 9372-73-30T37:00:52.000Z 9256-66-19R36:16:42.000Z BP Sitting (Pre-Dialysis) 109/54 mmHg BP Sitting (Post-Dialysis) 136/55 mmHg Concurrent Access: falseAV Fistula Forearm (Left) Arterial Sitting Heart Rate Pre-Dialysis 77 BPM Sitting H eart Rate Post-Dialysis 90 BPM Temperature Pre-Dialysis 97.3 degF Temperature Post -Dialysis 97.6 degF May 03, 2023 In-Center Hemodialysis Treatment 2470-30-39I95:59:43.000Z 7440-23-90K77:18:03.000Z BP Sitting (Pre-Dialysis) 151/79 mmHg BP Sitting (Post-Dialysis) 134/61 mmHg Concurrent Access: falseAV Fistula Forearm (Left) Arterial Sitting Heart Rate Pre-Dialysis 85 BPM Sitting H eart Rate Post-Dialysis 66 BPM Temperature Pre-Dialysis 97.3 degF Temperature Post -Dialysis 97.2 degF May 01, 2023 In-Center Hemodialysis Treatment 6296-35-02D07:08:00.000Z 1672-11-88V14:21:27.000Z BP Sitting (Pre-Dialysis) 132/59 mmHg BP Sitting (Post-Dialysis) 127/57 mmHg Concurrent Access: falseAV Fistula Forearm (Left) Arterial Sitting Heart Rate Pre-Dialysis 81 BPM Sitting H eart Rate Post-Dialysis 76 BPM Temperature Pre-Dialysis 97 degF Temperature Post -Dialysis 97.4 degF April 28, 2023 In-Center Hemodialysis Treatment 9123-80-08H36:57:42.000Z 2488-18-37S66:16:02.000Z BP Sitting (Pre-Dialysis) 149/61 mmHg BP Sitting (Post-Dialysis) 91/52 mmHg Concurrent Access: falseAV Fistula Forearm (Left) Arterial Sitting Heart Rate Pre-Dialysis 90 BPM Sitting H eart Rate Post-Dialysis 84 BPM Temperature Pre-Dialysis 97.3 degF Temperature Post -Dialysis 98 degF April 26, 2023 In-Center Hemodialysis Treatment 5766-75-24Z07:05:59.000Z 3319-64-83F43:20:34.000Z BP Sitting (Pre-Dialysis) 117/68 mmHg BP Sitting (Post-Dialysis) 148/58 mmHg Concurrent Access: falseAV Fistula Forearm (Left) Arterial Sitting Heart Rate Pre-Dialysis 96 BPM Sitting H eart Rate Post-Dialysis 74 BPM Temperature Pre-Dialysis 96.5 degF Temperature Post -Dialysis 97.6 degF April 08, 2023 In-Center Hemodialysis Treatment 0544-73-16O21:24:00.000Z 0589-43-48P89:25:20.000Z BP Sitting (Pre-Dialysis) 190/80 mmHg BP Sitting (Post-Dialysis) 154/90 mmHg Concurrent Access: falseAV Fistula Forearm (Left) Arterial Sitting Heart Rate Pre-Dialysis 91 BPM Sitting H eart Rate Post-Dialysis 84 BPM Temperature Pre-Dialysis 97 degF Temperature Post -Dialysis 98.2 degF April 05, 2023 In-Center Hemodialysis Treatment 1176-44-96H56:03:00.000Z 3040-66-91I60:23:18.000Z BP Sitting (Pre-Dialysis) 169/94 mmHg BP Sitting (Post-Dialysis) 176/52 mmHg Concurrent Access: falseAV Fistula Forearm (Left) Arterial BP Standing (Pre-Dialysis) 178/85 mmHg Sitting Heart Rate Post-Dialysis 88 BPM Sitting Heart Rate Pre-Dialysis 93 BPM Temperatu re Post-Dialysis 98 degF Standing Heart Rate Pre-Dialysis 95 BPM Temperature Pre-Dialysis 98.2 degF April 03, 2023 In-Center Hemodialysis Treatment 3460-77-21V20:50:00.000Z 9591-13-56T96:47:00.000Z BP Sitting (Pre-Dialysis) 197/102 mmHg BP Sitting (Post-Dialysis) 142/69 mmHg Concurrent Access: falseAV Fistula Forearm (Left) Arterial BP Standing (Pre-Dialysis) 154/113 mmHg BP Standing (P ost-Dialysis) 170/93 mmHg Sitting Heart Rate Pre-Dialysis 89 BPM Sitting Heart Rate Post-Dialysis 80 BPM Standing Heart Rate Pre-Dialysis 95 BPM Standing Heart Rate Post-Dialysis 88 BPM Temperature Pre-Dialysis 97.8 degF Temperature Post -Dialysis 98.1 degF March 31, 2023 In-Center Hemodialysis Treatment 3820-36-83R93:02:50.000Z 4836-22-54Y29:19:55.000Z BP Sitting (Pre-Dialysis) 171/87 mmHg BP Sitting (Post-Dialysis) 107/84 mmHg Concurrent Access: falseAV Fistula Forearm (Left) Arterial BP Standing (Pre-Dialysis) 178/93 mmHg BP Standing (P ost-Dialysis) 141/67 mmHg Sitting Heart Rate Pre-Dialysis 84 BPM Sitting Heart Rate Post-Dialysis 75 BPM Standing Heart Rate Pre-Dialysis 88 BPM Standing Heart Rate Post-Dialysis 97 BPM Temperature Pre-Dialysis 98 degF Temperature Post -Dialysis 98 degF March 29, 2023 In-Center Hemodialysis Treatment 6431-25-67B96:01:00.000Z 7535-23-03C61:21:33.000Z BP Sitting (Pre-Dialysis) 142/51 mmHg BP Sitting (Post-Dialysis) 145/56 mmHg Concurrent Access: falseAV Fistula Forearm (Left) Arterial Sitting Heart Rate Pre-Dialysis 81 BPM BP Standing (Post-Dialysis) 138/60 mmHg Temperature Pre-Dialysis 97.7 degF Sitting Heart Ra te Post-Dialysis 80 BPM Standing Heart Rate Post-Renay lysis 91 BPM Temperature Post-Dialysis 98 .5 degF March 27, 2023 In-Center Hemodialysis Treatment 5699-88-22A11:08:00.000Z 9358-49-74O55:20:30.000Z BP Sitting (Pre-Dialysis) 133/58 mmHg BP Sitting (Post-Dialysis) 119/56 mmHg Concurrent Access: falseAV Fistula Forearm (Left) Arterial BP Standing (Pre-Dialysis) 131/72 mmHg BP Standing (P ost-Dialysis) 129/62 mmHg Sitting Heart Rate Pre-Dialysis 72 BPM Sitting Heart Rate Post-Dialysis 73 BPM Standing Heart Rate Pre-Dialysis 73 BPM Standing Heart Rate Post-Dialysis 85 BPM Temperature Pre-Dialysis 97.3 degF Temperature Post -Dialysis 97.3 degF March 24, 2023 In-Center Hemodialysis Treatment 3706-04-61D91:03:00.000Z 5530-92-51C30:19:40.000Z BP Sitting (Pre-Dialysis) 154/65 mmHg BP Sitting (Post-Dialysis) 148/58 mmHg Concurrent Access: falseAV Fistula Forearm (Left) Arterial BP Standing (Pre-Dialysis) 135/62 mmHg BP Standing (P ost-Dialysis) 126/48 mmHg Sitting Heart Rate Pre-Dialysis 80 BPM Sitting Heart Rate Post-Dialysis 75 BPM Standing Heart Rate Pre-Dialysis 92 BPM Standing Heart Rate Post-Dialysis 91 BPM Temperature Pre-Dialysis 96.2 degF Temperature Post -Dialysis 97.5 degF March 22, 2023 In-Center Hemodialysis Treatment 5324-12-98A01:02:00.000Z 9872-74-07F31:19:05.000Z BP Sitting (Pre-Dialysis) 138/61 mmHg BP Sitting (Post-Dialysis) 107/54 mmHg Concurrent Access: falseAV Fistula Forearm (Left) Arterial BP Standing (Pre-Dialysis) 139/75 mmHg BP Standing (P ost-Dialysis) 126/42 mmHg Sitting Heart Rate Pre-Dialysis 82 BPM Sitting Heart Rate Post-Dialysis 74 BPM Standing Heart Rate Pre-Dialysis 89 BPM Standing Heart Rate Post-Dialysis 83 BPM Temperature Pre-Dialysis 97.3 degF Temperature Post -Dialysis 98.1 degF March 20, 2023 In-Center Hemodialysis Treatment 6588-47-16A07:04:00.000Z 3037-28-67T67:23:57.000Z BP Sitting (Pre-Dialysis) 130/74 mmHg BP Sitting (Post-Dialysis) 122/53 mmHg Concurrent Access: falseAV Fistula Forearm (Left) Arterial Sitting Heart Rate Pre-Dialysis 76 BPM BP Standing (Post-Dialysis) 113/54 mmHg Temperature Pre-Dialysis 97.3 degF Sitting Heart Ra te Post-Dialysis 72 BPM Standing Heart Rate Post-Renay lysis 87 BPM Temperature Post-Dialysis 97 .3 degF March 17, 2023 In-Center Hemodialysis Treatment 6624-81-41M14:11:28.000Z 8076-63-50A94:25:39.000Z BP Sitting (Pre-Dialysis) 146/56 mmHg BP Sitting (Post-Dialysis) 121/61 mmHg Concurrent Access: falseAV Fistula Forearm (Left) Arterial BP Standing (Pre-Dialysis) 136/80 mmHg Sitti ng Heart Rate Post-Dialysis 78 BPM Sitting Heart Rate Pre-Dialysis 84 BPM Temperatu re Post-Dialysis 97.4 degF Standing Heart Rate Pre-Dialysis 89 BPM Temperature Pre-Dialysis 97.2 degF March 15, 2023 In-Center Hemodialysis Treatment 9927-16-93H22:09:48.000Z 7441-25-20L72:28:33.000Z BP Sitting (Pre-Dialysis) 119/59 mmHg BP Sitting (Post-Dialysis) 116/67 mmHg Concurrent Access: falseAV Fistula Forearm (Left) Arterial BP Standing (Pre-Dialysis) 156/95 mmHg BP Standing (P ost-Dialysis) 144/83 mmHg Sitting Heart Rate Pre-Dialysis 83 BPM Sitting Heart Rate Post-Dialysis 69 BPM Standing Heart Rate Pre-Dialysis 90 BPM Standing Heart Rate Post-Dialysis 55 BPM Temperature Pre-Dialysis 97.2 degF Temperature Post -Dialysis 97.7 degF March 13, 2023 In-Center Hemodialysis Treatment 8918-57-64W90:12:20.000Z 2319-01-68E37:30:15.000Z BP Sitting (Pre-Dialysis) 169/76 mmHg BP Sitting (Post-Dialysis) 123/55 mmHg Concurrent Access: falseAV Fistula Forearm (Left) Arterial BP Standing (Pre-Dialysis) 167/78 mmHg Sitti ng Heart Rate Post-Dialysis 84 BPM Sitting Heart Rate Pre-Dialysis 86 BPM Temperatu re Post-Dialysis 97.2 degF Standing Heart Rate Pre-Dialysis 81 BPM Temperature Pre-Dialysis 97.6 degF March 10, 2023 In-Center Hemodialysis Treatment 3265-32-02P63:05:00.000Z 0959-39-20B94:21:11.000Z BP Sitting (Pre-Dialysis) 176/86 mmHg BP Sitting (Post-Dialysis) 159/58 mmHg Concurrent Access: falseAV Fistula Forearm (Left) Arterial BP Standing (Pre-Dialysis) 155/84 mmHg BP Standing (P ost-Dialysis) 140/67 mmHg Sitting Heart Rate Pre-Dialysis 85 BPM Sitting Heart Rate Post-Dialysis 78 BPM Standing Heart Rate Pre-Dialysis 94 BPM Standing Heart Rate Post-Dialysis 93 BPM Temperature Pre-Dialysis 97.6 degF Temperature Post -Dialysis 97.3 degF March 08, 2023 In-Center Hemodialysis Treatment 3867-13-74N06:15:00.000Z 8591-92-91G47:28:39.000Z BP Sitting (Pre-Dialysis) 174/84 mmHg BP Sitting (Post-Dialysis) 155/82 mmHg Concurrent Access: falseAV Fistula Forearm (Left) Arterial Sitting Heart Rate Pre-Dialysis 86 BPM BP Standing (Post-Dialysis) 156/79 mmHg Temperature Pre-Dialysis 97.6 degF Sitting Heart Ra te Post-Dialysis 79 BPM Standing Heart Rate Post-Renay lysis 80 BPM Temperature Post-Dialysis 98 .1 degF March 03, 2023 In-Center Hemodialysis Treatment 2581-32-33C25:04:39.000Z 3510-39-27D77:21:19.000Z BP Sitting (Pre-Dialysis) 162/69 mmHg BP Sitting (Post-Dialysis) 128/53 mmHg Concurrent Access: falseAV Fistula Forearm (Left) Arterial Sitting Heart Rate Pre-Dialysis 94 BPM BP Standing (Post-Dialysis) 140/63 mmHg Temperature Pre-Dialysis 98.2 degF Sitting Heart Ra te Post-Dialysis 75 BPM Standing Heart Rate Post-Renay lysis 95 BPM Temperature Post-Dialysis 97 .9 degF March 01, 2023 In-Center Hemodialysis Treatment 5341-08-56Q25:04:06.000Z 8445-16-21L89:22:01.000Z BP Sitting (Pre-Dialysis) 152/76 mmHg BP Sitting (Post-Dialysis) 137/69 mmHg Concurrent Access: falseAV Fistula Forearm (Left) Arterial BP Standing (Pre-Dialysis) 173/101 mmHg BP Standing (P ost-Dialysis) 188/87 mmHg Sitting Heart Rate Pre-Dialysis 87 BPM Sitting Heart Rate Post-Dialysis 78 BPM Standing Heart Rate Pre-Dialysis 96 BPM Standing Heart Rate Post-Dialysis 97 BPM Temperature Pre-Dialysis 97.6 degF Temperature Post -Dialysis 97.2 degF February 27, 2023 In-Center Hemodialysis Treatment 0146-33-88X03:05:30.000Z 5532-48-33T31:21:20.000Z BP Sitting (Pre-Dialysis) 165/71 mmHg BP Sitting (Post-Dialysis) 130/55 mmHg Concurrent Access: falseAV Fistula Forearm (Left) Arterial BP Standing (Pre-Dialysis) 167/86 mmHg BP Standing (P ost-Dialysis) 137/61 mmHg Sitting Heart Rate Pre-Dialysis 89 BPM Sitting Heart Rate Post-Dialysis 80 BPM Standing Heart Rate Pre-Dialysis 96 BPM Standing Heart Rate Post-Dialysis 96 BPM Temperature Pre-Dialysis 96.5 degF Temperature Post -Dialysis 98.5 degF February 24, 2023 In-Center Hemodialysis Treatment 3057-34-84E06:07:24.000Z 5552-48-05T36:26:59.000Z BP Sitting (Pre-Dialysis) 126/75 mmHg BP Sitting (Post-Dialysis) 135/107 mmHg Concurrent Access: falseAV Fistula Forearm (Left) Arterial BP Standing (Pre-Dialysis) 136/83 mmHg BP Standing (P ost-Dialysis) 146/74 mmHg Sitting Heart Rate Pre-Dialysis 89 BPM Sitting Heart Rate Post-Dialysis 86 BPM Standing Heart Rate Pre-Dialysis 90 BPM Standing Heart Rate Post-Dialysis 95 BPM Temperature Pre-Dialysis 97.3 degF Temperature Post -Dialysis 98.1 degF February 22, 2023 In-Center Hemodialysis Treatment 1978-86-78F31:10:00.000Z 3151-18-24P61:28:38.000Z BP Sitting (Pre-Dialysis) 167/60 mmHg BP Sitting (Post-Dialysis) 143/70 mmHg Concurrent Access: falseAV Fistula Forearm (Left) Arterial BP Standing (Pre-Dialysis) 179/104 mmHg Sitti ng Heart Rate Post-Dialysis 79 BPM Sitting Heart Rate Pre-Dialysis 86 BPM Temperatu re Post-Dialysis 98.4 degF Standing Heart Rate Pre-Dialysis 96 BPM Temperature Pre-Dialysis 97.4 degF February 19, 2023 In-Center Hemodialysis Treatment 5577-85-94W07:00:00.000Z 4501-06-09Q69:18:50.000Z BP Sitting (Pre-Dialysis) 105/59 mmHg BP Sitting (Post-Dialysis) 138/76 mmHg Concurrent Access: falseAV Fistula Forearm (Left) Arterial BP Standing (Pre-Dialysis) 129/55 mmHg Sitting Heart Rate Post-Dialysis 78 BPM Sitting Heart Rate Pre-Dialysis 102 BPM Standing Heart Rate Pre-Dialysis 100 BPM Temperature Pre-Dialysis 98.2 degF February 17, 2023 In-Center Hemodialysis Treatment 9932-61-93Y11:09:51.000Z 4435-37-45G82:26:56.000Z BP Sitting (Pre-Dialysis) 161/77 mmHg BP Sitting (Post-Dialysis) 145/91 mmHg Concurrent Access: falseAV Fistula Forearm (Left) Arterial BP Standing (Pre-Dialysis) 153/78 mmHg Sitti ng Heart Rate Post-Dialysis 81 BPM Sitting Heart Rate Pre-Dialysis 97 BPM Temperatu re Post-Dialysis 97.7 degF Standing Heart Rate Pre-Dialysis 67 BPM Temperature Pre-Dialysis 98 degF February 15, 2023 In-Center Hemodialysis Treatment 5846-33-68R59:09:33.000Z 6334-98-60A58:29:58.000Z BP Sitting (Pre-Dialysis) 182/89 mmHg BP Sitting (Post-Dialysis) 143/62 mmHg Concurrent Access: falseAV Fistula Forearm (Left) Arterial BP Standing (Pre-Dialysis) 163/86 mmHg BP Standing (P ost-Dialysis) 148/89 mmHg Sitting Heart Rate Pre-Dialysis 85 BPM Sitting Heart Rate Post-Dialysis 76 BPM Standing Heart Rate Pre-Dialysis 86 BPM Standing Heart Rate Post-Dialysis 80 BPM Temperature Pre-Dialysis 97.8 degF Temperature Post -Dialysis 98.1 degF February 12, 2023 In-Center Hemodialysis Treatment [id number]:09:00.000Z 8957-90-02M45:29:46.000Z BP Sitting (Pre-Dialysis) 128/69 mmHg BP Sitting (Post-Dialysis) 114/51 mmHg Concurrent Access: falseAV Fistula Forearm (Left) Arterial BP Standing (Pre-Dialysis) 145/77 mmHg BP Standing (P ost-Dialysis) 139/68 mmHg Sitting Heart Rate Pre-Dialysis 73 BPM Sitting Heart Rate Post-Dialysis 78 BPM Standing Heart Rate Pre-Dialysis 87 BPM Standing Heart Rate Post-Dialysis 94 BPM Temperature Pre-Dialysis 97.4 degF Temperature Post -Dialysis 97.4 degF February 10, 2023 In-Center Hemodialysis Treatment [id number]:01:30.000Z 4447-20-85Z78:24:00.000Z BP Sitting (Pre-Dialysis) 153/77 mmHg BP Sitting (Post-Dialysis) 161/72 mmHg Concurrent Access: falseAV Fistula Forearm (Left) Arterial BP Standing (Pre-Dialysis) 169/77 mmHg Sitti ng Heart Rate Post-Dialysis 85 BPM Sitting Heart Rate Pre-Dialysis 81 BPM Temperatu re Post-Dialysis 97.2 degF Standing Heart Rate Pre-Dialysis 93 BPM Temperature Pre-Dialysis 97.6 degF February 08, 2023 In-Center Hemodialysis Treatment 5134-07-43W73:08:13.000Z 9688-44-04M49:24:53.000Z BP Sitting (Pre-Dialysis) 132/70 mmHg BP Sitting (Post-Dialysis) 183/84 mmHg Concurrent Access: falseAV Fistula Forearm (Left) Arterial BP Standing (Pre-Dialysis) 161/80 mmHg BP Standing (P ost-Dialysis) 153/78 mmHg Sitting Heart Rate Pre-Dialysis 89 BPM Sitting Heart Rate Post-Dialysis 76 BPM Standing Heart Rate Pre-Dialysis 92 BPM Standing Heart Rate Post-Dialysis 85 BPM Temperature Pre-Dialysis 97.6 degF Temperature Post -Dialysis 98 degF February 06, 2023 In-Center Hemodialysis Treatment [id number]:03:00.000Z 0423-44-69J33:23:02.000Z BP Sitting (Pre-Dialysis) 166/60 mmHg BP Sitting (Post-Dialysis) 138/64 mmHg Concurrent Access: falseAV Fistula Forearm (Left) Arterial BP Standing (Pre-Dialysis) 175/68 mmHg BP Standing (P ost-Dialysis) 136/63 mmHg Sitting Heart Rate Pre-Dialysis 87 BPM Sitting Heart Rate Post-Dialysis 83 BPM Standing Heart Rate Pre-Dialysis 92 BPM Standing Heart Rate Post-Dialysis 93 BPM Temperature Pre-Dialysis 97.5 degF Temperature Post -Dialysis 97.7 degF February 03, 2023 In-Center Hemodialysis Treatment 3625-55-33D76:00:00.000Z 9640-71-35I48:20:30.000Z BP Sitting (Pre-Dialysis) 149/68 mmHg BP Sitting (Post-Dialysis) 117/64 mmHg Concurrent Access: falseAV Fistula Forearm (Left) Arterial BP Standing (Pre-Dialysis) 174/78 mmHg Sitti ng Heart Rate Post-Dialysis 75 BPM Sitting Heart Rate Pre-Dialysis 80 BPM Temperatu re Post-Dialysis 97.1 degF Standing Heart Rate Pre-Dialysis 102 BPM Temperature Pre-Dialysis 98.2 degF February 01, 2023 In-Center Hemodialysis Treatment [id number]:07:21.000Z 6436-64-90C50:09:01.000Z BP Sitting (Pre-Dialysis) 158/127 mmHg BP Sitting (Post-Dialysis) 130/73 mmHg Concurrent Access: falseAV Fistula Forearm (Left) Arterial BP Standing (Pre-Dialysis) 155/88 mmHg BP Standing (P ost-Dialysis) 149/57 mmHg Sitting Heart Rate Pre-Dialysis 58 BPM Sitting Heart Rate Post-Dialysis 91 BPM Standing Heart Rate Pre-Dialysis 96 BPM Standing Heart Rate Post-Dialysis 98 BPM Temperature Pre-Dialysis 97.9 degF Temperature Post -Dialysis 98.1 degF January 30, 2023 In-Center Hemodialysis Treatment 2315-55-06V06:11:00.000Z 7740-51-16P43:12:33.000Z BP Sitting (Pre-Dialysis) 153/63 mmHg BP Sitting (Post-Dialysis) 133/56 mmHg Concurrent Access: falseAV Fistula Forearm (Left) Arterial BP Standing (Pre-Dialysis) 149/87 mmHg Sitti ng Heart Rate Post-Dialysis 75 BPM Sitting Heart Rate Pre-Dialysis 84 BPM Temperatu re Post-Dialysis 97.4 degF Standing Heart Rate Pre-Dialysis 97 BPM Temperature Pre-Dialysis 98 degF January 27, 2023 In-Center Hemodialysis Treatment 9979-77-29R36:04:00.000Z 6717-01-14G68:24:50.000Z BP Sitting (Pre-Dialysis) 158/70 mmHg BP Sitting (Post-Dialysis) 144/58 mmHg Concurrent Access: falseAV Fistula Forearm (Left) Arterial BP Standing (Pre-Dialysis) 169/82 mmHg Sitti ng Heart Rate Post-Dialysis 76 BPM Sitting Heart Rate Pre-Dialysis 81 BPM Temperatu re Post-Dialysis 97.9 degF Standing Heart Rate Pre-Dialysis 93 BPM Temperature Pre-Dialysis 98.3 degF January 25, 2023 In-Center Hemodialysis Treatment 4175-38-09F25:05:00.000Z 4331-05-76Z69:21:49.000Z BP Sitting (Pre-Dialysis) 157/58 mmHg BP Sitting (Post-Dialysis) 130/68 mmHg Concurrent Access: falseAV Fistula Forearm (Left) Arterial BP Standing (Pre-Dialysis) 131/93 mmHg BP Standing (P ost-Dialysis) 106/83 mmHg Sitting Heart Rate Pre-Dialysis 87 BPM Sitting Heart Rate Post-Dialysis 76 BPM Standing Heart Rate Pre-Dialysis 71 BPM Standing Heart Rate Post-Dialysis 93 BPM Temperature Pre-Dialysis 96 degF Temperature Post -Dialysis 97.6 degF January 23, 2023 In-Center Hemodialysis Treatment 5051-81-48S17:01:00.000Z 4289-74-94V39:03:22.000Z BP Sitting (Pre-Dialysis) 156/71 mmHg BP Sitting (Post-Dialysis) 128/72 mmHg Concurrent Access: falseAV Fistula Forearm (Left) Arterial Sitting Heart Rate Pre-Dialysis 89 BPM Sitting H eart Rate Post-Dialysis 88 BPM Temperature Pre-Dialysis 98.4 degF Temperature Post -Dialysis 98.6 degF January 20, 2023 In-Center Hemodialysis Treatment 9812-74-25R66:49:00.000Z 6853-05-72L83:04:07.000Z BP Sitting (Pre-Dialysis) 141/69 mmHg BP Sitting (Post-Dialysis) 119/58 mmHg Concurrent Access: falseAV Fistula Forearm (Left) Arterial Sitting Heart Rate Pre-Dialysis 92 BPM Sitting H eart Rate Post-Dialysis 83 BPM Temperature Pre-Dialysis 97.2 degF Temperature Post -Dialysis 98.6 degF January 18, 2023 In-Center Hemodialysis Treatment 7277-05-89K67:07:26.000Z 5472-97-68S74:24:06.000Z BP Sitting (Pre-Dialysis) 146/77 mmHg BP Sitting (Post-Dialysis) 122/58 mmHg Concurrent Access: falseAV Fistula Forearm (Left) Arterial Sitting Heart Rate Pre-Dialysis 80 BPM Sitting H eart Rate Post-Dialysis 85 BPM Temperature Pre-Dialysis 97.3 degF Temperature Post -Dialysis 97.8 degF January 16, 2023 In-Center Hemodialysis Treatment 5886-83-09T82:07:42.000Z 4895-87-49S57:06:02.000Z BP Sitting (Pre-Dialysis) 150/74 mmHg BP Sitting (Post-Dialysis) 142/72 mmHg Concurrent Access: falseAV Fistula Forearm (Left) Arterial Sitting Heart Rate Pre-Dialysis 85 BPM Sitting H eart Rate Post-Dialysis 85 BPM Temperature Pre-Dialysis 96.6 degF Temperature Post -Dialysis 97.3 degF January 13, 2023 In-Center Hemodialysis Treatment 9126-93-91O77:00:00.000Z 6204-74-54Z19:24:56.000Z BP Sitting (Pre-Dialysis) 146/66 mmHg BP Sitting (Post-Dialysis) 134/55 mmHg Concurrent Access: falseAV Fistula Forearm (Left) Arterial Sitting Heart Rate Pre-Dialysis 73 BPM Sitting H eart Rate Post-Dialysis 69 BPM Temperature Pre-Dialysis 97.2 degF Temperature Post -Dialysis 98 degF January 10, 2023 In-Center Hemodialysis Treatment 1586-90-30N77:03:00.000Z 4298-88-64S15:30:39.000Z BP Sitting (Pre-Dialysis) 154/48 mmHg BP Sitting (Post-Dialysis) 146/63 mmHg Concurrent Access: falseAV Fistula Forearm (Left) Arterial Sitting Heart Rate Pre-Dialysis 91 BPM Sitting H eart Rate Post-Dialysis 80 BPM Temperature Pre-Dialysis 97.7 degF Temperature Post -Dialysis 98.1 degF January 08, 2023 In-Center Hemodialysis Treatment 9941-56-30L01:11:00.000Z 1289-83-89R26:30:39.000Z BP Sitting (Pre-Dialysis) 136/71 mmHg BP Sitting (Post-Dialysis) 123/31 mmHg Concurrent Access: falseAV Fistula Forearm (Left) Arterial Sitting Heart Rate Pre-Dialysis 78 BPM Sitting H eart Rate Post-Dialysis 84 BPM Temperature Pre-Dialysis 97.3 degF Temperature Post -Dialysis 97.8 degF January 06, 2023 In-Center Hemodialysis Treatment 1196-43-74S85:02:00.000Z 7154-41-78H07:20:26.000Z BP Sitting (Pre-Dialysis) 131/62 mmHg BP Sitting (Post-Dialysis) 116/68 mmHg Concurrent Access: falseAV Fistula Forearm (Left) Arterial Sitting Heart Rate Pre-Dialysis 80 BPM Sitting H eart Rate Post-Dialysis 80 BPM Temperature Pre-Dialysis 97.6 degF Temperature Post -Dialysis 97.3 degF January 04, 2023 In-Center Hemodialysis Treatment 4842-94-22I69:05:00.000Z 2875-37-05U30:24:00.000Z BP Sitting (Pre-Dialysis) 127/69 mmHg BP Sitting (Post-Dialysis) 106/67 mmHg Concurrent Access: falseAV Fistula Forearm (Left) Arterial Sitting Heart Rate Pre-Dialysis 87 BPM Sitting H eart Rate Post-Dialysis 51 BPM Temperature Pre-Dialysis 96.8 degF January 02, 2023 In-Center Hemodialysis Treatment [id number]:01:00.000Z 1441-36-35L15:22:47.000Z BP Sitting (Pre-Dialysis) 140/68 mmHg BP Sitting (Post-Dialysis) 109/52 mmHg Concurrent Access: falseAV Fistula Forearm (Left) Arterial Sitting Heart Rate Pre-Dialysis 83 BPM Sitting H eart Rate Post-Dialysis 69 BPM Temperature Pre-Dialysis 97.9 degF Temperature Post -Dialysis 98 degF December 30, 2022 In-Center Hemodialysis Treatment 4441-49-68P58:05:00.000Z 4824-01-77L96:23:05.000Z BP Sitting (Pre-Dialysis) 112/73 mmHg BP Sitting (Post-Dialysis) 110/56 mmHg Concurrent Access: falseAV Fistula Forearm (Left) Arterial Sitting Heart Rate Pre-Dialysis 69 BPM Sitting H eart Rate Post-Dialysis 87 BPM Temperature Pre-Dialysis 96.4 degF Temperature Post -Dialysis 98.2 degF December 28, 2022 In-Center Hemodialysis Treatment 4073-48-27L16:05:59.000Z 6976-02-71X18:22:39.000Z BP Sitting (Pre-Dialysis) 129/67 mmHg BP Sitting (Post-Dialysis) 127/60 mmHg Concurrent Access: falseAV Fistula Forearm (Left) Arterial Sitting Heart Rate Pre-Dialysis 71 BPM Sitting H eart Rate Post-Dialysis 67 BPM Temperature Pre-Dialysis 97.6 degF Temperature Post -Dialysis 97.7 degF December 26, 2022 In-Center Hemodialysis Treatment 9785-89-90Q92:00:00.000Z 6266-07-10X70:04:08.000Z BP Sitting (Pre-Dialysis) 125/69 mmHg BP Sitting (Post-Dialysis) 98/41 mmHg Concurrent Access: falseAV Fistula Forearm (Left) Arterial Sitting Heart Rate Pre-Dialysis 79 BPM Sitting H eart Rate Post-Dialysis 79 BPM Temperature Pre-Dialysis 97.7 degF Temperature Post -Dialysis 97.7 degF December 19, 2022 In-Center Hemodialysis Treatment 5843-15-32F06:03:52.000Z 7014-93-21V01:15:00.000Z BP Sitting (Pre-Dialysis) 106/55 mmHg BP Sitting (Post-Dialysis) 114/30 mmHg Concurrent Access: falseAV Fistula Forearm (Left) Arterial Sitting Heart Rate Pre-Dialysis 95 BPM Sitting H eart Rate Post-Dialysis 83 BPM Temperature Pre-Dialysis 98 degF Temperature Post -Dialysis 98.4 degF December 16, 2022 In-Center Hemodialysis Treatment 0343-75-05Z90:07:52.000Z 6071-98-65S55:00:47.000Z BP Sitting (Pre-Dialysis) 132/73 mmHg BP Sitting (Post-Dialysis) 148/50 mmHg Concurrent Access: falseAV Fistula Forearm (Left) Arterial Sitting Heart Rate Pre-Dialysis 87 BPM Sitting H eart Rate Post-Dialysis 86 BPM Temperature Pre-Dialysis 97.9 degF Temperature Post -Dialysis 97.8 degF December 14, 2022 In-Center Hemodialysis Treatment 0708-26-20E97:04:00.000Z 8433-51-58S31:27:04.000Z BP Sitting (Pre-Dialysis) 143/58 mmHg BP Sitting (Post-Dialysis) 110/64 mmHg Concurrent Access: falseAV Fistula Forearm (Left) Arterial Sitting Heart Rate Pre-Dialysis 86 BPM Sitting H eart Rate Post-Dialysis 71 BPM Temperature Pre-Dialysis 97.9 degF Temperature Post -Dialysis 98 degF December 12, 2022 In-Center Hemodialysis Treatment 2738-18-78E75:02:00.000Z 1848-93-85U68:23:43.000Z BP Sitting (Pre-Dialysis) 136/66 mmHg BP Sitting (Post-Dialysis) 123/62 mmHg Concurrent Access: falseAV Fistula Forearm (Left) Arterial Sitting Heart Rate Pre-Dialysis 94 BPM Sitting H eart Rate Post-Dialysis 88 BPM Temperature Pre-Dialysis 98 degF Temperature Post -Dialysis 97.9 degF December 09, 2022 In-Center Hemodialysis Treatment 0459-23-73M51:04:41.000Z 4991-53-39Z05:23:26.000Z BP Sitting (Pre-Dialysis) 160/79 mmHg BP Sitting (Post-Dialysis) 136/56 mmHg Concurrent Access: falseAV Fistula Forearm (Left) Arterial Sitting Heart Rate Pre-Dialysis 92 BPM Sitting H eart Rate Post-Dialysis 86 BPM Temperature Pre-Dialysis 98 degF Temperature Post -Dialysis 98.2 degF December 07, 2022 In-Center Hemodialysis Treatment [id number]:07:00.000Z 5419-54-51M09:21:22.000Z BP Sitting (Pre-Dialysis) 150/75 mmHg BP Sitting (Post-Dialysis) 123/63 mmHg Concurrent Access: falseAV Fistula Forearm (Left) Arterial Sitting Heart Rate Pre-Dialysis 93 BPM Sitting H eart Rate Post-Dialysis 85 BPM Temperature Pre-Dialysis 98.1 degF Temperature Post -Dialysis 97.5 degF December 05, 2022 In-Center Hemodialysis Treatment 1806-75-31L02:06:00.000Z 1037-09-20Y87:23:51.000Z BP Sitting (Pre-Dialysis) 142/44 mmHg BP Sitting (Post-Dialysis) 113/48 mmHg Concurrent Access: falseAV Fistula Forearm (Left) Arterial Sitting Heart Rate Pre-Dialysis 94 BPM Sitting H eart Rate Post-Dialysis 83 BPM Temperature Pre-Dialysis 98.2 degF Temperature Post -Dialysis 97.3 degF December 02, 2022 In-Center Hemodialysis Treatment 6946-78-57Y21:01:31.000Z 9475-33-21S21:22:14.000Z BP Sitting (Pre-Dialysis) 137/66 mmHg BP Sitting (Post-Dialysis) 127/55 mmHg Concurrent Access: falseAV Fistula Forearm (Left) Arterial Sitting Heart Rate Pre-Dialysis 88 BPM Sitting H eart Rate Post-Dialysis 87 BPM Temperature Pre-Dialysis 97.7 degF Temperature Post -Dialysis 98 degF November 30, 2022 In-Center Hemodialysis Treatment 8730-17-75E44:01:51.000Z 8700-23-55H98:20:23.000Z BP Sitting (Pre-Dialysis) 133/68 mmHg BP Sitting (Post-Dialysis) 114/55 mmHg Concurrent Access: falseAV Fistula Forearm (Left) Arterial Sitting Heart Rate Pre-Dialysis 91 BPM Sitting H eart Rate Post-Dialysis 83 BPM Temperature Pre-Dialysis 97.9 degF Temperature Post -Dialysis 97.7 degF November 28, 2022 In-Center Hemodialysis Treatment 5254-42-41A02:05:00.000Z 7969-34-04A67:26:56.000Z BP Sitting (Pre-Dialysis) 151/70 mmHg BP Sitting (Post-Dialysis) 119/67 mmHg Concurrent Access: falseAV Fistula Forearm (Left) Arterial Sitting Heart Rate Pre-Dialysis 90 BPM Sitting H eart Rate Post-Dialysis 81 BPM Temperature Pre-Dialysis 98 degF Temperature Post -Dialysis 97.7 degF November 23, 2022 In-Center Hemodialysis Treatment 5160-28-09B64:11:12.000Z 1588-55-77T33:40:22.000Z BP Sitting (Pre-Dialysis) 134/72 mmHg BP Sitting (Post-Dialysis) 149/63 mmHg Concurrent Access: falseAV Fistula Forearm (Left) Arterial Sitting Heart Rate Pre-Dialysis 90 BPM Sitting H eart Rate Post-Dialysis 78 BPM Temperature Pre-Dialysis 98 degF Temperature Post -Dialysis 98 degF November 21, 2022 In-Center Hemodialysis Treatment 5586-96-88H55:02:00.000Z 2324-21-18Y72:32:36.000Z BP Sitting (Pre-Dialysis) 138/76 mmHg BP Sitting (Post-Dialysis) 141/56 mmHg Concurrent Access: falseAV Fistula Forearm (Left) Arterial Sitting Heart Rate Pre-Dialysis 93 BPM Sitting H eart Rate Post-Dialysis 85 BPM Temperature Pre-Dialysis 97.6 degF Temperature Post -Dialysis 97.2 degF November 18, 2022 In-Center Hemodialysis Treatment 6064-90-65Q69:03:00.000Z 8930-56-20P58:19:51.000Z BP Sitting (Pre-Dialysis) 151/70 mmHg BP Sitting (Post-Dialysis) 127/62 mmHg Concurrent Access: falseAV Fistula Forearm (Left) Arterial Sitting Heart Rate Pre-Dialysis 90 BPM Sitting H eart Rate Post-Dialysis 81 BPM Temperature Pre-Dialysis 97.3 degF Temperature Post -Dialysis 97.2 degF November 16, 2022 In-Center Hemodialysis Treatment 2582-55-50U05:03:00.000Z 9707-29-19L13:58:53.000Z BP Sitting (Pre-Dialysis) 143/69 mmHg BP Sitting (Post-Dialysis) 125/74 mmHg Concurrent Access: falseAV Fistula Forearm (Left) Arterial Sitting Heart Rate Pre-Dialysis 90 BPM Sitting H eart Rate Post-Dialysis 92 BPM Temperature Pre-Dialysis 97.2 degF Temperature Post -Dialysis 97 degF November 14, 2022 In-Center Hemodialysis Treatment 3051-80-84Q59:06:38.000Z 9728-09-15R65:53:00.000Z BP Sitting (Pre-Dialysis) 144/80 mmHg BP Sitting (Post-Dialysis) 126/56 mmHg Concurrent Access: falseAV Fistula Forearm (Left) Arterial Sitting Heart Rate Pre-Dialysis 89 BPM Sitting H eart Rate Post-Dialysis 81 BPM Temperature Pre-Dialysis 97.9 degF Temperature Post -Dialysis 97.3 degF November 11, 2022 In-Center Hemodialysis Treatment 8107-58-32C10:02:00.000Z 3810-66-86J56:16:31.000Z BP Sitting (Pre-Dialysis) 126/70 mmHg BP Sitting (Post-Dialysis) 104/43 mmHg Concurrent Access: falseAV Fistula Forearm (Left) Arterial Sitting Heart Rate Pre-Dialysis 89 BPM Sitting H eart Rate Post-Dialysis 85 BPM Temperature Pre-Dialysis 98.2 degF Temperature Post -Dialysis 97.2 degF November 09, 2022 In-Center Hemodialysis Treatment 2196-95-91G24:58:00.000Z 0666-73-31E49:24:48.000Z BP Sitting (Pre-Dialysis) 132/78 mmHg BP Sitting (Post-Dialysis) 122/66 mmHg Concurrent Access: falseAV Fistula Forearm (Left) Arterial Sitting Heart Rate Pre-Dialysis 92 BPM Sitting H eart Rate Post-Dialysis 68 BPM Temperature Pre-Dialysis 96.4 degF Temperature Post -Dialysis 97.9 degF November 08, 2022 Sequential Treatment 7773-50-78J76:40:25.000Z 0378-81-98V81:41:15.000Z BP Sitting (Pre-Dialysis) 157/77 mmHg BP Sitting (Post-Dialysis) 127/70 mmHg Concurrent Access: falseAV Fistula Forearm (Left) Arterial Sitting Heart Rate Pre-Dialysis 93 BPM Sitting H eart Rate Post-Dialysis 90 BPM Temperature Pre-Dialysis 97.5 degF Temperature Post -Dialysis 97.9 degF November 07, 2022 In-Center Hemodialysis Treatment 0021-72-20P91:56:00.000Z 5363-67-34T22:16:52.000Z BP Sitting (Pre-Dialysis) 144/88 mmHg BP Sitting (Post-Dialysis) 133/73 mmHg Concurrent Access: falseAV Fistula Forearm (Left) Arterial Sitting Heart Rate Pre-Dialysis 94 BPM Sitting H eart Rate Post-Dialysis 84 BPM Temperature Pre-Dialysis 98.2 degF Temperature Post -Dialysis 97.3 degF November 04, 2022 In-Center Hemodialysis Treatment 1207-50-27F48:01:00.000Z 6200-73-35P96:22:16.000Z BP Sitting (Pre-Dialysis) 154/79 mmHg BP Sitting (Post-Dialysis) 144/62 mmHg Concurrent Access: falseAV Fistula Forearm (Left) Arterial Sitting Heart Rate Pre-Dialysis 95 BPM Sitting H eart Rate Post-Dialysis 90 BPM Temperature Pre-Dialysis 97.5 degF Temperature Post -Dialysis 97.3 degF November 02, 2022 In-Center Hemodialysis Treatment 1816-12-31F83:59:00.000Z 4707-63-83W94:21:41.000Z BP Sitting (Pre-Dialysis) 154/80 mmHg BP Sitting (Post-Dialysis) 141/64 mmHg Concurrent Access: falseAV Fistula Forearm (Left) Arterial Sitting Heart Rate Pre-Dialysis 96 BPM Sitting H eart Rate Post-Dialysis 88 BPM Temperature Pre-Dialysis 98 degF Temperature Post -Dialysis 97.2 degF October 31, 2022 In-Center Hemodialysis Treatment 3406-16-46P89:03:00.000Z 0982-05-28J18:24:57.000Z BP Sitting (Pre-Dialysis) 138/82 mmHg BP Sitting (Post-Dialysis) 132/74 mmHg Concurrent Access: falseAV Fistula Forearm (Left) Arterial Sitting Heart Rate Pre-Dialysis 93 BPM Sitting H eart Rate Post-Dialysis 69 BPM Temperature Pre-Dialysis 97.9 degF Temperature Post -Dialysis 97.8 degF October 28, 2022 In-Center Hemodialysis Treatment 5689-18-32D42:58:00.000Z 5145-21-63U08:22:35.000Z BP Sitting (Pre-Dialysis) 132/91 mmHg BP Sitting (Post-Dialysis) 117/58 mmHg Concurrent Access: falseAV Fistula Forearm (Left) Arterial Sitting Heart Rate Pre-Dialysis 84 BPM Sitting H eart Rate Post-Dialysis 86 BPM Temperature Pre-Dialysis 97.2 degF Temperature Post -Dialysis 97.6 degF October 26, 2022 In-Center Hemodialysis Treatment 8325-83-20P11:04:00.000Z 3084-98-75S09:26:18.000Z BP Sitting (Pre-Dialysis) 138/80 mmHg BP Sitting (Post-Dialysis) 118/69 mmHg Concurrent Access: falseAV Fistula Forearm (Left) Arterial Sitting Heart Rate Pre-Dialysis 94 BPM Sitting H eart Rate Post-Dialysis 75 BPM Temperature Pre-Dialysis 97.6 degF Temperature Post -Dialysis 97.9 degF October 24, 2022 In-Center Hemodialysis Treatment 9076-95-76F65:04:50.000Z 0161-90-35H37:21:55.000Z BP Sitting (Pre-Dialysis) 133/77 mmHg BP Sitting (Post-Dialysis) 125/64 mmHg Concurrent Access: falseAV Fistula Forearm (Left) Arterial Sitting Heart Rate Pre-Dialysis 92 BPM Sitting H eart Rate Post-Dialysis 85 BPM Temperature Pre-Dialysis 98 degF Temperature Post -Dialysis 97.3 degF October 21, 2022 In-Center Hemodialysis Treatment 1700-54-25L78:02:00.000Z 9214-07-65J63:06:24.000Z BP Sitting (Pre-Dialysis) 139/71 mmHg BP Sitting (Post-Dialysis) 147/61 mmHg Concurrent Access: falseAV Fistula Forearm (Left) Arterial Sitting Heart Rate Pre-Dialysis 87 BPM Sitting H eart Rate Post-Dialysis 85 BPM Temperature Pre-Dialysis 97.2 degF Temperature Post -Dialysis 97.2 degF October 19, 2022 In-Center Hemodialysis Treatment 3978-36-53B48:58:00.000Z 4569-94-85H54:19:00.000Z BP Sitting (Pre-Dialysis) 142/55 mmHg BP Sitting (Post-Dialysis) 153/82 mmHg Concurrent Access: falseAV Fistula Forearm (Left) Arterial Sitting Heart Rate Pre-Dialysis 96 BPM Sitting H eart Rate Post-Dialysis 82 BPM Temperature Pre-Dialysis 97.8 degF Temperature Post -Dialysis 98.7 degF October 17, 2022 In-Center Hemodialysis Treatment 9945-40-27O16:00:00.000Z 5051-96-89E64:20:20.000Z BP Sitting (Pre-Dialysis) 129/80 mmHg BP Sitting (Post-Dialysis) 126/60 mmHg Concurrent Access: falseAV Fistula Forearm (Left) Arterial Sitting Heart Rate Pre-Dialysis 86 BPM Sitting H eart Rate Post-Dialysis 77 BPM Temperature Pre-Dialysis 97.7 degF Temperature Post -Dialysis 98 degF October 14, 2022 In-Center Hemodialysis Treatment 1372-19-82E09:05:00.000Z 0388-07-63V59:23:09.000Z BP Sitting (Pre-Dialysis) 124/69 mmHg BP Sitting (Post-Dialysis) 136/72 mmHg Concurrent Access: falseAV Fistula Forearm (Left) Arterial Sitting Heart Rate Pre-Dialysis 94 BPM Sitting H eart Rate Post-Dialysis 83 BPM Temperature Pre-Dialysis 97.2 degF Temperature Post -Dialysis 97.6 degF October 12, 2022 In-Center Hemodialysis Treatment 1226-98-50E42:00:00.000Z 0164-03-78I20:24:54.000Z BP Sitting (Pre-Dialysis) 139/73 mmHg BP Sitting (Post-Dialysis) 130/54 mmHg Concurrent Access: falseAV Fistula Forearm (Left) Arterial Sitting Heart Rate Pre-Dialysis 76 BPM Sitting H eart Rate Post-Dialysis 79 BPM Temperature Pre-Dialysis 97.4 degF Temperature Post -Dialysis 97.3 degF October 10, 2022 In-Center Hemodialysis Treatment 6818-54-48Z41:13:00.000Z 9467-98-76Q76:30:50.000Z BP Sitting (Pre-Dialysis) 134/69 mmHg BP Sitting (Post-Dialysis) 144/78 mmHg Concurrent Access: falseAV Fistula Forearm (Left) Arterial Sitting Heart Rate Pre-Dialysis 93 BPM Sitting H eart Rate Post-Dialysis 77 BPM Temperature Pre-Dialysis 98 degF Temperature Post -Dialysis 97.3 degF October 07, 2022 In-Center Hemodialysis Treatment 2420-84-97X92:01:39.000Z 4830-87-84W53:17:54.000Z BP Sitting (Pre-Dialysis) 114/64 mmHg BP Sitting (Post-Dialysis) 115/57 mmHg Concurrent Access: falseAV Fistula Forearm (Left) Arterial Sitting Heart Rate Pre-Dialysis 76 BPM Sitting H eart Rate Post-Dialysis 79 BPM Temperature Pre-Dialysis 96.5 degF Temperature Post -Dialysis 97.2 degF October 05, 2022 In-Center Hemodialysis Treatment 7462-41-10A90:00:01.000Z 1520-35-39Z95:19:36.000Z BP Sitting (Pre-Dialysis) 153/74 mmHg BP Sitting (Post-Dialysis) 123/52 mmHg Concurrent Access: falseAV Fistula Forearm (Left) Arterial Sitting Heart Rate Pre-Dialysis 82 BPM Sitting H eart Rate Post-Dialysis 77 BPM Temperature Pre-Dialysis 97.4 degF Temperature Post -Dialysis 97.7 degF October 03, 2022 In-Center Hemodialysis Treatment 9549-29-40R47:06:41.000Z 2249-13-09S16:25:26.000Z BP Sitting (Pre-Dialysis) 137/59 mmHg BP Sitting (Post-Dialysis) 119/67 mmHg Concurrent Access: falseAV Fistula Forearm (Left) Arterial Sitting Heart Rate Pre-Dialysis 87 BPM Sitting H eart Rate Post-Dialysis 76 BPM Temperature Pre-Dialysis 97.5 degF Temperature Post -Dialysis 97.7 degF September 30, 2022 In-Center Hemodialysis Treatment 9487-67-81R60:41:49.000Z 0128-37-91S88:31:49.000Z BP Sitting (Pre-Dialysis) 127/72 mmHg BP Sitting (Post-Dialysis) 128/58 mmHg Concurrent Access: falseAV Fistula Forearm (Left) Arterial Sitting Heart Rate Pre-Dialysis 94 BPM Sitting H eart Rate Post-Dialysis 84 BPM Temperature Pre-Dialysis 97.5 degF Temperature Post -Dialysis 98.3 degF September 28, 2022 In-Center Hemodialysis Treatment 4705-82-32X07:01:27.000Z 1404-53-91W19:19:47.000Z BP Sitting (Pre-Dialysis) 113/80 mmHg BP Sitting (Post-Dialysis) 114/52 mmHg Concurrent Access: falseAV Fistula Forearm (Left) Arterial Sitting Heart Rate Pre-Dialysis 84 BPM Sitting H eart Rate Post-Dialysis 82 BPM Temperature Pre-Dialysis 97.4 degF Temperature Post -Dialysis 98.1 degF September 26, 2022 In-Center Hemodialysis Treatment 9256-85-14R17:59:00.000Z 0435-22-51F14:20:27.000Z BP Sitting (Pre-Dialysis) 155/60 mmHg BP Sitting (Post-Dialysis) 135/53 mmHg Concurrent Access: falseAV Fistula Forearm (Left) Arterial Sitting Heart Rate Pre-Dialysis 87 BPM Sitting H eart Rate Post-Dialysis 69 BPM Temperature Pre-Dialysis 97.5 degF Temperature Post -Dialysis 97.6 degF September 23, 2022 In-Center Hemodialysis Treatment 8600-82-44S44:01:32.000Z 8940-29-50Q78:16:32.000Z BP Sitting (Pre-Dialysis) 148/73 mmHg BP Sitting (Post-Dialysis) 119/52 mmHg Concurrent Access: falseAV Fistula Forearm (Left) Arterial Sitting Heart Rate Pre-Dialysis 95 BPM Sitting H eart Rate Post-Dialysis 81 BPM Temperature Pre-Dialysis 97.2 degF Temperature Post -Dialysis 97.6 degF September 21, 2022 In-Center Hemodialysis Treatment 0879-98-10Q96:04:20.000Z 8105-51-36C64:21:00.000Z BP Sitting (Pre-Dialysis) 153/77 mmHg BP Sitting (Post-Dialysis) 116/59 mmHg Concurrent Access: falseAV Fistula Forearm (Left) Arterial Sitting Heart Rate Pre-Dialysis 90 BPM Sitting H eart Rate Post-Dialysis 86 BPM Temperature Pre-Dialysis 97.7 degF Temperature Post -Dialysis 98 degF September 19, 2022 In-Center Hemodialysis Treatment 4202-47-16R00:09:32.000Z 0392-49-45F88:28:42.000Z BP Sitting (Pre-Dialysis) 138/73 mmHg BP Sitting (Post-Dialysis) 128/74 mmHg Concurrent Access: falseAV Fistula Forearm (Left) Arterial Sitting Heart Rate Pre-Dialysis 87 BPM Sitting H eart Rate Post-Dialysis 97 BPM Temperature Pre-Dialysis 98 degF Temperature Post -Dialysis 97.3 degF September 16, 2022 In-Center Hemodialysis Treatment 1338-26-23M89:01:20.000Z 2527-98-34Z53:18:50.000Z BP Sitting (Pre-Dialysis) 170/70 mmHg BP Sitting (Post-Dialysis) 141/69 mmHg Concurrent Access: falseAV Fistula Forearm (Left) Arterial Sitting Heart Rate Pre-Dialysis 84 BPM Sitting H eart Rate Post-Dialysis 86 BPM Temperature Pre-Dialysis 97.7 degF Temperature Post -Dialysis 97.3 degF September 14, 2022 In-Center Hemodialysis Treatment 1227-52-62G06:58:00.000Z 2706-65-90G30:13:48.000Z BP Sitting (Pre-Dialysis) 168/79 mmHg BP Sitting (Post-Dialysis) 114/65 mmHg Concurrent Access: falseAV Fistula Forearm (Left) Arterial Sitting Heart Rate Pre-Dialysis 88 BPM Sitting H eart Rate Post-Dialysis 80 BPM Temperature Pre-Dialysis 97.7 degF Temperature Post -Dialysis 97.3 degF September 12, 2022 In-Center Hemodialysis Treatment 3729-27-61U18:03:57.000Z 0645-25-32O09:21:02.000Z BP Sitting (Pre-Dialysis) 151/77 mmHg BP Sitting (Post-Dialysis) 130/64 mmHg Concurrent Access: falseAV Fistula Forearm (Left) Arterial Sitting Heart Rate Pre-Dialysis 93 BPM Sitting H eart Rate Post-Dialysis 82 BPM Temperature Pre-Dialysis 97.7 degF Temperature Post -Dialysis 98 degF September 09, 2022 In-Center Hemodialysis Treatment 6005-13-77A39:05:20.000Z 8607-86-46G70:26:35.000Z BP Sitting (Pre-Dialysis) 142/83 mmHg BP Sitting (Post-Dialysis) 160/75 mmHg Concurrent Access: falseAV Fistula Forearm (Left) Arterial Sitting Heart Rate Pre-Dialysis 90 BPM Sitting H eart Rate Post-Dialysis 85 BPM Temperature Pre-Dialysis 97.8 degF Temperature Post -Dialysis 96.9 degF September 07, 2022 In-Center Hemodialysis Treatment 4210-08-38P51:05:55.000Z 2548-72-49Y81:25:05.000Z BP Sitting (Pre-Dialysis) 146/76 mmHg BP Sitting (Post-Dialysis) 140/69 mmHg Concurrent Access: falseAV Fistula Forearm (Left) Arterial Sitting Heart Rate Pre-Dialysis 85 BPM Sitting H eart Rate Post-Dialysis 91 BPM Temperature Pre-Dialysis 97.7 degF Temperature Post -Dialysis 97.8 degF September 05, 2022 In-Center Hemodialysis Treatment 4703-30-94P18:04:00.000Z 0851-08-91B01:24:11.000Z BP Sitting (Pre-Dialysis) 143/74 mmHg BP Sitting (Post-Dialysis) 117/57 mmHg Concurrent Access: falseAV Fistula Forearm (Left) Arterial Sitting Heart Rate Pre-Dialysis 88 BPM Sitting H eart Rate Post-Dialysis 84 BPM Temperature Pre-Dialysis 97.3 degF Temperature Post -Dialysis 97 degF September 02, 2022 In-Center Hemodialysis Treatment 8251-88-86F48:02:00.000Z 9428-12-58O36:18:20.000Z BP Sitting (Pre-Dialysis) 13/72 mmHg BP Sitting (Post-Dialysis) 129/59 mmHg Concurrent Access: falseAV Fistula Forearm (Left) Arterial Sitting Heart Rate Pre-Dialysis 97 BPM Sitting H eart Rate Post-Dialysis 80 BPM Temperature Pre-Dialysis 98.1 degF Temperature Post -Dialysis 98.2 degF August 31, 2022 In-Center Hemodialysis Treatment 2655-23-96B93:56:40.000Z 4006-71-76J27:00:00.000Z BP Sitting (Pre-Dialysis) 114/71 mmHg BP Sitting (Post-Dialysis) 105/74 mmHg Concurrent Access: falseAV Fistula Forearm (Left) Arterial Sitting Heart Rate Pre-Dialysis 87 BPM Sitting H eart Rate Post-Dialysis 95 BPM Temperature Pre-Dialysis 97.6 degF Temperature Post -Dialysis 98 degF August 29, 2022 In-Center Hemodialysis Treatment 7317-84-87S13:06:00.000Z 6820-91-96V94:24:10.000Z BP Sitting (Pre-Dialysis) 140/71 mmHg BP Sitting (Post-Dialysis) 104/67 mmHg Concurrent Access: falseAV Fistula Forearm (Left) Arterial Sitting Heart Rate Pre-Dialysis 92 BPM Sitting H eart Rate Post-Dialysis 68 BPM Temperature Pre-Dialysis 98 degF Temperature Post -Dialysis 98.2 degF August 26, 2022 In-Center Hemodialysis Treatment 8616-65-63X51:10:00.000Z 5369-50-60P87:26:21.000Z BP Sitting (Pre-Dialysis) 138/72 mmHg BP Sitting (Post-Dialysis) 138/78 mmHg Concurrent Access: falseAV Fistula Forearm (Left) Arterial Sitting Heart Rate Pre-Dialysis 81 BPM Sitting H eart Rate Post-Dialysis 81 BPM Temperature Pre-Dialysis 97.8 degF Temperature Post -Dialysis 97.8 degF August 24, 2022 In-Center Hemodialysis Treatment 5678-45-17R41:06:00.000Z 7568-82-64S29:26:01.000Z BP Sitting (Pre-Dialysis) 170/76 mmHg BP Sitting (Post-Dialysis) 110/59 mmHg Concurrent Access: falseAV Fistula Forearm (Left) Arterial Sitting Heart Rate Pre-Dialysis 84 BPM Sitting H eart Rate Post-Dialysis 73 BPM Temperature Pre-Dialysis 97.5 degF Temperature Post -Dialysis 97.8 degF August 22, 2022 In-Center Hemodialysis Treatment 9039-84-04F18:03:51.000Z 1754-89-76C97:22:11.000Z BP Sitting (Pre-Dialysis) 107/72 mmHg BP Sitting (Post-Dialysis) 140/62 mmHg Concurrent Access: falseAV Fistula Forearm (Left) Arterial Sitting Heart Rate Pre-Dialysis 92 BPM Sitting H eart Rate Post-Dialysis 78 BPM Temperature Pre-Dialysis 98 degF Temperature Post -Dialysis 97.7 degF August 19, 2022 In-Center Hemodialysis Treatment 1747-13-88X41:10:00.000Z 2572-51-24Z02:25:19.000Z BP Sitting (Pre-Dialysis) 137/80 mmHg BP Sitting (Post-Dialysis) 135/62 mmHg Concurrent Access: falseAV Fistula Forearm (Left) Arterial Sitting Heart Rate Pre-Dialysis 92 BPM Sitting H eart Rate Post-Dialysis 82 BPM Temperature Pre-Dialysis 97.7 degF Temperature Post -Dialysis 97.6 degF August 17, 2022 In-Center Hemodialysis Treatment 9698-95-98V41:06:00.000Z 1688-69-92S70:22:04.000Z BP Sitting (Pre-Dialysis) 134/72 mmHg BP Sitting (Post-Dialysis) 125/69 mmHg Concurrent Access: falseAV Fistula Forearm (Left) Arterial Sitting Heart Rate Pre-Dialysis 82 BPM Sitting H eart Rate Post-Dialysis 82 BPM Temperature Pre-Dialysis 97.3 degF Temperature Post -Dialysis 97.6 degF August 15, 2022 In-Center Hemodialysis Treatment 8143-62-60J62:02:00.000Z 5682-35-62K61:17:40.000Z BP Sitting (Pre-Dialysis) 160/78 mmHg BP Sitting (Post-Dialysis) 128/68 mmHg Concurrent Access: falseAV Fistula Forearm (Left) Arterial Sitting Heart Rate Pre-Dialysis 91 BPM Sitting H eart Rate Post-Dialysis 82 BPM Temperature Pre-Dialysis 97.2 degF Temperature Post -Dialysis 98 degF August 12, 2022 In-Center Hemodialysis Treatment 2347-30-21H89:05:00.000Z 9232-57-83H36:19:55.000Z BP Sitting (Pre-Dialysis) 130/66 mmHg BP Sitting (Post-Dialysis) 114/57 mmHg Concurrent Access: falseAV Fistula Forearm (Left) Arterial Sitting Heart Rate Pre-Dialysis 86 BPM Sitting H eart Rate Post-Dialysis 78 BPM Temperature Pre-Dialysis 97.3 degF Temperature Post -Dialysis 97.7 degF August 10, 2022 In-Center Hemodialysis Treatment 2294-90-64Q64:04:47.000Z 3263-85-03N55:20:37.000Z BP Sitting (Pre-Dialysis) 157/94 mmHg BP Sitting (Post-Dialysis) 131/38 mmHg Concurrent Access: falseAV Fistula Forearm (Left) Arterial Sitting Heart Rate Pre-Dialysis 91 BPM Sitting H eart Rate Post-Dialysis 77 BPM Temperature Pre-Dialysis 97.3 degF Temperature Post -Dialysis 97.8 degF August 08, 2022 In-Center Hemodialysis Treatment 7358-06-14G02:05:00.000Z 4405-69-54P91:20:44.000Z BP Sitting (Pre-Dialysis) 146/83 mmHg BP Sitting (Post-Dialysis) 100/79 mmHg Concurrent Access: falseAV Fistula Forearm (Left) Arterial Sitting Heart Rate Pre-Dialysis 86 BPM Sitting H eart Rate Post-Dialysis 80 BPM Temperature Pre-Dialysis 97.2 degF Temperature Post -Dialysis 97.6 degF August 05, 2022 In-Center Hemodialysis Treatment 1008-27-38K87:02:36.000Z 9832-80-41F10:18:51.000Z BP Sitting (Pre-Dialysis) 158/79 mmHg BP Sitting (Post-Dialysis) 120/67 mmHg Concurrent Access: falseAV Fistula Forearm (Left) Arterial Sitting Heart Rate Pre-Dialysis 84 BPM Sitting H eart Rate Post-Dialysis 71 BPM Temperature Pre-Dialysis 96.3 degF Temperature Post -Dialysis 98.4 degF August 03, 2022 In-Center Hemodialysis Treatment 4211-19-37J28:01:43.000Z 2459-50-69A27:20:53.000Z BP Sitting (Pre-Dialysis) 110/75 mmHg BP Sitting (Post-Dialysis) 126/62 mmHg Concurrent Access: falseAV Fistula Forearm (Left) Arterial Sitting Heart Rate Pre-Dialysis 81 BPM Sitting H eart Rate Post-Dialysis 76 BPM Temperature Pre-Dialysis 97.2 degF Temperature Post -Dialysis 97.2 degF August 01, 2022 In-Center Hemodialysis Treatment 6307-16-01S05:55:00.000Z 5370-08-41T03:19:11.000Z BP Sitting (Pre-Dialysis) 152/60 mmHg BP Sitting (Post-Dialysis) 113/48 mmHg Concurrent Access: falseAV Fistula Forearm (Left) Arterial Sitting Heart Rate Pre-Dialysis 84 BPM Sitting H eart Rate Post-Dialysis 73 BPM Temperature Pre-Dialysis 97.1 degF Temperature Post -Dialysis 97.6 degF July 29, 2022 In-Center Hemodialysis Treatment 6761-42-92K74:07:13.000Z 6406-42-39Q23:23:28.000Z BP Sitting (Pre-Dialysis) 142/71 mmHg BP Sitting (Post-Dialysis) 123/56 mmHg Concurrent Access: falseAV Fistula Forearm (Left) Arterial Sitting Heart Rate Pre-Dialysis 73 BPM Sitting H eart Rate Post-Dialysis 72 BPM Temperature Pre-Dialysis 97.3 degF Temperature Post -Dialysis 98.2 degF July 27, 2022 In-Center Hemodialysis Treatment 5729-42-40G88:04:00.000Z 0166-94-94P71:21:45.000Z BP Sitting (Pre-Dialysis) 139/60 mmHg BP Sitting (Post-Dialysis) 101/54 mmHg Concurrent Access: falseAV Fistula Forearm (Left) Arterial Sitting Heart Rate Pre-Dialysis 83 BPM Sitting H eart Rate Post-Dialysis 78 BPM Temperature Pre-Dialysis 97.6 degF Temperature Post -Dialysis 97.3 degF July 25, 2022 In-Center Hemodialysis Treatment 3373-33-50M98:02:00.000Z 9243-96-64P24:21:45.000Z BP Sitting (Pre-Dialysis) 135/73 mmHg BP Sitting (Post-Dialysis) 106/55 mmHg Concurrent Access: falseAV Fistula Forearm (Left) Arterial Sitting Heart Rate Pre-Dialysis 85 BPM Sitting H eart Rate Post-Dialysis 78 BPM Temperature Pre-Dialysis 96.6 degF Temperature Post -Dialysis 97.3 degF July 22, 2022 In-Center Hemodialysis Treatment 1720-59-47A99:05:36.000Z 4192-44-12F28:22:41.000Z BP Sitting (Pre-Dialysis) 126/66 mmHg BP Sitting (Post-Dialysis) 100/53 mmHg Concurrent Access: falseAV Fistula Forearm (Left) Arterial Sitting Heart Rate Pre-Dialysis 82 BPM Sitting H eart Rate Post-Dialysis 79 BPM Temperature Pre-Dialysis 97.2 degF Temperature Post -Dialysis 98.1 degF July 20, 2022 In-Center Hemodialysis Treatment 2422-13-23M28:58:00.000Z 9215-28-22P94:15:09.000Z BP Sitting (Pre-Dialysis) 131/52 mmHg BP Sitting (Post-Dialysis) 142/95 mmHg Concurrent Access: falseAV Fistula Forearm (Left) Arterial Sitting Heart Rate Pre-Dialysis 86 BPM Sitting H eart Rate Post-Dialysis 81 BPM Temperature Pre-Dialysis 97.6 degF Temperature Post -Dialysis 97.6 degF July 18, 2022 In-Center Hemodialysis Treatment 9560-26-17O91:03:00.000Z 1816-43-21Y16:18:46.000Z BP Sitting (Pre-Dialysis) 130/73 mmHg BP Sitting (Post-Dialysis) 136/54 mmHg Concurrent Access: falseAV Fistula Forearm (Left) Arterial Sitting Heart Rate Pre-Dialysis 82 BPM Sitting H eart Rate Post-Dialysis 80 BPM Temperature Pre-Dialysis 97.6 degF Temperature Post -Dialysis 97.5 degF July 15, 2022 In-Center Hemodialysis Treatment 7913-73-04H76:01:48.000Z 5586-58-08F84:19:43.000Z BP Sitting (Pre-Dialysis) 125/66 mmHg BP Sitting (Post-Dialysis) 123/54 mmHg Concurrent Access: falseAV Fistula Forearm (Left) Arterial Sitting Heart Rate Pre-Dialysis 75 BPM Sitting H eart Rate Post-Dialysis 75 BPM Temperature Pre-Dialysis 97.7 degF Temperature Post -Dialysis 97.9 degF July 13, 2022 In-Center Hemodialysis Treatment 3651-04-38K57:03:00.000Z 1889-83-09M40:19:46.000Z BP Sitting (Pre-Dialysis) 144/76 mmHg BP Sitting (Post-Dialysis) 110/53 mmHg Concurrent Access: falseAV Fistula Forearm (Left) Arterial Sitting Heart Rate Pre-Dialysis 87 BPM Sitting H eart Rate Post-Dialysis 83 BPM Temperature Pre-Dialysis 97.6 degF Temperature Post -Dialysis 97.3 degF July 11, 2022 In-Center Hemodialysis Treatment 1554-88-43Y21:00:19.000Z 4305-67-20V45:16:09.000Z BP Sitting (Pre-Dialysis) 140/80 mmHg BP Sitting (Post-Dialysis) 118/57 mmHg Concurrent Access: falseAV Fistula Forearm (Left) Arterial Sitting Heart Rate Pre-Dialysis 90 BPM Sitting H eart Rate Post-Dialysis 83 BPM Temperature Pre-Dialysis 97 degF Temperature Post -Dialysis 98.7 degF July 09, 2022 In-Center Hemodialysis Treatment 8285-58-79H64:01:00.000Z 4938-34-72E16:02:34.000Z BP Sitting (Pre-Dialysis) 141/70 mmHg BP Sitting (Post-Dialysis) 134/62 mmHg Concurrent Access: falseAV Fistula Forearm (Left) Arterial Sitting Heart Rate Pre-Dialysis 93 BPM Sitting H eart Rate Post-Dialysis 80 BPM Temperature Pre-Dialysis 97 degF Temperature Post -Dialysis 98.2 degF July 06, 2022 In-Center Hemodialysis Treatment 6392-56-27A57:12:00.000Z 2088-31-28N82:29:22.000Z BP Sitting (Pre-Dialysis) 168/85 mmHg BP Sitting (Post-Dialysis) 130/54 mmHg Concurrent Access: falseAV Fistula Forearm (Left) Arterial Sitting Heart Rate Pre-Dialysis 84 BPM Sitting H eart Rate Post-Dialysis 82 BPM Temperature Pre-Dialysis 95.7 degF Temperature Post -Dialysis 98.3 degF July 04, 2022 In-Center Hemodialysis Treatment 4417-45-82Z51:00:00.000Z 1793-01-61S30:17:57.000Z BP Sitting (Pre-Dialysis) 148/77 mmHg BP Sitting (Post-Dialysis) 128/75 mmHg Concurrent Access: falseAV Fistula Forearm (Left) Arterial Sitting Heart Rate Pre-Dialysis 95 BPM Sitting H eart Rate Post-Dialysis 79 BPM Temperature Pre-Dialysis 96.3 degF Temperature Post -Dialysis 97.7 degF July 01, 2022 In-Center Hemodialysis Treatment 2159-84-87B35:03:00.000Z 5341-93-40O12:25:11.000Z BP Sitting (Pre-Dialysis) 137/47 mmHg BP Sitting (Post-Dialysis) 111/32 mmHg Concurrent Access: falseAV Fistula Forearm (Left) Arterial Sitting Heart Rate Pre-Dialysis 86 BPM Sitting H eart Rate Post-Dialysis 72 BPM Temperature Pre-Dialysis 97.1 degF Temperature Post -Dialysis 97.3 degF June 29, 2022 In-Center Hemodialysis Treatment 9265-54-00K19:04:00.000Z 0541-12-93V09:19:00.000Z BP Sitting (Pre-Dialysis) 140/80 mmHg BP Sitting (Post-Dialysis) 124/53 mmHg Concurrent Access: falseAV Fistula Forearm (Left) Arterial Sitting Heart Rate Pre-Dialysis 83 BPM Sitting H eart Rate Post-Dialysis 84 BPM Temperature Pre-Dialysis 97.5 degF Temperature Post -Dialysis 97.7 degF June 27, 2022 In-Center Hemodialysis Treatment 0899-48-61H24:02:00.000Z 9235-93-92V60:19:00.000Z BP Sitting (Pre-Dialysis) 155/80 mmHg BP Sitting (Post-Dialysis) 135/60 mmHg Concurrent Access: falseAV Fistula Forearm (Left) Arterial Sitting Heart Rate Pre-Dialysis 88 BPM Sitting H eart Rate Post-Dialysis 83 BPM Temperature Pre-Dialysis 98.2 degF Temperature Post -Dialysis 97.6 degF June 24, 2022 In-Center Hemodialysis Treatment 1524-09-20E88:03:03.000Z 1976-84-79D19:18:28.000Z BP Sitting (Pre-Dialysis) 160/79 mmHg BP Sitting (Post-Dialysis) 168/83 mmHg Concurrent Access: falseAV Fistula Forearm (Left) Arterial Sitting Heart Rate Pre-Dialysis 85 BPM Sitting H eart Rate Post-Dialysis 78 BPM Temperature Pre-Dialysis 97.8 degF Temperature Post -Dialysis 97.6 degF June 22, 2022 In-Center Hemodialysis Treatment 1314-69-71R64:08:00.000Z 6724-43-35S38:24:46.000Z BP Sitting (Pre-Dialysis) 157/79 mmHg BP Sitting (Post-Dialysis) 141/80 mmHg Concurrent Access: falseAV Fistula Forearm (Left) Arterial Sitting Heart Rate Pre-Dialysis 81 BPM Sitting H eart Rate Post-Dialysis 78 BPM Temperature Pre-Dialysis 97.3 degF Temperature Post -Dialysis 97.8 degF June 20, 2022 [facility] 4518-55-78Z70:02:00.000Z 6766-87-73S90:22:15.000Z BP Sitting (Pre-Dialysis) 160/85 mmHg BP Sitting (Post-Dialysis) 150/70 mmHg Concurrent Access: falseAV Fistula Forearm (Left) Arterial Sitting Heart Rate Pre-Dialysis 83 BPM Sitting H eart Rate Post-Dialysis 77 BPM Temperature Pre-Dialysis 95.7 degF Temperature Post -Dialysis 97.5 degF June 17, 2022 [facility] Treatment 6335-61-78O82:05:00.000Z 2601-93-21F96:25:10.000Z BP Sitting (Pre-Dialysis) 145/82 mmHg BP Sitting (Post-Dialysis) 133/66 mmHg Concurrent Access: falseAV Fistula Forearm (Left) Arterial Sitting Heart Rate Pre-Dialysis 96 BPM Sitting H eart Rate Post-Dialysis 90 BPM Temperature Pre-Dialysis 97.3 degF Temperature Post -Dialysis 97.6 degF June 15, 2022 In-Center Hemodialysis Treatment 2536-48-66C27:06:00.000Z 4287-36-40G88:23:16.000Z BP Sitting (Pre-Dialysis) 130/71 mmHg BP Sitting (Post-Dialysis) 129/59 mmHg Concurrent Access: falseAV Fistula Forearm (Left) Arterial Sitting Heart Rate Pre-Dialysis 86 BPM Sitting H eart Rate Post-Dialysis 79 BPM Temperature Pre-Dialysis 96.8 degF Temperature Post -Dialysis 97.2 degF June 13, 2022 In-Center Hemodialysis Treatment 8390-98-07N80:08:00.000Z 9227-92-57D17:25:52.000Z BP Sitting (Pre-Dialysis) 162/89 mmHg BP Sitting (Post-Dialysis) 118/55 mmHg Concurrent Access: falseAV Fistula Forearm (Left) Arterial Sitting Heart Rate Pre-Dialysis 85 BPM Sitting H eart Rate Post-Dialysis 78 BPM Temperature Pre-Dialysis 96.3 degF June 10, 2022 In-Center Hemodialysis Treatment 7191-94-66J19:03:38.000Z 0885-82-34L86:21:33.000Z BP Sitting (Pre-Dialysis) 175/76 mmHg BP Sitting (Post-Dialysis) 129/59 mmHg Concurrent Access: falseAV Fistula Forearm (Left) Arterial Sitting Heart Rate Pre-Dialysis 83 BPM Sitting H eart Rate Post-Dialysis 78 BPM Temperature Pre-Dialysis 97.4 degF Temperature Post -Dialysis 97.3 degF June 08, 2022 In-Center Hemodialysis Treatment 5178-88-52X08:06:00.000Z 2913-49-23N62:06:18.000Z BP Sitting (Pre-Dialysis) 146/80 mmHg BP Sitting (Post-Dialysis) 148/71 mmHg Concurrent Access: falseAV Fistula Forearm (Left) Arterial Sitting Heart Rate Pre-Dialysis 88 BPM Sitting H eart Rate Post-Dialysis 82 BPM Temperature Pre-Dialysis 97.4 degF Temperature Post -Dialysis 98.1 degF June 06, 2022 In-Center Hemodialysis Treatment 2581-41-68F43:00:00.000Z 7995-68-52D72:16:51.000Z BP Sitting (Pre-Dialysis) 140/69 mmHg BP Sitting (Post-Dialysis) 149/59 mmHg Concurrent Access: falseAV Fistula Forearm (Left) Arterial Sitting Heart Rate Pre-Dialysis 87 BPM Sitting H eart Rate Post-Dialysis 77 BPM Temperature Pre-Dialysis 97.6 degF Temperature Post -Dialysis 97.7 degF June 03, 2022 In-Center Hemodialysis Treatment 1228-51-52Z34:04:25.000Z 4016-26-41Y49:19:50.000Z BP Sitting (Pre-Dialysis) 124/58 mmHg BP Sitting (Post-Dialysis) 126/57 mmHg Concurrent Access: falseAV Fistula Forearm (Left) Arterial Sitting Heart Rate Pre-Dialysis 76 BPM Sitting H eart Rate Post-Dialysis 66 BPM Temperature Pre-Dialysis 97.5 degF Temperature Post -Dialysis 96.6 degF June 01, 2022 In-Center Hemodialysis Treatment 1084-98-82R66:07:00.000Z 6457-59-22X76:23:01.000Z BP Sitting (Pre-Dialysis) 133/75 mmHg BP Sitting (Post-Dialysis) 145/56 mmHg Concurrent Access: falseAV Fistula Forearm (Left) Arterial Sitting Heart Rate Pre-Dialysis 87 BPM Sitting H eart Rate Post-Dialysis 71 BPM Temperature Pre-Dialysis 97.3 degF Temperature Post -Dialysis 96.9 degF May 30, 2022 In-Center Hemodialysis Treatment 4787-80-88W16:04:32.000Z 9594-58-97X47:26:37.000Z BP Sitting (Pre-Dialysis) 125/71 mmHg BP Sitting (Post-Dialysis) 144/62 mmHg Concurrent Access: falseAV Fistula Forearm (Left) Arterial Sitting Heart Rate Pre-Dialysis 88 BPM Sitting H eart Rate Post-Dialysis 79 BPM Temperature Pre-Dialysis 98.6 degF Temperature Post -Dialysis 98.1 degF May 27, 2022 In-Center Hemodialysis Treatment 6611-59-18M27:03:00.000Z 9246-98-13Y41:21:03.000Z BP Sitting (Pre-Dialysis) 141/54 mmHg BP Sitting (Post-Dialysis) 101/71 mmHg Concurrent Access: falseAV Fistula Forearm (Left) Arterial Sitting Heart Rate Pre-Dialysis 80 BPM Sitting H eart Rate Post-Dialysis 77 BPM Temperature Pre-Dialysis 97.2 degF Temperature Post -Dialysis 97.8 degF May 25, 2022 In-Center Hemodialysis Treatment 4296-58-70O42:06:00.000Z 9320-08-34S41:24:21.000Z BP Sitting (Pre-Dialysis) 119/69 mmHg BP Sitting (Post-Dialysis) 128/55 mmHg Concurrent Access: falseAV Fistula Forearm (Left) Arterial Sitting Heart Rate Pre-Dialysis 84 BPM Sitting H eart Rate Post-Dialysis 69 BPM Temperature Pre-Dialysis 97.7 degF Temperature Post -Dialysis 98.1 degF May 23, 2022 In-Center Hemodialysis Treatment 8271-97-02O42:04:00.000Z 6446-05-52J92:22:05.000Z BP Sitting (Pre-Dialysis) 116/66 mmHg BP Sitting (Post-Dialysis) 112/54 mmHg Concurrent Access: falseAV Fistula Forearm (Left) Arterial Sitting Heart Rate Pre-Dialysis 87 BPM Sitting H eart Rate Post-Dialysis 79 BPM Temperature Pre-Dialysis 97 degF Temperature Post -Dialysis 98.6 degF May 20, 2022 In-Center Hemodialysis Treatment 4498-44-79Z38:59:00.000Z 9123-42-01N78:19:24.000Z BP Sitting (Pre-Dialysis) 103/62 mmHg BP Sitting (Post-Dialysis) 118/58 mmHg Concurrent Access: falseAV Fistula Forearm (Left) Arterial Sitting Heart Rate Pre-Dialysis 84 BPM Sitting H eart Rate Post-Dialysis 78 BPM Temperature Pre-Dialysis 97.6 degF Temperature Post -Dialysis 97.9 degF May 18, 2022 In-Center Hemodialysis Treatment 3777-29-20Q25:11:00.000Z 7995-52-38O54:28:26.000Z BP Sitting (Pre-Dialysis) 114/70 mmHg BP Sitting (Post-Dialysis) 128/55 mmHg Concurrent Access: falseAV Fistula Forearm (Left) Arterial Sitting Heart Rate Pre-Dialysis 82 BPM Sitting H eart Rate Post-Dialysis 78 BPM Temperature Pre-Dialysis 96 degF Temperature Post -Dialysis 98 degF May 09, 2022 [facility] Hemodialysis Treatment 0248-96-38U42:04:00.000Z 3360-79-52V05:05:00.000Z BP Sitting (Pre-Dialysis) 152/89 mmHg BP Sitting (Post-Dialysis) 168/93 mmHg Concurrent Access: falseAV Fistula Forearm (Left) Arterial Sitting Heart Rate Pre-Dialysis 97 BPM Sitting H eart Rate Post-Dialysis 94 BPM Temperature Pre-Dialysis 96.3 degF Temperature Post -Dialysis 98.2 degF May 06, 2022 In-Center Hemodialysis Treatment 0201-72-69Z95:08:00.000Z 8709-48-73Y46:23:00.000Z BP Sitting (Pre-Dialysis) 168/73 mmHg BP Sitting (Post-Dialysis) 135/65 mmHg Concurrent Access: falseAV Fistula Forearm (Left) Arterial Sitting Heart Rate Pre-Dialysis 88 BPM Sitting H eart Rate Post-Dialysis 84 BPM Temperature Pre-Dialysis 97 degF Temperature Post -Dialysis 97.3 degF May 04, 2022 In-Center Hemodialysis Treatment 8013-38-10O25:10:00.000Z 3355-73-19W75:27:00.000Z BP Sitting (Pre-Dialysis) 157/92 mmHg BP Sitting (Post-Dialysis) 144/80 mmHg Concurrent Access: falseAV Fistula Forearm (Left) Arterial Sitting Heart Rate Pre-Dialysis 85 BPM Sitting H eart Rate Post-Dialysis 90 BPM Temperature Pre-Dialysis 96.4 degF Temperature Post -Dialysis 98.4 degF May 02, 2022 In-Center Hemodialysis Treatment 2204-73-53F97:04:00.000Z 9474-85-27J97:19:10.000Z BP Sitting (Pre-Dialysis) 152/82 mmHg BP Sitting (Post-Dialysis) 130/74 mmHg Concurrent Access: falseAV Fistula Forearm (Left) Arterial Sitting Heart Rate Pre-Dialysis 91 BPM Sitting H eart Rate Post-Dialysis 78 BPM Temperature Pre-Dialysis 97.7 degF Temperature Post -Dialysis 98.2 degF April 29, 2022 In-Center Hemodialysis Treatment 8807-41-06E79:02:00.000Z 7178-42-52U03:28:56.000Z BP Sitting (Pre-Dialysis) 150/79 mmHg BP Sitting (Post-Dialysis) 147/74 mmHg Concurrent Access: falseAV Fistula Forearm (Left) Arterial Sitting Heart Rate Pre-Dialysis 93 BPM Sitting H eart Rate Post-Dialysis 79 BPM Temperature Pre-Dialysis 97.3 degF Temperature Post -Dialysis 98 degF April 27, 2022 [facility] Hemodialysis Treatment 6231-90-69Z88:10:00.000Z 7435-60-48Y22:27:01.000Z BP Sitting (Pre-Dialysis) 140/78 mmHg BP Sitting (Post-Dialysis) 122/72 mmHg Concurrent Access: falseAV Fistula Forearm (Left) Arterial Sitting Heart Rate Pre-Dialysis 138 BPM Sitting H eart Rate Post-Dialysis 79 BPM Temperature Pre-Dialysis 97 degF Temperature Post -Dialysis 97.2 degF April 25, 2022 [facility] Hemodialysis Treatment 0859-82-97J05:06:48.000Z 1238-99-30M74:23:03.000Z BP Sitting (Pre-Dialysis) 151/85 mmHg BP Sitting (Post-Dialysis) 134/67 mmHg Concurrent Access: falseAV Fistula Forearm (Left) Arterial Sitting Heart Rate Pre-Dialysis 97 BPM Sitting H eart Rate Post-Dialysis 84 BPM Temperature Pre-Dialysis 97.3 degF Temperature Post -Dialysis 97.5 degF April 22, 2022 In-Center Hemodialysis Treatment [id number]:01:00.000Z [id number]:21:12.000Z BP Sitting (Pre-Dialysis) 131/75 mmHg BP Sitting (Post-Dialysis) 121/66 mmHg Concurrent Access: falseAV Fistula Forearm (Left) Arterial Sitting Heart Rate Pre-Dialysis 89 BPM Sitting H eart Rate Post-Dialysis 81 BPM Temperature Pre-Dialysis 97.3 degF Temperature Post -Dialysis 97.3 degF April 20, 2022 In-Center Hemodialysis Treatment [id number]:01:00.000Z [id number]:20:32.000Z BP Sitting (Pre-Dialysis) 115/64 mmHg BP Sitting (Post-Dialysis) 122/56 mmHg Concurrent Access: falseAV Fistula Forearm (Left) Arterial Sitting Heart Rate Pre-Dialysis 101 BPM Sitting H eart Rate Post-Dialysis 86 BPM Temperature Pre-Dialysis 97.3 degF Temperature Post -Dialysis 98.1 degF April 18, 2022 In-Center Hemodialysis Treatment [id number]:03:00.000Z [id number]:21:09.000Z BP Sitting (Pre-Dialysis) 134/82 mmHg BP Sitting (Post-Dialysis) 135/77 mmHg Concurrent Access: falseAV Fistula Forearm (Left) Arterial Sitting Heart Rate Pre-Dialysis 92 BPM Sitting H eart Rate Post-Dialysis 84 BPM Temperature Pre-Dialysis 96.4 degF Temperature Post -Dialysis 97.1 degF April 15, 2022 In-Center Hemodialysis Treatment [id number]:11:00.000Z [id number]:28:36.000Z BP Sitting (Pre-Dialysis) 151/83 mmHg BP Sitting (Post-Dialysis) 128/63 mmHg Concurrent Access: falseAV Fistula Forearm (Left) Arterial Sitting Heart Rate Pre-Dialysis 99 BPM Sitting H eart Rate Post-Dialysis 89 BPM Temperature Pre-Dialysis 97.7 degF Temperature Post -Dialysis 98 degF April 13, 2022 In-Center Hemodialysis Treatment [id number]:10:00.000Z [id number]:27:18.000Z BP Sitting (Pre-Dialysis) 143/82 mmHg BP Sitting (Post-Dialysis) 140/70 mmHg Concurrent Access: falseAV Fistula Forearm (Left) Arterial Sitting Heart Rate Pre-Dialysis 95 BPM Sitting H eart Rate Post-Dialysis 84 BPM Temperature Pre-Dialysis 97.9 degF Temperature Post -Dialysis 98.5 degF April 11, 2022 In-Center Hemodialysis Treatment [id number]:03:00.000Z [id number]:20:35.000Z BP Sitting (Pre-Dialysis) 129/71 mmHg BP Sitting (Post-Dialysis) 134/75 mmHg Concurrent Access: falseAV Fistula Forearm (Left) Arterial Sitting Heart Rate Pre-Dialysis 88 BPM Sitting H eart Rate Post-Dialysis 82 BPM Temperature Pre-Dialysis 97 degF Temperature Post -Dialysis 97.8 degF April 08, 2022 In-Center Hemodialysis Treatment [id number]:04:00.000Z [id number]:21:53.000Z BP Sitting (Pre-Dialysis) 138/87 mmHg BP Sitting (Post-Dialysis) 160/80 mmHg Concurrent Access: falseAV Fistula Forearm (Left) Arterial Sitting Heart Rate Pre-Dialysis 102 BPM Sitting H eart Rate Post-Dialysis 90 BPM Temperature Pre-Dialysis 97.1 degF Temperature Post -Dialysis 97 degF April 06, 2022 In-Center Hemodialysis Treatment [id number]:02:00.000Z [id number]:19:09.000Z BP Sitting (Pre-Dialysis) 164/84 mmHg BP Sitting (Post-Dialysis) 135/80 mmHg Concurrent Access: falseAV Fistula Forearm (Left) Arterial Sitting Heart Rate Pre-Dialysis 94 BPM Sitting H eart Rate Post-Dialysis 90 BPM Temperature Pre-Dialysis 97.2 degF Temperature Post -Dialysis 97.2 degF April 04, 2022 In-Center Hemodialysis Treatment [id number]:03:00.000Z [id number]:23:06.000Z BP Sitting (Pre-Dialysis) 150/69 mmHg BP Sitting (Post-Dialysis) 130/73 mmHg Concurrent Access: falseAV Fistula Forearm (Left) Arterial Sitting Heart Rate Pre-Dialysis 96 BPM Sitting H eart Rate Post-Dialysis 84 BPM Temperature Pre-Dialysis 97.1 degF Temperature Post -Dialysis 98.3 degF April 01, 2022 In-Center Hemodialysis Treatment [id number]:11:00.000Z [id number]:30:58.000Z BP Sitting (Pre-Dialysis) 142/83 mmHg BP Sitting (Post-Dialysis) 172/73 mmHg Concurrent Access: falseAV Fistula Forearm (Left) Arterial Sitting Heart Rate Pre-Dialysis 89 BPM Sitting H eart Rate Post-Dialysis 79 BPM Temperature Pre-Dialysis 97.2 degF Temperature Post -Dialysis 97.4 degF March 30, 2022 In-Center Hemodialysis Treatment [id number]:24:00.000Z 6928-76-15O49:40:59.000Z BP Sitting (Pre-Dialysis) 147/85 mmHg BP Sitting (Post-Dialysis) 165/86 mmHg Concurrent Access: falseAV Fistula Forearm (Left) Arterial Sitting Heart Rate Pre-Dialysis 83 BPM Sitting H eart Rate Post-Dialysis 84 BPM Temperature Pre-Dialysis 98 degF Temperature Post -Dialysis 98.3 degF March 28, 2022 In-Center Hemodialysis Treatment [id number]:01:00.000Z [id number]:18:17.000Z BP Sitting (Pre-Dialysis) 126/81 mmHg BP Sitting (Post-Dialysis) 137/72 mmHg Concurrent Access: falseAV Fistula Forearm (Left) Arterial Sitting Heart Rate Pre-Dialysis 102 BPM Sitting H eart Rate Post-Dialysis 75 BPM Temperature Pre-Dialysis 96.1 degF Temperature Post -Dialysis 97.4 degF March 25, 2022 In-Center Hemodialysis Treatment [id number]:12:00.000Z [id number]:29:17.000Z BP Sitting (Pre-Dialysis) 159/84 mmHg BP Sitting (Post-Dialysis) 152/61 mmHg Concurrent Access: falseAV Fistula Forearm (Left) Arterial Sitting Heart Rate Pre-Dialysis 86 BPM Sitting H eart Rate Post-Dialysis 79 BPM Temperature Pre-Dialysis 97.1 degF Temperature Post -Dialysis 97.2 degF March 23, 2022 In-Center Hemodialysis Treatment [id number]:02:00.000Z [id number]:19:33.000Z BP Sitting (Pre-Dialysis) 136/83 mmHg BP Sitting (Post-Dialysis) 134/75 mmHg Concurrent Access: falseAV Fistula Forearm (Left) Arterial Sitting Heart Rate Pre-Dialysis 89 BPM Sitting H eart Rate Post-Dialysis 80 BPM Temperature Pre-Dialysis 98.1 degF Temperature Post -Dialysis 97.6 degF March 21, 2022 In-Center Hemodialysis Treatment [id number]:18:00.000Z [id number]:34:24.000Z BP Sitting (Pre-Dialysis) 150/82 mmHg BP Sitting (Post-Dialysis) 134/69 mmHg Concurrent Access: falseAV Fistula Forearm (Left) Arterial Sitting Heart Rate Pre-Dialysis 91 BPM Sitting H eart Rate Post-Dialysis 80 BPM Temperature Pre-Dialysis 97.2 degF Temperature Post -Dialysis 97.2 degF March 18, 2022 In-Center Hemodialysis Treatment [id number]:13:00.000Z [id number]:30:10.000Z BP Sitting (Pre-Dialysis) 123/67 mmHg BP Sitting (Post-Dialysis) 132/72 mmHg Concurrent Access: falseAV Fistula Forearm (Left) Arterial Sitting Heart Rate Pre-Dialysis 89 BPM Sitting H eart Rate Post-Dialysis 81 BPM Temperature Pre-Dialysis 96.9 degF Temperature Post -Dialysis 95.8 degF March 16, 2022 In-Center Hemodialysis Treatment [id number]:12:00.000Z 5668-33-50Z52:15:54.000Z BP Sitting (Pre-Dialysis) 149/85 mmHg BP Sitting (Post-Dialysis) 147/81 mmHg Concurrent Access: falseAV Fistula Forearm (Left) Arterial Sitting Heart Rate Pre-Dialysis 95 BPM Sitting H eart Rate Post-Dialysis 78 BPM Temperature Pre-Dialysis 98.7 degF Temperature Post -Dialysis 96.8 degF March 14, 2022 In-Center Hemodialysis Treatment [id number]:27:00.000Z [id number]:19:44.000Z BP Sitting (Pre-Dialysis) 153/75 mmHg BP Sitting (Post-Dialysis) 139/58 mmHg Concurrent Access: falseAV Fistula Forearm (Left) Arterial Sitting Heart Rate Pre-Dialysis 92 BPM Sitting H eart Rate Post-Dialysis 81 BPM Temperature Pre-Dialysis 97.5 degF Temperature Post -Dialysis 97.6 degF March 11, 2022 In-Center Hemodialysis Treatment [id number]:07:00.000Z [id number]:18:36.000Z BP Sitting (Pre-Dialysis) 150/80 mmHg BP Sitting (Post-Dialysis) 149/80 mmHg Concurrent Access: falseAV Fistula Forearm (Left) Arterial Sitting Heart Rate Pre-Dialysis 95 BPM Sitting H eart Rate Post-Dialysis 90 BPM Temperature Pre-Dialysis 97.2 degF Temperature Post -Dialysis 97.6 degF March 09, 2022 In-Center Hemodialysis Treatment [id number]:08:00.000Z 8413-53-73J04:24:46.000Z BP Sitting (Pre-Dialysis) 145/82 mmHg BP Sitting (Post-Dialysis) 164/82 mmHg Concurrent Access: falseAV Fistula Forearm (Left) Arterial Sitting Heart Rate Pre-Dialysis 98 BPM Sitting H eart Rate Post-Dialysis 76 BPM Temperature Pre-Dialysis 97.2 degF Temperature Post -Dialysis 97.3 degF March 07, 2022 In-Center Hemodialysis Treatment [id number]:50:00.000Z 3646-03-55T62:53:21.000Z BP Sitting (Pre-Dialysis) 142/83 mmHg BP Sitting (Post-Dialysis) 153/78 mmHg Concurrent Access: falseAV Fistula Forearm (Left) Arterial Sitting Heart Rate Pre-Dialysis 103 BPM Sitting H eart Rate Post-Dialysis 84 BPM Temperature Pre-Dialysis 96.7 degF Temperature Post -Dialysis 97.6 degF March 04, 2022 In-Center Hemodialysis Treatment 7460-30-34W58:06:00.000Z 3793-36-36U21:23:00.000Z BP Sitting (Pre-Dialysis) 155/84 mmHg BP Sitting (Post-Dialysis) 136/84 mmHg Concurrent Access: falseAV Fistula Forearm (Left) Arterial Sitting Heart Rate Pre-Dialysis 92 BPM Sitting H eart Rate Post-Dialysis 87 BPM Temperature Pre-Dialysis 97.5 degF Temperature Post -Dialysis 97.6 degF March 02, 2022 In-Center Hemodialysis Treatment [id number]:06:00.000Z 5705-03-54P81:22:54.000Z BP Sitting (Pre-Dialysis) 109/64 mmHg BP Sitting (Post-Dialysis) 116/59 mmHg Concurrent Access: falseAV Fistula Forearm (Left) Arterial Sitting Heart Rate Pre-Dialysis 92 BPM Sitting H eart Rate Post-Dialysis 59 BPM Temperature Pre-Dialysis 97.8 degF Temperature Post -Dialysis 97.2 degF February 28, 2022 In-Center Hemodialysis Treatment [id number]:07:00.000Z [id number]:24:38.000Z BP Sitting (Pre-Dialysis) 149/82 mmHg BP Sitting (Post-Dialysis) 138/68 mmHg Concurrent Access: falseAV Fistula Forearm (Left) Arterial Sitting Heart Rate Pre-Dialysis 95 BPM Sitting H eart Rate Post-Dialysis 83 BPM Temperature Pre-Dialysis 97.6 degF Temperature Post -Dialysis 97.9 degF February 25, 2022 In-Center Hemodialysis Treatment [id number]:12:00.000Z [id number]:29:41.000Z BP Sitting (Pre-Dialysis) 139/82 mmHg BP Sitting (Post-Dialysis) 133/80 mmHg Concurrent Access: falseAV Fistula Forearm (Left) Arterial Sitting Heart Rate Pre-Dialysis 88 BPM Sitting H eart Rate Post-Dialysis 82 BPM Temperature Pre-Dialysis 97.4 degF Temperature Post -Dialysis 97.9 degF February 23, 2022 In-Center Hemodialysis Treatment [id number]:06:00.000Z [id number]:32:51.000Z BP Sitting (Pre-Dialysis) 124/74 mmHg BP Sitting (Post-Dialysis) 116/66 mmHg Concurrent Access: falseAV Fistula Forearm (Left) Arterial BP Standing (Pre-Dialysis) 124/74 mmHg Sitting Heart Rate Post-Dialysis 79 BPM Sitting Heart Rate Pre-Dialysis 94 BPM Temperatu re Post-Dialysis 98 degF Standing Heart Rate Pre-Dialysis 76 BPM Temperature Pre-Dialysis 97.2 degF February 21, 2022 In-Center Hemodialysis Treatment [id number]:02:00.000Z [id number]:22:11.000Z BP Sitting (Pre-Dialysis) 136/71 mmHg BP Sitting (Post-Dialysis) 112/62 mmHg Concurrent Access: falseAV Fistula Forearm (Left) Arterial Sitting Heart Rate Pre-Dialysis 87 BPM Sitting H eart Rate Post-Dialysis 82 BPM Temperature Pre-Dialysis 97.9 degF Temperature Post -Dialysis 98 degF February 18, 2022 In-Center Hemodialysis Treatment 5395-16-02L00:07:00.000Z 5147-10-08N92:26:00.000Z BP Sitting (Pre-Dialysis) 124/70 mmHg BP Sitting (Post-Dialysis) 109/52 mmHg Concurrent Access: falseAV Fistula Forearm (Left) Arterial Sitting Heart Rate Pre-Dialysis 89 BPM Sitting H eart Rate Post-Dialysis 78 BPM Temperature Pre-Dialysis 97.6 degF Temperature Post -Dialysis 98 degF February 16, 2022 In-Center Hemodialysis Treatment [id number]:04:00.000Z [id number]:23:39.000Z BP Sitting (Pre-Dialysis) 135/68 mmHg BP Sitting (Post-Dialysis) 123/54 mmHg Concurrent Access: falseAV Fistula Forearm (Left) Arterial Sitting Heart Rate Pre-Dialysis 88 BPM Sitting H eart Rate Post-Dialysis 77 BPM Temperature Pre-Dialysis 97.6 degF Temperature Post -Dialysis 97.6 degF February 14, 2022 In-Center Hemodialysis Treatment [id number]:07:00.000Z [id number]:29:51.000Z BP Sitting (Pre-Dialysis) 145/75 mmHg BP Sitting (Post-Dialysis) 123/64 mmHg Concurrent Access: falseAV Fistula Forearm (Left) Arterial Sitting Heart Rate Pre-Dialysis 96 BPM Sitting H eart Rate Post-Dialysis 83 BPM Temperature Pre-Dialysis 95.1 degF Temperature Post -Dialysis 97.4 degF February 09, 2022 In-Center Hemodialysis Treatment [id number]:11:00.000Z [id number]:37:26.000Z BP Sitting (Pre-Dialysis) 126/75 mmHg BP Sitting (Post-Dialysis) 112/55 mmHg Concurrent Access: falseAV Fistula Forearm (Left) Arterial Sitting Heart Rate Pre-Dialysis 91 BPM Sitting H eart Rate Post-Dialysis 73 BPM Temperature Pre-Dialysis 97.7 degF Temperature Post -Dialysis 97.5 degF February 07, 2022 In-Center Hemodialysis Treatment [id number]:04:00.000Z [id number]:24:47.000Z BP Sitting (Pre-Dialysis) 136/81 mmHg BP Sitting (Post-Dialysis) 130/66 mmHg Concurrent Access: falseAV Fistula Forearm (Left) Arterial Sitting Heart Rate Pre-Dialysis 97 BPM Sitting H eart Rate Post-Dialysis 77 BPM Temperature Pre-Dialysis 97.2 degF Temperature Post -Dialysis 97.3 degF February 04, 2022 In-Center Hemodialysis Treatment [id number]:09:00.000Z [id number]:27:31.000Z BP Sitting (Pre-Dialysis) 129/78 mmHg BP Sitting (Post-Dialysis) 115/59 mmHg Concurrent Access: falseAV Fistula Forearm (Left) Arterial Sitting Heart Rate Pre-Dialysis 92 BPM Sitting H eart Rate Post-Dialysis 82 BPM Temperature Pre-Dialysis 97.3 degF Temperature Post -Dialysis 97.3 degF February 02, 2022 In-Center Hemodialysis Treatment [id number]:52:00.000Z [id number]:39:14.000Z BP Sitting (Pre-Dialysis) 113/91 mmHg BP Sitting (Post-Dialysis) 110/55 mmHg Concurrent Access: falseAV Fistula Forearm (Left) Arterial Sitting Heart Rate Pre-Dialysis 86 BPM Sitting H eart Rate Post-Dialysis 79 BPM Temperature Pre-Dialysis 97.3 degF Temperature Post -Dialysis 97 degF January 31, 2022 In-Center Hemodialysis Treatment [id number]:16:00.000Z [id number]:35:00.000Z BP Sitting (Pre-Dialysis) 111/56 mmHg BP Sitting (Post-Dialysis) 111/60 mmHg Concurrent Access: falseAV Fistula Forearm (Left) Arterial Sitting Heart Rate Pre-Dialysis 87 BPM Sitting H eart Rate Post-Dialysis 89 BPM Temperature Pre-Dialysis 96.2 degF Temperature Post -Dialysis 97.9 degF DIALYSIS ORDER Dialysis Procedure Orders Type of Dialysis Procedure Order Order Date/Time Observations In-Center Hemodialysis Treatment March 18, 2024 Target Weight 73.5 kg Dialysate Flow Rate 500 mL/min Blood Flow Rate 400 mL/min Treatment Time 195 min(total) Max UF Rate 13 mL/kg/hr Base Sodium Dialysate Base Sodium 138 mE q/L dialysate_temp 36 ?C BiCarb Dialysate BiCarbonate 37 mEq/L Access Concurrent No Arterial Access [facility] [place] [facility] ([facility]) (Subclavian (Right)) Venous Access [facility] [place] [facility] ([facility]) (Subclavian (Right)) Dialyzer Nipro Elisio 15H 126 4 [email or web address] Dialysate Bath Potassium Potassium 3 mEq /L Dialysate Bath Calcium Calcium 2.5 mEq/L [facility] Observation Value Target Weight 73.5 kg Dialysate Flow Rate 500 mL/min Blood Flow Rate 400 mL/min Treatment Time 195 min(total) Max UF Rate 13 mL/kg/hr Base Sodium Dialysate Base Sodium 138 mE q/L dialysate_temp 36 ?C BiCarb Dialysate BiCarbonate 37 mEq/L Access Concurrent No Arterial Access [facility] [place] [facility] ([facility]) (Subclavian (Right)) Venous Access [facility] [place] [facility] ([facility]) (Subclavian (Right)) Dialyzer Nipro Elisio 15H 126 4 [email or web address] Dialysate Bath Potassium Potassium 3 mEq /L Dialysate Bath Calcium Calcium 2.5 mEq/L In-Center Hemodialysis TreatmentNov2023 Observation Value Target Weight 73.5 kg Dialysate Flow Rate 500 mL/min Blood Flow Rate 300 mL/min Treatment Time 195 min(total) Max UF Rate 13 mL/kg/hr Base Sodium Dialysate Base Sodium 138 mE q/L dialysate_temp 36 ?C BiCarb Dialysate BiCarbonate 37 mEq/L Access Concurrent No Arterial Access AV Fistula (Forearm (Left)) Venous Access AV Fistula (Forearm (Left)) Arterial Needle Display WILLIS FRASER, 15 G x 1 , SHARP , TWIN Venous Needle PATRICIARO, ADOLPHIP, 15G x 1 , SHARP , TWIN Dialyzer Nipro Elisio 15H 126 4 [email or web address] Dialysate Bath Potassium Potassium 3 mEq /L Dialysate Bath Calcium Calcium 2.5 mEq/L Results Adequacy Description Draw Date Result/Unit Status Ref Range Result Comments Creatinine [Mass/volume] in Serum or Plasma 2024-03-14 18:40:25 8.81 mg/dL F 0.5-1.1 URR% 2024-02-29 19:26:03 71 % F PATIENT AGE 2024-02-29 19:26:03 68 Years F KT/V PRESCRIBED 2024-02-29 19:26:03 1.83 F VM (KT/V MEAN VOL) 2024-02-29 19:26:03 33.6 F VT (KT/V TX VOL) 2024-02-29 19:26:03 33.3 L F eKt/V 2024-02-29 19:26:03 1.15 F Std Renal KT/V 2024-02-29 19:26:03 N/A F TOTAL HOURS/WEEK DIALYSIS 2024-02-29 19:26:03 9 hrs F stdKT/V Total 2024-02-29 19:26:03 N/A F DIALYZER FLOW-QD 2024-02-29 19:26:03 500 mL/min F BSA YANET 2024-02-29 19:26:03 1.76 sq m F HEIGHT IN INCHES 2024-02-29 19:26:03 63 Inches F Residual kt/v 2024-02-29 19:26:03 F nPCR 2024-02-29 19:26:03 0.88 G/KG/D F Total Kt/V 2024-02-29 19:26:03 1.37 F TBW (Page) 2024-02-29 19:26:03 33.1 Liters F spKt/V 2024-02-29 19:26:03 1.37 F CURRENT KRU 2024-02-29 19:26:03 F LENGTH OF DIALYSIS 2024-02-29 19:26:03 185 min F Dialyzer JANNETH 2024-02-29 19:26:03 1264 Calc F WEIGHT - POST DAY 1 2024-02-29 19:26:03 73.9 kg F WEIGHT - PRE DAY 1 2024-02-29 19:26:03 74.2 kg F WEIGHT (KG) 2024-02-29 19:26:03 73.5 kg F PRESCRIBED DAYS/WEEK 2024-02-29 19:26:03 3 Day/Wk F stdKt/V (DIAL) 2024-02-29 19:26:03 N/A F AMPUTATE FACTOR 2024-02-29 19:26:03 0 F BLOOD FLOW-QWB 2024-02-29 19:26:03 333 F URR% 2024-02-29 19:26:03 71 % F DIALYZER FLOW-QD 2024-02-29 19:26:03 500 mL/min F LENGTH OF DIALYSIS 2024-02-29 19:26:03 185 min F PATIENT AGE 2024-02-29 19:26:03 68 Years F Dialyzer JANNETH 2024-02-29 19:26:03 1264 Calc F BSA YANET 2024-02-29 19:26:03 1.76 sq m F WEIGHT - PRE DAY 1 2024-02-29 19:26:03 74.2 kg F HEIGHT IN INCHES 2024-02-29 19:26:03 63 Inches F WEIGHT - POST DAY 1 2024-02-29 19:26:03 73.9 kg F WEIGHT (KG) 2024-02-29 19:26:03 73.5 kg F PRESCRIBED DAYS/WEEK 2024-02-29 19:26:03 3 Day/Wk F VT (KT/V TX VOL) 2024-02-29 19:26:03 33.3 L F VM (KT/V MEAN VOL) 2024-02-29 19:26:03 33.6 F Total Kt/V 2024-02-29 19:26:03 1.37 F KT/V PRESCRIBED 2024-02-29 19:26:03 1.83 F Residual kt/v 2024-02-29 19:26:03 F nPCR 2024-02-29 19:26:03 0.88 G/KG/D F TBW (Page) 2024-02-29 19:26:03 33.1 Liters F AMPUTATE FACTOR 2024-02-29 19:26:03 0 F spKt/V 2024-02-29 19:26:03 1.37 F eKt/V 2024-02-29 19:26:03 1.15 F stdKt/V (DIAL) 2024-02-29 19:26:03 N/A F Std Renal KT/V 2024-02-29 19:26:03 N/A F TOTAL HOURS/WEEK DIALYSIS 2024-02-29 19:26:03 9 hrs F BLOOD FLOW-QWB 2024-02-29 19:26:03 333 F stdKT/V Total 2024-02-29 19:26:03 N/A F CURRENT KRU 2024-02-29 19:26:03 F nPCR 2024-02-29 19:26:03 0.88 G/KG/D F stdKT/V Total 2024-02-29 19:26:03 N/A F VM (KT/V MEAN VOL) 2024-02-29 19:26:03 33.6 F TBW (Page) 2024-02-29 19:26:03 33.1 Liters F TOTAL HOURS/WEEK DIALYSIS 2024-02-29 19:26:03 9 hrs F eKt/V 2024-02-29 19:26:03 1.15 F WEIGHT - PRE DAY 1 2024-02-29 19:26:03 74.2 kg F WEIGHT - POST DAY 1 2024-02-29 19:26:03 73.9 kg F Dialyzer JANNETH 2024-02-29 19:26:03 1264 Calc F PRESCRIBED DAYS/WEEK 2024-02-29 19:26:03 3 Day/Wk F Std Renal KT/V 2024-02-29 19:26:03 N/A F PATIENT AGE 2024-02-29 19:26:03 68 Years F stdKt/V (DIAL) 2024-02-29 19:26:03 N/A F Total Kt/V 2024-02-29 19:26:03 1.37 F VT (KT/V TX VOL) 2024-02-29 19:26:03 33.3 L F Residual kt/v 2024-02-29 19:26:03 F LENGTH OF DIALYSIS 2024-02-29 19:26:03 185 min F WEIGHT (KG) 2024-02-29 19:26:03 73.5 kg F DIALYZER FLOW-QD 2024-02-29 19:26:03 500 mL/min F CURRENT KRU 2024-02-29 19:26:03 F HEIGHT IN INCHES 2024-02-29 19:26:03 63 Inches F spKt/V 2024-02-29 19:26:03 1.37 F KT/V PRESCRIBED 2024-02-29 19:26:03 1.83 F BLOOD FLOW-QWB 2024-02-29 19:26:03 333 F BSA YANET 2024-02-29 19:26:03 1.76 sq m F URR% 2024-02-29 19:26:03 71 % F AMPUTATE FACTOR 2024-02-29 19:26:03 0 F WEIGHT - POST DAY 1 2024-02-29 19:26:03 73.9 kg F WEIGHT - PRE DAY 1 2024-02-29 19:26:03 74.2 kg F stdKT/V Total 2024-02-29 19:26:03 N/A F Std Renal KT/V 2024-02-29 19:26:03 N/A F PRESCRIBED DAYS/WEEK 2024-02-29 19:26:03 3 Day/Wk F nPCR 2024-02-29 19:26:03 0.88 G/KG/D F Total Kt/V 2024-02-29 19:26:03 1.37 F TBW (Page) 2024-02-29 19:26:03 33.1 Liters F VM (KT/V MEAN VOL) 2024-02-29 19:26:03 33.6 F TOTAL HOURS/WEEK DIALYSIS 2024-02-29 19:26:03 9 hrs F PATIENT AGE 2024-02-29 19:26:03 68 Years F Dialyzer JANNETH 2024-02-29 19:26:03 1264 Calc F eKt/V 2024-02-29 19:26:03 1.15 F stdKt/V (DIAL) 2024-02-29 19:26:03 N/A F VT (KT/V TX VOL) 2024-02-29 19:26:03 33.3 L F DIALYZER FLOW-QD 2024-02-29 19:26:03 500 mL/min F KT/V PRESCRIBED 2024-02-29 19:26:03 1.83 F BLOOD FLOW-QWB 2024-02-29 19:26:03 333 F URR% 2024-02-29 19:26:03 71 % F WEIGHT (KG) 2024-02-29 19:26:03 73.5 kg F BSA YANET 2024-02-29 19:26:03 1.76 sq m F HEIGHT IN INCHES 2024-02-29 19:26:03 63 Inches F CURRENT KRU 2024-02-29 19:26:03 F LENGTH OF DIALYSIS 2024-02-29 19:26:03 185 min F AMPUTATE FACTOR 2024-02-29 19:26:03 0 F spKt/V 2024-02-29 19:26:03 1.37 F Residual kt/v 2024-02-29 19:26:03 F Urea nitrogen [Mass/volume] in Serum or Plasma 2024-02-29 19:23:18 34 mg/dL F 9.0-23.0 Urea nitrogen [Mass/volume] in Serum or Plasma 2024-02-29 19:23:18 34 mg/dL F 9.0-23.0 Urea nitrogen [Mass/volume] in Serum or Plasma 2024-02-29 19:23:18 34 mg/dL F 9.0-23.0 Urea nitrogen [Mass/volume] in Serum or Plasma 2024-02-29 19:23:18 34 mg/dL F 9.0-23.0 Urea nitrogen [Mass/volume] in Serum or Plasma --post dialysis 2024-02-29 18:25:17 10 mg/dL F 9.0-23.0 Urea nitrogen [Mass/volume] in Serum or Plasma --post dialysis 2024-02-29 18:25:17 10 mg/dL F 9.0-23.0 Urea nitrogen [Mass/volume] in Serum or Plasma --post dialysis 2024-02-29 18:25:17 10 mg/dL F 9.0-23.0 Urea nitrogen [Mass/volume] in Serum or Plasma --post dialysis 2024-02-29 18:25:17 10 mg/dL F 9.0-23.0 Creatinine [Mass/volume] in Serum or Plasma 2024-02-08 14:37:18 7.91 mg/dL F 0.5-1.1 Creatinine [Mass/volume] in Serum or Plasma 2024-02-08 14:37:18 7.91 mg/dL F 0.5-1.1 Creatinine [Mass/volume] in Serum or Plasma 2024-02-08 14:37:18 7.91 mg/dL F 0.5-1.1 eKt/V 2024-01-26 03:37:35 1.16 F Total Kt/V 2024-01-26 03:37:35 1.37 F PRESCRIBED DAYS/WEEK 2024-01-26 03:37:35 3 Day/Wk F DIALYZER FLOW-QD 2024-01-26 03:37:35 500 mL/min F BSA YANET 2024-01-26 03:37:35 1.76 sq m F Std Renal KT/V 2024-01-26 03:37:35 N/A F Residual kt/v 2024-01-26 03:37:35 F VM (KT/V MEAN VOL) 2024-01-26 03:37:35 33.7 F URR% 2024-01-26 03:37:35 70 % F DIALYZER FLOW-QD 2024-01-26 03:37:35 500 mL/min F Dialyzer JANNETH 2024-01-26 03:37:35 1264 Calc F PATIENT AGE 2024-01-26 03:37:35 68 Years F WEIGHT - POST DAY 1 2024-01-26 03:37:35 73.5 kg F BSA YANET 2024-01-26 03:37:35 1.76 sq m F LENGTH OF DIALYSIS 2024-01-26 03:37:35 195 min F WEIGHT - PRE DAY 1 2024-01-26 03:37:35 75 kg F HEIGHT IN INCHES 2024-01-26 03:37:35 63 Inches F WEIGHT (KG) 2024-01-26 03:37:35 73.5 kg F PRESCRIBED DAYS/WEEK 2024-01-26 03:37:35 3 Day/Wk F VM (KT/V MEAN VOL) 2024-01-26 03:37:35 33.7 F VT (KT/V TX VOL) 2024-01-26 03:37:35 33.2 L F Total Kt/V 2024-01-26 03:37:35 1.37 F KT/V PRESCRIBED 2024-01-26 03:37:35 1.62 F Residual kt/v 2024-01-26 03:37:35 F nPCR 2024-01-26 03:37:35 0.84 G/KG/D F TBW (Page) 2024-01-26 03:37:35 33 Liters F AMPUTATE FACTOR 2024-01-26 03:37:35 0 F spKt/V 2024-01-26 03:37:35 1.37 F Std Renal KT/V 2024-01-26 03:37:35 N/A F eKt/V 2024-01-26 03:37:35 1.16 F stdKt/V (DIAL) 2024-01-26 03:37:35 N/A F stdKT/V Total 2024-01-26 03:37:35 N/A F TOTAL HOURS/WEEK DIALYSIS 2024-01-26 03:37:35 9 hrs F BLOOD FLOW-QWB 2024-01-26 03:37:35 299 F CURRENT KRU 2024-01-26 03:37:35 F spKt/V 2024-01-26 03:37:35 1.37 F nPCR 2024-01-26 03:37:35 0.84 G/KG/D F stdKT/V Total 2024-01-26 03:37:35 N/A F BLOOD FLOW-QWB 2024-01-26 03:37:35 299 F AMPUTATE FACTOR 2024-01-26 03:37:35 0 F PRESCRIBED DAYS/WEEK 2024-01-26 03:37:35 3 Day/Wk F DIALYZER FLOW-QD 2024-01-26 03:37:35 500 mL/min F eKt/V 2024-01-26 03:37:35 1.16 F WEIGHT - PRE DAY 1 2024-01-26 03:37:35 75 kg F VT (KT/V TX VOL) 2024-01-26 03:37:35 33.2 L F TOTAL HOURS/WEEK DIALYSIS 2024-01-26 03:37:35 9 hrs F Total Kt/V 2024-01-26 03:37:35 1.37 F BSA YANET 2024-01-26 03:37:35 1.76 sq m F TBW (Page) 2024-01-26 03:37:35 33 Liters F URR% 2024-01-26 03:37:35 70 % F Dialyzer JANNETH 2024-01-26 03:37:35 1264 Calc F VM (KT/V MEAN VOL) 2024-01-26 03:37:35 33.7 F Std Renal KT/V 2024-01-26 03:37:35 N/A F KT/V PRESCRIBED 2024-01-26 03:37:35 1.62 F WEIGHT - POST DAY 1 2024-01-26 03:37:35 73.5 kg F Residual kt/v 2024-01-26 03:37:35 F HEIGHT IN INCHES 2024-01-26 03:37:35 63 Inches F WEIGHT (KG) 2024-01-26 03:37:35 73.5 kg F CURRENT KRU 2024-01-26 03:37:35 F stdKt/V (DIAL) 2024-01-26 03:37:35 N/A F LENGTH OF DIALYSIS 2024-01-26 03:37:35 195 min F PATIENT AGE 2024-01-26 03:37:35 68 Years F AMPUTATE FACTOR 2024-01-26 03:37:35 0 F stdKt/V (DIAL) 2024-01-26 03:37:35 N/A F WEIGHT - POST DAY 1 2024-01-26 03:37:35 73.5 kg F stdKT/V Total 2024-01-26 03:37:35 N/A F BLOOD FLOW-QWB 2024-01-26 03:37:35 299 F URR% 2024-01-26 03:37:35 70 % F KT/V PRESCRIBED 2024-01-26 03:37:35 1.62 F TBW (Page) 2024-01-26 03:37:35 33 Liters F PATIENT AGE 2024-01-26 03:37:35 68 Years F WEIGHT - PRE DAY 1 2024-01-26 03:37:35 75 kg F VT (KT/V TX VOL) 2024-01-26 03:37:35 33.2 L F nPCR 2024-01-26 03:37:35 0.84 G/KG/D F CURRENT KRU 2024-01-26 03:37:35 F spKt/V 2024-01-26 03:37:35 1.37 F eKt/V 2024-01-26 03:37:35 1.16 F VM (KT/V MEAN VOL) 2024-01-26 03:37:35 33.7 F HEIGHT IN INCHES 2024-01-26 03:37:35 63 Inches F Dialyzer JANNETH 2024-01-26 03:37:35 1264 Calc F LENGTH OF DIALYSIS 2024-01-26 03:37:35 195 min F PRESCRIBED DAYS/WEEK 2024-01-26 03:37:35 3 Day/Wk F Total Kt/V 2024-01-26 03:37:35 1.37 F WEIGHT (KG) 2024-01-26 03:37:35 73.5 kg F TOTAL HOURS/WEEK DIALYSIS 2024-01-26 03:37:35 9 hrs F Residual kt/v 2024-01-26 03:37:35 F DIALYZER FLOW-QD 2024-01-26 03:37:35 500 mL/min F Std Renal KT/V 2024-01-26 03:37:35 N/A F BSA YANET 2024-01-26 03:37:35 1.76 sq m F AMPUTATE FACTOR 2024-01-26 03:37:35 0 F PATIENT AGE 2024-01-26 03:37:35 68 Years F WEIGHT - POST DAY 1 2024-01-26 03:37:35 73.5 kg F stdKT/V Total 2024-01-26 03:37:35 N/A F URR% 2024-01-26 03:37:35 70 % F CURRENT KRU 2024-01-26 03:37:35 F VT (KT/V TX VOL) 2024-01-26 03:37:35 33.2 L F TBW (Page) 2024-01-26 03:37:35 33 Liters F KT/V PRESCRIBED 2024-01-26 03:37:35 1.62 F WEIGHT - PRE DAY 1 2024-01-26 03:37:35 75 kg F stdKt/V (DIAL) 2024-01-26 03:37:35 N/A F BLOOD FLOW-QWB 2024-01-26 03:37:35 299 F nPCR 2024-01-26 03:37:35 0.84 G/KG/D F HEIGHT IN INCHES 2024-01-26 03:37:35 63 Inches K WEIGHT (KG) 2024-01-26 03:37:35 73.5 kg F LENGTH OF DIALYSIS 2024-01-26 03:37:35 195 min F spKt/V 2024-01-26 03:37:35 1.37 F TOTAL HOURS/WEEK DIALYSIS 2024-01-26 03:37:35 9 hrs F Dialyzer JANNETH 2024-01-26 03:37:35 1264 Calc F Urea nitrogen [Mass/volume] in Serum or Plasma 2024-01-26 03:35:26 43 mg/dL F 9.0-23.0 Urea nitrogen [Mass/volume] in Serum or Plasma 2024-01-26 03:35:26 43 mg/dL F 9.0-23.0 Urea nitrogen [Mass/volume] in Serum or Plasma 2024-01-26 03:35:26 43 mg/dL F 9.0-23.0 Urea nitrogen [Mass/volume] in Serum or Plasma 2024-01-26 03:35:26 43 mg/dL F 9.0-23.0 Urea nitrogen [Mass/volume] in Serum or Plasma --post dialysis 2024-01-26 00:07:21 13 mg/dL F 9.0-23.0 Urea nitrogen [Mass/volume] in Serum or Plasma --post dialysis 2024-01-26 00:07:21 13 mg/dL F 9.0-23.0 Urea nitrogen [Mass/volume] in Serum or Plasma --post dialysis 2024-01-26 00:07:21 13 mg/dL F 9.0-23.0 Urea nitrogen [Mass/volume] in Serum or Plasma --post dialysis 2024-01-26 00:07:21 13 mg/dL F 9.0-23.0 Creatinine [Mass/volume] in Serum or Plasma 2024-01-11 14:43:13 8.49 mg/dL F 0.5-1.1 Creatinine [Mass/volume] in Serum or Plasma 2024-01-11 14:43:13 8.49 mg/dL F 0.5-1.1 Creatinine [Mass/volume] in Serum or Plasma 2024-01-11 14:43:13 8.49 mg/dL F 0.5-1.1 WEIGHT - POST DAY 1 2023-12-28 22:14:06 72.7 kg F VM (KT/V MEAN VOL) 2023-12-28 22:14:06 33.9 F Residual kt/v 2023-12-28 22:14:06 F Total Kt/V 2023-12-28 22:14:06 1.53 F URR% 2023-12-28 22:14:06 74 % F stdKt/V (DIAL) 2023-12-28 22:14:06 N/A F Std Renal KT/V 2023-12-28 22:14:06 N/A F LENGTH OF DIALYSIS 2023-12-28 22:14:06 194 min F PATIENT AGE 2023-12-28 22:14:06 68 Years F AMPUTATE FACTOR 2023-12-28 22:14:06 0 F stdKT/V Total 2023-12-28 22:14:06 N/A F BLOOD FLOW-QWB 2023-12-28 22:14:06 299 F Dialyzer JANNETH 2023-12-28 22:14:06 1264 Calc F BSA YANET 2023-12-28 22:14:06 1.75 sq m F DIALYZER FLOW-QD 2023-12-28 22:14:06 500 mL/min F HEIGHT IN INCHES 2023-12-28 22:14:06 63 Inches F WEIGHT - PRE DAY 1 2023-12-28 22:14:06 74.1 kg F WEIGHT (KG) 2023-12-28 22:14:06 73 kg F KT/V PRESCRIBED 2023-12-28 22:14:06 1.62 F VT (KT/V TX VOL) 2023-12-28 22:14:06 29.5 L F PRESCRIBED DAYS/WEEK 2023-12-28 22:14:06 3 Day/Wk F nPCR 2023-12-28 22:14:06 1.11 G/KG/D F eKt/V 2023-12-28 22:14:06 1.28 F TBW (Page) 2023-12-28 22:14:06 32.8 Liters F TOTAL HOURS/WEEK DIALYSIS 2023-12-28 22:14:06 9 hrs F spKt/V 2023-12-28 22:14:06 1.53 F CURRENT KRU 2023-12-28 22:14:06 F nPCR 2023-12-28 22:14:06 1.11 G/KG/D F PRESCRIBED DAYS/WEEK 2023-12-28 22:14:06 3 Day/Wk F AMPUTATE FACTOR 2023-12-28 22:14:06 0 F stdKT/V Total 2023-12-28 22:14:06 N/A F PATIENT AGE 2023-12-28 22:14:06 68 Years F LENGTH OF DIALYSIS 2023-12-28 22:14:06 194 min F CURRENT KRU 2023-12-28 22:14:06 F Residual kt/v 2023-12-28 22:14:06 F stdKt/V (DIAL) 2023-12-28 22:14:06 N/A F BSA YANET 2023-12-28 22:14:06 1.75 sq m F spKt/V 2023-12-28 22:14:06 1.53 F Std Renal KT/V 2023-12-28 22:14:06 N/A F DIALYZER FLOW-QD 2023-12-28 22:14:06 500 mL/min F URR% 2023-12-28 22:14:06 74 % F WEIGHT - PRE DAY 1 2023-12-28 22:14:06 74.1 kg F WEIGHT - POST DAY 1 2023-12-28 22:14:06 72.7 kg F TBW (Page) 2023-12-28 22:14:06 32.8 Liters F VT (KT/V TX VOL) 2023-12-28 22:14:06 29.5 L F eKt/V 2023-12-28 22:14:06 1.28 F VM (KT/V MEAN VOL) 2023-12-28 22:14:06 33.9 F TOTAL HOURS/WEEK DIALYSIS 2023-12-28 22:14:06 9 hrs F HEIGHT IN INCHES 2023-12-28 22:14:06 63 Inches F Dialyzer JANNETH 2023-12-28 22:14:06 1264 Calc F Total Kt/V 2023-12-28 22:14:06 1.53 F KT/V PRESCRIBED 2023-12-28 22:14:06 1.62 F WEIGHT (KG) 2023-12-28 22:14:06 73 kg F BLOOD FLOW-QWB 2023-12-28 22:14:06 299 F Urea nitrogen [Mass/volume] in Serum or Plasma 2023-12-28 22:01:20 57 mg/dL F 9.0-23.0 Urea nitrogen [Mass/volume] in Serum or Plasma 2023-12-28 22:01:20 57 mg/dL F 9.0-23.0 Urea nitrogen [Mass/volume] in Serum or Plasma --post dialysis 2023-12-28 16:16:23 15 mg/dL F 9.0-23.0 Urea nitrogen [Mass/volume] in Serum or Plasma --post dialysis 2023-12-28 16:16:23 15 mg/dL F 9.0-23.0 Creatinine [Mass/volume] in Serum or Plasma 2023-12-14 13:02:19 9.9 mg/dL F 0.5-1.1 Creatinine [Mass/volume] in Serum or Plasma 2023-12-14 13:02:19 9.9 mg/dL F 0.5-1.1 CURRENT KRU 2023-12-09 21:30:50 F PRESCRIBED DAYS/WEEK 2023-12-09 21:30:50 3 Day/Wk F TBW (Page) 2023-12-09 21:30:50 33.17 Liters F URR% 2023-12-09 21:30:50 71 % F eKt/V 2023-12-09 21:30:50 1.18 F Residual kt/v 2023-12-09 21:30:50 F Dialyzer JANNETH 2023-12-09 21:30:50 1264 Calc F AMPUTATE FACTOR 2023-12-09 21:30:50 0 F VM (KT/V MEAN VOL) 2023-12-09 21:30:50 35.3 F WEIGHT (KG) 2023-12-09 21:30:50 72.5 kg F DIALYZER FLOW-QD 2023-12-09 21:30:50 500 mL/min F HEIGHT IN INCHES 2023-12-09 21:30:50 63 Inches F Std Renal KT/V 2023-12-09 21:30:50 N/A F PATIENT AGE 2023-12-09 21:30:50 68 Years F BSA YANET 2023-12-09 21:30:50 1.75 sq m F VT (KT/V TX VOL) 2023-12-09 21:30:50 32.7 L F WEIGHT - POST DAY 1 2023-12-09 21:30:50 74.2 kg F TOTAL HOURS/WEEK DIALYSIS 2023-12-09 21:30:50 9 hrs F nPCR 2023-12-09 21:30:50 0.76 G/KG/D F WEIGHT - PRE DAY 1 2023-12-09 21:30:50 74.9 kg F LENGTH OF DIALYSIS 2023-12-09 21:30:50 197 min F stdKt/V (DIAL) 2023-12-09 21:30:50 N/A F BLOOD FLOW-QWB 2023-12-09 21:30:50 299 F stdKT/V Total 2023-12-09 21:30:50 N/A F Total Kt/V 2023-12-09 21:30:50 1.4 F PRESCRIBED DAYS/WEEK 2023-12-09 21:30:50 3 Day/Wk F AMPUTATE FACTOR 2023-12-09 21:30:50 0 F VM (KT/V MEAN VOL) 2023-12-09 21:30:50 35.3 F KT/V PRESCRIBED 2023-12-09 21:30:50 1.65 F CURRENT KRU 2023-12-09 21:30:50 F WEIGHT (KG) 2023-12-09 21:30:50 72.5 kg F eKt/V 2023-12-09 21:30:50 1.18 F URR% 2023-12-09 21:30:50 71 % F WEIGHT - POST DAY 1 2023-12-09 21:30:50 74.2 kg F Dialyzer JANNETH 2023-12-09 21:30:50 1264 Calc F BLOOD FLOW-QWB 2023-12-09 21:30:50 299 F stdKT/V Total 2023-12-09 21:30:50 N/A F TOTAL HOURS/WEEK DIALYSIS 2023-12-09 21:30:50 9 hrs F LENGTH OF DIALYSIS 2023-12-09 21:30:50 197 min F spKt/V 2023-12-09 21:30:50 1.4 F Total Kt/V 2023-12-09 21:30:50 1.4 F Std Renal KT/V 2023-12-09 21:30:50 N/A F BSA YANET 2023-12-09 21:30:50 1.75 sq m F nPCR 2023-12-09 21:30:50 0.76 G/KG/D F WEIGHT - PRE DAY 1 2023-12-09 21:30:50 74.9 kg F TBW (Page) 2023-12-09 21:30:50 33.17 Liters F spKt/V 2023-12-09 21:30:50 1.4 F KT/V PRESCRIBED 2023-12-09 21:30:50 1.65 F HEIGHT IN INCHES 2023-12-09 21:30:50 63 Inches F stdKt/V (DIAL) 2023-12-09 21:30:50 N/A F VT (KT/V TX VOL) 2023-12-09 21:30:50 32.7 L F PATIENT AGE 2023-12-09 21:30:50 68 Years F DIALYZER FLOW-QD 2023-12-09 21:30:50 500 mL/min F Residual kt/v 2023-12-09 21:30:50 F Urea nitrogen [Mass/volume] in Serum or Plasma --post dialysis 2023-12-09 15:21:15 10 mg/dL F 9.0-23.0 Urea nitrogen [Mass/volume] in Serum or Plasma --post dialysis 2023-12-09 15:21:15 10 mg/dL F 9.0-23.0 Urea nitrogen [Mass/volume] in Serum or Plasma 2023-12-09 14:50:20 35 mg/dL F 9.0-23.0 Urea nitrogen [Mass/volume] in Serum or Plasma 2023-12-09 14:50:20 35 mg/dL F 9.0-23.0 KT/V PRESCRIBED 2023-12-02 16:41:15 1.65 F WEIGHT - POST DAY 1 2023-12-02 16:41:15 73.1 kg F TOTAL HOURS/WEEK DIALYSIS 2023-12-02 16:41:15 9 hrs F CURRENT KRU 2023-12-02 16:41:15 F eKt/V 2023-12-02 16:41:15 0.92 F WEIGHT (KG) 2023-12-02 16:41:15 72.5 kg F BSA YANET 2023-12-02 16:41:15 1.75 sq m F LENGTH OF DIALYSIS 2023-12-02 16:41:15 197 min F PATIENT AGE 2023-12-02 16:41:15 68 Years F Std Renal KT/V 2023-12-02 16:41:15 N/A F HEIGHT IN INCHES 2023-12-02 16:41:15 63 Inches F spKt/V 2023-12-02 16:41:15 1.07 F stdKt/V (DIAL) 2023-12-02 16:41:15 N/A F stdKT/V Total 2023-12-02 16:41:15 N/A F BLOOD FLOW-QWB 2023-12-02 16:41:15 290 F nPCR 2023-12-02 16:41:15 0.68 G/KG/D F Total Kt/V 2023-12-02 16:41:15 1.07 F WEIGHT - PRE DAY 1 2023-12-02 16:41:15 75.3 kg F Dialyzer JANNETH 2023-12-02 16:41:15 1264 Calc F URR% 2023-12-02 16:41:15 60 % F PRESCRIBED DAYS/WEEK 2023-12-02 16:41:15 3 Day/Wk F AMPUTATE FACTOR 2023-12-02 16:41:15 0 F VT (KT/V TX VOL) 2023-12-02 16:41:15 42 L F TBW (Page) 2023-12-02 16:41:15 32.9 Liters F DIALYZER FLOW-QD 2023-12-02 16:41:15 500 mL/min F Residual kt/v 2023-12-02 16:41:15 F VM (KT/V MEAN VOL) 2023-12-02 16:41:15 36.2 F URR% 2023-12-02 16:41:15 60 % F DIALYZER FLOW-QD 2023-12-02 16:41:15 500 mL/min F LENGTH OF DIALYSIS 2023-12-02 16:41:15 197 min F Dialyzer JANNETH 2023-12-02 16:41:15 1264 Calc F PATIENT AGE 2023-12-02 16:41:15 68 Years F WEIGHT - POST DAY 1 2023-12-02 16:41:15 73.1 kg F WEIGHT - PRE DAY 1 2023-12-02 16:41:15 75.3 kg F BSA YANET 2023-12-02 16:41:15 1.75 sq m F HEIGHT IN INCHES 2023-12-02 16:41:15 63 Inches F PRESCRIBED DAYS/WEEK 2023-12-02 16:41:15 3 Day/Wk F VT (KT/V TX VOL) 2023-12-02 16:41:15 42 L F VM (KT/V MEAN VOL) 2023-12-02 16:41:15 36.2 F WEIGHT (KG) 2023-12-02 16:41:15 72.5 kg F Residual kt/v 2023-12-02 16:41:15 F KT/V PRESCRIBED 2023-12-02 16:41:15 1.65 F nPCR 2023-12-02 16:41:15 0.68 G/KG/D F Total Kt/V 2023-12-02 16:41:15 1.07 F AMPUTATE FACTOR 2023-12-02 16:41:15 0 F TBW (Page) 2023-12-02 16:41:15 32.9 Liters F spKt/V 2023-12-02 16:41:15 1.07 F eKt/V 2023-12-02 16:41:15 0.92 F stdKt/V (DIAL) 2023-12-02 16:41:15 N/A F stdKT/V Total 2023-12-02 16:41:15 N/A F Std Renal KT/V 2023-12-02 16:41:15 N/A F TOTAL HOURS/WEEK DIALYSIS 2023-12-02 16:41:15 9 hrs F BLOOD FLOW-QWB 2023-12-02 16:41:15 290 F CURRENT KRU 2023-12-02 16:41:15 F Urea nitrogen [Mass/volume] in Serum or Plasma --post dialysis 2023-12-02 16:39:20 14 mg/dL F 9.0-23.0 Urea nitrogen [Mass/volume] in Serum or Plasma --post dialysis 2023-12-02 16:39:20 14 mg/dL F 9.0-23.0 Urea nitrogen [Mass/volume] in Serum or Plasma 2023-12-02 16:18:22 35 mg/dL F 9.0-23.0 Urea nitrogen [Mass/volume] in Serum or Plasma 2023-12-02 16:18:22 35 mg/dL F 9.0-23.0 Creatinine [Mass/volume] in Serum or Plasma 2023-11-09 14:12:14 8.29 mg/dL F 0.5-1.1 Creatinine [Mass/volume] in Serum or Plasma 2023-11-09 14:12:14 8.29 mg/dL F 0.5-1.1 URR% 2023-11-08 18:49:32 72 % F DIALYZER FLOW-QD 2023-11-08 18:49:32 500 mL/min F Dialyzer JANNETH 2023-11-08 18:49:32 1264 Calc F LENGTH OF DIALYSIS 2023-11-08 18:49:32 197 min F BSA YANET 2023-11-08 18:49:32 1.82 sq m F PATIENT AGE 2023-11-08 18:49:32 68 Years F WEIGHT - PRE DAY 1 2023-11-08 18:49:32 72.5 kg F WEIGHT - POST DAY 1 2023-11-08 18:49:32 72.2 kg F HEIGHT IN INCHES 2023-11-08 18:49:32 63 Inches F PRESCRIBED DAYS/WEEK 2023-11-08 18:49:32 3 Day/Wk F VM (KT/V MEAN VOL) 2023-11-08 18:49:32 34.2 F VT (KT/V TX VOL) 2023-11-08 18:49:32 34.5 L F WEIGHT (KG) 2023-11-08 18:49:32 80 kg F KT/V PRESCRIBED 2023-11-08 18:49:32 1.57 F Residual kt/v 2023-11-08 18:49:32 F Total Kt/V 2023-11-08 18:49:32 1.33 F nPCR 2023-11-08 18:49:32 0.33 G/KG/D F TBW (Page) 2023-11-08 18:49:32 32.68 Liters F AMPUTATE FACTOR 2023-11-08 18:49:32 0 F spKt/V 2023-11-08 18:49:32 1.33 F eKt/V 2023-11-08 18:49:32 1.12 F stdKt/V (DIAL) 2023-11-08 18:49:32 N/A F stdKT/V Total 2023-11-08 18:49:32 N/A F Std Renal KT/V 2023-11-08 18:49:32 N/A F BLOOD FLOW-QWB 2023-11-08 18:49:32 299 F TOTAL HOURS/WEEK DIALYSIS 2023-11-08 18:49:32 3 hrs F CURRENT KRU 2023-11-08 18:49:32 F URR% 2023-11-08 18:49:32 72 % F VM (KT/V MEAN VOL) 2023-11-08 18:49:32 34.2 F Std Renal KT/V 2023-11-08 18:49:32 N/A F AMPUTATE FACTOR 2023-11-08 18:49:32 0 F KT/V PRESCRIBED 2023-11-08 18:49:32 1.57 F stdKt/V (DIAL) 2023-11-08 18:49:32 N/A F Total Kt/V 2023-11-08 18:49:32 1.33 F PRESCRIBED DAYS/WEEK 2023-11-08 18:49:32 3 Day/Wk F WEIGHT - POST DAY 1 2023-11-08 18:49:32 72.2 kg F VT (KT/V TX VOL) 2023-11-08 18:49:32 34.5 L F CURRENT KRU 2023-11-08 18:49:32 F DIALYZER FLOW-QD 2023-11-08 18:49:32 500 mL/min F WEIGHT - PRE DAY 1 2023-11-08 18:49:32 72.5 kg F eKt/V 2023-11-08 18:49:32 1.12 F BSA YANET 2023-11-08 18:49:32 1.82 sq m F WEIGHT (KG) 2023-11-08 18:49:32 80 kg F stdKT/V Total 2023-11-08 18:49:32 N/A F TOTAL HOURS/WEEK DIALYSIS 2023-11-08 18:49:32 3 hrs F Residual kt/v 2023-11-08 18:49:32 F TBW (Page) 2023-11-08 18:49:32 32.68 Liters F spKt/V 2023-11-08 18:49:32 1.33 F PATIENT AGE 2023-11-08 18:49:32 68 Years F nPCR 2023-11-08 18:49:32 0.33 G/KG/D F Dialyzer JANNETH 2023-11-08 18:49:32 1264 Calc F LENGTH OF DIALYSIS 2023-11-08 18:49:32 197 min F HEIGHT IN INCHES 2023-11-08 18:49:32 63 Inches F BLOOD FLOW-QWB 2023-11-08 18:49:32 299 F Urea nitrogen [Mass/volume] in Serum or Plasma --post dialysis 2023-11-07 20:36:16 10 mg/dL F 9.0-23.0 Urea nitrogen [Mass/volume] in Serum or Plasma --post dialysis 2023-11-07 20:36:16 10 mg/dL F 9.0-23.0 Urea nitrogen [Mass/volume] in Serum or Plasma 2023-11-07 17:57:17 36 mg/dL F 9.0-23.0 Urea nitrogen [Mass/volume] in Serum or Plasma 2023-11-07 17:57:17 36 mg/dL F 9.0-23.0 Creatinine [Mass/volume] in Serum or Plasma 2023-01-05 16:16:31 11.56 mg/dL F 0.5-1.1 Creatinine [Mass/volume] in Serum or Plasma 2023-01-05 16:16:31 11.56 mg/dL F 0.5-1.1 Creatinine [Mass/volume] in Serum or Plasma 2022-06-09 19:07:21 9.24 mg/dL F 0.5-1.1 Creatinine [Mass/volume] in Serum or Plasma 2022-05-20 16:08:10 8.17 mg/dL F 0.5-1.1 Creatinine [Mass/volume] in Serum or Plasma 2022-04-14 15:31:57 10.01 mg/dL F 0.5-1.1 Creatinine [Mass/volume] in Serum or Plasma 2022-03-10 16:49:48 9.7 mg/dL F 0.5-1.1 Creatinine [Mass/volume] in Serum or Plasma 2022-02-10 19:06:42 10.61 mg/dL F 0.5-1.1 Anemia Description Draw Date Result/Unit Status Ref Range Result Comments IRON SATURATION 2024-03-15 07:08:44 19 % F 16.0-46.0 TIBC 2024-03-15 07:08:44 221 ug/dL F 250.0-425.0 Iron [Mass/volume] in Serum or Plasma 2024-03-15 06:06:00 41 ug/dL F 50.0-170.0 Iron binding capacity.unsaturated [Mass/volume] in Serum or Plasma 2024-03-15 06:06:00 180 ug/dL F 80.0-375.0 Ferritin [Mass/volume] in Serum or Plasma 2024-03-15 05:20:38 800 ng/mL F 10.0-291.0 HCT CALC HGBX3 2024-03-14 16:18:53 26.1 % F 37.0-47.0 Erythrocytes [#/volume] in Blood by Automated count 2024-03-14 16:18:20 3.09 x 10^6 cells/uL F 3.85-5.2 MCH [Entitic mass] by Automated count 2024-03-14 16:18:19 28.3 pg F 25.9-34.2 MCHC [Mass/volume] by Automated count 2024-03-14 16:18:19 30.5 g/dL F 29.6-35.3 Erythrocyte distribution width [Ratio] by Automated count 2024-03-14 16:18:19 16.6 % F 11.0-15.0 Hematocrit [Volume Fraction] of Blood by Automated count 2024-03-14 16:18:19 28.6 % F 37.0-47.0 Hemoglobin [Mass/volume] in Blood 2024-03-14 16:18:19 8.7 g/dL F 12.0-16.0 MCV [Entitic volume] by Automated count 2024-03-14 16:18:19 92.6 fL F 80.0-100.0 Platelets [#/volume] in Blood by Automated count 2024-03-14 16:18:19 304 x 10^3 cells/uL F 140.0-450.0 HCT CALC HGBX3 2024-02-29 18:52:53 26.4 % F 37.0-47.0 HCT CALC HGBX3 2024-02-29 18:52:53 26.4 % F 37.0-47.0 HCT CALC HGBX3 2024-02-29 18:52:53 26.4 % F 37.0-47.0 HCT CALC HGBX3 2024-02-29 18:52:53 26.4 % F 37.0-47.0 Hemoglobin [Mass/volume] in Blood 2024-02-29 18:51:12 8.8 g/dL F 12.0-16.0 Hemoglobin [Mass/volume] in Blood 2024-02-29 18:51:12 8.8 g/dL F 12.0-16.0 Hemoglobin [Mass/volume] in Blood 2024-02-29 18:51:12 8.8 g/dL F 12.0-16.0 Hemoglobin [Mass/volume] in Blood 2024-02-29 18:51:12 8.8 g/dL F 12.0-16.0 Ferritin [Mass/volume] in Serum or Plasma 2024-02-09 08:26:58 1215 ng/mL F 10.0-291.0 Ferritin [Mass/volume] in Serum or Plasma 2024-02-09 08:26:58 1215 ng/mL F 10.0-291.0 Ferritin [Mass/volume] in Serum or Plasma 2024-02-09 08:26:58 1215 ng/mL F 10.0-291.0 TIBC 2024-02-08 20:24:14 188 ug/dL F 250.0-425.0 IRON SATURATION 2024-02-08 20:24:14 20 % F 16.0-46.0 IRON SATURATION 2024-02-08 20:24:14 20 % F 16.0-46.0 TIBC 2024-02-08 20:24:14 188 ug/dL F 250.0-425.0 IRON SATURATION 2024-02-08 20:24:14 20 % F 16.0-46.0 TIBC 2024-02-08 20:24:14 188 ug/dL F 250.0-425.0 Iron [Mass/volume] in Serum or Plasma 2024-02-08 20:22:21 38 ug/dL F 50.0-170.0 Iron binding capacity.unsaturated [Mass/volume] in Serum or Plasma 2024-02-08 20:22:21 150 ug/dL F 80.0-375.0 Iron [Mass/volume] in Serum or Plasma 2024-02-08 20:22:21 38 ug/dL F 50.0-170.0 Iron binding capacity.unsaturated [Mass/volume] in Serum or Plasma 2024-02-08 20:22:21 150 ug/dL F 80.0-375.0 Iron [Mass/volume] in Serum or Plasma 2024-02-08 20:22:21 38 ug/dL F 50.0-170.0 Iron binding capacity.unsaturated [Mass/volume] in Serum or Plasma 2024-02-08 20:22:21 150 ug/dL F 80.0-375.0 HCT CALC HGBX3 2024-02-08 15:50:54 27.3 % F 37.0-47.0 HCT CALC HGBX3 2024-02-08 15:50:54 27.3 % F 37.0-47.0 HCT CALC HGBX3 2024-02-08 15:50:54 27.3 % F 37.0-47.0 Platelets [#/volume] in Blood by Automated count 2024-02-08 15:49:22 254 x 10^3 cells/uL F 140.0-450.0 Erythrocytes [#/volume] in Blood by Automated count 2024-02-08 15:49:22 3.2 x 10'6 cells/uL F 3.85-5.2 MCHC [Mass/volume] by Automated count 2024-02-08 15:49:22 30.6 g/dL F 29.6-35.3 MCV [Entitic volume] by Automated count 2024-02-08 15:49:22 92.4 fL F 80.0-100.0 Hemoglobin [Mass/volume] in Blood 2024-02-08 15:49:22 9.1 g/dL F 12.0-16.0 Erythrocyte distribution width [Ratio] by Automated count 2024-02-08 15:49:22 16.9 % F 11.0-15.0 Hematocrit [Volume Fraction] of Blood by Automated count 2024-02-08 15:49:22 29.6 % F 37.0-47.0 MCH [Entitic mass] by Automated count 2024-02-08 15:49:22 28.3 pg F 25.9-34.2 Erythrocyte distribution width [Ratio] by Automated count 2024-02-08 15:49:22 16.9 % F 11.0-15.0 Erythrocytes [#/volume] in Blood by Automated count 2024-02-08 15:49:22 3.2 x 10'6 cells/uL F 3.85-5.2 Hematocrit [Volume Fraction] of Blood by Automated count 2024-02-08 15:49:22 29.6 % F 37.0-47.0 Hemoglobin [Mass/volume] in Blood 2024-02-08 15:49:22 9.1 g/dL F 12.0-16.0 MCV [Entitic volume] by Automated count 2024-02-08 15:49:22 92.4 fL F 80.0-100.0 MCH [Entitic mass] by Automated count 2024-02-08 15:49:22 28.3 pg F 25.9-34.2 Platelets [#/volume] in Blood by Automated count 2024-02-08 15:49:22 254 x 10^3 cells/uL F 140.0-450.0 MCHC [Mass/volume] by Automated count 2024-02-08 15:49:22 30.6 g/dL F 29.6-35.3 Hemoglobin [Mass/volume] in Blood 2024-02-08 15:49:22 9.1 g/dL F 12.0-16.0 MCHC [Mass/volume] by Automated count 2024-02-08 15:49:22 30.6 g/dL F 29.6-35.3 MCV [Entitic volume] by Automated count 2024-02-08 15:49:22 92.4 fL F 80.0-100.0 Platelets [#/volume] in Blood by Automated count 2024-02-08 15:49:22 254 x 10^3 cells/uL F 140.0-450.0 Erythrocytes [#/volume] in Blood by Automated count 2024-02-08 15:49:22 3.2 x 10'6 cells/uL F 3.85-5.2 Erythrocyte distribution width [Ratio] by Automated count 2024-02-08 15:49:22 16.9 % F 11.0-15.0 MCH [Entitic mass] by Automated count 2024-02-08 15:49:22 28.3 pg F 25.9-34.2 Hematocrit [Volume Fraction] of Blood by Automated count 2024-02-08 15:49:22 29.6 % F 37.0-47.0 HCT CALC HGBX3 2024-01-26 09:04:58 28.2 % F 37.0-47.0 HCT CALC HGBX3 2024-01-26 09:04:58 28.2 % F 37.0-47.0 HCT CALC HGBX3 2024-01-26 09:04:58 28.2 % F 37.0-47.0 HCT CALC HGBX3 2024-01-26 09:04:58 28.2 % F 37.0-47.0 Hemoglobin [Mass/volume] in Blood 2024-01-26 07:53:21 9.4 g/dL F 12.0-16.0 Hemoglobin [Mass/volume] in Blood 2024-01-26 07:53:21 9.4 g/dL F 12.0-16.0 Hemoglobin [Mass/volume] in Blood 2024-01-26 07:53:21 9.4 g/dL F 12.0-16.0 Hemoglobin [Mass/volume] in Blood 2024-01-26 07:53:21 9.4 g/dL F 12.0-16.0 Ferritin [Mass/volume] in Serum or Plasma 2024-01-12 08:17:06 1159 ng/mL F 10.0-291.0 Ferritin [Mass/volume] in Serum or Plasma 2024-01-12 08:17:06 1159 ng/mL F 10.0-291.0 Ferritin [Mass/volume] in Serum or Plasma 2024-01-12 08:17:06 1159 ng/mL F 10.0-291.0 IRON SATURATION 2024-01-12 07:05:25 21 % F 16.0-46.0 TIBC 2024-01-12 07:05:25 216 ug/dL F 250.0-425.0 IRON SATURATION 2024-01-12 07:05:25 21 % F 16.0-46.0 TIBC 2024-01-12 07:05:25 216 ug/dL F 250.0-425.0 IRON SATURATION 2024-01-12 07:05:25 21 % F 16.0-46.0 TIBC 2024-01-12 07:05:25 216 ug/dL F 250.0-425.0 Iron [Mass/volume] in Serum or Plasma 2024-01-12 07:00:42 46 ug/dL F 50.0-170.0 Iron binding capacity.unsaturated [Mass/volume] in Serum or Plasma 2024-01-12 07:00:42 170 ug/dL F 80.0-375.0 Iron [Mass/volume] in Serum or Plasma 2024-01-12 07:00:42 46 ug/dL F 50.0-170.0 Iron binding capacity.unsaturated [Mass/volume] in Serum or Plasma 2024-01-12 07:00:42 170 ug/dL F 80.0-375.0 Iron [Mass/volume] in Serum or Plasma 2024-01-12 07:00:42 46 ug/dL F 50.0-170.0 Iron binding capacity.unsaturated [Mass/volume] in Serum or Plasma 2024-01-12 07:00:42 170 ug/dL F 80.0-375.0 HCT CALC HGBX3 2024-01-12 01:51:14 30.3 % F 37.0-47.0 HCT CALC HGBX3 2024-01-12 01:51:14 30.3 % F 37.0-47.0 HCT CALC HGBX3 2024-01-12 01:51:14 30.3 % F 37.0-47.0 MCH [Entitic mass] by Automated count 2024-01-12 01:50:19 28.1 pg F 25.9-34.2 MCHC [Mass/volume] by Automated count 2024-01-12 01:50:19 29 g/dL F 29.6-35.3 Erythrocytes [#/volume] in Blood by Automated count 2024-01-12 01:50:19 3.6 x 10'6 cells/uL F 3.85-5.2 Erythrocyte distribution width [Ratio] by Automated count 2024-01-12 01:50:19 15.6 % F 11.0-15.0 Hemoglobin [Mass/volume] in Blood 2024-01-12 01:50:19 10.1 g/dL F 12.0-16.0 Hematocrit [Volume Fraction] of Blood by Automated count 2024-01-12 01:50:19 34.9 % F 37.0-47.0 MCV [Entitic volume] by Automated count 2024-01-12 01:50:19 97 fL F 80.0-100.0 Platelets [#/volume] in Blood by Automated count 2024-01-12 01:50:19 300 x 10^3 cells/uL F 140.0-450.0 Erythrocytes [#/volume] in Blood by Automated count 2024-01-12 01:50:19 3.6 x 10'6 cells/uL F 3.85-5.2 Erythrocyte distribution width [Ratio] by Automated count 2024-01-12 01:50:19 15.6 % F 11.0-15.0 Hemoglobin [Mass/volume] in Blood 2024-01-12 01:50:19 10.1 g/dL F 12.0-16.0 MCH [Entitic mass] by Automated count 2024-01-12 01:50:19 28.1 pg F 25.9-34.2 MCHC [Mass/volume] by Automated count 2024-01-12 01:50:19 29 g/dL F 29.6-35.3 Hematocrit [Volume Fraction] of Blood by Automated count 2024-01-12 01:50:19 34.9 % F 37.0-47.0 MCV [Entitic volume] by Automated count 2024-01-12 01:50:19 97 fL F 80.0-100.0 Platelets [#/volume] in Blood by Automated count 2024-01-12 01:50:19 300 x 10^3 cells/uL F 140.0-450.0 Erythrocyte distribution width [Ratio] by Automated count 2024-01-12 01:50:19 15.6 % F 11.0-15.0 Hematocrit [Volume Fraction] of Blood by Automated count 2024-01-12 01:50:19 34.9 % F 37.0-47.0 Erythrocytes [#/volume] in Blood by Automated count 2024-01-12 01:50:19 3.6 x 10'6 cells/uL F 3.85-5.2 Hemoglobin [Mass/volume] in Blood 2024-01-12 01:50:19 10.1 g/dL F 12.0-16.0 Platelets [#/volume] in Blood by Automated count 2024-01-12 01:50:19 300 x 10^3 cells/uL F 140.0-450.0 MCV [Entitic volume] by Automated count 2024-01-12 01:50:19 97 fL F 80.0-100.0 MCH [Entitic mass] by Automated count 2024-01-12 01:50:19 28.1 pg F 25.9-34.2 MCHC [Mass/volume] by Automated count 2024-01-12 01:50:19 29 g/dL F 29.6-35.3 HCT CALC HGBX3 2023-12-28 17:24:03 28.8 % F 37.0-47.0 HCT CALC HGBX3 2023-12-28 17:24:03 28.8 % F 37.0-47.0 Hemoglobin [Mass/volume] in Blood 2023-12-28 17:23:14 9.6 g/dL F 12.0-16.0 Hemoglobin [Mass/volume] in Blood 2023-12-28 17:23:14 9.6 g/dL F 12.0-16.0 HCT CALC HGBX3 2023-12-14 23:57:41 29.1 % F 37.0-47.0 HCT CALC HGBX3 2023-12-14 23:57:41 29.1 % F 37.0-47.0 Erythrocytes [#/volume] in Blood by Automated count 2023-12-14 23:57:18 3.35 x 10'6 cells/uL F 3.85-5.2 Erythrocyte distribution width [Ratio] by Automated count 2023-12-14 23:57:18 15.3 % F 11.0-15.0 Hemoglobin [Mass/volume] in Blood 2023-12-14 23:57:18 9.7 g/dL F 12.0-16.0 MCHC [Mass/volume] by Automated count 2023-12-14 23:57:18 30.2 g/dL F 29.6-35.3 Hematocrit [Volume Fraction] of Blood by Automated count 2023-12-14 23:57:18 32 % F 37.0-47.0 MCH [Entitic mass] by Automated count 2023-12-14 23:57:18 28.8 pg F 25.9-34.2 MCV [Entitic volume] by Automated count 2023-12-14 23:57:18 95.5 fL F 80.0-100.0 Platelets [#/volume] in Blood by Automated count 2023-12-14 23:57:18 327 x 10^3 cells/uL F 140.0-450.0 Erythrocytes [#/volume] in Blood by Automated count 2023-12-14 23:57:18 3.35 x 10'6 cells/uL F 3.85-5.2 Hemoglobin [Mass/volume] in Blood 2023-12-14 23:57:18 9.7 g/dL F 12.0-16.0 Erythrocyte distribution width [Ratio] by Automated count 2023-12-14 23:57:18 15.3 % F 11.0-15.0 MCHC [Mass/volume] by Automated count 2023-12-14 23:57:18 30.2 g/dL F 29.6-35.3 MCH [Entitic mass] by Automated count 2023-12-14 23:57:18 28.8 pg F 25.9-34.2 Hematocrit [Volume Fraction] of Blood by Automated count 2023-12-14 23:57:18 32 % F 37.0-47.0 MCV [Entitic volume] by Automated count 2023-12-14 23:57:18 95.5 fL F 80.0-100.0 Platelets [#/volume] in Blood by Automated count 2023-12-14 23:57:18 327 x 10^3 cells/uL F 140.0-450.0 HCT CALC HGBX3 2023-12-02 17:03:38 29.1 % F 37.0-47.0 HCT CALC HGBX3 2023-12-02 17:03:38 29.1 % F 37.0-47.0 Hemoglobin [Mass/volume] in Blood 2023-12-02 17:03:19 9.7 g/dL F 12.0-16.0 Hemoglobin [Mass/volume] in Blood 2023-12-02 17:03:19 9.7 g/dL F 12.0-16.0 HCT CALC HGBX3 2023-11-09 15:08:48 31.5 % F 37.0-47.0 HCT CALC HGBX3 2023-11-09 15:08:48 31.5 % F 37.0-47.0 Erythrocyte distribution width [Ratio] by Automated count 2023-11-09 15:08:18 16 % F 11.0-15.0 MCH [Entitic mass] by Automated count 2023-11-09 15:08:18 29.8 pg F 25.9-34.2 Platelets [#/volume] in Blood by Automated count 2023-11-09 15:08:18 264 x 10'3 cells/uL F 140.0-450.0 MCHC [Mass/volume] by Automated count 2023-11-09 15:08:18 29.9 g/dL F 29.6-35.3 Erythrocyte distribution width [Ratio] by Automated count 2023-11-09 15:08:18 16 % F 11.0-15.0 Platelets [#/volume] in Blood by Automated count 2023-11-09 15:08:18 264 x 10'3 cells/uL F 140.0-450.0 MCH [Entitic mass] by Automated count 2023-11-09 15:08:18 29.8 pg F 25.9-34.2 MCHC [Mass/volume] by Automated count 2023-11-09 15:08:18 29.9 g/dL F 29.6-35.3 Erythrocytes [#/volume] in Blood by Automated count 2023-11-09 15:08:16 3.51 x 10'6 cells/uL F 3.85-5.2 Hematocrit [Volume Fraction] of Blood by Automated count 2023-11-09 15:08:16 35 % F 37.0-47.0 Hemoglobin [Mass/volume] in Blood 2023-11-09 15:08:16 10.5 g/dL F 12.0-16.0 MCV [Entitic volume] by Automated count 2023-11-09 15:08:16 99.6 fL F 80.0-100.0 Erythrocytes [#/volume] in Blood by Automated count 2023-11-09 15:08:16 3.51 x 10'6 cells/uL F 3.85-5.2 Hemoglobin [Mass/volume] in Blood 2023-11-09 15:08:16 10.5 g/dL F 12.0-16.0 Hematocrit [Volume Fraction] of Blood by Automated count 2023-11-09 15:08:16 35 % F 37.0-47.0 MCV [Entitic volume] by Automated count 2023-11-09 15:08:16 99.6 fL F 80.0-100.0 HCT CALC HGBX3 2023-08-31 20:52:26 28.8 % F 37.0-47.0 HCT CALC HGBX3 2023-08-31 20:52:26 28.8 % F 37.0-47.0 Hemoglobin [Mass/volume] in Blood 2023-08-31 20:51:47 9.6 g/dL F 12.0-16.0 Hemoglobin [Mass/volume] in Blood 2023-08-31 20:51:47 9.6 g/dL F 12.0-16.0 IRON SATURATION 2023-01-06 07:12:00 35 % F 16.0-46.0 TIBC 2023-01-06 07:12:00 227 ug/dL F 250.0-425.0 IRON SATURATION 2023-01-06 07:12:00 35 % F 16.0-46.0 TIBC 2023-01-06 07:12:00 227 ug/dL F 250.0-425.0 Iron binding capacity.unsaturated [Mass/volume] in Serum or Plasma 2023-01-06 07:09:11 148 ug/dL F 80.0-375.0 Iron [Mass/volume] in Serum or Plasma 2023-01-06 07:09:11 79 ug/dL F 50.0-170.0 Iron [Mass/volume] in Serum or Plasma 2023-01-06 07:09:11 79 ug/dL F 50.0-170.0 Iron binding capacity.unsaturated [Mass/volume] in Serum or Plasma 2023-01-06 07:09:11 148 ug/dL F 80.0-375.0 Ferritin [Mass/volume] in Serum or Plasma 2023-01-06 05:13:30 811 ng/mL F 10.0-291.0 Ferritin [Mass/volume] in Serum or Plasma 2023-01-06 05:13:30 811 ng/mL F 10.0-291.0 HCT CALC HGBX3 2023-01-05 16:43:50 28.8 % F 37.0-47.0 HCT CALC HGBX3 2023-01-05 16:43:50 28.8 % F 37.0-47.0 Erythrocytes [#/volume] in Blood by Automated count 2023-01-05 16:43:36 3.06 x 10'6 cells/uL F 3.85-5.2 Hemoglobin [Mass/volume] in Blood 2023-01-05 16:43:36 9.6 g/dL F 12.0-16.0 Hematocrit [Volume Fraction] of Blood by Automated count 2023-01-05 16:43:36 29.6 % F 37.0-47.0 MCV [Entitic volume] by Automated count 2023-01-05 16:43:36 96.7 fL F 80.0-100.0 Erythrocyte distribution width [Ratio] by Automated count 2023-01-05 16:43:36 17 % F 11.0-15.0 MCH [Entitic mass] by Automated count 2023-01-05 16:43:36 31.3 pg F 25.9-34.2 MCHC [Mass/volume] by Automated count 2023-01-05 16:43:36 32.4 g/dL F 29.6-35.3 Platelets [#/volume] in Blood by Automated count 2023-01-05 16:43:36 231 x 10^3 cells/uL F 140.0-450.0 Erythrocytes [#/volume] in Blood by Automated count 2023-01-05 16:43:36 3.06 x 10'6 cells/uL F 3.85-5.2 Hemoglobin [Mass/volume] in Blood 2023-01-05 16:43:36 9.6 g/dL F 12.0-16.0 Erythrocyte distribution width [Ratio] by Automated count 2023-01-05 16:43:36 17 % F 11.0-15.0 MCH [Entitic mass] by Automated count 2023-01-05 16:43:36 31.3 pg F 25.9-34.2 MCHC [Mass/volume] by Automated count 2023-01-05 16:43:36 32.4 g/dL F 29.6-35.3 Hematocrit [Volume Fraction] of Blood by Automated count 2023-01-05 16:43:36 29.6 % F 37.0-47.0 MCV [Entitic volume] by Automated count 2023-01-05 16:43:36 96.7 fL F 80.0-100.0 Platelets [#/volume] in Blood by Automated count 2023-01-05 16:43:36 231 x 10'3 cells/uL F 140.0-450.0 IRON SATURATION 2022-06-10 04:00:48 21 % F 16.0-46.0 TIBC 2022-06-10 04:00:48 241 ug/dL F 250.0-425.0 Iron [Mass/volume] in Serum or Plasma 2022-06-10 03:51:26 50 ug/dL F 50.0-170.0 Iron binding capacity.unsaturated [Mass/volume] in Serum or Plasma 2022-06-10 03:51:26 191 ug/dL F 80.0-375.0 Ferritin [Mass/volume] in Serum or Plasma 2022-06-09 20:01:16 721 ng/mL F 10.0-291.0 HCT CALC HGBX3 2022-06-09 15:33:13 30.3 % F 37.0-47.0 MCH [Entitic mass] by Automated count 2022-06-09 15:32:20 29.4 pg F 27.0-31.0 Erythrocyte distribution width [Ratio] by Automated count 2022-06-09 15:32:20 14.8 % F 11.0-15.0 MCHC [Mass/volume] by Automated count 2022-06-09 15:32:20 31.4 g/dL F 32.0-36.0 Hematocrit [Volume Fraction] of Blood by Automated count 2022-06-09 15:32:20 32 % F 37.0-47.0 MCV [Entitic volume] by Automated count 2022-06-09 15:32:20 93.4 fL F 80.0-100.0 Erythrocytes [#/volume] in Blood by Automated count 2022-06-09 15:32:20 3.43 x 10'6 cells/uL F 4.2-5.4 Hemoglobin [Mass/volume] in Blood 2022-06-09 15:32:20 10.1 g/dL F 12.0-16.0 Platelets [#/volume] in Blood by Automated count 2022-06-09 15:32:20 242 x 10^3 cells/uL F 150.0-400.0 IRON SATURATION 2022-05-20 23:28:32 24 % F 16.0-46.0 TIBC 2022-05-20 23:28:32 241 ug/dL F 250.0-425.0 Iron [Mass/volume] in Serum or Plasma 2022-05-20 23:26:27 57 ug/dL F 50.0-170.0 Iron binding capacity.unsaturated [Mass/volume] in Serum or Plasma 2022-05-20 23:26:27 184 ug/dL F 80.0-375.0 HCT CALC HGBX3 2022-05-20 17:10:56 27.9 % F 37.0-47.0 Erythrocytes [#/volume] in Blood by Automated count 2022-05-20 17:10:14 3.04 x 10'6 cells/uL F 4.2-5.4 Erythrocyte distribution width [Ratio] by Automated count 2022-05-20 17:10:14 14.5 % F 11.0-15.0 MCH [Entitic mass] by Automated count 2022-05-20 17:10:14 30.5 pg F 27.0-31.0 MCHC [Mass/volume] by Automated count 2022-05-20 17:10:14 31.6 g/dL F 32.0-36.0 Hematocrit [Volume Fraction] of Blood by Automated count 2022-05-20 17:10:14 29.3 % F 37.0-47.0 Hemoglobin [Mass/volume] in Blood 2022-05-20 17:10:14 9.3 g/dL F 12.0-16.0 MCV [Entitic volume] by Automated count 2022-05-20 17:10:14 96.5 fL F 80.0-100.0 Platelets [#/volume] in Blood by Automated count 2022-05-20 17:10:14 344 x 10^3 cells/uL F 150.0-400.0 Ferritin [Mass/volume] in Serum or Plasma 2022-05-20 16:16:14 853 ng/mL F 10.0-291.0 TIBC 2022-04-15 06:32:25 225 ug/dL F 250.0-425.0 IRON SATURATION 2022-04-15 06:32:25 39 % F 16.0-46.0 Iron [Mass/volume] in Serum or Plasma 2022-04-15 06:30:38 87 ug/dL F 50.0-170.0 Iron binding capacity.unsaturated [Mass/volume] in Serum or Plasma 2022-04-15 06:30:33 138 ug/dL F 80.0-375.0 Ferritin [Mass/volume] in Serum or Plasma 2022-04-14 16:09:16 1092 ng/mL F 10.0-291.0 HCT CALC HGBX3 2022-04-14 14:22:19 29.4 % F 37.0-47.0 Erythrocyte distribution width [Ratio] by Automated count 2022-04-14 14:21:21 14.5 % F 11.0-15.0 Erythrocytes [#/volume] in Blood by Automated count 2022-04-14 14:21:21 3.18 x 10'6 cells/uL F 4.2-5.4 Platelets [#/volume] in Blood by Automated count 2022-04-14 14:21:21 275 x 10^3 cells/uL F 150.0-400.0 Hemoglobin [Mass/volume] in Blood 2022-04-14 14:21:21 9.8 g/dL F 12.0-16.0 MCHC [Mass/volume] by Automated count 2022-04-14 14:21:21 32.9 g/dL F 32.0-36.0 Hematocrit [Volume Fraction] of Blood by Automated count 2022-04-14 14:21:21 29.6 % F 37.0-47.0 MCH [Entitic mass] by Automated count 2022-04-14 14:21:21 30.7 pg F 27.0-31.0 MCV [Entitic volume] by Automated count 2022-04-14 14:21:21 93.2 fL F 80.0-100.0 HCT CALC HGBX3 2022-03-10 18:24:30 28.8 % F 37.0-47.0 Erythrocyte distribution width [Ratio] by Automated count 2022-03-10 18:23:49 13.9 % F 11.0-15.0 Hemoglobin [Mass/volume] in Blood 2022-03-10 18:23:49 9.6 g/dL F 12.0-16.0 MCH [Entitic mass] by Automated count 2022-03-10 18:23:49 30 pg F 27.0-31.0 Hematocrit [Volume Fraction] of Blood by Automated count 2022-03-10 18:23:49 30 % F 37.0-47.0 Platelets [#/volume] in Blood by Automated count 2022-03-10 18:23:49 256 x 10^3 cells/uL F 150.0-400.0 Erythrocytes [#/volume] in Blood by Automated count 2022-03-10 18:23:49 3.21 x 10'6 cells/uL F 4.2-5.4 MCHC [Mass/volume] by Automated count 2022-03-10 18:23:49 32.2 g/dL F 32.0-36.0 MCV [Entitic volume] by Automated count 2022-03-10 18:23:49 93.2 fL F 80.0-100.0 HCT CALC HGBX3 2022-02-10 20:13:33 31.8 % F 37.0-47.0 Erythrocytes [#/volume] in Blood by Automated count 2022-02-10 20:12:49 3.53 x 10'6 cells/uL F 4.2-5.4 Erythrocyte distribution width [Ratio] by Automated count 2022-02-10 20:12:49 14.2 % F 11.0-15.0 Hemoglobin [Mass/volume] in Blood 2022-02-10 20:12:49 10.6 g/dL F 12.0-16.0 MCH [Entitic mass] by Automated count 2022-02-10 20:12:49 29.9 pg F 27.0-31.0 MCHC [Mass/volume] by Automated count 2022-02-10 20:12:49 30.9 g/dL F 32.0-36.0 Hematocrit [Volume Fraction] of Blood by Automated count 2022-02-10 20:12:49 34.2 % F 37.0-47.0 MCV [Entitic volume] by Automated count 2022-02-10 20:12:49 96.9 fL F 80.0-100.0 Platelets [#/volume] in Blood by Automated count 2022-02-10 20:12:49 257 x 10^3 cells/uL F 150.0-400.0 FluidBP Description Draw Date Result/Unit Status Ref Range Result Comments Sodium [Moles/volume] in Serum or Plasma 2024-03-15 06:06:00 140 mEq/L F 132.0-146.0 Sodium [Moles/volume] in Serum or Plasma 2024-02-08 20:22:21 136 mEq/L F 132.0-146.0 Sodium [Moles/volume] in Serum or Plasma 2024-02-08 20:22:21 136 mEq/L F 132.0-146.0 Sodium [Moles/volume] in Serum or Plasma 2024-02-08 20:22:21 136 mEq/L F 132.0-146.0 Sodium [Moles/volume] in Serum or Plasma 2024-01-12 07:00:36 140 mEq/L F 132.0-146.0 Sodium [Moles/volume] in Serum or Plasma 2024-01-12 07:00:36 140 mEq/L F 132.0-146.0 Sodium [Moles/volume] in Serum or Plasma 2024-01-12 07:00:36 140 mEq/L F 132.0-146.0 Sodium [Moles/volume] in Serum or Plasma 2023-12-14 21:51:38 138 mEq/L F 132.0-146.0 Sodium [Moles/volume] in Serum or Plasma 2023-12-14 21:51:38 138 mEq/L F 132.0-146.0 Sodium [Moles/volume] in Serum or Plasma 2023-11-09 17:22:14 141 mEq/L F 132.0-146.0 Sodium [Moles/volume] in Serum or Plasma 2023-11-09 17:22:14 141 mEq/L F 132.0-146.0 Sodium [Moles/volume] in Serum or Plasma 2023-01-05 16:16:31 141 mEq/L F 132.0-146.0 Sodium [Moles/volume] in Serum or Plasma 2023-01-05 16:16:31 141 mEq/L F 132.0-146.0 Sodium [Moles/volume] in Serum or Plasma 2022-06-09 19:07:21 140 mEq/L F 132.0-146.0 Sodium [Moles/volume] in Serum or Plasma 2022-05-20 16:08:10 138 mEq/L F 132.0-146.0 Sodium [Moles/volume] in Serum or Plasma 2022-04-14 15:31:57 140 mEq/L F 132.0-146.0 Sodium [Moles/volume] in Serum or Plasma 2022-03-10 16:49:48 139 mEq/L F 132.0-146.0 Sodium [Moles/volume] in Serum or Plasma 2022-02-10 19:06:40 140 mEq/L F 132.0-146.0 General Description Draw Date Result/Unit Status Ref Range Result Comments Chloride [Moles/volume] in Serum or Plasma 2024-03-15 06:06:00 101 mEq/L F 99.0-109.0 Aspartate aminotransferase [Enzymatic activity/volume] in Serum or Plasma 2024-03-14 18:40:25 21 U/L F 0.0-33.0 Alanine aminotransferase [Enzymatic activity/volume] in Serum or Plasma 2024-03-14 18:40:25 9 U/L F 10.0-49.0 Chloride [Moles/volume] in Serum or Plasma 2024-02-08 20:22:21 99 mEq/L F 99.0-109.0 Chloride [Moles/volume] in Serum or Plasma 2024-02-08 20:22:21 99 mEq/L F 99.0-109.0 Chloride [Moles/volume] in Serum or Plasma 2024-02-08 20:22:21 99 mEq/L F 99.0-109.0 Alanine aminotransferase [Enzymatic activity/volume] in Serum or Plasma 2024-02-08 14:37:18 9 U/L F 10.0-49.0 Aspartate aminotransferase [Enzymatic activity/volume] in Serum or Plasma 2024-02-08 14:37:18 20 U/L F 0.0-33.0 Alanine aminotransferase [Enzymatic activity/volume] in Serum or Plasma 2024-02-08 14:37:18 9 U/L F 10.0-49.0 Aspartate aminotransferase [Enzymatic activity/volume] in Serum or Plasma 2024-02-08 14:37:18 20 U/L F 0.0-33.0 Alanine aminotransferase [Enzymatic activity/volume] in Serum or Plasma 2024-02-08 14:37:18 9 U/L F 10.0-49.0 Aspartate aminotransferase [Enzymatic activity/volume] in Serum or Plasma 2024-02-08 14:37:18 20 U/L F 0.0-33.0 Chloride [Moles/volume] in Serum or Plasma 2024-01-12 07:00:36 102 mEq/L F 99.0-109.0 Chloride [Moles/volume] in Serum or Plasma 2024-01-12 07:00:36 102 mEq/L F 99.0-109.0 Chloride [Moles/volume] in Serum or Plasma 2024-01-12 07:00:36 102 mEq/L F 99.0-109.0 Aluminum [Mass/volume] in Serum or Plasma 2024-01-11 16:56:54 10 ug/L F 0.0-9.0 Aluminum [Mass/volume] in Serum or Plasma 2024-01-11 16:56:54 10 ug/L F 0.0-9.0 Aluminum [Mass/volume] in Serum or Plasma 2024-01-11 16:56:54 10 ug/L F 0.0-9.0 Aspartate aminotransferase [Enzymatic activity/volume] in Serum or Plasma 2024-01-11 14:43:13 21 U/L F 0.0-33.0 Alanine aminotransferase [Enzymatic activity/volume] in Serum or Plasma 2024-01-11 14:43:13 15 U/L F 10.0-49.0 Aspartate aminotransferase [Enzymatic activity/volume] in Serum or Plasma 2024-01-11 14:43:13 21 U/L F 0.0-33.0 Alanine aminotransferase [Enzymatic activity/volume] in Serum or Plasma 2024-01-11 14:43:13 15 U/L F 10.0-49.0 Alanine aminotransferase [Enzymatic activity/volume] in Serum or Plasma 2024-01-11 14:43:13 15 U/L F 10.0-49.0 Aspartate aminotransferase [Enzymatic activity/volume] in Serum or Plasma 2024-01-11 14:43:13 21 U/L F 0.0-33.0 Chloride [Moles/volume] in Serum or Plasma 2023-12-14 21:51:38 99 mEq/L F 99.0-109.0 Chloride [Moles/volume] in Serum or Plasma 2023-12-14 21:51:38 99 mEq/L F 99.0-109.0 Aspartate aminotransferase [Enzymatic activity/volume] in Serum or Plasma 2023-12-14 13:02:19 19 U/L F 0.0-33.0 Alanine aminotransferase [Enzymatic activity/volume] in Serum or Plasma 2023-12-14 13:02:19 14 U/L F 10.0-49.0 Aspartate aminotransferase [Enzymatic activity/volume] in Serum or Plasma 2023-12-14 13:02:19 19 U/L F 0.0-33.0 Alanine aminotransferase [Enzymatic activity/volume] in Serum or Plasma 2023-12-14 13:02:19 14 U/L F 10.0-49.0 Chloride [Moles/volume] in Serum or Plasma 2023-11-09 17:22:14 101 mEq/L F 99.0-109.0 Chloride [Moles/volume] in Serum or Plasma 2023-11-09 17:22:14 101 mEq/L F 99.0-109.0 Alanine aminotransferase [Enzymatic activity/volume] in Serum or Plasma 2023-11-09 14:12:14 14 U/L F 10.0-49.0 Aspartate aminotransferase [Enzymatic activity/volume] in Serum or Plasma 2023-11-09 14:12:14 22 U/L F 0.0-33.0 Aspartate aminotransferase [Enzymatic activity/volume] in Serum or Plasma 2023-11-09 14:12:14 22 U/L F 0.0-33.0 Alanine aminotransferase [Enzymatic activity/volume] in Serum or Plasma 2023-11-09 14:12:14 14 U/L F 10.0-49.0 Aluminum [Mass/volume] in Serum or Plasma 2023-01-05 18:51:22 10 ug/L F 0.0-9.0 Aluminum [Mass/volume] in Serum or Plasma 2023-01-05 18:51:22 10 ug/L F 0.0-9.0 Aspartate aminotransferase [Enzymatic activity/volume] in Serum or Plasma 2023-01-05 16:16:31 20 U/L F 0.0-33.0 Chloride [Moles/volume] in Serum or Plasma 2023-01-05 16:16:31 101 mEq/L F 99.0-109.0 Alanine aminotransferase [Enzymatic activity/volume] in Serum or Plasma 2023-01-05 16:16:31 17 U/L F 10.0-49.0 Aspartate aminotransferase [Enzymatic activity/volume] in Serum or Plasma 2023-01-05 16:16:31 20 U/L F 0.0-33.0 Alanine aminotransferase [Enzymatic activity/volume] in Serum or Plasma 2023-01-05 16:16:31 17 U/L F 10.0-49.0 Chloride [Moles/volume] in Serum or Plasma 2023-01-05 16:16:31 101 mEq/L F 99.0-109.0 Alanine aminotransferase [Enzymatic activity/volume] in Serum or Plasma 2022-06-09 19:07:21 15 U/L F 10.0-49.0 Aspartate aminotransferase [Enzymatic activity/volume] in Serum or Plasma 2022-06-09 19:07:21 24 U/L F 0.0-33.0 Chloride [Moles/volume] in Serum or Plasma 2022-06-09 19:07:21 101 mEq/L F 99.0-109.0 Alanine aminotransferase [Enzymatic activity/volume] in Serum or Plasma 2022-05-20 16:08:10 20 U/L F 10.0-49.0 Chloride [Moles/volume] in Serum or Plasma 2022-05-20 16:08:10 99 mEq/L F 99.0-109.0 Aspartate aminotransferase [Enzymatic activity/volume] in Serum or Plasma 2022-05-20 16:08:10 23 U/L F 0.0-33.0 Chloride [Moles/volume] in Serum or Plasma 2022-04-14 15:31:57 101 mEq/L F 99.0-109.0 Aspartate aminotransferase [Enzymatic activity/volume] in Serum or Plasma 2022-04-14 15:31:57 20 U/L F 0.0-33.0 Alanine aminotransferase [Enzymatic activity/volume] in Serum or Plasma 2022-04-14 15:31:57 17 U/L F 10.0-49.0 Aspartate aminotransferase [Enzymatic activity/volume] in Serum or Plasma 2022-03-10 16:49:48 22 U/L F 0.0-33.0 Chloride [Moles/volume] in Serum or Plasma 2022-03-10 16:49:48 100 mEq/L F 99.0-109.0 Alanine aminotransferase [Enzymatic activity/volume] in Serum or Plasma 2022-03-10 16:49:48 20 U/L F 10.0-49.0 Aspartate aminotransferase [Enzymatic activity/volume] in Serum or Plasma 2022-02-10 19:06:42 16 U/L F 0.0-33.0 Alanine aminotransferase [Enzymatic activity/volume] in Serum or Plasma 2022-02-10 19:06:42 18 U/L F 10.0-49.0 Chloride [Moles/volume] in Serum or Plasma 2022-02-10 19:06:40 102 mEq/L F 99.0-109.0 InfectionVaccination Description Draw Date Result/Unit Status Ref Range Result Comments Leukocytes [#/volume] in Blood by Automated count 2024-03-14 16:18:20 13 x 10^3 cells/uL F 4.0-11.0 Neutrophils/100 leukocytes in Blood by Automated count 2024-03-14 16:18:19 65.3 % F Lymphocytes/100 leukocytes in Blood by Automated count 2024-03-14 16:18:19 21.7 % F Eosinophils/100 leukocytes in Blood by Automated count 2024-03-14 16:18:19 8.7 % F Monocytes [#/volume] in Blood by Automated count 2024-03-14 16:18:19 531 Cells/uL F 0.0-1100.0 Monocytes/100 leukocytes in Blood by Automated count 2024-03-14 16:18:19 4.1 % F Lymphocytes [#/volume] in Blood by Automated count 2024-03-14 16:18:19 2810 Cells/uL F 620.0-3660.0 Basophils/100 leukocytes in Blood by Automated count 2024-03-14 16:18:19 0.2 % F Basophils [#/volume] in Blood by Automated count 2024-03-14 16:18:19 26 Cells/uL F 0.0-400.0 Eosinophils [#/volume] in Blood by Automated count 2024-03-14 16:18:19 1127 Cells/uL F 0.0-700.0 Neutrophils [#/volume] in Blood by Automated count 2024-03-14 16:18:19 8456 Cells/uL F 2000.0-8800.0 Leukocytes [#/volume] in Blood by Automated count 2024-02-08 15:49:22 11.6 x 10^3 cells/uL F 4.0-11.0 Basophils [#/volume] in Blood by Automated count 2024-02-08 15:49:22 23 Cells/uL F 0.0-400.0 Eosinophils [#/volume] in Blood by Automated count 2024-02-08 15:49:22 752 Cells/uL F 0.0-700.0 Neutrophils [#/volume] in Blood by Automated count 2024-02-08 15:49:22 7081 Cells/uL F 2000.0-8800.0 Eosinophils/100 leukocytes in Blood by Automated count 2024-02-08 15:49:22 6.5 % F Basophils/100 leukocytes in Blood by Automated count 2024-02-08 15:49:22 0.2 % F Monocytes/100 leukocytes in Blood by Automated count 2024-02-08 15:49:22 5.8 % F Monocytes [#/volume] in Blood by Automated count 2024-02-08 15:49:22 671 Cells/uL F 0.0-1100.0 Lymphocytes/100 leukocytes in Blood by Automated count 2024-02-08 15:49:22 26.3 % F Lymphocytes [#/volume] in Blood by Automated count 2024-02-08 15:49:22 3043 Cells/uL F 620.0-3660.0 Neutrophils/100 leukocytes in Blood by Automated count 2024-02-08 15:49:22 61.2 % F Basophils/100 leukocytes in Blood by Automated count 2024-02-08 15:49:22 0.2 % F Neutrophils/100 leukocytes in Blood by Automated count 2024-02-08 15:49:22 61.2 % F Lymphocytes/100 leukocytes in Blood by Automated count 2024-02-08 15:49:22 26.3 % F Eosinophils/100 leukocytes in Blood by Automated count 2024-02-08 15:49:22 6.5 % F Monocytes/100 leukocytes in Blood by Automated count 2024-02-08 15:49:22 5.8 % F Leukocytes [#/volume] in Blood by Automated count 2024-02-08 15:49:22 11.6 x 10^3 cells/uL F 4.0-11.0 Neutrophils [#/volume] in Blood by Automated count 2024-02-08 15:49:22 7081 Cells/uL F 2000.0-8800.0 Lymphocytes [#/volume] in Blood by Automated count 2024-02-08 15:49:22 3043 Cells/uL F 620.0-3660.0 Basophils [#/volume] in Blood by Automated count 2024-02-08 15:49:22 23 Cells/uL F 0.0-400.0 Monocytes [#/volume] in Blood by Automated count 2024-02-08 15:49:22 671 Cells/uL F 0.0-1100.0 Eosinophils [#/volume] in Blood by Automated count 2024-02-08 15:49:22 752 Cells/uL F 0.0-700.0 Basophils/100 leukocytes in Blood by Automated count 2024-02-08 15:49:22 0.2 % F Eosinophils/100 leukocytes in Blood by Automated count 2024-02-08 15:49:22 6.5 % F Leukocytes [#/volume] in Blood by Automated count 2024-02-08 15:49:22 11.6 x 10^3 cells/uL F 4.0-11.0 Eosinophils [#/volume] in Blood by Automated count 2024-02-08 15:49:22 752 Cells/uL F 0.0-700.0 Monocytes [#/volume] in Blood by Automated count 2024-02-08 15:49:22 671 Cells/uL F 0.0-1100.0 Monocytes/100 leukocytes in Blood by Automated count 2024-02-08 15:49:22 5.8 % F Lymphocytes/100 leukocytes in Blood by Automated count 2024-02-08 15:49:22 26.3 % F Neutrophils/100 leukocytes in Blood by Automated count 2024-02-08 15:49:22 61.2 % F Basophils [#/volume] in Blood by Automated count 2024-02-08 15:49:22 23 Cells/uL F 0.0-400.0 Lymphocytes [#/volume] in Blood by Automated count 2024-02-08 15:49:22 3043 Cells/uL F 620.0-3660.0 Neutrophils [#/volume] in Blood by Automated count 2024-02-08 15:49:22 7081 Cells/uL F 2000.0-8800.0 Basophils/100 leukocytes in Blood by Automated count 2024-01-12 01:50:19 0.8 % F Neutrophils/100 leukocytes in Blood by Automated count 2024-01-12 01:50:19 54 % F Lymphocytes/100 leukocytes in Blood by Automated count 2024-01-12 01:50:19 36.6 % F Basophils [#/volume] in Blood by Automated count 2024-01-12 01:50:19 80 Cells/uL F 0.0-400.0 Lymphocytes [#/volume] in Blood by Automated count 2024-01-12 01:50:19 3682 Cells/uL F 620.0-3660.0 Monocytes/100 leukocytes in Blood by Automated count 2024-01-12 01:50:19 5.1 % F Neutrophils [#/volume] in Blood by Automated count 2024-01-12 01:50:19 5432 Cells/uL F 2000.0-8800.0 Eosinophils/100 leukocytes in Blood by Automated count 2024-01-12 01:50:19 3.5 % F Leukocytes [#/volume] in Blood by Automated count 2024-01-12 01:50:19 10.1 x 10^3 cells/uL F 4.0-11.0 Eosinophils [#/volume] in Blood by Automated count 2024-01-12 01:50:19 352 Cells/uL F 0.0-700.0 Monocytes [#/volume] in Blood by Automated count 2024-01-12 01:50:19 513 Cells/uL F 0.0-1100.0 Monocytes/100 leukocytes in Blood by Automated count 2024-01-12 01:50:19 5.1 % F Neutrophils/100 leukocytes in Blood by Automated count 2024-01-12 01:50:19 54 % F Eosinophils/100 leukocytes in Blood by Automated count 2024-01-12 01:50:19 3.5 % F Lymphocytes/100 leukocytes in Blood by Automated count 2024-01-12 01:50:19 36.6 % F Basophils/100 leukocytes in Blood by Automated count 2024-01-12 01:50:19 0.8 % F Leukocytes [#/volume] in Blood by Automated count 2024-01-12 01:50:19 10.1 x 10^3 cells/uL F 4.0-11.0 Basophils [#/volume] in Blood by Automated count 2024-01-12 01:50:19 80 Cells/uL F 0.0-400.0 Eosinophils [#/volume] in Blood by Automated count 2024-01-12 01:50:19 352 Cells/uL F 0.0-700.0 Monocytes [#/volume] in Blood by Automated count 2024-01-12 01:50:19 513 Cells/uL F 0.0-1100.0 Lymphocytes [#/volume] in Blood by Automated count 2024-01-12 01:50:19 3682 Cells/uL F 620.0-3660.0 Neutrophils [#/volume] in Blood by Automated count 2024-01-12 01:50:19 5432 Cells/uL F 2000.0-8800.0 Basophils/100 leukocytes in Blood by Automated count 2024-01-12 01:50:19 0.8 % F Neutrophils/100 leukocytes in Blood by Automated count 2024-01-12 01:50:19 54 % F Lymphocytes/100 leukocytes in Blood by Automated count 2024-01-12 01:50:19 36.6 % F Monocytes/100 leukocytes in Blood by Automated count 2024-01-12 01:50:19 5.1 % F Eosinophils/100 leukocytes in Blood by Automated count 2024-01-12 01:50:19 3.5 % F Leukocytes [#/volume] in Blood by Automated count 2024-01-12 01:50:19 10.1 x 10^3 cells/uL F 4.0-11.0 Neutrophils [#/volume] in Blood by Automated count 2024-01-12 01:50:19 5432 Cells/uL F 2000.0-8800.0 Lymphocytes [#/volume] in Blood by Automated count 2024-01-12 01:50:19 3682 Cells/uL F 620.0-3660.0 Eosinophils [#/volume] in Blood by Automated count 2024-01-12 01:50:19 352 Cells/uL F 0.0-700.0 Monocytes [#/volume] in Blood by Automated count 2024-01-12 01:50:19 513 Cells/uL F 0.0-1100.0 Basophils [#/volume] in Blood by Automated count 2024-01-12 01:50:19 80 Cells/uL F 0.0-400.0 Eosinophils/100 leukocytes in Blood by Automated count 2023-12-14 23:57:18 4 % F Monocytes/100 leukocytes in Blood by Automated count 2023-12-14 23:57:18 4.6 % F Lymphocytes/100 leukocytes in Blood by Automated count 2023-12-14 23:57:18 28.6 % F Eosinophils [#/volume] in Blood by Automated count 2023-12-14 23:57:18 406 Cells/uL F 0.0-700.0 Basophils [#/volume] in Blood by Automated count 2023-12-14 23:57:18 30 Cells/uL F 0.0-400.0 Leukocytes [#/volume] in Blood by Automated count 2023-12-14 23:57:18 10.2 x 10^3 cells/uL F 4.0-11.0 Lymphocytes [#/volume] in Blood by Automated count 2023-12-14 23:57:18 2906 Cells/uL F 620.0-3660.0 Basophils/100 leukocytes in Blood by Automated count 2023-12-14 23:57:18 0.3 % F Neutrophils/100 leukocytes in Blood by Automated count 2023-12-14 23:57:18 62.5 % F Monocytes [#/volume] in Blood by Automated count 2023-12-14 23:57:18 467 Cells/uL F 0.0-1100.0 Neutrophils [#/volume] in Blood by Automated count 2023-12-14 23:57:18 6350 Cells/uL F 2000.0-8800.0 Lymphocytes/100 leukocytes in Blood by Automated count 2023-12-14 23:57:18 28.6 % F Eosinophils/100 leukocytes in Blood by Automated count 2023-12-14 23:57:18 4 % F Monocytes/100 leukocytes in Blood by Automated count 2023-12-14 23:57:18 4.6 % F Leukocytes [#/volume] in Blood by Automated count 2023-12-14 23:57:18 10.2 x 10^3 cells/uL F 4.0-11.0 Basophils [#/volume] in Blood by Automated count 2023-12-14 23:57:18 30 Cells/uL F 0.0-400.0 Eosinophils [#/volume] in Blood by Automated count 2023-12-14 23:57:18 406 Cells/uL F 0.0-700.0 Lymphocytes [#/volume] in Blood by Automated count 2023-12-14 23:57:18 2906 Cells/uL F 620.0-3660.0 Basophils/100 leukocytes in Blood by Automated count 2023-12-14 23:57:18 0.3 % F Neutrophils/100 leukocytes in Blood by Automated count 2023-12-14 23:57:18 62.5 % F Monocytes [#/volume] in Blood by Automated count 2023-12-14 23:57:18 467 Cells/uL F 0.0-1100.0 Neutrophils [#/volume] in Blood by Automated count 2023-12-14 23:57:18 6350 Cells/uL F 2000.0-8800.0 Basophils/100 leukocytes in Blood by Automated count 2023-11-09 15:08:18 0.3 % F Leukocytes [#/volume] in Blood by Automated count 2023-11-09 15:08:18 10.8 x 10'3 cells/uL F 4.0-11.0 Neutrophils [#/volume] in Blood by Automated count 2023-11-09 15:08:18 6321 Cell/uL F 2000.0-8800.0 Lymphocytes [#/volume] in Blood by Automated count 2023-11-09 15:08:18 2816 Cell/uL F 620.0-3660.0 Basophils/100 leukocytes in Blood by Automated count 2023-11-09 15:08:18 0.3 % F Leukocytes [#/volume] in Blood by Automated count 2023-11-09 15:08:18 10.8 x 10'3 cells/uL F 4.0-11.0 Neutrophils [#/volume] in Blood by Automated count 2023-11-09 15:08:18 6321 Cell/uL F 2000.0-8800.0 Lymphocytes [#/volume] in Blood by Automated count 2023-11-09 15:08:18 2816 Cell/uL F 620.0-3660.0 Neutrophils/100 leukocytes in Blood by Automated count 2023-11-09 15:08:16 58.8 % F Lymphocytes/100 leukocytes in Blood by Automated count 2023-11-09 15:08:16 26.2 % F Monocytes/100 leukocytes in Blood by Automated count 2023-11-09 15:08:16 5.9 % F Eosinophils/100 leukocytes in Blood by Automated count 2023-11-09 15:08:16 8.8 % F Monocytes [#/volume] in Blood by Automated count 2023-11-09 15:08:16 634 Cell/uL F 0.0-1100.0 Basophils [#/volume] in Blood by Automated count 2023-11-09 15:08:16 32 Cell/uL F 0.0-400.0 Eosinophils [#/volume] in Blood by Automated count 2023-11-09 15:08:16 946 Cell/uL F 0.0-700.0 Eosinophils/100 leukocytes in Blood by Automated count 2023-11-09 15:08:16 8.8 % F Neutrophils/100 leukocytes in Blood by Automated count 2023-11-09 15:08:16 58.8 % F Eosinophils [#/volume] in Blood by Automated count 2023-11-09 15:08:16 946 Cell/uL F 0.0-700.0 Lymphocytes/100 leukocytes in Blood by Automated count 2023-11-09 15:08:16 26.2 % F Monocytes/100 leukocytes in Blood by Automated count 2023-11-09 15:08:16 5.9 % F Basophils [#/volume] in Blood by Automated count 2023-11-09 15:08:16 32 Cell/uL F 0.0-400.0 Monocytes [#/volume] in Blood by Automated count 2023-11-09 15:08:16 634 Cell/uL F 0.0-1100.0 Monocytes/100 leukocytes in Blood by Automated count 2023-01-05 16:43:36 6.6 % F Basophils/100 leukocytes in Blood by Automated count 2023-01-05 16:43:36 0.3 % F Monocytes [#/volume] in Blood by Automated count 2023-01-05 16:43:36 566 Cell/uL F 0.0-1100.0 Neutrophils [#/volume] in Blood by Automated count 2023-01-05 16:43:36 4496 Cell/uL F 2000.0-8800.0 Lymphocytes/100 leukocytes in Blood by Automated count 2023-01-05 16:43:36 36.7 % F Neutrophils/100 leukocytes in Blood by Automated count 2023-01-05 16:43:36 52.4 % F Eosinophils/100 leukocytes in Blood by Automated count 2023-01-05 16:43:36 4 % F Leukocytes [#/volume] in Blood by Automated count 2023-01-05 16:43:36 8.6 x 10^3 cells/uL F 4.0-11.0 Basophils [#/volume] in Blood by Automated count 2023-01-05 16:43:36 26 Cell/uL F 0.0-400.0 Eosinophils [#/volume] in Blood by Automated count 2023-01-05 16:43:36 343 Cell/uL F 0.0-700.0 Lymphocytes [#/volume] in Blood by Automated count 2023-01-05 16:43:36 3149 Cell/uL F 620.0-3660.0 Lymphocytes/100 leukocytes in Blood by Automated count 2023-01-05 16:43:36 36.7 % F Neutrophils/100 leukocytes in Blood by Automated count 2023-01-05 16:43:36 52.4 % F Basophils/100 leukocytes in Blood by Automated count 2023-01-05 16:43:36 0.3 % F Monocytes/100 leukocytes in Blood by Automated count 2023-01-05 16:43:36 6.6 % F Eosinophils/100 leukocytes in Blood by Automated count 2023-01-05 16:43:36 4 % F Leukocytes [#/volume] in Blood by Automated count 2023-01-05 16:43:36 8.6 x 10'3 cells/uL F 4.0-11.0 Eosinophils [#/volume] in Blood by Automated count 2023-01-05 16:43:36 343 Cell/uL F 0.0-700.0 Basophils [#/volume] in Blood by Automated count 2023-01-05 16:43:36 26 Cell/uL F 0.0-400.0 Monocytes [#/volume] in Blood by Automated count 2023-01-05 16:43:36 566 Cell/uL F 0.0-1100.0 Lymphocytes [#/volume] in Blood by Automated count 2023-01-05 16:43:36 3149 Cell/uL F 620.0-3660.0 Neutrophils [#/volume] in Blood by Automated count 2023-01-05 16:43:36 4496 Cell/uL F 2000.0-8800.0 Monocytes/100 leukocytes in Blood by Automated count 2022-06-09 15:32:20 6.6 % F Eosinophils/100 leukocytes in Blood by Automated count 2022-06-09 15:32:20 5.8 % F Neutrophils/100 leukocytes in Blood by Automated count 2022-06-09 15:32:20 50.3 % F Lymphocytes/100 leukocytes in Blood by Automated count 2022-06-09 15:32:20 36.9 % F Eosinophils [#/volume] in Blood by Automated count 2022-06-09 15:32:20 451.82 Cell/uL F 0.0-700.0 Basophils [#/volume] in Blood by Automated count 2022-06-09 15:32:20 31.16 Cell/uL F 0.0-400.0 Neutrophils [#/volume] in Blood by Automated count 2022-06-09 15:32:20 3918.37 Cell/uL F 2000.0-8800.0 Basophils/100 leukocytes in Blood by Automated count 2022-06-09 15:32:20 0.4 % F Monocytes [#/volume] in Blood by Automated count 2022-06-09 15:32:20 514.14 Cell/uL F 0.0-1100.0 Leukocytes [#/volume] in Blood by Automated count 2022-06-09 15:32:20 7.8 x 10^3 cells/uL F 4.5-11.0 Lymphocytes [#/volume] in Blood by Automated count 2022-06-09 15:32:20 2874.51 Cell/uL F 1100.0-4800.0 Basophils/100 leukocytes in Blood by Automated count 2022-05-20 17:10:14 0.5 % F Eosinophils/100 leukocytes in Blood by Automated count 2022-05-20 17:10:14 7.3 % F Basophils [#/volume] in Blood by Automated count 2022-05-20 17:10:14 43.45 Cell/uL F 0.0-400.0 Monocytes [#/volume] in Blood by Automated count 2022-05-20 17:10:14 538.78 Cell/uL F 0.0-1100.0 Neutrophils/100 leukocytes in Blood by Automated count 2022-05-20 17:10:14 56.7 % F Monocytes/100 leukocytes in Blood by Automated count 2022-05-20 17:10:14 6.2 % F Lymphocytes/100 leukocytes in Blood by Automated count 2022-05-20 17:10:14 29.2 % F Leukocytes [#/volume] in Blood by Automated count 2022-05-20 17:10:14 8.7 x 10^3 cells/uL F 4.5-11.0 Eosinophils [#/volume] in Blood by Automated count 2022-05-20 17:10:14 634.37 Cell/uL F 0.0-700.0 Neutrophils [#/volume] in Blood by Automated count 2022-05-20 17:10:14 4927.23 Cell/uL F 2000.0-8800.0 Lymphocytes [#/volume] in Blood by Automated count 2022-05-20 17:10:14 2537.48 Cell/uL F 1100.0-4800.0 Basophils/100 leukocytes in Blood by Automated count 2022-04-14 14:21:21 0.3 % F Lymphocytes/100 leukocytes in Blood by Automated count 2022-04-14 14:21:21 38.1 % F Neutrophils/100 leukocytes in Blood by Automated count 2022-04-14 14:21:21 47.8 % F Monocytes/100 leukocytes in Blood by Automated count 2022-04-14 14:21:21 6.2 % F Eosinophils [#/volume] in Blood by Automated count 2022-04-14 14:21:21 489.44 Cell/uL F 0.0-700.0 Eosinophils/100 leukocytes in Blood by Automated count 2022-04-14 14:21:21 7.6 % F Leukocytes [#/volume] in Blood by Automated count 2022-04-14 14:21:21 6.4 x 10^3 cells/uL F 4.5-11.0 Basophils [#/volume] in Blood by Automated count 2022-04-14 14:21:21 19.32 Cell/uL F 0.0-400.0 Monocytes [#/volume] in Blood by Automated count 2022-04-14 14:21:21 399.28 Cell/uL F 0.0-1100.0 Neutrophils [#/volume] in Blood by Automated count 2022-04-14 14:21:21 3078.32 Cell/uL F 2000.0-8800.0 Lymphocytes [#/volume] in Blood by Automated count 2022-04-14 14:21:21 2453.64 Cell/uL F 1100.0-4800.0 Basophils/100 leukocytes in Blood by Automated count 2022-03-10 18:23:49 0.5 % F Eosinophils/100 leukocytes in Blood by Automated count 2022-03-10 18:23:49 4.5 % F Lymphocytes [#/volume] in Blood by Automated count 2022-03-10 18:23:49 2111.1 Cell/uL F 1100.0-4800.0 Neutrophils/100 leukocytes in Blood by Automated count 2022-03-10 18:23:49 57.8 % F Monocytes/100 leukocytes in Blood by Automated count 2022-03-10 18:23:49 6.2 % F Leukocytes [#/volume] in Blood by Automated count 2022-03-10 18:23:49 6.8 x 10^3 cells/uL F 4.5-11.0 Lymphocytes/100 leukocytes in Blood by Automated count 2022-03-10 18:23:49 31 % F Basophils [#/volume] in Blood by Automated count 2022-03-10 18:23:49 34.05 Cell/uL F 0.0-400.0 Eosinophils [#/volume] in Blood by Automated count 2022-03-10 18:23:49 306.45 Cell/uL F 0.0-700.0 Monocytes [#/volume] in Blood by Automated count 2022-03-10 18:23:49 422.22 Cell/uL F 0.0-1100.0 Neutrophils [#/volume] in Blood by Automated count 2022-03-10 18:23:49 3936.18 Cell/uL F 2000.0-8800.0 Basophils/100 leukocytes in Blood by Automated count 2022-02-10 20:12:51 0.8 % F Eosinophils/100 leukocytes in Blood by Automated count 2022-02-10 20:12:51 4.6 % F Neutrophils [#/volume] in Blood by Automated count 2022-02-10 20:12:51 6161.48 Cell/uL F 2000.0-8800.0 Neutrophils/100 leukocytes in Blood by Automated count 2022-02-10 20:12:49 57.8 % F Basophils [#/volume] in Blood by Automated count 2022-02-10 20:12:49 85.28 Cell/uL F 0.0-400.0 Monocytes [#/volume] in Blood by Automated count 2022-02-10 20:12:49 692.9 Cell/uL F 0.0-1100.0 Lymphocytes [#/volume] in Blood by Automated count 2022-02-10 20:12:49 3240.64 Cell/uL F 1100.0-4800.0 Monocytes/100 leukocytes in Blood by Automated count 2022-02-10 20:12:49 6.5 % F Lymphocytes/100 leukocytes in Blood by Automated count 2022-02-10 20:12:49 30.4 % F Leukocytes [#/volume] in Blood by Automated count 2022-02-10 20:12:49 10.7 x 10^3 cells/uL F 4.5-11.0 Eosinophils [#/volume] in Blood by Automated count 2022-02-10 20:12:49 490.36 Cell/uL F 0.0-700.0 Phosphate [Mass/volume] in Urine Phosphate [Mass/volume] in Urine Phosphate [Mass/volume] in Urine Phosphate [Mass/volume] in Urine MineralBone Disorder Description Draw Date Result/Unit Status Ref Range Result Comments Magnesium [Mass/volume] in Serum or Plasma 2024-03-14 18:40:25 2 mg/dL F 1.3-2.7 Alkaline phosphatase [Enzymatic activity/volume] in Serum or Plasma 2024-03-14 18:40:25 106 U/L F 46.0-116.0 CA CORRECTED 2024-03-01 11:13:57 9.3 mg/dL F CA CORRECTED 2024-03-01 11:13:57 9.3 mg/dL F CA CORRECTED 2024-03-01 11:13:57 9.3 mg/dL F CA CORRECTED 2024-03-01 11:13:57 9.3 mg/dL F CA*PO4 CORRCTD 2024-03-01 11:12:21 46.7 Calc F 21.0-53.0 CA/PHOS PRODUCT 2024-03-01 11:12:21 45.5 Calc F 21.0-53.0 CA/PHOS PRODUCT 2024-03-01 11:12:21 45.5 Calc F 21.0-53.0 CA*PO4 CORRCTD 2024-03-01 11:12:21 46.7 Calc F 21.0-53.0 CA*PO4 CORRCTD 2024-03-01 11:12:21 46.7 Calc F 21.0-53.0 CA/PHOS PRODUCT 2024-03-01 11:12:21 45.5 Calc F 21.0-53.0 CA*PO4 CORRCTD 2024-03-01 11:12:21 46.7 Calc F 21.0-53.0 CA/PHOS PRODUCT 2024-03-01 11:12:21 45.5 Calc F 21.0-53.0 Calcium [Mass/volume] in Serum or Plasma 2024-03-01 08:24:07 9.1 mg/dL F 8.7-10.4 Calcium [Mass/volume] in Serum or Plasma 2024-03-01 08:24:07 9.1 mg/dL F 8.7-10.4 Calcium [Mass/volume] in Serum or Plasma 2024-03-01 08:24:07 9.1 mg/dL F 8.7-10.4 Calcium [Mass/volume] in Serum or Plasma 2024-03-01 08:24:07 9.1 mg/dL F 8.7-10.4 Phosphate [Mass/volume] in Serum or Plasma 2024-03-01 08:23:50 5 mg/dL F 2.4-5.1 Phosphate [Mass/volume] in Serum or Plasma 2024-03-01 08:23:50 5 mg/dL F 2.4-5.1 Phosphate [Mass/volume] in Serum or Plasma 2024-03-01 08:23:50 5 mg/dL F 2.4-5.1 Phosphate [Mass/volume] in Serum or Plasma 2024-03-01 08:23:50 5 mg/dL F 2.4-5.1 Parathyrin.intact [Mass/volume] in Serum or Plasma 2024-02-29 16:01:16 710 pg/mL F 18.0-80.0 Parathyrin.intact [Mass/volume] in Serum or Plasma 2024-02-29 16:01:16 710 pg/mL F 18.0-80.0 Parathyrin.intact [Mass/volume] in Serum or Plasma 2024-02-29 16:01:16 710 pg/mL F 18.0-80.0 Parathyrin.intact [Mass/volume] in Serum or Plasma 2024-02-29 16:01:16 710 pg/mL F 18.0-80.0 Magnesium [Mass/volume] in Serum or Plasma 2024-02-08 14:37:18 1.9 mg/dL F 1.3-2.7 Alkaline phosphatase [Enzymatic activity/volume] in Serum or Plasma 2024-02-08 14:37:18 85 U/L F 46.0-116.0 Alkaline phosphatase [Enzymatic activity/volume] in Serum or Plasma 2024-02-08 14:37:18 85 U/L F 46.0-116.0 Magnesium [Mass/volume] in Serum or Plasma 2024-02-08 14:37:18 1.9 mg/dL F 1.3-2.7 Magnesium [Mass/volume] in Serum or Plasma 2024-02-08 14:37:18 1.9 mg/dL F 1.3-2.7 Alkaline phosphatase [Enzymatic activity/volume] in Serum or Plasma 2024-02-08 14:37:18 85 U/L F 46.0-116.0 CA CORRECTED 2024-01-26 09:06:02 9.2 mg/dL F CA CORRECTED 2024-01-26 09:06:02 9.2 mg/dL F CA CORRECTED 2024-01-26 09:06:02 9.2 mg/dL F CA CORRECTED 2024-01-26 09:06:02 9.2 mg/dL F CA/PHOS PRODUCT 2024-01-26 09:04:58 56.1 Calc F 21.0-53.0 CA*PO4 CORRCTD 2024-01-26 09:04:58 56.1 Calc F 21.0-53.0 CA/PHOS PRODUCT 2024-01-26 09:04:58 56.1 Calc F 21.0-53.0 CA*PO4 CORRCTD 2024-01-26 09:04:58 56.1 Calc F 21.0-53.0 CA/PHOS PRODUCT 2024-01-26 09:04:58 56.1 Calc F 21.0-53.0 CA*PO4 CORRCTD 2024-01-26 09:04:58 56.1 Calc F 21.0-53.0 CA/PHOS PRODUCT 2024-01-26 09:04:58 56.1 Calc F 21.0-53.0 CA*PO4 CORRCTD 2024-01-26 09:04:58 56.1 Calc F 21.0-53.0 Calcium [Mass/volume] in Serum or Plasma 2024-01-26 07:27:06 9.2 mg/dL F 8.7-10.4 Calcium [Mass/volume] in Serum or Plasma 2024-01-26 07:27:06 9.2 mg/dL F 8.7-10.4 Calcium [Mass/volume] in Serum or Plasma 2024-01-26 07:27:06 9.2 mg/dL F 8.7-10.4 Calcium [Mass/volume] in Serum or Plasma 2024-01-26 07:27:06 9.2 mg/dL F 8.7-10.4 Phosphate [Mass/volume] in Serum or Plasma 2024-01-26 03:35:26 6.1 mg/dL F 2.4-5.1 Phosphate [Mass/volume] in Serum or Plasma 2024-01-26 03:35:26 6.1 mg/dL F 2.4-5.1 Phosphate [Mass/volume] in Serum or Plasma 2024-01-26 03:35:26 6.1 mg/dL F 2.4-5.1 Phosphate [Mass/volume] in Serum or Plasma 2024-01-26 03:35:26 6.1 mg/dL F 2.4-5.1 Parathyrin.intact [Mass/volume] in Serum or Plasma 2024-01-25 21:12:26 538 pg/mL F 18.0-80.0 Parathyrin.intact [Mass/volume] in Serum or Plasma 2024-01-25 21:12:26 538 pg/mL F 18.0-80.0 Parathyrin.intact [Mass/volume] in Serum or Plasma 2024-01-25 21:12:26 538 pg/mL F 18.0-80.0 Parathyrin.intact [Mass/volume] in Serum or Plasma 2024-01-25 21:12:26 538 pg/mL F 18.0-80.0 Alkaline phosphatase [Enzymatic activity/volume] in Serum or Plasma 2024-01-11 14:43:13 87 U/L F 46.0-116.0 Magnesium [Mass/volume] in Serum or Plasma 2024-01-11 14:43:13 1.9 mg/dL F 1.3-2.7 Magnesium [Mass/volume] in Serum or Plasma 2024-01-11 14:43:13 1.9 mg/dL F 1.3-2.7 Alkaline phosphatase [Enzymatic activity/volume] in Serum or Plasma 2024-01-11 14:43:13 87 U/L F 46.0-116.0 Alkaline phosphatase [Enzymatic activity/volume] in Serum or Plasma 2024-01-11 14:43:13 87 U/L F 46.0-116.0 Magnesium [Mass/volume] in Serum or Plasma 2024-01-11 14:43:13 1.9 mg/dL F 1.3-2.7 CA CORRECTED 2023-12-29 04:46:24 9.7 mg/dL F CA CORRECTED 2023-12-29 04:46:24 9.7 mg/dL F CA/PHOS PRODUCT 2023-12-29 04:45:24 69.8 Calc F 21.0-53.0 CA*PO4 CORRCTD 2023-12-29 04:45:24 69.8 Calc F 21.0-53.0 CA/PHOS PRODUCT 2023-12-29 04:45:24 69.8 Calc F 21.0-53.0 CA*PO4 CORRCTD 2023-12-29 04:45:24 69.8 Calc F 21.0-53.0 Calcium [Mass/volume] in Serum or Plasma 2023-12-29 04:30:38 9.7 mg/dL F 8.7-10.4 Calcium [Mass/volume] in Serum or Plasma 2023-12-29 04:30:38 9.7 mg/dL F 8.7-10.4 Phosphate [Mass/volume] in Serum or Plasma 2023-12-28 22:01:20 7.2 mg/dL F 2.4-5.1 Phosphate [Mass/volume] in Serum or Plasma 2023-12-28 22:01:20 7.2 mg/dL F 2.4-5.1 Parathyrin.intact [Mass/volume] in Serum or Plasma 2023-12-28 16:29:21 432 pg/mL F 18.0-80.0 Parathyrin.intact [Mass/volume] in Serum or Plasma 2023-12-28 16:29:21 432 pg/mL F 18.0-80.0 Magnesium [Mass/volume] in Serum or Plasma 2023-12-14 13:02:19 2 mg/dL F 1.3-2.7 Alkaline phosphatase [Enzymatic activity/volume] in Serum or Plasma 2023-12-14 13:02:19 81 U/L F 46.0-116.0 Magnesium [Mass/volume] in Serum or Plasma 2023-12-14 13:02:19 2 mg/dL F 1.3-2.7 Alkaline phosphatase [Enzymatic activity/volume] in Serum or Plasma 2023-12-14 13:02:19 81 U/L F 46.0-116.0 CA CORRECTED 2023-12-03 01:24:17 9.5 mg/dL F CA CORRECTED 2023-12-03 01:24:17 9.5 mg/dL F CA/PHOS PRODUCT 2023-12-03 01:21:07 58 Calc F 21.0-53.0 CA*PO4 CORRCTD 2023-12-03 01:21:07 58 Calc F 21.0-53.0 CA/PHOS PRODUCT 2023-12-03 01:21:07 58 Calc F 21.0-53.0 CA*PO4 CORRCTD 2023-12-03 01:21:07 58 Calc F 21.0-53.0 Calcium [Mass/volume] in Serum or Plasma 2023-12-03 01:19:02 9.5 mg/dL F 8.7-10.4 Calcium [Mass/volume] in Serum or Plasma 2023-12-03 01:19:02 9.5 mg/dL F 8.7-10.4 Parathyrin.intact [Mass/volume] in Serum or Plasma 2023-12-02 20:22:14 543 pg/mL F 18.0-80.0 Parathyrin.intact [Mass/volume] in Serum or Plasma 2023-12-02 20:22:14 543 pg/mL F 18.0-80.0 Phosphate [Mass/volume] in Serum or Plasma 2023-12-02 16:18:22 6.1 mg/dL F 2.4-5.1 Phosphate [Mass/volume] in Serum or Plasma 2023-12-02 16:18:22 6.1 mg/dL F 2.4-5.1 Alkaline phosphatase [Enzymatic activity/volume] in Serum or Plasma 2023-11-09 14:12:14 106 U/L F 46.0-116.0 Magnesium [Mass/volume] in Serum or Plasma 2023-11-09 14:12:14 1.7 mg/dL F 1.3-2.7 Magnesium [Mass/volume] in Serum or Plasma 2023-11-09 14:12:14 1.7 mg/dL F 1.3-2.7 Alkaline phosphatase [Enzymatic activity/volume] in Serum or Plasma 2023-11-09 14:12:14 106 U/L F 46.0-116.0 CA CORRECTED 2023-11-08 05:54:28 F Unable to Calcul ate CA CORRECTED 2023-11-08 05:54:28 F Unable to Calcul ate CA/PHOS PRODUCT 2023-11-08 05:45:45 34.4 Calc F 21.0-53.0 CA*PO4 CORRCTD 2023-11-08 05:45:45 see comments F 21.0-53.0 Unable to Calculate.Unable to Calculate due to no valid Albumin History result CA*PO4 CORRCTD 2023-11-08 05:45:45 see comments F 21.0-53.0 Unable to Calculate.Unable to Calculate due to no valid Albumin History result CA/PHOS PRODUCT 2023-11-08 05:45:45 34.4 Calc F 21.0-53.0 Calcium [Mass/volume] in Serum or Plasma 2023-11-08 05:43:04 8.6 mg/dL F 8.7-10.4 Calcium [Mass/volume] in Serum or Plasma 2023-11-08 05:43:04 8.6 mg/dL F 8.7-10.4 Parathyrin.intact [Mass/volume] in Serum or Plasma 2023-11-07 18:56:21 158 pg/mL F 18.0-80.0 Parathyrin.intact [Mass/volume] in Serum or Plasma 2023-11-07 18:56:21 158 pg/mL F 18.0-80.0 Phosphate [Mass/volume] in Serum or Plasma 2023-11-07 17:57:16 4 mg/dL F 2.4-5.1 Phosphate [Mass/volume] in Serum or Plasma 2023-11-07 17:57:16 4 mg/dL F 2.4-5.1 Parathyrin.intact [Mass/volume] in Serum or Plasma 2023-01-06 05:13:30 460 pg/mL F 18.0-80.0 Parathyrin.intact [Mass/volume] in Serum or Plasma 2023-01-06 05:13:30 460 pg/mL F 18.0-80.0 Alkaline phosphatase [Enzymatic activity/volume] in Serum or Plasma 2023-01-05 16:16:31 55 U/L F 46.0-116.0 Magnesium [Mass/volume] in Serum or Plasma 2023-01-05 16:16:31 2 mg/dL F 1.3-2.7 Magnesium [Mass/volume] in Serum or Plasma 2023-01-05 16:16:31 2 mg/dL F 1.3-2.7 Alkaline phosphatase [Enzymatic activity/volume] in Serum or Plasma 2023-01-05 16:16:31 55 U/L F 46.0-116.0 Alkaline phosphatase [Enzymatic activity/volume] in Serum or Plasma 2022-06-09 19:07:21 61 U/L F 46.0-116.0 Alkaline phosphatase [Enzymatic activity/volume] in Serum or Plasma 2022-05-20 16:08:10 58 U/L F 46.0-116.0 Alkaline phosphatase [Enzymatic activity/volume] in Serum or Plasma 2022-04-14 15:31:57 65 U/L F 46.0-116.0 Alkaline phosphatase [Enzymatic activity/volume] in Serum or Plasma 2022-03-10 16:49:48 70 U/L F 46.0-116.0 Alkaline phosphatase [Enzymatic activity/volume] in Serum or Plasma 2022-02-10 19:06:40 74 U/L F 46.0-116.0 Nutrition Description Draw Date Result/Unit Status Ref Range Result Comments Potassium [Moles/volume] in Serum or Plasma 2024-03-15 06:06:00 3.7 mEq/L F 3.5-5.5 GLOBULIN 2024-03-14 18:41:05 2.5 g/dL F 0.9-5.0 A/G RATIO 2024-03-14 18:41:05 1.7 Calc F 1.0-2.5 Albumin [Mass/volume] in Serum or Plasma by Bromocresol green (BCG) dye binding method 2024-03-14 18:40:25 4.3 g/dL F 3.4-4.8 Protein [Mass/volume] in Serum or Plasma 2024-03-14 18:40:25 6.8 g/dL F 5.7-8.2 Glucose [Mass/volume] in Serum or Plasma 2024-03-14 18:40:25 130 mg/dL F 70.0-99.0 Lactate dehydrogenase [Enzymatic activity/volume] in Serum or Plasma 2024-03-14 18:40:25 218 U/L F 120.0-246.0 Bicarbonate [Moles/volume] in Serum or Plasma 2024-03-14 18:40:25 24 mEq/L F 20.0-31.0 Potassium [Moles/volume] in Serum or Plasma 2024-02-08 20:22:21 4.5 mEq/L F 3.5-5.5 Potassium [Moles/volume] in Serum or Plasma 2024-02-08 20:22:21 4.5 mEq/L F 3.5-5.5 Potassium [Moles/volume] in Serum or Plasma 2024-02-08 20:22:21 4.5 mEq/L F 3.5-5.5 A/G RATIO 2024-02-08 14:39:51 1.4 Calc F 1.0-2.5 GLOBULIN 2024-02-08 14:39:51 2.7 g/dL F 0.9-5.0 GLOBULIN 2024-02-08 14:39:51 2.7 g/dL F 0.9-5.0 A/G RATIO 2024-02-08 14:39:51 1.4 Calc F 1.0-2.5 GLOBULIN 2024-02-08 14:39:51 2.7 g/dL F 0.9-5.0 A/G RATIO 2024-02-08 14:39:51 1.4 Calc F 1.0-2.5 Protein [Mass/volume] in Serum or Plasma 2024-02-08 14:37:18 6.4 g/dL F 5.7-8.2 Albumin [Mass/volume] in Serum or Plasma by Bromocresol green (BCG) dye binding method 2024-02-08 14:37:18 3.7 g/dL F 3.4-4.8 Glucose [Mass/volume] in Serum or Plasma 2024-02-08 14:37:18 88 mg/dL F 70.0-99.0 Bicarbonate [Moles/volume] in Serum or Plasma 2024-02-08 14:37:18 24 mEq/L F 20.0-31.0 Lactate dehydrogenase [Enzymatic activity/volume] in Serum or Plasma 2024-02-08 14:37:18 175 U/L F 120.0-246.0 Albumin [Mass/volume] in Serum or Plasma by Bromocresol green (BCG) dye binding method 2024-02-08 14:37:18 3.7 g/dL F 3.4-4.8 Bicarbonate [Moles/volume] in Serum or Plasma 2024-02-08 14:37:18 24 mEq/L F 20.0-31.0 Glucose [Mass/volume] in Serum or Plasma 2024-02-08 14:37:18 88 mg/dL F 70.0-99.0 Lactate dehydrogenase [Enzymatic activity/volume] in Serum or Plasma 2024-02-08 14:37:18 175 U/L F 120.0-246.0 Protein [Mass/volume] in Serum or Plasma 2024-02-08 14:37:18 6.4 g/dL F 5.7-8.2 Albumin [Mass/volume] in Serum or Plasma by Bromocresol green (BCG) dye binding method 2024-02-08 14:37:18 3.7 g/dL F 3.4-4.8 Protein [Mass/volume] in Serum or Plasma 2024-02-08 14:37:18 6.4 g/dL F 5.7-8.2 Bicarbonate [Moles/volume] in Serum or Plasma 2024-02-08 14:37:18 24 mEq/L F 20.0-31.0 Glucose [Mass/volume] in Serum or Plasma 2024-02-08 14:37:18 88 mg/dL F 70.0-99.0 Lactate dehydrogenase [Enzymatic activity/volume] in Serum or Plasma 2024-02-08 14:37:18 175 U/L F 120.0-246.0 Potassium [Moles/volume] in Serum or Plasma 2024-01-12 07:00:36 3.9 mEq/L F 3.5-5.5 Potassium [Moles/volume] in Serum or Plasma 2024-01-12 07:00:36 3.9 mEq/L F 3.5-5.5 Potassium [Moles/volume] in Serum or Plasma 2024-01-12 07:00:36 3.9 mEq/L F 3.5-5.5 GLOBULIN 2024-01-11 14:44:34 3.1 g/dL F 0.9-5.0 A/G RATIO 2024-01-11 14:44:34 1.3 Calc F 1.0-2.5 GLOBULIN 2024-01-11 14:44:34 3.1 g/dL F 0.9-5.0 A/G RATIO 2024-01-11 14:44:34 1.3 Calc F 1.0-2.5 A/G RATIO 2024-01-11 14:44:34 1.3 Calc F 1.0-2.5 GLOBULIN 2024-01-11 14:44:34 3.1 g/dL F 0.9-5.0 Albumin [Mass/volume] in Serum or Plasma by Bromocresol green (BCG) dye binding method 2024-01-11 14:43:13 4 g/dL F 3.4-4.8 Lactate dehydrogenase [Enzymatic activity/volume] in Serum or Plasma 2024-01-11 14:43:13 148 U/L F 120.0-246.0 Protein [Mass/volume] in Serum or Plasma 2024-01-11 14:43:13 7.1 g/dL F 5.7-8.2 Bicarbonate [Moles/volume] in Serum or Plasma 2024-01-11 14:43:13 23 mEq/L F 20.0-31.0 Glucose [Mass/volume] in Serum or Plasma 2024-01-11 14:43:13 83 mg/dL F 70.0-99.0 Protein [Mass/volume] in Serum or Plasma 2024-01-11 14:43:13 7.1 g/dL F 5.7-8.2 Albumin [Mass/volume] in Serum or Plasma by Bromocresol green (BCG) dye binding method 2024-01-11 14:43:13 4 g/dL F 3.4-4.8 Bicarbonate [Moles/volume] in Serum or Plasma 2024-01-11 14:43:13 23 mEq/L F 20.0-31.0 Glucose [Mass/volume] in Serum or Plasma 2024-01-11 14:43:13 83 mg/dL F 70.0-99.0 Lactate dehydrogenase [Enzymatic activity/volume] in Serum or Plasma 2024-01-11 14:43:13 148 U/L F 120.0-246.0 Bicarbonate [Moles/volume] in Serum or Plasma 2024-01-11 14:43:13 23 mEq/L F 20.0-31.0 Albumin [Mass/volume] in Serum or Plasma by Bromocresol green (BCG) dye binding method 2024-01-11 14:43:13 4 g/dL F 3.4-4.8 Glucose [Mass/volume] in Serum or Plasma 2024-01-11 14:43:13 83 mg/dL F 70.0-99.0 Lactate dehydrogenase [Enzymatic activity/volume] in Serum or Plasma 2024-01-11 14:43:13 148 U/L F 120.0-246.0 Protein [Mass/volume] in Serum or Plasma 2024-01-11 14:43:13 7.1 g/dL F 5.7-8.2 Potassium [Moles/volume] in Serum or Plasma 2023-12-14 21:51:38 4 mEq/L F 3.5-5.5 Potassium [Moles/volume] in Serum or Plasma 2023-12-14 21:51:38 4 mEq/L F 3.5-5.5 GLOBULIN 2023-12-14 13:02:58 3 g/dL F 0.9-5.0 A/G RATIO 2023-12-14 13:02:58 1.4 Calc F 1.0-2.5 GLOBULIN 2023-12-14 13:02:58 3 g/dL F 0.9-5.0 A/G RATIO 2023-12-14 13:02:58 1.4 Calc F 1.0-2.5 Albumin [Mass/volume] in Serum or Plasma by Bromocresol green (BCG) dye binding method 2023-12-14 13:02:19 4.1 g/dL F 3.4-4.8 Protein [Mass/volume] in Serum or Plasma 2023-12-14 13:02:19 7.1 g/dL F 5.7-8.2 Bicarbonate [Moles/volume] in Serum or Plasma 2023-12-14 13:02:19 24 mEq/L F 20.0-31.0 Glucose [Mass/volume] in Serum or Plasma 2023-12-14 13:02:19 137 mg/dL F 70.0-99.0 Lactate dehydrogenase [Enzymatic activity/volume] in Serum or Plasma 2023-12-14 13:02:19 138 U/L F 120.0-246.0 Albumin [Mass/volume] in Serum or Plasma by Bromocresol green (BCG) dye binding method 2023-12-14 13:02:19 4.1 g/dL F 3.4-4.8 Protein [Mass/volume] in Serum or Plasma 2023-12-14 13:02:19 7.1 g/dL F 5.7-8.2 Bicarbonate [Moles/volume] in Serum or Plasma 2023-12-14 13:02:19 24 mEq/L F 20.0-31.0 Glucose [Mass/volume] in Serum or Plasma 2023-12-14 13:02:19 137 mg/dL F 70.0-99.0 Lactate dehydrogenase [Enzymatic activity/volume] in Serum or Plasma 2023-12-14 13:02:19 138 U/L F 120.0-246.0 Potassium [Moles/volume] in Serum or Plasma 2023-11-09 17:22:14 3.8 mEq/L F 3.5-5.5 Potassium [Moles/volume] in Serum or Plasma 2023-11-09 17:22:14 3.8 mEq/L F 3.5-5.5 A/G RATIO 2023-11-09 14:12:48 1.5 Calc F 1.0-2.5 GLOBULIN 2023-11-09 14:12:48 2.8 g/dL F 0.9-5.0 GLOBULIN 2023-11-09 14:12:48 2.8 g/dL F 0.9-5.0 A/G RATIO 2023-11-09 14:12:48 1.5 Calc F 1.0-2.5 Bicarbonate [Moles/volume] in Serum or Plasma 2023-11-09 14:12:14 26 mEq/L F 20.0-31.0 Albumin [Mass/volume] in Serum or Plasma by Bromocresol green (BCG) dye binding method 2023-11-09 14:12:14 4.1 g/dL F 3.4-4.8 Glucose [Mass/volume] in Serum or Plasma 2023-11-09 14:12:14 128 mg/dL F 70.0-99.0 Lactate dehydrogenase [Enzymatic activity/volume] in Serum or Plasma 2023-11-09 14:12:14 167 U/L F 120.0-246.0 Protein [Mass/volume] in Serum or Plasma 2023-11-09 14:12:14 6.9 g/dL F 5.7-8.2 Bicarbonate [Moles/volume] in Serum or Plasma 2023-11-09 14:12:14 26 mEq/L F 20.0-31.0 Lactate dehydrogenase [Enzymatic activity/volume] in Serum or Plasma 2023-11-09 14:12:14 167 U/L F 120.0-246.0 Albumin [Mass/volume] in Serum or Plasma by Bromocresol green (BCG) dye binding method 2023-11-09 14:12:14 4.1 g/dL F 3.4-4.8 Protein [Mass/volume] in Serum or Plasma 2023-11-09 14:12:14 6.9 g/dL F 5.7-8.2 Glucose [Mass/volume] in Serum or Plasma 2023-11-09 14:12:14 128 mg/dL F 70.0-99.0 A/G RATIO 2023-01-05 16:16:43 1.5 Calc F 1.0-2.5 GLOBULIN 2023-01-05 16:16:43 2.8 g/dL F 0.9-5.0 GLOBULIN 2023-01-05 16:16:43 2.8 g/dL F 0.9-5.0 A/G RATIO 2023-01-05 16:16:43 1.5 Calc F 1.0-2.5 Protein [Mass/volume] in Serum or Plasma 2023-01-05 16:16:31 7.1 g/dL F 5.7-8.2 Potassium [Moles/volume] in Serum or Plasma 2023-01-05 16:16:31 3.9 mEq/L F 3.5-5.5 Bicarbonate [Moles/volume] in Serum or Plasma 2023-01-05 16:16:31 24 mEq/L F 20.0-31.0 Lactate dehydrogenase [Enzymatic activity/volume] in Serum or Plasma 2023-01-05 16:16:31 193 U/L F 120.0-246.0 Albumin [Mass/volume] in Serum or Plasma by Bromocresol green (BCG) dye binding method 2023-01-05 16:16:31 4.3 g/dL F 3.4-4.8 Glucose [Mass/volume] in Serum or Plasma 2023-01-05 16:16:31 102 mg/dL F 70.0-99.0 Albumin [Mass/volume] in Serum or Plasma by Bromocresol green (BCG) dye binding method 2023-01-05 16:16:31 4.3 g/dL F 3.4-4.8 Potassium [Moles/volume] in Serum or Plasma 2023-01-05 16:16:31 3.9 mEq/L F 3.5-5.5 Protein [Mass/volume] in Serum or Plasma 2023-01-05 16:16:31 7.1 g/dL F 5.7-8.2 Bicarbonate [Moles/volume] in Serum or Plasma 2023-01-05 16:16:31 24 mEq/L F 20.0-31.0 Glucose [Mass/volume] in Serum or Plasma 2023-01-05 16:16:31 102 mg/dL F 70.0-99.0 Lactate dehydrogenase [Enzymatic activity/volume] in Serum or Plasma 2023-01-05 16:16:31 193 U/L F 120.0-246.0 A/G RATIO 2022-06-09 19:07:47 1.4 Calc F 1.0-2.5 GLOBULIN 2022-06-09 19:07:47 2.9 g/dL F 0.9-5.0 Glucose [Mass/volume] in Serum or Plasma 2022-06-09 19:07:21 101 mg/dL F 70.0-99.0 Potassium [Moles/volume] in Serum or Plasma 2022-06-09 19:07:21 3.9 mEq/L F 3.5-5.5 Albumin [Mass/volume] in Serum or Plasma by Bromocresol green (BCG) dye binding method 2022-06-09 19:07:21 4.2 g/dL F 3.4-4.8 Protein [Mass/volume] in Serum or Plasma 2022-06-09 19:07:21 7.1 g/dL F 5.7-8.2 Bicarbonate [Moles/volume] in Serum or Plasma 2022-06-09 19:07:21 27 mEq/L F 20.0-31.0 Lactate dehydrogenase [Enzymatic activity/volume] in Serum or Plasma 2022-06-09 19:07:21 149 U/L F 120.0-246.0 GLOBULIN 2022-05-20 16:08:47 3.1 g/dL F 0.9-5.0 A/G RATIO 2022-05-20 16:08:47 1.4 Calc F 1.0-2.5 Potassium [Moles/volume] in Serum or Plasma 2022-05-20 16:08:10 4.1 mEq/L F 3.5-5.5 Protein [Mass/volume] in Serum or Plasma 2022-05-20 16:08:10 7.3 g/dL F 5.7-8.2 Albumin [Mass/volume] in Serum or Plasma by Bromocresol green (BCG) dye binding method 2022-05-20 16:08:10 4.2 g/dL F 3.4-4.8 Bicarbonate [Moles/volume] in Serum or Plasma 2022-05-20 16:08:10 28 mEq/L F 20.0-31.0 Glucose [Mass/volume] in Serum or Plasma 2022-05-20 16:08:10 127 mg/dL F 70.0-99.0 Lactate dehydrogenase [Enzymatic activity/volume] in Serum or Plasma 2022-05-20 16:08:10 168 U/L F 120.0-246.0 GLOBULIN 2022-04-14 15:32:54 2.7 g/dL F 0.9-5.0 A/G RATIO 2022-04-14 15:32:54 1.6 Calc F 1.0-2.5 Protein [Mass/volume] in Serum or Plasma 2022-04-14 15:31:57 6.9 g/dL F 5.7-8.2 Glucose [Mass/volume] in Serum or Plasma 2022-04-14 15:31:57 108 mg/dL F 70.0-99.0 Lactate dehydrogenase [Enzymatic activity/volume] in Serum or Plasma 2022-04-14 15:31:57 169 U/L F 120.0-246.0 Albumin [Mass/volume] in Serum or Plasma by Bromocresol green (BCG) dye binding method 2022-04-14 15:31:57 4.2 g/dL F 3.4-4.8 Potassium [Moles/volume] in Serum or Plasma 2022-04-14 15:31:57 4.5 mEq/L F 3.5-5.5 Bicarbonate [Moles/volume] in Serum or Plasma 2022-04-14 15:31:57 28 mEq/L F 20.0-31.0 GLOBULIN 2022-03-10 16:49:58 2.6 g/dL F 0.9-5.0 A/G RATIO 2022-03-10 16:49:58 1.6 Calc F 1.0-2.5 Protein [Mass/volume] in Serum or Plasma 2022-03-10 16:49:48 6.8 g/dL F 5.7-8.2 Albumin [Mass/volume] in Serum or Plasma by Bromocresol green (BCG) dye binding method 2022-03-10 16:49:48 4.2 g/dL F 3.4-4.8 Potassium [Moles/volume] in Serum or Plasma 2022-03-10 16:49:48 4.8 mEq/L F 3.5-5.5 Bicarbonate [Moles/volume] in Serum or Plasma 2022-03-10 16:49:48 27 mEq/L F 20.0-31.0 Glucose [Mass/volume] in Serum or Plasma 2022-03-10 16:49:48 114 mg/dL F 70.0-99.0 Lactate dehydrogenase [Enzymatic activity/volume] in Serum or Plasma 2022-03-10 16:49:48 178 U/L F 120.0-246.0 GLOBULIN 2022-02-10 19:07:23 2.4 g/dL F 0.9-5.0 A/G RATIO 2022-02-10 19:07:23 1.8 Calc F 1.0-2.5 Protein [Mass/volume] in Serum or Plasma 2022-02-10 19:06:42 6.7 g/dL F 5.7-8.2 Bicarbonate [Moles/volume] in Serum or Plasma 2022-02-10 19:06:42 26 mEq/L F 20.0-31.0 Albumin [Mass/volume] in Serum or Plasma by Bromocresol green (BCG) dye binding method 2022-02-10 19:06:40 4.3 g/dL F 3.4-4.8 Lactate dehydrogenase [Enzymatic activity/volume] in Serum or Plasma 2022-02-10 19:06:40 174 U/L F 120.0-246.0 Potassium [Moles/volume] in Serum or Plasma 2022-02-10 19:06:40 4.5 mEq/L F 3.5-5.5 Glucose [Mass/volume] in Serum or Plasma 2022-02-10 19:06:40 125 mg/dL F 70.0-99.0 Encounters No encounter information to report Immunizations Ordered Immunization Name Filled Immunization Name Date Status Comments Refusal Reason Influenza, high-dose, quadrivalent, PF 2023-11-22 13:30:00 TST-PPD intradermal 2023-11-13 13:45:00 TST-PPD intradermal 2022-09-28 13:30:00 TB Skin Test 2021-10-13 05:00:00 Covid-19 Vaccination 2021-01-08 08:00:00 Covid-19 Vaccination 2020-04-23 08:00:00 Covid-19 Vaccination 2020-03-23 08:00:00 Plan of Treatment Planned Activity Provider Planned Date Details Commen ts Diagnostic Test Pending Jc Moreau 2022-11-20 05:00:00 Alanine aminotransferase [Enzymatic activity/volume] in Serum or Plasma [code = 1742-6] Diagnostic Test Pending Jc Moreau 2022-01-30 06:00:00 Sodium [Moles/volume] in Serum or Plasma [code = 2951-2] Diagnostic Test Pending Jc Moreau 2022-01-30 06:00:00 Glucose [Mass/volume] in Serum or Plasma [code = 2345-7] Diagnostic Test Pending [facility] 2022-01-30 06:00:00 Albumin [Mass/volume] in Serum or Plasma by Bromocresol green (BCG) dye binding method [code = 68029-7] Diagnostic Test Pending [facility] 2022-02-20 06:00:00 [email or web address] [Mass/volume] in Serum or Plasma [code = 2731-8] Diagnostic Test Pending [facility] 2024-01-27 07:37:59 Ferritin [Mass/volume] in Serum or Plasma [code = 2276-4] Diagnostic Test Pending [facility] 2024-03-23 07:23:33 Ferritin [Mass/volume] in Serum or Plasma [code = 2276-4] Diagnostic Test Pending [facility] 2023-06-04 05:00:00 Hemoglobin [Mass/volume] in Blood [code = 718-7] Diagnostic Test Pending [facility] 2023-09-21 05:00:00 Ferritin [Mass/volume] in Serum or Plasma [code = 2276-4] Diagnostic Test Pending [facility] 2022-02-20 06:00:00 Aluminum [Mass/volume] in Serum or Plasma [code = 5574-9] Diagnostic Test Pending [facility] 2022-01-30 06:00:00 Creatinine [Mass/volume] in Serum or Plasma [code = 2160-0] Diagnostic Test Pending [facility] 2022-12-13 18:02:53 Magnesium [Mass/volume] in Serum or Plasma [code = 93226-0] Diagnostic Test Pending [facility] 2024-03-18 20:11:09 In-Center Hemodialysis Treatment [code = XAM054] Diagnostic Test Pending [facility] 2024-02-02 11:24:32 In-Center Hemodialysis Treatment [code = KKI383] Diagnostic Test Pending [facility] 2024-01-12 16:07:13 In-Center Hemodialysis Treatment [code = YGA504] Diet Order [facility] January 24, 2022 Diet Calorie 30 kcal/kg Fluid Value 1000 mL/d Phosphorus Value 860 mg/d Potassium Value 2000 mg/d Protein Value 1.2 gm/kg Sodium Value 2000 mg/d Calculated Weight 72 kg
--- OUTSIDE RECORDS SUMMARY | 2024-03-25 09:28 | XMS_ITS | Patient Health Summary ---
Author Organization [facility] Address [address] [place] [address] Care Team Providers Care Air Traffic Control Specialist Name Role Phone Farrukh Solorzano MD Unavailable [phone] Keya Reina MD Unavailable Unavailable Osmar Zambrano MD Unavailable Francisco Tobin MD Unavailable [phone] Jc Moreau MD Unavailable [phone] Ryland Alves MD Unavailable Lorene Ly MD Unavailable Care, [facility] Unavailable Carrol Pitts MD, Joseph Theodore Unavailable Carrol Pitts MD, Federico Howe Primary Care Provider Octavia Parry GAS SHOVEL OPERATOR-COMPUTER INFORMATION SYSTEMS PROFESSOR Unavailable [phone] Note from [facility],non-owned Affiliates and Associated Physician Practices is amultiple site organization consisting of ambulatory clinics and hospital sitesin [place], [place], [place] and [place]. This disclosure is being madepursuant to the Care Everywhere program and may not contain all information available regarding this patient. Last updated 17.[facility] Allergies * Valsartan(Other) -Medium Criticality * Lisinopril(Unknown) -Medium Criticality * Propoxyphene(Dizziness) -Medium Criticality * Darvon(Dizziness),Inactive Medications * Be aware that medications may not be up to date on this document. Alwaysverify current medications with the patient. * montelukast (SINGULAIR) 10 MG tablet Take 1 (one) tablet by mouth at bedtime Reported on 04/22/2016 * cinacalcet (SENSIPAR) 60 MG tablet Take 1 (one) tablet by mouth every Monday, Monday & Monday * lanthanum (FOSRENOL) 1000 MG chew tablet(Started 06/08/2020) CHEW AND SWALLOW 1 TABLET THREE TIMES DAILY WITH MEALS AND 1 TABLET WITH SNACKS * calcium acetate (PHOSLO) 667 MG capsule(Started 02/07/2021) Take 1 (one) capsule by mouth 2 times daily, before breakfast and supper * acetaminophen (Tylenol) 500 MG tablet Take 1 (one) tablet by mouth every 4 hours as needed for Fever or Pain Maximum allowable Acetaminophen amount = 4 Grams (4000 mg) / 24 hours. * Flovent HFA 220 MCG/ACT inhaler(Started 05/19/2022) Inhale 2 (two) puffs by mouth 2 times daily * VITAMIN D PO Take 3,000 Units by mouth once daily * latanoprost (Xalatan) 0.005 % ophthalmic solution(Started 05/22/2023) Instill 1 (one) drop into both eyes at bedtime 11 refills by 05/21/2024 * levalbuterol (Xopenex) 45 MCG/ACT inhaler(Started 06/17/2023) Inhale 2 (two) puffs by mouth 2 times daily as needed Using prn * fluticasone propionate (Flonase) 50 MCG/ACT nasal spray(Started 07/19/2023) Norman 2 (two) sprays into each nostril once daily Make sure to shake bottle first 3 refills by 07/18/2024 * B Fhulppr-Y-Tktdg Acid (Dialyvite 800) 0.8 MG(Started 09/25/2023) Take 1 tablet by mouth once daily 4 refills by 09/24/2024 * artificial tears ophthalmic solution(Started 10/18/2023) Instill 1 (one) drop into both eyes 3 times daily as needed * digoxin (Lanoxin) 0.125 MG tablet(Started 10/22/2023) Take 1 (one) tablet by mouth every & Monday Takes on * tiZANidine (Zanaflex) 4 MG tablet(Started 12/08/2023) Take 1 (one) tablet by mouth every 8 hours as needed for Muscle Spasms 1 refill by 12/07/2024 * midodrine (Proamatine) 5 MG tablet(Started 12/22/2023) Take 3 (three) tablets by mouth 3 times daily with meals 3 refills by 12/21/2024 * atorvastatin (Lipitor) 40 MG tablet(Started 12/22/2023) Take 1 (one) tablet by mouth at bedtime 3 refills by 12/21/2024 * FLUoxetine (PROzac) 20 MG capsule(Started 12/22/2023) Take 1 (one) capsule by mouth once daily 3 refills by 12/21/2024 * gabapentin (Neurontin) 100 MG capsule(Started 12/22/2023) Take 1 (one) capsule by mouth 2 times daily 3 refills by 12/21/2024 * omeprazole (PriLOSEC) 20 MG capsule(Started 12/22/2023) Take 1 (one) capsule by mouth 2 times daily 3 refills by 12/21/2024 * aspirin (Aspirin) 81 MG chew tablet(Started 02/08/2024) Take 1 (one) tablet by mouth once daily * clopidogrel (plaVIX) 75 MG tablet(Started 02/08/2024) Take 1 (one) tablet by mouth once daily * midodrine (Proamatine) 10 MG tablet Take 1 (one) tablet by mouth 3 times daily before meals Ended Medications* oseltamivir (Tamiflu) 75 MG capsule(Started 03/17/2024) (Discontinued) Take 1 (one) capsule by mouth 2 times daily for 5 days * oseltamivir (Tamiflu) 30 MG capsule(Started 03/18/2024)(Discontinued) Take 1 (one) capsule by mouth every Monday, Monday & Monday for 5 days Reasons: Influenza B * azithromycin (Zithromax) 250 MG tablet(Started 03/17/2024)(Discontinued) Take 1 (one) tablet by mouth once daily for 4 days * oseltamivir (Tamiflu) 30 MG capsule(Started 03/18/2024)() Take 1 (one) capsule by mouth every Monday, Monday & Monday for 5 days Reasons: Influenza A Virus Infection Active Problems Problem Noted Date Diagnosed Date Aortic root dilatation 03/22/2024 Paroxysmal atrial fibrillation 02/01/2024 CVA (cerebral vascular accident) 12/22/2023 Cord compression 10/05/2023 Osteoporosis 12/29/2022 12/29/2022 Cervical stenosis of spine 12/29/2022 Pre-transplant evaluation for kidney transplant 12/19/2022 Moderate mitral regurgitation 11/10/2021 Chronic systolic heart failure 10/20/2020 Tortuous aorta 10/20/2020 Chronic hypotension 10/19/2020 Anxiety 05/11/2020 Gastroesophageal reflux disease without esophagi tis 10/10/2019 Hx of adenomatous colonic polyps 10/10/2019 End stage renal disease on dialysis 08/22/2018 HFrEF (heart failure with reduced ejection fract ion) 12/19/2017 Renal osteodystrophy 04/24/2017 Restrictive lung disease 08/15/2016 Hyperparathyroidism, secondary renal 07/23/2015 Chronic atrial fibrillation 04/26/2015 NICM (nonischemic cardiomyopathy) 10/18/2013 History of deep vein thrombosis 03/20/2013 Atherosclerotic heart diseas e of [place] coronary artery without angina pectoris 08/09/2012 LENORA (obstructive sleep apnea) 02/20/2002 Class 1 obesity with serious comorbidity in adul t Coronary artery disease invo lving [place] coronary artery of [place] heart HLD (hyperlipidemia) COPD (chronic obstructive pulmonary disease) Anemia in chronic kidney disease, on chronic jorge lysis Rheumatoid factor positive Spinal stenosis of lumbar re gion with neurogenic claudication Resolved Problems Problem Noted Date Diagnosed Date Resolved Date Constipation 11/09/2023 12/07/2023 Constipation 11/09/2023 12/07/2023 Acute postoperative respiratory insufficiency 10/20/19 24 12/22/2023 Pre-op exam 10/05/2023 12/22/2023 T2DM (type 2 diabetes mellitus) 10/05/2023 12/22/2023 Acute right-sided weakness 10/05/2023 1 02/20/2023 Acute hypoxic respiratory failure 04/11/2023 06/21/2023 Myelopathy 04/10/2023 12/22/2023 History of diabetes mellitus 03/20/2023 01/10/2024 Diverticulitis 12/29/2022 12/29/2022 Abdominal pain, generalized 12/21/2022 12/29/2022 Dyspnea on exertion 12/21/2022 06/21/19 ESRD on dialysis 12/21/2022 12/29/2022 Chest pain, unspecified type 12/21/2022 12/29/2022 Obesity (BMI 30-39.9) 12/08/20222022 Rheumatoid arthritis 12/08/2022 023 Metabolic syndrome 12/08/2022 Other chronic pain 12/08/2022 3 Osteoporosis 11/10/2021 09/14/2022 Paraparesis 11/10/2021 12/22/2023 PAF (paroxysmal atrial fibrillation) 11/08/2021 11/10/2021 Diabetic polyneuropathy asso ciated with type 2 diabetes mellitus 11/08/2021 11/10/2021 Positive D dimer 11/01/2020 11/03/2020 Bilateral lower extremity pain 11/01/2020 11/10/2020 Dizziness and giddiness 10/19/2020 092 02/2020 Chronic health problem 06/26/202011/10 Abnormal findings on diagnos tic imaging of liver 06/09/2020 11/10/2020 Low back pain 06/08/2020 12/29/2022 Shortness of breath 06/06/2020 11/11/19 Acute respiratory failure 06/05/2020 Sigmoid diverticulitis 05/08/202011/10 Hx of diverticulitis of colon 10/10/2019 05/11/2020 Dyssynergic constipation 10/10/2019 Peripheral vascular disease, unspecified 05/01/2019 05/11/2020 Costochondral chest pain 02/25/2019 Fever 08/24/2018 08/26/2018 Large bowel perforation 08/24/201808/20 Sepsis 08/22/2018 09/03/2018 Abdominal pain 08/22/2018 09/03/2018 Hemorrhoids 08/22/2018 05/11/2020 Diverticulitis of colon 08/01/201808/20 LLQ pain 08/01/2018 08/01/2018 Hypothyroidism 08/01/2018 05/10/2021 Sensorineural hearing loss ( SNHL) of both ears 07/12/2018 08/01/2018 Chronic kidney disease-re examiner al and bone disorder 06/12/2018 05/11/2020 Typical atrial flutter 04/15/201805/11 Pre-transplant evaluation fo r chronic kidney disease 09/26/2017 05/11/2020 Chronic constipation 07/13/2017 021 Pre-transplant evaluation fo r kidney transplant 06/14/2017 12/19/2022 Palpitations 04/27/2017 08/01/2018 Hemodialysis-associated hypotension 04/27/2017 11/10/2020 Calciphylaxis 04/27/2017 05/01/2019 Other disorder of calcium metabolism 04/24/2017 08/01/2018 Rotator cuff tear, right 02/09/2017 PAF (paroxysmal atrial fibrillation) 01/06/2017 11/10/2020 Excessive anticoagulation 08/15/2016 End stage renal disease [...] (supraventricular tachycardia) 10/18/2013 05/10/2021 Chronic anticoagulation 10/18/201310/22 Personal history of other drug therapy 10/18/2013 08/25/2021 ESRD (end stage renal disease) 06/23/2009 09/03/2018 Chronic combined systolic an d diastolic congestive heart failure 08/20/1996 05/11/2020 History of ulcer disease Asthma 05/11/2020 Essential hypertension 08/01 History of diabetes mellitus 06/21/2023 Pure hypercholesterolemia History of atrial fibrillation 06/12/2018 Postoperative hypothyroidism 06/06/2020 Immunizations * BCG FDC, HISTORIC VACCINE(Given 10/16/2019, 10/01/2018, 10/11/2017, 10/12/2016, 09/30/2015, 10/08/2014, 10/07/2013, 11/10/2012, 05/23/2012) * COVID MODERNA 12+ yr 50mcg/0.5mL(Given 12/22/2023) * COVID PFIZER BIVALENT 12Y+ 30mcg/0.3ML(Given 04/18/2022) * Covid Moderna primary monovalent 12+ yr 0.5mL(Given 01/08/2021, 04/23/2020, 03/23/2020) * Covid Pfizer primary monovalent 12+ yr 0.3mL Purple cap(Given 01/08/2021, 04/23/2020, 04/02/2020, 03/31/2020) * FLU VACCINE TRI IIV3 SPLIT PF IM (FLUVIRIN)(Given 11/19/2015) * INFLUENZA VACCINE(Given 11/23/2022, 11/21/2022, 11/08/2019, 12/24/2018, 11/15/2017, 11/09/2016, 11/19/2015, 11/19/2014, 10/30/2013, 11/10/2012, 10/28/2011) * INFLUENZA VACCINE, ADJUVANTED, TRIV. (FLUAD TRIVALENT; 65Y+) (AIIV3)(Given 12/03/2021, 12/04/2020, 11/08/2019, 12/24/2018, 11/15/2017, 11/09/2016, 11/19/2015, 11/19/2014, 10/30/2013, 11/10/2012, 10/28/2011) * PNEUMOCOCCAL PCV VACCINE(Given 09/16/2019, 11/26/2014) * PNEUMOCOCCAL PPSV23(Given 05/10/2021, 09/28/2009) * Pneumococcal Pcv13 Conj(Given 07/15/2019) * TDAP (7yrs+)(Given 12/11/2018) * Zoster Hzv Vacc Recombinant Inj Im(Given 01/07/2020, 12/11/2018) Social History Tobacco Use Types Packs/Day Years [...] Recorded Patient Health Questionnaire-2 Score 0 03/11/2024 [facility] - Occupational Stress Questionnaire Answer Date Recorded [...] money to buy more. Never true 02/10/20 24 Within the past 12 months, t [...] place to sleep or slept in a usp (including now)? Patient declined 10/05/2023 Housing Stability [...] any time in the past 12 m [facility], were you homeless or living in a usp (including now)? No 02/10/2024 Education Answer Date Recorded What is the highest level of school you have completed or the highest degree you have received? Doctorate 09/25/2023 Sex and Gender Information Value Date Recorded Sex Assigned at Female 02/14/2020 1:06 PM HEARING AID FITTER Gender Identity Female 02/14/2020 1:05 PM HEARING AID FITTER Sexual Orientation Straight 02/14/2020 1: 05 PM HEARING AID FITTER Last Filed Vital Signs Vital Sign Reading Time Taken Comments Blood Pressure 135/79 03/22/2024 2:00 PM HEARING AID FITTER Pulse 78 03/22/2024 2:00 PM HEARING AID FITTER Temperature 36.2 ??C (97.2 ??F) 03/22/2024 1:43 PM CS T Respiratory Rate 15 03/22/2024 2:00 PM HEARING AID FITTER Oxygen Saturation 98% 03/22/2024 2:00 PM HEARING AID FITTER Inhaled Oxygen Concentration 28% 02/10/2024 5 :51 AM HEARING AID FITTER Weight 73.5 kg (162 lb) 03/22/2024 12:55 PM HEARING AID FITTER Height 158.8 cm (5' 2.5 ) 03/22/2024 12:55 PM CS T Body Mass Index 29.16 03/22/2024 12:55 PM HEARING AID FITTER Medical Devices Implanted Type Area Soap Tender Device Identifier Shelf Expiration Date Model / Serial / Lot Lens Iol 0 D +18.5 Tulio Mod L Bcnvx - [id number] Implanted:Qty : 1 on 11/05/2020 by Dylan Gil MD at [facility] Right: [employer] 12/03/2024 SN60WF.185 / [id number] / Lens Iol 0 D +18.5 Tulio Mod L Bcnvx - [id number] Implanted:Qty : 1 on 11/19/2020 by Dylan Gil MD at [facility] Left: [employer] 03/22/2022 SN60WF.185 / [id number] / Eit Cif Cage, H 7 Mm, 8 Degree, S Implanted:Qty : 1 on 04/10/2023 by Ryland Fuentes MD at [facility] N/A: Spine Cervical [id number] / / [id number] Eit Cif Cage, H 7mm, 8 Degree, S Implanted:Qty : 1 on 04/10/2023 by Ryland Fuentes MD at [facility] N/A: Spine Cervical [id number] / / [id number] Graft Bone Ac Cnxs Dbm 2.5ml Ptty Rtu - [id number] Implanted:Qty : 1 on 04/10/2023 by Ryland Fuentes MD at [facility] N/A: Spine Cervical [employer] 11/18/20233000-025 / [id number] / Eit Cif Cage, H 6mm, 8 Degree, S Implanted:Qty : 1 on 04/10/2023 by Ryland Fuentes MD at [facility] N/A: Spine Cervical [id number] / / [id number] Description:[place]- EI T Plate Three Lev 54mm Implanted:Qty : 1 on 04/10/2023 by Ryland Fuentes MD at [facility] N/A: Spine Cervical Depuy Spine [id number] / / Screw 4mm 14mm Spne Crv Ant Laura Slf-Tap Implanted:Qty : 4 on 04/10/2023 by Ryland Fuentes MD at [facility] N/A: Spine Cervical Depuy Spine [id number] / / Scrw Variable Selftap 4.0mm X 16.0mm Implanted:Qty : 3 on 04/10/2023 by Ryland Fuentes MD at [facility] N/A: Spine Cervical Depuy Spine [id number] / / Screw 4.5mm 16mm Ovsz Spne Crv Ant Laura Implanted:Qty : 1 on 04/10/2023 by Ryland Fuentes MD at [facility] N/A: Spine Cervical Depuy Spine [id number] / / Graft Bone Infs Bvn Clgn Rhbmp-2 Sm 2.8 Implanted:Qty : 1 on 10/05/2023 by Ryland Fuentes MD at [facility] [employer] 10/21/2024 [id number] / / [id number] Graft Bone Pliafx Prm Bone Fbr 10cc Implanted:Qty : 1 on 10/05/2023 by Rylnad Fuentes MD at [facility] N/A: Spine Cervical Lif[employer] [id number] / / Screw 3.5 X 14 Implanted:Qty : 2 on 10/05/2023 by Ryland Fuentes MD at [facility] N/A: Spine Cervical [id number] / [id number] / Screw 3.5 X 12 Implanted:Qty : 6 on 10/05/2023 by Ryland Fuentes MD at [facility] N/A: Spine Cervical [id number] / [id number] / Screw 3.5 X 20 Implanted:Qty : 2 on 10/05/2023 by Ryland Fuentes MD at [facility] N/A: Spine Cervical [id number] / [id number] / Caps Implanted:Qty : 10 on 10/05/2023 by Ryland Fuentes MD at [facility] N/A: Spine Cervical [id number] / [id number] / Rods 70mm Implanted:Qty : 2 on 10/05/2023 by Ryland Fuentes MD at [facility] N/A: Spine Cervical [id number] / [id number] / Dev Clsr 31mm Watchman Flx Pro Lt Atr - [id number] Implanted:Qty : 1 on 02/08/2024 by Lamberto Potts MD at [facility] [employer] [id number] 10/01/2026 [id number] / [id number] / [id number] Explanted Type Area Soap Tender Device Identifier Shelf Expiration Date Model / Serial / Lot Scrw Variable Selftap 4.0mm X 16.0mm Explanted:Qty: 1 on 04/10/2023 by Ryland Fuentes MD at [facility] N/A: Spine Cervical Depuy Spine [id number] / / Procedures * ECHO JAE COMPLETE W 3D(Performed 03/22/2024) Performed for Paroxysmal atrial fibrillation (HCC) * CCL EDGER TAILER DIAGNOSTIC JAE(Performed 03/22/2024) * CARDIAC EKG ORDER(Performed 03/19/2024) * XR CHEST 2VW(Performed 03/16/2024) Performed for Acute cough * TROPONIN-I HIGH SENSITIVE REFLEX 1HOUR(Performed 03/16/2024) * B-TYPE NATRIURETIC PEPTIDE(Performed 03/16/2024) * TROPONIN-I HIGH SENSITIVE BASELINE + 1HR(Performed 03/16/2024) * PHOSPHORUS BLOOD(Performed 03/16/2024) * COMPREHENSIVE METABOLIC PANEL(Performed 03/16/2024) * CBC W AUTO DIFFERENTIAL(Performed 03/16/2024) * SARS-COV-2 (COVID-19) FLU A/B RSV PCR RAPID(Performed 03/16/2024) * EKG 12-LEAD(Performed 03/16/2024) Performed for Shortness of breath * CBC W AUTO DIFFERENTIAL(Performed 03/15/2024) Performed for Presence of Watchman left atrial appendage closure device, Atrial fibrillation, unspecified type (HCC) * BASIC METABOLIC PANEL (CALCIUM TOTAL)(Performed 03/15/2024) Performed for Presence of Watchman left atrial appendage closure device, Atrial fibrillation, unspecified type (HCC) * XR CERVICAL SPINE 2 OR 3VW(Performed 03/12/2024) Performed for S/P cervical spinal fusion * APHERESIS/TRANSFUSION ORDER(Performed 02/19/2024) * PREPARE RBC LEUKOREDUCED UNIT(Performed 02/11/2024) * HEMOGLOBIN A1C(Performed 02/10/2024) * EKG 12-LEAD(Performed 02/09/2024) Performed for Paroxysmal atrial fibrillation (HCC) * GLUCOSE - POINT OF CARE(Performed 02/09/2024) * HEPATITIS B SURFACE ANTIGEN W RFLX CONFIRMATION(Performed 02/09/2024) * HEMODIALYSIS INPATIENT(Performed 02/09/2024) * MAGNESIUM BLOOD(Performed 02/09/2024) * RENAL FUNCTION PANEL(Performed 02/09/2024) * CBC W/O DIFFERENTIAL(Performed 02/09/2024) * GLUCOSE - POINT OF CARE(Performed 02/09/2024) * GLUCOSE - POINT OF CARE(Performed 02/09/2024) * EKG 12-LEAD(Performed 02/09/2024) Performed for Chest pain, unspecified type * ACT LR - POCT ([facility])(Performed 02/08/2024) * GLUCOSE - POINT OF CARE(Performed 02/08/2024) * CCL LEFT ATRIAL APPENDAGE CLOSURE(Performed 02/08/2024) Performed for Paroxysmal atrial fibrillation (HCC) * ACT LR - POCT ([facility])(Performed 02/08/2024) * ACT LR - POCT ([facility])(Performed 02/08/2024) * ENDOTRACHEAL TUBE NOTE(Performed 02/08/2024) * ECHO JAE PROCEDURAL(Performed 02/08/2024) Performed for Paroxysmal atrial fibrillation (HCC) * ANTIBODY IDENTIFICATION(Performed 02/08/2024) * ALEAH DIRECT(Performed 02/08/2024) * TYPE + SCREEN PANEL(Performed 02/08/2024) * CBC W/O DIFFERENTIAL(Performed 02/08/2024) Performed for HFrEF (heart failure with reduced ejection fraction) (HCC) * BASIC METABOLIC PANEL (CALCIUM TOTAL)(Performed 02/08/2024) Performed for HFrEF (heart failure with reduced ejection fraction) (HCC) * CCL EDGER TAILER DIAGNOSTIC JAE(Performed 01/01/2024) * ECHO JAE COMPLETE(Performed 01/01/2024) Performed for Pre-procedural cardiovascular examination * BASIC METABOLIC PANEL (CALCIUM TOTAL)(Performed 01/01/2024) Performed for Atrial fibrillation, unspecified type (HCC) * CBC W AUTO DIFFERENTIAL(Performed 01/01/2024) Performed for Atrial fibrillation, unspecified type (HCC) * EKG 12-LEAD(Performed 01/01/2024) Performed for Atrial fibrillation, unspecified type (HCC) * IMMUNOFIXATION BLOOD(Performed 12/28/2023) Performed for NICM (nonischemic cardiomyopathy) (HCC) * FL SWALLOWING FUNCTION STUDY(Performed 12/28/2023) Performed for Oropharyngeal dysphagia * IMMUNOFIXATION BLOOD(Performed 12/27/2023) * CBC W AUTO DIFFERENTIAL(Performed 12/27/2023) Performed for NICM (nonischemic cardiomyopathy) (HCC) * COMPREHENSIVE METABOLIC PANEL(Performed 12/27/2023) Performed for NICM (nonischemic cardiomyopathy) (HCC) * KAPPA/LAMBDA LITE CHAIN FREE PANEL(Performed 12/27/2023) Performed for NICM (nonischemic cardiomyopathy) (HCC) * XR CERVICAL SPINE 2 OR 3VW(Performed 12/19/2023) Performed for S/P cervical spinal fusion * ECHO COMPLETE(Performed 12/12/2023) Performed for Valvular heart disease * XR CERVICAL SPINE 2 OR 3VW(Performed 11/09/2023) Performed for Cervical myelopathy (HCC) * CBC W AUTO DIFFERENTIAL(Performed 10/19/2023) * PHOSPHORUS BLOOD(Performed 10/19/2023) * MAGNESIUM BLOOD(Performed 10/19/2023) * COMPREHENSIVE METABOLIC PANEL(Performed 10/19/2023) * HEPATITIS B SURFACE ANTIGEN W RFLX CONFIRMATION(Performed 10/18/2023) * DIGOXIN LEVEL(Performed 10/18/2023) * HEPATITIS C AB SCREEN RFLX NAAT QUANT(Performed 10/18/2023) * VAS ARTERIAL MULTILEVEL UE(Performed 10/18/2023) Performed for Acute right-sided weakness * CBC W AUTO DIFFERENTIAL(Performed 10/18/2023) * DIGOXIN LEVEL(Performed 10/18/2023) * PHOSPHORUS BLOOD(Performed 10/18/2023) * MAGNESIUM BLOOD(Performed 10/18/2023) * COMPREHENSIVE METABOLIC PANEL(Performed 10/18/2023) * HEMODIALYSIS INPATIENT(Performed 10/17/2023) * CBC W AUTO DIFFERENTIAL(Performed 10/17/2023) * PHOSPHORUS BLOOD(Performed 10/17/2023) * MAGNESIUM BLOOD(Performed 10/17/2023) * COMPREHENSIVE METABOLIC PANEL(Performed 10/17/2023) * CBC W AUTO DIFFERENTIAL(Performed 10/16/2023) * PHOSPHORUS BLOOD(Performed 10/16/2023) * MAGNESIUM BLOOD(Performed 10/16/2023) * COMPREHENSIVE METABOLIC PANEL(Performed 10/16/2023) * HEMODIALYSIS INPATIENT(Performed 10/15/2023) * GLUCOSE - POINT OF CARE(Performed 10/15/2023) * CBC W AUTO DIFFERENTIAL(Performed 10/15/2023) * PHOSPHORUS BLOOD(Performed 10/15/2023) * MAGNESIUM BLOOD(Performed 10/15/2023) * COMPREHENSIVE METABOLIC PANEL(Performed 10/15/2023) * CBC W AUTO DIFFERENTIAL(Performed 10/15/2023) * GLUCOSE - POINT OF CARE(Performed 10/14/2023) * GLUCOSE - POINT OF CARE(Performed 10/14/2023) * CBC W AUTO DIFFERENTIAL(Performed 10/14/2023) * GLUCOSE - POINT OF CARE(Performed 10/14/2023) * SARS-COV-2 (COVID-19) RAPID(Performed 10/14/2023) * GLUCOSE - POINT OF CARE(Performed 10/14/2023) * CBC W AUTO DIFFERENTIAL(Performed 10/14/2023) * PHOSPHORUS BLOOD(Performed 10/14/2023) * MAGNESIUM BLOOD(Performed 10/14/2023) * COMPREHENSIVE METABOLIC PANEL(Performed 10/14/2023) * GLUCOSE - POINT OF CARE(Performed 10/14/2023) * GLUCOSE - POINT OF CARE(Performed 10/13/2023) * CBC W AUTO DIFFERENTIAL(Performed 10/13/2023) * HEMODIALYSIS INPATIENT(Performed 10/13/2023) * GLUCOSE - POINT OF CARE(Performed 10/13/2023) * CBC W AUTO DIFFERENTIAL(Performed 10/13/2023) * PTT [facility](Performed 10/13/2023) * PT-INR [facility](Performed 10/13/2023) * PHOSPHORUS BLOOD(Performed 10/13/2023) * MAGNESIUM BLOOD(Performed 10/13/2023) * COMPREHENSIVE METABOLIC PANEL(Performed 10/13/2023) * GLUCOSE - POINT OF CARE(Performed 10/13/2023) * CBC W AUTO DIFFERENTIAL(Performed 10/12/2023) * LACTIC ACID BLOOD(Performed 10/12/2023) * CBC W AUTO DIFFERENTIAL(Performed 10/12/2023) * XR SHOULDER RIGHT 2VW OR MORE(Performed 10/12/2023) Performed for Acute pain of right shoulder * GLUCOSE - POINT OF CARE(Performed 10/12/2023) * CBC W AUTO DIFFERENTIAL(Performed 10/12/2023) * PTT [facility](Performed 10/12/2023) * PT-INR [facility](Performed 10/12/2023) * PHOSPHORUS BLOOD(Performed 10/12/2023) * MAGNESIUM BLOOD(Performed 10/12/2023) * COMPREHENSIVE METABOLIC PANEL(Performed 10/12/2023) * GLUCOSE - POINT OF CARE(Performed 10/12/2023) * CBC W AUTO DIFFERENTIAL(Performed 10/11/2023) * GLUCOSE - POINT OF CARE(Performed 10/11/2023) * XR CERVICAL SPINE 2 OR 3VW(Performed 10/11/2023) Performed for Cord compression (HCC) * CBC W AUTO DIFFERENTIAL(Performed 10/11/2023) * GLUCOSE - POINT OF CARE(Performed 10/11/2023) * PTT [facility](Performed 10/11/2023) * HEMODIALYSIS INPATIENT(Performed 10/11/2023) * GLUCOSE - POINT OF CARE(Performed 10/11/2023) * GLUCOSE - POINT OF CARE(Performed 10/11/2023) * PTT [facility](Performed 10/11/2023) * CBC W AUTO DIFFERENTIAL(Performed 10/11/2023) * PT-INR [facility](Performed 10/11/2023) * PHOSPHORUS BLOOD(Performed 10/11/2023) * MAGNESIUM BLOOD(Performed 10/11/2023) * COMPREHENSIVE METABOLIC PANEL(Performed 10/11/2023) * GLUCOSE - POINT OF CARE(Performed 10/11/2023) * CBC W AUTO DIFFERENTIAL(Performed 10/10/2023) * GLUCOSE - POINT OF CARE(Performed 10/10/2023) * PTT [facility](Performed 10/10/2023) * CBC W AUTO DIFFERENTIAL(Performed 10/10/2023) * GLUCOSE - POINT OF CARE(Performed 10/10/2023) * PTT [facility](Performed 10/10/2023) * GLUCOSE - POINT OF CARE(Performed 10/10/2023) * PROCALCITONIN LEVEL(Performed 10/10/2023) * CBC W AUTO DIFFERENTIAL(Performed 10/10/2023) * PTT [facility](Performed 10/10/2023) * PT-INR [facility](Performed 10/10/2023) * PHOSPHORUS BLOOD(Performed 10/10/2023) * MAGNESIUM BLOOD(Performed 10/10/2023) * COMPREHENSIVE METABOLIC PANEL(Performed 10/10/2023) * PTT [facility](Performed 10/10/2023) * GLUCOSE - POINT OF CARE(Performed 10/09/2023) * CBC W AUTO DIFFERENTIAL(Performed 10/09/2023) * GLUCOSE - POINT OF CARE(Performed 10/09/2023) * PTT [facility](Performed 10/09/2023) * GLUCOSE - POINT OF CARE(Performed 10/09/2023) * XR CHEST 1VW PORTABLE(Performed 10/09/2023) Performed for Restrictive lung disease * MRSA DNA PCR(Performed 10/09/2023) * EKG 12-LEAD(Performed 10/09/2023) Performed for HFrEF (heart failure with reduced ejection fraction) ([facility]) * GLUCOSE - POINT OF CARE(Performed 10/09/2023) * GLUCOSE - POINT OF CARE(Performed 10/09/2023) * CBC W AUTO DIFFERENTIAL(Performed 10/09/2023) * PTT [facility](Performed 10/09/2023) * BLOOD GASES ART + COOX PANEL(Performed 10/09/2023) * HEMODIALYSIS INPATIENT(Performed 10/09/2023) * GLUCOSE - POINT OF CARE(Performed 10/09/2023) * LAB MISC TEST(Performed 10/09/2023) * CBC W AUTO DIFFERENTIAL(Performed 10/09/2023) * PT-INR [facility](Performed 10/09/2023) * PHOSPHORUS BLOOD(Performed 10/09/2023) * MAGNESIUM BLOOD(Performed 10/09/2023) * COMPREHENSIVE METABOLIC PANEL(Performed 10/09/2023) * PTT [facility](Performed 10/09/2023) * PREPARE RBC LEUKOREDUCED UNIT(Performed 10/09/2023) Performed for Cervical stenosis of spine, Right sided weakness * PREPARE RBC LEUKOREDUCED UNIT(Performed 10/09/2023) Performed for Myelopathy ([facility]) * PREPARE RBC LEUKOREDUCED UNIT(Performed 10/09/2023) Performed for Pre-op exam * GLUCOSE - POINT OF CARE(Performed 10/09/2023) * GLUCOSE - POINT OF CARE(Performed 10/08/2023) * BLOOD GASES ART + COOX PANEL(Performed 10/08/2023) * PTT [facility](Performed 10/08/2023) * CBC W AUTO DIFFERENTIAL(Performed 10/08/2023) * GLUCOSE - POINT OF CARE(Performed 10/08/2023) * GLUCOSE - POINT OF CARE(Performed 10/08/2023) * GLUCOSE - POINT OF CARE(Performed 10/08/2023) * PULSE OXIMETRY, CONTINUOUS(Performed 10/08/2023) * WEANING PARAMETERS(Performed 10/08/2023) * OXYGEN WITH TITRATION PROTOCOL (ADULT)(Performed 10/08/2023) * BLOOD GASES ART + COOX PANEL(Performed 10/08/2023) * CULTURE BLOOD(Performed 10/08/2023) * XR CHEST 1VW PORTABLE(Performed 10/08/2023) Performed for Gastroesophageal reflux disease without esophagitis * PTT [facility](Performed 10/08/2023) * CBC W AUTO DIFFERENTIAL(Performed 10/08/2023) * CULTURE BLOOD(Performed 10/08/2023) * GLUCOSE - POINT OF CARE(Performed 10/08/2023) * CT HEAD WO CONTRAST(Performed 10/08/2023) Performed for Chronic hypotension * PTT [facility](Performed 10/08/2023) * PT-INR [facility](Performed 10/08/2023) * GLUCOSE - POINT OF CARE(Performed 10/08/2023) * PT-INR [facility](Performed 10/08/2023) * PHOSPHORUS BLOOD(Performed 10/08/2023) * MAGNESIUM BLOOD(Performed 10/08/2023) * COMPREHENSIVE METABOLIC PANEL(Performed 10/08/2023) * CBC W AUTO DIFFERENTIAL(Performed 10/08/2023) * GLUCOSE - POINT OF CARE(Performed 10/07/2023) * GLUCOSE - POINT OF CARE(Performed 10/07/2023) * GLUCOSE - POINT OF CARE(Performed 10/07/2023) * GLUCOSE - POINT OF CARE(Performed 10/07/2023) * PT-INR [facility](Performed 10/07/2023) * PHOSPHORUS BLOOD(Performed 10/07/2023) * MAGNESIUM BLOOD(Performed 10/07/2023) * COMPREHENSIVE METABOLIC PANEL(Performed 10/07/2023) * CBC W AUTO DIFFERENTIAL(Performed 10/07/2023) * GLUCOSE - POINT OF CARE(Performed 10/07/2023) * GLUCOSE - POINT OF CARE(Performed 10/06/2023) * GLUCOSE - POINT OF CARE(Performed 10/06/2023) * HEMODIALYSIS INPATIENT(Performed 10/06/2023) * GLUCOSE - POINT OF CARE(Performed 10/06/2023) * BASIC METABOLIC PANEL (CALCIUM TOTAL)(Performed 10/06/2023) * GLUCOSE - POINT OF CARE(Performed 10/06/2023) * GLUCOSE - POINT OF CARE(Performed 10/06/2023) * LIPID PROFILE(Performed 10/06/2023) * HEMOGLOBIN A1C(Performed 10/06/2023) * CBC W/O DIFFERENTIAL(Performed 10/06/2023) * BASIC METABOLIC PANEL (CALCIUM TOTAL)(Performed 10/06/2023) * GLUCOSE - POINT OF CARE(Performed 10/06/2023) * GLUCOSE - POINT OF CARE(Performed 10/06/2023) * POTASSIUM WHOLE BLD(Performed 10/06/2023) * EKG 12-LEAD(Performed 10/06/2023) Performed for Hyperkalemia * DIGOXIN LEVEL(Performed 10/05/2023) * PT-INR [facility](Performed 10/05/2023) * PHOSPHORUS BLOOD(Performed 10/05/2023) * MAGNESIUM BLOOD(Performed 10/05/2023) * COMPREHENSIVE METABOLIC PANEL(Performed 10/05/2023) * CBC W AUTO DIFFERENTIAL(Performed 10/05/2023) * PULSE OXIMETRY, CONTINUOUS(Performed 10/05/2023) * WEANING PARAMETERS(Performed 10/05/2023) * OXYGEN WITH TITRATION PROTOCOL (ADULT)(Performed 10/05/2023) * TRANSFUSE RED BLOOD CELL LEUKOREDUCED UNIT(S)(Performed 10/05/2023) * BLOOD GAS+COOX+LYTES+METAB ARTERIAL POCT(Performed 10/05/2023) * BLOOD GAS ART+LYTES+METAB+COOX POC NOTIF(Performed 10/05/2023) * CBC W/O DIFFERENTIAL(Performed 10/05/2023) * MRI CERVICAL SPINE WO CONTRAST(Performed 10/05/2023) Performed for Right sided weakness * MRI BRAIN WO CONTRAST(Performed 10/05/2023) Performed for Right sided weakness * BLOOD GAS ART+LYTES+METAB+COOX POC NOTIF(Performed 10/05/2023) * CT ANGIO BRAIN NECK STROKE(Performed 10/05/2023) Performed for Right sided weakness * CREATININE - POCT INTERFACED(Performed 10/05/2023) * CT BRAIN STROKE(Performed 10/05/2023) Performed for Right sided weakness * COMPREHENSIVE METABOLIC PANEL(Performed 10/05/2023) * GLUCOSE - POINT OF CARE(Performed 10/05/2023) * FL DEBBIE SURGERY(Performed 10/05/2023) Performed for Cervical stenosis of spine * BLOOD GAS+COOX+LYTES+METAB ARTERIAL POCT(Performed 10/05/2023) * BLOOD GAS ART+LYTES+METAB+COOX POC NOTIF(Performed 10/05/2023) Performed for End stage renal disease on dialysis (HCC) * ENDOTRACHEAL TUBE NOTE(Performed 10/05/2023) * PERIPHERAL IV NOTE(Performed 10/05/2023) * PERIPHERAL IV NOTE(Performed 10/05/2023) * ARTERIAL LINE NOTE(Performed 10/05/2023) * DE ESOPHAGOSCOPY RIGID TRNSO DX(Performed 10/05/2023) Performed for Cervical myelopathy ([facility]) * DE LARYNGOSCOPY,DIRECT,DIAGNOSTIC(Performed 10/05/2023) Performed for Cervical myelopathy ([facility]) * DE ARTHRD PST/PSTLAT TQ 1NTRSPC CRV BELW C2 SEGMENT(Performed 10/05/2023) Performed for Cervical myelopathy ([facility]) * GLUCOSE - POINT OF CARE(Performed 10/05/2023) * ALEAH DIRECT(Performed 10/05/2023) Performed for Myelopathy ([facility]) * ANTIBODY IDENTIFICATION(Performed 10/05/2023) Performed for Myelopathy ([facility]) * TYPE + SCREEN PANEL(Performed 10/05/2023) Performed for Myelopathy ([facility]) * POTASSIUM WHOLE BLD(Performed 10/05/2023) Performed for Pre-op examination * ALEAH DIRECT(Performed 09/26/2023) Performed for Pre-op exam * ANTIBODY IDENTIFICATION(Performed 09/26/2023) Performed for Pre-op exam * TYPE + SCREEN PANEL(Performed 09/26/2023) Performed for Pre-op exam * CBC W/O DIFFERENTIAL(Performed 09/26/2023) Performed for Pre-op exam * BASIC METABOLIC PANEL (CALCIUM TOTAL)(Performed 09/26/2023) Performed for Pre-op exam * EKG 12-LEAD(Performed 09/26/2023) Performed for Pre-op exam * HEMOGLOBIN A1C - POINT OF CARE (AMB)(Performed 09/25/2023) Performed for History of diabetes mellitus * XR CERVICAL SPINE 2 OR 3VW(Performed 09/12/2023) Performed for S/P cervical spinal fusion * VITAMIN D 1,25 DIHYDROXY(Performed 08/31/2023) Performed for Other specified nonscarring hair loss, Vitamin D deficiency * FOLATE(Performed 08/31/2023) Performed for Other specified nonscarring hair loss, Anemia in chronic kidney disease, on chronic dialysis ([facility]) * VITAMIN B12(Performed 08/31/2023) Performed for Other specified nonscarring hair loss, Anemia in chronic kidney disease, on chronic dialysis ([facility]) * T4 FREE(Performed 08/31/2023) Performed for Other specified nonscarring hair loss * TSH(Performed 08/31/2023) Performed for Other specified nonscarring hair loss * FERRITIN(Performed 08/31/2023) Performed for Other specified nonscarring hair loss, Anemia in chronic kidney disease, on chronic dialysis ([facility]) * IRON BLOOD(Performed 08/31/2023) Performed for Other specified nonscarring hair loss, Anemia in chronic kidney disease, on chronic dialysis ([facility]) * ZINC BLOOD(Performed 08/31/2023) Performed for Other specified nonscarring hair loss, Anemia in chronic kidney disease, on chronic dialysis ([facility]) * T3 FREE(Performed 08/31/2023) Performed for Other specified nonscarring hair loss * MRI CERVICAL SPINE WWO CONT(Performed 08/31/2023) Performed for S/P cervical spinal fusion * CREATININE - POCT INTERFACED(Performed 08/31/2023) * CT CERVICAL SPINE W CONTRAST(Performed 08/22/2023) Performed for S/P cervical spinal fusion * XR CERVICAL SPINE 2 OR 3VW(Performed 08/22/2023) Performed for S/P cervical spinal fusion * IMAGING/RADIOLOGY/XRAY RESULTS ORDER(Performed 08/21/2023) * VAS DIALYSIS EXIST ACCESS SCAN(Performed 08/15/2023) Performed for 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, subsequent encounter, End stage renal disease on dialysis ([facility]) * VAS ARTERIAL ANKLE ARM INDEX(Performed 08/15/2023) Performed for 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, subsequent encounter, End stage renal disease on dialysis ([facility]) * VAS CAROTID DUPLEX BILATERAL(Performed 07/10/2023) Performed for Ischemic optic neuropathy, unspecified laterality, Optic neuropathy, Generalized contraction of visual field, bilateral * XR CERVICAL SPINE 2 OR 3VW(Performed 06/29/2023) Performed for S/P cervical spinal fusion * HEMOGLOBIN A1C - POINT OF CARE (AMB)(Performed 06/21/2023) Performed for History of diabetes mellitus * XR CERVICAL SPINE 2 OR 3VW(Performed 05/11/2023) Performed for Neck pain * PREPARE RBC LEUKOREDUCED UNIT(Performed 04/14/2023) * RENAL FUNCTION PANEL(Performed 04/13/2023) Performed for End stage renal disease on dialysis ([facility]) * MAGNESIUM BLOOD(Performed 04/13/2023) Performed for End stage renal disease on dialysis ([facility]) * HEMODIALYSIS INPATIENT(Performed 04/12/2023) * RENAL FUNCTION PANEL(Performed 04/12/2023) Performed for End stage renal disease on dialysis ([facility]) * MAGNESIUM BLOOD(Performed 04/12/2023) Performed for End stage renal disease on dialysis ([facility]) * CBC W/O DIFFERENTIAL(Performed 04/11/2023) Performed for End stage renal disease on dialysis ([facility]) * RENAL FUNCTION PANEL(Performed 04/11/2023) Performed for End stage renal disease on dialysis ([facility]) * MAGNESIUM BLOOD(Performed 04/11/2023) Performed for End stage renal disease on dialysis ([facility]) * HEMODIALYSIS INPATIENT(Performed 04/11/2023) * XR CHEST 1VW PORTABLE(Performed 04/11/2023) Performed for Acute hypoxic respiratory failure ([facility]) * DIGOXIN LEVEL(Performed 04/11/2023) Performed for Atrial fibrillation, unspecified type ([facility]) * PHOSPHORUS BLOOD(Performed 04/11/2023) Performed for End stage renal disease on dialysis ([facility]) * MAGNESIUM BLOOD(Performed 04/11/2023) Performed for End stage renal disease on dialysis ([facility]) * COMPREHENSIVE METABOLIC PANEL(Performed 04/11/2023) Performed for End stage renal disease on dialysis ([facility]) * CBC W AUTO DIFFERENTIAL(Performed 04/11/2023) Performed for End stage renal disease on dialysis ([facility]) * XR CERVICAL SPINE 2 OR 3VW(Performed 04/10/2023) Performed for Myelopathy ([facility]) * GLUCOSE - POINT OF CARE(Performed 04/10/2023) * FL DEBBIE SURGERY(Performed 04/10/2023) Performed for Preop examination * DE NECK SPINE FUSE&REMOVE ADDL(Performed 04/10/2023) Performed for Myeloradiculopathy * PERIPHERAL IV NOTE(Performed 04/10/2023) * ENDOTRACHEAL TUBE NOTE(Performed 04/10/2023) * GLUCOSE - POINT OF CARE(Performed 04/10/2023) * ANTIBODY IDENTIFICATION(Performed 04/10/2023) Performed for Preop examination * ALEAH DIRECT(Performed 04/10/2023) Performed for Preop examination * TYPE + SCREEN PANEL(Performed 04/10/2023) Performed for Preop examination * POTASSIUM WHOLE BLD(Performed 04/10/2023) Performed for Preop examination * POTASSIUM WHOLE BLD(Performed 04/03/2023) Performed for Spinal stenosis of lumbar region with neurogenic claudication * CBC W AUTO DIFFERENTIAL(Performed 04/03/2023) Performed for Pre-op examination * GLUCOSE - POINT OF CARE(Performed 04/03/2023) * ALEAH DIRECT(Performed 04/03/2023) Performed for Pre-op testing, End stage renal disease on dialysis ([facility]) * ANTIBODY IDENTIFICATION(Performed 04/03/2023) Performed for Pre-op testing, End stage renal disease on dialysis ([facility]) * TYPE + SCREEN PANEL(Performed 04/03/2023) Performed for Pre-op testing, End stage renal disease on dialysis ([facility]) * BASIC METABOLIC PANEL (CALCIUM TOTAL)(Performed 04/03/2023) Performed for Pre-op testing, End stage renal disease on dialysis ([facility]) * PAIN MANAGEMENT PROCEDURE TIME(Performed 03/14/2023) Performed for Primary localized osteoarthrosis of lower leg, unspecified laterality * XR CHEST 2VW(Performed 02/09/2023) Performed for URI with cough and congestion * SARS-COV-2 (COVID-19) AG W OPTIC (AMB) POCT(Performed 02/09/2023) Performed for Sore throat, URI with cough and congestion * STREP A SCREEN - POINT OF CARE (AMB) STL(Performed 02/09/2023) Performed for Sore throat * PAIN MANAGEMENT PROCEDURE TIME(Performed 01/31/2023) Performed for Cervical radiculitis * XR KNEE BILAT STANDING 1VW(Performed 01/05/2023) Performed for Primary osteoarthritis of both knees * AMB REFERRAL TO RHEUMATOLOGY(Performed 12/26/2022) Performed for Rheumatoid factor positive * CBC W/O DIFFERENTIAL(Performed 12/24/2022) Performed for Atrial fibrillation, unspecified type ([facility]) * MAGNESIUM BLOOD(Performed 12/24/2022) Performed for ESRD on dialysis ([facility]) * RENAL FUNCTION PANEL(Performed 12/24/2022) Performed for ESRD on dialysis ([facility]) * PTH INTACT W/O CALCIUM(Performed 12/23/2022) Performed for End stage renal disease on dialysis ([facility]) * HEMODIALYSIS INPATIENT(Performed 12/23/2022) * PTH INTACT W/O CALCIUM(Performed 12/23/2022) Performed for ESRD on dialysis ([facility]) * CBC W/O DIFFERENTIAL(Performed 12/23/2022) Performed for Atrial fibrillation, unspecified type ([facility]) * MAGNESIUM BLOOD(Performed 12/23/2022) Performed for ESRD on dialysis ([facility]) * RENAL FUNCTION PANEL(Performed 12/23/2022) Performed for ESRD on dialysis ([facility]) * MRI THORACIC SPINE WO CONTRAST(Performed 12/22/2022) Performed for Left arm pain * MRI CERVICAL SPINE WO CONTRAST(Performed 12/22/2022) Performed for Left arm pain * CBC W/O DIFFERENTIAL(Performed 12/22/2022) Performed for Atrial fibrillation, unspecified type ([facility]) * CALCIUM IONIZED WHOLE BLOOD(Performed 12/22/2022) Performed for ESRD on dialysis ([facility]) * MAGNESIUM BLOOD(Performed 12/22/2022) Performed for ESRD on dialysis ([facility]) * RENAL FUNCTION PANEL(Performed 12/22/2022) Performed for ESRD on dialysis ([facility]) * HEMODIALYSIS INPATIENT(Performed 12/21/2022) * XR THORACIC SPINE 2VW(Performed 12/21/2022) Performed for Chest pain, unspecified type, Left arm pain * XR CERVICAL SPINE 2 OR 3VW(Performed 12/21/2022) Performed for Chest pain, unspecified type, Left arm pain * VAS LEFT VENOUS DUPLEX UE(Performed 12/21/2022) Performed for Chest pain, unspecified type, Dyspnea on exertion * VAS BILATERAL VENOUS DUPLEX LE(Performed 12/21/2022) Performed for Chest pain, unspecified type, Bilateral leg pain * CBC W/O DIFFERENTIAL(Performed 12/21/2022) Performed for Atrial fibrillation, unspecified type ([facility]) * CALCIUM IONIZED WHOLE BLOOD(Performed 12/21/2022) Performed for ESRD on dialysis ([facility]CC) * MAGNESIUM BLOOD(Performed 12/21/2022) Performed for ESRD on dialysis ([facility]) * RENAL FUNCTION PANEL(Performed 12/21/2022) Performed for ESRD on dialysis ([facility]) * DIGOXIN LEVEL(Performed 12/21/2022) Performed for Atrial fibrillation, unspecified type ([facility]CC) * CT ABDOMEN PELVIS W CONTRAST(Performed 12/21/2022) Performed for Abdominal pain, generalized * TROPONIN-I HIGH SENSITIVE REFLEX 1HOUR(Performed 12/20/2022) * XR CHEST 2VW(Performed 12/20/2022) Performed for Chest pain, unspecified type * B-TYPE NATRIURETIC PEPTIDE(Performed 12/20/2022) * PT-INR [facility]H(Performed 12/20/2022) * COMPREHENSIVE METABOLIC PANEL(Performed 12/20/2022) * CBC W AUTO DIFFERENTIAL(Performed 12/20/2022) * TROPONIN-I HIGH SENSITIVE BASELINE + 1HR(Performed 12/20/2022) * EKG 12-LEAD(Performed 12/20/2022) Performed for Chest pain, unspecified type * IMAGING/RADIOLOGY/XRAY RESULTS ORDER(Performed 12/16/2022) * EKG 12-LEAD(Performed 12/06/2022) Performed for Pre-transplant evaluation for kidney transplant, Hypertension, unspecified type, Coronary artery disease involving igiugig heart without angina pectoris, unspecified vessel or lesion type * BLOOD TYPE ABO+ RH PANEL(Performed 12/06/2022) Performed for Pre-transplant evaluation for kidney transplant * BILL ONLY DRVVT CONFIRM(Performed 12/06/2022) Performed for Pre-transplant evaluation for kidney transplant * BILL ONLY DRVVT 1:1 MIX(Performed 12/06/2022) Performed for Pre-transplant evaluation for kidney transplant * ANTIBODY IDENTIFICATION(Performed 12/06/2022) Performed for Pre-transplant evaluation for kidney transplant * ALEAH DIRECT(Performed 12/06/2022) Performed for Pre-transplant evaluation for kidney transplant * HLA ANTIBODY SCREEN LUM CLASS 2 SAB(Performed 12/06/2022) Performed for Pre-transplant evaluation for kidney transplant * HLA ANTIBODY SCREEN LUM CLASS 1 SAB(Performed 12/06/2022) Performed for Pre-transplant evaluation for kidney transplant * HLA TYPING DNA LOW RESOLUTION DR,DQ(Performed 12/06/2022) Performed for Pre-transplant evaluation for kidney transplant * HLA TYPING DNA LOW RESOLUTION A,B,C(Performed 12/06/2022) Performed for Pre-transplant evaluation for kidney transplant * TYPE + SCREEN PANEL(Performed 12/06/2022) Performed for Pre-transplant evaluation for kidney transplant * HEMOGLOBIN ELECTROPHORESIS(Performed 12/06/2022) Performed for Pre-transplant evaluation for kidney transplant * OXALATE BLOOD(Performed 12/06/2022) Performed for Pre-transplant evaluation for kidney transplant * BETA-2 GLYCOPROTEIN 1 ANTIBODY IGG/IGM PANEL(Performed 12/06/2022) Performed for Pre-transplant evaluation for kidney transplant * CEZAR VIPER VENOM DILUTE(Performed 12/06/2022) Performed for Pre-transplant evaluation for kidney transplant * FACTOR V LEIDEN MUTATION PANEL(Performed 12/06/2022) Performed for Pre-transplant evaluation for kidney transplant * PROTEIN C ANTIGEN(Performed 12/06/2022) Performed for Pre-transplant evaluation for kidney transplant * PROTEIN C ACTIVITY(Performed 12/06/2022) Performed for Pre-transplant evaluation for kidney transplant * PROTEIN S ANTIGEN TOTAL(Performed 12/06/2022) Performed for Pre-transplant evaluation for kidney transplant * ANTITHROMBIN III ACTIVITY(Performed 12/06/2022) Performed for Pre-transplant evaluation for kidney transplant * CARDIOLIPIN ANTIBODY IGM(Performed 12/06/2022) Performed for Pre-transplant evaluation for kidney transplant * CARDIOLIPIN ANTIBODY IGG(Performed 12/06/2022) Performed for Pre-transplant evaluation for kidney transplant * PROTHROMBIN [id number] PANEL(Performed 12/06/2022) Performed for Pre-transplant evaluation for kidney transplant * HOMOCYSTEINE BLOOD QUANTITATIVE(Performed 12/06/2022) Performed for Pre-transplant evaluation for kidney transplant * C-PEPTIDE(Performed 12/06/2022) Performed for Pre-transplant evaluation for kidney transplant * STRONGYLOIDES ANTIBODY IGG(Performed 12/06/2022) Performed for Pre-transplant evaluation for kidney transplant * TOXOPLASMA GONDII ANTIBODY IGG(Performed 12/06/2022) Performed for Pre-transplant evaluation for kidney transplant * HIV-1 HIV-2 ANTIBODY + HIV P24 AG PANEL(Performed 12/06/2022) Performed for Pre-transplant evaluation for kidney transplant * QUANTIFERON-TB GOLD PLUS 4-TUBE(Performed 12/06/2022) Performed for Pre-transplant evaluation for kidney transplant * VARICELLA ZOSTER ANTIBODY IGG(Performed 12/06/2022) Performed for Pre-transplant evaluation for kidney transplant * RUBELLA ANTIBODY IGG TITER(Performed 12/06/2022) Performed for Pre-transplant evaluation for kidney transplant * MUMPS ANTIBODY IGG(Performed 12/06/2022) Performed for Pre-transplant evaluation for kidney transplant * RUBEOLA ANTIBODY IGG(Performed 12/06/2022) Performed for Pre-transplant evaluation for kidney transplant * CANNABINOID SCREEN BLOOD(Performed 12/06/2022) Performed for Pre-transplant evaluation for kidney transplant * OPIATES BLOOD(Performed 12/06/2022) Performed for Pre-transplant evaluation for kidney transplant * COCAINE METABOLITE BLOOD QUANT(Performed 12/06/2022) Performed for Pre-transplant evaluation for kidney transplant * AMPHETAMINE BLOOD CONFIRMATION(Performed 12/06/2022) Performed for Pre-transplant evaluation for kidney transplant * NICOTINE + METABOLITES BLOOD(Performed 12/06/2022) Performed for Pre-transplant evaluation for kidney transplant * ALCOHOL ETHYL BLOOD(Performed 12/06/2022) Performed for Pre-transplant evaluation for kidney transplant * SYPHILIS ANTIBODY CASCADING REFLEX(Performed 12/06/2022) Performed for Pre-transplant evaluation for kidney transplant * HEMOGLOBIN A1C(Performed 12/06/2022) Performed for Pre-transplant evaluation for kidney transplant * DONNY-JUAN VIRUS ANTIBODY TO VCA IGG(Performed 12/06/2022) Performed for Pre-transplant evaluation for kidney transplant * CYTOMEGALOVIRUS ANTIBODY IGG BLOOD(Performed 12/06/2022) Performed for Pre-transplant evaluation for kidney transplant * HEPATITIS A ANTIBODY(Performed 12/06/2022) Performed for Pre-transplant evaluation for kidney transplant * HEPATITIS C ANTIBODY(Performed 12/06/2022) Performed for Pre-transplant evaluation for kidney transplant * HEPATITIS B SURFACE ANTIBODY(Performed 12/06/2022) Performed for Pre-transplant evaluation for kidney transplant * HEPATITIS B CORE ANTIBODY TOTAL(Performed 12/06/2022) Performed for Pre-transplant evaluation for kidney transplant * HEPATITIS B SURFACE ANTIGEN W RFLX CONFIRMATION(Performed 12/06/2022) Performed for Pre-transplant evaluation for kidney transplant * LIPID PROFILE(Performed 12/06/2022) Performed for Pre-transplant evaluation for kidney transplant * PTH INTACT W/O CALCIUM(Performed 12/06/2022) Performed for Pre-transplant evaluation for kidney transplant * PHOSPHORUS BLOOD(Performed 12/06/2022) Performed for Pre-transplant evaluation for kidney transplant * IRON BLOOD(Performed 12/06/2022) Performed for Pre-transplant evaluation for kidney transplant * FERRITIN(Performed 12/06/2022) Performed for Pre-transplant evaluation for kidney transplant * TRANSFERRIN(Performed 12/06/2022) Performed for Pre-transplant evaluation for kidney transplant * VITAMIN D 25-HYDROXY(Performed 12/06/2022) Performed for Pre-transplant evaluation for kidney transplant * URIC ACID BLOOD(Performed 12/06/2022) Performed for Pre-transplant evaluation for kidney transplant * COMPREHENSIVE METABOLIC PANEL(Performed 12/06/2022) Performed for Pre-transplant evaluation for kidney transplant * CBC W AUTO DIFFERENTIAL(Performed 12/06/2022) Performed for Pre-transplant evaluation for kidney transplant * XR PANOREX(Performed 12/06/2022) Performed for Pre-transplant evaluation for kidney transplant * XR CHEST 2VW(Performed 12/06/2022) Performed for Pre-transplant evaluation for kidney transplant * CT ABDOMEN PELVIS WO CONTRAST(Performed 12/06/2022) Performed for Pre-transplant evaluation for kidney transplant * FL CYSTOGRAM VOIDING(Performed 12/06/2022) Performed for Pre-transplant evaluation for kidney transplant * ECHO COMPLETE(Performed 12/06/2022) Performed for Pre-transplant evaluation for kidney transplant, Hypertension, unspecified type, Coronary artery disease involving igiugig heart without angina pectoris, unspecified vessel or lesion type * VAS ARTERIAL MULTILEVEL LE(Performed 12/06/2022) Performed for Pre-transplant evaluation for kidney transplant * VAS BILATERAL VENOUS DUPLEX LE(Performed 12/06/2022) Performed for Pre-transplant evaluation for kidney transplant * IMAGING/RADIOLOGY/XRAY RESULTS ORDER(Performed 11/04/2022) * PROC OPH DIAB BILAT RET SCRN WCOMP INTERP(Performed 09/14/2022) Performed for Diabetic neuropathy, painful (HCC) * HEMOGLOBIN A1C - POINT OF CARE (AMB)(Performed 09/14/2022) Performed for Diabetic neuropathy, painful (HCC) * PAIN MANAGEMENT PROCEDURE TIME(Performed 08/09/2022) Performed for Sacroiliitis (HCC) * XR HIP RIGHT 2VW OR MORE(Performed 07/26/2022) Performed for Chronic right hip pain * XR PELVIS W RIGHT HIP 2VW(Performed 07/26/2022) Performed for Chronic right hip pain * XR SI JOINTS 3VW OR MORE(Performed 07/26/2022) Performed for Chronic right hip pain, Lumbar pain * CARDIAC PROCEDURE ORDER(Performed 07/12/2022) * CCL LEFT HEART CATH(Performed 07/08/2022) * BASIC METABOLIC PANEL (CALCIUM TOTAL)(Performed 07/08/2022) Performed for Chronic systolic heart failure ([facility]) * CBC W AUTO DIFFERENTIAL(Performed 07/08/2022) Performed for Chronic systolic heart failure ([facility]) * PAIN MANAGEMENT PROCEDURE TIME(Performed 06/16/2022) Performed for Lumbosacral spondylosis without myelopathy * NM MYOCARD PERF REST STRESS(Performed 06/16/2022) Performed for Chest pain, unspecified type * DIGOXIN LEVEL(Performed 06/16/2022) Performed for Nonischemic cardiomyopathy ([facility]) * LIPID PROFILE(Performed 06/16/2022) Performed for Dyslipidemia * STRESS TEST(Performed 06/16/2022) Performed for Chest pain, unspecified type * PAIN MANAGEMENT PROCEDURE TIME(Performed 06/02/2022) Performed for Lumbosacral spondylosis without myelopathy * PAIN MANAGEMENT PROCEDURE TIME(Performed 04/28/2022) Performed for Lumbosacral spondylosis without myelopathy * PAIN MANAGEMENT PROCEDURE TIME(Performed 04/14/2022) Performed for Lumbosacral spondylosis without myelopathy * PAIN MANAGEMENT PROCEDURE TIME(Performed 02/03/2022) Performed for Degenerative joint disease of sacroiliac joint ([facility]) * XR LUMBAR SP FLEX EXT 2 OR 3VW(Performed 01/24/2022) Performed for Chronic bilateral low back pain with bilateral sciatica, Spondylolisthesis of lumbar region * PAIN MANAGEMENT PROCEDURE TIME(Performed 01/05/2022) Performed for Lumbar radiculopathy * ECHOCARDIOGRAM 2D WITH DOPPLER(Performed 12/16/2021) Performed for HFrEF (heart failure with reduced ejection fraction) ([facility]) * IR ANGIO AV SHUNT IMAGING(Performed 12/01/2021) Performed for End stage renal disease ([facility]) * PAIN MANAGEMENT PROCEDURE TIME(Performed 11/30/2021) Performed for Lumbar radiculopathy * XR LUMBAR SPINE 2 OR 3VW(Performed 11/18/2021) Performed for Spinal stenosis of lumbar region with radiculopathy, Spondylolisthesis of lumbar region * HEMOGLOBIN A1C - POINT OF CARE (AMB)(Performed 11/10/2021) Performed for Diabetic neuropathy, painful (HCC) * MAMMO BILAT SCREENING(Performed 10/13/2021) Performed for Screening mammogram for breast cancer * IMAGING/RADIOLOGY/XRAY RESULTS ORDER(Performed 08/27/2021) * IMAGING/RADIOLOGY/XRAY RESULTS ORDER(Performed 08/27/2021) * IMAGING/RADIOLOGY/XRAY RESULTS ORDER(Performed 08/27/2021) * XR LUMBAR SPINE 2 OR 3VW(Performed 08/12/2021) Performed for Spinal stenosis of lumbar region with radiculopathy, Spondylolisthesis of lumbar region * IR SHARLENE LUMBAR DIRECT APPROACH(Performed 06/08/2021) Performed for Spinal stenosis of lumbar region with radiculopathy, Spondylolisthesis of lumbar region * OPH OCT TEST SLU(Performed 05/24/2021) Performed for Low-tension glaucoma of both eyes, mild stage * OPH VISUAL FIELD TEST SLU(Performed 05/24/2021) Performed for Low-tension glaucoma of both eyes, mild stage * MRI LUMBAR SPINE WO CONTRAST(Performed 04/16/2021) Performed for Chronic bilateral low back pain with bilateral sciatica * OPH CORNEAL TOPOGRAPHY TEST SLU(Performed 03/19/2021) Performed for S/P eye surgery * PATHOLOGY TISSUE(Performed 12/31/2020) Performed for Pharyngoesophageal dysphagia, Screen for colon cancer * ENDOSCOPY, COLON, DIAGNOSTIC(Performed 12/31/2020) * COLONOSCOPY SCREEN(Performed 12/31/2020) Performed for Pharyngoesophageal dysphagia, Screen for colon cancer * DE ED EGD FLEX TRANSORAL DX(Performed 12/31/2020) Performed for Pharyngoesophageal dysphagia, Screen for colon cancer * BASIC METABOLIC PANEL (CALCIUM TOTAL)(Performed 12/31/2020) Performed for End stage renal disease on dialysis (HCC) * EGD(Performed 12/31/2020) * DE REMV CATARACT EXTRACAP,INSRT LENS,COMPLX(Performed 11/19/2020) Performed for Blurred vision, bilateral * OPH OCT TEST SLU(Performed 11/13/2020) Performed for Combined form of senile cataract of left eye * EXTRACTION CATARACT WITH INSERTION LENS(Performed 11/05/2020) Performed for Blurred vision, bilateral * NM BONE SCAN WHOLE BODY(Performed 11/03/2020) Performed for Bilateral calf pain * RENAL FUNCTION PANEL(Performed 11/03/2020) * HEMODIALYSIS INPATIENT(Performed 11/02/2020) * XR KNEE RIGHT 3VW(Performed 11/02/2020) Performed for Bilateral lower extremity pain * VAS BILATERAL VENOUS DUPLEX LE(Performed 11/02/2020) Performed for Positive D dimer * C-REACTIVE PROTEIN(Performed 11/02/2020) Performed for Bilateral lower extremity pain * ERYTHROCYTE SEDIMENTATION RATE(Performed 11/02/2020) Performed for Bilateral lower extremity pain * RENAL FUNCTION PANEL(Performed 11/02/2020) Performed for Positive D dimer * CBC W AUTO DIFFERENTIAL(Performed 11/02/2020) Performed for Positive D dimer * D-DIMER(Performed 11/01/2020) * CK BLOOD(Performed 11/01/2020) Performed for Bilateral lower extremity pain * COMPREHENSIVE METABOLIC PANEL(Performed 11/01/2020) * XR LUMBAR SPINE 2 OR 3VW(Performed 11/01/2020) Performed for Bilateral sciatica * CBC W AUTO DIFFERENTIAL(Performed 11/01/2020) * CARDIAC EKG ORDER(Performed 10/22/2020) * TROPONIN I(Performed 10/20/2020) * EKG 12-LEAD(Performed 10/20/2020) Performed for Hypotension, unspecified hypotension type * TSH REFLEX FREE T4(Performed 10/20/2020) * TROPONIN I(Performed 10/20/2020) * COMPREHENSIVE METABOLIC PANEL(Performed 10/20/2020) * CBC W AUTO DIFFERENTIAL(Performed 10/20/2020) * B-TYPE NATRIURETIC PEPTIDE(Performed 10/20/2020) * EKG 12-LEAD(Performed 10/20/2020) Performed for Other chest pain * OPH CORNEAL TOPOGRAPHY TEST SLU(Performed 09/02/2020) Performed for Blurred vision, bilateral * OPH IOL TEST SLU(Performed 09/02/2020) Performed for Blurred vision, bilateral * OPH EYE ULTRASOUND SLU(Performed 09/02/2020) Performed for Blurred vision, bilateral * VAS LENY VENOUS DOPPLER LOWER EXT(Performed 09/01/2020) * LAB RESULTS ORDER(Performed 08/31/2020) * XR CHEST 2VW(Performed 08/31/2020) * CARDIAC RHYTHM STRIP ORDER(Performed 07/06/2020) * HOME O2 EVAL (DESATURATION SCREEN)(Performed 07/03/2020) * CBC W AUTO DIFFERENTIAL(Performed 07/03/2020) Performed for End stage renal disease on dialysis ([facility]) * RENAL FUNCTION PANEL(Performed 07/03/2020) Performed for End stage renal disease on dialysis ([facility]) * MAGNESIUM BLOOD(Performed 07/03/2020) * GLUCOSE - POINT OF CARE(Performed 07/02/2020) * HOME O2 EVAL (DESATURATION SCREEN)(Performed 07/02/2020) * GLUCOSE - POINT OF CARE(Performed 07/02/2020) * CBC W AUTO DIFFERENTIAL(Performed 07/02/2020) Performed for End stage renal disease on dialysis ([facility]) * RENAL FUNCTION PANEL(Performed 07/02/2020) Performed for End stage renal disease on dialysis ([facility]) * MAGNESIUM BLOOD(Performed 07/02/2020) * HEMODIALYSIS INPATIENT(Performed 07/01/2020) * CBC W AUTO DIFFERENTIAL(Performed 07/01/2020) Performed for End stage renal disease on dialysis ([facility]) * RENAL FUNCTION PANEL(Performed 07/01/2020) Performed for End stage renal disease on dialysis ([facility]) * MAGNESIUM BLOOD(Performed 07/01/2020) * CBC W AUTO DIFFERENTIAL(Performed 06/30/2020) Performed for End stage renal disease on dialysis ([facility]) * RENAL FUNCTION PANEL(Performed 06/30/2020) Performed for End stage renal disease on dialysis ([facility]) * MAGNESIUM BLOOD(Performed 06/30/2020) * HEMODIALYSIS INPATIENT(Performed 06/29/2020) * CBC W AUTO DIFFERENTIAL(Performed 06/29/2020) Performed for End stage renal disease on dialysis ([facility]) * RENAL FUNCTION PANEL(Performed 06/29/2020) Performed for End stage renal disease on dialysis ([facility]) * MAGNESIUM BLOOD(Performed 06/29/2020) * CBC W AUTO DIFFERENTIAL(Performed 06/28/2020) Performed for End stage renal disease on dialysis ([facility]) * RENAL FUNCTION PANEL(Performed 06/28/2020) Performed for End stage renal disease on dialysis ([facility]) * MAGNESIUM BLOOD(Performed 06/28/2020) * MAGNESIUM BLOOD(Performed 06/27/2020) * CBC W AUTO DIFFERENTIAL(Performed 06/27/2020) Performed for End stage renal disease on dialysis ([facility]) * RENAL FUNCTION PANEL(Performed 06/27/2020) Performed for End stage renal disease on dialysis (HCC) * MAGNESIUM BLOOD(Performed 06/27/2020) * TROPONIN I(Performed 06/26/2020) * EKG 12-LEAD(Performed 06/26/2020) Performed for Acute respiratory failure with hypoxia ([facility]) * HEMODIALYSIS INPATIENT(Performed 06/26/2020) * PHOSPHORUS BLOOD(Performed 06/26/2020) * CBC W AUTO DIFFERENTIAL(Performed 06/26/2020) Performed for Acute respiratory failure with hypoxia ([facility]) * COMPREHENSIVE METABOLIC PANEL(Performed 06/26/2020) Performed for Acute respiratory failure with hypoxia ([facility]) * MAGNESIUM BLOOD(Performed 06/25/2020) * RENAL FUNCTION PANEL(Performed 06/25/2020) * CBC W AUTO DIFFERENTIAL(Performed 06/25/2020) * GLUCOSE - POINT OF CARE(Performed 06/24/2020) * GLUCOSE - POINT OF CARE(Performed 06/24/2020) * GLUCOSE - POINT OF CARE(Performed 06/24/2020) * HEMODIALYSIS INPATIENT(Performed 06/24/2020) * MAGNESIUM BLOOD(Performed 06/24/2020) * RENAL FUNCTION PANEL(Performed 06/24/2020) * CBC W AUTO DIFFERENTIAL(Performed 06/24/2020) * GLUCOSE - POINT OF CARE(Performed 06/24/2020) * GLUCOSE - POINT OF CARE(Performed 06/24/2020) * GLUCOSE - POINT OF CARE(Performed 06/23/2020) * GLUCOSE - POINT OF CARE(Performed 06/23/2020) * GLUCOSE - POINT OF CARE(Performed 06/23/2020) * HEMODIALYSIS INPATIENT(Performed 06/23/2020) * GLUCOSE - POINT OF CARE(Performed 06/23/2020) * MAGNESIUM BLOOD(Performed 06/23/2020) * COMPREHENSIVE METABOLIC PANEL(Performed 06/23/2020) * CBC W AUTO DIFFERENTIAL(Performed 06/23/2020) * GLUCOSE - POINT OF CARE(Performed 06/23/2020) * GLUCOSE - POINT OF CARE(Performed 06/22/2020) * GLUCOSE - POINT OF CARE(Performed 06/22/2020) * CARDIAC EKG ORDER(Performed 06/22/2020) * CULTURE MRSA(Performed 06/22/2020) * GLUCOSE - POINT OF CARE(Performed 06/22/2020) * XR CHEST 1VW PORTABLE(Performed 06/22/2020) Performed for Acute respiratory failure with hypoxia (HCC) * GLUCOSE - POINT OF CARE(Performed 06/22/2020) * PROCALCITONIN LEVEL(Performed 06/22/2020) * MYOSITIS ANTIBODY PANEL COMPREHENSIVE(Performed 06/22/2020) * GLUCOSE - POINT OF CARE(Performed 06/22/2020) * MAGNESIUM BLOOD(Performed 06/22/2020) * RENAL FUNCTION PANEL(Performed 06/22/2020) * CBC W AUTO DIFFERENTIAL(Performed 06/22/2020) * C-REACTIVE PROTEIN(Performed 06/22/2020) * EMILY ANTIBODY PANEL(Performed 06/22/2020) * CYCLIC CITRUL PEPTIDE ANTIBODY IGG/IGA (CCP)(Performed 06/22/2020) * HEMODIALYSIS INPATIENT(Performed 06/22/2020) * BLOOD GASES ARTERIAL(Performed 06/21/2020) * HGB HCT PANEL(Performed 06/21/2020) * BLOOD GASES ARTERIAL(Performed 06/21/2020) * HEMODIALYSIS INPATIENT(Performed 06/21/2020) * C-REACTIVE PROTEIN(Performed 06/21/2020) * CBC W AUTO DIFFERENTIAL(Performed 06/21/2020) * MAGNESIUM BLOOD(Performed 06/21/2020) * RENAL FUNCTION PANEL(Performed 06/21/2020) * TROPONIN I(Performed 06/21/2020) * RENAL FUNCTION PANEL(Performed 06/20/2020) Performed for Chest pain, unspecified type * MAGNESIUM BLOOD(Performed 06/20/2020) Performed for Chest pain, unspecified type * CBC W AUTO DIFFERENTIAL(Performed 06/20/2020) Performed for Chest pain, unspecified type * CULTURE SPUTUM+GRAM STAIN(Performed 06/20/2020) * RESPIRATORY PANEL WITH SARS-COV-2 BY PCR (STL)(Performed 06/19/2020) * TROPONIN I(Performed 06/19/2020) * CT ANGIO CHEST PULM EMBOLISM(Performed 06/19/2020) Performed for Chest pain, unspecified type * TROPONIN I(Performed 06/19/2020) * COMPREHENSIVE METABOLIC PANEL(Performed 06/19/2020) * B-TYPE NATRIURETIC PEPTIDE(Performed 06/19/2020) * TROPONIN I(Performed 06/19/2020) * CBC W AUTO DIFFERENTIAL(Performed 06/19/2020) * XR CHEST 1VW PORTABLE(Performed 06/19/2020) Performed for Chest pain, unspecified type * EKG 12-LEAD(Performed 06/19/2020) Performed for Chest pain, unspecified type * CARDIAC RHYTHM STRIP ORDER(Performed 06/16/2020) * CARDIAC EKG ORDER(Performed 06/16/2020) * IMAGING/RADIOLOGY/XRAY RESULTS ORDER(Performed 06/16/2020) * TROPONIN I(Performed 06/15/2020) * HOME O2 EVAL (DESATURATION SCREEN)(Performed 06/15/2020) * HEMODIALYSIS INPATIENT(Performed 06/15/2020) * EKG 12-LEAD(Performed 06/15/2020) Performed for Chest pain, unspecified type * TROPONIN I(Performed 06/15/2020) * GLUCOSE - POINT OF CARE(Performed 06/15/2020) * CBC W AUTO DIFFERENTIAL(Performed 06/15/2020) * MAGNESIUM BLOOD(Performed 06/15/2020) * RENAL FUNCTION PANEL(Performed 06/15/2020) * GLUCOSE - POINT OF CARE(Performed 06/14/2020) * GLUCOSE - POINT OF CARE(Performed 06/14/2020) * HOME O2 EVAL (DESATURATION SCREEN)(Performed 06/14/2020) * IRON + TRANSFERRIN PANEL(Performed 06/14/2020) * MAGNESIUM BLOOD(Performed 06/14/2020) * RENAL FUNCTION PANEL(Performed 06/14/2020) * RETIC COUNT(Performed 06/14/2020) * CBC W AUTO DIFFERENTIAL(Performed 06/14/2020) * GLUCOSE - POINT OF CARE(Performed 06/13/2020) * GLUCOSE - POINT OF CARE(Performed 06/13/2020) * GLUCOSE - POINT OF CARE(Performed 06/13/2020) * XR CHEST 1VW PORTABLE(Performed 06/13/2020) Performed for Hemoptysis * GLUCOSE - POINT OF CARE(Performed 06/13/2020) * ERYTHROCYTE SEDIMENTATION RATE(Performed 06/13/2020) * COMPLEMENT TOTAL(Performed 06/13/2020) * COMPLEMENT C4(Performed 06/13/2020) * COMPLEMENT C3(Performed 06/13/2020) * GLOMERULAR BASE MEMBRANE ANTIBODY IGG(Performed 06/13/2020) * DNA ANTIBODY DOUBLE STRANDED(Performed 06/13/2020) * LISA BLOOD SCREEN W/REFLEX TITER(Performed 06/13/2020) * ANCA VASCULITIS PANEL(Performed 06/13/2020) * CBC W AUTO DIFFERENTIAL(Performed 06/13/2020) * MAGNESIUM BLOOD(Performed 06/13/2020) * RENAL FUNCTION PANEL(Performed 06/13/2020) * HEMODIALYSIS INPATIENT(Performed 06/12/2020) * CBC W AUTO DIFFERENTIAL(Performed 06/12/2020) * MAGNESIUM BLOOD(Performed 06/12/2020) * RENAL FUNCTION PANEL(Performed 06/12/2020) * MRI ABDOMEN WWO CONTRAST(Performed 06/11/2020) Performed for Abnormal findings on diagnostic imaging of liver * CBC W AUTO DIFFERENTIAL(Performed 06/11/2020) * MAGNESIUM BLOOD(Performed 06/11/2020) * RENAL FUNCTION PANEL(Performed 06/11/2020) * ALPHA FETOPROTEIN BLOOD TUMOR MARKER(Performed 06/10/2020) * CEA BLOOD(Performed 06/10/2020) * CBC W AUTO DIFFERENTIAL(Performed 06/10/2020) * MAGNESIUM BLOOD(Performed 06/10/2020) * RENAL FUNCTION PANEL(Performed 06/10/2020) * HEMODIALYSIS INPATIENT(Performed 06/09/2020) * HEMODIALYSIS INPATIENT(Performed 06/09/2020) * MAGNESIUM BLOOD(Performed 06/09/2020) * RENAL FUNCTION PANEL(Performed 06/09/2020) * EKG 12-LEAD(Performed 06/09/2020) Performed for SVT (supraventricular tachycardia) * TROPONIN I(Performed 06/08/2020) * RENAL FUNCTION PANEL(Performed 06/08/2020) * GLUCOSE - POINT OF CARE(Performed 06/08/2020) * EKG 12-LEAD(Performed 06/08/2020) Performed for Other chest pain, Chronic bronchitis, unspecified chronic bronchitis type (HCC) * ECHOCARDIOGRAM 2D WITH DOPPLER(Performed 06/08/2020) Performed for Chest pain, unspecified type * MAGNESIUM BLOOD(Performed 06/08/2020) * RENAL FUNCTION PANEL(Performed 06/08/2020) * GLUCOSE - POINT OF CARE(Performed 06/07/2020) * RESPIRATORY PANEL WITH SARS-COV-2 BY PCR (STL)(Performed 06/07/2020) * GLUCOSE - POINT OF CARE(Performed 06/07/2020) * HEMODIALYSIS INPATIENT(Performed 06/07/2020) * GLUCOSE - POINT OF CARE(Performed 06/07/2020) * CT CHEST WO CONTRAST(Performed 06/07/2020) Performed for Shortness of breath * GLUCOSE - POINT OF CARE(Performed 06/07/2020) * CBC W AUTO DIFFERENTIAL(Performed 06/07/2020) Performed for End stage renal disease on dialysis (HCC) * MAGNESIUM BLOOD(Performed 06/07/2020) * RENAL FUNCTION PANEL(Performed 06/07/2020) * HEMOGLOBIN A1C(Performed 06/07/2020) * GLUCOSE - POINT OF CARE(Performed 06/06/2020) * GLUCOSE - POINT OF CARE(Performed 06/06/2020) * HEPATITIS B SURFACE ANTIBODY QUANT(Performed 06/06/2020) * HEPATITIS B SURFACE ANTIGEN W RFLX CONFIRMATION(Performed 06/06/2020) * GLUCOSE - POINT OF CARE(Performed 06/06/2020) * GLUCOSE - POINT OF CARE(Performed 06/06/2020) * TROPONIN I(Performed 06/06/2020) * TROPONIN I(Performed 06/06/2020) * SARS-COV-2 (COVID-19) IN HOUSE(Performed 06/06/2020) * EKG 12-LEAD(Performed 06/05/2020) Performed for Chest pain, unspecified type * B-TYPE NATRIURETIC PEPTIDE(Performed 06/05/2020) * TROPONIN I(Performed 06/05/2020) * PHOSPHORUS BLOOD(Performed 06/05/2020) * MAGNESIUM BLOOD(Performed 06/05/2020) * CBC W AUTO DIFFERENTIAL(Performed 06/05/2020) * COMPREHENSIVE METABOLIC PANEL(Performed 06/05/2020) * XR CHEST 1VW PORTABLE(Performed 06/05/2020) Performed for Chest pain, unspecified type * DE DRAIN/INJECT LARGE JOINT/BURSA(Performed 05/25/2020) Performed for Primary osteoarthritis of left knee * XR KNEE LEFT 3VW(Performed 05/22/2020) Performed for Acute pain of left knee * MAGNESIUM BLOOD(Performed 05/10/2020) * BASIC METABOLIC PANEL (CALCIUM TOTAL)(Performed 05/10/2020) * CBC W/O DIFFERENTIAL(Performed 05/10/2020) * TSH(Performed 05/09/2020) * CBC W/O DIFFERENTIAL(Performed 05/09/2020) Performed for Sigmoid diverticulitis * MAGNESIUM BLOOD(Performed 05/09/2020) Performed for Sigmoid diverticulitis * RENAL FUNCTION PANEL(Performed 05/09/2020) Performed for Sigmoid diverticulitis * COMPREHENSIVE METABOLIC PANEL(Performed 05/08/2020) * CBC W AUTO DIFFERENTIAL(Performed 05/08/2020) * CT ABDOMEN PELVIS WO CONTRAST(Performed 05/08/2020) Performed for Abdominal pain, generalized * ECHOCARDIOGRAM 2D WITH DOPPLER(Performed 10/29/2019) Performed for Chronic systolic heart failure (HCC), Palpitations * COMPREHENSIVE METABOLIC PANEL(Performed 10/03/2019) Performed for Dysphagia, unspecified type, Dyssynergic defecation, Hx of adenomatous colonic polyps * CBC W AUTO DIFFERENTIAL(Performed 10/03/2019) Performed for Dysphagia, unspecified type, Dyssynergic defecation, Hx of adenomatous colonic polyps * TRANSFERRIN(Performed 10/03/2019) Performed for End stage renal disease , Dysphagia, unspecified type, Dyssynergic defecation, Hx of adenomatous colonic polyps * IRON BLOOD(Performed 10/03/2019) Performed for End stage renal disease , Dysphagia, unspecified type, Dyssynergic defecation, Hx of adenomatous colonic polyps * FERRITIN(Performed 10/03/2019) Performed for End stage renal disease , Dysphagia, unspecified type, Dyssynergic defecation, Hx of adenomatous colonic polyps * VITAMIN D 25-HYDROXY(Performed 10/03/2019) Performed for End stage renal disease , Dysphagia, unspecified type, Dyssynergic defecation, Hx of adenomatous colonic polyps * C-REACTIVE PROTEIN SENSITIVE(Performed 10/03/2019) Performed for Dysphagia, unspecified type, Dyssynergic defecation, Hx of adenomatous colonic polyps, End stage renal disease , Arthralgia, unspecified joint, Chronic atrial fibrillation (HCC) * ERYTHROCYTE SEDIMENTATION RATE(Performed 10/03/2019) Performed for Dysphagia, unspecified type, Dyssynergic defecation, Hx of adenomatous colonic polyps * RHEUMATOID FACTOR BLOOD QUANTITATIVE(Performed 10/03/2019) Performed for Dysphagia, unspecified type, Dyssynergic defecation, Hx of adenomatous colonic polyps * LISA BLOOD SCREEN W/REFLEX TITER(Performed 10/03/2019) Performed for Dysphagia, unspecified type, Dyssynergic defecation, Hx of adenomatous colonic polyps * LAB RESULTS ORDER(Performed 05/09/2019) * CARDIAC RHYTHM STRIP ORDER(Performed 02/28/2019) * CARDIAC EKG ORDER(Performed 02/28/2019) * CULTURE VRE(Performed 02/27/2019) Performed for End stage renal disease on dialysis ([facility]) * MAGNESIUM BLOOD(Performed 02/27/2019) Performed for ESRD (end stage renal disease) on dialysis ([facility]) * RENAL FUNCTION PANEL(Performed 02/27/2019) Performed for Other chest pain * CBC W/O DIFFERENTIAL(Performed 02/27/2019) Performed for Other chest pain * NM MYOCARD PERF REST STRESS(Performed 02/26/2019) Performed for Atypical chest pain * ECHOCARDIOGRAM 2D WITH DOPPLER(Performed 02/26/2019) Performed for Nonrheumatic mitral valve regurgitation, Chronic combined systolic and diastolic congestive heart failure ([facility]) * STRESS TEST LEXISCAN (NUCLEAR)(Performed 02/26/2019) Performed for Atypical chest pain * TSH(Performed 02/26/2019) Performed for Hypothyroidism, unspecified type * MAGNESIUM BLOOD(Performed 02/26/2019) Performed for ESRD (end stage renal disease) on dialysis ([facility]) * LIPID PROFILE(Performed 02/26/2019) Performed for Coronary artery disease involving igiugig coronary artery of igiugig heart with angina pectoris ([facility]) * RENAL FUNCTION PANEL(Performed 02/26/2019) Performed for Other chest pain * CBC W/O DIFFERENTIAL(Performed 02/26/2019) Performed for Other chest pain * CULTURE VRE(Performed 02/25/2019) Performed for End stage renal disease on dialysis ([facility]) * CULTURE MRSA(Performed 02/25/2019) Performed for End stage renal disease on dialysis ([facility]) * CULTURE MRSA(Performed 02/25/2019) Performed for End stage renal disease on dialysis ([facility]) * TROPONIN I(Performed 02/25/2019) * HEMODIALYSIS INPATIENT(Performed 02/25/2019) * TROPONIN I(Performed 02/25/2019) * XR CHEST 1VW PORTABLE(Performed 02/25/2019) Performed for Weakness * B-TYPE NATRIURETIC PEPTIDE(Performed 02/25/2019) * PT-INR(Performed 02/25/2019) * MAGNESIUM BLOOD(Performed 02/25/2019) * COMPREHENSIVE METABOLIC PANEL(Performed 02/25/2019) * CBC W AUTO DIFFERENTIAL(Performed 02/25/2019) * TROPONIN I(Performed 02/25/2019) * EKG 12-LEAD(Performed 02/25/2019) Performed for Other chest pain * CARDIAC EKG ORDER(Performed 02/22/2019) * XR CHEST 2VW(Performed 02/21/2019) Performed for Other chest pain * COMPREHENSIVE METABOLIC PANEL(Performed 02/21/2019) * CBC W AUTO DIFFERENTIAL(Performed 02/21/2019) * TROPONIN I(Performed 02/21/2019) * EKG 12-LEAD(Performed 02/21/2019) Performed for Other chest pain * CARDIAC EKG ORDER(Performed 01/22/2019) * CT ABDOMEN PELVIS W CONTRAST(Performed 01/21/2019) Performed for LLQ pain * VAS RIGHT VENOUS DUPLEX LE(Performed 01/21/2019) Performed for Right leg pain * XR CHEST 2VW(Performed 01/21/2019) Performed for Chest pain, unspecified type * EKG 12-LEAD(Performed 01/21/2019) Performed for Chest pain, unspecified type * TROPONIN I(Performed 01/21/2019) * MAGNESIUM BLOOD(Performed 01/21/2019) * LIPASE BLOOD(Performed 01/21/2019) * COMPREHENSIVE METABOLIC PANEL(Performed 01/21/2019) * CBC W AUTO DIFFERENTIAL(Performed 01/21/2019) * D-DIMER(Performed 01/21/2019) * AMB REFERRAL TO CARDIOLOGY(Performed 01/03/2019) Performed for Typical atrial flutter (HCC), NICM (nonischemic cardiomyopathy) ([facility]) * EKG 12-LEAD(Performed 12/21/2018) Performed for Non-ischemic cardiomyopathy (HCC), Essential hypertension, Mild CAD, ESRD (end stage renal disease) ([facility]), Hypothyroidism (acquired), Atrial fibrillation, unspecified type (HCC) * US AV HEMODIALYSIS ACCESS(Performed 11/29/2018) Performed for End stage renal disease ([facility]) * PATHOLOGY TISSUE(Performed 10/09/2018) Performed for Hx of diverticulitis of colon, Colon cancer screening * DE COLONOSCOPY, DIAGNOSTIC(Performed 10/09/2018) Performed for Hx of diverticulitis of colon, Colon cancer screening * ENDOSCOPY, COLON, DIAGNOSTIC(Performed 10/09/2018) * RENAL FUNCTION PANEL(Performed 08/30/2018) Performed for End stage renal disease on dialysis ([facility]) * CBC W AUTO DIFFERENTIAL(Performed 08/30/2018) Performed for End stage renal disease on dialysis ([facility]) * CULTURE VRE(Performed 08/29/2018) * CULTURE MRSA(Performed 08/29/2018) * CULTURE MRSA(Performed 08/29/2018) * DIFFERENTIAL MANUAL(Performed 08/29/2018) Performed for End stage renal disease on dialysis ([facility]) * VANCOMYCIN LEVEL RANDOM(Performed 08/29/2018) * RENAL FUNCTION PANEL(Performed 08/29/2018) Performed for End stage renal disease on dialysis ([facility]) * CBC W AUTO DIFFERENTIAL(Performed 08/29/2018) Performed for End stage renal disease on dialysis ([facility]) * RENAL FUNCTION PANEL(Performed 08/28/2018) Performed for End stage renal disease on dialysis ([facility]) * CBC W AUTO DIFFERENTIAL(Performed 08/28/2018) Performed for End stage renal disease on dialysis ([facility]) * DIFFERENTIAL MANUAL(Performed 08/27/2018) Performed for End stage renal disease on dialysis ([facility]) * VANCOMYCIN LEVEL RANDOM(Performed 08/27/2018) * RENAL FUNCTION PANEL(Performed 08/27/2018) Performed for End stage renal disease on dialysis ([facility]) * CBC W AUTO DIFFERENTIAL(Performed 08/27/2018) Performed for End stage renal disease on dialysis ([facility]) * C DIFFICILE GDH AG + TOXIN A+B(Performed 08/26/2018) Performed for Generalized abdominal pain * HEMODIALYSIS INPATIENT(Performed 08/26/2018) * VANCOMYCIN LEVEL RANDOM(Performed 08/26/2018) * RENAL FUNCTION PANEL(Performed 08/26/2018) Performed for End stage renal disease on dialysis ([facility]) * CBC W AUTO DIFFERENTIAL(Performed 08/26/2018) Performed for End stage renal disease on dialysis ([facility]) * CULTURE BLOOD(Performed 08/25/2018) * CULTURE BLOOD(Performed 08/25/2018) * RENAL FUNCTION PANEL(Performed 08/25/2018) Performed for End stage renal disease on dialysis ([facility]) * CBC W AUTO DIFFERENTIAL(Performed 08/25/2018) Performed for End stage renal disease on dialysis ([facility]) * CT ABDOMEN PELVIS W CONTRAST(Performed 08/24/2018) Performed for Generalized abdominal pain, History of ulcer disease * ERYTHROCYTE SEDIMENTATION RATE(Performed 08/24/2018) * CULTURE BLOOD(Performed 08/24/2018) Performed for Fever, unspecified fever cause * C-REACTIVE PROTEIN(Performed 08/24/2018) * LACTIC ACID BLOOD(Performed 08/24/2018) Performed for Fever, unspecified fever cause * CBC W AUTO DIFFERENTIAL(Performed 08/24/2018) Performed for Fever, unspecified fever cause * HEPATITIS B SURFACE ANTIGEN W RFLX CONFIRMATION(Performed 08/24/2018) Performed for End stage renal disease on dialysis (HCC) * HEPATITIS B SURFACE ANTIBODY(Performed 08/24/2018) Performed for End stage renal disease on dialysis (HCC) * RENAL FUNCTION PANEL(Performed 08/24/2018) Performed for End stage renal disease on dialysis (HCC) * CBC W AUTO DIFFERENTIAL(Performed 08/24/2018) Performed for End stage renal disease on dialysis (HCC) * CULTURE BLOOD(Performed 08/24/2018) Performed for Fever, unspecified fever cause * HEMODIALYSIS INPATIENT(Performed 08/24/2018) * LACTIC ACID BLOOD(Performed 08/23/2018) Performed for Sepsis, due to unspecified organism * LACTIC ACID BLOOD(Performed 08/23/2018) Performed for Sepsis, due to unspecified organism * LACTIC ACID BLOOD(Performed 08/23/2018) Performed for Sepsis, due to unspecified organism * RENAL FUNCTION PANEL(Performed 08/23/2018) Performed for End stage renal disease on dialysis (HCC) * CBC W AUTO DIFFERENTIAL(Performed 08/23/2018) Performed for End stage renal disease on dialysis (HCC) * CULTURE BLOOD(Performed 08/22/2018) Performed for Acute diverticulitis * XR ABD OBSTR SERIES W CHEST 1VW(Performed 08/22/2018) Performed for Acute diverticulitis * CULTURE BLOOD(Performed 08/22/2018) Performed for Acute diverticulitis * CT ABDOMEN PELVIS WO CONTRAST(Performed 08/22/2018) Performed for Abdominal pain, left lower quadrant * LIPASE BLOOD(Performed 08/22/2018) * PHOSPHORUS BLOOD(Performed 08/22/2018) * MAGNESIUM BLOOD(Performed 08/22/2018) * LACTIC ACID BLOOD(Performed 08/22/2018) * COMPREHENSIVE METABOLIC PANEL(Performed 08/22/2018) * CBC W AUTO DIFFERENTIAL(Performed 08/22/2018) * PHOSPHORUS BLOOD(Performed 08/08/2018) * ALBUMIN BLOOD(Performed 08/08/2018) * BASIC METABOLIC PANEL (CALCIUM TOTAL)(Performed 08/08/2018) * HEMODIALYSIS INPATIENT(Performed 08/07/2018) * RENAL FUNCTION PANEL(Performed 08/06/2018) * CBC W AUTO DIFFERENTIAL(Performed 08/05/2018) * RENAL FUNCTION PANEL(Performed 08/05/2018) * PTH INTACT(Performed 08/04/2018) * RENAL FUNCTION PANEL(Performed 08/04/2018) * CBC W AUTO DIFFERENTIAL(Performed 08/03/2018) * FERRITIN(Performed 08/03/2018) * VITAMIN B12(Performed 08/03/2018) * FOLATE(Performed 08/03/2018) * IRON + TRANSFERRIN PANEL(Performed 08/03/2018) * HEMODIALYSIS INPATIENT(Performed 08/02/2018) * CBC W AUTO DIFFERENTIAL(Performed 08/02/2018) * BASIC METABOLIC PANEL (CALCIUM TOTAL)(Performed 08/02/2018) * CULTURE VRE(Performed 08/01/2018) * CULTURE MRSA(Performed 08/01/2018) * CULTURE MRSA(Performed 08/01/2018) * GLUCOSE - POINT OF CARE(Performed 08/01/2018) * CT ABDOMEN PELVIS W CONTRAST(Performed 08/01/2018) Performed for LLQ pain * LIPASE BLOOD(Performed 08/01/2018) * COMPREHENSIVE METABOLIC PANEL(Performed 08/01/2018) * CBC W AUTO DIFFERENTIAL(Performed 08/01/2018) * AUDIOLOGY/TYMPANOMETRY ORDER(Performed 07/18/2018) * EKG 12-LEAD(Performed 06/18/2018) Performed for PAF (paroxysmal atrial fibrillation) (HCC) * XR CHEST 2VW(Performed 05/18/2018) Performed for Pre-transplant evaluation for kidney transplant * XR PANOREX(Performed 05/18/2018) Performed for Pre-transplant evaluation for kidney transplant * CT ABDOMEN PELVIS WO CONTRAST(Performed 05/18/2018) Performed for Pre-transplant evaluation for kidney transplant * OXALATE BLOOD(Performed 05/18/2018) Performed for Pre-transplant evaluation for kidney transplant * HIV-1 HIV-2 ANTIGEN/ANTIBODY(Performed 05/18/2018) Performed for Pre-transplant evaluation for kidney transplant * PTH INTACT W/O CALCIUM(Performed 05/18/2018) Performed for Pre-transplant evaluation for kidney transplant * STRONGYLOIDES ANTIBODY IGG(Performed 05/18/2018) Performed for Pre-transplant evaluation for kidney transplant * SYPHILIS ANTIBODY CASCADING REFLEX(Performed 05/18/2018) Performed for Pre-transplant evaluation for kidney transplant * TOXOPLASMA GONDII ANTIBODY IGG(Performed 05/18/2018) Performed for Pre-transplant evaluation for kidney transplant * CANNABINOID SCREEN BLOOD(Performed 05/18/2018) Performed for Pre-transplant evaluation for kidney transplant * IRON BLOOD(Performed 05/18/2018) Performed for Pre-transplant evaluation for kidney transplant * FERRITIN(Performed 05/18/2018) Performed for Pre-transplant evaluation for kidney transplant * TRANSFERRIN(Performed 05/18/2018) Performed for Pre-transplant evaluation for kidney transplant * VITAMIN D 25-HYDROXY(Performed 05/18/2018) Performed for Pre-transplant evaluation for kidney transplant * URIC ACID BLOOD(Performed 05/18/2018) Performed for Pre-transplant evaluation for kidney transplant * OPIATES BLOOD(Performed 05/18/2018) Performed for Pre-transplant evaluation for kidney transplant * COCAINE METABOLITE BLOOD QUANT(Performed 05/18/2018) Performed for Pre-transplant evaluation for kidney transplant * AMPHETAMINE BLOOD CONFIRMATION(Performed 05/18/2018) Performed for Pre-transplant evaluation for kidney transplant * NICOTINE + METABOLITES BLOOD(Performed 05/18/2018) Performed for Pre-transplant evaluation for kidney transplant * ALCOHOL ETHYL BLOOD(Performed 05/18/2018) Performed for Pre-transplant evaluation for kidney transplant * HEMOGLOBIN A1C(Performed 05/18/2018) Performed for Pre-transplant evaluation for kidney transplant * HEPATITIS C ANTIBODY(Performed 05/18/2018) Performed for Pre-transplant evaluation for kidney transplant * HEPATITIS B SURFACE ANTIBODY(Performed 05/18/2018) Performed for Pre-transplant evaluation for kidney transplant * HEPATITIS B CORE ANTIBODY TOTAL(Performed 05/18/2018) Performed for Pre-transplant evaluation for kidney transplant * HEPATITIS B SURFACE ANTIGEN W RFLX CONFIRMATION(Performed 05/18/2018) Performed for Pre-transplant evaluation for kidney transplant * LIPID PROFILE(Performed 05/18/2018) Performed for Pre-transplant evaluation for kidney transplant * PHOSPHORUS BLOOD(Performed 05/18/2018) Performed for Pre-transplant evaluation for kidney transplant * COMPREHENSIVE METABOLIC PANEL(Performed 05/18/2018) Performed for Pre-transplant evaluation for kidney transplant * CBC W AUTO DIFFERENTIAL(Performed 05/18/2018) Performed for Pre-transplant evaluation for kidney transplant * DE INJECTION TENDON ORIGIN/INSERT(Performed 12/22/2017) Performed for Lateral epicondylitis of left elbow * VAS DIALYSIS EXIST ACCESS SCAN(Performed 12/07/2017) Performed for ESRD on dialysis (HCC) * DE DRAIN/INJECT LARGE JOINT/BURSA(Performed 12/04/2017) Performed for Primary osteoarthritis of right knee * XR KNEE RIGHT 4VW OR MORE(Performed 12/04/2017) Performed for Right knee pain, unspecified chronicity * NM MYOCARD PERF REST STRESS(Performed 11/23/2017) Performed for Essential hypertension * ECHOCARDIOGRAM 2D WITH DOPPLER(Performed 11/23/2017) Performed for PAF (paroxysmal atrial fibrillation) (HCC) * PATHOLOGY TISSUE(Performed 09/26/2017) Performed for Diagnosis unknown * COLONOSCOPY DIAGNOSTIC(Performed 09/26/2017) Performed for Diagnosis unknown * ENDOSCOPY, COLON, DIAGNOSTIC(Performed 09/26/2017) * POTASSIUM WHOLE BLD(Performed 05/09/2017) * EKG 12-LEAD(Performed 04/21/2017) Performed for Atrial fibrillation, unspecified type (HCC), Palpitations * XR ABD OBSTRUCTION SERIES 2VW(Performed 04/06/2017) * TSH(Performed 04/06/2017) * BASIC METABOLIC PANEL (CALCIUM TOTAL)(Performed 04/06/2017) * HLA ANTIBODY SCREEN LUM CLASS 2 SAB(Performed 03/20/2017) * HLA ANTIBODY SCREEN LUM CLASS 1 SAB(Performed 03/20/2017) * XR LUMBAR SPINE 2 OR 3VW(Performed 03/16/2017) * XR ELBOW LEFT 3VW OR MORE(Performed 03/16/2017) * HLA ANTIBODY SCREEN LUM CLASS 2 SAB(Performed 02/21/2017) * HLA ANTIBODY SCREEN LUM CLASS 1 SAB(Performed 02/21/2017) * AMPHETAMINE BLOOD CONFIRMATION(Performed 01/26/2017) * HLA ANTIBODY SCREEN LUM CLASS 2 SAB(Performed 12/14/2016) * HLA ANTIBODY SCREEN LUM CLASS 1 SAB(Performed 12/14/2016) * NM MYOCARD PERF REST STRESS(Performed 11/17/2016) * CANNABINOID SCREEN BLOOD(Performed 11/17/2016) * OPIATES BLOOD(Performed 11/17/2016) * HEMOGLOBIN A1C(Performed 11/17/2016) * PTH INTACT W/O CALCIUM(Performed 11/17/2016) * CBC W AUTO DIFFERENTIAL(Performed 11/17/2016) * AMPHETAMINE BLOOD CONFIRMATION(Performed 11/17/2016) * NICOTINE + METABOLITES BLOOD(Performed 11/17/2016) * COCAINE METABOLITE BLOOD QUANT(Performed 11/17/2016) * VARICELLA ZOSTER ANTIBODY IGG(Performed 11/17/2016) * RPR(Performed 11/17/2016) * FERRITIN(Performed 11/17/2016) * IRON BLOOD(Performed 11/17/2016) * TRANSFERRIN(Performed 11/17/2016) * HEPATITIS B CORE ANTIBODY TOTAL(Performed 11/17/2016) * HEPATITIS B SURFACE ANTIBODY(Performed 11/17/2016) * HEPATITIS C ANTIBODY(Performed 11/17/2016) * HEPATITIS B SURFACE ANTIGEN W RFLX CONFIRMATION(Performed 11/17/2016) * HIV-1 HIV-2 ANTIGEN/ANTIBODY(Performed 11/17/2016) * VITAMIN D 25-HYDROXY(Performed 11/17/2016) * COMPREHENSIVE METABOLIC PANEL(Performed 11/17/2016) * LIPID PROFILE(Performed 11/17/2016) * URIC ACID BLOOD(Performed 11/17/2016) * ALCOHOL ETHYL BLOOD(Performed 11/17/2016) * PHOSPHORUS BLOOD(Performed 11/17/2016) * PT-INR SLH(Performed 11/17/2016) * CBC W AUTO DIFFERENTIAL(Performed 11/17/2016) * XR PANOREX(Performed 11/17/2016) * ECHOCARDIOGRAM 2D WITH DOPPLER(Performed 11/03/2016) Performed for Chronic systolic congestive heart failure (HCC) * PATHOLOGY TISSUE(Performed 10/21/2016) * CT ABDOMEN PELVIS WO CONTRAST(Performed 10/18/2016) * CARDIAC RHYTHM STRIP ORDER(Performed 10/15/2016) * HLA XM SEROLOGIC DONOR(Performed 08/18/2016) * FLOW HLA XM DONOR(Performed 08/18/2016) * HLA ANTIBODY SCREEN LUM CLASS 2 SAB(Performed 08/08/2016) * HLA ANTIBODY SCREEN LUM CLASS 1 SAB(Performed 08/08/2016) * CARDIAC PROCEDURE ORDER(Performed 07/21/2016) * GLUCOSE - POINT OF CARE(Performed 07/16/2016) * GLUCOSE - POINT OF CARE(Performed 07/15/2016) * RENAL FUNCTION PANEL(Performed 07/15/2016) * CBC W AUTO DIFFERENTIAL(Performed 07/15/2016) * HEMODIALYSIS INPATIENT(Performed 07/15/2016) * GLUCOSE - POINT OF CARE(Performed 07/15/2016) * GLUCOSE - POINT OF CARE(Performed 07/14/2016) * GLUCOSE - POINT OF CARE(Performed 07/14/2016) * GLUCOSE - POINT OF CARE(Performed 07/14/2016) * GLUCOSE - POINT OF CARE(Performed 07/13/2016) * GLUCOSE - POINT OF CARE(Performed 07/13/2016) * EP LAB CONSULT(Performed 07/13/2016) * GLUCOSE - POINT OF CARE(Performed 07/13/2016) * LARYNGEAL MASK AIRWAY(Performed 07/13/2016) * BASIC METABOLIC PANEL (CALCIUM TOTAL)(Performed 07/13/2016) * CBC W AUTO DIFFERENTIAL(Performed 07/13/2016) * GLUCOSE - POINT OF CARE(Performed 07/12/2016) * GLUCOSE - POINT OF CARE(Performed 07/12/2016) * HEMODIALYSIS INPATIENT(Performed 07/12/2016) * PT-INR(Performed 07/12/2016) Performed for ESRD on dialysis ([facility]) * CBC W AUTO DIFFERENTIAL(Performed 07/12/2016) Performed for ESRD on dialysis ([facility]) * GLUCOSE - POINT OF CARE(Performed 07/12/2016) * GLUCOSE - POINT OF CARE(Performed 07/11/2016) * GLUCOSE - POINT OF CARE(Performed 07/11/2016) * HEMODIALYSIS INPATIENT(Performed 07/11/2016) * RENAL FUNCTION PANEL(Performed 07/11/2016) * GLUCOSE - POINT OF CARE(Performed 07/11/2016) * GLUCOSE - POINT OF CARE(Performed 07/10/2016) * GLUCOSE - POINT OF CARE(Performed 07/10/2016) * GLUCOSE - POINT OF CARE(Performed 07/10/2016) * RENAL FUNCTION PANEL(Performed 07/10/2016) * GLUCOSE - POINT OF CARE(Performed 07/09/2016) * GLUCOSE - POINT OF CARE(Performed 07/09/2016) * GLUCOSE - POINT OF CARE(Performed 07/09/2016) * GLUCOSE - POINT OF CARE(Performed 07/08/2016) * BASIC METABOLIC PANEL (CALCIUM TOTAL)(Performed 07/08/2016) * GLUCOSE - POINT OF CARE(Performed 07/08/2016) * HEMODIALYSIS INPATIENT(Performed 07/08/2016) * GLUCOSE - POINT OF CARE(Performed 07/08/2016) * GLUCOSE - POINT OF CARE(Performed 07/07/2016) * GLUCOSE - POINT OF CARE(Performed 07/07/2016) * POTASSIUM BLOOD(Performed 07/07/2016) Performed for Typical atrial flutter ([facility]) * BLOOD GASES OSMAR + LYTES GLUC CA+ HH ([facility])(Performed 07/07/2016) * EP LAB CONSULT(Performed 07/07/2016) * GLUCOSE - POINT OF CARE(Performed 07/07/2016) * GLUCOSE - POINT OF CARE(Performed 07/07/2016) * PTT(Performed 07/07/2016) * PTT(Performed 07/06/2016) * GLUCOSE - POINT OF CARE(Performed 07/06/2016) * GLUCOSE - POINT OF CARE(Performed 07/06/2016) * PTT(Performed 07/06/2016) * GLUCOSE - POINT OF CARE(Performed 07/06/2016) * COMPLETE PFT W/WO BRONCHODILATOR(Performed 07/06/2016) * HEMODIALYSIS INPATIENT(Performed 07/06/2016) * GLUCOSE - POINT OF CARE(Performed 07/06/2016) * PTT(Performed 07/06/2016) * GLUCOSE - POINT OF CARE(Performed 07/05/2016) * PT EVAL AND TREAT(Performed 07/05/2016) * PTT(Performed 07/05/2016) * HGB HCT PANEL(Performed 07/05/2016) * PTT(Performed 07/05/2016) * CBC W AUTO DIFFERENTIAL(Performed 07/05/2016) * GLUCOSE - POINT OF CARE(Performed 07/04/2016) * PTT(Performed 07/04/2016) * HEMODIALYSIS INPATIENT(Performed 07/04/2016) * PTT(Performed 07/04/2016) * GLUCOSE - POINT OF CARE(Performed 07/04/2016) * RENAL FUNCTION PANEL(Performed 07/04/2016) * CBC W AUTO DIFFERENTIAL(Performed 07/04/2016) * PTT(Performed 07/04/2016) * GLUCOSE - POINT OF CARE(Performed 07/03/2016) * PT PTT PANEL(Performed 07/03/2016) * ECHOCARDIOGRAM 2D WITH DOPPLER(Performed 07/03/2016) Performed for History of atrial fibrillation, SVT (supraventricular tachycardia) * GLUCOSE - POINT OF CARE(Performed 07/03/2016) * PT PTT PANEL(Performed 07/03/2016) * CBC W AUTO DIFFERENTIAL(Performed 07/03/2016) * GLUCOSE - POINT OF CARE(Performed 07/03/2016) * PT PTT PANEL(Performed 07/03/2016) * GLUCOSE - POINT OF CARE(Performed 07/02/2016) * PT PTT PANEL(Performed 07/02/2016) * GLUCOSE - POINT OF CARE(Performed 07/02/2016) * GLUCOSE - POINT OF CARE(Performed 07/02/2016) * RENAL FUNCTION PANEL(Performed 07/02/2016) * CBC W AUTO DIFFERENTIAL(Performed 07/02/2016) * GLUCOSE - POINT OF CARE(Performed 07/01/2016) * VAS ARTERIAL ANKLE ARM INDEX(Performed 07/01/2016) Performed for PVD (peripheral vascular disease) (HCC) * GLUCOSE - POINT OF CARE(Performed 07/01/2016) * HEPATITIS B SURFACE ANTIGEN W RFLX CONFIRMATION(Performed 07/01/2016) * HEPATITIS B SURFACE ANTIBODY QUANT(Performed 07/01/2016) * EKG 12-LEAD(Performed 07/01/2016) Performed for Chronic systolic congestive heart failure (HCC) * HEMODIALYSIS INPATIENT(Performed 07/01/2016) * GLUCOSE - POINT OF CARE(Performed 07/01/2016) * HEMOGLOBIN A1C(Performed 06/30/2016) * CULTURE VRE(Performed 06/30/2016) * CULTURE MRSA(Performed 06/30/2016) * BASIC METABOLIC PANEL (CALCIUM TOTAL)(Performed 06/30/2016) * CBC W AUTO DIFFERENTIAL(Performed 06/30/2016) * EKG 12-LEAD(Performed 06/30/2016) Performed for ESRD on dialysis (HCC) * EKG 12-LEAD(Performed 06/30/2016) Performed for Palpitations * XR CHEST 2VW(Performed 06/01/2016) * B-TYPE NATRIURETIC PEPTIDE(Performed 06/01/2016) * TROPONIN I(Performed 06/01/2016) * COMPREHENSIVE METABOLIC PANEL(Performed 06/01/2016) * CBC W AUTO DIFFERENTIAL(Performed 06/01/2016) * GLUCOSE - POINT OF CARE (AMB) SLU(Performed 06/01/2016) * GLUCOSE - POINT OF CARE (AMB) SLU(Performed 06/01/2016) * CBC W AUTO DIFFERENTIAL(Performed 06/01/2016) * GLUCOSE ACCUCHECK(Performed 06/01/2016) * EKG 12-LEAD(Performed 06/01/2016) * HLA ANTIBODY SCREEN LUM CLASS 2 SAB(Performed 05/06/2016) * HLA ANTIBODY SCREEN LUM CLASS 1 SAB(Performed 05/06/2016) * HLA ANTIBODY SCREEN LUM CLASS 2 SAB(Performed 04/08/2016) * HLA ANTIBODY SCREEN LUM CLASS 1 SAB(Performed 04/08/2016) * CULTURE AFB+SMEAR(Performed 04/08/2016) * CULTURE FUNGUS OTHER+FUNGUS SMEAR(Performed 04/08/2016) * CULTURE BRONCHOALVEOLAR LAVAGE QNT+GRAM STAIN(Performed 04/08/2016) * CYTOLOGY NON-CHEMICAL TREATMENT PLANT TECHNICIAN PANEL (STL)(Performed 04/08/2016) * DIFFERENTIAL MANUAL FLUID(Performed 04/08/2016) * CELL COUNT FLUID(Performed 04/08/2016) * CELL COUNT W DIFFERENTIAL FLUID(Performed 04/08/2016) * CYTOLOGY NON-CHEMICAL TREATMENT PLANT TECHNICIAN PANEL (STL)(Performed 04/08/2016) * CULTURE BRONCHIAL BRUSHINGS QUANT(Performed 04/08/2016) * XR CHEST 1VW PORTABLE(Performed 04/08/2016) * CULTURE AFB+SMEAR(Performed 04/08/2016) * CULTURE FUNGUS OTHER+FUNGUS SMEAR(Performed 04/08/2016) * CULTURE AEROBIC(Performed 04/08/2016) * CBC W AUTO DIFFERENTIAL(Performed 04/08/2016) * BASIC METABOLIC PANEL (CALCIUM TOTAL)(Performed 04/08/2016) * CBC W AUTO DIFFERENTIAL(Performed 04/08/2016) * XR FOOT BILAT 3VW OR MORE(Performed 03/31/2016) Performed for Foot pain, bilateral, 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, without long-term current use of insulin (HCC), Pes planus of both feet * CT CHEST WO CONTRAST(Performed 03/22/2016) * DEXA BONE DENSITY AXIAL SKELETON(Performed 01/26/2016) * HLA ANTIBODY SCREEN LUM CLASS 2 SAB(Performed 01/22/2016) * HLA ANTIBODY SCREEN LUM CLASS 1 SAB(Performed 01/22/2016) * THYROID STIMULATING IMMUNOGLOBULIN (TSI)(Performed 01/11/2016) * OPIATES BLOOD(Performed 01/11/2016) * THYROID PEROXIDASE ANTIBODY(Performed 01/11/2016) * FRUCTOSAMINE(Performed 01/11/2016) * HIV-1 HIV-2 ANTIGEN/ANTIBODY(Performed 01/11/2016) * HEPATITIS B CORE ANTIBODY TOTAL(Performed 01/11/2016) * T3 FREE(Performed 01/11/2016) * T4 FREE(Performed 01/11/2016) * TSH(Performed 01/11/2016) * HLA ANTIBODY SCREEN LUM CLASS 2 SAB(Performed 12/23/2015) * HLA ANTIBODY SCREEN LUM CLASS 1 SAB(Performed 12/23/2015) * FL CYSTOGRAM VOIDING(Performed 12/03/2015) * XR PANOREX(Performed 12/03/2015) * US RETROPERITONEAL COMPLETE(Performed 12/03/2015) * EKG 12-LEAD(Performed 12/03/2015) * BASIC METABOLIC PANEL (CALCIUM TOTAL)(Performed 11/24/2015) * DIFFERENTIAL MANUAL(Performed 11/24/2015) * CBC W AUTO DIFFERENTIAL(Performed 11/24/2015) * MAGNESIUM BLOOD(Performed 11/24/2015) * PHOSPHORUS BLOOD(Performed 11/24/2015) * CBC W AUTO DIFFERENTIAL(Performed 11/24/2015) * HEPATITIS B SURFACE ANTIBODY(Performed 11/23/2015) * HEPATITIS B CORE ANTIBODY IGM(Performed 11/23/2015) * VAS DIALYSIS EXIST ACCESS SCAN(Performed 11/23/2015) * AMPHETAMINE BLOOD CONFIRMATION(Performed 11/23/2015) * ANTIBODY IDENTIFICATION(Performed 11/23/2015) * ALEAH DIRECT(Performed 11/23/2015) * TYPE + SCREEN PANEL(Performed 11/23/2015) * CROSSMATCH RBC LEUKOREDUCED(Performed 11/23/2015) * PTH INTACT W/O CALCIUM(Performed 11/23/2015) * CALCIUM IONIZED WHOLE BLOOD(Performed 11/23/2015) * HEMOGLOBIN A1C(Performed 11/23/2015) * CANNABINOID SCREEN BLOOD(Performed 11/23/2015) * COMPREHENSIVE METABOLIC PANEL(Performed 11/23/2015) * OPIATES BLOOD(Performed 11/23/2015) * CBC W AUTO DIFFERENTIAL(Performed 11/23/2015) * NICOTINE + METABOLITES BLOOD(Performed 11/23/2015) * ALCOHOL ETHYL BLOOD(Performed 11/23/2015) * PHOSPHORUS BLOOD(Performed 11/23/2015) * MAGNESIUM BLOOD(Performed 11/23/2015) * RUBEOLA ANTIBODY IGG(Performed 11/23/2015) * RPR(Performed 11/23/2015) * HEPATITIS B SURFACE ANTIGEN W RFLX CONFIRMATION(Performed 11/23/2015) * HEPATITIS C ANTIBODY(Performed 11/23/2015) * COCAINE METABOLITE BLOOD QUANT(Performed 11/23/2015) * MUMPS ANTIBODY IGG(Performed 11/23/2015) * RUBELLA ANTIBODY IGG(Performed 11/23/2015) * CBC W AUTO DIFFERENTIAL(Performed 11/23/2015) * CBC W AUTO DIFFERENTIAL(Performed 11/22/2015) * CALCIUM IONIZED WHOLE BLOOD(Performed 11/22/2015) * BASIC METABOLIC PANEL (CALCIUM TOTAL)(Performed 11/22/2015) * PHOSPHORUS BLOOD(Performed 11/22/2015) * MAGNESIUM BLOOD(Performed 11/22/2015) * CBC W AUTO DIFFERENTIAL(Performed 11/22/2015) * GLUCOSE ACCUCHECK(Performed 11/21/2015) * TROPONIN I(Performed 11/21/2015) * TROPONIN I(Performed 11/21/2015) * BASIC METABOLIC PANEL (CALCIUM TOTAL)(Performed 11/21/2015) * PHOSPHORUS BLOOD(Performed 11/21/2015) * MAGNESIUM BLOOD(Performed 11/21/2015) * CBC W AUTO DIFFERENTIAL(Performed 11/21/2015) * CBC W AUTO DIFFERENTIAL(Performed 11/21/2015) * CALCIUM IONIZED WHOLE BLOOD(Performed 11/21/2015) * EKG 12-LEAD(Performed 11/21/2015) * CT ANGIO CHEST PULM EMBOLISM(Performed 11/20/2015) * VAS DIALYSIS EXIST ACCESS SCAN(Performed 11/20/2015) * XR CHEST 1VW PORTABLE(Performed 11/20/2015) * GREEN TOP TUBE EXTRA(Performed 11/20/2015) * CBC W AUTO DIFFERENTIAL(Performed 11/20/2015) * TROPONIN I(Performed 11/20/2015) * COMPREHENSIVE METABOLIC PANEL(Performed 11/20/2015) * PHOSPHORUS BLOOD(Performed 11/20/2015) * MAGNESIUM BLOOD(Performed 11/20/2015) * CBC W AUTO DIFFERENTIAL(Performed 11/20/2015) * ECHO COMPLETE(Performed 11/20/2015) * EKG 12-LEAD(Performed 11/20/2015) * RENAL FUNCTION PANEL(Performed 11/19/2015) * MAGNESIUM BLOOD(Performed 11/19/2015) * CBC W AUTO DIFFERENTIAL(Performed 11/19/2015) * CALCIUM IONIZED WHOLE BLOOD(Performed 11/19/2015) * CBC W AUTO DIFFERENTIAL(Performed 11/19/2015) * RENAL FUNCTION PANEL(Performed 11/18/2015) * MAGNESIUM BLOOD(Performed 11/18/2015) * GLUCOSE ACCUCHECK(Performed 11/18/2015) * PATHOLOGY TISSUE(Performed 11/18/2015) * CALCIUM IONIZED WHOLE BLOOD(Performed 11/18/2015) * T4 FREE(Performed 11/18/2015) * TSH(Performed 11/18/2015) * MAGNESIUM BLOOD(Performed 11/18/2015) * RENAL FUNCTION PANEL(Performed 11/18/2015) * CBC W AUTO DIFFERENTIAL(Performed 11/18/2015) * PTT SLH(Performed 11/18/2015) * PT-INR SLH(Performed 11/18/2015) * CBC W AUTO DIFFERENTIAL(Performed 11/18/2015) * PATHOLOGY/GENETICS HISTORICAL-ONBASE(Performed 11/18/2015) * FL ESOPHAGRAM(Performed 11/17/2015) * PT-INR SL[facility](Performed 11/17/2015) * MAGNESIUM BLOOD(Performed 11/17/2015) * RENAL FUNCTION PANEL(Performed 11/17/2015) * MAGNESIUM BLOOD(Performed 11/17/2015) * CBC W AUTO DIFFERENTIAL(Performed 11/17/2015) * CBC W AUTO DIFFERENTIAL(Performed 11/17/2015) * HLA ANTIBODY SCREEN LUM CLASS 2 SAB(Performed 11/16/2015) * HLA ANTIBODY SCREEN LUM CLASS 1 SAB(Performed 11/16/2015) * RENAL FUNCTION PANEL(Performed 11/16/2015) * MAGNESIUM BLOOD(Performed 11/16/2015) * CBC W AUTO DIFFERENTIAL(Performed 11/16/2015) * CBC W AUTO DIFFERENTIAL(Performed 11/16/2015) * RENAL FUNCTION PANEL(Performed 11/15/2015) * MAGNESIUM BLOOD(Performed 11/15/2015) * RENAL FUNCTION PANEL(Performed 11/15/2015) * MAGNESIUM BLOOD(Performed 11/15/2015) * CBC W AUTO DIFFERENTIAL(Performed 11/15/2015) * CALCIUM IONIZED WHOLE BLOOD(Performed 11/15/2015) * CBC W AUTO DIFFERENTIAL(Performed 11/15/2015) * CBC W AUTO DIFFERENTIAL(Performed 11/15/2015) * RENAL FUNCTION PANEL(Performed 11/15/2015) * MAGNESIUM BLOOD(Performed 11/15/2015) * CBC W AUTO DIFFERENTIAL(Performed 11/15/2015) * RENAL FUNCTION PANEL(Performed 11/14/2015) * MAGNESIUM BLOOD(Performed 11/14/2015) * RENAL FUNCTION PANEL(Performed 11/14/2015) * MAGNESIUM BLOOD(Performed 11/14/2015) * CALCIUM IONIZED WHOLE BLOOD(Performed 11/14/2015) * CBC W AUTO DIFFERENTIAL(Performed 11/14/2015) * CBC W AUTO DIFFERENTIAL(Performed 11/14/2015) * RENAL FUNCTION PANEL(Performed 11/14/2015) * MAGNESIUM BLOOD(Performed 11/14/2015) * HEPATITIS B SURFACE ANTIBODY QUANT(Performed 11/13/2015) * RENAL FUNCTION PANEL(Performed 11/13/2015) * MAGNESIUM BLOOD(Performed 11/13/2015) * CBC W AUTO DIFFERENTIAL(Performed 11/13/2015) * CBC W AUTO DIFFERENTIAL(Performed 11/13/2015) * CALCIUM IONIZED WHOLE BLOOD(Performed 11/13/2015) * CARDIAC PROCEDURE ORDER(Performed 11/12/2015) * RENAL FUNCTION PANEL(Performed 11/12/2015) * MAGNESIUM BLOOD(Performed 11/12/2015) * CALCIUM IONIZED WHOLE BLOOD(Performed 11/12/2015) * RENAL FUNCTION PANEL(Performed 11/12/2015) * MAGNESIUM BLOOD(Performed 11/12/2015) * MAGNESIUM BLOOD(Performed 11/12/2015) * RENAL FUNCTION PANEL(Performed 11/12/2015) * CALCIUM IONIZED WHOLE BLOOD(Performed 11/12/2015) * FERRITIN(Performed 11/12/2015) * TRANSFERRIN(Performed 11/12/2015) * IRON BLOOD(Performed 11/12/2015) * CALCIUM IONIZED WHOLE BLOOD(Performed 11/12/2015) * VITAMIN D 25-HYDROXY(Performed 11/12/2015) * RENAL FUNCTION PANEL(Performed 11/12/2015) * MAGNESIUM BLOOD(Performed 11/12/2015) * CBC W AUTO DIFFERENTIAL(Performed 11/12/2015) * CBC W AUTO DIFFERENTIAL(Performed 11/12/2015) * CALCIUM IONIZED WHOLE BLOOD(Performed 11/11/2015) * HEPATITIS B SURFACE ANTIBODY QUANT(Performed 11/11/2015) * HEPATITIS SCREEN ACUTE(Performed 11/11/2015) * CALCIUM IONIZED WHOLE BLOOD(Performed 11/11/2015) * CALCIUM IONIZED WHOLE BLOOD(Performed 11/11/2015) * RENAL FUNCTION PANEL(Performed 11/11/2015) * MAGNESIUM BLOOD(Performed 11/11/2015) * CALCIUM IONIZED WHOLE BLOOD(Performed 11/11/2015) * MAGNESIUM BLOOD(Performed 11/10/2015) * RENAL FUNCTION PANEL(Performed 11/10/2015) * CBC W AUTO DIFFERENTIAL(Performed 11/10/2015) * CBC W AUTO DIFFERENTIAL(Performed 11/10/2015) * CALCIUM IONIZED WHOLE BLOOD(Performed 11/10/2015) * CALCIUM IONIZED WHOLE BLOOD(Performed 11/10/2015) * PTH POST-OP OR ONLY(Performed 11/10/2015) * GLUCOSE ACCUCHECK(Performed 11/10/2015) * PATHOLOGY TISSUE(Performed 11/10/2015) * GLUCOSE ACCUCHECK(Performed 11/10/2015) * CROSSMATCH RBC LEUKOREDUCED(Performed 11/10/2015) * ALEAH DIRECT(Performed 11/10/2015) * TYPE + SCREEN PANEL(Performed 11/10/2015) * ANTIBODY IDENTIFICATION(Performed 11/10/2015) * PTH PRE-OP (BASELINE) OR ONLY(Performed 11/10/2015) * PATHOLOGY/GENETICS HISTORICAL-ONBASE(Performed 11/10/2015) * CARDIAC CATH(Performed 11/09/2015) * CARDIAC CATH CONSULT(Performed 11/09/2015) * PT-INR(Performed 11/09/2015) Performed for ST elevation myocardial infarction (STEMI) involving other coronary artery (HCC) * CBC W AUTO DIFFERENTIAL(Performed 11/09/2015) Performed for ST elevation myocardial infarction (STEMI) involving other coronary artery (HCC) * BASIC METABOLIC PANEL (CALCIUM TOTAL)(Performed 11/09/2015) Performed for ST elevation myocardial infarction (STEMI) involving other coronary artery (HCC) * XR CHEST 2VW(Performed 11/06/2015) * NM MYOCARD PERF REST STRESS(Performed 11/06/2015) Performed for Chronic systolic congestive heart failure (HCC) * HLA ANTIBODY SCREEN LUM CLASS 2 SAB(Performed 09/04/2015) * HLA ANTIBODY SCREEN LUM CLASS 1 SAB(Performed 09/04/2015) * HLA ANTIBODY SCREEN LUM CLASS 2 SAB(Performed 08/07/2015) * HLA ANTIBODY SCREEN LUM CLASS 1 SAB(Performed 08/07/2015) * HLA ANTIBODY SCREEN LUM CLASS 2 SAB(Performed 07/08/2015) * HLA ANTIBODY SCREEN LUM CLASS 1 SAB(Performed 07/08/2015) * HLA ANTIBODY SCREEN LUM CLASS 2 SAB(Performed 06/16/2015) * HLA ANTIBODY SCREEN LUM CLASS 1 SAB(Performed 06/16/2015) * HLA ANTIBODY SCREEN LUM CLASS 2 SAB(Performed 05/20/2015) * HLA ANTIBODY SCREEN LUM CLASS 1 SAB(Performed 05/20/2015) * IR ANGIO AV SHUNT IMAGING(Performed 05/11/2015) Performed for End stage renal disease (HCC), Dependence on hemodialysis (HCC) * HLA ANTIBODY SCREEN LUM CLASS 2 SAB(Performed 04/12/2015) * HLA ANTIBODY SCREEN LUM CLASS 1 SAB(Performed 04/12/2015) * CARDIAC ECHOCARDIOGRAM COMPLETE ORDER(Performed 03/19/2015) * HLA ANTIBODY SCREEN LUM CLASS 2 SAB(Performed 03/18/2015) * HLA ANTIBODY SCREEN LUM CLASS 1 SAB(Performed 03/18/2015) * LAB RESULTS ORDER(Performed 03/18/2015) * IMAGING/RADIOLOGY/XRAY RESULTS ORDER(Performed 03/18/2015) * HLA ANTIBODY SCREEN LUM CLASS 2 SAB(Performed 02/17/2015) * HLA ANTIBODY SCREEN LUM CLASS 1 SAB(Performed 02/17/2015) * HLA ANTIBODY SCREEN LUM CLASS 2 SAB(Performed 01/13/2015) * HLA ANTIBODY SCREEN LUM CLASS 1 SAB(Performed 01/13/2015) * HLA XM SEROLOGIC DONOR(Performed 01/13/2015) * HLA ANTIBODY SCREEN LUM CLASS 2 SAB(Performed 12/17/2014) * HLA ANTIBODY SCREEN LUM CLASS 1 SAB(Performed 12/17/2014) * HLA ANTIBODY SCREEN LUM CLASS 2 SAB(Performed 11/11/2014) * HLA ANTIBODY SCREEN LUM CLASS 1 SAB(Performed 11/11/2014) * NM MYOCARD PERF REST STRESS(Performed 11/11/2014) * US RETROPERITONEAL COMPLETE(Performed 11/11/2014) * XR PANOREX(Performed 11/11/2014) * XR CHEST 2VW(Performed 11/11/2014) * OPIATE SCREEN + CONFIRMATION URINE(Performed 11/11/2014) * OPIATES BLOOD(Performed 11/11/2014) * HLA ANTIBODY SCREEN LUM CLASS 1 ID(Performed 11/11/2014) * HLA ANTIBODY SCREEN LUM CLASS 2 ID(Performed 11/11/2014) * AMPHETAMINE BLOOD CONFIRMATION(Performed 11/11/2014) * COCAINE + METABOLITES BLOOD(Performed 11/11/2014) * NICOTINE + METABOLITES BLOOD(Performed 11/11/2014) * CANNABINOID BLOOD(Performed 11/11/2014) * RPR(Performed 11/11/2014) * PTH INTACT W/O CALCIUM(Performed 11/11/2014) * DONNY-JUAN VIRUS ANTIBODY TO VCA IGG(Performed 11/11/2014) * CYTOMEGALOVIRUS ANTIBODY IGG BLOOD(Performed 11/11/2014) * HEPATITIS A ANTIBODY(Performed 11/11/2014) * HEPATITIS B CORE ANTIBODY TOTAL(Performed 11/11/2014) * HEPATITIS B SURFACE ANTIBODY(Performed 11/11/2014) * HEPATITIS C ANTIBODY(Performed 11/11/2014) * HEPATITIS B SURFACE ANTIGEN W RFLX CONFIRMATION(Performed 11/11/2014) * HIV-1 HIV-2 ANTIGEN/ANTIBODY(Performed 11/11/2014) * HEMOGLOBIN A1C(Performed 11/11/2014) * COMPREHENSIVE METABOLIC PANEL(Performed 11/11/2014) * ALCOHOL ETHYL BLOOD(Performed 11/11/2014) * PHOSPHORUS BLOOD(Performed 11/11/2014) * LIPID PROFILE(Performed 11/11/2014) * CBC W AUTO DIFFERENTIAL(Performed 11/11/2014) * CBC W AUTO DIFFERENTIAL(Performed 11/11/2014) * EKG 12-LEAD(Performed 11/11/2014) * VASCULAR LAB ORDER(Performed 09/12/2014) * IMAGING/RADIOLOGY/XRAY RESULTS ORDER(Performed 09/12/2014) * IMAGING/RADIOLOGY/XRAY RESULTS ORDER(Performed 09/12/2014) * LAB RESULTS ORDER(Performed 09/11/2014) * CARDIAC ECHOCARDIOGRAM COMPLETE ORDER(Performed 09/10/2014) * VASCULAR LAB ORDER(Performed 07/04/2014) * VASCULAR LAB ORDER(Performed 06/27/2014) * VASCULAR LAB ORDER(Performed 06/27/2014) * CARDIAC EKG ORDER(Performed 06/27/2014) * IMAGING/RADIOLOGY/XRAY RESULTS ORDER(Performed 06/27/2014) * IMAGING/RADIOLOGY/XRAY RESULTS ORDER(Performed 06/27/2014) * CARDIAC STRESS TEST ORDER(Performed 08/08/2013) * NM CARDIAC MUGA SCAN(Performed 08/01/2013) Performed for Cardiomyopathy, idiopathic ([facility]) * CARDIAC RHYTHM STRIP ORDER(Performed 07/07/2013) * PT-INR(Performed 07/05/2013) Performed for DVT of leg (deep venous thrombosis) ([facility]) * CULTURE VRE(Performed 07/05/2013) Performed for ESRD on dialysis ([facility]) * CULTURE MRSA(Performed 07/05/2013) Performed for ESRD on dialysis ([facility]) * MAGNESIUM BLOOD(Performed 07/05/2013) Performed for MD (myocardial infarction) ([facility]), CHF (congestive heart failure) ([facility]) * RENAL FUNCTION PANEL(Performed 07/05/2013) Performed for ESRD on dialysis ([facility]) * T4 FREE(Performed 07/05/2013) Performed for Palpitations * TSH(Performed 07/05/2013) Performed for Palpitations * CBC W AUTO DIFFERENTIAL(Performed 07/05/2013) * TROPONIN I(Performed 07/05/2013) * ECHOCARDIOGRAM 2D WITH DOPPLER(Performed 07/04/2013) Performed for Chest pain, Palpitations * IP CONSULT TO CARDIOLOGY(Performed 07/04/2013) * TROPONIN I(Performed 07/04/2013) * TSH(Performed 07/04/2013) Performed for Palpitations * XR CHEST 1VW PORTABLE(Performed 07/04/2013) Performed for Chest pain * PT-INR(Performed 07/04/2013) * COMPREHENSIVE METABOLIC PANEL(Performed 07/04/2013) * CBC W AUTO DIFFERENTIAL(Performed 07/04/2013) * TROPONIN I(Performed 07/04/2013) * MAGNESIUM BLOOD(Performed 07/04/2013) * CK + CKMB PANEL(Performed 07/04/2013) * EKG 12-LEAD(Performed 07/03/2013) Performed for Chest pain * CARDIAC PROCEDURE ORDER(Performed 07/01/2013) * CARDIAC RHYTHM STRIP ORDER(Performed 06/18/2013) * GLUCOSE - POINT OF CARE(Performed 06/17/2013) * PT-INR(Performed 06/17/2013) * GLUCOSE - POINT OF CARE(Performed 06/16/2013) * GLUCOSE - POINT OF CARE(Performed 06/16/2013) * GLUCOSE - POINT OF CARE(Performed 06/16/2013) * GLUCOSE - POINT OF CARE(Performed 06/16/2013) * PTH INTACT(Performed 06/16/2013) * CBC W AUTO DIFFERENTIAL(Performed 06/16/2013) * RENAL FUNCTION PANEL(Performed 06/16/2013) * PT-INR(Performed 06/16/2013) * GLUCOSE - POINT OF CARE(Performed 06/15/2013) * PT-INR(Performed 06/15/2013) * GLUCOSE - POINT OF CARE(Performed 06/14/2013) * HOME O2 EVAL (DESATURATION SCREEN)(Performed 06/14/2013) * VAS BILATERAL VENOUS DUPLEX LE(Performed 06/14/2013) Performed for Respiratory complication, Acute respiratory failure ([facility]), MD (myocardial infarction)([facility]), Ulcer, Asthma ([facility]), Hyperlipemia, HTN (hypertension), Diabetes ([facility]), COPD (chronic obstructive pulmonary disease) ([facility]), Anemia, Arthritis, Pure Hypercholesterolemia, History of atrial fibril lation, Hypothyroidism, Morbid obesity ([facility]), DVT of leg (deep venous thrombosis) ([facility]), ESRD on dialysis ([facility]), Sleep apnea, CHF (congestive heart failure) ([facility]), Septic shock ([facility]), Pain in joint, lower leg * GLUCOSE - POINT OF CARE(Performed 06/14/2013) * BASIC METABOLIC PANEL (CALCIUM TOTAL)(Performed 06/14/2013) * CBC W AUTO DIFFERENTIAL(Performed 06/14/2013) * PT-INR(Performed 06/14/2013) * GLUCOSE - POINT OF CARE(Performed 06/13/2013) * GLUCOSE - POINT OF CARE(Performed 06/13/2013) * TRANSFUSE RED BLOOD CELL LEUKOREDUCED UNIT(S)(Performed 06/13/2013) * TRANSFUSE RED BLOOD CELL LEUKOREDUCED UNIT(S)(Performed 06/13/2013) * GLUCOSE - POINT OF CARE(Performed 06/13/2013) * HEMODIALYSIS INPATIENT(Performed 06/13/2013) * CROSSMATCH RBC LEUKOREDUCED(Performed 06/13/2013) * CROSSMATCH RBC LEUKOREDUCED(Performed 06/13/2013) * CBC W AUTO DIFFERENTIAL(Performed 06/13/2013) * RENAL FUNCTION PANEL(Performed 06/13/2013) * PT-INR(Performed 06/13/2013) * GLUCOSE - POINT OF CARE(Performed 06/12/2013) * OCCULT BLOOD FECES(Performed 06/12/2013) * GLUCOSE - POINT OF CARE(Performed 06/12/2013) * PT-INR(Performed 06/12/2013) * GLUCOSE - POINT OF CARE(Performed 06/11/2013) * CBC W AUTO DIFFERENTIAL(Performed 06/11/2013) * BASIC METABOLIC PANEL (CALCIUM TOTAL)(Performed 06/11/2013) * VANCOMYCIN LEVEL RANDOM(Performed 06/11/2013) * PT-INR(Performed 06/11/2013) * TRANSFUSE RED BLOOD CELL LEUKOREDUCED UNIT(S)(Performed 06/10/2013) * GLUCOSE - POINT OF CARE(Performed 06/10/2013) * CULTURE VRE(Performed 06/10/2013) * CULTURE MRSA(Performed 06/10/2013) * CROSSMATCH RBC LEUKOREDUCED(Performed 06/10/2013) * TYPE + SCREEN PANEL(Performed 06/10/2013) * ALEAH DIRECT(Performed 06/10/2013) * ANTIBODY IDENTIFICATION(Performed 06/10/2013) * NURSING TRANSFUSION INSTRUCTIONS(Performed 06/10/2013) * OBTAIN CONSENT FOR TRANSFUSION(Performed 06/10/2013) * GLUCOSE - POINT OF CARE(Performed 06/10/2013) * GLUCOSE - POINT OF CARE(Performed 06/10/2013) * CBC W MANUAL DIFFERENTIAL(Performed 06/10/2013) * COMPREHENSIVE METABOLIC PANEL(Performed 06/10/2013) * PT-INR(Performed 06/10/2013) * BLOOD TYPE VERIFICATION(Performed 06/10/2013) * DIFFERENTIAL MANUAL(Performed 06/10/2013) * GLUCOSE - POINT OF CARE(Performed 06/09/2013) * GLUCOSE - POINT OF CARE(Performed 06/09/2013) * CALCIUM IONIZED BLOOD POC VENOUS(Performed 06/09/2013) * RENAL FUNCTION PANEL(Performed 06/09/2013) * MAGNESIUM BLOOD(Performed 06/09/2013) * CALCIUM IONIZED BLOOD(Performed 06/09/2013) * CBC W MANUAL DIFFERENTIAL(Performed 06/09/2013) * VANCOMYCIN LEVEL RANDOM(Performed 06/09/2013) * PT-INR(Performed 06/09/2013) * DIFFERENTIAL MANUAL(Performed 06/09/2013) * GLUCOSE - POINT OF CARE(Performed 06/09/2013) * GLUCOSE - POINT OF CARE(Performed 06/08/2013) * CALCIUM IONIZED BLOOD POC VENOUS(Performed 06/08/2013) * RENAL FUNCTION PANEL(Performed 06/08/2013) * MAGNESIUM BLOOD(Performed 06/08/2013) * GLUCOSE - POINT OF CARE(Performed 06/08/2013) * CALCIUM IONIZED BLOOD(Performed 06/08/2013) * GLUCOSE - POINT OF CARE(Performed 06/08/2013) * RENAL FUNCTION PANEL(Performed 06/08/2013) * MAGNESIUM BLOOD(Performed 06/08/2013) * GLUCOSE - POINT OF CARE(Performed 06/08/2013) * CALCIUM IONIZED BLOOD(Performed 06/08/2013) * EXTUBATION(Performed 06/08/2013) * BLOOD GASES ARTERIAL POCT(Performed 06/08/2013) * BLOOD GASES ART (ISTAT)(Performed 06/08/2013) * GLUCOSE - POINT OF CARE(Performed 06/08/2013) * VANCOMYCIN LEVEL RANDOM(Performed 06/08/2013) * XR CHEST 1VW PORTABLE(Performed 06/08/2013) Performed for Acute respiratory failure (HCC) * BLOOD GASES ART + LYTES GLU CA+ HH (ISTAT)(Performed 06/08/2013) * GLUCOSE - POINT OF CARE(Performed 06/08/2013) * CALCIUM IONIZED BLOOD POC VENOUS(Performed 06/08/2013) * RENAL FUNCTION PANEL(Performed 06/08/2013) * MAGNESIUM BLOOD(Performed 06/08/2013) * CBC W AUTO DIFFERENTIAL(Performed 06/08/2013) * PT-INR(Performed 06/08/2013) * DIFFERENTIAL MANUAL(Performed 06/08/2013) * BLOOD GASES ARTERIAL POCT(Performed 06/08/2013) * GLUCOSE - POINT OF CARE(Performed 06/07/2013) * CALCIUM IONIZED BLOOD POC VENOUS(Performed 06/07/2013) * RENAL FUNCTION PANEL(Performed 06/07/2013) * MAGNESIUM BLOOD(Performed 06/07/2013) * GLUCOSE - POINT OF CARE(Performed 06/07/2013) * GLUCOSE - POINT OF CARE(Performed 06/07/2013) * SBT SAFETY ASSESS: MAY PROCEED WITH SBT(Performed 06/07/2013) * CALCIUM IONIZED BLOOD POC VENOUS(Performed 06/07/2013) * RENAL FUNCTION PANEL(Performed 06/07/2013) * MAGNESIUM BLOOD(Performed 06/07/2013) * GLUCOSE - POINT OF CARE(Performed 06/07/2013) * GLUCOSE - POINT OF CARE(Performed 06/07/2013) * BLOOD GASES ARTERIAL POCT(Performed 06/07/2013) * RENAL FUNCTION PANEL(Performed 06/07/2013) * MAGNESIUM BLOOD(Performed 06/07/2013) * VANCOMYCIN LEVEL RANDOM(Performed 06/07/2013) * PT-INR(Performed 06/07/2013) * BLOOD GASES ART + LYTES GLU CA+ HH (ISTAT)(Performed 06/07/2013) * GLUCOSE - POINT OF CARE(Performed 06/07/2013) * RENAL FUNCTION PANEL(Performed 06/06/2013) * MAGNESIUM BLOOD(Performed 06/06/2013) * CALCIUM IONIZED BLOOD POC VENOUS(Performed 06/06/2013) * GLUCOSE - POINT OF CARE(Performed 06/06/2013) * GLUCOSE - POINT OF CARE(Performed 06/06/2013) * RENAL FUNCTION PANEL(Performed 06/06/2013) * MAGNESIUM BLOOD(Performed 06/06/2013) * XR CHEST 1VW PORTABLE(Performed 06/06/2013) Performed for Acute respiratory failure (HCC) * GLUCOSE - POINT OF CARE(Performed 06/06/2013) * GLUCOSE - POINT OF CARE(Performed 06/06/2013) * XR CHEST 1VW PORTABLE(Performed 06/06/2013) Performed for Acute respiratory failure (HCC) * BLOOD GASES ART (ISTAT)(Performed 06/06/2013) * PHOSPHORUS BLOOD(Performed 06/06/2013) * MAGNESIUM BLOOD(Performed 06/06/2013) * BASIC METABOLIC PANEL (CALCIUM TOTAL)(Performed 06/06/2013) * CBC W AUTO DIFFERENTIAL(Performed 06/06/2013) * PT-INR(Performed 06/06/2013) * BLOOD GASES ARTERIAL POCT(Performed 06/06/2013) * GLUCOSE - POINT OF CARE(Performed 06/06/2013) * VANCOMYCIN LEVEL RANDOM(Performed 06/05/2013) * GLUCOSE - POINT OF CARE(Performed 06/05/2013) * BLOOD GASES ART (ISTAT)(Performed 06/05/2013) * BLOOD GASES ARTERIAL POCT(Performed 06/05/2013) * BLOOD GASES ARTERIAL POCT(Performed 06/05/2013) * BLOOD GASES ART (ISTAT)(Performed 06/05/2013) * PT-INR(Performed 06/05/2013) * GLUCOSE - POINT OF CARE(Performed 06/05/2013) * XR CHEST 1VW PORTABLE(Performed 06/05/2013) Performed for Respiratory complication, Acute respiratory failure (HCC) * GLUCOSE - POINT OF CARE(Performed 06/05/2013) * MAGNESIUM BLOOD(Performed 06/05/2013) * PHOSPHORUS BLOOD(Performed 06/05/2013) * COMPREHENSIVE METABOLIC PANEL(Performed 06/05/2013) * CBC W AUTO DIFFERENTIAL(Performed 06/05/2013) * BLOOD GASES ARTERIAL POCT(Performed 06/05/2013) * BLOOD GASES ART (ISTAT)(Performed 06/05/2013) * BLOOD GASES ARTERIAL POCT(Performed 06/05/2013) * GLUCOSE - POINT OF CARE(Performed 06/04/2013) * GLUCOSE - POINT OF CARE(Performed 06/04/2013) * CT CHEST ABDOMEN PELVIS W CONT(Performed 06/04/2013) Performed for Septic shock (HCC) * GLUCOSE - POINT OF CARE(Performed 06/04/2013) * IP CONSULT TO CARDIOLOGY(Performed 06/04/2013) * GLUCOSE - POINT OF CARE(Performed 06/04/2013) * ECHOCARDIOGRAM TRANSESOPHAGEAL(Performed 06/04/2013) Performed for Respiratory complication, Acute respiratory failure (HCC), MD (myocardial infarction)(HCC), Ulcer, Asthma (HCC), Hyperlipemia, HTN (hypertension), Diabetes (HCC), COPD (chronic obstructive pulmonary disease) (HCC), Anemia, Arthritis, Pure Hypercholesterolemia, History of atrial fibril lation, Hypothyroidism, Morbid obesity (HCC), DVT of leg (deep venous thrombosis) (HCC), ESRD on dialysis (HCC), Sleep apnea, CHF (congestive heart failure) (HCC), Septic shock (HCC) * XR CHEST 1VW PORTABLE(Performed 06/04/2013) Performed for Respiratory complication * BLOOD GASES ART (ISTAT)(Performed 06/04/2013) * BLOOD GASES ARTERIAL POCT(Performed 06/04/2013) * GLUCOSE - POINT OF CARE(Performed 06/04/2013) * PT-INR(Performed 06/04/2013) * CBC W AUTO DIFFERENTIAL(Performed 06/04/2013) * RENAL FUNCTION PANEL(Performed 06/04/2013) * TROPONIN I(Performed 06/04/2013) * HEPATIC FUNCTION PANEL(Performed 06/04/2013) * GLUCOSE - POINT OF CARE(Performed 06/03/2013) * T4 TOTAL(Performed 06/03/2013) * TSH(Performed 06/03/2013) * PHOSPHORUS BLOOD(Performed 06/03/2013) * MAGNESIUM BLOOD(Performed 06/03/2013) * BASIC METABOLIC PANEL (CALCIUM TOTAL)(Performed 06/03/2013) * EKG 12-LEAD(Performed 06/03/2013) Performed for HTN (hypertension) * BLOOD GASES ARTERIAL POCT(Performed 06/03/2013) * BLOOD GASES ART (ISTAT)(Performed 06/03/2013) * GLUCOSE - POINT OF CARE(Performed 06/03/2013) * VANCOMYCIN LEVEL RANDOM(Performed 06/03/2013) * TROPONIN I(Performed 06/03/2013) * EKG 12-LEAD(Performed 06/03/2013) Performed for MD (myocardial infarction) (HCC) * GLUCOSE - POINT OF CARE(Performed 06/03/2013) * MAGNESIUM BLOOD(Performed 06/03/2013) * ECHOCARDIOGRAM 2D WITH DOPPLER(Performed 06/03/2013) Performed for Respiratory complication, Acute respiratory failure (HCC), MD (myocardial infarction)(HCC), Ulcer, Asthma (HCC), Hyperlipemia, HTN (hypertension), Diabetes (HCC), COPD (chronic obstructive pulmonary disease) (HCC), Anemia, Arthritis, Pure Hypercholesterolemia, History of atrial fibril lation, Hypothyroidism, Morbid obesity (HCC), DVT of leg (deep venous thrombosis) (HCC), ESRD on dialysis (HCC), Sleep apnea, CHF (congestive heart failure) (HCC) * CULTURE SPUTUM+GRAM STAIN(Performed 06/03/2013) * GLUCOSE - POINT OF CARE(Performed 06/03/2013) * VAS LEFT ARTERIAL DUPLEX UE(Performed 06/03/2013) Performed for Respiratory complication, Acute respiratory failure (HCC), MD (myocardial infarction)(HCC), Ulcer, Asthma (HCC), Hyperlipemia, HTN (hypertension), Diabetes (HCC), COPD (chronic obstructive pulmonary disease) (HCC), Anemia, Arthritis, Pure Hypercholesterolemia, History of atrial fibril lation, Hypothyroidism, Morbid obesity (HCC), DVT of leg (deep venous thrombosis) (HCC), ESRD on dialysis (HCC), Sleep apnea, CHF (congestive heart failure) (HCC) * GLUCOSE - POINT OF CARE(Performed 06/03/2013) * XR CHEST 1VW PORTABLE(Performed 06/03/2013) Performed for Acute respiratory failure ([facility]) * BLOOD GASES ARTERIAL POCT(Performed 06/03/2013) * BLOOD GASES ART (ISTAT)(Performed 06/03/2013) * GLUCOSE - POINT OF CARE(Performed 06/03/2013) * COMPREHENSIVE METABOLIC PANEL(Performed 06/03/2013) * PT-INR(Performed 06/03/2013) * CBC W AUTO DIFFERENTIAL(Performed 06/03/2013) * CULTURE BLOOD(Performed 06/03/2013) * CULTURE BLOOD(Performed 06/03/2013) * GLUCOSE - POINT OF CARE(Performed 06/02/2013) * GLUCOSE - POINT OF CARE(Performed 06/02/2013) * CULTURE BLOOD(Performed 06/02/2013) * GLUCOSE - POINT OF CARE(Performed 06/02/2013) * CULTURE BLOOD(Performed 06/02/2013) * HEMODIALYSIS INPATIENT(Performed 06/02/2013) * XR CHEST 1VW PORTABLE(Performed 06/02/2013) Performed for Respiratory complication, Acute respiratory failure ([facility]), MD (myocardial infarction)([facility]), Ulcer, Asthma ([facility]), Hyperlipemia, HTN (hypertension), Diabetes ([facility]), COPD (chronic obstructive pulmonary disease) ([facility]), Anemia, Arthritis, Pure Hypercholesterolemia, History of atrial fibril lation, Hypothyroidism, Morbid obesity ([facility]), DVT of leg (deep venous thrombosis) ([facility]), ESRD on dialysis (H[facility]), Sleep apnea, CHF (congestive heart failure) ([facility]) * GLUCOSE - POINT OF CARE(Performed 06/02/2013) * BLOOD GASES ART ([facility])(Performed 06/02/2013) * PT PTT PANEL(Performed 06/02/2013) * CBC W AUTO DIFFERENTIAL(Performed 06/02/2013) * BASIC METABOLIC PANEL (CALCIUM TOTAL)(Performed 06/02/2013) * HEMOGLOBIN A1C(Performed 06/02/2013) * BLOOD GASES ARTERIAL POCT(Performed 06/02/2013) * BLOOD GASES ARTERIAL POCT(Performed 06/02/2013) * GLUCOSE - POINT OF CARE(Performed 06/01/2013) * BLOOD GASES ART ([facility])(Performed 06/01/2013) * BLOOD GASES ARTERIAL POCT(Performed 06/01/2013) * GLUCOSE - POINT OF CARE(Performed 06/01/2013) * BLOOD GASES ARTERIAL POCT(Performed 06/01/2013) * BLOOD GASES ART ([facility])(Performed 06/01/2013) * CULTURE BLOOD(Performed 06/01/2013) * TROPONIN I(Performed 06/01/2013) * BLOOD GASES ART ([facility])(Performed 06/01/2013) * BLOOD GASES ARTERIAL POCT(Performed 06/01/2013) * BLOOD GAS ART+LACTATE POC NOTIFICATION(Performed 06/01/2013) * BLOOD GASES ARTERIAL POCT(Performed 06/01/2013) * CULTURE VRE(Performed 06/01/2013) * CULTURE MRSA(Performed 06/01/2013) * TROPONIN I(Performed 06/01/2013) * HEMODIALYSIS INPATIENT(Performed 06/01/2013) * XR CHEST 1VW PORTABLE(Performed 06/01/2013) Performed for Respiratory complication * BLOOD GASES ART + LYTES GLU CA+ HH ([facility])(Performed 06/01/2013) * EKG 12-LEAD(Performed 06/01/2013) Performed for Respiratory complication * CULTURE BLOOD(Performed 06/01/2013) * CULTURE BLOOD(Performed 06/01/2013) * TROPONIN I(Performed 06/01/2013) * LACTIC ACID BLOOD(Performed 06/01/2013) * PT-INR(Performed 06/01/2013) * B-TYPE NATRIURETIC PEPTIDE(Performed 06/01/2013) * COMPREHENSIVE METABOLIC PANEL(Performed 06/01/2013) * CBC W AUTO DIFFERENTIAL(Performed 06/01/2013) * LACTIC ACID BLOOD POC ARTERIAL(Performed 06/01/2013) * PT PTT PANEL(Performed 05/31/2013) * EKG 12-LEAD(Performed 05/30/2013) Performed for Tachycardia, unspecified, Supratherapeutic INR * EKG 12-LEAD(Performed 05/30/2013) Performed for Tachycardia, unspecified * BASIC METABOLIC PANEL (CALCIUM TOTAL)(Performed 05/30/2013) * CBC W AUTO DIFFERENTIAL(Performed 05/30/2013) * LAB RESULTS ORDER(Performed 04/30/2013) * CARDIAC RHYTHM STRIP ORDER(Performed 03/31/2013) * XR FEMUR LEFT 2VW(Performed 03/29/2013) Performed for Bone fracture * XR HIP LEFT 1VW(Performed 03/29/2013) Performed for Bone fracture * GLUCOSE - POINT OF CARE(Performed 03/29/2013) * GLUCOSE - POINT OF CARE(Performed 03/29/2013) * RENAL FUNCTION PANEL(Performed 03/29/2013) * GLUCOSE - POINT OF CARE(Performed 03/29/2013) * PTT(Performed 03/29/2013) * PT-INR(Performed 03/29/2013) * CBC W AUTO DIFFERENTIAL(Performed 03/29/2013) * GLUCOSE - POINT OF CARE(Performed 03/28/2013) * GLUCOSE - POINT OF CARE(Performed 03/28/2013) * GLUCOSE - POINT OF CARE(Performed 03/28/2013) * PTT(Performed 03/28/2013) * GLUCOSE - POINT OF CARE(Performed 03/28/2013) * PT-INR(Performed 03/28/2013) * PTT(Performed 03/28/2013) * GLUCOSE - POINT OF CARE(Performed 03/27/2013) * PTT(Performed 03/27/2013) * GLUCOSE - POINT OF CARE(Performed 03/27/2013) * GLUCOSE - POINT OF CARE(Performed 03/27/2013) * PTT(Performed 03/27/2013) * GLUCOSE - POINT OF CARE(Performed 03/27/2013) * PTT(Performed 03/27/2013) * PT-INR(Performed 03/27/2013) * PTT(Performed 03/26/2013) * GLUCOSE - POINT OF CARE(Performed 03/26/2013) * GLUCOSE - POINT OF CARE(Performed 03/26/2013) * PTT(Performed 03/26/2013) * GLUCOSE - POINT OF CARE(Performed 03/26/2013) * GLUCOSE - POINT OF CARE(Performed 03/26/2013) * CBC W AUTO DIFFERENTIAL(Performed 03/26/2013) * PT-INR(Performed 03/26/2013) * PTT(Performed 03/26/2013) * TRANSFUSE RED BLOOD CELL LEUKOREDUCED UNIT(S)(Performed 03/26/2013) * GLUCOSE - POINT OF CARE(Performed 03/25/2013) * GLUCOSE - POINT OF CARE(Performed 03/25/2013) * GLUCOSE - POINT OF CARE(Performed 03/25/2013) * OCCULT BLOOD FECES(Performed 03/25/2013) * CROSSMATCH RBC LEUKOREDUCED(Performed 03/25/2013) * ANTIBODY IDENTIFICATION(Performed 03/25/2013) * BLOOD TYPE ABO+ RH PANEL(Performed 03/25/2013) * CROSSMATCH RBC LEUKOREDUCED(Performed 03/25/2013) * RENAL FUNCTION PANEL(Performed 03/25/2013) * GLUCOSE - POINT OF CARE(Performed 03/25/2013) * BASIC METABOLIC PANEL (CALCIUM TOTAL)(Performed 03/25/2013) * CBC W AUTO DIFFERENTIAL(Performed 03/25/2013) * PT-INR(Performed 03/25/2013) * PTT(Performed 03/25/2013) * GLUCOSE - POINT OF CARE(Performed 03/24/2013) * GLUCOSE - POINT OF CARE(Performed 03/24/2013) * GLUCOSE - POINT OF CARE(Performed 03/24/2013) * PT-INR(Performed 03/24/2013) * PTT(Performed 03/24/2013) * BASIC METABOLIC PANEL (CALCIUM TOTAL)(Performed 03/24/2013) * CBC W AUTO DIFFERENTIAL(Performed 03/24/2013) * GLUCOSE - POINT OF CARE(Performed 03/23/2013) * PTT(Performed 03/23/2013) * GLUCOSE - POINT OF CARE(Performed 03/23/2013) * PTT(Performed 03/23/2013) * GLUCOSE - POINT OF CARE(Performed 03/23/2013) * GLUCOSE - POINT OF CARE(Performed 03/23/2013) * PTT(Performed 03/23/2013) * RENAL FUNCTION PANEL(Performed 03/23/2013) * CBC W AUTO DIFFERENTIAL(Performed 03/23/2013) * PT-INR(Performed 03/23/2013) * CULTURE BLOOD(Performed 03/23/2013) * URINE MICROSCOPIC ONLY REFLEX TO CULTURE(Performed 03/23/2013) * URINALYSIS REFLEX MICROSCOPIC REFLEX CULTURE(Performed 03/23/2013) * CULTURE URINE(Performed 03/23/2013) * CULTURE BLOOD(Performed 03/22/2013) * PTT(Performed 03/22/2013) * XR CHEST 1VW PORTABLE(Performed 03/22/2013) Performed for ESRD (end stage renal disease) (HCC) * GLUCOSE - POINT OF CARE(Performed 03/22/2013) * GLUCOSE - POINT OF CARE(Performed 03/22/2013) * PTT(Performed 03/22/2013) * CBC W AUTO DIFFERENTIAL(Performed 03/22/2013) * RENAL FUNCTION PANEL(Performed 03/22/2013) * GLUCOSE - POINT OF CARE(Performed 03/22/2013) * GLUCOSE - POINT OF CARE(Performed 03/22/2013) * PT PTT PANEL(Performed 03/22/2013) * PTT(Performed 03/22/2013) * GLUCOSE - POINT OF CARE(Performed 03/21/2013) * PTT(Performed 03/21/2013) * GLUCOSE - POINT OF CARE(Performed 03/21/2013) * GLUCOSE - POINT OF CARE(Performed 03/21/2013) * PTT(Performed 03/21/2013) * GLUCOSE - POINT OF CARE(Performed 03/21/2013) * BLOOD TYPE VERIFICATION(Performed 03/21/2013) Performed for ESRD (end stage renal disease) ([facility]) * CORTISOL BLOOD(Performed 03/21/2013) * PT PTT PANEL(Performed 03/21/2013) * RENAL FUNCTION PANEL(Performed 03/21/2013) * CBC W AUTO DIFFERENTIAL(Performed 03/21/2013) * GLUCOSE - POINT OF CARE(Performed 03/20/2013) * PTT(Performed 03/20/2013) * PT PTT PANEL(Performed 03/20/2013) * GLUCOSE - POINT OF CARE(Performed 03/20/2013) * VAS BILATERAL VENOUS DUPLEX LE(Performed 03/20/2013) Performed for ESRD (end stage renal disease) ([facility]) * RENAL FUNCTION PANEL(Performed 03/20/2013) * GLUCOSE - POINT OF CARE(Performed 03/19/2013) * GLUCOSE - POINT OF CARE(Performed 03/19/2013) * XR CHEST 2VW(Performed 03/19/2013) Performed for ESRD (end stage renal disease) ([facility]) * GLUCOSE - POINT OF CARE(Performed 03/19/2013) * TSH(Performed 03/19/2013) * RENAL FUNCTION PANEL(Performed 03/19/2013) * GLUCOSE - POINT OF CARE(Performed 03/18/2013) * HEMODIALYSIS INPATIENT(Performed 03/18/2013) * GLUCOSE - POINT OF CARE(Performed 03/18/2013) * RENAL FUNCTION PANEL(Performed 03/18/2013) * CBC W AUTO DIFFERENTIAL(Performed 03/18/2013) Performed for ESRD (end stage renal disease) ([facility]) * GLUCOSE - POINT OF CARE(Performed 03/17/2013) * POTASSIUM BLOOD(Performed 03/17/2013) * HEMODIALYSIS INPATIENT(Performed 03/17/2013) * EKG 12-LEAD(Performed 03/17/2013) Performed for ESRD (end stage renal disease) ([facility]) * CBC W AUTO DIFFERENTIAL(Performed 03/17/2013) Performed for ESRD (end stage renal disease) ([facility]) * RENAL FUNCTION PANEL(Performed 03/17/2013) Performed for ESRD (end stage renal disease) ([facility]) * TSH(Performed 03/17/2013) Performed for ESRD (end stage renal disease) ([facility]) * CBC W AUTO DIFFERENTIAL(Performed 03/16/2013) Performed for ESRD (end stage renal disease) ([facility]) * GLUCOSE - POINT OF CARE(Performed 03/16/2013) * HEMODIALYSIS INPATIENT(Performed 03/16/2013) Performed for ESRD (end stage renal disease) ([facility]) * GLUCOSE - POINT OF CARE(Performed 03/15/2013) * GLUCOSE - POINT OF CARE(Performed 03/15/2013) * REVISION ARTERIOVENOUS (AV) FISTULA/GRAFT(Performed 03/15/2013) Performed for End stage renal disease ([facility]) * POTASSIUM BLOOD(Performed 03/15/2013) Performed for ESRD (end stage renal disease) ([facility]) * GLUCOSE - POINT OF CARE(Performed 03/15/2013) * CARDIAC RHYTHM STRIP ORDER(Performed 03/07/2013) * RENAL FUNCTION PANEL(Performed 03/04/2013) * CBC W AUTO DIFFERENTIAL(Performed 03/04/2013) * LIPID PROFILE(Performed 03/04/2013) * EEG AWAKE OR DROWSY ROUTINE(Performed 03/03/2013) * XR CHEST 2VW(Performed 03/03/2013) Performed for SOB (shortness of breath) * MRI BRAIN WO CONTRAST(Performed 03/02/2013) Performed for Dysarthria * NM MYOCARD PERF REST STRESS(Performed 03/02/2013) Performed for Acute myocardial infarction, subendocardial infarction, episode of care unspecified ([facility]) * RENAL FUNCTION PANEL(Performed 03/02/2013) * TSH(Performed 03/02/2013) * HEMOGLOBIN A1C(Performed 03/02/2013) * ECHOCARDIOGRAM 2D WITH DOPPLER(Performed 03/01/2013) Performed for SOB (shortness of breath) * HEPATITIS B SURFACE ANTIBODY QUANT(Performed 03/01/2013) * HEPATITIS B SURFACE ANTIGEN W RFLX CONFIRMATION(Performed 03/01/2013) * TROPONIN I(Performed 03/01/2013) * URINALYSIS REFLEX MICROSCOPIC REFLEX CULTURE(Performed 02/28/2013) * CULTURE URINE(Performed 02/28/2013) * TROPONIN I(Performed 02/28/2013) * XR CHEST 2VW(Performed 02/28/2013) Performed for SOB (shortness of breath) * B-TYPE NATRIURETIC PEPTIDE(Performed 02/28/2013) * TROPONIN I(Performed 02/28/2013) * COMPREHENSIVE METABOLIC PANEL(Performed 02/28/2013) * CBC W AUTO DIFFERENTIAL(Performed 02/28/2013) * EKG 12-LEAD(Performed 02/28/2013) Performed for SOB (shortness of breath) * IR ANGIO AV SHUNT IMAGING(Performed 01/03/2013) Performed for End stage renal disease (HCC) * HLA ANTIBODY SCREEN LUM CLASS 1 ID(Performed 12/17/2012) * HLA ANTIBODY SCREEN LUM CLASS 2 ID(Performed 12/17/2012) * EKG 12-LEAD(Performed 12/12/2012) * HLA ANTIBODY SCREEN LUM CLASS 1 ID(Performed 11/19/2012) * HLA ANTIBODY SCREEN LUM CLASS 2 ID(Performed 11/19/2012) * HLA ANTIBODY SCREEN LUM CLASS 2 SAB(Performed 10/19/2012) * HLA ANTIBODY SCREEN LUM CLASS 1 SAB(Performed 10/19/2012) * HLA ANTIBODY SCREEN LUM CLASS 2 SAB(Performed 09/19/2012) * HLA ANTIBODY SCREEN LUM CLASS 1 SAB(Performed 09/19/2012) * IR ANGIO AV SHUNT IMAGING(Performed 08/02/2012) Performed for End stage renal disease (HCC) * BASIC METABOLIC PANEL (CALCIUM TOTAL)(Performed 07/27/2012) * PT-INR [facility](Performed 07/27/2012) * CBC W AUTO DIFFERENTIAL(Performed 07/27/2012) * CCL CARDIAC CATH LEFT HEART ONLY(Performed 07/27/2012) * EKG 12-LEAD(Performed 07/23/2012) * ABO TYPE: RETYPE-PATIENT RESULT ONLY(Performed 06/19/2012) * HLA XM SEROLOGIC AUTO(Performed 06/19/2012) * HLA ANTIBODY SCREEN LUM CLASS 2 ID(Performed 06/19/2012) * HLA ANTIBODY SCREEN LUM CLASS 1 ID(Performed 06/19/2012) * HLA TYPING A,B,C MULTIPLE ANTIGEN(Performed 06/19/2012) * HLA TYPING CLASS II (DR,DQ) DNA(Performed 06/19/2012) * HLA TYPING CLASS I (A,B,C) DNA(Performed 06/19/2012) * HLA TYPING CLASS II (DR,DQ) DNA(Performed 06/19/2012) * ANTIBODY IDENTIFICATION(Performed 06/19/2012) * ALEAH DIRECT(Performed 06/19/2012) * TYPE + SCREEN PANEL(Performed 06/19/2012) * NICOTINE + METABOLITES BLOOD(Performed 06/19/2012) * OPIATES BLOOD(Performed 06/19/2012) * COCAINE METABOLITE BLOOD QUANT(Performed 06/19/2012) * SYNTHETIC CANNABINOID BLOOD(Performed 06/19/2012) * AMPHETAMINES BLOOD(Performed 06/19/2012) * CYTOMEGALOVIRUS ANTIBODY IGG BLOOD(Performed 06/19/2012) * C-PEPTIDE(Performed 06/19/2012) * HEPATITIS A ANTIBODY(Performed 06/19/2012) * RPR(Performed 06/19/2012) * HEMOGLOBIN A1C(Performed 06/19/2012) * HIV-1 HIV-2 ANTIGEN/ANTIBODY(Performed 06/19/2012) * HEPATITIS C ANTIBODY(Performed 06/19/2012) * HEPATITIS B SURFACE ANTIGEN W RFLX CONFIRMATION(Performed 06/19/2012) * HEPATITIS B SURFACE ANTIBODY(Performed 06/19/2012) * HEPATITIS B CORE ANTIBODY TOTAL(Performed 06/19/2012) * HEPATITIS B CORE ANTIBODY IGM(Performed 06/19/2012) * PTH INTACT W/O CALCIUM(Performed 06/19/2012) * CBC W AUTO DIFFERENTIAL(Performed 06/19/2012) * PHOSPHORUS BLOOD(Performed 06/19/2012) * LIPID PROFILE(Performed 06/19/2012) * ALCOHOL ETHYL BLOOD(Performed 06/19/2012) * COMPREHENSIVE METABOLIC PANEL(Performed 06/19/2012) * CULTURE URINE(Performed 06/19/2012) * XR CHEST 2VW(Performed 06/19/2012) * ECHO DOPPLER ONLY(Performed 06/19/2012) * ECHO STRESS W DOBUTAMINE(Performed 06/19/2012) * IR ANGIO AV SHUNT IMAGING(Performed 04/20/2011) * IR CENTRAL LINE REMOVAL(Performed 07/02/2010) Performed for ESRD (end stage renal disease) (HCC) * IR REPL MILKA CVC WO PT/PP SAME ACC(Performed 03/03/2010) Performed for ESRD (end stage renal disease) (HCC) * IR INSERT MILKA CVC WO PT/PP 5+YRS(Performed 02/03/2010) Performed for ESRD (end stage renal disease) (HCC) * IR CENTRAL LINE REMOVAL(Performed 02/02/2010) Performed for ESRD (end stage renal disease) (HCC) * IR ANGIO AV SHUNT IMAGING(Performed 01/26/2010) Performed for ESRD (end stage renal disease) (HCC) * IR ANGIO AV SHUNT IMAGING(Performed 01/19/2010) Performed for ESRD (end stage renal disease) (HCC) * CARDIAC RHYTHM STRIP ORDER(Performed 11/17/2009) * LAB RESULTS ORDER(Performed 11/17/2009) * POTASSIUM BLOOD(Performed 11/12/2009) * GLUCOSE - POINT OF CARE(Performed 11/12/2009) Results * ECHO JAE COMPLETE W 3D (03/22/2024 1:48 PM HEARING AID FITTER) Only the most recent of2 resultswithin the time period is included. MV pk maryam regurg 419.135 cm/s SSM CV FUJI PACS MR VTI 172.886 cm SSM CV FUJ I PACS Anatomical Region Laterality Modality Ultrasound 03/22/2024 12:5 6 PM HEARING AID FITTER Narrative 03/22/2024 5:03 PM HEARING AID FITTER Summary ??* Watchman device is well positioned [...] with abdominal pressure is negative for a zhuxb-dy-cncb shunt. ??* There is moderate mitral valve regurgitation. ??* The ascending aorta is mildly dilated at 3.8 cm. ??* Atherosclerotic plaque in the thoracic aortic arch and descending aorta. Patient Info Name: ? Moy Tobin Age: ? 68 years : ? 1955 Gender: ? Female Accession #: ? [id number] Ht: ? 62 in Wt: ? 162 lb BSA: ? 1.82 m2 BP: ? 135 / ? 83 mmHg Exam Date: ? 03/22/2024 12:56 PM Patient Status: ? MDB Study Site: ? [facility] Primary Location: ? [id number] EStudy Info Technical Quality: ? Good Exam [...] Bahman Ann Attending Physician: ? Bahman Ann Schedule Manager: ? Falguni Belle Nurse: ? Pura Titus Noones Performing Physician: ? Bahman Ann Medications ??* [...] with abdominal pressure is negative for a jvczg-xs-ydkt shunt. Atrial Appendage ??Watchman device is well [...] and with abdominal pressureis negative for a sguuc-oj-idiv shunt. * There is moderate mitral valve regurgitation. * The ascending aorta is mildly dilated at 3.8 cm. * Atherosclerotic plaque in the thoracic aortic arch and descendingaorta. Patient Info Name: Moy Tobin Age: 68 years : 1955 Gender: Female Ht: 62 in Wt: 162 lb BSA: 1.82 m2 BP: 135 / 83 mmHg Exam Date: 03/22/2024 12:56 PM Patient Status: MDB Study Site: [facility] Primary Location: [facility] EStudy Info Technical Quality: Good Exam Type: [...] Provider: Bahman Ann Attending Physician: Bahman Ann Schedule Manager: Falguni Belle Nurse: Pura Cox Performing Physician: [...] andwith abdominal pressure is negative for a bwrpk-nh-fzix shunt. Atrial Appendage Watchman device is well [...] Bahman Ann MD ECHO CUPID * CCL EDGER TAILER DIAGNOSTIC JAE (03/22/2024 1:25 PM HEARING AID FITTER) Only the most recent of4 resultswithin the time period is included. Anatomical Region Laterality Modality X-Ray Angiograph y Narrative 03/22/2024 1:37 PM HEARING AID FITTER This case was auto-finalized by a system utility. The result for this JAE exam is stored on the other JAE procedure. Please see the other line in chart review for the result. Bahman Ann MD CV CARDIAC CATH CUPID PROCS * CARDIAC EKG ORDER (03/19/2024 11:00 AM HEARING AID FITTER) Only the most recent of8 resultswithin the time period is included. Narrative 03/19/2024 11:00 AM HEARING AID FITTER Ordered by an unspecified provider. Scanned Document CARDIAC SERVICES ORD ERABLES * XR CHEST 2VW (03/16/2024 4:57 PM HEARING AID FITTER) Only the most recent of15 resultswithin the time period is included. Anatomical Region Laterality Modality Chest Digital Radiogra phy 03/16/2024 5:02 PM HEARING AID FITTER Impressions 03/16/2024 11:43 PM HEARING AID FITTER IMPRESSION: There is a right IJ approach [...] hernia. > Dictated by Ariel Crain DO (Die Grinder), 03/16/2024 5:05 PM. Iris Bran MD have personally reviewed and interpreted this examination/study. > Interpreting Provider: Iris Carbajal MD on 03/16/2024 11:43 PM Narrative 03/16/2024 11:43 PM HEARING AID FITTER PROCEDURE: ??XR CHEST 2VW, DATE/TIME OF EXAM: ??03/16/2024 4:58 PM, LOCATION [facility] INDICATION: R05.1: Acute cough ADDITIONAL CLINICAL INFORMATION: Ordering Provider Reason For Exam: ??r/o pneumonia COMPARISON: Chest x-ray 10/09/2023 Procedure Note Iris Carbajal MD - 03/16/2024 PROCEDURE: XR CHEST 2VW, DATE/TIME OF EXAM: 03/16/2024 4:58 PM, LOCATION [facility] INDICATION: R05.1: Acute cough ADDITIONAL CLINICAL INFORMATION: [...] hernia. > Dictated by Ariel Crain DO (Die Grinder), 03/16/2024 5:05PM. Iris Bran MD have personally reviewed and interpreted this examination/study. > Interpreting Provider: Iris Carbajal MD on 03/16/2024 11:43 PM Debbi Peralta GAS SHOVEL OPERATOR-COMPUTER INFORMATION SYSTEMS PROFESSOR DIAGNOSTIC I MAGING ORDERABLES * (ABNORMAL) TROPONIN-I HIGH SENSITIVE REFLEX 1HOUR (03/16/2024 4:52 PM HEARING AID FITTER) Only the most recent of2 resultswithin the time period is included. [facility] Troponin I High Sensitive 179(H) <=14 ng/L 03/16/2024 6:19 PM HEARING AID FITTER [facility] [place] Troponin I HS <0 <6 ng/L 03/16/2024 6:19 PM HEARING AID FITTER [facility] Blood BLOOD SPECIMEN / Unknown Venipuncture / Unknown 03/16/2024 4:52 PM HEARING AID FITTER 03/16/2024 5:40 PM HEARING AID FITTER Debbi Peralta GAS SHOVEL OPERATOR-[place]gin LAB - CHEMIS TRY ORDERABLES [address] [address], [facility] [phone] * (ABNORMAL) TROPONIN-I HIGH SENSITIVE BASELINE + 1HR (03/16/2024 3:32 PM HEARING AID FITTER) Only the most recent of2 resultswithin the time period is included. [facility] Troponin I High Sensitive 305(HH) <=14 ng/L 03/16/2024 4:29 PM HEARING AID FITTER [facility] Blood BLOOD SPECIMEN / Unknown Venipuncture / Unknown 03/16/2024 3:32 PM HEARING AID FITTER 03/16/2024 3:42 PM HEARING AID FITTER Debbi Peralta GAS SHOVEL OPERATORGnammo LAB - CHEMIS TRY ORDERABLES [address] [address], [place] [phone] * (ABNORMAL) CBC W AUTO DIFFERENTIAL (03/16/2024 3:32 PM HEARING AID FITTER) Only the most recent of157 resultswithin the time period is included. [facility] WBC 6.9 4.0 - 10.7 x10E9/L 03/16/2024 3:49 PM [facility] RBC Count 3.07(L) 3.90 - 5.20 x10E12/L 03/16/2024 3:49 PM [facility] Hemoglobin 8.5(L) 11.9 - 15.8 g/dL 03/16/2024 3:49 PM [facility] Hematocrit 27.3(L) 34.8 - 46.1 % 03/16/2024 3:49 PM [facility] MCV 88.9 80.0 - 98.0 fL 03/16/2024 3:49 PM [facility] MCH 27.7 26.7 - 33.6 pg 03/16/2024 3:49 PM [facility] MCHC 31.1(L) 31.7 - 36.3 g/dL 03/16/2024 3:49 PM [facility] RDW-CV 16.3(H) 11.3 - 14.8 % 03/16/2024 3:49 PM [facility] Platelet Count 260 150 - 420 x10E9/L 03/16/2024 3:49 PM [facility] MPV 9.7 7.8 - 11.4 fL 03/16/2024 3:49 PM [facility] Neutrophil % 63.4 41.0 - 74.0 % 03/16/2024 3:49 PM [facility] Lymphocyte % 15.8(L) 17.0 - 47.0 % 03/16/2024 3:49 PM [facility] Monocyte % 12.5(H) 3.0 - 11.0 % 03/16/2024 3:49 PM [facility] Eosinophil % 6.7 0.0 - 7.0 % 03/16/2024 3:49 PM [facility] Basophil % 0.4 0.0 - 1.6 % 03/16/2024 3:49 PM [facility] Immature Granulocytes % 1.2(H) 0.0 - 1.0 % 03/16/2024 3:49 PM [facility] Neutrophil Absolute 4.37 1.60 - 7.50 x10E9/L 03/16/2024 3:49 PM [facility] Lymphocyte Absolute 1.09 1.00 - 4.40 x10E9/L 03/16/2024 3:49 PM [facility] Monocyte Absolute 0.86 0.15 - 1.00 x10E9/L 03/16/2024 3:49 PM [facility] Eosinophil Absolute 0.46 0.00 - 0.60 x10E9/L 03/16/2024 3:49 PM [facility] Basophil Absolute 0.03 0.00 - 0.13 x10E9/L 03/16/2024 3:49 PM [facility] NRBC 0.3(H) <=0.0 /100 WBC 03/16/2024 3:49 PM [facility] Blood BLOOD SPECIMEN / Unknown Venipuncture / Unknown 03/16/2024 3:32 PM HEARING AID FITTER 03/16/2024 3:42 PM HEARING AID FITTER Debbi Peralta GAS SHOVEL OPERATOR-COMPUTER INFORMATION SYSTEMS PROFESSOR LAB - HEMATO LOGY ORDERABLES [facility] [address] [place] [address], [facility] [phone] * (ABNORMAL) B-TYPE NATRIURETIC PEPTIDE (03/16/2024 3:32 PM [facility]) Only the most recent of9 resultswithin the time period is included. BNP 620(H) <100 pg/mL 03/16/2024 4:13 PM [facility] Comment: A decision threshold of 100 [...] Unknown Venipuncture / Unknown 03/16/2024 3:32 PM HEARING AID FITTER 03/16/2024 3:41 PM HEARING AID FITTER Debbi Peralta GAS SHOVEL OPERATOR-COMPUTER INFORMATION SYSTEMS PROFESSOR LAB - CHEMIS TRY ORDERABLES Performing Organization Address [facility] Co de Phone Number [address] [address], [facility] [phone] * (ABNORMAL) COMPREHENSIVE METABOLIC PANEL (03/16/2024 3:32 PM HEARING AID FITTER) Only the most recent of46 resultswithin the time period is included. BUN 32(H) 7 - 26 mg/dL 03/16/2024 4:29 PM [facility] Creatinine 7.76(H) 0.56 - 0.96 mg/dL 03/16/2024 4:29 PM [facility] Sodium 141 136 - 145 mmol/L 03/16/2024 4:29 PM [facility] Potassium 4.6(H) 3.5 - 4.5 mmol/L 03/16/2024 4:29 PM [facility] Comment:Hemolysis detected i n this specimen. Hemolysis may cause false elevations in potassium leading to pseudohyperkalemia or masked hypokalemia. Recommend repeat testing if clinically indicated. Chloride 102 98 - 107 mmol/L 03/16/2024 4:29 PM [facility] CO2 24 22 - 29 mmol/L 03/16/2024 4:29 PM [facility] Glucose 80 70 - 99 mg/dL 03/16/2024 4:29 PM [facility] Calcium 10.0 8.4 - 10.2 mg/dL 03/16/2024 4:29 PM [facility] Protein Total 7.8 6.0 - 8.3 g/dL 03/16/2024 4:29 PM [facility] Comment:Hemolysis detected i n this specimen. Hemolysis is known to cause elevations in this analyte. Caution should be exercised in the interpretation of this result. Recommend repeat testing if clinically indicated. Albumin 3.3(L) 3.4 - 5.0 g/dL 03/16/2024 4:29 PM [facility] Bilirubin Total 0.6 0.2 - 1.2 mg/dL 03/16/2024 4:29 PM [facility] Alkaline Phosphatase 142 40 - 150 U/L 03/16/2024 4:29 PM [facility] ALT 7 5 - 55 U/L 03/16/2024 4:29 PM [facility] AST 42(H) 5 - 34 U/L 03/16/2024 4:29 PM [facility] Comment:Hemolysis detected i n this specimen. Hemolysis is known to cause elevations in this analyte. Caution should be exercised in the interpretation of this result. Recommend repeat testing if clinically indicated. Anion Gap 15 6 - 16 03/16/2024 4:29 PM [facility] BUN/Creatinine Ratio 4(L) 7 - 23 02/21 4:29 PM [facility] Osmolality Calculated 298(H) 275 - 295 mOsm/kg 03/16/2024 4:29 PM [facility] Albumin/Globulin Ratio 0.7(L) 1.1 - 2.3 03/16/2024 4:29 PM [facility] eGFR by CKD-EPI 5(L) >=90 mL/min/1 .73 m2 03/16/2024 4:29 PM [facility] Blood BLOOD SPECIMEN / Unknown Venipuncture / Unknown 03/16/2024 3:32 PM [facility] 03/16/2024 3:42 PM [facility] Debbi Baerrichi [facility] - CHEMIS TRY ORDERABLES [facility] [address] [place] [address], [facility] [phone] * PHOSPHORUS BLOOD (03/16/2024 3:32 PM [facility] [employer]) Only the most recent of33 resultswithin the time period is included. Phosphorus 4.8 2.9 - 5.1 mg/dL 03/16/2024 4:27 PM [facility] [employer] Blood BLOOD SPECIMEN / Unknown Venipuncture / Unknown 03/16/2024 3:32 PM [facility] [employer] [employer] 03/16/2024 3:42 PM [facility] [employer] [employer] Debbi Baerrichi [facility] - CHEMIS TRY ORDERABLES [address] [address], [facility] [phone] * (ABNORMAL) SARS-COV-2 (COVID-19) FLU A/B RSV PCR RAPID (03/16/2024 3:10 PM [facility] [employer]) COVID-19 PCR Not detected Not detected 03/16/19 3:58 PM [facility] [employer] [employer] Influenza A PCR Detected(A) Not detected 03/16/2024 3:58 PM [facility] [employer] Influenza B PCR Not detected Not detected 03/16/2024 3:58 PM [facility] RSV PCR Not detected Not detected 03/16/2024 3:58 PM [facility] [facility] Microbiology SPECIMEN FROM NASOPHARYNGEAL STRUCTURE / Unknown Collection / Unknown 03/16/2024 3:10 PM [facility] [employer] 03/16/2024 3:15 PM [facility] [employer] Narrative [facility] - 03/16/2024 3:58 PM [facility] [employer] Droplet Precautions Required. This nucleic acid amplification [...] assay are available upon request. Debbi Peralta APRN-[facility] - MICROB IOLOGY ORDERABLES Performing Organization Address [facility]/ZIP Co de Phone Number [phone] [place] [address], [facility] [phone] * EKG 12-LEAD (03/16/2024 2:48 PM [facility]) Only the most recent of41 resultswithin the time period is included. Ventricular Rate 87 BPM [facility] MUSE Atrial Rate 87 BPM [facility] MUSE P-R Interval 152 ms [facility] MUSE QRS Duration ms 118 ms [facility] MUSE Q-T Interval ms 400 ms [facility] MUSE QTC Calculation (Bezet) 481 ms [facility] MUSE Calculated P [place] 69 degrees SL MUSE Calculated R [place] -43 degrees [facility] MUSE Calculated T [place] 98 degrees [facility] MUSE Interpretation EKG NORMAL SINUS RHYTHM WITH SINUS ARRHYTHMIA LEFT AXIS DEVIATION MINIMAL VOLTAGE CRITERIA FOR LVH, MAY BE NORMAL VARIANT ( Juan product ) ANTEROSEPTAL INFARCT (CITED ON OR BEFORE 01-JAN-2024) ABNORMAL ECG WHEN COMPARED WITH ECG OF 09-FEB-2024 19:42, SIGNIFICANT CHANGES HAVE OCCURRED Confirmed by SENTHIL LANCE MD ([id number]) on 03/18/2024 8:05:11 AM [facility] MUSE 03/16/2024 2:48 PM HEARING AID FITTER 03/18/2024 8:05 AM HEARING AID FITTER Debib Peralta APRN-[facility] ECG ORDERABL ES Performing Organization Address City/[facility]/ZIP Co de Phone Number [facility] MUSE * (ABNORMAL) BASIC METABOLIC PANEL (BMP) (03/15/2024 8:45 AM HEARING AID FITTER) Only the most recent of30 resultswithin the time period is included. Glucose [...] BLOOD SPECIMEN / Unknown 03/15/2024 8:45 AM HEARING AID FITTER 03/15/2024 Narrative [facility] INSURANCE BILL - 03/16/2024 6:10 AM HEARING AID FITTER Performed at: ??01 - [facility] [address], [place] ??[id number] Professor Of German: El Fan PhD, Phone: ??[phone] Bahman Ann MD LAB - CHEMISTRY ORDERABLES Performing Organization Address City/State/[facility] Co de Phone Number [facility] INSURANCE BILL [address] [place] [address] * XR Cervical Spine 2 or 3Vw (03/12/2024 2:45 PM HEARING AID FITTER) Only the most recent of10 resultswithin the time period is included. Anatomical Region Laterality Modality Spine Computed Radiogr aphy 03/12/2024 3:29 PM HEARING AID FITTER Impressions 03/12/2024 3:37 PM HEARING AID FITTER IMPRESSION: Redemonstration of postoperative changes cervical spinal fusion as described above, unchanged compared to prior exam. The report was drafted by Emil Carrillo MD (vice president for philanthropy) 03/12/2024 3:29 PM. Maria Eugenia Bran MD have personally reviewed and interpreted this examination/study. > Interpreting Provider: Maria Eugenia Howard MD on 03/12/2024 3:37 PM Narrative 03/12/2024 3:37 PM HEARING AID FITTER PROCEDURE: ??XR CERVICAL SPINE 2 OR 3VW, DATE/TIME OF EXAM: ??03/12/2024 2:45 PM, LOCATION ??[facility] INDICATION: Z98.1: S/P cervical spinal fusion ADDITIONAL [...] 3VW, DATE/TIME OF EXAM: 52:45 PM, LOCATION [facility] INDICATION: Z98.1: S/P cervical spinal fusion ADDITIONAL [...] drafted by Emil Carrillo MD (vice president for philanthropy) 03/12/2024 3:29 PM. I, Maria Eugenia Howard MD have personally reviewed and interpreted this examination/study. > Interpreting Provider: Maria Eugenia Howard MD on 03/12/2024 3:37 PM Ryland Fuentes MD DIAGNOSTIC IMAGING O RDERABLES * APHERESIS/TRANSFUSION ORDER (02/19/2024 1:25 PM HEARING AID FITTER) Narrative 02/19/2024 1:25 PM HEARING AID FITTER Ordered by an unspecified provider. Scanned Document NURSING - VITAL SIGN S AND ASSESSMENT * PREPARE (CROSSMATCH) RBC UNIT(S), 4 Units (02/11/2024 1:17 AM HEARING AID FITTER) Only the most recent of5 resultswithin the time period is included. Unit Description AS1 LR PRBC [facility] B[facility]OD [facility] LAB Unit ABO O [facility]OD [facility] Unit NEG [facility] Product Number R02 [facility] B LOOD BANK LAB Unit Donor # [id number] [facility]OD [facility] Unit Status released [facility] BLOO D BANK LAB Product Code [id number] [facility] BLO OD BANK LAB Blood Type Barcode 9500 [facility] Expiration Date [id number] S BLOOD BANK LAB Unit Description AS1 LR PRBC [facility] BLOOD [facility] LAB Unit ABO O [facility] BLOOD [facility] Unit NEG [facility] B[facility]OD [facility] Product Number R43 [facility] B LOOD BANK LAB Unit Donor # [id number] [facility] BLOOD [facility] Unit Status released [facility] BLOO D BANK [facility] Product Code [id number] [facility] BLO OD BANK LAB Blood Type Barcode 9500 [facility] Expiration Date [id number] S BLOOD [facility]ANK LAB Unit Description AS1 LR PRBC [facility] BLOOD [facility] Unit ABO O [facility] B[facility]OD [facility] Unit NEG [facility] B[facility]OD [facility] Product Number R44 [facility] B LOOD BANK LAB Unit Donor # [id number] [facility] BLOOD [facility] Unit Status released [facility] BLOO D BANK LAB Product Code [id number] [facility] BLO OD BANK LAB Blood Type Barcode 9500 [facility] B[facility]OD [facility] Expiration Date [id number] S [facility]LOOD [facility]ANK LAB Unit Description AS1 LR PRBC [facility] BLOOD [facility] Unit ABO O [facility] B[facility]OD [facility] Unit NEG [facility] B[facility]OD [facility] Product Number R02 [facility] B LOOD BANK LAB Unit Donor # [id number] [facility] BLOOD [facility] LAB Unit Status released [facility] BLOO D BANK LAB Product Code [id number] [facility] BLO OD BANK LAB Blood Type Barcode 9500 [facility] BLOOD [facility] LAB Expiration Date [id number] S BLOOD BANK LAB Blood Bank BLOOD SPECIMEN / Unknown 02/08/2024 2:11 PM HEARING AID FITTER Laura Ramandeep GAS SHOVEL OPERATOR-COMPUTER INFORMATION SYSTEMS PROFESSOR LAB - BLOOD BA NK ORDERABLES Performing Organization Address City/[facility]/ZIP Co de Phone Number [facility]OD [facility] LAB [address] [place] [address], [facility] [phone] * HEMOGLOBIN A1C (02/10/2024 1:08 AM HEARING AID FITTER) Only the most recent of12 resultswithin the time period is included. Hemoglobin A1c 5.1 <=5.6 % 02/10/2024 9:12 AM [facility] Estimated Average Glucose 100 mg/dL 02/10/2024 9:12 AM [facility] Comment: HbA1c Interpretation: Normal : < 5.7% Pre-diabetes: 5.7-6.4% Diabetes: Equal to or greater than 6.5% Test results diagnostic of diabetes should be repeated for confirmation. Treatment target values recommended by ADA and other clinical organizations should be used to evaluate metabolic control in patients. Reference: [place] [employer], Standards of Care in Diabetes -2020 In patients 70 years and older consider HbA1c target range of 7.0-7.5% (Reference: Jayme Go, et al. JAMDA. 2012) The Sebia assay for the measurement of HbA1c is a National Glycohemoglobin Standardization Program (NGSP) certified method. Blood BLOOD SPECIMEN / Unknown Lab Venipuncture / Unknown 02/10/2024 1:08 AM HEARING AID FITTER 02/10/2024 1:44 AM HEARING AID FITTER Lamberto Potts MD LAB - CHEMISTRY RASHID INFANTE [facility] [address] [place] [address], [facility] [phone] * (ABNORMAL) GLUCOSE - POINT OF CARE (02/09/2024 7:34 PM HEARING AID FITTER) Only the most recent of253 resultswithin the time period is included. Glucose WB/POC 118(H) 70 - 99 mg/dL 02/09/2024 7:35 PM [facility] Specimen Type Cap Fingerstick 2023 7:35 PM [facility] Blood BLOOD SPECIMEN / Unknown 02/09/2024 7:34 PM HEARING AID FITTER 02/09/2024 7:35 PM HEARING AID FITTER Lamberto Potts MD LAB - POINT OF CARE ORDERABLES Performing Organization Address City/[facility]/ZIP Co de Phone Number [facility] [address] [place] [address], [facility] [phone] * HEPATITIS B SURFACE ANTIGEN W RFLX CONFIRMATION (02/09/2024 12:34 PM HEARING AID FITTER) Only the most recent of12 resultswithin the time period is included. [facility] Hepatitis B Virus Surface Antigen Non-reacti ve Non-reacti ve 02/09/2024 2:12 PM [facility] Blood BLOOD SPECIMEN / Unknown Lab Venipuncture / Unknown 02/09/2024 12:34 PM HEARING AID FITTER 02/09/2024 1:01 PM HEARING AID FITTER China Arriola MD LAB - CHEMISTRY ORDE ARELIS Performing Organization Address City/[facility]/ZIP Co de Phone Number [facility] [address] [place] [address], [facility] [phone] * (ABNORMAL) CBC W/O DIFFERENTIAL (02/09/2024 9:04 AM HEARING AID FITTER) Only the most recent of14 resultswithin the time period is included. [facility] WBC 7.9 4.0 - 10.7 x10E9/L 02/09/2024 10:09 AM [facility] RBC Count 3.10(L) 3.90 - 5.20 x10E12/L 02/09/2024 10:09 AM [facility] Hemoglobin 8.8(L) 11.9 - 15.8 g/dL 02/09/2024 10:09 AM [facility] Hematocrit 27.6(L) 34.8 - 46.1 % 02/09/2024 10:09 AM [facility] MCV 89.0 80.0 - 98.0 fL 02/09/2024 10:09 AM [facility] MCH 28.4 26.7 - 33.6 pg 02/09/2024 10:09 AM [facility] MCHC 31.9 31.7 - 36.3 g/dL 02/09/2024 10:09 AM [facility] RDW-CV 15.8(H) 11.3 - 14.8 % 02/09/2024 10:09 AM [facility] Platelet Count 193 150 - 420 x10E9/L 02/09/2024 10:09 AM [facility] MPV 10.0 7.8 - 11.4 fL 02/09/2024 10:09 AM [facility] Blood BLOOD SPECIMEN / Unknown Lab Venipuncture / Unknown 02/09/2024 9:04 AM HEARING AID FITTER 02/09/2024 9:59 AM [facility] Lamberto Potts MD LAB - HEMATOLOGY ORD ERABLES [facility] [address] [place] [phone] [phone] * (ABNORMAL) RENAL FUNCTION PANEL (02/09/2024 9:04 AM [facility]) Only the most recent of93 resultswithin the time period is included. BUN 33(H) 7 - 26 mg/dL 02/09/2024 10:32 AM [facility] Creatinine 8.43(H) 0.56 - 0.96 mg/dL 02/09/2024 10:32 AM [facility] Sodium 139 136 - 145 mmol/L 02/09/2024 10:32 AM [facility] Potassium 4.8(H) 3.5 - 4.5 mmol/L 02/09/2024 10:32 AM [facility] Chloride 103 98 - 107 mmol/L 02/09/2024 10:32 AM [facility] CO2 22 22 - 29 mmol/L 02/09/2024 10:32 AM [facility] Glucose 114(H) 70 - 99 mg/dL 02/09/2024 10:32 AM [facility] Albumin 3.0(L) 3.4 - 5.0 g/dL 02/09/2024 10:32 AM [facility] Calcium 9.4 8.4 - 10.2 mg/dL 02/09/2024 10:32 AM [facility] Phosphorus 6.5(H) 2.9 - 5.1 mg/dL 02/09/2024 10:32 AM [facility] Anion Gap 14 6 - 16 02/09/2024 10:32 AM [facility] BUN/Creatinine Ratio 4(L) 7 - 23 02/09/2024 10:32 AM [facility] Osmolality Calculated 296(H) 275 - 295 mOsm/kg 02/09/2024 10:32 AM [facility] eGFR by CKD-EPI 5(L) >=90 mL/min/1.7 3 m2 02/09/2024 10:32 AM [facility] Blood BLOOD SPECIMEN / Unknown Lab Venipuncture / Unknown 02/09/2024 9:04 AM HEARING AID FITTER 02/09/2024 9:59 AM HEARING AID FITTER Lamberto Potts MD LAB - CHEMISTRY ORDMomo INFANTE [facility] [address] [place] [address], [facility] [phone] * MAGNESIUM BLOOD (02/09/2024 9:04 AM HEARING AID FITTER) Only the most recent of93 resultswithin the time period is included. Magnesium 2.0 1.6 - 2.6 mg/dL 02/09/2024 10:32 AM [facility] Blood BLOOD SPECIMEN / Unknown Lab Venipuncture / Unknown 02/09/2024 9:04 AM HEARING AID FITTER 02/09/2024 9:59 AM HEARING AID FITTER Lamberto Potts MD LAB - CHEMISTRY ORDMomo INFANTE [facility] [address] [place] [address], [facility] [phone] * ACT LR - POCT ([facility]) (02/08/2024 6:03 PM HEARING AID FITTER) Only the most recent of3 resultswithin the time period is included. 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 02/08/2024 ??3:53 PM Endotracheal Tube Placement: ? Patient Location: OR. Intubation Event Date/Time: ??02/08/2024 3:33 PM Procedure: intubation ([id number]) Procedure Section: ?? Sedation: under general anesthesia. [...] * ECHO JAE PROCEDURAL (02/08/2024 3:35 PM HEARING AID FITTER) Anatomical Region Laterality Modality Ultrasound 02/08/2024 3:35 PM HEARING AID FITTER Narrative 02/08/2024 6:48 PM HEARING AID FITTER Summary ??* The left atrial appendage is [...] peridevice leak. Patient Info Name: ? Moy Tobin Age: ? 68 years : ? 1955 Gender: ? Female Accession #: ? [id number] Exam Date: ? 02/08/2024 3:35 PM Patient Status: ? I/P Study Site: ? [facility] Primary Location: ? [facility] EStudy Info Exam Type: ? ECHO JAE PROCEDURAL Indications ?I48.0 - Paroxysmal atrial fibrillation (HCC) * A 2D, 3D, color Doppler and spectral Doppler transesophageal echocardiogram was performed. Staff Referring Physician: ? Laura Sabillon Ordering Provider: ? Laura Sabillon Attending Physician: ? Laura Sabillon Schedule Manager: ? Bahman Hope Medications ??* Sedation administered and monitored by anesthesia staff. Procedure Details ??Probe passed by the ballistics teacher without difficulty. Atrial Septum ??Iatrogenic ASD with [...] no peridevice leak. Patient Info Name: Moy Tobin Age: 68 years : 1955 Gender: Female Exam Date: 02/08/2024 3:35 PM Patient Status: I/P Study Site: [facility] Primary Location: [facility] EStudy Info Exam Type: ECHO JAE PROCEDURAL Indications I48.0 - Paroxysmal atrial fibrillation (HCC) * A 2D, 3D, color Doppler and spectral Doppler transesophagealechocardiogram was performed. Staff Referring Physician: Laura Sabillon Ordering Provider: Laura Sabillon Attending Physician: Laura Sabillon Schedule Manager: Bahman Hope Medications * Sedation administered and monitored by anesthesia staff. Procedure Details Probe passed by the ballistics teacher without difficulty. Atrial Septum Iatrogenic ASD with [...] by Senthil Lance on 02/08/2024 06:48 PM [facility] ECHO CUPID * TYPE + SCREEN PANEL (02/08/2024 2:07 PM HEARING AID FITTER) Only the most recent of10 resultswithin the time period is included. Antibody Screen POS 2:55 PM HEARING AID FITTER [facility] B[facility]OD [facility] ABO Rh O NEG 02/08/2024 2:55 PM HEARING AID FITTER [facility] B[facility]OD [facility] LAB Blood Bank BLOOD SPECIMEN / Unknown Venipuncture / Unknown 02/08/2024 2:07 PM HEARING AID FITTER 02/08/2024 2:11 PM HEARING AID FITTER [facility] LAB - BLOOD BA NK ORDERABLES Performing Organization Address City/[facility]/ZIP Co de Phone Number [facility]OD [facility] [address] [place] [address], [facility] [phone] * ALEAH DIRECT (02/08/2024 2:07 PM HEARING AID FITTER) Only the most recent of10 resultswithin the time period is included. Direct Aleah (BROCK) NEG 02/08/2024 3:58 PM HEARING AID FITTER [facility] B[facility]OD [facility] LAB Blood Bank BLOOD SPECIMEN / Unknown Venipuncture / Unknown 02/08/2024 2:07 PM HEARING AID FITTER 02/08/2024 2:11 PM HEARING AID FITTER [facility] LAB - BLOOD BA NK ORDERABLES [facility] [address] [place] [address], [facility] [phone] * ANTIBODY IDENTIFICATION (02/08/2024 2:07 PM HEARING AID FITTER) Only the most recent of11 resultswithin the time period is included. Antibody 1 POS, Anti-C 02/08/2024 4:13 PM HEARING AID FITTER [facility] Antibody 2 POS, Anti-D 02/08/2024 4:13 PM HEARING AID FITTER [facility] B[facility]OD [facility] LAB Blood Bank BLOOD SPECIMEN / Unknown Venipuncture / Unknown 02/08/2024 2:07 PM HEARING AID FITTER 02/08/2024 2:11 PM HEARING AID FITTER Laura Sabillon GAS SHOVEL OPERATOR-COMPUTER INFORMATION SYSTEMS PROFESSOR LAB - BLOOD BA NK ORDERABLES Performing Organization Address City/[facility]/ZIP Co de Phone Number [facility] [address] [place] [address], [facility] [phone] * IMMUNOFIXATION BLOOD (12/28/2023 3:26 PM HEARING AID FITTER) Only the most recent of2 resultswithin the time period is included. Pathologist [facility] Immunofixation Serum Normal Pattern Normal Pattern 12/29/2023 4:17 PM HEARING AID FITTER [facility] Comment: No monoclonal immunoglobulin detected by serum immunosubtraction. Edilma Rosa PhD, [facility] Clinical Japanese Interpreter ocular pathologist *The electrophoresis pattern and the interpretation have been reviewed and verified by the teaching physician. Blood BLOOD SPECIMEN / Unknown Lab Venipuncture / Unknown 12/28/2023 3:26 PM HEARING AID FITTER 12/28/2023 3:41 PM HEARING AID FITTER Bahman Ann MD LAB - CHEMISTRY ORDERABLES Performing Organization Address City/[facility]/ZIP Co de Phone Number [facility] [address] [place] [phone], [place] [phone] * FL MODIFIED BARIUM SWALLOW W/SPEECH (12/28/2023 2:32 PM HEARING AID FITTER) Anatomical Region Laterality Modality Chest Digital Radiogra phy 12/28/2023 7:41 PM HEARING AID FITTER Impressions 12/28/2023 7:41 PM HEARING AID FITTER IMPRESSION: Modified barium swallow fluoroscopy as described. Please see detailed report from speech pathology staff. > Interpreting Provider: Ashlee Strickland MD on 12/28/2023 7:41 PM Narrative 12/28/2023 7:41 PM HEARING AID FITTER PROCEDURE: ??FL SWALLOWING FUNCTION STUDY DATE/TIME OF [...] LITE CHAIN FREE PANEL (12/27/2023 11:51 AM HEARING AID FITTER) Free Derry Light Chains 136.9(H) 3.3 - 19.4 mg/L [facility] INSURANCE BILL Free Lambda Light Chains 178.1(H) 5.7 - 26.3 mg/L [facility] INSURANCE BILL Derry/Lambda Ratio 0.77 0.26 - 1.65 [facility] INSURANCE BILL Blood BLOOD SPECIMEN / Unknown 12/27/2023 11:51 AM HEARING AID FITTER 12/27/2023 Narrative [facility] INSURANCE BILL - 12/28/2023 3:10 PM HEARING AID FITTER Performed at: ??01 - [facility] [address] [facility], [place], [place] ??[id number] Professor Of German: El Fan PhD, Phone: ??[phone] Bahman Ann MD LAB - CHEMISTRY ORDERABLES [facility] INSURANCE BILL [address] [place] [address] * ECHO COMPLETE (12/12/2023 10:09 AM CDT) Only the most recent of2 resultswithin the time period is included. LA vol index 0.051 l/m? ? ? [facility]SM CV FUJI PACS Myocardial strain charge 2 unitless [facility]SM CV FUJI PACS IVSd 2D 1.756 cm SSM CV FUJ I PACS LVIDd 4.884 cm SSM CV FUJ I PACS LVIDs 3.928 cm SSM CV FUJ I PACS LVOT diam 2 cm SSM CV FUJ I PACS LVPWd 1.395 cm SSM CV FUJ I PACS LV biplane EF 39.831 % SSM CV FUJI PACS LV A2C EF 43.433 % SSM CV FUJ I PACS LV A4C EF 36.613 % SSM CV FUJ I PACS LV EDV A2C 100.049 ml SSM CV FU JI PACS LV EDV A4C 63.304 ml SSM CV FU JI PACS LV ESV A2C 56.595 ml SSM CV FU JI PACS LV ESV A4C 40.127 ml SSM CV FU JI PACS LVOT pk maryam 99.438 cm/s SSM CV F UJI PACS LVOT VTI 17.443 cm SSM CV FUJ I PACS LA size 4.408 cm SSM CV FUJ I PACS LA vol BP 91.124 ml SSM CV FUJ I PACS RA area 17.816 cm? ? ? SSM CV FUJI PACS AV mn grad 9.751 mmHg SSM CV FU JI PACS AV pk maryam 200.718 cm/s SSM CV FUJ I PACS AV VTI 32.216 cm SSM CV FUJ I PACS MV A pk maryam 85.38 cm/s SSM CV F UJI PACS MV E pk maryam 71.5 cm/s SSM CV F UJI PACS MV E' lateral maryma 6.126 cm/s SSM CV FUJI PACS MV mn grad 2.441 mmHg SSM CV FU JI PACS MV VTI 24.686 cm SSM CV FUJ I PACS TAPSE 1.899 cm SSM CV FUJ I PACS TR pk mrayam 249.413 cm/s SSM CV FUJ I PACS Ascending aorta 3.535 cm SSM CV FUJI PACS IVC Diam Expiration 1.196 cm SSM CV FUJI PACS Anatomical Region Laterality Modality Ultrasound 12/12/2023 8:51 AM CDT Narrative 12/12/2023 10:41 AM CDT Summary ??* There is moderately increased left ventricular wall thickness. ??* Mild left ventricular global hypokinesis. ??* Left ventricular systolic function is mildly reduced with an estimated ejection fraction of 40% by biplane method of disks. ??* The left ventricular diastolic function is consistent with grade II diastolic dysfunction. ??* Right ventricle is normal in size with normal systolic function. ??* The left atrium is severely dilated with a left atrial volume index of 51 ml/m2 by BP MOD. ??* There is mild to moderate mitral valve regurgitation. ??* There is mild to moderate tricuspid valve regurgitation. ??* The pulmonary artery systolic pressure is normal, 28 mmHg. ??* There is mild aortic valve stenosis with a peak velocity of 2 m/s, mean gradient of 10 mmHg, and aortic valve area of 1.70 cm2. Patient Info Name: ? Moy Tobin Age: ? 68 years : ? 1955 Gender: ? Female Accession #: ? [id number] Ht: ? 62 in Wt: ? 158 lb BSA: ? 1.79 m2 HR: ? 80 bpm BP: ? 149 / ? 67 mmHg Exam Date: ? 12/12/2023 8:51 AM Patient Status: ? O/P Study Site: ? [facility] Primary Location: ? [facility] EStudy Info Technical Quality: ? Good Exam Type: ? ECHO COMPLETE Indications ?I38 - Valvular heart disease Procedure(s) ??* A complete 2D, color Doppler, spectral Doppler, and M-Mode transthoracic echocardiogram was performed. Staff Referring Physician: ? Bahman Ann Ordering Provider: ? Bahman Ann Attending Physician: ? Bahman Ann Schedule Manager: ? Jennifer Lane Left Ventricle ??The left ventricle is normal in size. There is moderately increased left ventricular wall thickness. The left ventricular mass is normal. Left ventricular segmental wall motion is abnormal. The left ventricular diastolic function is consistent with grade II diastolic dysfunction. Left ventricular systolic function is mildly reduced with an estimated ejection fraction of 40% by biplane method of disks. Mild left ventricular global hypokinesis. Right Ventricle ??The right ventricle is normal in size. Right ventricular systolic function is normal. Left Atrium ??The left atrium is severely dilated with a left atrial volume index of 51 ml/m2 by BP MOD. Right Atrium ??The right atrium is normal in size. Atrial Septum ??Intact interatrial septum visualized by 2D and color Doppler imaging. Aortic Valve ??The aortic valve is trileaflet. There is no aortic valve regurgitation. There is mild aortic valve stenosis with a peak velocity of 2 m/s, mean gradient of 10 mmHg, and aortic valve area of 1.70 cm2. Pulmonic Valve ??The pulmonic valve is normal. There is no pulmonic valve stenosis. There is no pulmonic regurgitation. Mitral Valve ??The mitral valve is normal. There is no mitral valve stenosis. There is mild to moderate mitral valve regurgitation. Tricuspid Valve ??The tricuspid valve is normal. There is no tricuspid valve stenosis. There is mild to moderate tricuspid valve regurgitation. The pulmonary artery systolic pressure is normal, 28 mmHg. Inferior Vena Cava ??The inferior vena cava is normal in size (< 2.1 cm). There is > 50% collapse of the IVC upon inspiration with an estimated right atrial pressure of 3 mmHg. Pericardium/Pleural ??There is no pericardial effusion. Aorta ??The aortic root at the sinus of Valsalva is normal in size. The ascending aorta is normal in size. Measurements Left Ventricular Outflow Tract Name ? Value ?Normal LVOT 2D LVOT Diameter ? 2.0 cm ? LVOT Area ?3.1 cm2 ? LVOT Doppler LVOT Peak Velocity ? 1.0 m/s ? LVOT Peak Gradient ?4 mmHg ? LVOT Mean Velocity ?68.40 cm/s ? LVOT Mean Gradient ?2 mmHg ? LVOT VTI ? 17.4 cm ? LVOT VTI/AV VTI Ratio ?0.5 ? LVOT Stroke Volume ? 55 ml ? LVOT Stroke Volume Index ?31 ml/m2 ? 35-58 LVOT CO ?4.4 l/min ? LVOT CI ? 2.4 l/min/m2 Mitral Valve Name ? Value ?Normal MV Doppler MV Peak Gradient ?5 mmHg ? MV Mean Gradient ?2 mmHg ? MV DI (VTI) ? 1.42 ? MV PHT ? 96 ms ? MV Area (PHT) ? 2.28 cm2 ? 4.00-5.00 MV Area (Cont Eq VTI) ? 2.22 cm2 ? MV Diastolic Function MV E Peak Velocity ? 0.7 m/sec ? MV A Peak Velocity ? 0.9 m/sec ? MV E/A ? 0.8 ? MV Decel Time (PW) ?332 ms ? MV Annular TDI MV Septal e' Velocity ? 4 cm/s ? >=8 MV E/e' (Septal) ?19 ? <=8 MV Lateral e' Velocity ?6 cm/s ?>=10 MV E/e' (Lateral) ? 12 ? <=8 MV e' Average ? 5 cm/s ? MV E/e' (Average) ? 15 Tricuspid Valve Name ? Value ?Normal TV Regurgitation Doppler TR Peak Velocity ? 2.5 m/s ? TR Peak Gradient ? 25 mmHg ? Estimated PAP/RSVP RA Pressure ? 3 mmHg ? <=5 PA Systolic Pressure ? 28 mmHg ? <35 RV Systolic Pressure ? 28 mmHg ? <36 TV Annular TDI TV Lateral Suzi s' Velocity ? 12 cm/s ? 10-19 Aorta Name ? Value ?Normal Ascending Aorta Ao Root Diameter (2D) ? 3.1 cm ? Ao Root Diam Index (2D) ?1.7 cm/m2 ? Asc Ao Diameter ? 3.5 cm ? 1.9-3.5 Asc Ao Diameter Index ?2.0 cm/m2 ? 1.0-2.2 Venous Name ? Value ?Normal IVC/SVC IVC Diameter ?1.2 cm ? <=2.1 Aortic Valve Name ? Value ?Normal AV Doppler AV Peak Velocity ?2.01 m/s ? AV Peak Gradient ? 16 mmHg ? AV Mean Gradient ? 10 mmHg ? AV VTI ? 32 cm ? AV Area (Cont Eq VTI) ? 1.70 cm2 ?>=2.00 AV Area (Cont Eq Maryam) ? 1.56 cm2 ? AV DI (VTI) ? 0.54 ? AV DI (Maryam) ? 0.50 ? AV Regurgitation 2D LVOT Area ? 3.14 cm2 Ventricles Name ? Value ?Normal LV Dimensions 2D/MM IVS Diastolic Thickness (2D) ?1.8 cm ? 0.6-0.9 LVID Diastole (2D) ?4.9 cm ? 3.8-5.2 LVPW Diastolic Thickness (2D) ?1.4 cm ? 0.6-0.9 LVID Systole (2D) ? 3.9 cm ? 2.2-3.5 LV Mass (2D Cubed) ? 335 g ?67-162 LV Mass Index (2D Cubed) ?187 g/m2 ? 43-95 Relative Wall Thickness (2D) ?0.57 ?<=0.42 LV Fractional Shortening/Ejection Fraction 2D/MM LV Fractional Shortening (2D) ?20 % ? 27-45 LV EF (2D Teicholz) ? 40 % ? 54-74 LV Diastolic Volume (4C MOD) ? 63 ml ? LV EF (4C MOD) ?37 % ? LV Diastolic Volume (2C MOD) ?100 ml ? LV EF (2C MOD) ?43 % ? LV Diastolic Volume (BP MOD) ? 91 ml ?46-106 LV Diastolic Volume Index (BP MOD) ?51 ml/m2 ? 29-61 LV Systolic Volume (BP MOD) ?55 ml ? 14-42 LV Systolic Volume Index (BP MOD) ?30 ml/m2 ?8-24 LV EF (BP MOD) ?40 % ? 54-74 LV Diastolic Length (4C) ?7.0 cm ? LV Systolic Length (4C) ? 5.8 cm ? LV Stroke Volume (4C MOD) ?23 ml ? RV Dimensions 2D/MM TAPSE ? 1.9 cm ? >=1.7 Atria Name ? Value ?Normal LA Dimensions LA Dimension (2D) ? 4.4 cm ? 2.7-3.8 LA Dimen Index (2D) ?2.5 cm/m2 ? LA Volume (BP MOD) ? 91 ml ? LA Volume Index (BP MOD) ?51 ml/m2 ? RA Dimensions RA Area (4C) ?18 cm2 ?<=18 RA Area (4C) Index ? 10 cm2/m2 ? RA ESV (4C MOD) ?45 ml ? 15-27 RA ESV Index (4C MOD) ? 25 ml/m2 ? Report Signatures Finalized by Bahman Ann on 12/12/2023 10:41 AM Procedure Note Bahman Ann MD - 12/12/2023 Summary * There is moderately increased left ventricular wall thickness. * Mild left ventricular global hypokinesis. * Left ventricular systolic function is mildly reduced with anestimated ejection fraction of 40% by biplane method of disks. * The left ventricular diastolic function is consistent with grade II diastolic dysfunction. * Right ventricle is normal in size with normal systolic function. * The left atrium is severely dilated with a left atrial volume index of51 ml/m2 by BP MOD. * There is mild to moderate mitral valve regurgitation. * There is mild to moderate tricuspid valve regurgitation. * The pulmonary artery systolic pressure is normal, 28 mmHg. * There is mild aortic valve stenosis with a peak velocity of 2 m/s,mean gradient of 10 mmHg, and aortic valve area of 1.70 cm2. Patient Info Name: Moy Tobin Age: 68 years : 1955 Gender: Female Ht: 62 in Wt: 158 lb BSA: 1.79 m2 HR: 80 bpm BP: 149 / 67 mmHg Exam Date: 12/12/2023 8:51 AM Patient Status: O/P Study Site: [facility] Primary Location: [facility] EStudy Info Technical Quality: Good Exam Type: ECHO COMPLETE Indications I38 - Valvular heart disease Procedure(s) * A complete 2D, color Doppler, spectral Doppler, and M-Modetransthoracic echocardiogram was performed. Staff Referring Physician: Bahman Ann Ordering Provider: Bahman Ann Attending Physician: Bahman nAn Schedule Manager: Jennifer Lane Left Ventricle The left ventricle is normal in size. There is moderately increasedleft ventricular wall thickness. The left ventricular mass is normal. Left ventricular segmental wall motion is abnormal. The left ventriculardiastolic function is consistent with grade II diastolic dysfunction. Leftventricular systolic function is mildly reduced with an estimated ejection fraction of40% by biplane method of disks. Mild left ventricular global hypokinesis. Right Ventricle The right ventricle is normal in size. Right ventricular systolicfunction is normal. Left Atrium The left atrium is severely dilated with a left atrial volume index of51 ml/m2 by BP MOD. Right Atrium The right atrium is normal in size. Atrial Septum Intact interatrial septum visualized by 2D and color Doppler imaging. Aortic Valve The aortic valve is trileaflet. There is no aortic valveregurgitation. There is mild aortic valve stenosis with a peak velocity of 2 m/s, mean gradient of 10 mmHg, and aortic valve area of 1.70 cm2. Pulmonic Valve The pulmonic valve is normal. There is no pulmonic valve stenosis. Thereis no pulmonic regurgitation. Mitral Valve The mitral valve is normal. There is no mitral valve stenosis. There ismild to moderate mitral valve regurgitation. Tricuspid Valve The tricuspid valve is normal. There is no tricuspid valve stenosis.There is mild to moderate tricuspid valve regurgitation. The pulmonary artery systolic pressure is normal, 28 mmHg. Inferior Vena Cava The inferior vena cava is normal in size (< 2.1 cm). There is > 50%collapse of the IVC upon inspiration with an estimated right atrial pressure of 3mmHg. Pericardium/Pleural There is no pericardial effusion. Aorta The aortic root at the sinus of Valsalva is normal in size. Theascending aorta is normal in size. Measurements Left Ventricular Outflow Tract Name Value Normal LVOT 2D LVOT Diameter 2.0 cm LVOT Area 3.1 cm2 LVOT Doppler LVOT Peak Velocity 1.0 m/s LVOT Peak Gradient 4 mmHg LVOT Mean Velocity 68.40 cm/s LVOT Mean Gradient 2 mmHg LVOT VTI 17.4 cm LVOT VTI/AV VTI Ratio 0.5 LVOT Stroke Volume 55 ml LVOT Stroke Volume Index 31 ml/m2 35-58 LVOT CO 4.4 l/min LVOT CI 2.4 l/min/m2 Mitral Valve Name Value Normal MV Doppler MV Peak Gradient 5 mmHg MV Mean Gradient 2 mmHg MV DI (VTI) 1.42 MV PHT 96 ms MV Area (PHT) 2.28 cm2 4.00-5.00 MV Area (Cont Eq VTI) 2.22 cm2 MV Diastolic Function MV E Peak Velocity 0.7 m/sec MV A Peak Velocity 0.9 m/sec MV E/A 0.8 MV Decel Time (PW) 332 ms MV Annular TDI MV Septal e' Velocity 4 cm/s >=8 MV E/e' (Septal) 19 <=8 MV Lateral e' Velocity 6 cm/s >=10 MV E/e' (Lateral) 12 <=8 MV e' Average 5 cm/s MV E/e' (Average) 15 Tricuspid Valve Name Value Normal TV Regurgitation Doppler TR Peak Velocity 2.5 m/s TR Peak Gradient 25 mmHg Estimated PAP/RSVP RA Pressure 3 mmHg <=5 PA Systolic Pressure 28 mmHg <35 RV Systolic Pressure 28 mmHg <36 TV Annular TDI TV Lateral Suzi s' Velocity 12 cm/s 10-19 Aorta Name Value Normal Ascending Aorta Ao Root Diameter (2D) 3.1 cm Ao Root Diam Index (2D) 1.7 cm/m2 Asc Ao Diameter 3.5 cm 1.9-3.5 Asc Ao Diameter Index 2.0 cm/m2 1.0-2.2 Venous Name Value Normal IVC/SVC IVC Diameter 1.2 cm <=2.1 Aortic Valve Name Value Normal AV Doppler AV Peak Velocity 2.01 m/s AV Peak Gradient 16 mmHg AV Mean Gradient 10 mmHg AV VTI 32 cm AV Area (Cont Eq VTI) 1.70 cm2 >=2.00 AV Area (Cont Eq Maryam) 1.56 cm2 AV DI (VTI) 0.54 AV DI (Maryam) 0.50 AV Regurgitation 2D LVOT Area 3.14 cm2 Ventricles Name Value Normal LV Dimensions 2D/MM IVS Diastolic Thickness (2D) 1.8 cm 0.6-0.9 LVID Diastole (2D) 4.9 cm 3.8-5.2 LVPW Diastolic Thickness (2D) 1.4 cm 0.6-0.9 LVID Systole (2D) 3.9 cm 2.2-3.5 LV Mass (2D Cubed) 335 g 67-162 LV Mass Index (2D Cubed) 187 g/m2 43-95 Relative Wall Thickness (2D) 0.57 <=0.42 LV Fractional Shortening/Ejection Fraction 2D/MM LV Fractional Shortening (2D) 20 % 27-45 LV EF (2D Teicholz) 40 % 54-74 LV Diastolic Volume (4C MOD) 63 ml LV EF (4C MOD) 37 % LV Diastolic Volume (2C MOD) 100 ml LV EF (2C MOD) 43 % LV Diastolic Volume (BP MOD) 91 ml 46-106 LV Diastolic Volume Index (BP MOD) 51 ml/m2 29-61 LV Systolic Volume (BP MOD) 55 ml 14-42 LV Systolic Volume Index (BP MOD) 30 ml/m2 8-24 LV EF (BP MOD) 40 % 54-74 LV Diastolic Length (4C) 7.0 cm LV Systolic Length (4C) 5.8 cm LV Stroke Volume (4C MOD) 23 ml RV Dimensions 2D/MM TAPSE 1.9 cm >=1.7 Atria Name Value Normal LA Dimensions LA Dimension (2D) 4.4 cm 2.7-3.8 LA Dimen Index (2D) 2.5 cm/m2 LA Volume (BP MOD) 91 ml LA Volume Index (BP MOD) 51 ml/m2 16-34 RA Dimensions RA Area (4C) 18 cm2 <=18 RA Area (4C) Index 10 cm2/m2 RA ESV (4C MOD) 45 ml 15-27 RA ESV Index (4C MOD) 25 ml/m2 16-34 Report Signatures Finalized by Bahman Ann on 12/12/2023 10:41 AM Bahman Ann MD ECHO CUPID * HEPATITIS C AB SCREEN RFLX NAAT QUANT (10/18/2023 4:48 PM CDT) Hepatitis C Antibody Non-react nayeli Non-reac tive 10/18/2023 5:48 PM CDT [facility] Comment:Hepatitis C Antibody screen indicates no [...] PM CDT 10/18/2023 4:48 PM CDT Osmar Zuniga Ocasio LAB - CHEMISTRY Handseeing Information Performing Organization Address [facility] Co de Phone Number [address] [address], [facility] [phone] * (ABNORMAL) DIGOXIN LEVEL (10/18/2023 4:48 PM CDT) Only the most recent of6 resultswithin the time period is included. Pathologist [facility] Digoxin 0.3(L) 0.5 - 1.2 ng/mL 10/18/2023 5:30 PM CDT [facility] Blood BLOOD SPECIMEN / Unknown Venipuncture / Unknown 10/18/2023 4:48 PM CDT 10/18/2023 4:48 PM CDT Narrative [facility] - 10/18/2023 5:30 PM CDT Therapeutic reference range for heart failure is 0.5-0.9 ng/mL. For atrial fibrillation, it is 0.8-1.2 ng/mL. The heel compressor of Digoxin [employer] has stated that no immunoassay technique is suitable for quantitating digoxin in plasma/serum from patients on antibody fragment therapy. [facility] - [employer] Performing Organization Address [facility] Co de Phone Number [address] [address] [phone] * VAS Arterial Multilevel Ue (10/18/2023 10:41 AM CDT) Anatomical Region Laterality Modality Upper Extremity Intravascular Ul trasound 10/18/2023 10:0 3 AM CDT Narrative Procedure Note Ramon Hassan MD - 10/18/2023 Osmar Ocasio DO VASCULAR LAB ORDERAB LES * SARS-COV-2 (COVID-19) RAPID (10/14/2023 10:20 AM CDT) COVID-19 PCR Not detected Not detected 10/14/19 11:24 AM CDT [facility] Microbiology SPECIMEN FROM NASOPHARYNGEAL STRUCTURE / Unknown Collection / Unknown 10/14/2023 10:20 AM CDT 10/14/2023 10:32 AM CDT Narrative [facility] - 10/14/2023 11:24 AM CDT The Cepheid Xpert Xpress SARS-COV-2 has been authorized by the Food and Drug Administration (FDA) under an Emergency Use Authorization (EUA). This test has been validated in accordance with the FDA's guidance document Policy for Diagnostic Testing in Laboratories Certified to perform High Complexity Testing under CLIA prior to Emergency Use Authorization for Coronavirus Disease-2019 during the Public Health Emergency issued on April 20, 2019. FDA independent review of this validation is pending. This test is only authorized for the duration of the time the declaration that circumstances exist justifying the authorization of emergency use of in vitro diagnostic tests for detection of SARS-COV-2 virus and/or diagnosis of COVID-19 infection under 564(b) (1) of the Act. 21 U.S.C. 360bbb-3 (b) (1), unless the authorization is terminated or revoked sooner. Fact Sheets for this EUA assay are available upon request. Federico Rodrigez MD LAB - MICROBIOLOGY O RDERABLES [facility] [address] [place] [address], [facility] [phone] * (ABNORMAL) PTT [facility] (10/13/2023 4:35 AM CDT) Only the most recent of15 resultswithin the time period is included. APTT 44.8(H) 23.0 - 38.4 Seconds 10/13/2023 5:41 AM CDT [facility] Comment:Suggested therapeuti c range for full dose I.V. unfractionated heparin therapy for venous thromboembolism is 71 to 109 seconds. Blood BLOOD SPECIMEN / Unknown Venipuncture / Unknown 10/13/2023 4:35 AM CDT 10/13/2023 4:55 AM CDT Olaf Bueno MD LAB - COAGULATION OR DERABLES Performing Organization Address [facility] Co de Phone Number [facility] [address] [place] [address], [facility] [phone] * (ABNORMAL) PT-INR [facility] (10/13/2023 4:35 AM CDT) Only the most recent of14 resultswithin the time period is included. PT 16.0(H) 12.1 - 14.8 Seconds 10/13/2023 5:41 AM CDT [facility] INR 1.3 See Comment 10/13/2023 5:41 AM CDT [facility] Comment:The suggested therap eutic range for standard coumadin (warfarin) therapy is an INR of 2.0-3.0. For high-risk patients (Mechanical Mitral Valve Prosthesis, etc.), the suggested prophylactic therapeutic range is an INR of 2.5-3.5. Blood BLOOD SPECIMEN / Unknown Venipuncture / Unknown 10/13/2023 4:35 AM CDT 10/13/2023 4:55 AM CDT Ryland Fuentes MD LAB - COAGULATION OR DERABLES Performing Organization Address City/[facility]/ZIP Co de Phone Number [facility] [address] [place] [address] [phone] * LACTIC ACID BLOOD (10/12/2023 11:55 AM CDT) Only the most recent of7 resultswithin the time period is included. Lactic Acid-Stat 1.0 <=2.0 mmol/L 10/12/2023 12:29 PM CDT [facility] Blood BLOOD SPECIMEN / Unknown Venipuncture / Unknown 10/12/2023 11:55 AM CDT 10/12/2023 12:08 PM CDT Juanita Monroe MD LAB - CHEMISTRY RASHID INFANTE [facility] [address] [place] [address], [facility] [phone] * XR Shoulder Right 2Vw or More (10/12/2023 10:10 AM CDT) Anatomical Region Laterality Modality Upper Extremity Radiographic Evan ging 10/12/2023 11:4 1 AM CDT Impressions 10/12/2023 1:13 PM CDT IMPRESSION: No acute fracture or dislocation identified. > Dictated by Ramon Romero DO (cath lab radiology technician). IRadha MD have personally reviewed and interpreted this examination/study. > Interpreting Provider: Radha Barton MD on 10/12/2023 1:13 PM Narrative 10/12/2023 1:13 PM CDT PROCEDURE: ??XR SHOULDER RIGHT 2VW OR MORE, DATE/TIME OF EXAM: ??10/12/2023 10:16 AM, LOCATION ??[facility] INDICATION: M25.511: Acute pain of right shoulder ADDITIONAL CLINICAL INFORMATION: Ordering Provider Reason For Exam: ??shoulder pain COMPARISON: None. FINDINGS: Partial visualization of a cervical collar and posterior spinal fusion hardware within the cervical region. The osseous structures are intact without acute fracture. The glenohumeral and acromioclavicular joints are in anatomic alignment. Bone density and texture are normal. ?? Procedure Note Radha Barton MD - 10/12/2023 PROCEDURE: XR SHOULDER RIGHT 2VW OR MORE, DATE/TIME OF EXAM: 10/12/2023 10:16 AM, LOCATION [facility] INDICATION: M25.511: Acute pain of right shoulder ADDITIONAL CLINICAL INFORMATION: Ordering Provider Reason For Exam: shoulder pain COMPARISON: None. FINDINGS: Partial visualization of a cervical collar and posterior spinal fusion hardware within the cervical region. The osseous structures are intact without acute fracture. Theglenohumeral and acromioclavicular joints are in anatomic alignment. Bone density and texture are normal. IMPRESSION: No acute fracture or dislocation identified. > Dictated by Ramon Romero DO (cath lab radiology technician). I, Radha Barton MD have personally reviewed and interpreted this examination/study. > Interpreting Provider: Radha Barton MD on 10/12/2023 1:13 PM Juanita Monroe MD DIAGNOSTIC IMAGING O RDERABLES * (ABNORMAL) PROCALCITONIN LEVEL (10/10/2023 3:44 AM CDT) Only the most recent of2 resultswithin the time period is included. PROCALCITONIN 10.66(H) <=0.10 ng/mL 10/10/2023 5:09 AM CDT [facility] Blood BLOOD SPECIMEN / Unknown Venipuncture / Unknown 10/10/2023 3:44 AM CDT 10/10/2023 3:47 AM CDT Narrative [facility] - 10/10/2023 5:09 AM CDT The change in procalcitonin (PCT) concentration over time provides support in decision making on antibiotic discontinuation for suspected or confirmed septic patients. Follow-up samples should be tested once every 1-2 days based upon physician discretion taking into account the patient? s evolution and progress. Consider discontinuation of ??antibiotic therapy ??if the PCT current ??is <= 0.5 ng/mL or if the delta PCT is > 80%. ??Duration of antibiotics should not be determined solely on PCT; established guidelines for the indication should be followed. ? PCT peak: ??Highest observed PCT concentration ? PCT current: Most recent PCT concentration ? Calculate delta PCT using the following equation: ?Delta PCT ??= ?? PCT Peak ? PCT current ??X 100% ? PCT Peak The Change in Procalcitonin Calculator is available at [email or web address] ?? If clinical picture has not improved and PCT remains high, reevaluate and consider treatment failure or other causes. Juanita Monroe MD LAB - CHEMISTRY RASHID INFANTE [address] [address], [facility] [phone] * XR Chest 1Vw Portable (10/09/2023 1:47 PM CDT) Only the most recent of20 resultswithin the time period is included. Anatomical Region Laterality Modality Chest Radiographic Evan ging 10/09/2023 3:29 PM CDT Impressions 10/10/2023 9:09 AM CDT IMPRESSION: Overall no significant interval changes when considering difference in technique and degree of rotation to the left. > Dictated by Ramon Romero DO (cath lab radiology technician). I, Beni Lea MD have personally reviewed and interpreted this examination/study. > Interpreting Provider: Beni Lea MD on 10/10/2023 9:09 AM Narrative 10/10/2023 9:09 AM CDT PROCEDURE: ??XR CHEST 1VW PORTABLE, DATE/TIME OF EXAM: ??10/09/2023 1:47 PM, LOCATION ??[facility] INDICATION: J98.4: Restrictive lung disease ADDITIONAL CLINICAL INFORMATION: Ordering Provider Reason For Exam: ??sob COMPARISON: Chest x-ray from 10/08/2023 performed at 1239 hours and a single view study from 04/11/2023 FINDINGS/IMPRESSION: AP portable semiupright view of the chest is performed and demonstrates considerable rotation towards the left. Cervical hardware is in place. Partial visualization of posterior cervical spinal fusion hardware. ACDF hardware of the cervical spine is also visualized. Again suggested is mild amount of pleural effusion on the left with associated airspace disease and/or left mid and lower lung zone atelectasis. No definitive pleural effusion on the right. No pneumothorax. Redemonstration of moderate to severe interstitial opacities bilaterally which may reflect pulmonary edema versus atypical infection superimposed upon underlying chronic interstitial disease. This appears similar to prior study accounting for differences in positioning and technique. Opacification within the retrocardiac region may represent focal atelectasis and/or airspace disease. The cardiac silhouette is enlarged. The superior mediastinal silhouette is within normal limits for degree of rotation to the left. Procedure Note Beni Lea MD - 10/10/2023 PROCEDURE: XR CHEST 1VW PORTABLE, DATE/TIME OF EXAM: 10/09/2023 1:47PM, LOCATION [facility] INDICATION: J98.4: Restrictive lung disease ADDITIONAL CLINICAL INFORMATION: Ordering Provider Reason For Exam: sob COMPARISON: Chest x-ray from 10/08/2023 performed at 1239 hours and a single viewstudy from 04/11/2023 FINDINGS/IMPRESSION: AP portable semiupright view of the chest isperformed and demonstrates considerable rotation towards the left. Cervical hardware is in place. Partial visualization of posteriorcervical spinal fusion hardware. ACDF hardware of the cervical spine is also visualized. Again suggested is mild amount of pleural effusion on the left with associated airspace disease and/or left mid and lower lung zone atelectasis. No definitive pleural effusion on the right. Nopneumothorax. Redemonstration of moderate to severe interstitial opacities bilaterally which may reflect pulmonary edema versus atypical infection superimposed upon underlying chronic interstitial disease. This appears similar toprior study accounting for differences in positioning and technique. Opacification within the retrocardiac region may represent focal atelectasis and/or airspace disease. The cardiac silhouette is enlarged. The superior mediastinal silhouette is within normal limits for degreeof rotation to the left. IMPRESSION: Overall no significant interval changes when considering difference in technique and degree of rotation to the left. > Dictated by Ramon Romero DO (cath lab radiology technician). I, Beni Lea MD have personally reviewed and interpreted this examination/study. > Interpreting Provider: Beni Lea MD on 10/10/2023 9:09 AM Juanita Monroe MD DIAGNOSTIC IMAGING O [place] * MRSA DNA PCR (10/09/2023 1:33 PM CDT) Pathologist [facility] MRSA DNA by PCR Not detected Not detected 10/09/2023 6:57 PM CDT [facility] MICROBIOLOGY Microbiology SPECIMEN FROM NASAL FOSSAE / Unknown Collection / Unknown 10/09/2023 1:33 PM CDT 10/09/2023 1:38 PM CDT Narrative [facility] MICROBIOLOGY - 10/09/2023 6:57 PM CDT Methicillin-resistant Staphylococcus aureus (MRSA) DNA is not detected (presumed not colonized with MRSA). Juanita Monroe MD LAB - MICROBIOLOGY O [place] [facility] MICROBIOLOGY [address] [place], [place] [address], [facility] [phone] * (ABNORMAL) BLOOD GASES ART + COOX PANEL (10/09/2023 8:49 AM CDT) Only the most recent of3 resultswithin the time period is included. Pathologist [facility] pH Arterial 7.35 7.35 - 7.45 pH 10/09/2023 9:04 AM [facility] pO2 Arterial 123(H) 80 - 100 mmHg 10/09/2023 9:04 AM [facility] pCO2 Arterial 39 35 - 45 mmHg 9:04 AM [facility] HCO3 Arterial 21.5 20.0 - 30.0 mmol/L 10/09/2023 9:04 AM [facility] BE Arterial -3.8(L) -2.0 - 2.0 mmol/L 10/09/2023 9:04 AM [facility] Oxyhemoglobin Arterial 95.8 % 10/09/2023 9:04 AM [facility] Dexoyhemoglobin (HHB) % 1.4 % 10/09/2023 9:04 AM [facility] Methemoglobin 2.0 0.0 - 2.0 % 10/09/2023 9:04 AM [facility] Carboxyhemoglobin 0.9 0.0 - 2.0 % 2023 9:04 AM [facility] O2 Content Arterial 9.3 Interpret within clinical context ml/dL 10/09/2023 9:04 AM [facility] Hemoglobin by COOX 6.7(L) 12.0 - 15.6 g/dL 10/09/2023 9:04 AM [facility] O2 Saturation Arterial 99 90 - 100 % 10/09/2023 9:04 AM [facility] FI O2 Arterial 32.0 % 10/09/2023 9:04 AM [facility] Blood, arterial ARTERIAL BLOOD SPECIMEN / Unknown Arterial Puncture / Unknown 10/09/2023 8:49 AM CDT 10/09/2023 8:54 AM CDT Narrative [facility] - 10/09/2023 9:04 AM CDT Carboxyhemoglobin Normal Concentration: Non-smokers: 0-2%; Smokers: 0-9%; Toxic: >20% Juanita Monroe MD LAB - BLOOD GASES OR DERABLES [facility] [address] [place] [address], [facility] [phone] * LAB MISC TEST (10/09/2023 2:31 AM CDT) Test Name PFA 100 10/09/2023 11:50 AM CDT [email or web address] Test Result See Scanned Report 10/09/2023 11:50 AM CDT [email or web address] Blood BLOOD SPECIMEN / Unknown Clinic Draw / Unknown 10/09/2023 2:31 AM CDT 10/09/2023 2:51 AM CDT Olaf Bueno MD LAB SEND OUT [email or web address] [address] [place] [address] * CULTURE BLOOD (10/08/2023 1:16 PM CDT) Only the most recent of17 resultswithin the time period is included. Culture No growth day 5 MIGNON 10/13/2023 3:32 PM CDT [facility] MICROBIOLOGY Blood PERIPHERAL BLOOD / Unknown Venipuncture / Unknown 10/08/2023 1:16 PM CDT 10/08/2023 1:29 PM CDT Olaf Bueno MD LAB - MICROBIOLOGY O RDERABLES [facility] MICROBIOLOGY [address] [place] [address], [facility] [phone] * CT Head Wo Contrast (10/08/2023 9:38 AM CDT) Anatomical Region Laterality Modality Head Computed Tomogra phy 10/08/2023 10:5 6 AM CDT Impressions 10/08/2023 3:39 PM CDT IMPRESSION: 1.No acute intracranial hemorrhage, midline shift, or significant mass effect. Report dictated by Tameka Delgado MD I, Daria Hemphill MD have personally reviewed and interpreted this examination/study. > Interpreting Provider: Daria Hemphill MD on 10/08/2023 3:39 PM Narrative 10/08/2023 3:39 PM CDT PROCEDURE: ??CT HEAD WO CONTRAST, DATE/TIME OF EXAM: ??10/08/2023 9:39 AM, LOCATION ??[facility] INDICATION: I95.89: Chronic hypotension EXAMINATION: Computed tomography (CT) of the head without contrast ADDITIONAL CLINICAL INFORMATION: Ordering Provider Reason For Exam: ??ams Technologist Note: Additional: CONTRAST: ?? TECHNIQUE: CT of the head was performed without contrast according to standard protocol. CT dose reduction technique was used, including Automated Exposure Control. COMPARISON: Comparison is made with a study from 10/05/2023 FINDINGS: No acute intracranial hemorrhage or extra-axial fluid collections are identified. The ventricles are of normal size, shape, and morphology. The basilar cisterns are patent. No mass effect or midline shift is seen. The torres-white matter differentiation is normal. Periventricular white matter hypoattenuation is indicative of chronic small vessel ischemic disease. There is vascular calcification of the carotid siphons and V4 segments of the vertebral arteries. No acute calvarial fracture is identified. Other than bilateral cataract extractions, the orbits appear normal. The paranasal sinuses are clear. The mastoid air cells are clear. Right parietal scalp soft tissue swelling/hematoma. Mild anterior and inferior displacement of the mandibular condyles of the temporomandibular joints bilaterally again noted. Procedure Note Daria Hemphill MD - 10/08/2023 PROCEDURE: CT HEAD WO CONTRAST, DATE/TIME OF EXAM: 10/08/2023 9:39 AM, LOCATION [facility] INDICATION: I95.89: Chronic hypotension EXAMINATION: Computed tomography (CT) of the head without contrast ADDITIONAL CLINICAL INFORMATION: Ordering Provider Reason For Exam: ams Technologist Note: Additional: CONTRAST: TECHNIQUE: CT of the head was performed without contrast according to standard protocol. CT dose reduction technique was used, including Automated Exposure Control. COMPARISON: Comparison is made with a study from 10/05/2023 FINDINGS: No acute intracranial hemorrhage or extra-axial fluid collections are identified. The ventricles are of normal size, shape, and morphology.The basilar cisterns are patent. No mass effect or midline shift is seen.The torres-white matter differentiation is normal. Periventricular whitematter hypoattenuation is indicative of chronic small vessel ischemic disease. There is vascular calcification of the carotid siphons and V4 segmentsof the vertebral arteries. No acute calvarial fracture is identified. Other than bilateral cataract extractions, the orbits appear normal. The paranasal sinuses are clear. The mastoid air cells are clear. Right parietal scalp soft tissue swelling/hematoma. Mild anterior and inferior displacement of the mandibular condyles of the temporomandibular joints bilaterally again noted. IMPRESSION: 1.No acute intracranial hemorrhage, midline shift, or significant mass effect. Report dictated by Tameka Delgado MD I, Daria Hemphill MD have personally reviewed and interpreted this examination/study. > Interpreting Provider: Daria Hemphill MD on 10/08/2023 3:39 PM Olaf Bueno MD CT ORDERABLES * TRANSFUSE RED BLOOD CELL LEUKOREDUCED UNIT(S) (10/06/2023 6:48 AM CDT) Valeriano Milan MD NURSING - BLOOD P RADHA TRANSFUSION * (ABNORMAL) LIPID PROFILE (10/06/2023 3:02 AM CDT) Only the most recent of9 resultswithin the time period is included. Cholesterol Total 108 <200 mg/dL 10/06/2023 3:37 AM [facility] HDL 36(L) >40 mg/dL 10/06/2023 3:37 AM [facility] Comment: ATP III Classification of HDL Cholesterol: ? <40 mg/dL: ??Considered a major risk factor. ? >60 mg/dL: ??Considered a negative risk factor. ? LDL Calculated 58 <100 mg/dL 10/06/2023 3:37 AM [facility] Comment: ATP III Classification of LDL Cholesterol: ?<100 mg/dL: ??Optimal ? 100 - 129 mg/dL: ??Near Optimal/Above Optimal ? 130 - 159 mg/dL: ??Borderline High ? 160 - 189 mg/dL: ??High ?>190 mg/dL: ??Very High ? Triglycerides 68 <150 mg/dL 10/06/2023 3:37 AM [facility] Comment: ATP III Classification of Triglycerides: ?<150 mg/dL: ??Normal ? 150 - 199 mg/dL: ??Borderline High ? 200 - 400 mg/dL: ??High ?>500 mg/dL: ??Very High Blood BLOOD SPECIMEN / Unknown Venipuncture / Unknown 10/06/2023 3:02 AM CDT 10/06/2023 3:07 AM CDT Velasquez Laughlin GAS SHOVEL OPERATOR-COMPUTER INFORMATION SYSTEMS PROFESSOR LAB - CHEMISTRY OR DERABLES Performing Organization Address [facility]/ZIP Co de Phone Number [facility] [address] [place] [phone], [facility] [phone] * (ABNORMAL) POTASSIUM WHOLE BLD (10/06/2023 12:47 AM CDT) Only the most recent of5 resultswithin the time period is included. Potassium Whole Blood 7.2(HH) 3.5 - 5.5 mmol/L 10/06/2023 12:57 AM CDT [facility] Blood WHOLE BLOOD SPECIMEN / Unknown Venipuncture / Unknown 10/06/2023 12:47 AM CDT 10/06/2023 12:49 AM CDT Carlos Andrade MD LAB - CHEMISTRY ORDERABLES Performing Organization Address [facility] Co de Phone Number [address] [phone], [facility] [phone] * (ABNORMAL) BLOOD GAS+COOX+LYTES+METAB ARTERIAL POCT (10/05/2023 2:52 PM CDT) Only the most recent of2 resultswithin the time period is included. pH Arterial 7.33(L) 7.35 - 7.45 pH 10/05/2023 2:52 PM T [facility] pO2 Arterial 74(L) 80 - 100 mmHg 10/05/2023 2:52 PM T [facility] pCO2 Arterial 47(H) 35 - 45 mmHg 2:52 PM T [facility] HCO3 Arterial 24.8 20.0 - 30.0 mmol/L 10/05/2023 2:52 PM T [facility] BE Arterial -1.1 -2.0 - 2.0 mmol/L 10/05/2023 2:52 PM T [facility] Oxyhemoglobin Arterial 93.5 % 10/05/2023 2:52 PM CDT [facility] Dexoyhemoglobin (HHB) % 1.7 % 10/05/2023 2:52 PM T [facility] Methemoglobin 1.9 0.0 - 2.0 % 10/05/2023 2:52 PM [facility] Carboxyhemoglobin 2.9(H) 0.0 - 2.0 % 2023 2:52 PM [facility] Comment:Carboxyhemoglobin No rmal Concentration: Non-smokers: 0-2%; Smokers: 0- 9%; Toxic: >20% O2 Content Arterial 9.5 Interpret within clinical context ml/dL 10/05/2023 2:52 PM [facility] Hemoglobin by COOX 7.1(L) 12.0 - 15.6 g/dL 10/05/2023 2:52 PM [facility] O2 Saturation Arterial 98 90 - 100 % 10/05/2023 2:52 PM [facility] Sodium Whole Blood 135 135 - 145 mmol/L 10/05/2023 2:52 PM [facility] Potassium Whole Blood 5.2 3.5 - 5.5 mmol/L 10/05/2023 2:52 PM [facility] Chloride WB 102 78 - 107 mmol/L 10/05/2023 2:52 PM [facility] Calcium Ionized 1.16 mmol/L 2:52 PM [facility] Ionized Calcium pH Adjusted 1.13(L) 1.19 - 1.34 mmol/L 10/05/2023 2:52 PM [facility] Anion Gap (AG) Arterial 8 6 - 16 mmol/L 10/05/2023 2:52 PM [facility] Glucose WB 153(H) 70 - 115 mg/dL 10/05/2023 2:52 PM [facility] Lactic Acid Whole Blood 0.7 <=2.0 mmol/L 10/05/2023 2:52 PM [facility] Blood, arterial ARTERIAL BLOOD SPECIMEN / Unknown 10/05/2023 2:52 PM CDT 10/05/2023 2:53 PM [facility] Ryland Fuentes MD LAB - POINT OF CARE ORDERABLES [facility] [address] [place] [address], [place] [phone] * BLOOD GAS ART+LYTES+METAB+COOX POC NOTIF (10/05/2023 2:48 PM CDT) Only the most recent of3 resultswithin the time period is included. Comment Notification Label Only - See Separate Report 10/05/2023 4:01 PM CDT [facility] Other MISCELLANEOUS SAMPLES / Unknown 10/05/2023 2:48 PM CDT 10/05/2023 2:48 PM CDT Valeriano Milan MD LAB - BLOOD GASES ORDERABLES [facility] [address] [place] [phone], [facility] [phone] * MRI Cervical Spine Wo Contrast (10/05/2023 2:20 PM CDT) Only the most recent of2 resultswithin the time period is included. Anatomical Region Laterality Modality Pelvis Magnetic Resonan ce 10/05/2023 3:13 PM CDT Addenda Addendum by Dilia Patel MD on 10/09/2023 9:19 PM CDT Correction of typographical error. Please disregard the prior report. A single word was inadvertently added in the first line of the third paragraph of the findings and and in the impression #2. The word centimeter should not be there. Otherwise, there is no change in the essential elements of the report. Please see corrected report below: PROCEDURE: ??MRI CERVICAL SPINE WO CONTRAST, DATE/TIME OF EXAM: ??10/05/2023 2:20 PM, LOCATION ??[facility] INDICATION: R53.1: Right sided weakness ADDITIONAL CLINICAL INFORMATION: Ordering Provider Reason For Exam: ??post op Technologist Note: ??BODY AND FENDER MECHANIC APPRENTICE MRI x4612 Does the patient have a pacemaker or defibrillator?->No Does the patient have metal implants or stents?->No Additional: ??68 year old female with history of Afib s/p ablations (1992, 2016), nonobstructive CAD, HFrEF, T2DM, DVTs, ESRD on HD, TOVA, HTN, HLD, hyperparathyroidism s/p parathyroidectomy, COPD, obesity, LENORA on CPAP, GERD who presented to [facility] on 10/05/23 for planned spine surgery due to cervical myelopathy with ortho-spine. Had hemoptysis after a fall recently and had anterior neck swelling/edema on CT so ENT also performed direct laryngoscopy/esophagoscopy prior to spine surgery which was unremarkable. Underwent C3-C6 laminectomies, C2-C7 instrumented posterior spinal fusion. Post-op, patient became flaccid on the right side. Code stroke called at [address] head and CTA brain/neck showed a large subgaleal scalp hematoma in the anterior right parietal region. MRI brain read pending but neurology reported small left occipital stroke which does not explain patient symptoms. MRI C-spine read pending but ortho reports epidural fluid collection spanning from C3-C6 with cord compression. Orthopedic surgery recommended close monitoring for now with MAP goal >80, q1h neuro checks. Labs pre-op showed ??Cr 7.81, Hgb 9.7, lactic 0.8. . EXAMINATION: ??MRI of the cervical spine without contrast TECHNIQUE: MRI of the cervical spine was performed without contrast according to standard protocol. COMPARISON: MRI of the cervical spine from 08/31/2023. CT of the cervical spine from 09/01/2023. Correlation with CT angiogram of the head the neck from 10/05/2023. FINDINGS: Redemonstration of postoperative findings of anterior cervical discectomy and fusion from C4 to C7 levels with anterior plate and paired anterior vertebral screws as well as interbody devices. Please refer to the prior CT for reported lucencies surrounding the C4 screws suggesting instrumentation loosening. Also please refer to the prior CT for extension of the C4 screws into the C3-C4 disc space. Overall findings appear grossly similar to the prior MRI from 08/31/2023. Compared to the prior MRI from 08/31/2023: There has been interval postoperative findings of posterior spinal decompression with C3-C6 laminectomies and C2-C7 instrumented posterior spinal fusion. Lateral mass screws are seen at the level of C2, C3, C4, C5 and C7 bilaterally, skipping the C6 level. Blooming artifacts from the hardware limits local evaluation. There is a prominent epidural hematoma, posterior to the thecal sac at the level of C3 but eccentric to the right from the inferior aspect of C3 down to the upper aspect of the C6 level. The hematoma is difficult to measure due to its irregular shape however based seen on the sagittal and axial T2-weighted images, for reference measuring approximately 2.3 x 1.5 cm in the transaxial dimensions, (series 5, image 15), and measuring approximately 4.7 cm craniocaudally, (series 2, image 12). There is varying degrees of compression on the thecal sac resulting in moderate to severe spinal canal stenosis and moderate to severe compression on the cervical cord, worst at the level of C3 and C4, and compressing the length of the C3 and C4 vertebral bodies, in other words extending from the level of C3-C4 down to mid the lower C6 level. There is displacement of the cord anteriorly and to the left, for reference, please see series 5, image 15-21). There is extension of the hematoma along the surgical incision in the laminectomy bed, with a diameter of approximately 3.5 cm at the level of C4, (series 5, image 17). Additional expected postsurgical changes of diffuse soft tissue fat stranding, soft tissue gas, soft tissue and hemorrhage resulting in blooming artifacts limiting local evaluation. The alignment is maintained compared to the prior. Limited evaluation of the vertebral bodies due to the presence of blooming artifacts from the hardware. Limited evaluation of the bone marrow signal due to the presence of blooming artifacts from the hardware.. The craniocervical junction appears normal. There is cord compression at the level of the above-mentioned postsurgical epidural hematoma. The remaining cord appears grossly unchanged compared to prior. Disruption of the posterior paraspinous soft tissues due to the presence of the above-mentioned surgery. Postsurgical changes limiting evaluation of the disc spaces. Moderate to severe spinal canal stenosis due to the presence of epidural hemorrhage, as detailed above. Limits evaluation of the facet joints due to the presence of the above-mentioned postsurgical changes. Limited evaluation of the uncovertebral joints due to the presence of the above-mentioned postsurgical changes. Limited evaluation of the neural foramina due to the presence of the above-mentioned postsurgical changes. As mentioned above, disruption of the posterior paraspinal soft tissues due to the recent surgery. Normal flow voids are identified in the vertebral arteries. The left vertebral artery is dominant. The right artery is a small in caliber.. IMPRESSION: Compared to the prior MRI of the cervical spine from 08/31/2023: 1.There has been interval postoperative findings of posterior spinal decompression with C3-C6 laminectomies and C2-C7 instrumented posterior spinal fusion. Lateral mass screws are seen at the level of C2, C3, C4, C5 and C7 bilaterally, skipping the C6 level. Blooming artifacts from the hardware limits local evaluation. 2.There is a prominent epidural hematoma, posterior to the thecal sac at the level of C3 but eccentric to the right from the inferior aspect of C3 down to the upper aspect of the C6 level, measuring approximately 2.3 x 1.5 x 4.7 cm in the transaxial and craniocaudal dimensions. There is moderate to severe compression on the posterior and the left posterolateral aspects of the thecal sac and moderate to severe cord compression, extending from the level of C3 to the level of C6. 3.Additional expected postsurgical changes as detailed above. 4.Additional remote postsurgical changes of ACDF as detailed above. These findings were discussed in detail with the patient's care provider, Mendy Tidwell RN (PACU) by Dr. Osmar Pereira via telephone at ??1539 hours on 10/05/2023 with readback comprehension and verification. These findings were discussed in detail with the patient's care provider, Wade Bustamante MD by Dr. Osmar Pereira via telephone at ??1541 hours on 10/05/2023 with readback comprehension and verification. These findings were discussed in detail with the patient's care provider, Alysia Cruz MD by Dr. Osmar Pereira via telephone at ??1541 hours on 10/05/2023 with readback comprehension and verification. Report dictated by Osmar Pereira MD, PhD (cath lab radiology technician). I, Dilia Patel MD have personally reviewed and interpreted this examination/study. > Interpreting Provider: Dilia Patel MD on 10/09/2023 9:17 PM Impressions 10/05/2023 8:23 PM CDT IMPRESSION: Compared to the prior MRI of the cervical spine from 08/31/2023: 1.There has been interval postoperative findings of posterior spinal decompression with C3-C6 laminectomies and C2-C7 instrumented posterior spinal fusion. Lateral mass screws are seen at the level of C2, C3, C4, C5 and C7 bilaterally, skipping the C6 level. Blooming artifacts from the hardware limits local evaluation. 2.There is a prominent epidural hematoma, centimeters posterior to the thecal sac at the level of C3 but eccentric to the right from the inferior aspect of C3 down to the upper aspect of the C6 level, measuring approximately 2.3 x 1.5 x 4.7 cm in the transaxial and craniocaudal dimensions. There is moderate to severe compression on the posterior and the left posterolateral aspects of the thecal sac and moderate to severe cord compression, extending from the level of C3 to the level of C6. 3.Additional expected postsurgical changes as detailed above. 4.Additional remote postsurgical changes of ACDF as detailed above. These findings were discussed in detail with the patient's care provider, Mendy Tidwell RN (PACU) by Dr. Osmar Pereira via telephone at ??1539 hours on 10/05/2023 with readback comprehension and verification. These findings were discussed in detail with the patient's care provider, Wade Bustamante MD by Dr. Osmar Pereira via telephone at ??1541 hours on 10/05/2023 with readback comprehension and verification. These findings were discussed in detail with the patient's care provider, Alysia Cruz MD by Dr. Osmar Pereira via telephone at ??1541 hours on 10/05/2023 with readback comprehension and verification. Report dictated by Osmar Pereira MD, PhD (cath lab radiology technician). I, Dilia Patel MD have personally reviewed and interpreted this examination/study. > Interpreting Provider: Dilia Patel MD on 10/05/2023 8:23 PM Narrative 10/05/2023 8:23 PM CDT PROCEDURE: ??MRI CERVICAL SPINE WO CONTRAST, DATE/TIME OF EXAM: ??10/05/2023 2:20 PM, LOCATION ??[facility] INDICATION: R53.1: Right sided weakness ADDITIONAL CLINICAL INFORMATION: Ordering Provider Reason For Exam: ??post op Technologist Note: ??BODY AND FENDER MECHANIC APPRENTICE MRI x4612 Does the patient have a pacemaker or defibrillator?->No Does the patient have metal implants or stents?->No Additional: ??68 year old female with history of Afib s/p ablations (1992, 2016), nonobstructive CAD, HFrEF, T2DM, DVTs, ESRD on HD, TOVA, HTN, HLD, hyperparathyroidism s/p parathyroidectomy, COPD, obesity, LENORA on CPAP, GERD who presented to [facility] on 10/05/23 for planned spine surgery due to cervical myelopathy with ortho-spine. Had hemoptysis after a fall recently and had anterior neck swelling/edema on CT so ENT also performed direct laryngoscopy/esophagoscopy prior to spine surgery which was unremarkable. Underwent C3-C6 laminectomies, C2-C7 instrumented posterior spinal fusion. Post-op, patient became flaccid on the right side. Code stroke called at [address] head and CTA brain/neck showed a large subgaleal scalp hematoma in the anterior right parietal region. MRI brain read pending but neurology reported small left occipital stroke which does not explain patient symptoms. MRI C-spine read pending but ortho reports epidural fluid collection spanning from C3-C6 with cord compression. Orthopedic surgery recommended close monitoring for now with MAP goal >80, q1h neuro checks. Labs pre-op showed ??Cr 7.81, Hgb 9.7, lactic 0.8. . EXAMINATION: ??MRI of the cervical spine without contrast TECHNIQUE: MRI of the cervical spine was performed without contrast according to standard protocol. COMPARISON: MRI of the cervical spine from 08/31/2023. CT of the cervical spine from 09/01/2023. Correlation with CT angiogram of the head the neck from 10/05/2023. FINDINGS: Redemonstration of postoperative findings of anterior cervical discectomy and fusion from C4 to C7 levels with anterior plate and paired anterior vertebral screws as well as interbody devices. Please refer to the prior CT for reported lucencies surrounding the C4 screws suggesting instrumentation loosening. Also please refer to the prior CT for extension of the C4 screws into the C3-C4 disc space. Overall findings appear grossly similar to the prior MRI from 08/31/2023. Compared to the prior MRI from 08/31/2023: There has been interval postoperative findings of posterior spinal decompression with C3-C6 laminectomies and C2-C7 instrumented posterior spinal fusion. Lateral mass screws are seen at the level of C2, C3, C4, C5 and C7 bilaterally, skipping the C6 level. Blooming artifacts from the hardware limits local evaluation. There is a prominent epidural hematoma, centimeters posterior to the thecal sac at the level of C3 but eccentric to the right from the inferior aspect of C3 down to the upper aspect of the C6 level. The hematoma is difficult to measure due to its irregular shape however based seen on the sagittal and axial T2-weighted images, for reference measuring approximately 2.3 x 1.5 cm in the transaxial dimensions, (series 5, image 15), and measuring approximately 4.7 cm craniocaudally, (series 2, image 12). There is varying degrees of compression on the thecal sac resulting in moderate to severe spinal canal stenosis and moderate to severe compression on the cervical cord, worst at the level of C3 and C4, and compressing the length of the C3 and C4 vertebral bodies, in other words extending from the level of C3-C4 down to mid the lower C6 level. There is displacement of the cord anteriorly and to the left, for reference, please see series 5, image 15-21). There is extension of the hematoma along the surgical incision in the laminectomy bed, with a diameter of approximately 3.5 cm at the level of C4, (series 5, image 17). Additional expected postsurgical changes of diffuse soft tissue fat stranding, soft tissue gas, soft tissue and hemorrhage resulting in blooming artifacts limiting local evaluation. The alignment is maintained compared to the prior. Limited evaluation of the vertebral bodies due to the presence of blooming artifacts from the hardware. Limited evaluation of the bone marrow signal due to the presence of blooming artifacts from the hardware.. The craniocervical junction appears normal. There is cord compression at the level of the above-mentioned postsurgical epidural hematoma. The remaining cord appears grossly unchanged compared to prior. Disruption of the posterior paraspinous soft tissues due to the presence of the above-mentioned surgery. Postsurgical changes limiting evaluation of the disc spaces. Moderate to severe spinal canal stenosis due to the presence of epidural hemorrhage, as detailed above. Limits evaluation of the facet joints due to the presence of the above-mentioned postsurgical changes. Limited evaluation of the uncovertebral joints due to the presence of the above-mentioned postsurgical changes. Limited evaluation of the neural foramina due to the presence of the above-mentioned postsurgical changes. As mentioned above, disruption of the posterior paraspinal soft tissues due to the recent surgery. Normal flow voids are identified in the vertebral arteries. The left vertebral artery is dominant. The right artery is a small in caliber.. Procedure Note Dilia Patel MD - 10/05/2023 PROCEDURE: MRI CERVICAL SPINE WO CONTRAST, DATE/TIME OF EXAM:10/05/2023 2:20 PM, LOCATION [facility] INDICATION: R53.1: Right sided weakness ADDITIONAL CLINICAL INFORMATION: Ordering Provider Reason For Exam: post op Technologist Note: BODY AND FENDER MECHANIC APPRENTICE MRI [id number] Does the patient have a pacemaker or defibrillator?->No Does the patient have metal implants or stents?->No Additional: 68 year old female with history of Afib s/p ablations(1992, 2016), nonobstructive CAD, HFrEF, T2DM, DVTs, ESRD on HD, TOVA, HTN, HLD, hyperparathyroidism s/p parathyroidectomy, COPD, obesity, LENORA on CPAP,GERD who presented to [facility] on 10/05/23 for planned spine surgery due tocervical myelopathy with ortho-spine. Had hemoptysis after a fall recently andhad anterior neck swelling/edema on CT so ENT also performed direct laryngoscopy/esophagoscopy prior to spine surgery which wasunremarkable. Underwent C3-C6 laminectomies, C2-C7 instrumented posterior spinalfusion. Post-op, patient became flaccid on the right side. Code stroke called at [address] head and CTA brain/neck showed a large subgalealscalp hematoma in the anterior right parietal region. MRI brain read pendingbut neurology reported small left occipital stroke which does not explain patient symptoms. MRI C-spine read pending but ortho reports epiduralfluid collection spanning from C3-C6 with cord compression. Orthopedic surgery recommended close monitoring for now with MAP goal >80, q1h neurochecks. Labs pre-op showed Cr 7.81, Hgb 9.7, lactic 0.8. . EXAMINATION: MRI of the cervical spine without contrast TECHNIQUE: MRI of the cervical spine was performed without contrast according to standard protocol. COMPARISON: MRI of the cervical spine from 08/31/2023. CT of the cervical spine from 09/01/2023. Correlation with CT angiogram of the head the neck from 10/05/2023. FINDINGS: Redemonstration of postoperative findings of anterior cervicaldiscectomy and fusion from C4 to C7 levels with anterior plate and paired anterior vertebral screws as well as interbody devices. Please refer to the priorCT for reported lucencies surrounding the C4 screws suggestinginstrumentation loosening. Also please refer to the prior CT for extension of the [id number] into the C3-C4 disc space. Overall findings appear grossly similar tothe prior MRI from 08/31/2023. Compared to the prior MRI from 08/31/2023: There has been interval postoperative findings of posterior spinal decompression with C3-C6 laminectomies and C2-C7 instrumented posterior spinal fusion. Lateral mass screws are seen at the level of C2, C3, C4,C5 and C7 bilaterally, skipping the C6 level. Blooming artifacts from the hardware limits local evaluation. There is a prominent epidural hematoma, centimeters posterior to thethecal sac at the level of C3 but eccentric to the right from the inferioraspect of C3 down to the upper aspect of the C6 level. The hematoma isdifficult to measure due to its irregular shape however based seen on the sagittal and axial T2-weighted images, for reference measuring approximately 2.3x 1.5 cm in the transaxial dimensions, (series 5, image 15), and measuring approximately 4.7 cm craniocaudally, (series 2, image 12). There isvarying degrees of compression on the thecal sac resulting in moderate to severe spinal canal stenosis and moderate to severe compression on the cervical cord, worst at the level of C3 and C4, and compressing the length of theC3 and C4 vertebral bodies, in other words extending from the level ofC3-C4 down to mid the lower C6 level. There is displacement of the cord anteriorly and to the left, for reference, please see series 5, image 15-21). There is extension of the hematoma along the surgical incisionin the laminectomy bed, with a diameter of approximately 3.5 cm at thelevel of C4, (series 5, image 17). Additional expected postsurgical changes of diffuse soft tissue fat stranding, soft tissue gas, soft tissue and hemorrhage resulting in blooming artifacts limiting local evaluation. The alignment is maintained compared to the prior. Limited evaluation of the vertebral bodies due to the presence of blooming artifacts from the hardware. Limited evaluation of the bone marrow signal due to thepresence of blooming artifacts from the hardware.. The craniocervical junction appears normal. There is cord compression at the level of the above-mentioned postsurgical epidural hematoma. The remaining cordappears grossly unchanged compared to prior. Disruption of the posterior paraspinous soft tissues due to the presence of the above-mentioned surgery. Postsurgical changes limiting evaluation of the disc spaces. Moderate to severe spinal canal stenosis due to the presence of epidural hemorrhage,as detailed above. Limits evaluation of the facet joints due to thepresence of the above-mentioned postsurgical changes. Limited evaluation of the uncovertebral joints due to the presence of the above-mentioned postsurgical changes. Limited evaluation of the neural foramina due tothe presence of the above-mentioned postsurgical changes. As mentionedabove, disruption of the posterior paraspinal soft tissues due to the recent surgery. Normal flow voids are identified in the vertebral arteries. The left vertebral artery is dominant. The right artery is a small incaliber.. IMPRESSION: Compared to the prior MRI of the cervical spine from 08/31/2023: 1.There has been interval postoperative findings of posterior spinal decompression with C3-C6 laminectomies and C2-C7 instrumented posterior spinal fusion. Lateral mass screws are seen at the level of C2, C3, C4,C5 and C7 bilaterally, skipping the C6 level. Blooming artifacts from the hardware limits local evaluation. 2.There is a prominent epidural hematoma, centimeters posterior to the thecal sac at the level of C3 but eccentric to the right from theinferior aspect of C3 down to the upper aspect of the C6 level, measuring approximately 2.3 x 1.5 x 4.7 cm in the transaxial and craniocaudal dimensions. There is moderate to severe compression on the posterior and the left posterolateral aspects of the thecal sac and moderate to severe cord compression, extending from the level of C3 to the level of C6. 3.Additional expected postsurgical changes as detailed above. 4.Additional remote postsurgical changes of ACDF as detailed above. These findings were discussed in detail with the patient's careprovider, Mendy Tidwell RN (PACU) by Dr. Osmar Pereira via telephone [id number] hours on 10/05/2023 with readback comprehension and verification. These findings were discussed in detail with the patient's careprovider, Wade Bustamante MD by Dr. Osmar Brand-Cheikh via telephone at 1541 hourson 10/05/2023 with readback comprehension and verification. These findings were discussed in detail with the patient's careprovider, Alysia Cruz MD by Dr. Osmar Pereira via telephone at 1541hours on 10/05/2023 with readback comprehension and verification. Report dictated by Osmar Pereira MD, PhD (cath lab radiology technician). I, Dilia Patel MD have personally reviewed and interpretedthis examination/study. > Interpreting Provider: Dilia Patel MD on 10/05/2023 8:23 PM Alysia Cruz GAS SHOVEL OPERATOR-COMPUTER INFORMATION SYSTEMS PROFESSOR MR ORDERABLES * MRI Brain Wo Contrast (10/05/2023 2:20 PM CDT) Only the most recent of2 resultswithin the time period is included. Anatomical Region Laterality Modality Head Magnetic Resonan ce 10/06/2023 8:01 AM CDT Impressions 10/06/2023 8:33 AM CDT IMPRESSION: 1.There is a small focus of abnormal diffusion, possibly with faint restricted diffusion in the medial left parieto-occipital region, compatible with a small acute to subacute infarct. No evidence of hemorrhagic transformation. 2.Additional multiple foci of susceptibility artifacts in a distribution suggestive of hypertensive microangiopathy. 3.Partially imaged postsurgical changes in the neck with extension of the postsurgical changes to the soft tissues of the suboccipital region from the upper aspect of the neck, with T2/FLAIR signal compatible with expected postsurgical changes. There is a partially visualized epidural hematoma in the upper sac of the neck measuring approximately 5 mm in thickness, (series 4, image 1). Please refer to the separately dictated MRI of the cervical spine for additional details. These findings were discussed in detail with the patient's care provider, Dr. Angel Kwong by Dr. Osmar Pereira via telephone at 0822 hours on 10/06/2023 with readback comprehension and verification. > Interpreting Provider: Dilia Patel MD on 10/06/2023 8:33 AM Narrative 10/06/2023 8:33 AM CDT PROCEDURE: ??MRI BRAIN WO CONTRAST, DATE/TIME OF EXAM: ??10/05/2023 2:20 PM, LOCATION ??[facility] INDICATION: R53.1: Right sided weakness ADDITIONAL CLINICAL INFORMATION: Ordering Provider Reason For Exam: ??right weakness Technologist Note: ??Does the patient have a pacemaker or defibrillator?->No Does the patient have metal implants or stents?->No Additional: ??None. EXAMINATION: Magnetic resonance imaging (MRI) of the brain without contrast TECHNIQUE: MRI of the brain was performed without contrast according to standard protocol. COMPARISON: CT of the head and CT angiogram of the head the neck from 10/05/2023 at approximately 1:14 PM FINDINGS: Partially imaged postsurgical changes in the neck with extension of the postsurgical changes to the soft tissues of the suboccipital region from the upper aspect of the neck, with T2/FLAIR signal compatible with expected postsurgical changes. There is a partially visualized epidural hematoma in the upper thecal sac of the neck measuring approximately 5 mm in thickness, (series 4, image 1). Please refer to the separately dictated MRI of the cervical spine for additional details. There is a tiny focus of susceptibility artifacts in the right posterior temporal/temporoparietal region adjacent to the trigone of the right lateral ventricle, compatible with the prior microhemorrhage. Additional punctate foci of susceptibility artifacts in the perry likely representing prior microhemorrhages and may represent the sequela of hypertensive microangiopathy. Small foci of susceptibility artifacts along the superior frontal convexities, likely related to dural calcifications. Susceptibility artifacts in the basal ganglia compatible with mineralization. Otherwise, no evidence of acute or chronic hemorrhage is identified. There is a tiny focus of restricted diffusion in the anteromedial left occipitoparietal region, (series 3, image 13), compatible with and evolving tiny acute to subacute infarct. There is mild cerebral volume loss with associated ex vacuo ventricular dilatation. No mass effect or midline shift is seen. Periventricular, subcortical, and pontine white matter FLAIR hyperintensities likely represent sequelae of chronic small vessel ischemic disease. The vertebrobasilar, particularly the left vertebral artery is tortuous, indenting the medulla oblongata at the anterior left aspect. Mild thinning of the corpus callosum. The pituitary height measures approximately 4 mm. The sella and the corpus callosum appears otherwise grossly unremarkable. The posterior fossa, brainstem, and craniocervical junction appear otherwise grossly unremarkable. Other than bilateral cataract extractions, the visualized portions of the orbits appear grossly unremarkable. Trace mucosal thickening in the ethmoid air cells. There is fluid signal in the right mastoid air cells. The paranasal sinuses and mastoid air cells appear otherwise grossly clear. Normal flow voids are demonstrated in the carotid arteries and basilar artery. Decreased bone marrow signal of the calvarium is a nonspecific finding but can be seen with anemia, in the appropriate clinical setting. The calvarium appears otherwise grossly unremarkable. Redemonstration of bilateral temporal parietal soft tissue swelling/hematomas, more prominent on the right side with hematoma measuring approximately 1.0 cm in thickness. Procedure Note Dilia Patel MD - 10/06/2023 PROCEDURE: MRI BRAIN WO CONTRAST, DATE/TIME OF EXAM: 10/05/2023 2:20PM, LOCATION [facility] INDICATION: R53.1: Right sided weakness ADDITIONAL CLINICAL INFORMATION: Ordering Provider Reason For Exam: right weakness Technologist Note: Does the patient have a pacemaker ordefibrillator?->No Does the patient have metal implants or stents?->No Additional: None. EXAMINATION: Magnetic resonance imaging (MRI) of the brain withoutcontrast TECHNIQUE: MRI of the brain was performed without contrast according to standard protocol. COMPARISON: CT of the head and CT angiogram of the head the neck from 10/05/2023 at approximately 1:14 PM FINDINGS: Partially imaged postsurgical changes in the neck with extension of the postsurgical changes to the soft tissues of the suboccipital region from the upper aspect of the neck, with T2/FLAIR signal compatible withexpected postsurgical changes. There is a partially visualized epidural hematomain the upper thecal sac of the neck measuring approximately 5 mm inthickness, (series 4, image 1). Please refer to the separately dictated MRI of the cervical spine for additional details. There is a tiny focus of susceptibility artifacts in the right posterior temporal/temporoparietal region adjacent to the trigone of the right lateral ventricle, compatible with the prior microhemorrhage. Additional punctate foci of susceptibility artifacts in the perry likelyrepresenting prior microhemorrhages and may represent the sequela of hypertensive microangiopathy. Small foci of susceptibility artifacts along thesuperior frontal convexities, likely related to dural calcifications.Susceptibility artifacts in the basal ganglia compatible with mineralization.Otherwise, no evidence of acute or chronic hemorrhage is identified. There is atiny focus of restricted diffusion in the anteromedial left occipitoparietal region, (series 3, image 13), compatible with and evolving tiny acute to subacute infarct. There is mild cerebral volume loss with associated ex vacuo ventricular dilatation. No mass effect or midline shift is seen. Periventricular, subcortical, and pontine white matter FLAIR hyperintensities likely represent sequelae of chronic small vesselischemic disease. The vertebrobasilar, particularly the left vertebral artery is tortuous, indenting the medulla oblongata at the anterior left aspect.Mild thinning of the corpus callosum. The pituitary height measures approximately 4 mm. The sella and the corpus callosum appears otherwise grossly unremarkable. The posterior fossa, brainstem, and craniocervical junction appear otherwise grossly unremarkable. Other than bilateral cataract extractions, the visualized portions ofthe orbits appear grossly unremarkable. Trace mucosal thickening in theethmoid air cells. There is fluid signal in the right mastoid air cells. The paranasal sinuses and mastoid air cells appear otherwise grossly clear. Normal flow voids are demonstrated in the carotid arteries and basilar artery. Decreased bone marrow signal of the calvarium is a nonspecific finding but can be seen with anemia, in the appropriate clinicalsetting. The calvarium appears otherwise grossly unremarkable. Redemonstration of bilateral temporal parietal soft tissue swelling/hematomas, moreprominent on the right side with hematoma measuring approximately 1.0 cm in thickness. IMPRESSION: 1.There is a small focus of abnormal diffusion, possibly with faint restricted diffusion in the medial left parieto-occipital region, compatible with a small acute to subacute infarct. No evidence of hemorrhagic transformation. 2.Additional multiple foci of susceptibility artifacts in a distribution suggestive of hypertensive microangiopathy. 3.Partially imaged postsurgical changes in the neck with extension ofthe postsurgical changes to the soft tissues of the suboccipital region from the upper aspect of the neck, with T2/FLAIR signal compatible withexpected postsurgical changes. There is a partially visualized epidural hematomain the upper sac of the neck measuring approximately 5 mm in thickness, (series 4, image 1). Please refer to the separately dictated MRI of the cervical spine for additional details. These findings were discussed in detail with the patient's careprovider, Dr. Angel Kwong by Dr. Osmar Pereira via telephone at 0822hours on 10/06/2023 with readback comprehension and verification. > Interpreting Provider: Dilia Patel MD on 10/06/2023 8:33 AM Velasquez Laughlin GAS SHOVEL OPERATOR-COMPUTER INFORMATION SYSTEMS PROFESSOR MR ORDERABLES * CT Angio Brain Neck Stroke (10/05/2023 1:23 PM CDT) Anatomical Region Laterality Modality Head Computed Tomogra phy 10/05/2023 1:43 PM CDT Impressions 10/05/2023 1:53 PM CDT IMPRESSION: 1. No acute intracranial hemorrhage. 2. No large arterial occlusions or significant stenoses identified in the head or neck. 3. 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 4. Extensive postoperative changes of anterior and posterior spinal fusion in the cervical spine as detailed above. > Interpreting Provider: Mony Rowell MD on 10/05/2023 1:53 PM Narrative 10/05/2023 1:53 PM CDT PROCEDURE: ??CT ANGIO BRAIN NECK STROKE, DATE/TIME OF EXAM: ??10/05/2023 1:29 PM, LOCATION ??[facility] INDICATION: R53.1: Right sided weakness ADDITIONAL CLINICAL INFORMATION: Ordering Provider Reason For Exam: Technologist Note: Additional: EXAMINATION: 1. Computed tomographic (CT) angiography of the head with contrast 2. CT angiography of the neck with contrast TECHNIQUE: CT angiography of the head and neck was obtained after the uneventful administration of intravenous contrast. Three dimensional postprocessing was performed by the technologist and sent to the workstation for review. CONTRAST: IOPAMIDOL 76 % IV SOLN:100 mL COMPARISON: No prior study is available for comparison at the time of this dictation. FINDINGS: Non-angiographic findings: Please refer to the report of a concurrent noncontrasted head CT for detailed intracranial findings. Postoperative changes of extensive recent anterior and posterior spinal fusion including: Anterior cervical dissection and fusion at C4-C7 levels with an anterior plate, multiple vertebral screws and intervertebral devices. The right C4 screw extends into the C3-C4 disc space. Postoperative changes of posterior spinal fusion at C2-C7 levels with 2 vertical rods and multiple paired lateral mass screws. Laminotomies at C3 but C6 levels with decompressed central canal. Extensive prevertebral soft tissue edema and paraspinal and scattered air locules are likely postoperative changes. Significant streaky and beam hardening artifacts partially obscure the adjacent structures of the spinal fusion instrumentation. A surgical drain is in place. Incompletely imaged severe airspace opacities in the measures portions of upper lungs may represent pulmonary edema, atelectasis versus pneumonia. Clinical correlation is recommended. Angiographic findings: Neck: There is atherosclerotic disease of the aortic arch. The configuration of the brachiocephalic vessels is typical. There is scattered atherosclerotic calcification of the innominate and subclavian arteries. There is scattered atherosclerotic disease in the right common carotid artery, the right carotid bifurcation and origin and the distal portion of the right internal carotid artery. No hemodynamically significant stenosis is noted in the right common and internal carotid arteries. There is scattered atherosclerotic disease in the left common carotid artery, the left carotid bifurcation and origin and the distal portion of the left internal carotid artery. No hemodynamically significant stenosis is noted in the left common and internal carotid arteries. There is atherosclerotic disease in the cervical vertebral arteries without significant focal stenosis. The right vertebral artery is dominant. Head: There is atherosclerotic disease involving the distal internal carotid arteries without significant focal stenosis. The anterior cerebral arteries are patent. The middle cerebral arteries ??are patent. The posterior cerebral arteries are patent. The distal vertebral arteries are patent. The basilar artery is patent patent. 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 Procedure Note Mony Rowell MD - 10/05/2023 PROCEDURE: CT ANGIO BRAIN NECK STROKE, DATE/TIME OF EXAM: :29 PM, LOCATION [facility] INDICATION: R53.1: Right sided weakness ADDITIONAL CLINICAL INFORMATION: Ordering Provider Reason For Exam: Technologist Note: Additional: EXAMINATION: 1. Computed tomographic (CT) angiography of the head with contrast 2. CT angiography of the neck with contrast TECHNIQUE: CT angiography of the head and neck was obtained after the uneventful administration of intravenous contrast. Three dimensional postprocessing was performed by the technologist and sent to the workstation for review. CONTRAST: IOPAMIDOL 76 % IV SOLN:100 mL COMPARISON: No prior study is available for comparison at the time ofthis dictation. FINDINGS: Non-angiographic findings: Please refer to the report of a concurrent noncontrasted head CT for detailed intracranial findings. Postoperative changes of extensive recent anterior and posterior spinal fusion including: Anterior cervical dissection and fusion at C4-S0lmgqhb with an anterior plate, multiple vertebral screws and intervertebral devices. The right C4 screw extends into the C3-C4 disc space. Postoperative changes of posterior spinal fusion at C2-C7 levels with 2 vertical rods and multiple paired lateral mass screws. Laminotomies atC3 but C6 levels with decompressed central canal. Extensive prevertebralsoft tissue edema and paraspinal and scattered air locules are likely postoperative changes. Significant streaky and beam hardening artifacts partially obscure the adjacent structures of the spinal fusion instrumentation. A surgical drain is in place. Incompletely imaged severe airspace opacities in the measures portionsof upper lungs may represent pulmonary edema, atelectasis versus pneumonia. Clinical correlation is recommended. Angiographic findings: Neck: There is atherosclerotic disease of the aortic arch. The configurationof the brachiocephalic vessels is typical. There is scatteredatherosclerotic calcification of the innominate and subclavian arteries. There isscattered atherosclerotic disease in the right common carotid artery, the right carotid bifurcation and origin and the distal portion of the rightinternal carotid artery. No hemodynamically significant stenosis is noted in the right common and internal carotid arteries. There is scattered atherosclerotic disease in the left common carotid artery, the leftcarotid bifurcation and origin and the distal portion of the left internalcarotid artery. No hemodynamically significant stenosis is noted in the leftcommon and internal carotid arteries. There is atherosclerotic disease in the cervical vertebral arteries without significant focal stenosis. Theright vertebral artery is dominant. Head: There is atherosclerotic disease involving the distal internal carotid arteries without significant focal stenosis. The anterior cerebralarteries are patent. The middle cerebral arteries are patent. The posterior cerebral arteries are patent. The distal vertebral arteries are patent.The basilar artery is patent patent. 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 IMPRESSION: 1. No acute intracranial hemorrhage. 2. No large arterial occlusions or significant stenoses identified inthe head or neck. 3. 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 4. Extensive postoperative changes of anterior and posterior spinalfusion in the cervical spine as detailed above. > Interpreting Provider: Mony Rowell MD on 10/05/2023 1:53 PM Velasquez Laughlin GAS SHOVEL OPERATOR-COMPUTER INFORMATION SYSTEMS PROFESSOR CT ORDERABLES * (ABNORMAL) CREATININE - POCT INTERFACED (10/05/2023 1:20 PM CDT) Only the most recent of2 resultswithin the time period is included. Creatinine POCT 5.85(H) 0.30 - 1.30 mg/dL 10/05/2023 1:31 PM CDT [facility] eGFR 7(L) >=90 mL/min/1.7 3 m2 10/05/2023 1:31 PM CDT [facility] Blood BLOOD SPECIMEN / Unknown 10/05/2023 1:20 PM CDT 10/05/2023 1:31 PM CDT Ryland Fuentes MD LAB - POINT OF CARE ORDERABLES Performing Organization Address City/State/[facility] Co de Phone Number [facility] [address] [place] [address], [facility] [phone] * CT Brain Stroke (10/05/2023 1:19 PM CDT) Anatomical Region Laterality Modality Head Computed Tomogra phy 10/05/2023 1:26 PM CDT Impressions 10/05/2023 1:30 PM CDT IMPRESSION: 1. No acute intracranial process. 2. A large subgaleal scalp hematoma in the anterior right parietal region. Postoperative changes of frontal spinal fusion is partially imaged. These findings were discussed in detail with the patient's care provider, Dr. Allen by Dr. Rowell via telephone at 1:30 PM on 10/05/2023 with readback comprehension and verification. > Interpreting Provider: Mony Rowell MD on 10/05/2023 1:30 PM Narrative 10/05/2023 1:30 PM CDT PROCEDURE: ??CT BRAIN STROKE, DATE/TIME OF EXAM: ??10/05/2023 1:19 PM, LOCATION ??[facility] INDICATION: R53.1: Right sided weakness ADDITIONAL CLINICAL INFORMATION: Ordering Provider Reason For Exam: ??right arm weakness Technologist Note: Additional: TECHNIQUE: CT of the head was performed without contrast according to standard protocol. CONTRAST: COMPARISON: No prior study is available for comparison at the time of this dictation. FINDINGS: No acute intracranial hemorrhage or intra- or extra-axial fluid collections are identified. There is mild cerebral volume loss with associated ex vacuo ventricular dilatation. The basal cisterns are patent. No mass effect or midline shift is seen. The torres-white matter differentiation is normal. Periventricular white matter hypoattenuation is a nonspecific finding that may be indicative of chronic small vessel ischemic disease. There is atherosclerotic calcification of the carotid siphons. The visualized portions of the orbits, paranasal sinuses, and mastoids appear normal. No acute calvarial fracture is identified. There is a large subgaleal scalp hematoma in the anterior right parietal region. Postoperative changes of frontal spinal fusion is partially imaged. Procedure Note Mony Rowell MD - 10/05/2023 PROCEDURE: CT BRAIN STROKE, DATE/TIME OF EXAM: 10/05/2023 1:19 PM, LOCATION [facility] INDICATION: R53.1: Right sided weakness ADDITIONAL CLINICAL INFORMATION: Ordering Provider Reason For Exam: right arm weakness Technologist Note: Additional: TECHNIQUE: CT of the head was performed without contrast according to standard protocol. CONTRAST: COMPARISON: No prior study is available for comparison at the time ofthis dictation. FINDINGS: No acute intracranial hemorrhage or intra- or extra-axial fluidcollections are identified. There is mild cerebral volume loss with associated exvacuo ventricular dilatation. The basal cisterns are patent. No mass effect or midline shift is seen. The torres-white matter differentiation is normal. Periventricular white matter hypoattenuation is a nonspecific findingthat may be indicative of chronic small vessel ischemic disease. There is atherosclerotic calcification of the carotid siphons. The visualized portions of the orbits, paranasal sinuses, and mastoids appear normal. No acute calvarial fracture is identified. There is a large subgalealscalp hematoma in the anterior right parietal region. Postoperative changes of frontal spinal fusion is partially imaged. IMPRESSION: 1. No acute intracranial process. 2. A large subgaleal scalp hematoma in the anterior right parietalregion. Postoperative changes of frontal spinal fusion is partially imaged. These findings were discussed in detail with the patient's careprovider, Dr. Allen by Dr. Rowell via telephone at 1:30 PM on 10/05/2023 with readback comprehension and verification. > Interpreting Provider: Mony Rowell MD on 10/05/2023 1:30 PM Velasquez Laughlin G[employer]EL OPERATOR-COMPUTER INFORMATION SYSTEMS PROFESSOR CT ORDERABLES * [place] [facility] (10/05/2023 10:59 AM CDT) Only the most recent of2 resultswithin the time period is included. Narrative [facility] - 10/05/2023 10:59 AM CDT Fluoroscopy was used for this exam in the OR. Please see the Operative report. Ryland Fuentes MD FLUOROSCOPY ORDERABL ES [facility] * ETT LINE PERFORMABLE (10/05/2023 8:31 AM CDT) Narrative Almita Merida APRN-CRNA - 10/05/2023 8:31 AM CDT Almita Merida APRN-CRNA ? 10/05/2023 ??8:32 AM Endotracheal Tube Placement: ? Patient Location: OR. Intubation Event Date/Time: ??10/05/2023 7:47 AM Procedure: intubation ([id number]) Procedure Section: ?? Sedation: under general anesthesia. Indications for Airway Management: ??anesthesia Procedure pretreatments used? ??No Induction: standard IV Patient Position: ??sniffing Mask Ventilation: easy. Blade Type: Video Blade Size: 4 Laryngoscopy View: grade 1 (full cords) Intubation Adjuncts: stylet Tube: endotracheal tube Placement: oral Tube type: cuff - inflated Tube Size (MM): 7 Depth of Insertion (CM): 21 Measured From: teeth Cuff volume (mL): ??7 Cuff Inflated With: air Number of Attempts: 1. Placement Verified By: direct visualization, bilateral breath sounds, chest auscultation and CO2 monitor CXR Findings: ETT in proper place. Tube secured with: ??adhesive tape. Dentition unchanged? ??Yes Difficult Airway? ??No. Procedure Start Time: 10/05/2023 7:47 AM. Staff Section ? Anesthesia Provider: Almita Merida APRN-CRNA, Performed the procedure ? Provider #1: Valeriano Milan MD. Additional Comments: Easy mask ventilation. Good mouth opening. Proview 4 used to obtain grade 1 view. . Valeriano Milan MD GENERAL ANESTHESI A ORDERABLES * IV PLACEMENT PERFORMABLE (10/05/2023 8:30 AM CDT) Narrative Almita Merida APRN-CRNA - 10/05/2023 8:30 AM CDT Almita Merida APRN-CRNA ? 10/05/2023 ??8:31 AM Peripheral IV Line Placement: Patient Location: ??OR Insertion Time: ??10/05/2023 7:40 AM Procedure: IV start ([id number]) Procedure Section: ?? Skin Prep: alcohol. Orientation: right Location: foot Local Anesthetic Used? ??No Catheter Gauge: 18 Number of Attempts: 1. Procedure Tolerance: performed while patient under general anesthesia. Staff Section ? Anesthesia Provider: Almita Merida APRN-CRNA, Performed the procedure ? Provider #1: Valeriano Milan MD. Valeriano Milan MD GENERAL ANESTHESI A ORDERABLES * IV PLACEMENT PERFORMABLE (10/05/2023 8:30 AM CDT) Narrative Almita Merida APRN-CRNA - 10/05/2023 8:30 AM CDT Almita Merida APRN-CRNA ? 10/05/2023 ??8:30 AM Peripheral IV Line Placement: Patient Location: ??OR Insertion Time: ??10/05/2023 7:57 AM Procedure: IV start ([id number]) Procedure Section: ?? Skin Prep: alcohol. Orientation: right Location: forearm Local Anesthetic Used? ??No Catheter Gauge: 16 Number of Attempts: 1. Procedure Tolerance: performed while patient under general anesthesia. Staff Section ? Anesthesia Provider: Valeriano Milan MD, Performed the procedure ? Provider #1: Almita Merida APRN-CRNA. Valeriano Milan MD GENERAL ANESTHESI A ORDERABLES * ARTERIAL LINE PERFORMABLE (10/05/2023 8:29 AM CDT) Narrative Almita Merida APRN-CRNA - 10/05/2023 8:29 AM CDT Almita Merida APRN-CRNA ? 10/05/2023 ??8:30 AM Arterial Line Placement Procedure Note Patient Location: OR. Insertion Time: 10/05/2023 7:53 AM Procedure: Arterial Line ([id number]) Procedure Section ?? Indications: continuous blood pressure monitoring. Consent: informed consent was obtained for the procedure. Skin Prep: Chloraprep. Orientation: Right. Site: radial. Site Identification: ultrasound guided with sterile sleeve and gel. Sterile Technique: cap and mask. Gauge: 20. Catheter Length: 1 and 3/4 inch. Catheter Type: Arrow. Seldinger Technique Used? ??No Number of Attempts: 1. Line Secured with: Tegaderm (CHG tegederm). Procedure Tolerance: performed while patient under general anesthesia. Patient Sedated? ??Yes Local Anesthetic Used? ??No Sedation Types: general anesthesia Staff Section ? Anesthesia Provider: Valeriano Milan MD, Performed the procedure ? Provider #1: Almita Merida APRN-CRNA. Valeriano Milan MD GENERAL ANESTHESI A ORDERABLES * HEMOGLOBIN A1C - POINT OF CARE (AMB) (09/25/2023 12:47 PM CDT) Only the most recent of4 resultswithin the time period is included. Hemoglobin A1c POCT 5.4 % [facility] Expiration Date 06/07/2025 [facility] Lot # [id number] [facility] QC Verified Yes Yes [facility] Blood BLOOD SPECIMEN / Unknown 09/25/2023 12:47 PM CDT Liss Gooden MD LAB - POINT OF CARE ORDERABLES [facility] [id number] [phone] * ZINC BLOOD (08/31/2023 9:02 AM CDT) Zinc 87.1 60.0 - 120.0 ug/dL 09/02/2023 2:[address] [employer] ([facility]) Comment: INTERPRETIVE INFORMATION: Zinc, Serum or Plasma Elevated results may be due to skin or collection-related contamination, including the use of a noncertified metal-free collection/transport tube. If contamination concerns exist due to elevated levels of serum/plasma zinc, confirmation with a second specimen collected in a certified metal-free tube is recommended. Circulating zinc concentrations are dependent on albumin status and are depressed with malnutrition. ??Zinc may also be lowered with infection, inflammation, stress, oral contraceptives, and . ??Zinc may be elevated with zinc supplementation or fasting. ??Elevated zinc concentrations may interfere with copper absorption. This test was developed and its performance characteristics determined by [facility]. It has not been cleared or approved by the [place] Food and Drug Administration. This test was performed in a CLIA certified laboratory and is intended for clinical purposes. Performed By: [facility] [employer] [address] [place] [address] Service Coordinator Elderly Facility: Ayan Akins MD, PhD CLIA Number: [id number] Blood BLOOD SPECIMEN / Unknown Lab Venipuncture / Unknown 08/31/2023 9:02 AM CDT 08/31/2023 9:26 AM CDT [facility] - CHEMISTRY [facility]ASHID [facility]FANTE Performing Organization Address City/[facility]/ZIP Co de Phone Number [facility] ([facility]) [address] [place] [address] * T3 FREE (08/31/2023 9:02 AM CDT) Only the most recent of2 resultswithin the time period is included. Pathologist [facility] T3 Free 2.1 1.7 - 3.7 pg/mL 08/31/2023 10:35 AM CDT [facility] Blood BLOOD SPECIMEN / Unknown Lab Venipuncture / Unknown 08/31/2023 9:02 AM CDT 08/31/2023 9:29 AM CDT [facility] - CHEMI[facility] [address] [address], [facility] [phone] * VITAMIN D 1,25 DIHYDROXY (08/31/2023 9:02 AM CDT) Pathologist [facility] Vitamin D, 1,25 Dihydroxy 48.2 19.9 - 79.3 pg/mL 09/02/2023 9:20 AM CDT [facility] ([facility]) Comment: INTERPRETIVE INFORMATION: Vitamin D, 1,25-Dihydroxy This test is primarily indicated during patient evaluation for hypercalcemia and renal failure. A normal result does not rule out Vitamin D deficiency. The recommended test for diagnosing Vitamin D deficiency is Vitamin D 25-hydroxy. Performed By: [facility] [address] [place] [address] Service Coordinator Elderly Facility: Ayan Akins MD, PhD CLIA Number: [id number] Blood BLOOD SPECIMEN / Unknown Lab Venipuncture / Unknown 08/31/2023 9:02 AM CDT 08/31/2023 9:26 AM CDT [facility] - CHEMISTRY [facility]ID INFAN[facility]) [address] [place] [address] * IRON BLOOD (08/31/2023 9:02 AM CDT) Only the most recent of6 resultswithin the time period is included. Pathologist [facility] Iron 53 40 - 150 ug/dL 08/31/2023 9:53 AM CDT [facility] Blood BLOOD SPECIMEN / Unknown Lab Venipuncture / Unknown 08/31/2023 9:02 AM CDT 08/31/2023 9:26 AM CDT [facility] - CHEMI[facility] [address] [address], [facility] [phone] * FOLATE (08/31/2023 9:02 AM CDT) Only the most recent of2 resultswithin the time period is included. Pathologist [facility] Folate 27.4 7.0 - 31.4 ng/mL 08/31/2023 11:23 AM CDT [facility] Comment:Result obtained by adolfo pereira. Blood BLOOD SPECIMEN / Unknown Lab Venipuncture / Unknown 08/31/2023 9:02 AM CDT 08/31/2023 9:29 AM CDT [facility] - CHEMISTRY [facility]ASHID [facility]FANTE Performing Organization Address City/[facility]/ZIP Co de Phone Number [facility] [address] [place] [address], [place] [phone] * VITAMIN B12 (08/31/2023 9:02 AM CDT) Only the most recent of2 resultswithin the time period is included. Vitamin B12 776 213 - 816 pg/mL 08/31/2023 11:25 AM CDT [facility] Blood BLOOD SPECIMEN / Unknown Lab Venipuncture / Unknown 08/31/2023 9:02 AM CDT 08/31/2023 9:29 AM CDT [facility] - CHEMISTRY [facility]ASHID [facility]FANTE Performing Organization Address [facility]/ZIP Co de Phone Number [address] [address], [place] [phone] * (ABNORMAL) TSH (08/31/2023 9:02 AM CDT) Only the most recent of12 resultswithin the time period is included. TSH 5.937(H) 0.350 - 4.940 uIU/mL 08/31/2023 11:25 AM CDT [facility] Blood BLOOD SPECIMEN / Unknown Lab Venipuncture / Unknown 08/31/2023 9:02 AM CDT 08/31/2023 9:29 AM CDT [facility] - CHEMI[facility]Y [facility]ID [facility] Performing Organization Address City/[facility]/ZIP Co de Phone Number [address] [address], [place] [phone] * T4 FREE (08/31/2023 9:02 AM CDT) Only the most recent of4 resultswithin the time period is included. T4 Free 0.9 0.7 - 1.5 ng/dL 08/31/2023 11:25 AM CDT [facility] Blood BLOOD SPECIMEN / Unknown Lab Venipuncture / Unknown 08/31/2023 9:02 AM CDT 08/31/2023 9:29 AM CDT [facility] - CHEMISTRY [employer] Performing Organization Address City/[facility]/ZIP Co de Phone Number [facility] [address] [place] [address], [facility] [phone] * (ABNORMAL) FERRITIN (08/31/2023 9:02 AM CDT) Only the most recent of7 resultswithin the time period is included. Ferritin 1,757(H) 13 - 204 ng/mL 08/31/2023 10:42 AM CDT [facility] Comment:Result obtained by adolfo pereira. Blood BLOOD SPECIMEN / Unknown Lab Venipuncture / Unknown 08/31/2023 9:02 AM CDT 08/31/2023 9:26 AM CDT [facility] - CHEMISTRY [email or web address] Performing Organization Address City/[facility]/ZIP Co de Phone Number [facility] [address] [place] [address], [place] [phone] * MRI CERVICAL SPINE WWO CONT (08/31/2023 8:39 AM CDT) Anatomical Region Laterality Modality Spine Magnetic Resonan ce 09/06/2023 3:44 PM CDT Impressions 09/06/2023 3:56 PM CDT IMPRESSION: 1. Redemonstration of postoperative changes of anterior cervical discectomy and fusion at C4-C7 levels with an anterior plate and paired anterior vertebral screws as well as interbody devices. 2. Mild to moderate prevertebral and retropharyngeal soft tissue thickening/edema and enhancement at C1-C4 levels and mild edema and enhancement along the inferior endplate of C3 may represent postoperative changes or increased degenerative disease related to the fusion of the lower levels, although infection involving the C3-C4 disc space in right clinical setting. No drainable fluid collections are identified to suggest a drainable abscess. Please correlate clinically. 3. Redemonstration of multilevel degenerative disc and joint disease in the cervical spine. > Interpreting Provider: Mony Rowell MD on 09/06/2023 3:56 PM Narrative 09/06/2023 3:56 PM CDT PROCEDURE: ??MRI CERVICAL SPINE WWO CONT, DATE/TIME OF EXAM: ??08/31/2023 8:55 AM, LOCATION ??[facility] INDICATION: Z98.1: S/P cervical spinal fusion ADDITIONAL CLINICAL INFORMATION: Ordering Provider Reason For Exam: ??eval possible infection Technologist Note: Additional: EXAMINATION: Magnetic resonance imaging (MRI) of the cervical spine without and with contrast TECHNIQUE: MRI of the cervical spine was performed prior to and following the uneventful administration of 14 mL Gadavist intravenous contrast according to standard protocol. FINDINGS: CT of the cervical spine dated 08/22/2023. Redemonstration of postoperative changes of anterior cervical discectomy and fusion at C4-C7 levels with an anterior plate and paired anterior vertebral screws as well as interbody devices. The instrumentation is better seen on the prior examination. Mild to moderate prevertebral and retropharyngeal soft tissue thickening and enhancement at C1-C4 levels are redemonstrated. There is mild edema and enhancement along the inferior endplate of C3. Although these may represent postsurgical changes, infection involving the C3-C4 disc space cannot be excluded. No drainable fluid collections are identified to suggest a drainable abscess. Vertebral bodies are normal in height without evidence of acute fracture. Other than middle atlantoaxial joint osteoarthritis, the craniocervical junction appears normal. Multilevel varying degrees of mild to advanced degenerative disc and joint disease is noted in the cervical spine as detailed below. The cervical spinal cord is grossly unremarkable, although evaluation of the spinal cord is degraded by motion artifacts and the blooming artifacts from spinal fusion instrumentation. C2-3: There is mild disc bulge and ligamentum flavum thickening. There is mild central canal stenosis. There is moderate right and mild facet osteoarthritis. There is moderate right and mild uncovertebral joint osteoarthritis. There is no neural foraminal stenosis. C3-4: There is a posterior disc osteophyte complex abutting the ventral surface of the spinal cord. There is ligamentum flavum thickening There is moderate central canal stenosis. There is moderate bilateral facet osteoarthritis. There is moderate bilateral uncovertebral joint osteoarthritis. There is moderate bilateral neural foraminal stenosis. C4-5: This level is fused. There is mild central canal and neuroforaminal stenosis. C5-6: This level is fused. There is mild central canal and neuroforaminal stenosis. C6-7: This level is fused. The central canal and neuroforamina are patent. C7-T1: There is mild posterior central disc bulge. There is no central canal stenosis. There is mild facet osteoarthritis. There is mild uncovertebral joint osteoarthritis. There is no neural foraminal stenosis. Procedure Note Mony Rowell MD - 09/06/2023 PROCEDURE: MRI CERVICAL SPINE WWO CONT, DATE/TIME OF EXAM: 48:55 AM, LOCATION [facility] INDICATION: Z98.1: S/P cervical spinal fusion ADDITIONAL CLINICAL INFORMATION: Ordering Provider Reason For Exam: eval possible infection Technologist Note: Additional: EXAMINATION: Magnetic resonance imaging (MRI) of the cervical spinewithout and with contrast TECHNIQUE: MRI of the cervical spine was performed prior to andfollowing the uneventful administration of 14 mL Gadavist intravenous contrast according to standard protocol. FINDINGS: CT of the cervical spine dated 08/22/2023. Redemonstration of postoperative changes of anterior cervical discectomy and fusion at C4-C7 levels with an anterior plate and paired anterior vertebral screws as well as interbody devices. The instrumentation is better seen on the prior examination. Mild to moderate prevertebral and retropharyngeal soft tissue thickening and enhancement at C1-C4 levels are redemonstrated. There is mild edemaand enhancement along the inferior endplate of C3. Although these mayrepresent postsurgical changes, infection involving the C3-C4 disc space cannot be excluded. No drainable fluid collections are identified to suggest a drainable abscess. Vertebral bodies are normal in height without evidence of acutefracture. Other than middle atlantoaxial joint osteoarthritis, the craniocervical junction appears normal. Multilevel varying degrees of mild to advanced degenerative disc and joint disease is noted in the cervical spine as detailed below. The cervical spinal cord is grossly unremarkable,although evaluation of the spinal cord is degraded by motion artifacts and the blooming artifacts from spinal fusion instrumentation. C2-3: There is mild disc bulge and ligamentum flavum thickening. Thereis mild central canal stenosis. There is moderate right and mild facet osteoarthritis. There is moderate right and mild uncovertebral joint osteoarthritis. There is no neural foraminal stenosis. C3-4: There is a posterior disc osteophyte complex abutting the ventral surface of the spinal cord. There is ligamentum flavum thickening Thereis moderate central canal stenosis. There is moderate bilateral facet osteoarthritis. There is moderate bilateral uncovertebral joint osteoarthritis. There is moderate bilateral neural foraminal stenosis. C4-5: This level is fused. There is mild central canal andneuroforaminal stenosis. C5-6: This level is fused. There is mild central canal andneuroforaminal stenosis. C6-7: This level is fused. The central canal and neuroforamina arepatent. C7-T1: There is mild posterior central disc bulge. There is no central canal stenosis. There is mild facet osteoarthritis. There is mild uncovertebral joint osteoarthritis. There is no neural foraminalstenosis. IMPRESSION: 1. Redemonstration of postoperative changes of anterior cervicaldiscectomy and fusion at C4-C7 levels with an anterior plate and paired anterior vertebral screws as well as interbody devices. 2. Mild to moderate prevertebral and retropharyngeal soft tissue thickening/edema and enhancement at C1-C4 levels and mild edema and enhancement along the inferior endplate of C3 may representpostoperative changes or increased degenerative disease related to the fusion of the lower levels, although infection involving the C3-C4 disc space in right clinical setting. No drainable fluid collections are identified tosuggest a drainable abscess. Please correlate clinically. 3. Redemonstration of multilevel degenerative disc and joint disease inthe cervical spine. > Interpreting Provider: Mony Rowell MD on 09/06/2023 3:56 PM Ryland Fuentes MD MR ORDERABLES * CT CERVICAL SPINE W CONTRAST (08/22/2023 3:18 PM CDT) Anatomical Region Laterality Modality Spine Computed Tomogra phy 08/23/2023 7:21 AM CDT Impressions 08/23/2023 1:35 PM CDT IMPRESSION: 1. Postoperative changes of anterior cervical discectomy and fusion at C4-C7 levels with an anterior plate and paired anterior vertebral screws as well as interbody devices. 2. Lucencies surrounding the C4 screws, suggesting instrumentation loosening. The right C4 screw extends into the C3-C4 disc space. 3. Moderate prevertebral and retropharyngeal soft tissue thickening/edema at C1-C4 levels which could indicate infection surrounding the C4 screws and in the C3-C4 disc space in right clinical setting. No drainable fluid collections are identified to suggest a drainable abscess. Please correlate clinically. The report is dictated by Sharad Syed MD, (Die Grinder) These findings were discussed in detail with the patient's care provider, Dr. Espinal by Dr. Syed via telephone at 1:35 PM on 08/23/2023 with readback comprehension and verification. I, Mony Rowell MD have personally reviewed and interpreted this examination/study. > Interpreting Provider: Mony Rowell MD on 08/23/2023 1:35 PM Narrative 08/23/2023 1:35 PM CDT PROCEDURE: ??CT CERVICAL SPINE W CONTRAST, DATE/TIME OF EXAM: ??08/22/2023 3:18 PM, LOCATION ??[facility] INDICATION: Z98.1: S/P cervical spinal fusion ADDITIONAL CLINICAL INFORMATION: Ordering Provider Reason For Exam: ??s/p C4-C7 ACDF, now with neck pain and swelling EXAMINATION: Computed tomography (CT) of the cervical spine with contrast TECHNIQUE: CT of the cervical spine was performed with 100 mL Isovue 370 intravenous contrast according to standard protocol. CT dose reduction technique was used, including Automated Exposure Control. COMPARISON: X-ray cervical spine 08/22/2023 an MRI of the cervical spine dated 12/22/2022 FINDINGS: Postoperative changes of anterior cervical discectomy and fusion at C4-C7 levels with an anterior plate and paired anterior vertebral screws as well as interbody devices. Lucencies are seen surrounding the C4 screws, suggesting instrumentation loosening. The right C4 screw also extends into the C3-C4 disc space. There is moderate prevertebral and retropharyngeal soft tissue thickening/edema at C1-C4 levels. Therefore, infection surrounding the C4 screws and in the C3-C4 disc space cannot be excluded. No drainable fluid collections are identified to suggest a drainable abscess. The bones are severely osteopenic. Vertebral bodies are normal in height without evidence of acute fracture. Other than middle atlantoaxial joint osteoarthritis, the craniocervical junction appears normal. Multilevel varying degrees of mild to advanced degenerative disc and joint disease is noted in the cervical spine as detailed below. There is atherosclerotic calcification of the carotid bifurcations. Stent of the V4 segment of the left vertebral artery. Surgical clips around the thyroid gland. C2-3: There is mild disc bulge and ligamentum flavum thickening. There is mild central canal stenosis. There is moderate right and mild facet osteoarthritis. There is moderate right and mild uncovertebral joint osteoarthritis. There is mild right neural foraminal stenosis. C3-4: There is a posterior disc osteophyte complex. There is mild central canal stenosis. There is moderate bilateral facet osteoarthritis. There is moderate bilateral uncovertebral joint osteoarthritis. There is moderate bilateral neural foraminal stenosis. C4-5: This level is fused. There is mild central canal and neuroforaminal stenosis. C5-6: This level is fused. There is mild central canal and neuroforaminal stenosis. C6-7: This level is fused. The central canal and neuroforamina are patent. C7-T1: There is mild posterior central disc bulge. There is no central canal stenosis. There is mild facet osteoarthritis. There is mild uncovertebral joint osteoarthritis. There is no neural foraminal stenosis. Procedure Note Mony Rowell MD - 08/23/2023 PROCEDURE: CT CERVICAL SPINE W CONTRAST, DATE/TIME OF EXAM: :18 PM, LOCATION [facility] INDICATION: Z98.1: S/P cervical spinal fusion ADDITIONAL CLINICAL INFORMATION: Ordering Provider Reason For Exam: s/p C4-C7 ACDF, now with neck painand swelling EXAMINATION: Computed tomography (CT) of the cervical spine withcontrast TECHNIQUE: CT of the cervical spine was performed with 100 mL Isovue 370 intravenous contrast according to standard protocol. CT dose reduction technique was used, including Automated Exposure Control. COMPARISON: X-ray cervical spine 08/22/2023 an MRI of the cervical spine dated 12/22/2022 FINDINGS: Postoperative changes of anterior cervical discectomy and fusion atC4-C7 levels with an anterior plate and paired anterior vertebral screws aswell as interbody devices. Lucencies are seen surrounding the C4 screws, suggesting instrumentation loosening. The right C4 screw also extendsinto the C3-C4 disc space. There is moderate prevertebral and retropharyngeal soft tissue thickening/edema at C1-C4 levels. Therefore, infection surrounding the C4 screws and in the C3-C4 disc space cannot beexcluded. No drainable fluid collections are identified to suggest a drainable abscess. The bones are severely osteopenic. Vertebral bodies are normal in height without evidence of acute fracture. Other than middle atlantoaxial joint osteoarthritis, the craniocervical junction appears normal. Multilevel varying degrees of mild to advanced degenerative disc and joint diseaseis noted in the cervical spine as detailed below. There is atherosclerotic calcification of the carotid bifurcations.Stent of the V4 segment of the left vertebral artery. Surgical clips aroundthe thyroid gland. C2-3: There is mild disc bulge and ligamentum flavum thickening. Thereis mild central canal stenosis. There is moderate right and mild facet osteoarthritis. There is moderate right and mild uncovertebral joint osteoarthritis. There is mild right neural foraminal stenosis. C3-4: There is a posterior disc osteophyte complex. There is mildcentral canal stenosis. There is moderate bilateral facet osteoarthritis. Thereis moderate bilateral uncovertebral joint osteoarthritis. There is moderate bilateral neural foraminal stenosis. C4-5: This level is fused. There is mild central canal andneuroforaminal stenosis. C5-6: This level is fused. There is mild central canal andneuroforaminal stenosis. C6-7: This level is fused. The central canal and neuroforamina arepatent. C7-T1: There is mild posterior central disc bulge. There is no central canal stenosis. There is mild facet osteoarthritis. There is mild uncovertebral joint osteoarthritis. There is no neural foraminalstenosis. IMPRESSION: 1. Postoperative changes of anterior cervical discectomy and fusion at C4-C7 levels with an anterior plate and paired anterior vertebral screwsas well as interbody devices. 2. Lucencies surrounding the C4 screws, suggesting instrumentation loosening. The right C4 screw extends into the C3-C4 disc space. 3. Moderate prevertebral and retropharyngeal soft tissuethickening/edema at C1-C4 levels which could indicate infection surrounding the C4 screws and in the C3-C4 disc space in right clinical setting. No drainablefluid collections are identified to suggest a drainable abscess. Pleasecorrelate clinically. The report is dictated by Sharad Syed MD, (Die Grinder) These findings were discussed in detail with the patient's careprovider, Dr. Espinal by Dr. Syed via telephone at 1:35 PM on 08/23/2023 withreadback comprehension and verification. I, Mony Rowell MD have personally reviewed and interpreted this examination/study. > Interpreting Provider: Mony Rowell MD on 08/23/2023 1:35 PM Ryland Fuentes MD CT ORDERABLES * IMAGING RADIOLOGY XRAY RESULTS ORDER (08/21/2023) Only the most recent of12 resultswithin the time period is included. Anatomical Region Laterality Modality Other 08/21/2023 Narrative 08/21/2023 Ordered by an unspecified provider. Scanned Document IMAGING * VAS DIALYSIS EXIST ACCESS SCAN (08/15/2023 10:54 AM CDT) Only the most recent of4 resultswithin the time period is included. Anatomical Region Laterality Modality Lower Extremity Intravascular Ul trasound 08/15/2023 10:0 9 AM CDT Narrative Procedure Note Carlos García MD - 08/15/2023 Ramon Hassan MD VASCULAR LAB ORDERAB LES * VAS ARTERIAL ANKLE ARM INDEX (08/15/2023 10:32 AM CDT) Only the most recent of2 resultswithin the time period is included. Anatomical Region Laterality Modality Ankle / Foot, Upper Extremity In travascular Ultrasound 08/15/2023 10:1 7 AM CDT Narrative Procedure Note Carlos García MD - 08/15/2023 Ramon Hassan MD VASCULAR LAB ORDERAB LES * VAS CAROTID DUPLEX BILATERAL (07/10/2023 11:18 AM CDT) Anatomical Region Laterality Modality Neck Intravascular Ul trasound 07/10/2023 10:3 1 AM CDT Narrative Procedure Note Cari Whipple MD - 07/11/2023 Jaylon Marks MD VASCULAR LAB ORDERAB LES * IV PLACEMENT PERFORMABLE (04/10/2023 2:25 PM HEARING AID FITTER) Narrative Gnozalo Lema MD - 04/10/2023 2:25 PM HEARING AID FITTER Gonzalo Lema MD ? 04/10/2023 ??2:26 PM Peripheral IV Line Placement: Procedure: IV start (46518). Procedure Section: ?? Orientation: right Location: wrist Catheter Gauge: 18 Procedure Tolerance: performed while patient under general anesthesia. Procedure Start Time: 04/10/2023 1:43 PM. Staff Section ? Anesthesia Provider: Scot Cortes MD, Performed the procedure Scot Cortes MD GENERAL ANESTHESIA O RDERABLES * ETT LINE PERFORMABLE (04/10/2023 2:24 PM HEARING AID FITTER) Narrative Gonzalo Lema MD - 04/10/2023 2:24 PM HEARING AID FITTER Gonzalo Lema MD ? 04/10/2023 ??2:24 PM Endotracheal Tube Placement: ? Patient Location: OR. Intubation Event Date/Time: ??04/10/2023 1:39 PM Procedure: intubation (44023). Procedure Section: ?? Sedation: under general anesthesia. Indications for Airway Management: ??anesthesia Induction: standard IV and modified rapid sequence Patient Position: ??sniffing and supine Mask Ventilation: easy. Blade Type: Alana Blade Size: 3 Laryngoscopy View: grade 1 (full cords) Intubation Adjuncts: stylet Tube: endotracheal tube Placement: oral Tube type: cuff - inflated Tube Size (MM): 7 Depth of Insertion (CM): 21 Measured From: lips Cuff Inflated With: air Number of Attempts: 1. Placement Verified By: direct visualization, bilateral breath sounds, chest auscultation and CO2 monitor Tube secured with: ??adhesive tape. Dentition unchanged? ??Yes Difficult Airway? ??No. Procedure Start Time: 04/10/2023 1:39 PM. Staff Section ? Anesthesia Provider: Gonzalo Lema MD, Performed the procedure ? Provider #1: Scot Cortes MD. Additional Comments: Airway in preop condition . Scot Cortes MD GENERAL ANESTHESIA O RDERABLES * PAIN MANAGEMENT PROCEDURE TIME (03/14/2023 11:59 PM HEARING AID FITTER) Only the most recent of10 resultswithin the time period is included. Anatomical Region Laterality Modality Radio Fluoroscop y Francesco Hong MD DIAGNOSTIC IMAGING O RDERABLES * SARS-COV-2 (COVID-19) AG W OPTIC (AMB) POCT (02/09/2023 2:30 PM HEARING AID FITTER) SARS-CoV-2 Ag Negative Negative [facility] Lot # [id number] [facility] Expiration Date 03/04/24 [facility] COVID Internal Control Acceptable Acceptable [facility] Microbiology SPECIMEN FROM NASAL FOSSAE / Unknown 02/09/2023 2:30 PM HEARING AID FITTER Zoey Boyle GAS SHOVEL OPERATOR-COMPUTER INFORMATION SYSTEMS PROFESSOR LAB - POINT OF CARE ORDERABLES Performing Organization Address [facility] de Phone Number [facility] [address] [place] [address], [facility] [phone] * STREP A SCREEN - POINT OF CARE (AMB) STL (02/09/2023 2:20 PM HEARING AID FITTER) Strep A Rapid POCT Negative Negative [facility] Strep A Internal Control Present [facility] Lot # [id number] [facility] Expiration Date 05/18/24 [facility] Throat ENTIRE THROAT (SURFACE REGION OF NECK) / Unknown 02/09/2023 2:20 PM HEARING AID FITTER Zoey Boyle GAS SHOVEL OPERATOR-COMPUTER INFORMATION SYSTEMS PROFESSOR LAB - POINT OF CARE ORDERABLES [facility] [address] [place] [address], [facility] [phone] * XR KNEE BILAT STANDING 1VW (01/05/2023 3:01 PM HEARING AID FITTER) Anatomical Region Laterality Modality Lower Extremity Radiographic Evan ging 01/05/2023 3:11 PM HEARING AID FITTER Narrative 01/05/2023 3:12 PM HEARING AID FITTER PROCEDURE: ??XR KNEE BILAT STANDING 1VW DATE/TIME OF EXAM: ??01/05/2023 3:01 PM CLINICAL INFORMATION: None relevant/not provided if blank. Indication: M17.0: Bilateral primary osteoarthritis of knee XR KNEE BILAT STANDING 1VW, SUNRISE VIEWS. HISTORY: M17.0: Bilateral primary osteoarthritis of knee COMPARISON: 11/02/2020 FINDINGS/IMPRESSION: 1. There is severe joint space narrowing of the right patellofemoral joint along the lateral facet with mild lateral tilting and subluxation of patella. 2. There is mild lateral tilting of left patella on sunrise view without significant osteoarthritic changes or translation of patella 3. No fracture or suspicious intrinsic bony lesion is identified on either side. > Interpreting Provider: Baljit Monteiro MD on 01/05/2023 3:12 PM Procedure Note Baljit Monteiro MD - 01/05/2023 PROCEDURE: XR KNEE BILAT STANDING 1VW DATE/TIME OF EXAM: 01/05/2023 3:01 PM CLINICAL INFORMATION: None relevant/not provided if blank. Indication: M17.0: Bilateral primary osteoarthritis of knee XR KNEE BILAT STANDING 1VW, SUNRISE VIEWS. HISTORY: M17.0: Bilateral primary osteoarthritis of knee COMPARISON: 11/02/2020 FINDINGS/IMPRESSION: 1. There is severe joint space narrowing of the right patellofemoraljoint along the lateral facet with mild lateral tilting and subluxation of patella. 2. There is mild lateral tilting of left patella on sunrise view without significant osteoarthritic changes or translation of patella 3. No fracture or suspicious intrinsic bony lesion is identified oneither side. > Interpreting Provider: Baljit Monteiro MD on 01/05/2023 3:12 PM Octavia Parry GAS SHOVEL OPERATOR-COMPUTER INFORMATION SYSTEMS PROFESSOR DIAGNOSTIC [facility]AN [facility]ING ORDERABLES * AMB REFERRAL TO RHEUMATOLOGY (12/26/2022 3:05 PM HEARING AID FITTER) Bahman Ann MD OUTPATIENT REFER RALS * (ABNORMAL) PTH INTACT W/O CALCIUM (12/23/2022 1:49 PM CDT) Only the most recent of8 resultswithin the time period is included. PTH Intact 327.9(H) 8.0 - 77.0 pg/mL 12/23/2022 3:36 PM CDT [facility] Blood BLOOD SPECIMEN / Unknown Lab Venipuncture / Unknown 12/23/2022 1:49 PM CDT 12/23/2022 3:00 PM CDT Alysia Holden DO LAB - CHEMISTRY RASHID INFANTE Performing Organization Address [place]/[facility] Co de Phone Number [address] [phone], [facility] [phone] * MRI THORACIC SPINE WO CONTRAST (12/22/2022 5:42 PM CDT) Anatomical Region Laterality Modality Chest Magnetic Resonan ce 12/23/2022 11:2 9 AM CDT Impressions 12/23/2022 11:54 AM CDT IMPRESSION: 1. Thoracic spine: Multilevel mild degenerative changes of the thoracic spine as described above. No significant central canal stenosis. No definite cord signal abnormality. 2. Cervical spine: Moderate degenerative changes as of the cervical spine as described above most prominent at the level of C5-C6 with posterior disc osteophyte complex causing mass effect on the adjacent spinal cord and associated moderate to severe central canal stenosis and bilateral neural foraminal stenosis. No definite cord signal abnormality. > Interpreting Provider: Daria Hepmhill MD on 12/23/2022 11:54 AM Narrative 12/23/2022 11:54 AM CDT PROCEDURE: ??MRI THORACIC SPINE WO CONTRAST, MRI CERVICAL SPINE WO CONTRAST, DATE/TIME OF EXAM: ??12/22/2022 5:48 PM, LOCATION ??[facility] INDICATION: M79.602: Left arm pain ADDITIONAL CLINICAL INFORMATION: Ordering Provider Reason For Exam: ??DDD impinging nerve root causing neuropathy or myelopathy? TECHNIQUE: MRI of the cervical and thoracic spine was performed without contrast according to standard protocol. COMPARISON: No prior study is available for comparison at the time of this dictation. FINDINGS: Cervical spine: The alignment is normal. Vertebral bodies are normal in height without evidence of compression fractures. Heterogeneous marrow signal with the endplate degenerative changes most prominent at the level of C6-C7 with associated edema. No significant disc space widening or associated epidural fluid or prevertebral fluid collections at the level of C6-C7. . The craniocervical junction and visualized portions of the posterior fossa appear normal. Multilevel moderate disc height loss most prominent at the level of C6-C7. No soft tissue abnormality is identified. Normal flow voids are identified in the vertebral arteries. No dominant left vertebral artery flow void. No definite cord signal abnormality. C2-3: Mild posterior disc bulge. There is mild central canal stenosis. There is mild to moderate bilateral bilateral facet osteoarthritis. There is no significant uncovertebral joint osteoarthritis. There is no neural foraminal stenosis. C3-4: Posterior disc bulge with effacement of the anterior CSF space and slightly of anterior aspect of the spinal cord.. There is mild central canal stenosis. There is moderate bilateral facet osteoarthritis. There is mild to moderate bilateral uncovertebral joint osteoarthritis. There is mild bilateral neural foraminal stenosis. C4-5: Posterior disc bulge with effacement of the anterior CSF space and slightly abutting the adjacent spinal cord.. There is mild to moderate central canal stenosis. There is moderate bilateral facet osteoarthritis. There is moderate bilateral uncovertebral joint osteoarthritis. There is moderate bilateral neural foraminal stenosis. C5-6: Posterior disc bulge/disc osteophyte complex with mass effect on the adjacent spinal cord. There is moderate to severe central canal stenosis. There is moderate bilateral facet osteoarthritis. There is moderate to severe bilateral left greater than right uncovertebral joint osteoarthritis. There is moderate to severe bilateral left greater than right neural foraminal stenosis. C6-7: Posterior disc bulge/disc osteophyte complex. There is mild to moderate central canal stenosis. There is moderate bilateral facet osteoarthritis. There is moderate to severe uncovertebral joint osteoarthritis. There is moderate to severe left neural foraminal stenosis. C7-T1: There is no disc bulge. There is no central canal stenosis. There is moderate bilateral facet osteoarthritis. There is no uncovertebral joint osteoarthritis. There is no neural foraminal stenosis. Thoracic spine: The alignment is normal. Vertebral bodies are normal in height without evidence of compression fractures. Heterogeneous marrow signal with endplate degenerative changes. The spinal cord appears normal, within the limits of the study. Multilevel endplate degenerative changes most prominent at the level of T6-T7 with mild edema. Small posterior disc bulges through the levels of T5-T6 to T7-T8 with associated effacement of anterior CSF space otherwise no significant central canal stenosis.. Multilevel mild to moderate facet arthropathy predominantly in the lower thoracic spine.. Multilevel mild to moderate neural foraminal stenosis most prominent in the mid thoracic spine through the levels of T5-T6 to T8-T9 predominantly on the left side.. No acute soft tissue abnormality noted. Atrophic appearance of the bilateral kidneys with multiple small cysts. Procedure Note Daria Hemphill MD - 12/23/2022 PROCEDURE: MRI THORACIC SPINE WO CONTRAST, MRI CERVICAL SPINE WOCONTRAST, DATE/TIME OF EXAM: 12/22/2022 5:48 PM, LOCATION [facility] INDICATION: M79.602: Left arm pain ADDITIONAL CLINICAL INFORMATION: Ordering Provider Reason For Exam: DDD impinging nerve root causing neuropathy or myelopathy? TECHNIQUE: MRI of the cervical and thoracic spine was performed without contrast according to standard protocol. COMPARISON: No prior study is available for comparison at the time ofthis dictation. FINDINGS: Cervical spine: The alignment is normal. Vertebral bodies are normal in height without evidence of compression fractures. Heterogeneous marrow signal with the endplate degenerative changes most prominent at the level of C6-C7 with associated edema. No significant disc space widening or associatedepidural fluid or prevertebral fluid collections at the level of C6-C7. . The craniocervical junction and visualized portions of the posterior fossa appear normal. Multilevel moderate disc height loss most prominentat the level of C6-C7. No soft tissue abnormality is identified. Normalflow voids are identified in the vertebral arteries. No dominant leftvertebral artery flow void. No definite cord signal abnormality. C2-3: Mild posterior disc bulge. There is mild central canal stenosis. There is mild to moderate bilateral bilateral facet osteoarthritis.There is no significant uncovertebral joint osteoarthritis. There is no neural foraminal stenosis. C3-4: Posterior disc bulge with effacement of the anterior CSF space and slightly of anterior aspect of the spinal cord.. There is mild central canal stenosis. There is moderate bilateral facet osteoarthritis. Thereis mild to moderate bilateral uncovertebral joint osteoarthritis. There is mild bilateral neural foraminal stenosis. C4-5: Posterior disc bulge with effacement of the anterior CSF space and slightly abutting the adjacent spinal cord.. There is mild to moderate central canal stenosis. There is moderate bilateral facetosteoarthritis. There is moderate bilateral uncovertebral joint osteoarthritis. There is moderate bilateral neural foraminal stenosis. C5-6: Posterior disc bulge/disc osteophyte complex with mass effect onthe adjacent spinal cord. There is moderate to severe central canalstenosis. There is moderate bilateral facet osteoarthritis. There is moderate to severe bilateral left greater than right uncovertebral joint osteoarthritis. There is moderate to severe bilateral left greater than right neural foraminal stenosis. C6-7: Posterior disc bulge/disc osteophyte complex. There is mild to moderate central canal stenosis. There is moderate bilateral facet osteoarthritis. There is moderate to severe uncovertebral joint osteoarthritis. There is moderate to severe left neural foraminalstenosis. C7-T1: There is no disc bulge. There is no central canal stenosis. Thereis moderate bilateral facet osteoarthritis. There is no uncovertebral joint osteoarthritis. There is no neural foraminal stenosis. Thoracic spine: The alignment is normal. Vertebral bodies are normal in height without evidence of compression fractures. Heterogeneous marrow signal with endplate degenerative changes. The spinal cord appears normal, withinthe limits of the study. Multilevel endplate degenerative changes most prominent at the level of T6-T7 with mild edema. Small posterior disc bulges through the levels of T5-T6 to T7-T8 with associated effacement of anterior CSF spaceotherwise no significant central canal stenosis.. Multilevel mild to moderatefacet arthropathy predominantly in the lower thoracic spine.. Multilevel mildto moderate neural foraminal stenosis most prominent in the mid thoracicspine through the levels of T5-T6 to T8-T9 predominantly on the left side.. No acute soft tissue abnormality noted. Atrophic appearance of thebilateral kidneys with multiple small cysts. IMPRESSION: 1. Thoracic spine: Multilevel mild degenerative changes of the thoracic spine as described above. No significant central canal stenosis. No definite cord signal abnormality. 2. Cervical spine: Moderate degenerative changes as of the cervicalspine as described above most prominent at the level of C5-C6 with posteriordisc osteophyte complex causing mass effect on the adjacent spinal cord and associated moderate to severe central canal stenosis and bilateralneural foraminal stenosis. No definite cord signal abnormality. > Interpreting Provider: Daria Hemphill MD on 12/23/2022 11:54 AM Alysia Holden DO MR ORDERABLES * (ABNORMAL) CALCIUM IONIZED WHOLE BLOOD (12/22/2022 3:01 AM CDT) Only the most recent of19 resultswithin the time period is included. Calcium Ionized 1.08 mmol/L 12/22/2022 3:36 AM CDT [facility] pH 7.46(H) 7.35 - 7.45 pH 12/22/2022 3:36 AM CDT [facility] Ionized Calcium pH Adjusted 1.11(L) 1.19 - 1.34 mmol/L 12/22/2022 3:36 AM CDT [facility] Blood BLOOD SPECIMEN / Unknown Lab Venipuncture / Unknown 12/22/2022 3:01 AM CDT 12/22/2022 3:34 AM CDT Peter Arias MD [facility] Organization Address City/State/ZIP Co de Phone Number [facility] [address] [place] [phone], [facility] [phone] * XR THORACIC SPINE 2VW (12/21/2022 10:08 AM CDT) Anatomical Region Laterality Modality Spine Radiographic Evan ging 12/21/2022 11:1 4 AM CDT Impressions 12/21/2022 1:43 PM CDT IMPRESSION: Moderate degenerative changes. Report dictated by Yesica Michael MD (cath lab radiology technician). I, Matthew Zhu MD have personally reviewed and interpreted this examination/study. > Interpreting Provider: Matthew Zhu MD on 12/21/2022 1:43 PM Narrative 12/21/2022 1:43 PM CDT PROCEDURE: ??XR CERVICAL SPINE 2 OR 3VW, XR THORACIC SPINE 2VW, DATE/TIME OF EXAM: ??12/21/2022 10:07 AM, LOCATION ??[facility] INDICATION: R07.9: Chest pain, unspecified type M79.602: Left arm pain ADDITIONAL CLINICAL INFORMATION: Ordering Provider Reason For Exam: ??To assess for degenerative disc and joint disease COMPARISON: None. FINDINGS: Cervical spine: No fracture or subluxation. Moderate multilevel degenerative disc and joint disease. Clips in the neck. Thoracic spine: Some of the upper thoracic vertebra are not well visualized on the lateral view. No fracture or subluxation. Mild to moderate multilevel degenerative changes. Mild lower thoracic dextroscoliosis. Procedure Note Matthew Zhu MD - 12/21/2022 PROCEDURE: XR CERVICAL SPINE 2 OR 3VW, XR THORACIC SPINE 2VW, DATE/TIMEOF EXAM: 12/21/2022 10:07 AM, LOCATION [facility] INDICATION: R07.9: Chest pain, unspecified type M79.602: Left arm pain ADDITIONAL CLINICAL INFORMATION: Ordering Provider Reason For Exam: To assess for degenerative disc and joint disease COMPARISON: None. FINDINGS: Cervical spine: No fracture or subluxation. Moderate multilevel degenerative disc andjoint disease. Clips in the neck. Thoracic spine: Some of the upper thoracic vertebra are not well visualized on thelateral view. No fracture or subluxation. Mild to moderate multileveldegenerative changes. Mild lower thoracic dextroscoliosis. IMPRESSION: Moderate degenerative changes. Report dictated by Yesica Michael MD (cath lab radiology technician). I, Matthew Zhu MD have personally reviewed and interpreted this examination/study. > Interpreting Provider: Matthew Zhu MD on 12/21/2022 1:43 PM Rohun Sherwood DO DIAGNOSTIC IMAGING O RDERABLES * VAS LEFT VENOUS DUPLEX UE (12/21/2022 8:40 AM CDT) Anatomical Region Laterality Modality Upper Extremity Intravascular Ul trasound 12/21/2022 7:53 AM CDT Narrative Procedure Note Ramon Hassan MD - 12/22/2022 Peter Arias MD VASCULAR LAB ORDERAB LES * VAS BILATERAL VENOUS DUPLEX LE (12/21/2022 8:40 AM CDT) Only the most recent of5 resultswithin the time period is included. Anatomical Region Laterality Modality Lower Extremity Intravascular Ul trasound 12/21/2022 8:08 AM CDT Narrative Procedure Note Ramon Hassan MD - 12/22/2022 Peter Arias MD VASCULAR LAB ORDERAB LES * CT ABDOMEN PELVIS W CONTRAST (12/21/2022 12:22 AM CDT) Only the most recent of4 resultswithin the time period is included. Anatomical Region Laterality Modality Abdomen, Pelvis Computed Tomogra phy 12/21/2022 12:2 3 AM CDT Impressions 12/21/2022 9:49 AM CDT Impression: 1.Mild circumferential wall thickening and pericolonic fat stranding of the distal descending colon/sigmoid colon consistent with mild acute diverticulitis. No evidence of acute complication such as perforation or abscess. 2.Small hiatal hernia. 3.Bilateral renal atrophy, consistent with known end-stage renal disease 4.Nonspecific enlarged periportal/pericaval lymph nodes. Attention on follow-up imaging is recommended. Findings verbally relayed to Dr. Lozano by Dr. Su at 0948 on 12/21/2022. Report drafted by Mayco Kolb (resident) I, VERNON SU MD have personally reviewed and interpreted this examination/study. > Interpreting Provider: VERNON SU MD on 12/21/2022 9:49 AM Narrative 12/21/2022 9:49 AM CDT Procedure Information DATE: 12/21/2022 12:23 AM EXAMINATION: Computed tomography (CT) of the abdomen and pelvis with contrast TECHNIQUE: CT of the abdomen and pelvis was performed following the uneventful administration of 100 mL of Isovue 370 intravenous contrast according to standard protocol. Clinical Information HISTORY: R10.84: Abdominal pain, generalized COMPARISON: Multiple priors, most recent CT abdomen pelvis without contrast dated 12/06/2022 Findings Lower Chest: Subsegmental atelectasis is seen bilaterally. Small calcified granulomas are present. No confluent consolidation or pleural effusion is noted. Imaged heart size is normal. No pericardial effusion is noted. Coronary artery calcifications and valvular calcifications are present. Hepatobiliary: Simple cysts are seen in the right hemiliver. Mild fatty infiltration versus third inflow artifact is seen along the falciform ligament anteriorly. No solid hepatic observations are noted. No surface nodularity is seen. The hepatic and portal veins are patent. The gallbladder is surgically absent. No intra or extrahepatic biliary dilatation is noted. Pancreas: Normal. Spleen: A 1 cm hypodensity in the spleen is indeterminate, favoring a benign entity such as cyst, hemangioma, or lymphangioma. Kidneys: Bilateral kidneys are atrophic with multiple cysts, compatible with known ESRD. No solid renal mass is noted. No hydronephrosis or nephrolithiasis is seen. Extensive vascular consolidations are noted. Adrenals: Normal. Retroperitoneum: Normal. Gastrointestinal: A small hiatal hernia is present. Postoperative changes from partial gastrectomy/sleeve gastrectomy are noted. No large small bowel obstruction is noted. There is a short segment circumferential wall thickening of the distal descending colon/sigmoid colonic junction, which extends along approximately 10 cm length. Very subtle associated pericolonic fat stranding is noted (series 3 images 78-105). No substantial pericolonic fluid or retroperitoneal air is noted. Appendix: Normal. Mesentery: Multiple enlarged periportal/pericaval nodes are present, for reference measuring up to 11 mm in short axis (series 3 image 52). No free intraperitoneal air or fluid. Pelvic Structures: Normal. Vasculature: The abdominal aorta is normal in course and caliber. Atherosclerotic changes of the aorta and its major branching vessels are noted. This is most severe in the bilateral renal arteries with associated renal atrophy. Bones: The visible osseous structures are intact. Extensive degenerative changes are seen throughout the spine, stable from the prior examination. Schmorl's nodes at multiple levels are noted. Retrolisthesis of L2 on L3 and L5 and L4 with sacralization of L5 is again noted. Osteoarthrosis of the bilateral femoral head is seen. Soft tissues: Normal. Procedure Note Vernon Su MD - 12/21/2022 Procedure Information DATE: 12/21/2022 12:23 AM EXAMINATION: Computed tomography (CT) of the abdomen and pelvis with contrast TECHNIQUE: CT of the abdomen and pelvis was performed following the uneventful administration of 100 mL of Isovue 370 intravenous contrast according to standard protocol. Clinical Information HISTORY: R10.84: Abdominal pain, generalized COMPARISON: Multiple priors, most recent CT abdomen pelvis withoutcontrast dated 12/06/2022 Findings Lower Chest: Subsegmental atelectasis is seen bilaterally. Small calcified granulomas are present. No confluent consolidation or pleural effusion is noted. Imaged heart size is normal. No pericardial effusion is noted. Coronary artery calcifications and valvular calcifications are present. Hepatobiliary: Simple cysts are seen in the right hemiliver. Mild fatty infiltration versus third inflow artifact is seen along the falciform ligament anteriorly. No solid hepatic observations are noted. No surfacenodularity is seen. The hepatic and portal veins are patent. The gallbladder is surgically absent. No intra or extrahepatic biliary dilatation is noted. Pancreas: Normal. Spleen: A 1 cm hypodensity in the spleen is indeterminate, favoring a benignentity such as cyst, hemangioma, or lymphangioma. Kidneys: Bilateral kidneys are atrophic with multiple cysts, compatible withknown ESRD. No solid renal mass is noted. No hydronephrosis or nephrolithiasisis seen. Extensive vascular consolidations are noted. Adrenals: Normal. Retroperitoneum: Normal. Gastrointestinal: A small hiatal hernia is present. Postoperative changes from partial gastrectomy/sleeve gastrectomy are noted. No large small bowelobstruction is noted. There is a short segment circumferential wall thickening ofthe distal descending colon/sigmoid colonic junction, which extends along approximately 10 cm length. Very subtle associated pericolonic fat stranding is noted (series 3 images 78-105). No substantial pericolonic fluid or retroperitoneal air is noted. Appendix: Normal. Mesentery: Multiple enlarged periportal/pericaval nodes are present, for reference measuring up to 11 mm in short axis (series 3 image 52). No free intraperitoneal air or fluid. Pelvic Structures: Normal. Vasculature: The abdominal aorta is normal in course and caliber. Atherosclerotic changes of the aorta and its major branching vessels are noted. This is most severe in the bilateral renal arteries with associated renalatrophy. Bones: The visible osseous structures are intact. Extensive degenerativechanges are seen throughout the spine, stable from the prior examination.Schmorl's nodes at multiple levels are noted. Retrolisthesis of L2 on L3 and L5and L4 with sacralization of L5 is again noted. Osteoarthrosis of thebilateral femoral head is seen. Soft tissues: Normal. Impression: 1.Mild circumferential wall thickening and pericolonic fat stranding ofthe distal descending colon/sigmoid colon consistent with mild acute diverticulitis. No evidence of acute complication such as perforation or abscess. 2.Small hiatal hernia. 3.Bilateral renal atrophy, consistent with known end-stage renal disease 4.Nonspecific enlarged periportal/pericaval lymph nodes. Attention on follow-up imaging is recommended. Findings verbally relayed to Dr. Lozano by Dr. Su at 0948 on12/21/2022. Report drafted by Mayco Kolb (resident) I, VERNON SU MD have personally reviewed and interpreted this examination/study. > Interpreting Provider: VERNON SU MD on 12/21/2022 9:49 AM Peter Arias MD CT ORDERABLES * BLOOD TYPE ABO+ RH PANEL (12/06/2022 1:50 PM CDT) Only the most recent of2 resultswithin the time period is included. ABO Rh O NEG 12/06/2022 3:5 3 PM CDT [facility] Blood BLOOD SPECIMEN / Unknown Lab Venipuncture / Unknown 12/06/2022 1:50 PM CDT 12/06/2022 2:59 PM CDT Sarah Enciso MD LAB - BLOOD BANK ORD ERABLES [facility] [address] [place] [address], [facility] [phone] * BILL ONLY DRVVT CONFIRM (12/06/2022 1:41 PM CDT) Lab Bill Only Tests For Interface Bill Only 12/08/2022 11:20 PM CDT [facility] ([facility]) Blood BLOOD SPECIMEN / Unknown Lab Venipuncture / Unknown 12/06/2022 1:41 PM CDT 12/06/2022 3:00 PM CDT Sarah Enciso MD LAB - COAGULATION OR DERABLES [facility]) [address] * BILL ONLY DRVVT 1:1 MIX (12/06/2022 1:41 PM CDT) Lab Bill Only Tests For Interface Bill Only 12/08/2022 11:20 PM CDT [facility] ([facility]) Blood BLOOD SPECIMEN / Unknown Lab Venipuncture / Unknown 12/06/2022 1:41 PM CDT 12/06/2022 3:00 PM CDT Sarah Enciso MD LAB - COAGULATION OR DERABLES Performing Organization Address City/[facility]/ZIP Co de Phone Number [facility]) [address] * HLA TYPING DNA LOW RESOLUTION DR,DQ (12/06/2022 1:41 PM CDT) DR DQ Low Resolution DRB1-1 *03(DR17) 12/15/2022 5:49 PM CDT [facility] ([facility]) DR DQ Low Resolution DRB1-2 *15 12/15/2022 5:49 PM CDT [facility] ([facility]) DR DQ Low Resolution DQB1-1 *02 12/15/2022 5:49 PM CDT [facility] ([facility]) DR DQ Low Resolution DQB1-2 *06 12/15/2022 5:49 PM CDT [facility] ([facility]) DR DQ Low Resolution DRB3-1 *01 12/15/2022 5:49 PM CDT [facility] ([facility]) DR DQ Low Resolution DRB3-2 Negative 12/15/2022 5:49 PM CDT [facility] ([facility]) DR DQ Low Resolution DRB4-1 Negative 12/15/2022 5:49 PM CDT [facility] ([facility]) DR DQ Low Resolution DRB4-2 Negative 12/15/2022 5:49 PM CDT [facility] ([facility]) DR DQ Low Resolution DRB5-1 *01 12/15/2022 5:49 PM CDT [facility] ([facility]) DR DQ Low Resolution DRB5-2 Negative 12/15/2022 5:49 PM CDT [facility] ([facility]) DR DQ Low Resolution Methodology Real Time PCR 12/15/2022 5:49 PM CDT [facility] ([facility]) DR DQ Low Resolution test date [id number] 12/15/2022 5:49 PM CDT [facility] ([facility]) Comment: This test was developed and its performance characteristics determined by the [facility]. ??It has not been cleared or approved by the U.S. Food and Drug Administration. ??The FDA has determined that such clearance or approval is not necessary. ??This test is used for clinical purposes. ??It should not be regarded as investigational or for research. This laboratory is certified under the Clinical Laboratory Improvement Amendments of 1988 (CLIA-88) as qualified to perform high complexity clinical laboratory testing. ??CLIA ID# [id number] Performed at: [facility], [address] [place] [address] ??[id number] Professor Of German:Dr. Luis Alfredo Conteh, PhD, Blood BLOOD SPECIMEN / Unknown Lab Venipuncture / Unknown 12/06/2022 1:41 PM CDT 12/06/2022 3:02 PM CDT Sarah Enciso MD LAB - BLOOD BANK ORD ERABLES [facility] ([facility]) [facility] [place] [address], [facility] * HLA TYPING DNA LOW RESOLUTION A,B,C (12/06/2022 1:41 PM CDT) ABC DNA A1 *11 12/15/2022 5:49 PM CDT [facility] ([facility]) ABC DNA A2 *30 12/15/2022 5:49 PM CDT [facility] ([facility]) ABC DNA B1 *52 12/15/2022 5:49 PM CDT [facility] ([facility]) ABC DNA B2 *53 12/15/2022 5:49 PM CDT [facility] ([facility]) ABC DNA BW1 4 12/15/2022 5:49 PM CDT [facility] ([facility]) ABC DNA BW2 4 12/15/2022 5:49 PM CDT [facility] ([facility]) ABC DNA C1 *08 12/15/2022 5:49 PM CDT [facility] ([facility]) ABC DNA C2 *12 12/15/2022 5:49 PM CDT [facility] ([facility]) ABC DNA Methodology Real Time PCR 12/15/2022 5:49 PM CDT [facility] ([facility]) ABC DNA Test Date [id number] 5:49 PM CDT [facility] ([facility]) Comment: This test was developed and its performance characteristics determined by the [facility]. ??It has not been cleared or approved by the U.S. Food and Drug Administration. ??The FDA has determined that such clearance or approval is not necessary. ??This test is used for clinical purposes. ??It should not be regarded as investigational or for research. This laboratory is certified under the Clinical Laboratory Improvement Amendments of 1988 (CLIA-88) as qualified to perform high complexity clinical laboratory testing. ??CLIA ID# [id number] Performed at: [facility], [address] [place] [address] ??[id number] Professor Of German:Dr. Luis Alfredo Conteh, PhD, Blood BLOOD SPECIMEN / Unknown Lab Venipuncture / Unknown 12/06/2022 1:41 PM CDT 12/06/2022 3:02 PM CDT Sarah Enciso MD LAB - BLOOD BANK ORD ERABLES [facility] ([facility]) [address] [place] [address], [facility] * HLA ANTIBODY SCREEN LUM CLASS 2 SAB (12/06/2022 1:41 PM CDT) Only the most recent of23 resultswithin the time period is included. % PRA 17 12/15/2022 5:49 PM CDT [facility] ([facility]) Class 2 LUM SAB Specificity DQB1*03:02/8, 03:03/9, 03:19/7, ? DQB1*04:01, 04:02 ?DRB1*07:02, 12:01, 12:02 ?DRB4*01: ?DQA AND DPB PRESENT ? 12/15/2022 5:49 PM CDT [facility] ([facility]) Class 2 LUM SAB Moderate Risk DRB1*09:02 DRB4*01:12/15/2022 5:49 PM CDT [facility] ([facility]) Class 2 SAB Test Date [id number] 12/15/2022 5:49 PM CDT [facility] ([facility]) Comment: This test was developed and its performance characteristics determined by the [facility]. ??It has not been cleared or approved by the U.S. Food and Drug Administration. ??The FDA has determined that such clearance or approval is not necessary. ??This test is used for clinical purposes. ??It should not be regarded as investigational or for research. This laboratory is certified under the Clinical Laboratory Improvement Amendments of 1988 (CLIA-88) as qualified to perform high complexity clinical laboratory testing. ??CLIA ID# [id number] Performed at: [facility], [address] [place] [address] ??[id number] Professor Of German:Dr. Luis Alfredo Conteh, PhD, Blood BLOOD SPECIMEN / Unknown Lab Venipuncture / Unknown 12/06/2022 1:41 PM CDT 12/06/2022 2:55 PM CDT Sarah Enciso MD LAB - BLOOD BANK ORD ERABLES [facility] ([facility]) [facility] [place] [address], [place] * HLA ANTIBODY SCREEN LUM CLASS 1 SAB (12/06/2022 1:41 PM CDT) Only the most recent of23 resultswithin the time period is included. % PRA 5 12/15/2022 5:49 PM CDT [facility] ([facility]) Class 1 LUM SAB Specificity A*23:01, 24:02, 24:03 B*15:12/76, 45:01 12/15/2022 5:49 PM CDT [facility] ([facility]) Class 1 LUM SAB Moderate Risk A*02:01, 02:03, 02:06 B*44:03 12/15/2022 5:49 PM CDT [facility] ([facility]) Class 1 SAB Test Date [id number] 12/15/2022 5:49 PM CDT [facility] ([facility]) Comment: This test was developed and its performance characteristics determined by the [facility]. ??It has not been cleared or approved by the U.S. Food and Drug Administration. ??The FDA has determined that such clearance or approval is not necessary. ??This test is used for clinical purposes. ??It should not be regarded as investigational or for research. This laboratory is certified under the Clinical Laboratory Improvement Amendments of 1988 (CLIA-88) as qualified to perform high complexity clinical laboratory testing. ??CLIA ID# [id number] Performed at: [facility], [address] [place] [address] ??[id number] Professor Of German:Dr. Luis Alfredo Conteh, PhD, Blood BLOOD SPECIMEN / Unknown Lab Venipuncture / Unknown 12/06/2022 1:41 PM CDT 12/06/2022 2:56 PM CDT Sarah Enciso MD LAB - BLOOD BANK ORD ERABLES [facility] ([facility]) [address] [place] [address], [facility] * CANNABINOID SCREEN BLOOD (12/06/2022 1:41 PM CDT) Only the most recent of4 resultswithin the time period is included. Marijuana Metabolites Negative 12/08/2022 6:08 PM CDT [facility]) Comment:REFERENCE RANGE: thr shold: 5 ng/mL Specimen Type Comment 12/08/2022 6:08 PM CDT [facility] ([facility]) Comment: WHOLE BLOOD This specimen was screened by immunoassay at the thresholds listed above. Presumptive positive results have not been confirmed by an alternate method; results are intended for clinical medical purposes. Please contact the laboratory if confirmatory testing is desired. This test was developed and its performance characteristics determined by [employer]. It has not been cleared or approved by the Food and Drug Administration. Blood BLOOD SPECIMEN / Unknown Lab Venipuncture / Unknown 12/06/2022 1:41 PM CDT 12/06/2022 3:49 PM CDT Narrative [facility] ([facility]) - 12/08/2022 6:08 PM CDT Performed at: ??01 - [facility] [address] ??[phone] Professor Of German: Allison Valverde [facility], Phone: ??[phone] Sarah Enciso MD LAB - CHEMISTRY RASHID INFANTE [facility] ([facility]) [address] [place] [address], [facility] * COCAINE METABOLITE QUANT (12/06/2022 1:41 PM CDT) Only the most recent of5 resultswithin the time period is included. Pathologist [facility] Cocaine and Metabolite Blood <20 ng/mL 12/11/2022 12:35 AM CDT [employer] ([facility]) Comment: INTERPRETIVE INFORMATION: Cocaine Metabolite, Serum or ?Plasma, Quantitative Methodology: Quantitative Liquid Chromatography-Tandem Mass Spectrometry Positive cutoff: 20 ng/mL ?? For medical purposes only; not valid for forensic use. The concentration value must be greater than or equal to the cutoff to be reported as positive. Interpretive questions should be directed to the laboratory. This test was developed and its performance characteristics determined by [facility]. It has not been cleared or approved by the US Food and Drug Administration. This test was performed in a CLIA certified laboratory and is intended for clinical purposes. Performed By: [facility] [address] [place] [address] Service Coordinator Elderly Facility: Ayan Akins MD, PhD CLIA Number: [id number] Blood BLOOD SPECIMEN / Unknown Lab Venipuncture / Unknown 12/06/2022 1:41 PM CDT 12/06/2022 3:10 PM CDT Sarah Enciso MD LAB - CHEMISTRY ORDE RABLES Performing Organization Address [facility] Co de Phone Number [facility]) [address] [place], [place] [address] * SYPHILIS ANTIBODY CASCADING REFLEX (12/06/2022 1:41 PM CDT) Only the most recent of2 resultswithin the time period is included. Treponema pallidum Antibody Non-react nayeli Non-react nayeli 12/06/2022 3:45 PM CDT [facility] Comment: No Laboratory evidence of syphilis infection. ?? Note: ??Circulating antibodies may be low or undetectable in early infection. ??If recent exposure is suspected, re-draw sample in 2-4 weeks and repeat testing. Blood BLOOD SPECIMEN / Unknown Lab Venipuncture / Unknown 12/06/2022 1:41 PM CDT 12/06/2022 2:56 PM CDT Sarah Enciso MD LAB - SEROLOGY ORDER WYATT [facility] [address] [place] [address], [facility] [phone] * AMPHETAMINE BLOOD CONFIRMATION (12/06/2022 1:41 PM CDT) Only the most recent of6 resultswithin the time period is included. Amphetamines Confirmation <20 ng/mL 12/10/2022 5:56 PM CDT [facility] ([facility]) Comment: INTERPRETIVE INFORMATION: Amphetamines, Serum or ?Plasma, Quantitative Methodology: Quantitative Liquid Chromatography-Tandem Mass Spectrometry Positive cutoff: 20 ng/mL For medical purposes only; not valid for forensic use. The absence of expected drug(s) and/or drug metabolite(s) may indicate non-compliance, inappropriate timing of specimen collection relative to drug administration, poor drug absorption, or limitations of testing. ??The concentration value must be greater than or equal to the cutoff to be reported as positive. Interpretive questions should be directed to the laboratory. This test was developed and its performance characteristics determined by [facility]. It has not been cleared or approved by the US Food and Drug Administration. This test was performed in a CLIA certified laboratory and is intended for clinical purposes. Methamphetamine Confirmation <20 ng/mL 12/10/2022 5:[address] [facility] [employer] [facility]) MDA Confirmation <20 ng/mL 12/11/19 23 5:[address] [employer] [facility]) MDMA Confirm <20 ng/mL 12/10/2022 5:[address] [facility]) MDEA Confirmation <20 ng/mL 023 5:[address] [facility] [employer] [facility]) Comment: Performed By: [facility] [address] [place] [address] Service Coordinator Elderly Facility: Ayan Akins MD, PhD CLIA Number: [id number] Blood BLOOD SPECIMEN / Unknown Lab Venipuncture / Unknown 12/06/2022 1:41 PM CDT 12/06/2022 3:10 PM CDT Sarah Enciso MD LAB - CHEMISTRY RASHID INFANTE [facility]) [address] [place] [address], [facility] * QUANTIFERON-TB GOLD PLUS 4-TUBE (12/06/2022 1:41 PM CDT) [facility] QuantiFERON NIL 0.04 IU/mL 7:[address] [facility] ([facility]) Comment: Performed By: [facility] [address] [place] [address] Service Coordinator Elderly Facility: Ayan Akins MD, PhD [place] Number: [id number] QuantiFERON TB Gold Plus Negative Negative 12/09/2022 7:45 AM CDT [email or web address] ([facility]) Comment: Interpretive Data: Quantiferon TB Gold Plus Interferon gamma release is measured for specimens from each of the four collection tubes. A qualitative result (Negative, Positive, or Indeterminate) is based on interpretation of the four values, NIL, MITOGEN minus NIL (MITOGEN-NIL), TB1 minus NIL (TB1-NIL), and TB2 minus NIL (TB2-NIL). The NIL value represents nonspecific reactivity produced by the patient specimen. The MITOGEN-NIL value serves as the positive control for the patient specimen, demonstrating successful lymphocyte activity. The TB1-NIL tube specifically detects CD4+ lymphocyte reactivity, specifically stimulated by the TB1 antigens. The TB2-NIL tube detects both CD4+ and CD8+ lymphocyte reactivity, stimulated by TB2 antigens. An overall Negative result does not completely rule out TB infection. A false-positive result in the absence of other clinical evidence of TB infection is not uncommon. Refer to: Updated Guidelines for Using Interferon Gamma Release Assays to Detect Mycobacterium tuberculosis Infection --- [place], 2010 (http://www.cdc.gov/mmwr/preview/mmwrhtml/cr1539f2.htm), for more information concerning test performance in low-prevalence populations and use in occupational screening. QuantiFERON Plus TB1 Minus NIL 0.00 0.00 - 0.34 IU/mL 12/09/2022 7:45 AM CDT [facility] ([facility]) QuantiFERON Plus TB2 Minus NIL 0.01 0.00 - 0.34 IU/mL 12/09/2022 7:45 AM CDT [facility] ([facility]) QuantiFERON Mitogen Minus NIL 8.80 IU/mL 12/09/2022 7:45 AM CDT [facility] ([facility]) Blood BLOOD SPECIMEN / Unknown Lab Venipuncture / Unknown 12/06/2022 1:41 PM CDT 12/06/2022 2:58 PM CDT Sraah Enciso MD LAB - CHEMISTRY RASHID INFANTE [facility] ([facility]) [address] * OXALATE BLOOD (12/06/2022 1:41 PM CDT) Only the most recent of2 resultswithin the time period is included. Pathologist [facility] Oxalate 47 mcmol/L 12/13/2022 5:54 PM CDT [facility] ([facility]) Comment: Serum or Plasma Reporting Limit: 2.0 mcmol/L ?? Synonym(s): Oxalic Acid Comment: Substance(s) known to interfere with the identity and/or quantity of the reported result: ??ascorbic acid Normal: 2.5 (SD 0.7) mcmol/L plasma Toxic: 200 mcmol/L plasma Ascorbic acid at very high concentration (exceeding 51 mcmol/mL plasma) can interfere. It is recommended that patients refrain from taking excessive amounts of vitamin C or vitamin C rich food for at least 48 hours prior to collection. Analysis by Enzymatic Assay (EZA) This test was developed and its performance characteristics determined by [facility]. ??It has not been cleared or approved by the US Food and Drug Administration. Digital data review may have taken place remotely by qualified [facility] staff utilizing a secure VPN connection for some or all of the reported results. This is in accordance with and follows CLIA regulations. Testing performed at [facility] [address] [place] [id number] CLIA [id number] Blood BLOOD SPECIMEN / Unknown Lab Venipuncture / Unknown 12/06/2022 1:41 PM CDT 12/06/2022 3:02 PM CDT Sarah Enciso MD LAB - CHEMISTRY RASHID INFANTE [facility] ([facility]) [address] * HIV-1 HIV-2 ANTIBODY + HIV P24 AG PANEL (12/06/2022 1:41 PM CDT) Pathologist [facility] HIV Antigen/Antibod y 1 & 2 Non-reacti ve Non-react nayeli 12/06/2022 3:45 PM CDT [facility] Comment:No Laboratory eviden ce of HIV infection. Blood BLOOD SPECIMEN / Unknown Lab Venipuncture / Unknown 12/06/2022 1:41 PM CDT 12/06/2022 2:56 PM CDT Sarah Enciso MD LAB - CHEMISTRY RASHID INFANTE [facility] [address] [place] [address], [facility] [phone] * OPIATES BLOOD (12/06/2022 1:41 PM CDT) Only the most recent of7 resultswithin the time period is included. [facility] Opiates Screen Negative 12/08/2022 10:07 PM CDT [facility] ([facility]) Comment:REFERENCE RANGE: thr shold: 10 ng/mL Oxycodone Screen Negative 12/09/19 10:07 PM CDT [facility] ([facility]) Comment:REFERENCE RANGE: thr shold: 10 ng/mL Specimen Type Comment 12/08/2022 10:07 PM CDT [facility] ([facility]) Comment: WHOLE BLOOD This specimen was screened by immunoassay at the thresholds listed above. Presumptive positive results have not been confirmed by an alternate method; results are intended for clinical medical purposes. Please contact the laboratory if confirmatory testing is desired. This test was developed and its performance characteristics determined by [facility]. It has not been cleared or approved by the Food and Drug Administration. Blood BLOOD SPECIMEN / Unknown Lab Venipuncture / Unknown 12/06/2022 1:41 PM CDT 12/06/2022 3:49 PM CDT Narrative [facility] ([facility]) - 12/08/2022 10:07 PM CDT Performed at: ??01 - [facility] [address] ??[id number] Professor Of German: Allison Gorman, Phone: ??[phone] Sarah Enciso MD LAB - CHEMISTRY RASHID INFANTE Performing Organization Address City/[facility]/ZIP Co de Phone Number [facility] ([facility]) [address] [phone] * URIC ACID BLOOD (12/06/2022 1:41 PM CDT) Only the most recent of3 resultswithin the time period is included. Uric Acid 5.4 2.6 - 6.0 mg/dL 12/06/2022 3:29 PM CDT [facility] Blood BLOOD SPECIMEN / Unknown Lab Venipuncture / Unknown 12/06/2022 1:41 PM CDT 12/06/2022 3:03 PM CDT Sarah Enciso MD LAB - CHEMISTRY ORDMomo INFANTE [facility] [address] [address], [facility] [phone] * PROTHROMBIN [id number] PANEL (12/06/2022 1:41 PM CDT) Pathologist [facility] Prothrombin [id number] Negative 12/10/2022 7:05 PM CDT [facility] ([facility]) Comment: Indication for testing: Assess genetic risk for thrombosis. NEGATIVE: The Factor II, prothrombin [id number] mutation, was not detected. ??Other causes of elevated prothrombin levels and hereditary forms of venous thrombosis have not been excluded. Recommendations: ??If clinically indicated, testing for other inherited or acquired thrombophilic disorders is recommended including DNA testing for the factor V Leiden mutation, measurement of total plasma homocysteine concentration, serological assays for anticardiolipin antibodies, multiple phospholipid-dependent coagulation assays for lupus inhibitor, protein C activity, protein S activity or free protein S antigen, and antithrombin activity. This result has been reviewed and approved by Sohan Nunez, Ph.D. 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 The expression of Factor II thrombophilia is impacted by coexisting genetic thrombophilic disorders, acquired thrombophilic disorders (eg, malignancy, hyperhomocysteinemia, high factor VIII levels), and circumstances including: , oral contraceptive use, hormone replacement therapy, selective estrogen receptor modulators, travel, central venous catheters, surgery, and organ transplantation. INCIDENCE: Approximately 2 percent of Caucasians and 0.3 percent of Americans are heterozygous; homozygosity occurs in 1 in 10,000 individuals. INHERITANCE: Incomplete autosomal dominant. PENETRANCE: The risk of thrombosis is increased 2-4 fold for heterozygotes and further increased for homozygotes. CAUSE: Homozygosity or heterozygosity for F2 c.*97G>A (R30232M). PATHOGENIC VARIANT TESTED: F2 c.*97G>A (T70718A). CLINICAL SENSITIVITY FOR VENOUS THROMBOSIS: Approximately 10 percent. METHODOLOGY: Polymerase chain reaction and fluorescence monitoring. ANALYTICAL SENSITIVITY AND SPECIFICITY: 99 percent. LIMITATIONS: Diagnostic errors can occur due to rare sequence variations. F2 gene variants, other than c.*97G>A (N02736T), will not be detected. This test was developed and its performance characteristics determined by [facility]. It has not been cleared or approved by the US Food and Drug Administration. This test was performed in a CLIA certified laboratory and is intended for clinical purposes. Counseling and informed consent are recommended for genetic testing. Consent forms are available online. Performed By: [facility] [address] [place] [address] Service Coordinator Elderly Facility: Ayan Akins MD, PhD CLIA Number: [id number] Source PT [id number] PCR Whole Blood 12/10/2022 7:05 PM CDT [facility]) Blood BLOOD SPECIMEN / Unknown Lab Venipuncture / Unknown 12/06/2022 1:41 PM CDT 12/06/2022 3:01 PM CDT Sarah Enciso MD LAB - COAGULATION OR DERABLES [facility]) [address] * STRONGYLOIDES ANTIBODY IGG (12/06/2022 1:41 PM CDT) Only the most recent of2 resultswithin the time period is included. Strongyloides Antibody IgG 0.5 <=0.9 IV 12/08/2022 10:55 PM CDT [email or web address] ([facility]) Comment: INTERPRETIVE INFORMATION: Strongyloides Ab, IgG by ANGELICA ??0.9 IV or less....... Negative - No significant ?level of Strongyloides IgG ?antibody detected. ??1.0 IV................Equivocal - The Strongyloides IgG ?antibody result is borderline and ?therefore inconclusive. Recommend ?retesting the patient in 2-4 weeks, ?if clinically indicated. ??1.1 IV or greater ... Positive - IgG antibodies to ?Strongyloides detected, which ?may suggest current or past ?infection. False-positive results may occur with prior exposure to other helminth infections. Testing low-prevalence populations may also result in false-positive results. Performed By: [facility] [address] [place] [address] Service Coordinator Elderly Facility: Ayan Akins MD, PhD CLIA Number: [id number] Blood BLOOD SPECIMEN / Unknown Lab Venipuncture / Unknown 12/06/2022 1:41 PM CDT 12/06/2022 2:56 PM CDT Sarah Enciso MD LAB - SEROLOGY ORDER WYATT [facility]) [address] [place] [address], [facility] * FACTOR V LEIDEN MUTATION PANEL (12/06/2022 1:41 PM CDT) [facility] Factor V Leiden Source Whole Blood 12/11/2022 7:29 AM CDT [facility] ([facility]) Factor V Leiden PCR/FRET Negative 12/11/2022 7:[address] [facility] ([facility]) Comment: Indication for testing: Assess genetic risk for thrombosis. NEGATIVE: The factor V Leiden variant, c.1601G>A; p.[id number], was not detected. This does not exclude a genetic cause for thrombophilia. If this individual has had a previous venous thromboembolism, this negative result is unlikely to significantly reduce the risk for recurrence; thus, future clinical management to reduce recurrence should not be altered. This result has been reviewed and approved by Sohan Nunez, Ph.D. BACKGROUND INFORMATION: Factor V Leiden (F5) R506Q Mutation CHARACTERISTICS: Venous thromboembolism (VTE) is multifactorial caused by a combination of genetic and environmental factors. The Factor V Leiden (FVL) variant is the most common cause of inherited VTEs, accounting for over 90 percent of activated protein C (APC) resistance. Because the FVL variant eliminates the APC cleavage site, factor V is inactivated slower, thus persisting longer in blood circulation, leading to more thrombin production. Other genetic risk factors for VTE include, male sex and variants in antithrombin, protein C, protein S, or factor XIII. Non-genetic risk factors include, age, smoking, prolonged immobilization, malignant neoplasms, surgery, , oral contraceptives, estrogen replacement therapy, tamoxifen and raloxifene therapy. INCIDENCE OF FACTOR V LEIDEN VARIANT: Approximately 5 percent of Caucasians, 2 percent of Hispanics, 1 percent of Americans and 0.5 percent of Asians are heterozygous; homozygosity occurs in 1 in 1500 Caucasians. INHERITANCE: Semi-dominant; both heterozygotes and homozygotes are at increased risk for VTE. PENETRANCE: Lifetime risk of VTE is 10 percent for heterozygotes and 80 percent of homozygotes. CAUSE: The pathogenic gain of function in the F5 gene variant c.1601G>A (p.Enl915Piz). Legacy nomenclature: R506Q (1691G>A) CLINICAL SENSITIVITY: 20-50 percent of individuals with an isolated VTE have the FVL variant. METHODOLOGY: Polymerase chain reaction and fluorescence monitoring. ANALYTICAL SENSITIVITY AND SPECIFICITY: 99 percent. LIMITATIONS: Diagnostic errors can occur due to rare sequence variations. F5 gene mutations, other than p.[id number], will not be detected. This test was developed and its performance characteristics determined by [facility]. It has not been cleared or approved by the US Food and Drug Administration. This test was performed in a CLIA certified laboratory and is intended for clinical purposes. Counseling and informed consent are recommended for genetic testing. Consent forms are available online. Performed By: [facility] [address] [place] [address] Service Coordinator Elderly Facility: Ayan Akins MD, PhD CLIA Number: [id number] Blood BLOOD SPECIMEN / Unknown Lab Venipuncture / Unknown 12/06/2022 1:41 PM CDT 12/06/2022 3:01 PM CDT Sarah Enciso MD LAB - COAGULATION OR DERABLES [facility] ([facility]) [address] [place] [address], [facility] * CARDIOLIPIN ANTIBODY IGM (12/06/2022 1:41 PM CDT) Pathologist [facility] Cardiolipin Antibody IgM <10 <=12 MPL 12/09/2022 8:[address] [facility] ([facility]) Comment: INTERPRETIVE INFORMATION: Anti-Cardiolipin IgM <=12 MPL: Negative 13-19 MPL: Indeterminate 20-80 MPL: Low to Moderately Positive 81 MPL or above: High Positive The persistent presence of IgG and/or IgM cardiolipin (CL) antibodies in moderate or high levels (greater than 40 GPL and/or greater than 40 MPL units) is a laboratory criterion for the diagnosis of antiphospholipid syndrome (APS). Persistence is defined as moderate or high levels of IgG and/or IgM CL antibodies detected ??in two or more specimens drawn at least 12 weeks apart (J Throm Haemost. 2006;4:295-306). Lower positive levels of IgG and/or IgM CL antibodies (above cutoff but less than 40 GPL and/or less than 40 MPL units) may occur in patients with the clinical symptoms of APS; therefore, the actual significance of these levels is undefined. Results should not be used alone for diagnosis and must be interpreted in light of APS-specific clinical manifestations and/or other criteria phospholipid antibody tests. Performed By: [facility] [address] [place] [address] Service Coordinator Elderly Facility: Ayan Akins MD, PhD CLIA Number: [id number] Blood BLOOD SPECIMEN / Unknown Lab Venipuncture / Unknown 12/06/2022 1:41 PM CDT 12/06/2022 2:56 PM CDT Sarah Enciso MD LAB - SEROLOGY ORDER WYATT [facility]) [address] [place] [address], [facility] * CARDIOLIPIN ANTIBODY IGG (12/06/2022 1:41 PM CDT) Cardiolipin Antibody IgG <10 <=14 GPL 12/07/2022 10:[address] [facility] ([facility]) Comment: INTERPRETIVE INFORMATION: Anti-Cardiolipin IgG Ab <=14 GPL: Negative 15-19 GPL: Indeterminate 20-80 GPL: Low to Moderately Positive 81 GPL or above: High Positive The persistent presence of IgG and/or IgM cardiolipin (CL) antibodies in moderate or high levels (greater than 40 GPL and/or greater ??than 40 MPL units) is a laboratory criterion for the diagnosis of antiphospholipid syndrome (APS). Persistence is defined as moderate or high levels of IgG and/or IgM CL antibodies detected in two or more specimens drawn at least 12 weeks apart (J Throm Haemost. 2006;4:295-306). Lower positive levels of IgG and/or IgM CL antibodies (above cutoff but less than 40 GPL and/or less than 40 MPL units) may occur in patients with the clinical symptoms of APS; therefore, the actual significance of these levels is undefined. Results should not be used alone for diagnosis and must be interpreted in light of APS-specific clinical manifestations and/or other criteria phospholipid antibody tests. Performed By: [facility] [address] [place] [address] Service Coordinator Elderly Facility: Ayan Akins MD, PhD CLIA Number: [id number] Blood BLOOD SPECIMEN / Unknown Lab Venipuncture / Unknown 12/06/2022 1:41 PM CDT 12/06/2022 2:55 PM CDT Sarah Enciso MD LAB - SEROLOGY ORDER WYATT [facility] ([facility]) [address] [place] [address], [facility] * (ABNORMAL) CYTOMEGALOVIRUS ANTIBODY IGG BLOOD (12/06/2022 1:41 PM CDT) Only the most recent of3 resultswithin the time period is included. Cytomegalovirus Antibody IgG 6.70(H) <=0.70 U/mL 12/08/2022 4:06 AM CDT [email or web address] ([facility]) Comment: INTERPRETIVE INFORMATION: Cytomegalovirus Antibody, IgG ??0.59 U/mL or less......... Not Detected ??0.6 - 0.69 U/mL........... Indeterminate-Repeat testing in ? 10-14 days may be helpful. ??0.70 U/mL or greater...... Detected In immunocompromised patients, CMV serology (IgG or IgM antibody titers) may not be reliable and may be misleading in the diagnosis of acute or reactivation CMV disease. The preferred method for diagnosis is culture of virus and/or demonstration of viral antigen in peripheral white cells (buffy coat), bronchoalveolar lavage (BAL) cells, or tissue biopsies. This test should not be used for blood donor screening, associated re-entry protocols, or for screening Human Cell, Tissues and Cellular and Tissue-Based Products (HCT/P). The best evidence for current infection is a significant change on two appropriately timed specimens, where both tests are done in the same laboratory at the same time. Performed By: [facility] [address] [place] [address] Service Coordinator Elderly Facility: Ayan Akins MD, PhD CLIA Number: [id number] Blood BLOOD SPECIMEN / Unknown Lab Venipuncture / Unknown 12/06/2022 1:41 PM CDT 12/06/2022 2:55 PM CDT Sarah Enciso MD LAB - CHEMISTRY ORDE ARELIS Performing Organization Address City/[facility] Co de Phone Number [facility]) [address] * RUBELLA ANTIBODY IGG TITER (12/06/2022 1:41 PM CDT) [facility] Rubella Antibody IgG 292.0 IU/mL 12/08/2022 4:[address] [facility] ([facility]) Comment: INTERPRETIVE INFORMATION: Rubella Antibody, IgG ??Less than 9 IU/mL ........ Not Detected ??9 - 9.9 IU/mL ............ Indeterminate-Repeat testing in ? 10-14 days may be helpful. ??10 IU/mL or Greater ...... Detected The best evidence for current infection is a significant change on two appropriately timed specimens, where both tests are done in the same laboratory at the same time. The magnitude of the measured result is not indicative of the amount of antibody present. Performed By: [facility] [address] [place] [address] Service Coordinator Elderly Facility: Ayan Akins MD, PhD CLIA Number: [id number] Blood BLOOD SPECIMEN / Unknown Lab Venipuncture / Unknown 12/06/2022 1:41 PM CDT 12/06/2022 3:00 PM CDT Sarah Enciso MD LAB - SEROLOGY ORDER WYATT Performing Organization Address City/[facility]/ZIP Co de Phone Number [facility] ([facility]) [address] * RUBEOLA ANTIBODY IGG (12/06/2022 1:41 PM CDT) Only the most recent of2 resultswithin the time period is included. [facility] ([place]) Antibody IgG >300.0 AU/mL 12/08/2022 3:38 AM CDT [email or web address] ([facility]) Comment: INTERPRETIVE INFORMATION: Measles ([place]) Antibody, IgG ??13.4 AU/mL or less........ Negative - No significant level ? of detectable measles (rubeola) ? IgG antibody. ??13.5-16.4 AU/mL .......... Equivocal - Repeat testing in ? 10-14 days may be helpful. ??16.5 AU/mL or greater .... Positive - IgG antibody to ? measles (rubeola) detected ? which may indicate a current ? or past exposure/immunization ? to measles (rubeola). The best evidence for current infection is a significant change on two appropriately timed specimens, where both tests are done in the same laboratory at the same time. Performed By: [facility] [address] [place] [address] Service Coordinator Elderly Facility: Ayan Akins MD, PhD CLIA Number: [id number] Blood BLOOD SPECIMEN / Unknown Lab Venipuncture / Unknown 12/06/2022 1:41 PM CDT 12/06/2022 2:59 PM CDT Sarah Enciso MD LAB - CHEMISTRY RASHID INFANTE Performing Organization Address [facility] Co de Phone Number [email or web address] ([facility]) [address] [place] [address], [facility] * MUMPS ANTIBODY IGG (12/06/2022 1:41 PM CDT) Only the most recent of2 resultswithin the time period is included. Mumps Virus Antibody IgG >300.0 AU/mL 12/08/2022 3:39 AM CDT [facility] ([facility]) Comment: INTERPRETIVE INFORMATION: Mumps Ab, IgG by PAULINE ??8.9 AU/mL or less .... Negative - No significant level of ? detectable IgG mumps virus antibody ??9.0-10.9 AU/mL ....... Equivocal - Repeat testing in - ? days may be helpful ??11.0 AU/mL or greater: Positive - IgG antibody to mumps ? virus detected, which may indicate ? a current or past exposure/ ? immunization to mumps virus. The best evidence for current infection is a significant change on two appropriately timed specimens, where both tests are done in the same laboratory at the same time. Performed By: [facility] [address] [place] [address] Service Coordinator Elderly Facility: Ayan Akins MD, PhD CLIA Number: [id number] Blood BLOOD SPECIMEN / Unknown Lab Venipuncture / Unknown 12/06/2022 1:41 PM CDT 12/06/2022 3:00 PM CDT Sarah Enciso MD LAB - CHEMISTRY RASHID INFANTE Performing Organization Address [facility]/ZIP Co de Phone Number [email or web address] ([facility]) [address] * VARICELLA ZOSTER ANTIBODY IGG (12/06/2022 1:41 PM CDT) Only the most recent of2 resultswithin the time period is included. Varicella zoster Virus Antibody IgG 3413.0 IV 12/08/2022 3:05 AM CDT [email or web address] ([facility]) Comment: INTERPRETIVE INFORMATION: VZV Ab, IgG 134.9 IV or less ....... Negative - No significant level of ? detectable IgG varicella-zoster ? antibody. 135.0 - 164.9 IV ....... Equivocal - Repeat testing in ? 10-14 days may be helpful. 165.0 IV or greater .... Positive - IgG antibody to ? varicella-zoster detected, which ? may indicate a current or past ? varicella-zoster infection. The best evidence for current infection is a significant change on two appropriately timed specimens, where both tests are done in the same laboratory at the same time. Performed By: [facility] [address] [place] [address] Service Coordinator Elderly Facility: Ayan Akins MD, PhD CLIA Number: [id number] Blood BLOOD SPECIMEN / Unknown Lab Venipuncture / Unknown 12/06/2022 1:41 PM CDT 12/06/2022 3:00 PM CDT Sarah Enciso MD LAB - CHEMISTRY RASHID INFANTE [email or web address] ([facility]) [address] * (ABNORMAL) PROTEIN S ANTIGEN TOTAL (12/06/2022 1:41 PM CDT) Pathologist [facility] Protein S Antigen Total 153(H) 63 - 126 % 12/08/2022 11:[address] [facility] [employer] ([facility]) Comment: INTERPRETIVE INFORMATION: Protein S, Total Antigen Patients on warfarin may have decreased protein S values. Patients should be off warfarin therapy for two weeks for accurate measurement of protein S. Access complete set of age- and/or gender-specific reference intervals for this test in the [facility] Test Directory ([facility]). Performed By: [facility] [address] [place] [address] Service Coordinator Elderly Facility: Ayan Akins MD, PhD CLIA Number: [id number] Blood BLOOD SPECIMEN / Unknown Lab Venipuncture / Unknown 12/06/2022 1:41 PM CDT 12/06/2022 2:56 PM CDT Sarah Enciso MD LAB - COAGULATION OR DERABLES [facility] ([facility]) [address] [place] [address] * PROTEIN C ACTIVITY (12/06/2022 1:41 PM CDT) Pathologist [facility] Protein C Activity 131 83 - 168 % 12/08/2022 2:44 PM CDT [facility] ([facility]) Comment: INTERPRETIVE INFORMATION: Protein C, Functional Patients on warfarin may have decreased protein C values. Patients should be off warfarin therapy for two weeks for accurate measurement of protein C levels. Artificially increased functional protein C values may be due to heparin therapy or the presence of direct thrombin inhibitors or factor Xa inhibitors. Access complete set of age- and/or gender-specific reference intervals for this test in the [facility] Test Directory ([facility]). Performed By: [facility] [address] [place] [address] Service Coordinator Elderly Facility: Ayan Akins MD, PhD CLIA Number: [id number] Blood BLOOD SPECIMEN / Unknown Lab Venipuncture / Unknown 12/06/2022 1:41 PM CDT 12/06/2022 2:56 PM CDT Sarah Enciso MD LAB - COAGULATION OR DERABLES [facility] [employer] ([facility]) [address] [place] [address] * PROTEIN C ANTIGEN (12/06/2022 1:41 PM CDT) Protein C Antigen Total >95 63 - 153 % 12/08/2022 3:[address] [facility] [employer] ([facility]) Comment: INTERPRETIVE INFORMATION: Protein C, Total Antigen Patients on warfarin may have decreased protein C values. Patients should be off warfarin therapy for two weeks for accurate measurement of protein C. Access complete set of age- and/or gender-specific reference intervals for this test in the [facility] Test [facility] ([facility]). Performed By: [facility] [address] [place] [address] Service Coordinator Elderly Facility: Ayan Akins MD, PhD CLIA Number: [id number] Blood BLOOD SPECIMEN / Unknown Lab Venipuncture / Unknown 12/06/2022 1:41 PM CDT 12/06/2022 2:56 PM CDT Sarah Enciso MD LAB - COAGULATION OR DERABLES Performing Organization Address [facility] Co de Phone Number [facility] [employer] ([facility]) [address] [place] [address] * (ABNORMAL) C-PEPTIDE (12/06/2022 1:41 PM CDT) Only the most recent of2 resultswithin the time period is included. C-Peptide 18.8(H) 0.5 - 3.3 ng/mL 12/08/2022 3:[address] [facility] [employer] ([facility]) Comment: INTERPRETIVE INFORMATION: Serum, C-Peptide Reference Interval applies to fasting specimens. To convert to nmol/L, multiply by 0.33 Performed By: [facility] [address] [place] [address] Service Coordinator Elderly Facility: Ayan Akins MD, PhD CLIA Number: [id number] Blood BLOOD SPECIMEN / Unknown Lab Venipuncture / Unknown 12/06/2022 1:41 PM CDT 12/06/2022 2:55 PM CDT Sarah Enciso MD LAB - CHEMISTRY ORDE ARELIS Performing Organization Address [facility] Co de Phone Number [email or web address]) [address] [place] [address] * (ABNORMAL) CEZAR VIPER VENOM DILUTE (12/06/2022 1:41 PM CDT) dRVVT 66(H) 33 - 44 sec 12/08/2022 10:20 PM CDT [facility] ([facility]) dRVVT 1:1 Mix 52(H) 33 - 44 sec 12/08/2022 10:20 PM CDT [facility] ([facility]) dRVVT Confirmatory Test Positive (A) Negative ratio 12/08/2022 10:20 PM CDT [facility] ([facility]) Comment: Lupus anticoagulant detected in the DRVVT test system. ??False positive results may be seen in the presence of high concentrations of anticoagulant medications or with specific factor inhibitors. Testing on two or more occasions at least 12 weeks apart is recommended to confirm persistently positive results (J Thromb Haemost 2006;4:295-306). Performed By: [facility] [address] [place] [address] Service Coordinator Elderly Facility: Ayan Akins MD, PhD CLIA Number: [id number] Blood BLOOD SPECIMEN / Unknown Lab Venipuncture / Unknown 12/06/2022 1:41 PM CDT 12/06/2022 3:00 PM CDT Sarah Enciso MD LAB - COAGULATION OR DERABLES Performing Organization Address [facility]/ZIP Co de Phone Number [facility] [employer] ([facility]) [address] [place] [address] * TRANSFERRIN (12/06/2022 1:41 PM CDT) Only the most recent of5 resultswithin the time period is included. Transferrin 198 174 - 382 mg/dL 12/06/2022 3:25 PM CDT [facility] Blood BLOOD SPECIMEN / Unknown Lab Venipuncture / Unknown 12/06/2022 1:41 PM CDT 12/06/2022 2:56 PM CDT Sarah Enciso MD LAB - CHEMISTRY RASHID INFANTE [address] [address], [facility] [phone] * TOXOPLASMA GONDII ANTIBODY IGG (12/06/2022 1:41 PM CDT) Only the most recent of2 resultswithin the time period is included. [facility] Toxoplasma Antibody IgG <3.0 <=8.8 IU/mL 12/08/2022 4:08 AM CDT [email or web address] ([facility]) Comment: INTERPRETIVE INFORMATION: Toxoplasma Ab, IgG ??7.1 IU/mL or less....... Not Detected ??7.2-8.7 IU/mL .......... Indeterminate-Repeat testing in ? 10-14 days may be helpful. ??8.8 IU/mL or greater ... Detected The best evidence for current infection is a significant change on two appropriately timed specimens, where both tests are done in the same laboratory at the same time. This test should not be used for blood donor screening, associated re-entry protocols, or for screening Human Cell, Tissues and Cellular and Tissue-Based Products (HCT/P). The magnitude of the measured result is not indicative of the amount of antibody present. Performed By: [facility] [address] [place] [address] Service Coordinator Elderly Facility: Ayan Akins MD, PhD CLIA Number: [id number] Blood BLOOD SPECIMEN / Unknown Lab Venipuncture / Unknown 12/06/2022 1:41 PM CDT 12/06/2022 2:55 PM CDT Sarah Enciso MD LAB - CHEMISTRY RASHID INFANTE Performing Organization Address City/[facility]/ZIP Co de Phone Number [email or web address] ([facility]) [address] [place] [address], [facility] * (ABNORMAL) DONNY-JUAN VIRUS ANTIBODY TO VCA IGG (12/06/2022 1:41 PM CDT) Only the most recent of2 resultswithin the time period is included. [facility] Donny-Juan Virus Antibody IgG Viral Capsid Antigen 261.0(H) 0.0 - 21.9 U/mL 12/08/2022 3:40 AM CDT [email or web address] ([facility]) Comment: INTERPRETIVE INFORMATION: Donny-Juan Virus Antibody to ?Viral Capsid Antigen, IgG ??17.9 U/mL or less.......Not Detected ??18.0-21.9 U/mL..........Indeterminate - Repeat testing in ?10-14 days may be helpful. ??22.0 U/mL or greater....Detected Performed By: [facility] [address] [place] [address] Service Coordinator Elderly Facility: Ayan Akins MD, PhD CLIA Number: [id number] Blood BLOOD SPECIMEN / Unknown Lab Venipuncture / Unknown 12/06/2022 1:41 PM CDT 12/06/2022 2:56 PM CDT Sarah Enciso MD LAB - CHEMISTRY RASHID INFANTE Performing Organization Address City/[facility]/ZIP Co de Phone Number [email or web address] ([facility]) [address] [place] [address], [facility] * HEMOGLOBIN ELECTROPHORESIS (12/06/2022 1:41 PM CDT) [facility] Interpretation Hemoglobin Pattern Normal Pattern Normal Pattern 12/08/2022 11:02 PM CDT [facility] Comment: Capillary hemoglobin (Hb) electrophoresis shows two Hb bands with electrophoretic mobilities corresponding to HbA and HbA2. No abnormal hemoglobins detected. ?? One or two gene deletion alpha thalassemia cannot be excluded since these conditions are not associated with abnormal findings on routine hemoglobin electrophoresis and except for mild microcytosis, are generally not associated with other hematologic abnormalities. Ashley Watson MD Resident PGY-2, Pathology Sona Little PhD, DAB(CC,TC) Clinical Japanese Interpreter and Ppap Coordinator ocular pathologist *The electrophoresis pattern and the interpretation have been reviewed and verified by the teaching physician. Hemoglobin A 97.7 97.0 - 98.2 % 12/08/2022 11:02 PM CDT [facility] Hemoglobin A2 2.3 1.8 - 3.0 % 12/08/2022 11:02 PM CDT [facility] Hemoglobin Other 0.0 Not Detected % 12/08/2022 11:02 PM CDT [facility] Blood BLOOD SPECIMEN / Unknown Lab Venipuncture / Unknown 12/06/2022 1:41 PM CDT 12/06/2022 3:03 PM CDT Sarah Enciso MD LAB - CHEMISTRY RASHID INFANTE [facility] Organization Address City/State/ZIP Co de Phone Number [facility] [address] [place] [address], [facility] [phone] * BETA-2 GLYCOPROTEIN 1 ANTIBODY IGG/IGM PANEL (12/06/2022 1:41 PM CDT) [facility] Beta-2 Glycoprotein Antibody IgG <10 <=20 SGU 12/07/2022 11:[address] [facility] ([facility]) Beta-2 Glycoprotein Antibody IgM <10 <=20 SMU 12/07/2022 11:[address] [facility] ([facility]) Comment: INTERPRETIVE INFORMATION: [id number] I, IgG and IgM Antibody The persistent presence of IgG and/or IgM beta 2 glycoprotein I (B2GPI) antibodies is a laboratory criterion for the diagnosis of antiphospholipid syndrome (APS). Persistence is defined as moderate or high levels of IgG and/or IgM B2GPI antibodies detected in two or more specimens drawn at least 12 weeks apart (J Throm Haemost. 2006;4:295-306). B2GPI results greater than 20 SGU (IgG) and/or SMU (IgM) are considered positive based on the cutoff values established for this test. International reference materials and consensus units for anti-B2GPI antibodies have not been established (Clin Octavio Acta. 2012;413(1-2):358-60; Arthritis Rheum. 2012;64(1):1-10.); results can be variable between different commercial immunoassays and cannot be compared. Strong clinical correlation is recommended for a diagnosis of APS. Low positive IgG and IgM B2GPI antibody levels should be interpreted in light of APS-specific clinical manifestations and/or other criteria phospholipid antibody tests. Performed By: [facility] [address] [place] [address] Service Coordinator Elderly Facility: Ayan Akins MD, PhD CLIA Number: [id number] Blood BLOOD SPECIMEN / Unknown Lab Venipuncture / Unknown 12/06/2022 1:41 PM CDT 12/06/2022 2:55 PM CDT Sarah Enciso MD LAB - CHEMISTRY RASHID INFANTE Performing Organization Address City/[facility]/ZIP Co de Phone Number [facility] ([facility]) [address] [place] [address] * (ABNORMAL) HOMOCYSTEINE BLOOD QUANTITATIVE (12/06/2022 1:41 PM CDT) [facility] Homocysteine 20.8(H) 4.4 - 16.2 umol/L 12/06/2022 3:54 PM CDT [facility] Blood BLOOD SPECIMEN / Unknown Lab Venipuncture / Unknown 12/06/2022 1:41 PM CDT 12/06/2022 3:03 PM CDT Sarah Enciso MD LAB - CHEMISTRY RASHID INFANTE [facility] [address] [place] [address], [facility] [phone] * ANTITHROMBIN III ACTIVITY (12/06/2022 1:41 PM CDT) [facility] Antithrombin III Activity 107.0 80.0 - 120.0 % 12/06/2022 3:14 PM CDT [facility] Blood BLOOD SPECIMEN / Unknown Lab Venipuncture / Unknown 12/06/2022 1:41 PM CDT 12/06/2022 3:00 PM CDT Narrative [facility] - 12/06/2022 3:14 PM CDT Thrombin inhibitors (i.e., hirudin, argatroban...) present in the sample to be tested may lead to an over-estimation of the AT level. Sarah Enciso MD LAB - COAGULATION OR DERABLES [facility] [address] [place] [address], [facility] [phone] * VITAMIN D 25-HYDROXY (12/06/2022 1:41 PM CDT) Only the most recent of5 resultswithin the time period is included. Vitamin D, 25 Hydroxy 55.0 30.0 - 80.0 ng/mL 12/06/2022 3:47 PM CDT [facility] Comment: The recommendations for 25-Hydroxy Vitamin D clinical decision points are as follows: ? Deficient: ? <20.0 ng/mL ? Insufficient: ? 20.0 - 29.9 ng/mL ? Sufficient: ? 30.0 - 100.0 ng/mL ? Potential Toxicity: ??>100 ng/mL Reference: The Endocrine Society Clinical Practice Guidelines. 2011 If the 25-Hydroxy Vitamin D results are inconsitent with clinical evidence, it is recommended that follow-up testing using a method such as LC/MS/MS be performed to confirm the result. ? Blood BLOOD SPECIMEN / Unknown Lab Venipuncture / Unknown 12/06/2022 1:41 PM CDT 12/06/2022 3:03 PM CDT Sarah Enciso MD LAB - CHEMISTRY RASHID INFANTE [facility] Organization Address City/State/ZIP Co de Phone Number [facility] [address] [place] [address], [facility] [phone] * NICOTINE + METABOLITES BLOOD (12/06/2022 1:41 PM CDT) Only the most recent of6 resultswithin the time period is included. [facility] Nicotine <5 ng/mL 12/10/2022 12:54 AM CDT [email or web address] ([facility]) Comment: Consistent with abstinence from nicotine-containing products for at least 1 week. INTERPRETIVE INFORMATION: Nicotine and Metabolites, ?Serum or Plasma, ?Quantitative Methodology: Quantitative Liquid Chromatography-Tandem Mass Spectrometry Positive cutoff: 5 ng/mL For medical purposes only; not valid for forensic use. This test is designed to evaluate recent use of nicotine-containing products. ??Passive and active exposure cannot be discriminated definitively, although a cutoff of 10 ng/mL cotinine is frequently used for surgery qualification purposes. ?? For smoking cessation programs or compliance testing, the absence of expected drug(s) and/or drug metabolite(s) may indicate non-compliance, inappropriate timing of specimen collection relative to drug administration, poor drug absorption, or limitations of testing. This test cannot distinguish between use of tobacco and purified nicotine products. The concentration value must be greater than or equal to the cutoff to be reported as positive. ?? This test was developed and its performance characteristics determined by [facility]. It has not been cleared or approved by the [place] Food and Drug Administration. This test was performed in a CLIA certified laboratory and is intended for clinical purposes. Performed By: [facility] [address] [place] [address] Service Coordinator Elderly Facility: Ayan Akins MD, PhD CLIA Number: [id number] Cotinine <5 ng/mL 12/10/2022 12:54 AM CDT [facility] ([facility]) Blood BLOOD SPECIMEN / Unknown Lab Venipuncture / Unknown 12/06/2022 1:41 PM CDT 12/06/2022 2:56 PM CDT Sarah Enciso MD LAB - CHEMISTRY RASHID INFANTE Performing Organization Address City/[facility]/ZIP Co de Phone Number [facility]) [address] [place] [address], [facility] * (ABNORMAL) HEPATITIS B SURFACE ANTIBODY (12/06/2022 1:41 PM CDT) Only the most recent of7 resultswithin the time period is included. Hepatitis B Virus Surface Antibody Reactive( A) Non-react nayeli 12/06/2022 3:45 PM CDT [facility] Comment: > 12 mIU/mL Hepatitis B surface Antibody (HBsAb). Reactive for HBsAb - individual is considered immune to Hepatitis B Virus infection. Hepatitis B Surface Antibody Quantitative 27.0(H) <8.0 mIU/mL 12/06/2022 3:45 PM CDT [facility] Comment: Hepatitis B Surface Antibody Numeric Result Interpretation: ? Nonreactive: ?<8.0 mIU/mL ? Indeterminate: ??8.0 - 12.0 mIU/mL ? Reactive: ?>12.0 mIU/mL ? Blood BLOOD SPECIMEN / Unknown Lab Venipuncture / Unknown 12/06/2022 1:41 PM CDT 12/06/2022 2:56 PM CDT Sarah Enciso MD LAB - CHEMISTRY RASHID INFANTE Performing Organization Address City/[facility]/ZIP Co de Phone Number [facility] [address] [place] [address], [place] [phone] * HEPATITIS B CORE ANTIBODY (12/06/2022 1:41 PM CDT) Only the most recent of6 resultswithin the time period is included. HBc Antibody Total Non-reacti ve Non-reacti ve 12/06/2022 3:45 PM CDT [facility] Blood BLOOD SPECIMEN / Unknown Lab Venipuncture / Unknown 12/06/2022 1:41 PM CDT 12/06/2022 2:56 PM CDT Sarah Enciso MD LAB - CHEMISTRY RASHID INFANTE Performing Organization Address [facility] Co de Phone Number [address] [address], [facility] [phone] * ALCOHOL ETHYL BLOOD (12/06/2022 1:41 PM CDT) Only the most recent of6 resultswithin the time period is included. Pathologist [facility] Ethanol (mg/dL) <10 <=10 mg/dL 3:29 PM CDT [facility] Ethanol Calculated (g/dL) <0.010 <0.010 g/dL 12/06/2022 3:29 PM CDT [facility] Blood BLOOD SPECIMEN / Unknown Lab Venipuncture / Unknown 12/06/2022 1:41 PM CDT 12/06/2022 3:03 PM CDT Narrative [facility] - 12/06/2022 3:29 PM CDT Ethanol Interp <10: None Detected. Depression of ARMATURE STRAIGHTENER: >100 mg/dl Potentially Critical: >250 mg/dl Potentially Fatal >400 mg/dl Ethanol in the patient's blood will contribute to the osmolar gap. Ethanol's contribution to the osmolar gap can be estimated by dividing the concentration of ethanol in mg/dL by 4.6. This test is for clinical use only and does not equal a DANIELLA for legal purposes. Sarah Enciso MD LAB - CHEMISTRY RASHID INFANTE Performing Organization Address [facility]/ZIP Co de Phone Number [address] [address], [facility] [phone] * HEPATITIS C ANTIBODY (12/06/2022 1:41 PM CDT) Only the most recent of6 resultswithin the time period is included. Hepatitis C Antibody Non-react nayeli Non-reac tive 12/06/2022 3:45 PM CDT [facility] Comment:Hepatitis C Antibody screen indicates no serologic evidence of past or current infection with Hepatitis C Virus. Patients with unexplained liver disease who are immunocompromised or suspected of having acute Hepatitis C infection may benefit from Nucleic Acid Test (LJ) for Hepatitis C Viral RNA to confirm Hepatitis C status. Blood BLOOD SPECIMEN / Unknown Lab Venipuncture / Unknown 12/06/2022 1:41 PM CDT 12/06/2022 2:56 PM CDT Sarah Enciso MD LAB - CHEMISTRY RASHID INFANTE [facility] [address] [place] [phone], [facility] [phone] * (ABNORMAL) HEPATITIS A ANTIBODY (12/06/2022 1:41 PM CDT) Only the most recent of3 resultswithin the time period is included. Pathologist [facility] Hepatitis A Virus Antibody Total Positive( A) Negative 12/07/2022 8:[address] [facility] [employer] ([facility]) Comment: The positive anti-HAV is consistent with recent or remote Hepatitis A infection or antibody response to HAV vaccination. False positive anti-HAV can occur. Performed By: [facility] [address] [place] [address] Service Coordinator Elderly Facility: Ayan Akins MD, PhD CLIA Number: [id number] Blood BLOOD SPECIMEN / Unknown Lab Venipuncture / Unknown 12/06/2022 1:41 PM CDT 12/06/2022 2:59 PM CDT Sarah Enciso MD LAB - CHEMISTRY RASHID INFANTE [facility]) [address] [place] [address] * XR PANOREX (12/06/2022 1:37 PM CDT) Only the most recent of5 resultswithin the time period is included. Anatomical Region Laterality Modality Head Radiographic Evan ging 12/06/2022 2:32 PM CDT Impressions 12/07/2022 1:19 AM CDT IMPRESSION: No evidence of periapical abscess. Report dictated by Yesica Michael MD (cath lab radiology technician). Tyson Bran MD have personally reviewed and interpreted this examination/study. > Interpreting Provider: Tyson Horne MD on 12/07/2022 1:19 AM Narrative 12/07/2022 1:19 AM CDT PROCEDURE: ??XR PANOREX DATE/TIME OF EXAM: ??12/06/2022 1:37 PM CLINICAL INFORMATION: None relevant/not provided if blank. Indication: Z01.818: Pre-transplant evaluation for kidney transplant COMPARISON: Panorex dated 11/17/2016. FINDINGS: Multiple dental restorations are identified, and numerous teeth are absent. No acute mandibular fracture is identified. Both temporomandibular joints are intact. No periapical abscess is present. There are multiple dental caries. Procedure Note Tyson Horne MD - 12/07/2022 PROCEDURE: XR PANOREX DATE/TIME OF EXAM: 12/06/2022 1:37 PM CLINICAL INFORMATION: None relevant/not provided if blank. Indication: Z01.818: Pre-transplant evaluation for kidney transplant COMPARISON: [facility]orex dated 11/17/2016. FINDINGS: Multiple dental restorations are identified, and numerous teeth areabsent. No acute mandibular fracture is identified. Both temporomandibularjoints are intact. No periapical abscess is present. There are multiple dental caries. IMPRESSION: No evidence of periapical abscess. Report dictated by Yesica Michael MD (cath lab radiology technician). Tyson Bran MD have personally reviewed and interpreted this examination/study. > Interpreting Provider: Tyson Horne MD on 12/07/2022 1:19 AM Sarah Enciso MD DIAGNOSTIC IMAGING O RDERABLES * CT ABDOMEN AND PELVIS NON IV CONTRAST (12/06/2022 1:11 PM CDT) Only the most recent of5 resultswithin the time period is included. Anatomical Region Laterality Modality Abdomen, Pelvis Computed Tomogra phy 12/06/2022 3:15 PM CDT Impressions 12/06/2022 11:42 PM CDT IMPRESSION: 1.Diffuse mural thickening of the distal rectal wall, unchanged from prior. 2.Bilateral atrophic kidneys. 3.No significant calcification of the external iliac arteries. > Dictated by Sharad Syed MD (Die Grinder) I, Tyson Horne MD have personally reviewed and interpreted this examination/study. > Interpreting Provider: Tyson Horne MD on 12/06/2022 11:42 PM Narrative 12/06/2022 11:42 PM CDT PROCEDURE: ??CT ABDOMEN PELVIS WO CONTRAST, DATE/TIME OF EXAM: ??12/06/2022 1:12 PM, LOCATION ??[facility] INDICATION: Z01.818: Pre-transplant evaluation for kidney transplant ADDITIONAL CLINICAL INFORMATION: Ordering Provider Reason For Exam: ??pre-kidney evaluation COMPARISON: CT abdomen and pelvis without contrast 05/08/2020. TECHNIQUE: Unenhanced axial CT of the abdomen and pelvis. Coronal and sagittal reformatted images were submitted. DOSE: CTDI: 9.7 mGy, DLP: 536 mGy-cm The reported CTDIvol (mGy) and DLP (mGy-cm) values are generated from scan acquisition factors based on 32 cm (body) or 16 cm (head) phantoms and may underestimate or overestimate the actual patient dose based on patient size and other factors. FINDINGS: Chest: Small calcified nodules/granulomas with linear and dependent atelectasis at the lung bases. Mild nodular thickening with calcification of the left lower pleural surface. Elevated right diaphragm, unchanged from prior. Hepatobiliary: A couple of hypoattenuated lesions within the liver, the largest one in the segment 7, measuring up to 1.3 cm, grossly unchanged from the prior. The hepatic length measures up to 17 cm. The gallbladder is surgically absent. No biliary dilation is seen. Pancreas: Normal without peripancreatic fluid collection. Spleen: Normal in size and attenuation. Adrenal glands: No mass is seen. : The kidneys are atrophic. Multiple small sized simple cysts in both kidneys. No definite renal calculus is identified. Urinary bladder is empty and contrast material is seen.. GI: There is no obstruction or abnormal bowel wall thickening. Large hiatal hernia. Surgical materials along the greater curvature of the stomach. The left colon predominant, multiple colonic diverticulosis without diverticulitis. Contrast materials in the appendix and mostly in the left colonic diverticula. Diffuse mural thickening of the distal rectal wall. Vascular: The aorta and inferior vena cava are normal for non-contrast technique. Mild to moderate atherosclerotic calcifications of the abdominal aorta and branch vessels. No significant calcification of the external iliac arteries. Other: There is no free air or abnormal fluid collection. No lymph node enlargement is seen. Bones: Moderate to advanced degenerative changes with Schmorl's nodules of the spine. Mild retrolisthesis of L2 on L3 and L5 on L4. Sacralization of L5. There is osteonecrosis of the femoral heads. Procedure Note Tyson Horne MD - 12/06/2022 PROCEDURE: CT ABDOMEN PELVIS WO CONTRAST, DATE/TIME OF EXAM:12/06/2022 1:12 PM, LOCATION [facility] INDICATION: Z01.818: Pre-transplant evaluation for kidney transplant ADDITIONAL CLINICAL INFORMATION: Ordering Provider Reason For Exam: pre-kidney evaluation COMPARISON: CT abdomen and pelvis without contrast 05/08/2020. TECHNIQUE: Unenhanced axial CT of the abdomen and pelvis. Coronal and sagittal reformatted images were submitted. DOSE: CTDI: 9.7 mGy, DLP: 536 mGy-cm The reported CTDIvol (mGy) and DLP (mGy-cm) values are generated fromscan acquisition factors based on 32 cm (body) or 16 cm (head) phantoms andmay underestimate or overestimate the actual patient dose based on patientsize and other factors. FINDINGS: Chest: Small calcified nodules/granulomas with linear and dependent atelectasis at the lung bases. Mild nodular thickening withcalcification of the left lower pleural surface. Elevated right diaphragm, unchangedfrom prior. Hepatobiliary: A couple of hypoattenuated lesions within the liver, the largest one in the segment 7, measuring up to 1.3 cm, grossly unchanged from the prior. The hepatic length measures up to 17 cm. The gallbladderis surgically absent. No biliary dilation is seen. Pancreas: Normal without peripancreatic fluid collection. Spleen: Normal in size and attenuation. Adrenal glands: No mass is seen. : The kidneys are atrophic. Multiple small sized simple cysts in both kidneys. No definite renal calculus is identified. Urinary bladder isempty and contrast material is seen.. GI: There is no obstruction or abnormal bowel wall thickening. Largehiatal hernia. Surgical materials along the greater curvature of the stomach.The left colon predominant, multiple colonic diverticulosis without diverticulitis. Contrast materials in the appendix and mostly in theleft colonic diverticula. Diffuse mural thickening of the distal rectal wall. Vascular: The aorta and inferior vena cava are normal for non-contrast technique. Mild to moderate atherosclerotic calcifications of theabdominal aorta and branch vessels. No significant calcification of the external iliac arteries. Other: There is no free air or abnormal fluid collection. No lymph node enlargement is seen. Bones: Moderate to advanced degenerative changes with Schmorl's nodulesof the spine. Mild retrolisthesis of L2 on L3 and L5 on L4. Sacralizationof L5. There is osteonecrosis of the femoral heads. IMPRESSION: 1.Diffuse mural thickening of the distal rectal wall, unchanged fromprior. 2.Bilateral atrophic kidneys. 3.No significant calcification of the external iliac arteries. > Dictated by Sharad Syed MD (Die Grinder) I, Tyson Horne MD have personally reviewed and interpreted this examination/study. > Interpreting Provider: Tyson Horne MD on 12/06/2022 11:42 PM [address] Enciso MD CT ORDERABLES * FL CYSTOGRAM VOIDING (12/06/2022 1:06 PM CDT) Only the most recent of2 resultswithin the time period is included. Anatomical Region Laterality Modality Abdomen, Pelvis Radiographic Evan ging 12/06/2022 2:02 PM CDT Impressions 12/06/2022 2:13 PM CDT IMPRESSION: Small capacity bladder. Limited imaging performed due to spontaneous bladder contraction, emptying the bladder. No postvoid residual or vesicoureteral reflux. > Interpreting Provider: French Patel MD on 12/06/2022 2:13 PM Narrative 12/06/2022 2:13 PM CDT PROCEDURE: ??FL CYSTOGRAM VOIDING DATE/TIME OF EXAM: ??12/06/2022 1:06 PM CLINICAL INFORMATION: None relevant/not provided if blank. Indication: Z01.818: Pre-transplant evaluation for kidney transplant Additional History: COMPARISON: 12/03/2015. FLUOROSCOPY DOSE: ??47 mGy Reference air kerma (ka,r). A formal dose report is available in the EMR/PACS system TECHNIQUE AND FINDINGS: A Hoover catheter was placed under sterile [...] completely empty. No vesicoureteral reflux is evident. Procedure Note French Patel MD - 12/06/2022 PROCEDURE: FL CYSTOGRAM VOIDING DATE/TIME OF EXAM: 12/06/2022 1:06 PM CLINICAL INFORMATION: None relevant/not provided if blank. Indication: Z01.818: Pre-transplant evaluation for kidney transplant Additional History: COMPARISON: 12/03/2015. FLUOROSCOPY DOSE: 47 mGy Reference air kerma (ka,r). A formal dose report is available in the EMR/PACS system TECHNIQUE AND FINDINGS: A Hoover catheter was placed under sterile conditions by nursing staff.The bladder was filled with approximately 100 cc Cystografin by gravity. The patient was unable to retain contrast within the bladder; voidingoccurred around the catheter. Limited fluoroscopic images show normal bladder contour. No filling defect is evident. Overhead images obtained by the technologist show that the bladder is completely empty. Novesicoureteral reflux is evident. IMPRESSION: Small capacity bladder. Limited imaging performed due to spontaneous bladder contraction,emptying the bladder. No postvoid residual or vesicoureteral reflux. > Interpreting Provider: French Patel MD on 12/06/2022 2:13 PM Sarah Enciso MD FLUOROSCOPY ORDERABL ES * VAS ARTERIAL MULTILEVEL LE (12/06/2022 9:58 AM CDT) Anatomical Region Laterality Modality Intravascular Ul trasound 12/06/2022 9:17 AM CDT Narrative Procedure Note Carlos García MD - 12/06/2022 Sarah Enciso MD VASCULAR LAB ORDERAB LES * (ABNORMAL) Diabetes Retinopathy Screening (09/14/2022 12:11 PM CDT) IDX DR SCREEN Diabetic Retinopathy Detected: ETDRS level 35 or higher and/or Diabetic Macular Edema (A) [facility] Comment: Next Steps: Refer to legal paraprofessional IDx Submission ID: [id number] Results were produced by a system that provides an artificial intelligence (AI) interpretation A positive result indicates a high risk of diabetic retinopathy with a severity of ETDRS level 35 or higher and/or macular edema. IDx-DR diabetic retinopathy exam does not replace a comprehensive eye exam. 09/14/2022 12:1 1 PM CDT Federico Branham Jr., MD PROCED URE/MINOR SURGICAL ORDERABLES DIGITAL DIAGNOSTICS DR [facility]ST[facility] * XR HIP RIGHT 2VW OR MORE (07/26/2022 12:16 PM CDT) Anatomical Region Laterality Modality Pelvis, Lower Extremity Other 07/26/2022 12:1 6 PM CDT Narrative 07/26/2022 12:20 PM CDT PROCEDURE: ??XR SI JOINTS 3VW OR MORE, XR PELVIS 1 OR 2VW, XR HIP RIGHT 2VW OR MORE DATE/TIME OF EXAM: ??07/26/2022 12:09 PM CLINICAL INFORMATION: None relevant/not provided if blank. Indication: M25.551: Pain in right hip G89.29: Other chronic pain M54.50: Low back pain, unspecified EXAMINATIONS: XR SI JOINTS 3VW OR MORE, XR PELVIS 1 OR 2VW, XR HIP RIGHT 2VW OR MORE HISTORY: M25.551: Pain in right hip; G89.29: Other chronic pain; M54.50: Low back pain, unspecified COMPARISON: None. FINDINGS/IMPRESSION: 1. No fracture, dislocation, suspicious intrinsic bony lesions, or suspicious soft tissue abnormalities are identified on these a study is. 2. 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 3. The hips appear normal and symmetric. The dedicated images of the right hip are normal. 4. There is mild enthesopathy of bilateral iliac wings and left greater trochanter. 5. Mildly dense multiple colonic and proximal sigmoid diverticula are opacified consistent with diverticulosis. The imaged bowel gas pattern is nonobstructive. > Interpreting Provider: Baljit Monteiro MD on 07/26/2022 12:20 PM Procedure Note Baljit Monteiro MD - 07/27/2022 PROCEDURE: XR SI JOINTS 3VW OR MORE, XR PELVIS 1 OR 2VW, XR HIP [id number] OR MORE DATE/TIME OF EXAM: 07/26/2022 12:09 PM CLINICAL INFORMATION: None relevant/not provided if blank. Indication: M25.551: Pain in right hip G89.29: Other chronic pain M54.50: Low back pain, unspecified EXAMINATIONS: XR SI JOINTS 3VW OR MORE, XR PELVIS 1 OR 2VW, XR HIP RIGHT 2VW OR MORE HISTORY: M25.551: Pain in right hip; G89.29: Other chronic pain; M54.50: Low back pain, unspecified COMPARISON: None. FINDINGS/IMPRESSION: 1. No fracture, dislocation, suspicious intrinsic bony lesions, or suspicious soft tissue abnormalities are identified on these a study is. 2. There is mild symmetric osteoarthritis of the sacroiliac jointswithout fusion of significant osteophytosis. 3. The hips appear normal and symmetric. The dedicated images of theright hip are normal. 4. There is mild enthesopathy of bilateral iliac wings and left greater trochanter. 5. Mildly dense multiple colonic and proximal sigmoid diverticula are opacified consistent with diverticulosis. The imaged bowel gas patternis nonobstructive. > Interpreting Provider: Baljit Monteiro MD on 07/26/2022 12:20 PM Octavia Parry GAS SHOVEL OPERATOR-COMPUTER INFORMATION SYSTEMS PROFESSOR DIAGNOSTIC EVAN GING ORDERABLES * XR PELVIS W RIGHT HIP 2VW (07/26/2022 12:09 PM CDT) Anatomical Region Laterality Modality Pelvis Radiographic Evan ging 07/26/2022 12:1 6 PM CDT Narrative 07/26/2022 12:20 PM CDT PROCEDURE: ??XR SI JOINTS 3VW OR MORE, XR PELVIS 1 OR 2VW, XR HIP RIGHT 2VW OR MORE DATE/TIME OF EXAM: ??07/26/2022 12:09 PM CLINICAL INFORMATION: None relevant/not provided if blank. Indication: M25.551: Pain in right hip G89.29: Other chronic pain M54.50: Low back pain, unspecified EXAMINATIONS: XR SI JOINTS 3VW OR MORE, XR PELVIS 1 OR 2VW, XR HIP RIGHT 2VW OR MORE HISTORY: M25.551: Pain in right hip; G89.29: Other chronic pain; M54.50: Low back pain, unspecified COMPARISON: None. FINDINGS/IMPRESSION: 1. No fracture, dislocation, suspicious intrinsic bony lesions, or suspicious soft tissue abnormalities are identified on these a study is. 2. 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 3. The hips appear normal and symmetric. The dedicated images of the right hip are normal. 4. There is mild enthesopathy of bilateral iliac wings and left greater trochanter. 5. Mildly dense multiple colonic and proximal sigmoid diverticula are opacified consistent with diverticulosis. The imaged bowel gas pattern is nonobstructive. > Interpreting Provider: Baljit Monteiro MD on 07/26/2022 12:20 PM Procedure Note Baljit Monteiro MD - 07/27/2022 PROCEDURE: XR SI JOINTS 3VW OR MORE, XR PELVIS 1 OR 2VW, XR HIP [id number] OR MORE DATE/TIME OF EXAM: 07/26/2022 12:09 PM CLINICAL INFORMATION: None relevant/not provided if blank. Indication: M25.551: Pain in right hip G89.29: Other chronic pain M54.50: Low back pain, unspecified EXAMINATIONS: XR SI JOINTS 3VW OR MORE, XR PELVIS 1 OR 2VW, XR HIP RIGHT 2VW OR MORE HISTORY: M25.551: Pain in right hip; G89.29: Other chronic pain; M54.50: Low back pain, unspecified COMPARISON: None. FINDINGS/IMPRESSION: 1. No fracture, dislocation, suspicious intrinsic bony lesions, or suspicious soft tissue abnormalities are identified on these a study is. 2. There is mild symmetric osteoarthritis of the sacroiliac jointswithout fusion of significant osteophytosis. 3. The hips appear normal and symmetric. The dedicated images of theright hip are normal. 4. There is mild enthesopathy of bilateral iliac wings and left greater trochanter. 5. Mildly dense multiple colonic and proximal sigmoid diverticula are opacified consistent with diverticulosis. The imaged bowel gas patternis nonobstructive. > Interpreting Provider: Baljit Monteiro MD on 07/26/2022 12:20 PM Octavia Parry GAS SHOVEL OPERATOR-COMPUTER INFORMATION SYSTEMS PROFESSOR DIAGNOSTIC EVAN GING ORDERABLES * XR SI JOINTS 3VW OR MORE (07/26/2022 12:09 PM CDT) Anatomical Region Laterality Modality Pelvis, Lower Extremity Radiogra phic Imaging 07/26/2022 12:1 6 PM CDT Narrative 07/26/2022 12:20 PM CDT PROCEDURE: ??XR SI JOINTS 3VW OR MORE, XR PELVIS 1 OR 2VW, XR HIP RIGHT 2VW OR MORE DATE/TIME OF EXAM: ??07/26/2022 12:09 PM CLINICAL INFORMATION: None relevant/not provided if blank. Indication: M25.551: Pain in right hip G89.29: Other chronic pain M54.50: Low back pain, unspecified EXAMINATIONS: XR SI JOINTS 3VW OR MORE, XR PELVIS 1 OR 2VW, XR HIP RIGHT 2VW OR MORE HISTORY: M25.551: Pain in right hip; G89.29: Other chronic pain; M54.50: Low back pain, unspecified COMPARISON: None. FINDINGS/IMPRESSION: 1. No fracture, dislocation, suspicious intrinsic bony lesions, or suspicious soft tissue abnormalities are identified on these a study is. 2. 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 3. The hips appear normal and symmetric. The dedicated images of the right hip are normal. 4. There is mild enthesopathy of bilateral iliac wings and left greater trochanter. 5. Mildly dense multiple colonic and proximal sigmoid diverticula are opacified consistent with diverticulosis. The imaged bowel gas pattern is nonobstructive. > Interpreting Provider: Baljit Monteiro MD on 07/26/2022 12:20 PM Procedure Note Baljit Monteiro MD - 07/27/2022 PROCEDURE: XR SI JOINTS 3VW OR MORE, XR PELVIS 1 OR 2VW, XR HIP [id number] OR MORE DATE/TIME OF EXAM: 07/26/2022 12:09 PM CLINICAL INFORMATION: None relevant/not provided if blank. Indication: M25.551: Pain in right hip G89.29: Other chronic pain M54.50: Low back pain, unspecified EXAMINATIONS: XR SI JOINTS 3VW OR MORE, XR PELVIS 1 OR 2VW, XR HIP RIGHT 2VW OR MORE HISTORY: M25.551: Pain in right hip; G89.29: Other chronic pain; M54.50: Low back pain, unspecified COMPARISON: None. FINDINGS/IMPRESSION: 1. No fracture, dislocation, suspicious intrinsic bony lesions, or suspicious soft tissue abnormalities are identified on these a study is. 2. There is mild symmetric osteoarthritis of the sacroiliac jointswithout fusion of significant osteophytosis. 3. The hips appear normal and symmetric. The dedicated images of theright hip are normal. 4. There is mild enthesopathy of bilateral iliac wings and left greater trochanter. 5. Mildly dense multiple colonic and proximal sigmoid diverticula are opacified consistent with diverticulosis. The imaged bowel gas patternis nonobstructive. > Interpreting Provider: Baljit Monteiro MD on 07/26/2022 12:20 PM Octavia Parry GAS SHOVEL OPERATOR-COMPUTER INFORMATION SYSTEMS PROFESSOR DIAGNOSTIC EVAN GING ORDERABLES * CARDIAC PROCEDURE ORDER (07/12/2022 7:30 PM CDT) Only the most recent of4 resultswithin the time period is included. Narrative 07/12/2022 7:30 PM CDT Ordered by an unspecified provider. Scanned Document CARDIAC SERVICES ORD ERABLES * NM MYOCARD PERF REST STRESS (06/16/2022 12:01 PM CDT) Only the most recent of7 resultswithin the time period is included. Anatomical Region Laterality Modality Chest Nuclear Digisoni cs 06/16/2022 9:40 AM CDT Narrative Procedure Note Bahman Ann MD - 06/16/[address] [place] [address] [facility] Nuclear Myocardial Perfusion Scan Report Pat.Name: MOY TOBIN Pat.ID: [id number] St.Date: 06/16/2022 Refer.MD: Charles Branham Exam Time: 9:40:00 AM Study Type:Nuclear Myocardial Perfusion Scan Height: 157.48cm Weight: 81.82kg BSA: 1.83 m2 Age: 6 1955,66Y Sex: FEMALE Sonogrphr: TIMOTHY Kwan Reason for Study: CAD- non obstructive, Chest pain History / Clinical: Hypertension, Obesity, Atrial fibrillation, Congestive heart failure, COPD, History of DVT, Hyperlipidemia, ESRD on dialysis, Diabetes Procedures: Lexiscan Perfusion Scan, Gated Stress Race: 2 Visit ID: [id number] Risk Factors:Hypertension, Diabetes, Hypercholesterolemia, Family history Clinical Symptoms:Chest pain Medications:Inhaler, Lanoxin, Lipitor, Eliquis, Phoslo, Neurontin, Fosrenal ++++++++++++++++++++++++++++++++++++ SUMMARY: ++++++++++++++++++++++++++++++++++++ FINDINGS: Myocardial perfusion imaging [...] images reveal mildly reduced LV systolic function. ++++++++++++++++++++++++++++++++++++ STRESS: ++++++++++++++++++++++++++++++++++++ Baseline Vital Signs: Intervention Lexiscan Peak Dose 0.4 mg Atropine 0 Stress Test Results: Target HR 130 Symptoms and Complications: Signed 06/16/2022 12:32 PM Bahman Ann MD Bahman Ann MD NM ORDERABLES * STRESS TEST EXERCISE (06/16/2022 11:27 AM CDT) BSA 1.9 m2 [facility] Target HR 130 bpm [facility] Max Age Predicted HR 153 bpm [facility] Base ST Depression (mm) 0 mm [facility] Target HR Percent 72 % [facility] Baseline HR 65 bpm [facility] Stress peak HR 93 bpm [facility] Max HR Percent 61 % [facility] Baseline BP 114/61 mmHg [facility] Post peak BP 123/60 mmHg [facility] Anatomical Region Laterality Modality Cardiac Electrop hysiology Narrative 06/16/2022 11:35 AM CDT No ischemic EKG changes during Lexiscan stress test. Nuclear perfusion images to be reported separately. Resting ECG Sinus rhythm Resting ECG shows no clinically relevant ST-segment deviation. Stress Findings A pharmacological stress test was performed using regadenoson. The patient had a maximal HR of 93 bpm (61 % of MPHR). The patient reported severe headaches during the stress test, which resolved after giving Caffeine 60mg/[id number] IV. Blood pressure demonstrated a normal response and heart rate demonstrated a normal response to stress. The patient's heart rate recovery was normal. Stress ECG The ECG was negative for ischemia. Procedure Note Bahman Ann MD - 06/16/2022 No ischemic EKG changes during Lexiscan stress test. Nuclear perfusion images to be reported separately. Bahman Ann MD CARDIAC SERVICES CUPID * XR LUMBAR SP FLEX EXT 2 OR 3VW (01/24/2022 11:07 AM HEARING AID FITTER) Anatomical Region Laterality Modality Spine Radiographic Evan ging 01/24/2022 11:2 6 AM HEARING AID FITTER Impressions 01/24/2022 11:38 AM HEARING AID FITTER IMPRESSION: Findings as noted. Edited by Suzi Rolle on 01/24/2022 11:36 AM > Interpreting Provider: Allan Miranda MD on 01/24/2022 11:38 AM Narrative 01/24/2022 11:38 AM HEARING AID FITTER PROCEDURE: ??XR LUMBAR SP FLEX EXT 2 OR 3VW, DATE/TIME OF EXAM: ??01/24/2022 11:07 AM, LOCATION ??[facility] INDICATION: M54.42: Lumbago with sciatica, left side M54.41: Lumbago with sciatica, right side G89.29: Other chronic pain M43.16: Spondylolisthesis, lumbar region FINDINGS: Lateral views of the lumbar spine in neutral, flexion and extension projections show anterolisthesis at L5-S1 of about 6 mm, unchanged from 11/18/2021. Severe degenerative changes are present at the interspace at L2-L3, unchanged from prior exam as well. No change in position of vertebral bodies with respect to each other is seen on flexion or extension projection. Procedure Note Allan Miranda MD - 01/24/2022 PROCEDURE: XR LUMBAR SP FLEX EXT 2 OR 3VW, DATE/TIME OF EXAM:01/24/2022 11:07 AM, LOCATION [facility] INDICATION: M54.42: Lumbago with sciatica, left side M54.41: Lumbago with sciatica, right side G89.29: Other chronic pain M43.16: Spondylolisthesis, lumbar region FINDINGS: Lateral views of the lumbar spine in neutral, flexion and extension projections show anterolisthesis at L5-S1 of about 6 mm, unchanged from 11/18/2021. Severe degenerative changes are present at the interspace at L2-L3, unchanged from prior exam as well. No change in position of vertebral bodies with respect to each other is seen on flexion or extension projection. IMPRESSION: Findings as noted. Edited by Suzi Rolle on 01/24/2022 11:36 AM > Interpreting Provider: Allan Miranda MD on 01/24/2022 11:38 AM Francesco Hong MD DIAGNOSTIC IMAGING O RDERABLES * ECHOCARDIOGRAM 2D WITH DOPPLER (12/16/2021 10:21 AM CDT) Only the most recent of10 resultswithin the time period is included. 12/16/2021 10:2 1 AM CDT Narrative Procedure Note Brayan Saunders MD - 12/16/2021 . [facility]? s [address] [place] [address] [place] [address] Echocardiography Examination Transthoracic Name: MOY TOBIN MPI#: MR#: [id number] Admission Number: [id number] Study Date: 12/16/2021 Study Time: 09:39 AM Date Of : 1955 Age: 66 years Height: 62 in. (157.5 cm) Weight: 209.99 lbs. (95.25 kg) BSA: 1.95 m2 Gender: Female Blood Pressure: 102 mmHg / 53 mmHg Heart Rate: Exam Details Procedure Ordered: ECHOCARDIOGRAM 2D W/DOPPLER Procedure Components: Complete 2D, M-mode, complete spectral Doppler, color Doppler Procedure Status: Routine study Facility Location: [facility] [place] Indication: HFrEF Procedure Inside Tester: [id number] Mott,RDCS,RVT Ordering Provider: Bahman Ann MD Reading Physician: BRAYAN SAUNDERS MD Conclusions Left Ventricle: ? ? Left [...] Valve Measurements ? ? RVSP: 34 mmHg. Follow up: Patient: MOY TOBIN Study Date: 12/16/2021 09:39 AM Page 1 of 4 Findings Left Ventricle: Left ventricle is normal [...] is normal in appearance. No pericardial effusion. Clinical Data Diabetes: Other Known CAD: Yes Primary Valvular HD Type: Mitral Regurgitation Cardiomyopathy: Yes Prior Heart Failure: Yes Chronic Lung Disease: Yes Measurements Anatomy Label Value Normal Value Aorta [...] 2 cm?? Aortic Valve SAIMA Index (continuity 0.97 cm??/m?? eq.Vmax) Patient: MOY TOBIN Study Date: 12/16/2021 09:39 AM Page 2 of 4 Aortic Valve AV Opening, 2D [...] LVOT Vmean 0.67 m/s Left Ventricle Diastolic MV E Vmax 0.61 m/s Function Left Ventricle Diastolic MV A Vmax 1.05 m/s Function Left Ventricle Diastolic MV E/A 0.58 Function Left Ventricle Diastolic MV DT 182 ms Function Left Ventricle Diastolic MV E' septal 0.03 m/s Function Left Ventricle Diastolic MV E' lateral 0.07 m/s Function Left Ventricle Diastolic MV E/E' mean 12.2 Function Left Ventricle Diastolic MV E' mean 0.05 m/s Function Mitral Valve MV Vmax 0.93 m/s Mitral Valve MV Vmean 0.54 m/s Mitral Valve MV VTI 19.48 cm Mitral Valve MVA D (continuity eq.) 3 cm?? Mitral Valve MV PGmax 3 mmHg Mitral Valve MV PGmean 1 mmHg Mitral Valve MVA PHT 3.1 cm?? Patient: MOY TOBIN Study Date: 12/16/2021 09:39 AM Page 3 of 4 Mitral Valve MV PHT 70 ms Mitral Valve MV Dec [place] 3.36 m/s?? Right Ventricle Diastolic TR Pmax 29 mmHg Function Right Ventricle Diastolic PV AT 78 ms Function Tricuspid Valve RVSP 34 mmHg Tricuspid Valve RA Pressure 5 mmHg Tricuspid Valve TR Vmax 2.7 m/s (No Signature Object) Patient: MOY TOBIN Study Date: 12/16/2021 09:39 AM Page 4 of 4 Bahman Ann MD ECHO ORDERABLES [facility] [address] [place] [address] * IR ANGIO AV SHUNT IMAGING (12/01/2021 12:52 PM CDT) Only the most recent of6 resultswithin the time period is included. Anatomical Region Laterality Modality Lower Extremity, Upper Extremity, Chest X-Ray Angiography Narrative 12/01/2021 12:41 PM CDT Radha Guevara MD ? 12/01/2021 12:56 PM VASCULAR AND INTERVENTIONAL RADIOLOGY EXAMINATION: DIALYSIS FISTULAGRAM WITH ANGIOPLASTY Date: 12/01/2021 History: Moy Tobin is a 66 year old female with history of hypertension, CHF, and end-stage renal disease who dialyzes through a left forearm radiocephalic arteriovenous fistula. ??The patient notes recent prolonged bleeding upon decannulation lasting up to 40 minutes. ??No complaints of inadequate dialysis or left upper extremity swelling. ??Fistulagram is requested. Diagnosis code: N18.6 Fluoroscopy time: ??4.24 minutes. Absorbed patient dose: ??17.18 mGy. Contrast amount: ??25 mL Isovue-300. trolley car operator: Dr. Devon Del Castillo Technique: The risks, benefits, and alternatives were discussed and informed consent was obtained. ??Prior to beginning the procedure, universal protocol was performed to confirm the patient's identity and the planned procedure. ??Maximum sterile barriers including cap, mask, hand hygiene, sterile gloves, sterile gown, large sterile drape, and 2% chlorhexidine for cutaneous antisepsis were used. The skin over the left upper extremity dialysis arteriovenous radiocephalic fistula was sterilely prepped, draped, and infiltrated with 1% lidocaine. ??Retrograde access was obtained within the mid forearm cephalic vein using a micropuncture needle set followed by placement of a 5-Bolivian catheter. ??Fluoroscopy was used for all catheter and guidewire manipulations. ?? Subsequently, a retrograde 6 Bolivian x 4 cm Merit vascular sheath was placed using a 0.035 regular angled Glidewire. ??Given the physical examination findings of focally diminished pulse augmentation at the cephalic vein swing segment, angiography performed from the radial artery proximal to the anastomosis was indicated. ??Multiple DSA images were obtained to visualize the dialysis access from the radial artery proximal to the anastomosis through the superior vena cava. Conscious sedation was administered using 0.5 mg of Versed and 25 mcg of Fentanyl at a sedation start time of 12:26 p.m. and end time of 12:38 p.m.. ??The patient was monitored throughout the entirety of the procedure by the interventional nurse in addition to the physician performing the procedure. The cephalic vein swing segment stenosis was dilated using a 6 mm x 4 cm Ultraverse balloon. ??Repeat angiography performed from the radial artery proximal to the anastomosis demonstrated improvement. ??Next, this area was angioplastied with a 7 mm x 4 cm Ultraverse balloon. ??Repeat DSA images obtained from the radial artery demonstrated an excellent response with improved flow through the arteriovenous fistula. ?? At the end of the procedure, the sheath was removed, a pursestring suture was placed with 2-0 Prolene around the entry site, and hemostasis was achieved. ??A sterile dressing was applied. ??The patient tolerated the procedure well and without complications. Findings: Images of the dialysis access show an approximately 40% focal cephalic vein swing segment stenosis at the distal forearm. Note, this area corresponded to the area of focally diminished pulse augmentation on preprocedure physical examination. ??There is no other focal flow-limiting stenosis of the radial artery proximal to the anastomosis, arteriovenous anastomosis, mid/proximal left forearm cephalic vein, median antecubital vein, left upper arm basilic vein, left axillary vein, left brachiocephalic vein, or superior vena cava. ??20% non flow-limiting central left subclavian vein stenosis is noted. ?? There is no thoracic venous collateralization. Post angioplasty images show an excellent response with a patent radiocephalic arteriovenous fistula with improved brisk flow. ?? There was near complete resolution of the previously described cephalic vein swing segment stenosis. ??Note, there was no outflow stenosis to account for the patient's history of recent prolonged bleeding upon decannulation. IMPRESSION: Successful angioplasty of the cephalic vein swing segment stenosis, as described above. PLAN: ??The dialysis access is ready for immediate use. ??Flow should be monitored and used to guide decisions about the need for repeat intervention. ??The patient's left upper extremity suture can be removed in 1-3 days. Black Guevara M.D. Vascular and Interventional Radiology [facility] [phone] CC: Patient's solar crew member: Dr. Jc Moreau Dialysis unit: [facility] Jc Moreau MD IR ORDERABLES * XR LUMBAR SPINE 2 OR 3VW (11/18/2021 11:35 AM CDT) Only the most recent of4 resultswithin the time period is included. Anatomical Region Laterality Modality Spine Radiographic Evan ging 11/18/2021 11:5 8 AM CDT Narrative 11/18/2021 12:18 PM CDT PROCEDURE: ??XR LUMBAR SPINE 2 OR 3VW, DATE/TIME OF EXAM: ??11/18/2021 11:35 AM, LOCATION ??[facility] INDICATION: M48.061: Spinal stenosis, lumbar region without neurogenic claudication M54.16: Radiculopathy, lumbar region M43.16: Spondylolisthesis, lumbar region FINDINGS: Since 08/12/2021, there has been no change in the left convex lumbar scoliosis or diffuse degenerative changes with endplate irregularity seen at L2-3. Anterolisthesis at L5-S1 is stable and unchanged. No new fracture or bone destruction is seen. Degenerative change of the left sacroiliac joint is stable. DIAGNOSIS: Stable lumbar spine as described. > Interpreting Provider: Ryland Louie MD on 11/18/2021 12:18 PM Procedure Note Ryland Louie MD - 11/18/2021 PROCEDURE: XR LUMBAR SPINE 2 OR 3VW, DATE/TIME OF EXAM: 1:35 AM, LOCATION [facility] INDICATION: M48.061: Spinal stenosis, lumbar region without neurogenic claudication M54.16: Radiculopathy, lumbar region M43.16: Spondylolisthesis, lumbar region FINDINGS: Since 08/12/2021, there has been no change in the left convex lumbar scoliosis or diffuse degenerative changes with endplate irregularityseen at L2-3. Anterolisthesis at L5-S1 is stable and unchanged. No newfracture or bone destruction is seen. Degenerative change of the left sacroiliac joint is stable. DIAGNOSIS: Stable lumbar spine as described. > Interpreting Provider: Ryland Louie MD on 11/18/2021 12:18 PM Ryland Fuentes MD DIAGNOSTIC IMAGING O RDERABLES * MAMMO BILAT SCREENING (10/13/2021) Anatomical Region Laterality Modality Breast Bilateral Mammography 10/13/2021 Angelica Campbell GAS SHOVEL OPERATOR-ANA MAMMO ORDERABLES * IR SHARLENE LUMBAR DIRECT APPROACH (06/08/2021 2:55 PM CDT) Anatomical Region Laterality Modality Spine X-Ray Angiograph y 06/28/2021 6:53 AM CDT Narrative 06/28/2021 6:54 AM CDT History: Patient with back pain radiating to the legs for a epidural steroid injection Operators: 1. ??Dr. Rushing, Attending Physician Anesthesia: Local with 5 mL of 1% lidocaine Procedure: Fluoroscopy-guided L2-3 interlaminar epidural steroid injection. Procedure details: The procedure, risks, and possible complications were explained to the patient in detail, and informed consent was obtained. The patient was placed prone on the procedure table. The lower back was prepped and draped in the usual sterile manner. Pre-procedure fluoroscopy was done in the region of interest, and the needle entry site was marked on the lower back. After injection of 1% lidocaine for local anesthesia, a 21-gauge needle was advanced into the epidural space at the level of L2-3. Contrast was injected and epidurography was performed, which confirmed the tip of the needle in the epidural space. Subsequently, a mixture of 1 mL betamethasone (6 mg/mL) was injected. The needle was removed, and sterile dressing was applied. The patient tolerated the procedure well and was transferred to the holding area in stable condition. There were no immediate complications associated with the procedure. Impression: L2-3 interlaminar epidural steroid injection under fluoroscopic guidance. I, Dr. Rushing performed/was present throughout the procedure. *Reading Radiologist: Eamon Rushing on 06/28/2021 at 6:54 AM Procedure Note Eamon Rushing MD - 06/28/2021 History: Patient with back pain radiating to the legs for a epidural steroid injection Operators: 1. Dr. Rushing, Attending Physician Anesthesia: Local with 5 mL of 1% lidocaine Procedure: Fluoroscopy-guided L2-3 interlaminar epidural steroid injection. Procedure details: The procedure, risks, and possible complications were explained to the patient in detail, and informed consent was obtained. The patient was placed prone on the procedure table. The lower back was prepped and draped in the usual sterile manner. Pre-procedure fluoroscopy was done in the region of interest, and the needle entry site was marked on the lower back. After injection of 1% lidocaine for local anesthesia, a 21-gauge needle was advanced into the epidural space at the level of L2-3. Contrast was injected and epidurography was performed, which confirmed the tip of the needle in the epidural space. Subsequently, a mixture of 1 mL betamethasone (6 mg/mL) was injected. The needle was removed, and sterile dressing was applied. The patient tolerated the procedure well and was transferred to the holding area in stable condition. There were no immediate complications associated with the procedure. Impression: L2-3 interlaminar epidural steroid injection under fluoroscopic guidance. I, Dr. Rushing performed/was present throughout the procedure. *Reading Radiologist: Eamon Rushing on 06/28/2021 at 6:54 AM Ryland Fuentes MD IR ORDERABLES * OCT (05/24/2021 1:14 PM CDT) Anatomical Region Laterality Modality Other 05/24/2021 1:14 PM CDT Moo Szymanski OPHTHALMOLOGY SERVIC ES ORDERABLES * Visual [place] (05/24/2021 1:00 PM CDT) Anatomical Region Laterality Modality Other 05/24/2021 1:00 PM CDT Moo Szymanski OPHTHALMOLOGY SERVIC ES ORDERABLES * MRI LUMBAR SPINE WO CONTRAST (04/16/2021 10:21 AM HEARING AID FITTER) Anatomical Region Laterality Modality Spine Magnetic Resonan ce 04/16/2021 10:4 6 AM HEARING AID FITTER Impressions 04/16/2021 11:42 AM HEARING AID FITTER Multilevel degenerative joint disc disease noted. This is most significant at L2-L3 and L3-L4. Surgical consultation is recommended if not already obtained. Multicystic renal disease which is incompletely evaluated. Consider follow-up ultrasound for further evaluation. Edited by Faith Carney on 04/16/2021 11:10 AM *Reading Radiologist: Ramon Silveira on 04/16/2021 at 11:42 AM Narrative 04/16/2021 11:42 AM HEARING AID FITTER MRI LUMBAR SPINE WITHOUT CONTRAST INDICATION: Low back pain with bilateral sciatica. TECHNIQUE: Multisequence, multiplanar MRI sequences of the lumbar spine without contrast. Comparison is made with radiographs of the lumbar spine dated November 01, 2020. Comparison is made with abdominal MRI dated June 11, 2020. FINDINGS: Sagittal image analysis demonstrates multilevel spondylosis with typically benign endplate changes with disc space narrowing, disc desiccation, and anterior extradural defects. Slight anterolisthesis of L5 over S1 is noted without evident pars defects. The conus medullaris terminates normally. Multicystic kidney disease with atretic kidneys is noted. Some of these are complex appearing cysts incompletely evaluated on today's exam. No other paravertebral soft tissue abnormalities are noted. Axial image analysis is as follows: L1-L2: Mild circumferential disc bulge is noted without significant foraminal narrowing and canal stenosis. L2-L3: Irregular circumferential disc bulge is noted in conjunction with ligamentum flavum hypertrophy causing moderate to severe central canal stenosis and moderate to severe bilateral right greater than left foraminal narrowing. L3-L4: A circumferential disc bulge is noted in conjunction with ligamentum flavum and facet arthropathy combining to cause mild bilateral left greater than right foraminal narrowing and mild to moderate central canal stenosis. L4-L5: A circumferential disc bulge is noted in conjunction with facet and ligamentum flavum hypertrophy left greater than right. This contributes to severe left-sided foraminal narrowing and mild canal stenosis. L5-S1: A circumferential disc bulge is noted in conjunction with facet and ligamentum flavum hypertrophy. This combines to cause mild left-sided foraminal narrowing. Procedure Note Ramon Silveira, DO - 04/16/2021 MRI LUMBAR SPINE WITHOUT CONTRAST INDICATION: Low back pain with bilateral sciatica. TECHNIQUE: Multisequence, multiplanar MRI sequences of the lumbar spine without contrast. Comparison is made with radiographs of the lumbar spine dated November 01, 2020. Comparison is made with abdominal MRI dated June 11, 2020. FINDINGS: Sagittal image analysis demonstrates multilevel spondylosis with typically benign endplate changes with disc space narrowing, disc desiccation, and anterior extradural defects. Slight anterolisthesis of L5 over S1 is noted without evident pars defects. The conus medullaris terminates normally. Multicystic kidney disease with atretic kidneys is noted. Some of these are complex appearing cysts incompletely evaluated on today's exam. No other paravertebral soft tissue abnormalities are noted. Axial image analysis is as follows: L1-L2: Mild circumferential disc bulge is noted without significant foraminal narrowing and canal stenosis. L2-L3: Irregular circumferential disc bulge is noted in conjunction with ligamentum flavum hypertrophy causing moderate to severe central canal stenosis and moderate to severe bilateral right greater than left foraminal narrowing. L3-L4: A circumferential disc bulge is noted in conjunction with ligamentum flavum and facet arthropathy combining to cause mild bilateral left greater than right foraminal narrowing and mild to moderate central canal stenosis. L4-L5: A circumferential disc bulge is noted in conjunction with facet and ligamentum flavum hypertrophy left greater than right. This contributes to severe left-sided foraminal narrowing and mild canal stenosis. L5-S1: A circumferential disc bulge is noted in conjunction with facet and ligamentum flavum hypertrophy. This combines to cause mild left-sided foraminal narrowing. IMPRESSION Multilevel degenerative joint disc disease noted. This is most significant at L2-L3 and L3-L4. Surgical consultation is recommended if not already obtained. Multicystic renal disease which is incompletely evaluated. Consider follow-up ultrasound for further evaluation. Edited by Faith Carney on 04/16/2021 11:10 AM *Reading Radiologist: Ramon Silveira on 04/16/2021 at 11:42 AM Federico Branham Jr., MD MR DEMETRIA HERNANDEZ * Corneal Topography (03/19/2021 11:26 AM HEARING AID FITTER) Anatomical Region Laterality Modality Other 03/19/2021 11:2 6 AM HEARING AID FITTER Dylan Gil MD OPHTHALMOLOGY SERVIC ES ORDERABLES * PATHOLOGY TISSUE (12/31/2020 8:41 AM HEARING AID FITTER) Only the most recent of6 resultswithin the time period is included. Case Report Surgical Pathology Report ? Case: [id number] ? Authorizing Provider: ??Sterling Davidson MD ? Collected: ? 12/31/2020 08:41 AM ? Ordering Location: ? [facility] ?Received: ?12/31/2020 11:42 AM ? Pathologist: ? Brooke Burnette MD ? Specimen: ?Polyp Colon, Colon Polyps x 5 ? 01/02/2021 4:18 PM [facility] Final Diagnosis Large intestine, colon polyps x5, biopsy (A): - Hyperplastic polyps 01/02/2021 4:18 PM [facility] Microscopic Description and Comment Microscopic examination including multiple deeper levels substantiates the final diagnosis. 01/02/2021 4:18 PM [facility] Clinical History The patient is a 65-year-old woman who presents for high risk colon cancer surveillance (personal history of colonic polyps). Operative procedure/findings: Colonoscopy - five 2-3 mm rectal, sigmoid, descending, and cecal polyps, resected and retrieved. 01/02/2021 4:18 PM [facility] Gross Description The requisition and specimen(s) are identified with the patient's name Moy Tobin. Received in formalin, specimen A , are 6 pink-barron tissues, 0.1-0.5 cm in greatest dimension and 1.7 x 0.4 x 0.2 cm in aggregate, submitted in toto in cassette A1. DF 01/02/2021 4:18 PM [facility] Disclaimer The performance characteristics of all immunohistochemical and indirect immunofluorescence stains (if any) cited in this report were determined by the Histopathology Laboratory of [facility]. Some of these tests were developed by our own laboratory and have not been cleared or approved by the US Food and Drug Administration. The FDA does not require this test to go through premarket FDA review. These tests are used for clinical purposes. They should not be regarded as investigational or for research. This laboratory is certified under the Clinical Laboratory Improvement Amendments (CLIA) as qualified to perform high complexity clinical laboratory testing. This case has been personally reviewed and interpreted by the attending (teaching) pathologist. 01/02/2021 4:18 PM HEARING AID FITTER [facility] Embedded Images 01/02/2021 4:18 PM HEARING AID FITTER [facility] Biopsy, NOS POLYP OF COLON / Unknown 12/31/2020 8:41 AM HEARING AID FITTER 12/31/2020 11:42 AM HEARING AID FITTER Comment:Pre-op diagnosis: Pharyngoesophageal dysphagia [R13.14] Screen for colon cancer [Z12.11] Sterling Davidson MD LAB - PATHOLOGY/CYTO LOGY ORDERABLES [facility] [address] [place] [address], [facility] [phone] * ENDOSCOPY, COLON, DIAGNOSTIC (12/31/2020 8:24 AM HEARING AID FITTER) Report Endoscopy POC Endoscopy Department Report _ Patient Name: Moy Tobin ?Procedure Date: 12/31/2020 8:24 AM ? Date of : 1955 Classification: Outpatient ?Gender: Female Ethnicity: Not or ? Race: Black or _ Providers: ?Sterling Davidson MD. Kristopher Mayer MD Referring MD: ? Federico Howe Carrol Avila (Referring MD) Procedure: ?Colonoscopy Indications: ?High risk [...] and ?oxygen saturations were monitored continuously. The ?CF-[id number] was introduced through the anus and ?advanced [...] These ? polyps were removed with a WISErg cold forceps. Resection and retrieval ? were [...] Procedure Code(s): ? --- Professional --- ? 85338, Colonoscopy, flexible; with removal of tumor(s), polyp(s), or ? other lesion(s) by snare technique Diagnosis Code(s): ?--- Professional --- ?Z86.010, Personal history of colonic polyps ?K64.8, Other hemorrhoids ?K62.1, Rectal polyp ?K63.5, Polyp of colon ?K57.30, Diverticulosis of large intestine without ?perforation or abscess without bleeding CPT copyright 2019 [employer]. All rights reserved. The codes documented in this report are preliminary and upon family support worker review may be revised to meet current compliance requirements. _ Sterling Davidson MD 12/31/2020 9:21:44 AM Note Initiated On: 12/31/2020 8:24 AM Number of Addenda: 0 ? [facility] ? [address] [employer] 12/31/2020 8:24 AM HEARING AID FITTER Sterling Davidson MD GI PROCEDURE ORDERAB LES [facility] * EGD (12/31/2020 7:45 AM HEARING AID FITTER) Report Endoscopy POC Endoscopy Department Report __ _ Patient Name: Moy Tobin ?Procedure Date: 12/31/2020 7:45 AM ? Date of : 1955 Classification: Outpatient ?Gender: Female Ethnicity: Not or ? Race: Black or __ _ Providers: ?Sterling Davidson MD Referring MD: ? Federico Branham Jr (Referring ) Procedure: ?Upper GI endoscopy Indications: ?Dysphagia Medications: ?Monitored Anesthesia Care Description of Procedure: [...] satisfactory condition to undergo the ?procedure. ?After obtaining informed consent, the endoscope was ?passed under direct vision. Throughout the ?procedure, the patient's blood pressure, pulse, and ?oxygen saturations were monitored continuously. The ?GIF-H190 was introduced through the mouth, and ?advanced to the second part of duodenum. The upper ?GI endoscopy was accomplished without difficulty. ?The patient tolerated the procedure well. ? Findings: ? A 4 cm hiatal hernia was present. ? A non-obstructing Schatzki ring was found at the gastroesophageal ? junction. A guidewire was placed and the scope was withdrawn. Dilation ? was performed with a Savary dilator with mild resistance at 57 Fr. ? Esophagogastric landmarks were identified: the Z-line was found at 35 ? cm, the gastroesophageal junction was found at 35 cm and the site of ? hiatal narrowing was found at 39 cm from the incisors. ? There is no endoscopic evidence of Bryson's esophagus or esophagitis in ? the distal esophagus. ? The entire examined stomach was normal. ? The examined duodenum was normal. ? The cardia and gastric fundus were normal on retroflexion. ? Estimated Blood Loss: ? Estimated blood loss: none. Complications: ?No immediate complications. Impression: ? - 4 cm hiatal hernia. ?- Non-obstructing Schatzki ring. Dilated. ?- Esophagogastric landmarks identified. ?- Normal stomach. ?- Normal examined duodenum. ?- No specimens collected. Recommendation: ? - Resume previous diet. ?- Continue present medications. ?- Observe response to dilatation ?- Return to referring physician as previously ?scheduled. ?- Resume [Medication] at prior dose tomorrow. ? Attending Participation: ??I was present and participated during the entire ?procedure, including non-mathew portions. ? Procedure Code(s): ? --- Professional --- ? 17215, Esophagogastroduode noscopy, flexible, transoral; with insertion ? of guide wire followed by passage of dilator(s) through esophagus over ? guide wire Diagnosis Code(s): ?--- Professional --- ?K44.9, Diaphragmatic hernia without obstruction or ?gangrene ?K22.2, Esophageal obstruction ?R13.10, Dysphagia, unspecified CPT copyright 2019 [employer]. All rights reserved. The codes documented in this report are preliminary and upon family support worker review may be revised to meet current compliance requirements. Sterling Davidson MD 12/31/2020 8:28:26 AM Note Initiated On: 12/31/2020 7:45 AM Number of Addenda: 0 ? [facility] ? [address] [place] [address] [facility] 12/31/2020 7:45 AM HEARING AID FITTER Sterling Davidson MD GI PROCEDURE ORDERAB LES [facility] [employer] * OPH OCT TEST [facility] (11/13/2020 11:00 AM CDT) Anatomical Region Laterality Modality Other 11/13/2020 11:0 0 AM CDT Dylan Gil MD OPHTHALMOLOGY SERVIC ES ORDERABLES * NM BONE SCAN WHOLE BODY (11/03/2020 11:44 AM CDT) Anatomical Region Laterality Modality Abdomen Nuclear Medicine 11/03/2020 3:03 PM CDT Impressions 11/03/2020 3:09 PM CDT 1. No scintigraphic evidence of calciphylaxis. 2. Degenerative changes as above. *Reading Radiologist: Ranulfo Pelaez on 11/03/2020 at 3:09 PM Narrative 11/03/2020 3:09 PM CDT Whole Body Bone Scan HISTORY: 65-year-old female with bilateral calf pain concerning for calciphylaxis. TECHNIQUE: The patient was injected with 24.2 mCi of [id number] MDP IV in the right hand. Anterior and posterior whole body images were obtained after 3 hours. COMPARISON: CT dated 06/19/2020 FINDINGS: ??Mild degenerative changes in the mid lumbar spine, shoulders, hips and ankles. There is no abnormal soft tissue activity within the lower extremities to suggest calciphylaxis. The biodistribution of radiopharmaceutical is normal. Procedure Note Ranulfo Pelaez DO - 11/03/2020 Whole Body Bone Scan HISTORY: 65-year-old female with bilateral calf pain concerning for calciphylaxis. TECHNIQUE: The patient was injected with 24.2 mCi of [id number] MDP IV in the right hand. Anterior and posterior whole body images were obtained after 3 hours. COMPARISON: CT dated 06/19/2020 FINDINGS: Mild degenerative changes in the mid lumbar spine, shoulders, hips and ankles. There is no abnormal soft tissue activity within the lower extremities to suggest calciphylaxis. The biodistribution of radiopharmaceutical is normal. IMPRESSION 1. No scintigraphic evidence of calciphylaxis. 2. Degenerative changes as above. *Reading Radiologist: Ranulfo Pealez on 11/03/2020 at 3:09 PM Jc Moreau MD NM ORDERABLES * XR KNEE RIGHT 3VW (11/02/2020 11:48 AM CDT) Anatomical Region Laterality Modality Lower Extremity Radiographic Evan ging 11/02/2020 11:5 3 AM CDT Impressions 11/02/2020 12:07 PM CDT Findings as noted. Edited by Suzi Rolle on 11/02/2020 12:03 PM *Reading Radiologist: Allan Miranda on 11/02/2020 at 12:07 PM Narrative 11/02/2020 12:07 PM CDT RIGHT KNEE HISTORY: Knee pain. Views of the knee show a well-maintained joint space. There is no fracture, lytic or blastic lesion. Spurring is present on the patella. Vascular calcifications are evident. Procedure Note Allan Miranda MD - 11/02/2020 RIGHT KNEE HISTORY: Knee pain. Views of the knee show a well-maintained joint space. There is no fracture, lytic or blastic lesion. Spurring is present on the patella. Vascular calcifications are evident. IMPRESSION Findings as noted. Edited by Suzi Rolle on 11/02/2020 12:03 PM *Reading Radiologist: Allan Miranda on 11/02/2020 at 12:07 PM Farooq Rocha MD DIAGNOSTIC IMAGING O RDERABLES * (ABNORMAL) C-REACTIVE PROTEIN (11/02/2020 5:57 AM CDT) Only the most recent of4 resultswithin the time period is included. C-Reactive Protein 0.61(H) <=0.50 mg/dL 11/02/2020 6:43 AM CDT [facility] Blood BLOOD SPECIMEN / Unknown Lab Venipuncture / Unknown 11/02/2020 5:57 AM CDT 11/02/2020 6:09 AM CDT Farooq Rocha MD LAB - CHEMISTRY ORDE RABLES Performing Organization Address City/[facility]/ZIP Co de Phone Number [facility] [address] [place] [phone] * (ABNORMAL) ERYTHROCYTE SEDIMENTATION RATE (11/02/2020 5:57 AM CDT) Only the most recent of4 resultswithin the time period is included. Erythrocyte Sedimentation Rate Automated 69(H) 0 - 30 MM/HR 11/02/2020 6:30 AM CDT [facility] Blood BLOOD SPECIMEN / Unknown Lab Venipuncture / Unknown 11/02/2020 5:57 AM CDT 11/02/2020 6:08 AM CDT Farooq Rocha MD LAB - HEMATOLOGY ORD ERABLES Performing Organization Address City/[facility] Co de Phone Number [facility] [address] [place] [phone] * (ABNORMAL) D-DIMER (11/01/2020 4:15 PM CDT) Only the most recent of2 resultswithin the time period is included. D-Dimer 1.43(H) 0.27 - 0.50 ug/mL FEU 11/01/2020 4:32 PM CDT [facility] Blood BLOOD SPECIMEN / Unknown Venipuncture / Unknown 11/01/2020 4:15 PM CDT 11/01/2020 4:18 PM CDT Narrative [facility] - 11/01/2020 4:32 PM CDT In the absence of clinical symptoms, a value less than or equal to 0.5 mcg/mL FEU significantly decreases the probability of PE/DVT (negative predictive value >95%). 1 mcg/ml FEU = 1 Fibrinogen Equivalent Unit (approximates 0.5 mcg/mL of D- dimer). Rahel Clifford MD LAB - COAGULATION ORDERABLES Performing Organization Address City/[facility]/ZIP Co de Phone Number [facility] [address] [place] [address] [phone] * CK BLOOD (11/01/2020 2:26 PM CDT) Pathologist [facility] CK 93 29 - 168 U/L 11/01/2020 9:08 PM CDT [facility] Blood BLOOD SPECIMEN / Unknown Venipuncture / Unknown 11/01/2020 2:26 PM CDT 11/01/2020 2:30 PM CDT Farooq Rocha MD LAB - CHEMISTRY RASHID INFANTE Performing Organization Address [facility] Co de Phone Number [facility] [address] [place] [phone] * (ABNORMAL) TROPONIN I (10/20/2020 3:16 PM CDT) Only the most recent of33 resultswithin the time period is included. Pathologist [facility] Troponin I 0.086(HH) <0.038 ng/mL 10/20/2020 3:43 PM CDT [facility] Blood BLOOD SPECIMEN / Unknown Venipuncture / Unknown 10/20/2020 3:16 PM CDT 10/20/2020 3:25 PM CDT Ioana Montes PA-C LAB - CHEMISTRY OR DERABLES Performing Organization Address City/[facility]/ZIP Co de Phone Number [facility] [address] [place] [address] [phone] * TSH REFLEX FREE T4 (10/20/2020 1:31 PM CDT) Pathologist [facility] TSH 3.588 0.350 - 4.940 uIU/mL 10/20/2020 2:16 PM CDT [facility] Blood BLOOD SPECIMEN / Unknown Venipuncture / Unknown 10/20/2020 1:31 PM CDT 10/20/2020 1:40 PM CDT Ioana Montes PA-C LAB - CHEMISTRY OR DERABLES [facility] [address] [place] [address] * OPH CORNEAL TOPOGRAPHY TEST [facility] (09/02/2020 1:34 PM CDT) Anatomical Region Laterality Modality Other 09/02/2020 1:34 PM CDT Dylan Gil MD OPHTHALMOLOGY SERVIC ES ORDERABLES * OPH IOL TEST [facility] (09/02/2020 1:27 PM CDT) Anatomical Region Laterality Modality Other 09/02/2020 1:27 PM CDT Dylan Gil MD OPHTHALMOLOGY SERVIC ES ORDERABLES * OPH EYE ULTRASOUND [facility] (09/02/2020 12:00 AM CDT) Anatomical Region Laterality Modality Other 09/02/2020 Dylan Gil MD OPHTHALMOLOGY SERVIC ES ORDERABLES * VAS LENY VENOUS DOPPLER LOWER EXT (09/01/2020) Anatomical Region Laterality Modality Other Scanned Document VASCULAR LAB ORDERAB LES * LAB RESULTS ORDER (08/31/2020) Only the most recent of6 resultswithin the time period is included. Scanned Document LAB - THERAPEUTIC DR UG MONITORING ORDERABLES * CARDIAC RHYTHM STRIP ORDER (07/06/2020 12:21 PM CDT) Only the most recent of9 resultswithin the time period is included. Narrative 07/06/2020 12:21 PM CDT Ordered by an unspecified provider. Scanned Document CARDIAC SERVICES ORD ERABLES * CULTURE MRSA (06/22/2020 4:47 PM CDT) Only the most recent of11 resultswithin the time period is included. Culture Negative for methicillin-resist ant Staphylococcus aureus (MRSA) MIGNON 06/24/2020 5:58 AM CDT [facility] Microbiology SPECIMEN FROM NASAL FOSSAE / Unknown Collection / Unknown 06/22/2020 4:47 PM CDT 06/22/2020 5:06 PM CDT Ronnie Rodriguez MD LAB - MICROBIOLOGY O RDERABLES [facility] [address] [place] [address], [facility] [phone] * MYOSITIS ANTIBODY PANEL COMPREHENSIVE (06/22/2020 8:01 AM CDT) Pathologist [facility] SAE1 (SUMO activating enzyme) Ab Negative Negative 07/09/2020 2:[address] [facility] ([facility]) NXP2 (Nuclear matrix protein-2) Ab Negative Negative 07/09/2020 2:05 PM CDT [facility] ([facility]) MDA5 (CADM-140) Ab Negative Negative 2020 2:[address] [facility] ([facility]) TIF-1 gamma (155 kDa) Ab Negative Negative 07/09/2020 2:05 PM CDT [facility] ([facility]) Myositis Panel Interpretive Data See Note 07/09/2020 2:[address] [facility] ([facility]) Comment: INTERPRETIVE INFORMATION: Extended Myositis Panel If present, myositis-specific antibodies (MSA) are specific for myositis, and may be useful in establishing diagnosis as well as prognosis. MSAs are generally regarded as mutually exclusive with rare exceptions; the occurrence of two or more MSAs should be carefully evaluated in the context of patient's clinical presentation. Myositis-associated antibodies (MAA) may be found in patients with CTD including overlap syndromes, and are generally not specific for myositis. The following table will help in identifying the association of any antibodies found as either MSAs or Jordan. Antibody Specificity . . . . . . . . . . . . MSA . . . . MAA SSA 52 (Ro) (EMILY) Antibody IgG . . . . . . . . . . . . . ??X SSA 60 (Ro) (EMILY) Antibody IgG . . . . . . . . . . . . . ??X Olivia/DATA DESIGNER (EMILY) Ab, IgG ??. . . . . . . . . . . . . . . . ??X Kari-1 (histidyl-tRNA synthetase) Ab, IgG ??. . ??X PL-12 (alanyl-tRNA synthetase) Antibody ??. . ??X PL-7 (threonyl-tRNA synthetase) Antibody . . ??X EJ (glycyl-tRNA synthetase) Antibody . . . . ??X OJ (isoleucyl-tRNA synthetase) Antibody ??. . ??X SRP (Signal Recognition Particle) Ab . . . . ??X Ku Antibody ??. . . . . . . . . . . . . . . . . . . . . . ??X PM/SCL 100 Antibody, IgG . . . . . . . . . . . . . . . . ??X Fibrillarin (U3 DATA DESIGNER) Ab, IgG . . . . . . . . . . . . . . ??X Mi-2 (nuclear helicase protein) Antibody . . ??X P155/140 Antibody ??. . . . . . . . . . . . . ??X TIF-1 gamma (155 kDa) Ab . . . . . . . . . . ??X SAE1 (SUMO activating enzyme) Ab . . . . . . ??X MDA5 (CADM-140) Ab ?? . . . . . . . . . . . . ??X NXP2 (Nuclear matrix proten-2)Ab . . . . . . ??X This test was developed and its performance characteristics determined by [facility]. It has not been cleared or approved by the US Food and Drug Administration. This test was performed in a CLIA certified laboratory and is intended for clinical purposes. Mi-2 Antibody Negative Negative 07/09/2020 2:[address] [facility] [employer] ([facility]) P155/140 Antibody Negative Negative 021 2:05 PM CDT [facility]) PL-12 Antibody Negative Negative 07/09/2020 2:05 PM CDT [facility]) PL-7 Antibody Negative Negative 07/09/2020 2:05 PM CDT [facility] ([facility]) OJ Antibody Negative Negative 07/09/2020 2:05 PM CDT [facility] ([facility]) EJ Antibody Negative Negative 07/09/2020 2:05 PM CDT [facility] ([facility]) SRP Antibody Negative Negative 07/09/2020 2:05 PM CDT [facility] ([facility]) Kari-1 Antibody IgG 0 0 - 40 AU/mL 07/09/2020 2:05 PM CDT [facility] ([facility]) Comment: INTERPRETIVE INFORMATION: ??Kari-1 Antibody, IgG ??29 AU/mL or less.........Negative ??30-40 AU/mL..............Equivocal ??41 AU/mL or greater......Positive Presence of Kari-1 (antihistidyl transfer RNA [t-RNA] synthetase) antibody is associated with polymyositis and may also be seen in patients with dermatomyositis. Kari-1 antibody is associated with pulmonary involvement (interstitial lung disease), Raynaud phenomenon, arthritis, and mechanical assembly technician's hands (implicated in antisynthetase syndrome). KU Antibody Negative Negative 07/09/2020 2:05 PM CDT [facility] ([facility]) Olivia/DATA DESIGNER (EMILY) Antibody IgG See Note 07/09/2020 2:05 PM CDT [facility] ([facility]) Comment: EFFECTIVE 03/26/2020 TEST/REFERENCE INTERVAL CHANGE Olivia/DATA DESIGNER (EMILY) Antibody, Ig Units Due to reagent kit performance, an alternate kit has been validated and implemented by [facility]. ??This semi-quantitative enzyme-linked immunosorbent assay (ANGELICA) detects IgG antibody to the Sm/DATA DESIGNER complex. The following Reference Interval applies to this result: 19 Units or less ?Negative 20 to 39 Units ?Weak Positive 40 to 80 Units ?Moderate Positive 81 Units or greater ? Strong Positive Olivia/DATA DESIGNER antibodies are frequently seen in patients with mixed connective tissue disease (MCTD) and are also associated with other systemic autoimmune rheumatic diseases (SARDs) such as systemic lupus erythematosus (SLE), systemic sclerosis, and myositis. Antibodies targeting the Olivia/DATA DESIGNER antigenic complex also recognize Olivia antigens, therefore, the Olivia antibody response must be considered when interpreting these results. PM/Scl 100 Antibody IgG Negative Negative 07/09/2020 2:05 PM CDT [facility] ([facility]) Comment: INTERPRETIVE INFORMATION: PM/Scl-100 Antibody, IgG by ?Immunoblot The presence of PM/Scl-100 IgG antibody along with a positive LISA IFA nucleolar pattern is associated with connective tissue diseases such as polymyositis (PM), dermatomyositis (DM), systemic sclerosis (SSc), and polymyositis/systemic sclerosis overlap syndrome. The clinical relevance of PM/Scl-100 IgG antibody with a negative LISA IFA nucleolar pattern is unknown. PM/Scl-100 is the main target epitope of the PM/Scl complex, although antibodies to other targets not detected by this assay may occur. This test was developed and its performance characteristics determined by [facility]. It has not been cleared or approved by the US Food and Drug Administration. This test was performed in a CLIA certified laboratory and is intended for clinical purposes. SS-A 52 Antibody 1 0 - 40 AU/mL 07/09/2020 2:[facility]) Comment: INTERPRETIVE INFORMATION: SSA-52 (Ro52) (EMILY) Antibody, IgG ??29 AU/mL or Less ............. Negative ??30 - 40 AU/mL ................ Equivocal ??41 AU/mL or Greater .......... Positive SSA-52 (Ro52) and/or SSA-60 (Ro60) antibodies are associated with a diagnosis of Sjogren syndrome, systemic lupus erythematosus (SLE), and systemic sclerosis. SSA-52 antibody overlaps significantly with the major SSc-related antibodies. SSA-52 (Ro52) antibody occurs frequently in patients with inflammatory myopathies, often in the presence of interstitial lung disease. SS-A 60 Antibody 0 0 - 40 AU/mL 07/09/2020 2:05 PM T [facility] ([facility]) Comment: REFERENCE INTERVAL: SSA-60 (Ro60) (EMILY) Antibody, IgG ??29 AU/mL or Less ............. Negative ??30 - 40 AU/mL ................ Equivocal ??41 AU/mL or Greater .......... Positive Fibrillarin (U3 DATA DESIGNER) Antibody IgG Negative Negative 07/09/2020 2:05 PM CDT [facility] ([facility]) Comment: Interpretive Information: Fibrillarin (U3 DATA DESIGNER) Antibody, IgG The presence of fibrillarin (U3-DATA DESIGNER) IgG antibodies in association with an LISA IFA nucleolar pattern is suggestive of systemic sclerosis (SSc). In SSc, these antibodies are associated with distinct clinical features, such as younger age at disease onset, frequent internal organ involvement (pulmonary hypertension, myositis and renal disease). Fibrillarin antibodies are detected more frequently in patients with SSc compared to other ethnic groups. Strong correlation with LISA IFA results is recommended. In a multi-ethnic cohort of SSc patients (n=98), U3-DATA DESIGNER antibodies detected by immunoblot had an agreement of 98.9 percent with the gold standard immunoprecipitation (IP) assay. Approximately 71 percent (5/7) of the borderline U3-DATA DESIGNER results with LISA nucleolar pattern in this cohort were IP negative. This test was developed and its performance characteristics determined by [facility]. It has not been cleared or approved by the US Food and Drug Administration. This test was performed in a CLIA certified laboratory and is intended for clinical purposes. Performed by [facility], [address] [place] [address] [email or web address], Bridgette Hidalgo MD, Lab. Director Blood BLOOD SPECIMEN / Unknown Venipuncture / Unknown 06/22/2020 8:01 AM CDT 06/22/2020 10:10 AM CDT Austin Craven MD LAB - CHEMISTRY RASHID INFANTE [email or web address] [facility]) [address] * CYCLIC CITRUL PEPTIDE ANTIBODY IGG/IGA (CCP) (06/22/2020 6:44 AM CDT) Pathologist [facility] CCP Antibodies IgG/IgA 9 0 - 19 units 06/24/2020 12:06 AM CDT [facility] ([facility]) Comment: ?Negative ? <20 ?Weak positive ?20 - 39 ?Moderate positive ??40 - 59 ?Strong positive ?>59 Blood BLOOD SPECIMEN / Unknown Venipuncture / Unknown 06/22/2020 6:44 AM CDT 06/22/2020 6:47 AM CDT Narrative [facility] ([facility]) - 06/24/2020 12:06 AM CDT Performed at: ??01 - [facility] [address] ??[id number] Professor Of German: Randall Stephen MD, Phone: ??[phone] Austin Craven MD LAB - SEROLOGY ORDER WYATT Performing Organization Address City/State/[facility] Co de Phone Number [facility] ([facility]) [address] [place] [address] * EMLIY ANTIBODY PANEL (06/22/2020 6:44 AM CDT) Pathologist [facility] DATA DESIGNER Antibody <0.2 0.0 - 0.9 AI 06/23/2020 2:09 PM CDT [facility] ([facility]) Olivia (EMILY) Antibody <0.2 0.0 - 0.9 AI 06/23/2020 2:09 PM CDT [facility] ([facility]) Sjogren's Antibodies (SSA) <0.2 0.0 - 0.9 AI 06/23/2020 2:09 PM CDT [facility] ([facility]) Sjogren's Antibodies (SSB) <0.2 0.0 - 0.9 AI 06/23/2020 2:09 PM CDT [facility] ([facility]) Blood BLOOD SPECIMEN / Unknown Venipuncture / Unknown 06/22/2020 6:44 AM CDT 06/22/2020 6:47 AM CDT Narrative [facility] ([facility]) - 06/23/2020 2:09 PM CDT Performed at: ??01 - [facility] [address] ??[id number] Professor Of German: El Fan PhD, Phone: ??[phone] Austin Craven MD LAB - CHEMISTRY RASHID INFANTE [facility] ([facility]) [address] [place] [address] * (ABNORMAL) BLOOD GASES ARTERIAL (06/21/2020 5:39 PM CDT) Only the most recent of2 resultswithin the time period is included. pH Arterial 7.41 7.35 - 7.45 pH 06/21/2020 6:10 PM CDT [facility] pCO2 Arterial 44 35 - 45 mm hg 06/21/2020 6:10 PM CDT [facility] pO2 Arterial 29(LL) 80 - 100 mm hg 06/21/2020 6:10 PM CDT [facility] HCO3 Arterial 28(H) 22 - 26 mmol/L 06/21/2020 6:10 PM CDT [facility] Comment:H BE Arterial 2.6(H) -2.0 - 2.0 mmol/L 06/21/2020 6:10 PM CDT [facility] O2 Saturation Arterial 54(LL) 90 - 100 % 06/21/2020 6:10 PM CDT [facility] Hemoglobin Arterial 9.2(L) 12.0 - 15.6 gm/dL 06/21/2020 6:10 PM CDT [facility] Carboxyhemoglobin Arterial 0.3 0.0 - 2.5 % 06/21/2020 6:10 PM CDT [facility] Methemoglobin Arterial 0.4 0.0 - 2.0 % 06/21/2020 6:10 PM CDT [facility] Oxyhemoglobin Arterial 53 % 06/21/2020 6:10 PM CDT [facility] Mode Bipap 06/21/2020 6:10 PM CDT [facility] Justino's Test Positive 06/21/2020 6:10 PM CDT [facility] FI O2 70 % 06/21/2020 6:10 PM CDT [facility] Tidal Volume 350 mL 06/21/2020 6:10 PM CDT [facility] Sample Site R Radial 06/21/2020 6:10 PM CDT [facility] Sample Type Venous 06/21/2020 6:10 PM CDT [facility] THER[facility] Photovoltaic Technician ID [id number] 06/21/2020 6:10 PM CDT [facility] Notified radha Quintana RN 06/21/2020 6:10 PM CDT [facility] Notification Time 06/21/2020 18:09 06/21/2020 6:10 PM CDT [facility] Notified By Barbara JOSEPH SCREW SUPERVISOR 06/21/2020 6:10 PM CDT [facility] Blood, arterial ARTERIAL BLOOD SPECIMEN / Unknown 06/21/2020 5:39 PM CDT 06/21/2020 5:39 PM CDT Narrative [facility] - 06/21/2020 6:10 PM CDT PATIENT WAS ON AVAPS MODE ON BIPAP BACK UP RATE 4 , VT 350, 70% , PRESSURE HIGH 25, PRESSURE LOW 15 Beatrice Bella MD LAB - BLOO D GASES ORDERABLES [facility] [address] [place] [address] * (ABNORMAL) HGB HCT PANEL (06/21/2020 1:37 PM CDT) Only the most recent of2 resultswithin the time period is included. Hemoglobin 8.3(L) 12.0 - 15.6 gm/dL 06/21/2020 1:50 PM CDT [facility] Hematocrit 26.9(L) 35.9 - 45.5 % 06/21/2020 1:50 PM CDT [facility] Blood BLOOD SPECIMEN / Unknown Venipuncture / Unknown 06/21/2020 1:37 PM CDT 06/21/2020 1:40 PM CDT Beatrice Bella MD LAB - GAIL TOLOGY ORDERABLES Performing Organization Address City/[facility] Co de Phone Number [facility] [address] [place] [address] * CULTURE SPUTUM+GRAM STAIN (06/20/2020 6:45 AM CDT) Only the most recent of2 resultswithin the time period is included. Pathologist [facility] Culture Heavy normal oropharyngeal javan MIGNON 06/22/2020 10:19 AM CDT [facility] Gram Stain <10 per low power field Squamous epithelial cells 06/22/2020 10:19 AM CDT [facility] Gram Stain Moderate Polymorphonuclear cells 06/22/2020 10:19 AM CDT [facility] Gram Stain Heavy Gram-negative diplococci 06/22/2020 10:19 AM CDT [facility] Gram Stain Light Yeast 06/22/2020 10:19 AM CDT [facility] Microbiology SPUTUM / Unknown Collection / Unknown 06/20/2020 6:45 AM CDT 06/20/2020 6:49 AM CDT Beatrice Bella MD LAB - MICR OBIOLOGY ORDERABLES Performing Organization Address City/[facility]/ZIP Co de Phone Number [facility] [address] [place] [address], [facility] [phone] * RESPIRATORY PANEL WITH SARS-COV-2 BY PCR (STL) (06/19/2020 7:00 PM CDT) Only the most recent of2 resultswithin the time period is included. Adenovirus PCR Not detected Not detected 06/20/2020 12:21 AM CDT [facility] Coronavirus 229E PCR Not detected Not detected 06/20/2020 12:21 AM CDT [facility] Coronavirus HKU1 PCR Not detected Not detected 06/20/2020 12:21 AM CDT [facility] Coronavirus NL63 PCR Not detected Not detected 06/20/2020 12:21 AM CDT [facility] Coronavirus OC43 PCR Not detected Not detected 06/20/2020 12:21 AM CDT [facility] COVID-19 PCR Not detected Not detected 06/20/2020 12:21 AM CDT [facility] Human Metapneumovirus PCR Not detected Not detected 06/20/2020 12:21 AM CDT [facility] Human Rhinovirus/Enterov irus PCR Not detected Not detected 06/20/2020 12:21 AM CDT [facility] Influenza A PCR Not detected Not detected 06/20/2020 12:21 AM CDT [facility] Influenza B PCR Not detected Not detected 06/20/2020 12:21 AM CDT [facility] Parainfluenza Virus 1 PCR Not detected Not detected 06/20/2020 12:21 AM CDT [facility] Parainfluenza Virus 2 PCR Not detected Not detected 06/20/2020 12:21 AM CDT [facility] Parainfluenza Virus 3 PCR Not detected Not detected 06/20/2020 12:21 AM CDT [facility] Parainfluenza Virus 4 PCR Not detected Not detected 06/20/2020 12:21 AM CDT [facility] Respiratory Syncytial Virus PCR Not detected Not detected 06/20/2020 12:21 AM CDT [facility] Bordetella parapertussis PCR Not detected Not detected 06/20/2020 12:21 AM CDT [facility] Bordetella pertussis PCR Not detected Not detected 06/20/2020 12:21 AM CDT [facility] Chlamydia pneumoniae PCR Not detected Not detected 06/20/2020 12:21 AM CDT [facility] Mycoplasma pneumoniae PCR Not detected Not detected 06/20/2020 12:21 AM CDT [facility] Microbiology SPECIMEN FROM NASOPHARYNGEAL STRUCTURE / Unknown Collection / Unknown 06/19/2020 7:00 PM CDT 06/19/2020 7:15 PM CDT [facility] - 06/20/2020 12:21 AM CDT This nucleic acid amplification assay performance was validated by [facility]. This test has been authorized by the Food and Drug administration (FDA)under an Emergency??Use Authorization (EUA). This test has been validated in accordance with the FDA's guidance document Policy for Diagnostic Testing in Laboratories Certified to perform High Complexity Testing under CLIA prior to Emergency Use Authorization for Coronavirus Disease-2019 during the Public Health Emergency issued on April 20, 2019. FDA independent review of this validation is pending. This test is only authorized for the [...] this EUA assay are available upon request. Beatrice Bella MD LAB - MICR OBIOLOGY ORDERABLES [facility] [address] [place] [address], [facility] [phone] * CT ANGIO CHEST PULM EMBOLISM (06/19/2020 2:48 PM CDT) Only the most recent of2 resultswithin the time period is included. Anatomical Region Laterality Modality Chest Computed Tomogra phy 06/19/2020 2:50 PM CDT Impressions 06/19/2020 2:54 PM CDT No evidence for pulmonary embolism. Diffuse pulmonary infiltrates are slightly improved compared to the recent exam. Cardiomegaly, stable. *Reading Radiologist: Hector Peres on 06/19/2020 at 2:54 PM Narrative 06/19/2020 2:[address] Chest Angiography with IV contrast INDICATION: Left-sided chest pain during dialysis. TECHNIQUE: Thin section helical images were obtained from the lung apices through the lung bases after bolus administration of IV contrast. Sagittal and coronal reconstructions were performed. MIP reformats were created. Post processed 3-D images were created. Contrast: ??80 cc of Isovue-370 was utilized. FINDINGS: There are degenerative changes of the spine. There are diffuse pulmonary infiltrates throughout the lungs. These appear improved compared to the examination from 06/07/2020. ?? There is no pleural effusion. ?? There is no pneumothorax. ?? There are no suspicious pulmonary nodules. ?? The central airways are normal in caliber. There are postop changes about the thyroid gland. ?? There is no axillary adenopathy. Stable small mediastinal lymph nodes are present. There is no hilar adenopathy. Interrogation of the pulmonary arteries in multiple planes shows no evidence for pulmonary embolism. ?? The aorta is normal in caliber with no evidence for aneurysm or dissection. There is cardiomegaly. Hepatic cysts are again noted. Procedure Note Hector Peres MD - 06/19/2020 CT Chest Angiography with IV contrast INDICATION: Left-sided chest pain during dialysis. TECHNIQUE: Thin section helical images were obtained from the lung apices through the lung bases after bolus administration of IV contrast. Sagittal and coronal reconstructions were performed. MIP reformats were created. Post processed 3-D images were created. Contrast: 80 cc of Isovue-370 was utilized. FINDINGS: There are degenerative changes of the spine. There are diffuse pulmonary infiltrates throughout the lungs. These appear improved compared to the examination from 06/07/2020. There is no pleural effusion. There is no pneumothorax. There are no suspicious pulmonary nodules. The central airways are normal in caliber. There are postop changes about the thyroid gland. There is no axillary adenopathy. Stable small mediastinal lymph nodes are present. There is no hilar adenopathy. Interrogation of the pulmonary arteries in multiple planes shows no evidence for pulmonary embolism. The aorta is normal in caliber with no evidence for aneurysm or dissection. There is cardiomegaly. Hepatic cysts are again noted. IMPRESSION No evidence for pulmonary embolism. Diffuse pulmonary infiltrates are slightly improved compared to the recent exam. Cardiomegaly, stable. *Reading Radiologist: Hector Peres on 06/19/2020 at 2:54 PM Jorgito Tang MD CT ORDERABLES * (ABNORMAL) IRON + TRANSFERRIN PANEL (06/14/2020 4:51 AM CDT) Only the most recent of2 resultswithin the time period is included. Iron 80 50 - 170 ug/dL 06/14/2020 5:48 AM CDT [facility] Comment:Attention clinician: Reference Range change. Transferrin 158(L) 173 - 360 mg/dL 06/14/2020 5:48 AM CDT [facility] Comment:Attention clinician: Reference Range change. TIBC Calculated 198(L) 240 - 450 ug/dL 06/14/2020 5:48 AM CDT [facility] Iron Saturation % 41 20 - 50 % 06/14/2020 5:48 AM CDT [facility] Blood BLOOD SPECIMEN / Unknown Lab Venipuncture / Unknown 06/14/2020 4:51 AM CDT 06/14/2020 5:19 AM CDT Jc Moreau MD LAB - CHEMISTRY ORDE RABLISA Performing Organization Address [facility] Co de Phone Number [facility] [address] [place] [id number] * RETIC COUNT (06/14/2020 4:50 AM CDT) Pathologist [facility] Reticulocyte Count 1.28 0.5 - 1.7 % 06/14/2020 5:34 AM CDT [facility] Reticulocyte Absolute 0.0389 0.0041 - 0.0971 x10E6/uL 06/14/2020 5:34 AM CDT [facility] Reticulocyte Immature Fractionated 13.6 0.9 - 14.3 % 06/14/2020 5:34 AM CDT [facility] Hemoglobin Retic 34.3 27.8 - 36.8 pg 06/14/2020 5:34 AM CDT [facility] Blood BLOOD SPECIMEN / Unknown Lab Venipuncture / Unknown 06/14/2020 4:50 AM CDT 06/14/2020 5:20 AM CDT Jc Moreau MD LAB - HEMATOLOGY ORD ERABLES Performing Organization Address [facility]/ZIP Co de Phone Number [facility] [address] [place] [phone] * (ABNORMAL) ANCA VASCULITIS PANEL (06/13/2020 5:28 AM CDT) Anti-myeloperoxid ase (MPO) Antibody <9.0 0.0 - 9.0 U/mL 06/17/2020 8:15 AM CDT [facility] ([facility]) Anti-proteinase 3 (DE-3) Abs <3.5 0.0 - 3.5 U/mL 06/17/2020 8:15 AM CDT [facility] ([facility]) Cytoplasmic (C-ANCA) <1:20 Neg:<1:20 titer 06/17/2020 8:15 AM CDT [facility] ([facility]) p-ANCA Titer <1:20 Neg:<1:20 titer 06/17/2020 8:15 AM CDT [facility] ([facility]) Comment: The presence of positive fluorescence exhibiting P-ANCA or C-ANCA patterns alone is not specific for the diagnosis of Trevon's Granulomatosis (WG) or microscopic polyangiitis. Decisions about treatment should not be based solely on ANCA IFA results. ??The International ANCA [employer] Consensus recommends follow up testing of positive sera with both DE-3 and MPO-ANCA enzyme immunoassays. As many as 5% serum samples are positive only by EIA. Ref. AM J Clin Pathol 1999;111:507-513. Atypical p-ANCA Titer 1:160(H) Neg:<1:20 titer 06/17/2020 8:15 AM CDT [facility] ([facility]) Comment: The atypical pANCA pattern has been observed in a significant percentage of patients with ulcerative colitis, primary sclerosing cholangitis and autoimmune hepatitis. Blood BLOOD SPECIMEN / Unknown Lab Venipuncture / Unknown 06/13/2020 5:28 AM CDT 06/13/2020 6:01 AM CDT [facility] ([facility]) - 06/17/2020 8:15 AM CDT Performed at: ??01 - [address] ??[id number] Professor Of German: Randall Stephen MD, Phone: ??[phone] Performed at: ??02 - [address] ??[id number] Professor Of German: El Fan PhD, Phone: ??[phone] Jc Moreau MD LAB - CHEMISTRY RASHID INFANTE Performing Organization Address [facility] Co de Phone Number [facility] ([facility]) [address] [place] [address] * LISA BLOOD SCREEN W/REFLEX TITER (06/13/2020 5:28 AM CDT) Only the most recent of2 resultswithin the time period is included. Pathologist [facility] LISA Negative Negative 06/15/2020 12:18 PM CDT [facility] Blood BLOOD SPECIMEN / Unknown Lab Venipuncture / Unknown 06/13/2020 5:28 AM CDT 06/13/2020 6:01 AM CDT Narrative [facility] - 06/15/2020 12:18 PM CDT Methodology: Indirect Immunofluorescence Assay (IFA) utilizing Hep-2-Gamma cells. Jc Moreau MD LAB - CHEMISTRY RASHID INFANTE Performing Organization Address [facility] de Phone Number [facility] [address] [phone] * GLOMERULAR BASE MEMBRANE ANTIBODY IGG (06/13/2020 5:28 AM CDT) [facility] Glomerular Basement Membrane Antibody Quantitative 4 0 - 20 units 06/17/2020 11:09 AM CDT [facility] ([facility]) Comment: ? Negative ? 0 - 20 ? Weak Positive ? 21 - 30 ? Moderate to Strong Positive ?? >30 Blood BLOOD SPECIMEN / Unknown Lab Venipuncture / Unknown 06/13/2020 5:28 AM CDT 06/13/2020 6:01 AM CDT Narrative [facility] ([facility]) - 06/17/2020 11:09 AM CDT Performed at: ??01 - [facility] [address] ??[id number] Professor Of German: Randall Stephen MD, Phone: ??[phone] Jc Moreau MD LAB - CHEMISTRY RASHID INFANTE [facility] ([facility]) [address] [place] [address] * COMPLEMENT TOTAL (06/13/2020 5:28 AM CDT) Pathologist [facility] Complement Total CH50 >60 >41 U/mL 06/15/2020 3:08 PM CDT [facility] ([facility]) Comment: ? Age ?Male ?Female ?1 - 30 days ? Not Estab. ? Not Estab. ?31 days - ??6 months ?>32 ?>20 ?? 7 months - 17 years ? >39 ?>39 ? >17 years ? >41 ?>41 NOTE: The adult ( >17 years ) reference interval ? range is used to flag abnormals on this ? report. If the patient is 17 years old or ? younger, use the table above to determine ? out of range values. Blood BLOOD SPECIMEN / Unknown Lab Venipuncture / Unknown 06/13/2020 5:28 AM CDT 06/13/2020 6:01 AM CDT Narrative [facility] ([facility]) - 06/15/2020 3:08 PM CDT Performed at: ??01 - [facility] [address] [place] [address] ??[id number] Professor Of German: El Fan PhD, Phone: ??[phone] Jc Moreau MD LAB - CHEMISTRY ORDE RABLES Performing Organization Address [facility] de Phone Number [facility] ([facility]) [address] [place] [address] * DNA ANTIBODY DOUBLE STRANDED (06/13/2020 5:28 AM CDT) [facility] Anti-dsDNA Quantitative <1 0 - 9 IU/mL 06/15/2020 4:09 PM CDT [facility] ([facility]) Comment: ? Negative ?<5 ? Equivocal ??5 - 9 ? Positive ?>9 Blood BLOOD SPECIMEN / Unknown Lab Venipuncture / Unknown 06/13/2020 5:28 AM CDT 06/13/2020 6:01 AM CDT [facility]ative [facility]) - 06/15/2020 4:09 PM CDT Performed at: ??01 - [facility] [address] ??[id number] Professor Of German: El Fan PhD, Phone: ??[phone] Jc Moreau MD LAB - HEMATOLOGY ORD ERABLES Performing Organization Address City/[facility]/ZIP Co de Phone Number [facility]) [address] [place] [address] * COMPLEMENT C4 (06/13/2020 5:28 AM CDT) [facility] Complement C4 15 15 - 57 mg/dL 06/13/2020 1:02 PM CDT [facility] Blood BLOOD SPECIMEN / Unknown Lab Venipuncture / Unknown 06/13/2020 5:28 AM CDT 06/13/2020 6:01 AM CDT Jc Moreau MD LAB - SEROLOGY ORDER WYATT Performing Organization Address [facility] Co de Phone Number [facility] [address] [place] [address] * COMPLEMENT C3 (06/13/2020 5:28 AM CDT) Complement C3 112 83 - 193 mg/dL 06/13/2020 1:02 PM CDT [facility] Blood BLOOD SPECIMEN / Unknown Lab Venipuncture / Unknown 06/13/2020 5:28 AM CDT 06/13/2020 6:01 AM CDT Jc Moreau MD LAB - CHEMISTRY ORDE RABLES Performing Organization Address [facility] de Phone Number [facility] [address] [place] [address] * MRI ABDOMEN WWO CONTRAST (06/11/2020 12:52 PM CDT) Anatomical Region Laterality Modality Abdomen Magnetic Resonan ce 06/11/2020 2:44 PM CDT Impressions 06/11/2020 3:15 PM CDT Small simple cysts in the right hepatic lobe. No abnormal enhancement or solid-appearing lesion identified. Motion artifact. Edited by Faith Carney on 06/11/2020 2:58 PM *Reading Radiologist: Allan Miranda on 06/11/2020 at 3:15 PM Narrative 06/11/2020 3:15 PM CDT MRI ABDOMEN WITH AND WITHOUT CONTRAST. HISTORY: Abnormal CT scan. Images are provided using T1 and T2-weighted sequences. Postcontrast enhanced images after 10 cc Eovist. The study shows two areas of abnormal signal in the right hepatic lobe, one superiorly near the diaphragm, another more inferior near the medial border of the right hepatic lobe. These have signal characteristics of simple cysts. I do not see a solid mass in the liver. Biliary tree is unremarkable. Incidentally noted are numerous cysts in bilateral small kidneys. The spleen and pancreas are unremarkable. Procedure Note Allan Miranda MD - 06/11/2020 MRI ABDOMEN WITH AND WITHOUT CONTRAST. HISTORY: Abnormal CT scan. Images are provided using T1 and T2-weighted sequences. Postcontrast enhanced images after 10 cc Eovist. The study shows two areas of abnormal signal in the right hepatic lobe, one superiorly near the diaphragm, another more inferior near the medial border of the right hepatic lobe. These have signal characteristics of simple cysts. I do not see a solid mass in the liver. Biliary tree is unremarkable. Incidentally noted are numerous cysts in bilateral small kidneys. The spleen and pancreas are unremarkable. IMPRESSION Small simple cysts in the right hepatic lobe. No abnormal enhancement or solid-appearing lesion identified. Motion artifact. Edited by Faith Carney on 06/11/2020 2:58 PM *Reading Radiologist: Allan Miranda on 06/11/2020 at 3:15 PM Lennox Ramsey MD MR ORDERABLES * ALPHA FETOPROTEIN BLOOD TUMOR MARKER (06/10/2020 5:59 AM CDT) Alpha-Fetoprotein Tumor Marker 2.4 0.0 - 8.3 ng/mL 06/11/2020 8:15 AM CDT [facility] ([facility]) Comment: [facility] Electrochemiluminescence Immunoassay (ECLIA) Values obtained with different assay methods or kits cannot be used interchangeably. ??Results cannot be interpreted as absolute evidence of the presence or absence of malignant disease. This test is not interpretable in females. Blood BLOOD SPECIMEN / Unknown Lab Venipuncture / Unknown 06/10/2020 5:59 AM CDT 06/10/2020 6:14 AM CDT [facility] ([facility]) - 06/11/2020 8:15 AM CDT Performed at: ??01 - [facility], [place], [place] ??[id number] Professor Of German: El Fan PhD, Phone: ??[phone] Leni Shen MD LAB - CHEMISTRY RASHID INFANTE Performing Organization Address [facility] Co de Phone Number [facility] ([facility]) [address] [place] [address] * (ABNORMAL) CEA BLOOD (06/10/2020 5:59 AM CDT) [facility] CEA 5.2(H) 0.0 - 4.7 ng/mL 06/11/2020 8:15 AM CDT [facility] ([facility]) Comment: ? Nonsmokers ?<3.9 ? Smokers ? <5.6 [facility] Electrochemiluminescence Immunoassay (ECLIA) Values obtained with different assay methods or kits cannot be used interchangeably. ??Results cannot be interpreted as absolute evidence of the presence or absence of malignant disease. Blood BLOOD SPECIMEN / Unknown Lab Venipuncture / Unknown 06/10/2020 5:59 AM CDT 06/10/2020 6:14 AM CDT Narrative [facility] ([facility]) - 06/11/2020 8:15 AM CDT Performed at: ??01 - [address] ??[id number] Professor Of German: El Fan PhD, Phone: ??[phone] Leni Shen MD LAB - CHEMISTRY RASHID INFANTE Performing Organization Address City/[facility]/ZIP Co de Phone Number [facility] ([facility]) [address] [place] [address] * CT CHEST WO CONTRAST (06/07/2020 8:39 AM CDT) Only the most recent of2 resultswithin the time period is included. Anatomical Region Laterality Modality Chest Computed Tomogra phy 06/07/2020 10:3 4 AM CDT Impressions 06/07/2020 10:40 AM CDT 1. Extensive opacities throughout the lungs concerning for widespread infection including viral pneumonia. Correlation for underlying heart failure is recommended as there is superimposed cardiomegaly. *Reading Radiologist: Kamaljit Man on 06/07/2020 at 10:40 AM Narrative 06/07/2020 10:40 AM CDT EXAMINATION: CT of the chest was performed without contrast. HISTORY: Dyspnea and shortness of breath. TECHNIQUE: Multislice, helical CT was performed without contrast. FINDINGS: Extensive groundglass opacities are seen throughout the lungs concerning for widespread infection including viral pneumonia. Many of these opacities or groundglass. The heart is enlarged. Correlation for underlying vascular congestion is recommended. No pneumothorax is seen. No mediastinal adenopathy is identified. Coronary artery calcifications are noted. Small hypoattenuating foci are seen in the liver. Prior gastric sleeve bone windows demonstrate no definite destructive lesions. Procedure Note Kamaljit Man MD - 06/07/2020 EXAMINATION: CT of the chest was performed without contrast. HISTORY: Dyspnea and shortness of breath. TECHNIQUE: Multislice, helical CT was performed without contrast. FINDINGS: Extensive groundglass opacities are seen throughout the lungs concerning for widespread infection including viral pneumonia. Many of these opacities or groundglass. The heart is enlarged. Correlation for underlying vascular congestion is recommended. No pneumothorax is seen. No mediastinal adenopathy is identified. Coronary artery calcifications are noted. Small hypoattenuating foci are seen in the liver. Prior gastric sleeve bone windows demonstrate no definite destructive lesions. IMPRESSION 1. Extensive opacities throughout the lungs concerning for widespread infection including viral pneumonia. Correlation for underlying heart failure is recommended as there is superimposed cardiomegaly. *Reading Radiologist: Kamaljit Man on 06/07/2020 at 10:40 AM Alejandro Li MD CT ORDERABLES * (ABNORMAL) HEPATITIS B SURFACE ANTIBODY QUANT (06/06/2020 2:31 PM CDT) Only the most recent of5 resultswithin the time period is included. Hepatitis B Virus Surface Antibody Quantitative 40.84(H) 0.00 - 7.99 mIU/ml 06/06/2020 3:28 PM CDT [facility] HBsAb REACTIVE( A) Non Reactive 06/06/2020 3:28 PM CDT [facility] Blood BLOOD SPECIMEN / Unknown Venipuncture / Unknown 06/06/2020 2:31 PM CDT 06/06/2020 2:43 PM CDT Narrative [facility] - 06/06/2020 3:28 PM CDT Individual is considered immune to HBV infection. Nickie Squires MD LAB - SEROLOGY ORD ERABLES [facility] [address] [place] [address] * SARS-COV-2 (COVID-19) IN HOUSE (06/06/2020 12:18 AM CDT) COVID-19 PCR Not detected Not detected 06/06/2020 8:54 AM CDT [facility] Microbiology SPECIMEN FROM NASOPHARYNGEAL STRUCTURE / Unknown Collection / Unknown 06/06/2020 12:18 AM CDT 06/06/2020 12:18 AM CDT Narrative [facility] - 06/06/2020 8:54 AM CDT This nucleic acid amplification assay performance was validated by [facility]. This test has been authorized by the Food and Drug administration (FDA)under an Emergency??Use Authorization (EUA). This test has been validated in accordance with the FDA's guidance document Policy for Diagnostic Testing in Laboratories Certified to perform High Complexity Testing under CLIA prior to Emergency Use Authorization for Coronavirus Disease-2019 during the Public Health Emergency issued on April 20, 2019. FDA independent review of this validation is pending. This test is only authorized for the [...] this EUA assay are available upon request. Alejandro Li MD LAB - MICROBIOLOGY O RDERABLES [facility] [address] [place] [address], [facility] [phone] * DE DRAIN/INJECT LARGE JOINT/BURSA (05/25/2020 10:03 AM CDT) Narrative Thais Barraza PA - 05/25/2020 10:03 AM CDT Thais Barraza PA ? 05/25/2020 10:03 AM Left Knee Injection: Patient placed in seated position with knee at 90 degrees. Skin cleansed with betadine and isopropyl alcohcol. Ethyl Chloride used to anesthetize skin. Joint accessed via anterolateral portal with 21g needle. Syringe aspirated with no bloody show. A combination of 3cc of 1% lidocaine and 1cc of 40mg/mL Kenalog infused into the joint. Needle removed and bandage placed. Patient tolerated the procedure well. Thais [facility] PROCEDURE/MINOR SURG ICAL ORDERABLES * XR KNEE LEFT 3VW (05/22/2020 1:33 PM CDT) Anatomical Region Laterality Modality Lower Extremity Radiographic Evan ging 05/22/2020 2:15 PM CDT Impressions 05/22/2020 2:16 PM CDT IMPRESSION: Mild medial compartment osteoarthritis. This report was electronically signed by MATTHEW ZHU MD ??on 05/22/2020 2:16 PM . Narrative 05/22/2020 2:16 PM CDT Exam: ??XR KNEE LEFT 3VW History: ??M25.562: Acute pain of left knee Comparison: None. Findings: No fracture or dislocation is present. There is mild medial compartment joint space narrowing with minimal osteophyte formation. The lateral compartment joint space is normal. No effusion is seen. A few soft tissue calcifications are likely vascular. Procedure Note Matthew Zhu MD - 05/22/2020 Exam: XR KNEE LEFT 3VW History: M25.562: Acute pain of left knee Comparison: None. Findings: No fracture or dislocation is present. There is mild medial compartment joint space narrowing with minimal osteophyte formation. The lateral compartment joint space is normal. No effusion is seen. A few softtissue calcifications are likely vascular. IMPRESSION: Mild medial compartment osteoarthritis. This report was electronically signed by MATTHEW ZHU MD on05/22/2020 2:16 PM . Thais [facility] O RDERABLES * (ABNORMAL) C-REACTIVE PROTEIN SENSITIVE (10/03/2019 11:05 AM CDT) C-Reactive Protein High Sensitivity 5.4(H) <=3.0 mg/L 10/05/2019 3:26 AM CDT [facility] ([facility]) Comment: INTERPRETIVE INFORMATION: ??CRP, High Sensitivity Patients with higher hs-CRP concentrations are more likely to develop stroke, myocardial infarction, and severe peripheral vascular disease. CRP is a nonspecific marker of inflammation and a variety of conditions other than atherosclerosis may cause elevated concentrations. If the first result is greater than 3.0 mg/L, recommend repeating test at least 2 weeks later in a metabolically stable state, free of infection or acute illness. The lower of the two results should be used to determine the patient's risk. Significantly decreased CRP values may result in specimens from patients treated with carboxypenicillins. hs-CRP results are used to assign risk as follows (Clin Chem 2009;55:378-84): ??less than 1.0 mg/L .... low risk ??1.0 - 3.0 mg/L ........ average risk ??3.1 - 9.9 mg/L ........ high risk ??greater than 9.9 mg/L . very high risk Performed By: [facility] [address] [place] [address] Service Coordinator Elderly Facility: Bal Botello MD, MS Blood BLOOD SPECIMEN / Unknown Lab Venipuncture / Unknown 10/03/2019 11:05 AM CDT 10/03/2019 11:41 AM CDT Ke Palacios MD LAB - CHEMISTRY RASHID INFANTE [employer] ([facility]) [address] * RHEUMATOID FACTOR BLOOD QUANTITATIVE (10/03/2019 11:05 AM CDT) Pathologist [facility] Rheumatoid Factor <15 <30 IU/mL 10/03/2019 1:04 PM CDT [facility] Blood BLOOD SPECIMEN / Unknown Lab Venipuncture / Unknown 10/03/2019 11:05 AM CDT 10/03/2019 11:41 AM CDT Ke Palacios MD LAB - CHEMISTRY RASHID INFANTE Performing Organization Address City/[facility]/ZIP Co de Phone Number [facility] [address] [address], [facility] [phone] * CULTURE VRE (02/27/2019 5:33 PM HEARING AID FITTER) Only the most recent of8 resultswithin the time period is included. [facility] Culture Negative for vancomycin-resi stant Enterococci (VRE) MIGNON 03/01/2019 7:23 AM HEARING AID FITTER [facility] MICROBIOLOGY Microbiology ENTIRE RECTUM / Unknown Collection / Unknown 02/27/2019 5:33 PM HEARING AID FITTER 02/27/2019 5:51 PM HEARING AID FITTER Ramon Cifuentes MD LAB - MICROBIOLOGY O RDERABLES [facility] MICROBIOLOGY [address] [place] [address], [facility] [phone] * STRESS TEST LEXISCAN (NUCLEAR) (02/26/2019 10:54 AM HEARING AID FITTER) Pathologist [facility] Stress Test Summary For full formatted report, please see the report link in the order. Acquisition Time: 2019-02-26 ??10:54:46 Total Exercise Time: 00:01:00 Test Indications: Chest Discomfort Medications: SEE EPIC Protocol: LEXISCAN ? Max HR: 103 BPM ??66% of ??Pred: 156 BPM Max BP: 092/058 mmHG Max Work Load: 1.0 METS Reason for Termination: protocol Resting ECG: abnormal see 12SL interpretation Functional Capacity: Could Not Be Adequately Assessed HR Response to Exercise: sub-optimal secondary to other BP Resoonse to Exercise: resting hypertension - blunted response Chest Pain: NONE Arrhythmias: atrial premature beats ST Changes: NONE Overall Impression: No ischemic changes noted in ECG with lexiscan. s Diagnosis: No ischemic changes noted in ECg with lexiscan. see pending nuclear test result IVCD at baseline Confirmed by DO Mcgraw Stephanie ([id number]) on 03/19/2019 8:52:50 AM Attending Physician: Jory Anders ANPErvinC Referred By: ? Overread By: Emerald Mcgraw DO [facility] STRESS 02/26/2019 10:5 4 AM HEARING AID FITTER 03/19/2019 8:52 AM HEARING AID FITTER Jory Freedman GAS SHOVEL OPERATOR-COMPUTER INFORMATION SYSTEMS PROFESSOR CARDIAC SERV ICES ORDERABLES Performing Organization Address City/[facility]/ZIP Co de Phone Number [facility] STRESS * (ABNORMAL) PT-INR (02/25/2019 6:42 AM HEARING AID FITTER) Only the most recent of28 resultswithin the time period is included. PT 14.9(H) 12.1 - 14.8 sec 02/25/2019 6:59 AM HEARING AID FITTER [facility] LABORATORY INR 1.2(H) 0.9 - 1.1 02/25/2019 6:59 AM HEARING AID FITTER [facility] Blood BLOOD SPECIMEN / Unknown Venipuncture / Unknown 02/25/2019 6:42 AM HEARING AID FITTER 02/25/2019 6:46 AM HEARING AID FITTER Narrative [facility] - 02/25/2019 6:59 AM HEARING AID FITTER Conventional Warfarin Anticoagulant Therapy: INR Reference Range: ??2.0-3.0 Intensive Warfarin Anticoagulant Therapy: INR Reference Range: ? 2.5-3.5 Cece Lin MD LAB - COAGULATION OR DERABLES [facility] [address] [place] [address] * VAS RIGHT VENOUS DUPLEX LE (01/21/2019 12:23 PM HEARING AID FITTER) Anatomical Region Laterality Modality Ultrasound 01/21/2019 12:0 1 PM HEARING AID FITTER Narrative Procedure Note Matthew Olivia MD - 01/21/2019 [place] [id number] Lower Extremity Venous Ultrasound Report Pat.Name: MOY TOBIN Pat.ID: [id number] .Date: 01/21/2019 Refer.MD: Shweta Beebe Exam Time: 12:01:00 PM Study Type:LE Venous Age: 6 1955,63Y Sex: FEMALE Sonogrphr: Yovanny Simeon RVT Pat. Stat.:Outpatient ICD - 9: M79.604 CPT - 4: 53634 Reason for Study: Right leg pain History / Clinical: Hypertension, Obesity, Atrial fibrillation, Congestive heart failure, COPD, History of DVT, Hyperlipidemia, ESRD on dialysis, Diabetes Procedures: Lower Extremity Venous - Right Race: 2 Visit ID: [id number] ++++++++++++++++++++++++++++++++++++ SUMMARY: ++++++++++++++++++++++++++++++++++++ No evidence of deep or superficial venous thrombosis of the right lower extremity is seen. ++++++++++++++++++++++++++++++++++++ FINDINGS: ++++++++++++++++++++++++++++++++++++ Procedure: Venous duplex imaging of the right lower extremity was performed using color flow and spectral Doppler analysis. The contralateral common femoral vein was also examined. Study Quality: Technically difficult exam due to body habitus and pain tolerance. Rt Leg: All vessels seen appear patent and compressible. There was spontaneous and phasic flow seen in all the major veins of the right lower extremity. Appropriate augmentation with distal compression. No evidence of reflux with proximal compression. Suboptimal visualization of calf veins due to body habitus but obtained good color flow. The left common femoral vein demonstrated phasic and spontaneous flow. Signed 01/21/2019 02:19 PM Matthew Olivia MD Shweta Beebe PA-C VASCULAR LAB ORDERAB LES * LIPASE BLOOD (01/21/2019 9:52 AM HEARING AID FITTER) Only the most recent of3 resultswithin the time period is included. Lipase 76 8 - 78 U/L 01/21/2019 10:30 AM HEARING AID FITTER [facility] Blood BLOOD SPECIMEN / Unknown Venipuncture / Unknown 01/21/2019 9:52 AM HEARING AID FITTER 01/21/2019 10:01 AM HEARING AID FITTER Shweta Beebe PA-C LAB - CHEMISTRY RASHID INFANTE [facility] [address] [place] [id number] * AMB REFERRAL TO CARDIOLOGY (01/03/2019 7:15 PM HEARING AID FITTER) Federico Branham Jr., MD OUTPAT IENT REFERRALS * AV HEMODIALYSIS ACCESS (11/29/2018 11:35 AM CDT) Anatomical Region Laterality Modality Upper Extremity X-Ray Angiograph y Narrative 11/29/2018 1:38 PM CDT Deion Riggs MD ? 11/29/2018 ??1:43 PM VASCULAR AND INTERVENTIONAL RADIOLOGY EXAMINATION: ??LEFT UPPER EXTREMITY ARTERIOVENOUS FISTULA DUPLEX Date: 11/29/2018 History: Moy Tobin is a 63 year old female with history of ESRD who is dialyzing through a left radial artery cephalic vein AV fistula. ??The patient was scheduled for blood flow volume study due to pain and a prior history of high output failure related to this fistula. ??Indication for the blood flow volume study is malfunction left radial artery cephalic vein AV fistula T82.590A. Technique: ??Limited grayscale, color, and spectral images of the left upper extremity vasculature were obtained for the purposes of endovascular arteriovenous fistula evaluation. Findings: ??Within the left forearm, the cephalic vein is 17.4 mm/2.6 mm within the midportion, and 13 5 mm/1.8 cm distally. ?? The antecubital basilic vein along the proximal forearm is 8.3 mm in diameter 7.9 mm from the surface. ??The cephalic vein in the upper arm is not present. The basilic vein in the left upper arm is widely patent. The radial artery to cephalic vein AV fistula has the banded segment that measures 4.8 mm in diameter. ??The AV anastomosis widely patent and confirmed with color Doppler. The brachial artery diameter within the mid upper arm is 8.4 mm. ?? Flow volume within the brachial artery is 1850 mL/min. IMPRESSION: Limited left upper extremity radiocephalic arteriovenous fistula evaluation, as described above. Brachial artery flow volume is 1850 mL/min. Deion Riggs M.D. Interventional Nephrology [facility] [phone] Dr. Jc Moreau MD [facility] Jc Moreau MD ORDERABLES * ENDOSCOPY, COLON, DIAGNOSTIC (10/09/2018 3:03 PM CDT) Report Endoscopy POC Endoscopy Department Report _ Patient Name: Moy Tobin ?Procedure Date: 10/09/2018 3:03 PM ? Date of : 1955 Classification: Outpatient ?Gender: Female Ethnicity: Not or ? Race: Black or _ Providers: ?Randa Jimenez MD, Carrol Irizarry (Fellow) Referring MD: ? Federico Gomezjose roberto Branham Jr (Referring MD) Procedure: ?Colonoscopy Indications: ?High risk colon cancer surveillance: Personal ?history of adenoma with villous component, High ?risk colon cancer surveillance: Personal history of ?multiple (3 or more) adenomas Medications: ?Monitored Anesthesia Care Comorbidities ? ESRD, Afib on eliquis, DM, hx DVT, obesity Patient Profile: ?63 year old F with high risk for colon cancer with ?personal hx of advanced polyps and 1st degree ?relative with colorectal CA < 60 years old Description of Procedure: Pre-Anesthesia Assessment: ?- Prior [...] days ?prior to procedure. ASA Grade Assessment: IV - A ?patient with severe systemic disease that is a ?constant threat to life. After reviewing the risks ?and benefits, the patient was deemed in ?satisfactory condition to undergo the procedure. ?After I obtained informed consent, the scope was ?passed under direct vision. Throughout the ?procedure, the patient's blood pressure, pulse, and ?oxygen saturations were monitored continuously. The ?PCF-[id number] was introduced through the anus and ?advanced to the cecum, identified by appendiceal ?orifice and ileocecal valve. The ileocecal valve, ?appendiceal orifice, and rectum were photographed. ?The quality of the bowel preparation was evaluated ?using the BBPS (Rosalia Bowel Preparation Scale) ?with scores of: Right Colon = 2 (minor amount of ?residual staining, small fragments of stool and/or ?opaque liquid, but mucosa seen well), Transverse ?Colon = 2 (minor amount of residual staining, small ?fragments of stool and/or opaque liquid, but mucosa ?seen well) and Left Colon = 2 (minor amount of ?residual staining, small fragments of stool and/or ?opaque liquid, but mucosa seen well). The total ?BBPS score equals 6. The colonoscopy was performed ?without difficulty. The patient tolerated the ?procedure well. ? Findings: ? Hemorrhoids were found on perianal exam. ? Three sessile polyps were found in the cecum. The polyps were 3 to 5 mm ? in size. These polyps were removed with a jumbo cold forceps. Resection ? and retrieval were complete. ? Three sessile polyps were found in the ascending colon. The polyps were ? 3 to 7 mm in size. Two of the polyps were removed with a cold biopsy ? forceps. One polyp was removed with cold snare. Resection and retrieval ? were complete. ? A 4 mm polyp was found in the transverse colon. The polyp was sessile. ? The polyp was removed with a cold biopsy forceps. Resection and ? retrieval were complete. ? Two sessile polyps and 1 flat polyp were found in the sigmoid colon. The ? polyps were 3 to 8 mm in size. These polyps were removed with a jumbo ? cold forceps. Resection and retrieval were complete. ? Two sessile polyps were found in the rectum. The polyps were 1 to 6 mm ? in size. These polyps were removed with a jumbo cold forceps. Resection ? and retrieval were complete. ? Right and left sided diverticulosis. ? Internal hemorrhoids were found during retroflexion. ? Estimated Blood Loss: ? Estimated blood loss was minimal. Complications: ?No immediate complications. Impression: ? - Hemorrhoids found on perianal exam. ?- Three 3 to 5 mm polyps in the cecum, removed with ?a jumbo cold forceps. Resected and retrieved. ?- Three 3 to 7 mm polyps in the ascending colon, ?removed with a cold biopsy forceps. Resected and ?retrieved. ?- One 4 mm polyp in the transverse colon, removed ?with a cold biopsy forceps. Resected and retrieved. ?- Three 3 to 8 mm polyps in the sigmoid colon, ?removed with a jumbo cold forceps. Resected and ?retrieved. ?- Two 1 to 6 mm polyps in the rectum, removed with ?a jumbo cold forceps. Resected and retrieved. ?- Right and left sided diverticulosis. ?- Internal hemorrhoids. ?12 total polyps Recommendation: ? - Patient has a contact number available for ?emergencies. The signs and symptoms of potential ?delayed complications were discussed with the ?patient. Return to normal activities tomorrow. ?Written discharge instructions were provided to the ?patient. ?- Resume previous diet. ?- Continue present medications. ?- Resume Eliquis (apixaban) at prior dose tomorrow. ?- Repeat colonoscopy date to be determined after ?pending pathology results are reviewed for ?surveillance. If 10 or more polyps adenomatous, ?recommend repeat in 1 year and consideration for ?genetic counseling. Extensive prep with next ?colonoscopies including 2 days golytely prep, 1 ?week miralax, and 1 week low residue diet. ?- Return to GI clinic as previously scheduled. ? Attending Participation: ??I was present and participated during the entire ?procedure, including non-mathew portions. ? Procedure Code(s): ? --- Professional --- ? 06985, Colonoscopy, flexible; with biopsy, single or multiple Diagnosis Code(s): ?--- Professional --- ?K64.8, Other hemorrhoids ?D12.0, Benign neoplasm of cecum ?D12.2, Benign neoplasm of ascending colon ?D12.5, Benign neoplasm of sigmoid colon ?K62.1, Rectal polyp ?D12.3, Benign neoplasm of transverse colon (hepatic ?flexure or splenic flexure) ?Z86.010, Personal history of colonic polyps CPT copyright 2016 [employer]. All rights reserved. The codes documented in this report are preliminary and upon family support worker review may be revised to meet current compliance requirements. Randa Jimenez MD 10/09/2018 4:36:48 PM Note Initiated On: 10/09/2018 3:03 PM Number of Addenda: 0 ? [facility] ? [address] [place] [address] [facility] 10/09/2018 3:03 PM CDT Carrol Irizarry MD GI PROCEDUR E ORDERABLES [facility] * (ABNORMAL) DIFFERENTIAL MANUAL (08/29/2018 2:53 AM CDT) Only the most recent of6 resultswithin the time period is included. WBC Auto 6.3 x10E9/L 08/29/2018 6:19 AM T [facility] WBC Corrected 4.4 - 10.7 x10E9/L 08/29/2018 6:19 AM T [facility] nRBC /100 WBC 08/29/2018 6:19 AM T [facility] Neutrophil % Manual 54 44 - 73 % 08/29/2018 6:19 AM T [facility] Lymphocytes % Manual 35 20 - 43 % 08/29/2018 6:19 AM T [facility] Monocytes % Manual 3(L) 5 - 13 % 08/29/2018 6:19 AM T [facility] Eosinophils % Manual 3 0 - 6 % 08/29/2018 6:19 AM T [facility] Atypical Lymphocyte % Manual 4(H) <=0 % 08/29/2018 6:19 AM T [facility] [place] Manual 1(H) <=0 % 08/29/2018 6:19 AM T [facility] Cells Counted 100 # cells 08/29/2018 6:19 AM [facility] RBC Morphology Normal 08/29/2018 6:19 AM [facility] WBC Morph Normal 08/29/2018 6:19 AM [facility] Platelet Estimation Normal 08/29/2018 6:19 AM T [facility] Blood BLOOD SPECIMEN / Unknown Lab Venipuncture / Unknown 08/29/2018 2:53 AM CDT 08/29/2018 3:02 AM CDT Virginia Covarrubias MD LAB - HEMATOLOGY ORD ERABLES [facility] [address] [place] [address] * VANCOMYCIN LEVEL RANDOM (08/29/2018 2:53 AM CDT) Only the most recent of9 resultswithin the time period is included. Vancomycin Random 23.2 ug/mL 08/29/2018 3:47 AM T [facility] Blood BLOOD SPECIMEN / Unknown Lab Venipuncture / Unknown 08/29/2018 2:53 AM CDT 08/29/2018 3:02 AM CDT Narrative [facility] - 08/29/2018 3:47 AM CDT No reference range available for random Vancomycin levels. All results interpreted by ordering physician. Yady Arenas MD LAB - CHEMISTRY ORDERABLES Performing Organization Address [facility] Co de Phone Number [facility] [address] [place] [address] * C DIFFICILE GDH AG + TOXIN A+B (08/26/2018 4:33 PM CDT) GDH Antigen Negative Negative, Invalid 08/26/2018 11:47 PM CDT [facility] C difficile Toxin A + B Negative Negative, Invalid 08/26/2018 11:47 PM CDT [facility] Interpretation C difficile Negative for toxigenic C. difficile Negative for toxigenic C. difficile 08/26/2018 11:47 PM CDT [facility] Stool STOOL SPECIMEN / Unknown Collection / Unknown 08/26/2018 4:33 PM CDT 08/26/2018 4:49 PM CDT Virginia Covarrubias MD LAB - MICROBIOLOGY O RDERABLES Performing Organization Address [facility] Co de Phone Number [facility] [address] [phone] * XR ABD OBSTR SERIES W CHEST 1VW (08/22/2018 8:29 PM CDT) Anatomical Region Laterality Modality Abdomen Radiographic Evan ging 08/22/2018 8:36 PM CDT Impressions 08/22/2018 8:36 PM CDT Unremarkable gas pattern. Reading Radiologist: Allan Miranda MD on 08/22/2018 at 8:36 PM Narrative 08/22/2018 8:36 PM CDT Obstruction series. HISTORY: Diverticulitis. Views of the abdomen show small amount of contrast material in the colon. There is no dilatation of large or small bowel loops. No free intraperitoneal air is seen. A single view of the chest shows cardiomegaly with normal vessels. Lungs are clear. Procedure Note Allan Miranda MD - 08/22/2018 Obstruction series. HISTORY: Diverticulitis. Views of the abdomen show small amount of contrast material in the colon. There is no dilatation of large or small bowel loops. No free intraperitoneal air is seen. A single view of the chest shows cardiomegaly with normal vessels. Lungs are clear. IMPRESSION Unremarkable gas pattern. Reading Radiologist: Allan Miranda MD on 08/22/2018 at 8:36 PM Virginia Covarrubias MD DIAGNOSTIC IMAGING O RDERABLES * ALBUMIN BLOOD (08/08/2018 7:27 AM CDT) Albumin 3.7 3.2 - 4.6 gm/dL 08/08/2018 11:44 AM CDT [facility] Blood BLOOD SPECIMEN / Unknown Lab Venipuncture / Unknown 08/08/2018 7:27 AM CDT 08/08/2018 7:54 AM CDT Nickie Squires MD LAB - CHEMISTRY OR DERABLES Performing Organization Address [facility] de Phone Number [facility] [address] [place] [id number] * (ABNORMAL) PTH INTACT (08/04/2018 3:30 AM CDT) Only the most recent of2 resultswithin the time period is included. PTH Intact 573.7(H) 8.7 - 77.1 pg/mL 08/04/2018 4:51 AM CDT [facility] Calcium 8.5 8.4 - 10.2 mg/dL 08/04/2018 4:51 AM CDT [facility] Blood BLOOD SPECIMEN / Unknown Lab Venipuncture / Unknown 08/04/2018 3:30 AM CDT 08/04/2018 4:03 AM CDT Narrative [facility] - 08/04/2018 4:51 AM CDT Attention clinician: ??Reference Range has changed. Jc Moreau MD LAB - CHEMISTRY RASHID INFANTE Performing Organization Address [facility] Co de Phone Number [facility] [address] [place] [id number] * AUDIOLOGY/TYMPANOMETRY ORDER (07/18/2018 4:19 PM CDT) Narrative 07/18/2018 4:19 PM CDT Ordered by an unspecified provider. Scanned Document AUDIOLOGY SERVICES O RDERABLES * HIV-1 HIV-2 ANTIGEN/ANTIBODY (05/18/2018 12:15 PM CDT) Only the most recent of5 resultswithin the time period is included. HIV Antigen/Antibod y 1 & 2 Non-reacti ve Non-react nayeli 05/18/2018 2:24 PM CDT [facility] Comment: Neither HIV-1 p24 Antigen nor HIV-1/HIV-2 Antibodies are detected. ? Blood BLOOD SPECIMEN / Unknown Lab Venipuncture / Unknown 05/18/2018 12:15 PM CDT 05/18/2018 12:20 PM CDT Vilma Crain MD LAB - HEMATOLOGY ORD ERABLES Performing Organization Address City/State/[facility] Co de Phone Number [facility] [address] [place] [address] * DE INJECTION TENDON ORIGIN/INSERT (12/22/2017 11:10 AM CDT) Narrative Geraldo Underwood DO - 12/22/2017 11:10 AM CDT Geraldo Underwood DO ? 12/22/2017 11:10 AM INJECTION PROCEDURE NOTE Risks/benefits of injection discussed, including bleeding, infection, site reaction, and possible flare. Pt. Expresses understanding and verbally consents for injection. Area prepped in usual sterile manner. ?? 1 cc of 40 mg/mL Triamcinolone Acetonide + 1 cc of 1% lido was injected into left lateral epicondyle using a direct approach. ??No complications. ??Pt. Tolerated well. Geraldo Underwood DO PROCEDURE/MINOR SURG ICAL ORDERABLES * DE DRAIN/INJECT LARGE JOINT/BURSA (12/04/2017 3:44 PM CDT) Narrative Radha Cordova PA-C - 12/04/2017 3:44 PM CDT Radha Cordova PA-C ? 12/04/2017 ??3:44 PM Orthopaedic Surgery Procedure Note Diagnosis: Right knee pain Procedure: Injection of Corticosteroid into the Right knee. Indications: Moy Tobin is a 62 y.o. female who has Right knee pain and arthritis. Procedure Details: Ms. Tobin was informed of her condition, and the potential benefits of injection of steroid. The patient was counseled as to the risks of the procedure. She was understanding and agreeable. The patient was placed into the supine position. The area was prepped with beta-dine. Utilizing the supralateral patellar portal, the skin, subcutaneous, and pericapsular tissues were injected with 3 cc 1% lidocaine without epinephrine using a 21 Ga needle. The patient's Right knee was then entered. Confirmation of location inside the joint was evidenced by aspiration of straw colored synovial fluid. 2 cc of Kenalog and 3 cc 1% lidocaine without epinephrine was injected into the joint. The needle was removed and the needle site dressed with a semi-sterile bandage. The patient tolerated the procedure well. Remainder of plan per note. Radha Cordova PA-C 12/04/2017 11:55 AM Radha Cordova PA-C PROCEDURE/MINOR SURGICAL ORDERABLES * XR KNEE RIGHT 4VW OR MORE (12/04/2017 11:03 AM CDT) Anatomical Region Laterality Modality Lower Extremity Radiographic Evan ging 12/04/2017 11:2 6 AM CDT Impressions 12/04/2017 11:31 AM CDT IMPRESSION: No acute osseous abnormality or significant arthritis. Dictated by Federico Reynolds MD (resident). I, Dr. MATTHEW ZHU MD have personally reviewed and interpreted this examination/study. This report was electronically signed by MATTHEW ZHU MD ??on 12/04/2017 11:31 AM . Narrative 12/04/2017 11:31 AM CDT EXAMINATION: XR KNEE RIGHT 4VW OR MORE HISTORY: Pain COMPARISON: No prior study is available for comparison. FINDINGS: There is no acute fracture or dislocation. The joint spaces are normal. There is no joint effusion. No soft tissue swelling is present. Vascular calcifications are noted. Procedure Note Matthew Zhu MD - 12/04/2017 EXAMINATION: XR KNEE RIGHT 4VW OR MORE HISTORY: Pain COMPARISON: No prior study is available for comparison. FINDINGS: There is no acute fracture or dislocation. The joint spaces are normal. There is no joint effusion. No soft tissue swelling is present. Vascular calcifications are noted. IMPRESSION: No acute osseous abnormality or significant arthritis. Dictated by Federico Reynolds MD (resident). I, Dr. MATTHEW ZHU MD have personally reviewed and interpreted this examination/study. This report was electronically signed by MATTHEW ZHU MD on 12/04/2017 11:31 AM . Radha Cordova PA-C DIAGNOSTIC IMAG ING ORDERABLES * ENDOSCOPY, COLON, DIAGNOSTIC (09/26/2017 8:57 AM CDT) Report Endoscopy POC Endoscopy Department Report _ Patient Name: Moy Tobin ?Procedure Date: 09/26/2017 8:57 AM ? Date of : 1955 Classification: Outpatient ?Gender: Female _ Providers: ?Keya Reina MD Referring MD: ? Procedure: ?Colonoscopy Indications: ?High risk colon cancer surveillance: Personal ?history of colonic polyps Medications: ?Monitored Anesthesia Care Comorbidities ? LENORA, Afib, hx DVT/PE, hypothyroidism, hx gastric ?bypass surgery, ESRD listed for kidney transplant Patient Profile: ?This is a 62 year old female presenting for ?surveillance colonoscopy Description of Procedure: Pre-Anesthesia Assessment: ?- Prior [...] has ?taken Eliquis (apixaban), last dose was 6 days ?prior to procedure. ASA Grade Assessment: III - A ?patient with severe systemic disease. After ?reviewing the risks and benefits, the patient was ?deemed in satisfactory condition to undergo the ?procedure. ?After I obtained informed consent, the scope was ?passed under direct vision. Throughout the ?procedure, the patient's blood pressure, pulse, and ?oxygen saturations were monitored continuously. The ?CF-[id number] was introduced through the anus and ?advanced to the cecum, identified by the ileocecal ?valve. The colonoscopy was performed without ?difficulty. The patient tolerated the procedure ?well. The quality of the bowel preparation was good ?and adequate to identify polyps. The quality of the ?bowel preparation was evaluated using the BBPS ?(Rosalia Bowel Preparation Scale) with scores of: ?Right Colon = 1 (portion of mucosa seen, but other ?areas not well seen due to staining, residual stool ?and/or opaque liquid), Transverse Colon = 1 ?(portion of mucosa seen, but other areas not well ?seen due to staining, residual stool and/or opaque ?liquid) and Left Colon = 1 (portion of mucosa seen, ?but other areas not well seen due to staining, ?residual stool and/or opaque liquid). The total ?BBPS score equals 3. The quality of the bowel ?preparation was inadequate. The ileocecal valve and ?the rectum were photographed. ? Findings: ? The perianal and digital rectal examinations were normal. ? Extensive amounts of stool was found in the cecum, precluding ? visualization. ? A 4 mm polyp was found in the cecum. The polyp was sessile. The polyp ? was removed with a jumbo cold forceps. Resection and retrieval were ? complete. ? Eight sessile polyps were found in the ascending colon. The polyps were ? 4 to 8 mm in size. 5 of these polyps were removed with a jumbo cold ? forceps. 1 polyp was removed with a hot snare. 2 polyps were removed ? with a cold snare. Resection and retrieval were complete. To prevent ? bleeding after polypectomy, one hemostatic clip was successfully placed. ? Bleeding had stopped at the end of the procedure. ? A few small-mouthed diverticula were found in the sigmoid colon. ? The retroflexed view of the distal rectum and anal verge was normal and ? showed no anal or rectal abnormalities. ? Estimated Blood Loss: ? Estimated blood loss was minimal. Complications: ?No immediate complications. Impression: ? - Stool in the cecum precluding visualization. ?- One 4 mm polyp in the cecum, removed with a jumbo ?cold forceps. Resected and retrieved. ?- Eight 4 to 8 mm polyps in the ascending colon, ?removed with a jumbo cold forceps, hot snare and ?cold snare. Resected and retrieved. 1 Clip was ?placed. ?- Diverticulosis in the sigmoid colon. ?- The distal rectum and anal verge are normal on ?retroflexion view. Recommendation: ? - Patient has a contact number available for ?emergencies. The signs and symptoms of potential ?delayed complications were discussed with the ?patient. Return to normal activities tomorrow. ?Written discharge instructions were provided to the ?patient. ?- Resume previous diet. ?- Continue present medications. ?- Resume Eliquis (apixaban) at prior dose in 2 days. ?- Repeat colonoscopy in 3 months with MAC ?(monitored anesthesia care) because the bowel ?preparation was suboptimal with an extended prep. ?- Extended colonoscopy prep: ?- One week before the colonoscopy: start eating a ?low fiber diet that is no vegetables such as beans, ?corn or peas; no fruits with skin or fruits and ?vegetables with seeds. ?If you are on oral iron- stop taking it. ?Start taking Miralax or another laxative such as ?Milk of Magnesia daily. ?- Two days before the colonoscopy: eat only full ?liquids and very soft foods such as mashed ?potatoes, or oatmeal ?Take a bottle of magnesium citrate about 4 or 5 pm ?that evening. ?- The day before the colonoscopy drink clear ?liquids, anything you can see through such as apple ?juice, grape juice, cranberry juice, chicken broth ?(chicken noodle soup is okay as long as it does not ?have crunchy vegetables and the noodles are well ?cooked such as [place]) ?-drink half the prep (Golytely 2 liters or Suprep ?16 oz followed by 32 oz of water) at 6 pm ?- The day of the colonoscopy - drink the other half ?of the prep in the assembler deck and hull such that you are ?finished drinking 3 hours before your scheduled ?colonoscopy time (if you are scheduled for 9 am and ?need to be in admitting by 8 am get up at 4 am and ?drink the prep from 4am to 6am). You may take your ?medicines with a sip of water on the morning of the ?test but other than that nothing to drink other ?than the laxative, after midnight. ? Attending Participation: ??I was present and participated during the entire ?procedure, including non-mathew portions. ? Procedure Code(s): ? --- Professional --- ? 36253, Colonoscopy, flexible; with removal of tumor(s), polyp(s), or ? other lesion(s) by snare technique ? 63235, 59, Colonoscopy, flexible; with biopsy, single or multiple Diagnosis Code(s): ?--- Professional --- ?Z86.010, Personal history of colonic polyps ?D12.0, Benign neoplasm of cecum ?D12.2, Benign neoplasm of ascending colon ?K57.30, Diverticulosis of large intestine without ?perforation or abscess without bleeding CPT copyright 2016 [employer]. All rights reserved. The codes documented in this report are preliminary and upon family support worker review may be revised to meet current compliance requirements. Keya Reina MD 09/26/2017 10:40:20 AM This report has been signed electronically. Note Initiated On: 09/26/2017 8:57 AM Number of Addenda: 0 ? [facility] ? [address] [facility] [place] [address] [facility] 09/26/2017 8:57 AM CDT Keya Reina MD GI PROCEDURE ORDERAB LES [facility] * XR ABD OBSTRUCTION SERIES 2VW (04/06/2017 9:01 AM HEARING AID FITTER) Anatomical Region Laterality Modality Abdomen Other Impressions 04/06/2017 2:13 PM HEARING AID FITTER IMPRESSION: No evidence of bowel obstruction. Small to moderate amount of radiodense stool throughout the colon. Dictated by Betsey Snell MD (cath lab radiology technician). Dr. BENI Bran M.D. have personally reviewed and interpreted this examination/study. This report was electronically signed by BENI BELLA M.D. ??on 04/06/2017 2:13 PM . Narrative 04/06/2017 2:13 PM HEARING AID FITTER EXAMINATION: XR ABD OBSTRUCTION SERIES HISTORY: abd pain, no BM x 2 months, eval for ileus vs obstruction FINDINGS: No prior study is available for comparison at the time of this dictation. There are no dilated bowel loops. Small to moderate amount of radiodense stool is seen throughout the colon. There is no portal venous gas or pneumatosis. No free intraperitoneal air or air-fluid levels. There are no abnormal calcifications. The visible osseous structures are intact. Surgical clips are noted in the upper abdomen. Procedure Note Beni Bella MD - 05/24/2017 EXAMINATION: XR ABD OBSTRUCTION SERIES HISTORY: abd pain, no BM x 2 months, eval for ileus vs obstruction FINDINGS: No prior study is available for comparison at the time of thisdictation. There are no dilated bowel loops. Small to moderate amount of radiodensestool is seen throughout the colon. There is no portal venous gas orpneumatosis. No free intraperitoneal air or air-fluid levels. There are noabnormal calcifications. The visible osseous structures are intact. Surgical clips are noted in the upperabdomen. IMPRESSION IMPRESSION: No evidence of bowel obstruction. Small to moderate amount of radiodensestool throughout the colon. Dictated by Betsey Snell MD (cath lab radiology technician). Dr. BENI Bran M.D. have personally reviewed and interpreted thisexamination/study. This report was electronically signed by BNEI BELLA M.D. on04/06/2017 2:13 PM . Inocencia Nunez MD DIAGNOSTIC IMAGING ORDERABLES * XR ELBOW LEFT 3VW OR MORE (03/16/2017 12:03 PM HEARING AID FITTER) Anatomical Region Laterality Modality Upper Extremity Other Impressions 03/17/2017 8:58 AM HEARING AID FITTER IMPRESSION: No acute osseous abnormality. Dictated by Joe Bravo MD (cath lab radiology technician). Dr. FRENCH Bran M.D. have personally reviewed and interpreted this examination/study. This report was electronically signed by FRENCH PATEL M.D. ??on 03/17/2017 8:58 AM . Narrative 03/17/2017 8:58 AM HEARING AID FITTER EXAMINATION: XR ELBOW LEFT 3+ VW HISTORY: pain FINDINGS: No prior study is available for comparison at the time of this dictation. Note that the forearm is included on these elbow radiographs. The osseous structures are intact and well aligned without acute fracture or dislocation. The joint spaces are preserved. No joint effusion is seen. No soft tissue swelling is present. An arteriovenous fistula is present in the forearm with surgical clips present. Procedure Note French Patel MD - 05/24/2017 EXAMINATION: XR ELBOW LEFT 3+ VW HISTORY: pain FINDINGS: No prior study is available for comparison at the time of thisdictation. Note that the forearm is included on these elbow radiographs. The osseousstructures are intact and well aligned without acute fracture ordislocation. The joint spaces are preserved. No joint effusion is seen. Nosoft tissue swelling is present. An arteriovenous fistula is present in the forearm with surgical clipspresent. IMPRESSION IMPRESSION: No acute osseous abnormality. Dictated by Joe Bravo MD (cath lab radiology technician). Dr. FRENCH Bran M.D. have personally reviewed and interpreted thisexamination/study. This report was electronically signed by FRENCH PATEL M.D. on 03/17/20178:58 AM . Millie Blake APRN-ARMATURE STRAIGHTENER DIAGNOSTIC IMAG ING ORDERABLES * RPR (11/17/2016 11:45 AM CDT) Only the most recent of4 resultswithin the time period is included. RPR Non-reacti ve Non-reacti ve [facility] Blood specimen (specimen) BLOOD SPECIMEN / Unknown 11/17/2016 11:45 AM CDT 11/17/2016 12:09 PM CDT Sarah Enciso MD LAB - CHEMISTRY ORDE RABLES [facility] [address] [phone] * HLA XM SEROLOGIC DONOR (08/18/2016 1:24 PM CDT) Only the most recent of2 resultswithin the time period is included. XM B Donor ID [id number] [facility] ([facility]) XM B Relation Donor [facility] ([facility]) XM Test Date 08/18/2016 [facility]) XM T Janna Neg [facility] ([facility]) XM B Serum Date 08/18/2016 [facility] ([facility]) Comment: This test was developed and its performance characteristics determined bythe [facility]. ??It has not been cleared or approved by theU.S. Food and Drug Administration. ??The FDA has determined that suchclearance or approval is not necessary. ?? This test is used for clinicalpurposes. ??It should not be regarded as investigational or for research.This laboratory is certified under the Clinical Laboratory ImprovementAmendments of 1988 (CLIA-88) as qualified to perform high complexityclinical laboratory testing. ??CLIA ID# [id number] at: ??[facility], [address] @ [place], [place] ??[address]Lmc Director: Jose De Jesus Pacheco MD, XM B Janna Neg [facility] ([facility]) XM T AHG Neg [facility] ([facility]) XM B [facility]HG Neg SL [facility] ([facility]) Blood specimen (specimen) BLOOD SPECIMEN / Unknown 08/18/2016 1:24 PM CDT 08/18/2016 1:24 PM CDT Han Bourne MD LAB - BLOOD BANK ORD ERABLES [facility] ([facility]) * FLOW HLA XM DONOR (08/18/2016 12:39 PM CDT) Flow XM Donor ID [id number] [facility] ([facility]) Flow XM Relation Donor [facility] ([facility]) Flow XM Serum Date 08/18/2016 [facility]) Flow XM T Cell Neg MCS1 [facility] ([facility]) Flow XM Test Date 08/18/2016 [facility] ([facility]) Comment: This test was developed and its performance characteristics determined bythe [facility]. ??It has not been cleared or approved by theU.S. Food and Drug Administration. ??The FDA has determined that suchclearance or approval is not necessary. ?? This test is used for clinicalpurposes. ??It should not be regarded as investigational or for research.This laboratory is certified under the Clinical Laboratory ImprovementAmendments of 1988 (CLIA-88) as qualified to perform high complexityclinical laboratory testing. ??CLIA ID# [id number] at: ??[facility], [address] @ [place], [place] ??[address]Sts Director: Jose De Jesus Pacheco MD, Flow XM B Cell Neg MCS-39 [facility] ([facility]) Blood specimen (specimen) BLOOD SPECIMEN / Unknown 08/18/2016 12:39 PM CDT 08/18/2016 1:18 PM CDT Han Bourne MD LAB - PATHOLOGY/CYTO LOGY ORDERABLES [facility] ([facility]) * EP LAB CONSULT (07/13/2016 7:13 PM CDT) Narrative [facility] - 07/13/2016 7:13 PM CDT Ryland Alves MD ? 07/13/2016 ??7:13 PM ??Electrophysiologic Study and Radiofrequency Ablation ??07/13/2016 ??Photovoltaic Technician: ?Ryland Alves MD ??Procedures Performed: ?1. Comprehensive electrophysiologic study with coronary sinus pacing/recording. ??2. 3D electroanatomical mapping. ??3. Mapping, tachycardia site with catheter manipulation. ??4. Radiofrequency ablation of cavotricuspid isthmus for treatment of isthmus dependent atrial flutter. ??5. Comprehensive electrophysiologic follow-up study. ??History of Present Illness: ??Moy Tobin is a 60-year-old with ESRD, nonischemic cardiomyopathy (EF 35%), prior EP study and ablation (1993), paroxysmal atrial fibrillation, nonobstructive CAD. She initially presented on 06/30 with palpitations. On presentation her ECG demonstrated atrial flutter with 2:1 AV conduction and ventricular rate of 116 bpm (flutter CL 260 msec). The episodes of atrial flutter have occurred despite compliance with chronic amiodarone 200 mg qd. Due to chronic hypotension, Ms. Tobin is unable to take AV thomas blocking agents. She presents today for electrophysiologic study and ablation. ??Ms. Tobin is currently in sinus rhythm and she has been treated with Eliquis 5 mg bid for several days. Therefore, I have decided not to perform JAE prior to today's procedure. ??Of note, Ms. Tobin reports undergoing atrial flutter ablation at [facility] in 1993. ?Medications: ??The patient received general anesthesia as provided by anesthesiology. ??Thirty milliliters of 1% lidocaine was administered subcutaneously to provide local anesthesia. ??Description of Procedure: ??The risks and benefits of electrophysiologic study and radiofrequency ablation were discussed with Moy Tobin. ??The risks include and are not limited to , stroke, heart attack, permanent disability, cardiac surgery, perforation, pericardial effusion, heart block requiring pacemaker implantation and hemorrhage. ??Time was allotted for questions to be asked, all questions were answered, and the patient gave informed consent to proceed with the procedure. ??The patient presented to the electrophysiology laboratory in a fasting, non-sedated state. ?? The patient was prepped and draped in the usual sterile fashion for electrophysiology study. ??One percent lidocaine was administered to the skin and subcutaneous tissues in the right. ?? Using a modified Seldinger technique, the right femoral vein was accessed and cannulated with a 7-Fr and and two 8-Fr vascular sheaths without difficulty. ??Through a 7-Fr sheath, using fluoroscopic guidance, a Bard deflectable decapolar catheter was advanced to the lateral coronary sinus. ??An 8-Fr sheath was exchanged [id number] for a Mobi small curve deflectable sheath. ??Through the Mobi deflectable sheath, a Biosense-Barnett Smart Touch D-F curve irrigated ablation catheter was advanced to the right atrium. ?? Through the second 8-Fr sheath, a Biosense-Barnett Pentarray diagnostic catheter was advanced to the right atrium. ??Using CARTO 3D electroanatomical mapping, I created a dense voltage map of the right atrium ( dense scar < 0.05 mV and normal tissue > 0.5 mV). ??The voltage map did not demonstrate any evidence of scar tissue within the right atrium. ??In particular, there was not evidence of prior ablation of the cavotricuspid isthmus. ?I advanced the ablation catheter to the area of the His bundle region. ??Pacing maneuvers, including incremental pacing, burst pacing, and programmed extra-stimuli, were performed for the purpose of comprehensive electrophysiologic study and arrhythmia induction. ??Of note, EP study performed while Ms. Tobin under general anesthesia. ?Ms. Tobin presented in sinus rhythm with a baseline cycle length of 890 ms; DE 195 ms; QRS 140 ms; QT 435 ms; HV 50 ms. ??At baseline Ms. Tobin had a left bundle branch block. ??During decremental pacing from the right ventricular apex, retrograde VA conduction was concentric and decremental. ??VA Wenckebach conduction was present at 620 ms. ?During single atrial programmed extra-stimuli from the coronary sinus ostium, dual AV thomas pathway physiology was present. ??The AV thomas fast pathway ERP was 700/540 ms and the slow pathway ERP was 700/520 ms. ??During decremental pacing from the coronary sinus ostium, a [id number] AV thomas pathway jump was easily and reproducibly demonstrated (Remington Fozia sign). ??AV thomas Wenckebach conduction was supra-Hisian and occurred at 580 ms and 2:1 AV conduction occurred at 540 ms. ??I subsequently performed burst pacing from the coronary sinus ostium in an attempt to induce Ms. Tobin' clinical tachycardia. ?? During burst pacing from the coronary sinus ostium at 230 msec, twice I induced atrial flutter. ??The atrial flutter had a cycle length of 270 msec and proximal to distal activation sequence on the coronary sinus catheter. ??Using CARTO electroanatomical mapping and the Pentarray diagnostic catheter, I attempted to perform activation mapping of the atrial tachycardia. ??Brief activation mapping was consistent with counter clockwise cavotricuspid isthmus dependent atrial flutter however the atrial flutter quickly deteriorated into atrial fibrillation. ??The atrial fibrillation lasted a few minutes before spontaneously converting back into sinus rhythm. ?At this point, I decided to perform ablation of the cavotricuspid isthmus for treatment of typical atrial flutter. ?? Using a power of 30 Garcia, I created a linear lesion across the 6 o'clock aspect of the cavotricuspid isthmus. ??At the conclusion of the procedure, 15 minutes after the last radiofrequency lesion, bidirectional block was present across the isthmus as demonstrated by differential pacing a transisthmus conduction time (170 msec bidirectionally). ?Post-ablation rhythm was sinus rhythm with a cycle length of 910 ms; DE 190 ms; QRS 140 ms; HV interval of 52 msec. ??During decremental pacing from the right ventricular apex, retrograde VA conduction was concentric and decremental. ??VA Wenckebach conduction was present at 750 ms. ??During single atrial programmed extra-stimuli from the coronary sinus ostium, no evidence of dual AV thomas pathway physiology was present. ??The AV thomas fast pathway ERP was 800/710 ms. ??During decremental pacing from the coronary sinus ostium, a [id number] AV thomas pathway jump was not present. ??AV thomas Wenckebach conduction was supra-Hisian and occurred at 740 ms. ??All catheters and sheaths were removed in the electrophysiology laboratory and hemostasis was achieved following 20 minutes of manual pressure. ??The patient tolerated the procedure well and there were no complications during the procedure. ??Impression: ??1. ??Successful ablation of cavotricuspid isthmus for treatment of typical atrial flutter. ??2. ??Normal His-Purkinje conduction. ??Plan: ??1. ??Due to Ms. Tobin elevated CHADS-VASc score, I agree with continued treatment with Eliquis 5 mg bid (will restart Eliquis tomorrow). ??The attending physician was physically present throughout the entire duration of the procedure. Ryland Alves MD ECHO ORDERABLES [facility] * (ABNORMAL) POTASSIUM BLOOD (07/07/2016 2:46 PM CDT) Only the most recent of4 resultswithin the time period is included. Potassium 5.8(H) 3.5 - 5.1 mmol/L 07/07/2016 2:58 PM CDT [facility] Blood BLOOD SPECIMEN / Unknown 07/07/2016 2:46 PM CDT 07/07/2016 2:46 PM CDT Kalina Meredith DO LAB - CHEMISTRY RASHID INFANTE [facility] [address] [place] [address] * (ABNORMAL) BLOOD GASES OSMAR + LYTES GLUC CA+ HH (ISTAT) (07/07/2016 2:32 PM CDT) pH Venous POCT 7.38 7.32 - 7.42 pH 07/07/2016 2:48 PM CDT [facility] pCO2 Venous POCT 16.9(L) 41 - 51 mmHg 07/07/2016 2:48 PM CDT [facility] pO2 Venous POCT 35 30 - 55 mmHg 07/07/2016 2:48 PM CDT [facility] HCO3 Venous 10.0(L) 24 - 26 mmol/L 07/07/2016 2:48 PM CDT [facility] BE Venous -14(L) -2 - 2 mmol/L 07/07/2016 2:48 PM CDT [facility] TCO2 Venous Calc POCT 10(L) 24 - 29 mmol/L 07/07/2016 2:48 PM CDT [facility] O2 Saturation Venous POCT 68(L) >70 % 07/07/2016 2:48 PM CDT [facility] Sodium Venous 152(H) 136 - 145 mmol/L 07/07/2016 2:48 PM CDT [facility] Potassium POCT 2.0(LL) 3.5 - 5.1 mmol/L 07/07/2016 2:48 PM CDT [facility] Calcium Ionized Venous POCT 0.55(LL) 1.12 - 1.32 mmol/L 07/07/2016 2:48 PM CDT [facility] Glucose Venous POCT 27(LL) 74 - 106 mg/dL 07/07/2016 2:48 PM CDT [facility] Hematocrit Venous POCT <15.0(LL) 35.9 - 45.5 %PCV 07/07/2016 2:48 PM CDT [facility] Site Osmar Line 07/07/2016 2:48 PM CDT [facility] Justino's Test NA 07/07/2016 2:48 PM CDT [facility] CPB iSTAT No 07/07/2016 2:48 PM CDT [facility] PT iSTAT [id number] 07/07/2016 2:48 PM CDT [facility] Sample iSTAT VENOUS 07/07/2016 2:48 PM CDT [facility] Blood BLOOD SPECIMEN / Unknown 07/07/2016 2:32 PM CDT 07/07/2016 2:47 PM CDT Margo Mckinney MD LAB - POINT OF CARE ORDERABLES Performing Organization Address [facility] de Phone Number [facility] [address] [place] [address] * (ABNORMAL) PTT (07/07/2016 5:26 AM CDT) Only the most recent of29 resultswithin the time period is included. PTT 60.8(H) 21.0 - 32.0 sec 07/07/2016 6:24 AM CDT [facility] Blood BLOOD SPECIMEN / Unknown 07/07/2016 5:26 AM CDT 07/07/2016 6:09 AM CDT Narrative [facility] - 07/07/2016 6:24 AM CDT Heparin Therapeutic Range for PTT: 47.7 - 68.6 seconds. Margo Mckinney MD LAB - COAGULATION OR DERABLES Performing Organization Address City/[facility] Co de Phone Number [facility] [address] [place] [phone] * COMPLETE PFT W/WO BRONCHODILATOR (07/06/2016 12:00 PM CDT) 07/06/2016 12:0 0 PM CDT Narrative Procedure Note Mateo Orozco MD - 07/07/2016 9:26 AM CDT [facility] PULMONARY FUNCTION TEST REPORT PATIENT: MOY TOBIN MR#: [id number] ADMIT DATE: 06/30/2016 CSN: [id number] DATE OF PROCEDURE: 07/06/2016 :1955 PHYSICIAN: Mateo Orozco MD REFERRING PHYSICIAN: Margo Mckinney MD FINDINGS: 1. Baseline spirometry reveals a mild decrease in expiratory flows. 2. Following administration of bronchodilator, there is no significant change in expiratory flows. 3. FEV1/FVC ratio is normal. 4. Lung volumes demonstrate a moderate decrease in total lung capacity. 5. Gas transfer capacity is diminished, but corrects for lung volume. 6. Flow volume loop has a restrictive pattern. IMPRESSION: There is no significant obstructive lung disease or bronchodilator response. There is moderate restrictive lung disease.Gas transfer capacity is diminished, but corrects for lung volume. Mateo Mitchell MD GIOVANNA/MODL #:[id number] Lionel Gonzalez MD RESPIRATORY THERAPY ORDERABLES [facility] * (ABNORMAL) PT PTT PANEL (07/03/2016 6:24 PM CDT) Only the most recent of9 resultswithin the time period is included. PT 10.6 9.5 - 11.6 sec 07/03/2016 6:55 PM CDT [facility] INR 1.1 0.9 - 1.1 07/03/2016 6:55 PM CDT [facility] PTT 91.3(H) 21.0 - 32.0 sec 07/03/2016 6:55 PM CDT [facility] Blood BLOOD SPECIMEN / Unknown 07/03/2016 6:24 PM CDT 07/03/2016 6:29 PM CDT Narrative [facility] - 07/03/2016 6:55 PM CDT Conventional Warfarin Anticoagulant Therapy: INR Reference Range: ??2.0-3.0 Intensive Warfarin Anticoagulant Therapy: INR Reference Range: ? 2.5-3.5 Heparin Therapeutic Range for PTT: 47.7 - 68.6 seconds. Lionel Gonzalez MD LAB - COAGULATION OR DERABLES Performing Organization Address [facility] Co de Phone Number [facility] [address] [place] [address] * GLUCOSE - POINT OF CARE (AMB) [facility] (06/01/2016 9:59 AM CDT) Only the most recent of2 resultswithin the time period is included. Rimma Prakash MD LAB - POINT OF CARE ORDERABLES Performing Organization Address [facility] Co de Phone Number [facility] * (ABNORMAL) GLUCOSE ACCUCHECK (06/01/2016 9:58 AM CDT) Only the most recent of5 resultswithin the time period is included. Glucose, Fingerstick 63(L) 70-115mg/d L mg/dL [facility] ([facility]) Comment:Photovoltaic Technician: AALIYAH PATEL 06/01/2016 9:58 AM CDT Rimma Prakash MD LAB - CHEMISTRY RASHID INFANTE Performing Organization Address [facility] de Phone Number [facility] ([facility]) * CULTURE FUNGUS OTHER+FUNGUS SMEAR (04/08/2016 2:08 PM HEARING AID FITTER) Only the most recent of2 resultswithin the time period is included. Culture Fungus-Other No Growth Fungi. [facility] Fungus Smear No Fungi or Pneumocystis seen [facility] Bronchoalveolar Lavage BRONCHIOLOALVEOLAR LAVAGE / Unknown 04/08/2016 2:08 PM HEARING AID FITTER 04/08/2016 2:53 PM HEARING AID FITTER Narrative [facility] - 05/10/2016 10:11 AM CDT RUL Specimen Type->Bronchoalveolar Lavage Gonzalo Gregory MD LAB - [place] [address], [facility] [phone] * CULTURE AFB+SMEAR (04/08/2016 2:08 PM HEARING AID FITTER) Only the most recent of2 resultswithin the time period is included. Culture Acid Fast Bacilli No Growth of Acid Fast bacilli after 8 weeks. [facility] AFB Smear No Acid Fast bacilli seen on direct smear. [facility] AFB Smear No Acid Fast bacilli seen on concentrated smear. [facility] Bronchoalveolar Lavage BRONCHIOLOALVEOLAR LAVAGE / Unknown 04/08/2016 2:08 PM HEARING AID FITTER 04/08/2016 2:53 PM HEARING AID FITTER Narrative [facility] - 06/06/2016 8:08 AM CDT RUL Specimen Type->Bronchoalveolar Lavage Gonzalo Gregory MD LAB - MICROBIOLOGY O [place]ANTOSH Performing Organization Address [facility]/[place] [address], [facility] [phone] * CULTURE BRONCHOALVEOLAR LAVAGE QNT+GRAM STAIN (04/08/2016 2:08 PM HEARING AID FITTER) Culture Quant-BAL <10,000 CFU/ML - respiratory javan [facility] Comment: Gram Stain No Organism Seen [facility] Bronchoalveolar Lavage BRONCHIOLOALVEOLAR LAVAGE / Unknown 04/08/2016 2:08 PM HEARING AID FITTER 04/08/2016 4:41 PM HEARING AID FITTER Narrative [facility] - 04/10/2016 4:02 PM HEARING AID FITTER RUL Specimen Type->Bronchoalveolar Lavage Gram Stains are routinely screened for the presence of Polymorphonuclear Cells. Gonzalo Gregory MD LAB - [place] [address], [facility] [phone] * CYTOLOGY NON-CHEMICAL TREATMENT PLANT TECHNICIAN PANEL (STL) (04/08/2016 2:03 PM HEARING AID FITTER) Only the most recent of2 resultswithin the time period is included. Cytology Non-Senior Benefits Analyst Accession No: [id number] Reference: [id number] Specimen: BAL, RUL Clinical History: tree in bud opacities Gross Description: 30 ml clear fluid Preparation Method: 1 Pap stained Cytospin slide, 1 GMS SPECIMEN ADEQUACY: ADEQUATE FINAL DIAGNOSIS: LUNG, RIGHT UPPER LOBE, BAL: - ? NEGATIVE FOR MALIGNANCY MICROSCOPIC DESCRIPTION: Review of the material reveals histiocytes, bronchial cells, and rare squamous cells. GMS staining is negative for discernable pathologic fungal organisms with good control. COMMENT(S): This case has been personally reviewed and interpreted by the attending (teaching) pathologist. Final Diagnosis performed by Momo Hall MD. Electronically signed 04/13/2016 [facility] ([facility]) Other (qualifier value) 04/08/2016 2:03 PM HEARING AID FITTER 04/08/2016 2:50 PM HEARING AID FITTER Narrative [facility] ([facility]) - 04/13/2016 9:59 AM HEARING AID FITTER Diagnosis->tree in bud opacities Collection Date->04/08/16 Collection Time-> 2:03 PM Specimen A->Bronchoalveolar Lavage RUL BAL Gonzalo Gregory MD LAB - PATHOLOGY/CYTO LOGY ORDERABLES [facility] ([facility]) * DIFFERENTIAL MANUAL FLUID (04/08/2016 2:02 PM HEARING AID FITTER) Pathologist [facility] Lymphocytes % Fluid 1 % [facility] Macrophages % Fluid 93 % [facility] Pneumocytes % Fluid 6 % [facility] Fluid specimen (specimen) BRONCHIOLOALVEOLAR LAVAGE / Unknown 04/08/2016 2:02 PM HEARING AID FITTER 04/08/2016 2:55 PM HEARING AID FITTER Narrative [facility] - 04/08/2016 3:49 PM HEARING AID FITTER Rul No reference ranges established for body fluid differential. Gonzalo Gregory MD LAB - BODY FLUID ORD ERABLES [place] [id number] [address] [phone] * CELL COUNT FLUID (04/08/2016 2:02 PM HEARING AID FITTER) Color Fluid Colorless Colorles s, Straw [facility] Clarity Fluid Clear Clear [facility] Volume Fluid 1.0 mL [facility] WBC Calculation Fluid 130 /uL [facility] RBC Calculation 23 /uL [facility] Differential Manual Differential to follow. [facility] Fluid specimen (specimen) BRONCHIOLOALVEOLAR LAVAGE / Unknown 04/08/2016 2:02 PM HEARING AID FITTER 04/08/2016 2:55 PM HEARING AID FITTER Narrative [facility] - 04/08/2016 3:40 PM HEARING AID FITTER Rul No established reference ranges for WBC and RBC body fluid count. Gonzalo Gregory MD LAB - BODY FLUID ORD ERABLES [address] [phone] * CELL COUNT W DIFFERENTIAL FLUID (04/08/2016 2:02 PM HEARING AID FITTER) Fluid specimen (specimen) BRONCHIOLOALVEOLAR LAVAGE / Unknown 04/08/2016 2:02 PM HEARING AID FITTER Narrative [facility] - 04/08/2016 3:49 PM HEARING AID FITTER Rul The following orders were created for panel order Body fluid cell count with diff. Procedure ? Abnormality ? Status ? --------- ? ------ ? Body fluid cell count wit...[[id number]] ?Final result ? MANUAL DIFFERENTIAL FLUID[[id number]] ? Final result ? Please view results for these tests on the individual orders. Gonzalo Gregory MD LAB - BODY FLUID ORD ERABLES Performing Organization Address [facility] de Phone Number [facility] [address] * CULTURE BRONCHIAL BRUSHINGS QUANT (04/08/2016 1:51 PM HEARING AID FITTER) Culture Bronch [place] No Growth of >=100 CFU/ml after 48 Hours [facility] Bronchial [place] 04/08/2016 1 :51 PM HEARING AID FITTER 04/08/2016 2:54 PM HEARING AID FITTER Narrative [facility] - 04/10/2016 2:18 PM HEARING AID FITTER RUL Specimen Type->Bronchial [place] Gonzalo Gregory MD LAB - MICROBIOLOGY O SANTOSH Performing Organization Address [facility] de Phone Number [address] [phone] * CULTURE AEROBIC (04/08/2016 1:46 PM HEARING AID FITTER) Culture Aerobic Growth of respiratory javan. [facility] Gram Stain Many Gram Positive cocci in pairs, chains, and clusters [facility] Gram Stain Many Gram Negative bacilli [facility] Gram Stain Moderate Polymorphonuclear Cells [facility] Gram Stain Few Gram Negative diplococci [facility] Gram Stain Few Epithelial Cells [facility] Bronchial Washings SPECIMEN FROM LUNG OBTAINED BY BRONCHIAL WASHING PROCEDURE / Unknown 04/08/2016 1:46 PM HEARING AID FITTER 04/08/2016 2:54 PM HEARING AID FITTER Narrative [facility] - 04/10/2016 3:59 PM HEARING AID FITTER Specimen Type->Bronchial Washings Gram Stains are routinely screened for the presence of Polymorphonuclear Cells. Gonzalo Gregory MD LAB - MICROBIOLOGY O [place] Performing Organization Address [facility] de Phone Number [address] [phone] * XR FOOT BILAT MIN 3 VIEWS (03/31/2016 11:50 AM HEARING AID FITTER) Anatomical Region Laterality Modality Ankle / Foot, Lower Extremity Ra diographic Imaging 03/31/2016 12:0 7 PM HEARING AID FITTER Impressions 03/31/2016 12:12 PM HEARING AID FITTER First MTP joint and midfoot osteoarthritis. No acute findings. Narrative 03/31/2016 12:12 PM HEARING AID FITTER Right foot 3 views with weightbearing. Left foot 3 views with weightbearing. History: Pain in both feet. Findings: Left foot: Dorsal spurring is identified in the midfoot on the lateral radiograph. There are small plantar and dorsal heel spurs. The plantar arch is preserved with weightbearing. There is mild first MTP joint osteoarthritis. No fracture, malalignment, or destructive process. Small vessel vascular calcifications noted. Right foot: Osteoarthritis of the first MTP joint with hypertrophy of the medial and dorsal aspects metatarsal head. Motion is present midfoot osteoarthritis with dorsal spurring. There is also spurring at the dorsal and plantar calcaneus. Plantar arch is unremarkable. No fracture or osseous lesion. No malalignment. Small vessel vascular disease. Procedure Note Beni Caceres MD - 03/31/2016 Right foot 3 views with weightbearing. Left foot 3 views with weightbearing. History: Pain in both feet. Findings: Left foot: Dorsal spurring is identified in the midfoot on the lateral radiograph. There are small plantar and dorsal heel spurs. The plantar arch is preserved with weightbearing. There is mild first MTP joint osteoarthritis. No fracture, malalignment, or destructive process. Small vessel vascular calcifications noted. Right foot: Osteoarthritis of the first MTP joint with hypertrophy of the medial and dorsal aspects metatarsal head. Motion is present midfoot osteoarthritis with dorsal spurring. There is also spurring at the dorsal and plantar calcaneus. Plantar arch is unremarkable. No fracture or osseous lesion. No malalignment. Small vessel vascular disease. IMPRESSION First MTP joint and midfoot osteoarthritis. No acute findings. Devika Rolon DPM DIAGNOSTIC IMAGING O RDERABLES * DEXA BONE DENSITY AXIAL SKELETON (01/26/2016 9:02 AM HEARING AID FITTER) Anatomical Region Laterality Modality Other Narrative 01/26/2016 9:41 AM HEARING AID FITTER Examination: Dual energy x-ray absorptiometry of the lumbar spine and hip. Clinical Indication: Prekidney evaluation, history low calcium reported by the patient Findings: Detailed data from the exam is sent separately to the ordering physician and is also available on [employer], the Radiology Department's computerized picture archive system [...] the orderingphysician and is also available on [employer], the Radiology Department'Teachernow picture archive system SUMMARY: No prior study [...] Gonzalo Penny on 01/26/2016 9:32 AM . IDr. RANULFO D.O. have personally reviewed and interpreted thisexamination/study. This report was electronically signed by RANULFO PELAEZ D.O. on 01/26/20169:41 AM . Erin Villalta MD DEXA ORDERABLES * THYROID PEROXIDASE ANTIBODY (01/11/2016 4:10 PM HEARING AID FITTER) Thyroid Peroxidase TPO Antibody 6 0 - 34 IU/mL [facility] ([facility]) Blood specimen (specimen) BLOOD SPECIMEN / Unknown 01/11/2016 4:10 PM HEARING AID FITTER 01/11/2016 4:35 PM HEARING AID FITTER Narrative [facility] ([facility]) - 01/13/2016 7:15 AM HEARING AID FITTER Performed at: ??01 - [facility] ??[id number] Professor Of German: El Fan PhD, Phone: ??[phone] Oscar Oliveira MD LAB - CHEMISTRY RASHID INFANTE Performing Organization Address [facility] Co de Phone Number [facility] ([facility]) * THYROID STIMULATING IMMUNOGLOBULIN (TSI) (01/11/2016 4:10 PM HEARING AID FITTER) Pathologist [facility] Thyroid Stimulating Immunoglobulin 82 0 - 139 % [facility]) Blood specimen (specimen) BLOOD SPECIMEN / Unknown 01/11/2016 4:10 PM HEARING AID FITTER 01/11/2016 4:35 PM HEARING AID FITTER Narrative [facility] ([facility]) - 01/17/2016 5:06 PM HEARING AID FITTER Performed at: ??01 - [address] ??[id number] Professor Of German: Idris Ramos MD, Phone: ??[phone] Oscar Oliveira MD LAB - CHEMISTRY RASHID INFANTE Performing Organization Address City/[facility]/ZIP Co de Phone Number [facility] ([facility]) * (ABNORMAL) FRUCTOSAMINE (01/11/2016 4:10 PM HEARING AID FITTER) Pathologist [facility] Fructosamine 294(H) 0 - 285 umol/L [facility] ([facility]) Comment: Published reference interval for apparently healthy subjects between age 20 and 60 is 205 - 285 umol/L and in a poorly controlled diabetic population is 228 - 563 umol/L with a mean of 396 umol/L. Blood specimen (specimen) BLOOD SPECIMEN / Unknown 01/11/2016 4:10 PM HEARING AID FITTER 01/11/2016 4:35 PM HEARING AID FITTER Narrative [facility] ([facility]) - 01/13/2016 6:12 AM HEARING AID FITTER Performed at: ??01 - [facility] [address] ??[id number] Professor Of German: El Fan PhD, Phone: ??[phone] Oscar Oliveira MD LAB - CHEMISTRY RASHID INFANTE [facility] JESSICA) * US RETROPERITONEAL COMPLETE (12/03/2015 8:29 AM CDT) Only the most recent of2 resultswithin the time period is included. Anatomical Region Laterality Modality Abdomen Other Impressions 12/03/2015 2:02 PM CDT IMPRESSION: 1. Atrophic echogenic kidneys consistent with chronic parenchymal disease. 2. Nonobstructive 4 mm left renal calculus. No evidence of hydronephrosis or solid renal mass. Dictated by Jun Cobos MD (resident). This report was approved ??by Jun Cobos ?? on 12/03/2015 11:04 AM . I, Dr. Kylah ZELAYA M.D. have personally reviewed and interpreted this examination/study. This report was electronically signed by Kylah ZELAYA M.D. ??on 12/03/2015 2:02 PM . Narrative 12/03/2015 2:02 PM CDT EXAMINATION: Complete retroperitoneal sonogram HISTORY: Prerenal transplant evaluation COMPARISON: Comparison is made with a study from 11/11/2014. FINDINGS: Right kidney: 5.4 x 2.4 x 2.8 cm Left kidney: 5.5 x 2.6 x 2.5 cm Renal parenchymal echogenicity is increased bilaterally consistent with renal parenchymal disease. There is an echogenic focus in the inferior pole of the left kidney measuring 4 mm in diameter which likely represents a stone. One right and two left simple cysts are seen in the kidneys, the largest measuring 5 mm in diameter. No evidence of a solid renal mass or hydronephrosis. Blood flow is seen within the renal arteries and veins. The bladder is decompressed. Procedure Note Jennyfer Zelaya MD - 05/20/2017 EXAMINATION: Complete retroperitoneal sonogram HISTORY: Prerenal transplant evaluation COMPARISON: Comparison is made with a study from 11/11/2014. FINDINGS: Right kidney: 5.4 x 2.4 x 2.8 cm Left kidney: 5.5 x 2.6 x 2.5 cm Renal parenchymal echogenicity is increased bilaterally consistent withrenal parenchymal disease. There is an echogenic focus in the inferiorpole of the left kidney measuring 4 mm in diameter which likely representsa stone. One right and two left simple cysts are seen in the kidneys, the largest measuring 5 mm indiameter. No evidence of a solid renal mass or hydronephrosis. Blood flowis seen within the renal arteries and veins. The bladder isdecompressed. IMPRESSION IMPRESSION: 1. Atrophic echogenic kidneys consistent with chronic parenchymaldisease. 2. Nonobstructive 4 mm left renal calculus. No evidence of hydronephrosisor solid renal mass. Dictated by Jun Cobos MD (resident). This report was approved by Jun Cobos on 12/03/2015 11:[address] Kylah Bran M.D. have personally reviewed and interpreted thisexamination/study. This report was electronically signed by Kylah ZELAYA M.D. on12/03/2015 2:02 PM . Jc Kwong MD ORDERABLES * HEPATITIS B CORE ANTIBODY IGM (11/23/2015 10:52 AM CDT) Only the most recent of2 resultswithin the time period is included. Hepatitis B Core Virus Antibody IgM Non-reacti ve Non-reacti ve [facility] Blood specimen (specimen) BLOOD SPECIMEN / Unknown 11/23/2015 10:52 AM CDT 11/23/2015 11:13 AM CDT Brayan Pryor MD LAB - CHEMISTRY RASHID INFANTE [facility] Organization Address City/State/ZIP Co de Phone Number [address] [phone] * CROSSMATCH RBC LEUKOREDUCED (11/23/2015 5:56 AM CDT) Only the most recent of7 resultswithin the time period is included. 11/23/2015 5:56 AM CDT 11/23/2015 6:20 AM CDT Brayan Pryor MD LAB - BLOOD BANK ORD ERABLES Performing Organization Address [facility] Co de Phone Number [address] * RUBELLA ANTIBODY IGG (11/23/2015 5:34 AM CDT) Rubella Antibody IgG Quantitative 28.70 Immune >0.99 index [facility] ([facility]) Comment: ?Non-immune ? <0.90 ?Equivocal ??0.90 - 0.99 ?Immune ? >0.99 Blood specimen (specimen) BLOOD SPECIMEN / Unknown 11/23/2015 5:34 AM CDT 11/23/2015 5:46 AM CDT Narrative [facility] ([facility]) - 11/24/2015 8:24 AM CDT Performed at: ??01 - [address], [place], [place] ??[id number] Professor Of German: El Fan PhD, Phone: ??[phone] Brayan Pryor MD LAB - SEROLOGY ORDER WYATT Performing Organization Address City/[facility]/ZIP Co de Phone Number [facility] ([facility]) * GREEN TOP TUBE EXTRA (11/20/2015 10:27 AM CDT) Extra Tube Auto Resulted [facility] Blood specimen (specimen) BLOOD SPECIMEN / Unknown 11/20/2015 10:27 AM CDT 11/20/2015 10:33 AM CDT Michela Dunn MD LAB - CHEMISTRY RASHID COLLINLISA Performing Organization Address City/[facility]/ZIP Co de Phone Number [facility] [address] [phone] * ECHO W DOPPLER AND COLOR FLOW (11/20/2015 12:00 AM CDT) Anatomical Region Laterality Modality Other 11/20/2015 Brayan Pryor MD ECHOCARDIOGRAPHY RAD IANT * PATHOLOGY/GENETICS HISTORICAL-ONBASE (11/18/2015) Only the most recent of2 resultswithin the time period is included. 11/18/2015 Historical Provider LAB - CHEMISTRY Danish FROST Performing Organization Address [facility] Co de Phone Number [facility] [address] * FL ESOPHOGRAM (11/17/2015 3:21 PM CDT) Anatomical Region Laterality Modality Chest Other Impressions 11/17/2015 4:57 PM CDT IMPRESSION: No Zenker's diverticulum, as clinically queried. Mild esophageal dysmotility. Small hiatal hernia. No gastroesophageal reflux. Dictated by Federico Kelley (Die Grinder) I, Dr. FRENCH PATEL M.D. have personally reviewed and interpreted this examination/study. This report was electronically signed by FRENCH PATEL M.D. ??on 11/17/2015 4:57 PM . Narrative 11/17/2015 4:57 PM CDT EXAMINATION: Double-contrast esophagram HISTORY: Dysphasia. Status post parathyroidectomy on November 10, 2015. Rule out Zenker's diverticulum COMPARISON: No prior study is available for comparison. FLUOROSCOPY TIME: 114 seconds TECHNIQUE: The patient was given water-soluble contrast followed by thick and thin barium with effervescent crystals to swallow, and multiple fluoroscopic and overhead images were obtained in AP, lateral, and oblique views. FINDINGS: The patient's swallowing function was normal. ??No Zenker's diverticulum is identified. Esophageal contour and caliber are normal. No esophageal mass, ulcer, or stricture is seen. Mildly decreased esophageal motility and occasional tertiary contractions were observed. A small hiatal hernia is present. No gastroesophageal reflux was observed. There was no delay in transit of a 13 mm barium tablet to the stomach. Clips are seen in the neck. Procedure Note French Patel MD - 05/20/2017 EXAMINATION: Double-contrast esophagram HISTORY: Dysphasia. Status post parathyroidectomy on November 10, 2015.Rule out Zenker's diverticulum COMPARISON: No prior study is available for comparison. FLUOROSCOPY TIME: 114 seconds TECHNIQUE: The patient was given water-soluble contrast followed by thick and thinbarium with effervescent crystals to swallow, and multiple fluoroscopicand overhead images were obtained in AP, lateral, and oblique views. FINDINGS: The patient's swallowing function was normal. No Zenker's diverticulum isidentified. Esophageal contour and caliber are normal. No esophageal mass,ulcer, or stricture is seen. Mildly decreased esophageal motility andoccasional tertiary contractions were observed. A small hiatal hernia is present. No gastroesophagealreflux was observed. There was no delay in transit of a 13 mm bariumtablet to the stomach. Clips are seen in the neck. IMPRESSION IMPRESSION: No Zenker's diverticulum, as clinically queried. Mild esophageal dysmotility. Small hiatal hernia. No gastroesophageal reflux. Dictated by Federico Kelley (Die Grinder) I, Dr. FRENCH PATEL M.D. have personally reviewed and interpreted thisexamination/study. This report was electronically signed by FRENCH PATEL M.D. on 11/17/20154:57 PM . Brayan Pryor MD FLUOROSCOPY ORDERABL ES * HEPATITIS SCREEN ACUTE (11/11/2015 4:30 PM CDT) Hepatitis A Virus Antibody IgM Non-react nayeli Non-[facility] Hepatitis B Virus Surface Antigen Non-react nayeli [facility] Hepatitis B Core Virus Antibody IgM Non-react nayeli Non-reac tive [facility] Hepatitis C Antibody Non-react [facility] Comment: Hepatitis C Antibody screen indicates no serologic evidence of past or current infection with Hepatitis C Virus. Patients with unexplained liver disease who are immunocompromised or suspected of having acute Hepatitis C infection may benefit from Nucleic Acid Test (LJ) for Hepatitis C Viral RNA to confirm Hepatitis C status. Blood specimen (specimen) BLOOD SPECIMEN / Unknown 11/11/2015 4:30 PM CDT 11/11/2015 4:40 PM CDT Brayan Pryor MD LAB - CHEMISTRY RASHID INFANTE Performing Organization Address [facility] Co de Phone Number [address] [phone] * (ABNORMAL) PTH POST-OP OR ONLY (11/10/2015 6:13 PM CDT) PTH Post-Operative 105.7(H) See Comment pg/mL [facility] Comment: A decrease in cirulating PTH of 50% or more, ten minutes post-resection, signals successful removal of the abnormally secreting parathyroid tissue. Blood specimen (specimen) BLOOD SPECIMEN / Unknown 11/10/2015 6:13 PM CDT 11/10/2015 6:20 PM CDT Blaine Valverde MD LAB - CHEMISTRY RASHID INFANTE Performing Organization Address [facility] Co de Phone Number [address] [phone] * (ABNORMAL) PTH PRE-OP (BASELINE) OR ONLY (11/10/2015 12:39 PM CDT) PTH Pre-Op (Baseline) 1,599.0(H) 15.0 - 65.0 pg/mL [facility] Blood specimen (specimen) BLOOD SPECIMEN / Unknown 11/10/2015 12:39 PM CDT 11/10/2015 1:03 PM CDT Blaine Valverde MD LAB - CHEMISTRY RASHID INFANTE [facility] Organization Address City/State/ZIP Co de Phone Number [place] [id number] [address] [phone] * CARDIAC CATH PROCEDURE (11/09/2015 12:00 PM CDT) 11/09/2015 12:0 0 PM CDT Narrative Transcriptions Margo Mckinney MD - 11/10/2015 9:[address] [facility] CARDIAC CATHETERIZATION PATIENT: MOY TOBIN MR#: [id number] ADMIT DATE: 11/09/2015 CSN: [id number] PROCEDURE DATE: 11/09/2015 :1955 PHYSICIAN: Margo Mckinney MD ROOM: [facility] REFERRING PHYSICIAN: Margo Mckinney MD PROCEDURES: 1. Left heart catheterization. 2. Selective right and left coronary angiogram. 3. Left ventriculogram. INDICATION: The patient had a cardiac exam done for an abnormal stresstest, which revealed her to have moderate reversible anterior ischemia. CONSENT: The indications, potential complications, and alternativeswere explained to the patient who appeared to understand and indicated this. Opportunity for questions provided. Informed consent was obtained. MEDICATIONS: Versed and fentanyl. DESCRIPTION OF PROCEDURE: With the modified Seldinger technique, a5-Bolivian sheath was placed in the right femoral artery. Catheters were introducedover a flexible guidewire. Hemodynamic measurements were made and pressurerecords were recorded before contrast material was injected. Single plane left ventriculogram was recorded in the 30-degree MULLIGAN position using 36 mL of contrast injected at 12 mL/second to the left ventricular cavity.Following selective coronary catheterization using 5-Bolivian Ilda 4 right and5-Bolivian Ilda 4 left catheter, multiple small injections of contrast were madein the right and left coronary arteries, and angiograms recorded inmultiple views. COMPLETION: Catheters and sheaths were removed. Hemostasis at the catheterization site was obtained by manual pressure. FINDINGS: Left ventriculogram: The left ventricular chamber was notdilated. The anterobasal, anterior apical, inferior, posterobasal, andanterolateral segments showed mild diffuse hypokinesis. Papillary muscles appearednormal. There was no valvular calcification. Ejection fraction was estimated monet around 50%. Coronary dominance: The right coronary artery is dominant as theposterior descending artery entered from this artery. Left main coronary artery: Normal. Left anterior descendin. Proximal LAD: Normal. 2. Mid LAD: 25% stenosis. 3. Distal LAD: Normal. 4. First diagonal: Normal. 5. Second diagonal: Small vessel normal. Left circumflex: 1. Proximal left circumflex: Normal. 2. Mid left circumflex: Normal. 3. Distal left circumflex: Normal. 4. First obtuse marginal: Large vessel, divides into superior andinferior branches, is normal. 5. Second obtuse marginal: Small vessel, normal. 6. Third obtuse marginal: Small vessel, normal. Right coronary artery: 1. Proximal right coronary artery: Normal. 2. Mid right coronary artery: Normal. 3. Distal right coronary artery: Normal. 4. Posterior descending artery: Small vessel, normal. 5. Posterior LV branch: Small vessel, normal. PRESSURES: Aorta 108/56, left ventricular peak systolic 110, and end- diastolic pressure 12. IMPRESSION: 1. Nonobstructive coronary artery disease. 2. Normal left ventricular systolic function. Patient may proceed for parathyroid surgery, which has been scheduledfor tomorrow. MARGO MCKINNEY MD AK/MODL #: [id number] MEDICAL/SURGICAL CARDIAC CATHETERIZATION - DP Margo Mckinney MD CARDIAC SERVICES ORD ERABLES [facility] * CARDIAC ECHOCARDIOGRAM COMPLETE ORDER (03/19/2015) Only the most recent of2 resultswithin the time period is included. Scanned Document ECHO ORDERABLES * (ABNORMAL) OPIATE SCREEN + CONFIRMATION URINE (11/11/2014 8:16 AM CDT) Codeine Unconjugated Negative 10 - 100 ng/mL [facility] (BEAKER) Morphine Free Negative 21 - 65 ng/mL [facility] (BE[facility]) Acetylmorphine Unconjugated Negative Not Estab. ng/mL [facility] ([facility]) Hydromorphone Free Negative 1 - 30 ng/mL [facility] (BEAKER) Hydrocodone Free 3(L) 10 - 100 ng/mL [facility] (BEAKER) Dihydrocodeine Free Negative Not Estab. ng/mL [facility] (BE[facility]ER) Comment: ?Quantitative opiate screen, unconjugated includes: ? codeine, morphine, 6-acetylmorphine, hydromorphone, ? hydrocodone, dihydrocodeine. Blood specimen (specimen) BLOOD SPECIMEN / Unknown 11/11/2014 8:16 AM CDT 11/11/2014 9:16 AM CDT Narrative [facility] ([facility]) - 11/21/2014 11:20 AM CDT Performed at: ??01 - [facility] [address] [place] [address] ??[id number] Professor Of German: Benitez Alonso MD, Phone: ??[phone] Ryland Garcia MD LAB - TOXICOLOGY ORD ERABLES [facility] ([facility]) * HLA ANTIBODY SCREEN LUM CLASS 2 ID (11/11/2014 8:12 AM CDT) Only the most recent of4 resultswithin the time period is included. % PRA 97 [facility] ([facility]) Class 2 LUM Specificity - [facility] ([facility]) Class 2 LUM Test Date 11/27/19 15 [facility] ([facility]) Comment: This test was developed and its performance characteristics determined bythe [facility]. ??It has not been cleared or approved by theU.S. Food and Drug Administration. ??The FDA has determined that suchclearance or approval is not necessary. ?? This test is used for clinicalpurposes. ??It should not be regarded as investigational or for research.This laboratory is certified under the Clinical Laboratory ImprovementAmendments of 1988 (CLIA-88) as qualified to perform high complexityclinical laboratory testing.Performed at: ??[facility], [address] @ [place], [place] ??[id number] Director: Jose De Jesus Pacheco MD, Blood specimen (specimen) BLOOD SPECIMEN / Unknown 11/11/2014 8:12 AM CDT 11/11/2014 9:13 AM CDT Ryland Garcia MD LAB - BLOOD BANK ORD [employer] [facility] ([facility]) * HLA ANTIBODY SCREEN LUM CLASS 1 ID (11/11/2014 8:12 AM CDT) Only the most recent of4 resultswithin the time period is included. Pathologist [facility] % PRA 100 [facility] ([facility]) Class 1 LUM Specificity - [facility] ([facility]) Class 1 LUM Test Date 11/27/19 15 [facility] ([facility]) Comment: This test was developed and its performance characteristics determined bythe [facility]. ??It has not been cleared or approved by theU.S. Food and Drug Administration. ??The FDA has determined that suchclearance or approval is not necessary. ?? This test is used for clinicalpurposes. ??It should not be regarded as investigational or for research.This laboratory is certified under the Clinical Laboratory ImprovementAmendments of 1988 (CLIA-88) as qualified to perform high complexityclinical laboratory testing.Performed at: ??[facility], [address] @ [place], [place] ??[id number] Director: Jose De Jesus Pacheco MD, Blood specimen (specimen) BLOOD SPECIMEN / Unknown 11/11/2014 8:12 AM CDT 11/11/2014 9:14 AM CDT Ryland Garcia MD LAB - BLOOD BANK ORD [email or web address] [facility] ([facility]) * CANNABINOID BLOOD (11/11/2014 8:12 AM CDT) Pathologist [facility] THC Metabolite Negative [facility] ([facility]) Specimen Type SERUM/PLASMA [facility] ([facility]) Comment: This specimen was screened by immunoassay. ??Any positive result is confirmed by gas chromatography with mass spectrometry (GC/MS). ??The following threshold concentrations are used for this analysis: Drug ?Screening ? Confirmation Cannabinoids ?5 ng/ml Tetrahydrocannabinol(THC) ?2 ng/ml Carboxy-THC ?2 ng/ml Blood specimen (specimen) BLOOD SPECIMEN / Unknown 11/11/2014 8:12 AM CDT 11/11/2014 9:15 AM CDT Narrative [facility] ([facility]) - 11/13/2014 3:25 PM CDT Performed at: ??01 - [facility] [address] [place] [address] ??[id number] Professor Of German: Benitez Alonso MD, Phone: ??[phone] Ryland Garcia MD LAB - CHEMISTRY RASHID INFANTE Performing Organization Address [facility]/State/ZIP Co de Phone Number [facility] ([facility]) * COCAINE + METABOLITES BLOOD (11/11/2014 8:12 AM CDT) Cocaine and Metabolites Whole Blood Negative [facility] ([facility]) Specimen Type Comment [facility] ([facility]) Comment: WHOLE BLOOD This specimen was screened by immunoassay. ??Any positive result is confirmed by gas chromatography with mass spectrometry (GC/MS). Thefollowing threshold concentrations are used for this analysis: Drug ?Screening Threshold ?? Confirmation Threshold Cocaine metabolites ??25 ng/ml ??Cocaine ? 30 ng/ml ??Benzoylecgonine ? 30 ng/ml Blood specimen (specimen) BLOOD SPECIMEN / Unknown 11/11/2014 8:12 AM CDT 11/11/2014 9:18 AM CDT Narrative [facility] ([facility]) - 11/17/2014 6:07 AM CDT Performed at: ??01 - [facility] [address] ??[phone] Professor Of German: Benitez Alonso MD, Phone: ??[phone] Ryland Garcia MD LAB - TOXICOLOGY ORD ERABLES [facility] [place]) * VASCULAR LAB ORDER (09/12/2014) Only the most recent of4 resultswithin the time period is included. Anatomical Region Laterality Modality Other Margo Mckinney MD VASCULAR LAB ORDERAB LES * CARDIAC STRESS TEST ORDER (08/08/2013 11:49 PM CDT) Narrative 08/08/2013 11:49 PM CDT Ordered by an unspecified provider. Transcriptions Document, Scanned - 08/08/2013 11:49 PM CDT Scanned Document CARDIAC SERVICES ORD ERABLES * NUC CARDIAC MUGA SCAN (08/01/2013 10:47 AM CDT) Anatomical Region Laterality Modality Chest Nuclear Digisoni cs 08/01/2013 12:1 9 PM CDT Narrative Procedure Note Margo Mckinney MD - 08/01/[id number] [address] [email or web address] Nuclear Myocardial Perfusion Scan Report Pat.Name: MOY TOBIN Pat.ID: [id number] .Date: 08/01/2013 Refer.MD: Margo Mckinney MD Exam Time: 12:19:00 PM Study Type:Nuclear Myocardial Perfusion Scan Age: 6 1955,58Y Sex: FEMALE Sonogrphr: TIMOTHY Martin Reason for Study:CAD Procedures:MUGA Visit ID: [id number] Risk Factors:Diabetes SUMMARY: FINDINGS: The right atrium, right ventricle, pulmonary artery and left atrium are normal in size. The left ventricle is normal in size. The regional wall motion is moderately reduced The global resting left ventricular ejection fraction is decreased at 40 %. SUMMARY: 1. MUGA scan reveals overall contractility is moderately reduced with EF of 40%. Signed 08/01/2013 05:37 PM Margo Mckinney MD, [facility] Transcriptions Document, Scanned - 08/01/2013 5:58 PM CDT Jackelin Lora MD NM ORDERABLES * IP CONSULT TO CARDIOLOGY (07/04/2013 2:43 PM CDT) Only the most recent of2 resultswithin the time period is included. Narrative Margo Mckinney MD - 07/04/2013 2:43 PM CDT Margo Mckinney MD ? 07/04/2013 ??2:43 PM [facility] [place] Margo Mckinney MD, FACC REASON FOR VISIT: PALPITATIONS PROBLEM LIST: Patient Active Problem List Diagnosis ? ? Morbid obesity ? ? ESRD on dialysis ? ? MD (myocardial infarction) ? ? Sleep apnea ? ? CHF (congestive heart failure) ? ? Ulcer ? ? DVT of leg (deep venous thrombosis) ? ? Asthma ? ? Hyperlipemia ? ? HTN (hypertension) ? ? Diabetes ? ? COPD (chronic obstructive pulmonary disease) ? ? Anemia ? ? Arthritis ? ? Pure hypercholesterolemia ? ? History of atrial fibrillation ? ? Hypothyroidism SUBJECTIVE: Moy Tobin is a 57 y.o. female with known history HTN, DM, COPD, anemia, arthritis, elevated cholesterol, AFIB, recurrent SVT, ablation, MD, hypothyroidism, ESRD (MWF), CHF (EF 30-35% 06/03- LIFE VEST), SA (CPAP), DVT, asthma, obesity and bile duct stent who presented to ED with palpitations. ??Pt reports that when she was discharged from the [facility] 06/17/13 with the Life Vest external defibrillator. ??Pt states the device has fired a few times since discharged from hospital, early last week, but has not fired since office visit last 06/27/13. ??Pt does report falling evening 06/27/13, when her wheeled walker collapsed , and that everything went black ??like a curtain came down over my eyes. ??Pt denies any firing from her device. Pt did sustained a hematoma and ecchymosis to R outer thigh from fall. ??Pt has experienced incessant palpitations since with associated hot flashes and chills (no documented fever), chest tightness- like a choking feeling , SOB, occasional dizziness, nausea, decreased appetite and decreased activity tolerance. ??Pt reports palpitations have seen so severe , that she is not able to rest. ??She was able to achieve some relief if she laid flat on the floor with a fan directly on her. ?? Currently, sitting on side of bed, NAD. ??Continues to c/o intermittent palpitations, but no current c/o SOB, dizziness, chest tightness, nausea or hot flashes or chills at present. ??SR 70-80's. ??No documented or apparent runs of SVT or NSVT noted. ?? SBP 100's-120's. TROPS: 0.162, 0.152, BUN 11, PURSE MAKER 6.19, K 3.4, MG 1.8, INR 1.32, WBC 8.0, H&H 9.4/29.2. ? ROS: A 14 point comprehensive review of systems pertinent to the CV question was negative except as described in HPI. ?? Remark: SOCIAL HISTORY: History Social History ? ? Marital Status: Single ??Spouse Name: N/A ??Number of Children: N/A ? ? Years of Education: N/A Social History Main Topics ? ? Smoking status: Never Smoker ? Smokeless tobacco: Never Used ? ? Alcohol Use: No ? ? Drug Use: No ? ? Sexually Active: Not on file Other Topics Concern ? ? Not on file Social History Narrative ? ? No narrative on file FAMILY HISTORY: Family History Problem Relation Age of Onset ? ? Obesity Sister ? Hypertension Mother ? Hypercholesterolemia Mother ? Heart Failure Mother ? Coronary Artery Disease Mother ?CABG ? ? Diabetes Mother ? Osteoarthritis Mother ? Cancer Father ?stomach ? ? Kidney Disease Mother ?CRF- dialysis ? ? Osteoarthritis Sister ? Diabetes Sister ? Coronary Artery Disease Sister ? Hypercholesterolemia Sister ? Hypertension Sister ?? MEDICAL HISTORY: Past Medical History Diagnosis Date ? ? HTN (hypertension) ? Diabetes 2006 ??was on insulin in past, no meds diet controlled since ??02/2010 ? ? COPD (chronic obstructive pulmonary disease) ? Anemia ? Arthritis ?RA- 08/1994, no meds ? ? Pure hypercholesterolemia ? Atrial fibrillation ? Hypothyroidism ? ESRD on dialysis 06/23/2009 ??M-W-F ? ? MD (myocardial infarction) ?2004 ? ? Sleep apnea 02/2002 ??uses CPAP without O2- compliant most nights ? ? CHF (congestive heart failure) 08/1996 ? ? Ulcer 2003 ? ? DVT of leg (deep venous thrombosis) 03/20/2013 ??DVT left leg, superficial right leg ? ? Asthma ? Hyperlipemia new- 2013 ? ? Morbid obesity ?? Remark: SURGICAL HISTORY: Past Surgical History Procedure Date ? ? Hysterectomy ? ? Ablation for atrial fibrillation/flutter 05/21/93 ? ? Cardiac cath 08/2003 ? ? Surgical history of 09/22/09 ??dialysis cath placement in chest ? ? Tmj arthotomy ?1987 ? ? Surgical history of 11/12/09 ??Left Radial Cephalic AV Fistula ? ? Endoscopy, colon, diagnostic ? Other surgery 2010 ??2nd AV fistula, at [place] ? ? A-v fistula revision/repair 03/15/2013 ?Left; ?? REVISION OPEN ARTERIOVENOUS FISTULA ? ? Pr placement, bile duct stent ? bile duct stent ? ? section ?? HOME MEDICATIONS: Prior to Admission medications ?? Medication Sig Start Date End Date Taking? Authorizing Provider FLUoxetine (PROZAC) 10 MG capsule Take 10 mg by mouth once daily. ??Yes Historical Provider, carvedilol (COREG) 6.25 MG tablet Take 1 Tab by mouth 2 times daily with morning and evening meal. 06/27/13 ??Yes Margo Mckinney MD valsartan (DIOVAN) 40 MG tablet Take 1/2 tablet daily 06/27/13 ??Yes Margo Mckinney MD isosorbide-hydralazine (BIDIL) 20-37.5 MG tablet Take 1 Tab by mouth 3 times daily. 06/25/13 ??Yes Margo Mckinney MD warfarin (COUMADIN) 5 MG tablet Take 1 Tab by mouth every evening. 06/14/13 ??Yes Lillie Amaya MD Renal vitamin (RENAPHRO,NEPHROCAPS) 1 MG capsule Take 1 Cap by mouth once daily. ?? Yes Historical Provider, Beclomethasone Dipropionate (QVAR IN) 2 Puffs 2 times daily. With spacer ?? Yes Historical Provider, acetaminophen (TYLENOL) 325 MG tablet Take 2 Tabs by mouth every 8 hours as needed for Fever or Pain. Maximum allowable Acetaminophen amount = 4 Grams (4000 mg) ??/ 24 hours. 03/19/13 ?? Yes Luis Jauregui MD polyethylene glycol 3350 (MIRALAX) packet Take 17 g by mouth once daily. 03/19/13 ??Yes Luis Jauregui MD omeprazole (PRILOSEC) 20 MG capsule Take 20 mg by mouth daily before breakfast. ?? Yes Historical Provider, cinacalcet (SENSIPAR) 30 MG tablet Take 1 Tab by mouth daily with breakfast. 03/04/13 ??Yes Mallory Yung MD lanthanum (FOSRENOL) 500 MG chew tablet Take 1,500 mg by mouth 3 times daily with meals. ?? Yes Historical Provider, aspirin 81 MG chew tablet Take 81 mg by mouth once daily. ?? Yes Historical Provider, levothyroxine (SYNTHROID) 25 MCG tablet Take 25 mcg by mouth. On Aai-Fstv-Ljh-Blpdm-Cnz-Mjl ?Yes Historical Provider, montelukast (SINGULAIR) 10 MG tablet Take 10 mg by mouth at bedtime. ?? Yes Historical Provider, Levalbuterol HCl (XOPENEX IN) Inhale ??by mouth. q 4 hours ? Historical Provider, oxyCODONE (OXY-IR) 5 MG capsule Take 5 mg by mouth every 6 hours as needed. ?Historical Provider, rosuvastatin (CRESTOR) 10 MG tablet Take 10 mg by mouth once daily. ?Historical Provider, levothyroxine (SYNTHROID) 50 MCG tablet Take 50 mcg by mouth. On Monday ? Historical Provider, EXAMINATION: General appearance: Stable, No chest pain, dyspnea ??normal color Neck: No palpable masses, trachea midline without deviation, normal carotid pulses and no increased JVD Extremities: Extremities normal. No deformities, edema, or skin discoloration Chest: Adequate air entry bilaterally No added sounds. Cardiac: PMI normal. No lift/heave. S1, S2 heard normally No S3,S4 or rub. PSM 2/6 mitral area. Abdomen: No tenderness, guarding or rigidity No organomegaly or free fluid. Bowel sounds present. ARMATURE STRAIGHTENER: Alert and oriented. No gross cranial nerve palsy or motor or sensory neurologic deficit. BP 108/54 Pulse 89 Temp 98.2 ??F Resp 17 Wt 232 lb 12.9 oz (105.6 kg) BMI 42.57 kg/m2 No intake or output data in the 24 hours ending 07/04/13 1108 MEDICATIONS FOR CURRENT ENCOUNTER: ?? SCHEDULED MEDICATIONS: ? aspirin chew tablet 81 mg, Oral, QDAY ?? atorvastatin (LIPITOR) tablet 40 mg, Oral, QDAY ?? beclomethasone dipropionate (QVAR) 40 MCG/ACT inhaler 2 Puff, Inhalation, BID ?? carvedilol (COREG) tablet 6.25 mg, Oral, BID WC ?? cinacalcet (SENSIPAR) tablet 30 mg, Oral, QDAY WITH BREAKFAST ?? FLUoxetine (PROzac) capsule 10 mg, Oral, QDAY ?? isosorbide-hydralazine (BIDIL) 20-37.5 MG tablet 1 Tab, Oral, TID ?? lanthanum (FOSRENOL) chew tablet 1,500 mg, Oral, TID WC ?? levalbuterol (XOPENEX) nebulizer solution 0.63 mg, Inhalation, q4h WA ?? levothyroxine (SYNTHROID) tablet 25 mcg, Oral, MON, TUES, WED, THUR, FRI & SAT ?? levothyroxine (SYNTHROID) tablet 50 mcg, Oral, q7 days ?? losartan (COZAAR) tablet 12.5 mg, Oral, QDAY ?? montelukast (SINGULAIR) tablet 10 mg, Oral, AT BEDTIME ?? pantoprazole EC (PROTONIX) tablet 40 mg, Oral, QDAY BEFORE BREAKFAST ?? polyethylene glycol 3350 (MIRALAX) packet 17 g, Oral, QDAY ?? Renal vitamin (RENAPHRO,NEPHROCAPS) capsule 1 Cap, Oral, QDAY ?? warfarin (COUMADIN) tablet 5 mg, Oral, QPM ?? [COMPLETED] aspirin chew tablet 324 mg, Oral, Now ?? CONTINUOUS MEDICATIONS: ? PRN MEDICATIONS: ? 0.9% NaCl injection 2-10 mL, Intracatheter, PRN ?? 0.9% NaCl IV Bolus, Intravenous, PRN ?? oxyCODONE (immediate release) (ROXICODONE) tablet 5 mg, Oral, q6h PRN ?? Component Name 07/04/1311206/16/13 0532 06/14/13 0421 WBC 8.0 7.8 9.8 HGB 9.4* 8.2* 8.8* HCT 29.2* 26.0* 27.8* PLTCOUNT 251 333 352 Component Name 07/04/1311206/16/13 0532 06/14/13 0421 SODIUM 132* 128* 135* POTASSIUM 3.4* 4.2 3.7 CHLORIDE 98 97* 99 CO2 23 28 29 BUN 11 40* 24* CREATININE 6.19* 7.77* 5.02* GLUCOSE 130* 87 106 CALCIUM 9.0 8.5 8.5 8.7 Component Name 07/04/1311206/17/13 0513 06/16/13 0532 PT 14.1* 13.2* 13.7* EK07/03/13 EKG Interp Preliminary Normal sinus rhythm Abnormal QRS-T angle, consider primary T wave abnormality Prolonged QT Abnormal ECG When compared with ECG of 03-JUN-2013 21:19, Vent. rate has decreased BY 80 BPM Patient Active Problem List Diagnosis ? ? Morbid obesity ? ? ESRD on dialysis ? ? MD (myocardial infarction) ? ? Sleep apnea ? ? CHF (congestive heart failure) ? ? Ulcer ? ? DVT of leg (deep venous thrombosis) ? ? Asthma ? ? Hyperlipemia ? ? HTN (hypertension) ? ? Diabetes ? ? COPD (chronic obstructive pulmonary disease) ? ? Anemia ? ? Arthritis ? ? Pure hypercholesterolemia ? ? History of atrial fibrillation ? ? Hypothyroidism Assessment and plan: Palpitations with severe LV dysfunction: Possible ventricular arrhythmias. Has history of SVT also. To be admitted to telemetry. Supplement Pottasium and Magnesium. Continue life vest. Echo with doppler. Procedure Note Margo Mckinney MD - 07/04/2013 11:02 AM CDT [facility] [place] Margo Mckinney MD, FACC REASON FOR VISIT: PALPITATIONS PROBLEM LIST: Patient Active Problem List Diagnosis ? ? Morbid obesity ? ? ESRD on dialysis ? ? MD (myocardial infarction) ? ? Sleep apnea ? ? CHF (congestive heart failure) ? ? Ulcer ? ? DVT of leg (deep venous thrombosis) ? ? Asthma ? ? Hyperlipemia ? ? HTN (hypertension) ? ? Diabetes ? ? COPD (chronic obstructive pulmonary disease) ? ? Anemia ? ? Arthritis ? ? Pure hypercholesterolemia ? ? History of atrial fibrillation ? ? Hypothyroidism SUBJECTIVE: Moy Tobin is a 57 y.o. female with known history HTN, DM, COPD, anemia,arthritis, elevated cholesterol, AFIB, recurrent SVT, ablation, MD,hypothyroidism, ESRD (MWF), CHF (EF 30-35% 06/03- LIFE VEST), SA (CPAP),DVT, asthma, obesity and bile duct stent who presented to ED withpalpitations. Pt reports that when she was [facility] with the Life Vest external defibrillator. Pt states the devicehas fired a few times since discharged from hospital, early last week, buthas not fired since office visit last 06/27/13. Pt does reportfalling evening 06/27/13, when her wheeled walker collapsed , and that everything went black like a curtain came down over my eyes. Ptdenies any firing from her device. Pt did sustained a hematoma andecchymosis to R outer thigh from fall. Pt has experienced incessantpalpitations since with associated hot flashes and chills (nodocumented fever), chest tightness- like a choking feeling , SOB,occasional dizziness, nausea, decreased appetite and decreased activitytolerance. Pt reports palpitations have seen so severe , that she is not able to rest. She was able to achieve some relief if she laid flaton the floor with a fan directly on her. Currently, sitting on side ofbed, NAD. Continues to c/o intermittent palpitations, but no current c/oSOB, dizziness, chest tightness, nausea or hot flashes or chills atpresent. SR 70-80's. No documented or apparent runs of SVT or NSVTnoted. SBP 100's-120's. TROPS: 0.162, 0.152, BUN 11, PURSE MAKER 6.19, K 3.4, MG1.8, INR 1.32, WBC 8.0, H&H 9.4/29.2. ROS: A 14 point comprehensive review of systems pertinent to the CV questionwas negative except as described in HPI. Remark: SOCIAL HISTORY: History Social History ? ? Marital Status: Single Spouse Name: N/A Number of Children: N/A ? ? Years of Education: N/A Social History Main Topics ? ? Smoking status: Never Smoker ? ? Smokeless tobacco: Never Used ? ? Alcohol Use: No ? ? Drug Use: No ? ? Sexually Active: Not on file Other Topics Concern ? ? Not on file Social History Narrative ? ? No narrative on file FAMILY HISTORY: Family History Problem Relation Age of Onset ? ? Obesity Sister ? ? Hypertension Mother ? ? Hypercholesterolemia Mother ? ? Heart Failure Mother ? ? Coronary Artery Disease Mother CABG ? ? Diabetes Mother ? ? Osteoarthritis Mother ? ? Cancer Father stomach ? ? Kidney Disease Mother CRF- dialysis ? ? Osteoarthritis Sister ? ? Diabetes Sister ? ? Coronary Artery Disease Sister ? ? Hypercholesterolemia Sister ? ? Hypertension Sister MEDICAL HISTORY: Past Medical History Diagnosis Date ? ? HTN (hypertension) ? ? Diabetes 2006 was on insulin in past, no meds diet controlled since 02/2010 ? ? COPD (chronic obstructive pulmonary disease) ? ? Anemia ? ? Arthritis RA- 08/1994, no meds ? ? Pure hypercholesterolemia ? ? Atrial fibrillation ? ? Hypothyroidism ? ? ESRD on dialysis 06/23/2009-W- ? ? MD (myocardial infarction) 2003 ? ? Sleep apnea 02/2002 uses CPAP without O2- compliant most nights ? ? CHF (congestive heart failure) 08/1996 ? ? Ulcer 2003 ? ? DVT of leg (deep venous thrombosis) 03/20/2013 DVT left leg, superficial right leg ? ? Asthma ? ? Hyperlipemia - 2013 ? ? Morbid obesity Remark: SURGICAL HISTORY: Past Surgical History Procedure Date ? ? Hysterectomy ? ? Ablation for atrial fibrillation/flutter 05/21/93 ? ? Cardiac cath 08/2003 ? ? Surgical history of 09/22/09 dialysis cath placement in chest ? ? Tmj arthotomy 1987 ? ? Surgical history of 11/12/09 Left Radial Cephalic AV Fistula ? ? Endoscopy, colon, diagnostic ? ? Other surgery 2010 03 AV fistula, at [place] ? ? A-v fistula revision/repair 03/15/2013 Left; REVISION OPEN ARTERIOVENOUS FISTULA ? ? Pr placement, bile duct stent bile duct stent ? ? section HOME MEDICATIONS: Prior to Admission medications Medication Sig Start Date End Date Taking? Authorizing Provider FLUoxetine (PROZAC) 10 MG capsule Take 10 mg by mouth once daily. YesHistorical Provider, carvedilol (COREG) 6.25 MG tablet Take 1 Tab by mouth 2 times daily withmorning and evening meal. 06/27/13 Yes Margo Mckinney MD valsartan (DIOVAN) 40 MG tablet Take 1/2 tablet daily 06/27/13 Yes MD Javy isosorbide-hydralazine (BIDIL) 20-37.5 MG tablet Take 1 Tab by mouth 3times daily. 06/25/13 Yes Margo Mckinney MD warfarin (COUMADIN) 5 MG tablet Take 1 Tab by mouth every evening. 06/14/13Yes Lillie Amaya MD Renal vitamin (RENAPHRO,NEPHROCAPS) 1 MG capsule Take 1 Cap by mouth oncedaily. Yes Historical Provider, Beclomethasone Dipropionate (QVAR IN) 2 Puffs 2 times daily. With spacerYes Historical Provider, acetaminophen (TYLENOL) 325 MG tablet Take 2 Tabs by mouth every 8 hoursas needed for Fever or Pain. Maximum allowable Acetaminophen amount = 4Grams (4000 mg) / 24 hours. 03/19/13 Yes Luis Jauregui MD polyethylene glycol 3350 (MIRALAX) packet Take 17 g by mouth once daily.03/19/13 Yes Luis Jauregui MD omeprazole (PRILOSEC) 20 MG capsule Take 20 mg by mouth daily beforebreakfast. Yes Historical Provider, cinacalcet (SENSIPAR) 30 MG tablet Take 1 Tab by mouth daily withbreakfast. 03/04/13 Yes Mallory Yung MD lanthanum (FOSRENOL) 500 MG chew tablet Take 1,500 mg by mouth 3 timesdaily with meals. Yes Historical Provider, aspirin 81 MG chew tablet Take 81 mg by mouth once daily. Yes HistoricalProviMD litzy levothyroxine (SYNTHROID) 25 MCG tablet Take 25 mcg by mouth. -[id number] Yes Historical Provider, montelukast (SINGULAIR) 10 MG tablet Take 10 mg by mouth at bedtime. YesHistorical Provider, Levalbuterol HCl (XOPENEX IN) Inhale by mouth. q 4 hours HistoricalProMD loi oxyCODONE (OXY-IR) 5 MG capsule Take 5 mg by mouth every 6 hours asneeded. Historical Provider, rosuvastatin (CRESTOR) 10 MG tablet Take 10 mg by mouth once daily.Historical Provider, levothyroxine (SYNTHROID) 50 MCG tablet Take 50 mcg by mouth. On MondayHistorical Provider, EXAMINATION: General appearance: Stable, No chest pain, dyspnea normal color Neck: No palpable masses, trachea midline without deviation, normalcarotid pulses and no increased JVD Extremities: Extremities normal. No deformities, edema, or skindiscoloration Chest: Adequate air entry bilaterally No added sounds. Cardiac: PMI normal. No lift/heave. S1, S2 heard normally No S3,S4 or rub. PSM 2/6 mitral area. Abdomen: No tenderness, guarding or rigidity No organomegaly or free fluid. Bowel sounds present. ARMATURE STRAIGHTENER: Alert and oriented. No gross cranial nerve palsy or motor or sensory neurologic deficit. BP 108/54 Pulse 89 Temp 98.2 ??F Resp 17 Wt 232 lb 12.9 oz (105.6kg) BMI 42.57 kg/m2 No intake or output data in the 24 hours ending 07/04/13 1108 MEDICATIONS FOR CURRENT ENCOUNTER: ?? SCHEDULED MEDICATIONS: ?? aspirin chew tablet 81 mg, Oral, QDAY ?? atorvastatin (LIPITOR) tablet 40 mg, Oral, QDAY ?? beclomethasone dipropionate (QVAR) 40 MCG/ACT inhaler 2 Puff,Inhalation, BID ?? carvedilol (COREG) tablet 6.25 mg, Oral, BID WC ?? cinacalcet (SENSIPAR) tablet 30 mg, Oral, QDAY WITH BREAKFAST ?? FLUoxetine (PROzac) capsule 10 mg, Oral, QDAY ?? isosorbide-hydralazine (BIDIL) 20-37.5 MG tablet 1 Tab, Oral, TID ?? lanthanum (FOSRENOL) chew tablet 1,500 mg, Oral, TID WC ?? levalbuterol (XOPENEX) nebulizer solution 0.63 mg, Inhalation, q4h WA ?? levothyroxine (SYNTHROID) tablet 25 mcg, Oral, MON, TUES, WED, THUR, FRI& SAT ?? levothyroxine (SYNTHROID) tablet 50 mcg, Oral, q7 days ?? losartan (COZAAR) tablet 12.5 mg, Oral, QDAY ?? montelukast (SINGULAIR) tablet 10 mg, Oral, AT BEDTIME ?? pantoprazole EC (PROTONIX) tablet 40 mg, Oral, QDAY BEFORE BREAKFAST ?? polyethylene glycol 3350 (MIRALAX) packet 17 g, Oral, QDAY ?? Renal vitamin (RENAPHRO,NEPHROCAPS) capsule 1 Cap, Oral, QDAY ?? warfarin (COUMADIN) tablet 5 mg, Oral, QPM ?? [COMPLETED] aspirin chew tablet 324 mg, Oral, Now ?? CONTINUOUS MEDICATIONS: ?? PRN MEDICATIONS: ?? 0.9% NaCl injection 2-10 mL, Intracatheter, PRN ?? 0.9% NaCl IV Bolus, Intravenous, PRN ?? oxyCODONE (immediate release) (ROXICODONE) tablet 5 mg, Oral, q6h PRN ?? Component Name 07/04/13 0113 06/16/13 0532 06/14/13 0421 WBC 8.0 7.8 9.8 HGB 9.4* 8.2* 8.8* HCT 29.2* 26.0* 27.8* PLTCOUNT 251 333 352 Component Name 07/04/13 0113 06/16/13 0532 06/14/13 0421 SODIUM 132* 128* 135* POTASSIUM 3.4* 4.2 3.7 CHLORIDE 98 97* 99 CO2 23 28 29 BUN 11 40* 24* CREATININE 6.19* 7.77* 5.02* GLUCOSE 130* 87 106 CALCIUM 9.0 8.5 8.5 8.7 Component Name 07/04/13 0113 06/17/13 0513 06/16/13 0532 PT 14.1* 13.2* 13.7* EK07/03/13 EKG Interp Preliminary Normal sinus rhythm Abnormal QRS-T angle, consider primary T wave abnormality Prolonged QT Abnormal ECG When compared with ECG of 03-JUN-2013 21:19, Vent. rate has decreased BY 80 BPM Patient Active Problem List Diagnosis ? ? Morbid obesity ? ? ESRD on dialysis ? ? MD (myocardial infarction) ? ? Sleep apnea ? ? CHF (congestive heart failure) ? ? Ulcer ? ? DVT of leg (deep venous thrombosis) ? ? Asthma ? ? Hyperlipemia ? ? HTN (hypertension) ? ? Diabetes ? ? COPD (chronic obstructive pulmonary disease) ? ? Anemia ? ? Arthritis ? ? Pure hypercholesterolemia ? ? History of atrial fibrillation ? ? Hypothyroidism Assessment and plan: Palpitations with severe LV dysfunction: Possible ventricular arrhythmias.Has history of SVT also. To be admitted to telemetry. Supplement Pottasiumand Magnesium. Continue life vest. Echo with doppler. Jackelin Lora MD INPATIENT CONSULT ORDERABLES * CK + CKMB PANEL (07/04/2013 1:13 AM CDT) CK 144 35 - 232 U/L 07/04/2013 1:41 AM CDT [facility] CK-MB 3.7 0.0 - 5.0 ng/mL 07/04/2013 1:41 AM CDT [facility] Blood BLOOD SPECIMEN / Unknown 07/04/2013 1:13 AM CDT 07/04/2013 1:17 AM CDT Richi Buenrostro MD LAB - CHEMISTRY ORDERABLES Performing Organization Address City/[facility]/ZIP Co de Phone Number [facility] [address] [place] [address] * AMBULATORY OXIMETRY (06/14/2013 12:10 PM CDT) Narrative Esperanza Campbell RCP - 06/14/2013 12:10 PM CDT Esperanza Campbell RCP ? 06/14/2013 12:10 PM Attempted to get patient multiple times yesterday and today for ambulatory oximetry, patient at dialysis, getting other testing. ?? Spoke to JAMESON Hall to attempt to get physical therapy to document ambulation pulse ox during their visit with paticarmen today. Procedure Note Esperanza Campbell RCP - 06/14/2013 12:08 PM CDT Attempted to get patient multiple times yesterday and today for ambulatoryoximetry, patient at dialysis, getting other testing. Spoke to JAMESON Bains attempt to get physical therapy to document ambulation pulse ox duringtheir visit with paticarmen today. Lillie Amaya MD RESPIRATORY THERAPY ORDERABLES * TRANSFUSE RED BLOOD CELL UNIT(S) (06/13/2013 1:38 PM CDT) Abigail Sumner MD NURSING - BLOOD PROD TRANSFUSION * TRANSFUSE RED BLOOD CELL UNIT(S) (06/13/2013 1:22 PM CDT) Abigail Sumner MD NURSING - BLOOD PROD TRANSFUSION * OCCULT BLOOD FECES (06/12/2013 4:36 PM CDT) Only the most recent of2 resultswithin the time period is included. Occult Blood Negative Negative 06/12/2013 5:20 PM CDT [facility] Stool STOOL SPECIMEN / Unknown 06/12/2013 4:36 PM CDT 06/12/2013 4:39 PM CDT Nohemi Strong MD LAB - BODY FLUID ORD ERABLES Performing Organization Address City/[facility]/ZIP Co de Phone Number [facility] [address] [place] [address] * TRANSFUSE RED BLOOD CELL UNIT(S) (06/10/2013 8:20 PM CDT) Nohemi Strong MD NURSING - BLOOD PROD TRANSFUSION * (ABNORMAL) CBC W MANUAL DIFFERENTIAL (06/10/2013 4:17 AM CDT) Only the most recent of2 resultswithin the time period is included. WBC 14.4(H) 4.4 - 10.7 x10^9/L 06/10/2013 4:36 AM CDT [facility] RBC 2.27(L) 3.80 - 5.20 x10^12/L 06/10/2013 4:36 AM CDT [facility] Hemoglobin 6.7(L) 12.0 - 15.6 gm/dL 06/10/2013 4:36 AM CDT [facility] Hematocrit 22.1(L) 35.9 - 45.5 % 06/10/2013 4:36 AM CDT [facility] MCV 97.4 80.7 - 98.3 fl 06/10/2013 4:36 AM CDT [facility] MCH 29.5 26.7 - 34.0 pg 06/10/2013 4:36 AM CDT [facility] MCHC 30.3(L) 30.8 - 35.9 gm/dL 06/10/2013 4:36 AM CDT [facility] RDW-CV 15.7(H) 12.1 - 14.9 % 06/10/2013 4:36 AM CDT [facility] MPV 9.8 9.4 - 12.9 fl 06/10/2013 4:36 AM CDT [facility] Platelet Count 390 153 - 416 x10^9/L 06/10/2013 4:36 AM CDT [facility] Blood BLOOD SPECIMEN / Unknown 06/10/2013 4:17 AM CDT 06/10/2013 4:23 AM CDT Tarsha Caruso MD LAB - HEMATOLOGY ORD ERABLES [facility] [address] [place] [address] * BLOOD TYPE VERIFICATION (06/10/2013 4:17 AM CDT) Only the most recent of2 resultswithin the time period is included. Pathologist [facility] ABO O 06/10/2013 5:49 PM CDT [facility] Rh Type Negative 06/10/2013 5:49 PM CDT [facility] Miscellaneous samples (specimen) BLOOD SPECIMEN / Unknown 06/10/2013 4:17 AM CDT 06/10/2013 1:58 PM CDT Nohemi Strong MD LAB - BLOOD BANK ORD ERABLES Performing Organization Address City/[facility]/ZIP Co de Phone Number [facility] * (ABNORMAL) CALCIUM IONIZED BLOOD POC VENOUS (06/09/2013 5:29 AM CDT) Only the most recent of6 resultswithin the time period is included. [facility] Calcium Ionized Venous POCT 1.08(L) 1.12 - 1.32 mmol/L 06/09/2013 5:33 AM CDT [facility] Sample iSTAT VENOUS 06/09/2013 5:33 AM CDT [facility] Blood BLOOD SPECIMEN / Unknown 06/09/2013 5:29 AM CDT 06/09/2013 5:33 AM CDT Nohemi Strong MD LAB - POINT OF CARE ORDERABLES Performing Organization Address [facility] de Phone Number [facility] [address] [place] [address] * (ABNORMAL) CALCIUM IONIZED BLOOD (06/09/2013 3:07 AM CDT) Only the most recent of3 resultswithin the time period is included. [facility] Calcium Ionized 1.08(L) 1.12 - 1.32 mmol/L 06/09/2013 5:45 AM CDT [facility] Blood BLOOD SPECIMEN / Unknown 06/09/2013 3:07 AM CDT 06/09/2013 3:07 AM CDT Abigail Sumner MD LAB - CHEMISTRY RASHID INFANTE Performing Organization Address City/[facility] Co de Phone Number [facility] [address] [place] [address] * BLOOD GASES ARTERIAL POCT (06/08/2013 10:45 AM CDT) Only the most recent of17 resultswithin the time period is included. Comment Notification Only - See Separate Report 06/08/2013 12:00 PM [facility] Blood BLOOD SPECIMEN / Unknown 06/08/2013 10:45 AM CDT 06/08/2013 10:45 AM CDT Tarsha Caruso MD LAB - BLOOD GASES OR DERABLES [facility] [address] [place] [address] * (ABNORMAL) BLOOD GASES ART (ISTAT) (06/08/2013 10:40 AM CDT) Only the most recent of12 resultswithin the time period is included. pH Arterial POCT 7.36 7.35 - 7.45 pH 06/08/2013 10:43 AM T [facility] pCO2 Arterial 47.6(H) 32 - 43 mmHg 06/08/2013 10:43 AM T [facility] pO2 Arterial 106(H) 72 - 104 mmHg 06/08/2013 10:43 AM T [facility] HCO3 Arterial POCT 26.6(H) 22 - 26 mmol/L 06/08/2013 10:43 AM T [facility] BE Arterial 1 -2 - 2 mmol/L 06/08/2013 10:43 AM [facility] TCO2 Arterial Calc POCT 28 22 - 29 mmol/L 06/08/2013 10:43 AM T [facility] O2 Saturation Arterial 98 90 - 100 % 06/08/2013 10:43 AM T [facility] Mode PS 06/08/2013 10:43 AM T [facility] PEEP 5 06/08/2013 10:43 AM [facility] Pressure Support 5 06/08/2013 10:43 AM T [facility] Site R Radial 06/08/2013 10:43 AM T [facility] Justino's Test POS/PASS 06/08/2013 10:43 AM T [facility] Treatment Delivery Method VENT 06/08/2013 10:43 AM T [facility] FI O2 40 % 06/08/2013 10:43 AM [facility] Sample iSTAT ARTERI 06/08/2013 10:43 AM CDT [facility] PT iSTAT [id number] 06/08/2013 10:43 AM CDT [facility] Device 06/08/2013 10:43 AM CDT [facility] Photovoltaic Technician ID [id number] 06/08/2013 10:43 AM CDT [facility] Blood ARTERIAL BLOOD SPECIMEN / Unknown 06/08/2013 10:40 AM CDT 06/08/2013 10:43 AM CDT Nohemi Strong MD LAB - POINT OF CARE ORDERABLES [facility] [address] [place] [address] * (ABNORMAL) BLOOD GASES ART + LYTES GLU CA+ HH (ISTAT) (06/08/2013 5:01 AM CDT) Only the most recent of3 resultswithin the time period is included. pH Arterial POCT 7.36 7.35 - 7.45 pH 06/08/2013 5:20 AM CDT [facility] pCO2 Arterial 49.4(H) 32 - 43 mmHg 06/08/2013 5:20 AM T [facility] pO2 Arterial 104 72 - 104 mmHg 06/08/2013 5:20 AM T [facility] HCO3 Arterial POCT 27.8(H) 22 - 26 mmol/L 06/08/2013 5:20 AM T [facility] BE Arterial 2 -2 - 2 mmol/L 06/08/2013 5:20 AM T [facility] TCO2 Arterial Calc POCT 29 22 - 29 mmol/L 06/08/2013 5:20 AM T [facility] O2 Saturation Arterial 98 90 - 100 % 06/08/2013 5:20 AM T [facility] Sodium Arterial 135(L) 136 - 145 mmol/L 06/08/2013 5:20 AM T [facility] Potassium Arterial 3.9 3.5 - 5.1 mmol/L 06/08/2013 5:20 AM T [facility] Calcium Ionized Arterial POCT 1.12 1.12 - 1.32 mmol/L 06/08/2013 5:20 AM T [facility] Glucose Arterial POCT 154(H) 74 - 106 mg/dL 06/08/2013 5:20 AM CDT [facility] Hemoglobin Arterial POCT 9.2(L) 12.0 - 15.6 g/dL 06/08/2013 5:20 AM CDT [facility] Hematocrit Arterial POCT 27.0(L) 35.9 - 45.5 %PCV 06/08/2013 5:20 AM CDT [facility] Mode PRVC 06/08/2013 5:20 AM CDT [facility] Respiratory Rate 15 06/09/19 14 5:20 AM CDT [facility] PEEP 5 06/08/2013 5:20 AM CDT [facility] Site R Radial 06/08/2013 5:20 AM CDT [facility] Justino's Test POS/PASS 06/08/2013 5:20 AM CDT [facility] Treatment Delivery Method VENT 06/08/2013 5:20 AM CDT [facility] FI O2 40 % 06/08/2013 5:20 AM CDT [facility] Sample iSTAT ARTERI 06/08/2013 5:20 AM CDT [facility] PT iSTAT [id number] 06/08/2013 5:20 AM CDT [facility] VT ISTAT 380 06/08/2013 5:20 AM CDT [facility] CPB iSTAT No 06/08/2013 5:20 AM CDT [facility] Blood ARTERIAL BLOOD SPECIMEN / Unknown 06/08/2013 5:01 AM CDT 06/08/2013 5:20 AM CDT Nohemi Strong MD LAB - POINT OF CARE ORDERABLES Performing Organization Address City/State/[facility] Co de Phone Number [facility] [address] [place] [address] * CT THORAX ABDOMEN PELVIS W CONT (06/04/2013 6:24 PM CDT) Anatomical Region Laterality Modality Chest, Abdomen, Pelvis Computed Tomography 06/04/2013 6:27 PM CDT Impressions 06/04/2013 6:31 PM CDT Bilateral lung infiltration and bilateral lower lobe consolidation Cardiomegaly CT abdomen: Low-attenuation cystic lesion is seen in the dome of the liver measuring 10 mm. In the left lobe of the liver there is a 10 mm hypodense presumed cyst as well. Gallstones are identified. The spleen, pancreas, and adrenal glands show no acute abnormalities. Both kidneys are atrophic. There is no obstructive uropathy. There is no abdominal aortic aneurysm. No bowel obstruction or free air is demonstrated. CT pelvis: The appendix appears unremarkable. There is diverticulosis of the descending colon and sigmoid colon without gross pericolonic inflammatory changes. Urinary bladder is only partially distended. Impression: Atrophic kidneys Cholelithiasis Diverticulosis. Narrative 06/04/2013 6:[address] thorax with contrast CT abdomen with contrast CT pelvis with contrast Indication: chest pain, abdominal pain, sepsis Technique: 2 mm axial images through the thorax with intravenous contrast followed by 5 mm images through the abdomen and pelvis with oral and intravenous contrast. Comparison: None. Findings Endotracheal tube ends at just above the level of the pablo. There is a right central venous catheter ending in the right atrium is present. Patchy groundglass infiltration is present bilaterally. There is also bibasilar consolidation and atelectasis. There is no pneumothorax. No bulky mediastinal, hilar or axillary lymphadenopathy is present. There is a nasogastric tube. Procedure Note Ramon Lopez MD - 06/04/2013 CT thorax with contrast CT abdomen with contrast CT pelvis with contrast Indication: chest pain, abdominal pain, sepsis Technique: 2 mm axial images through the thorax with intravenous contrast followed by 5 mm images through the abdomen and pelvis with oral and intravenous contrast. Comparison: None. Findings Endotracheal tube ends at just above the level of the pablo. There is a right central venous catheter ending in the right atrium is present. Patchy groundglass infiltration is present bilaterally. There is also bibasilar consolidation and atelectasis. There is no pneumothorax. No bulky mediastinal, hilar or axillary lymphadenopathy is present. There is a nasogastric tube. IMPRESSION Bilateral lung infiltration and bilateral lower lobe consolidation Cardiomegaly CT abdomen: Low-attenuation cystic lesion is seen in the dome of the liver measuring 10 mm. In the left lobe of the liver there is a 10 mm hypodense presumed cyst as well. Gallstones are identified. The spleen, pancreas, and adrenal glands show no acute abnormalities. Both kidneys are atrophic. There is no obstructive uropathy. There is no abdominal aortic aneurysm. No bowel obstruction or free air is demonstrated. CT pelvis: The appendix appears unremarkable. There is diverticulosis of the descending colon and sigmoid colon without gross pericolonic inflammatory changes. Urinary bladder is only partially distended. Impression: Atrophic kidneys Cholelithiasis Diverticulosis. Brianna Hunt DO CT ORDERABLES * ECHOCARDIOGRAM TRANSESOPHAGEAL (06/04/2013 12:00 PM CDT) 06/04/2013 12:0 0 PM CDT Narrative Transcriptions Margo Mckinney MD - 06/04/2013 7:[address] [facility] TRANSESOPHAGEAL ECHOCARDIOGRAPHY REPORT PATIENT: MOY TOBIN MR#: [id number] ADMIT DATE: 06/01/2013 CSN: [id number] DATE OF SERVICE: 06/04/2013 :1955 REFERRING PHYSICIAN: CURLY LACY ROOM: [place] [address] ADMIT DATE: 06/01/2013 INDICATIONS: The patient had transesophageal echocardiogram done for evaluation of septicemia, possible endocarditis and congestive heartfailure. PROCEDURE: The procedure was done in the intensive care unit with thepatient in a fasting state. The patient was already sedated and intubated priorto the procedure. An Omniplane probe was used and the heart viewed in the esophagus and stomach in multiple views. During the procedure,continuous pulse oximetry and blood pressure monitoring was done. The patient was monitored until the effect of sedation had worn off. The patienttolerated the procedure well. There were no complications. FINDINGS: Left ventricle was dilated and showed moderate decrease insystolic function. Left ventricular ejection fraction was estimated to be [id number]%- 35%. There was evidence of left ventricular hypertrophy. Left atriumwas moderately dilated. The aortic root and the right-sided chambers werewithin normal limits. Mitral valve appeared normal. Aortic valve was sclerosed,but it did not show significant stenosis. Tricuspid valve was normal.Pulmonic valve was normal. Color Doppler interrogation revealed the presence ofmild mitral regurgitation, mild tricuspid regurgitation. Left atrial appendagewas normal. No evidence of thrombus was noted. Pulmonary veins showednormal flow pattern. The interatrial septum was mobile. There was no evidenceof atrial septal defect and bubble study revealed presence of small patent foramen ovale. Ascending and descending aorta showed mild plaquing.The pericardium was normal. No evidence of endocarditis is noted on this transesophagealechocardiogram. MARGO MCKINNEY MD [place]/GEORGIANAL #: [id number] TRANSESOPHAGEAL ECHOCARDIOGRAPHY REPORT - DP Nohemi Strong MD ECHO ORDERABLES [facility] * (ABNORMAL) HEPATIC FUNCTION PANEL (06/04/2013 2:45 AM CDT) [facility] Alkaline Phosphatase 127(H) 38 - 126 U/L 06/04/2013 12:52 PM CDT [facility] ALT 33 12 - 78 U/L 06/04/2013 12:52 PM CDT [facility] AST 129(H) 5 - 40 U/L 06/04/2013 12:52 PM CDT [facility] Protein Total 8.4(H) 6.4 - 8.2 gm/dL 06/04/2013 12:52 PM CDT [facility] [facility] Albumin 3.3(L) 3.4 - 5.0 gm/dL 06/04/2013 12:52 PM CDT [facility] Bilirubin Total 2.1(H) 0.2 - 1.0 mg/dL 06/04/2013 12:52 PM CDT [facility] Bilirubin Direct 1.4(H) 0 - 0.3 mg/dL 06/04/2013 12:52 PM CDT [facility] Blood BLOOD SPECIMEN / Unknown 06/04/2013 2:45 AM CDT 06/04/2013 12:34 PM CDT Lorene Mccullough APRN-COMPUTER INFORMATION SYSTEMS PROFESSOR LAB - CHEMI STRY ORDERABLES [facility] [address] [place] [address] * T4 TOTAL (06/03/2013 10:51 PM CDT) [facility] T4 Total 8.2 4.7 - 13.3 ug/dL 06/03/2013 11:21 PM CDT [facility] Blood BLOOD SPECIMEN / Unknown 06/03/2013 10:51 PM CDT 06/03/2013 10:54 PM CDT Parrish Armas MD LAB - CHEMISTRY RASHID INFANTE [facility] Organization Address City/State/ZIP Co de Phone Number [facility] [address] [place] [address] * VAS LEFT ARTERIAL DUPLEX UE (DIALYSIS / GRAFTS / FISTULAS) (06/03/2013 11:44 AM CDT) Anatomical Region Laterality Modality Ultrasound 06/03/2013 11:1 8 AM CDT Narrative Procedure Note 06/03/[address] [address] Upper Extremity Arterial Ultrasound Report Pat.Name: MOY TOBIN Pat.ID: [id number] St.Date: 06/03/2013 Exam Time: 11:18:00 AM Study Type:UE Arterial Age: 6 1955,57Y Sex: FEMALE Sonogrphr: Malik Hogan RVT Pat. Stat.:Inpatient Room: 319 Reason for Study:Infection AV fistula, NOCI History / Clinical:Hypertension, Diabetes, Atrial fibrillation, COPD, Myocardial infarction, Anemia, ESRD Procedures:Upper Extremity Arterial Duplex - Left Visit ID: [id number] SUMMARY: Patent L AVF FINDINGS: Procedure: B-mode imaging, color flow Doppler and spectral analysis were used to evaluate the AV fistula in the forearm of the left upper extremity. Study Quality: This study is of adequate technical quality. 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 The cephalic vein of the forearm appears to be basilic vein driven. Signed 06/03/2013 03:51 PM Thuan Gilliam MD Transcriptions Document, Scanned - 06/03/2013 3:52 PM CDT Nohemi Strong MD VASCULAR LAB ORDERAB LES * BLOOD GAS ART+LACTATE POC NOTIFICATION (06/01/2013 2:59 PM CDT) Comment Notification Only - See Separate Report 06/01/2013 4:00 PM CDT [facility] Blood BLOOD SPECIMEN / Unknown 06/01/2013 2:59 PM CDT 06/01/2013 2:59 PM CDT Curly Lacy MD LAB - BLOOD GASES OR DERABLES Performing Organization Address [facility] Co de Phone Number [facility] [address] [place] [address] * LACTIC ACID BLOOD POC ARTERIAL (06/01/2013 7:50 AM CDT) Lactate iSTAT Arterial POCT 1.03 0.36 - 1.25 mmol/L 06/01/2013 8:41 AM CDT [facility] Sample iSTAT ARTERI 06/01/2013 8:41 AM CDT [facility] Blood ARTERIAL BLOOD SPECIMEN / Unknown 06/01/2013 7:50 AM CDT 06/01/2013 8:41 AM CDT Curly Lacy MD LAB - POINT OF CARE ORDERABLES Performing Organization Address [facility] de Phone Number [facility] [address] [place] [address] * XR FEMUR 2 VW LEFT (03/29/2013 6:24 PM HEARING AID FITTER) Anatomical Region Laterality Modality Lower Extremity Radiographic Evan ging 03/29/2013 6:27 PM HEARING AID FITTER Impressions 03/29/2013 6:29 PM HEARING AID FITTER No displaced fracture or dislocation is identified. There is contrast filled loop of bowel overlying the left pelvis which may represent a herniated loop of bowel. Recommend focal physical examination. Narrative 03/29/2013 6:29 PM HEARING AID FITTER Two-view is of the left femur and multiple views of the left hip INDICATION: Left femoral pain with no known injury COMPARISON: None FINDING:Multiple views of the left femur demonstrate no cortical irregularity or displaced fracture. Limited views of the knee and hip are unremarkable. There is contrast enhanced bowel overlying the left pelvis. Single view of the left hip demonstrates no displaced fracture or dislocation, but this is limited secondary to single view only there is a contrast-filled loop of bowel which projects over the left pelvis. Procedure Note Thuan Cortés MD - 03/29/2013 Two-view is of the left femur and multiple views of the left hip INDICATION: Left femoral pain with no known injury COMPARISON: None FINDING:Multiple views of the left femur demonstrate no cortical irregularity or displaced fracture. Limited views of the knee and hip are unremarkable. There is contrast enhanced bowel overlying the left pelvis. Single view of the left hip demonstrates no displaced fracture or dislocation, but this is limited secondary to single view only there is a contrast-filled loop of bowel which projects over the left pelvis. IMPRESSION No displaced fracture or dislocation is identified. There is contrast filled loop of bowel overlying the left pelvis which may represent a herniated loop of bowel. Recommend focal physical examination. Mallory Yung MD DIAGNOSTIC IMAGING O RDERABLES * XR HIP 1 VW LEFT (03/29/2013 6:24 PM HEARING AID FITTER) Anatomical Region Laterality Modality Pelvis, Lower Extremity Radiogra [facility] 03/29/2013 6:27 PM HEARING AID FITTER Impressions 03/29/2013 6:29 PM HEARING AID FITTER No displaced fracture or dislocation is identified. There is contrast filled loop of bowel overlying the left pelvis which may represent a herniated loop of bowel. Recommend focal physical examination. Narrative 03/29/2013 6:29 PM HEARING AID FITTER Two-view is of the left femur and multiple views of the left hip INDICATION: Left femoral pain with no known injury COMPARISON: None FINDING:Multiple views of the left femur demonstrate no cortical irregularity or displaced fracture. Limited views of the knee and hip are unremarkable. There is contrast enhanced bowel overlying the left pelvis. Single view of the left hip demonstrates no displaced fracture or dislocation, but this is limited secondary to single view only there is a contrast-filled loop of bowel which projects over the left pelvis. Procedure Note Thuan Cortés MD - 03/29/2013 Two-view is of the left femur and multiple views of the left hip INDICATION: Left femoral pain with no known injury COMPARISON: None FINDING:Multiple views of the left femur demonstrate no cortical irregularity or displaced fracture. Limited views of the knee and hip are unremarkable. There is contrast enhanced bowel overlying the left pelvis. Single view of the left hip demonstrates no displaced fracture or dislocation, but this is limited secondary to single view only there is a contrast-filled loop of bowel which projects over the left pelvis. IMPRESSION No displaced fracture or dislocation is identified. There is contrast filled loop of bowel overlying the left pelvis which may represent a herniated loop of bowel. Recommend focal physical examination. Mallory Yung MD DIAGNOSTIC IMAGING O RDERABLES * TRANSFUSE RED BLOOD CELL UNIT(S) (03/26/2013 5:48 AM HEARING AID FITTER) Gio Knutson MD NURSING - BLOOD PROD TRANSFUSION * ANTIBODY SCREEN (03/25/2013 9:01 AM HEARING AID FITTER) Blood Bank BLOOD SPECIMEN / Unknown 03/25/2013 9:01 AM HEARING AID FITTER 03/25/2013 9:06 AM HEARING AID FITTER Gio Knutson MD LAB - BLOOD BANK ORD ERABLES [facility] BLOOD BANK LAB * (ABNORMAL) URINALYSIS MICROSCOPIC ONLY W/REFLEX CULTURE (03/23/2013 1:00 AM HEARING AID FITTER) RBC UA 10-20(A) 0-2, 2-5 # /hpf 03/23/2013 3:05 AM HEARING AID FITTER [facility] LABORATORY WBC UA >100(A) 0-2, 2-5 # /hpf 03/23/2013 3:05 AM HEARING AID FITTER [facility] LABORATORY Bacteria UA 1+(A) None Seen 03/23/2013 3:05 AM HEARING AID FITTER [facility] LABORATORY Epithelial Cell UA >100(A) 0-2, 2-5 03/23/2013 3:05 AM [facility] Urine URINE SPECIMEN OBTAINED BY CLEAN CATCH PROCEDURE / Unknown 03/23/2013 1:00 AM HEARING AID FITTER 03/23/2013 2:20 AM HEARING AID FITTER Gio Knutson MD LAB - URINALYSIS ORD ERABLES [facility] LABORATORY [address] [place] [address] * (ABNORMAL) URINALYSIS ROUTINE W/REFLEX TO CULTURE (03/23/2013 1:00 AM HEARING AID FITTER) Only the most recent of2 resultswithin the time period is included. Color UA Yellow Straw, Yellow, Dark Yellow 03/23/2013 2:38 AM [facility] Clarity UA Turbid 03/23/2013 2:38 AM [facility] Specific [place] UA 1.011 1.005 - 1.030 03/23/2013 2:38 AM [facility] pH UA 7.0 5.0 - 8.0 pH 03/23/2013 2:38 AM [facility] Protein UA 2+(A) Negative 03/23/2013 2:38 AM [facility] Blood UA 3+(A) Negative 03/23/2013 2:38 AM [facility] Leukocyte UA 3+(A) Negative 03/23/2013 2:38 AM [facility] Nitrite UA Negative Negative 03/23/2013 2:38 AM [facility] Glucose UA Negative Negative 03/23/2013 2:38 AM [facility] Ketone UA Negative Negative 03/23/2013 2:38 AM [facility] Bilirubin UA Negative Negative 03/23/2013 2:38 AM [facility] Urobilinogen UA 0.2 0.1 - 1.0 EU/dL 03/23/2013 2:38 AM [facility] WBC UA Auto >100(A) 0-2, 2-5 #/hpf 03/23/2013 2:38 AM [facility] RBC UA Auto Reflex to manual(A) 0-2, 2-5 #/hpf 03/23/2013 2:38 AM [facility] Epithelial Cell UA Auto 20-50(A) 0-2, 2-5 #/hpf 03/23/2013 2:38 AM HEARING AID FITTER [facility] Bacteria UA Auto 2+(A) None seen 03/23/19 14 2:38 AM HEARING AID FITTER [facility] Yeast UA Auto Reflex to manual(A) None seen 03/23/2013 2:38 AM HEARING AID FITTER [facility] Hyaline Casts UA Auto Reflex to manual(A) 0 - 2 #/lpf 03/23/2013 2:38 AM HEARING AID FITTER [facility] Reflex Status Culture to follow 03/23/2013 2:38 AM HEARING AID FITTER [facility] Urine URINE SPECIMEN OBTAINED BY CLEAN CATCH PROCEDURE / Unknown Collection / Unknown 03/23/2013 1:00 AM HEARING AID FITTER 03/23/2013 2:20 AM HEARING AID FITTER Gio Knutson MD LAB - URINALYSIS ORD ERABLES Performing Organization Address City/[facility] Co de Phone Number [facility] [address] [place] [address] * CULTURE URINE (03/23/2013 1:00 AM HEARING AID FITTER) Only the most recent of3 resultswithin the time period is included. Culture >10,000 CFU/mL multiple bacterial morphotypes present. Suggest recollection. 03/26/2013 12:10 PM HEARING AID FITTER [facility] Urine URINE SPECIMEN OBTAINED BY CLEAN CATCH PROCEDURE / Unknown 03/23/2013 1:00 AM HEARING AID FITTER 03/23/2013 2:20 AM HEARING AID FITTER Gio Knutson MD LAB - MICROBIOLOGY O RDERABLES Performing Organization Address City/[facility]/ZIP Co de Phone Number [facility] [address] [place] [address], [facility] * CORTISOL BLOOD (03/21/2013 4:00 AM HEARING AID FITTER) Cortisol 3.80 3.1 - 22.4 ug/dL 03/21/2013 5:21 AM HEARING AID FITTER [facility] Blood BLOOD SPECIMEN / Unknown Lab Venipuncture / Unknown 03/21/2013 4:00 AM HEARING AID FITTER 03/21/2013 4:39 AM HEARING AID FITTER Luis Jauregui MD LAB - CHEMISTRY ORD ERABLES [facility] [address] [place] [address] * CCL CATH LEFT HEART ARTERY VENTRICLE (07/27/2012 12:00 AM CDT) Anatomical Region Laterality Modality X-Ray Angiograph y 07/27/2012 Kye Fernandez MD CARDIAC EDGER TAILER RAD IANT * ABO TYPE: RETYPE-PATIENT RESULT ONLY (06/19/2012 8:00 AM CDT) ABO/Rh INT Patient Repeat O NEGATIVE [facility] Comment:PV 06/19/2012 8:00 AM CDT 06/19/2012 8:26 AM CDT Whitney Brar MD LAB - BLOOD BA NK ORDERABLES Performing Organization Address City/[facility] Co de Phone Number [address] [phone] * HLA XM SEROLOGIC AUTO (06/19/2012 7:38 AM CDT) AXM T JANNA Neg () [facility] AXM B JANNA Neg () [facility] AXM T AHG Neg () [facility] AX B AHG Neg () [facility] Auto CDC Serum Date 3 () [facility] Tested Date 3 () [facility] Comment: This test was developed and its performance characteristics determined by the [facility]. ??It has not been cleared or approved by the U.S. Food and Drug Administration. ??The FDA has determined that such clearance or approval is not necessary. ??This test is used for clinical purposes. ??It should not be regarded as investigational or for research. This laboratory is certified under the Clinical Laboratory Improvement Amendments of 1988 (CLIA-88) as qualified to perform high complexity clinical laboratory testing. Performed at: ??[facility], [address] [place] [address] ??[phone] Professor Of German: Jose De Jesus Pacheco MD, 06/19/2012 7:38 AM CDT 06/19/2012 9:00 AM CDT Whitney Brar MD LAB - BLOOD BA NK ORDERABLES Performing Organization Address [facility] Co de Phone Number [address] [phone] * HLA TYPING CLASS II (DR,DQ) DNA (06/19/2012 7:38 AM CDT) Only the most recent of2 resultswithin the time period is included. % PRA 12 () [facility] Class 2 Specificity - () [facility] Class 2 Test Date 06/21/2012 () [facility] Comment: This test was developed and its performance characteristics determined by the [facility]. ??It has not been cleared or approved by the U.S. Food and Drug Administration. ??The FDA has determined that such clearance or approval is not necessary. ??This test is used for clinical purposes. ??It should not be regarded as investigational or for research. This laboratory is certified under the Clinical Laboratory Improvement Amendments of 1988 (CLIA-88) as qualified to perform high complexity clinical laboratory testing. Performed at: ??[facility], [address] @ [place], [place] ??[phone] Professor Of German: Jose De Jesus Pacheco MD, 06/19/2012 7:38 AM CDT 06/19/2012 9:00 AM CDT Whitney Brar MD LAB - CHEMISTR Y ORDERABLES Performing Organization Address City/[facility]/ZIP Co de Phone Number [address] [phone] * HLA TYPING CLASS I (A,B,C) DNA (06/19/2012 7:38 AM CDT) % PRA 0 () [facility] Class 1 Specificity - () [facility] Class 1 Test Date 3 () [facility] Comment: This test was developed and its performance characteristics determined by the [facility]. ??It has not been cleared or approved by the U.S. Food and Drug Administration. ??The FDA has determined that such clearance or approval is not necessary. ??This test is used for clinical purposes. ??It should not be regarded as investigational or for research. This laboratory is certified under the Clinical Laboratory Improvement Amendments of 1988 (CLIA-88) as qualified to perform high complexity clinical laboratory testing. Performed at: ??[facility], [address] [place], [place] ??[phone] Professor Of German: Jose De Jesus Pacheco MD, 06/19/2012 7:38 AM CDT 06/19/2012 9:00 AM CDT Whitney Brar MD LAB - CHEMISTR Y ORDERABLES Performing Organization Address City/State/[facility] Co de Phone Number [place] [id number] [address] [phone] * HLA TYPING A,B,C MULTIPLE ANTIGEN (06/19/2012 7:38 AM CDT) A-1 Sero 11 () [facility] A-2 Sero 30 () [facility] B1 Sero 52 () [facility] B-2 Sero 53 () [facility] Bw-1 4 () [facility] Bw-2, ABCS 4 () [facility] Cw-1, ABCS 8 () [facility] Cw-2 Serotype 12 () [facility] Tested Date 3 () [facility] Comment: This test was developed and its performance characteristics determined by the [facility]. ??It has not been cleared or approved by the U.S. Food and Drug Administration. ??The FDA has determined that such clearance or approval is not necessary. ??This test is used for clinical purposes. ??It should not be regarded as investigational or for research. This laboratory is certified under the Clinical Laboratory Improvement Amendments of 1988 (CLIA-88) as qualified to perform high complexity clinical laboratory testing. Performed at: ??[facility], [address] [place], [place] ??[phone] Professor Of German: Jose De Jesus Pacheco MD, 06/19/2012 7:38 AM CDT 06/19/2012 9:00 AM CDT Whitney Brar MD LAB - BLOOD BA NK ORDERABLES Performing Organization Address [facility] Co de Phone Number [address] [phone] * SYNTHETIC CANNABINOID BLOOD (06/19/2012 7:35 AM CDT) Cannabinoid Negative Cutoff=10 ng/mL [facility] Comment: Performed at: ??[facility] - [facility] [address] ??[phone] Professor Of German: Thuan Molina MD, Phone: ??[phone] 06/19/2012 7:35 AM CDT 06/19/2012 8:58 AM CDT Whitney Brar MD LAB - CHEMISTR Y ORDERABLES Performing Organization Address [facility] Co de Phone Number [address] [phone] * AMPHETAMINES BLOOD (06/19/2012 7:35 AM CDT) Amphetamines Oral Fluid Negative () [facility] Comment: INTERPRETIVE INFORMATION: Drug Confirmation, Amphetamines, Ser/Benita 1. Drugs covered: amphetamine, methamphetamine, ?? methylenedioxymethamphetamine (MDMA-Ecstasy), ?? methylenedioxyethylamphetamine (MDEA-Pura), and ?? methylenedioxyamphetamine (MDA). 2. Positive cutoff: 20 ng/mL. 3. For medical purposes only; not valid for forensic use. 4. The absence of expected drug(s) and/or drug metabolite(s) may indicate non-compliance, inappropriate timing of specimen collection relative to drug administration, poor drug absorption, or limitations of testing. The concentration value must be greater than or equal to the cutoff to be reported as positive. Interpretive questions should be directed to the laboratory. *ASSAY PERFORMED BY: [facility] ?[address] ?[place], [place] [address] 06/19/2012 7:35 AM CDT 06/19/2012 8:58 AM CDT Whitney Brar MD LAB - CHEMISTR Y ORDERABLES Performing Organization Address [facility] Co de Phone Number [address] [phone] * ECHO STRESS TEST W DOBUTAMINE (06/19/2012 12:00 AM CDT) Anatomical Region Laterality Modality Other 06/19/2012 Whitney Brar MD ECHOCARDIOGRAP HY RADIANT * ECHO DOPPLER ONLY (06/19/2012 12:00 AM CDT) Anatomical Region Laterality Modality Other 06/19/2012 Whitney Brar MD ECHOCARDIOGRAP HY RADIANT * IR REMVL [place] CVC WO SQ PT/PP (07/02/2010 11:17 AM CDT) Only the most recent of2 resultswithin the time period is included. Anatomical Region Laterality Modality X-Ray Angiograph y Narrative 07/02/2010 2:40 PM CDT DEION RIGGS ? 07/02/2010 ? 2:40:16 PM Moy Tobin 1955 [id number] Interventional Nephrology Procedure Date: ??07/02/2010 Attending Surgeon and performing the procedure: ??Deion Riggs MD Medical indication for the procedure: Patient with ESRD (585.6) Referred for the removal of a right IJ tunneled catheter due to a functioning left RC AV fistula. Procedures Performed: 1. REMOVAL OF TUNNELED CENTRALLY INSERTED CVC;24662 Findings: 1. ??Right IJ tunneled catheter Exit site without erythema or drainage. 2. ??A functioning left RC AV fistula with a strong thrill. Description of the procedure: After informed consent was appropriately obtained, ??Moy Tobin was taken to recovery bay three and placed on the stretcher in the supine position. The chest was prepared with chlorhexadine and draped in appropriate sterile fashion. The cuff was located by palpation. The exit site and tunnel tract up to the cuff were infiltrated with 1% lidocaine. Blunt dissection was used to release the cuff from the fibrous sheath and the catheter was removed. Pressure was applied for 10 minutes at the venotomy site over the right IJ on the base of the neck. ??Moy Tobin tolerated the procedure well with 1% lidacaine for local anesthesia. Thank you for allowing me the privilege to participate in the care of this patient. Sincerely, Deion Riggs MD 07/02/2010 2:38 PM Procedure Note Deion Riggs MD - 07/02/2010 2:37 PM CDT Moy Tobin 1955 [id number] Interventional Nephrology Procedure Date: 07/02/2010 Attending Surgeon and performing the procedure: Deion Riggs MD Medical indication for the procedure: Patient with ESRD (585.6) Referred for the removal of a right IJ tunneledcatheter due to a functioning left RC AV fistula. Procedures Performed: 1. REMOVAL OF TUNNELED CENTRALLY INSERTED CVC;13481 Findings: 1. Right IJ tunneled catheter Exit site without erythema or drainage. 2. A functioning left RC AV fistula with a strong thrill. Description of the procedure: After informed consent was appropriately obtained, Moy Tobin was takento recovery bay three and placed on the stretcher in the supine position.The chest was prepared with chlorhexadine and draped in appropriatesterile fashion. The cuff was located by palpation. The exit site andtunnel tract up to the cuff were infiltrated with 1% lidocaine. Bluntdissection was used to release the cuff from the fibrous sheath and thecatheter was removed. Pressure was applied for 10 minutes at the venotomysite over the right IJ on the base of the neck. Mrs. Moy Tobin tolerated the procedure well with 1% lidacaine forlocal anesthesia. Thank you for allowing me the privilege to participate in the care of thispatient. Sincerely, Deion Riggs MD 07/02/2010 2:38 PM Jc Moreau MD IR ORDERABLES * IR REPL [place] CVC WO PT/PP SAME ACC (03/03/2010 12:03 PM HEARING AID FITTER) Anatomical Region Laterality Modality X-Ray Angiograph y Narrative 03/03/2010 12:41 PM DEION CUTLER ? 03/03/2010 ? 12:41:10 PM Moy Tobin 1955 [id number] Interventional Nephrology Procedure Date: ??03/03/2010 Attending Surgeon and performing the procedure: ??Deion Riggs MD Medical indication for the procedure: Malfunctioning tunneled catheter likely arterial lumen leaking. Referred for a catheter exchange. Procedures Performed: 1. REPLACEMENT COMPLETE OF TUNNELED CVC THROUGH SAME VENOUS ACCESS;14836 2. FLUOROSCOPIC GUIDANCE FOR CVC PROCEDURE;16130 Findings: 1. SVC Patent no fibrin sheath. 2. 24 cm Vaccess TC with tip in the right atrium. Description of the procedure: ?? After informed consent was approrpriately obtained the patient was taken to the angiography suite and placed on the angiography table in the supine position. Time out was performed by RN. The Neck, chest, and catheter were prepared with chlorhexadine and draped in appropriate sterile fashion. The cuff was located by palpation. The exit site and tunnel tract up to the cuff were infiltrated with 1% lidocaine. Blunt dissection was used to release the cuff from the fibrous sheath and the catheter was pulled and the cuff exposed. A 0.035 stiff hydrophilic glide wire was advanced through the venous lumen of existing tunnel catheter and its tip located in the IVC. An SVC angiogram was performed for the evaluation of fibrin sheath and none was noted. Pulling ??the the breast down showed the catheter migration and the tip high in the IVC, explaining the possible malfunction. The existing catheter was removed and pressure applied at the venotomy site. A 23 cm Tip - to cuff catheter was advanced over the wire but the tip was in th IVC. Given this a new 23 cm Vaccess TC catheter was prepared for insertion. A 23 cm tip to cuff Vaccess TC Catheter that had been previously prepared for insertion was advanced over the wire, the tip located low in the right atrium and the cuff buried in the old tunnel approximately 3 cm cm from the exit site. The wire was removed. T test was performed and there was no resistance in either lumen. Each lumen was then flushed with 10 ml of normal saline, and locked with 1.9 ml of 1000 units/ ml of heparin lock solution and capped. A purse string suture was inserted at the exit site using 2-0 nylon and one surgical suture was also inserted on each side of the suture ring to secure the catheter to the chestwall. Sterile dressing was applied using a Biopatch and Tagaderm. The patient tolerated the procedure well with Versed and Fentanyl for conscious sedation and 1% Lidocaine for local anesthesia. COMPLICATIONS: None. RECOMMENDATIONS: 1. May use catheter for dialysis immediately. The tip is located low in the right atrium. Deion Riggs MD 03/03/2010 12:32 PM CC: Dr. Jc Moreau MD. Procedure Note Deion Riggs MD - 03/03/2010 12:32 PM CST Moy Tobin 1955 [id number] Interventional Nephrology Procedure Date: 03/03/2010 Attending Surgeon and performing the procedure: Deion Riggs MD Medical indication for the procedure: Malfunctioning tunneled catheterlikely arterial lumen leaking. Referred for a catheter exchange. Procedures Performed: 1. REPLACEMENT COMPLETE OF TUNNELED CVC THROUGH SAME VENOUSACCESS;30368 2. FLUOROSCOPIC GUIDANCE FOR CVC PROCEDURE;46229 Findings: 1. SVC Patent no fibrin sheath. 2. 24 cm Vaccess TC with tip in the right atrium. Description of the procedure: After informed consent was approrpriately obtained the patient was takento the angiography suite and placed on the angiography table in the supineposition. Time out was performed by RN. The Neck, chest, and catheter were prepared with chlorhexadine and drapedin appropriate sterile fashion. The cuff was located by palpation. Theexit site and tunnel tract up to the cuff were infiltrated with 1%lidocaine. Blunt dissection was used to release the cuff from the fibroussheath and the catheter was pulled and the cuff exposed. A 0.035 stiffhydrophilic glide wire was advanced through the venous lumen of existingtunnel catheter and its tip located in the IVC. An SVC angiogram was performed for the evaluation of fibrin sheath andnone was noted. Pulling the the breast down showed the catheter migrationand the tip high in the IVC, explaining the possible malfunction. The existing catheter was removed and pressure applied at the venotomysite. A 23 cm Tip - to cuff catheter was advanced over the wire but thetip was in th IVC. Given this a new 23 cm Vaccess TC catheter was preparedfor insertion. A 23 cm tip to cuff Vaccess TC Catheter that had been previously preparedfor insertion was advanced over the wire, the tip located low in the rightatrium and the cuff buried in the old tunnel approximately 3 cm cm fromthe exit site. The wire was removed. T test was performed and there was no resistance in either lumen. Eachlumen was then flushed with 10 ml of normal saline, and locked with 1.9 mlof 1000 units/ ml of heparin lock solution and capped. A purse string suture was inserted at the exit site using 2-0 nylon andone surgical suture was also inserted on each side of the suture ring tosecure the catheter to the chestwall. Sterile dressing was applied using a Biopatch and Tagaderm. The patient tolerated the procedure well with Versed and Fentanyl forconscious sedation and 1% Lidocaine for local anesthesia. COMPLICATIONS: None. RECOMMENDATIONS: 1. May use catheter for dialysis immediately. The tip is located low inthe right atrium. Deion Riggs MD 03/03/2010 12:32 PM CC: Dr. Jc Moreau MD. Jc Moreau MD IR ORDERABLES * IR INSERT MILKA CVC WO PT/PP 5+YRS (02/03/2010 12:12 PM HEARING AID FITTER) Anatomical Region Laterality Modality X-Ray Angiograph y Narrative 02/10/2010 12:04 PM HEARING AID FITTER DEION RIGGS ? 02/10/2010 ? 12:04:41 PM Moy Tobin 1955 [id number] Interventional Nephrology Procedure Date: ??02/10/2010 Attending Surgeon and performing the procedure: ??Deion Riggs MD Medical indication for the procedure: ESKD patient requiring a tunneled catheter for dialysis given that her forearm radio-cephalic fistula requires surgical revision to tie a collateral vein and possible revision of the arterial anastomosis. Procedures Performed: 1. INSERTION OF TUNNELED CENTRALLY INSERTED CVC; AGE 5 OR OLDER; 94857 2. FLUOROSCOPIC GUIDANCE FOR CVC PROCEDURE;19027 3. ULTRASOUND GUIDANCE FOR VASCULAR ACCESS WITH PERMANENT RECORDING;12882 Findings: 1. Right IJ tunneled catheter with its tip in the right Atrium. Description of the procedure: ?? After informed consent was appropriately obtained the patient was taken to the angiography suite and placed on the angiography table in the supine position. Time out was performed by the nurse prior to starting the procedure.. The Neck and chest were prepared with chlorhexidine and draped in appropriate sterile fashion. The Right IJ vein was localized with Ultrasound and the soft tissue infiltrated with 1% lidacaine. A 0.5 cm incision was made using a # 11 blade.The vein was then accessed with a 21 gauge micropuncture needle (part of the micro puncture set) using ultrasound guidance with permanent recording. The micro filament wire was advanced under fluoroscopic guidance and the tip located in the IVC. A 4 F dilator was exchanged for the micro puncture needle and advanced into the right IJ vein by modified Seldinger technique. A 19 cm tip to cuff Mahurkar Catheter was prepared for insertion. The micropuncture wire and inner dilator were removed and a 0.035 guide wire was advanced and it's tip located in the IVC. The exit site was chosen at the 3rd inter-costal space and midclavicular line. The exit site and tunnel tract were infiltrated with 1% lidocaine. A stab incision was made at the exit site with the # 11 blade and the catheter was brought to the venotomy site with the aid of a metal tunneling device. Serial dilatation was performed over the wire and under fluoroscopic guidance using ??a 12 F, 14 F and finally a 16 F peel away sheath dilator combo. The inner dilator and Benston wire were removed and the catheter advanced through the peel away sheath. The tip was located in the right atrium below the junction with the SVC. T test was performed and there was no resistance in either lumen. Each lumen was then flushed with 10 ml of normal saline, and locked with 1000 units/ ml of heparin lock solution and capped. Two separate mattress sutures were inserted at the dermotomy site using 2-0 nylon and one surgical suture was also inserted on each side of the suture ring to secure the catheter to the chestwall. Sterile dressing was applied using a Biopatch and Tagaderm. The patient tolerated the procedure well with Versed and Fentanyl for conscious sedation and 1% Lidocaine for local anesthesia. COMPLICATIONS: None. RECOMMENDATIONS: 1. Follow up in two weeks for removal of sutures in two weeks. Deion Riggs MD 02/10/2010 11:46 AM CC: Dr. jc Moreau MD Procedure Note Deion Riggs MD - 02/10/2010 11:46 AM CST Moy Tobin 1955 [id number] Interventional Nephrology Procedure Date: 02/10/2010 Attending Surgeon and performing the procedure: Deion Riggs MD Medical indication for the procedure: ESKD patient requiring a tunneled catheter for dialysis given that herforearm radio-cephalic fistula requires surgical revision to tie acollateral vein and possible revision of the arterial anastomosis. Procedures Performed: 1. INSERTION OF TUNNELED CENTRALLY INSERTED CVC; AGE 4 OR OLDER; 19113 2. FLUOROSCOPIC GUIDANCE FOR CVC PROCEDURE;94838 3. ULTRASOUND GUIDANCE FOR VASCULAR ACCESS WITH PERMANENTRECORDING;75297 Findings: 1. Right IJ tunneled catheter with its tip in the right Atrium. Description of the procedure: After informed consent was appropriately obtained the patient was taken tothe angiography suite and placed on the angiography table in the supineposition. Time out was performed by the nurse prior to starting theprocedure.. The Neck and chest were prepared with chlorhexidine and draped inappropriate sterile fashion. The Right IJ vein was localized withUltrasound and the soft tissue infiltrated with 1% lidacaine. A 0.5 cmincision was made using a # 11 blade.The vein was then accessed with a 21gauge micropuncture needle (part of the micro puncture set) usingultrasound guidance with permanent recording. The micro filament wire wasadvanced under fluoroscopic guidance and the tip located in the IVC. A 4 Fdilator was exchanged for the micro puncture needle and advanced into theright IJ vein by modified Seldinger technique. A 19 cm tip to cuffNyhurkar Catheter was prepared for insertion. The micropuncture wire and inner dilator were removed and a 0.035 guidewire was advanced and it's tip located in the IVC. The exit site waschosen at the 3rd inter-costal space and midclavicular line. The exit siteand tunnel tract were infiltrated with 1% lidocaine. A stab incision wasmade at the exit site with the # 11 blade and the catheter was brought tothe venotomy site with the aid of a metal tunneling device. Serial dilatation was performed over the wire and under fluoroscopicguidance using a 12 F, 14 F and finally a 16 F peel away sheath dilatorcombo. The inner dilator and Benston wire were removed and the catheteradvanced through the peel away sheath. The tip was located in the rightatrium below the junction with the SVC. T test was performed and there was no resistance in either lumen. Eachlumen was then flushed with 10 ml of normal saline, and locked with 1000units/ ml of heparin lock solution and capped. Two separate mattress sutures were inserted at the dermotomy site using2-0 nylon and one surgical suture was also inserted on each side of thesuture ring to secure the catheter to the chestwall. Sterile dressing was applied using a Biopatch and Tagaderm. The patient tolerated the procedure well with Versed and Fentanyl forconscious sedation and 1% Lidocaine for local anesthesia. COMPLICATIONS: None. RECOMMENDATIONS: 1. Follow up in two weeks for removal of sutures in two weeks. Deion Riggs MD 02/10/2010 11:46 AM CC: Dr. jc Moreau MD Jc Moreau MD IR ORDERABLES Care Teams Air Traffic Control Specialist Relationship Specialty Start Date End Date Federico Branham Jr., MD [address] [place] [address] PCP - Strive ACO 10/22/23 Federico Branham Jr., MD [address] [place] [address] PCP - General Family Medicine 12/15/23 Octavia Parry, GAS SHOVEL OPERATOR-COMPUTER INFORMATION SYSTEMS PROFESSOR [address] [facility] [address] PCP - Attributed-MSSP 11/21/23 Farrukh Solorzano MD [address] [facility] [address] [place] [address] -x7 (Work) Cardiovascular Disease 08/01/18 Keya Reina MD [address] [place] [address] [address] [place] [address] Gastroenterology 08/01/18 Osmar Zambrano MD [address] [place] [address] [address] [place] [address] Otolaryngology 08/01/18 Francisco Tobin MD [address] [address] Pulmonary Disease 08/01/18 Jc Moreau MD [address] [facility] [address] [place] [address] Nephrology 08/01/18 [place] [address] [place] [address] Lean Manager Cardiac Electrophysiology 09/03/18 [place] [address] [place] [address] Cardiology 04/25/19 Care, [facility] Kidney Bin CleanerFinancial Institution Treasurer 08/29/19
--- OUTSIDE RECORDS SUMMARY | 2024-03-25 09:29 | XMS_ITS | Continuity of Care Document ---
Author Organization [facility] Address [address] [place] [address] Phone Care Team Providers Care Career Transition Specialist Name Role Phone Oneil FARRELL, Calvin Unavailable [...] Diagnoses Date Provider Providers Copied on Encounter [facility], [address] [place] [address], [id number], tel:[phone] [facility] No Information Riggs Calvin. [address] [place] [address], [id number], [place]. tel:[phone] [facility], [address] [place] [address], [id number], tel:[phone] [facility] End stage renal disease Riggs Calvin. [address] [place] [address], [id number], . tel:[phone] Referring Provider: Jc Barr, [address] [place] [address], [address]. tel:[phone] [facility], [address] [place] [address], [id number], tel:[phone] [facility] End stage renal disease Riggs Calvin. [address] [place] [address], [id number], . tel:[phone] Referring Provider: Jc Barr, [address] [place] [address], [address]. tel:[phone] As per patient privacy policy some of the clinical information may not be visible. Family History Family Member Type Diagnosis Age At Onset No Information Payers Payer name Insurance type Covered green party ID Authoriza tion(s) Medicare [place] LINA [id number] [facility] [place] Blue Card Ppo BL [id number] Social History Type Description Quantity Date Captured Comments Sex Female Smoking Status No Information Gender Identity Female Chief Complaint And Reason For Visit No Information Reason For Referral Reason For Referral No Information Plan Of Treatment Date Type Action Status Future Order: Radiology Order Up per Body Flouroscopy (53235Y), Ordered on: Ordered History Of Present Illness Encounter Date Complaint History Of Prese nt Illness No Information Functional Status Date Functional Assessmen t No Information Instructions Date Instruction Additional Infor mation No Information Assessments Type Assessment Date No Information Patient Care Teams Name Effective Dates (start - stop) Status Members No Information
--- OUTSIDE RECORDS SUMMARY | 2024-03-25 09:30 | XMS_ITS | Continuity of Care Document ---
Author Organization [facility] Address [address] [facility] [address] [place] [address] Phone Care Team Providers Care Silk Screen Etcher Name Role Phone Ted Holm Unavailable Unavailable Procedures Procedure Date Eye Exam, New Patient Refraction Advance Directives Directive Yes / No Effective Date File Name No Information Encounters Encounter Description Practice Location Reason(s) For Visit Diagnoses Date Provider Providers Copied on Encounter [facility], [address], [place], [place], [id number], [place] tel:[phone] [facility] No Information [phone] Mihai Ted. [address] [facility] [address], [place], [address], [place]. tel:[phone] Family History Family Member Type Diagnosis Age At Onset No Information Payers Payer name Insurance type Covered republican ID Authoriza tion(s) Medicaid [facility]LY [facility] [id number] Social History Type Description Quantity Date Captured [...]
--- OUTSIDE RECORDS SUMMARY | 2024-03-25 09:30 | XMS_ITS | Continuity of Care Document ---
Author Organization [id number] Address [address] [place] [address] Phone Care Team Providers Care Back End Architect Name Role Phone Francisco Castano DO Unavailable [...] EM EXP PROB FOCUS/MODERAT E 25 MINS [id number] [facility] Safety [facility] s,[employer] [address] [facility] [address], [place], [address], tel:[phone] [facility] Cardiology No Information Eyad Singh. [address] [place], [place], [id number]. tel:[phone] Referring Provider: Melody Prado [address] [place] [address], [address] . tel:[phone] HOSPITAL INITIAL EM COMPREHENSIVE /HIGH 70 MINS [id number] - [facility] Safety Assistant s,[employer] [address] [facility] [address], [place], [address], tel:[phone] [facility] Cardiology No Information Eyad Singh. [address] [place], [id number]. tel:[phone] Referring Provider: Melody Prado [address] [place] [address], [address] . tel:[phone] Family History Family Member Type Diagnosis Age At Onset No Information Payers Payer name Insurance type Covered alliance party ID Authoriza tion(s) [place] [id number] [facility] [place] [facility] [place] [id number] Social History Type Description Quantity Date Captured [...]
--- OUTSIDE RECORDS SUMMARY | 2024-03-25 09:30 | XMS_ITS | CONTINUITY OF CARE DOCUMENT ---
Author Name ana, ana Address Unknown Organization [facility] Address [address] [place] [address] [address] [place] [address] Phone [phone] Care Team Providers Care Clinical Academic Allergist Name Role Phone Hank FARRELL, Luis M Unavailable [phone] MENDOZA FARRELL, JAYME K Unavailable [phone] MENDOZA FARRELL, JAYME K Unavailable PROBLEMS Condition Status Date Provider Notes Atrial flutter ? typical active Ryland rae MD RF ablation for SVT/AF active Ryland jay MD Anticoagulation active Ryland Alves MD Atrial fib paroxysmal active Ryland reyes MD CHF due to left ventricular systolic dysfunction active Luis M Mckinney MD Rotator cuff tear, right active Ryland rae MD Restrictive lung disease active Ryland rae MD Renal disease end-stage on HD active Ryland Alves MD ENCOUNTERS Date Type Provider Location Encounter [...] Mckinney MD blood pressure, diastolic 60 mm[Hg] [facility] blood pressure, systolic 108 mm[Hg] Shauna jacksonn Castalia Inhaled O2 2 L/min [facility] oxygen saturation, oximetry 98 % [facility] pulse rate 80 /min [facility] respiratory rate E&M 16 /min [facility] weight E&M 185 [lb_av] [facility] height E&M 62 [in_i] [facility] Body Mass Index (Ratio) 38.77 kg/m2 Luis M Mckinney MD blood pressure, diastolic 70 mm[Hg] [facility] blood pressure, systolic 118 mm[Hg] Shauna [facility] oxygen saturation, oximetry 96 % [facility] respiratory rate E&M 16 /min [facility] pulse rate 86 /min [facility] weight E&M 212 [lb_av] [facility] height E&M 62 [in_i] [facility] Body Mass Index (Ratio) 36.21 kg/m2 Mert Alves MD blood pressure, diastolic 72 mm[Hg] [facility] blood pressure, systolic 110 mm[Hg] Shauna carballo Resendez oxygen saturation, oximetry 95 % Ranjith Resendez respiratory rate E&M 16 /min Argyle Resendez pulse rate 85 /min Ranjith Resendez weight E&M 198 [lb_av] Ranjith Resendez height E&M 62 [in_i] Argyle Resendez Body Mass Index (Ratio) 36.21 kg/m2 Mert Alves MD blood pressure, diastolic 60 mm[Hg] astity Adama blood pressure, systolic 104 mm[Hg] Le stity Adama respiratory rate E&M 16 /min Chastit y Adama weight E&M 198 [lb_av] [facility] pulse [facility] 87 /min [facility] saturation, oximetry 96 % [facility] height E&M 62 [in_i] [facility] Body Mass Index (Ratio) 36.21 kg/m2 Mert Alves MD blood pressure, diastolic 68 mm[Hg] Deolres Campbell blood pressure, systolic 112 mm[Hg] Nevin [...] Jessica Campbell ELIQUIS 2.5 MG ORAL TABLET zqifteo-nr-a rror one tablet twice daily - Jessica [...] Payer name Policy type / Coverage type [place] red democrat [place] B Medicare [id number] [facility] Medicaid 0 [id number] [facility] [id number] ADVANCE DIRECTIVES Name Date LIVING WILL ON FILE TREATMENT PLAN Date Name Performer Cardiology: O n dialysis. Being evaluated for renal transplant at [facility] Luis M Mckinney MD Cardiology: I n sinus rhythm. Is S/P ablation. EP following Luis M Mckinney MD Cardiology: N ow on O2. Luis M Mckinney MD Cardiology: O n toprol XL and entresto. Closely monitor B.P for hypotension Luis M Mckinney MD Cardiology: I n sinus rhythm. Is S/P ablation. EP following Luis M Mckinney MD Cardiology: O n dialysis. Being evaluated for renal transplant at [facility] Luis M Mckinney MD Cardiology: N ow on O2. Luis M Mckinney MD Cardiology: O n toprol XL and entresto. Luis M Mckinney MD Cardiology:On toprol XL. Entrest o added Luis M Mckinney MD Cardiology:On dialys is. Being evaluated for renal transplant at [facility] Luis M Mckinney MD Cardiology:In sinus rhythm. Is S /P ablation. EP following Luis M Mckinney MD Date Name PROTHROMBIN TIME WIT H INR HISTORY OF PROCEDURES Procedure Date Procedure Name Provider Procedure Notes S tatus EKG Ryland Alves MD comp leted SNOMED-CT: 635762857483980 Current Medications Documented Ryland Alves MD completed EKG Ryland Alves MD comp leted SNOMED-CT: 490988354546215 Current Medications Documented Ryland Alves MD completed Mobile Cardiac Telem etry - Tech Ryland Alves MD completed Mobile Cardiac Telem etry - Prof Ryland Alves MD completed EKG Ryland Alves MD comp leted SNOMED-CT: 474791441752566 Current Medications Documented Ryland Alves MD completed Protravinder Alves MD comp leted Protravinder Alves MD comp leted Protravinder Alves MD comp leted SNOMED-CT: 854956968053356 Current Medications Documented Ryland Alves MD completed EKG Ryland Alves MD comp leted Protravinder Alves MD comp leted Protravinder Alves MD comp leted EKG Ryland Alves MD comp leted SNOMED-CT: 209170360531686 Current Medications Documented Ryland Alves MD completed
[2024-03-25 10:29] LABS: Basophils Percent Auto 0.2 % (0.2-1.2); Eosinophils Absolute Auto 0.3 K/mm3 (0-0.3); Eosinophils Percent Auto 3.5 % (0-4.4); Hematocrit 25.5 % (37.0-47.0); Hemoglobin 7.9 g/dL (12.0-15.0); Immature Granulocyte Absolute 0.08 K/mm3 (0.00-0.031); Lymphocytes Percent Auto 18.7 % (18.3-44.2); Mean Corpuscular Hemoglobin 27.7 pg (26-34); Mean Corpuscular Volume 89.5 fl (80-100); Mean Platelet Volume 9.9 fl (7.4-10.4); Monocytes Absolute Auto 0.6 K/mm3 (0.1-0.6); Monocytes Percent Auto 7.9 % (2.6-8.5); Neutrophils Absolute Auto 5.5 K/mm3 (1.3-6.7); Neutrophils Percent Auto 68.7 % (45.5-73.1); Platelet Count Result 265 k/mm3 (150-375); Red Blood Count 2.85 M/mm3 (4.2-5.4); Red Cell Distribution Width 15.9 % (11.5-14.5)
[2024-03-25 10:38] LABS: INR 1.1; Lactic Acid Reflex 0.9 mmol/L (0.7-2.0); Partial Thromboplastin Time 33.9 Seconds (22.3-36.8)
[2024-03-25 10:39] LABS: Alanine Aminotransferase 10 U/L (6-35); Albumin Level 3.9 g/dL (3.5-5.1); Alkaline Phosphatase 88 U/L (38-126); Anion Gap 14 mmol/L (4-12); Aspartate Amino Transferase 32 U/L (14-36); Bilirubin,Total 0.6 mg/dL (0.2-1.3); Blood Urea Nitrogen 23 mg/dL (7-17); Calcium 8.5 mg/dL (8.4-10.2); Carbon Dioxide 27 mmol/L (22-30); Chloride 97 mmol/L (98-107); Estimated CRCL calculation 10 ml/min; Estimated Glomerular Filt Rate 11; Glucose 94 mg/dL (65-110); Lipase 119 U/L (23-300); Potassium 3.4 mmol/L (3.4-5.0); Sodium 138 mmol/L (137-145)
[2024-03-25 10:50] LABS: Troponin I < 0.012 ng/mL (0.000-0.034)
--- NOTE | 2024-03-25 11:20 | PC.NURSE ---
lab called to add on ordered bnp
[2024-03-25 11:33] LABS: Influenza A QL RT-PCR Negative (Negative); Influenza B QL RT-PCR Negative (Negative); RSV RNA, RT-PCR Negative (Negative); SARS-CoV-2 RNA PCR Negative (Negative)
[2024-03-25 11:49] LABS: NT Pro B Type Natriuretic Pept > 30000 pg/mL (19.9-100)
--- NOTE | 2024-03-25 11:54 | PM.IMHP ---
H&P: HPI History of Present Illness Date/Time: 03/25/24 11:54 Chief Complaint: Shortness of breath Narrative: 68yo female with ESRD on HD M-W-F, CHF, PAFib s/p Watchman, DM and LENORA here for feeling short of breath and cough. Patient has had 2-3 weeks of cough productive of mostly clear sputum but did have scant hemoptysis 1-2 days ago. She is also having TERRELL, chills, SOB, wheezing, left upper back pain and body aches. She did go to [facility] ER on 03/16/24 and tested positive for Influenza A. She was treated with Tamiflu and Azithromycin; she complete her medications. She has LENORA but unable to tolerate CPAP since being ill. She is a never smoker and denies having COPD. No calf pain or pedal edema. No n/v. No diarrhea. She does not make urine. She has been having pleuritic chest pain wirse with coughing. No odynophagia or dysphagia. She has mid abdominal pain worse with coughing. No exposures to birds. No pets. Patient's condition worsened. She has been more short of breath with wheezing and crackling in my lungs . She was able to make it to dialysis today. Patient was seen in dialysis unit by nephrology. She completed her dialysis treatment and was advised to come to the ED for an evaluation. In the ED, she was hemodynamically stable. No fevers, hypoxia or tachycardia but mildly tachypneic. Lactic acid 0.9. Influenza, COVID and RSV PCR negative here. CMP showing elevated BUN and Cr but otherwise unrevealing. Lipase normal. BNP >30K. Troponin negative. PT/PTT. WBC and platelet count normal but Hgb 7.9. CXR showing new airspace opacity lateral LLL and CMG. CT chest without contrast showing scattered bilateral chronic ILD which include small, calcified nodules, CMG, small sliding hiatal hernia and nephrolithiasis vs atherosclerotic calcifications upper pole right kidney. EKG showing sinus rhytm, PACs, possible old septal NE and borderline ST-T wave changes high lateral leads. BCx collected. She was given Rocephin and Azithromycin. She was admitted for further care. Review of Systems Review of Systems: All systems reviewed & are unremarkable except as noted in HPI and below [facility] Past Medical History Medical History (Updated 03/25/24 @ 13:10 by Saul العلي MD) Hx of completed stroke 10/05/23 small left occipital lobe stroke after c-spine surgery Chronic hypotension Chronic obstructive pulmonary disease Hypotension On midodrine. Chronic anticoagulation Renal osteodystrophy Combined systolic and diastolic congestive heart failure Echo 10/2012: severe LV enlargement, moderate LV dysfunction with wall motion abnormality at the inferior basal segment, EF 44%, grade 2 diastolic dysfunction. Non-ischemic cardiomyopathy Negative cardiac catheterization showing no obstructive coronary disease in 2003 at [facility]. EF at that time was 20% but has improved to 54% in 02/2015. Chronic anemia History of blood transfusions. Hypothyroidism Gout Kidney stones Peptic ulcer (07/2003) Gastroesophageal reflux disease Deep venous thrombosis (02/2013) Paroxysmal atrial fibrillation s/p Watchman Obstructive sleep apnea End-stage renal disease on hemodialysis (09/2009) Type II diabetes mellitus Complicated by peripheral neuropathy and nephropathy. Asthma Diverticulosis Anxiety Hyperlipidemia Surgical History Surgical History (Updated 03/25/24 @ 12:52 by Saul العلي MD) Hx of cervical spine surgery C3-C6 laminectomies, C2-C7 instrumented posterior spinal fusion on 10/05/23 at [facility] Presence of Watchman left atrial appendage closure device 02/08/24 History of colonoscopy with polypectomy History of cardiac catheterization (08/20/13) Normal coronary arteries per Dr. Oliveros at [facility]. Status post creation of arteriovenous fistula Left forearm. History of parathyroidectomy History of cystoscopy (03/2012) History of sleeve gastrectomy (2013) History of cardiac radiofrequency ablation (1993) For SVT. History of mandibular surgery (1987) For TMJ. History of angioplasty History of myomectomy History of cholecystectomy (2014) History of section History of hysterectomy (1993) Family History Family History Mother Hypertension Family history of congestive heart failure Family history of congenital heart disease Family history of arthritis Family history of kidney disease Family history of chronic obstructive pulmonary disease Father Carcinoma of colon Sibling Family history of diabetes mellitus in first degree relative Grandparent Family history of congestive heart failure Diabetes mellitus Father Carcinoma of colon Mother Diabetes mellitus Acute myocardial infarction Hypertension Hyperlipidemia Grandparent Diabetes mellitus Acute myocardial infarction Stomach cancer Other Family history of cardiovascular disease Social History Social History (Updated 03/25/24 @ 12:45 by Saul العلي MD) Social History: Lives alone. Never smoker. No alcohol use. No drug use or hx of drug use. No pets. Surrogate decision maker: Sara Tobin Code status: Full code. Smoking status: Never smoker Second hand tobacco smoke exposure: No Alcohol intake: never Substance use: never Substance use type: does not use Do You Feel Safe in your Home?: Yes Lack of Transportation: No Lack of Food: Never True Current Housing: I Have Housing Concerned About Future Housing: No Difficulty Paying Gas/Electric Bills: No Difficulty Paying for Meds: No Currently Unemployed: No Education: Master's Degree or Higher Difficulty w/ Childcare or Family Care: No Additional living arrangements comments: Lives in [place]. 3 grown children. 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 Spiritual care concerns: No Meds Home Medications and Allergies Home Medications ?Medication ?Instructions ?Recorded ?Confirmed ?Type calcium acetate(phosphat bind) 667 667 mg PO BIDWM #60 tabs 04/25/23 03/25/24 Rx mg tablet lidocaine 4 % topical patch 1 patch topical DAILY #30 ea 04/25/23 03/25/24 Rx (Lidocaine Pain Relief) vitamin B complex-vitamin C-folic 1 tablet PO DAILY #30 tabs 04/25/23 03/25/24 Rx acid 0.8 mg tablet (Dialyvite 800) acetaminophen 500 mg tablet 500 mg PO QID PRN Fever Or Pain 10/18/23 03/25/24 History cholecalciferol (vitamin D3) 25 3,000 unit PO DAILY 10/18/23 03/25/24 History mcg (1,000 unit) tablet (Vitamin D3) cinacalcet 30 mg tablet (Sensipar) 60 mg PO QMWF 10/18/23 03/25/24 History fluoxetine 10 mg capsule (Prozac) 10 mg PO DAILY 10/18/23 03/25/24 History midodrine 5 mg tablet 15 mg PO TIDWMEAL 10/18/23 03/25/24 History atorvastatin 40 mg tablet 40 mg PO HS 30 days #30 tabs 11/03/23 03/25/24 Rx digoxin 125 mcg (0.125 mg) tablet 125 mcg PO SuTh 30 days #9 tabs 11/03/23 03/25/24 Rx fluticasone propionate 50 2 spray intranasal DAILY 30 days 11/03/23 03/25/24 Rx mcg/actuation nasal #16 grams spray,suspension latanoprost 0.005 % eye drops 1 drp EACH EYE HS 30 days #2.5 mL 11/03/23 03/25/24 Rx (Xalatan) lidocaine 4 % topical patch 1 patch topical DAILY #10 ea 11/03/23 03/25/24 Rx (Lidocaine Pain Relief) montelukast 10 mg tablet 10 mg PO HS 30 days #30 tabs 11/03/23 03/25/24 Rx (Singulair) oxycodone 5 mg tablet 5 mg PO Q6H PRN Pain Rated 4-10 11/03/23 03/25/24 Rx #28 tabs peg [id number] 1 1 drp EACH EYE TID PRN Dry Eyes 30 11/03/23 03/25/24 Rx %-0.2 %-0.2 % eye drops days #15 mL (Artificial Tears ([id number])) tizanidine 2 mg tablet 2 mg PO TID PRN Muscle Spasm #30 11/03/23 03/25/24 Rx tabs aspirin 81 mg tablet,delayed 81 mg PO DAILY 03/25/24 03/25/24 History release (Adult Aspirin Regimen) gabapentin 100 mg capsule 200 mg PO BID 03/25/24 03/25/24 History lanthanum 1,000 mg chewable tablet 1,000 mg PO .with meals 03/25/24 03/25/24 History omeprazole 20 mg capsule,delayed 20 mg PO BID 03/25/24 03/25/24 History release Allergies Allergy/AdvReac Type Severity Reaction Status Date / Time lisinopril Allergy Unknown Unknown Verified 03/25/24 09:09 propoxyphene Allergy Unknown Unknown Verified 03/25/24 09:09 valsartan Allergy Unknown lost voice Verified 03/25/24 09:09 Vital Signs Vital Signs - 24 hr 03/25/24 09:00 03/25/24 09:01 03/25/24 09:01 Temperature 97.9 F Pulse Rate 92 97 89 Respiratory Rate 25 H 20 26 H Blood Pressure 137/80 137/80 Pulse Oximetry 96 100 98 Oxygen Delivery Room Air 03/25/24 09:19 03/25/24 10:02 03/25/24 10:24 Temperature Pulse Rate 88 85 Respiratory Rate 18 Blood Pressure Pulse Oximetry 100 94 Oxygen Delivery Room Air 03/25/24 11:23 Temperature Pulse Rate 87 Respiratory Rate 26 H Blood Pressure 130/73 Pulse Oximetry 99 Oxygen Delivery Exam Narrative: AF 97.9 131/71 88 24 94% ra Gen - chronically ill appearing female in no acute respiratory distress who is nontoxic-appearing but appears uncomfortable HEENT - normocephalic. Atraumatic. Pupils equal round and reactive. Extraocular motions intact. Sclera clear and anicteric. Nares patent. Oropharynx was poorly visualized. No oral lesions. Moist mucous membranes. Tongue was midline. Palate susan symmetrically. No facial asymmetry. Neck - neck was supple. No dominant adenopathy, thyromegaly or masses. Chest - inspiratory basilar rhonchi with diffuse coarse expiratory wheezing. Breast exam was deferred. CV - heart was regular rate and rhythm. S1-S2. No murmurs gallops or rubs. Abd - abdomen was soft. Nontender. Nondistended. Positive bowel sounds. No organomegaly or masses. Back - tenderness perispinal area mid-thoracic region. No CVA tenderness Ext - no clubbing, cyanosis or edema. 2+ DP pulses bilaterally. Thrill and bruit left upper arm. Neuro - patient is alert and oriented. Strength is 5-/5 in both upper and lower extremities that is slightly worse on right UE. Cranial nerves 2-12 are intact. Speech is clear. Psych - normal mood but appears uncomfortable Skin - warm and dry. No rashes noted. H&P: Results Labs Labs: Short CBC 03/25/24 Range/Units 10:11 WBC 8.0 (4.5-10.0) K/mm3 Hgb 7.9 L (12.0-15.0) g/dL Hct 25.5 L (37.0-47.0) % Plt Count 265 (150-375) k/mm3 BMP 03/25/24 10:11 Sodium 138 Potassium 3.4 Chloride 97 L Carbon Dioxide 27 BUN 23 H D Creatinine 4.94 H Glucose 94 Calcium 8.5 Cardiac Enzymes 03/25/24 Range/Units 10:11 Troponin I < 0.012 (0.000-0.034) ng/mL Liver Function 02/03/25 Range/Units 10:11 Total Bilirubin 0.6 (0.2-1.3) mg/dL AST 32 (14-36) U/L ALT 10 (6-35) U/L Alkaline Phosphatase 88 (38-126) U/L Albumin 3.9 (3.5-5.1) g/dL Assessment and Plan Assessment and plan (1) Shortness of breath: Code(s): R06.02 - Shortness of breath Status: Acute Assessment and Plan: Patient presents with worsening SOB 1 week after being diagnosed with influenza. CT chest showing what appears to be more chronic findings. WBC normal and no fevers. She is having pleuritic chest pain and scant hemopytsis but sputum o/w clear. Consider PE but no evidence of DVT, tachycardia or hypoxia. And another diagnosis more likely. She denies that she has COPD but does have asthma; suspect she is having more of an asthma exacerbation Doubt fluid overload since just had HD. BNP probably chronically elevated. Start bronchodilators and steroids. Check MRSA nasal swab Follow clinically. (2) Asthma: Code(s): J45.909 - Unspecified asthma, uncomplicated Status: Acute Assessment and Plan: As above (3) Influenza: Code(s): J11.1 - Influenza due to unidentified influenza virus with other respiratory manifestations Status: Acute Assessment and Plan: Patient diagnosed with influenza and completed a course of Tamiflu Repeat testing negative. Hold off on repeat treatment since stable and testing negative now Follow (4) End-stage renal disease on hemodialysis: Onset Date: 09/2009 Code(s): N18.6 - End stage renal disease; Z99.2 - Dependence on renal dialysis Status: Acute Assessment and Plan: Patient on dialysis . Nephrology consult for dialysis treatment plan. (5) Chronic anemia: Code(s): D64.9 - Anemia, unspecified Status: Chronic Assessment and Plan: Patient with chronic anemia. Hgb last year was in the 8-11 range. Hgb 7.9 on admission. Check iron, B12 levels. Follow (6) Obstructive sleep apnea: Code(s): G47.33 - Obstructive sleep apnea (adult) (pediatric) Status: Acute Assessment and Plan: Patietn with LENORA. Resume CPAP at night and with naps as she tolerates (7) Back pain: Code(s): M54.9 - Dorsalgia, unspecified Status: Acute Assessment and Plan: Patient with mid thoracic palpable back pain. No trauma. Check xray to exclude thoracic compression fracture from coughing Lidocaine patch (8) Type II diabetes mellitus: Code(s): E11.9 - Type 2 diabetes mellitus without complications Status: Acute Assessment and Plan: Patient has DM in the past requiring sliding scale insulin but not requiring treatment now She has peripheral neuropathy and takes Gabapentin for this. Start sliding scale with hypoglycemia protocol. Plan DVT prophylaxis - SCDs Code status - full
[2024-03-25] MEDS: AZITHROMYCIN 500 MG/NS 250 ML 500 MG/250 ML BAG 250 MG IVPB (12:04)
--- NOTE | 2024-03-25 13:26 | ECG_ITS ---
Test Date: 2024-03-25 13:32:04 Measurements Intervals Fabius Rate: 84 P: 64 DC: 169 QRS: -59 QRSD: 127 T: 87 QT: 403 QTc: 477 Interpretive Statements SINUS RHYTHM WITH OCCASIONAL SUPRAVENTRICULAR PREMATURE COMPLEXES LEFT AXIS DEVIATION LEFT BUNDLE BRANCH BLOCK BASELINE WANDER- V5-V6 ABNORMAL ECG Compared to ECG 03/25/2024 09:01:37 NO SIGNIFICANT CHANGE Electronically Signed On 03-25-2024 13:46:35 LEAD NETWORK ARCHITECT by Heath Grande D.O.
--- NOTE | 2024-03-25 14:11 | PC.NURSE ---
lab at bedside drawing 3 hour troponin.
--- NOTE | 2024-03-25 14:30 | PC.NURSE ---
Pt. offered a meal and/or a snack. Pt. states she is not hungry this time.
[2024-03-25] MEDS: IPRATROPIUM 0.5 MG/ALBUTEROL SULFATE 2.5 MG AMPUL.NEB 3 ML INHALATION ×2 (14:41→19:50)
[2024-03-25 14:47] LABS: Troponin I < 0.012 ng/mL (0.000-0.034)
--- NOTE | 2024-03-25 15:13 | PCRCNOTE ---
I asked patient if she would like to use one of our cpap/bipap's and patient said that she did not want one of our machines. She said that she has not been wearing her own machine at home either.
--- NOTE | 2024-03-25 15:17 | PC.NURSE ---
Pt. states she leonardo not make urine. unable to collect urine sample at this time.
[2024-03-25 15:42] LABS: MRSA (PCR) NOT DETECTED (NOT DETECTE)
--- NOTE | 2024-03-25 15:57 | ADMGEN ---
This patient, Donya Tobin, was admitted to [facility] Room 307-02. Patient/family oriented to hospital policies and general routines including ID bracelet, bed and alarms, visiting hours, pain management, procedures, bathroom and other care routines, personal items, smoking policy, room service/diet, and visiting hours. Information on how to activate the Rapid Response Team has been discussed. Patient/Family are encouraged to report perceived risks to care and to ask questions if they do not understand what they are told or what they should do.
[2024-03-25] MEDS: oxyCODONE HCL (*CRX) 5 MG TAB IR PO (16:32)
[2024-03-25] MEDS: MIDODRINE HCL 2.5 MG TABLET 15 MG PO (16:36)
[2024-03-25] MEDS: CALCIUM ACETATE 667 MG TABLET PO (16:36)
[2024-03-25] MEDS: GABAPENTIN 100 MG CAPSULE 200 MG PO (16:36)
[2024-03-25] MEDS: methylPREDNISolone SOD SUCC 125 MG VIAL 60 MG IV PUSH ×2 (16:36→22:06)
[2024-03-25] MEDS: PANTOPRAZOLE 40 MG TABLET PO (16:37)
[2024-03-25 16:57] LABS: Glucose Point of Care 87 mg/dl (65-105)
[2024-03-25 17:47] LABS: Troponin I < 0.012 ng/mL (0.000-0.034)
[2024-03-25] MEDS: MONTELUKAST SODIUM 10 MG TABLET PO (22:05)
[2024-03-25] MEDS: ATORVASTATIN 40 MG TABLET PO (22:05)
[2024-03-25] MEDS: ACETAMINOPHEN 325 MG TABLET 650 MG PO (22:21)
[2024-03-25] MEDS: LATANOPROST 0.005% OP SOLN 2.5 ML BTL 1 DROP EACH EYE (22:23)
[2024-03-26] VITALS (12 sets, daily range): BP systolic 125–137; BP diastolic 69–82; PULSE 82–89; RESP 16–20; TEMP 36.1–37; O2SAT 94–98
[2024-03-26] MEDS: IPRATROPIUM 0.5 MG/ALBUTEROL SULFATE 2.5 MG AMPUL.NEB 3 ML INHALATION ×4 (02:12→19:42)
[2024-03-26] MEDS: methylPREDNISolone SOD SUCC 125 MG VIAL 60 MG IV PUSH (05:52)
[2024-03-26] MEDS: ACETAMINOPHEN 325 MG TABLET 650 MG PO (05:52)
[2024-03-26 06:35] LABS: Hemoglobin 8.9 g/dL (12.0-15.0); Mean Corpuscular HGB Conc 30.7 g/dl (32-36); Mean Corpuscular Hemoglobin 27.6 pg (26-34); Mean Corpuscular Volume 90.1 fl (80-100); Mean Platelet Volume 10.2 fl (7.4-10.4); Platelet Count Result 310 k/mm3 (150-375); Red Blood Count 3.22 M/mm3 (4.2-5.4); Red Cell Distribution Width 15.5 % (11.5-14.5); White Blood Count 8.8 K/mm3 (4.5-10.0)
[2024-03-26 06:55] LABS: Iron 41 ug/dL (37-170)
[2024-03-26 06:58] LABS: Digoxin 0.8 ng/mL (0.8-2.0)
[2024-03-26 08:21] LABS: Glucose Point of Care 196 mg/dl (65-105)
[2024-03-26 08:53] LABS: Percent Iron Saturation 21 % (20-50)
[2024-03-26] MEDS: LIDOCAINE 5% PATCH 1 PATCH TRANSDERM (09:42)
[2024-03-26] MEDS: GABAPENTIN 100 MG CAPSULE 200 MG PO ×2 (09:44→17:25)
[2024-03-26] MEDS: CALCIUM ACETATE 667 MG TABLET PO ×2 (09:45→17:26)
[2024-03-26] MEDS: MIDODRINE HCL 2.5 MG TABLET 15 MG PO ×3 (09:45→17:25)
[2024-03-26] MEDS: CHOLECALCIFEROL 1,000 UNITS TABLET 3000 UNITS PO (09:45)
[2024-03-26] MEDS: FLUoxetine HCL 10 MG CAPSULE PO (09:46)
[2024-03-26] MEDS: ASPIRIN 81 MG ENTERIC TABLET PO (09:46)
[2024-03-26] MEDS: BENZONATATE 100 MG CAPSULE PO ×3 (09:46→17:26)
[2024-03-26] MEDS: PANTOPRAZOLE 40 MG TABLET PO ×2 (09:46→17:27)
[2024-03-26] MEDS: HEPARIN SODIUM 5,000 UNITS/ML VIAL 5000 UNITS SUB-Q ×2 (09:46→20:56)
[2024-03-26] MEDS: FLUTICASONE PROPIONATE 0.05% NA SPR 16 GM BTL (*BKC) 2 SPRAY NASAL (09:50)
[2024-03-26] MEDS: VITAMIN B CMPLX/VIT C/FOLIC AC 1 CAPSULE 1 CAP PO (09:51)
[2024-03-26 10:22] LABS: Hepatitis B Surface Antigen Negative (Negative)
[2024-03-26 10:58] LABS: Albumin Level 4.1 g/dL (3.5-5.1); Anion Gap 16 mmol/L (4-12); Blood Urea Nitrogen 36 mg/dL (7-17); Calcium 9.3 mg/dL (8.4-10.2); Carbon Dioxide 23 mmol/L (22-30); Chloride 98 mmol/L (98-107); Estimated CRCL calculation 6 ml/min; Estimated Glomerular Filt Rate 6; Glucose 153 mg/dL (65-110); Phosphorus 5.8 mg/dL (2.5-4.5); Potassium 4.6 mmol/L (3.4-5.0); Sodium 137 mmol/L (137-145)
[2024-03-26 11:06] LABS: Hemoglobin A1C 4.7 % (<5.7)
[2024-03-26 11:16] LABS: Hepatitis B Surface Anti Res Positive
--- NOTE | 2024-03-26 11:40 | PM.CNNEP ---
Assessment and Plan Assessment and plan (1) End stage renal disease: Code(s): N18.6 - End stage renal disease Status: Chronic Assessment and Plan: HD tomorrow continue Monday/Monday/Monday dialysis schedule while in [facility] follow electrolytes, volume status, and clearance (2) Shortness of breath: Code(s): R06.02 - Shortness of breath Status: Acute Assessment and Plan: as noted on presentation acute worsening noted 1 week after influenza diagnosis known history of asthma and reactive airway disease imaging noted: CXR: new airspace opacity lateral left lower lung zone which could be due to atelectasis, pneumonia, paracardial fat pad or some combination thereof and cardiomegaly CT of chest: scattered chronic interstitial lung disease in both lungs which include multiple tiny calcified nodules consistent with either sequela of old granulomatous disease or potentially dystrophic calcification related to renal osteodystrophy no fevers or leukocytosis some clinical improvement with bronchodilators and steroids along with antibiotics continue supportive therapy (3) Anemia: Code(s): D64.9 - Anemia, unspecified Status: Chronic Assessment and Plan: due to ESRD along with acute illness B12 and folate normal; iron studies c/w anemia of chronic disease SHERRI with HD follow trend of H/H (4) Influenza: Code(s): J11.1 - Influenza due to unidentified influenza virus with other respiratory manifestations Status: Acute Assessment and Plan: diagnosed with influenza 1 week prior to admission and completed a course of Tamiflu repeat testing negative continue supportive therapy (5) Obstructive sleep apnea: Code(s): G47.33 - Obstructive sleep apnea (adult) (pediatric) Status: Acute Assessment and Plan: continue CPAP at night and with naps (6) Type II diabetes mellitus: Code(s): E11.9 - Type 2 diabetes mellitus without complications Status: Acute Assessment and Plan: noted in the past but now diet controlled hyperglycemia noted with steroid use glycemic control per hospitalists I will continue to follow the patient with you while she remains hospitalized and make further recommendations as deemed necessary. Thank you for allowing me to participate in the care of this patient. History of Present Illness Reason for Consult Consult date: 03/26/24 Reason for consult: end stage renal disease Chief Complaint Chief complaint: Pneumonia History of Present Illness Narrative: The patient is a 68-year-old female with multiple medical problems as outlined below who presented to [facility] ER with complaints of feeling short of breath and cough. The patient states that for the last 2-3 weeks she has had a cough of productive clear sputum although she did notice occasional hemoptysis about 1-2 days ago. In association with the symptoms, she has had complaints of headaches, chills, increasing shortness of breath, wheezing, left upper back pain, and generalized body aches. She did apparently went to [facility] Emergency Room several days ago ( 03/16/2024) and apparently tested positive for influenza A and was treated with a course of Tamiflu and azithromycin. Despite this medication intervention, she continues to have the above symptoms. She denies any nausea, vomiting, diarrhea but does report chest discomfort secondary to the increasing cough for last few weeks. While at her scheduled dialysis treatment today, nursing staff noted her wheezing and the patient reported crackles in my lungs as well. Her primary pathology laboratory aides teacher saw her at her scheduled dialysis treatment yesterday and recommended that she come to the ER for further assessment given the progression of her symptoms despite previous intervention. Workup and evaluation emergency room note that the patient be hemodynamically stable and afebrile. However, she was mildly tachypneic. Routine blood test demonstrated negativity with regard to viral testing for influenza, COVID, and RSV and her lactic acid was well within normal limits and her chemistry panel demonstrated labs consistent with her known history of end-stage renal disease without any critical electrolyte abnormalities. Her BNP was greater than 30,000, her troponin was negative, and her CBC was otherwise unremarkable Aside from mild anemia with a hemoglobin of 7.9. Her chest x-ray showed new airspace opacities in the lateral and lower lung hernadez in association with cardiomegaly. Subsequent CT scan of the chest demonstrated scattered bilateral chronic interstitial lung disease which includes small calcified nodules, cardiomegaly, small sliding hiatal hernia, and nephrolithiasis versus atherosclerotic calcifications in the upper pole of her right kidney. Her EKG did not demonstrate any overt ischemic changes. After appropriate cultures were obtained, she was initiated on IV antibiotics and was subsequently admitted to the hospital for further evaluation and therapy. Since her admission, along with IV antibiotics, she was initiated on IV steroids and nebulizer treatments and reports some clinical improvement in her respiratory symptoms. Renal consultation was requested due to her end-stage renal disease. The patient normally dialyzes on a Monday, Monday, Monday schedule under the care of Dr. Jc Moreau at [facility]. She is compliant with her dialysis treatments and as already mentioned, tends to be quite careful in terms of her fluid intake. Fluid removal with dialysis is somewhat challenging for the patient in general given her chronic hypotension requiring midodrine therapy. She has been hospitalized at [facility] in the past for fluid overload due to inability to get her down to her dry weight given her hypotension during her outpatient dialysis treatments and she usually responds to more aggressive dialysis and ultrafiltration daily in effort to optimize her volume status in the past. She completed her dialysis treatment yesterday (and achieved her dry weight) prior to presentation/transfer to the ER for her above symptoms. Currently, at the time my visit, she appears in no apparent distress. Review of Systems Review of Systems: As per HPI. [facility] Past Medical History Medical History (Updated 03/25/24 @ 13:10 by Saul العلي MD) Hx of completed stroke 10/05/23 small left occipital lobe stroke after c-spine surgery Chronic hypotension Chronic obstructive pulmonary disease Hypotension On midodrine. Chronic anticoagulation Renal osteodystrophy Combined systolic and diastolic congestive heart failure Echo 10/2012: severe LV enlargement, moderate LV dysfunction with wall motion abnormality at the inferior basal segment, EF 44%, grade 2 diastolic dysfunction. Non-ischemic cardiomyopathy Negative cardiac catheterization showing no obstructive coronary disease in 2003 at [place]. EF at that time was 20% but has improved to 54% in 02/2015. Chronic anemia History of blood transfusions. Hypothyroidism Gout Kidney stones Peptic ulcer (07/2003) Gastroesophageal reflux disease Deep venous thrombosis (02/2013) Paroxysmal atrial fibrillation s/p Watchman Obstructive sleep apnea End-stage renal disease on hemodialysis (09/2009) Type II diabetes mellitus Complicated by peripheral neuropathy and nephropathy. Asthma Diverticulosis Anxiety Hyperlipidemia Surgical History Surgical History (Updated 03/25/24 @ 12:52 by Saul العلي MD) Hx of cervical spine surgery C3-C6 laminectomies, C2-C7 instrumented posterior spinal fusion on 10/05/23 at [facility] Presence of Watchman left atrial appendage closure device 02/08/24 History of colonoscopy with polypectomy History of cardiac catheterization (08/20/13) Normal coronary arteries per Dr. Oliveros at [place]. Status post creation of arteriovenous fistula Left forearm. History of parathyroidectomy History of cystoscopy (03/2012) History of sleeve gastrectomy (2013) History of cardiac radiofrequency ablation (1993) For SVT. History of mandibular surgery (1987) For TMJ. History of angioplasty History of myomectomy History of cholecystectomy (2014) History of section History of hysterectomy (1993) Family History Family History Mother Hypertension Family history of congestive heart failure Family history of congenital heart disease Family history of arthritis Family history of kidney disease Family history of chronic obstructive pulmonary disease Father Carcinoma of colon Sibling Family history of diabetes mellitus in first degree relative Grandparent Family history of congestive heart failure Diabetes mellitus Father Carcinoma of colon Mother Diabetes mellitus Acute myocardial infarction Hypertension Hyperlipidemia Grandparent Diabetes mellitus Acute myocardial infarction Stomach cancer Other Family history of cardiovascular disease Social History Social History (Updated 03/25/24 @ 12:45 by Saul العلي MD) Social History: Lives alone. Never smoker. No alcohol use. No drug use or hx of drug use. No pets. Surrogate decision maker: Sara Tobin Code status: Full code. Smoking status: Never smoker Second hand tobacco smoke exposure: No Alcohol intake: never Substance use: never Substance use type: does not use Do You Feel Safe in your Home?: Yes Lack of Transportation: No Lack of Food: Sometimes True Current Housing: I Have Housing Concerned About Future Housing: No Difficulty Paying Gas/Electric Bills: No Difficulty Paying for Meds: No Currently Unemployed: No Education: Decline to Answer Difficulty w/ Childcare or Family Care: No Additional living arrangements comments: Lives in [place]. 3 grown children. Additional occupation/education comments: [employer]. Spiritual care concerns: No Meds Home Medications and Allergies Home Medications ?Medication ?Instructions ?Recorded ?Confirmed ?Type calcium acetate(phosphat bind) 667 667 mg PO BIDWM #60 tabs 04/25/23 03/25/24 Rx mg tablet lidocaine 4 % topical patch 1 patch topical DAILY #30 ea 04/25/23 03/25/24 Rx (Lidocaine Pain Relief) vitamin B complex-vitamin C-folic 1 tablet PO DAILY #30 tabs 04/25/23 03/25/24 Rx acid 0.8 mg tablet (Dialyvite 800) acetaminophen 500 mg tablet 500 mg PO QID PRN Fever Or Pain 10/18/23 03/25/24 History cholecalciferol (vitamin D3) 25 3,000 unit PO DAILY 10/18/23 03/25/24 History mcg (1,000 unit) tablet (Vitamin D3) cinacalcet 30 mg tablet (Sensipar) 60 mg PO QMWF 10/18/23 03/25/24 History fluoxetine 10 mg capsule (Prozac) 10 mg PO DAILY 10/18/23 03/25/24 History midodrine 5 mg tablet 15 mg PO TIDWMEAL 10/18/23 03/25/24 History atorvastatin 40 mg tablet 40 mg PO HS 30 days #30 tabs 11/03/23 03/25/24 Rx digoxin 125 mcg (0.125 mg) tablet 125 mcg PO SuTh 30 days #9 tabs 11/03/23 03/25/24 Rx fluticasone propionate 50 2 spray intranasal DAILY 30 days 11/03/23 03/25/24 Rx mcg/actuation nasal #16 grams spray,suspension latanoprost 0.005 % eye drops 1 drp EACH EYE HS 30 days #2.5 mL 11/03/23 03/25/24 Rx (Xalatan) montelukast 10 mg tablet 10 mg PO HS 30 days #30 tabs 11/03/23 03/25/24 Rx (Singulair) oxycodone 5 mg tablet 5 mg PO Q6H PRN Pain Rated 4-10 11/03/23 03/25/24 Rx #28 tabs peg [id number] 1 1 drp EACH EYE TID PRN Dry Eyes 30 11/03/23 03/25/24 Rx %-0.2 %-0.2 % eye drops days #15 mL (Artificial Tears ([id number])) tizanidine 2 mg tablet 2 mg PO TID PRN Muscle Spasm #30 11/03/23 03/25/24 Rx tabs aspirin 81 mg tablet,delayed 81 mg PO DAILY 03/25/24 03/25/24 History release (Adult Aspirin Regimen) gabapentin 100 mg capsule 200 mg PO BID 03/25/24 03/25/24 History lanthanum 1,000 mg chewable tablet 1,000 mg PO .with meals 03/25/24 03/25/24 History omeprazole 20 mg capsule,delayed 20 mg PO BID 03/25/24 03/25/24 History release clopidogrel 75 mg tablet 75 mg PO DAILY 03/28/24 03/28/24 History Allergies Allergy/AdvReac Type Severity Reaction Status Date / Time lisinopril Allergy Unknown Unknown Verified 03/25/24 16:07 propoxyphene Allergy Unknown Unknown Verified 03/25/24 16:07 valsartan Allergy Unknown lost voice Verified 03/25/24 16:07 Vital Signs Vital Signs Temp Pulse Resp BP Pulse Ox O2 Del Method O2 Flow Rate 03/26/24 11:37 86 20 95 Room Air 03/26/24 07:40 85 20 03/26/24 07:24 86 20 03/26/24 07:24 86 20 97 Nasal Cannula 2 03/26/24 06:00 97.0 F L 83 16 125/69 97 03/26/24 02:20 82 20 03/26/24 02:12 89 20 03/25/24 21:19 97.6 F 104 H 20 130/79 93 03/25/24 20:11 89 20 03/25/24 20:00 97 Nasal Cannula 2 03/25/24 19:50 92 20 Exam Narrative: GENERAL APPEARANCE: somewhat chronically ill-appearing female in no acute distress HEENT: normocephalic, atraumatic, mild pallor to conjunctiva and sclera, nares patient NECK: no lymphadenopathy, thyromegaly, or JVD MOUTH: normal lips, teeth, and gums CARDIOVASCULAR: RRR, normal S1 and S2, no rub RESPIRATORY: coarse with a few wheezes and bibasilar rhonchi ABDOMEN: soft, nontender, nondistended, positive bowel sounds present EXTREMITIES: no evidence of cyanosis, clubbing, or edema NEUROLOGICAL: alert and oriented x 3; CN II - XII intact bilaterally; no focal deficits noted Results Lab Results 03/31/24 05:39 03/31/24 05:39 Lab results: Most recent lab results Calcium 9.3 mg/dL (8.4-10.2) 03/26/24 06:02 Phosphorus 5.8 mg/dL (2.5-4.5) H 03/26/24 06:02
[2024-03-26 11:50] LABS: Glucose Point of Care 311 mg/dl (65-105)
[2024-03-26 11:52] LABS: Folic Acid > 20.0 ng/mL (2.76->20)
[2024-03-26] MEDS: INSULIN ASPART (*BKC) 100 UNITS/ML SUB-Q (12:39)
--- NOTE | 2024-03-26 12:57 | PC.NURSE ---
This RN admitted pt to room with bag of belongings. Pt states she had a pair of black and brown [employer] cheaters in them that are not present in the bag today. She also states that [facility] or [facility] had her Medicare card, but that she did not get it back. Call made to ER to inquire about glasses and card. Spoke with [facility], who stated they do not have them. She said she would check in another area and let this RN know.
--- NOTE | 2024-03-26 13:51 | PM.IMPN ---
Progress Note: A&P Assessment and Plan (1) Shortness of breath: Code(s): R06.02 - Shortness of breath Status: Acute Assessment and Plan: Patient presents with worsening SOB 1 week after being diagnosed with influenza. CT chest showing what appears to be more chronic findings. WBC normal and no fevers. She is having pleuritic chest pain and scant hemopytsis but sputum o/w clear. Consider PE but no evidence of DVT, tachycardia or hypoxia. And another diagnosis more likely. She denies that she has COPD but does have asthma; suspect she is having more of an asthma exacerbation Doubt fluid overload since just had HD. BNP probably chronically elevated. Started bronchodilators and steroids. MRSA nasal swab negative. BCx returned positive with Gram negative bacilli in aerobic bottle only (other set NGTD) Currently on Rocephin and Doxycycline. No old Cx to compare. Advance Rocephin to 2gm dose and follow up on culture results. Consider related to urine source. She is s/p cholecystectomy. Follow up on BCx results. Narrow coverage. Check CT A/P. (2) Asthma: Code(s): J45.909 - Unspecified asthma, uncomplicated Status: Acute Assessment and Plan: As above (3) Influenza: Code(s): J11.1 - Influenza due to unidentified influenza virus with other respiratory manifestations Status: Acute Assessment and Plan: Patient diagnosed with influenza and completed a course of Tamiflu Repeat testing negative. Hold off on repeat treatment since stable and testing negative now Follow (4) End-stage renal disease on hemodialysis: Onset Date: 09/2009 Code(s): N18.6 - End stage renal disease; Z99.2 - Dependence on renal dialysis Status: Acute Assessment and Plan: Patient on dialysis --. Nephrology consult for dialysis treatment plan. (5) Chronic anemia: Code(s): D64.9 - Anemia, unspecified Status: Chronic Assessment and Plan: Patient with chronic anemia. Hgb last year was in the 8-11 range. Hgb 7.9 on admission and 8.9 on repeat. B12 and folate normal. Iron studies c/w anemia of chronic disease probably from ESRD. Follow (6) Obstructive sleep apnea: Code(s): G47.33 - Obstructive sleep apnea (adult) (pediatric) Status: Acute Assessment and Plan: Patient with LENORA. Continue CPAP at night and with naps as she tolerates (7) Back pain: Code(s): M54.9 - Dorsalgia, unspecified Status: Acute Assessment and Plan: Patient with mid thoracic palpable back pain. No trauma. Xray showing no fractures. Continue Lidocaine patch (8) Type II diabetes mellitus: Code(s): E11.9 - Type 2 diabetes mellitus without complications Status: Acute Assessment and Plan: Patient has DM in the past requiring sliding scale insulin but not requiring treatment now. A1c 4.7%. She has peripheral neuropathy and takes Gabapentin for this. Continue sliding scale with hypoglycemia protocol. Plan DVT prophylaxis - Heparin Code status - full Debility - PT/OT Subjective Date/time seen: 03/26/24 13:51 Interval history: 68yo female with ESRD on HD --, CHF, PAFib s/p Watchman, DM and LENORA here for feeling short of breath and cough. Oxygen added overnight for SOB but she was not hypoxic. SOB better this morning. Cough productive of mostly clear sputum. Chest feels 'tight' worse with deep breathing. Back pain better Exam Narrative: AF 97.0 125/69 83 20 95% ra Gen - NARD Chest - bilateral basilar crackles, nml RR CV -RRR S1/S2 Abd - Soft. Nontender. Nondistended. Ext -no pedal edema. Thrill and bruit left upper arm. Psych - normal mood Skin - warm and dry. Objective Data Vital Signs Vital Signs: Vital Signs - 24 hr 03/25/24 14:25 03/25/24 14:43 03/25/24 14:44 Temperature Pulse Rate 89 80 Respiratory Rate 16 20 Blood Pressure 139/83 Pulse Oximetry 99 95 Oxygen Delivery Room Air Oxygen Flow Rate 03/25/24 14:53 03/25/24 19:50 03/25/24 20:00 Temperature Pulse Rate 89 92 Respiratory Rate 20 20 Blood Pressure Pulse Oximetry 97 Oxygen Delivery Nasal Cannula Oxygen Flow Rate 2 03/25/24 20:11 03/25/24 21:19 03/26/24 02:12 Temperature 97.6 F Pulse Rate 89 104 H 89 Respiratory Rate 20 20 20 Blood Pressure 130/79 Pulse Oximetry 93 Oxygen Delivery Oxygen Flow Rate 03/26/24 02:20 03/26/24 06:00 03/26/24 07:24 Temperature 97.0 F L Pulse Rate 82 83 86 Respiratory Rate 20 16 20 Blood Pressure 125/69 Pulse Oximetry 97 97 Oxygen Delivery Nasal Cannula Oxygen Flow Rate 2 03/26/24 07:24 03/26/24 07:40 03/26/24 13:37 Temperature Pulse Rate 86 85 86 Respiratory Rate 20 20 20 Blood Pressure Pulse Oximetry 95 Oxygen Delivery Room Air Oxygen Flow Rate 03/26/24 13:37 03/26/24 13:50 Temperature Pulse Rate 86 83 Respiratory Rate 20 20 Blood Pressure Pulse Oximetry Oxygen Delivery Oxygen Flow Rate Intake/Output Intake/Output: Intake & Output 03/23/24 03/24/24 03/25/24 03/26/24 23:59 23:59 23:59 23:59 Intake Total 800 560 Balance 800 560 Meds/Results Medications: Active Medications Generic Name Dose Route Start Last Admin Trade Name Freq PRN Reason Stop Dose Admin Acetaminophen 650 mg 03/25/24 11:48 03/26/24 05:52 Acetaminophen 325 Mg Tablet PO 650 mg Q4H PRN Administration Mild Pain (1-3) or Fever Acetaminophen 500 mg 03/25/24 13:28 Acetaminophen 500 Mg Tablet PO QID PRN Fever Or Pain 1-3 Albuterol 2 puff 03/25/24 22:34 Albuterol Sulfate (*Sp) Aerosol 1 Puff INHALATION QIDRT PRN Shortness Of Breath Albuterol/Ipratropium 3 ml 03/25/24 14:00 03/26/24 13:37 Ipratropium 0.5 Mg/Albuterol Sulfate 2.5 Mg Ampul.Neb 3 Ml INHALATION 3 ml Q6HRT JAZMIN Administration Artificial Tears 1 drop 03/25/24 13:28 Artificial Tears Ophth Soln 15 Ml Bottle EACH EYE TID PRN Dry Eyes Aspirin 81 mg 03/26/24 09:00 03/26/24 09:46 Aspirin 81 Mg Enteric Tablet PO 81 mg DAILY JAZMIN Administration Atorvastatin Calcium 40 mg 03/25/24 21:00 03/25/24 22:05 Atorvastatin 40 Mg Tablet PO 40 mg HS JAZMIN Administration Benzonatate 100 mg 03/26/24 09:00 03/26/24 09:46 Benzonatate 100 Mg Capsule PO 03/27/24 08:59 100 mg TID JAZMIN Administration Calcium Acetate 667 mg 03/25/24 17:00 03/26/24 09:45 Calcium Acetate 667 Mg Tablet PO 667 mg BIDWM JAZMIN Administration Cinacalcet 60 mg 03/27/24 09:00 Cinacalcet 30 Mg Tablet PO MoWeFr@0900 JAZMIN Dextrose 12.5 gm 03/25/24 13:22 Dextrose 50% 25 Gm/50 Ml Syringe IV PUSH PRN PRN Hypoglycemia Protocol Digoxin 125 mcg 03/28/24 09:00 Digoxin Tab 125 Mcg Tablet PO [id number]@0900 JAZMIN Fluoxetine HCl 10 mg 03/26/24 09:00 03/26/24 09:46 Fluoxetine Hcl 10 Mg Capsule PO 10 mg DAILY JAZMIN Administration Fluticasone Propionate 2 spray 03/26/24 09:00 03/26/24 09:50 Fluticasone Propionate 0.05% Na Spr 16 Gm Btl (*Bkc) NASAL 2 spray DAILY JAZMIN Administration Gabapentin 200 mg 03/25/24 17:00 03/26/24 09:44 Gabapentin 100 Mg Capsule PO 200 mg BID JAZMIN Administration Glucagon 1 mg 03/25/24 13:22 Glucagon For Inj 1 Mg Vial IM PRN PRN Hypoglycemia Protocol Glucose 15 gm 03/25/24 13:22 Glucose Oral Gel 15 Gm Of Glucse In 37.5 Gm Tube PO PRN PRN Hypoglycemia Protocol Heparin Sodium (Porcine) 5,000 units 03/26/24 09:00 03/26/24 09:46 Heparin Sodium 5,000 Units/Ml Vial SUB-Q 5,000 units Q12HR JAZMIN Administration Ceftriaxone Sodium 1 gm in 50 mls @ 100 mls/hr 03/26/24 09:00 03/26/24 09:43 Rocephin 1 Gm/Ns 50 Ml IVPB 100 mls/hr Q24H JAZMIN Administration Azithromycin 500 mg in 250 mls @ 250 mls/hr 03/26/24 09:00 Zithromax IVPB Q24H JAZMIN Dextrose 1,000 mls @ 100 mls/hr 03/25/24 13:22 Dextrose 5% 1,000 Ml IVPB PRN PRN Hypoglycemia Protocol Insulin Aspart 3 - 6 units 03/25/24 17:00 03/26/24 12:39 Insulin Aspart (*Bkc) 100 Units/Ml SUB-Q 5 units TIDWM JAZMIN Administration Protocol Latanoprost 1 drop 03/25/24 21:00 03/25/24 22:23 Latanoprost 0.005% Op Soln 2.5 Ml Btl EACH EYE 1 drop HS JAZMIN Administration Lidocaine 1 patch 03/26/24 09:00 03/26/24 09:42 Lidocaine 5% Patch TRANSDERM 1 patch DAILY JAZMIN Administration Methylprednisolone Sodium Succinate 60 mg 03/25/24 14:00 03/26/24 05:52 Methylprednisolone Sod Succ 125 Mg Vial IV PUSH 60 mg Q8HR JAZMIN Administration Midodrine 15 mg 03/25/24 17:00 03/26/24 12:39 Midodrine Hcl 2.5 Mg Tablet PO 15 mg TIDWM JAZMIN Administration Miscellaneous Information 1 each 03/25/24 00:01 Lanthanum Is Nonformulary. Can She Use Home Supply? XX 04/24/24 00:00 CLARIFY [facility] Montelukast Sodium 10 mg 03/25/24 21:00 03/25/24 22:05 Montelukast Sodium 10 Mg Tablet PO 10 mg HS JAZMIN Administration Non-Formulary Medication 1,000 mg 03/25/24 13:30 Lanthanum PO 04/24/24 13:29 .with meals [facility] Oxycodone HCl 5 mg 03/25/24 13:28 03/25/24 16:32 Oxycodone Hcl (*Crx) 5 Mg Tab Ir PO 5 mg Q6H PRN Administration Pain Rated 4-10 Pantoprazole Sodium 40 mg 03/25/24 17:00 03/26/24 09:46 Pantoprazole 40 Mg Tablet PO 40 mg BID JAZMIN Administration Tizanidine HCl 2 mg 03/25/24 13:28 Tizanidine Hcl 2 Mg Tablet PO TID PRN Muscle Spasm Vitamin B Complex/Folic Acid 1 cap 03/26/24 09:00 03/26/24 09:51 Vitamin B Cmplx/Vit C/Folic Ac 1 Capsule PO 1 cap QAM [facility] Administration Vitamin D 3,000 units 03/26/24 09:00 03/26/24 09:45 Cholecalciferol 1,000 Units Tablet PO 3,000 units DAILY [facility] Administration Radiology Results: ITS Impressions Chest X-Ray 03/25/24 10:24 IMPRESSION: 1. New airspace opacity lateral left lower lung zone which could be due to atelectasis, pneumonia, paracardial fat pad or some combination thereof. 2. Cardiomegaly. Chest CT 03/25/24 10:53 IMPRESSION: 1. Scattered chronic interstitial lung disease in both lungs which include multiple tiny calcified nodules consistent with either sequela of old granulomatous disease or potentially dystrophic calcification related to renal osteodystrophy. 2. Cardiomegaly. 3. Small sliding-type hiatal hernia. 4. Nephrolithiasis versus atherosclerotic calcifications at the visualized portion of the upper pole the right kidney. Thoracic Spine X-Ray 03/25/24 14:10 IMPRESSION: No acute fracture or traumatic malalignment detected in the thoracic spine. Labs Labs: Laboratory Results - last 24 hr 03/25/24 03/25/24 03/25/24 14:17 14:26 16:49 WBC RBC Hgb Hct MCV MCH MCHC RDW Plt Count MPV Sodium Potassium Chloride Carbon Dioxide Anion Gap BUN Creatinine Estim Creat Clear Calc Estimated GFR Glucose POC Capillary Glucose 87 Hemoglobin A1c Calcium Phosphorus Iron TIBC % Saturation Ferritin Troponin I < 0.012 Albumin Vitamin B12 Folate Nasal MRSA (PCR) Not detected Digoxin Hep Bs Antigen Hep Bs Antibody 03/25/24 03/26/24 03/26/24 17:18 06:02 08:11 WBC 8.8 RBC 3.22 L Hgb 8.9 L Hct 29.0 L MCV 90.1 MCH 27.6 MCHC 30.7 L RDW 15.5 H Plt Count 310 MPV 10.2 Sodium 137 Potassium 4.6 Chloride 98 Carbon Dioxide 23 Anion Gap 16 H BUN 36 H D Creatinine 8.21 H Estim Creat Clear Calc 6 Estimated GFR 6 L Glucose 153 H POC Capillary Glucose 196 H Hemoglobin A1c 4.7 Calcium 9.3 Phosphorus 5.8 H Iron 41 TIBC 196 L % Saturation 21 Ferritin 1390.00 H Troponin I < 0.012 Albumin 4.1 Vitamin B12 996.0 H Folate > 20.0 H Nasal MRSA (PCR) Digoxin 0.8 Hep Bs Antigen Negative Hep Bs Antibody Positive 03/26/24 11:35 WBC RBC Hgb Hct MCV MCH MCHC RDW Plt Count MPV Sodium Potassium Chloride Carbon Dioxide Anion Gap BUN Creatinine Estim Creat Clear Calc Estimated GFR Glucose POC Capillary Glucose 311 H Hemoglobin A1c Calcium Phosphorus Iron TIBC % Saturation Ferritin Troponin I Albumin Vitamin B12 Folate Nasal MRSA (PCR) Digoxin Hep Bs Antigen Hep Bs Antibody
[2024-03-26] MEDS: methylPREDNISolone SOD SUCC 40 MG VIAL IV PUSH (14:28)
[2024-03-26] MEDS: DOXYCYCLINE HYCLATE 100 MG TABLET PO ×2 (14:29→20:55)
[2024-03-26 16:29] LABS: Glucose Point of Care 169 mg/dl (65-105)
[2024-03-26] MEDS: ACETAMINOPHEN 500 MG TABLET PO (20:55)
[2024-03-26] MEDS: ATORVASTATIN 40 MG TABLET PO (20:56)
[2024-03-26] MEDS: LATANOPROST 0.005% OP SOLN 2.5 ML BTL 1 DROP EACH EYE (20:56)
[2024-03-26] MEDS: MONTELUKAST SODIUM 10 MG TABLET PO (20:56)
[2024-03-26 21:16] LABS: Glucose Point of Care 279 mg/dl (65-105)
[2024-03-27] VITALS (23 sets, daily range): BP systolic 102–133; BP diastolic 64–89; PULSE 75–98; RESP 16–22; TEMP 36.1–37; O2SAT 90–98
[2024-03-27] MEDS: IPRATROPIUM 0.5 MG/ALBUTEROL SULFATE 2.5 MG AMPUL.NEB 3 ML INHALATION ×2 (07:37→14:18)
[2024-03-27 08:02] LABS: Glucose Point of Care 164 mg/dl (65-105)
[2024-03-27 08:57] LABS: Hematocrit 28.1 % (37.0-47.0); Hemoglobin 8.5 g/dL (12.0-15.0); Mean Corpuscular HGB Conc 30.2 g/dl (32-36); Mean Corpuscular Hemoglobin 27.5 pg (26-34); Mean Corpuscular Volume 90.9 fl (80-100); Mean Platelet Volume 10.4 fl (7.4-10.4); Platelet Count Result 334 k/mm3 (150-375); Red Blood Count 3.09 M/mm3 (4.2-5.4); Red Cell Distribution Width 15.9 % (11.5-14.5); White Blood Count 11.8 K/mm3 (4.5-10.0)
[2024-03-27 09:12] LABS: Anion Gap 17 mmol/L (4-12); Blood Urea Nitrogen 54 mg/dL (7-17); Calcium 10.2 mg/dL (8.4-10.2); Carbon Dioxide 24 mmol/L (22-30); Chloride 99 mmol/L (98-107); Estimated CRCL calculation 5 ml/min; Estimated Glomerular Filt Rate 4; Glucose 140 mg/dL (65-110); Phosphorus 5.8 mg/dL (2.5-4.5); Potassium 4.9 mmol/L (3.4-5.0); Sodium 140 mmol/L (137-145)
--- NOTE | 2024-03-27 10:06 | PM.IMPN ---
Progress Note: A&P Assessment and Plan (1) Shortness of breath: Code(s): R06.02 - Shortness of breath Status: Acute Assessment and Plan: Patient presents with worsening SOB 1 week after being diagnosed with influenza. CT chest showing what appears to be more chronic findings. WBC normal and no fevers. She is having pleuritic chest pain and scant hemopytsis but sputum o/w clear. Consider PE but no evidence of DVT, tachycardia or hypoxia. And another diagnosis more likely. She denies that she has COPD but does have asthma; suspect she is having more of an asthma exacerbation Doubt fluid overload since just had HD. BNP probably chronically elevated. CXR: 1. New airspace opacity lateral left lower lung zone which could be due to atelectasis, pneumonia, paracardial fat pad or some combination thereof. 2. Cardiomegaly. Chest CT: 1. Scattered chronic interstitial lung disease in both lungs which include multiple tiny calcified nodules consistent with either sequela of old granulomatous disease or potentially dystrophic calcification related to renal osteodystrophy. 2. Cardiomegaly. 3. Small sliding-type hiatal hernia. 4. Nephrolithiasis versus atherosclerotic calcifications at the visualized portion of the upper pole the right kidney. - MRSA nasal swab negative. - Started bronchodilators and steroids. - BCx returned positive with Gram negative bacilli in aerobic bottle only (other set NGTD) - Currently on Rocephin and Doxycycline. No old Cx to compare. Advance Rocephin to 2gm dose and follow up on culture results. - Follow up on BCx results. Narrow coverage. Check CT A/P. - Monitor vital signs, I&Os, neuro status and patient is a fall risk - Follow WBC, serum electrolytes, temperature curves and cultures (2) Asthma: Code(s): J45.909 - Unspecified asthma, uncomplicated Status: Acute Assessment and Plan: As above (3) Influenza: Code(s): J11.1 - Influenza due to unidentified influenza virus with other respiratory manifestations Status: Acute Assessment and Plan: Patient diagnosed with influenza and completed a course of Tamiflu Repeat testing negative. Hold off on repeat treatment since stable and testing negative now Follow (4) End-stage renal disease on hemodialysis: Onset Date: 09/2009 Code(s): N18.6 - End stage renal disease; Z99.2 - Dependence on renal dialysis Status: Acute Assessment and Plan: Patient on dialysis M-W-F. Nephrology consult for dialysis treatment plan. (5) Chronic anemia: Code(s): D64.9 - Anemia, unspecified Status: Chronic Assessment and Plan: Patient with chronic anemia. Hgb last year was in the 8-11 range. Hgb 7.9 on admission and 8.9 on repeat. H/H 8.5/28.1 on am labs B12 and folate normal. Iron studies c/w anemia of chronic disease probably from ESRD. Follow (6) Obstructive sleep apnea: Code(s): G47.33 - Obstructive sleep apnea (adult) (pediatric) Status: Acute Assessment and Plan: Patient with LENORA. Continue CPAP at night and with naps as she tolerates (7) Back pain: Code(s): M54.9 - Dorsalgia, unspecified Status: Acute Assessment and Plan: Patient with mid thoracic palpable back pain. No trauma. Xray showing no fractures. Continue Lidocaine patch (8) Type II diabetes mellitus: Code(s): E11.9 - Type 2 diabetes mellitus without complications Status: Acute Assessment and Plan: Patient has DM in the past requiring sliding scale insulin but not requiring treatment now. A1c 4.7%. She has peripheral neuropathy and takes Gabapentin for this. Continue sliding scale with hypoglycemia protocol. Plan DVT prophylaxis - Heparin Code status - full Debility - PT/OT Time Spent With Patient Time with patient: 25 - 35 minutes Subjective Date/time seen: 03/27/24 10:06 Interval history: 68yo female with ESRD on HD M-W-, CHF, PAFib s/p Watchman, DM and LENORA here for feeling short of breath and cough. Patient is pleasant lying comfortably in bed. She continues to endorse shortness of breath and a cough. Has no other complaints denies chest pain, palpitations, nausea /vomiting, and abdominal pain. Received a phone call from patient's RN stating that patient was complaining of right-sided chest pain. Reported the patient's room and she continues to endorse chest pain without radiation that she describes as sharp. Chest pain is reproducible on exam and improved with Tylenol. EKG was negative for acute ischemia and troponin was within normal limits. Chest pain was likely musculoskeletal in etiology given patient's cough. Review of Systems Review of Systems: All systems reviewed & are unremarkable except as noted in HPI and below Exam Narrative: AF HR 90 RR 18 SpO2 98 BP 102/89 General: female in no acute respiratory distress who is nontoxic appearing, lying semi recumbent in bed. HEENT: Normocephalic. Atraumatic. Extraocular movement intact. Sclera clear and anicteric. No facial asymmetry. Chest: Lungs are coarse to auscultation bilaterally with crackles in the bases. No wheezes. CV: Heart was regular rate and rhythm. S1-S2. No murmurs, gallops, or rubs. Abd: Abdomen was soft. Nontender. Nondistended. Positive bowel sounds. No organomegaly or masses. Ext: No clubbing, cyanosis, or edema. 2+ DP pulses bilaterally. Neuro: Patient is alert. Speech is clear. Objective Data Vital Signs Vital Signs: Vital Signs - 24 hr 03/26/24 13:37 03/26/24 13:37 03/26/24 13:50 Temperature Pulse Rate 86 86 83 Respiratory Rate 20 20 20 Blood Pressure Pulse Oximetry 95 Oxygen Delivery Room Air 03/26/24 14:20 03/26/24 19:42 03/26/24 19:44 Temperature 97.6 F Pulse Rate 83 89 Respiratory Rate 19 18 Blood Pressure 128/69 Pulse Oximetry 98 95 Oxygen Delivery Room Air 03/26/24 19:49 03/26/24 20:00 03/26/24 22:00 Temperature 98.6 F Pulse Rate 83 86 Respiratory Rate 18 18 Blood Pressure 137/82 Pulse Oximetry 94 Oxygen Delivery Room Air 03/27/24 06:00 03/27/24 07:38 03/27/24 07:38 Temperature 98.2 F Pulse Rate 81 87 Respiratory Rate 18 20 Blood Pressure 125/83 Pulse Oximetry 92 94 Oxygen Delivery Room Air 03/27/24 07:50 Temperature Pulse Rate 87 Respiratory Rate 20 Blood Pressure Pulse Oximetry Oxygen Delivery Intake/Output Intake/Output: Intake & Output 03/24/24 03/25/24 03/26/24 03/27/24 23:59 23:59 23:59 23:59 Intake Total 800 1230 100 Balance 800 1230 100 Meds/Results Medications: Active Medications Generic Name Dose Route Start Last Admin Trade Name Freq PRN Reason Stop Dose Admin Acetaminophen 500 mg 03/25/24 13:28 03/26/24 20:55 Acetaminophen 500 Mg Tablet PO 500 mg QID PRN Administration Fever Or Pain 1-3 Albuterol 2 puff 03/25/24 22:34 Albuterol Sulfate (*Sp) Aerosol 1 Puff INHALATION QIDRT PRN Shortness Of Breath Albuterol/Ipratropium 3 ml 03/25/24 14:00 03/27/24 07:37 Ipratropium 0.5 Mg/Albuterol Sulfate 2.5 Mg Ampul.Neb 3 Ml INHALATION 3 ml Q6HRT JAZMIN Administration Artificial Tears 1 drop 03/25/24 13:28 Artificial Tears Ophth Soln 15 Ml Bottle EACH EYE TID PRN Dry Eyes Aspirin 81 mg 03/26/24 09:00 03/26/24 09:46 Aspirin 81 Mg Enteric Tablet PO 81 mg DAILY JAZMIN Administration Atorvastatin Calcium 40 mg 03/25/24 21:00 03/26/24 20:56 Atorvastatin 40 Mg Tablet PO 40 mg HS JAZMIN Administration Calcium Acetate 667 mg 03/25/24 17:00 03/26/24 17:26 Calcium Acetate 667 Mg Tablet PO 667 mg BIDWM JAZMIN Administration Cinacalcet 60 mg 03/27/24 09:00 Cinacalcet 30 Mg Tablet PO MoWeFr@0900 JAZMIN Dextrose 12.5 gm 03/25/24 13:22 Dextrose 50% 25 Gm/50 Ml Syringe IV PUSH PRN PRN Hypoglycemia Protocol Digoxin 125 mcg 03/28/24 09:00 Digoxin Tab 125 Mcg Tablet PO SuTh@0900 JAZMIN Doxycycline Hyclate 100 mg 03/26/24 13:55 03/26/24 20:55 Doxycycline Hyclate 100 Mg Tablet PO 03/30/24 21:01 100 mg Q12HR JAZMIN Administration Epoetin Daniele-epbx 10,000 units 03/27/24 18:02 Epoetin Daniele-Epbx 10,000 Units/Ml Vial IV PUSH 03/27/24 18:03 ONCE ONE Fluoxetine HCl 10 mg 03/26/24 09:00 03/26/24 09:46 Fluoxetine Hcl 10 Mg Capsule PO 10 mg DAILY JAZMIN Administration Fluticasone Propionate 2 spray 03/26/24 09:00 03/26/24 09:50 Fluticasone Propionate 0.05% Na Spr 16 Gm Btl (*Bkc) NASAL 2 spray DAILY JAZMIN Administration Gabapentin 200 mg 03/25/24 17:00 03/26/24 17:25 Gabapentin 100 Mg Capsule PO 200 mg BID JAZMIN Administration Glucagon 1 mg 03/25/24 13:22 Glucagon For Inj 1 Mg Vial IM PRN PRN Hypoglycemia Protocol Glucose 15 gm 03/25/24 13:22 Glucose Oral Gel 15 Gm Of Glucse In 37.5 Gm Tube PO PRN PRN Hypoglycemia Protocol Heparin Sodium (Porcine) 5,000 units 03/26/24 09:00 03/26/24 20:56 Heparin Sodium 5,000 Units/Ml Vial SUB-Q 5,000 units Q12HR JAZMIN Administration Dextrose 1,000 mls @ 100 mls/hr 03/25/24 13:22 Dextrose 5% 1,000 Ml IVPB PRN PRN Hypoglycemia Protocol Ceftriaxone Sodium 2 gm in 100 mls @ 200 mls/hr 03/27/24 09:00 Rocephin 2 Gm/Ns 100 Ml IVPB Q24H JAZMIN Albumin Human 50 mls @ 999 mls/hr 03/27/24 06:00 Albutein IVPB 04/26/24 05:59 Q10M PRN HYPOTENSION Insulin Aspart 3 - 6 units 03/25/24 17:00 03/26/24 17:29 Insulin Aspart (*Bkc) 100 Units/Ml SUB-Q Not Given TIDWM JAZMIN Protocol Latanoprost 1 drop 03/25/24 21:00 03/26/24 20:56 Latanoprost 0.005% Op Soln 2.5 Ml Btl EACH EYE 1 drop HS JAZMIN Administration Lidocaine 1 patch 03/26/24 09:00 03/26/24 09:42 Lidocaine 5% Patch TRANSDERM 1 patch DAILY JAZMIN Administration Midodrine 15 mg 03/25/24 17:00 03/26/24 17:25 Midodrine Hcl 2.5 Mg Tablet PO 15 mg TIDWM JAZMIN Administration Miscellaneous Information 1 each 03/25/24 00:01 03/27/24 00:38 Lanthanum Is Nonformulary. Can She Use Home Supply? XX 04/24/24 00:00 Not Given CLARIFY JAZMIN Montelukast Sodium 10 mg 03/25/24 21:00 03/26/24 20:56 Montelukast Sodium 10 Mg Tablet PO 10 mg HS JAZMIN Administration Non-Formulary Medication 1,000 mg 03/25/24 13:30 Lanthanum PO 04/24/24 13:29 .with meals JAZMIN Oxycodone HCl 5 mg 03/25/24 13:28 03/25/24 16:32 Oxycodone Hcl (*Crx) 5 Mg Tab Ir PO 5 mg Q6H PRN Administration Pain Rated 4-10 Pantoprazole Sodium 40 mg 03/25/24 17:00 03/26/24 17:27 Pantoprazole 40 Mg Tablet PO 40 mg BID JAZMIN Administration Tizanidine HCl 2 mg 03/25/24 13:28 Tizanidine Hcl 2 Mg Tablet PO TID PRN Muscle Spasm Vitamin B Complex/Folic Acid 1 cap 03/26/24 09:00 03/26/24 09:51 Vitamin B Cmplx/Vit C/Folic Ac 1 Capsule PO 1 cap QAM JAZMIN Administration Vitamin D 3,000 units 03/26/24 09:00 03/26/24 09:45 Cholecalciferol 1,000 Units Tablet PO 3,000 units DAILY JAZMIN Administration Radiology Results: ITS Impressions Chest X-Ray 03/25/24 10:24 IMPRESSION: 1. New airspace opacity lateral left lower lung zone which could be due to atelectasis, pneumonia, paracardial fat pad or some combination thereof. 2. Cardiomegaly. Chest CT 03/25/24 10:53 IMPRESSION: 1. Scattered chronic interstitial lung disease in both lungs which include multiple tiny calcified nodules consistent with either sequela of old granulomatous disease or potentially dystrophic calcification related to renal osteodystrophy. 2. Cardiomegaly. 3. Small sliding-type hiatal hernia. 4. Nephrolithiasis versus atherosclerotic calcifications at the visualized portion of the upper pole the right kidney. Thoracic Spine X-Ray 03/25/24 14:10 IMPRESSION: No acute fracture or traumatic malalignment detected in the thoracic spine. Labs Labs: Laboratory Results - last 24 hr 03/26/24 03/26/24 03/26/24 06:02 11:35 16:23 WBC RBC Hgb Hct MCV MCH MCHC RDW Plt Count MPV Sodium 137 Potassium 4.6 Chloride 98 Carbon Dioxide 23 Anion Gap 16 H BUN 36 H D Creatinine 8.21 H Estim Creat Clear Calc 6 Estimated GFR 6 L Glucose 153 H POC Capillary Glucose 311 H 169 H Hemoglobin A1c 4.7 Calcium 9.3 Phosphorus 5.8 H % Saturation 21 Ferritin 1390.00 H Albumin 4.1 Vitamin B12 996.0 H Folate > 20.0 H Hep Bs Antigen Negative Hep Bs Antibody Positive 03/26/24 03/27/24 03/27/24 20:06 08:00 08:17 WBC 11.8 H RBC 3.09 L Hgb 8.5 L Hct 28.1 L MCV 90.9 MCH 27.5 MCHC 30.2 L RDW 15.9 H Plt Count 334 MPV 10.4 Sodium 140 Potassium 4.9 Chloride 99 Carbon Dioxide 24 Anion Gap 17 H BUN 54 H D Creatinine 10.42 H Estim Creat Clear Calc 5 Estimated GFR 4 L Glucose 140 H POC Capillary Glucose 279 H 164 H Hemoglobin A1c Calcium 10.2 Phosphorus 5.8 H % Saturation Ferritin Albumin 4.0 Vitamin B12 Folate Hep Bs Antigen Hep Bs Antibody Quality VTE Prophylaxis VTE prophylaxis: pharmacologic ordered
[2024-03-27] MEDS: EPOETIN ALFA-EPBX 10,000 UNITS/ML VIAL 10000 UNITS IV PUSH (11:29)
[2024-03-27] MEDS: HEPARIN SODIUM 1,000 UNITS/ML VIAL 1000 UNITS IV PUSH (11:53)
[2024-03-27] MEDS: HEPARIN SODIUM 1,000 UNITS/ML VIAL 500 UNITS IV PUSH (11:54)
--- NOTE | 2024-03-27 12:11 | P.PNNP_ITS ---
Progress Note: A&P Assessment and Plan (1) End stage renal disease: Code(s): N18.6 - End stage renal disease Status: Chronic Assessment and Plan: * HD today * continue Monday/Monday/Monday dialysis schedule while in [place] * follow electrolytes, volume status, and clearance (2) Shortness of breath: Code(s): R06.02 - Shortness of breath Status: Acute Assessment and Plan: * as noted on presentation * acute worsening noted 1 week after influenza diagnosis * known history of asthma and reactive airway disease * imaging noted: * CXR: new airspace opacity lateral left lower lung zone which could be due to atelectasis, pneumonia, paracardial fat pad or some combination thereof and cardiomegaly * CT of chest: scattered chronic interstitial lung disease in both lungs which include multiple tiny calcified nodules consistent with either sequela of old granulomatous disease or potentially dystrophic calcification related to renal osteodystrophy * no fevers or leukocytosis * clinical improvement with bronchodilators and steroids along with antibiotics * blood culture wih GNB (1 out of 2) * on antibiotics * continue supportive therapy (3) Anemia: Code(s): D64.9 - Anemia, unspecified Status: Chronic Assessment and Plan: * due to ESRD along with acute illness * B12 and folate normal; iron studies c/w anemia of chronic disease * SHERRI with HD * follow trend of H/H (4) Influenza: Code(s): J11.1 - Influenza due to unidentified influenza virus with other respiratory manifestations Status: Acute Assessment and Plan: * diagnosed with influenza 1 week prior to admission and completed a course of Tamiflu * repeat testing negative * continue supportive therapy (5) Obstructive sleep apnea: Code(s): G47.33 - Obstructive sleep apnea (adult) (pediatric) Status: Acute Assessment and Plan: * continue CPAP at night and with naps (6) Type II diabetes mellitus: Code(s): E11.9 - Type 2 diabetes mellitus without complications Status: Acute Assessment and Plan: * noted in the past but now diet controlled * hyperglycemia notes with steroid use * glycemic control per hospitalists Will continue to follow. L Subjective Date/time seen: 03/27/24 12:11 Interval history: Follow-up for end stage renal disease on hemodialysis. Tolerating dialysis treatment at the time of my visit (seen on HD at 12:00PM); breathing/respiratory status seems to be doing better in general and in comparison to admission; concerned that she having issues with hyperglycemia give use of steroids; no other acute issues/events voiced at this time. Exam 2 Narrative: General: WD/WN female in NAD Heart: normal S1 and S2; no rub Lungs: coarse breath sounds; decreased at the bases Abdomen: soft, nontender, nondistended, positive bowel sounds Extremities: no cyanosis or clubbing; no edema Skin: warm and dry Objective Data Vital Signs Vital Signs: Vital Signs Temp Pulse Resp BP Pulse Ox O2 Del Method 03/27/24 12:00 82 122/71 03/27/24 11:45 81 116/71 03/27/24 11:30 83 119/77 03/27/24 11:15 79 116/69 03/27/24 11:00 79 119/67 03/27/24 10:45 75 119/72 03/27/24 10:30 80 122/68 03/27/24 10:15 81 114/69 03/27/24 10:00 85 109/65 03/27/24 09:45 82 123/72 03/27/24 09:30 81 124/73 03/27/24 09:15 87 119/71 03/27/24 09:08 98.6 F 94 18 133/71 03/27/24 08:52 95 130/76 03/27/24 07:50 87 20 03/27/24 07:38 87 20 03/27/24 07:38 94 Room Air 03/27/24 06:00 98.2 F 81 18 125/83 92 03/26/24 22:00 98.6 F 86 18 137/82 94 03/26/24 20:00 Room Air 03/26/24 19:49 83 18 03/26/24 19:44 95 Room Air 03/26/24 19:42 89 18 Intake/Output Intake/Output: Intake & Output 03/24/24 03/25/24 03/26/24 03/27/24 23:59 23:59 23:59 23:59 Intake Total 800 1230 160 Output Total 1534 Balance 800 1230 -1374 Meds/Results Medications: Active Medications Generic Name Dose Route Start Last Admin Trade Name Freq PRN Reason Stop Dose Admin Acetaminophen 500 mg 03/25/24 13:28 03/27/24 15:06 Acetaminophen 500 Mg Tablet PO 500 mg QID PRN Administration Fever Or Pain 1-3 Albuterol 2 puff 03/25/24 22:34 Albuterol Sulfate (*Sp) Aerosol 1 Puff INHALATION QIDRT PRN Shortness Of Breath Albuterol/Ipratropium 3 ml 03/25/24 14:00 03/27/24 14:18 Ipratropium 0.5 Mg/Albuterol Sulfate 2.5 Mg Ampul.Neb 3 Ml INHALATION 3 ml Q6HRT JAZMIN Administration Artificial Tears 1 drop 03/25/24 13:28 Artificial Tears Ophth Soln 15 Ml Bottle EACH EYE TID PRN Dry Eyes Aspirin 81 mg 03/26/24 09:00 03/27/24 12:41 Aspirin 81 Mg Enteric Tablet PO 81 mg DAILY JAZMIN Administration Atorvastatin Calcium 40 mg 03/25/24 21:00 03/26/24 20:56 Atorvastatin 40 Mg Tablet PO 40 mg HS JAZMIN Administration Calcium Acetate 667 mg 03/25/24 17:00 03/27/24 12:41 Calcium Acetate 667 Mg Tablet PO 667 mg BIDWM JAZMIN Administration Cinacalcet 60 mg 03/27/24 09:00 03/27/24 12:59 Cinacalcet 30 Mg Tablet PO 60 mg MoWeFr@0900 JAZMIN Administration Dextrose 12.5 gm 03/25/24 13:22 Dextrose 50% 25 Gm/50 Ml Syringe IV PUSH PRN PRN Hypoglycemia Protocol Digoxin 125 mcg 03/28/24 09:00 Digoxin Tab 125 Mcg Tablet PO SuTh@0900 [facility] Doxycycline Hyclate 100 mg 03/26/24 13:55 03/27/24 12:41 Doxycycline Hyclate 100 Mg Tablet PO 03/30/24 21:01 100 mg Q12HR JAZMIN Administration Epoetin Daniele-epbx 10,000 units 03/27/24 18:02 03/27/24 11:29 Epoetin Daniele-Epbx 10,000 Units/Ml Vial IV PUSH 03/27/24 18:03 10,000 units ONCE ONE Administration Fluoxetine HCl 10 mg 03/26/24 09:00 03/27/24 12:52 Fluoxetine Hcl 10 Mg Capsule PO 10 mg DAILY JAZMIN Administration Fluticasone Propionate 2 spray 03/26/24 09:00 03/27/24 12:53 Fluticasone Propionate 0.05% Na Spr 16 Gm Btl (*Bkc) NASAL 2 spray DAILY JAZMIN Administration Gabapentin 200 mg 03/25/24 17:00 03/27/24 12:41 Gabapentin 100 Mg Capsule PO 200 mg BID JAZMIN Administration Glucagon 1 mg 03/25/24 13:22 Glucagon For Inj 1 Mg Vial IM PRN PRN Hypoglycemia Protocol Glucose 15 gm 03/25/24 13:22 Glucose Oral Gel 15 Gm Of Glucse In 37.5 Gm Tube PO PRN PRN Hypoglycemia Protocol Heparin Sodium (Porcine) 5,000 units 03/26/24 09:00 03/27/24 12:40 Heparin Sodium 5,000 Units/Ml Vial SUB-Q 5,000 units Q12HR JAZMIN Administration Dextrose 1,000 mls @ 100 mls/hr 03/25/24 13:22 Dextrose 5% 1,000 Ml IVPB PRN PRN Hypoglycemia Protocol Ceftriaxone Sodium 2 gm in 100 mls @ 200 mls/hr 03/27/24 09:00 03/27/24 12:40 Rocephin 2 Gm/Ns 100 Ml IVPB 200 mls/hr Q24H JAZMIN Administration Albumin Human 50 mls @ 999 mls/hr 03/27/24 06:00 Albutein IVPB 04/26/24 05:59 Q10M PRN HYPOTENSION Insulin Aspart 3 - 6 units 03/25/24 17:00 03/27/24 12:53 Insulin Aspart (*Bkc) 100 Units/Ml SUB-Q Not Given TIDWM JAZMIN Protocol Latanoprost 1 drop 03/25/24 21:00 03/26/24 20:56 Latanoprost 0.005% Op Soln 2.5 Ml Btl EACH EYE 1 drop HS JAZMIN Administration Lidocaine 1 patch 03/26/24 09:00 03/27/24 12:52 Lidocaine 5% Patch TRANSDERM 1 patch DAILY JAZMIN Administration Midodrine 15 mg 03/25/24 17:00 03/27/24 12:40 Midodrine Hcl 2.5 Mg Tablet PO 15 mg TIDWM JAZMIN Administration Miscellaneous Information 1 each 03/25/24 00:01 03/27/24 00:38 Lanthanum Is Nonformulary. Can She Use Home Supply? XX 04/24/24 00:00 Not Given CLARIFY JAZMIN Montelukast Sodium 10 mg 03/25/24 21:00 03/26/24 20:56 Montelukast Sodium 10 Mg Tablet PO 10 mg HS JAZMIN Administration Non-Formulary Medication 1,000 mg 03/25/24 13:30 Lanthanum PO 04/24/24 13:29 .with meals [facility] Oxycodone HCl 5 mg 03/25/24 13:28 03/25/24 16:32 Oxycodone Hcl (*Crx) 5 Mg Tab Ir PO 5 mg Q6H PRN Administration Pain Rated 4-10 Pantoprazole Sodium 40 mg 03/25/24 17:00 03/27/24 12:41 Pantoprazole 40 Mg Tablet PO 40 mg BID JAZMIN Administration Tizanidine HCl 2 mg 03/25/24 13:28 Tizanidine Hcl 2 Mg Tablet PO TID PRN Muscle Spasm Vitamin B Complex/Folic Acid 1 cap 03/26/24 09:00 03/27/24 12:42 Vitamin B Cmplx/Vit C/Folic Ac 1 Capsule PO 1 cap QAM JAZMIN Administration Vitamin D 3,000 units 03/26/24 09:00 03/27/24 12:41 Cholecalciferol 1,000 Units Tablet PO 3,000 units DAILY JAZMIN Administration Radiology Results: ITS Impressions Chest X-Ray 03/25/24 10:24 IMPRESSION: 1. New airspace opacity lateral left lower lung zone which could be due to atelectasis, pneumonia, paracardial fat pad or some combination thereof. 2. Cardiomegaly. Chest CT 03/25/24 10:53 IMPRESSION: 1. Scattered chronic interstitial lung disease in both lungs which include multiple tiny calcified nodules consistent with either sequela of old granulomatous disease or potentially dystrophic calcification related to renal osteodystrophy. 2. Cardiomegaly. 3. Small sliding-type hiatal hernia. 4. Nephrolithiasis versus atherosclerotic calcifications at the visualized portion of the upper pole the right kidney. Thoracic Spine X-Ray 03/25/24 14:10 IMPRESSION: No acute fracture or traumatic malalignment detected in the thoracic spine. Labs Labs: Laboratory Tests 03/27/24 08:17 03/27/24 08:17 Calcium 10.2 Phosphorus 5.8 H Albumin 4.0 Microbiology 03/25/24 10:10 Blood Blood Culture - Preliminary Gram negative bacilli isolated 03/25/24 11:22 Blood Blood Culture - Preliminary
[2024-03-27 12:39] LABS: Glucose Point of Care 109 mg/dl (65-105)
[2024-03-27] MEDS: MIDODRINE HCL 2.5 MG TABLET 15 MG PO ×2 (12:40→18:00)
[2024-03-27] MEDS: cefTRIAXone 2 GM/NS 100 ML 2 GM/100 ML BAG IVPB (12:40)
[2024-03-27] MEDS: HEPARIN SODIUM 5,000 UNITS/ML VIAL 5000 UNITS SUB-Q ×2 (12:40→20:36)
[2024-03-27] MEDS: CALCIUM ACETATE 667 MG TABLET PO ×2 (12:41→18:00)
[2024-03-27] MEDS: PANTOPRAZOLE 40 MG TABLET PO ×2 (12:41→18:00)
[2024-03-27] MEDS: DOXYCYCLINE HYCLATE 100 MG TABLET PO ×2 (12:41→20:11)
[2024-03-27] MEDS: CHOLECALCIFEROL 1,000 UNITS TABLET 3000 UNITS PO (12:41)
[2024-03-27] MEDS: GABAPENTIN 100 MG CAPSULE 200 MG PO ×2 (12:41→18:00)
[2024-03-27] MEDS: ASPIRIN 81 MG ENTERIC TABLET PO (12:41)
[2024-03-27] MEDS: VITAMIN B CMPLX/VIT C/FOLIC AC 1 CAPSULE 1 CAP PO (12:42)
[2024-03-27] MEDS: FLUoxetine HCL 10 MG CAPSULE PO (12:52)
[2024-03-27] MEDS: LIDOCAINE 5% PATCH 1 PATCH TRANSDERM (12:52)
[2024-03-27] MEDS: FLUTICASONE PROPIONATE 0.05% NA SPR 16 GM BTL (*BKC) 2 SPRAY NASAL (12:53)
[2024-03-27] MEDS: CINACALCET 30 MG TABLET 60 MG PO (12:59)
--- NOTE | 2024-03-27 14:36 | ECG_ITS ---
Test Date: 2024-03-27 14:45:49 Measurements Intervals [place] Rate: 94 P: 0 MD: 0 QRS: -51 QRSD: 126 T: 89 QT: 377 QTc: 472 Interpretive Statements SINUS RHYTHM WITH FREQUENT ATRIAL PREMATURE COMPLEXES LEFT AXIS DEVIATION LEFT BUNDLE BRANCH BLOCK BASELINE ARTIFACT- I, III, AVR, AVL, AVF, V4 ABNORMAL ECG Compared to ECG 03/25/2024 13:32:04 NO SIGNIFICANT CHANGE Electronically Signed On 03-27-2024 15:08:08 [employer]IT[employer]PECT[employer] by Heath Grande D.O.
[2024-03-27] MEDS: ACETAMINOPHEN 500 MG TABLET PO ×2 (15:06→20:11)
[2024-03-27 16:15] LABS: Troponin I 0.019 ng/mL (0.000-0.034)
[2024-03-27 16:37] LABS: Glucose Point of Care 180 mg/dl (65-105)
[2024-03-27] MEDS: ATORVASTATIN 40 MG TABLET PO (20:11)
[2024-03-27] MEDS: LATANOPROST 0.005% OP SOLN 2.5 ML BTL 1 DROP EACH EYE (20:11)
[2024-03-27] MEDS: MONTELUKAST SODIUM 10 MG TABLET PO (20:11)
[2024-03-27] MEDS: TIZANIDINE HCL 2 MG TABLET PO (20:11)
[2024-03-27] MEDS: guaiFENesin 12 HR 600 MG TABCR 1200 MG PO (20:35)
[2024-03-27 21:35] LABS: Glucose Point of Care 94 mg/dl (65-105)
[2024-03-28] VITALS (13 sets, daily range): BP systolic 110–132; BP diastolic 65–81; PULSE 65–97; RESP 16–20; TEMP 35.7–36.4; O2SAT 94–100
[2024-03-28] MEDS: IPRATROPIUM 0.5 MG/ALBUTEROL SULFATE 2.5 MG AMPUL.NEB 3 ML INHALATION ×3 (03:00→13:53)
--- NOTE | 2024-03-28 03:32 | PCRCNOTE ---
Pt did not receive her 2000 breathing tx on 03/27/24 due to it being out of the administrated timeframe when RT was able to provide it. See next scheduled tx at 0200 on 03/28/24.
[2024-03-28] MEDS: TIZANIDINE HCL 2 MG TABLET PO ×2 (06:27→13:51)
[2024-03-28] MEDS: ACETAMINOPHEN 500 MG TABLET PO ×2 (06:28→13:51)
[2024-03-28 08:08] LABS: Glucose Point of Care 89 mg/dl (65-105)
[2024-03-28] MEDS: LIDOCAINE 5% PATCH 1 PATCH TRANSDERM (08:23)
[2024-03-28] MEDS: HEPARIN SODIUM 5,000 UNITS/ML VIAL 5000 UNITS SUB-Q ×2 (08:26→20:36)
[2024-03-28] MEDS: CHOLECALCIFEROL 1,000 UNITS TABLET 3000 UNITS PO (08:29)
[2024-03-28] MEDS: CALCIUM ACETATE 667 MG TABLET PO ×2 (08:30→16:58)
[2024-03-28] MEDS: ASPIRIN 81 MG ENTERIC TABLET PO (08:30)
[2024-03-28] MEDS: PANTOPRAZOLE 40 MG TABLET PO ×2 (08:30→16:58)
[2024-03-28] MEDS: guaiFENesin 12 HR 600 MG TABCR 1200 MG PO ×2 (08:30→20:36)
[2024-03-28] MEDS: DOXYCYCLINE HYCLATE 100 MG TABLET PO ×2 (08:30→20:36)
[2024-03-28] MEDS: FLUoxetine HCL 10 MG CAPSULE PO (08:30)
[2024-03-28] MEDS: GABAPENTIN 100 MG CAPSULE 200 MG PO ×2 (08:30→16:58)
[2024-03-28] MEDS: VITAMIN B CMPLX/VIT C/FOLIC AC 1 CAPSULE 1 CAP PO (08:30)
[2024-03-28] MEDS: FLUTICASONE PROPIONATE 0.05% NA SPR 16 GM BTL (*BKC) 2 SPRAY NASAL (08:31)
[2024-03-28] MEDS: cefTRIAXone 2 GM/NS 100 ML 2 GM/100 ML BAG IVPB (08:32)
[2024-03-28] MEDS: DIGOXIN TAB 125 MCG TABLET PO (08:44)
--- NOTE | 2024-03-28 09:04 | PM.IMPN ---
Progress Note: A&P Assessment and Plan (1) Shortness of breath: Code(s): R06.02 - Shortness of breath Status: Acute Assessment and Plan: Patient presents with worsening SOB 1 week after being diagnosed with influenza. CT chest showing what appears to be more chronic findings. WBC normal and no fevers. She is having pleuritic chest pain and scant hemopytsis but sputum o/w clear. Consider PE but no evidence of DVT, tachycardia or hypoxia. And another diagnosis more likely. She denies that she has COPD but does have asthma; suspect she is having more of an asthma exacerbation Doubt fluid overload since just had HD. BNP probably chronically elevated. CXR: 1. New airspace opacity lateral left lower lung zone which could be due to atelectasis, pneumonia, paracardial fat pad or some combination thereof. 2. Cardiomegaly. Chest CT: 1. Scattered chronic interstitial lung disease in both lungs which include multiple tiny calcified nodules consistent with either sequela of old granulomatous disease or potentially dystrophic calcification related to renal osteodystrophy. 2. Cardiomegaly. 3. Small sliding-type hiatal hernia. 4. Nephrolithiasis versus atherosclerotic calcifications at the visualized portion of the upper pole the right kidney. - MRSA nasal swab negative. - BCx returned positive with Enterobacter cloacae (other set NGTD) - Antibiotics: Rocephin transitioned to cefepime base on cultures, continue Doxycycline. No old Cx to compare. - Started bronchodilators and steroids. - Continue Pep therapy and IS - Monitor vital signs, I&Os, neuro status and patient is a fall risk - Follow WBC, serum electrolytes, temperature curves and cultures (2) Asthma: Code(s): J45.909 - Unspecified asthma, uncomplicated Status: Acute Assessment and Plan: As above (3) Influenza: Code(s): J11.1 - Influenza due to unidentified influenza virus with other respiratory manifestations Status: Acute Assessment and Plan: Patient diagnosed with influenza and completed a course of Tamiflu Repeat testing negative. Hold off on repeat treatment since stable and testing negative now Follow (4) End-stage renal disease on hemodialysis: Onset Date: 09/2009 Code(s): N18.6 - End stage renal disease; Z99.2 - Dependence on renal dialysis Status: Acute Assessment and Plan: Patient on dialysis --. Nephrology consult for dialysis treatment plan. (5) Chronic anemia: Code(s): D64.9 - Anemia, unspecified Status: Chronic Assessment and Plan: Patient with chronic anemia. Hgb last year was in the 8-11 range. Hgb 7.9 on admission and 8.9 on repeat. H/H 9.2/31.8 on am labs B12 and folate normal. Iron studies c/w anemia of chronic disease probably from ESRD. Follow (6) Obstructive sleep apnea: Code(s): G47.33 - Obstructive sleep apnea (adult) (pediatric) Status: Acute Assessment and Plan: Patient with LENORA. Continue CPAP at night and with naps as she tolerates (7) Back pain: Code(s): M54.9 - Dorsalgia, unspecified Status: Acute Assessment and Plan: Patient with mid thoracic palpable back pain. No trauma. Xray showing no fractures. Continue Lidocaine patch (8) Type II diabetes mellitus: Code(s): E11.9 - Type 2 diabetes mellitus without complications Status: Acute Assessment and Plan: Patient has DM in the past requiring sliding scale insulin but not requiring treatment now. A1c 4.7%. She has peripheral neuropathy and takes Gabapentin for this. Continue sliding scale with hypoglycemia protocol. Plan DVT prophylaxis - Heparin Code status - full Debility - PT/OT Time Spent With Patient Time with patient: 25 - 35 minutes Subjective Date/time seen: 03/28/24 09:04 Interval history: 68yo female with ESRD on HD M-W-F, CHF, PAFib s/p Watchman, DM and LENORA here for feeling short of breath and cough. Patient is pleasant sitting up in her chair. She states that she feels much worse today than compared to yesterday noting worsening shortness of breath and cough. She states that her cough this morning was more productive and has not become more dry. She states that she has not been using the the CPAP overnight which could be contributing to her shortness of breath. She has no other complaints denying chest pain, palpitations, nausea/ vomiting and abdominal pain. Review of Systems Review of Systems: All systems reviewed & are unremarkable except as noted in HPI and below Exam Narrative: AF HR 97 RR 18 SPO2 98 BP 110/71 General: female in no acute respiratory distress who is nontoxic appearing, sitting up in chair HEENT: Normocephalic. Atraumatic. Extraocular movement intact. Sclera clear and anicteric. No facial asymmetry. Chest: Lungs are coarse to auscultation bilaterally with crackles in the bases. No wheezes. CV: Heart was regular rate and rhythm. S1-S2. No murmurs, gallops, or rubs. Abd: Abdomen was soft. Nontender. Nondistended. Positive bowel sounds. No organomegaly or masses. Ext: No clubbing, cyanosis, or edema. 2+ DP pulses bilaterally. Neuro: Patient is alert. Speech is clear. Objective Data Vital Signs Vital Signs: Vital Signs - 24 hr 03/27/24 09:08 03/27/24 09:15 03/27/24 09:30 Temperature 98.6 F Pulse Rate 94 87 81 Respiratory Rate 18 Blood Pressure 133/71 119/71 124/73 Pulse Oximetry Oxygen Delivery 03/27/24 09:45 03/27/24 10:00 03/27/24 10:15 Temperature Pulse Rate 82 85 81 Respiratory Rate Blood Pressure 123/72 109/65 114/69 Pulse Oximetry Oxygen Delivery 03/27/24 10:30 03/27/24 10:45 03/27/24 11:00 Temperature Pulse Rate 80 75 79 Respiratory Rate Blood Pressure 122/68 119/72 119/67 Pulse Oximetry Oxygen Delivery 03/27/24 11:15 03/27/24 11:30 03/27/24 11:45 Temperature Pulse Rate 79 83 81 Respiratory Rate Blood Pressure 116/69 119/77 116/71 Pulse Oximetry Oxygen Delivery 03/27/24 12:00 03/27/24 12:17 03/27/24 12:50 Temperature 97.8 F Pulse Rate 82 98 87 Respiratory Rate 16 22 H Blood Pressure 122/71 113/70 Pulse Oximetry 98 Oxygen Delivery Room Air 03/27/24 14:00 03/27/24 14:18 03/27/24 14:29 Temperature 97.4 F L Pulse Rate 90 89 87 Respiratory Rate 18 20 22 H Blood Pressure 102/89 Pulse Oximetry 98 Oxygen Delivery 03/27/24 20:00 03/27/24 21:16 03/28/24 03:01 Temperature 97.0 F L Pulse Rate 78 75 Respiratory Rate 16 20 Blood Pressure 120/64 Pulse Oximetry 90 Oxygen Delivery Room Air 03/28/24 03:13 03/28/24 06:00 03/28/24 07:43 Temperature 96.3 F L Pulse Rate 76 71 Respiratory Rate 20 16 Blood Pressure 124/70 Pulse Oximetry 94 95 Oxygen Delivery Room Air 03/28/24 07:43 03/28/24 07:55 03/28/24 08:18 Temperature Pulse Rate 80 80 78 Respiratory Rate 20 20 Blood Pressure 129/65 Pulse Oximetry Oxygen Delivery 03/28/24 08:44 Temperature Pulse Rate 65 Respiratory Rate Blood Pressure Pulse Oximetry Oxygen Delivery Intake/Output Intake/Output: Intake & Output 03/25/24 03/26/24 03/27/24 03/28/24 23:59 23:59 23:59 23:59 Intake Total 800 1230 560 200 Output Total 1534 Balance 800 1230 -974 200 Meds/Results Medications: Active Medications Generic Name Dose Route Start Last Admin Trade Name Freq PRN Reason Stop Dose Admin Acetaminophen 500 mg 03/25/24 13:28 03/28/24 06:28 Acetaminophen 500 Mg Tablet PO 500 mg QID PRN Administration Fever Or Pain 1-3 Albuterol 2 puff 03/25/24 22:34 Albuterol Sulfate (*Sp) Aerosol 1 Puff INHALATION QIDRT PRN Shortness Of Breath Albuterol/Ipratropium 3 ml 03/25/24 14:00 03/28/24 07:42 Ipratropium 0.5 Mg/Albuterol Sulfate 2.5 Mg Ampul.Neb 3 Ml INHALATION 3 ml Q6HRT JAZMIN Administration Artificial Tears 1 drop 03/25/24 13:28 Artificial Tears Ophth Soln 15 Ml Bottle EACH EYE TID PRN Dry Eyes Aspirin 81 mg 03/26/24 09:00 03/28/24 08:30 Aspirin 81 Mg Enteric Tablet PO 81 mg DAILY JAZMIN Administration Atorvastatin Calcium 40 mg 03/25/24 21:00 03/27/24 20:11 Atorvastatin 40 Mg Tablet PO 40 mg HS JAZMIN Administration Calcium Acetate 667 mg 03/25/24 17:00 03/28/24 08:30 Calcium Acetate 667 Mg Tablet PO 667 mg BIDWM JAZMIN Administration Cinacalcet 60 mg 03/27/24 09:00 03/27/24 12:59 Cinacalcet 30 Mg Tablet PO 60 mg MoWeFr@0900 JAZMIN Administration Dextrose 12.5 gm 03/25/24 13:22 Dextrose 50% 25 Gm/50 Ml Syringe IV PUSH PRN PRN Hypoglycemia Protocol Digoxin 125 mcg 03/28/24 09:00 03/28/24 08:44 Digoxin Tab 125 Mcg Tablet PO 125 mcg SuTh@0900 JAZMIN Administration Doxycycline Hyclate 100 mg 03/26/24 13:55 03/28/24 08:30 Doxycycline Hyclate 100 Mg Tablet PO 03/30/24 21:01 100 mg Q12HR JAZMIN Administration Fluoxetine HCl 10 mg 03/26/24 09:00 03/28/24 08:30 Fluoxetine Hcl 10 Mg Capsule PO 10 mg DAILY JAZMIN Administration Fluticasone Propionate 2 spray 03/26/24 09:00 03/28/24 08:31 Fluticasone Propionate 0.05% Na Spr 16 Gm Btl (*Bkc) NASAL 2 spray DAILY JAZMIN Administration Gabapentin 200 mg 03/25/24 17:00 03/28/24 08:30 Gabapentin 100 Mg Capsule PO 200 mg BID JAZMIN Administration Glucagon 1 mg 03/25/24 13:22 Glucagon For Inj 1 Mg Vial IM PRN PRN Hypoglycemia Protocol Glucose 15 gm 03/25/24 13:22 Glucose Oral Gel 15 Gm Of Glucse In 37.5 Gm Tube PO PRN PRN Hypoglycemia Protocol Guaifenesin 1,200 mg 03/27/24 21:00 03/28/24 08:30 Guaifenesin 12 Hr 600 Mg Tabcr PO 1,200 mg Q12HR JAZMIN Administration Heparin Sodium (Porcine) 5,000 units 03/26/24 09:00 03/28/24 08:26 Heparin Sodium 5,000 Units/Ml Vial SUB-Q 5,000 units Q12HR JAZMIN Administration Dextrose 1,000 mls @ 100 mls/hr 03/25/24 13:22 Dextrose 5% 1,000 Ml IVPB PRN PRN Hypoglycemia Protocol Ceftriaxone Sodium 2 gm in 100 mls @ 200 mls/hr 03/27/24 09:00 03/28/24 08:32 Rocephin 2 Gm/Ns 100 Ml IVPB 200 mls/hr Q24H JAZMIN Administration Albumin Human 50 mls @ 999 mls/hr 03/27/24 06:00 Albutein IVPB 04/26/24 05:59 Q10M PRN HYPOTENSION Insulin Aspart 3 - 6 units 03/25/24 17:00 03/28/24 08:16 Insulin Aspart (*Bkc) 100 Units/Ml SUB-Q Not Given TIDWM [facility] Protocol Latanoprost 1 drop 03/25/24 21:00 03/27/24 20:11 Latanoprost 0.005% Op Soln 2.5 Ml Btl EACH EYE 1 drop HS JAZMIN Administration Lidocaine 1 patch 03/26/24 09:00 03/28/24 08:23 Lidocaine 5% Patch TRANSDERM 1 patch DAILY JAZMIN Administration Midodrine 15 mg 03/25/24 17:00 03/28/24 08:21 Midodrine Hcl 2.5 Mg Tablet PO Not Given TIDWM [facility] Montelukast Sodium 10 mg 03/25/24 21:00 03/27/24 20:11 Montelukast Sodium 10 Mg Tablet PO 10 mg HS [facility] Administration Oxycodone HCl 5 mg 03/25/24 13:28 03/25/24 16:32 Oxycodone Hcl (*Crx) 5 Mg Tab Ir PO 5 mg Q6H PRN Administration Pain Rated 4-10 Pantoprazole Sodium 40 mg 03/25/24 17:00 03/28/24 08:30 Pantoprazole 40 Mg Tablet PO 40 mg BID JAZMIN Administration Tizanidine HCl 2 mg 03/25/24 13:28 03/28/24 06:27 Tizanidine Hcl 2 Mg Tablet PO 2 mg TID PRN Administration Muscle Spasm Vitamin B Complex/Folic Acid 1 cap 03/26/24 09:00 03/28/24 08:30 Vitamin B Cmplx/Vit C/Folic Ac 1 Capsule PO 1 cap QAM [facility] Administration Vitamin D 3,000 units 03/26/24 09:00 03/28/24 08:29 Cholecalciferol 1,000 Units Tablet PO 3,000 units DAILY JAZMIN Administration Radiology Results: ITS Impressions Chest X-Ray 03/25/24 10:24 IMPRESSION: 1. New airspace opacity lateral left lower lung zone which could be due to atelectasis, pneumonia, paracardial fat pad or some combination thereof. 2. Cardiomegaly. Chest CT 03/25/24 10:53 IMPRESSION: 1. Scattered chronic interstitial lung disease in both lungs which include multiple tiny calcified nodules consistent with either sequela of old granulomatous disease or potentially dystrophic calcification related to renal osteodystrophy. 2. Cardiomegaly. 3. Small sliding-type hiatal hernia. 4. Nephrolithiasis versus atherosclerotic calcifications at the visualized portion of the upper pole the right kidney. Thoracic Spine X-Ray 03/25/24 14:10 IMPRESSION: No acute fracture or traumatic malalignment detected in the thoracic spine. Labs Labs: Laboratory Results - last 24 hr 03/27/24 03/27/24 03/27/24 08:17 12:36 15:46 WBC 11.8 H RBC 3.09 L Hgb 8.5 L Hct 28.1 L MCV 90.9 MCH 27.5 MCHC 30.2 L RDW 15.9 H Plt Count 334 MPV 10.4 Sodium 140 Potassium 4.9 Chloride 99 Carbon Dioxide 24 Anion Gap 17 H BUN 54 H D Creatinine 10.42 H Estim Creat Clear Calc 5 Estimated GFR 4 L Glucose 140 H POC Capillary Glucose 109 H Calcium 10.2 Phosphorus 5.8 H Troponin I 0.019 Albumin 4.0 03/27/24 03/27/24 03/28/24 16:31 21:10 07:58 WBC RBC Hgb Hct MCV MCH MCHC RDW Plt Count MPV Sodium Potassium Chloride Carbon Dioxide Anion Gap BUN Creatinine Estim Creat Clear Calc Estimated GFR Glucose POC Capillary Glucose 180 H 94 89 Calcium Phosphorus Troponin I Albumin Quality VTE Prophylaxis VTE prophylaxis: pharmacologic ordered
[2024-03-28 10:07] LABS: Basophils Percent Auto 0.2 % (0.2-1.2); Eosinophils Percent Auto 0.2 % (0-4.4); Hematocrit 31.8 % (37.0-47.0); Hemoglobin 9.2 g/dL (12.0-15.0); Immature Granulocyte Absolute 0.18 K/mm3 (0.00-0.031); Immature Granulocyte Percent A 1.7 % (0-0.5); Lymphocytes Absolute Auto 1.97 K/mm3 (0.9-3.2); Mean Corpuscular HGB Conc 28.9 g/dl (32-36); Mean Corpuscular Volume 93.3 fl (80-100); Monocytes Absolute Auto 0.9 K/mm3 (0.1-0.6); Monocytes Percent Auto 8.3 % (2.6-8.5); Neutrophils Absolute Auto 7.3 K/mm3 (1.3-6.7); Neutrophils Percent Auto 70.6 % (45.5-73.1); Nucleated Red Blood Cells Perc 0.8 % (0.0-0.2); Platelet Count Result 326 k/mm3 (150-375); Red Blood Count 3.41 M/mm3 (4.2-5.4); Red Cell Distribution Width 16.4 % (11.5-14.5); White Blood Count 10.4 K/mm3 (4.5-10.0)
[2024-03-28 10:20] LABS: Alanine Aminotransferase 14 U/L (6-35); Albumin Level 4.2 g/dL (3.5-5.1); Alkaline Phosphatase 86 U/L (38-126); Anion Gap 14 mmol/L (4-12); Aspartate Amino Transferase 26 U/L (14-36); Bilirubin,Total 0.7 mg/dL (0.2-1.3); Blood Urea Nitrogen 36 mg/dL (7-17); Calcium 9.7 mg/dL (8.4-10.2); Carbon Dioxide 32 mmol/L (22-30); Chloride 96 mmol/L (98-107); Estimated CRCL calculation 6 ml/min; Estimated Glomerular Filt Rate 6; Glucose 97 mg/dL (65-110); Potassium 4.3 mmol/L (3.4-5.0); Sodium 142 mmol/L (137-145)
[2024-03-28 10:50] LABS: Anisocytosis 1+; Hypochromasia 1+; Platelet Estimate Adequate (Adequate); Schistocytes None Seen
[2024-03-28 11:36] LABS: Glucose Point of Care 95 mg/dl (65-105)
--- NOTE | 2024-03-28 12:20 | P.PNNP_ITS ---
Progress Note: A&P Assessment and Plan (1) End stage renal disease: Code(s): N18.6 - End stage renal disease Status: Chronic Assessment and Plan: * HD tomorrow * continue Monday/Monday/Monday dialysis schedule while in [place] * follow electrolytes, volume status, and clearance (2) Shortness of breath: Code(s): R06.02 - Shortness of breath Status: Acute Assessment and Plan: * as noted on presentation * acute worsening noted 1 week after influenza diagnosis * known history of asthma and reactive airway disease * imaging noted: * CXR: new airspace opacity lateral left lower lung zone which could be due to atelectasis, pneumonia, paracardial fat pad or some combination thereof and cardiomegaly * CT of chest: scattered chronic interstitial lung disease in both lungs which include multiple tiny calcified nodules consistent with either sequela of old granulomatous disease or potentially dystrophic calcification related to renal osteodystrophy * no fevers or leukocytosis * initial clinical improvement with bronchodilators and steroids * restart steroids?? * blood culture with Enterobacter (1 out of 2) * on antibiotics * continue supportive therapy (3) Anemia: Code(s): D64.9 - Anemia, unspecified Status: Chronic Assessment and Plan: * due to ESRD along with acute illness * B12 and folate normal; iron studies c/w anemia of chronic disease * SHERRI with HD * follow trend of H/H (4) Influenza: Code(s): J11.1 - Influenza due to unidentified influenza virus with other respiratory manifestations Status: Acute Assessment and Plan: * diagnosed with influenza 1 week prior to admission and completed a course of Tamiflu * repeat testing negative * continue supportive therapy (5) Obstructive sleep apnea: Code(s): G47.33 - Obstructive sleep apnea (adult) (pediatric) Status: Acute Assessment and Plan: * continue CPAP at night and with naps (6) Type II diabetes mellitus: Code(s): E11.9 - Type 2 diabetes mellitus without complications Status: Acute Assessment and Plan: * noted in the past but now diet controlled * hyperglycemia noted with previous steroid use * glycemic control per hospitalists Will continue to follow. L Subjective Date/time seen: 03/28/24 12:20 Interval history: Follow-up for end stage renal disease on hemodialysis. Tolerated dialysis treatment yesterday although treatment ended 30 minutes early due to clotting; states breathing appears worse today with increased shortness of breath coupled with a productive cough but not clear why but does admit she has not been using her CPAP at night while hospitalized; no other acute complaints voiced at the time of my visit. Exam 2 Narrative: General: WD/WN female in NAD Heart: normal S1 and S2; no rub Lungs: clear anteriorly; decreased at the bases Abdomen: soft, nontender, nondistended, positive bowel sounds Extremities: no cyanosis or clubbing; no edema Skin: warm and intact Objective Data Vital Signs Vital Signs: Vital Signs Temp Pulse Resp BP Pulse Ox O2 Del Method 03/28/24 12:13 113/68 03/28/24 09:12 Room Air 03/28/24 08:44 65 03/28/24 08:18 78 129/65 03/28/24 08:00 97 Room Air 03/28/24 07:55 80 20 03/28/24 07:43 80 20 03/28/24 07:43 95 Room Air 03/28/24 06:00 96.3 F L 71 16 124/70 94 03/28/24 03:13 76 20 03/28/24 03:01 75 20 03/27/24 21:16 97.0 F L 78 16 120/64 90 03/27/24 20:00 Room Air Intake/Output Intake/Output: Intake & Output 03/25/24 03/26/24 03/27/24 03/28/24 23:59 23:59 23:59 23:59 Intake Total 800 1230 560 845 Output Total 1534 Balance 800 1230 -974 845 Meds/Results Medications: Active Medications Generic Name Dose Route Start Last Admin Trade Name Freq PRN Reason Stop Dose Admin Acetaminophen 500 mg 03/25/24 13:28 03/28/24 13:51 Acetaminophen 500 Mg Tablet PO 500 mg QID PRN Administration Fever Or Pain 1-3 Albuterol 2 puff 03/25/24 22:34 Albuterol Sulfate (*Sp) Aerosol 1 Puff INHALATION QIDRT PRN Shortness Of Breath Albuterol/Ipratropium 3 ml 03/25/24 14:00 03/28/24 13:53 Ipratropium 0.5 Mg/Albuterol Sulfate 2.5 Mg Ampul.Neb 3 Ml INHALATION 3 ml Q6HRT JAZMIN Administration Artificial Tears 1 drop 03/25/24 13:28 Artificial Tears Ophth Soln 15 Ml Bottle EACH EYE TID PRN Dry Eyes Aspirin 81 mg 03/26/24 09:00 03/28/24 08:30 Aspirin 81 Mg Enteric Tablet PO 81 mg DAILY JAZMIN Administration Atorvastatin Calcium 40 mg 03/25/24 21:00 03/27/24 20:11 Atorvastatin 40 Mg Tablet PO 40 mg HS JAZMIN Administration Calcium Acetate 667 mg 03/25/24 17:00 03/28/24 16:58 Calcium Acetate 667 Mg Tablet PO 667 mg BIDWM JAZMIN Administration Cinacalcet 60 mg 03/27/24 09:00 03/27/24 12:59 Cinacalcet 30 Mg Tablet PO 60 mg [id number]@[id number] JAZMIN Administration Dextrose 12.5 gm 03/25/24 13:22 Dextrose 50% 25 Gm/50 Ml Syringe IV PUSH PRN PRN Hypoglycemia Protocol Digoxin 125 mcg 03/28/24 09:00 03/28/24 08:44 Digoxin Tab 125 Mcg Tablet PO 125 mcg SuTh@0900 JAZMIN Administration Doxycycline Hyclate 100 mg 03/26/24 13:55 03/28/24 08:30 Doxycycline Hyclate 100 Mg Tablet PO 03/30/24 21:01 100 mg Q12HR JAZMIN Administration Fluoxetine HCl 10 mg 03/26/24 09:00 03/28/24 08:30 Fluoxetine Hcl 10 Mg Capsule PO 10 mg DAILY JAZMIN Administration Fluticasone Propionate 2 spray 03/26/24 09:00 03/28/24 08:31 Fluticasone Propionate 0.05% Na Spr 16 Gm Btl (*Bkc) NASAL 2 spray DAILY JAZMIN Administration Gabapentin 200 mg 03/25/24 17:00 03/28/24 16:58 Gabapentin 100 Mg Capsule PO 200 mg BID JAZMIN Administration Glucagon 1 mg 03/25/24 13:22 Glucagon For Inj 1 Mg Vial IM PRN PRN Hypoglycemia Protocol Glucose 15 gm 03/25/24 13:22 Glucose Oral Gel 15 Gm Of Glucse In 37.5 Gm Tube PO PRN PRN Hypoglycemia Protocol Guaifenesin 1,200 mg 03/27/24 21:00 03/28/24 08:30 Guaifenesin 12 Hr 600 Mg Tabcr PO 1,200 mg Q12HR JAZMIN Administration Heparin Sodium (Porcine) 5,000 units 03/26/24 09:00 03/28/24 08:26 Heparin Sodium 5,000 Units/Ml Vial SUB-Q 5,000 units Q12HR JAZMIN Administration Dextrose 1,000 mls @ 100 mls/hr 03/25/24 13:22 Dextrose 5% 1,000 Ml IVPB PRN PRN Hypoglycemia Protocol Albumin Human 50 mls @ 999 mls/hr 03/27/24 06:00 Albutein IVPB 04/26/24 05:59 Q10M PRN HYPOTENSION Cefepime HCl 1 gm in 50 mls @ 100 mls/hr 03/28/24 18:00 03/28/24 16:57 Maxipime 1 Gm/Ns 50 Ml IVPB 100 mls/hr DAILY@1800 JAZMIN Administration Insulin Aspart 3 - 6 units 03/25/24 17:00 03/28/24 16:56 Insulin Aspart (*Bkc) 100 Units/Ml SUB-Q Not Given TIDWM JAZMIN Protocol Latanoprost 1 drop 03/25/24 21:00 03/27/24 20:11 Latanoprost 0.005% Op Soln 2.5 Ml Btl EACH EYE 1 drop HS JAZMIN Administration Lidocaine 1 patch 03/26/24 09:00 03/28/24 08:23 Lidocaine 5% Patch TRANSDERM 1 patch DAILY JAZMIN Administration Midodrine 15 mg 03/25/24 17:00 03/28/24 16:58 Midodrine Hcl 2.5 Mg Tablet PO 15 mg TIDWM JAZMIN Administration Montelukast Sodium 10 mg 03/25/24 21:00 03/27/24 20:11 Montelukast Sodium 10 Mg Tablet PO 10 mg HS JAZMIN Administration Oxycodone HCl 5 mg 03/25/24 13:28 03/25/24 16:32 Oxycodone Hcl (*Crx) 5 Mg Tab Ir PO 5 mg Q6H PRN Administration Pain Rated 4-10 Pantoprazole Sodium 40 mg 03/25/24 17:00 03/28/24 16:58 Pantoprazole 40 Mg Tablet PO 40 mg BID JAZMIN Administration Tizanidine HCl 2 mg 03/25/24 13:28 03/28/24 13:51 Tizanidine Hcl 2 Mg Tablet PO 2 mg TID PRN Administration Muscle Spasm Vitamin B Complex/Folic Acid 1 cap 03/26/24 09:00 03/28/24 08:30 Vitamin B Cmplx/Vit C/Folic Ac 1 Capsule PO 1 cap QAM JAZMIN Administration Vitamin D 3,000 units 03/26/24 09:00 03/28/24 08:29 Cholecalciferol 1,000 Units Tablet PO 3,000 units DAILY JAZMIN Administration Radiology Results: ITS Impressions Chest X-Ray 03/25/24 10:24 IMPRESSION: 1. New airspace opacity lateral left lower lung zone which could be due to atelectasis, pneumonia, paracardial fat pad or some combination thereof. 2. Cardiomegaly. Chest CT 03/25/24 10:53 IMPRESSION: 1. Scattered chronic interstitial lung disease in both lungs which include multiple tiny calcified nodules consistent with either sequela of old granulomatous disease or potentially dystrophic calcification related to renal osteodystrophy. 2. Cardiomegaly. 3. Small sliding-type hiatal hernia. 4. Nephrolithiasis versus atherosclerotic calcifications at the visualized portion of the upper pole the right kidney. Thoracic Spine X-Ray 03/25/24 14:10 IMPRESSION: No acute fracture or traumatic malalignment detected in the thoracic spine. Labs Labs: Laboratory Tests 03/28/24 09:25 03/28/24 09:25 Calcium 9.7 Total Bilirubin 0.7 AST 26 ALT 14 Alkaline Phosphatase 86 Total Protein 8.0 Albumin 4.2 Microbiology 03/25/24 10:10 Blood Blood Culture - Preliminary Enterobacter cloacae complex
[2024-03-28] MEDS: CEFEPIME 1 GM/NS 50 ML 1 GM/50 ML BAG IVPB (16:57)
[2024-03-28] MEDS: MIDODRINE HCL 2.5 MG TABLET 15 MG PO (16:58)
[2024-03-28 17:00] LABS: Glucose Point of Care 120 mg/dl (65-105)
[2024-03-28] MEDS: ATORVASTATIN 40 MG TABLET PO (20:36)
[2024-03-28] MEDS: MONTELUKAST SODIUM 10 MG TABLET PO (20:36)
[2024-03-28 21:03] LABS: Glucose Point of Care 90 mg/dl (65-105)
[2024-03-28] MEDS: BISACODYL 5 MG TABLET EC PO (22:28)
[2024-03-28] MEDS: LATANOPROST 0.005% OP SOLN 2.5 ML BTL 1 DROP EACH EYE (23:49)
[2024-03-29] VITALS (33 sets, daily range): BP systolic 92–126; BP diastolic 57–85; PULSE 8–98; RESP 2–26; TEMP 36.2–37; O2SAT 93–99
--- NOTE | 2024-03-29 01:36 | PCRCNOTE ---
Window of time for administration has passed. See next scheduled administration.
[2024-03-29] MEDS: IPRATROPIUM 0.5 MG/ALBUTEROL SULFATE 2.5 MG AMPUL.NEB 3 ML INHALATION ×4 (02:30→20:38)
[2024-03-29] MEDS: oxyCODONE HCL (*CRX) 5 MG TAB IR PO (04:43)
[2024-03-29] MEDS: TIZANIDINE HCL 2 MG TABLET PO (04:44)
[2024-03-29 08:14] LABS: Basophils Percent Auto 0.2 % (0.2-1.2); Eosinophils Absolute Auto 0.2 K/mm3 (0-0.3); Eosinophils Percent Auto 1.6 % (0-4.4); Hematocrit 28.4 % (37.0-47.0); Hemoglobin 8.5 g/dL (12.0-15.0); Immature Granulocyte Absolute 0.16 K/mm3 (0.00-0.031); Immature Granulocyte Percent A 1.6 % (0-0.5); Lymphocytes Percent Auto 28.1 % (18.3-44.2); Mean Corpuscular HGB Conc 29.9 g/dl (32-36); Mean Corpuscular Hemoglobin 27.6 pg (26-34); Mean Corpuscular Volume 92.2 fl (80-100); Mean Platelet Volume 10.2 fl (7.4-10.4); Monocytes Percent Auto 9.7 % (2.6-8.5); Neutrophils Absolute Auto 5.9 K/mm3 (1.3-6.7); Neutrophils Percent Auto 58.8 % (45.5-73.1); Nucleated Red Blood Cells Perc 0.5 % (0.0-0.2); Platelet Count Result 286 k/mm3 (150-375); Red Blood Count 3.08 M/mm3 (4.2-5.4); Red Cell Distribution Width 16.1 % (11.5-14.5)
[2024-03-29 08:23] LABS: Glucose Point of Care 90 mg/dl (65-105)
--- NOTE | 2024-03-29 08:37 | P.PNIM_ITS ---
Progress Note: A&P Assessment and Plan (1) Shortness of breath: Code(s): R06.02 - Shortness of breath Status: Acute Assessment and Plan: Patient presents with worsening SOB 1 week after being diagnosed with influenza. CT chest showing what appears to be more chronic findings. WBC normal and no fevers. She is having pleuritic chest pain and scant hemopytsis but sputum o/w clear. Consider PE but no evidence of DVT, tachycardia or hypoxia. And another diagnosis more likely. She denies that she has COPD but does have asthma; suspect she is having more of an asthma exacerbation Doubt fluid overload since just had HD. BNP probably chronically elevated. CXR: 1. New airspace opacity lateral left lower lung zone which could be due to atelectasis, pneumonia, paracardial fat pad or some combination thereof. 2. Cardiomegaly. Chest CT: 1. Scattered chronic interstitial lung disease in both lungs which include multiple tiny calcified nodules consistent with either sequela of old granulomatous disease or potentially dystrophic calcification related to renal osteodystrophy. 2. Cardiomegaly. 3. Small sliding-type hiatal hernia. 4. Nephrolithiasis versus atherosclerotic calcifications at the visualized portion of the upper pole the right kidney. Repeat CXR: 1. Stable diffuse lung disease, consistent with chronic interstitial lung disease and mild atelectasis. 2. Cardiomegaly. - Echo ordered - MRSA nasal swab negative. - BCx returned positive with Enterobacter cloacae (other set NGTD) - Repeat BCx ordered - Antibiotics: Rocephin transitioned to cefepime base on cultures, continue Doxycycline. No old Cx to compare. - Started bronchodilators and steroids. - Continue Pep therapy and IS - Monitor vital signs, I&Os, neuro status and patient is a fall risk - Follow WBC, serum electrolytes, temperature curves and cultures - Pulmonology consulted, appreciate recommendations (2) Asthma: Code(s): J45.909 - Unspecified asthma, uncomplicated Status: Acute Assessment and Plan: As above (3) Influenza: Code(s): J11.1 - Influenza due to unidentified influenza virus with other respiratory manifestations Status: Acute Assessment and Plan: Patient diagnosed with influenza and completed a course of Tamiflu Repeat testing negative. Hold off on repeat treatment since stable and testing negative now Follow (4) End-stage renal disease on hemodialysis: Onset Date: 09/2009 Code(s): N18.6 - End stage renal disease; Z99.2 - Dependence on renal dialysis Status: Acute Assessment and Plan: Patient on dialysis --. Nephrology consult for dialysis treatment plan. (5) Chronic anemia: Code(s): D64.9 - Anemia, unspecified Status: Chronic Assessment and Plan: Patient with chronic anemia. Hgb last year was in the 8-11 range. Hgb 7.9 on admission and 8.9 on repeat. H/H 9.2/31.8 on am labs B12 and folate normal. Iron studies c/w anemia of chronic disease probably from ESRD. Follow (6) Obstructive sleep apnea: Code(s): G47.33 - Obstructive sleep apnea (adult) (pediatric) Status: Acute Assessment and Plan: Patient with LENORA. She did not receive her CPAP overnight. Call made to Respiratory therapy for CPAP at night and with naps as she tolerates (7) Back pain: Code(s): M54.9 - Dorsalgia, unspecified Status: Acute Assessment and Plan: Patient with mid thoracic palpable back pain. No trauma. Xray showing no fractures. Continue Lidocaine patch (8) Type II diabetes mellitus: Code(s): E11.9 - Type 2 diabetes mellitus without complications Status: Acute Assessment and Plan: Patient has DM in the past requiring sliding scale insulin but not requiring treatment now. A1c 4.7%. She has peripheral neuropathy and takes Gabapentin for this. Continue sliding scale with hypoglycemia protocol. Plan DVT prophylaxis - Heparin Code status - full Debility - PT/OT Time Spent With Patient Time with patient: Greater than 35 minutes Subjective Date/time seen: 03/29/24 08:37 Interval history: 68yo female with ESRD on HD --, CHF, PAFib s/p Watchman, DM and LENORA here for feeling short of breath and cough. Patient is pleasant lying in bed. She is endorsing worsening shortness of breath with a weak cough and increased mucous production. She was slightly more lethargic today. She was suppose to start a CPAP last night but did not receive one. ABG unremarkable. Call made and she will receive a CPAP tonight. She has no other complaints denying chest pain, palpitations, nausea/vomiting, and abdominal pain. Returned to patients room and she was doing slightly better stating that her shortness of breath improved some. Review of Systems Review of Systems: All systems reviewed & are unremarkable except as noted in HPI and below Exam Narrative: AF HR 83 RR 18 Spo2 99 BP 121/75 General: female who is nontoxic appearing, sitting up in chair HEENT: Normocephalic. Atraumatic. Extraocular movement intact. Sclera clear and anicteric. No facial asymmetry. Chest: Lungs are coarse to auscultation bilaterally with crackles in the bases. Unable to speak full sentences. No wheezes. CV: Heart was regular rate and rhythm. S1-S2. No murmurs, gallops, or rubs. Abd: Abdomen was soft. Nontender. Nondistended. Positive bowel sounds. No organomegaly or masses. Ext: No clubbing, cyanosis, or edema. 2+ DP pulses bilaterally. Neuro: Patient is alert. Speech is clear. Objective Data Vital Signs Vital Signs: Vital Signs - 24 hr 03/28/24 08:44 03/28/24 09:12 03/28/24 12:23 Temperature Pulse Rate 65 Respiratory Rate Blood Pressure 113/68 Pulse Oximetry Oxygen Delivery Room Air 03/28/24 13:46 03/28/24 13:55 03/28/24 14:05 Temperature 97.6 F Pulse Rate 97 88 90 Respiratory Rate 18 20 20 Blood Pressure 110/71 Pulse Oximetry 98 Oxygen Delivery 03/28/24 21:28 03/29/24 02:30 03/29/24 02:30 Temperature 96.8 F L Pulse Rate 79 90 Respiratory Rate 16 20 Blood Pressure 132/81 Pulse Oximetry 100 94 Oxygen Delivery Room Air 03/29/24 02:40 03/29/24 06:00 03/29/24 07:05 Temperature 97.5 F L Pulse Rate 87 88 80 Respiratory Rate 20 22 H 18 Blood Pressure 124/74 Pulse Oximetry 98 93 Oxygen Delivery Room Air 03/29/24 07:05 03/29/24 07:15 Temperature Pulse Rate 80 84 Respiratory Rate 18 18 Blood Pressure Pulse Oximetry Oxygen Delivery Intake/Output Intake/Output: Intake & Output 03/26/24 03/27/24 03/28/24 03/29/24 23:59 23:59 23:59 23:59 Intake Total 1416 866 9113 1100 Output Total 1534 Balance 1230 -974 1135 1100 Meds/Results Medications: Active Medications Generic Name Dose Route Start Last Admin Trade Name Freq PRN Reason Stop Dose Admin Acetaminophen 500 mg 03/25/24 13:28 03/28/24 13:51 Acetaminophen 500 Mg Tablet PO 500 mg QID PRN Administration Fever Or Pain 1-3 Albuterol 2 puff 03/25/24 22:34 Albuterol Sulfate (*Sp) Aerosol 1 Puff INHALATION QIDRT PRN Shortness Of Breath Albuterol/Ipratropium 3 ml 03/25/24 14:00 03/29/24 07:05 Ipratropium 0.5 Mg/Albuterol Sulfate 2.5 Mg Ampul.Neb 3 Ml INHALATION 3 ml Q6HRT JAZMIN Administration Artificial Tears 1 drop 03/25/24 13:28 Artificial Tears Ophth Soln 15 Ml Bottle EACH EYE TID PRN Dry Eyes Aspirin 81 mg 03/26/24 09:00 03/28/24 08:30 Aspirin 81 Mg Enteric Tablet PO 81 mg DAILY JAZMIN Administration Atorvastatin Calcium 40 mg 03/25/24 21:00 03/28/24 20:36 Atorvastatin 40 Mg Tablet PO 40 mg HS JAZMIN Administration Bisacodyl 5 mg 03/28/24 22:02 03/28/24 22:28 Bisacodyl 5 Mg Tablet Ec PO 5 mg QAM PRN Administration Constipation Calcium Acetate 667 mg 03/25/24 17:00 03/28/24 16:58 Calcium Acetate 667 Mg Tablet PO 667 mg BIDWM JAZMIN Administration Cinacalcet 60 mg 03/27/24 09:00 03/27/24 12:59 Cinacalcet 30 Mg Tablet PO 60 mg MoWeFr@0900 JAZMIN Administration Dextrose 12.5 gm 03/25/24 13:22 Dextrose 50% 25 Gm/50 Ml Syringe IV PUSH PRN PRN Hypoglycemia Protocol Digoxin 125 mcg 03/28/24 09:00 03/28/24 08:44 Digoxin Tab 125 Mcg Tablet PO 125 mcg SuTh@0900 JAZMIN Administration Doxycycline Hyclate 100 mg 03/26/24 13:55 03/28/24 20:36 Doxycycline Hyclate 100 Mg Tablet PO 03/30/24 21:01 100 mg Q12HR JAZMIN Administration Epoetin Danilee-epbx 10,000 units 03/29/24 19:41 Epoetin Daniele-Epbx 10,000 Units/Ml Vial IV PUSH 03/29/24 19:42 ONCE ONE Fluoxetine HCl 10 mg 03/26/24 09:00 03/28/24 08:30 Fluoxetine Hcl 10 Mg Capsule PO 10 mg DAILY JAZMIN Administration Fluticasone Propionate 2 spray 03/26/24 09:00 03/28/24 08:31 Fluticasone Propionate 0.05% Na Spr 16 Gm Btl (*Bkc) NASAL 2 spray DAILY JAZMIN Administration Gabapentin 200 mg 03/25/24 17:00 03/28/24 16:58 Gabapentin 100 Mg Capsule PO 200 mg BID JAZMIN Administration Glucagon 1 mg 03/25/24 13:22 Glucagon For Inj 1 Mg Vial IM PRN PRN Hypoglycemia Protocol Glucose 15 gm 03/25/24 13:22 Glucose Oral Gel 15 Gm Of Glucse In 37.5 Gm Tube PO PRN PRN Hypoglycemia Protocol Guaifenesin 1,200 mg 03/27/24 21:00 03/28/24 20:36 Guaifenesin 12 Hr 600 Mg Tabcr PO 1,200 mg Q12HR JAZMIN Administration Heparin Sodium (Porcine) 5,000 units 03/26/24 09:00 03/28/24 20:36 Heparin Sodium 5,000 Units/Ml Vial SUB-Q 5,000 units Q12HR JAZMIN Administration Dextrose 1,000 mls @ 100 mls/hr 03/25/24 13:22 Dextrose 5% 1,000 Ml IVPB PRN PRN Hypoglycemia Protocol Albumin Human 50 mls @ 999 mls/hr 03/27/24 06:00 Albutein IVPB 04/26/24 05:59 Q10M PRN HYPOTENSION Cefepime HCl 1 gm in 50 mls @ 100 mls/hr 03/28/24 18:00 03/28/24 17:27 Maxipime 1 Gm/Ns 50 Ml IVPB Infused DAILY@1800 JAZMIN Infusion Sodium Chloride 1,000 mls @ 999 mls/hr 03/29/24 07:40 Normal Saline Iv IV CONT 03/29/24 08:40 .Q1H1M ONE Insulin Aspart 3 - 6 units 03/25/24 17:00 03/29/24 08:26 Insulin Aspart (*Bkc) 100 Units/Ml SUB-Q Not Given TIDWM JAZMNI Protocol Latanoprost 1 drop 03/25/24 21:00 03/28/24 23:49 Latanoprost 0.005% Op Soln 2.5 Ml Btl EACH EYE 1 drop HS JAZMIN Administration Lidocaine 1 patch 03/26/24 09:00 03/28/24 08:23 Lidocaine 5% Patch TRANSDERM 1 patch DAILY JAZMIN Administration Midodrine 15 mg 03/25/24 17:00 03/28/24 16:58 Midodrine Hcl 2.5 Mg Tablet PO 15 mg TIDWM JAZMIN Administration Montelukast Sodium 10 mg 03/25/24 21:00 03/28/24 20:36 Montelukast Sodium 10 Mg Tablet PO 10 mg HS JAZMIN Administration Oxycodone HCl 5 mg 03/25/24 13:28 03/29/24 04:43 Oxycodone Hcl (*Crx) 5 Mg Tab Ir PO 5 mg Q6H PRN Administration Pain Rated 4-10 Pantoprazole Sodium 40 mg 03/25/24 17:00 03/28/24 16:58 Pantoprazole 40 Mg Tablet PO 40 mg BID JAZMIN Administration Tizanidine HCl 2 mg 03/25/24 13:28 03/29/24 04:44 Tizanidine Hcl 2 Mg Tablet PO 2 mg TID PRN Administration Muscle Spasm Vitamin B Complex/Folic Acid 1 cap 03/26/24 09:00 03/28/24 08:30 Vitamin B Cmplx/Vit C/Folic Ac 1 Capsule PO 1 cap QAM JAZMIN Administration Vitamin D 3,000 units 03/26/24 09:00 03/28/24 08:29 Cholecalciferol 1,000 Units Tablet PO 3,000 units DAILY JAZMIN Administration Radiology Results: ITS Impressions Chest X-Ray 03/25/24 10:24 IMPRESSION: 1. New airspace opacity lateral left lower lung zone which could be due to atelectasis, pneumonia, paracardial fat pad or some combination thereof. 2. Cardiomegaly. Chest CT 03/25/24 10:53 IMPRESSION: 1. Scattered chronic interstitial lung disease in both lungs which include multiple tiny calcified nodules consistent with either sequela of old granulomatous disease or potentially dystrophic calcification related to renal osteodystrophy. 2. Cardiomegaly. 3. Small sliding-type hiatal hernia. 4. Nephrolithiasis versus atherosclerotic calcifications at the visualized portion of the upper pole the right kidney. Thoracic Spine X-Ray 03/25/24 14:10 IMPRESSION: No acute fracture or traumatic malalignment detected in the thoracic spine. Labs Labs: Laboratory Results - last 24 hr 03/28/24 03/28/24 03/28/24 09:25 11:33 16:56 WBC 10.4 H RBC 3.41 L Hgb 9.2 L Hct 31.8 L MCV 93.3 MCH 27.0 MCHC 28.9 L RDW 16.4 H Plt Count 326 MPV 10.0 Immature Gran % (Auto) 1.7 H Neut % (Auto) 70.6 Lymph % (Auto) 19.0 [place] % (Auto) 8.3 Eos % (Auto) 0.2 Baso % (Auto) 0.2 Lymph # (Auto) 1.97 [place] # (Auto) 0.9 H Eos # (Auto) 0.0 Baso # (Auto) 0.0 Abs Immat Gran (auto) 0.18 H Absolute Neuts (auto) 7.3 H Absolute Nucleated RBC 0.080 H Nucleated RBC % 0.8 H Platelet Estimate Adequate Hypochromasia 1+ Anisocytosis 1+ Schistocytes None seen Sodium 142 Potassium 4.3 Chloride 96 L Carbon Dioxide 32 H Anion Gap 14 H BUN 36 H D Creatinine 7.85 H Estim Creat Clear Calc 6 Estimated GFR 6 L Glucose 97 POC Capillary Glucose 95 120 H Calcium 9.7 Total Bilirubin 0.7 AST 26 ALT 14 Alkaline Phosphatase 86 Total Protein 8.0 Albumin 4.2 03/28/24 03/29/24 20:07 08:16 WBC RBC Hgb Hct MCV MCH MCHC RDW Plt Count MPV Immature Gran % (Auto) Neut % (Auto) Lymph % (Auto) [place] % (Auto) Eos % (Auto) Baso % (Auto) Lymph # (Auto) [place] # (Auto) Eos # (Auto) Baso # (Auto) Abs Immat Gran (auto) Absolute Neuts (auto) Absolute Nucleated RBC Nucleated RBC % Platelet Estimate Hypochromasia Anisocytosis Schistocytes Sodium Potassium Chloride Carbon Dioxide Anion Gap BUN Creatinine Estim Creat Clear Calc Estimated GFR Glucose POC Capillary Glucose 90 90 Calcium Total Bilirubin AST ALT Alkaline Phosphatase Total Protein Albumin Quality VTE Prophylaxis VTE prophylaxis: pharmacologic ordered
[2024-03-29 08:41] LABS: Alanine Aminotransferase 11 U/L (6-35); Alkaline Phosphatase 78 U/L (38-126); Anion Gap 13 mmol/L (4-12); Aspartate Amino Transferase 22 U/L (14-36); Bilirubin,Total 1.1 mg/dL (0.2-1.3); Blood Urea Nitrogen 52 mg/dL (7-17); Calcium 9.1 mg/dL (8.4-10.2); Carbon Dioxide 28 mmol/L (22-30); Chloride 100 mmol/L (98-107); Estimated CRCL calculation 5 ml/min; Estimated Glomerular Filt Rate 5; Glucose 88 mg/dL (65-110); Potassium 4.4 mmol/L (3.4-5.0); Sodium 141 mmol/L (137-145)
[2024-03-29 09:19] LABS: Hypochromasia 1+; Platelet Estimate Adequate (Adequate)
[2024-03-29] MEDS: LIDOCAINE 5% PATCH 1 PATCH TRANSDERM (09:19)
[2024-03-29 09:20] LABS: Anisocytosis 1+; Schistocytes None Seen
[2024-03-29] MEDS: HEPARIN SODIUM 5,000 UNITS/ML VIAL 5000 UNITS SUB-Q (09:20)
[2024-03-29] MEDS: VITAMIN B CMPLX/VIT C/FOLIC AC 1 CAPSULE 1 CAP PO (09:23)
[2024-03-29] MEDS: guaiFENesin 12 HR 600 MG TABCR 1200 MG PO ×2 (09:23→21:59)
[2024-03-29] MEDS: FLUoxetine HCL 10 MG CAPSULE PO (09:23)
[2024-03-29] MEDS: CHOLECALCIFEROL 1,000 UNITS TABLET 3000 UNITS PO (09:23)
[2024-03-29] MEDS: ASPIRIN 81 MG ENTERIC TABLET PO (09:25)
[2024-03-29] MEDS: PANTOPRAZOLE 40 MG TABLET PO ×2 (09:26→18:28)
[2024-03-29] MEDS: DOXYCYCLINE HYCLATE 100 MG TABLET PO ×2 (09:26→21:59)
[2024-03-29] MEDS: MIDODRINE HCL 2.5 MG TABLET 15 MG PO ×2 (09:26→18:28)
[2024-03-29] MEDS: CALCIUM ACETATE 667 MG TABLET PO ×2 (09:26→18:28)
[2024-03-29] MEDS: FLUTICASONE PROPIONATE 0.05% NA SPR 16 GM BTL (*BKC) 2 SPRAY NASAL (09:27)
[2024-03-29] MEDS: CINACALCET 30 MG TABLET 60 MG PO (09:32)
[2024-03-29] MEDS: ONDANSETRON INJ 4 MG/2 ML VIAL IV PUSH (11:37)
[2024-03-29 11:52] LABS: Glucose Point of Care 127 mg/dl (65-105)
[2024-03-29 12:02] LABS: Alveolar/Arterial O2 Gradient 23.7 mmHg; Base Excess ABG -1.4 mEq/l (+/-2.0); Fractional Inspired Oxygen 21 %; HCO3 ABG 23.7 mEq/l (22.0-26.0); Oxygen Content ABG 12.6 %vol (16.0-22.0); Oxyhemoglobin 93.5 % THb (90.0-100.0); PCO2 ABG 41.5 mmHg (35.0-45.0); PO2 ABG 76.3 mmHg (80.0-100.0); PO2 FiO2 Ratio Arterial Blood 3.63 %; Total Hemoglobin 9.5 g/dL (12.0-18.0); pH ABG 7.375 (7.350-7.450)
[2024-03-29 12:04] LABS: Site Drawn RIGHT BRACHIAL
[2024-03-29 13:00] LABS: NT Pro B Type Natriuretic Pept > 30000 pg/mL (19.9-100)
[2024-03-29 13:09] LABS: Procalcitonin 2.6 ng/mL
--- NOTE | 2024-03-29 13:25 | PCPTNOTE ---
On 03/29/24, the student, STANLEY Rodriguez, provided care and completed [facility] documentation on this patient. I have reviewed the student's documentation and agree with the findings.
[2024-03-29 13:53] LABS: Influenza A QL RT-PCR Negative (Negative); Influenza B QL RT-PCR Negative (Negative); RSV RNA, RT-PCR Negative (Negative); SARS-CoV-2 RNA PCR Negative (Negative)
[2024-03-29] MEDS: HEPARIN SODIUM 1,000 UNITS/ML VIAL 1500 UNITS IV PUSH (14:33)
[2024-03-29] MEDS: HEPARIN SODIUM 1,000 UNITS/ML VIAL 500 UNITS IV PUSH ×4 (14:38→17:37)
--- NOTE | 2024-03-29 15:11 | P.PNNP_ITS ---
Progress Note: A&P Assessment and Plan (1) End stage renal disease: Code(s): N18.6 - End stage renal disease Status: Chronic Assessment and Plan: * HD tomorrow * continue Monday/Monday/Monday dialysis schedule while in [place] * follow electrolytes, volume status, and clearance (2) Shortness of breath: Code(s): R06.02 - Shortness of breath Status: Acute Assessment and Plan: * as noted on presentation * acute worsening noted 1 week after influenza diagnosis * known history of asthma and reactive airway disease * imaging noted: * CXR: new airspace opacity lateral left lower lung zone which could be due to atelectasis, pneumonia, paracardial fat pad or some combination thereof and cardiomegaly * CT of chest: scattered chronic interstitial lung disease in both lungs which include multiple tiny calcified nodules consistent with either sequela of old granulomatous disease or potentially dystrophic calcification related to renal osteodystrophy * no fevers or leukocytosis * some clinical improvement with bronchodilators and previous steroid use * blood culture with Enterobacter (1 out of 2) * on antibiotics * Pulmonary consulted * continue supportive therapy (3) Anemia: Code(s): D64.9 - Anemia, unspecified Status: Chronic Assessment and Plan: * due to ESRD along with acute illness * B12 and folate normal; iron studies c/w anemia of chronic disease * [facility] with HD * follow trend of H/H (4) Influenza: Code(s): J11.1 - Influenza due to unidentified influenza virus with other respiratory manifestations Status: Acute Assessment and Plan: * diagnosed with influenza 1 week prior to admission and completed a course of Tamiflu * repeat testing negative * continue supportive therapy (5) Obstructive sleep apnea: Code(s): G47.33 - Obstructive sleep apnea (adult) (pediatric) Status: Acute Assessment and Plan: * continue CPAP at night and with naps (6) Type II diabetes mellitus: Code(s): E11.9 - Type 2 diabetes mellitus without complications Status: Acute Assessment and Plan: * noted in the past but now diet controlled * hyperglycemia noted with steroid use * glycemic control per hospitalists Will continue to follow. L Subjective Date/time seen: 03/29/24 15:11 Interval history: Follow-up for end stage renal disease on hemodialysis. Tolerating dialysis treatment at the time of my visit (seen on HD at 3:00PM); breathing/respiratory status seems about the same -- not requiring supplemental oxygen but still reports ongoing shortness of breath in association with cough; no acute issues/events overnight or earlier this morning. Exam 2 Narrative: General: WD/WN female in NAD Heart: normal S1 and S2; no rub Lungs: coarse breath sounds; decreased at the bases Abdomen: soft, nontender, nondistended, positive bowel sounds Extremities: no cyanosis or clubbing; no edema Skin: no rash Objective Data Vital Signs Vital Signs: Vital Signs Temp Pulse Resp BP Pulse Ox O2 Del Method 03/29/24 15:00 80 118/64 03/29/24 14:45 79 124/70 03/29/24 14:38 86 126/75 03/29/24 14:29 97.5 F L 85 26 H 126/83 96 03/29/24 13:00 83 18 03/29/24 12:50 82 18 03/29/24 11:57 87 121/75 03/29/24 08:00 88 99 Room Air 03/29/24 07:15 84 18 03/29/24 07:05 80 18 03/29/24 07:05 80 18 93 Room Air 03/29/24 06:00 97.5 F L 88 22 H 124/74 98 03/29/24 02:40 87 20 03/29/24 02:30 94 Room Air 03/29/24 02:30 90 20 03/28/24 21:28 96.8 F L 79 16 132/81 100 Intake/Output Intake/Output: Intake & Output 03/26/24 03/27/24 03/28/24 03/29/24 23:59 23:59 23:59 23:59 Intake Total 5623 596 1749 1580 Output Total 1534 1999 Balance 1230 -974 1135 -420 Meds/Results Medications: Active Medications Generic Name Dose Route Start Last Admin Trade Name Freq PRN Reason Stop Dose Admin Acetaminophen 500 mg 03/25/24 13:28 03/28/24 13:51 Acetaminophen 500 Mg Tablet PO 500 mg QID PRN Administration Fever Or Pain 1-3 Albuterol 2 puff 03/25/24 22:34 Albuterol Sulfate (*Sp) Aerosol 1 Puff INHALATION QIDRT PRN Shortness Of Breath Albuterol/Ipratropium 3 ml 03/25/24 14:00 03/29/24 12:50 Ipratropium 0.5 Mg/Albuterol Sulfate 2.5 Mg Ampul.Neb 3 Ml INHALATION 3 ml Q6HRT JAZMIN Administration Artificial Tears 1 drop 03/25/24 13:28 Artificial Tears Ophth Soln 15 Ml Bottle EACH EYE TID PRN Dry Eyes Aspirin 81 mg 03/26/24 09:00 03/29/24 09:25 Aspirin 81 Mg Enteric Tablet PO 81 mg DAILY [facility] Administration Atorvastatin Calcium 40 mg 03/25/24 21:00 03/28/24 20:36 Atorvastatin 40 Mg Tablet PO 40 mg HS [facility] Administration Bisacodyl 5 mg 03/28/24 22:02 03/28/24 22:28 Bisacodyl 5 Mg Tablet Ec PO 5 mg QAM PRN Administration Constipation Budesonide 0.5 mg 03/29/24 20:00 Budesonide Respule Neb 0.5 Mg/2 Ml Amp INHALATION Q12HRT [facility] Calcium Acetate 667 mg 03/25/24 17:00 03/29/24 18:28 Calcium Acetate 667 Mg Tablet PO 667 mg BIDWM [facility] Administration Cinacalcet 60 mg 03/27/24 09:00 03/29/24 09:32 Cinacalcet 30 Mg Tablet PO 60 mg [id number]@[id number] [facility] Administration Clopidogrel Bisulfate 75 mg 03/30/24 09:00 Clopidogrel Bisulfate 75 Mg Tablet PO DAILY [facility] Dextrose 12.5 gm 03/25/24 13:22 Dextrose 50% 25 Gm/50 Ml Syringe IV PUSH PRN PRN Hypoglycemia Protocol Digoxin 125 mcg 03/28/24 09:00 03/28/24 08:44 Digoxin Tab 125 Mcg Tablet PO 125 mcg [id number]@0900 [facility] Administration Doxycycline Hyclate 100 mg 03/26/24 13:55 03/29/24 09:26 Doxycycline Hyclate 100 Mg Tablet PO 03/30/24 21:01 100 mg Q12HR [facility] Administration Epoetin Daniele-epbx 10,000 units 03/29/24 19:41 03/29/24 17:31 Epoetin Daniele-Epbx 10,000 Units/Ml Vial IV PUSH 03/29/24 19:42 10,000 units ONCE ONE Administration Fluoxetine HCl 10 mg 03/26/24 09:00 03/29/24 09:23 Fluoxetine Hcl 10 Mg Capsule PO 10 mg DAILY [facility] Administration Fluticasone Propionate 2 spray 03/26/24 09:00 03/29/24 09:27 Fluticasone Propionate 0.05% Na Spr 16 Gm Btl (*Bkc) NASAL 2 spray DAILY [facility]MIN Administration Gabapentin 200 mg 03/25/24 17:00 03/29/24 18:28 Gabapentin 100 Mg Capsule PO Not Given BID [facility]AZMIN Glucagon 1 mg 03/25/24 13:22 Glucagon For Inj 1 Mg Vial IM PRN PRN Hypoglycemia Protocol Glucose 15 gm 03/25/24 13:22 Glucose Oral Gel 15 Gm Of Glucse In 37.5 Gm Tube PO PRN PRN Hypoglycemia Protocol Guaifenesin 1,200 mg 03/27/24 21:00 03/29/24 09:23 Guaifenesin 12 Hr 600 Mg Tabcr PO 1,200 mg Q12HR [facility]AZMIN Administration Dextrose 1,000 mls @ 100 mls/hr 03/25/24 13:22 Dextrose 5% 1,000 Ml IVPB PRN PRN Hypoglycemia Protocol Albumin Human 50 mls @ 999 mls/hr 03/27/24 06:00 Albutein IVPB 04/26/24 05:59 Q10M PRN HYPOTENSION Cefepime HCl 1 gm in 50 mls @ 100 mls/hr 03/28/24 18:00 03/29/24 18:27 Maxipime 1 Gm/Ns 50 Ml IVPB 100 mls/hr DAILY@1800 [facility]MIN Administration Insulin Aspart 3 - 6 units 03/25/24 17:00 03/29/24 18:37 Insulin Aspart (*Bkc) 100 Units/Ml SUB-Q Not Given TIDWM [facility]AZMIN Protocol Latanoprost 1 drop 03/25/24 21:00 03/28/24 23:49 Latanoprost 0.005% Op Soln 2.5 Ml Btl EACH EYE 1 drop HS JAZMIN Administration Lidocaine 1 patch 03/26/24 09:00 03/29/24 09:19 Lidocaine 5% Patch TRANSDERM 1 patch DAILY [facility]MIN Administration Midodrine 15 mg 03/25/24 17:00 03/29/24 18:28 Midodrine Hcl 2.5 Mg Tablet PO 15 mg TIDWM JAZMIN Administration Montelukast Sodium 10 mg 03/25/24 21:00 03/28/24 20:36 Montelukast Sodium 10 Mg Tablet PO 10 mg HS [facility]AZMIN Administration Ondansetron HCl 4 mg 03/29/24 11:22 03/29/24 11:37 Ondansetron Inj 4 Mg/2 Ml Vial IV PUSH 4 mg Q6H PRN Administration Nausea And Vomiting Oxycodone HCl 5 mg 03/25/24 13:28 03/29/24 04:43 Oxycodone Hcl (*Crx) 5 Mg Tab Ir PO 5 mg Q6H PRN Administration Pain Rated 4-10 Pantoprazole Sodium 40 mg 03/25/24 17:00 03/29/24 18:28 Pantoprazole 40 Mg Tablet PO 40 mg BID JAZMIN Administration Perflutren Lipid Microsphere 0 ml 03/29/24 12:42 Perflutren Lipid Microspheres 1.5 Ml Vial Diluted To 10 Ml Total Volume IV PUSH 04/01/24 12:43 ONCE PRN adequate visualization Protocol Tizanidine HCl 2 mg 03/25/24 13:28 03/29/24 04:44 Tizanidine Hcl 2 Mg Tablet PO 2 mg TID PRN Administration Muscle Spasm Vitamin B Complex/Folic Acid 1 cap 03/26/24 09:00 03/29/24 09:23 Vitamin B Cmplx/Vit C/Folic Ac 1 Capsule PO 1 cap QAM JAZMIN Administration Vitamin D 3,000 units 03/26/24 09:00 03/29/24 09:23 Cholecalciferol 1,000 Units Tablet PO 3,000 units DAILY JAZMIN Administration Radiology Results: ITS Impressions Chest CT 03/25/24 10:53 IMPRESSION: 1. Scattered chronic interstitial lung disease in both lungs which include multiple tiny calcified nodules consistent with either sequela of old granulomatous disease or potentially dystrophic calcification related to renal osteodystrophy. 2. Cardiomegaly. 3. Small sliding-type hiatal hernia. 4. Nephrolithiasis versus atherosclerotic calcifications at the visualized portion of the upper pole the right kidney. Thoracic Spine X-Ray 03/25/24 14:10 IMPRESSION: No acute fracture or traumatic malalignment detected in the thoracic spine. Chest X-Ray 03/29/24 13:54 IMPRESSION: 1. Stable diffuse lung disease, consistent with chronic interstitial lung disease and mild atelectasis. 2. Cardiomegaly. Labs Labs: Laboratory Tests 03/29/24 07:38 03/29/24 07:38 Calcium 9.1 Total Bilirubin 1.1 AST 22 ALT 11 Alkaline Phosphatase 78 Total Protein 7.0 Albumin 4.0
--- NOTE | 2024-03-29 16:05 | P.CONPL_ITS ---
Assessment and Plan Assessment and plan (1) Asthma: Code(s): J45.909 - Unspecified asthma, uncomplicated Status: Acute Assessment and Plan: Patient is a never smoker and does not have COPD. She tells me she has asthma followed by her pinking machine operator Dr. Tobin. She tells me she is on inhalers for asthma but none are listed on her home medication list. Plan: currently the patient has wheezing. This may be related to asthma and/or fluid overload. Will continue DuoNebs q.6 hours. I will add nebulized budesonide 500 mcg twice a day. Patient is currently being treated for possible pneumonia. She received ceftriaxone 03/25 through 03/28. Azithromycin on 03/25 and doxycycline starting on 03/26 ( Day 5 azithromycin and doxycycline). I will send urine Legionella urine pneumococcal if she can provide urine and respiratory pathogen panel. I will send serum mycoplasma IgM. From a pulmonary perspective would continue 2 more days of doxycycline for total of 7 days. Would continue combination ceftriaxone and cefepime for total of 7 days although she will likely need cefepime longer given her Enterobacter cloaca a bacteremia. Repeat blood cultures to be drawn. pulmonary inpatient services will resume on 04/01/2024, call with questions Discussed with Joselyn Pandey (2) Obstructive sleep apnea: Code(s): G47.33 - Obstructive sleep apnea (adult) (pediatric) Status: Acute Assessment and Plan: We called her [employer] and the patient is on auto PAP 5-16. They have no data since August of 2022 either she is noncompliant or her data transfer is not working. She tells me she has not been wearing her machine recently. Plan: I will place the patient on hospital auto PAP 5-16. (3) Shortness of breath: Code(s): R06.02 - Shortness of breath Status: Acute Assessment and Plan: Etiology of patient's shortness of breath includes congestive heart failure, fluid overload, asthma exacerbation, enterobacter cloaca a bacteremia, untreated obstructive sleep apnea, and possible pneumonia. Patient's BNP greater than 30,000 on 03/25/2024 and 03/29/2024. This was 15,100 on 05/16/2022 after she was diuresed with aggressive dialysis. Patient currently has Jl-Fuentes respirations suggestive of congestive heart failure and fluid overload. She has wheezes but this may be related fluid overload and or asthma exacerbation. Plan: Patient is scheduled to receive dialysis today. Agree with aggressive dialysis as tolerated to remove fluid. Patient may require daily dialysis to remove fluid. She is followed by hospitalist and Nephrology. As above will treat for asthma exacerbation with DuoNebs and nebulized budesonide. We will initiate patient's auto PAP 5-16 tonight. Treatment for possible pneumonia as above. History of Present Illness History of Present Illness Consult date: 03/29/24 Chief complaint: Pneumonia Narrative: 03/29/2024: This is a new pulmonary worsening shortness of breath. 68-year-old with a history of asthma, LENORA on auto PAP 5-15, End-stage renal disease on hemodialysis, paroxysmal atrial fibrillation, Congestive heart failure with LVEF 30-35% and grade 2 diastolic dysfunction on 05/11/2022. previously seen on 05/16/2022 in consultation For hypoxemic respiratory failure and fluid overload requiring BiPAP. Patient underwent hemodialysis with fluid removal and return back to normal and was discharged. Per the patient she has had outpatient breathing studies and her pinking machine operator does not feel she has COPD. The patient does tell me she has asthma. Regarding her obstructive sleep apnea: Regarding her obstructive sleep apnea she was diagnosed in 2001 and has been on CPAP and more recently auto PAP through [facility]. She was followed by her pinking machine operator Dr. Tobin at an outside facility. Patient presented on 03/25/2024 with shortness of breath after being diagnosed At [facility] with influenza a on 03/16/2024. She was treated with azithromycin and Tamiflu but did not improve clinically. she completed hemodialysis on 03/25/2024 but appeared ill and was sent to the emergency department. In the emergency department her blood pressure is 139/83, heart rate 89, respirations 20 and room air saturations were 95%. Her COVID influenza and RSV RT PCR studies were negative. She had a CT scan of the chest and compared to 05/12/2022 her diffuse ground-glass infiltrates throughout all lung hernadez were not present. She had mild peripheral areas of calcified tree-in-bud infiltrates with minimal honeycombing in the right upper lobe, left upper lobe, left lower lobe and right lower lobe with no change in these chronic changes from 05/12/2022. Of note, she had a CT scan of the abdomen that showed these chronic changes in the right lower lobe on 05/06/2015. patient had worsening shortness of breath on 03/29 and an ABG on room air was 7.38/42/76. blood cultures from 03/25/2024 show Enterobacter cloaca a. patient had dialysis on 03/27/2024 with 1.5 L removed. 03/29/2024: When I enter the room the patient was on room air and laying on her side sleeping. I placed a pulse oximeter on her finger. She had Jl- Fuentes respirations with saturations ranging from 89% to 96%. During the tachypneic portion of her Jl-Fuentes cycling she would have a cough and an arousal. I will the patient up and she said that she her breathing is worse today. She has clear thick phlegm with some blood streaking. Her BUN was 52, creatinine 9.3, white blood cell count 10.0, BNP greater than 30,000. chest x- ray showed mild bibasilar interstitial infiltrates with no change from 03/25/2024. Cumulative she is positive 3.7 L since admission. DATA: EXAMINATION: CT diagnostic chest wo con DATE: 03/25/2024 10:52 INDICATION: cough, dyspnea TECHNIQUE: Computed tomography (CT) of the chest was performed without intravenous contrast. Additional 3D reconstructions utilizing coronal maximum intensity projection (MIP) were performed. Automated exposure control and iterative reconstruction technique were employed. The dose-length product was 207.26 mGy-cm. COMPARISON: 05/12/2022 FINDINGS: The previously seen groundglass opacities in the lungs have resolved. There are persistent patchy regions of coarse interstitial pattern and tree-in-bud opacities scattered throughout both lungs. There are numerous associated tiny calcifications which could be related to sequela of old granulomatous disease or potentially dystrophic calcification related to renal osteodystrophy. No pulmonary edema, pleural effusion or pneumothorax. Cardiomegaly. Atherosclerotic coronary artery calcifications. Left atrial appendage occlusion device. Tunneled right internal jugular central venous catheter with distal tip in the right atrium. No pericardial effusion. Thoracic aorta is normal in caliber. Postoperative change of prior sleeve gastrectomy with suture line along the greater curvature of the stomach. There is a small sliding-type hernia with portion of the suture line extending above level of the diaphragm. No pathologically enlarged thoracic lymphadenopathy. Severe thoracic spondylosis. Cholecystectomy clips the gallbladder fossa. There are couple low-attenuation hepatic cysts measuring up to 1.3 cm. There are cysts measuring up to 2 cm at the upper poles of both kidneys. Calcification is at the upper pole the right kidney could be either atherosclerotic or nephrolithiasis. Partially visualized combined instrumented anterior and posterior spinal fusion at the visualized lower cervical spine. IMPRESSION: 1. Scattered chronic interstitial lung disease in both lungs which include multiple tiny calcified nodules consistent with either sequela of old granulomatous disease or potentially dystrophic calcification related to renal osteodystrophy. 2. Cardiomegaly. 3. Small sliding-type hiatal hernia. 4. Nephrolithiasis versus atherosclerotic calcifications at the visualized portion of the upper pole the right kidney. 05/12/24: CT Scan of the Chest without Contrast: Clinical Indication: Fluid overload versus pneumonia Technique: Contiguous sections were acquired throughout the chest without intravenous contrast. Dose reduction technique was used on this scan by utilizing automated exposure control and iterative reconstruction technique. The dose-length product (DLP) was 247.08 mGy-cm. COMPARISON: 11/02/2012 Findings: There is no evidence of any significant mediastinal, hilar or axillary lymphadenopathy. There are atherosclerotic calcifications of the aorta. Mild coronary artery calcifications are present. There is no evidence of pleural or pericardial effusion. There is diffuse groundglass pulmonary disease bilaterally. There is mild interstitial thickening in the anterior upper lobes bilaterally, with possible small amount of aspirated material or pleural calcifications. Images through the upper abdomen reveal small hiatal hernia with probable prior bariatric surgery. Impression: Diffuse groundglass pulmonary disease. This is nonspecific, and could reflect pulmonary edema, pneumonia, or other inflammatory conditions. Clinical correlation is required. Probable chronic interstitial change in the anterior upper lobes bilaterally, with possible small amount of aspirated material. 05/11/2022: Echo Summary 1. Complete two-dimensional, color flow and Doppler transthoracic echocardiogram is performed. 2. Concentric left ventricular hypertrophy with mild LV enlargement and moderately reduced systolic function. 3. Grade 2 diastolic noncompliance. 4. Dilated left atrium. 5. Mildly sclerotic aortic valve. Left Ventricle Left ventricular chamber dimension is moderately enlarged. Left ventricular systolic function is moderately reduced, estimated at 30-35%. There is mild concentric increased left ventricular wall thickness. The left ventricular diastolic function is grade II diastolic dysfunction. Right Ventricle Right ventricular chamber dimension is normal. Left Atria Left atrial chamber dimension is moderately enlarged. Right Atria Right atrial chamber dimension is normal. Review of Systems 2 Constitutional: Constitutional: Reports no additional constitutional complaints Eyes: Eyes: Reports no additional eye complaints ENT: Reports system reviewed and no additional complaints, except as documented Cardiovascular: Cardiovascular: Reports no additional cardiovascular complaints Respiratory: Respiratory: Reports no additional respiratory complaints Gastrointestinal: Gastrointestinal: Reports no additional gastrointestinal complaints Musculoskeletal: Musculoskeletal: Reports no additional musculoskeletal complaints Neurologic: Reports system reviewed and no additional complaints, except as documented Psychiatric: Psychiatric: Reports no additional psychiatric complaints Endocrine: Endocrine: Reports no additional endocrine complaints Hematologic/Lymphatic: Hematologic/Lymphatic: Reports no additional hematologic/lymphatic complaints Allergic/Immunologic: Allergic/Immunologic: Reports no additional allergic/immunologic complaints [facility] Past Medical History Medical History (Updated 03/25/24 @ 13:10 by Saul العلي MD) Hx of completed stroke 10/05/23 small left occipital lobe stroke after c-spine surgery Chronic hypotension Chronic obstructive pulmonary disease Hypotension On midodrine. Chronic anticoagulation Renal osteodystrophy Combined systolic and diastolic congestive heart failure Echo 10/2012: severe LV enlargement, moderate LV dysfunction with wall motion abnormality at the inferior basal segment, EF 44%, grade 2 diastolic dysfunction. Non-ischemic cardiomyopathy Negative cardiac catheterization showing no obstructive coronary disease in 2003 at [place]. EF at that time was 20% but has improved to 54% in 02/2015. Chronic anemia History of blood transfusions. Hypothyroidism Gout Kidney stones Peptic ulcer (07/2003) Gastroesophageal reflux disease Deep venous thrombosis (02/2013) Paroxysmal atrial fibrillation s/p Watchman Obstructive sleep apnea End-stage renal disease on hemodialysis (09/2009) Type II diabetes mellitus Complicated by peripheral neuropathy and nephropathy. Asthma Diverticulosis Anxiety Hyperlipidemia Surgical History Surgical History (Updated 03/25/24 @ 12:52 by Saul العلي MD) Hx of cervical spine surgery C3-C6 laminectomies, C2-C7 instrumented posterior spinal fusion on 10/05/23 [address] [facility] Presence of Watchman left atrial appendage closure device 02/08/24 History of colonoscopy with polypectomy History of cardiac catheterization (08/20/13) Normal coronary arteries per Dr. Oliveros at [place]. Status post creation of arteriovenous fistula Left forearm. History of parathyroidectomy History of cystoscopy (03/2012) History of sleeve gastrectomy (2013) History of cardiac radiofrequency ablation (1993) For SVT. History of mandibular surgery (1987) For TMJ. History of angioplasty History of myomectomy History of cholecystectomy (2014) History of section History of hysterectomy (1993) Family History Family History Mother Hypertension Family history of congestive heart failure Family history of congenital heart disease Family history of arthritis Family history of kidney disease Family history of chronic obstructive pulmonary disease Father Carcinoma of colon Sibling Family history of diabetes mellitus in first degree relative Grandparent Family history of congestive heart failure Diabetes mellitus Father Carcinoma of colon Mother Diabetes mellitus Acute myocardial infarction Hypertension Hyperlipidemia Grandparent Diabetes mellitus Acute myocardial infarction Stomach cancer Other Family history of cardiovascular disease Social History Social History (Updated 03/25/24 @ 12:45 by Saul العلي MD) Social History: Lives alone. Never smoker. No alcohol use. No drug use or hx of drug use. No pets. Surrogate decision maker: Sara Tobin Code status: Full code. Smoking status: Never smoker Second hand tobacco smoke exposure: No Alcohol intake: never Substance use: never Substance use type: does not use Do You Feel Safe in your Home?: Yes Lack of Transportation: No Lack of Food: Sometimes True Current Housing: I Have Housing Concerned About Future Housing: No Difficulty Paying Gas/Electric Bills: No Difficulty Paying for Meds: No Currently Unemployed: No Education: Decline to Answer Difficulty w/ Childcare or Family Care: No Additional living arrangements comments: Lives in [place]. 3 grown children. Additional occupation/education comments: [employer]. Spiritual care concerns: No Meds Home Medications and Allergies Home Medications ?Medication ?Instructions ?Recorded ?Confirmed ?Type calcium acetate(phosphat bind) 667 667 mg PO BIDWM #60 tabs 04/25/23 03/25/24 Rx mg tablet lidocaine 4 % topical patch 1 patch topical DAILY #30 ea 04/25/23 03/25/24 Rx (Lidocaine Pain Relief) vitamin B complex-vitamin C-folic 1 tablet PO DAILY #30 tabs 04/25/23 03/25/24 Rx acid 0.8 mg tablet (Dialyvite 800) acetaminophen 500 mg tablet 500 mg PO QID PRN Fever Or Pain 10/18/23 03/25/24 History cholecalciferol (vitamin D3) 25 3,000 unit PO DAILY 10/18/23 03/25/24 History mcg (1,000 unit) tablet (Vitamin D3) cinacalcet 30 mg tablet (Sensipar) 60 mg PO QMWF 10/18/23 03/25/24 History fluoxetine 10 mg capsule (Prozac) 10 mg PO DAILY 10/18/23 03/25/24 History midodrine 5 mg tablet 15 mg PO TIDWMEAL 10/18/23 03/25/24 History atorvastatin 40 mg tablet 40 mg PO HS 30 days #30 tabs 11/03/23 03/25/24 Rx digoxin 125 mcg (0.125 mg) tablet 125 mcg PO SuTh 30 days #9 tabs 11/03/23 03/25/24 Rx fluticasone propionate 50 2 spray intranasal DAILY 30 days 11/03/23 03/25/24 Rx mcg/actuation nasal #16 grams spray,suspension latanoprost 0.005 % eye drops 1 drp EACH EYE HS 30 days #2.5 mL 11/03/23 03/25/24 Rx (Xalatan) montelukast 10 mg tablet 10 mg PO HS 30 days #30 tabs 11/03/23 03/25/24 Rx (Singulair) oxycodone 5 mg tablet 5 mg PO Q6H PRN Pain Rated 4-10 11/03/23 03/25/24 Rx #28 tabs peg [id number] 1 1 drp EACH EYE TID PRN Dry Eyes 30 11/03/23 03/25/24 Rx %-0.2 %-0.2 % eye drops days #15 mL (Artificial Tears ([id number])) tizanidine 2 mg tablet 2 mg PO TID PRN Muscle Spasm #30 11/03/23 03/25/24 Rx tabs aspirin 81 mg tablet,delayed 81 mg PO DAILY 03/25/24 03/25/24 History release (Adult Aspirin Regimen) gabapentin 100 mg capsule 200 mg PO BID 03/25/24 03/25/24 History lanthanum 1,000 mg chewable tablet 1,000 mg PO .with meals 03/25/24 03/25/24 History omeprazole 20 mg capsule,delayed 20 mg PO BID 03/25/24 03/25/24 History release clopidogrel 75 mg tablet 75 mg PO DAILY 03/28/24 03/28/24 History Allergies Allergy/AdvReac Type Severity Reaction Status Date / Time lisinopril Allergy Unknown Unknown Verified 03/25/24 16:07 propoxyphene Allergy Unknown Unknown Verified 03/25/24 16:07 valsartan Allergy Unknown lost voice Verified 03/25/24 16:07 Vital Signs Vital Signs - 24 hr 03/28/24 21:28 03/29/24 02:30 03/29/24 02:30 Temperature 36.0 C L Pulse Rate 79 90 Respiratory Rate 16 20 Blood Pressure 132/81 Pulse Oximetry 100 94 Oxygen Delivery Room Air 03/29/24 02:40 03/29/24 06:00 03/29/24 07:05 Temperature 36.4 C L Pulse Rate 87 88 80 Respiratory Rate 20 22 H 18 Blood Pressure 124/74 Pulse Oximetry 98 93 Oxygen Delivery Room Air 03/29/24 07:05 03/29/24 07:15 03/29/24 08:00 Temperature Pulse Rate 80 84 88 Respiratory Rate 18 18 Blood Pressure Pulse Oximetry 99 Oxygen Delivery Room Air 03/29/24 11:57 03/29/24 12:50 03/29/24 13:00 Temperature Pulse Rate 87 82 83 Respiratory Rate 18 18 Blood Pressure 121/75 Pulse Oximetry Oxygen Delivery Exam 2 Const: General: cooperative and healthy appearing O rientation/consciousness: oriented to person, oriented to place and oriented to time Other: mild distress HENMT: Head: normal to inspection Ears: hearing grossly normal bilaterally Eyes: General: appearance normal, both eyes and all related structures Neck: Neck: normal visual inspection Chest: Chest palpation & inspection: normal inspection of the chest Resp: Effort & Inspection: normal respiratory effort and able to speak in complete sentences Auscultation: crackles, no rales, no rhonchi, wheezes and lung sounds not diminished Cardio: Jugular venous distension: no JVD GI: Inspection: normal to inspection GI Palp: No abdominal tenderness Skin: General skin exam: normal color Neuro: General: oriented to person, oriented to place and oriented to time Extrem: General: normal to inspection Psych: Appearance: grossly normal Results Laboratory Findings 03/29/24 07:38 03/29/24 07:38 ABG, PT/INR, D-dimer: ABG ABG pH 7.375 (7.350-7.450) 03/29/24 11:50 ABG pCO2 41.5 mmHg (35.0-45.0) 03/29/24 11:50 ABG pO2 76.3 mmHg (80.0-100.0) L 03/29/24 11:50 ABG O2 Saturation 95.0 % (95.0-100.0) 03/29/24 11:50 PT/INR, D-dimer PT 14.0 Seconds (11.1-14.7) 03/25/24 10:11 INR 1.1 03/25/24 10:11 Abnormal lab findings: Abnormal Labs 03/25/24 03/26/24 03/26/24 10:11 06:02 08:11 WBC RBC 2.85 L 3.22 L Hgb 7.9 L 8.9 L Hct 25.5 L 29.0 L MCHC 31.0 L 30.7 L RDW 15.9 H 15.5 H Immature Gran % (Auto) 1.0 H Hutchinson % (Auto) Hutchinson # (Auto) Abs Immat Gran (auto) 0.08 H Absolute Neuts (auto) Absolute Nucleated RBC Nucleated RBC % ABG pO2 ABG O2 Content Total Hemoglobin Chloride 97 L Carbon Dioxide Anion Gap 14 H 16 H BUN 23 H D 36 H D Creatinine 4.94 H 8.21 H Estimated GFR 11 L 6 L Glucose 153 H POC Capillary Glucose 196 H Phosphorus 5.8 H TIBC 196 L Ferritin 1390.00 H NT-Pro-B Natriuret Pep > 74762 H Vitamin B12 996.0 H Folate > 20.0 H 03/26/24 03/26/24 03/26/24 11:35 16:23 20:06 WBC RBC Hgb Hct MCHC RDW Immature Gran % (Auto) Hutchinson % (Auto) Hutchinson # (Auto) Abs Immat Gran (auto) Absolute Neuts (auto) Absolute Nucleated RBC Nucleated RBC % ABG pO2 ABG O2 Content Total Hemoglobin Chloride Carbon Dioxide Anion Gap BUN Creatinine Estimated GFR Glucose POC Capillary Glucose 311 H 169 H 279 H Phosphorus TIBC Ferritin NT-Pro-B Natriuret Pep Vitamin B12 Folate 02/07/1403/27/24 03/27/24 08:00 08:17 12:36 WBC 11.8 H RBC 3.09 L Hgb 8.5 L Hct 28.1 L MCHC 30.2 L RDW 15.9 H Immature Gran % (Auto) Hutchinson % (Auto) Hutchinson # (Auto) Abs Immat Gran (auto) Absolute Neuts (auto) Absolute Nucleated RBC Nucleated RBC % ABG pO2 ABG O2 Content Total Hemoglobin Chloride Carbon Dioxide Anion Gap 17 H BUN 54 H D Creatinine 10.42 H Estimated GFR 4 L Glucose 140 H POC Capillary Glucose 164 H 109 H Phosphorus 5.8 H TIBC Ferritin NT-Pro-B Natriuret Pep Vitamin B12 Folate 03/27/24 03/28/24 03/28/24 16:31 09:25 16:56 WBC 10.4 H RBC 3.41 L Hgb 9.2 L Hct 31.8 L MCHC 28.9 L RDW 16.4 H Immature Gran % (Auto) 1.7 H Hutchinson % (Auto) Hutchinson # (Auto) 0.9 H Abs Immat Gran (auto) 0.18 H Absolute Neuts (auto) 7.3 H Absolute Nucleated RBC 0.080 H Nucleated RBC % 0.8 H ABG pO2 ABG O2 Content Total Hemoglobin Chloride 96 L Carbon Dioxide 32 H Anion Gap 14 H BUN 36 H D Creatinine 7.85 H Estimated GFR 6 L Glucose POC Capillary Glucose 180 H 120 H Phosphorus TIBC Ferritin NT-Pro-B Natriuret Pep Vitamin B12 Folate 03/29/24 03/29/24 03/29/24 07:36 07:38 11:45 WBC RBC 3.08 L Hgb 8.5 L Hct 28.4 L MCHC 29.9 L RDW 16.1 H Immature Gran % (Auto) 1.6 H Hutchinson % (Auto) 9.7 H Hutchinson # (Auto) 1.0 H Abs Immat Gran (auto) 0.16 H Absolute Neuts (auto) Absolute Nucleated RBC 0.050 H Nucleated RBC % 0.5 H ABG pO2 ABG O2 Content Total Hemoglobin Chloride Carbon Dioxide Anion Gap 13 H BUN 52 H D Creatinine 9.30 H Estimated GFR 5 L Glucose POC Capillary Glucose 127 H Phosphorus TIBC Ferritin NT-Pro-B Natriuret Pep > 28763 H Vitamin B12 Folate 03/29/24 11:50 WBC RBC Hgb Hct MCHC RDW Immature Gran % (Auto) Hutchinson % (Auto) Hutchinson # (Auto) Abs Immat Gran (auto) Absolute Neuts (auto) Absolute Nucleated RBC Nucleated RBC % ABG pO2 76.3 L ABG O2 Content 12.6 L Total Hemoglobin 9.5 L Chloride Carbon Dioxide Anion Gap BUN Creatinine Estimated GFR Glucose POC Capillary Glucose Phosphorus TIBC Ferritin NT-Pro-B Natriuret Pep Vitamin B12 Folate Diagnostic Findings Additional studies: ITS Impressions Chest X-Ray 03/25/24 10:24 IMPRESSION: 1. New airspace opacity lateral left lower lung zone which could be due to atelectasis, pneumonia, paracardial fat pad or some combination thereof. 2. Cardiomegaly. Chest CT 03/25/24 10:53 IMPRESSION: 1. Scattered chronic interstitial lung disease in both lungs which include multiple tiny calcified nodules consistent with either sequela of old granulomatous disease or potentially dystrophic calcification related to renal osteodystrophy. 2. Cardiomegaly. 3. Small sliding-type hiatal hernia. 4. Nephrolithiasis versus atherosclerotic calcifications at the visualized portion of the upper pole the right kidney. Thoracic Spine X-Ray 03/25/24 14:10 IMPRESSION: No acute fracture or traumatic malalignment detected in the thoracic spine. Chest X-Ray 03/29/24 13:54 IMPRESSION: 1. Stable diffuse lung disease, consistent with chronic interstitial lung disease and mild atelectasis. 2. Cardiomegaly.
[2024-03-29] MEDS: EPOETIN ALFA-EPBX 10,000 UNITS/ML VIAL 10000 UNITS IV PUSH (17:31)
[2024-03-29] MEDS: HEPARIN SODIUM 1,000 UNITS/ML VIAL 5000 UNITS IV PUSH (18:20)
[2024-03-29] MEDS: CEFEPIME 1 GM/NS 50 ML 1 GM/50 ML BAG IVPB (18:27)
[2024-03-29 18:39] LABS: Glucose Point of Care 75 mg/dl (65-105)
[2024-03-29] MEDS: BUDESONIDE RESPULE NEB 0.5 MG/2 ML AMP INHALATION (20:38)
[2024-03-29 20:44] LABS: Glucose Point of Care 100 mg/dl (65-105)
[2024-03-29] MEDS: LATANOPROST 0.005% OP SOLN 2.5 ML BTL 1 DROP EACH EYE (21:00)
[2024-03-29] MEDS: MONTELUKAST SODIUM 10 MG TABLET PO (21:59)
[2024-03-29] MEDS: ATORVASTATIN 40 MG TABLET PO (21:59)
[2024-03-30] VITALS (26 sets, daily range): BP systolic 100–121; BP diastolic 52–75; PULSE 67–97; RESP 16–19; TEMP 0–36.5; O2SAT 96–100
[2024-03-30] MEDS: IPRATROPIUM 0.5 MG/ALBUTEROL SULFATE 2.5 MG AMPUL.NEB 3 ML INHALATION ×3 (03:07→20:01)
[2024-03-30 06:27] LABS: Basophils Percent Auto 0.3 % (0.2-1.2); Eosinophils Absolute Auto 0.4 K/mm3 (0-0.3); Eosinophils Percent Auto 3.9 % (0-4.4); Hematocrit 31.1 % (37.0-47.0); Hemoglobin 9.1 g/dL (12.0-15.0); Immature Granulocyte Absolute 0.18 K/mm3 (0.00-0.031); Lymphocytes Absolute Auto 2.29 K/mm3 (0.9-3.2); Lymphocytes Percent Auto 25.1 % (18.3-44.2); Mean Corpuscular HGB Conc 29.3 g/dl (32-36); Mean Corpuscular Hemoglobin 27.4 pg (26-34); Mean Corpuscular Volume 93.7 fl (80-100); Mean Platelet Volume 9.9 fl (7.4-10.4); Monocytes Percent Auto 10.4 % (2.6-8.5); Neutrophils Absolute Auto 5.3 K/mm3 (1.3-6.7); Neutrophils Percent Auto 58.3 % (45.5-73.1); Nucleated Red Blood Cells Perc 0.8 % (0.0-0.2); Platelet Count Result 286 k/mm3 (150-375); Red Blood Count 3.32 M/mm3 (4.2-5.4); Red Cell Distribution Width 16.2 % (11.5-14.5); White Blood Count 9.1 K/mm3 (4.5-10.0)
[2024-03-30 06:38] LABS: Alanine Aminotransferase 10 U/L (6-35); Albumin Level 3.9 g/dL (3.5-5.1); Alkaline Phosphatase 82 U/L (38-126); Anion Gap 12 mmol/L (4-12); Aspartate Amino Transferase 21 U/L (14-36); Blood Urea Nitrogen 26 mg/dL (7-17); Calcium 8.8 mg/dL (8.4-10.2); Carbon Dioxide 25 mmol/L (22-30); Chloride 102 mmol/L (98-107); Estimated CRCL calculation 8 ml/min; Estimated Glomerular Filt Rate 8; Glucose 81 mg/dL (65-110); Potassium 4.3 mmol/L (3.4-5.0); Sodium 139 mmol/L (137-145)
[2024-03-30] MEDS: BUDESONIDE RESPULE NEB 0.5 MG/2 ML AMP INHALATION ×2 (07:28→20:01)
[2024-03-30 07:58] LABS: Anisocytosis 1+; Hypochromasia 1+; Platelet Estimate Adequate (Adequate); Schistocytes None Seen
[2024-03-30 08:09] LABS: Glucose Point of Care 83 mg/dl (65-105)
--- NOTE | 2024-03-30 08:21 | P.PNIM_ITS ---
Progress Note: A&P Assessment and Plan (1) Shortness of breath: Code(s): R06.02 - Shortness of breath Status: Acute Assessment and Plan: Patient presents with worsening SOB 1 week after being diagnosed with influenza. CT chest showing what appears to be more chronic findings. WBC normal and no fevers. She is having pleuritic chest pain and scant hemopytsis but sputum o/w clear. Consider PE but no evidence of DVT, tachycardia or hypoxia. And another diagnosis more likely. She denies that she has COPD but does have asthma; suspect she is having more of an asthma exacerbation Possible fluid overload however she just had HD. BNP probably chronically elevated. CXR: 1. New airspace opacity lateral left lower lung zone which could be due to atelectasis, pneumonia, paracardial fat pad or some combination thereof. 2. Cardiomegaly. Chest CT: 1. Scattered chronic interstitial lung disease in both lungs which include multiple tiny calcified nodules consistent with either sequela of old granulomatous disease or potentially dystrophic calcification related to renal osteodystrophy. 2. Cardiomegaly. 3. Small sliding-type hiatal hernia. 4. Nephrolithiasis versus atherosclerotic calcifications at the visualized portion of the upper pole the right kidney. Repeat CXR: 1. Stable diffuse lung disease, consistent with chronic interstitial lung disease and mild atelectasis. 2. Cardiomegaly. - Echo LVEF 25-30% with mild pulmonary hypertension - MRSA nasal swab negative. - BCx returned positive with Enterobacter cloacae (other set NGTD) - Repeat BCx ordered - Antibiotics: Rocephin transitioned to cefepime base on cultures, continue Doxycycline. No old Cx to compare. - Started bronchodilators and steroids. - Continue Pep therapy and IS - Monitor vital signs, I&Os, neuro status and patient is a fall risk - Follow WBC, serum electrolytes, temperature curves and cultures - Pulmonology consulted, appreciate recommendations Patient currently has Jl-Fuentes respirations suggestive of chf and fluid overload Continue 2 more days of doxycycline for total of 7 days. Continue combination ceftriaxone and cefepime for total of 7 days although she will likely need cefepime longer given her Enterobacter cloaca a bacteremia. Repeat blood cultures to be drawn. (2) Asthma: Code(s): J45.909 - Unspecified asthma, uncomplicated Status: Acute Assessment and Plan: Chronic asthma. 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 Continues to have wheezing. - Pulmonology consulted, appreciate recommendations DuoNebs q6 Budesonide 500 mcg BID (3) Influenza: Code(s): J11.1 - Influenza due to unidentified influenza virus with other respiratory manifestations Status: Acute Assessment and Plan: Patient diagnosed with influenza and completed a course of Tamiflu Repeat testing negative. Hold off on repeat treatment since stable and testing negative now Follow (4) Combined systolic and diastolic congestive heart failure: Code(s): I50.40 - Unspecified combined systolic (congestive) and diastolic (congestive) heart failure Status: Acute Assessment and Plan: - Dialysis MWF, not on any GDMT medications - BNP: > 87167 likely chronically elevated - See chest XR and CTA above in #1 - Echo: LVEF 25-30% with mild pulmonary hypertension Echo 05/11/22: LVEF 30-35% - Monitor vital signs, I&Os, BUN/creatinine, daily weights, neuro status and patient is a fall risk - Monitor serum electrolytes, Keep serum Potassium>4 and serum Magnesium>2 and CBC - Cardiology consulted, appreciate recommendations (5) End-stage renal disease on hemodialysis: Onset Date: 09/2009 Code(s): N18.6 - End stage renal disease; Z99.2 - Dependence on renal dialysis Status: Acute Assessment and Plan: Patient on dialysis --. Nephrology consult for dialysis treatment plan. (6) Chronic anemia: Code(s): D64.9 - Anemia, unspecified Status: Chronic Assessment and Plan: Patient with chronic anemia. Hgb last year was in the 8-11 range. Hgb 7.9 on admission and 8.9 on repeat. H/H 9.1/31.1 on am labs B12 and folate normal. Iron studies c/w anemia of chronic disease probably from ESRD. Follow (7) Obstructive sleep apnea: Code(s): G47.33 - Obstructive sleep apnea (adult) (pediatric) Status: Acute Assessment and Plan: Patient with LENORA, states she intermittently wears her auto pap overnight but has not been wearing it recently. She did not receive her CPAP overnight. Call made to Respiratory therapy for CPAP at night and with naps as she tolerates Pulmonology called [facility] and the patient is on auto PAP 5-16. They have no data since August of 2022 so either she is noncompliant or her data transfer is not working. Start auto pap at 5-16. (8) Back pain: Code(s): M54.9 - Dorsalgia, unspecified Status: Acute Assessment and Plan: Patient with mid thoracic palpable back pain. No trauma. Xray showing no fractures. Continue Lidocaine patch (9) Type II diabetes mellitus: Code(s): E11.9 - Type 2 diabetes mellitus without complications Status: Acute Assessment and Plan: Patient has DM in the past requiring sliding scale insulin but not requiring treatment now. A1c 4.7%. She has peripheral neuropathy and takes Gabapentin for this. Continue sliding scale with hypoglycemia protocol. Plan DVT prophylaxis - Heparin Code status - full Debility - PT/OT Time Spent With Patient Time with patient: 25 - 35 minutes Subjective Date/time seen: 03/30/24 08:21 Interval history: 68yo female with ESRD on HD M-W-F, CHF, PAFib s/p Watchman, DM and LENORA here for feeling short of breath and cough. Patient is pleasant sitting up comfortably in her chair. She continues to endorse shortness of breath and difficulty talking, but notes that this has improved since her nebulizer treatment. She remains on room air. She states that the vest CPT has helped with the mucous and continues to use the cornet. She has no other complaints denying chest pain, palpitations, nausea/vomiting and abdominal pain. Review of Systems Review of Systems: All systems reviewed & are unremarkable except as noted in HPI and below Exam Narrative: AF HR 78 RR 18 SPo2 98 BP 103/52 General: female who is nontoxic appearing, sitting up in chair HEENT: Normocephalic. Atraumatic. Extraocular movement intact. Sclera clear and anicteric. No facial asymmetry. Chest: Lung on auscultation bilaterally with crackles in the bases. Speak full sentences. No wheezes. CV: Heart was regular rate and rhythm. S1-S2. No murmurs, gallops, or rubs. Abd: Abdomen was soft. Nontender. Nondistended. Positive bowel sounds. No organomegaly or masses. Ext: No clubbing, cyanosis, or edema. 2+ DP pulses bilaterally. Neuro: Patient is alert. Speech is clear. Objective Data Vital Signs Vital Signs: Vital Signs - 24 hr 03/29/24 11:57 03/29/24 12:50 03/29/24 13:00 Temperature Pulse Rate 87 82 83 Respiratory Rate 18 18 Blood Pressure 121/75 Pulse Oximetry Oxygen Delivery 03/29/24 14:29 03/29/24 14:38 03/29/24 14:45 Temperature 97.5 F L Pulse Rate 85 86 79 Respiratory Rate 26 H Blood Pressure 126/83 126/75 124/70 Pulse Oximetry 96 Oxygen Delivery 03/29/24 15:00 03/29/24 15:15 03/29/24 15:30 Temperature Pulse Rate 80 82 82 Respiratory Rate Blood Pressure 118/64 111/66 109/63 Pulse Oximetry Oxygen Delivery 03/29/24 15:45 03/29/24 16:00 03/29/24 16:15 Temperature Pulse Rate 86 89 87 Respiratory Rate Blood Pressure 100/58 L 99/60 L 92/64 L Pulse Oximetry Oxygen Delivery 03/29/24 16:30 03/29/24 16:45 03/29/24 17:00 Temperature Pulse Rate 87 88 85 Respiratory Rate Blood Pressure 97/63 L 106/66 100/57 L Pulse Oximetry Oxygen Delivery 03/29/24 17:15 03/29/24 17:30 03/29/24 17:45 Temperature Pulse Rate 86 86 98 Respiratory Rate Blood Pressure 93/62 L 93/61 L 98/62 L Pulse Oximetry Oxygen Delivery 03/29/24 17:55 03/29/24 18:01 03/29/24 20:00 Temperature 98 F Pulse Rate 83 87 8 L Respiratory Rate 20 2 L Blood Pressure 93/63 L 113/67 Pulse Oximetry 99 99 Oxygen Delivery Room Air 03/29/24 20:40 03/29/24 20:47 03/29/24 20:52 Temperature Pulse Rate 89 93 Respiratory Rate 18 18 Blood Pressure Pulse Oximetry 94 Oxygen Delivery Room Air 03/29/24 22:00 03/29/24 23:25 03/30/24 03:10 Temperature 97.1 F L Pulse Rate 87 84 84 Respiratory Rate 16 20 19 Blood Pressure 123/85 Pulse Oximetry 98 98 Oxygen Delivery Autopap 03/30/24 06:00 03/30/24 07:32 03/30/24 07:32 Temperature 97.2 F L Pulse Rate 97 94 Respiratory Rate 16 18 Blood Pressure 103/52 L Pulse Oximetry 96 98 Oxygen Delivery Room Air 03/30/24 07:43 Temperature Pulse Rate 78 Respiratory Rate 18 Blood Pressure Pulse Oximetry Oxygen Delivery Intake/Output Intake/Output: Intake & Output 03/27/24 03/28/24 03/29/24 03/30/24 23:59 23:59 23:59 23:59 Intake Total 560 1135 1830 550 Output Total 1534 1999 Balance -974 1135 -170 550 Meds/Results Medications: Active Medications Generic Name Dose Route Start Last Admin Trade Name Freq PRN Reason Stop Dose Admin Acetaminophen 500 mg 03/25/24 13:28 03/28/24 13:51 Acetaminophen 500 Mg Tablet PO 500 mg QID PRN Administration Fever Or Pain 1-3 Albuterol 2 puff 03/25/24 22:34 Albuterol Sulfate (*Sp) Aerosol 1 Puff INHALATION QIDRT PRN Shortness Of Breath Albuterol/Ipratropium 3 ml 03/25/24 14:00 03/30/24 07:28 Ipratropium 0.5 Mg/Albuterol Sulfate 2.5 Mg Ampul.Neb 3 Ml INHALATION 3 ml Q6HRT JAZMIN Administration Artificial Tears 1 drop 03/25/24 13:28 Artificial Tears Ophth Soln 15 Ml Bottle EACH EYE TID PRN Dry Eyes Aspirin 81 mg 03/26/24 09:00 03/29/24 09:25 Aspirin 81 Mg Enteric Tablet PO 81 mg DAILY JAZMIN Administration Atorvastatin Calcium 40 mg 03/25/24 21:00 03/29/24 21:59 Atorvastatin 40 Mg Tablet PO 40 mg HS JAZMIN Administration Bisacodyl 5 mg 03/28/24 22:02 03/28/24 22:28 Bisacodyl 5 Mg Tablet Ec PO 5 mg QAM PRN Administration Constipation Budesonide 0.5 mg 03/29/24 20:00 03/30/24 07:28 Budesonide Respule Neb 0.5 Mg/2 Ml Amp INHALATION 0.5 mg Q12HRT JAZMIN Administration Calcium Acetate 667 mg 03/25/24 17:00 03/29/24 18:28 Calcium Acetate 667 Mg Tablet PO 667 mg BIDWM JAZMIN Administration Cinacalcet 60 mg 03/27/24 09:00 03/29/24 09:32 Cinacalcet 30 Mg Tablet PO 60 mg [id number] JAZMIN Administration Clopidogrel Bisulfate 75 mg 03/30/24 09:00 Clopidogrel Bisulfate 75 Mg Tablet PO DAILY JAZMIN Dextrose 12.5 gm 03/25/24 13:22 Dextrose 50% 25 Gm/50 Ml Syringe IV PUSH PRN PRN Hypoglycemia Protocol Digoxin 125 mcg 03/28/24 09:00 03/28/24 08:44 Digoxin Tab 125 Mcg Tablet PO 125 mcg SuTh@0900 JAZMIN Administration Doxycycline Hyclate 100 mg 03/26/24 13:55 03/29/24 21:59 Doxycycline Hyclate 100 Mg Tablet PO 03/30/24 21:01 100 mg Q12HR JAZMIN Administration Epoetin Daniele-epbx 10,000 units 03/30/24 18:18 Epoetin Daniele-Epbx 10,000 Units/Ml Vial IV PUSH 03/30/24 18:19 ONCE ONE Fluoxetine HCl 10 mg 03/26/24 09:00 03/29/24 09:23 Fluoxetine Hcl 10 Mg Capsule PO 10 mg DAILY JAZMIN Administration Fluticasone Propionate 2 spray 03/26/24 09:00 03/29/24 09:27 Fluticasone Propionate 0.05% Na Spr 16 Gm Btl (*Bkc) NASAL 2 spray DAILY JAZMIN Administration Gabapentin 200 mg 03/25/24 17:00 03/29/24 18:28 Gabapentin 100 Mg Capsule PO Not Given BID JAZMIN Glucagon 1 mg 03/25/24 13:22 Glucagon For Inj 1 Mg Vial IM PRN PRN Hypoglycemia Protocol Glucose 15 gm 03/25/24 13:22 Glucose Oral Gel 15 Gm Of Glucse In 37.5 Gm Tube PO PRN PRN Hypoglycemia Protocol Guaifenesin 1,200 mg 03/27/24 21:00 03/29/24 21:59 Guaifenesin 12 Hr 600 Mg Tabcr PO 1,200 mg Q12HR JAZMIN Administration Dextrose 1,000 mls @ 100 mls/hr 03/25/24 13:22 Dextrose 5% 1,000 Ml IVPB PRN PRN Hypoglycemia Protocol Albumin Human 50 mls @ 999 mls/hr 03/27/24 06:00 Albutein IVPB 04/26/24 05:59 Q10M PRN HYPOTENSION Cefepime HCl 1 gm in 50 mls @ 100 mls/hr 03/28/24 18:00 03/29/24 18:57 Maxipime 1 Gm/Ns 50 Ml IVPB Infused DAILY@1800 JAZMIN Infusion Insulin Aspart 3 - 6 units 03/25/24 17:00 03/29/24 18:37 Insulin Aspart (*Bkc) 100 Units/Ml SUB-Q Not Given [facility] Protocol Latanoprost 1 drop 03/25/24 21:00 03/29/24 21:00 Latanoprost 0.005% Op Soln 2.5 Ml Btl EACH EYE 1 drop HS JAZMIN Administration Lidocaine 1 patch 03/26/24 09:00 03/29/24 09:19 Lidocaine 5% Patch TRANSDERM 1 patch DAILY JAZMIN Administration Midodrine 15 mg 03/25/24 17:00 03/29/24 18:28 Midodrine Hcl 2.5 Mg Tablet PO 15 mg TIDWM JAZMIN Administration Montelukast Sodium 10 mg 03/25/24 21:00 03/29/24 21:59 Montelukast Sodium 10 Mg Tablet PO 10 mg HS JAZMIN Administration Ondansetron HCl 4 mg 03/29/24 11:22 03/29/24 11:37 Ondansetron Inj 4 Mg/2 Ml Vial IV PUSH 4 mg Q6H PRN Administration Nausea And Vomiting Oxycodone HCl 5 mg 03/25/24 13:28 03/29/24 04:43 Oxycodone Hcl (*Crx) 5 Mg Tab Ir PO 5 mg Q6H PRN Administration Pain Rated 4-10 Pantoprazole Sodium 40 mg 03/25/24 17:00 03/29/24 18:28 Pantoprazole 40 Mg Tablet PO 40 mg BID JAZMIN Administration Perflutren Lipid Microsphere 0 ml 03/29/24 12:42 Perflutren Lipid Microspheres 1.5 Ml Vial Diluted To 10 Ml Total Volume IV PUSH 04/01/24 12:43 ONCE PRN adequate visualization Protocol Tizanidine HCl 2 mg 03/25/24 13:28 03/29/24 04:44 Tizanidine Hcl 2 Mg Tablet PO 2 mg TID PRN Administration Muscle Spasm Vitamin B Complex/Folic Acid 1 cap 03/26/24 09:00 03/29/24 09:23 Vitamin B Cmplx/Vit C/Folic Ac 1 Capsule PO 1 cap QAM JAZMIN Administration Vitamin D 3,000 units 03/26/24 09:00 03/29/24 09:23 Cholecalciferol 1,000 Units Tablet PO 3,000 units DAILY JAZMIN Administration Radiology Results: ITS Impressions Chest CT 03/25/24 10:53 IMPRESSION: 1. Scattered chronic interstitial lung disease in both lungs which include multiple tiny calcified nodules consistent with either sequela of old granulomatous disease or potentially dystrophic calcification related to renal osteodystrophy. 2. Cardiomegaly. 3. Small sliding-type hiatal hernia. 4. Nephrolithiasis versus atherosclerotic calcifications at the visualized portion of the upper pole the right kidney. Thoracic Spine X-Ray 03/25/24 14:10 IMPRESSION: No acute fracture or traumatic malalignment detected in the thoracic spine. Chest X-Ray 03/29/24 13:54 IMPRESSION: 1. Stable diffuse lung disease, consistent with chronic interstitial lung disease and mild atelectasis. 2. Cardiomegaly. Labs Labs: Laboratory Results - last 24 hr 03/29/24 03/29/24 03/29/24 07:36 07:38 08:16 WBC 10.0 RBC 3.08 L Hgb 8.5 L Hct 28.4 L MCV 92.2 MCH 27.6 MCHC 29.9 L RDW 16.1 H Plt Count 286 MPV 10.2 Immature Gran % (Auto) 1.6 H Neut % (Auto) 58.8 Lymph % (Auto) 28.1 Jewell % (Auto) 9.7 H Eos % (Auto) 1.6 Baso % (Auto) 0.2 Lymph # (Auto) 2.80 Jewell # (Auto) 1.0 H Eos # (Auto) 0.2 Baso # (Auto) 0.0 Abs Immat Gran (auto) 0.16 H Absolute Neuts (auto) 5.9 Absolute Nucleated RBC 0.050 H Nucleated RBC % 0.5 H Platelet Estimate Adequate Hypochromasia 1+ Anisocytosis 1+ Schistocytes None seen Puncture Site ABG pH ABG pCO2 ABG pO2 ABG PO2/FiO2 Ratio ABG HCO3 ABG O2 Saturation ABG O2 Content ABG Base Excess A-a Gradient Oxyhemoglobin Total Hemoglobin O2 Delivery Device O2 Liters/Min FiO2 Sodium 141 Potassium 4.4 Chloride 100 Carbon Dioxide 28 Anion Gap 13 H BUN 52 H D Creatinine 9.30 H Estim Creat Clear Calc 5 Estimated GFR 5 L Glucose 88 POC Capillary Glucose 90 Calcium 9.1 Total Bilirubin 1.1 AST 22 ALT 11 Alkaline Phosphatase 78 NT-Pro-B Natriuret Pep > 86162 H Total Protein 7.0 Albumin 4.0 Procalcitonin 2.6 Influenza A (RT-PCR) Influenza B (RT-PCR) RSV (RT-PCR) SARS-CoV-2 RNA (RT-PCR) 03/29/24 03/29/24 03/29/24 11:45 11:50 13:06 WBC RBC Hgb Hct MCV MCH MCHC RDW Plt Count MPV Immature Gran % (Auto) Neut % (Auto) Lymph % (Auto) Jewell % (Auto) Eos % (Auto) Baso % (Auto) Lymph # (Auto) Jewell # (Auto) Eos # (Auto) Baso # (Auto) Abs Immat Gran (auto) Absolute Neuts (auto) Absolute Nucleated RBC Nucleated RBC % Platelet Estimate Hypochromasia Anisocytosis Schistocytes Puncture Site Right brachial ABG pH 7.375 ABG pCO2 41.5 ABG pO2 76.3 L ABG PO2/FiO2 Ratio 3.63 ABG HCO3 23.7 ABG O2 Saturation 95.0 ABG O2 Content 12.6 L ABG Base Excess -1.4 A-a Gradient 23.7 Oxyhemoglobin 93.5 Total Hemoglobin 9.5 L O2 Delivery Device Not Reportable O2 Liters/Min Not Reportable FiO2 21 Sodium Potassium Chloride Carbon Dioxide Anion Gap BUN Creatinine Estim Creat Clear Calc Estimated GFR Glucose POC Capillary Glucose 127 H Calcium Total Bilirubin AST ALT Alkaline Phosphatase NT-Pro-B Natriuret Pep Total Protein Albumin Procalcitonin Influenza A (RT-PCR) Negative Influenza B (RT-PCR) Negative RSV (RT-PCR) Negative SARS-CoV-2 RNA (RT-PCR) Negative 03/29/24 03/29/24 03/30/24 18:36 20:04 05:53 WBC 9.1 RBC 3.32 L Hgb 9.1 L Hct 31.1 L MCV 93.7 MCH 27.4 MCHC 29.3 L RDW 16.2 H Plt Count 286 MPV 9.9 Immature Gran % (Auto) 2.0 H Neut % (Auto) 58.3 Lymph % (Auto) 25.1 Jewell % (Auto) 10.4 H Eos % (Auto) 3.9 Baso % (Auto) 0.3 Lymph # (Auto) 2.29 Jewell # (Auto) 1.0 H Eos # (Auto) 0.4 H Baso # (Auto) 0.0 Abs Immat Gran (auto) 0.18 H Absolute Neuts (auto) 5.3 Absolute Nucleated RBC 0.070 H Nucleated RBC % 0.8 H Platelet Estimate Adequate Hypochromasia 1+ Anisocytosis 1+ Schistocytes None seen Puncture Site ABG pH ABG pCO2 ABG pO2 ABG PO2/FiO2 Ratio ABG HCO3 ABG O2 Saturation ABG O2 Content ABG Base Excess A-a Gradient Oxyhemoglobin Total Hemoglobin O2 Delivery Device O2 Liters/Min FiO2 Sodium 139 Potassium 4.3 Chloride 102 Carbon Dioxide 25 Anion Gap 12 BUN 26 H D Creatinine 6.06 H Estim Creat Clear Calc 8 Estimated GFR 8 L Glucose 81 POC Capillary Glucose 75 100 Calcium 8.8 Total Bilirubin 1.0 AST 21 ALT 10 Alkaline Phosphatase 82 NT-Pro-B Natriuret Pep Total Protein 7.0 Albumin 3.9 Procalcitonin Influenza A (RT-PCR) Influenza B (RT-PCR) RSV (RT-PCR) SARS-CoV-2 RNA (RT-PCR) 03/30/24 07:38 WBC RBC Hgb Hct MCV MCH MCHC RDW Plt Count MPV Immature Gran % (Auto) Neut % (Auto) Lymph % (Auto) Jewell % (Auto) Eos % (Auto) Baso % (Auto) Lymph # (Auto) Jewell # (Auto) Eos # (Auto) Baso # (Auto) Abs Immat Gran (auto) Absolute Neuts (auto) Absolute Nucleated RBC Nucleated RBC % Platelet Estimate Hypochromasia Anisocytosis Schistocytes Puncture Site ABG pH ABG pCO2 ABG pO2 ABG PO2/FiO2 Ratio ABG HCO3 ABG O2 Saturation ABG O2 Content ABG Base Excess A-a Gradient Oxyhemoglobin Total Hemoglobin O2 Delivery Device O2 Liters/Min FiO2 Sodium Potassium Chloride Carbon Dioxide Anion Gap BUN Creatinine Estim Creat Clear Calc Estimated GFR Glucose POC Capillary Glucose 83 Calcium Total Bilirubin AST ALT Alkaline Phosphatase NT-Pro-B Natriuret Pep Total Protein Albumin Procalcitonin Influenza A (RT-PCR) Influenza B (RT-PCR) RSV (RT-PCR) SARS-CoV-2 RNA (RT-PCR) Quality VTE Prophylaxis VTE prophylaxis: pharmacologic ordered
[2024-03-30] MEDS: ACETAMINOPHEN 500 MG TABLET PO (09:53)
[2024-03-30] MEDS: CLOPIDOGREL BISULFATE 75 MG TABLET PO (09:53)
[2024-03-30] MEDS: CHOLECALCIFEROL 1,000 UNITS TABLET 3000 UNITS PO (09:53)
[2024-03-30] MEDS: CALCIUM ACETATE 667 MG TABLET PO ×2 (09:53→16:48)
[2024-03-30] MEDS: MIDODRINE HCL 2.5 MG TABLET 15 MG PO ×2 (09:53→16:48)
[2024-03-30] MEDS: guaiFENesin 12 HR 600 MG TABCR 1200 MG PO ×2 (09:53→20:41)
[2024-03-30] MEDS: DOXYCYCLINE HYCLATE 100 MG TABLET PO ×2 (09:54→20:41)
[2024-03-30] MEDS: PANTOPRAZOLE 40 MG TABLET PO ×2 (09:54→16:48)
[2024-03-30] MEDS: GABAPENTIN 100 MG CAPSULE 200 MG PO ×2 (09:54→16:48)
[2024-03-30] MEDS: ASPIRIN 81 MG ENTERIC TABLET PO (09:54)
[2024-03-30] MEDS: VITAMIN B CMPLX/VIT C/FOLIC AC 1 CAPSULE 1 CAP PO (09:54)
[2024-03-30] MEDS: FLUTICASONE PROPIONATE 0.05% NA SPR 16 GM BTL (*BKC) 2 SPRAY NASAL (09:57)
[2024-03-30] MEDS: LIDOCAINE 5% PATCH 1 PATCH TRANSDERM (10:01)
[2024-03-30] MEDS: FLUoxetine HCL 10 MG CAPSULE PO (10:01)
[2024-03-30 11:36] LABS: Glucose Point of Care 161 mg/dl (65-105)
[2024-03-30] MEDS: ALBUMIN HUMAN 25% 12.5 GM/50ML 50 ML IVPB ×2 (12:00→13:45)
--- NOTE | 2024-03-30 12:10 | P.PNNP_ITS ---
Progress Note: A&P Assessment and Plan (1) End stage renal disease: Code(s): N18.6 - End stage renal disease Status: Chronic Assessment and Plan: * HD yesterday * continue Monday/Monday/Monday dialysis schedule while in [place] * follow electrolytes, volume status, and clearance (2) Shortness of breath: Code(s): R06.02 - Shortness of breath Status: Acute Assessment and Plan: * as noted on presentation * acute worsening noted 1 week after influenza diagnosis * known history of asthma and reactive airway disease * imaging noted: * CXR: new airspace opacity lateral left lower lung zone which could be due to atelectasis, pneumonia, paracardial fat pad or some combination thereof and cardiomegaly * CT of chest: scattered chronic interstitial lung disease in both lungs which include multiple tiny calcified nodules consistent with either sequela of old granulomatous disease or potentially dystrophic calcification related to renal osteodystrophy * no fevers or leukocytosis * some clinical improvement with bronchodilators, inhalers, and steroids along with antibiotics; off steroids * blood culture with Enterobacter (1 out of 2) * on antibiotics * Pulmonary recommendations reviewed * DUF session today in an attempt to remove more fluid (but may be limited by her blood pressure) * continue supportive therapy (3) Anemia: Code(s): D64.9 - Anemia, unspecified Status: Chronic Assessment and Plan: * due to ESRD along with acute illness * B12 and folate normal; iron studies c/w anemia of chronic disease * SHERRI with HD * follow trend of H/H (4) Influenza: Code(s): J11.1 - Influenza due to unidentified influenza virus with other respiratory manifestations Status: Acute Assessment and Plan: * diagnosed with influenza 1 week prior to admission and completed a course of Tamiflu * repeat testing negative * continue supportive therapy (5) Obstructive sleep apnea: Code(s): G47.33 - Obstructive sleep apnea (adult) (pediatric) Status: Acute Assessment and Plan: * continue CPAP at night and with naps (6) Type II diabetes mellitus: Code(s): E11.9 - Type 2 diabetes mellitus without complications Status: Acute Assessment and Plan: * noted in the past but now diet controlled * previous hyperglycemia noted with steroid use * glycemic control per hospitalists Will continue to follow. L Subjective Date/time seen: 03/30/24 12:10 Interval history: Follow-up for end stage renal disease on hemodialysis. Tolerated hemodialysis treatment yesterday without any issues or problems; seen by Pulmonary due to worsening shortness of breath despite interventions to date; tolerating dry ultrafiltration at the time of my visit (seen on DUF at 12:00PM) with assumption more fluid removal will help further optimize her respiratory status (although she is concerned about potential cramping with this extra treatment) and her hemodynamics may not tolerated much fluid removal; stable oxygenation without the need for supplemental oxygen at this time. Exam 2 Narrative: General: WD/WN female in NAD Heart: normal S1 and S2; no rub Lungs: clear anteriorly; decreased at the bases Abdomen: soft, nontender, nondistended, positive bowel sounds Extremities: no cyanosis or clubbing; no edema Skin: no nodules Objective Data Vital Signs Vital Signs: Vital Signs Temp Pulse Resp BP Pulse Ox O2 Del Method 03/30/24 07:43 78 18 03/30/24 07:32 94 18 03/30/24 07:32 98 Room Air 03/30/24 06:00 97.2 F L 97 16 103/52 L 96 03/30/24 03:10 84 19 03/29/24 23:25 84 20 98 Autopap 03/29/24 22:00 97.1 F L 87 16 123/85 98 03/29/24 20:52 93 18 03/29/24 20:47 89 18 03/29/24 20:40 94 Room Air 03/29/24 20:00 8 L 2 L 99 Room Air 03/29/24 18:01 98 F 87 20 113/67 99 03/29/24 17:55 83 93/63 L 03/29/24 17:45 98 98/62 L 03/29/24 17:30 86 93/61 L 03/29/24 17:15 86 93/62 L 03/29/24 17:00 85 100/57 L 03/29/24 16:45 88 106/66 03/29/24 16:30 87 97/63 L 03/29/24 16:15 87 92/64 L 03/29/24 16:00 89 99/60 L 03/29/24 15:45 86 100/58 L 03/29/24 15:30 82 109/63 03/29/24 15:15 82 111/66 03/29/24 15:00 80 118/64 03/29/24 14:45 79 124/70 03/29/24 14:38 86 126/75 Intake/Output Intake/Output: Intake & Output 03/27/24 03/28/24 03/29/24 03/30/24 23:59 23:59 23:59 23:59 Intake Total 560 1135 1830 670 Output Total 1534 1999 [facility] [place] [phone] Meds/Results Medications: Active Medications Generic Name Dose Route Start Last Admin Trade Name Freq PRN Reason Stop Dose Admin Acetaminophen 500 mg 03/25/24 13:28 03/30/24 09:53 Acetaminophen 500 Mg Tablet PO 500 mg QID PRN Administration Fever Or Pain 1-3 Albuterol 2 puff 03/25/24 22:34 Albuterol Sulfate (*Sp) Aerosol 1 Puff INHALATION QIDRT PRN Shortness Of Breath Albuterol/Ipratropium 3 ml 03/25/24 14:00 03/30/24 07:28 Ipratropium 0.5 Mg/Albuterol Sulfate 2.5 Mg Ampul.Neb 3 Ml INHALATION 3 ml Q6HRT JAZMIN Administration Artificial Tears 1 drop 03/25/24 13:28 Artificial Tears Ophth Soln 15 Ml Bottle EACH EYE TID PRN Dry Eyes Aspirin 81 mg 03/26/24 09:00 03/30/24 09:54 Aspirin 81 Mg Enteric Tablet PO 81 mg DAILY JAZMIN Administration Atorvastatin Calcium 40 mg 03/25/24 21:00 03/29/24 21:59 Atorvastatin 40 Mg Tablet PO 40 mg HS JAZMIN Administration Bisacodyl 5 mg 03/28/24 22:02 03/28/24 22:28 Bisacodyl 5 Mg Tablet Ec PO 5 mg QAM PRN Administration Constipation Budesonide 0.5 mg 03/29/24 20:00 03/30/24 07:28 Budesonide Respule Neb 0.5 Mg/2 Ml Amp INHALATION 0.5 mg Q12HRT JAZMIN Administration Calcium Acetate 667 mg 03/25/24 17:00 03/30/24 09:53 Calcium Acetate 667 Mg Tablet PO 667 mg BIDWM JAZMIN Administration Cinacalcet 60 mg 03/27/24 09:00 03/29/24 09:32 Cinacalcet 30 Mg Tablet PO 60 mg [id number] JAZMIN Administration Clopidogrel Bisulfate 75 mg 03/30/24 09:00 03/30/24 09:53 Clopidogrel Bisulfate 75 Mg Tablet PO 75 mg DAILY JAZMIN Administration Dextrose 12.5 gm 03/25/24 13:22 Dextrose 50% 25 Gm/50 Ml Syringe IV PUSH PRN PRN Hypoglycemia Protocol Digoxin 125 mcg 03/28/24 09:00 03/28/24 08:44 Digoxin Tab 125 Mcg Tablet PO 125 mcg SuTh@0900 JAZMIN Administration Doxycycline Hyclate 100 mg 03/26/24 13:55 03/30/24 09:54 Doxycycline Hyclate 100 Mg Tablet PO 03/30/24 21:01 100 mg Q12HR JAZMIN Administration Epoetin Daniele-epbx 10,000 units 03/30/24 18:18 Epoetin Daniele-Epbx 10,000 Units/Ml Vial IV PUSH 03/30/24 18:19 ONCE ONE Fluoxetine HCl 10 mg 03/26/24 09:00 03/30/24 10:01 Fluoxetine Hcl 10 Mg Capsule PO 10 mg DAILY JAZMIN Administration Fluticasone Propionate 2 spray 03/26/24 09:00 03/30/24 09:57 Fluticasone Propionate 0.05% Na Spr 16 Gm Btl (*Bkc) NASAL 2 spray DAILY JAZMIN Administration Gabapentin 200 mg 03/25/24 17:00 03/30/24 09:54 Gabapentin 100 Mg Capsule PO 200 mg BID JAZMIN Administration Glucagon 1 mg 03/25/24 13:22 Glucagon For Inj 1 Mg Vial IM PRN PRN Hypoglycemia Protocol Glucose 15 gm 03/25/24 13:22 Glucose Oral Gel 15 Gm Of Glucse In 37.5 Gm Tube PO PRN PRN Hypoglycemia Protocol Guaifenesin 1,200 mg 03/27/24 21:00 03/30/24 09:53 Guaifenesin 12 Hr 600 Mg Tabcr PO 1,200 mg Q12HR JAZMIN Administration Dextrose 1,000 mls @ 100 mls/hr 03/25/24 13:22 Dextrose 5% 1,000 Ml IVPB PRN PRN Hypoglycemia Protocol Albumin Human 50 mls @ 999 mls/hr 03/27/24 06:00 Albutein IVPB 04/26/24 05:59 Q10M PRN HYPOTENSION Cefepime HCl 1 gm in 50 mls @ 100 mls/hr 03/28/24 18:00 03/29/24 18:57 Maxipime 1 Gm/Ns 50 Ml IVPB Infused DAILY@1800 JAZMIN Infusion Insulin Aspart 3 - 6 units 03/25/24 17:00 03/30/24 09:58 Insulin Aspart (*Bkc) 100 Units/Ml SUB-Q Not Given TIDWM [facility] Protocol Latanoprost 1 drop 03/25/24 21:00 03/29/24 21:00 Latanoprost 0.005% Op Soln 2.5 Ml Btl EACH EYE 1 drop HS JAZMIN Administration Lidocaine 1 patch 03/26/24 09:00 03/30/24 10:01 Lidocaine 5% Patch TRANSDERM 1 patch DAILY JAZMIN Administration Midodrine 15 mg 03/25/24 17:00 03/30/24 09:53 Midodrine Hcl 2.5 Mg Tablet PO 15 mg TIDWM JAZMIN Administration Montelukast Sodium 10 mg 03/25/24 21:00 03/29/24 21:59 Montelukast Sodium 10 Mg Tablet PO 10 mg HS JAZMIN Administration Ondansetron HCl 4 mg 03/29/24 11:22 03/29/24 11:37 Ondansetron Inj 4 Mg/2 Ml Vial IV PUSH 4 mg Q6H PRN Administration Nausea And Vomiting Oxycodone HCl 5 mg 03/25/24 13:28 03/29/24 04:43 Oxycodone Hcl (*Crx) 5 Mg Tab Ir PO 5 mg Q6H PRN Administration Pain Rated 4-10 Pantoprazole Sodium 40 mg 03/25/24 17:00 03/30/24 09:54 Pantoprazole 40 Mg Tablet PO 40 mg BID JAZMIN Administration Perflutren Lipid Microsphere 0 ml 03/29/24 12:42 Perflutren Lipid Microspheres 1.5 Ml Vial Diluted To 10 Ml Total Volume IV PUSH 04/01/24 12:43 ONCE PRN adequate visualization Protocol Tizanidine HCl 2 mg 03/25/24 13:28 03/29/24 04:44 Tizanidine Hcl 2 Mg Tablet PO 2 mg TID PRN Administration Muscle Spasm Vitamin B Complex/Folic Acid 1 cap 03/26/24 09:00 03/30/24 09:54 Vitamin B Cmplx/Vit C/Folic Ac 1 Capsule PO 1 cap QAM JAZMIN Administration Vitamin D 3,000 units 03/26/24 09:00 03/30/24 09:53 Cholecalciferol 1,000 Units Tablet PO 3,000 units DAILY JAZMIN Administration Radiology Results: ITS Impressions Chest CT 03/25/24 10:53 IMPRESSION: 1. Scattered chronic interstitial lung disease in both lungs which include multiple tiny calcified nodules consistent with either sequela of old granulomatous disease or potentially dystrophic calcification related to renal osteodystrophy. 2. Cardiomegaly. 3. Small sliding-type hiatal hernia. 4. Nephrolithiasis versus atherosclerotic calcifications at the visualized portion of the upper pole the right kidney. Thoracic Spine X-Ray 03/25/24 14:10 IMPRESSION: No acute fracture or traumatic malalignment detected in the thoracic spine. Chest X-Ray 03/29/24 13:54 IMPRESSION: 1. Stable diffuse lung disease, consistent with chronic interstitial lung disease and mild atelectasis. 2. Cardiomegaly. Labs Labs: Laboratory Tests 03/30/24 05:53 03/30/24 05:53 Calcium 8.8 Total Bilirubin 1.0 AST 21 ALT 10 Alkaline Phosphatase 82 Total Protein 7.0 Albumin 3.9
--- NOTE | 2024-03-30 12:43 | ECHO_ITS ---
Patient Info Name: Donya Tobin Age: 68 years : 1955 Gender: Female Ht: 63 in Wt: 157 lbs BSA: 1.80 m2 HR: 97 bpm BP: 103 / 52 mmHg Technical Quality: Excellent Exam Date: 03/30/2024 8:05 AM Exam Location: Echo Lab Exam Room: [facility] Patient Status: Inpatient Admit Date: 03/26/2024 Staff Ordering Physician: Thuan García MD [employer] Flap Trimmer: Tara Armenta RDCS Attending Provider: Joselyn Pandey PA-C Referring Physician: Ricky RUTHERFORD; Exam Type: CA echo doppler color flow Study Info Indications - SOB Complete two-dimensional, color flow and Doppler transthoracic echocardiogram is performed. Summary 1. Complete two-dimensional, color flow and Doppler transthoracic echocardiogram is performed. 2. Left ventricular chamber dimension is severely enlarged. 3. Left ventricular systolic function is severely reduced, estimated at 25-30%. 4. Ventricular septum is sigmoid shaped. No resting LVOT obstruction. 5. The left ventricular diastolic function is abnormal. 6. E/e' 26 is elevated. 7. Left atrial chamber dimension is severely enlarged. 8. There is mild aortic valve sclerosis. 9. The mitral valve has mildly calcified annulus. 10. There is moderate to severe mitral valve regurgitation. 11. There is mild tricuspid valve regurgitation. 12. Mild pulmonary hypertension, estimated pulmonary arterial systolic pressure is 47 mmHg. 13. There is trace pulmonic regurgitation. Left Ventricle E/e' 26 is elevated. Ventricular septum is sigmoid shaped. No resting LVOT obstruction. Left ventricular chamber dimension is severely enlarged. Left ventricular systolic function is severely reduced, estimated at 25-30%. The left ventricular diastolic function is abnormal. Right Ventricle Right ventricular systolic function is normal and with normal TAPSE 1.8 cm. Right ventricular chamber dimension is normal. Left Atria Left atrial chamber dimension is severely enlarged. Right Atria Right atrial chamber dimension is normal. Aortic Valve The aortic valve is trileaflet. There is mild aortic valve sclerosis. There is no aortic valve stenosis. There is no aortic valve regurgitation. Pulmonic Valve There is trace pulmonic regurgitation. Mitral Valve The mitral valve has mildly calcified annulus. There is no mitral valve stenosis. There is moderate to severe mitral valve regurgitation. Tricuspid Valve There is mild tricuspid valve regurgitation. Mild pulmonary hypertension, estimated pulmonary arterial systolic pressure is 47 mmHg. Pericardium/Pleural There is no pericardial effusion. Inferior Vena Cava Normal inferior vena cava with >50% collapse upon inspiration consistent with normal right atrial pressure, 5 mmHg. Aorta The aortic root size at the sinus of Valsalva is normal. Left Ventricular Outflow Tract Name Value Normal LVOT 2D LVOT Diameter 2.4 cm LVOT Doppler LVOT Peak Gradient 6 mmHg LVOT Mean Gradient 3 mmHg LVOT VTI 19 cm LVOT VTI/AV VTI Ratio 0.6 LVOT Stroke Volume 84 ml LVOT CO 8.2 l/min LVOT CI 4.5 l/min/m2 Pulmonic Valve Name Value Normal PV Doppler PV Peak Gradient 3 mmHg PV Regurgitation Doppler NH Peak End Diastolic Velocity 87 cm/s Mitral Valve Name Value Normal MV Doppler MV Peak Gradient 7 mmHg MV Mean Gradient 2 mmHg MV Decel Dawes 811 cm/s2 MV PHT 39 ms MV Area (PHT) 5.7 cm2 4.0-5.0 MV Area (Cont Eq VTI) 3.0 cm2 MV Regurgitation Doppler MR Peak Gradient 156 mmHg MV Diastolic Function MV E Peak Velocity 108 cm/s MV A Peak Velocity 85 cm/s MV E/A 1.3 MV Decel Time 133 ms MV Annular TDI MV E/e' (Septal) 23.5 <=8.0 MV E/e' (Lateral) 32.6 <=8.0 MV E/e' (Average) 28.1 Tricuspid Valve Name Value Normal TV Regurgitation Doppler TR Peak Velocity 325 cm/s TR Peak Gradient 42 mmHg Estimated PAP/RSVP RA Pressure 5 mmHg <=5 PA Systolic Pressure 47 mmHg <36 RV Systolic Pressure 47 mmHg <36 Aorta Name Value Normal Ascending Aorta Ao Root Diameter (MM) 3.2 cm Ao Root Diam Index (MM) 1.8 cm/m2 Aortic Valve Name Value Normal AV Doppler AV Peak Velocity 184 cm/s AV Peak Gradient 12 mmHg AV Mean Gradient 7 mmHg AV VTI 34 cm AV Area (Cont Eq VTI) 2.4 cm2 >=3.0 AV Area (Cont Eq Kobi) 2.9 cm2 AV Regurgitation 2D LVOT Area 4.3 cm2 Ventricles Name Value Normal LV Dimensions 2D/MM IVS Diastolic Thickness (2D) 0.9 cm 0.6-1.0 LVID Diastole (2D) 6.5 cm 3.8-5.2 LVID Diastole (MM) 7.0 cm 3.8-5.2 LVIW Diastolic Thickness (2D) 0.9 cm 0.6-0.9 LVID Systole (2D) 5.5 cm 2.2-3.5 LVID Systole (MM) 5.7 cm 2.2-3.5 LVOT Diameter 2.4 cm LV Mass (2D Cubed) 249.36 g 67.00-162.00 LV Mass Index (2D Cubed) 139 g/m2 43-95 Relative Wall Thickness (2D) 0.29 LV Fractional Shortening/Ejection Fraction 2D/MM LV Fractional Shortening (2D) 17 % 27-45 LV Fractional Shortening (MM) 19 % 27-45 LV EF (MM Teicholz) 37 % 54-74 LV EF (2D Teicholz) 34 % 54-74 LV Diastolic Volume (4C MOD) 156 ml LV EF (4C MOD) 20 % LV Diastolic Volume (2C MOD) 189 ml LV EF (2C MOD) 36 % LV Diastolic Volume (BP MOD) 172 ml 46-106 LV Diastolic Volume Index (BP MOD) 96 ml/m2 29-61 LV Systolic Volume (BP MOD) 123 ml 14-42 LV Systolic Volume Index (BP MOD) 68 ml/m2 8-24 LV EF (BP MOD) 28 % 54-74 LV Diastolic Length (4C) 8.6 cm LV Systolic Length (4C) 7.5 cm LV Stroke Volume (4C MOD) 33 ml LV CO (BP MOD) 3.9 l/min LV CI (BP MOD) 2.2 l/min/m2 Atria Name Value Normal LA Dimensions LA Volume (4C A-L) 94 ml LA Volume (BP A-L) 92 ml RA Dimensions RA Area (4C) 13.4 cm2 <=18.0 Report Signatures
[2024-03-30] MEDS: EPOETIN ALFA-EPBX 10,000 UNITS/ML VIAL 10000 UNITS IV PUSH (14:32)
[2024-03-30] MEDS: GLUCOSE ORAL GEL 15 GM OF GLUCSE IN 37.5 GM TUBE PO (16:45)
[2024-03-30 17:24] LABS: Glucose Point of Care 68 mg/dl (65-105)
[2024-03-30 17:26] LABS: Glucose Point of Care 153 mg/dl (65-105)
[2024-03-30] MEDS: CEFEPIME 1 GM/NS 50 ML 1 GM/50 ML BAG IVPB (18:15)
[2024-03-30] MEDS: LATANOPROST 0.005% OP SOLN 2.5 ML BTL 1 DROP EACH EYE (20:41)
[2024-03-30] MEDS: MONTELUKAST SODIUM 10 MG TABLET PO (20:41)
[2024-03-30] MEDS: ATORVASTATIN 40 MG TABLET PO (20:41)
[2024-03-30 21:11] LABS: Glucose Point of Care 111 mg/dl (65-105)
[2024-03-31] VITALS (13 sets, daily range): BP systolic 124–136; BP diastolic 54–77; PULSE 75–94; RESP 14–24; TEMP 36.2–36.6; O2SAT 94–100
[2024-03-31] MEDS: IPRATROPIUM 0.5 MG/ALBUTEROL SULFATE 2.5 MG AMPUL.NEB 3 ML INHALATION ×4 (01:16→19:44)
[2024-03-31 06:31] LABS: Basophils Absolute Auto 0.1 K/mm3 (0.0-0.1); Basophils Percent Auto 0.6 % (0.2-1.2); Eosinophils Absolute Auto 0.6 K/mm3 (0-0.3); Hemoglobin 9.2 g/dL (12.0-15.0); Immature Granulocyte Absolute 0.28 K/mm3 (0.00-0.031); Immature Granulocyte Percent A 2.7 % (0-0.5); Lymphocytes Absolute Auto 2.35 K/mm3 (0.9-3.2); Lymphocytes Percent Auto 22.4 % (18.3-44.2); Mean Corpuscular HGB Conc 27.9 g/dl (32-36); Mean Corpuscular Hemoglobin 27.4 pg (26-34); Mean Corpuscular Volume 98.2 fl (80-100); Mean Platelet Volume 10.2 fl (7.4-10.4); Monocytes Absolute Auto 1.1 K/mm3 (0.1-0.6); Monocytes Percent Auto 10.8 % (2.6-8.5); Neutrophils Percent Auto 57.5 % (45.5-73.1); Nucleated Red Blood Cells Perc 0.7 % (0.0-0.2); Platelet Count Result 300 k/mm3 (150-375); Red Blood Count 3.36 M/mm3 (4.2-5.4); Red Cell Distribution Width 17.3 % (11.5-14.5); White Blood Count 10.5 K/mm3 (4.5-10.0)
[2024-03-31 06:43] LABS: Alanine Aminotransferase 9 U/L (6-35); Albumin Level 4.3 g/dL (3.5-5.1); Alkaline Phosphatase 82 U/L (38-126); Anion Gap 18 mmol/L (4-12); Aspartate Amino Transferase 19 U/L (14-36); Bilirubin,Total 1.4 mg/dL (0.2-1.3); Blood Urea Nitrogen 41 mg/dL (7-17); Calcium 8.7 mg/dL (8.4-10.2); Carbon Dioxide 20 mmol/L (22-30); Chloride 102 mmol/L (98-107); Estimated CRCL calculation 5 ml/min; Estimated Glomerular Filt Rate 6; Glucose 86 mg/dL (65-110); Potassium 4.2 mmol/L (3.4-5.0); Sodium 140 mmol/L (137-145)
[2024-03-31 07:23] LABS: Platelet Estimate Adequate (Adequate)
[2024-03-31 07:24] LABS: Anisocytosis 1+; Burr Cells 1+; Hypochromasia 1+; Ovalocytes 1+; Schistocytes None Seen
[2024-03-31 07:46] LABS: Glucose Point of Care 87 mg/dl (65-105)
--- NOTE | 2024-03-31 08:27 | PM.IMPN ---
Progress Note: A&P Assessment and Plan (1) Shortness of breath: Code(s): R06.02 - Shortness of breath Status: Acute Assessment and Plan: Patient presents with worsening SOB 1 week after being diagnosed with influenza. CT chest showing what appears to be more chronic findings. WBC normal and no fevers. She is having pleuritic chest pain and scant hemopytsis but sputum o/w clear. Consider PE but no evidence of DVT, tachycardia or hypoxia. And another diagnosis more likely. She denies that she has COPD but does have asthma; suspect she is having more of an asthma exacerbation Possible fluid overload however she just had HD. BNP probably chronically elevated. CXR: 1. New airspace opacity lateral left lower lung zone which could be due to atelectasis, pneumonia, paracardial fat pad or some combination thereof. 2. Cardiomegaly. Chest CT: 1. Scattered chronic interstitial lung disease in both lungs which include multiple tiny calcified nodules consistent with either sequela of old granulomatous disease or potentially dystrophic calcification related to renal osteodystrophy. 2. Cardiomegaly. 3. Small sliding-type hiatal hernia. 4. Nephrolithiasis versus atherosclerotic calcifications at the visualized portion of the upper pole the right kidney. Repeat CXR: 1. Stable diffuse lung disease, consistent with chronic interstitial lung disease and mild atelectasis. 2. Cardiomegaly. - Echo LVEF 25-30% with mild pulmonary hypertension - MRSA nasal swab negative. - BCx returned positive with Enterobacter cloacae (other set Negative) - Repeat BCx: NGTD - Antibiotics: Rocephin transitioned to cefepime base on cultures. Doxycycline course completed. - Started bronchodilators and steroids. - Continue Pep therapy and IS - Vest CPT - Monitor vital signs, I&Os, neuro status and patient is a fall risk - Follow WBC, serum electrolytes, temperature curves and cultures - Pulmonology consulted, appreciate recommendations Patient currently has Jl-Fuentes respirations suggestive of chf and fluid overload Continue 2 more days of doxycycline for total of 7 days. Continue combination ceftriaxone and cefepime for total of 7 days although she will likely need cefepime longer given her Enterobacter cloaca a bacteremia. Repeat blood cultures: NGTD (2) Asthma: Code(s): J45.909 - Unspecified asthma, uncomplicated Status: Acute Assessment and Plan: Chronic asthma. Followed by Dr. Tobin, pneumatic tube operator. Wheezing has resolved. - Pulmonology consulted, appreciate recommendations DuoNebs q6 Budesonide 500 mcg BID (3) Influenza: Code(s): J11.1 - Influenza due to unidentified influenza virus with other respiratory manifestations Status: Acute Assessment and Plan: Patient diagnosed with influenza and completed a course of Tamiflu Repeat testing negative. Hold off on repeat treatment since stable and testing negative now Follow (4) Combined systolic and diastolic congestive heart failure: Code(s): I50.40 - Unspecified combined systolic (congestive) and diastolic (congestive) heart failure Status: Acute Assessment and Plan: - Dialysis MWF, not on any GDMT medications. Follows Dr. Ann. - BNP: > [id number] likely chronically elevated - See chest XR and CTA above in #1 - Echo: LVEF 25-30% with mild pulmonary hypertension Echo 05/11/22: LVEF 30-35%. Patient states previous EF 50%. - Monitor vital signs, I&Os, BUN/creatinine, daily weights, neuro status and patient is a fall risk - Monitor serum electrolytes, Keep serum Potassium>4 and serum Magnesium>2 and CBC - Cardiology consulted, appreciate recommendations (5) End-stage renal disease on hemodialysis: Onset Date: 09/2009 Code(s): N18.6 - End stage renal disease; Z99.2 - Dependence on renal dialysis Status: Acute Assessment and Plan: Patient on dialysis M-W-. Nephrology consult for dialysis treatment plan. (6) Chronic anemia: Code(s): D64.9 - Anemia, unspecified Status: Chronic Assessment and Plan: Patient with chronic anemia. Hgb last year was in the 8-11 range. Hgb 7.9 on admission and 8.9 on repeat. H/H 9.2/33.0 on am labs B12 and folate normal. Iron studies c/w anemia of chronic disease probably from ESRD. Follow (7) Obstructive sleep apnea: Code(s): G47.33 - Obstructive sleep apnea (adult) (pediatric) Status: Acute Assessment and Plan: Patient with LENORA, states she intermittently wears her auto pap overnight but has not been wearing it recently. She did not receive her CPAP overnight. Call made to Respiratory therapy for CPAP at night and with naps as she tolerates Pulmonology called [facility] and the patient is on auto PAP 5-16. They have no data since August of 2022 so either she is noncompliant or her data transfer is not working. Start auto pap at 5-16. (8) Back pain: Code(s): M54.9 - Dorsalgia, unspecified Status: Acute Assessment and Plan: Patient with mid thoracic palpable back pain. No trauma. Xray showing no fractures. Continue Lidocaine patch (9) Type II diabetes mellitus: Code(s): E11.9 - Type 2 diabetes mellitus without complications Status: Acute Assessment and Plan: Patient has DM in the past requiring sliding scale insulin but not requiring treatment now. A1c 4.7%. She has peripheral neuropathy and takes Gabapentin for this. Continue sliding scale with hypoglycemia protocol. Plan DVT prophylaxis - Heparin Code status - full Debility - PT/OT Time Spent With Patient Time with patient: 25 - 35 minutes Subjective Date/time seen: 03/31/24 08:27 Interval history: 68yo female with ESRD on HD M-W-F, CHF, PAFib s/p Watchman, DM and LENORA here for feeling short of breath and cough. Patient is pleasant sitting up in bed. She states that she is feeling better today and notes that her talking has much improved. He continues to state that her difficulty with speech has been from the congestion which has improved CPT. She also notes that her shortness of breath her cough is improved. She has no other complaints denying chest pain, palpitations, nausea /vomiting, and abdominal pain. Review of Systems Review of Systems: All systems reviewed & are unremarkable except as noted in HPI and below Exam Narrative: AF HR 91 RR 14 SpO2 100 BP 136/77 General: female who is nontoxic appearing, sitting up in chair HEENT: Normocephalic. Atraumatic. Extraocular movement intact. Sclera clear and anicteric. No facial asymmetry. Chest: Lung on auscultation bilaterally with coarse bases. Speak full sentences, talking has improved. No accessory muscle use. No wheezes. CV: Heart was regular rate and rhythm. S1-S2. No murmurs, gallops, or rubs. Abd: Abdomen was soft. Nontender. Nondistended. Positive bowel sounds. No organomegaly or masses. Ext: No clubbing, cyanosis, or edema. 2+ DP pulses bilaterally. Neuro: Patient is alert. Speech is clear. Objective Data Vital Signs Vital Signs: Vital Signs - 24 hr 03/30/24 11:42 03/30/24 11:57 03/30/24 12:00 Temperature 97.5 F L Pulse Rate 81 72 75 Respiratory Rate 17 Blood Pressure 108/69 111/65 100/58 L Pulse Oximetry 100 Oxygen Delivery 03/30/24 12:15 03/30/24 12:30 03/30/24 12:45 Temperature Pulse Rate 75 78 73 Respiratory Rate Blood Pressure 105/69 102/67 110/71 Pulse Oximetry Oxygen Delivery 03/30/24 13:00 03/30/24 13:15 03/30/24 13:30 Temperature Pulse Rate 75 75 78 Respiratory Rate Blood Pressure 100/58 L 105/69 102/67 Pulse Oximetry Oxygen Delivery 03/30/24 13:45 03/30/24 14:00 03/30/24 14:00 Temperature 97.4 F L Pulse Rate 73 79 77 Respiratory Rate 16 Blood Pressure 110/71 121/69 110/68 Pulse Oximetry 100 Oxygen Delivery 03/30/24 14:15 03/30/24 14:30 03/30/24 14:45 Temperature Pulse Rate 77 71 71 Respiratory Rate Blood Pressure 103/71 110/70 101/71 Pulse Oximetry Oxygen Delivery 03/30/24 15:00 03/30/24 15:15 03/30/24 20:00 Temperature 97.7 F Pulse Rate 70 67 Respiratory Rate 17 Blood Pressure 101/59 L 116/69 Pulse Oximetry 100 Oxygen Delivery Room Air 03/30/24 20:06 03/30/24 20:14 03/30/24 21:40 Temperature 97.0 F L Pulse Rate 77 77 87 Respiratory Rate 18 18 16 Blood Pressure 110/75 Pulse Oximetry 100 Oxygen Delivery 03/30/24 23:00 03/30/24 23:00 03/31/24 01:18 Temperature Pulse Rate 80 Respiratory Rate 19 18 Blood Pressure Pulse Oximetry 99 Oxygen Delivery CPAP Autopap 03/31/24 01:30 03/31/24 06:00 Temperature 97.2 F L Pulse Rate 75 Respiratory Rate 24 H 20 Blood Pressure 131/54 L Pulse Oximetry 99 100 Oxygen Delivery Autopap Intake/Output Intake/Output: Intake & Output 03/28/24 03/29/24 03/30/24 03/31/24 23:59 23:59 23:59 23:59 Intake Total 1135 1830 770 550 Output Total 1999 1200 Balance 2437 -170 -430 550 Meds/Results Medications: Active Medications Generic Name Dose Route Start Last Admin Trade Name Freq PRN Reason Stop Dose Admin Acetaminophen 500 mg 03/25/24 13:28 03/30/24 09:53 Acetaminophen 500 Mg Tablet PO 500 mg QID PRN Administration Fever Or Pain 1-3 Albuterol 2 puff 03/25/24 22:34 Albuterol Sulfate (*Sp) Aerosol 1 Puff INHALATION QIDRT PRN Shortness Of Breath Albuterol/Ipratropium 3 ml 03/25/24 14:00 03/31/24 01:16 Ipratropium 0.5 Mg/Albuterol Sulfate 2.5 Mg Ampul.Neb 3 Ml INHALATION 3 ml Q6HRT JAZMIN Administration Artificial Tears 1 drop 03/25/24 13:28 Artificial Tears Ophth Soln 15 Ml Bottle EACH EYE TID PRN Dry Eyes Aspirin 81 mg 03/26/24 09:00 03/30/24 09:54 Aspirin 81 Mg Enteric Tablet PO 81 mg DAILY JAZMIN Administration Atorvastatin Calcium 40 mg 03/25/24 21:00 03/30/24 20:41 Atorvastatin 40 Mg Tablet PO 40 mg HS JAZMIN Administration Bisacodyl 5 mg 03/28/24 22:02 03/28/24 22:28 Bisacodyl 5 Mg Tablet Ec PO 5 mg QAM PRN Administration Constipation Budesonide 0.5 mg 03/29/24 20:00 03/30/24 20:01 Budesonide Respule Neb 0.5 Mg/2 Ml Amp INHALATION 0.5 mg Q12HRT JAZMIN Administration Calcium Acetate 667 mg 03/25/24 17:00 03/30/24 16:48 Calcium Acetate 667 Mg Tablet PO 667 mg BIDWM JAZMIN Administration Cinacalcet 60 mg 03/27/24 09:00 03/29/24 09:32 Cinacalcet 30 Mg Tablet PO 60 mg [id number]@0900 JAZMIN Administration Clopidogrel Bisulfate 75 mg 03/30/24 09:00 03/30/24 09:53 Clopidogrel Bisulfate 75 Mg Tablet PO 75 mg DAILY JAZMIN Administration Dextrose 12.5 gm 03/25/24 13:22 Dextrose 50% 25 Gm/50 Ml Syringe IV PUSH PRN PRN Hypoglycemia Protocol Digoxin 125 mcg 03/28/24 09:00 03/28/24 08:44 Digoxin Tab 125 Mcg Tablet PO 125 mcg SuTh@0900 JAZMIN Administration Fluoxetine HCl 10 mg 03/26/24 09:00 03/30/24 10:01 Fluoxetine Hcl 10 Mg Capsule PO 10 mg DAILY JAZMIN Administration Fluticasone Propionate 2 spray 03/26/24 09:00 03/30/24 09:57 Fluticasone Propionate 0.05% Na Spr 16 Gm Btl (*Bkc) NASAL 2 spray DAILY JAZMIN Administration Gabapentin 200 mg 03/25/24 17:00 03/30/24 16:48 Gabapentin 100 Mg Capsule PO 200 mg BID JAZMIN Administration Glucagon 1 mg 03/25/24 13:22 Glucagon For Inj 1 Mg Vial IM PRN PRN Hypoglycemia Protocol Glucose 15 gm 03/25/24 13:22 03/30/24 16:45 Glucose Oral Gel 15 Gm Of Glucse In 37.5 Gm Tube PO 15 gm PRN PRN Administration Hypoglycemia Protocol Guaifenesin 1,200 mg 03/27/24 21:00 03/30/24 20:41 Guaifenesin 12 Hr 600 Mg Tabcr PO 1,200 mg Q12HR JAZMIN Administration Dextrose 1,000 mls @ 100 mls/hr 03/25/24 13:22 Dextrose 5% 1,000 Ml IVPB PRN PRN Hypoglycemia Protocol Albumin Human 50 mls @ 999 mls/hr 03/27/24 06:00 03/30/24 13:45 Albutein IVPB 04/26/24 05:59 999 mls/hr Q10M PRN Administration HYPOTENSION Cefepime HCl 1 gm in 50 mls @ 100 mls/hr 03/28/24 18:00 03/30/24 18:45 Maxipime 1 Gm/Ns 50 Ml IVPB Infused DAILY@1800 JAZMIN Infusion Insulin Aspart 3 - 6 units 03/25/24 17:00 03/30/24 17:12 Insulin Aspart (*Bkc) 100 Units/Ml SUB-Q Not Given TIDWM [facility] Protocol Latanoprost 1 drop 03/25/24 21:00 03/30/24 20:41 Latanoprost 0.005% Op Soln 2.5 Ml Btl EACH EYE 1 drop HS JAZMIN Administration Lidocaine 1 patch 03/26/24 09:00 03/30/24 10:01 Lidocaine 5% Patch TRANSDERM 1 patch DAILY JAZMIN Administration Midodrine 15 mg 03/25/24 17:00 03/30/24 16:48 Midodrine Hcl 2.5 Mg Tablet PO 15 mg TIDWM JAZMIN Administration Montelukast Sodium 10 mg 03/25/24 21:00 03/30/24 20:41 Montelukast Sodium 10 Mg Tablet PO 10 mg HS JAZMIN Administration Ondansetron HCl 4 mg 03/29/24 11:22 03/29/24 11:37 Ondansetron Inj 4 Mg/2 Ml Vial IV PUSH 4 mg Q6H PRN Administration Nausea And Vomiting Oxycodone HCl 5 mg 03/25/24 13:28 03/29/24 04:43 Oxycodone Hcl (*Crx) 5 Mg Tab Ir PO 5 mg Q6H PRN Administration Pain Rated 4-10 Pantoprazole Sodium 40 mg 03/25/24 17:00 03/30/24 16:48 Pantoprazole 40 Mg Tablet PO 40 mg BID JAZMIN Administration Perflutren Lipid Microsphere 0 ml 03/29/24 12:42 Perflutren Lipid Microspheres 1.5 Ml Vial Diluted To 10 Ml Total Volume IV PUSH 04/01/24 12:43 ONCE PRN adequate visualization Protocol Tizanidine HCl 2 mg 03/25/24 13:28 03/29/24 04:44 Tizanidine Hcl 2 Mg Tablet PO 2 mg TID PRN Administration Muscle Spasm Vitamin B Complex/Folic Acid 1 cap 03/26/24 09:00 03/30/24 09:54 Vitamin B Cmplx/Vit C/Folic Ac 1 Capsule PO 1 cap QAM JAZMIN Administration Vitamin D 3,000 units 03/26/24 09:00 03/30/24 09:53 Cholecalciferol 1,000 Units Tablet PO 3,000 units DAILY JAZMIN Administration Radiology Results: ITS Impressions Chest CT 03/25/24 10:53 IMPRESSION: 1. Scattered chronic interstitial lung disease in both lungs which include multiple tiny calcified nodules consistent with either sequela of old granulomatous disease or potentially dystrophic calcification related to renal osteodystrophy. 2. Cardiomegaly. 3. Small sliding-type hiatal hernia. 4. Nephrolithiasis versus atherosclerotic calcifications at the visualized portion of the upper pole the right kidney. Thoracic Spine X-Ray 03/25/24 14:10 IMPRESSION: No acute fracture or traumatic malalignment detected in the thoracic spine. Chest X-Ray 03/29/24 13:54 IMPRESSION: 1. Stable diffuse lung disease, consistent with chronic interstitial lung disease and mild atelectasis. 2. Cardiomegaly. Labs Labs: Laboratory Results - last 24 hr 03/30/24 03/30/24 03/30/24 11:31 16:24 17:24 WBC RBC Hgb Hct MCV MCH MCHC RDW Plt Count MPV Immature Gran % (Auto) Neut % (Auto) Lymph % (Auto) [place] % (Auto) Eos % (Auto) Baso % (Auto) Lymph # (Auto) [place] # (Auto) Eos # (Auto) Baso # (Auto) Abs Immat Gran (auto) Absolute Neuts (auto) Absolute Nucleated RBC Nucleated RBC % Platelet Estimate Hypochromasia Anisocytosis Ovalocytes [place] Cells Schistocytes Sodium Potassium Chloride Carbon Dioxide Anion Gap BUN Creatinine Estim Creat Clear Calc Estimated GFR Glucose POC Capillary Glucose 161 H 68 153 H Calcium Total Bilirubin AST ALT Alkaline Phosphatase Total Protein Albumin 03/30/24 03/31/24 03/31/24 21:08 05:39 07:44 WBC 10.5 H RBC 3.36 L Hgb 9.2 L Hct 33.0 L MCV 98.2 MCH 27.4 MCHC 27.9 L RDW 17.3 H Plt Count 300 MPV 10.2 Immature Gran % (Auto) 2.7 H Neut % (Auto) 57.5 Lymph % (Auto) 22.4 [place] % (Auto) 10.8 H Eos % (Auto) 6.0 H Baso % (Auto) 0.6 Lymph # (Auto) 2.35 [place] # (Auto) 1.1 H Eos # (Auto) 0.6 H Baso # (Auto) 0.1 Abs Immat Gran (auto) 0.28 H Absolute Neuts (auto) 6.0 Absolute Nucleated RBC 0.070 H Nucleated RBC % 0.7 H Platelet Estimate Adequate Hypochromasia 1+ Anisocytosis 1+ Ovalocytes 1+ [place] Cells 1+ Schistocytes None seen Sodium 140 Potassium 4.2 Chloride 102 Carbon Dioxide 20 L Anion Gap 18 H BUN 41 H D Creatinine 8.37 H Estim Creat Clear Calc 5 Estimated GFR 6 L Glucose 86 POC Capillary Glucose 111 H 87 Calcium 8.7 Total Bilirubin 1.4 H AST 19 ALT 9 Alkaline Phosphatase 82 Total Protein 8.0 Albumin 4.3 Quality VTE Prophylaxis VTE prophylaxis: pharmacologic ordered
[2024-03-31] MEDS: BUDESONIDE RESPULE NEB 0.5 MG/2 ML AMP INHALATION ×2 (09:04→19:44)
[2024-03-31] MEDS: VITAMIN B CMPLX/VIT C/FOLIC AC 1 CAPSULE 1 CAP PO (09:56)
[2024-03-31] MEDS: MIDODRINE HCL 2.5 MG TABLET 15 MG PO ×3 (09:56→16:15)
[2024-03-31] MEDS: PANTOPRAZOLE 40 MG TABLET PO ×2 (09:57→16:15)
[2024-03-31] MEDS: ASPIRIN 81 MG ENTERIC TABLET PO (09:57)
[2024-03-31] MEDS: GABAPENTIN 100 MG CAPSULE 200 MG PO ×2 (09:57→16:14)
[2024-03-31] MEDS: CALCIUM ACETATE 667 MG TABLET PO ×2 (09:57→16:15)
[2024-03-31] MEDS: CLOPIDOGREL BISULFATE 75 MG TABLET PO (09:57)
[2024-03-31] MEDS: CHOLECALCIFEROL 1,000 UNITS TABLET 3000 UNITS PO (09:57)
[2024-03-31] MEDS: FLUTICASONE PROPIONATE 0.05% NA SPR 16 GM BTL (*BKC) 2 SPRAY NASAL (09:58)
[2024-03-31] MEDS: FLUoxetine HCL 10 MG CAPSULE PO (09:58)
[2024-03-31] MEDS: LIDOCAINE 5% PATCH 1 PATCH TRANSDERM (09:58)
[2024-03-31] MEDS: guaiFENesin 12 HR 600 MG TABCR 1200 MG PO ×2 (10:06→20:37)
[2024-03-31] MEDS: DIGOXIN TAB 125 MCG TABLET PO (10:06)
[2024-03-31 12:06] LABS: Glucose Point of Care 126 mg/dl (65-105)
--- NOTE | 2024-03-31 13:22 | P.PNNP_ITS ---
Progress Note: A&P Assessment and Plan (1) End stage renal disease: Code(s): N18.6 - End stage renal disease Status: Chronic Assessment and Plan: * HD tomorrow * continue Monday/Monday/Monday dialysis schedule * follow electrolytes, volume status, and clearance (2) Shortness of breath: Code(s): R06.02 - Shortness of breath Status: Acute Assessment and Plan: * as noted on presentation * acute worsening noted 1 week after influenza diagnosis * known history of asthma and reactive airway disease * imaging noted: * CXR: new airspace opacity lateral left lower lung zone which could be due to atelectasis, pneumonia, paracardial fat pad or some combination thereof and cardiomegaly * CT of chest: scattered chronic interstitial lung disease in both lungs which include multiple tiny calcified nodules consistent with either sequela of old granulomatous disease or potentially dystrophic calcification related to renal osteodystrophy * no fevers or leukocytosis * some clinical improvement with bronchodilators, inhalers, and steroids along with antibiotics; off steroids * blood culture with Enterobacter (1 out of 2) * on antibiotics * Pulmonary recommendations reviewed * s/p DUF session (on 03/30) * continue supportive therapy (3) Combined systolic and diastolic congestive heart failure: Code(s): I50.40 - Unspecified combined systolic (congestive) and diastolic (congestive) heart failure Status: Acute Assessment and Plan: * attempting to maintain euvomeia with fluid removal with HD * recent Echo noted (03/30): * left ventricular systolic function is severely reduced, estimated at 25-30% * left atrial chamber dimension is severely enlarged * mild aortic valve sclerosis. * mitral valve has mildly calcified annulus * moderate to severe mitral valve regurgitation * mild tricuspid valve regurgitation * mild pulmonary hypertension, estimated pulmonary arterial systolic pressure is 47 mmHg * trace pulmonic regurgitation * Cardiology consulted (4) Anemia: Code(s): D64.9 - Anemia, unspecified Status: Chronic Assessment and Plan: * due to ESRD along with acute illness * B12 and folate normal; iron studies c/w anemia of chronic disease * SHERRI with HD * follow trend of H/H (5) Influenza: Code(s): J11.1 - Influenza due to unidentified influenza virus with other respiratory manifestations Status: Acute Assessment and Plan: * diagnosed with influenza 1 week prior to admission and completed a course of Tamiflu * repeat testing negative * continue supportive therapy (6) Obstructive sleep apnea: Code(s): G47.33 - Obstructive sleep apnea (adult) (pediatric) Status: Acute Assessment and Plan: * continue CPAP at night and with naps (7) Type II diabetes mellitus: Code(s): E11.9 - Type 2 diabetes mellitus without complications Status: Acute Assessment and Plan: * noted in the past but now diet controlled * previous hyperglycemia noted with steroid use * glycemic control per hospitalists Will continue to follow. L Subjective Date/time seen: 03/31/24 13:22 Interval history: Follow-up for end stage renal disease on hemodialysis. Tolerated dry ultrafiltration session yesterday although fluid removal was limited due to chronic hypotension/hemodynamics; states breathing/respiratory status seems stable if not a bit better in the last 24 hours; sitting up in chair reading a book at the time of my evaluation; recent Echo noted/reviewed; no apparent distress noted. Exam 2 Narrative: General: WD/WN female in NAD Heart: normal S1 and S2; no rub Lungs: clear anteriorly; decreased at the bases Abdomen: soft, nontender, nondistended, positive bowel sounds Extremities: no cyanosis or clubbing; no edema Skin: warm and dry Objective Data Vital Signs Vital Signs: Vital Signs Temp Pulse Resp BP Pulse Ox O2 Del Method 03/31/24 13:00 97.8 F 91 14 136/77 100 03/31/24 09:16 90 20 03/31/24 09:04 88 20 03/31/24 09:04 99 Room Air 03/31/24 08:00 90 20 99 Room Air 03/31/24 06:00 97.2 F L 75 20 131/54 L 100 03/31/24 01:30 24 H 99 Autopap 03/31/24 01:18 80 18 03/30/24 23:00 19 99 Autopap 03/30/24 23:00 CPAP 03/30/24 21:40 97.0 F L 87 16 110/75 100 03/30/24 20:14 77 18 03/30/24 20:06 77 18 03/30/24 20:00 Room Air Intake/Output Intake/Output: Intake & Output 03/28/24 03/29/24 03/30/24 03/31/24 23:59 23:59 23:59 23:59 Intake Total 1135 0833 804 6531 Output Total 1999 1200 Balance 6958 -908 -963 1687 Meds/Results Medications: Active Medications Generic Name Dose Route Start Last Admin Trade Name Freq PRN Reason Stop Dose Admin Acetaminophen 500 mg 03/25/24 13:28 03/30/24 09:53 Acetaminophen 500 Mg Tablet PO 500 mg QID PRN Administration Fever Or Pain 1-3 Albuterol 2 puff 03/25/24 22:34 Albuterol Sulfate (*Sp) Aerosol 1 Puff INHALATION QIDRT PRN Shortness Of Breath Albuterol/Ipratropium 3 ml 03/25/24 14:00 03/31/24 14:19 Ipratropium 0.5 Mg/Albuterol Sulfate 2.5 Mg Ampul.Neb 3 Ml INHALATION 3 ml Q6HRT JAZMIN Administration Artificial Tears 1 drop 03/25/24 13:28 Artificial Tears Ophth Soln 15 Ml Bottle EACH EYE TID PRN Dry Eyes Aspirin 81 mg 03/26/24 09:00 03/31/24 09:57 Aspirin 81 Mg Enteric Tablet PO 81 mg DAILY JAZMIN Administration Atorvastatin Calcium 40 mg 03/25/24 21:00 03/30/24 20:41 Atorvastatin 40 Mg Tablet PO 40 mg HS JAZMIN Administration Bisacodyl 5 mg 03/28/24 22:02 03/28/24 22:28 Bisacodyl 5 Mg Tablet Ec PO 5 mg QAM PRN Administration Constipation Budesonide 0.5 mg 03/29/24 20:00 03/31/24 09:04 Budesonide Respule Neb 0.5 Mg/2 Ml Amp INHALATION 0.5 mg Q12HRT JAZMIN Administration Calcium Acetate 667 mg 03/25/24 17:00 03/31/24 16:15 Calcium Acetate 667 Mg Tablet PO 667 mg BIDWM JAZMIN Administration Cinacalcet 60 mg 03/27/24 09:00 03/29/24 09:32 Cinacalcet 30 Mg Tablet PO 60 mg [id number] JAZMIN Administration Clopidogrel Bisulfate 75 mg 03/30/24 09:00 03/31/24 09:57 Clopidogrel Bisulfate 75 Mg Tablet PO 75 mg DAILY JAZMIN Administration Dextrose 12.5 gm 03/25/24 13:22 Dextrose 50% 25 Gm/50 Ml Syringe IV PUSH PRN PRN Hypoglycemia Protocol Digoxin 125 mcg 03/28/24 09:00 03/31/24 10:06 Digoxin Tab 125 Mcg Tablet PO 125 mcg SuTh@0900 JAZMIN Administration Fluoxetine HCl 10 mg 03/26/24 09:00 03/31/24 09:58 Fluoxetine Hcl 10 Mg Capsule PO 10 mg DAILY JAZMIN Administration Fluticasone Propionate 2 spray 03/26/24 09:00 03/31/24 09:58 Fluticasone Propionate 0.05% Na Spr 16 Gm Btl (*Bkc) NASAL 2 spray DAILY JAZMIN Administration Gabapentin 200 mg 03/25/24 17:00 03/31/24 16:14 Gabapentin 100 Mg Capsule PO 200 mg BID JAZMIN Administration Glucagon 1 mg 03/25/24 13:22 Glucagon For Inj 1 Mg Vial IM PRN PRN Hypoglycemia Protocol Glucose 15 gm 03/25/24 13:22 03/30/24 16:45 Glucose Oral Gel 15 Gm Of Glucse In 37.5 Gm Tube PO 15 gm PRN PRN Administration Hypoglycemia Protocol Guaifenesin 1,200 mg 03/27/24 21:00 03/31/24 10:06 Guaifenesin 12 Hr 600 Mg Tabcr PO 1,200 mg Q12HR JAZMIN Administration Dextrose 1,000 mls @ 100 mls/hr 03/25/24 13:22 Dextrose 5% 1,000 Ml IVPB PRN PRN Hypoglycemia Protocol Albumin Human 50 mls @ 999 mls/hr 03/27/24 06:00 03/30/24 13:45 Albutein IVPB 04/26/24 05:59 999 mls/hr Q10M PRN Administration HYPOTENSION Cefepime HCl 1 gm in 50 mls @ 100 mls/hr 03/28/24 18:00 03/31/24 17:52 Maxipime 1 Gm/Ns 50 Ml IVPB 100 mls/hr DAILY@1800 JAZMIN Administration Insulin Aspart 3 - 6 units 03/25/24 17:00 03/31/24 17:51 Insulin Aspart (*Bkc) 100 Units/Ml SUB-Q Not Given TIDWM JAZMIN Protocol Latanoprost 1 drop 03/25/24 21:00 03/30/24 20:41 Latanoprost 0.005% Op Soln 2.5 Ml Btl EACH EYE 1 drop HS JAZMIN Administration Lidocaine 1 patch 03/26/24 09:00 03/31/24 09:58 Lidocaine 5% Patch TRANSDERM 1 patch DAILY JAZMIN Administration Midodrine 15 mg 03/25/24 17:00 03/31/24 16:15 Midodrine Hcl 2.5 Mg Tablet PO 15 mg TIDWM JAZMIN Administration Montelukast Sodium 10 mg 03/25/24 21:00 03/30/24 20:41 Montelukast Sodium 10 Mg Tablet PO 10 mg HS JAZMIN Administration Ondansetron HCl 4 mg 03/29/24 11:22 03/29/24 11:37 Ondansetron Inj 4 Mg/2 Ml Vial IV PUSH 4 mg Q6H PRN Administration Nausea And Vomiting Oxycodone HCl 5 mg 03/25/24 13:28 03/29/24 04:43 Oxycodone Hcl (*Crx) 5 Mg Tab Ir PO 5 mg Q6H PRN Administration Pain Rated 4-10 Pantoprazole Sodium 40 mg 03/25/24 17:00 03/31/24 16:15 Pantoprazole 40 Mg Tablet PO 40 mg BID JAZMIN Administration Perflutren Lipid Microsphere 0 ml 03/29/24 12:42 Perflutren Lipid Microspheres 1.5 Ml Vial Diluted To 10 Ml Total Volume IV PUSH 04/01/24 12:43 ONCE PRN adequate visualization Protocol Tizanidine HCl 2 mg 03/25/24 13:28 03/29/24 04:44 Tizanidine Hcl 2 Mg Tablet PO 2 mg TID PRN Administration Muscle Spasm Vitamin B Complex/Folic Acid 1 cap 03/26/24 09:00 03/31/24 09:56 Vitamin B Cmplx/Vit C/Folic Ac 1 Capsule PO 1 cap QAM [facility] Administration Vitamin D 3,000 units 03/26/24 09:00 03/31/24 09:57 Cholecalciferol 1,000 Units Tablet PO 3,000 units DAILY JAZMIN Administration Radiology Results: ITS Impressions Chest CT 03/25/24 10:53 IMPRESSION: 1. Scattered chronic interstitial lung disease in both lungs which include multiple tiny calcified nodules consistent with either sequela of old granulomatous disease or potentially dystrophic calcification related to renal osteodystrophy. 2. Cardiomegaly. 3. Small sliding-type hiatal hernia. 4. Nephrolithiasis versus atherosclerotic calcifications at the visualized portion of the upper pole the right kidney. Thoracic Spine X-Ray 03/25/24 14:10 IMPRESSION: No acute fracture or traumatic malalignment detected in the thoracic spine. Chest X-Ray 03/29/24 13:54 IMPRESSION: 1. Stable diffuse lung disease, consistent with chronic interstitial lung disease and mild atelectasis. 2. Cardiomegaly. Labs Labs: Laboratory Tests 03/31/24 05:39 03/31/24 05:39 Calcium 8.7 Total Bilirubin 1.4 H AST 19 ALT 9 Alkaline Phosphatase 82 Total Protein 8.0 Albumin 4.3 Microbiology 03/25/24 10:10 Blood Blood Culture - Final Enterobacter cloacae complex 03/25/24 11:22 Blood Blood Culture - Final 03/29/24 19:26 Blood Blood Culture - Preliminary 03/29/24 19:26 Blood Blood Culture - Preliminary
[2024-03-31 16:50] LABS: Glucose Point of Care 131 mg/dl (65-105)
[2024-03-31] MEDS: CEFEPIME 1 GM/NS 50 ML 1 GM/50 ML BAG IVPB (17:52)
[2024-03-31] MEDS: ATORVASTATIN 40 MG TABLET PO (20:37)
[2024-03-31] MEDS: LATANOPROST 0.005% OP SOLN 2.5 ML BTL 1 DROP EACH EYE (20:37)
[2024-03-31] MEDS: MONTELUKAST SODIUM 10 MG TABLET PO (20:37)
[2024-03-31] MEDS: ACETAMINOPHEN 500 MG TABLET PO (20:39)
[2024-03-31 21:58] LABS: Glucose Point of Care 169 mg/dl (65-105)
[2024-04-01] VITALS (26 sets, daily range): BP systolic 91–162; BP diastolic 47–115; PULSE 50–102; RESP 15–23; TEMP 36.2–37.8; O2SAT 97–100
[2024-04-01] MEDS: IPRATROPIUM 0.5 MG/ALBUTEROL SULFATE 2.5 MG AMPUL.NEB 3 ML INHALATION ×4 (02:34→19:54)
[2024-04-01 07:37] LABS: Basophils Percent Auto 0.3 % (0.2-1.2); Eosinophils Absolute Auto 0.8 K/mm3 (0-0.3); Hematocrit 31.9 % (37.0-47.0); Hemoglobin 9.3 g/dL (12.0-15.0); Immature Granulocyte Absolute 0.23 K/mm3 (0.00-0.031); Immature Granulocyte Percent A 1.8 % (0-0.5); Lymphocytes Percent Auto 19.2 % (18.3-44.2); Mean Corpuscular HGB Conc 29.2 g/dl (32-36); Mean Corpuscular Hemoglobin 27.4 pg (26-34); Mean Corpuscular Volume 94.1 fl (80-100); Neutrophils Absolute Auto 8.4 K/mm3 (1.3-6.7); Neutrophils Percent Auto 64.7 % (45.5-73.1); Nucleated Red Blood Cells Perc 0.3 % (0.0-0.2); Platelet Count Result 273 k/mm3 (150-375); Red Blood Count 3.39 M/mm3 (4.2-5.4); Red Cell Distribution Width 17.6 % (11.5-14.5)
[2024-04-01] MEDS: BUDESONIDE RESPULE NEB 0.5 MG/2 ML AMP INHALATION ×2 (07:52→19:54)
[2024-04-01 07:54] LABS: Glucose Point of Care 85 mg/dl (65-105)
[2024-04-01 08:03] LABS: Alanine Aminotransferase 10 U/L (6-35); Albumin Level 4.3 g/dL (3.5-5.1); Alkaline Phosphatase 91 U/L (38-126); Anion Gap 21 mmol/L (4-12); Aspartate Amino Transferase 18 U/L (14-36); Bilirubin,Total 1.7 mg/dL (0.2-1.3); Blood Urea Nitrogen 54 mg/dL (7-17); Calcium 8.6 mg/dL (8.4-10.2); Carbon Dioxide 21 mmol/L (22-30); Chloride 100 mmol/L (98-107); Estimated CRCL calculation 4 ml/min; Estimated Glomerular Filt Rate 4; Glucose 86 mg/dL (65-110); Potassium 4.4 mmol/L (3.4-5.0); Sodium 142 mmol/L (137-145)
[2024-04-01] MEDS: MIDODRINE HCL 2.5 MG TABLET 15 MG PO ×2 (08:14→17:04)
[2024-04-01] MEDS: FLUTICASONE PROPIONATE 0.05% NA SPR 16 GM BTL (*BKC) 2 SPRAY NASAL (08:16)
[2024-04-01 08:24] LABS: Atypical Lymphocytes Present; Hypochromasia 1+; Platelet Estimate Adequate (Adequate); Schistocytes None Seen
[2024-04-01 08:59] LABS: NT Pro B Type Natriuretic Pept > 30000 pg/mL (19.9-100)
--- NOTE | 2024-04-01 09:02 | P.PNIM_ITS ---
Progress Note: A&P Assessment and Plan (1) Shortness of breath: Code(s): R06.02 - Shortness of breath Status: Acute Assessment and Plan: Patient presents with worsening SOB 1 week after being diagnosed with influenza. CT chest showing what appears to be more chronic findings. WBC normal and no fevers. She is having pleuritic chest pain and scant hemopytsis but sputum o/w clear. Consider PE but no evidence of DVT, tachycardia or hypoxia. And another diagnosis more likely. She denies that she has COPD but does have asthma; suspect she is having more of an asthma exacerbation Possible fluid overload however she just had HD. BNP probably chronically elevated. CXR: 1. New airspace opacity lateral left lower lung zone which could be due to atelectasis, pneumonia, paracardial fat pad or some combination thereof. 2. Cardiomegaly. Chest CT: 1. Scattered chronic interstitial lung disease in both lungs which include multiple tiny calcified nodules consistent with either sequela of old granulomatous disease or potentially dystrophic calcification related to renal osteodystrophy. 2. Cardiomegaly. 3. Small sliding-type hiatal hernia. 4. Nephrolithiasis versus atherosclerotic calcifications at the visualized portion of the upper pole the right kidney. Repeat CXR: 1. Stable diffuse lung disease, consistent with chronic interstitial lung disease and mild atelectasis. 2. Cardiomegaly. - Echo LVEF 25-30% with mild pulmonary hypertension - MRSA nasal swab negative. - BCx returned positive with Enterobacter cloacae (other set Negative) - Repeat BCx: NGTD - Antibiotics: Rocephin transitioned to cefepime base on cultures, transitioned to Levaquin on 04/01 per ID pharmacy recommendations. Doxycycline course completed. - Started bronchodilators and steroids. - Continue Pep therapy and IS - Vest CPT - Monitor vital signs, I&Os, neuro status and patient is a fall risk - Follow WBC, serum electrolytes, temperature curves and cultures - Pulmonology consulted, appreciate recommendations Patient currently has Jl-Fuentes respirations suggestive of chf and fluid overload Continue 2 more days of doxycycline for total of 7 days. Continue combination ceftriaxone and cefepime for total of 7 days although she will likely need cefepime longer given her Enterobacter cloaca a bacteremia. Repeat blood cultures: NGTD 04/01: Patient states that shortness of breath continues to improve but continues to endorse a productive cough. Speech continues to improve. (2) Asthma: Code(s): J45.909 - Unspecified asthma, uncomplicated Status: Acute Assessment and Plan: Chronic asthma. Followed by Dr. Tobin, applier. Wheezing has resolved. - Pulmonology consulted, appreciate recommendations DuoNebs q6 Budesonide 500 mcg BID (3) Influenza: Code(s): J11.1 - Influenza due to unidentified influenza virus with other respiratory manifestations Status: Acute Assessment and Plan: Patient diagnosed with influenza and completed a course of Tamiflu Repeat testing negative. Hold off on repeat treatment since stable and testing negative now Follow (4) Combined systolic and diastolic congestive heart failure: Code(s): I50.40 - Unspecified combined systolic (congestive) and diastolic (congestive) heart failure Status: Acute Assessment and Plan: - Dialysis MWF, not on any GDMT medications. Follows Dr. Ann. - BNP: > 91777 likely chronically elevated - See chest XR and CTA above in #1 - Echo: LVEF 25-30% with mild pulmonary hypertension Echo 05/11/22: LVEF 30-35%. Patient states previous EF 50%. - Monitor vital signs, I&Os, BUN/creatinine, daily weights, neuro status and patient is a fall risk - Monitor serum electrolytes, Keep serum Potassium>4 and serum Magnesium>2 and CBC - Cardiology consulted, appreciate recommendations -unable to dependence on midodrine at this time -recommend outpatient for initiation of guideline directed medical therapy and weaning of midodrine (5) End-stage renal disease on hemodialysis: Onset Date: 09/2009 Code(s): N18.6 - End stage renal disease; Z99.2 - Dependence on renal dialysis Status: Acute Assessment and Plan: Patient on dialysis M-W-. Nephrology consult for dialysis treatment plan. (6) Chronic anemia: Code(s): D64.9 - Anemia, unspecified Status: Chronic Assessment and Plan: Patient with chronic anemia. Hgb last year was in the 8-11 range. Hgb 7.9 on admission and 8.9 on repeat. H/H 9.3/31.9 on am labs B12 and folate normal. Iron studies c/w anemia of chronic disease probably from ESRD. Follow (7) Obstructive sleep apnea: Code(s): G47.33 - Obstructive sleep apnea (adult) (pediatric) Status: Acute Assessment and Plan: Patient with LENORA, states she intermittently wears her auto pap overnight but has not been wearing it recently. She did not receive her CPAP overnight. Call made to Respiratory therapy for CPAP at night and with naps as she tolerates Pulmonology called [facility] and the patient is on auto PAP 5-16. They have no data since August of 2022 so either she is noncompliant or her data transfer is not working. Start auto pap at 5-16. (8) Back pain: Code(s): M54.9 - Dorsalgia, unspecified Status: Acute Assessment and Plan: Patient with mid thoracic palpable back pain. No trauma. Xray showing no fractures. Continue Lidocaine patch (9) Type II diabetes mellitus: Code(s): E11.9 - Type 2 diabetes mellitus without complications Status: Acute Assessment and Plan: Patient has DM in the past requiring sliding scale insulin but not requiring treatment now. A1c 4.7%. She has peripheral neuropathy and takes Gabapentin for this. Continue sliding scale with hypoglycemia protocol. Plan DVT prophylaxis - Heparin Code status - full Debility - PT/OT Subjective Date/time seen: 04/01/24 09:02 Interval history: 68yo female with ESRD on HD M-W-F, CHF, PAFib s/p Watchman, DM and LENORA here for feeling short of breath and cough. Patient is pleasant lying in bed receiving dialysis at time of assessment. She states that she is feeling better today and has noticed improvement to her speech. She continues to have a produtive cough. She has no other complaints denying chest pain, palpitations, nausea/vomiting and abdominal pain. Review of Systems Review of Systems: All systems reviewed & are unremarkable except as noted in HPI and below Exam Narrative: AF HR 78 RR 18 SPO2 99 BP 106/67 General: female who is nontoxic appearing, sitting up in chair HEENT: Normocephalic. Atraumatic. Extraocular movement intact. Sclera clear and anicteric. No facial asymmetry. Chest: Lung on auscultation bilaterally with coarse bases. Speaking full sentences. No accessory muscle use. No wheezes. CV: Heart was regular rate and rhythm. S1-S2. No murmurs, gallops, or rubs. Abd: Abdomen was soft. Nontender. Nondistended. Positive bowel sounds. No organomegaly or masses. Ext: No clubbing, cyanosis, or edema. 2+ DP pulses bilaterally. Neuro: Patient is alert. Speech is clear. Objective Data Vital Signs Vital Signs: Vital Signs - 24 hr 03/31/24 09:04 03/31/24 09:04 03/31/24 09:16 Temperature Pulse Rate 88 90 Respiratory Rate 20 20 Blood Pressure Pulse Oximetry 99 Oxygen Delivery Room Air Fraction of Inspired Oxygen 03/31/24 14:00 03/31/24 14:21 03/31/24 14:21 Temperature 97.8 F Pulse Rate 91 94 94 Respiratory Rate 14 20 20 Blood Pressure 136/77 Pulse Oximetry 100 94 Oxygen Delivery Room Air Fraction of Inspired Oxygen 03/31/24 14:30 03/31/24 19:44 03/31/24 19:44 Temperature Pulse Rate 87 89 Respiratory Rate 20 20 Blood Pressure Pulse Oximetry 100 Oxygen Delivery Room Air Fraction of Inspired Oxygen 21 03/31/24 19:56 03/31/24 22:00 03/31/24 23:20 Temperature 97.9 F Pulse Rate 87 84 89 Respiratory Rate 20 20 20 Blood Pressure 124/60 Pulse Oximetry 100 98 Oxygen Delivery Autopap Fraction of Inspired Oxygen 04/01/24 02:34 04/01/24 02:34 04/01/24 06:00 Temperature 97.6 F Pulse Rate 85 85 87 Respiratory Rate 17 17 20 Blood Pressure 131/82 Pulse Oximetry 97 100 Oxygen Delivery Autopap Fraction of Inspired Oxygen 04/01/24 07:55 04/01/24 07:55 04/01/24 08:06 Temperature Pulse Rate 83 83 85 Respiratory Rate 20 20 20 Blood Pressure Pulse Oximetry 99 Oxygen Delivery Room Air Fraction of Inspired Oxygen Intake/Output Intake/Output: Intake & Output 03/29/24 03/30/24 03/31/24 04/01/24 23:59 23:59 23:59 23:59 Intake Total 7786 634 2851 150 Output Total 1999 1200 Balance -170 -430 1680 150 Meds/Results Medications: Active Medications Generic Name Dose Route Start Last Admin Trade Name Freq PRN Reason Stop Dose Admin Acetaminophen 500 mg 03/25/24 13:28 03/31/24 20:39 Acetaminophen 500 Mg Tablet PO 500 mg QID PRN Administration Fever Or Pain 1-3 Albuterol 2 puff 03/25/24 22:34 Albuterol Sulfate (*Sp) Aerosol 1 Puff INHALATION QIDRT PRN Shortness Of Breath Albuterol/Ipratropium 3 ml 03/25/24 14:00 04/01/24 07:52 Ipratropium 0.5 Mg/Albuterol Sulfate 2.5 Mg Ampul.Neb 3 Ml INHALATION 3 ml Q6HRT JAZMIN Administration Artificial Tears 1 drop 03/25/24 13:28 Artificial Tears Ophth Soln 15 Ml Bottle EACH EYE TID PRN Dry Eyes Aspirin 81 mg 03/26/24 09:00 03/31/24 09:57 Aspirin 81 Mg Enteric Tablet PO 81 mg DAILY JAZMIN Administration Atorvastatin Calcium 40 mg 03/25/24 21:00 03/31/24 20:37 Atorvastatin 40 Mg Tablet PO 40 mg HS JAZMIN Administration Bisacodyl 5 mg 03/28/24 22:02 03/28/24 22:28 Bisacodyl 5 Mg Tablet Ec PO 5 mg QAM PRN Administration Constipation Budesonide 0.5 mg 03/29/24 20:00 04/01/24 07:52 Budesonide Respule Neb 0.5 Mg/2 Ml Amp INHALATION 0.5 mg Q12HRT JAZMIN Administration Calcium Acetate 667 mg 03/25/24 17:00 03/31/24 16:15 Calcium Acetate 667 Mg Tablet PO 667 mg BIDWM JAZMIN Administration Cinacalcet 60 mg 03/27/24 09:00 03/29/24 09:32 Cinacalcet 30 Mg Tablet PO 60 mg [id number]@0900 JAZMIN Administration Clopidogrel Bisulfate 75 mg 03/30/24 09:00 03/31/24 09:57 Clopidogrel Bisulfate 75 Mg Tablet PO 75 mg DAILY JAZMIN Administration Dextrose 12.5 gm 03/25/24 13:22 Dextrose 50% 25 Gm/50 Ml Syringe IV PUSH PRN PRN Hypoglycemia Protocol Digoxin 125 mcg 03/28/24 09:00 03/31/24 10:06 Digoxin Tab 125 Mcg Tablet PO 125 mcg SuTh@0900 JAZMIN Administration Epoetin Daniele-epbx 10,000 units 04/01/24 19:00 Epoetin Daniele-Epbx 10,000 Units/Ml Vial IV PUSH 04/01/24 19:01 ONCE ONE Fluoxetine HCl 10 mg 03/26/24 09:00 03/31/24 09:58 Fluoxetine Hcl 10 Mg Capsule PO 10 mg DAILY JAZMIN Administration Fluticasone Propionate 2 spray 03/26/24 09:00 04/01/24 08:16 Fluticasone Propionate 0.05% Na Spr 16 Gm Btl (*Bkc) NASAL 2 spray DAILY JAZMIN Administration Gabapentin 200 mg 03/25/24 17:00 03/31/24 16:14 Gabapentin 100 Mg Capsule PO 200 mg BID JAZMIN Administration Glucagon 1 mg 03/25/24 13:22 Glucagon For Inj 1 Mg Vial IM PRN PRN Hypoglycemia Protocol Glucose 15 gm 03/25/24 13:22 03/30/24 16:45 Glucose Oral Gel 15 Gm Of Glucse In 37.5 Gm Tube PO 15 gm PRN PRN Administration Hypoglycemia Protocol Guaifenesin 1,200 mg 03/27/24 21:00 03/31/24 20:37 Guaifenesin 12 Hr 600 Mg Tabcr PO 1,200 mg Q12HR JAZMIN Administration Dextrose 1,000 mls @ 100 mls/hr 03/25/24 13:22 Dextrose 5% 1,000 Ml IVPB PRN PRN Hypoglycemia Protocol Albumin Human 50 mls @ 999 mls/hr 03/27/24 06:00 03/30/24 13:45 Albutein IVPB 04/26/24 05:59 999 mls/hr Q10M PRN Administration HYPOTENSION Cefepime HCl 1 gm in 50 mls @ 100 mls/hr 03/28/24 18:00 03/31/24 17:52 Maxipime 1 Gm/Ns 50 Ml IVPB 100 mls/hr DAILY@1800 JAZMIN Administration Insulin Aspart 3 - 6 units 03/25/24 17:00 03/31/24 17:51 Insulin Aspart (*Bkc) 100 Units/Ml SUB-Q Not Given TIDWM JAZMIN Protocol Latanoprost 1 drop 03/25/24 21:00 03/31/24 20:37 Latanoprost 0.005% Op Soln 2.5 Ml Btl EACH EYE 1 drop HS JAZMIN Administration Lidocaine 1 patch 03/26/24 09:00 03/31/24 09:58 Lidocaine 5% Patch TRANSDERM 1 patch DAILY JAZMIN Administration Midodrine 15 mg 03/25/24 17:00 04/01/24 08:14 Midodrine Hcl 2.5 Mg Tablet PO 15 mg TIDWM JAZMIN Administration Montelukast Sodium 10 mg 03/25/24 21:00 03/31/24 20:37 Montelukast Sodium 10 Mg Tablet PO 10 mg HS JAZMIN Administration Ondansetron HCl 4 mg 03/29/24 11:22 03/29/24 11:37 Ondansetron Inj 4 Mg/2 Ml Vial IV PUSH 4 mg Q6H PRN Administration Nausea And Vomiting Oxycodone HCl 5 mg 03/25/24 13:28 03/29/24 04:43 Oxycodone Hcl (*Crx) 5 Mg Tab Ir PO 5 mg Q6H PRN Administration Pain Rated 4-10 Pantoprazole Sodium 40 mg 03/25/24 17:00 03/31/24 16:15 Pantoprazole 40 Mg Tablet PO 40 mg BID JAZMIN Administration Perflutren Lipid Microsphere 0 ml 03/29/24 12:42 Perflutren Lipid Microspheres 1.5 Ml Vial Diluted To 10 Ml Total Volume IV PUSH 04/01/24 12:43 ONCE PRN adequate visualization Protocol Tizanidine HCl 2 mg 03/25/24 13:28 03/29/24 04:44 Tizanidine Hcl 2 Mg Tablet PO 2 mg TID PRN Administration Muscle Spasm Vitamin B Complex/Folic Acid 1 cap 03/26/24 09:00 03/31/24 09:56 Vitamin B Cmplx/Vit C/Folic Ac 1 Capsule PO 1 cap QAM JAZMIN Administration Vitamin D 3,000 units 03/26/24 09:00 03/31/24 09:57 Cholecalciferol 1,000 Units Tablet PO 3,000 units DAILY JAZMIN Administration Radiology Results: ITS Impressions Chest CT 03/25/24 10:53 IMPRESSION: 1. Scattered chronic interstitial lung disease in both lungs which include multiple tiny calcified nodules consistent with either sequela of old granulomatous disease or potentially dystrophic calcification related to renal osteodystrophy. 2. Cardiomegaly. 3. Small sliding-type hiatal hernia. 4. Nephrolithiasis versus atherosclerotic calcifications at the visualized portion of the upper pole the right kidney. Thoracic Spine X-Ray 03/25/24 14:10 IMPRESSION: No acute fracture or traumatic malalignment detected in the thoracic spine. Chest X-Ray 04/01/24 08:45 Impression: Clear lungs. Stable cardiomegaly with left atrial closure device. Stable support line. Labs Labs: Laboratory Results - last 24 hr 03/31/24 03/31/2403/31/25 12:04 16:43 21:06 WBC RBC Hgb Hct MCV MCH MCHC RDW Plt Count MPV Immature Gran % (Auto) Neut % (Auto) Lymph % (Auto) Harris % (Auto) Eos % (Auto) Baso % (Auto) Lymph # (Auto) Harris # (Auto) Eos # (Auto) Baso # (Auto) Abs Immat Gran (auto) Absolute Neuts (auto) Absolute Nucleated RBC Nucleated RBC % Atypical Lymphocytes Platelet Estimate Hypochromasia Schistocytes Sodium Potassium Chloride Carbon Dioxide Anion Gap BUN Creatinine Estim Creat Clear Calc Estimated GFR Glucose POC Capillary Glucose 126 H 131 H 169 H Calcium Total Bilirubin AST ALT Alkaline Phosphatase NT-Pro-B Natriuret Pep Total Protein Albumin 04/01/24 04/01/24 07:20 07:52 WBC 13.0 H RBC 3.39 L Hgb 9.3 L Hct 31.9 L MCV 94.1 MCH 27.4 MCHC 29.2 L RDW 17.6 H Plt Count 273 MPV 10.0 Immature Gran % (Auto) 1.8 H Neut % (Auto) 64.7 Lymph % (Auto) 19.2 Harris % (Auto) 8.0 Eos % (Auto) 6.0 H Baso % (Auto) 0.3 Lymph # (Auto) 2.50 Harris # (Auto) 1.0 H Eos # (Auto) 0.8 H Baso # (Auto) 0.0 Abs Immat Gran (auto) 0.23 H Absolute Neuts (auto) 8.4 H Absolute Nucleated RBC 0.040 H Nucleated RBC % 0.3 H Atypical Lymphocytes Present Platelet Estimate Adequate Hypochromasia 1+ Schistocytes None seen Sodium 142 Potassium 4.4 Chloride 100 Carbon Dioxide 21 L Anion Gap 21 H BUN 54 H D Creatinine 10.61 H Estim Creat Clear Calc 4 Estimated GFR 4 L Glucose 86 POC Capillary Glucose 85 Calcium 8.6 Total Bilirubin 1.7 H AST 18 ALT 10 Alkaline Phosphatase 91 NT-Pro-B Natriuret Pep > 58886 H Total Protein 8.0 Albumin 4.3 Quality VTE Prophylaxis VTE prophylaxis: pharmacologic ordered
--- NOTE | 2024-04-01 09:40 | PCOTNOTE ---
Patient out of the room at this time. Patient is in dialysis.
--- NOTE | 2024-04-01 10:16 | P.PNPL_ITS ---
Progress Note: A&P Assessment and Plan (1) Asthma: Code(s): J45.909 - Unspecified asthma, uncomplicated Status: Acute Assessment and Plan: Patient is a never smoker and does not have COPD. She tells me she has asthma followed by her spring machine operator Dr. Tobin. She tells me she is on inhalers for asthma but none are listed on her home medication list. she tells me she takes Flovent 220 at 2 puffs b.i.d. with rescue albuterol use. When she is doing well she uses her rescue albuterol approximately 1 time per month. 03/29/24: Plan: currently the patient has wheezing. This may be related to asthma and/or fluid overload. Will continue DuoNebs q.6 hours. I will add nebulized budesonide 500 mcg twice a day. Patient is currently being treated for possible pneumonia. She received ceftriaxone 03/25 through 03/28. Azithromycin on 03/25 and doxycycline starting on 03/26 ( Day 5 azithromycin and doxycycline). I will send urine Legionella urine pneumococcal if she can provide urine and respiratory pathogen panel. I will send serum mycoplasma IgM. From a pulmonary perspective would continue 2 more days of doxycycline for total of 7 days. Would continue combination ceftriaxone and cefepime for total of 7 days although she will likely need cefepime longer given her Enterobacter cloaca a bacteremia. Repeat blood cultures to be drawn. pulmonary inpatient services will resume on 04/01/2024, call with questions. 04/01/24: Overall the patient tells me she has improved. She is 50-60% back to her normal. She still has shortness of breath and dyspnea on exertion. She denies fever. Her cough persists but is 50-60% better producing thin clear phlegm. The phlegm is normal for her. White blood cell 13.0. Creatinine 10.61, BUN 54. BNP greater than 30,000. chest x-ray with cardiomegaly, mild basilar interstitial infiltrates, no pleural effusions, no change from 03/29/2024. Patient tells me she wore the hospital auto PAP 6-16 with room air and did well. COVID, influenza, RSV RT PCR studies negative on 03/25/2024 and 03/29/2024 Plan: Patient has improved with treatment for fluid overload with dialysis on 03/29 with 2000 out and ultrafiltration on 03/30 with 1200 out. Her BNP remains > 30,000 with some perihilar edema but no significant pulmonary edema on her chest x-ray. She is scheduled to get hemodialysis today. She is also being treated for asthma with DuoNebs q.6 hours and budesonide 500 mcg b.i.d.. She has completed 5 days of azithromycin and doxycycline. She completed 4 days of ceftriaxone and is now on day 5 of cefepime for possible pneumonia. From a pulmonary perspective she no longer needs antibiotics. Continue guaifenesin 1200 mg p.o. b.i.d.. She did have Enterobacter cloacae from a blood culture on 03/25/2024 and blood cultures on 03/29/2024 x2 are negative. Respiratory pathogen panel pending. Discussed with Joselyn Pandey (2) Obstructive sleep apnea: Code(s): G47.33 - Obstructive sleep apnea (adult) (pediatric) Status: Acute Assessment and Plan: We called her [email or web address] and the patient is on auto PAP 5-16. They have no data since August of 2022 either she is noncompliant or her data transfer is not working. She tells me she has not been wearing her machine recently. Plan: I will place the patient on hospital auto PAP 5-16. 04/01/24: Patient is tolerating the hospital APAP, ordered at 5-16 although settings are listed as 5-12. Plan: continue hospital auto PAP 5-16 and room air. (3) Shortness of breath: Code(s): R06.02 - Shortness of breath Status: Acute Assessment and Plan: Etiology of patient's shortness of breath includes congestive heart failure, fluid overload, asthma exacerbation, enterobacter cloaca a bacteremia, untreated obstructive sleep apnea, and possible pneumonia. Patient's BNP greater than 30,000 on 03/25/2024 and 03/29/2024. This was 15,100 on 05/16/2022 after she was diuresed with aggressive dialysis. Patient currently has Jl-Fuentes respirations suggestive of congestive heart failure and fluid overload. She has wheezes but this may be related fluid overload and or asthma exacerbation. Plan: Patient is scheduled to receive dialysis today. Agree with aggressive dialysis as tolerated to remove fluid. Patient may require daily dialysis to remove fluid. She is followed by hospitalist and Nephrology. As above will treat for asthma exacerbation with DuoNebs and nebulized budesonide. We will initiate patient's auto PAP 5-16 tonight. Treatment for possible pneumonia as above. 04/01/24: Patient still complains of shortness of breath at rest and with activity around the room. Plan: Agree with continue dialysis and fluid removal as tolerated. Fluid removal is limited by low blood pressure. She has completed treatment for pneumonia. Treating her asthma with DuoNebs and nebulized budesonide. Agree with aggressive physical therapy and occupational therapy as deconditioning is likely contributing factor to her shortness of breath. Subjective Date/time seen: 04/01/24 10:16 Interval history: 03/29/2024: This is a new pulmonary worsening shortness of breath. 68-year-old with a history of asthma, LENORA on auto PAP 5-15, End-stage renal disease on hemodialysis, paroxysmal atrial fibrillation, Congestive heart failure with LVEF 30-35% and grade 2 diastolic dysfunction on 05/11/2022. previously seen on 05/16/2022 in consultation For hypoxemic respiratory failure and fluid overload requiring BiPAP. Patient underwent hemodialysis with fluid removal and return back to normal and was discharged. Per the patient she has had outpatient breathing studies and her spring machine operator does not feel she has COPD. The patient does tell me she has asthma. Regarding her obstructive sleep apnea: Regarding her obstructive sleep apnea she was diagnosed in 2001 and has been on CPAP and more recently auto PAP through [facility]. She was followed by her spring machine operator Dr. Tobin at an outside facility. Patient presented on 03/25/2024 with shortness of breath after being diagnosed At [facility] with influenza a on 03/16/2024. She was treated with azithromycin and Tamiflu but did not improve clinically. she completed hemodialysis on 03/25/2024 but appeared ill and was sent to the emergency department. In the emergency department her blood pressure is 139/83, heart rate 89, respirations 20 and room air saturations were 95%. Her COVID influenza and RSV RT PCR studies were negative. She had a CT scan of the chest and compared to 05/12/2022 her diffuse ground-glass infiltrates throughout all lung hernadez were not present. She had mild peripheral areas of calcified tree-in-bud infiltrates with minimal honeycombing in the right upper lobe, left upper lobe, left lower lobe and right lower lobe with no change in these chronic changes from 05/12/2022. Of note, she had a CT scan of the abdomen that showed these chronic changes in the right lower lobe on 05/06/2015. patient had worsening shortness of breath on 03/29 and an ABG on room air was 7.38/42/76. blood cultures from 03/25/2024 show Enterobacter cloaca a. patient had dialysis on 03/27/2024 with 1.5 L removed. 03/29/2024: When I enter the room the patient was on room air and laying on her side sleeping. I placed a pulse oximeter on her finger. She had Jl- Fuentes respirations with saturations ranging from 89% to 96%. During the tachypneic portion of her Jl-Fuentes cycling she would have a cough and an arousal. I will the patient up and she said that she her breathing is worse today. She has clear thick phlegm with some blood streaking. Her BUN was 52, creatinine 9.3, white blood cell count 10.0, BNP greater than 30,000. chest x- ray showed mild bibasilar interstitial infiltrates with no change from 03/25/2024. Cumulative she is positive 3.7 L since admission. Hemodialysis with 2 L out. later in the day the [employer], [place] stated she is on auto PAP 5-16 but there is no data since August of 2022 on the [employer], indicating either she is noncompliant or isn't relay in the info through the [employer]. 03/30/2024: Ultrafiltration with 1200 out. 04/01/24: Overall the patient tells me she has improved. She is 50-60% back to her normal. She still has shortness of breath and dyspnea on exertion. She denies fever. Her cough persists but is 50-60% better producing thin clear phlegm. The phlegm is normal for her. White blood cell 13.0. Creatinine 10.61, BUN 54. BNP greater than 30,000. chest x-ray with cardiomegaly, mild basilar interstitial infiltrates, no pleural effusions, no change from 03/29/2024. Patient tells me she wore the hospital auto PAP 6-16 with room air and did well. DATA: EXAMINATION: CT diagnostic chest wo con DATE: 03/25/2024 10:52 INDICATION: cough, dyspnea TECHNIQUE: Computed tomography (CT) of the chest was performed without intravenous contrast. Additional 3D reconstructions utilizing coronal maximum intensity projection (MIP) were performed. Automated exposure control and iterative reconstruction technique were employed. The dose-length product was 207.26 mGy-cm. COMPARISON: 05/12/2022 FINDINGS: The previously seen groundglass opacities in the lungs have resolved. There are persistent patchy regions of coarse interstitial pattern and tree-in-bud opacit ies scattered throughout both lungs. There are numerous associated tiny calcifications which could be related to sequela of old granulomatous disease or potentially dystrophic calcification related to renal osteodystrophy. No pulmonary edema, pleural effusion or pneumothorax. Cardiomegaly. Atherosclerotic coronary artery calcifications. Left atrial appendage occlusion device. Tunneled right internal jugular central venous catheter with distal tip in the right atrium. No pericardial effusion. Thoracic aorta is normal in caliber. Postoperative change of prior sleeve gastrectomy with suture line along the greater curvature of the stomach. There is a small sliding-type hernia with portion of the suture line extending above level of the diaphragm. No pathologically enlarged thoracic lymphadenopathy. Severe thoracic spondylosis. Cholecystectomy clips the gallbladder fossa. There are couple low-attenuation hepatic cysts measuring up to 1.3 cm. There are cysts measuring up to 2 cm at the upper poles of both kidneys. Calcification is at the upper pole the right kidney could be either atherosclerotic or nephrolithiasis. Partially visualized combined instrumented anterior and posterior spinal fusion at the visualized lower cervical spine. IMPRESSION: 1. Scattered chronic interstitial lung disease in both lungs which include multiple tiny calcified nodules consistent with either sequela of old granulomatous disease or potentially dystrophic calcification related to renal osteodystrophy. 2. Cardiomegaly. 3. Small sliding-type hiatal hernia. 4. Nephrolithiasis versus atherosclerotic calcifications at the visualized portion of the upper pole the right kidney. 05/12/24: CT Scan of the Chest without Contrast: Clinical Indication: Fluid overload versus pneumonia Technique: Contiguous sections were acquired throughout the chest without intravenous contrast. Dose reduction technique was used on this scan by utilizing automated exposure control and iterative reconstruction technique. The dose-length product (DLP) was 247.08 mGy-cm. COMPARISON: 11/02/2012 Findings: There is no evidence of any significant mediastinal, hilar or axillary lymphadenopathy. There are atherosclerotic calcifications of the aorta. Mild coronary artery calcifications are present. There is no evidence of pleural or pericardial effusion. There is diffuse groundglass pulmonary disease bilaterally. There is mild interstitial thickening in the anterior upper lobes bilaterally, with possible small amount of aspirated material or pleural calcifications. Images through the upper abdomen reveal small hiatal hernia with probable prior bariatric surgery. Impression: Diffuse groundglass pulmonary disease. This is nonspecific, and could reflect pulmonary edema, pneumonia, or other inflammatory conditions. Clinical correlation is required. Probable chronic interstitial change in the anterior upper lobes bilaterally, with possible small amount of aspirated material. 05/11/2022: Echo Summary 1. Complete two-dimensional, color flow and Doppler transthoracic echocardiogram is performed. 2. Concentric left ventricular hypertrophy with mild LV enlargement and moderately reduced systolic function. 3. Grade 2 diastolic noncompliance. 4. Dilated left atrium. 5. Mildly sclerotic aortic valve. Left Ventricle Left ventricular chamber dimension is moderately enlarged. Left ventricular systolic function is moderately reduced, estimated at 30-35%. There is mild concentric increased left ventricular wall thickness. The left ventricular diastolic function is grade II diastolic dysfunction. Right Ventricle Right ventricular chamber dimension is normal. Left Atria Left atrial chamber dimension is moderately enlarged. Right Atria Right atrial chamber dimension is normal. Review of Systems Constitutional: Constitutional: Reports no additional constitutional complaints Eyes: Eyes: Reports no additional eye complaints ENT: Reports system reviewed and no additional complaints, except as documented Cardiovascular: Cardiovascular: Reports no additional cardiovascular complaints Respiratory: Respiratory: Reports no additional respiratory complaints Gastrointestinal: Gastrointestinal: Reports no additional gastrointestinal complaints Musculoskeletal: Musculoskeletal: Reports no additional musculoskeletal complaints Neurologic: Reports system reviewed and no additional complaints, except as documented Psychiatric: Psychiatric: Reports no additional psychiatric complaints Endocrine: Endocrine: Reports no additional endocrine complaints Hematologic/Lymphatic: Hematologic/Lymphatic: Reports no additional hematologic/lymphatic complaints Allergic/Immunologic: Allergic/Immunologic: Reports no additional allergic/immunologic complaints Exam Const: General: cooperative and healthy appearing Orientation/consciousness: oriented to person, oriented to place and oriented to time Other: mild distress HENMT: Head: normal to inspection Ears: hearing grossly normal bilaterally Eyes: General: appearance normal, both eyes and all related structures Neck: Neck: normal visual inspection Chest: Chest palpation & inspection: normal inspection of the chest Resp: Effort & Inspection: normal respiratory effort and able to speak in complete sentences Auscultation: crackles, no rales, no rhonchi, no wheezes and lung sounds not diminished Other: Crackles no wheezes today Cardio: Jugular venous distension: no JVD GI: Inspection: normal to inspection Skin: General skin exam: normal color Neuro: General: oriented to person, oriented to place and oriented to time Extrem: General: normal to inspection Psych: Appearance: grossly normal Objective Data Vital Signs Vital Signs: Vital Signs - 24 hr 03/31/24 14:00 03/31/24 14:21 03/31/24 14:21 Temperature 36.6 C Pulse Rate 91 94 94 Respiratory Rate 14 20 20 Blood Pressure 136/77 Pulse Oximetry 100 94 Oxygen Delivery Room Air Fraction of Inspired Oxygen 03/31/24 14:30 03/31/24 19:44 03/31/24 19:44 Temperature Pulse Rate 87 89 Respiratory Rate 20 20 Blood Pressure Pulse Oximetry 100 Oxygen Delivery Room Air Fraction of Inspired Oxygen 21 03/31/24 19:56 03/31/24 22:00 03/31/24 23:20 Temperature 36.6 C Pulse Rate 87 84 89 Respiratory Rate 20 20 20 Blood Pressure 124/60 Pulse Oximetry 100 98 Oxygen Delivery Autopap Fraction of Inspired Oxygen 04/01/24 02:34 04/01/24 02:34 04/01/24 06:00 Temperature 36.4 C Pulse Rate 85 85 87 Respiratory Rate 17 17 20 Blood Pressure 131/82 Pulse Oximetry 97 100 Oxygen Delivery Autopap Fraction of Inspired Oxygen 04/01/24 07:55 04/01/24 07:55 04/01/24 08:06 Temperature Pulse Rate 83 83 85 Respiratory Rate 20 20 20 Blood Pressure Pulse Oximetry 99 Oxygen Delivery Room Air Fraction of Inspired Oxygen 04/01/24 08:51 04/01/24 09:01 04/01/24 09:15 Temperature 36.6 C Pulse Rate 90 83 89 Respiratory Rate 15 Blood Pressure 130/79 132/82 122/72 Pulse Oximetry 98 Oxygen Delivery Fraction of Inspired Oxygen 04/01/24 09:30 04/01/24 09:45 04/01/24 10:00 Temperature Pulse Rate 96 92 100 Respiratory Rate Blood Pressure 110/77 115/73 91/71 L Pulse Oximetry Oxygen Delivery Fraction of Inspired Oxygen Intake/Output Intake/Output: Intake & Output 03/29/24 03/30/24 03/31/24 04/01/24 23:59 23:59 23:59 23:59 Intake Total 1521 263 9808 390 Output Total 1999 1200 Balance -170 -430 1680 390 Meds/Results Medications: Active Medications Generic Name Dose Route Start Last Admin Trade Name Freq PRN Reason Stop Dose Admin Acetaminophen 500 mg 03/25/24 13:28 03/31/24 20:39 Acetaminophen 500 Mg Tablet PO 500 mg QID PRN Administration Fever Or Pain 1-3 Albuterol 2 puff 03/25/24 22:34 Albuterol Sulfate (*Sp) Aerosol 1 Puff INHALATION QIDRT PRN Shortness Of Breath Albuterol/Ipratropium 3 ml 03/25/24 14:00 04/01/24 07:52 Ipratropium 0.5 Mg/Albuterol Sulfate 2.5 Mg Ampul.Neb 3 Ml INHALATION 3 ml Q6HRT JAZMIN Administration Artificial Tears 1 drop 03/25/24 13:28 Artificial Tears Ophth Soln 15 Ml Bottle EACH EYE TID PRN Dry Eyes Aspirin 81 mg 03/26/24 09:00 03/31/24 09:57 Aspirin 81 Mg Enteric Tablet PO 81 mg DAILY JAZMIN Administration Atorvastatin Calcium 40 mg 03/25/24 21:00 03/31/24 20:37 Atorvastatin 40 Mg Tablet PO 40 mg HS JAZMIN Administration Bisacodyl 5 mg 03/28/24 22:02 03/28/24 22:28 Bisacodyl 5 Mg Tablet Ec PO 5 mg QAM PRN Administration Constipation Budesonide 0.5 mg 03/29/24 20:00 04/01/24 07:52 Budesonide Respule Neb 0.5 Mg/2 Ml Amp INHALATION 0.5 mg Q12HRT JAZMIN Administration Calcium Acetate 667 mg 03/25/24 17:00 03/31/24 16:15 Calcium Acetate 667 Mg Tablet PO 667 mg BIDWM JAZMIN Administration Cinacalcet 60 mg 03/27/24 09:00 03/29/24 09:32 Cinacalcet 30 Mg Tablet PO 60 mg [id number]@0900 JAZMIN Administration Clopidogrel Bisulfate 75 mg 03/30/24 09:00 03/31/24 09:57 Clopidogrel Bisulfate 75 Mg Tablet PO 75 mg DAILY JAZMIN Administration Dextrose 12.5 gm 03/25/24 13:22 Dextrose 50% 25 Gm/50 Ml Syringe IV PUSH PRN PRN Hypoglycemia Protocol Digoxin 125 mcg 03/28/24 09:00 03/31/24 10:06 Digoxin Tab 125 Mcg Tablet PO 125 mcg SuTh@0900 JAZMIN Administration Epoetin Daniele-epbx 10,000 units 04/01/24 19:00 Epoetin Daniele-Epbx 10,000 Units/Ml Vial IV PUSH 04/01/24 19:01 ONCE ONE Fluoxetine HCl 10 mg 03/26/24 09:00 03/31/24 09:58 Fluoxetine Hcl 10 Mg Capsule PO 10 mg DAILY JAZMIN Administration Fluticasone Propionate 2 spray 03/26/24 09:00 04/01/24 08:16 Fluticasone Propionate 0.05% Na Spr 16 Gm Btl (*Bkc) NASAL 2 spray DAILY JAZMIN Administration Gabapentin 200 mg 03/25/24 17:00 03/31/24 16:14 Gabapentin 100 Mg Capsule PO 200 mg BID JAZMIN Administration Glucagon 1 mg 03/25/24 13:22 Glucagon For Inj 1 Mg Vial IM PRN PRN Hypoglycemia Protocol Glucose 15 gm 03/25/24 13:22 03/30/24 16:45 Glucose Oral Gel 15 Gm Of Glucse In 37.5 Gm Tube PO 15 gm PRN PRN Administration Hypoglycemia Protocol Guaifenesin 1,200 mg 03/27/24 21:00 03/31/24 20:37 Guaifenesin 12 Hr 600 Mg Tabcr PO 1,200 mg Q12HR JAZMIN Administration Dextrose 1,000 mls @ 100 mls/hr 03/25/24 13:22 Dextrose 5% 1,000 Ml IVPB PRN PRN Hypoglycemia Protocol Albumin Human 50 mls @ 999 mls/hr 03/27/24 06:00 03/30/24 13:45 Albutein IVPB 04/26/24 05:59 999 mls/hr Q10M PRN Administration HYPOTENSION Cefepime HCl 1 gm in 50 mls @ 100 mls/hr 03/28/24 18:00 03/31/24 17:52 Maxipime 1 Gm/Ns 50 Ml IVPB 100 mls/hr DAILY@1800 JAZMIN Administration Insulin Aspart 3 - 6 units 03/25/24 17:00 02/09/25 17:51 Insulin Aspart (*Bkc) 100 Units/Ml SUB-Q Not Given TIDWM [facility] Protocol Latanoprost 1 drop 03/25/24 21:00 03/31/24 20:37 Latanoprost 0.005% Op Soln 2.5 Ml Btl EACH EYE 1 drop HS JAZMIN Administration Lidocaine 1 patch 03/26/24 09:00 03/31/24 09:58 Lidocaine 5% Patch TRANSDERM 1 patch DAILY JAZMIN Administration Midodrine 15 mg 03/25/24 17:00 04/01/24 08:14 Midodrine Hcl 2.5 Mg Tablet PO 15 mg TIDWM JAZMIN Administration Montelukast Sodium 10 mg 03/25/24 21:00 03/31/24 20:37 Montelukast Sodium 10 Mg Tablet PO 10 mg HS JAZMIN Administration Ondansetron HCl 4 mg 03/29/24 11:22 03/29/24 11:37 Ondansetron Inj 4 Mg/2 Ml Vial IV PUSH 4 mg Q6H PRN Administration Nausea And Vomiting Oxycodone HCl 5 mg 03/25/24 13:28 03/29/24 04:43 Oxycodone Hcl (*Crx) 5 Mg Tab Ir PO 5 mg Q6H PRN Administration Pain Rated 4-10 Pantoprazole Sodium 40 mg 03/25/24 17:00 03/31/24 16:15 Pantoprazole 40 Mg Tablet PO 40 mg BID JAZMIN Administration Perflutren Lipid Microsphere 0 ml 03/29/24 12:42 Perflutren Lipid Microspheres 1.5 Ml Vial Diluted To 10 Ml Total Volume IV PUSH 04/01/24 12:43 ONCE PRN adequate visualization Protocol Tizanidine HCl 2 mg 03/25/24 13:28 03/29/24 04:44 Tizanidine Hcl 2 Mg Tablet PO 2 mg TID PRN Administration Muscle Spasm Vitamin B Complex/Folic Acid 1 cap 03/26/24 09:00 03/31/24 09:56 Vitamin B Cmplx/Vit C/Folic Ac 1 Capsule PO 1 cap QAM JAZMIN Administration Vitamin D 3,000 units 03/26/24 09:00 03/31/24 09:57 Cholecalciferol 1,000 Units Tablet PO 3,000 units DAILY JAZMIN Administration Radiology Results: ITS Impressions Chest CT 03/25/24 10:53 IMPRESSION: 1. Scattered chronic interstitial lung disease in both lungs which include multiple tiny calcified nodules consistent with either sequela of old granulomatous disease or potentially dystrophic calcification related to renal osteodystrophy. 2. Cardiomegaly. 3. Small sliding-type hiatal hernia. 4. Nephrolithiasis versus atherosclerotic calcifications at the visualized portion of the upper pole the right kidney. Thoracic Spine X-Ray 03/25/24 14:10 IMPRESSION: No acute fracture or traumatic malalignment detected in the thoracic spine. Chest X-Ray 04/01/24 08:45 Impression: Clear lungs. Stable cardiomegaly with left atrial closure device. Stable support line. Labs Labs: Laboratory Results - last 24 hr 03/31/24 03/31/24 03/31/24 12:04 16:43 21:06 WBC RBC Hgb Hct MCV MCH MCHC RDW Plt Count MPV Immature Gran % (Auto) Neut % (Auto) Lymph % (Auto) [place] % (Auto) Eos % (Auto) Baso % (Auto) Lymph # (Auto) [place] # (Auto) Eos # (Auto) Baso # (Auto) Abs Immat Gran (auto) Absolute Neuts (auto) Absolute Nucleated RBC Nucleated RBC % Atypical Lymphocytes Platelet Estimate Hypochromasia Schistocytes Sodium Potassium Chloride Carbon Dioxide Anion Gap BUN Creatinine Estim Creat Clear Calc Estimated GFR Glucose POC Capillary Glucose 126 H 131 H 169 H Calcium Total Bilirubin AST ALT Alkaline Phosphatase NT-Pro-B Natriuret Pep Total Protein Albumin 04/01/24 04/01/24 07:20 07:52 WBC 13.0 H RBC 3.39 L Hgb 9.3 L Hct 31.9 L MCV 94.1 MCH 27.4 MCHC 29.2 L RDW 17.6 H Plt Count 273 MPV 10.0 Immature Gran % (Auto) 1.8 H Neut % (Auto) 64.7 Lymph % (Auto) 19.2 [place] % (Auto) 8.0 Eos % (Auto) 6.0 H Baso % (Auto) 0.3 Lymph # (Auto) 2.50 [place] # (Auto) 1.0 H Eos # (Auto) 0.8 H Baso # (Auto) 0.0 Abs Immat Gran (auto) 0.23 H Absolute Neuts (auto) 8.4 H Absolute Nucleated RBC 0.040 H Nucleated RBC % 0.3 H Atypical Lymphocytes Present Platelet Estimate Adequate Hypochromasia 1+ Schistocytes None seen Sodium 142 Potassium 4.4 Chloride 100 Carbon Dioxide 21 L Anion Gap 21 H BUN 54 H D Creatinine 10.61 H Estim Creat Clear Calc 4 Estimated GFR 4 L Glucose 86 POC Capillary Glucose 85 Calcium 8.6 Total Bilirubin 1.7 H AST 18 ALT 10 Alkaline Phosphatase 91 NT-Pro-B Natriuret Pep > 20408 H Total Protein 8.0 Albumin 4.3
--- NOTE | 2024-04-01 10:17 | PCPTNOTE ---
Pt out of room for dialysis. Unable to see at this time. PT will continue to follow per POC.
--- NOTE | 2024-04-01 11:25 | P.PNNP_ITS ---
Progress Note: A&P Assessment and Plan (1) End stage renal disease: Code(s): N18.6 - End stage renal disease Status: Chronic Assessment and Plan: * HD today * continue Monday/Monday/Monday dialysis schedule * follow electrolytes, volume status, and clearance (2) Shortness of breath: Code(s): R06.02 - Shortness of breath Status: Acute Assessment and Plan: * as noted on presentation * acute worsening noted 1 week after influenza diagnosis * known history of asthma and reactive airway disease * imaging noted: * CXR: new airspace opacity lateral left lower lung zone which could be due to atelectasis, pneumonia, paracardial fat pad or some combination thereof and cardiomegaly * CT of chest: scattered chronic interstitial lung disease in both lungs which include multiple tiny calcified nodules consistent with either sequela of old granulomatous disease or potentially dystrophic calcification related to renal osteodystrophy * no fevers or leukocytosis * some clinical improvement with bronchodilators, inhalers, and steroids along with antibiotics; off steroids * blood culture with Enterobacter (1 out of 2) * on antibiotics * Pulmonary recommendations reviewed * s/p DUF session (on 03/30) * continue supportive therapy (3) Combined systolic and diastolic congestive heart failure: Code(s): I50.40 - Unspecified combined systolic (congestive) and diastolic (congestive) heart failure Status: Acute Assessment and Plan: * attempting to maintain euvomeia with fluid removal with HD * recent Echo noted (03/30): * left ventricular systolic function is severely reduced, estimated at 25-30% * left atrial chamber dimension is severely enlarged * mild aortic valve sclerosis. * mitral valve has mildly calcified annulus * moderate to severe mitral valve regurgitation * mild tricuspid valve regurgitation * mild pulmonary hypertension, estimated pulmonary arterial systolic pressure is 47 mmHg * trace pulmonic regurgitation * Cardiology consulted (4) Anemia: Code(s): D64.9 - Anemia, unspecified Status: Chronic Assessment and Plan: * due to ESRD along with acute illness * B12 and folate normal; iron studies c/w anemia of chronic disease * SHERRI with HD * follow trend of H/H (5) Influenza: Code(s): J11.1 - Influenza due to unidentified influenza virus with other respiratory manifestations Status: Acute Assessment and Plan: * diagnosed with influenza 1 week prior to admission and completed a course of Tamiflu * repeat testing negative * continue supportive therapy (6) Obstructive sleep apnea: Code(s): G47.33 - Obstructive sleep apnea (adult) (pediatric) Status: Acute Assessment and Plan: * continue CPAP at night and with naps (7) Type II diabetes mellitus: Code(s): E11.9 - Type 2 diabetes mellitus without complications Status: Acute Assessment and Plan: * noted in the past but now diet controlled * previous hyperglycemia noted with steroid use * glycemic control per hospitalists Not opposed to discharge tomorrow from renal perspective if otherwise medically stable. Will continue to follow. L Subjective Date/time seen: 04/01/24 11:25 Interval history: Follow-up for end stage renal disease on hemodialysis. Tolerating dialysis treatment at the time of my visit (seen on HD at 11:15AM); no apparent distress noted (reading book when seen on dialysis); breathing/respiratory status appears stable if not better per patient report although still has a productive cough; no other acute issues/events overnight or earlier this morning. Exam 2 Narrative: General: WD/WN female in NAD Heart: normal S1 and S2; no rub Lungs: clear anteriorly; decreased at the bases Abdomen: soft, nontender, nondistended, positive bowel sounds Extremities: no cyanosis or clubbing; no edema Skin: warm and intact Objective Data Vital Signs Vital Signs: Vital Signs Temp Pulse Resp BP Pulse Ox O2 Del Method FiO2 04/01/24 11:15 52 L 162/115 H 04/01/24 11:00 63 92/51 L 04/01/24 10:45 50 L 103/58 L 04/01/24 10:30 72 142/66 H 04/01/24 10:15 102 H 111/79 04/01/24 10:00 100 91/71 L 04/01/24 09:45 92 115/73 04/01/24 09:30 96 110/77 04/01/24 09:15 89 122/72 04/01/24 09:01 83 132/82 04/01/24 08:51 97.9 F 90 15 130/79 98 04/01/24 08:06 85 20 04/01/24 07:55 83 20 04/01/24 07:55 83 20 99 Room Air 04/01/24 06:00 97.6 F 87 20 131/82 100 04/01/24 02:34 85 17 04/01/24 02:34 85 17 97 Autopap 03/31/24 23:20 89 20 98 Autopap 03/31/24 22:00 97.9 F 84 20 124/60 100 03/31/24 19:56 87 20 03/31/24 19:44 89 20 03/31/24 19:44 100 Room Air 21 Intake/Output Intake/Output: Intake & Output 03/29/24 03/30/24 03/31/24 04/01/24 23:59 23:59 23:59 23:59 Intake Total 7694 310 7966 1127 Output Total 1999 1200 1554 Balance -170 430 3000 427 Meds/Results Medications: Active Medications Generic Name Dose Route Start Last Admin Trade Name Freq PRN Reason Stop Dose Admin Acetaminophen 500 mg 03/25/24 13:28 03/31/24 20:39 Acetaminophen 500 Mg Tablet PO 500 mg QID PRN Administration Fever Or Pain 1-3 Albuterol 2 puff 03/25/24 22:34 Albuterol Sulfate (*Sp) Aerosol 1 Puff INHALATION QIDRT PRN Shortness Of Breath Albuterol/Ipratropium 3 ml 03/25/24 14:00 04/01/24 14:12 Ipratropium 0.5 Mg/Albuterol Sulfate 2.5 Mg Ampul.Neb 3 Ml INHALATION 3 ml Q6HRT JAZMIN Administration Artificial Tears 1 drop 03/25/24 13:28 Artificial Tears Ophth Soln 15 Ml Bottle EACH EYE TID PRN Dry Eyes Aspirin 81 mg 03/26/24 09:00 04/01/24 14:08 Aspirin 81 Mg Enteric Tablet PO Not Given DAILY JAZMIN Atorvastatin Calcium 40 mg 03/25/24 21:00 03/31/24 20:37 Atorvastatin 40 Mg Tablet PO 40 mg HS JAZMIN Administration Bisacodyl 5 mg 03/28/24 22:02 03/28/24 22:28 Bisacodyl 5 Mg Tablet Ec PO 5 mg QAM PRN Administration Constipation Budesonide 0.5 mg 03/29/24 20:00 04/01/24 07:52 Budesonide Respule Neb 0.5 Mg/2 Ml Amp INHALATION 0.5 mg Q12HRT JAZMIN Administration Calcium Acetate 667 mg 03/25/24 17:00 04/01/24 17:04 Calcium Acetate 667 Mg Tablet PO 667 mg BIDWM JAZMIN Administration Cinacalcet 60 mg 03/27/24 09:00 04/01/24 14:09 Cinacalcet 30 Mg Tablet PO Not Given MoWeFr@0900 JAZMIN Clopidogrel Bisulfate 75 mg 03/30/24 09:00 04/01/24 14:09 Clopidogrel Bisulfate 75 Mg Tablet PO Not Given DAILY JAZMIN Dextrose 12.5 gm 03/25/24 13:22 Dextrose 50% 25 Gm/50 Ml Syringe IV PUSH PRN PRN Hypoglycemia Protocol Digoxin 125 mcg 03/28/24 09:00 03/31/24 10:06 Digoxin Tab 125 Mcg Tablet PO 125 mcg SuTh@0900 JAZMIN Administration Epoetin Daniele-epbx 10,000 units 04/01/24 19:00 Epoetin Daniele-Epbx 10,000 Units/Ml Vial IV PUSH 04/01/24 19:01 ONCE ONE Fluoxetine HCl 10 mg 03/26/24 09:00 04/01/24 14:09 Fluoxetine Hcl 10 Mg Capsule PO Not Given DAILY JAZMIN Fluticasone Propionate 2 spray 03/26/24 09:00 04/01/24 08:16 Fluticasone Propionate 0.05% Na Spr 16 Gm Btl (*Bkc) NASAL 2 spray DAILY JAZMIN Administration Gabapentin 200 mg 03/25/24 17:00 04/01/24 17:03 Gabapentin 100 Mg Capsule PO 200 mg BID JAZMIN Administration Glucagon 1 mg 03/25/24 13:22 Glucagon For Inj 1 Mg Vial IM PRN PRN Hypoglycemia Protocol Glucose 15 gm 03/25/24 13:22 03/30/24 16:45 Glucose Oral Gel 15 Gm Of Glucse In 37.5 Gm Tube PO 15 gm PRN PRN Administration Hypoglycemia Protocol Guaifenesin 1,200 mg 03/27/24 21:00 04/01/24 14:09 Guaifenesin 12 Hr 600 Mg Tabcr PO Not Given Q12HR JAZMIN Dextrose 1,000 mls @ 100 mls/hr 03/25/24 13:22 Dextrose 5% 1,000 Ml IVPB PRN PRN Hypoglycemia Protocol Albumin Human 50 mls @ 999 mls/hr 03/27/24 06:00 03/30/24 13:45 Albutein IVPB 04/26/24 05:59 999 mls/hr Q10M PRN Administration HYPOTENSION Insulin Aspart 3 - 6 units 03/25/24 17:00 04/01/24 17:10 Insulin Aspart (*Bkc) 100 Units/Ml SUB-Q 3 units TIDWM JAZMIN Administration Protocol Latanoprost 1 drop 03/25/24 21:00 03/31/24 20:37 Latanoprost 0.005% Op Soln 2.5 Ml Btl EACH EYE 1 drop HS JAZMIN Administration Levofloxacin 750 mg 04/01/24 18:00 Levofloxacin 750 Mg Tablet PO 04/01/24 18:01 ONCE ONE Levofloxacin 500 mg 04/03/24 18:00 Levofloxacin 500 Mg Tablet PO 04/03/24 18:01 ONCE ONE Lidocaine 1 patch 03/26/24 09:00 04/01/24 14:09 Lidocaine 5% Patch TRANSDERM Not Given DAILY [facility] Midodrine 15 mg 03/25/24 17:00 04/01/24 17:04 Midodrine Hcl 2.5 Mg Tablet PO 15 mg TIDWM JAZMIN Administration Montelukast Sodium 10 mg 03/25/24 21:00 03/31/24 20:37 Montelukast Sodium 10 Mg Tablet PO 10 mg HS JAZMIN Administration Ondansetron HCl 4 mg 03/29/24 11:22 03/29/24 11:37 Ondansetron Inj 4 Mg/2 Ml Vial IV PUSH 4 mg Q6H PRN Administration Nausea And Vomiting Oxycodone HCl 5 mg 03/25/24 13:28 03/29/24 04:43 Oxycodone Hcl (*Crx) 5 Mg Tab Ir PO 5 mg Q6H PRN Administration Pain Rated 4-10 Pantoprazole Sodium 40 mg 03/25/24 17:00 04/01/24 17:05 Pantoprazole 40 Mg Tablet PO 40 mg BID JAZMIN Administration Tizanidine HCl 2 mg 03/25/24 13:28 03/29/24 04:44 Tizanidine Hcl 2 Mg Tablet PO 2 mg TID PRN Administration Muscle Spasm Vitamin B Complex/Folic Acid 1 cap 03/26/24 09:00 04/01/24 14:10 Vitamin B Cmplx/Vit C/Folic Ac 1 Capsule PO Not Given QAM [facility] Vitamin D 3,000 units 03/26/24 09:00 04/01/24 14:08 Cholecalciferol 1,000 Units Tablet PO Not Given DAILY JAZMIN Radiology Results: ITS Impressions Chest CT 03/25/24 10:53 IMPRESSION: 1. Scattered chronic interstitial lung disease in both lungs which include multiple tiny calcified nodules consistent with either sequela of old granulomatous disease or potentially dystrophic calcification related to renal osteodystrophy. 2. Cardiomegaly. 3. Small sliding-type hiatal hernia. 4. Nephrolithiasis versus atherosclerotic calcifications at the visualized portion of the upper pole the right kidney. Thoracic Spine X-Ray 03/25/24 14:10 IMPRESSION: No acute fracture or traumatic malalignment detected in the thoracic spine. Chest X-Ray 04/01/24 08:45 Impression: Clear lungs. Stable cardiomegaly with left atrial closure device. Stable support line. Labs Labs: Laboratory Tests 04/01/24 07:20 04/01/24 07:20 Calcium 8.6 Total Bilirubin 1.7 H AST 18 ALT 10 Alkaline Phosphatase 91 NT-Pro-B Natriuret Pep > 33328 H Total Protein 8.0 Albumin 4.3
--- NOTE | 2024-04-01 11:58 | PM.CNCAR ---
Assessment and Plan Assessment and plan (1) Non-ischemic cardiomyopathy: Code(s): I42.8 - Other cardiomyopathies Status: Acute (2) Afib: Code(s): I48.91 - Unspecified atrial fibrillation Status: Acute (3) Hyperlipidemia: Code(s): E78.5 - Hyperlipidemia, unspecified Status: Acute Plan 68-year-old woman with ESRD on HD, congestive heart failure (LVEF 30-35%), paroxysmal atrial fibrillation status post Watchman now on dual anti-platelet therapy, diabetes, and LENORA initially presented with shortness of breath and admitted for pneumonia Chronic systolic heart failure -unable to dependence on midodrine at this time -recommend outpatient for initiation of guideline directed medical therapy and weaning of midodrine Paroxysmal atrial fibrillation status post Watchman -continue dual anti-platelet therapy and outpatient re-evaluation on when to stop Plavix -she is on her home dose digoxin and should have outpatient monitoring of her digoxin levels given her ESRD condition Hyperlipidemia -continue atorvastatin 40 mg every evening Cardiology will sign off as patient will follow-up for re-evaluation in the outpatient setting. No further inpatient cardiac workup warranted History of Present Illness History of Present Illness Consult date/time: 04/01/24 11:58 Reason For Visit: Pneumonia Narrative: 68-year-old woman with ESRD on HD, congestive heart failure (LVEF 30-35%), paroxysmal atrial fibrillation status post Watchman now on dual anti-platelet therapy, diabetes, and LENORA initially presented with shortness of breath and admitted for pneumonia. She denies orthopnea and feels her shortness of breath has significantly improved since her admission. She denies any chest discomfort. She lives at home by herself and is able to take care of it activities of daily living without significant cardiopulmonary limitations. Review of Systems Cardiovascular: Cardiovascular: Reports as per HPI Respiratory: Respiratory: Reports as per HPI [facility] Past Medical History Medical History (Updated 03/25/24 @ 13:10 by Saul العلي MD) Hx of completed stroke 10/05/23 small left occipital lobe stroke after c-spine surgery Chronic hypotension Chronic obstructive pulmonary disease Hypotension On midodrine. Chronic anticoagulation Renal osteodystrophy Combined systolic and diastolic congestive heart failure Echo 10/2012: severe LV enlargement, moderate LV dysfunction with wall motion abnormality at the inferior basal segment, EF 44%, grade 2 diastolic dysfunction. Non-ischemic cardiomyopathy Negative cardiac catheterization showing no obstructive coronary disease in 2003 at [facility]. EF at that time was 20% but has improved to 54% in 02/2015. Chronic anemia History of blood transfusions. Hypothyroidism Gout Kidney stones Peptic ulcer (07/2003) Gastroesophageal reflux disease Deep venous thrombosis (02/2013) Paroxysmal atrial fibrillation s/p Watchman Obstructive sleep apnea End-stage renal disease on hemodialysis (09/2009) Type II diabetes mellitus Complicated by peripheral neuropathy and nephropathy. Asthma Diverticulosis Anxiety Hyperlipidemia Surgical History Surgical History (Updated 03/25/24 @ 12:52 by Saul العلي MD) Hx of cervical spine surgery C3-C6 laminectomies, C2-C7 instrumented posterior spinal fusion on 10/05/23 at [facility] Presence of Watchman left atrial appendage closure device 02/08/24 History of colonoscopy with polypectomy History of cardiac catheterization (08/20/13) Normal coronary arteries per Dr. Oliveros at [facility]. Status post creation of arteriovenous fistula Left forearm. History of parathyroidectomy History of cystoscopy (03/2012) History of sleeve gastrectomy (2013) History of cardiac radiofrequency ablation (1993) For SVT. History of mandibular surgery (1987) For TMJ. History of angioplasty History of myomectomy History of cholecystectomy (2014) History of section History of hysterectomy (1993) Family History Family History Mother Hypertension Family history of congestive heart failure Family history of congenital heart disease Family history of arthritis Family history of kidney disease Family history of chronic obstructive pulmonary disease Father Carcinoma of colon Sibling Family history of diabetes mellitus in first degree relative Grandparent Family history of congestive heart failure Diabetes mellitus Father Carcinoma of colon Mother Diabetes mellitus Acute myocardial infarction Hypertension Hyperlipidemia Grandparent Diabetes mellitus Acute myocardial infarction Stomach cancer Other Family history of cardiovascular disease Social History Social History (Updated 03/25/24 @ 12:45 by Saul العلي MD) Social History: Lives alone. Never smoker. No alcohol use. No drug use or hx of drug use. No pets. Surrogate decision maker: Sara Tobin Code status: Full code. Smoking status: Never smoker Second hand tobacco smoke exposure: No Alcohol intake: never Substance use: never Substance use type: does not use Do You Feel Safe in your Home?: Yes Lack of Transportation: No Lack of Food: Sometimes True Current Housing: I Have Housing Concerned About Future Housing: No Difficulty Paying Gas/Electric Bills: No Difficulty Paying for Meds: No Currently Unemployed: No Education: Decline to Answer Difficulty w/ Childcare or Family Care: No Additional living arrangements comments: Lives in [place]. 3 grown children. 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 Spiritual care concerns: No Meds Home Medications and Allergies Home Medications ?Medication ?Instructions ?Recorded ?Confirmed ?Type calcium acetate(phosphat bind) 667 667 mg PO BIDWM #60 tabs 04/25/23 03/25/24 Rx mg tablet lidocaine 4 % topical patch 1 patch topical DAILY #30 ea 04/25/23 03/25/24 Rx (Lidocaine Pain Relief) vitamin B complex-vitamin C-folic 1 tablet PO DAILY #30 tabs 04/25/23 03/25/24 Rx acid 0.8 mg tablet (Dialyvite 800) acetaminophen 500 mg tablet 500 mg PO QID PRN Fever Or Pain 10/18/23 03/25/24 History cholecalciferol (vitamin D3) 25 3,000 unit PO DAILY 10/18/23 03/25/24 History mcg (1,000 unit) tablet (Vitamin D3) cinacalcet 30 mg tablet (Sensipar) 60 mg PO QMWF 10/18/23 03/25/24 History fluoxetine 10 mg capsule (Prozac) 10 mg PO DAILY 10/18/23 03/25/24 History midodrine 5 mg tablet 15 mg PO TIDWMEAL 10/18/23 03/25/24 History atorvastatin 40 mg tablet 40 mg PO HS 30 days #30 tabs 11/03/23 03/25/24 Rx digoxin 125 mcg (0.125 mg) tablet 125 mcg PO SuTh 30 days #9 tabs 11/03/23 03/25/24 Rx fluticasone propionate 50 2 spray intranasal DAILY 30 days 11/03/23 03/25/24 Rx mcg/actuation nasal #16 grams spray,suspension latanoprost 0.005 % eye drops 1 drp EACH EYE HS 30 days #2.5 mL 11/03/23 03/25/24 Rx (Xalatan) montelukast 10 mg tablet 10 mg PO HS 30 days #30 tabs 11/03/23 03/25/24 Rx (Singulair) oxycodone 5 mg tablet 5 mg PO Q6H PRN Pain Rated 4-10 11/03/23 03/25/24 Rx #28 tabs peg [id number] 1 1 drp EACH EYE TID PRN Dry Eyes 30 11/03/23 03/25/24 Rx %-0.2 %-0.2 % eye drops days #15 mL (Artificial Tears ([id number])) tizanidine 2 mg tablet 2 mg PO TID PRN Muscle Spasm #30 11/03/23 03/25/24 Rx tabs aspirin 81 mg tablet,delayed 81 mg PO DAILY 03/25/24 03/25/24 History release (Adult Aspirin Regimen) gabapentin 100 mg capsule 200 mg PO BID 03/25/24 03/25/24 History lanthanum 1,000 mg chewable tablet 1,000 mg PO .with meals 03/25/24 03/25/24 History omeprazole 20 mg capsule,delayed 20 mg PO BID 03/25/24 03/25/24 History release clopidogrel 75 mg tablet 75 mg PO DAILY 03/28/24 03/28/24 History Allergies Allergy/AdvReac Type Severity Reaction Status Date / Time lisinopril Allergy Unknown Unknown Verified 03/25/24 16:07 propoxyphene Allergy Unknown Unknown Verified 03/25/24 16:07 valsartan Allergy Unknown lost voice Verified 03/25/24 16:07 Vital Signs Vital Signs - 24 hr 03/31/24 14:00 03/31/24 14:21 03/31/24 14:21 Temperature 36.6 C Pulse Rate 91 94 94 Respiratory Rate 14 20 20 Blood Pressure 136/77 Pulse Oximetry 100 94 Oxygen Delivery Room Air Fraction of Inspired Oxygen 03/31/24 14:30 03/31/24 19:44 03/31/24 19:44 Temperature Pulse Rate 87 89 Respiratory Rate 20 20 Blood Pressure Pulse Oximetry 100 Oxygen Delivery Room Air Fraction of Inspired Oxygen 21 03/31/24 19:56 03/31/24 22:00 03/31/24 23:20 Temperature 36.6 C Pulse Rate 87 84 89 Respiratory Rate 20 20 20 Blood Pressure 124/60 Pulse Oximetry 100 98 Oxygen Delivery Autopap Fraction of Inspired Oxygen 04/01/24 02:34 04/01/24 02:34 04/01/24 06:00 Temperature 36.4 C Pulse Rate 85 85 87 Respiratory Rate 17 17 20 Blood Pressure 131/82 Pulse Oximetry 97 100 Oxygen Delivery Autopap Fraction of Inspired Oxygen 04/01/24 07:55 04/01/24 07:55 04/01/24 08:06 Temperature Pulse Rate 83 83 85 Respiratory Rate 20 20 20 Blood Pressure Pulse Oximetry 99 Oxygen Delivery Room Air Fraction of Inspired Oxygen 04/01/24 08:51 04/01/24 09:01 04/01/24 09:15 Temperature 36.6 C Pulse Rate 90 83 89 Respiratory Rate 15 Blood Pressure 130/79 132/82 122/72 Pulse Oximetry 98 Oxygen Delivery Fraction of Inspired Oxygen 04/01/24 09:30 04/01/24 09:45 04/01/24 10:00 Temperature Pulse Rate 96 92 100 Respiratory Rate Blood Pressure 110/77 115/73 91/71 L Pulse Oximetry Oxygen Delivery Fraction of Inspired Oxygen 04/01/24 10:15 04/01/24 10:30 04/01/24 10:45 Temperature Pulse Rate 102 H 72 50 L Respiratory Rate Blood Pressure 111/79 142/66 H 103/58 L Pulse Oximetry Oxygen Delivery Fraction of Inspired Oxygen 04/01/24 11:00 04/01/24 11:15 04/01/24 11:30 Temperature Pulse Rate 63 52 L 63 Respiratory Rate Blood Pressure 92/51 L 162/115 H 101/47 L Pulse Oximetry Oxygen Delivery Fraction of Inspired Oxygen 04/01/24 11:45 Temperature Pulse Rate 60 Respiratory Rate Blood Pressure 94/63 L Pulse Oximetry Oxygen Delivery Fraction of Inspired Oxygen Exam Const: General: comfortable HENMT: Mouth: Yes moist mucous membranes Eyes: EOM: EOMs intact bilaterally Neck: Neck: no JVD Resp: Effort & Inspection: normal respiratory effort Auscultation: clear to auscultation bilaterally Cardio: Rate: regular rate Rhythm: regular rhythm Neuro: Speech: normal speech Extrem: General: no pedal edema Results Labs and Meds 04/01/24 07:20 04/01/24 07:20 Lab results: Cardiac Enzymes 04/01/24 Range/Units 07:20 AST 18 (14-36) U/L CBC 04/01/24 Range/Units 07:20 WBC 13.0 H (4.5-10.0) K/mm3 RBC 3.39 L (4.2-5.4) M/mm3 Hgb 9.3 L (12.0-15.0) g/dL Hct 31.9 L (37.0-47.0) % Plt Count 273 (150-375) k/mm3 Lymph # (Auto) 2.50 (0.9-3.2) K/mm3 [place] # (Auto) 1.0 H (0.1-0.6) K/mm3 Eos # (Auto) 0.8 H (0-0.3) K/mm3 Baso # (Auto) 0.0 (0.0-0.1) K/mm3 Comprehensive Metabolic Panel 04/01/24 Range/Units 07:20 Sodium 142 (137-145) mmol/L Potassium 4.4 (3.4-5.0) mmol/L Chloride 100 (98-107) mmol/L Carbon Dioxide 21 L (22-30) mmol/L BUN 54 H D (7-17) mg/dL Creatinine 10.61 H (0.7-1.0) mg/dL Glucose 86 (65-110) mg/dL Calcium 8.6 (8.4-10.2) mg/dL AST 18 (14-36) U/L ALT 10 (6-35) U/L Alkaline Phosphatase 91 (38-126) U/L Total Protein 8.0 (6.3-8.2) g/dL Albumin 4.3 (3.5-5.1) g/dL Intake and Output 03/31/24 04/01/24 04/01/24 23:59 07:59 15:59 Intake Total 650 150 240 Balance 650 150 240 Intake: Oral 650 150 240 Patient Weight 04/01/24 23:59 Weight 70.1 kg
--- NOTE | 2024-04-01 13:50 | PCOTNOTE ---
Attempted to see Patient this afternoon. Patient back from dialysis, states she is tired and has already performed her activities for the day. Patient states she will complete tomorrow with therapy.
[2024-04-01 16:55] LABS: Glucose Point of Care 204 mg/dl (65-105)
[2024-04-01] MEDS: GABAPENTIN 100 MG CAPSULE 200 MG PO (17:03)
[2024-04-01] MEDS: CALCIUM ACETATE 667 MG TABLET PO (17:04)
[2024-04-01] MEDS: PANTOPRAZOLE 40 MG TABLET PO (17:05)
[2024-04-01] MEDS: INSULIN ASPART (*BKC) 100 UNITS/ML SUB-Q (17:10)
[2024-04-01] MEDS: levoFLOXacin 750 MG TABLET PO (17:37)
[2024-04-01 21:35] LABS: Glucose Point of Care 87 mg/dl (65-105)
[2024-04-01] MEDS: MONTELUKAST SODIUM 10 MG TABLET PO (21:37)
[2024-04-01] MEDS: LATANOPROST 0.005% OP SOLN 2.5 ML BTL 1 DROP EACH EYE (21:37)
[2024-04-01] MEDS: guaiFENesin 12 HR 600 MG TABCR 1200 MG PO (21:37)
[2024-04-01] MEDS: ATORVASTATIN 40 MG TABLET PO (21:37)
[2024-04-01] MEDS: LIDOCAINE 5% PATCH 1 PATCH TRANSDERM (22:24)
[2024-04-02] VITALS (9 sets, daily range): BP systolic 85–111; BP diastolic 48–73; PULSE 83–96; RESP 16–20; TEMP 35.6–35.8; O2SAT 98–100
[2024-04-02 06:47] LABS: Hematocrit 29.5 % (37.0-47.0); Hemoglobin 8.8 g/dL (12.0-15.0); Mean Corpuscular HGB Conc 29.8 g/dl (32-36); Mean Corpuscular Volume 93.9 fl (80-100); Mean Platelet Volume 10.3 fl (7.4-10.4); Platelet Count Result 252 k/mm3 (150-375); Red Blood Count 3.14 M/mm3 (4.2-5.4); Red Cell Distribution Width 18.2 % (11.5-14.5); White Blood Count 12.7 K/mm3 (4.5-10.0)
[2024-04-02] MEDS: IPRATROPIUM 0.5 MG/ALBUTEROL SULFATE 2.5 MG AMPUL.NEB 3 ML INHALATION ×2 (07:00→12:50)
[2024-04-02] MEDS: BUDESONIDE RESPULE NEB 0.5 MG/2 ML AMP INHALATION (07:01)
[2024-04-02 07:06] LABS: Alanine Aminotransferase 10 U/L (6-35); Alkaline Phosphatase 83 U/L (38-126); Anion Gap 17 mmol/L (4-12); Aspartate Amino Transferase 19 U/L (14-36); Bilirubin,Total 1.3 mg/dL (0.2-1.3); Blood Urea Nitrogen 39 mg/dL (7-17); Calcium 8.6 mg/dL (8.4-10.2); Carbon Dioxide 20 mmol/L (22-30); Chloride 103 mmol/L (98-107); Estimated CRCL calculation 6 ml/min; Estimated Glomerular Filt Rate 6; Glucose 86 mg/dL (65-110); Potassium 4.8 mmol/L (3.4-5.0); Sodium 140 mmol/L (137-145)
[2024-04-02 07:13] LABS: Anisocytosis 1+; Hypochromasia 2+; Platelet Estimate Adequate (Adequate); Polychromasia 1+; Schistocytes None Seen
[2024-04-02 08:03] LABS: Glucose Point of Care 70 mg/dl (65-105)
[2024-04-02 08:27] LABS: NT Pro B Type Natriuretic Pept 29000 pg/mL (19.9-100)
[2024-04-02] MEDS: LIDOCAINE 5% PATCH 1 PATCH TRANSDERM (08:30)
[2024-04-02] MEDS: CALCIUM ACETATE 667 MG TABLET PO ×2 (08:31→17:43)
[2024-04-02] MEDS: PANTOPRAZOLE 40 MG TABLET PO ×2 (08:32→17:43)
[2024-04-02] MEDS: TIZANIDINE HCL 2 MG TABLET PO (08:32)
[2024-04-02] MEDS: VITAMIN B CMPLX/VIT C/FOLIC AC 1 CAPSULE 1 CAP PO (08:32)
[2024-04-02] MEDS: guaiFENesin 12 HR 600 MG TABCR 1200 MG PO (08:32)
[2024-04-02] MEDS: CHOLECALCIFEROL 1,000 UNITS TABLET 3000 UNITS PO (08:32)
[2024-04-02] MEDS: ASPIRIN 81 MG ENTERIC TABLET PO (08:33)
[2024-04-02] MEDS: FLUTICASONE PROPIONATE 0.05% NA SPR 16 GM BTL (*BKC) 2 SPRAY NASAL (08:34)
[2024-04-02] MEDS: CLOPIDOGREL BISULFATE 75 MG TABLET PO (08:34)
[2024-04-02] MEDS: FLUoxetine HCL 10 MG CAPSULE PO (08:34)
[2024-04-02] MEDS: BISACODYL 5 MG TABLET EC PO (08:35)
--- NOTE | 2024-04-02 09:58 | PM.PNPUL ---
Progress Note: A&P Assessment and Plan (1) Asthma: Code(s): J45.909 - Unspecified asthma, uncomplicated Status: Acute Assessment and Plan: Patient is a never smoker and does not have COPD. She tells me she has asthma followed by her locksmith apprentice Dr. Tobin. She tells me she is on inhalers for asthma but none are listed on her home medication list. she tells me she takes Flovent 220 at 2 puffs b.i.d. with rescue albuterol use. When she is doing well she uses her rescue albuterol approximately 1 time per month. 03/29/24: Plan: currently the patient has wheezing. This may be related to asthma and/or fluid overload. Will continue DuoNebs q.6 hours. I will add nebulized budesonide 500 mcg twice a day. Patient is currently being treated for possible pneumonia. She received ceftriaxone 03/25 through 03/28. Azithromycin on 03/25 and doxycycline starting on 03/26 ( Day 5 azithromycin and doxycycline). I will send urine Legionella urine pneumococcal if she can provide urine and respiratory pathogen panel. I will send serum mycoplasma IgM. From a pulmonary perspective would continue 2 more days of doxycycline for total of 7 days. Would continue combination ceftriaxone and cefepime for total of 7 days although she will likely need cefepime longer given her Enterobacter cloaca a bacteremia. Repeat blood cultures to be drawn. pulmonary inpatient services will resume on 04/01/2024, call with questions. 04/01/24: Overall the patient tells me she has improved. She is 50-60% back to her normal. She still has shortness of breath and dyspnea on exertion. She denies fever. Her cough persists but is 50-60% better producing thin clear phlegm. The phlegm is normal for her. White blood cell 13.0. Creatinine 10.61, BUN 54. BNP greater than 30,000. chest x-ray with cardiomegaly, mild basilar interstitial infiltrates, no pleural effusions, no change from 03/29/2024. Patient tells me she wore the hospital auto PAP 6-16 with room air and did well. COVID, influenza, RSV RT PCR studies negative on 03/25/2024 and 03/29/2024 Plan: Patient has improved with treatment for fluid overload with dialysis on 03/29 with 2000 out and ultrafiltration on 03/30 with 1200 out. Her BNP remains > 30,000 with some perihilar edema but no significant pulmonary edema on her chest x-ray. She is scheduled to get hemodialysis today. She is also being treated for asthma with DuoNebs q.6 hours and budesonide 500 mcg b.i.d.. She has completed 5 days of azithromycin and doxycycline. She completed 4 days of ceftriaxone and is now on day 5 of cefepime for possible pneumonia. From a pulmonary perspective she no longer needs antibiotics. Continue guaifenesin 1200 mg p.o. b.i.d.. She did have Enterobacter cloacae from a blood culture on 03/25/2024 and blood cultures on 03/29/2024 x2 are negative. Respiratory pathogen panel pending. 04/02/24: patient tells me she is breathing normal. Her cough and phlegm production her back at her baseline. White blood cell count since 12.7, creatinine 7.63, BUN 39. Patient received ultrafiltration of 1.5 L off yesterday. BNP remains 29,000. she is on room air with saturations 99%. Patient tells me she feels good and is ready to go home today. From a pulmonary perspective patient is ready to be discharged on these pulmonary medications: Flovent 220 at 2 puffs b.i.d.. Rescue albuterol inhaler 2 puffs q.4 hours p.r.n. shortness of breath or wheezing. Rescue albuterol neb q.4 hours p.r.n. shortness of breath or wheezing. Montelukast 10 mg p.o. q.day Auto PAP 5-16 with room air when she naps or sleeps. I told the patient to call her locksmith apprentice, Dr. Tobin for follow-up in 3-4 weeks. Discussed with Joselyn Pandey, will sign off, call with questions. (2) Obstructive sleep apnea: Code(s): G47.33 - Obstructive sleep apnea (adult) (pediatric) Status: Acute Assessment and Plan: We called her [employer] and the patient is on auto PAP 5-16. They have no data since August of 2022 either she is noncompliant or her data transfer is not working. She tells me she has not been wearing her machine recently. Plan: I will place the patient on hospital auto PAP 5-16. 04/01/24: Patient is tolerating the hospital APAP, ordered at 5-16 although settings are listed as 5-12. Plan: continue hospital auto PAP 5-16 and room air. 04/02/24: Patient had an overnight oximetry on hospital auto PAP 5-16 with recording duration of 6 hours and 5 minutes. Average saturation 100%. Low saturation 86%. Time with saturation less than or equal to 88% was 0 minutes. Oxygen desaturation index was 0. Plan: Continue auto PAP 5-16 on room air when she naps or sleeps at home. (3) Shortness of breath: Code(s): R06.02 - Shortness of breath Status: Acute Assessment and Plan: Etiology of patient's shortness of breath includes congestive heart failure, fluid overload, asthma exacerbation, enterobacter cloaca a bacteremia, untreated obstructive sleep apnea, and possible pneumonia. Patient's BNP greater than 30,000 on 03/25/2024 and 03/29/2024. This was 15,100 on 05/16/2022 after she was diuresed with aggressive dialysis. Patient currently has Jl-Fuentes respirations suggestive of congestive heart failure and fluid overload. She has wheezes but this may be related fluid overload and or asthma exacerbation. Plan: Patient is scheduled to receive dialysis today. Agree with aggressive dialysis as tolerated to remove fluid. Patient may require daily dialysis to remove fluid. She is followed by hospitalist and Nephrology. As above will treat for asthma exacerbation with DuoNebs and nebulized budesonide. We will initiate patient's auto PAP 5-16 tonight. Treatment for possible pneumonia as above. 04/01/24: Patient still complains of shortness of breath at rest and with activity around the room. Plan: Agree with continue dialysis and fluid removal as tolerated. Fluid removal is limited by low blood pressure. She has completed treatment for pneumonia. Treating her asthma with DuoNebs and nebulized budesonide. Agree with aggressive physical therapy and occupational therapy as deconditioning is likely contributing factor to her shortness of breath. 04/02: Patient states her breathing is at her baseline. I suspect her major problem is fluid overload. Patient had hemodialysis yesterday with 1.5 L removed. Plan: I told the patient that if she gains 2 lb or if she starts to develop shortness of breath or chest tightness which are her symptoms related to fluid overload that she needs to call her land management supervisor so that the appropriate treatments can be initiated. Subjective Date/time seen: 04/02/24 09:58 Interval history: 03/29/2024: This is a new pulmonary worsening shortness of breath. 68-year-old with a history of asthma, LENORA on auto PAP 5-15, End-stage renal disease on hemodialysis, paroxysmal atrial fibrillation, Congestive heart failure with LVEF 30-35% and grade 2 diastolic dysfunction on 05/11/2022. previously seen on 05/16/2022 in consultation For hypoxemic respiratory failure and fluid overload requiring BiPAP. Patient underwent hemodialysis with fluid removal and return back to normal and was discharged. Per the patient she has had outpatient breathing studies and her locksmith apprentice does not feel she has COPD. The patient does tell me she has asthma. Regarding her obstructive sleep apnea: Regarding her obstructive sleep apnea she was diagnosed in 2001 and has been on CPAP and more recently auto PAP through [facility]. She was followed by her locksmith apprentice Dr. Tobin at an outside facility. Patient presented on 03/25/2024 with shortness of breath after being diagnosed At [facility] with influenza a on 03/16/2024. She was treated with azithromycin and Tamiflu but did not improve clinically. she completed hemodialysis on 03/25/2024 but appeared ill and was sent to the emergency department. In the emergency department her blood pressure is 139/83, heart rate 89, respirations 20 and room air saturations were 95%. Her COVID influenza and RSV RT PCR studies were negative. She had a CT scan of the chest and compared to 05/12/2022 her diffuse ground-glass infiltrates throughout all lung hernadez were not present. She had mild peripheral areas of calcified tree-in-bud infiltrates with minimal honeycombing in the right upper lobe, left upper lobe, left lower lobe and right lower lobe with no change in these chronic changes from 05/12/2022. Of note, she had a CT scan of the abdomen that showed these chronic changes in the right lower lobe on 05/06/2015. patient had worsening shortness of breath on 03/29 and an ABG on room air was 7.38/42/76. blood cultures from 03/25/2024 show Enterobacter cloaca a. patient had dialysis on 03/27/2024 with 1.5 L removed. 03/29/2024: When I enter the room the patient was on room air and laying on her side sleeping. I placed a pulse oximeter on her finger. She had Jl-Fuentes respirations with saturations ranging from 89% to 96%. During the tachypneic portion of her Jl-Fuentes cycling she would have a cough and an arousal. I will the patient up and she said that she her breathing is worse today. She has clear thick phlegm with some blood streaking. Her BUN was 52, creatinine 9.3, white blood cell count 10.0, BNP greater than 30,000. chest x-ray showed mild bibasilar interstitial infiltrates with no change from 03/25/2024. Cumulative she is positive 3.7 L since admission. Hemodialysis with 2 L out. later in the day the [employer], [place] stated she is on auto PAP 5-16 but there is no data since August of 2022 on the [employer], indicating either she is noncompliant or isn't relay in the info through the modem. 03/30/2024: Ultrafiltration with 1200 out. 04/01/24: Overall the patient tells me she has improved. She is 50-60% back to her normal. She still has shortness of breath and dyspnea on exertion. She denies fever. Her cough persists but is 50-60% better producing thin clear phlegm. The phlegm is normal for her. White blood cell 13.0. Creatinine 10.61, BUN 54. BNP greater than 30,000. chest x-ray with cardiomegaly, mild basilar interstitial infiltrates, no pleural effusions, no change from 03/29/2024. Patient tells me she wore the hospital auto PAP 6-16 with room air and did well. 04/02/24: patient tells me she is breathing normal. Her cough and phlegm production her back at her baseline. White blood cell count since 12.7, creatinine 7.63, BUN 39. Patient received ultrafiltration of 1.5 L off yesterday. BNP remains 29,000. she is on room air with saturations 99%. Patient had an overnight oximetry on hospital auto PAP 5-16 with recording duration of 6 hours and 5 minutes. Average saturation 100%. Low saturation 86%. Time with saturation less than or equal to 88% was 0 minutes. Oxygen desaturation index was 0. Patient tells me she feels good and is ready to go home today. DATA: EXAMINATION: CT diagnostic chest wo con DATE: 03/25/2024 10:52 INDICATION: cough, dyspnea TECHNIQUE: Computed tomography (CT) of the chest was performed without intravenous contrast. Additional 3D reconstructions utilizing coronal maximum intensity projection (MIP) were performed. Automated exposure control and iterative reconstruction technique were employed. The dose-length product was 207.26 mGy-cm. COMPARISON: 05/12/2022 FINDINGS: The previously seen groundglass opacities in the lungs have resolved. There are persistent patchy regions of coarse interstitial pattern and tree-in-bud opacities scattered throughout both lungs. There are numerous associated tiny calcifications which could be related to sequela of old granulomatous disease or potentially dystrophic calcification related to renal osteodystrophy. No pulmonary edema, pleural effusion or pneumothorax. Cardiomegaly. Atherosclerotic coronary artery calcifications. Left atrial appendage occlusion device. Tunneled right internal jugular central venous catheter with distal tip in the right atrium. No pericardial effusion. Thoracic aorta is normal in caliber. Postoperative change of prior sleeve gastrectomy with suture line along the greater curvature of the stomach. There is a small sliding-type hernia with portion of the suture line extending above level of the diaphragm. No pathologically enlarged thoracic lymphadenopathy. Severe thoracic spondylosis. Cholecystectomy clips the gallbladder fossa. There are couple low-attenuation hepatic cysts measuring up to 1.3 cm. There are cysts measuring up to 2 cm at the upper poles of both kidneys. Calcification is at the upper pole the right kidney could be either atherosclerotic or nephrolithiasis. Partially visualized combined instrumented anterior and posterior spinal fusion at the visualized lower cervical spine. IMPRESSION: 1. Scattered chronic interstitial lung disease in both lungs which include multiple tiny calcified nodules consistent with either sequela of old granulomatous disease or potentially dystrophic calcification related to renal osteodystrophy. 2. Cardiomegaly. 3. Small sliding-type hiatal hernia. 4. Nephrolithiasis versus atherosclerotic calcifications at the visualized portion of the upper pole the right kidney. 05/12/24: CT Scan of the Chest without Contrast: Clinical Indication: Fluid overload versus pneumonia Technique: Contiguous sections were acquired throughout the chest without intravenous contrast. Dose reduction technique was used on this scan by utilizing automated exposure control and iterative reconstruction technique. The dose-length product (DLP) was 247.08 mGy-cm. COMPARISON: 11/02/2012 Findings: There is no evidence of any significant mediastinal, hilar or axillary lymphadenopathy. There are atherosclerotic calcifications of the aorta. Mild coronary artery calcifications are present. There is no evidence of pleural or pericardial effusion. There is diffuse groundglass pulmonary disease bilaterally. There is mild interstitial thickening in the anterior upper lobes bilaterally, with possible small amount of aspirated material or pleural calcifications. Images through the upper abdomen reveal small hiatal hernia with probable prior bariatric surgery. Impression: Diffuse groundglass pulmonary disease. This is nonspecific, and could reflect pulmonary edema, pneumonia, or other inflammatory conditions. Clinical correlation is required. Probable chronic interstitial change in the anterior upper lobes bilaterally, with possible small amount of aspirated material. 05/11/2022: Echo Summary 1. Complete two-dimensional, color flow and Doppler transthoracic echocardiogram is performed. 2. Concentric left ventricular hypertrophy with mild LV enlargement and moderately reduced systolic function. 3. Grade 2 diastolic noncompliance. 4. Dilated left atrium. 5. Mildly sclerotic aortic valve. Left Ventricle Left ventricular chamber dimension is moderately enlarged. Left ventricular systolic function is moderately reduced, estimated at 30-35%. There is mild concentric increased left ventricular wall thickness. The left ventricular diastolic function is grade II diastolic dysfunction. Right Ventricle Right ventricular chamber dimension is normal. Left Atria Left atrial chamber dimension is moderately enlarged. Right Atria Right atrial chamber dimension is normal. Review of Systems Constitutional: Constitutional: Reports no additional constitutional complaints Eyes: Eyes: Reports no additional eye complaints ENT: Reports system reviewed and no additional complaints, except as documented Cardiovascular: Cardiovascular: Reports no additional cardiovascular complaints Respiratory: Respiratory: Reports no additional respiratory complaints Gastrointestinal: Gastrointestinal: Reports no additional gastrointestinal complaints Musculoskeletal: Musculoskeletal: Reports no additional musculoskeletal complaints Neurologic: Reports system reviewed and no additional complaints, except as documented Psychiatric: Psychiatric: Reports no additional psychiatric complaints Endocrine: Endocrine: Reports no additional endocrine complaints Hematologic/Lymphatic: Hematologic/Lymphatic: Reports no additional hematologic/lymphatic complaints Allergic/Immunologic: Allergic/Immunologic: Reports no additional allergic/immunologic complaints Exam Const: General: cooperative and healthy appearing Orientation/consciousness: oriented to person, oriented to place and oriented to time Other: mild distress HENMT: Head: normal to inspection Ears: hearing grossly normal bilaterally Eyes: General: appearance normal, both eyes and all related structures Neck: Neck: normal visual inspection Chest: Chest palpation & inspection: normal inspection of the chest Resp: Effort & Inspection: normal respiratory effort and able to speak in complete sentences Auscultation: no crackles, no rales, no rhonchi, no wheezes and lung sounds not diminished Other: Cardio: Jugular venous distension: no JVD GI: Inspection: normal to inspection Skin: General skin exam: normal color Neuro: General: oriented to person, oriented to place and oriented to time Extrem: General: normal to inspection Psych: Appearance: grossly normal Objective Data Vital Signs Vital Signs: Vital Signs - 24 hr 04/01/24 10:00 04/01/24 10:15 04/01/24 10:30 Temperature Pulse Rate 100 102 H 72 Respiratory Rate Blood Pressure 91/71 L 111/79 142/66 H Pulse Oximetry Oxygen Delivery 04/01/24 10:45 04/01/24 11:00 04/01/24 11:15 Temperature Pulse Rate 50 L 63 52 L Respiratory Rate Blood Pressure 103/58 L 92/51 L 162/115 H Pulse Oximetry Oxygen Delivery 04/01/24 11:30 04/01/24 11:45 04/01/24 11:55 Temperature 36.6 C Pulse Rate 63 60 60 Respiratory Rate 17 Blood Pressure 101/47 L 94/63 L 104/64 Pulse Oximetry Oxygen Delivery 04/01/24 14:00 04/01/24 14:12 04/01/24 14:12 Temperature 36.6 C Pulse Rate 78 93 93 Respiratory Rate 18 20 20 Blood Pressure 106/67 Pulse Oximetry 97 99 Oxygen Delivery Room Air 04/01/24 14:18 04/01/24 14:21 04/01/24 19:55 Temperature Pulse Rate 85 Respiratory Rate 20 Blood Pressure Pulse Oximetry 99 Oxygen Delivery Autopap Room Air 04/01/24 19:55 04/01/24 20:00 04/01/24 20:08 Temperature Pulse Rate 94 90 Respiratory Rate 18 18 Blood Pressure Pulse Oximetry Oxygen Delivery Room Air 04/01/24 21:15 04/01/24 23:00 04/02/24 04:50 Temperature 36.2 C L Pulse Rate 93 93 87 Respiratory Rate 16 23 H 18 Blood Pressure 111/61 Pulse Oximetry 100 97 98 Oxygen Delivery Autopap Autopap 04/02/24 05:40 04/02/24 07:00 04/02/24 07:00 Temperature 35.6 C L Pulse Rate 83 85 85 Respiratory Rate 20 18 18 Blood Pressure 111/73 Pulse Oximetry 100 99 Oxygen Delivery Room Air 04/02/24 07:10 Temperature Pulse Rate 88 Respiratory Rate 18 Blood Pressure Pulse Oximetry Oxygen Delivery Intake/Output Intake/Output: Intake & Output 03/30/24 03/31/24 04/01/24 04/02/24 23:59 23:59 23:59 23:59 Intake Total 770 1680 1127 200 Output Total 1200 1554 Balance -430 1680 -427 200 Meds/Results Medications: Active Medications Generic Name Dose Route Start Last Admin Trade Name Freq PRN Reason Stop Dose Admin Acetaminophen 500 mg 03/25/24 13:28 03/31/24 20:39 Acetaminophen 500 Mg Tablet PO 500 mg QID PRN Administration Fever Or Pain 1-3 Albuterol 2 puff 03/25/24 22:34 Albuterol Sulfate (*Sp) Aerosol 1 Puff INHALATION QIDRT PRN Shortness Of Breath Albuterol/Ipratropium 3 ml 03/25/24 14:00 04/02/24 07:00 Ipratropium 0.5 Mg/Albuterol Sulfate 2.5 Mg Ampul.Neb 3 Ml INHALATION 3 ml Q6HRT JAZMIN Administration Artificial Tears 1 drop 03/25/24 13:28 Artificial Tears Ophth Soln 15 Ml Bottle EACH EYE TID PRN Dry Eyes Aspirin 81 mg 03/26/24 09:00 04/02/24 08:33 Aspirin 81 Mg Enteric Tablet PO 81 mg DAILY JAZMIN Administration Atorvastatin Calcium 40 mg 03/25/24 21:00 04/01/24 21:37 Atorvastatin 40 Mg Tablet PO 40 mg HS JAZMIN Administration Bisacodyl 5 mg 03/28/24 22:02 04/02/24 08:35 Bisacodyl 5 Mg Tablet Ec PO 5 mg QAM PRN Administration Constipation Budesonide 0.5 mg 03/29/24 20:00 04/02/24 07:01 Budesonide Respule Neb 0.5 Mg/2 Ml Amp INHALATION 0.5 mg Q12HRT JAZMIN Administration Calcium Acetate 667 mg 03/25/24 17:00 04/02/24 08:31 Calcium Acetate 667 Mg Tablet PO 667 mg BIDWM JAZMIN Administration Cinacalcet 60 mg 03/27/24 09:00 04/01/24 14:09 Cinacalcet 30 Mg Tablet PO Not Given [id number] JAZMIN Clopidogrel Bisulfate 75 mg 03/30/24 09:00 04/02/24 08:34 Clopidogrel Bisulfate 75 Mg Tablet PO 75 mg DAILY JAZMIN Administration Dextrose 12.5 gm 03/25/24 13:22 Dextrose 50% 25 Gm/50 Ml Syringe IV PUSH PRN PRN Hypoglycemia Protocol Digoxin 125 mcg 03/28/24 09:00 03/31/24 10:06 Digoxin Tab 125 Mcg Tablet PO 125 mcg [id number] JAZMIN Administration Fluoxetine HCl 10 mg 03/26/24 09:00 04/02/24 08:34 Fluoxetine Hcl 10 Mg Capsule PO 10 mg DAILY JAZMIN Administration Fluticasone Propionate 2 spray 03/26/24 09:00 04/02/24 08:34 Fluticasone Propionate 0.05% Na Spr 16 Gm Btl (*Bkc) NASAL 2 spray DAILY JAZMIN Administration Gabapentin 200 mg 03/25/24 17:00 04/02/24 08:31 Gabapentin 100 Mg Capsule PO 200 mg BID JAZMIN Administration Glucagon 1 mg 03/25/24 13:22 Glucagon For Inj 1 Mg Vial IM PRN PRN Hypoglycemia Protocol Glucose 15 gm 03/25/24 13:22 03/30/24 16:45 Glucose Oral Gel 15 Gm Of Glucse In 37.5 Gm Tube PO 15 gm PRN PRN Administration Hypoglycemia Protocol Guaifenesin 1,200 mg 03/27/24 21:00 04/02/24 08:32 Guaifenesin 12 Hr 600 Mg Tabcr PO 1,200 mg Q12HR JAZMIN Administration Dextrose 1,000 mls @ 100 mls/hr 03/25/24 13:22 Dextrose 5% 1,000 Ml IVPB PRN PRN Hypoglycemia Protocol Albumin Human 50 mls @ 999 mls/hr 03/27/24 06:00 03/30/24 13:45 Albutein IVPB 04/26/24 05:59 999 mls/hr Q10M PRN Administration HYPOTENSION Insulin Aspart 3 - 6 units 03/25/24 17:00 04/02/24 08:33 Insulin Aspart (*Bkc) 100 Units/Ml SUB-Q Not Given TIDWM [facility] Protocol Latanoprost 1 drop 03/25/24 21:00 04/01/24 21:37 Latanoprost 0.005% Op Soln 2.5 Ml Btl EACH EYE 1 drop HS JAZMIN Administration Levofloxacin 500 mg 04/03/24 18:00 Levofloxacin 500 Mg Tablet PO 04/03/24 18:01 ONCE ONE Lidocaine 1 patch 03/26/24 09:00 04/02/24 08:30 Lidocaine 5% Patch TRANSDERM 1 patch DAILY JAZMIN Administration Midodrine 15 mg 03/25/24 17:00 04/02/24 08:32 Midodrine Hcl 2.5 Mg Tablet PO 15 mg TIDWM JAZMIN Administration Montelukast Sodium 10 mg 03/25/24 21:00 04/01/24 21:37 Montelukast Sodium 10 Mg Tablet PO 10 mg HS JAZMIN Administration Ondansetron HCl 4 mg 03/29/24 11:22 03/29/24 11:37 Ondansetron Inj 4 Mg/2 Ml Vial IV PUSH 4 mg Q6H PRN Administration Nausea And Vomiting Oxycodone HCl 5 mg 03/25/24 13:28 03/29/24 04:43 Oxycodone Hcl (*Crx) 5 Mg Tab Ir PO 5 mg Q6H PRN Administration Pain Rated 4-10 Pantoprazole Sodium 40 mg 03/25/24 17:00 04/02/24 08:32 Pantoprazole 40 Mg Tablet PO 40 mg BID JAZMIN Administration Tizanidine HCl 2 mg 03/25/24 13:28 04/02/24 08:32 Tizanidine Hcl 2 Mg Tablet PO 2 mg TID PRN Administration Muscle Spasm Vitamin B Complex/Folic Acid 1 cap 03/26/24 09:00 04/02/24 08:32 Vitamin B Cmplx/Vit C/Folic Ac 1 Capsule PO 1 cap QAM [facility] Administration Vitamin D 3,000 units 03/26/24 09:00 04/02/24 08:32 Cholecalciferol 1,000 Units Tablet PO 3,000 units DAILY JAZMIN Administration Radiology Results: ITS Impressions Chest CT 03/25/24 10:53 IMPRESSION: 1. Scattered chronic interstitial lung disease in both lungs which include multiple tiny calcified nodules consistent with either sequela of old granulomatous disease or potentially dystrophic calcification related to renal osteodystrophy. 2. Cardiomegaly. 3. Small sliding-type hiatal hernia. 4. Nephrolithiasis versus atherosclerotic calcifications at the visualized portion of the upper pole the right kidney. Thoracic Spine X-Ray 03/25/24 14:10 IMPRESSION: No acute fracture or traumatic malalignment detected in the thoracic spine. Chest X-Ray 04/01/24 08:45 Impression: Clear lungs. Stable cardiomegaly with left atrial closure device. Stable support line. Labs Labs: Laboratory Results - last 24 hr 04/01/24 04/01/24 04/02/24 16:45 21:14 06:37 WBC 12.7 H RBC 3.14 L Hgb 8.8 L Hct 29.5 L MCV 93.9 MCH 28.0 MCHC 29.8 L RDW 18.2 H Plt Count 252 MPV 10.3 Immature Gran % (Auto) Not Reportable Neut % (Auto) Not Reportable Lymph % (Auto) Not Reportable [place] % (Auto) Not Reportable Eos % (Auto) Not Reportable Baso % (Auto) Not Reportable Lymph # (Auto) Not Reportable [place] # (Auto) Not Reportable Eos # (Auto) Not Reportable Baso # (Auto) Not Reportable Abs Immat Gran (auto) Not Reportable Absolute Neuts (auto) Not Reportable Absolute Nucleated RBC Not Reportable Nucleated RBC % Not Reportable Platelet Estimate Adequate Polychromasia 1+ Hypochromasia 2+ Anisocytosis 1+ Schistocytes None seen Sodium 140 Potassium 4.8 Chloride 103 Carbon Dioxide 20 L Anion Gap 17 H BUN 39 H D Creatinine 7.63 H Estim Creat Clear Calc 6 Estimated GFR 6 L Glucose 86 POC Capillary Glucose 204 H 87 Calcium 8.6 Total Bilirubin 1.3 AST 19 ALT 10 Alkaline Phosphatase 83 NT-Pro-B Natriuret Pep 29483 H Total Protein 7.0 Albumin 4.0 04/02/24 07:50 WBC RBC Hgb Hct MCV MCH MCHC RDW Plt Count MPV Immature Gran % (Auto) Neut % (Auto) Lymph % (Auto) [place] % (Auto) Eos % (Auto) Baso % (Auto) Lymph # (Auto) [place] # (Auto) Eos # (Auto) Baso # (Auto) Abs Immat Gran (auto) Absolute Neuts (auto) Absolute Nucleated RBC Nucleated RBC % Platelet Estimate Polychromasia Hypochromasia Anisocytosis Schistocytes Sodium Potassium Chloride Carbon Dioxide Anion Gap BUN Creatinine Estim Creat Clear Calc Estimated GFR Glucose POC Capillary Glucose 70 Calcium Total Bilirubin AST ALT Alkaline Phosphatase NT-Pro-B Natriuret Pep Total Protein Albumin
--- NOTE | 2024-04-02 10:18 | PCNWS ---
Weekly nutritional screen. Patient is tolerating current regular diet with adequate intake 100% most all meals. No weight loss reported. No nutritional recommendations at this time.
--- NOTE | 2024-04-02 10:53 | PCPTNOTE ---
On 04/01/24, the student, STANLEY Rodriguez, completed [facility] documentation on this patient. I have reviewed the student's documentation and agree with the findings.
--- NOTE | 2024-04-02 11:36 | P.PNNP_ITS ---
Progress Note: A&P Assessment and Plan (1) End stage renal disease: Code(s): N18.6 - End stage renal disease Status: Chronic Assessment and Plan: * HD tomorrow * continue Monday/Monday/Monday dialysis schedule * follow electrolytes, volume status, and clearance (2) Shortness of breath: Code(s): R06.02 - Shortness of breath Status: Acute Assessment and Plan: * as noted on presentation * acute worsening noted 1 week after influenza diagnosis * known history of asthma and reactive airway disease * imaging noted: * CXR: new airspace opacity lateral left lower lung zone which could be due to atelectasis, pneumonia, paracardial fat pad or some combination thereof and cardiomegaly * CT of chest: scattered chronic interstitial lung disease in both lungs which include multiple tiny calcified nodules consistent with either sequela of old granulomatous disease or potentially dystrophic calcification related to renal osteodystrophy * no fevers or leukocytosis * some clinical improvement with bronchodilators, inhalers, and steroids along with antibiotics; off steroids * blood culture with Enterobacter (1 out of 2) * on antibiotics * Pulmonary recommendations reviewed * s/p DUF session (on 03/30) * continue supportive therapy (3) Combined systolic and diastolic congestive heart failure: Code(s): I50.40 - Unspecified combined systolic (congestive) and diastolic (congestive) heart failure Status: Acute Assessment and Plan: * attempting to maintain euvomeia with fluid removal with HD * recent Echo noted (03/30): * left ventricular systolic function is severely reduced, estimated at 25-30% * left atrial chamber dimension is severely enlarged * mild aortic valve sclerosis. * mitral valve has mildly calcified annulus * moderate to severe mitral valve regurgitation * mild tricuspid valve regurgitation * mild pulmonary hypertension, estimated pulmonary arterial systolic pressure is 47 mmHg * trace pulmonic regurgitation * Cardiology recommendations noted (4) Anemia: Code(s): D64.9 - Anemia, unspecified Status: Chronic Assessment and Plan: * due to ESRD along with acute illness * B12 and folate normal; iron studies c/w anemia of chronic disease * SHERRI with HD * follow trend of H/H (5) Influenza: Code(s): J11.1 - Influenza due to unidentified influenza virus with other respiratory manifestations Status: Acute Assessment and Plan: * diagnosed with influenza 1 week prior to admission and completed a course of Tamiflu * repeat testing negative * continue supportive therapy (6) Obstructive sleep apnea: Code(s): G47.33 - Obstructive sleep apnea (adult) (pediatric) Status: Acute Assessment and Plan: * continue CPAP at night and with naps (7) Type II diabetes mellitus: Code(s): E11.9 - Type 2 diabetes mellitus without complications Status: Acute Assessment and Plan: * noted in the past but now diet controlled * previous hyperglycemia noted with steroid use * glycemic control per hospitalists Not opposed to discharge from renal perspective if otherwise medically stable. Will continue to follow. L Subjective Date/time seen: 04/02/24 11:36 Interval history: Follow-up for end stage renal disease on hemodialysis. Tolerated dialysis treatment yesterday without any issue or problems; reports stability if not improvement in her breathing/respiratory status at the time of my visit; no other issues or events overnight or earlier today; asking me about potential discharge today. Exam 2 Narrative: General: WD/WN female in NAD Heart: normal S1 and S2; no rub Lungs: clear anteriorly; decreased at the bases Abdomen: soft, nontender, nondistended, positive bowel sounds Extremities: no cyanosis or clubbing; no edema Skin: not rash or nodules Objective Data Vital Signs Vital Signs: Vital Signs Temp Pulse Resp BP Pulse Ox O2 Del Method 04/02/24 08:30 Room Air 04/02/24 07:10 88 18 04/02/24 07:00 85 18 04/02/24 07:00 85 18 99 Room Air 04/02/24 05:40 96.1 F L 83 20 111/73 100 04/02/24 04:50 87 18 98 Autopap 04/01/24 23:00 93 23 H 97 Autopap 04/01/24 21:15 97.2 F L 93 16 111/61 100 04/01/24 20:08 90 18 04/01/24 20:00 Room Air 04/01/24 19:55 94 18 04/01/24 19:55 99 Room Air 04/01/24 14:21 85 20 04/01/24 14:18 Autopap 04/01/24 14:12 93 20 04/01/24 14:12 93 20 99 Room Air 04/01/24 14:00 97.8 F 78 18 106/67 97 Intake/Output Intake/Output: Intake & Output 03/30/24 03/31/24 04/01/24 04/02/24 23:59 23:59 23:59 23:59 Intake Total 770 1680 1127 200 Output Total 1200 1554 Balance -430 1680 -427 200 Meds/Results Medications: Active Medications Generic Name Dose Route Start Last Admin Trade Name Freq PRN Reason Stop Dose Admin Acetaminophen 500 mg 03/25/24 13:28 03/31/24 20:39 Acetaminophen 500 Mg Tablet PO 500 mg QID PRN Administration Fever Or Pain 1-3 Albuterol 2 puff 03/25/24 22:34 Albuterol Sulfate (*Sp) Aerosol 1 Puff INHALATION QIDRT PRN Shortness Of Breath Albuterol/Ipratropium 3 ml 03/25/24 14:00 04/02/24 07:00 Ipratropium 0.5 Mg/Albuterol Sulfate 2.5 Mg Ampul.Neb 3 Ml INHALATION 3 ml Q6HRT JAZMIN Administration Artificial Tears 1 drop 03/25/24 13:28 Artificial Tears Ophth Soln 15 Ml Bottle EACH EYE TID PRN Dry Eyes Aspirin 81 mg 03/26/24 09:00 04/02/24 08:33 Aspirin 81 Mg Enteric Tablet PO 81 mg DAILY JAZMIN Administration Atorvastatin Calcium 40 mg 03/25/24 21:00 04/01/24 21:37 Atorvastatin 40 Mg Tablet PO 40 mg HS JAZMIN Administration Bisacodyl 5 mg 03/28/24 22:02 04/02/24 08:35 Bisacodyl 5 Mg Tablet Ec PO 5 mg QAM PRN Administration Constipation Budesonide 0.5 mg 03/29/24 20:00 04/02/24 07:01 Budesonide Respule Neb 0.5 Mg/2 Ml Amp INHALATION 0.5 mg Q12HRT JAZMIN Administration Calcium Acetate 667 mg 03/25/24 17:00 04/02/24 08:31 Calcium Acetate 667 Mg Tablet PO 667 mg BIDWM JAZMIN Administration Cinacalcet 60 mg 03/27/24 09:00 04/01/24 14:09 Cinacalcet 30 Mg Tablet PO Not Given [id number]@[id number] JAZMIN Clopidogrel Bisulfate 75 mg 03/30/24 09:00 04/02/24 08:34 Clopidogrel Bisulfate 75 Mg Tablet PO 75 mg DAILY JAZMIN Administration Dextrose 12.5 gm 03/25/24 13:22 Dextrose 50% 25 Gm/50 Ml Syringe IV PUSH PRN PRN Hypoglycemia Protocol Digoxin 125 mcg 03/28/24 09:00 03/31/24 10:06 Digoxin Tab 125 Mcg Tablet PO 125 mcg SuTh@0900 JAZMIN Administration Fluoxetine HCl 10 mg 03/26/24 09:00 04/02/24 08:34 Fluoxetine Hcl 10 Mg Capsule PO 10 mg DAILY JAZMIN Administration Fluticasone Propionate 2 spray 03/26/24 09:00 04/02/24 08:34 Fluticasone Propionate 0.05% Na Spr 16 Gm Btl (*Bkc) NASAL 2 spray DAILY JAZMIN Administration Gabapentin 200 mg 03/25/24 17:00 04/02/24 08:30 Gabapentin 100 Mg Capsule PO Not Given BID JAZMIN Glucagon 1 mg 03/25/24 13:22 Glucagon For Inj 1 Mg Vial IM PRN PRN Hypoglycemia Protocol Glucose 15 gm 03/25/24 13:22 03/30/24 16:45 Glucose Oral Gel 15 Gm Of Glucse In 37.5 Gm Tube PO 15 gm PRN PRN Administration Hypoglycemia Protocol Guaifenesin 1,200 mg 03/27/24 21:00 04/02/24 08:32 Guaifenesin 12 Hr 600 Mg Tabcr PO 1,200 mg Q12HR JAZMIN Administration Dextrose 1,000 mls @ 100 mls/hr 03/25/24 13:22 Dextrose 5% 1,000 Ml IVPB PRN PRN Hypoglycemia Protocol Albumin Human 50 mls @ 999 mls/hr 03/27/24 06:00 03/30/24 13:45 Albutein IVPB 04/26/24 05:59 999 mls/hr Q10M PRN Administration HYPOTENSION Insulin Aspart 3 - 6 units 03/25/24 17:00 04/02/24 11:43 Insulin Aspart (*Bkc) 100 Units/Ml SUB-Q Not Given TIDWM JAZMIN Protocol Latanoprost 1 drop 03/25/24 21:00 04/01/24 21:37 Latanoprost 0.005% Op Soln 2.5 Ml Btl EACH EYE 1 drop HS JAZMIN Administration Levofloxacin 500 mg 04/03/24 18:00 Levofloxacin 500 Mg Tablet PO 04/03/24 18:01 ONCE ONE Lidocaine 1 patch 03/26/24 09:00 04/02/24 08:30 Lidocaine 5% Patch TRANSDERM 1 patch DAILY JAZMIN Administration Midodrine 15 mg 03/25/24 17:00 04/02/24 08:30 Midodrine Hcl 2.5 Mg Tablet PO Not Given TIDWM [facility] Montelukast Sodium 10 mg 03/25/24 21:00 04/01/24 21:37 Montelukast Sodium 10 Mg Tablet PO 10 mg HS JAZMIN Administration Ondansetron HCl 4 mg 03/29/24 11:22 03/29/24 11:37 Ondansetron Inj 4 Mg/2 Ml Vial IV PUSH 4 mg Q6H PRN Administration Nausea And Vomiting Oxycodone HCl 5 mg 03/25/24 13:28 03/29/24 04:43 Oxycodone Hcl (*Crx) 5 Mg Tab Ir PO 5 mg Q6H PRN Administration Pain Rated 4-10 Pantoprazole Sodium 40 mg 03/25/24 17:00 04/02/24 08:32 Pantoprazole 40 Mg Tablet PO 40 mg BID [facility] Administration Tizanidine HCl 2 mg 03/25/24 13:28 04/02/24 08:32 Tizanidine Hcl 2 Mg Tablet PO 2 mg TID PRN Administration Muscle Spasm Vitamin B Complex/Folic Acid 1 cap 03/26/24 09:00 04/02/24 08:32 Vitamin B Cmplx/Vit C/Folic Ac 1 Capsule PO 1 cap QAM [facility] Administration Vitamin D 3,000 units 03/26/24 09:00 04/02/24 08:32 Cholecalciferol 1,000 Units Tablet PO 3,000 units DAILY JAZMIN Administration Radiology Results: ITS Impressions Chest CT 03/25/24 10:53 IMPRESSION: 1. Scattered chronic interstitial lung disease in both lungs which include multiple tiny calcified nodules consistent with either sequela of old granulomatous disease or potentially dystrophic calcification related to renal osteodystrophy. 2. Cardiomegaly. 3. Small sliding-type hiatal hernia. 4. Nephrolithiasis versus atherosclerotic calcifications at the visualized portion of the upper pole the right kidney. Thoracic Spine X-Ray 03/25/24 14:10 IMPRESSION: No acute fracture or traumatic malalignment detected in the thoracic spine. Chest X-Ray 04/01/24 08:45 Impression: Clear lungs. Stable cardiomegaly with left atrial closure device. Stable support line. Labs Labs: Laboratory Tests 04/02/24 06:37 04/02/24 06:37 Calcium 8.6 Total Bilirubin 1.3 AST 19 ALT 10 Alkaline Phosphatase 83 NT-Pro-B Natriuret Pep 92330 H Total Protein 7.0 Albumin 4.0
[2024-04-02 11:37] LABS: Glucose Point of Care 185 mg/dl (65-105)
--- NOTE | 2024-04-02 11:51 | PCPTNOTE ---
On 04/02/24, the student, STANLEY Rodriguez, provided care and completed [facility] documentation on this patient. I have reviewed the student's documentation and agree with the findings.
[2024-04-02] MEDS: MIDODRINE HCL 2.5 MG TABLET 15 MG PO (13:37)
--- NOTE | 2024-04-02 15:14 | P.DS_ITS ---
DS: Admitting Diagnosis Discharge Date 04/02/2024 Admitting Diagnosis shortness of breath asthma flu combined systolic and diastolic chf end stage renal disease on HD chronic anemia LENORA back pain type II dm DS: Discharge Diagnosis Discharge Diagnosis (1) Shortness of breath: Code(s): R06.02 - Shortness of breath Status: Acute (2) Asthma: Code(s): J45.909 - Unspecified asthma, uncomplicated Status: Acute (3) Influenza: Code(s): J11.1 - Influenza due to unidentified influenza virus with other respiratory manifestations Status: Acute (4) Combined systolic and diastolic congestive heart failure: Code(s): I50.40 - Unspecified combined systolic (congestive) and diastolic (congestive) heart failure Status: Acute (5) End-stage renal disease on hemodialysis: Onset Date: 09/2009 Code(s): N18.6 - End stage renal disease; Z99.2 - Dependence on renal dialysis Status: Acute (6) Chronic anemia: Code(s): D64.9 - Anemia, unspecified Status: Chronic (7) Obstructive sleep apnea: Code(s): G47.33 - Obstructive sleep apnea (adult) (pediatric) Status: Acute (8) Back pain: Code(s): M54.9 - Dorsalgia, unspecified Status: Acute (9) Type II diabetes mellitus: Code(s): E11.9 - Type 2 diabetes mellitus without complications Status: Acute DS: Summary Hospital Course Reason for hospitalization: shortness of breath asthma flu combined systolic and diastolic chf end stage renal disease on HD chronic anemia LENORA back pain type II dm Hospital Course: 68yo female with ESRD on HD -, CHF, PAFib s/p Watchman, DM and LENORA here for feeling short of breath and cough after being diagnosed with the flu. Completed her dose of tamiflu inpatient. Chest XR showed new airspace opacity lateral left lower lung zone which could be due to atelectasis, pneumonia, paracardial fat pad or some combination thereof and cardiomegaly. Chest CT showed scattered chronic interstitial lung disease in both lungs which include multiple tiny calcified nodules consistent with either sequela of old granulomatous disease or potentially dystrophic calcification related to renal osteodystrophy, Cardiomegaly, Small sliding-type hiatal hernia, and Nephrolithiasis versus atherosclerotic calcifications at the visualized portion of the upper pole the right kidney. Blood cultures obtained and grew enterobacter cloacae, repeat show NGTD. Patient started on IV antibiotics for the bacteremia and possible pneumonia. She was also treated for an asthma exacerbation. Pulmonology consulted. Repeat chest XR showed stable diffuse lung disease, consistent with chronic interstitial lung disease and mild atelectasis with cardiomegaly. Per pulmonology patient is able to discharge from their perspective on the following medications: Flovent 220 at 2 puffs b.i.d.. Rescue albuterol inhaler 2 puffs q.4 hours p.r.n. shortness of breath or wheezing. Rescue albuterol neb q.4 hours p.r.n. shortness of breath or wheezing. Montelukast 10 mg p.o. q.day and Auto PAP 5-16 with room air when she naps or sleeps. Patient was transitioned to oral antibiotics to complete her course for the bacteremia. [place] [address]. Echo ordered and showed LVEF 25-30%. Prior echo from 05/11/22 showed LVEF 30-35% and patient states her most recent echo at outside facility with LVEF 50%. Cardiology consulted and recommended outpatient initiation of GDMT with patients learning administrator. Patient states she has an appointment with her learning administrator, Dr. Ann on 04/18. Patient had asymptomatic hypotension prior to discharge because she refused her morning midodrine. Discussed with patient why she refused and she states she has been trying to wean herself off of this medication. After having the low blood pressure she received her home dose of midodrine and pressure returned to normal. Had an in depth conversation about the importance of the patient taking her midodrine as prescribed given her hypotension off of this medication. She states understanding and notes that she will take this medication as prescribed when returning home. At time of discharge patient has no complaints denying chest pain, shortness of breath, palpitations, nausea/vomiting, abdominal pain, dizziness and lightheadedness. Patient discharged home with home health in a stable condtion. She is to take her medications as prescribed and follow up with her PCP, licensed prosthetist/orthotist and learning administrator as scheduled as she has follow up appointments with all of them within 2 weeks. Status at Discharge Functional status at discharge: uses cane/walker Time Spent with Patient Time attestation: Total time spent providing and/or coordinating discharge services: Time spent: Greater than 30 minutes Exam Narrative: AF HR 96 RR 16 SpO2 100 BP 110/68 General: female who is nontoxic appearing, sitting up in chair HEENT: Normocephalic. Atraumatic. Extraocular movement intact. Sclera clear and anicteric. No facial asymmetry. Chest: Lung are clear on auscultation bilaterally. Speaking full sentences. No accessory muscle use. No wheezes. CV: Heart was regular rate and rhythm. S1-S2. No murmurs, gallops, or rubs. Abd: Abdomen was soft. Nontender. Nondistended. Positive bowel sounds. No organomegaly or masses. Ext: No clubbing, cyanosis, or edema. 2+ DP pulses bilaterally. Neuro: Patient is alert. Speech is clear. DS: Data Data Completed and Pending Completed studies during hospitalization: chest x-ray chest x-ray T-spine x-ray chest x-ray chest x-ray Labs on day of discharge: Labs from last 24 hours 04/02/24 04/02/24 04/02/24 11:19 07:50 06:37 WBC 12.7 H RBC 3.14 L Hgb 8.8 L Hct 29.5 L MCV 93.9 MCH 28.0 MCHC 29.8 L RDW 18.2 H Plt Count 252 MPV 10.3 Immature Gran % (Auto) Not Reportable Neut % (Auto) Not Reportable Lymph % (Auto) Not Reportable [place] % (Auto) Not Reportable Eos % (Auto) Not Reportable Baso % (Auto) Not Reportable Lymph # (Auto) Not Reportable [place] # (Auto) Not Reportable Eos # (Auto) Not Reportable Baso # (Auto) Not Reportable Abs Immat Gran (auto) Not Reportable Absolute Neuts (auto) Not Reportable Absolute Nucleated RBC Not Reportable Nucleated RBC % Not Reportable Platelet Estimate Adequate Polychromasia 1+ Hypochromasia 2+ Anisocytosis 1+ Schistocytes None seen Sodium 140 Potassium 4.8 Chloride 103 Carbon Dioxide 20 L Anion Gap 17 H BUN 39 H D Creatinine 7.63 H Estim Creat Clear Calc 6 Estimated GFR 6 L Glucose 86 POC Capillary Glucose 185 H 70 Calcium 8.6 Total Bilirubin 1.3 AST 19 ALT 10 Alkaline Phosphatase 83 NT-Pro-B Natriuret Pep 38646 H Total Protein 7.0 Albumin 4.0 04/01/24 04/01/24 21:14 16:45 WBC RBC Hgb Hct MCV MCH MCHC RDW Plt Count MPV Immature Gran % (Auto) Neut % (Auto) Lymph % (Auto) [place] % (Auto) Eos % (Auto) Baso % (Auto) Lymph # (Auto) [place] # (Auto) Eos # (Auto) Baso # (Auto) Abs Immat Gran (auto) Absolute Neuts (auto) Absolute Nucleated RBC Nucleated RBC % Platelet Estimate Polychromasia Hypochromasia Anisocytosis Schistocytes Sodium Potassium Chloride Carbon Dioxide Anion Gap BUN Creatinine Estim Creat Clear Calc Estimated GFR Glucose POC Capillary Glucose 87 204 H Calcium Total Bilirubin AST ALT Alkaline Phosphatase NT-Pro-B Natriuret Pep Total Protein Albumin Preliminary micro results at discharge 03/29/24 19:26 Blood Culture - Preliminary Blood 03/29/24 19:26 Blood Culture - Preliminary Blood Discharge Plan Discharge Attending physician on discharge: Yves Hooks Consulting providers: Nickie Squires; Thuan García; Steven Medina Discharging Clinician: Joselyn Pandey Anticipated Discharge Date/Time: 04/02/24 13:45 Patient Disposition: Home Health Service Activity: as tolerated Diet: as tolerated, heart healthy and renal Discharge Instructions: Discharge disposition: Patient was admitted to the hospital for shortness of breath and cough Treated for pneumonia, flu, and volume overload Continue dialysis MWF Take medications as prescribed Levaquin 500 mg once a day, course to be completed on 04/03 Flovent 220 at 2 puffs b.i.d.. Rescue albuterol inhaler 2 puffs q.4 hours p.r.n. shortness of breath or wheezing. Rescue albuterol neb q.4 hours p.r.n. shortness of breath or wheezing. Montelukast 10 mg p.o. q.day Maintain a cardiac diet, 2 g sodium, do not over hydrate Remain active Monitor urine output Daily weights, if you gain more than 3 lb within 1 day or 5 lb in 1 week notify your primary care provider Follow up with your licensed prosthetist/orthotist and learning administrator as scheduled Continue your Auto PAP 5-16 with room air with naps or sleeps. Monitor blood pressures Take your midodrine as prescribed Take caution while standing, rising, or moving Change positions slowly taking a break between each position change If you standing feel dizzy sit back down and take a break Echo was obtained and showing reduced ejection fraction Take medications as prescribed Maintain a cardiac diet, 2 g sodium, do not over hydrate Remain active Monitor urine output Daily weights, if you gain more than 3 lb within 1 day or 5 lb in 1 week notify your primary care provider Encouraged to continue with yearly vaccinations Return to the emergency department if he developed sudden shortness of breath, chest pain, nausea, vomiting, upset stomach or intractable diarrhea Return to the emergency department if you develop fever greater than 101.5 Follow-up with the primary care physician within 1-2 weeks Thank you for [facility] for your healthcare needs Patient Instructions: Antibiotic Form, Midodrine (By mouth), Heart Failure (DC) Patient Language: Romansh Stand Alone Forms: General Discharge Information Follow-up/Referrals: UNKNOWN,DOCTOR [Primary Care Provider] - 1 Week Discharge Medications: New levofloxacin 500 mg tablet 500 mg PO DAILY 1 Days Qty: 1 0RF fluticasone propionate 220 mcg/actuation HFA aerosol inhaler 2 puff inhalation Q12H Qty: 12 0RF albuterol sulfate [Ventolin HFA] 90 mcg/actuation HFA aerosol inhaler 2 inh inhalation Q4H PRN (Reason: shortness of breath or wheezing) Qty: 8.5 0RF albuterol sulfate 1.25 mg/3 mL solution for nebulization 1.25 mg inhalation Q4H PRN (Reason: shortness of breath or wheezing) Qty: 90 0RF Continued aspirin [Adult Aspirin Regimen] 81 mg tablet,delayed release (DR/EC) 81 mg PO DAILY omeprazole 20 mg capsule,delayed release(DR/EC) 20 mg PO BID gabapentin 100 mg Capsule 200 mg PO BID lanthanum 1,000 mg Tablet,Chewable 1,000 mg PO .with meals Rx Instructions: And snacks clopidogrel 75 mg tablet 75 mg PO DAILY acetaminophen 500 mg Tablet 500 mg PO QID PRN (Reason: Fever Or Pain) midodrine 5 mg tablet 15 mg PO TIDWMEAL fluoxetine [Prozac] 10 mg capsule 10 mg PO DAILY cinacalcet [Sensipar] 30 mg tablet 60 mg PO QMWF cholecalciferol (vitamin D3) [Vitamin D3] 25 mcg (1,000 unit) tablet 3,000 unit PO DAILY latanoprost [Xalatan] 0.005 % Drops 1 drp EACH EYE HS 30 Days Qty: 2.5 0RF atorvastatin 40 mg Tablet 40 mg PO HS 30 Days Qty: 30 0RF digoxin 125 mcg (0.125 mg) Tablet 125 mcg PO SuTh 30 Days Qty: 9 0RF fluticasone propionate 50 mcg/actuation Chicken,Suspension 2 spray intranasal DAILY 30 Days Qty: 16 0RF Artificial Tears(gk-[id number]) 1-0.2-0.2 % Drops 1 drp EACH EYE TID PRN (Reason: Dry Eyes) 30 Days Qty: 15 0RF tizanidine 2 mg Tablet 2 mg PO TID PRN (Reason: Muscle Spasm) Qty: 30 0RF montelukast [Singulair] 10 mg Tablet 10 mg PO HS 30 Days Qty: 30 0RF oxycodone 5 mg Tablet 5 mg PO Q6H PRN (Reason: Pain Rated 4-10) Qty: 28 0RF calcium acetate(phosphat bind) 667 mg Tablet 667 mg PO BIDWM Qty: 60 0RF lidocaine [Lidocaine Pain Relief] 4 % Adhesive Patch,Medicated 1 patch topical DAILY Qty: 30 0RF Patient Comments: left back Dialyvite 800 0.8 mg tablet 1 tablet PO DAILY Qty: 30 0RF Date of admission: 03/26/24 09:36 Primary Care Provider: UNKNOWN,DOCTOR Admitting Provider: Yves Hooks Attending physician on admission: Joselyn Pandey Condition: Stable Hospitalist MIPS Heart Failure (Exclusion) Patient has history of Heart Transplant or Left Ventricular Assistive Device?: No IF YES, STOP HERE Heart Failure (Qualifier) Patient has current or prior documentation of LVEF less than or equal to 40%, or mod/servere depressed LVSF?: Yes IF NO, STOP HERE If Yes, Heart Failure (Qualifier) Patient was prescribed or already taking an Angiotensin-Converting Enzyme (CAILIN) Inhibitor, or Antiotensin Receptor Loi (ARB): No Patient was prescribed or already taking bisoprolol, carvedilol, or sustained release metoprolol succinate: No If Medications not prescribed/taking Reason patient not prescribed/taking CAILIN or ARB: Medical reasons: allergy, intolerance, contraindication or other (hypotension requiring midodrine) Reason patient not prescribed/taking bisoprolol, carvedilol, or sustained realease metoprolol succinate: Medical reasons: allergy, intolerance, contraindication or other (hypotension requiring midodrine )
[2024-04-02 16:58] LABS: Glucose Point of Care 107 mg/dl (65-105)
[2024-04-02] MEDS: MIDODRINE HCL 10 MG TABLET PO (17:44)
[2024-04-02] MEDS: MIDODRINE HCL 2.5 MG TABLET 5 MG PO (17:44)
[2024-04-03 13:43] LABS: Adenovirus DNA Not Detected (Not Detected); Chlamydophila pneumoniae Not Detected (Not Detected); Coronavirus 229E Not Detected (Not Detected); Coronavirus HKU1 Not Detected (Not Detected); Coronavirus NL63 Not Detected (Not Detected); Coronavirus OC43 Not Detected (Not Detected); Human Metapneumovirus Not Detected (Not Detected); Human Parainfluenza Virus 1 Not Detected (Not Detected); Human Parainfluenza Virus 2 Not Detected (Not Detected); Human Parainfluenza Virus 3 Not Detected (Not Detected); Human Parainfluenza Virus 4 Not Detected (Not Detected); Human RSV B Not Detected (Not Detected); Influenza A Not Detected (Not Detected); Influenza B Not Detected (Not Detected); Mycoplasma pneumoniae Not Detected (Not Detected); Rhinovirus/Enterovirus Not Detected (Not Detected)
== END 2024-04-02 18:30 | disposition home or self-care (01) | DRG 193 ==
LOC: ANHED 11:51 → ANH3MEDSUR 12:32
PROVIDERS: Internal Medicine; Internal Medicine Nephrology; Internal Medicine Pulmonary Disease; Admitting Provider General Practice; Emergency Provider Physician Assistant; Visit Provider Student in an Organized Health Care Education/Training Program
DX: J18.9 Pneumonia, unspecified organism (principal); N18.6 End stage renal disease; I50.42 Chronic combined systolic (congestive) and diastolic (congestive) heart failure; J45.901 Unspecified asthma with (acute) exacerbation; R78.81 Bacteremia; J98.11 Atelectasis; E11.42 Type 2 diabetes mellitus with diabetic polyneuropathy; E11.22 Type 2 diabetes mellitus with diabetic chronic kidney disease; K21.9 Gastro-esophageal reflux disease without esophagitis; K57.90 Diverticulosis of intestine, part unspecified, without perforation or abscess without bleeding; E78.5 Hyperlipidemia, unspecified; F41.9 Anxiety disorder, unspecified; G47.33 Obstructive sleep apnea (adult) (pediatric); E11.21 Type 2 diabetes mellitus with diabetic nephropathy; E03.9 Hypothyroidism, unspecified; D63.1 Anemia in chronic kidney disease; M54.9 Dorsalgia, unspecified; I95.89 Other hypotension; B96.89 Other specified bacterial agents as the cause of diseases classified elsewhere; Z99.2 Dependence on renal dialysis; Z79.01 Long term (current) use of anticoagulants; Z87.11 Personal history of peptic ulcer disease; Z86.73 Personal history of transient ischemic attack (TIA), and cerebral infarction without residual deficits; Z98.1 Arthrodesis status; Z90.3 Acquired absence of stomach [part of]; Z90.49 Acquired absence of other specified parts of digestive tract
CPT/HCPCS: 36415; 36600; 71045; 71250; 72072; 80053; 80069; 80162; 82607; 82728; 82746; 82805; 82948; 83036; 83540; 83550; 83605; 83690; 83880; 84145; 84484; 85018; 85025; 85027; 85610; 85730; 86706; 87040; 87186; 87340; 87633; 87637; 87641; 93005; 93306; 94640; 94667; 94668; 94669; 94762; 96365; 96368; 96375; 97110; 97116; 97161; 97165; 97530; 97535; 99285; A9270; G0257; J0456; J0692; J0696; J1644; J1815; J2405; J2919; J7030; P9047; Q5105

== ENCOUNTER 2024-05-27 11:46 | Inpatient (IN) | payer MEDICARE, SELFPAY ==
[2024-05-27] VITALS (36 sets, daily range): BP systolic 85–182; BP diastolic 33–162; PULSE 58–117; RESP 14–37; TEMP 34.8–37.1; O2SAT 95–100; BMI 29.2
--- NOTE | ~2024-05-27 | CT_ITS ---
Non-contrast Head CT History: Encephalopathy COMPARISON: 05/27/2024 Technique: Axial non-contrast imaging of the brain was performed. Dose reduction technique was used on this scan by utilizing automated exposure control and iterative reconstruction technique. The dose -length product (DLP) was 605.33 mGy-cm. Findings: There is no evidence of intracranial hemorrhage, mass lesion, or acute infarct. Brain par enchyma appears normal. The ventricles and subarachnoid spaces are normal in size. The calvarium ap pears normal. The visualized paranasal sinuses and mastoid air cells are clear. Stable severe athero sclerotic calcification the distal left vertebral artery. Impression: No acute abnormality seen. Reviewed, dictated and finalized at [facility]. Impression: No acute abnormality seen.
--- NOTE | ~2024-05-27 | XR_ITS ---
EXAMINATION: XR chest-chest tube insert/pos DATE: 05/29/2024 09:59 INDICATION: Status post chest tube placement TECHNIQUE: frontal view of the chest was obtained. COMPARISON: Chest CT dated 06/08/2024 FINDINGS: New right chest tube projecting over the right lower lung zone with distal tip near the cardiophrenic angle. Endotracheal tube tip 4.5 cm above the pablo. Nasogastric tube extends below the left hemid iaphragm with distal tip collimated off the study. Large-bore dual-lumen likely tunneled right culinary internship al jugular central venous catheter with distal tip in the right atrium. No evident residual right pneumothorax. Persistent airspace opacities in bilateral mid and lower lung zones which could represent atelectasis and/or pneumonia. Could not exclude a small left pleural eff usion although none were present on the immediately prior chest CT. Cardiomegaly. Left atrial appenda ge occlusion device. Expected small amount of lateral right chest wall gas near the site of chest tub e placement. IMPRESSION: 1. No residual right pneumothorax post right chest tube placement. 2. Persistent opacities in bilateral mid and lower lung zones which could represent atelectasis and/o r pneumonia. 3. Cardiomegaly. Reviewed, dictated and finalized at location [facility]. IMPRESSION: 1. No residual right pneumothorax post right chest tube placement. 2. Persistent opacities in bilateral mid and lower lung zones which could repre sent atelectasis and/or pneumonia. 3. Cardiomegaly.
--- NOTE | ~2024-05-27 | XR_ITS ---
Portable chest x-ray Comparison: 05/29/2024 Clinical History: Respiratory failure Findings: Endotracheal tube, NG tube, and right-sided central venous line are in place. Right-sided chest tube in place. No pneumothorax evident. There is central congestive change with bibasilar pulmo nary edema/atelectasis. Possible developing nodular opacity at the left upper lobe. Cardiomediastina l silhouette is stable. Bones and soft tissues are unremarkable. Impression: Support tubes, as above. No pneumothorax evident. Central congestive change and bibasilar pulmonary atelectasis versus pneumonia. Developing possible nodular opacity left upper lobe. Follow-up exam advised. Reviewed, dictated and finalized at location . Impression: Support tubes, as above. No pneumothorax evident. Central congestive change and bibasilar pulmonary atelectasis versus pneumonia. Developing possible nodular opacity left upper lobe. Follow-up exam advised.
--- NOTE | ~2024-05-27 | CT_ITS ---
EXAMINATION: CTA chest abdomen pelvis DATE: 05/27/2024 14:02 INDICATION: CODE BLUE TECHNIQUE: Computed tomography (CT) of the chest, abdomen and pelvis was performed without intravenou s contrast. The dose-length product was 748.54 mGy-cm. COMPARISON: None FINDINGS: CHEST CT: Endotracheal tube tip extends minimally into the orifice of the left mainstem bronchus. Nasogastric t ube tip in the body the stomach. Large-bore dual-lumen tunneled right internal jugular central venous catheter with distal tip at the high right atrium. Patchy groundglass opacities scattered throughout both lungs. More dense consolidation without volume loss in the dependent right lower lobe. Findings most consistent with multifocal pneumonia. Chronic tree-in-bud opacities including multiple tiny calcified nodules anteriorly in the bilateral upper lob es and lingula which could be related to either old granulomatous disease or potentially dystrophic c alcification related to renal osteodystrophy. No pleural effusion. Cardiomegaly with left atrial and ventricular enlargement. Left atrial appendage occlusion device.. Atherosclerotic coronary artery saranya cifications. No pericardial effusion. Thoracic aorta is normal in caliber with no dissection. Enlarge ment of the central pulmonary arteries consistent with pulmonary arterial hypertension. No pulmonary embolism. No pathologically enlarged thoracic lymphadenopathy. With moderate to severe thoracic spond ylosis with chronic minimal to mild anterior wedging at a few mid and lower thoracic vertebral bodies . Partially visualized lower cervical effacement of anterior and posterior spinal fusion. ABDOMEN/PELVIS CT: Suture line along the greater curvature of the stomach likely related to prior sleeve gastrectomy. Sm all sliding-type hiatal hernia with portion of the suture line extending above level of the diaphragm . There are couple attenuation hepatic cysts measuring up to 1.3 cm. Cholecystectomy clips the gallbl adder fossa. Spleen, pancreas and bilateral adrenal glands are normal. Moderate to severe bilateral r enal atrophy with multiple bilateral renal cysts measuring up to 2.0 cm the upper poles of both kidne ys. Normal appendix. Moderate scattered diverticulosis with descending and sigmoid colon predominance . There is inflammatory stranding about the distal descending colon consistent with diverticulitis. N o bowel obstruction. Hoover catheter within the decompressed bladder. The uterus is not identified and has likely been surgically resected. No abscess or free intraperitoneal gas or fluid. No pathologica lly enlarged abdominal or pelvic lymphadenopathy. There is calcified atherosclerosis of the aorta and many of the other arteries. Moderate lumbar spondylosis. Osteonecrosis at the bilateral femoral head s. IMPRESSION: 1. Diffuse bilateral lung disease with most dense consolidation in the dependent right lower lobe. Wo uld favor multifocal pneumonia over pulmonary edema. 2. Radiographically uncomplicated distal descending colon diverticulitis. 3. Endotracheal tube tip at the entrance to the left mainstem bronchus. Recommend withdrawal by 3 cm. This and the above 2 findings were discussed with Dr. Gordon at 2:30 PM. 4. Cardiomegaly with left heart predominance. 5. Enlargement of the central pulmonary arteries consistent with pulmonary arterial hypertension. No evident pulmonary embolism. 5. Small sliding-type hiatal hernia. 6. Severe bilateral renal atrophy. 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 Reviewed, dictated and finalized at location [facility]. IMPRESSION: 1. Diffuse bilateral lung disease with most dense consolidation in the dependen t right lower lobe. Would favor multifocal pneumonia over pulmonary edema. 2. Radiographically uncomplicated distal descending colon diverticulitis. 3. Endotracheal tube tip at the entrance to the left mainstem bronchus. Recomme nd withdrawal by 3 cm. This and the above 2 findings were discussed with Dr. Devin feng at 2:30 PM. 4. Cardiomegaly with left heart predominance. 5. Enlargement of the central pulmonary arteries consistent with pulmonary alton rial hypertension. No evident pulmonary embolism. 5. Small sliding-type hiatal hernia. 6. Severe bilateral renal atrophy. 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
--- NOTE | ~2024-05-27 | XR_ITS ---
XR abdomen gastric tube insert INDICATION: Evaluate NG tube position. TECHNIQUE: Limited KUB perform for evaluating NG tube . COMPARISON: No prior studies for comparison. FINDINGS: NG tube tip in the stomach. Visualized bowel gas pattern is unremarkable.There is residual barium in colonic diverticula throughout the abdomen. There is severe lumbar spondylosis with levosc oliosis. IMPRESSION: 1: NG tube tip in the stomach. Reviewed, dictated and finalized at location A.
--- NOTE | ~2024-05-27 | XR_ITS ---
XR chest ET placement Ordering provider: Bahman Gordon MD History: 68 years Female with . code blue, ETT placement . Comparison: April 01, 2024 FINDINGS: MEDIASTINUM: The cardiac silhouette is moderately enlarged. Right central line with the tip overlying the superior vena cava. Nasogastric tube extending to the stomach. Endotracheal tube with the tip ab ove the pablo by about 1.5 cm. Retraction is advised. Congestive tammi. LUNGS: No effusions or pneumothorax. Opacification in the right and left upper and lower lobes. OTHER: No free air under the diaphragm. Degenerative changes of the spine. Postoperative changes in t he cervical spine. IMPRESSION: Bilateral upper and lower lobe pneumonia. Underlying pulmonary edema is also seen. Reviewed, dictated and finalized at location A. IMPRESSION: Bilateral upper and lower lobe pneumonia. Underlying pulmonary edema is also se en.
--- NOTE | ~2024-05-27 | CT_ITS ---
CT Scan of the Chest without Contrast: Clinical Indication: Pneumothorax Technique: Contiguous sections were acquired throughout the chest without intravenous contrast. Dose reduction technique was used on this scan by utilizing automated exposure control and iterative recon struction technique. The dose-length product (DLP) was 345.20 mGy-cm. COMPARISON: 05/27/2024 Findings: Endotracheal tube and NG tube are in place. There is no evidence of any significant mediastinal, hilar or axillary lymphadenopathy. Probable left atrial appendage closure device. Cardiomegaly noted. No pericardial effusion. There are extensive at herosclerotic calcifications of the coronary arteries. Probable minimal pleural fluid bilaterally. Ypypw-rd-emkokiyn right pneumothorax present. Bibasilar consolidation/atelectasis and/or aspiration p neumonia, with probable hyperdense aspirated material present. Additional hyperintense aspirated mate rial present anteriorly in the left upper lobe and right upper lobe. Images through the upper abdomen reveal no abnormalities. Impression: Eglfl-iu-hboqrxim right pneumothorax. Bibasilar consolidation with scattered hyperdense material the lungs is compatible with aspiration pn eumonia and/or bibasilar atelectasis. Correlate clinically. Minimal pleural fluid bilaterally. Reviewed, dictated and finalized at location . Impression: Ahwyp-pg-jrvyqsie right pneumothorax. Bibasilar consolidation with scattered hyperdense material the lungs is compati ble with aspiration pneumonia and/or bibasilar atelectasis. Correlate clinicall y. Minimal pleural fluid bilaterally.
--- NOTE | ~2024-05-27 | XR_ITS ---
Portable chest x-ray Comparison: 05/27/2024 Clinical History: Intubation Findings: Endotracheal tube, NG tube, and right-sided central venous line are in place. There is pro bable mild bibasilar pulmonary edema with minimal pleural effusions. Increasing focal hazy opacity le ft upper lobe. Cardiomediastinal silhouette is stable. Extensive spinal fixation hardware the cervic al spine is present. Impression: Probable mild bibasilar pulmonary edema/atelectasis with minimal pleural effusions. Developing hazy airspace opacity left upper lobe which could reflect additional pulmonary edema versu s possibly focal pneumonia. Support tubes, as above. Reviewed, dictated and finalized at location M. Impression: Probable mild bibasilar pulmonary edema/atelectasis with minimal pleural effusi ons. Developing hazy airspace opacity left upper lobe which could reflect additional pulmonary edema versus possibly focal pneumonia. Support tubes, as above.
--- NOTE | ~2024-05-27 | XR_ITS ---
Portable chest x-ray Comparison: 05/28/2024 Clinical History: Intubation Findings: Endotracheal tube, NG tube, and right-sided central venous line are in place. Right apical pneumothorax is present. There is central congestive change with chronic interstitial disease and/or interstitial edema. Probable minimal left pleural effusion. Cardiomediastinal silhouette is stable. Bones and soft tissues are unremarkable. Impression: Right apical pneumothorax, overall small in degree, new from prior exam. Chronic interstitial disease and/or interstitial edema. Minimal left pleural effusion. Support tubes, as above. Findings reported to the covering hospitalist at the time of this reading. Reviewed, dictated and finalized at location M. Impression: Right apical pneumothorax, overall small in degree, new from prior exam. Chronic interstitial disease and/or interstitial edema. Minimal left pleural ef fusion. Support tubes, as above. Findings reported to the covering hospitalist at the time of this reading.
--- NOTE | ~2024-05-27 | CT_ITS ---
EXAMINATION: CT brain wo con DATE: 05/27/2024 14:02 INDICATION: CODE BLUE TECHNIQUE: Computed tomography (CT) of the head was performed without intravenous contrast. Sagittal and coronal reconstructions were performed. The mA was adjusted according to patient size. Iterative reconstruction technique was employed. The dose-length product was 605.33 mGy-cm. COMPARISON: head CT dated 08/09/2021 FINDINGS: No acute intracranial hemorrhage, acute infarction or abnormal extra axial fluid collection. There is unchanged mild scattered white matter hypoattenuation consistent with chronic small vessel ischemic disease.. Symmetric prominence of the sulci consistent with mild age-appropriate diffuse cerebral vol ume loss. Ventricles are normal and symmetric. No mass/mass effect. Intracranial calcified cerebral atherosclerosis is noted at the left vertebral artery and bilateral carotid siphons.. Changes of bila teral intraocular lens replacement. The orbits, paranasal sinuses and mastoid air cells are normal. Partially visualized endotracheal tube in the oral cavity. IMPRESSION: 1. No acute intracranial process. 2. Age-related changes including mild diffuse volume loss and unchanged mild scattered nonspecific ce rebral white matter hypoattenuation consistent with chronic small vessel ischemic disease. Reviewed, dictated and finalized at location A. IMPRESSION: 1. No acute intracranial process. 2. Age-related changes including mild diffuse volume loss and unchanged mild sc attered nonspecific cerebral white matter hypoattenuation consistent with chron ic small vessel ischemic disease.
--- NOTE | 2024-05-27 12:31 | ECG_ITS ---
Test Date: 2024-05-27 12:27:31 Measurements Intervals [place] Rate: 108 P: 0 CA: 0 QRS: -77 QRSD: 134 T: 95 QT: 306 QTc: 410 Interpretive Statements ATRIAL FIBRILLATION WITH RAPID VENTRICULAR RESPONSE LEFT BUNDLE BRANCH BLOCK BASELINE ARTIFACT- I, II, III, AVR ABNORMAL ECG Compared to ECG 03/27/2024 14:45:49 ATRIAL FIBRILLATION NOW PRESENT Electronically Signed On 05-27-2024 12:52:30 CDT by Heath Grande D.O.
--- NOTE | 2024-05-27 12:48 | ECG_ITS ---
Test Date: 2024-05-27 13:10:59 Measurements Intervals [place] Rate: 103 P: 213 [place]: 121 QRS: -69 QRSD: 137 T: 93 QT: 363 QTc: 475 Interpretive Statements ATRIAL FLUTTER/ACHYCARDIA WITH RAPID VENTRICULAR RESPONSE LEFT BUNDLE BRANCH BLOCK BASELINE ARTIFACT- I, II, AVR ABNORMAL ECG Compared to ECG 05/27/2024 12:27:31 ATRIAL FIBRILLATION NO LONGER PRESENT Electronically Signed On 05-27-2024 13:57:29 CDT by Heath Grande D.O.
--- NOTE | 2024-05-27 12:55 | ED_ITS ---
HPI - General Adult General Chief complaint: Cardiac Arrest/CPR Stated complaint: Cardiac arrest Time Seen by Provider: 05/27/24 11:58 History of Present Illness HPI narrative: Patient is a 68-year-old female who presents ER in cardiac arrest. Patient was in her car with family after undergoing dialysis when she collapsed. 911 was called. They met EMS and CPR was initiated. Patient intubated with a 7 no ET tube. With the she received IV calcium, epinephrine, and CPR. Patient did have ventricular fibrillation and so she received amiodarone 300 mg. The patient had 1 episode of pulseless electrical activity but otherwise has been in ventricular fibrillation. Accu-Chek in the 130s on arrival. Patient has history of CVA. She has a nonfunctional AV fistula on the left side. She has a dialysis catheter at the right chest wall. There is intraosseous line in the left tibia. Patient is known to have a Watchman device which was placed on December 31 at [facility]. Patient sees neurology at [facility] for her CVA issues. Related Data Home Medications ?Medication ?Instructions ?Recorded ?Confirmed ?Last Taken ?Type acetaminophen 500 mg tablet 500 mg PO QID PRN Fever Or Pain 10/18/23 03/25/24 Unknown History cholecalciferol (vitamin D3) 25 3,000 unit PO DAILY 10/18/23 03/25/24 03/24/24 09:00 History mcg (1,000 unit) tablet (Vitamin D3) cinacalcet 30 mg tablet (Sensipar) 60 mg PO QMWF 10/18/23 03/25/24 03/25/24 10:00 History fluoxetine 10 mg capsule (Prozac) 10 mg PO DAILY 10/18/23 03/25/24 03/25/24 09:00 History midodrine 5 mg tablet 15 mg PO TIDWMEAL 10/18/23 03/25/24 03/25/24 09:00 History aspirin 81 mg tablet,delayed 81 mg PO DAILY 03/25/24 03/25/24 03/24/24 09:00 History release (Adult Aspirin Regimen) gabapentin 100 mg capsule 200 mg PO BID 03/25/24 03/25/24 03/24/24 17:00 History lanthanum 1,000 mg chewable tablet 1,000 mg PO .with meals 03/25/24 03/25/2425 09:00 History omeprazole 20 mg capsule,delayed 20 mg PO BID 03/25/24 03/25/24 03/24/24 21:00 History release clopidogrel 75 mg tablet 75 mg PO DAILY 03/28/24 03/28/24 Unknown History Allergies Allergy/AdvReac Type Severity Reaction Status Date / Time lisinopril Allergy Unknown Unknown Verified 03/25/24 16:07 propoxyphene Allergy Unknown Unknown Verified 03/25/24 16:07 valsartan Allergy Unknown lost voice Verified 03/25/24 16:07 Review of Systems 2 Review of Systems: ROS unobtainable: Yes unobtainable due to medical condition [facility] Past Medical History Medical History (Updated 05/27/24 @ 15:10 by Bahman Gordon MD) Hx of completed stroke 10/05/23 small left occipital lobe stroke after c-spine surgery Chronic hypotension Chronic obstructive pulmonary disease Hypotension On midodrine. Chronic anticoagulation Renal osteodystrophy Combined systolic and diastolic congestive heart failure Echo 10/2012: severe LV enlargement, moderate LV dysfunction with wall motion abnormality at the inferior basal segment, EF 44%, grade 2 diastolic dysfunction. Non-ischemic cardiomyopathy Negative cardiac catheterization showing no obstructive coronary disease in 2003 at [place] [facility]. EF at that time was 20% but has improved to 54% in 02/2015. Chronic anemia History of blood transfusions. Hypothyroidism Gout Kidney stones Peptic ulcer (07/2003) Gastroesophageal reflux disease Deep venous thrombosis (02/2013) Paroxysmal atrial fibrillation s/p Watchman Obstructive sleep apnea End-stage renal disease on hemodialysis (09/2009) Type II diabetes mellitus Complicated by peripheral neuropathy and nephropathy. Asthma Diverticulosis Anxiety Hyperlipidemia Surgical History Surgical History (Updated 03/25/24 @ 12:52 by Saul العلي MD) Hx of cervical spine surgery C3-C6 laminectomies, C2-C7 instrumented posterior spinal fusion on 10/05/23 at [facility] Presence of Watchman left atrial appendage closure device 02/08/24 History of colonoscopy with polypectomy History of cardiac catheterization (08/20/13) Normal coronary arteries per Dr. Oliveros at [facility]. Status post creation of arteriovenous fistula Left forearm. History of parathyroidectomy History of cystoscopy (03/2012) History of sleeve gastrectomy (2013) History of cardiac radiofrequency ablation (1993) For SVT. History of mandibular surgery (1987) For TMJ. History of angioplasty History of myomectomy History of cholecystectomy (2014) History of section History of hysterectomy (1993) Family History Family History Mother Hypertension Family history of congestive heart failure Family history of congenital heart disease Family history of arthritis Family history of kidney disease Family history of chronic obstructive pulmonary disease Father Carcinoma of colon Sibling Family history of diabetes mellitus in first degree relative Grandparent Family history of congestive heart failure Diabetes mellitus Father Carcinoma of colon Mother Diabetes mellitus Acute myocardial infarction Hypertension Hyperlipidemia Grandparent Diabetes mellitus Acute myocardial infarction Stomach cancer Other Family history of cardiovascular disease Social History Social History (Updated 03/25/24 @ 12:45 by Saul العلي MD) Social History: Lives alone. Never smoker. No alcohol use. No drug use or hx of drug use. No pets. Surrogate decision maker: Sara Tobin Code status: Full code. Smoking status: Never smoker Second hand tobacco smoke exposure: No Alcohol intake: never Substance use: never Substance use type: does not use Do You Feel Safe in your Home?: Yes Lack of Transportation: No Lack of Food: Sometimes True Current Housing: I Have Housing Concerned About Future Housing: No Difficulty Paying Gas/Electric Bills: No Difficulty Paying for Meds: No Currently Unemployed: No Education: Decline to Answer Difficulty w/ Childcare or Family Care: No Additional living arrangements comments: Lives in [place]. 3 grown children. 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 Spiritual care concerns: No Exam 2 Narrative: GENERAL: Unresponsive, well-nourished. HEAD: Normocephalic, atraumatic. EYES: Pupils fixed and mid dilated. ENT: Nares clear, no rhinorrhea or epistaxis. Mucous membranes moist. NECK: Supple. CHEST: Clear to auscultation on ventilator without contrast respiration. HEART: Regular rate and rhythm after to heaving ROSC. Normal peripheral pulses. ABDOMEN: Soft, nontender, nondistended. EXTREMITIES: Normal range of motion. No edema. SKIN: Warm, dry, no rash. NEURO: GCS 3 Course Course Emergency Course: Patient with 45 minute resuscitation. . Multiple rounds of epinephrine and, 3 boluses of sodium bicarb, patient received an additional amiodarone bolus of 150 mg making it a total of 450 mg that she received, she also received 1 amp calcium chloride. Patient had multiple shocks for ventricular fibrillation and then finally return of spontaneous circulation was achieved 5 minute after amiodarone. No STEMI on EKG. Nephrology, Interventional Cardiology, and the confidential investigator involving consulted. Patient has been accepted by the hospitalist service. I have had multiple conversations with the patient's family about the diagnosis and treatment plan. Blood cultures were ordered but antibiotics were given as soon as possible given her pneumonia and critical ability. Avoiding 30 milliliter/kilogram IV fluid bolus due to end-stage renal disease and dialysis dependence. Patient is critically ill and has not shown any spontaneous movements other than a few moments where she blinked her eyes. Respiratory therapy will pull ET tube back 3cm. Vital Signs Vital signs: Vital Signs Pulse Oximetry 97 05/27/24 11:45 Oxygen Delivery Bag Valve Mask 05/27/24 11:45 Temperature 98.2 F 05/27/24 14:26 Pulse Rate 114 H 05/27/24 14:40 Respiratory Rate 27 H 05/27/24 14:40 Blood Pressure 182/162 H 05/27/24 14:26 Pulse Oximetry 100 05/27/24 14:26 Oxygen Delivery Mechanical Ventilation 05/27/24 14:05 Fraction of Inspired Oxygen 50 05/27/24 14:05 Medical Decision Making Vital Signs Vital Signs: Vital Signs Pulse Oximetry 97 05/27/24 11:45 Oxygen Delivery Bag Valve Mask 05/27/24 11:45 Temperature 98.2 F 05/27/24 14:26 Pulse Rate 114 H 05/27/24 14:40 Respiratory Rate 27 H 05/27/24 14:40 Blood Pressure 182/162 H 05/27/24 14:26 Pulse Oximetry 100 05/27/24 14:26 Oxygen Delivery Mechanical Ventilation 05/27/24 14:05 Fraction of Inspired Oxygen 50 05/27/24 14:05 Lab Data 05/27/24 12:52 05/27/24 12:52 Labs: Lab Results 05/27/24 05/27/24 Range/Units 12:52 14:51 WBC 20.8 H (4.5-10.0) K/mm3 RBC 3.57 L (4.2-5.4) M/mm3 Hgb 9.3 L (12.0-15.0) g/dL Hct 32.9 L (37.0-47.0) % MCV 92.2 (80-100) fl MCH 26.1 (26-34) pg MCHC 28.3 L (32-36) g/dl RDW 17.1 H (11.5-14.5) % Plt Count 352 (150-375) k/mm3 MPV 10.3 (7.4-10.4) fl Immature Gran % (Auto) 6.1 H (0-0.5) % Neut % (Auto) 49.2 (45.5-73.1) % Lymph % (Auto) 40.0 (18.3-44.2) % [place] % (Auto) 3.4 (2.6-8.5) % Eos % (Auto) 1.1 (0-4.4) % Baso % (Auto) 0.2 (0.2-1.2) % Lymph # (Auto) 8.30 H (0.9-3.2) K/mm3 [place] # (Auto) 0.7 H (0.1-0.6) K/mm3 Eos # (Auto) 0.2 (0-0.3) K/mm3 Baso # (Auto) 0.1 (0.0-0.1) K/mm3 Abs Immat Gran (auto) 1.27 H (0.00-0.031) K/mm3 Absolute Neuts (auto) 10.2 H (1.3-6.7) K/mm3 Absolute Nucleated RBC 0.090 H (0.0-0.012) K/mm3 Band Neutrophils % Not Reportable Nucleated RBC % 0.4 H (0.0-0.2) % Atypical Lymphocytes Present Platelet Estimate Adequate (Adequate) Anisocytosis 1+ Schistocytes None seen PT 15.2 H (11.1-14.7) Seconds INR 1.2 APTT 35.9 (22.3-36.8) Seconds Sodium 139 (137-145) mmol/L Potassium 4.2 (3.4-5.0) mmol/L Chloride 95 L (98-107) mmol/L Carbon Dioxide 22 (22-30) mmol/L Anion Gap 22 H (4-12) mmol/L BUN 20 H D (7-17) mg/dL Creatinine 5.62 H (0.7-1.0) mg/dL Estim Creat Clear Calc 8 ml/min Estimated GFR 7 L (59 - ) Glucose 276 H (65-110) mg/dL Lactic Acid 11.3 H* (0.7-2.0) mmol/L Calcium 11.2 H (8.4-10.2) mg/dL Total Bilirubin 0.8 (0.2-1.3) mg/dL AST 271 H (14-36) U/L ALT 135 H (6-35) U/L Alkaline Phosphatase 142 H (38-126) U/L Troponin I 0.131 H* (0.000-0.034) ng/mL NT-Pro-B Natriuret Pep > 30201 H (19.9-100) pg/mL Total Protein 7.0 (6.3-8.2) g/dL Albumin 3.7 (3.5-5.1) g/dL Procalcitonin 1.2 ng/mL Digoxin Pending Imaging Data Radiologist's impression: ITS Impressions Abdomen X-Ray 05/27/24 13:15 IMPRESSION: 1: NG tube tip in the stomach. Chest X-Ray 05/27/24 13:16 IMPRESSION: Bilateral upper and lower lobe pneumonia. Underlying pulmonary edema is also seen. Head CT 05/27/24 14:03 IMPRESSION: 1. No acute intracranial process. 2. Age-related changes including mild diffuse volume loss and unchanged mild scattered nonspecific cerebral white matter hypoattenuation consistent with chronic small vessel ischemic disease. Chest/Abdomen/Pelvis CTA 05/27/24 14:18 IMPRESSION: 1. Diffuse bilateral lung disease with most dense consolidation in the dependent right lower lobe. Would favor multifocal pneumonia over pulmonary edema. 2. Radiographically uncomplicated distal descending colon diverticulitis. 3. Endotracheal tube tip at the entrance to the left mainstem bronchus. Recommend withdrawal by 3 cm. This and the above 2 findings were discussed with Dr. Gordon at 2:30 PM. 4. Cardiomegaly with left heart predominance. 5. Enlargement of the central pulmonary arteries consistent with pulmonary arterial hypertension. No evident pulmonary embolism. 5. Small sliding-type hiatal hernia. 6. Severe bilateral renal atrophy. 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 ECG Data EKG #1: ECG completion date: 05/27/24 ECG completion time: 13:10 EKG Interpretation: tachycardia (103), sinus rhythm and LBBB Critical Care Time Critical Care Time Critical Care Time: Yes Total Critical Care Time: 75 Discharge Plan Discharge Clinical Impression: Cardiac arrest with ventricular fibrillation, Pneumonia, Severe sepsis, Diverticulitis Patient Disposition: Still a Patient Condition: Critical Patient Language: Marshallese Prescriptions: No Action aspirin [Adult Aspirin Regimen] 81 mg tablet,delayed release (DR/EC) 81 mg PO DAILY omeprazole 20 mg capsule,delayed release(DR/EC) 20 mg PO BID gabapentin 100 mg Capsule 200 mg PO BID lanthanum 1,000 mg Tablet,Chewable 1,000 mg PO .with meals Rx Instructions: And snacks clopidogrel 75 mg tablet 75 mg PO DAILY levofloxacin 500 mg tablet 500 mg PO DAILY 1 Days Qty: 1 0RF fluticasone propionate 220 mcg/actuation HFA aerosol inhaler 2 puff inhalation Q12H Qty: 12 0RF albuterol sulfate [Ventolin HFA] 90 mcg/actuation HFA aerosol inhaler 2 inh inhalation Q4H PRN (Reason: shortness of breath or wheezing) Qty: 8.5 0RF albuterol sulfate 1.25 mg/3 mL solution for nebulization 1.25 mg inhalation Q4H PRN (Reason: shortness of breath or wheezing) Qty: 90 0RF tizanidine 4 mg capsule 4 mg PO QHS PRN (Reason: muscle spasticity) Qty: 30 3RF Rx Instructions: may substitute tizanidine hcl if insurance wants this. acetaminophen 500 mg Tablet 500 mg PO QID PRN (Reason: Fever Or Pain) midodrine 5 mg tablet 15 mg PO TIDWMEAL fluoxetine [Prozac] 10 mg capsule 10 mg PO DAILY cinacalcet [Sensipar] 30 mg tablet 60 mg PO QMWF cholecalciferol (vitamin D3) [Vitamin D3] 25 mcg (1,000 unit) tablet 3,000 unit PO DAILY latanoprost [Xalatan] 0.005 % Drops 1 drp EACH EYE HS 30 Days Qty: 2.5 0RF atorvastatin 40 mg Tablet 40 mg PO HS 30 Days Qty: 30 0RF digoxin 125 mcg (0.125 mg) Tablet 125 mcg PO SuTh 30 Days Qty: 9 0RF fluticasone propionate 50 mcg/actuation [place],Suspension 2 spray intranasal DAILY 30 Days Qty: 16 0RF Artificial Tears([id number]) 1-0.2-0.2 % Drops 1 drp EACH EYE TID PRN (Reason: Dry Eyes) 30 Days Qty: 15 0RF montelukast [Singulair] 10 mg Tablet 10 mg PO HS 30 Days Qty: 30 0RF oxycodone 5 mg Tablet 5 mg PO Q6H PRN (Reason: Pain Rated 4-10) Qty: 28 0RF calcium acetate(phosphat bind) 667 mg Tablet 667 mg PO BIDWM Qty: 60 0RF lidocaine [Lidocaine Pain Relief] 4 % Adhesive Patch,Medicated 1 patch topical DAILY Qty: 30 0RF Patient Comments: left back Dialyvite 800 0.8 mg tablet 1 tablet PO DAILY Qty: 30 0RF Follow-up/Referrals: UNKNOWN,DOCTOR [Primary Care Provider] -
[2024-05-27 12:58] LABS: Basophils Absolute Auto 0.1 K/mm3 (0.0-0.1); Basophils Percent Auto 0.2 % (0.2-1.2); Eosinophils Absolute Auto 0.2 K/mm3 (0-0.3); Eosinophils Percent Auto 1.1 % (0-4.4); Hematocrit 32.9 % (37.0-47.0); Hemoglobin 9.3 g/dL (12.0-15.0); Immature Granulocyte Absolute 1.27 K/mm3 (0.00-0.031); Immature Granulocyte Percent A 6.1 % (0-0.5); Mean Corpuscular HGB Conc 28.3 g/dl (32-36); Mean Corpuscular Hemoglobin 26.1 pg (26-34); Mean Corpuscular Volume 92.2 fl (80-100); Mean Platelet Volume 10.3 fl (7.4-10.4); Monocytes Absolute Auto 0.7 K/mm3 (0.1-0.6); Monocytes Percent Auto 3.4 % (2.6-8.5); Neutrophils Absolute Auto 10.2 K/mm3 (1.3-6.7); Neutrophils Percent Auto 49.2 % (45.5-73.1); Nucleated Red Blood Cells Perc 0.4 % (0.0-0.2); Platelet Count Result 352 k/mm3 (150-375); Red Blood Count 3.57 M/mm3 (4.2-5.4); Red Cell Distribution Width 17.1 % (11.5-14.5); White Blood Count 20.8 K/mm3 (4.5-10.0)
--- NOTE | 2024-05-27 13:04 | PCCCNOTE ---
Spoke with the family when they entered the building to gain further information about the pt before being brought into the ED. The daughter Sara was driving the pt from [facility] back to [place] and the pt became unresponsive. Stated it lasted about 5 minutes until she was able to stop and get help from EMS. Stated this morning the pt had a fever of 104, just had dialysis, was in afib and had been c/o back pain for the last week. Stated the pt had a TIA 10/13 and hx of [place] with a watchman device but unsure of the date. Pt is unmarried and has 4 children. Sara is the main caregiver and the eldest child is a male child. Family gave permission if CPR stopped to let nature take it's place. CM walked to the room to share this information with the provider and informed the pt has a pulse on her own. ED provider updated the family on her status.-karissa
[2024-05-27 13:18] LABS: Albumin Level 3.7 g/dL (3.5-5.1); Alkaline Phosphatase 142 U/L (38-126); Anion Gap 22 mmol/L (4-12); Aspartate Amino Transferase 271 U/L (14-36); Bilirubin,Total 0.8 mg/dL (0.2-1.3); Blood Urea Nitrogen 20 mg/dL (7-17); Calcium 11.2 mg/dL (8.4-10.2); Carbon Dioxide 22 mmol/L (22-30); Chloride 95 mmol/L (98-107); Estimated CRCL calculation 8 ml/min; Estimated Glomerular Filt Rate 7; Glucose 276 mg/dL (65-110); Potassium 4.2 mmol/L (3.4-5.0); Sodium 139 mmol/L (137-145)
[2024-05-27 13:22] LABS: NT Pro B Type Natriuretic Pept > 30000 pg/mL (19.9-100)
[2024-05-27 13:25] LABS: INR 1.2; Prothrombin Time 15.2 Seconds (11.1-14.7)
[2024-05-27 13:26] LABS: Partial Thromboplastin Time 35.9 Seconds (22.3-36.8)
[2024-05-27 13:31] LABS: Troponin I 0.131 ng/mL (0.000-0.034)
[2024-05-27 13:32] LABS: Lactic Acid Reflex 11.3 mmol/L (0.7-2.0)
[2024-05-27 13:35] LABS: Atypical Lymphocytes Present; Platelet Estimate Adequate (Adequate); Schistocytes None Seen
[2024-05-27 13:36] LABS: Anisocytosis 1+
[2024-05-27 13:38] LABS: Alanine Aminotransferase 135 U/L (6-35)
[2024-05-27 13:48] LABS: Procalcitonin 1.2 ng/mL
--- OUTSIDE RECORDS SUMMARY | 2024-05-27 13:52 | XMS_ITS | Clinical Summary ---
Author Organization [facility] Address [address] [place] [address] Care Team Providers Care Strategic Planning Consultant Name Role Phone Farrukh Solorzano MD Unavailable [phone] Keya Reina MD Unavailable Unavailable Osmar Zambrano MD Unavailable Francisco Tobin MD Unavailable Jc Moreau MD Unavailable Ryland Alves MD Unavailable Lorene Ly MD Unavailable Care, [facility] Unavailable Carrol Pitts MD, Joseph Theodore Unavailable Carrol Pitts MD, Federico Howe Primary Care Provider Octavia Parry SENIOR STEREO COMPILER TEAM LEAD-GLOBAL SUPPLY CHAIN VICE PRESIDENT Unavailable [phone] Source Comments [facility],non-owned Affiliates and Associated Physician Practices is amultiple site organization consisting of ambulatory clinics and hospital sitesin [place], [place], [place] and [place]. This disclosure is being madepursuant to the Care Everywhere program and may not contain all information available regarding this patient. Last updated 17.[facility] Health Allergies Active Allergy Reactions Criticality Noted [...] WITH MEALS AND 1 TABLET WITH SNACKS 06/08/2020 Active calcium acetate (PHOSLO) 667 MG capsule Take 1 (one) capsule by mouth 2 times daily, before breakfast and supper 02/07/2021 Active acetaminophen (Tylenol) 500 MG tablet Take 1 (one) tablet by mouth every 4 hours as needed for Fever or Pain Maximum allowable Acetaminophen amount = 4 Grams (4000 mg) / 24 hours. Active VITAMIN D PO Take 3,000 Units by mouth once daily Active fluticasone propionate (Flonase) 50 MCG/ACT nasal spray [place] 2 (two) sprays into each nostril once daily Make sure to shake bottle first 48 g 3 07/19/2023 Active B Uoxhyyn-X-Yjnwc Acid (Dialyvite 800) 0.8 MGIndications:E nd stage renal disease on dialysis (HCC) Take 1 tablet by mouth once daily 100 tablet 4 09/25/2023 Active artificial tears ophthalmic solution Instill 1 (one) drop into both eyes 3 times daily as needed 10/18/2023 Active digoxin (Lanoxin) 0.125 MG tablet Take 1 (one) tablet by mouth every & Monday Takes on 10/22/2023 Active tiZANidine (Zanaflex) 4 MG tablet Take 1 (one) tablet by mouth every 8 hours as needed for Muscle Spasms 90 tablet 1 12/08/2023 Active midodrine (Proamatine) 5 MG tablet Take 3 (three) tablets by mouth 3 times daily with meals 300 tablet 3 12/22/2023 Active atorvastatin (Lipitor) 40 MG tablet Take 1 (one) tablet by mouth at bedtime 100 tablet 3 12/22/2023 Active FLUoxetine (PROzac) 20 MG capsule Take 1 (one) capsule by mouth once daily 100 capsule 3 12/22/2023 Active Additional Information Patient taking differently: 10 mgOral DAILY, Reason: Provider adjusted, Reported on 02/08/2024 omeprazole (PriLOSEC) 20 MG capsule Take 1 (one) capsule by mouth 2 times daily 90 capsule 3 12/22/2023 Active aspirin (Aspirin) 81 MG chew tablet Take 1 (one) tablet by mouth once daily 100 tablet 02/08/2024 Active clopidogrel (plaVIX) 75 MG tablet Take 1 (one) tablet by mouth once daily 90 tablet 02/08/2024 Active Additional Information Patient not taking.Reported on 05/27/2024 albuterol (Proventil;Vent neha) (2.5 MG/3ML) 0.083% nebulizer solution Inhale 2.5 (two and one-half) mg by mouth every 4 hours as needed for Shortness of Breath 210 mL 04/12/2024 Active levalbuterol (Xopenex) 45 MCG/ACT inhaler Inhale 2 (two) puffs by mouth 2 times daily as needed Using prn 45 g 04/12/2024 Active metoprolol succinate XL 24hr (Toprol XL) 25 MG tablet Take 1 (one) tablet by mouth once daily 90 tablet 4 04/18/2024 Active latanoprost (Xalatan) 0.005 % ophthalmic solution Instill 1 (one) drop into both eyes at bedtime 7.5 mL 11 05/17/2024 Active latanoprost (Xalatan) 0.005 % ophthalmic solution Instill 1 (one) drop into both eyes at bedtime 7.5 mL 11 05/22/2023 5 Discontinue d(Reorder) gabapentin (Neurontin) 100 MG capsule Take 1 (one) capsule by mouth 2 times daily 200 capsule 3 12/22/2023 5 Discontinue d(List Clean-Up) budesonide-form oterol (Symbicort) 160-4.5 MCG/ACT inhaler Inhale 2 (two) puffs by mouth 2 times daily 40.8 g 04/12/2024 5 Discontinue d(List Clean-Up) methylPREDNISol one (Medrol Dosepak) 4 MG tablet Take by mouth as directed <!--EPICS-->Follow package insert dosing for six day supply.<!--EPICE-- > 21 tablet 04/25/2024 5 Discontinue d(List Clean-Up) methylPREDNISol one (Medrol Dosepak) 4 MG tablet Take by mouth as directed Take as directed by mouth per package instructions. 21 tablet 04/25/2024 5 Discontinue d(List Clean-Up) Active Problems Problem Noted Date Diagnosed Date Aortic root dilatation 03/22/2024 Paroxysmal atrial fibrillation 02/01/2024 Assessment & Plan (05/05/2024 10:14 PM CDT): Follow-up with cardiology Continue dig and metoprolol per cardiology Follow w/ cardiology CVA (cerebral vascular accident) 12/22/2023 Assessment & Plan (12/23/2023 9:56 PM CDT): Lipitor Eliquis Follow w/ neurology Cord compression 10/05/2023 Assessment & Plan (05/05/2024 10:15 PM CDT): Following w/ ortho spine, recent surgery and still in follow-up Osteoporosis 12/29/2022 12/29/2022 Cervical stenosis of spine 12/29/2022 Overview (10/06/2023): In ICU for high- MAP goals with pressor needs Assessment & Plan (12/29/2022 10:02 AM MANUFACTURING ENGINEER): Gabapentin Lidocaine patch See Spine Surgery Pre-transplant evaluation for kidney transplant 12/19/2022 Overview (12/19/2022): Images from the original note were not included. Moy Tobin 1955 Referring Air Grinder: Jc Moreau Listing Date: Pt was previously listed with us on 12/09/2014 and de-listed in 2019 d/t low BPs, cardiac, high BMI s/p gastric sleeve and mobility Dialysis Info: Type: HD M,W,F Time: 09/23/2009 Blood Type: O NEG Pathology: 12/06/2022 TRANSFUSION MEDICINE SERVICE ANTIBODY EVALUATION Clinical Summary: The patient is a 67 year old woman who presented for urethrocystogram. Laboratory Evaluation: The patient's blood type is O-negative. Her antibody screen is positive. Further testing identified anti-D and anti-C antibodies. All other common, clinically significant antibodies are ruled out. The direct antiglobulin test (BROCK) is negative. The patient's [place] red blood cells are negative for the D-antigen and C- antigens. Assessment: The D and C antigens are members of the [employer] system. The immune response to these antigens is typically IgG and a result from previous exposure such as with transfusion or . Anti-D and anti-C antibodies are clinically significant in respect to their ability to cause hemolytic transfusion reactions. Recommendations: 1. Transfuse as clinically indicated. 2. If the patient requires future transfusion, we will provide group O, crossmatch-compatible units of blood that lack the D and C antigens. Approximately 5% of donors will lack these antigens. Laila Weathers, [facility] Pathology Resident 12/07/2022 7:49 AM I have reviewed and agree with the resident's interpretation and description of this case. Mendy Mccall MD Attending Physician Department of Pathology Transfusion Medicine Body mass index is 36.11 kg/m . Pt had gastric sleeve back in [address] Reveles on 12/08/2022 ALERTS: pt with sickle cell trait Medical Advisor: Pt needs to establish care, she has not been on any meds for DM since 2010 ESRD 2/2 DM2 and HTN Past Medical History: Diagnosis Date Anemia Anuria 2013 Arthropathy knee and back Asthma rescue inhalers Atrial fibrillation (CMS/HCC) dx'd in 1992, had cardiac ablations in 1992 and 2016, 1st ones at [facility] and 2nd one here at [facility], follows with electrical continuity tester Dr. Painting, on eliquis CHF (congestive heart failure) (CMS/HCC) 08/1996 EF 30-35% (4/14) Chronic back pain follows with pain management at [facility], gets back injections and takes tylenol if needed, no surgeries Community acquired pneumonia has had once/twice since started dialysis, would have 3-4 times per year prior to that COPD (chronic obstructive pulmonary disease) ([facility]) dx'd in 2021, follows with air defense artillery senior sergeant, was told she no longer has it in 2015, inhalers prn Coronary artery disease 07/08/2022 non-obstructive disease Diabetes mellitus ([facility]) dx'd in 2007, was on insulin from 07/2008 - 02/2010, no medicine since then, diet controlled, no paperhanger apprentice Diverticulitis of large intestine with perforation no abscess. treated [facility] antibx. DVT (deep venous thrombosis) ([facility]) BLE DVTs, pt was in hospital x 1 week, bed ridden, c/o leg pain, found BLE DVTs DVT of leg (deep venous thrombosis) ([facility]) 03/20/2013 DVT left leg, superficial right leg Esophageal reflux Esophageal stricture has had 2 dilatations, pt states if she does not take her PPIs then her esophagus starts to close up, EGDs completed here at [facility] ESRD on hemodialysis ([facility]) Generalized anxiety disorder Glaucoma History of blood transfusion HTN (hypertension) Hypercholesteremia Hyperparathyroidism ([facility]) had parathyroiectomy Hypertension 1988 Hypotension 2016 pt has been on midorine since then, is now down to 5mg on dialysis days only as of 10/21/2022 Hypoxemia has worn at home in past, hasn't worn in years CO (myocardial infarction) ([facility]) 2003 Morbid obesity ([facility]) Neuropathy Obstructive sleep apnea mild sleep apnea, last sleep study 09/2021 Peptic ulcer disease 1980s Primary gout 2008 RA (rheumatoid arthritis) ([facility]) 1994 no meds, no follow with rheumatology Sickle cell trait ([facility]) Sleep apnea 02/2002 uses CPAP without O2- compliant most nights Type 2 diabetes mellitus with hypertension and end stage renal disease on dialysis ([facility]) Ulcer 2003 VRE (vancomycin resistant enterococcus) culture positive 02/25/2018 rectal swab+ Past Surgical History: Procedure Laterality Date A-V FISTULA REVISION/REPAIR 03/15/2013 Left; REVISION OPEN ARTERIOVENOUS FISTULA ABLATION FOR ATRIAL FIBRILLATION/FLUTTER 05/21/1993 ABLATION FOR ATRIAL FIBRILLATION/FLUTTER 07/13/2016 Appendectomy 2015 BARIATRIC SURGERY, GASTRIC 01/23/2014 gastric sleeve CARDIAC CATH 08/2003, 2013, 2015, 2022 Cardiac Catherization N/A 07/08/2022 N/A; Left Heart Cath Cataract Removal Right 11/05/2020 Right; complex cataract extraction with intraocular lens implant Cataract Removal Left 11/19/2020 Left; complex cataract extraction with intraocular lens implant Section x1 COLONOSCOPY N/A 09/26/2017 N/A; COLONOSCOPY WITH POLYPECTOMY COLONOSCOPY N/A 10/09/2018 N/A; COLONOSCOPY DIAGNOSTIC COLONOSCOPY N/A 12/31/2020 N/A; COLONOSCOPY SCREEN ENDOSCOPY, COLON, DIAGNOSTIC ENDOSCOPY, UPPER N/A 12/31/2020 N/A; EGD---dialysis pt. STAT BMP!! Hysterectomy 03/1993 TLH with SBO, d/t fibroids, had at [facility] ANGIO AV SHUNT NON DIRECT OTHER SURGERY 2010 2nd AV fistula, at [place] Parathyroidectomy 10/2015 here at [facility] MO PLACEMENT, BILE DUCT STENT bile duct stent SURGICAL HISTORY OF 09/22/2009 dialysis cath placement in chest SURGICAL HISTORY OF 11/12/2009 Left Radial Cephalic AV Fistula TMJ Arthotomy 1988 Transplant Surgery Clinic Appt w/: Date: 12/20/2022 A/P: Nephrology Clinic Appt w/: Date: 12/20/2022 A/P: Other Consults: Cardiology: 12/13/[address] Ann Reason for Visit: Follow-up for history of nonischemic cardiomyopathy Moy Tobin is a 67 year old female with [...] weight loss clinic and transplant nephrology at [facility]. She is hoping to work towards transplant listing. She has been referred to dermatology for alopecia and rheumatology for possible rheumatoid arthritis in the interim. Those appointments have not occurred yet. Patient also reports concerns about being 5 kg heavier than her dry weight and has had worsening shortness of breath. She has anuric and reports recently being recommended by her project scheduler to be admitted for more aggressive volume removal. She is holding off on this for the time being as she reports need to take her daughter to [place] for postoperative assessment. She also reports cramping in extremities associated dialysis, but is interested in trying coenzyme Q10 to help with this. EKG: Last obtained December 06, 2022 demonstrate normal sinus rhythm, left anterior fascicular block, possible old septal infarct, possible lateral infarct. Abnormal ECG. 2D ECHO: Last obtained December 06, 2022 Left Ventricle: Left ventricle is severely dilated. Mildly increased wall thickness. Mildly reduced systolic function with a visually estimated EF of 45 - 50%. Mild global hypokinesis present. Grade I diastolic dysfunction with normal left atrial pressure appropriate for age. Right Ventricle: Right ventricle size is upper limits of normal. Normal systolic function. Left Atrium: Left atrium is severely dilated. Left atrium volume index is 57.7 mL/m2. Mitral Valve: Valve structure is normal. Moderate annular dilation. Moderately restricted motion of the posterior leaflet. Moderate regurgitation. Tricuspid Valve: Trace regurgitation. The pulmonary artery systolic pressure is borderline elevated. Estimated sPAP is 35.0 mmHg. IVC/SVC: IVC diameter is less than or equal to 21 mm and decreases greater than 50% during inspiration; therefore the estimated right atrial pressure is normal (~3 mmHg). Pericardium: Trivial pericardial effusion present. Stress test: Nuclear stress test June 16, 2022 1. Abnormal myocardial perfusion study with a large area of prior infarct with/without attenuation artifacts as outlined above in the apical and lateral wall. No evidence of reversible myocardial ischemia. Clinical correlation is advised. 2. Gated SPECT images reveal mildly reduced LV systolic function. Left Heart Catheterization: Completed July 08, 2022 1. No obstructive coronary artery disease 2. False-positive stress Test 3. Underlying nonischemic cardiomyopathy 4. Elevated LVEDP 5. Right femoral artery access obtained under ultrasound guidance and with use of micro puncture kit and modified Seldinger technique Assessment/Plan: 1. Nonischemic cardiomyopathy 2. Chronic systolic [...] Obesity 10. Polypharmacy 11. Alopecia and arthritis -helping facilitate dermatology and rheumatology referrals. Specifically provide the patient with office number of [facility], and I also placed referral order to rheumatology at [facility] in case very well to see the patient sooner than at [facility]. -the patient I discussed digoxin. Will continue with b.i.d. dosing and plan to obtain updated digoxin level after next office visit if not completed by PCP or nephrology before that time. -regarding worsening dyspnea and weight gain, I encouraged the patient to consider taking nephrology up on hospitalization offer more aggressive volume removal -for today, continue current doses of Lipitor, Eliquis, digoxin as stated above, and midodrine for combined medical management of shins above. Also okay with patient taking coenzyme Q10 -encourage patient update me if there is any further cardiac testing required by transplant listing team so that care can be coordinated Podiatry: 12/12/[address] Rolon - note not signed yet NEUROPATHY PAIN NEW (GENERIC ) cc: Foot Pain HPI: Moy Tobin is a 67 year old female here [...] of her knee. Relates of seeing a ecommerce marketing specialist but denies of having her knee [...] medical or surgical history since last ov. Complains of severe swelling of her legs [...] breath sounds normal and symmetric to ausculation. Lower Extremity Exam: VASCULAR: Dorsalis Pedis L 2/4 Posterior Tibialis L 0/4 Dorsalis Pedis R 2/4 Posterior Tibialis R 0/4 LEISURE TRAVEL AGENT is than 3 sec Dependant Rubor: neg Hair growth: neg Cap refill of toes: immediate Edema: pos Pitting: +4-5 of bilateral LE. Redness: neg Ecchymosis: neg Warmth: neg Dermatological: Rash: neg Callouses: neg ulcer: neg Xerosis: pos Nails: Normal bilateral 1-5. Neurological: Sensation intact to [place] monofilament all dermatomes: Neg sensation on multiple locations. Vibratory sensation: neg sensation Proprioception: pos Temperature sensation: neg cold sensation Sharp/Dull sensation: neg sensation Musculoskeletal: Area of maximum tenderness: pos edema [...] extended and flexed indicating a gastro-soleus equinus. WEIGHTBEARING EXAM: Patient observed standing and during gait. Decreased medial arches with pos hammer toes. Double and single heel lift could not be done due to instability and pain. 04/16/2021 Lumbar spine MRI: Multilevel degenerative joint disc disease noted. This is most significant at L2-L3 and L3-L4. Surgical consultation is recommended if not already obtained. 08/12/2021 Lumbar spine xray: Views of lumbosacral spine show normal vertebral heights. There is interspace height loss at multiple levels. There is endplate degenerative change present at L2 inferiorly in L3 superiorly appearing worse than 11/01/2020. Osteophytes are present on vertebral bodies. Slight anterolisthesis of L5 on S1 is present. There is sclerosis in the posterior elements. Pedicles are intact. There is scoliosis concave to the right. 05/22/2020 left knee xray: No fracture or dislocation is present. There is mild medial compartment joint space narrowing with minimal osteophyte formation. The lateral compartment joint space is normal. No effusion is seen. A few soft tissue calcifications are likely vascular. ASSESSMENT: Encounter Diagnoses Name Primary? Bilateral lower extremity edema Yes Diabetic polyneuropathy associated with type 2 diabetes mellitus ([facility]) PLAN: No orders of the defined types [...] she will need to talk to her project scheduler about pain medication. - Pt was informed that the gabapentin starts to help due to the medication it builds up enough in her system to help with her symptoms when she does not have dialysis for 2 days in a row. Pt was advised to follow-up with her project scheduler about increasing her gabapentin dosage to help [...] of doing the exercises shown to have alf effects. - Pt was informed of the [...] strength. - Pt will FU as needed. Dr. Reveles: 12/08/2022 Attestation signed by Milo Reveles III, MD at 12/08/2022 4:40 PM I have verified the documentation of the medical student including all history, exam, and medical decision-making details. I have personally performed a physical exam and have personally reviewed the data to support my medical decision-making as outlined in the medical student's note, and I arrive independently at the same conclusion. 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 No intervention at this time. -wean gabapentin (obesogenic) as below which may promote WL -f/u in 4 months with Thais Euceda, Obesity Medicine Specialist and my collaborating CHENG, for re-evaluation and weight check #T2DM -on statin -recent hbA1c WNL #ESRD on HD -seeking transplant #RA, not on medications any longer #chronic [...] 7 days, then STOP -refer to PT #neuropathy -on gabapentin 200 bid (obesogenic) still but states that neuropathy has been improved -taper as above #LENORA, on cpap #HFbEF F CHRISTINE REVELES III, MD Date of [...] needed 5. Colon cancer screening followed by pals specialist at [place], [place], noted to have 3 polyps 12/2014 (tubular adenoma, tubulovillous adenoma and hyperplastic) - see pre-txp overview on problem list => repeat colonoscopy due 2017 6. Co-morbidities: htn, dm-2, hld, cad, a fib, chf, ESRD on HD, copd, depression, asthma, arthritis, gout, hypothyroidism, lenora on cpap, hx PE and DVT Pertinent Previous Committee Presentations: PSC note: 06/14/2018 Transplant Eligibility: Diabetic Nephropathy, Hypertensive Nephrosclerosis Committee Review Decision: Remove Relative Contraindications: Sleep apnea with CPAP non-compliance or BMI > 35, Non-compliance with medical treatment plans, multiple medical co-morbidities Committee Discussion Details: Discussed pt's multiple medical [...] as well. Pt removed from txp list. Labs: 12/06/2022 PTH: >5000 (parathyoidectomy with implant) [...] Confirmatory Test Negative ratio Positive ! PROTHROMBIN [id number] PANEL Rpt Prothrombin [id number] Negative Source PT [id number] PCR Whole Blood Latest Reference Range & Units 12/06/22 13:41 Hemoglobin A 97.0 - 98.2 % 97.7 Hemoglobin A2 1.8 - 3.0 % 2.3 Hemoglobin Other Not Detected % 0.0 Interpretation Hemoglobin Pattern Normal Pattern Normal Pattern Parathyroidectomy: 11/10/2015 PROCEDURES: 1. Parathyroidectomy. 2. Autotransplantation of parathyroid tissue into the right forearm. 3. Recurrent laryngeal nerve monitoring CLINICAL HISTORY: Hyperparathyroidism. OPERATIVE PROCEDURE: Parathyroidectomy with monitoring with reimplantation. FINAL DIAGNOSIS: RIGHT SUPERIOR PARATHYROID F/S , EXCISION (A): - HYPERPLASTIC PARATHYROID RIGHT INFERIOR PARATHYROID , EXCISION (B): - HYPERPLASTIC PARATHYROID LEFT SUPERIOR PARATHYROID F/S , EXCISION (C): - HYPERPLASTIC PARATHYROID LEFT INFERIOR PARATHYROID , EXCISION (D): - HYPERPLASTIC PARATHYROID Kidney Biopsy: none EK12/06/2022 Echo: 12/06/2022 Interpretation Summary Left Ventricle: Left ventricle is severely dilated. Mildly increased wall thickness. Mildly reduced systolic function with a visually estimated EF of 45 - 50%. Mild global hypokinesis present. Grade I diastolic dysfunction with normal left atrial pressure appropriate for age. Right Ventricle: Right ventricle size is upper limits of normal. Normal systolic function. Left Atrium: Left atrium is severely dilated. Left atrium volume index is 57.7 mL/m2. Mitral Valve: Valve structure is normal. Moderate annular dilation. Moderately restricted motion of the posterior leaflet. Moderate regurgitation. Tricuspid Valve: Trace regurgitation. The pulmonary artery systolic pressure is borderline elevated. Estimated sPAP is 35.0 mmHg. IVC/SVC: IVC diameter is less than or equal to 21 mm and decreases greater than 50% during inspiration; therefore the estimated right atrial pressure is normal (~3 mmHg). Pericardium: Trivial pericardial effusion present. Prior Study No prior study available for [...] Left Ventricle LV biplane EF 51 % (Range: 54 - 74) LV A2C EF 53 % (Range: 52 - 76) LV A4C EF 50 % (Range: 46 - 78) LVIDd 5.09 cm (Range: 3.8 - 5.2) LV LVIDd index 2.64 cm/m2 (Range: 2.3 - 3.1) LVIDs 3.26 cm (Range: 2.2 - 3.5) LVIDs index 1.69 cm/m2 (Range: 1.3 - 2.1) LV EDV BP 194.144 mL (Range: 46 - 106) LV EDV index BP 100.6 mL/m2 (Range: 29 - 61) LV EDV A2C 218.514 mL (Range: 41 - 133) LV EDV index A2C 113.2 mL/m2 (Range: 26 - 74) LV EDV A4C 165.502 mL LV EDV index A4C 85.74 mL/m2 (Range: 30 - 82) LV EDV 2D 123.037 mL (Range: 46 - 106) LV EDV index 2D 63.74 mL/m2 (Range: 29 - 61) LV ESV BP 95.866 mL (Range: 14 - 42) LV ESV index BP 49.7 mL/m2 (Range: 8 - 24) LV ESV A2C 83.554 mL (Range: 10 - 54) LV ESV index A2C 43.28 mL/m2 (Range: 6 - 30) LV ESV A4C 103.646 mL (Range: 12 - 60) LV ESV index A4C 53.69 mL/m2 (Range: 7 - 35) LV ESV 2D 42.913 mL (Range: 14 - 42) LV ESV index 2D 22.23 mL/m2 (Range: 8 - 24) LVPWd 1.27 cm (Range: 0.6 - 0.9) Fractional Shortening 2D 36 % (Range: 28 - 44) LV RWT 0.501 LV mass 2D 283.3906 g (Range: 66 - 150) LV mass index 2D 146.81 g/m2 (Range: 44 - 88) LV Alcazar A2C 8.817 cm LV Alcazar A4C 8.453 cm IVSd 2D 1.283 cm (Range: 0.6 - 0.9) IVS/LVPW 1.007 Left Atrium LA vol BP 111.432 mL LA vol BP A-L 117.878 mL LA size 5.316 cm (Range: 2.7 - 3.8) LA vol index 57.7 mL/m2 (Range: 16 - 34) LA ESV INDEX (BP) 57.73 ml/m2 LA ESV A2C MOD Index 69 ml/m2 LA ESV A4C MOD Index 48 ml/m2 Aortic Root - End Diastolic Ascending aorta 3.32 cm Right Ventricle/Right Atrium RV-alcazar basal diam 4.1 cm (Range: 2.5 - 4.1) RV-alcazar longitudinal diam 7.6 cm (Range: 5.9 - 8.3) RVIDd 4.3 cm RA [...] area pk maryam 2.3 cm2 AV Doppler maryma index pk maryam 0.711 LVOT stroke vol [...] 484.376 cm/s Stenosis IVSd 2D 1.283 cm (Range: 0.6 - 0.9) MV A pk maryam [...] 91 ms LA vol index 57.7 mL/m2 (Range: 16 - 34) LA vol BP 111.432 mL Septal Defects LVOT stroke vol 72.1 mL Qp:Qs 1.3 LVOT stroke vol index 37.35 mL/m2 RVOT stroke vol 93.42 cm3 Output LVOT pk maryam 0.99 m/s LVOT Cardiac Output 5.875 l/min LVOT mn grad 1.9 mmHg LVOT Cardiac Index 3.04 l/min/m2 RV Function TAPSE 2.465 cm (Range: 1.7) ECHO: 12/16/2021 Exam Details Procedure Ordered: ECHOCARDIOGRAM 2D W/DOPPLER Procedure Components: Complete 2D, M-mode, complete spectral Doppler, color Doppler Procedure Status: Routine study Facility Location: [facility] Indication: HFrEF Procedure Hospital Nurse Liaison: [id number] Mott,RDCS,RVT Ordering Provider: Bahman Ann MD Reading Physician: YURI FREED MD Conclusions Left Ventricle: Left ventricle is normal in size. Mildly reduced systolic left ventricular function. EF 50 %. Left ventricle wall thickness is mildly increased. There is mild global hypokinesis. Doppler parameters are consistent with abnormal left ventricular relaxation (Grade 1 diastolic dysfunction). Left Atrium: The left atrium is moderately dilated. Tricuspid Valve Measurements RVSP: 34 mmHg. Findings Left Ventricle: Left [...] Valve SAIMA D (continuity eq. VTI) 2 cm Aortic Valve SAIMA Index (continuity eq.Vmax) 0.97 cm /m Patient: MOY TOBIN Study Date: 12/16/2021 09:39 AM Page 3 of 4 Aortic Valve AV Opening, 2D 1.3 cm Aortic Valve LVOT Vmax / AV Vmax 0.62 Interventricular septum IVSd, 2D 1.1 cm (0.6cm - 1.1cm) Left Atrium LADs, 2D 4.3 cm (2.7cm - 3.8cm) Left Atrium LA Area s, A4C 22.9 cm (0cm - 20cm ) Left Atrium LA Area s, A2C 23.4 cm (0cm - 20cm ) Left Atrium LAESV, MOD4 84 ml (22ml - 52ml) Left Atrium LAESV, MOD2 78 ml (22ml - 52ml) Left Atrium LAESV index, MOD4 43.1 ml/m Left Atrium LAESV index, MOD2 40 ml/m Left Atrium LAESV index, AL4 49.7 ml/m Left Atrium LAESV index, AL2 45.6 ml/m Left Ventricle LVOT Vmax 1.1 m/s (0.7m/s [...] 49ml) Left Ventricle LVEDV Index, BP 34.9 ml/m (35ml/m - 75ml/m ) Left Ventricle LVESV Index, BP 16.4 ml/m (12ml/m - 30ml/m ) Left Ventricle LVOT PGmean 2 mmHg Left [...] Mitral Valve MVA D (continuity eq.) 3 cm Mitral Valve MV PGmax 3 mmHg Mitral Valve MV PGmean 1 mmHg Mitral Valve MVA PHT 3.1 cm Patient: MOY TOBIN Study Date: 12/16/2021 09:39 AM Page 4 of 4 Mitral Valve MV PHT 70 ms Mitral Valve MV Dec Zavala 3.36 m/s Right Ventricle Diastolic Function TR Pmax 29 [...] Diabetes Procedures: Lexiscan Perfusion Scan, Gated Stress ++++++++++++++++++++++++++++++++++++ SUMMARY: ++++++++++++++++++++++++++++++++++++ FINDINGS: Myocardial perfusion imaging [...] images reveal mildly reduced LV systolic function. [facility]: 07/08/2022 Conclusion 1. No obstructive coronary artery disease 2. False-positive stress Test 3. Underlying nonischemic cardiomyopathy 4. Elevated LVEDP 5. Right femoral artery access obtained under ultrasound guidance and with use of micro puncture kit and modified Seldinger technique Recommendations - 1. Manual pull of femoral [...] (Target range 65-75%) RFA: (Target range 90-100%) Male Total Hemoglobin Range 12.0-17.6 g/dL Female Total Hemoglobin Range 12.0-15.6 g/dL CXR: 12/06/2022 FINDINGS/IMPRESSION: There is no focal consolidation, pleural effusion, or pneumothorax. The cardiac silhouette is normal. The mediastinal silhouette is normal. The visible bony thorax is intact. There is eventration of the right hemidiaphragm. CT abd/pelvis non-contrast: 12/06/2022 COMPARISON: CT abdomen [...] completely empty. No vesicoureteral reflux is evident. IMPRESSION: Small capacity bladder. Limited imaging performed due to spontaneous bladder contraction, emptying the bladder. No postvoid residual or vesicoureteral reflux. PPD: 12/06/2022 quant gold negative Colonoscopy: 12/31/2020 Findings: Hemorrhoids were found on perianal exam. Five small sessile polyps were found in the rectum, sigmoid colon, descending colon and cecum. The polyps were 2 to 3 mm in size. These polyps were removed with a jumbo cold forceps. Resection and retrieval were complete. No mass or large polyps seen. Multiple medium-mouthed diverticula were found in the sigmoid colon, descending colon and transverse colon. There was no evidence of diverticular bleeding. Internal hemorrhoids were found during retroflexion. The hemorrhoids were large. Estimated Blood Loss: Estimated blood loss was minimal. Complications: No immediate complications. Impression: - Hemorrhoids found on perianal exam. - Five 2 to 3 mm polyps in the rectum, in the sigmoid colon, in the descending colon and in the cecum, removed with a cold snare. Resected and retrieved. - Diverticulosis in the sigmoid colon, in the descending colon and in the transverse colon. There was no evidence of diverticular bleeding. - Internal hemorrhoids. Recommendation: - Resume previous diet. - Resume Eliquis (apixaban) at prior dose tomorrow. - Await pathology results. - Repeat colonoscopy in 5 years for surveillance. - Return to referring physician as previously scheduled. - Continue present medications. Pathology: 12/31/2020 Final Diagnosis Large intestine, colon polyps x5, biopsy (A): - Hyperplastic polyps EGD: 12/31/2020 Findings: A 4 cm hiatal hernia was present. A non-obstructing Schatzki ring was found at the gastroesophageal junction. A guidewire was placed and the scope was withdrawn. Dilation was performed with a Savary dilator with mild resistance at 57 Fr. Esophagogastric landmarks were identified: the Z-line was found at 35 cm, the gastroesophageal junction was found at 35 cm and the site of hiatal narrowing was found at 39 cm from the incisors. There is no endoscopic evidence of Bryson's esophagus or esophagitis in the distal esophagus. The entire examined stomach was normal. The examined duodenum was normal. The cardia and gastric fundus were normal on retroflexion. Estimated Blood Loss: Estimated blood loss: none. Complications: No immediate complications. Impression: - 4 cm hiatal hernia. - Non-obstructing Schatzki ring. Dilated. - Esophagogastric landmarks identified. - Normal stomach. - Normal examined duodenum. - No specimens collected. Recommendation: - Resume previous diet. - Continue present medications. - Observe response to dilatation - Return to referring physician as previously scheduled. - Resume [Medication] at prior dose tomorrow. Mammo: 10/03/2021 - needs to get UTD Pap: pt needs UTD well women visit [facility]/Dental: 12/06/2022 FINDINGS: Multiple dental restorations are identified, and numerous teeth are absent. No acute mandibular fracture is identified. Both temporomandibular joints are intact. No periapical abscess is present. There are multiple dental caries. IMPRESSION: No evidence of periapical abscess. SW: 12/20/2022 - note pending HEADING MACHINE OPERATOR forms: still need RD: 12/20/2022 - note pending Items Still Pending: RD/SW consult notes - still pending, dental - cavities, CXR - eventration R hemidiaphragm, CT a/p - lg hiatal hernia/mural thickening distal rectal wall/ostepnecrosis femoral heads, venous doppler - ? Chronic DVT RLE, Moderate mitral regurgitation 11/10/2021 Assessment & Plan (12/23/2023 9:56 PM CDT): Continue to follow w/ cardiology Midodrine Assessment & Plan (11/10/2021 9:45 PM CDT): Defer to cardiology Chronic systolic heart failure 10/20/2020 Overview (11/08/2021): 05/10/2021 Dr. Carrol MORALES 7.15.2020 Jory Freedman, SENIOR STEREO COMPILER TEAM LEAD-GLOBAL SUPPLY CHAIN VICE PRESIDENT Cardiology Assessment & Plan (05/05/2024 10:12 PM CDT): Worsening EF Continue metoprolol Assessment & Plan (12/23/2023 9:56 PM CDT): [...] CXR Chronic hypotension 10/19/2020 Assessment & Plan (05/05/2024 10:11 PM CDT): Controlled, Follow-up with cardiology Assessment & Plan (12/23/2023 9:56 PM CDT): Controlled today, took midodrine, Asymptomatic Assessment & Plan (06/21/2023 12:25 PM CDT): Controlled today, took midodrine, Asymptomatic Assessment & Plan (12/29/2022 9:58 AM MANUFACTURING ENGINEER): Stable - Continue Midodrine 10mg TID Assessment [...] 1:30 PM CDT): On HD MWF at [facility]. Dr. Squires is pt's Air Grinder. 2L out on 06/08 resulted in SVT. Fluid sensitive with dialysis requiring midodrine and close HR monitoring. - continue home fosrenol, Phoslo, Vitamin B complex - RFP, mag daily - Nephrology following - Dialysis MWF - Continue renal home regimen - Electrolyte management per specialist Assessment & Plan (06/21/2020 12:21 PM CDT): On HD MWF at [facility]. Dr. Squires is pt's Air Grinder. 2L out on 06/08 resulted in SVT. Fluid sensitive with dialysis requiring midodrine and close HR monitoring. - Goal UF between 0.5-1.5L today - continue home fosrenol, Phoslo, Vitamin B complex - RFP, mag daily - Nephrology following - MWF HD Assessment & Plan (06/15/2020 7:16 AM CDT): On HD MWF at [facility]. Dr. Squires is pt's Air Grinder. 1.2L UF out from HD on 06/06. 2L out on 06/08 resulted in SVT. - continue home fosrenol, Phoslo, Vitamin B complex - RFP, mag daily - Nephrology following - MWF HD Assessment & Plan (06/14/2020 6:56 AM CDT): On HD MWF at [facility]. Dr. Squires is pt's Air Grinder. 1.2L UF out from HD on 06/06. 2L out on 06/08 resulted in SVT. - continue home fosrenol, Phoslo, Vitamin B complex - RFP, mag daily - Nephrology following - MWF HD Assessment & Plan (06/12/2020 6:31 AM CDT): On HD MWF at [facility]. Dr. Squires is pt's Air Grinder. 1.2L UF out from HD on 06/06. 2L out on 06/08 resulted in SVT. - continue home fosrenol, Phoslo, Vitamin B complex - RFP, mag daily - Nephrology following - MWF HD Assessment & Plan (06/11/2020 9:40 AM CDT): On HD MWF at [facility]. Dr. Squires is pt's Air Grinder. 1.2L UF out from HD on 06/06. 2L out on 06/08 resulted in SVT. - continue home fosrenol, Phoslo, Vitamin B complex - RFP, mag daily - Nephrology following - MWF HD Assessment & Plan (06/10/2020 7:08 AM CDT): On HD MWF at [facility]. Dr. Squires is pt's Air Grinder. 1.2L UF out from HD on 06/06. 2L out on 06/08 resulted in SVT. - continue home fosrenol, Phoslo, Vitamin B complex - Question on Lanthanum dosage, will discuss with patient - BATOOL mag daily - Nephrology following - MWF HD Assessment & Plan (06/09/2020 10:35 AM CDT): On HD MWF at [facility] in [place]. Dr. Squires is pt's Air Grinder. 1.2L UF out from HD on 06/06. 2L out on 06/08 resulted in SVT. - continue home fosrenol, Phoslo, Vitamin B complex - Question on Lanthanum dosage, will discuss with patient - BATOOL mag daily - Nephrology following - MWF HD - Additional gentle UF dialysis today Assessment & Plan (06/08/2020 11:14 AM CDT): On HD MWF at [facility]. Dr. Squires is pt's Air Grinder. 1.2L UF out from HD on 06/06. - continue home fosrenol, Phoslo, Vitamin B complex - Question on Lanthanum dosage, will discuss with patient - mag BATOOL daily - Nephrology following - MWF HD Assessment & Plan (06/07/2020 11:05 AM CDT): On HD MWF at [facility] in [place]. Dr. Squires is pt's Air Grinder. 1.2L UF out from HD yesterday. - continue home fosrenol, Phoslo, Vitamin B complex - RFP, mag daily - Nephrology following Assessment & Plan (02/27/2019 3:09 PM MANUFACTURING ENGINEER): ESRD on HD (MWF). Receiving dialysis on same schedule while admitted as IP. Sees Dr. Moreau as OP - Nephrology consult and following; appreciate recs - HD while admitted as appropriate - Daily RFP/Mg levels - Continue home lanthanum, renal vitamin - Monitor I/Os Assessment & Plan (02/26/2019 7:04 AM MANUFACTURING ENGINEER): ESRD on HD (MWF). Last HD on Monday. Went in for dialysis this morning but due to ongoing CP and hypotension, was told to come to ED. Patient of Dr. Moreau's - Nephrology consult and following; appreciate recs - HD while admitted as appropriate - Daily RFP/Mg levels - Continue home lanthanum, renal vitamin - Monitor I/Os Assessment & Plan (02/25/2019 2:03 PM MANUFACTURING ENGINEER): ESRD on HD (MWF). Last HD on [...] CDT): ESRD on MWF hemodialysis (Dr. Moreau), project scheduler is aware. Phos back in normal range at 4 today. - Continue dialysis. - Continue calcitriol, calcium acetate, cinacalcet, fosrenol, renal vitamin. - RFTs QD. Assessment & Plan (08/28/2018 1:49 PM CDT): ESRD on MWF hemodialysis (Dr. Moreau), project scheduler is aware. Phos back in normal range at 3.2 today. - Continue dialysis. - Continue calcitriol, calcium acetate, cinacalcet, fosrenol, renal vitamin. - RFTs QD. Assessment & Plan (08/27/2018 3:10 PM CDT): ESRD on MWF hemodialysis (Dr. Moreau), project scheduler is aware. K low at 3.4 today. Phos high at 6.2. - Continue dialysis. - Continue calcitriol, calcium acetate, cinacalcet, fosrenol, renal vitamin. - Encourage patient to take phosphate binders despite NPO status due to high phos. - K repletion during dialysis - RFTs QD. Assessment & Plan (08/26/2018 12:11 PM CDT): ESRD on MWF hemodialysis (Dr. Moreau), project scheduler is aware. - Continue dialysis. - Continue calcitriol, calcium acetate, cinacalcet, fosrenol, renal vitamin. - RFTs QD. Assessment & Plan (08/25/2018 3:13 PM CDT): Follows with Dr. Moreau. Has MWF scheduled. - Nephrology consulted, appreciate recommendations - Dialysis per Nephrology - Continue calcitriol, calcium acetate, cinacalcet, fosrenol, renal vitamin Assessment & Plan (08/24/2018 2:04 PM CDT): ESRD on MWF hemodialysis (Dr. Moreau), project scheduler is aware. - Continue dialysis. - Continue calcitriol, calcium acetate, cinacalcet, fosrenol, renal vitamin. - RFTs QD. Assessment & Plan (08/23/2018 11:49 AM CDT): ESRD on MWF hemodialysis (Dr. Moreau), project scheduler is aware. - Continue dialysis. - Continue [...] 05/10/2021 Dr. Carrol MORALES Assessment & Plan (05/05/2024 10:11 PM CDT): rhythm controlled, - Dig per cardiology - Apixaban - Continue to follow with Cardiology Assessment & Plan (11/10/2021 11:30 AM CDT): [...] exacerbation Assessment & Plan (02/27/2019 7:07 AM MANUFACTURING ENGINEER): On home Eliquis 2.5mg PO BID. Sees Dr. Alves. History of prior DVT. - Continue Eliquis and Metoprolol - Cardiac telemetry monitoring Assessment & Plan (02/25/2019 3:47 PM MANUFACTURING ENGINEER): On home Eliquis 2.5mg PO BID. Sees Dr. Alves. History of prior DVT. - Continue Eliquis and Metoprolol - Cardiac telemetry monitoring Assessment & Plan (02/25/2019 2:20 PM MANUFACTURING ENGINEER): On home Eliquis 2.5mg PO BID. Sees [...] NICM (nonischemic cardiomyopathy) 10/18/2013 Overview (11/08/2021): 09/24/2020 OVDr. Alves History of deep vein thrombosis 03/20/2013 Overview (04/30/2013): DVT left leg, superficial right leg--on coumadin. Managed by PCP. Atherosclerotic heart diseas e of [place] coronary artery without angina pectoris 08/09/2012 Overview (03/31/2016): Overview: Mild, non-obstructive CAD LENORA (obstructive sleep apnea) 02/20/2002 Overview (07/12/2018): Overview: Overview: uses CPAP without O2- compliant most nights uses CPAP without O2- compliant most nights Class 1 obesity with serious comorbidity in adul t Assessment & Plan (12/29/2022 9:59 AM MANUFACTURING ENGINEER): - Discussed dietary changes - Encourage exercise - Encourage Noom or WW - Blocker Polishing eval Assessment & Plan (09/16/2022 7:50 PM CDT): - Discussed dietary changes - Encourage exercise Coronary artery disease invo lving [place] coronary artery of [place] heart Overview (04/30/2013): 2004 HLD (hyperlipidemia) Assessment & Plan (09/16/2022 7:52 PM CDT): - continue atorvastatin Assessment & Plan (11/10/2021 9:45 PM CDT): - continue atorvastatin Assessment & Plan (06/06/2020 1:21 AM CDT): On home rosuvastatin 5mg qd. - atorvastatin 20mg qd while in the hospital COPD (chronic obstructive pulmonary disease) Overview (04/30/2013): Geological Specialist Dr Tobin Assessment & Plan (05/05/2024 10:15 PM CDT): Stable Flovent BID Albuterol PRN Assessment & Plan (09/16/2022 7:55 PM CDT): Stable Flovent BID Albuterol PRN Following w/ Dr. Tobin Assessment & Plan (11/02/2020 1:32 AM CDT): COPD on home Qvar and oral tiotropium. Reports breathing well currently, exam benign. Plan: - continue home COPD meds Anemia in chronic kidney disease, on chronic jorge lysis Rheumatoid factor positive Overview (04/30/2013): RA- 08/1994, no meds Spinal stenosis of lumbar re gion with neurogenic claudication Assessment & Plan (12/29/2022 10:03 AM MANUFACTURING ENGINEER): Gabapentin Lidocaine patch See Spine Surgery Resolved [...] 12/29/2022 Assessment & Plan (12/29/2022 10:03 AM MANUFACTURING ENGINEER): S/p abx, doing well Abdominal pain, generalized 12/21/2022 12/29/2022 Dyspnea on exertion 12/21/2022 06/21/19 Assessment & Plan (12/29/2022 10:00 AM MANUFACTURING ENGINEER): Suspect 2/2 chronic hypotension - Midodrine ESRD [...] 11/10/2021 Overview (11/08/2021): 08/17/2021 Dr. Ольга MORALES Positive D dimer 11/01/2020 11/03/2020 Assessment & [...] 12:44 PM CDT): PT, see Dr. Alfredo Flexeril Assessment & Plan (11/10/2020 8:11 PM CDT): [...] was discharged on 06/15 and readmitted to [facility] within 24-48 hours for similar symptoms. Discharged with O2 and noted to have a fever and recurrent desaturations since. Dialysis session on 06/19 she was noted to have chest pain and desaturations requiring admission. Patient was transferred to the ICU due to increasing oxygen demands. Now improving on steroid, transferred from ICU to FMIS team on 06/25. - Patient care deescalated to TCU status, [...] was discharged on 06/15 and readmitted to [facility] within 24-48 hours for similar symptoms. Discharged with O2 and noted to have a fever and recurrent desaturations since. Dialysis session on 06/19 she was noted to have chest pain and desaturations requiring admission. Progressing poorly requiring 15L O2 on CPAP. - Discussed case with ICU attending, will [...] 02/25/2019 Assessment & Plan (02/27/2019 3:10 PM MANUFACTURING ENGINEER): Chest pain occurring for past 5 days, [...] CP Assessment & Plan (02/26/2019 10:59 AM MANUFACTURING ENGINEER): Chest pain occurring for past 5 days, [...] CP Assessment & Plan (02/25/2019 1:58 PM MANUFACTURING ENGINEER): Chest pain occurring for past 5 days, [...] Chest tenderness to palpation - Admit to [facility], Dr. Cifuentes attending physician - Cardiac telemetry [...] Abdominal pain 08/22/2018 09/03/2018 Overview (08/22/2018): Ms. Tobin presented with 3 days of abdominal pain [...] for nausea - Pain control with Tylenol, [employer], and IV morphine PRN, ideally avoiding opioid [...] levothyroxine. Assessment & Plan (02/27/2019 7:07 AM MANUFACTURING ENGINEER): On home levothyroxine 25mcg PO qD before breakfast. TSH 1.64 (WNL) - Continue Synthroid Assessment & Plan (02/26/2019 7:11 AM MANUFACTURING ENGINEER): On home levothyroxine 25mcg PO qD before breakfast. TSH 1.64 (WNL) - Continue Synthroid Assessment & Plan (02/25/2019 2:15 PM MANUFACTURING ENGINEER): On home levothyroxine 25mcg PO qD before [...] of both ears 07/12/2018 08/01/2018 Chronic kidney disease-elevator examiner and adjuster al and bone disorder 06/12/2018 05/11/2020 Typical atrial flutter 04/15/201805/11 Pre-transplant evaluation fo r chronic kidney disease 09/26/2017 05/11/2020 Overview (07/12/2018): Overview: Formatting of this note may be different from the original. Listing date: 12/09/14 Referring Air Grinder: Jc Moreau Dialysis Type and Start Date: Hemodialysis, (M,W,F) 09/23/09 Blood Type: O- BMI: 35.04 Short H/P summary: 61 yo AA/F with ESRD secondary to DM and HTN. Parathyroidectomy 2016. Extensive health hx. See [facility] for further info. Transplant surgery appt: [...] needed 5. Colon cancer screening followed by pals specialist at [place], [place], noted to have 3 polyps 12/2014 (tubular adenoma, tubulovillous adenoma and hyperplastic) - see pre-txp overview on problem list => repeat colonoscopy due 2017 6. Co-morbidities: htn, dm-2, hld, cad, a fib, chf, ESRD on HD, copd, depression, asthma, arthritis, gout, hypothyroidism, lenora on cpap, hx PE and DVT Evaluation Testing Date and Results: Labs: 11/17/16 PTH: 137.9 A1c: 5.0 Glucose: 79 Serologies: Hep B Surf Ab reactive CMV Igg: positive EBV Igg: positive Albumin: 3.8 Tox Screen: negative CPRA: 98% Varicella immune, MMR immune Echo: 11/03/16 (done at [facility]) - Left ventricle: - Systolic function was normal. Ejection fraction was estimated to be 55 %. - There were no regional wall motion abnormalities. - Wall thickness was normal. - Mitral valve: - There was moderate regurgitation - Left atrium: - The atrium was moderately dilated - Tricuspid valve: - There was mild regurgitation. Systolic pressure was within [...] of 49%. Cardiac Cath: 11/09/15 (done at [facility]) FINDINGS: Left ventriculogram: The left ventricular chamber [...] (record in OTTR) Upper EGD: 10/21/16 Impression: - 4 cm hiatal hernia - Non-obstructing Schatzki ring at 35 cm. Dilated. - Congestive gastropathy. - Erythematous mucosa in the gastric body and antrum. Biopsied. - Normal examined duodenum. FINAL DIAGNOSIS: Stomach, biopsy (A): - Mild chronic gastritis with reactive change and focal acute inflammation - Mild proton pump inhibitor effect - Negative for H. Pylori and no intestinal metaplasia Esophagus, biopsy (B): - Squamous mucosa with no histopathologic abnormality Mammo: 01/24/17 (done at [facility]- record in OTTR) Impression: No mammographic evidence of malignanct. Recommend routine screening mammography in one year. BI-RADS Category 2: Benign findings. Pap: complete hysterectomy Dental: neg panorex [facility]12/03/15 The patient was placed on the fluoroscopy table in supine position. AP production line technician images were obtained. A Hoover catheter was [...] It is the impression of this social sciences department chair that Moy Tobin has several positive factors for Kidney transplant candidacy from a psychosocial perspective. Pt has a good understanding of her disease and motivation for kidney transplant. Pt appears to have adequate insurance for post transplant needs. Pt has identified adequate support system and appropriate discharge plan. No concerns regarding substance abuse identified. SW Concerns: 1. Employer status/source of income. 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 Patient reports her daughters are willing to assist financially as needed. Patient in the process of applying for SSDI at present. Plan: behavioral health worker to provide supportive services as needed. No f/u indicated at this time.Patient appears to be a reasonable candidate for transplant from a psychosocial perspective. SW to continue to educate patient on AKF rules and eligibility as she will no longer qualify for premium assistance after transplant Psychiatric Consult Recommended: No Transplant Collision Center Manager: Concepcion Wilkins LMSW RD: 11/09/16 BMI= 35.04, Class I Obesity. Pt remains an ok candidate for Kidney Transplant from a Nutrition Standpoint. Recommendations/Interventions: 1. Pt was given information on Kidney Transplant Diet to be followed after surgery along with RD contact information (2015) 2. Pt instructed to continue to work with Renal RD at HD on diet and to be compliant. 3. Pt instructed to avoid any further weight gain. Pt verbalized an understanding. Chronic constipation 07/13/2017 021 Assessment & Plan (02/27/2019 7:07 AM MANUFACTURING ENGINEER): Taking linaclotide 145mcg PO qD at home - Continue home linaclotide Assessment & Plan (02/25/2019 3:47 PM MANUFACTURING ENGINEER): Taking linaclotide 145mcg PO qD at home - Continue home linaclotide Assessment & Plan (02/25/2019 2:16 PM MANUFACTURING ENGINEER): Taking linaclotide 145mcg PO qD at home - Continue home linaclotide Pre-transplant evaluation fo r kidney transplant 06/14/2017 12/19/2022 Overview (05/29/2018): Listing date: 12/09/14 Referring Air Grinder: Jc Moreau Medical Advisor: Dialysis Type and Start Date: Hemodialysis, (M,W,F) 09/23/09 Blood Type: O- BMI: 35.08 (based on weight pt told to digital forensics examiner) Short H/P summary: 61 yo AA/F with ESRD secondary to DM and HTN. Parathyroidectomy 2016. Extensive health hx. See [employer] for further info. Transplant surgery appt: 09/27/16 [...] needed 5. Colon cancer screening followed by pals specialist at [place], [place], noted to have 3 polyps 12/2014 (tubular adenoma, tubulovillous adenoma and hyperplastic) - see pre-txp overview on problem list => repeat colonoscopy due 2017 6. Co-morbidities: htn, dm-2, hld, cad, a fib, chf, ESRD on HD, copd, depression, asthma, arthritis, gout, hypothyroidism, lenora on cpap, hx PE and DVT Evaluation Testing Date and Results: Labs: 05/18/18 PTH: 147.3 A1c: 5.5 Glucose: 100 Serologies: Hep B Surf Ab reactive CMV Igg: positive EBV Igg: positive Albumin: 3.9 Tox Screen: negative CPRA: 98% Oxalate: 6.4 Strongyloides: neg Toxo: neg Phos: 2.1 Lipids elevated: total 299, LDL 204, Triglycerides 278 Varicella immune, MMR immune Echo: 11/23/17. - History: - DVT, SA. - Left ventricle: - Systolic function was mildly to moderately reduced. Ejection fraction was estimated in the range of 40 % to 45 %. - There were no regional wall motion abnormalities. - Wall thickness was mildly to moderately increased. - Mitral valve: - There was moderate regurgitation. - Pulmonary arteries: - Systolic pressure was at the upper limits of normal. Estimated peak pressure was 35 mmHg. - Tricuspid valve: - There was mild to moderate regurgitation. Nuc Med: 11/23/17 ++++++++++++++++++++++++++++++++++++ SUMMARY: ++++++++++++++++++++++++++++++++++++ Results for Lexiscan Infusion: 1. Normal with no significant ST-T changes noted. 2. No angina noted. 3. Normal BP and HR response. 4. No arrhythmias noted. Results for Nuclear Perfusion Test: Findings: Image [...] within lower limits of normal at 48%. Opinion: 1. Myocardial Perfusion: Normal rest and stress images. Anterior wall breast attenuation is noted, and confounded by motion artifact. 2. Left ventricle: Normal size, wall thickness and lower limits of normal systolic function (post-stress ejection fraction is 48%). Cardiac Cath: 11/09/15 (done at [facility]) FINDINGS: Left ventriculogram: The left ventricular chamber [...] scarring is seen in the lung bases Multiple subcentimeter hypoattenuating lesions in the liver are too small to characterize but statistically, but could. The liver otherwise appears normal. The gallbladder is surgically absent. The intrahepatic and extrahepatic bile ducts are not dilated. The spleen appears normal. The pancreas and adrenal glands are normal. The kidneys are atrophic, consistent with chronic kidney disease. No urinary calculus or hydronephrosis is seen. No free air or free fluid is [...] of the bilateral renal artery origins. No free fluid is seen in the pelvis. The urinary bladder is distended with fluid and appears normal. The uterus is normal. There is no pelvic lymphadenopathy. Bone windows show no lytic or blastic [...] the L5 vertebral body on the right. Surgical michael are seen in the soft tissues of the right lower flank (image 108 series 3). IMPRESSION: 1. Moderate atherosclerotic stenosis of the [...] (record in OTTR) Upper EGD: 10/21/16 Impression: - 4 cm hiatal hernia - Non-obstructing Schatzki ring at 35 cm. Dilated. - Congestive gastropathy. - Erythematous mucosa in the gastric body and antrum. Biopsied. - Normal examined duodenum. FINAL DIAGNOSIS: Stomach, biopsy (A): - Mild chronic gastritis with reactive change and focal acute inflammation - Mild proton pump inhibitor effect - Negative for H. Pylori and no intestinal metaplasia Esophagus, biopsy (B): - Squamous mucosa with no histopathologic abnormality Mammo: 01/24/17 (done at [facility]- record in [facility]) Impression: No mammographic evidence of malignanct. Recommend routine screening mammography in one year. BI-RADS Category 2: Benign findings. Pap: complete hysterectomy [facility] The patient was placed on the fluoroscopy table in supine position. AP production line technician images were obtained. A Hoover catheter was [...] It is the impression of this social sciences department chair that Moy Tobin has several positive factors for Kidney transplant candidacy from a psychosocial perspective. Pt has a good understanding of her disease and motivation for kidney transplant. Pt appears to have adequate insurance for post transplant needs. Pt has identified adequate support system and appropriate discharge plan. No concerns regarding substance abuse identified. Patient states that she started receiving Social Security Disability which has provided steady income. Plan: behavioral health worker to provide supportive services as needed. No f/u indicated at this time. Patient appears to be a reasonable candidate for transplant from a psychosocial perspective. Psychiatric Consult Recommended: No Transplant Collision Center Manager: Concepcion Wilkins LMSW RD: 05/18/18 24 Hour Recall: 1 fish slider from lindsey yost -pt reports this is a typical day for her, question accuracy as pt talked about other foods she consumes regularly during visit including fruits, vegetables, soups, eggs, Premier Protein supplements Additional Information: question accuracy in pts reports - states she cannot lose wt, 24 hour recall indicating pt eating <1000 kcal/d. Pt also states she follows low Na+ diet, foods named in 24 hour recall are typically high in sodium. BMI= 35.8, obese class II per BMI standards. Pt is considered to be OK candidate for transplant from a nutrition standpoint due to high BMI and questionable diet compliance. Recommendations/Interventions: 1.) Provided pt with additional high PRO, low Na+ diet edu appropriate for HD pt's 2.) Instructed to continue to work with renal RD at HD on diet compliance Jaylin Ruiz, RD/LD Palpitations 04/27/2017 08/01/2018 Hemodialysis-associated hypotension 04/27/2017 11/10/2020 Assessment & Plan (06/06/2020 1:13 AM CDT): Continue home midodrine 15mg tid before meals. Assessment & Plan (02/27/2019 3:09 PM MANUFACTURING ENGINEER): History of orthostatic hypotension 2/2 HD. On home midodrine 15mg TID AC - Continue home midodrine - Monitor patient BPs Assessment & Plan (02/25/2019 3:47 PM MANUFACTURING ENGINEER): History of orthostatic hypotension 2/2 HD. On home midodrine 15mg TID AC on dialysis days - Continue home midodrine - Monitor patient BPs Assessment & Plan (02/25/2019 2:23 PM MANUFACTURING ENGINEER): History of orthostatic hypotension 2/2 HD. On home midodrine 15mg TID AC on dialysis days - Continue home midodrine - Monitor patient BPs Calciphylaxis 04/27/2017 05/01/2019 Other disorder of calcium metabolism 04/24/2017 08/01/2018 Rotator cuff tear, right 02/09/2017 PAF (paroxysmal atrial fibrillation) 01/06/2017 11/10/2020 Overview (10/20/2020): 10.19.2020 Cecily Bright, SENIOR STEREO COMPILER TEAM LEAD-GLOBAL SUPPLY CHAIN VICE PRESIDENT Cardiology Excessive anticoagulation 08/15/2016 End stage renal [...] Overview (08/22/2018): Since 1996, sees cardiology at [facility]. Assessment & Plan (02/27/2019 3:08 PM MANUFACTURING ENGINEER): Per chart review last Echo November 2017 - showing mild to moderately reduced LV systolic function with EF 40-45 %, [id number] left ventricular wall thickening, moderate MR, moderate TR. No signs of volume overload on examination. Repeat Echo showing decrease in EF to 30%, LV hypokinesis, G1DD - Cardiology consulted and following; appreciate recs - will discuss Echo results with Cards as well as options for managment - Continue home metoprolol succinate XL 12.5mg PO BID Assessment & Plan (02/26/2019 7:04 AM MANUFACTURING ENGINEER): Per chart review last Echo November 2017 - showing mild to moderately reduced LV systolic function with EF 40-45 %, pqde-ip-qxbywfaw left ventricular wall thickening, moderate MR, moderate TR. No signs of volume overload on examination today - Cardiology consulted and following; repeat Echo - Continue home metoprolol succinate XL 12.5mg PO BID Assessment & Plan (02/25/2019 2:01 PM MANUFACTURING ENGINEER): Per chart review last Echo November 2017 - showing mild to moderately reduced LV systolic function with EF 40-45 %, wdpm-[id number] left ventricular wall thickening, moderate MR, moderate [...] PPI. Assessment & Plan (02/27/2019 7:07 AM MANUFACTURING ENGINEER): On home protonix - Continue Protonix 40mg PO qD Assessment & Plan (02/25/2019 3:47 PM MANUFACTURING ENGINEER): On home protonix - Continue Protonix 40mg PO qD Assessment & Plan (02/25/2019 2:04 PM MANUFACTURING ENGINEER): On home protonix - Continue Protonix 40mg [...] hypercholesterolemia Assessment & Plan (02/27/2019 7:07 AM MANUFACTURING ENGINEER): On home Atorvastatin. Last charted lipid profile 9 months ago showing elevated LDL, triglycerides, low HDL Lipid profile showing low HDL (30), elevated TG (152), LDL 119 and Total cholesterol 179, both within acceptable ranges - continue atorvastatin 20mg qHS Assessment & Plan (02/26/2019 7:10 AM MANUFACTURING ENGINEER): On home Atorvastatin. Last charted lipid profile 9 months ago showing elevated LDL, triglycerides, low HDL Lipid profile showing low HDL (30), elevated TG (152), LDL 119 and Total cholesterol 179, both within acceptable ranges - continue atorvastatin 20mg qHS Assessment & Plan (02/25/2019 2:07 PM MANUFACTURING ENGINEER): On home Atorvastatin. Last charted lipid profile [...] Encounters Date Type Department Care Team Description 05/27/2024 10:00 AM CDT Office Visit [facility] - Neurology [address] [place] [address] Celi Bob PA-C Cerebrovascular accident (CVA), unspecified mechanism (HCC) (Primary Dx); Basilar artery aneurysm; Atrial fibrillation, unspecified type (HCC) 05/27/2024 Travel 05/15/2024 Telephone [facility] - Ophthalmology [address] [facility], [place] [address] Jaylon Marks MD MEDICATION REFILL 05/14/2024 10:27 AM CDT - 05/14/2024 11:59 PM CDT Hospital Encounter [facility] [address] [place] [address] Francesco Hong MD Discharge Disposition: Home or Self Care 05/14/2024 Travel 05/08/2024 Travel 05/06/2024 Telephone [facility] Vascular [facility] [address] [facility] [address] [place] [address] Bahman Ann MD 04/25/2024 3:30 PM MANUFACTURING ENGINEER Office Visit [facility] [address] [place] [phone] Francesco Hong MD Cervical radiculopathy (Primary Dx); Other chronic pain 04/25/2024 Travel 04/23/2024 Travel 04/18/2024 1:00 PM MANUFACTURING ENGINEER Office Visit [facility] Health Heart & Vascular Care [address] [facility] [address] [place] [address] Federico Branham Jr., MD Kichura, Andrew Brian, MD Acute on chronic systolic (congestive) heart failure (Primary Dx); Strain of left trapezius muscle, initial encounter; Presence of Watchman left atrial appendage closure device; Atrial fibrillation, unspecified type; NICM (nonischemic cardiomyopathy); Valvular heart disease; Dyslipidemia; Essential hypertension; Orthostatic hypotension; History of CVA (cerebrovascular accident) 04/12/2024 2:00 PM MANUFACTURING ENGINEER Video Visit [facility] - Family Medicine [address] [place] [phone] Federico Branham Jr., MD Routine general medical examination at health care facility ; Paroxysmal atrial fibrillation; Chronic atrial fibrillation (CMS/HCC); Chronic hypotension; Chronic systolic heart failure; Other chronic pain; Hospital discharge follow-up; Pneumonia due to infectious organism, unspecified laterality, unspecified part of lung; Cord compression; Chronic obstructive pulmonary disease, unspecified COPD type 03/29/[address] [phone] Federico Branham Jr., MD Late Cancel 03/29/[address] [phone] Federico Branham Jr., MD MEDICATION REFILL 03/22/2024 1:30 PM MANUFACTURING ENGINEER - 03/22/2024 2:30 PM MANUFACTURING ENGINEER Surgery [facility] - Cardiac Cyber Crime Investigator [address] [place] [address] Bahman Ann MD CCL CONVERSION WORKER DIAGNOSTIC JAE 03/22/2024 12:59 PM MANUFACTURING ENGINEER Anesthesia Event [facility] - Cardiac Cyber Crime Investigator [address] [place] [address] Ovidio Hazel MD Anokhin, Larissa, SENIOR STEREO COMPILER TEAM LEAD-APARTMENT MAINTENANCE SUPERVISOR 03/22/2024 12:47 PM MANUFACTURING ENGINEER - 03/22/2024 11:59 PM MANUFACTURING ENGINEER Hospital Encounter [facility] [address] [place] [address] Bahman Ann MD Discharge Disposition: Home or Self Care 03/22/2024 11:58 AM MANUFACTURING ENGINEER - 03/22/2024 2:52 PM MANUFACTURING ENGINEER Hospital Encounter [facility] - Cardiac Cyber Crime Investigator [address] [place] [address] Bahman Ann MD Cardiac Catheterization Discharge Disposition: Home or Self Care 03/22/2024 Telephone [facility] - Care Coordination [address] [place], [place] [address] [phone] Romeo Zelaya CPhT Rx Medication Monitoring 03/22/2024 Travel 03/19/2024 Travel 03/19/2024 Patient Outreach [facility] - Care Coordination [address] [place] [phone] Sada Coates, PCT UC Follow-up 03/19/2024 Patient Outreach [facility] - Care Coordination [address] [place] [phone] Carlota Joshi, JAMESON Opened In Error 03/17/2024 12:49 AM MANUFACTURING ENGINEER - 03/17/2024 2:15 AM MANUFACTURING ENGINEER Emergency [facility] EMERGENCY DEPARTMENT [address] [place] [phone] Alvaro Moody MD Influenza (Primary Dx); Acute cough; Shortness of breath Discharge Disposition: Home or Self Care 03/16/2024 Travel 03/12/2024 2:35 PM MANUFACTURING ENGINEER - 03/12/2024 11:59 PM MANUFACTURING ENGINEER Hospital Encounter [facility] DIAGNOSTIC RAD CSM [address] [facility] [place] [address] Ryland Fuentes MD Discharge Disposition: Home or Self Care 03/12/2024 2:15 PM MANUFACTURING ENGINEER Office Visit [facility] - Orthopedics [address] [place] [phone] Ryland Fuentes MD S/P cervical spinal fusion (Primary Dx) 03/11/2024 Orders Only [facility] - Orthopedics [address] [place] [phone] Ryland Fuentes MD S/P cervical spinal fusion 03/05/2024 Transitional Care [facility] CARE COORDINATION [address] [place] [phone] Pura Lo, JAMESON Transitions Of Care 03/04/2024 Travel from Last 3 Months Immunizations Name Administration Dates Next Due BCG FPC, HISTORIC VACCINE 10/16/2019,01/2019,10/11/2017,2016,09/30/2015,10/08/2014,10/07/2013,0 11/10/2012,05/23/2012 COVID MODERNA 12+ yr 50mcg/0.5mL 12/22/2023 COVID PFIZER BIVALENT 12Y+ 30mcg/0.3ML 04/18/2022 Covid Moderna primary monova lent 12+ yr 0.5mL 01/08/2021,04/23/2020,03/23/2020 Covid Pfizer primary monoval ent 12+ yr 0.3mL Purple cap 01/08/2021,04/23/2020,04/02/2020,2020 FLU VACCINE TRI IIV3 SPLIT P F IM (FLUVIRIN) 11/19/2015 INFLUENZA VACCINE 11/23/2022,,11/08/2019,2018,11/15/2017,11/09/2016,11/19/2015,0 11/19/2014,10/30/2013,11/10/2012, 012 INFLUENZA VACCINE, ADJUVANTE D, TRIV. (FLUAD TRIVALENT; 65Y+) (AIIV3) 12/03/2021,12/04/2020,11/08/2019,2018,11/15/2017,11/09/2016,11/19/2015,0 11/19/2014,10/30/2013,11/10/2012, 012 INFLUENZA VACCINE, HIGH-DOSE , QUADR. (FLUZONE HIGH-DOSE QUADRIVALENT; 65Y+), 0.7 ML (HD-IIV4) 11/22/2023 PNEUMOCOCCAL PCV VACCINE 09/16/2019,11/26/2014 PNEUMOCOCCAL PPSV23 05/10/2021,09/28/2009 Pneumococcal Pcv13 Conj 07/15/2019 TDAP (7yrs+) 11/13/2023,09/28/2022,12/11/2018 Zoster Hzv Vacc Recombinant Inj Im 01/07/2020, [...] Date Recorded Patient Health Questionnaire-2 Score 0 04/12/2024 [facility] of Occupat ional Health - Occupational Stress [...] place to sleep or slept in a prison (including now)? Patient declined 10/05/2023 Housing Stability [...] time in the past 12 [address] [facility], were you homeless or living in a prison (including now)? No 02/10/2024 Education Answer Date Recorded What is the highest level of school you have completed or the highest degree you have received? Doctorate 09/25/2023 Sex and Gender Information Value Date Recorded Sex Assigned at Female 02/14/2020 1:06 PM MANUFACTURING ENGINEER Gender Identity Female 02/14/2020 1:05 PM MANUFACTURING ENGINEER Sexual Orientation Straight 02/14/2020 1 :05 PM MANUFACTURING ENGINEER Last Filed Vital Signs Vital Sign Reading Time Taken Comments Blood Pressure 124/87 05/27/2024 10:04 AM CDT Pulse 81 05/27/2024 10:04 AM CDT Temperature 36.2 C (97.2 F) 03/22/2024 1:43 PM MANUFACTURING ENGINEER Respiratory Rate 16 05/27/2024 10:04 AM CDT Oxygen Saturation 97% 04/18/2024 1:18 PM MANUFACTURING ENGINEER Inhaled Oxygen Concentration 28% 02/10/2024 5 :51 AM MANUFACTURING ENGINEER Weight 70.1 kg (154 lb 8.7 oz) 04/25/2024 3:43 P M MANUFACTURING ENGINEER dialysis Height 158.8 cm (5' 2.5 ) 03/22/2024 12:55 PM CS T Body Mass Index 27.82 03/22/2024 12:55 PM MANUFACTURING ENGINEER Plan of Treatment Upcoming Encounters Date Type Department Care Team (Late st Contact Info) Description 06/06/2024 8:45 AM CDT Office Visit [facility] - Ophthalmology [address] [place] [address], [place] [phone] Jaylon Marks MD [address] [place] [address] DE[place] [phone] 07/16/2024 2:15 PM CDT Office Visit [facility] - Orthopedics [address] [place] [phone] Ryland Fuentes MD [address] [place] [address] 07/30/2024 10:20 AM CDT Office Visit [facility] - Family Medicine [phone] [place] [address] [address] [place] [address] [place] [address] [place] [phone] 08/06/2024 10:20 AM CDT Office Visit [facility] - Podiatry [phone] [place] [address] [address] [place] [address] Devika Rolon DPM [address] [facility] [address] [place] [address] 08/16/2024 1:15 PM CDT Office Visit [facility] Heart [facility] Vascular Care [address] [facility] [address] [place] [address] Federico Branham Jr., MD [address] [place] [address] Bahman Ann MD [facility] [address] [place] [address] 11/26/2024 9:30 AM CDT Office Visit [facility] - Neurology [address] [facility], [place] [phone] Familia Duncan MD [address] [place] [phone] 01/10/2025 10:00 AM MANUFACTURING ENGINEER Office Visit [facility] - GI [facility] [facility], [place] [phone] Thais Euceda PA-C [address] [facility] [place] [address] Health Maintenance Due Date Last [...] 11/20 (Done Outside Per Report) MEDICARE AWV 12 MONTHS 04/12/2025 04/12/2024, 12/29/2022, 11/10/2021, Additional history exists SCREENING FOR DIABETES 03/16/2027 , 03/15/2024, 02/10/2024, Additional history exists COLON MONITORING 12/31/2030 12/31/2020, , 09/26/2017 COLONOSCOPY - COLON CA SCREENING 12/31/2030 12/31/2020, 10/09/2018, 09/26/2017 Colorectal Cancer Screening 12/31/2030 DTAP/TDAP/TD VACCINES (4 - Td or Tdap) 11/12/2033 11/13/2023, 09/28/2022, 12/11/2018 BONE DENSITY TESTING Completed 01/26/2016 ZOSTER VACCINE Completed 01/07/2020, 12/11/2018 PNEUMOCOCCAL VACCINE 50+ Completed 022, 09/16/2019, 07/15/2019, Additional history exists HEPATITIS C SCREENING Completed 10/18/2023 , 12/06/2022, 03/10/2020, Additional history exists INFLUENZA VACCINE Completed 11/22/2023, , 11/21/2022, Additional history exists COVID-19 VACCINE Completed 12/22/2023, , 01/08/2021, Additional history exists DEPRESSION SCREENING Completed 04/12/2024, 03/12/2024, 03/14/2023, Additional history exists HIB VACCINE Aged Out No longer eligi ble based on patient's age to complete this topic HPV VACCINE Aged Out No longer eligi ble based on patient's age to complete this topic MENINGOCOCCAL (Group B) VACCINE SHARED DECISION-MAKING Aged Out No longer eligible based on patient's age to complete this topic MENINGOCOCCAL GROUPS A/C/Y/W VACCINE Aged Out No longer eligible based on patient's age to complete this topic Goals Goal Patient Goal Type Associated Problems Recent Progress Patient-Stated? Author Medication Management General On track( 024 9:50 AM MANUFACTURING ENGINEER) Andra Fonseca, JAMESON Note: Expected end date: ongoing Interventions: Take all medications as prescribed Let your doctor know right away about any changes in your medications Make sure to request a refill of your medication at least one week prior to your last dose Medical Devices Implanted Type Area Assistant Media Planner Device Identifier Shelf Expiration Date Model / Serial / Lot Lens Iol 0 D +18.5 Tulio Mod L Bcnvx - [id number] Implanted:Qty : 1 on 11/05/2020 by Dylan Gil MD at [facility] Right: [employer] 12/03/2024 SN60WF.185 / [id number] / Lens Iol 0 D +18.5 Tulio Mod L Bcnvx - [id number] Implanted:Qty : 1 on 11/19/2020 by Dylan Gil MD at [facility] Left: [employer] 03/22/2022 SN60WF.185 / [id number] / Eit Cif Cage, H 7 Mm, 8 Degree, S Implanted:Qty : 1 on 04/10/2023 by Ryland Fuentes MD at [facility] N/A: Spine Cervical [id number] / / [id number] Eit Cif Cage, H 7mm, 8 Degree, S Implanted:Qty : 1 on 04/10/2023 by Ryland Fuentes MD at [facility] N/A: Spine Cervical [id number] / / [id number] Graft Bone Ac Cnxs Dbm 2.5ml Ptty Rtu - [id number] Implanted:Qty : 1 on 04/10/2023 by Ryland Fuentes MD at [facility] N/A: Spine Cervical [employer] 11/18/2023 [id number] / [id number] / Eit Cif Cage, H 6mm, 8 Degree, S Implanted:Qty : 1 on 04/10/2023 by Ryland Fuentes MD at [facility] N/A: Spine Cervical [id number] / / [id number] Description:SENIOR TALENT ACQUISITION SPECIALIST- EI T Plate Three Lev 54mm Implanted:Qty : 1 on 04/10/2023 by Ryland Fuentes MD at [facility] N/A: Spine Cervical Depuy Spine [id number] / / Screw 4mm 14mm Spne Crv Ant Laura Slf-Tap Implanted:Qty : 4 on 04/10/2023 by Ryland Fuentes MD at [facility] N/A: Spine Cervical Depuy Spine [id number] / / Scrw Variable Selftap 4.0mm X 16.0mm Implanted:Qty : 3 on 04/10/2023 by Ryland Fuentes MD at [facility] N/A: Spine Cervical Depuy Spine [id number] / / Screw 4.5mm 16mm Ovsz Spne Crv Ant Laura Implanted:Qty : 1 on 04/10/2023 by Ryland Fuentes MD at [facility] N/A: Spine Cervical Depuy Spine [id number] / / Graft Bone Infs Bvn Clgn Rhbmp-2 Sm 2.8 Implanted:Qty : 1 on 10/05/2023 by Ryland Fuentes MD at [facility] [employer] 10/21/2024 [id number] / / [id number] Graft Bone Pliafx Prm Bone Fbr 10cc Implanted:Qty : 1 on 10/05/2023 by Ryland Fuentes MD at [facility] N/A: Spine Cervical [employer] [id number] / / Screw 3.5 X 14 Implanted:Qty : 2 on 10/05/2023 by Ryland Fuentes MD at [facility] N/A: Spine Cervical [id number] / [id number] / Screw 3.5 X 12 Implanted:Qty : 6 on 10/05/2023 by Ryland Fuentes MD at [facility] N/A: Spine Cervical [id number] / [id number] / Screw 3.5 X 20 Implanted:Qty : 2 on 10/05/2023 by Ryland Fuentes MD at [facility] N/A: Spine Cervical [id number] / [id number] / Caps Implanted:Qty : 10 on 10/05/2023 by Ryland Fuentes MD at [facility] N/A: Spine Cervical [id number] / [id number] / Rods 70mm Implanted:Qty : 2 on 10/05/2023 by Ryland Fuentes MD at [facility] N/A: Spine Cervical [id number] / [id number] / Dev Clsr 31mm Watchman Flx Pro Lt Atr - [id number] Implanted:Qty : 1 on 02/08/2024 by Lamberto Potts MD at [facility] [employer] [id number] 10/01/2026 [id number] / [id number] / [id number] Explanted Type Area Assistant Media Planner Device Identifier Shelf Expiration Date Model / Serial / Lot Scrw Variable Selftap 4.0mm X 16.0mm Explanted:Qty: 1 on 04/10/2023 by Ryland Fuentes MD at [facility] N/A: Spine Cervical Depuy Spine [id number] / / Procedures Procedure Name Priority Date/Time Associated Diagnosis Comments PAIN MANAGEMENT PROCEDURE TIME Routine 05/14/2024 11:17 AM CDT Muscle pain ECHO JAE COMPLETE W 3D Routine 03/22/2024 1:48 PM MANUFACTURING ENGINEER Paroxysmal atrial fibrillation CCL CONVERSION WORKER DIAGNOSTIC JAE Routine 03/22/2024 1:25 PM MANUFACTURING ENGINEER CARDIAC EKG ORDER 03/19/2024 11: 00 AM MANUFACTURING ENGINEER XR CHEST 2VW STAT 03/16/2024 4:57 PM MANUFACTURING ENGINEER Acute cough TROPONIN-I HIGH SENSITIVE REFLEX 1HOUR Timed 03/16/2024 4:52 PM MANUFACTURING ENGINEER B-TYPE NATRIURETIC PEPTIDE STAT 03/16/2024 3:32 PM MANUFACTURING ENGINEER TROPONIN-I HIGH SENSITIVE BASELINE + 1HR STAT 03/16/2024 3:32 PM MANUFACTURING ENGINEER PHOSPHORUS BLOOD STAT 03/16/2024 3:32 PM MANUFACTURING ENGINEER COMPREHENSIVE METABOLIC PANEL STAT 03/16/2024 3:32 PM MANUFACTURING ENGINEER CBC W AUTO DIFFERENTIAL STAT 03/16/2024 3:32 PM MANUFACTURING ENGINEER SARS-COV-2 (COVID-19) FLU A/B RSV PCR RAPID STAT 03/16/2024 3:10 PM MANUFACTURING ENGINEER EKG 12-LEAD STAT 03/16/2024 2:48 PM MANUFACTURING ENGINEER Shortness of breath CBC W AUTO DIFFERENTIAL Routine 03/15/2024 8:45 AM MANUFACTURING ENGINEER Presence of Watchman left atrial appendage closure device Atrial fibrillation, unspecified type BASIC METABOLIC PANEL (CALCIUM TOTAL) Routine 03/15/2024 8:45 AM MANUFACTURING ENGINEER Presence of Watchman left atrial appendage closure device Atrial fibrillation, unspecified type XR CERVICAL SPINE 2 OR 3VW Routine 03/12/2024 2:45 PM MANUFACTURING ENGINEER S/P cervical spinal fusion HEPATITIS C AB SCREEN RFLX NAAT QUANT STAT 10/18/2023 4:48 PM CDT MAMMO BILAT SCREENING Routine 10/13/2021 Screening mammogram for breast cancer DEXA BONE DENSITY AXIAL SKELETON Routine 01/26/2016 9:02 AM MANUFACTURING ENGINEER from Last 3 Months or Most Recently Relevant to Health Maintenance Results * Pain Management Procedure Time (05/14/2024 11:17 AM CDT) Anatomical Region Laterality Modality Radio Fluoroscop y Narrative 05/14/2024 11:59 PM CDT Francesco Hong MD 05/15/2024 8:11 AM 05/15/2024 Trigger Point Injections of Bilateral trapezius, lumbar paraspinous, rhomboid, and levator scapulae Procedure: A 27 Gauge 1.5 inch needle was used to perform the trigger point injections. The areas injected were first identified by direct palpation to the muscles that were most painful to the patient. An alcohol pad was used to cleanse the skin before each injection. The needle was carefully placed into each muscle Bilateral trapezius, lumbar paraspinous, rhomboid, and levator scapulaeand a negative aspiration test was performed. Each muscle was then injected with a combination solution consisting of 10 cc of 0.25 % bupivacaine, 4.5 cc of 1 % Lidocaine and 10 mg (10 mg/ml) of Decadron. The muscle (s) described above were injected. A total of 10ml of the injectable solution was used. The needle was removed intact. The patient tolerated the procedure well and there were no complications. Francesco Hong MD DIAGNOSTIC IMAGING O RDERABLES * ECHO JAE COMPLETE W 3D (03/22/2024 1:48 PM MANUFACTURING ENGINEER) MV pk maryam regurg 419.135 cm/s [facility] FUJI PACS MR VTI 172.886 cm [facility] CV FUJ I PACS Anatomical Region Laterality Modality Ultrasound 03/22/2024 12:5 6 PM MANUFACTURING ENGINEER Narrative 03/22/2024 5:03 PM MANUFACTURING ENGINEER Summary * Watchman device is well positioned [...] with abdominal pressure is negative for a zujhd-bb-tyuc shunt. * There is moderate mitral valve regurgitation. * The ascending aorta is mildly dilated at 3.8 cm. * Atherosclerotic plaque in the thoracic aortic arch and descending aorta. Patient Info Name: Moy Tobin Age: 68 years : 1955 Gender: Female Ht: 62 in Wt: 162 lb BSA: 1.82 m2 BP: 135 / 83 mmHg Exam Date: 03/22/2024 12:56 PM Patient Status: MDB Study Site: [facility] Primary Location: [facility] EStudy Info Technical Quality: Good Exam Type: ECHO JAE COMPLETE W 3D Indications I48.0 - Paroxysmal atrial fibrillation (HCC) Contrast/Agitated Saline Contrast / Saline: Agitated Saline Amount: --- ml Reaction to Contrast: no * A 2D, 3D, color Doppler and spectral Doppler transesophageal echocardiogram was performed with a Bubble Study. * 3D postprocessing with interpretation, not performed at an independent workstation. JAE alone did not provide sufficient details of left atrial appendage occlusive device, and 3D imaging was indicated. 3D rendering showed complete occlusion with watchman device. Staff Referring Physician: Bahman Ann Ordering Provider: Bahman Ann Attending Physician: Bahman Ann Master Electrician: Falguni Belle Nurse: Pura Cox Performing Physician: Bahman Ann Medications * Sedation administered and monitored by anesthesia staff. Procedure Details The patient arrived in a fasting state after obtaining informed consent. The transesophageal probe was passed without difficulty into the posterior pharynx, mid-esophagus, distal esophagus, and gastric fundus. Imaging was performed at multiple levels. The patient tolerated the procedure well and there were no complications. The patient was [...] of 45-50% by visual estimate. Right Ventricle The right ventricle is normal in size. Right ventricular systolic function is normal. Left Atrium The left atrium is dilated. Right Atrium The right atrium is normal in size. Atrial Septum Intact interatrial septum visualized by color Doppler, 2D and color Doppler and agitated saline imaging. Agitated saline contrast study at rest and with abdominal pressure is negative for a kjqyn-az-dyqb shunt. Atrial Appendage Watchman device is well positioned within the left atrial appendage with no dominic-device leak. No external thrombus present. Aortic Valve The aortic valve is trileaflet. There is no aortic valve stenosis. There is no aortic valve regurgitation. Pulmonic Valve The pulmonic valve is normal. There is no pulmonic valve stenosis. There is no significant pulmonic regurgitation. Mitral Valve The mitral valve is normal. There is no mitral valve stenosis. There is moderate mitral valve regurgitation. Tricuspid Valve The tricuspid valve is normal. There is no tricuspid valve stenosis. There is mild tricuspid valve regurgitation. Pericardium/Pleural There [...] and with abdominal pressureis negative for a aapjf-dw-ercn shunt. * There is moderate mitral valve [...] 12:56 PM Patient Status: GLORIA Study Site: [facility] Primary Location: [facility] EStudy Info Technical Quality: Good Exam [...] Provider: Bahman Ann Attending Physician: Bahman Ann Master Electrician: Falguni Belle Nurse: Pura Cox Performing Physician: [...] andwith abdominal pressure is negative for a dtcns-qu-gjej shunt. Atrial Appendage Watchman device is well [...] Bahman Ann MD ECHO CUPID * CCL CONVERSION WORKER DIAGNOSTIC JAE (03/22/2024 1:25 PM MANUFACTURING ENGINEER) Anatomical Region Laterality Modality X-Ray Angiograph y Narrative 03/22/2024 1:37 PM MANUFACTURING ENGINEER This case was auto-finalized by a system utility. The result for this JAE exam is stored on the other JAE procedure. Please see the other line in chart review for the result. Bahman Ann MD CV CARDIAC CATH CUPID PROCS * CARDIAC EKG ORDER (03/19/2024 11:00 AM MANUFACTURING ENGINEER) Narrative 03/19/2024 11:00 AM MANUFACTURING ENGINEER Ordered by an unspecified provider. Scanned Document CARDIAC SERVICES ORD ERABLES * XR CHEST 2VW (03/16/2024 4:57 PM MANUFACTURING ENGINEER) Anatomical Region Laterality Modality Chest Digital Radiogra phy 03/16/2024 5:02 PM MANUFACTURING ENGINEER Impressions 03/16/2024 11:43 PM MANUFACTURING ENGINEER IMPRESSION: There is a right IJ approach [...] hernia. > Dictated by Ariel Crain DO (Medical Education Specialist), 03/16/2024 5:05 PM. IIris MD have personally reviewed and interpreted this examination/study. > Interpreting Provider: Iris Carbajal MD on 03/16/2024 11:43 PM Narrative 03/16/2024 11:43 PM MANUFACTURING ENGINEER PROCEDURE: XR CHEST 2VW, DATE/TIME OF EXAM: 03/16/2024 4:58 PM, LOCATION [facility] INDICATION: R05.1: Acute cough ADDITIONAL CLINICAL INFORMATION: Ordering Provider Reason For Exam: r/o pneumonia COMPARISON: Chest x-ray 10/09/2023 Procedure Note Iris Carbajal MD - 03/16/2024 PROCEDURE: XR CHEST 2VW, DATE/TIME OF EXAM: 03/16/2024 4:58 PM, LOCATION [facility] INDICATION: R05.1: Acute cough ADDITIONAL CLINICAL [...] hernia. > Dictated by Ariel Crain DO (Medical Education Specialist), 03/16/2024 5:05PM. I, Iris Carbajal MD have personally reviewed and interpreted this examination/study. > Interpreting Provider: Iris Carbajal MD on 03/16/2024 11:43 PM Debbi Peralta APRN-GLOBAL SUPPLY CHAIN VICE PRESIDENT DIAGNOSTIC I MAGING ORDERABLES * (ABNORMAL) TROPONIN-I HIGH SENSITIVE REFLEX 1HOUR (03/16/2024 4:52 PM MANUFACTURING ENGINEER) Troponin I High Sensitive 179(H) <=14 ng/L 03/16/2024 6:19 PM MANUFACTURING ENGINEER [facility] [place] Troponin I HS <0 <6 ng/L 03/16/2024 6:19 PM MANUFACTURING ENGINEER [facility] Blood BLOOD SPECIMEN / Unknown Venipuncture / Unknown 03/16/2024 4:52 PM MANUFACTURING ENGINEER 03/16/2024 5:40 PM MANUFACTURING ENGINEER Debbi Peralta APRN-GLOBAL SUPPLY CHAIN VICE PRESIDENT LAB - CHEMIS TRY ORDERABLES [address] [address], [employer] [phone] * (ABNORMAL) TROPONIN-I HIGH SENSITIVE BASELINE + 1HR (03/16/2024 3:32 PM MANUFACTURING ENGINEER) Troponin I High Sensitive 305(HH) <=14 ng/L 03/16/2024 4:29 PM MANUFACTURING ENGINEER [facility] Blood BLOOD SPECIMEN / Unknown Venipuncture / Unknown 03/16/2024 3:32 PM MANUFACTURING ENGINEER 03/16/2024 3:42 PM MANUFACTURING ENGINEER Debbi Peralta SENIOR STEREO COMPILER TEAM LEAD-GLOBAL SUPPLY CHAIN VICE PRESIDENT LAB - CHEMIS TRY ORDERABLES [address] [address], [place] [phone] * (ABNORMAL) CBC W AUTO DIFFERENTIAL (03/16/2024 3:32 PM MANUFACTURING ENGINEER) Only the most recent of2 resultswithin the time period is included. WBC 6.9 4.0 - 10.7 x10E9/L 03/16/2024 3:49 PM [facility] RBC Count 3.07(L) 3.90 - 5.20 x10E12/L 03/16/2024 3:49 PM [facility] Hemoglobin 8.5(L) 11.9 - 15.8 g/dL 03/16/2024 3:49 PM [facility] Hematocrit 27.3(L) 34.8 - 46.1 % 03/16/2024 3:49 PM [facility] MCV 88.9 80.0 - 98.0 fL 03/16/2024 3:49 PM [facility] MCH 27.7 26.7 - 33.6 pg 03/16/2024 3:49 PM [facility] MCHC 31.1(L) 31.7 - 36.3 g/dL 03/16/2024 3:49 PM [facility] RDW-CV 16.3(H) 11.3 - 14.8 % 03/16/2024 3:49 PM [facility] Platelet Count 260 150 - 420 x10E9/L 03/16/2024 3:49 PM [facility] MPV 9.7 7.8 - 11.4 fL 03/16/2024 3:49 PM [facility] Neutrophil % 63.4 41.0 - 74.0 % 03/16/2024 3:49 PM [facility] Lymphocyte % 15.8(L) 17.0 - 47.0 % 03/16/2024 3:49 PM [facility] Monocyte % 12.5(H) 3.0 - 11.0 % 03/16/2024 3:49 PM [facility] Eosinophil % 6.7 0.0 - 7.0 % 03/16/2024 3:49 PM [facility] Basophil % 0.4 0.0 - 1.6 % 03/16/2024 3:49 PM [facility] Immature Granulocytes % 1.2(H) 0.0 - 1.0 % 03/16/2024 3:49 PM [facility] Neutrophil Absolute 4.37 1.60 - 7.50 x10E9/L 03/16/2024 3:49 PM [facility] Lymphocyte Absolute 1.09 1.00 - 4.40 x10E9/L 03/16/2024 3:49 PM [facility] Monocyte Absolute 0.86 0.15 - 1.00 x10E9/L 03/16/2024 3:49 PM [facility] Eosinophil Absolute 0.46 0.00 - 0.60 x10E9/L 03/16/2024 3:49 PM [facility] Basophil Absolute 0.03 0.00 - 0.13 x10E9/L 03/16/2024 3:49 PM [facility] NRBC 0.3(H) <=0.0 /100 WBC 03/16/2024 3:49 PM [facility] Blood BLOOD SPECIMEN / Unknown Venipuncture / Unknown 03/16/2024 3:32 PM MANUFACTURING ENGINEER 03/16/2024 3:42 PM [facility] Debbi Peralta SENIOR STEREO COMPILER TEAM LEAD-GLOBAL SUPPLY CHAIN VICE PRESIDENT LAB - HEMATO LOGY ORDERABLES [facility] [address] [place] [phone], [facility] [phone] * (ABNORMAL) B-TYPE NATRIURETIC PEPTIDE (03/16/2024 3:32 PM MANUFACTURING ENGINEER) BNP 620(H) <100 pg/mL 03/16/2024 4:13 PM [facility] Comment: A decision threshold of 100 pg/mL has been demonstrated to provide the maximal combination of sensitivity, specificity and predictive value for the diagnosis of congestive heart failure (CHF). Virtually all patients with no evidence of CHF have BNP values less than 100 pg/mL. A BNP value greater than 100 pg/mL is consistent with the diagnosis of CHF in the appropriate clinical setting. In a study of 693 patients (male and female) with diagnosed CHF, the following values were determined based on the NYHA functional classification system: NYHA Functional Class Mean Valule (pg/mL) % >100 pg/mL I 320 58.1 II 432 73.0 III 656 79.0 IV 1635 98.3 Blood BLOOD SPECIMEN / Unknown Venipuncture / Unknown 03/16/2024 3:32 PM MANUFACTURING ENGINEER 03/16/2024 3:41 PM MANUFACTURING ENGINEER Debbi Peralta SENIOR STEREO COMPILER TEAM LEAD-GLOBAL SUPPLY CHAIN VICE PRESIDENT LAB - CHEMIS TRY ORDERABLES [facility] [address] [place] [phone], [facility] [phone] * (ABNORMAL) COMPREHENSIVE METABOLIC PANEL (03/16/2024 3:32 PM MANUFACTURING ENGINEER) BUN 32(H) 7 - 26 mg/dL 03/16/2024 4:29 PM [facility] Creatinine 7.76(H) 0.56 - 0.96 mg/dL 03/16/2024 4:29 PM [facility] Sodium 141 136 - 145 mmol/L 03/16/2024 4:29 PM [facility] Potassium 4.6(H) 3.5 - 4.5 mmol/L 03/16/2024 4:29 PM [facility] Comment:Hemolysis detected i n this specimen. Hemolysis may cause false elevations in potassium leading to pseudohyperkalemia or masked hypokalemia. Recommend repeat testing if clinically indicated. Chloride 102 98 - 107 mmol/L 03/16/2024 4:29 PM [facility] CO2 24 22 - 29 mmol/L 03/16/2024 4:29 PM [facility] Glucose 80 70 - 99 mg/dL 03/16/2024 4:29 PM [facility] Calcium 10.0 8.4 - 10.2 mg/dL 03/16/2024 4:29 PM [facility] Protein Total 7.8 6.0 - 8.3 g/dL 03/16/2024 4:29 PM [facility] Comment:Hemolysis detected i n this specimen. Hemolysis is known to cause elevations in this analyte. Caution should be exercised in the interpretation of this result. Recommend repeat testing if clinically indicated. Albumin 3.3(L) 3.4 - 5.0 g/dL 03/16/2024 4:29 PM [facility] Bilirubin Total 0.6 0.2 - 1.2 mg/dL 03/16/2024 4:29 PM [facility] Alkaline Phosphatase 142 40 - 150 U/L 03/16/2024 4:29 PM [facility] ALT 7 5 - 55 U/L 03/16/2024 4:29 PM [facility] AST 42(H) 5 - 34 U/L 03/16/2024 4:29 PM [facility] Comment:Hemolysis detected i n this specimen. Hemolysis is known to cause elevations in this analyte. Caution should be exercised in the interpretation of this result. Recommend repeat testing if clinically indicated. Anion Gap 15 6 - 16 03/16/2024 4:29 PM [facility] BUN/Creatinine Ratio 4(L) 7 - 23 02/21 4:29 PM [facility] Osmolality Calculated 298(H) 275 - 295 mOsm/kg 03/16/2024 4:29 PM [facility] Albumin/Globulin Ratio 0.7(L) 1.1 - 2.3 03/16/2024 4:29 PM [facility] eGFR by CKD-EPI 5(L) >=90 mL/min/1 .73 m2 03/16/2024 4:29 PM [facility] Blood BLOOD SPECIMEN / Unknown Venipuncture / Unknown 03/16/2024 3:32 PM MANUFACTURING ENGINEER 03/16/2024 3:42 PM MANUFACTURING ENGINEER Debbi Peralta SENIOR STEREO COMPILER TEAM LEAD-GLOBAL SUPPLY CHAIN VICE PRESIDENT LAB - CHEMIS TRY ORDERABLES Performing Organization Address City/State/[facility] Co de Phone Number [facility] [address] [place] [phone], [facility] [phone] * PHOSPHORUS BLOOD (03/16/2024 3:32 PM MANUFACTURING ENGINEER) Phosphorus 4.8 2.9 - 5.1 mg/dL 03/16/2024 4:27 PM [facility] Blood BLOOD SPECIMEN / Unknown Venipuncture / Unknown 03/16/2024 3:32 PM MANUFACTURING ENGINEER 03/16/2024 3:42 PM MANUFACTURING ENGINEER Debbi Baerchacha SENIOR STEREO COMPILER TEAM LEAD-GLOBAL SUPPLY CHAIN VICE PRESIDENT LAB - CHEMIS TRY ORDERABLES [facility] [address] [place] [address], [facility] [phone] * (ABNORMAL) SARS-COV-2 (COVID-19) FLU A/B RSV PCR RAPID (03/16/2024 3:10 PM MANUFACTURING ENGINEER) [facility] COVID-19 PCR Not detected Not detected 03/16/19 3:58 PM MANUFACTURING ENGINEER [facility] Influenza A PCR Detected(A) Not detected 03/16/2024 3:58 PM MANUFACTURING ENGINEER [facility] Influenza B PCR Not detected Not detected 03/16/2024 3:58 PM MANUFACTURING ENGINEER [facility] RSV PCR Not detected Not detected 03/16/2024 3:58 PM MANUFACTURING ENGINEER [facility] Microbiology SPECIMEN FROM NASOPHARYNGEAL STRUCTURE / Unknown Collection / Unknown 03/16/2024 3:10 PM MANUFACTURING ENGINEER 03/16/2024 3:15 PM MANUFACTURING ENGINEER Narrative [facility] - 03/16/2024 3:58 PM MANUFACTURING ENGINEER Droplet Precautions Required. This nucleic acid amplification assay has been authorized by the Food and Drug administration (FDA) under an Emergency Use Authorization (EUA). This test is only authorized for the [...] EUA assay are available upon request. Debbi Goyal Kathryn SENIOR STEREO COMPILER TEAM LEAD-GLOBAL SUPPLY CHAIN VICE PRESIDENT LAB - MICROB IOLOGY ORDERABLES [facility] [address] [place] [address], [facility] [phone] * EKG 12-LEAD (03/16/2024 2:48 PM MANUFACTURING ENGINEER) Pathologist [facility] Ventricular Rate 87 BPM [facility] M[facility] Atrial Rate 87 BPM [facility] P-R Interval 152 ms [facility] QRS Duration ms 118 ms [facility]USE Q-T Interval ms 400 ms [facility] M[facility] QTC Calculation (Bezet) 481 ms [facility] Calculated P [place] 69 degrees [facility] Calculated R [place] -43 degrees [facility] Calculated T [place] 98 degrees [facility] Interpretation EKG NORMAL SINUS RHYTHM WITH SINUS ARRHYTHMIA LEFT AXIS DEVIATION MINIMAL VOLTAGE CRITERIA FOR LVH, MAY BE NORMAL VARIANT ( [place] product ) ANTEROSEPTAL INFARCT (CITED ON OR BEFORE 01-JAN-2024) ABNORMAL ECG WHEN COMPARED WITH ECG OF 09-FEB-2024 19:42, SIGNIFICANT CHANGES HAVE OCCURRED Confirmed by GELACIO LANCE MD ([id number]) on 03/18/2024 8:05:11 AM [facility] MUSE 03/16/2024 2:48 PM MANUFACTURING ENGINEER 03/18/2024 8:05 AM MANUFACTURING ENGINEER Debbi Peralta SENIOR STEREO COMPILER TEAM LEAD-GLOBAL SUPPLY CHAIN VICE PRESIDENT ECG ORDERABL ES [facility] M[facility] * (ABNORMAL) BASIC METABOLIC PANEL (BMP) (03/15/2024 8:45 AM MANUFACTURING ENGINEER) Glucose 91 70 - 99 mg/dL [facility] [...] BLOOD SPECIMEN / Unknown 03/15/2024 8:45 AM MANUFACTURING ENGINEER 03/15/2024 Narrative [facility] INSURANCE BILL - 03/16/2024 6:10 AM MANUFACTURING ENGINEER Performed at: 01 - [facility] [address] [place], [place] [id number] Sustainability Coach: El Fan PhD, Phone: [phone] Bahman Ann MD LAB - CHEMISTRY ORDERABLES [facility] INSURANCE BILL [address] [place] [address] * XR Cervical Spine 2 or 3Vw (03/12/2024 2:45 PM MANUFACTURING ENGINEER) Anatomical Region Laterality Modality Spine Computed Radiogr aphy 03/12/2024 3:29 PM MANUFACTURING ENGINEER Impressions 03/12/2024 3:37 PM MANUFACTURING ENGINEER IMPRESSION: Redemonstration of postoperative changes cervical spinal fusion as described above, unchanged compared to prior exam. The report was drafted by Emil Carrillo MD (residential program manager) 03/12/2024 3:29 PM. IMaria Eugenia MD have personally reviewed and interpreted this examination/study. > Interpreting Provider: Maria Eugenia Howard MD on 03/12/2024 3:37 PM Narrative 03/12/2024 3:37 PM MANUFACTURING ENGINEER PROCEDURE: XR CERVICAL SPINE 2 OR 3VW, DATE/TIME OF EXAM: 03/12/2024 2:45 PM, LOCATION [facility] INDICATION: Z98.1: S/P cervical spinal fusion [...] 3VW, DATE/TIME OF EXAM: 52:45 PM, LOCATION [facility] INDICATION: Z98.1: S/P cervical spinal fusion [...] was drafted by Emil Carrillo MD (residential program manager) 03/12/2024 3:29 PM. I, Maria Eugenia Howard MD have personally reviewed and interpreted this examination/study. > Interpreting Provider: Maria Eugenia Howard MD on 03/12/2024 3:37 PM Ryland Fuentes MD DIAGNOSTIC IMAGING O RDERABLES * HEPATITIS C AB SCREEN RFLX NAAT QUANT (10/18/2023 4:48 PM CDT) Hepatitis C Antibody Non-react nayeli Non-reac tive 10/18/2023 5:48 PM CDT [facility] Comment:Hepatitis C Antibody screen [...] Ocasio DO LAB - CHEMISTRY RASHID INFANTE [facility] [address] [place] [phone], [facility] [phone] * MAMMO BILAT SCREENING (10/13/2021) Anatomical Region Laterality Modality Breast Bilateral Mammography 10/13/2021 Lety Campbell SENIOR STEREO COMPILER TEAM LEAD-GLOBAL SUPPLY CHAIN VICE PRESIDENT MAMMO ORDERABLES * DEXA BONE DENSITY AXIAL SKELETON (01/26/2016 9:02 AM MANUFACTURING ENGINEER) Anatomical Region Laterality Modality Other Narrative 01/26/2016 9:41 AM MANUFACTURING ENGINEER Examination: Dual energy x-ray absorptiometry of the lumbar spine and hip. Clinical Indication: Prekidney evaluation, history low calcium reported by the patient Findings: Detailed data from the exam is sent separately to the ordering physician and is also available on [employer]ILICASE, the Radiology Department's computerized picture archive system [...] degrees of osteopenia. This report was approved by Gonzalo Penny on 01/26/2016 9:[address] RANULFO Bran D.O. have personally reviewed and interpreted this examination/study. This report was electronically signed by RANULFO PELAEZ D.O. on 01/26/2016 9:41 AM . Procedure Note Ranulfo Pelaez, DO - 05/20/2017 Examination: Dual energy x-ray absorptiometry of the lumbar spine andhip. Clinical Indication: Prekidney evaluation, history low calcium reported bythe patient Findings: Detailed data from the exam is sent separately to the orderingphysician and is also available on [employer]ILIC[employer], the Radiology Department'Can[employer] picture archive system SUMMARY: No prior study [...] Documents on File Type Date Recorded Patient Microfilming Document Preparer Expl anation Adv Directive/Living Will/POA 03/07/2013 8:32 [...] 10:36 PM 04/13/2023 7:41 PM Care Teams Strategic Planning Consultant Relationship Specialty Start Date End Date Federico Branham Jr., MD [address] [place] [address] PCP - Strive ACO 10/22/23 Federico [place] Jr., MD [address] [place] [address] PCP - General Family Medicine 12/15/23 Octavia Parry, SENIOR STEREO COMPILER TEAM LEAD-GLOBAL SUPPLY CHAIN VICE PRESIDENT [address] [facility] [place] [address] PCP - Attributed-MSSP 11/21/23 Farrukh Solorzano MD [address] [facility] [place] [address] [place] [address] -[phone] (Work) Cardiovascular Disease 08/01/18 Keya Reina MD [address] [facility] [place] [address] [place] [address] Gastroenterology 08/01/18 Osmar Zambrano MD [address] [facility] [place] [address] [place] [address] Otolaryngology 08/01/18 Francisco Tobin MD [address] [phone] Pulmonary Disease 08/01/18 Jc Moreau MD [facility] [address] [place] [address] Nephrology 08/01/18 [place] [address] [facility] [address] [place] [address] Automation Mechanic Cardiac Electrophysiology 09/03/18 [place] [address] [facility] [address] [place] [address] Cardiology 04/25/19 Care, [facility] Kidney Gift ManagerCnc Grinder 08/29/19
--- OUTSIDE RECORDS SUMMARY | 2024-05-27 13:52 | XMS_ITS | Encounter Summary ---
Author Organization [facility] Address [address] [place] [address] Care Team Providers Care Bottom Loader Name Role Phone Carrol Pitts MD, Federico Howe Primary Care Provider Farrukh Solorzano MD Unavailable -[phone] Keya Reina MD Unavailable Unavailable JupiterOsmar MD Unavailable Francisco Tobin MD Unavailable [phone] Jc Moreau MD Unavailable [phone] Ryland Alves MD Unavailable Lorene Ly MD Unavailable [facility] [place], [facility]ney Unavailable Bahman Ann MD Unavailable [phone] Mendy Camacho Unavailable Liss Gooden MD Primary Care Provider Alycia Holguin RN Unavailable [phone] Kylah Solares Unavailable [phone] Carrol Pitts MD, Federico Howe Unavailable Carrol Pitts MD, Federico Howe Unavailable Carrol Pitts MD, Federico Howe Primary Care Provider Sohan Octavia D SURGICAL ELASTIC KNITTER HAND FRAME-[facility] Unavailable [phone] Encounter Details Date Type Department Care Team (Late st Contact Info) Description 08/22/2023 Telephone [facility] - Orthopedics [address] [place] [phone] Jory Price RN Social History Tobacco [...] Sex Assigned at Female 02/14/2020 1:06 PM GEOPHYSICAL DATA TECHNICIAN Gender Identity Female 02/14/2020 1:05 PM GEOPHYSICAL DATA TECHNICIAN Sexual Orientation Straight 02/14/2020 1: 05 PM GEOPHYSICAL DATA TECHNICIAN documented as of this encounter Functional Status [...] Description 06/06/2024 8:45 AM CDT Office Visit [facility] - Ophthalmology [address] [place] [phone] Jaylon Marks MD [address] [place] [address] [place] [address] 07/16/2024 2:15 PM CDT Office Visit [facility] - Orthopedics [address] [place] [phone] Ryland Fuentes MD [address] [place] [address] 07/30/2024 10:20 AM CDT Office Visit [facility] - Family Medicine [address] [place] [address] [address] [place] [address] Liss Gooden MD [facility] [address] [facility] [address] [place] [address] 08/06/2024 10:20 AM CDT Office Visit [facility] - Podiatry [id number] [place] [address] [address] [place] [address] Devika Rolon DPM [address] [facility] [address] [place] [address] 08/16/2024 1:15 PM CDT Office Visit [facility] [address] [facility] [address] [place] [address] Federico Branham Jr., MD [address] [place] [address] Bahman Ann MD [facility]7 [facility] [address] [place] [address] 11/26/2024 9:30 AM CDT Office [facility] - Neurology [address] [place] [address] [place] [address] Familia Duncan MD [address] [place] [address] [place] [address] 01/10/2025 10:00 AM GEOPHYSICAL DATA TECHNICIAN Office Visit [facility] - GI [address] [place] [phone] Thais Euceda PA-C [address] [facility] DEPT [place] [address] documented as of this encounter Goals Goal Patient Goal Type Associated Problems Recent Progress Patient-Stated? Author Medication Management General On track( 024 9:50 AM GEOPHYSICAL DATA TECHNICIAN) Andra Fonseca, JAMESON Note: Expected end date: [...] Under Investigation 03/16/2024 03/16/2024 03/16/2024 2:43 PM GEOPHYSICAL DATA TECHNICIAN COVID-19 Under Investigation 03/16/2024 03/16/2024 03/16/2024 3:58 PM GEOPHYSICAL DATA TECHNICIAN Influenza A or B 03/16/2024 03/16/2024 03/23/2024 4:33 AM GEOPHYSICAL DATA TECHNICIAN documented as of this encounter Care Teams Bottom Loader Relationship Specialty Start Date End Date Federico Branham Jr., MD PCP - General Family Medicine 08/01/18 09/24/23 Bahman Ann MD [address] [phone] PCP - Strive ACO 08/21/23 10/21/23 [place] [address] [address] PCP - General Family Medicine 09/25/23 12/14/23 Federico Branham Jr., MD [address] [place] [address] PCP - Strive ACO 10/22/23 Federico Branham Jr., MD [address] [place] [address] PCP - Attributed-MSSP 08/21/23 11/20/23 Federico Branham Jr., MD [address] [place] [address] PCP - General Family Medicine 12/15/23 Octavia Parry, SURGICAL ELASTIC KNITTER HAND FRAME-WOMEN'S ACTIVITIES ADVISER [address] [facility] [place] [address] PCP - Attributed-MSSP 11/21/23 Farrukh Solorzano MD [address] [facility] [address] [place] [address] -x7 (Work) Cardiovascular Disease 08/01/18 Keya Reina MD [address] [place] [address] [address] [place] [address] Gastroenterology 08/01/18 Osmar Zambrano MD [address] [place] [address] [address] [place] [address] Otolaryngology 08/01/18 Francisco Tobin MD [address] [address] Pulmonary Disease 08/01/18 Jc Moreau MD [address] [facility] [address] [place] [address] Nephrology 08/01/18 [place] [address] [facility] [address] [place] [address] Group Art Supervisor Cardiac Electrophysiology 09/03/18 [place] [address] [facility] [address] [place] [address] Cardiology 04/25/19 Care, [facility] Kidney Electrical Mechanical TechnicianManager Systems 08/29/19 Mendy Camacho [address] [facility] [address] [place] [address] Care Coordination Specialist Care Management 09/21/23 09/21/23 Alycia Holguin, RN [address] [facility] [address] Electrical Mechanical TechnicianManager Systems 10/20/23 10/20/23 Kylah Solares Care Coordination Specialist Care Management 10/25/23 12/01/23 documented as of this encounter
--- OUTSIDE RECORDS SUMMARY | 2024-05-27 13:52 | XMS_ITS ---
Author Organization [facility] [address] Address [address] [place] [address] Care Team Providers Care Corporate Recruiter Name Role Phone Carrol Pitts MD, Federico Howe Primary Care Provider Adalberto Linder MD Unavailable [phone] Jc Moreau MD Unavailable [phone] Carmen Chavez RN Unavailable Bahman Ann MD Unavailable Transplant Episode Kidney Candidate [facility] [place] - [facility] Evaluation began on 04/11/2024 Marked as Active on 04/11/2024 Reason: Evaluation - Standard Kidney CoordinatorCarmen Chavez RN Fax: N/A Email: N/A Scores Score Value Updated Exceptions/Reas ons CPRA Not available EPTS (Calc) 100 05/27/2024 [place] Organ Diagnosis Organ Primary Contributory Kidney Diabetes Mellitus - Type II Care Team Name Role Phone Fax Email Carmen Chavez RN Kidney Coordinator [phone] N/A N/A Jc Moreau MD Referring Physician [phone] N/A Lorene Banerjee Primary Still Operator Gin N/A N/A N/A Emerald Mcgraw Salesperson [employer] [phone] N/A N/A Events Pre-Transplant Referred: 03/07/2024 Evaluation began: 04/11/2024 Dialysis History Dialysis History Start End Type Comments Center 09/23/2009 Vladislav [facility] Information Center Phone Fax Address [facility] [phone] [address] [address]
--- OUTSIDE RECORDS SUMMARY | 2024-05-27 13:52 | XMS_ITS | Encounter Summary ---
Author Organization [facility] Address [address] [place] [phone] Phone Care Team Providers Care Barbecue Cook Name Role Phone Unavailable Primary Care Provider Unavailabl e Reason for Visit * Reason Comments Med Refill Encounter Details Date Type Department Care Team (Late st Contact Info) Description 08/20/2018 Refill [facility] Nephrology and Hypertension [address] [place] [place] [address] [facility] [place] [address] Jc Moreau MD [address] [facility], [address] [place] [address] Social History Tobacco Use Types Packs/Day Years [...]
--- OUTSIDE RECORDS SUMMARY | 2024-05-27 13:52 | XMS_ITS | Encounter Summary ---
Author Organization [facility] Address [address] [facility] [place] [address] Care Team Providers Care Doughnut Dough Mixer Name Role Phone Eden Godoy Donavan Unavailable Unavailable Carrol Pitts MD, Federico Howe Primary Care Provider Farrukh Solorzano MD Unavailable -[phone] Keya Reina MD Unavailable Unavailable Bonners FerryOsmar browne MD Unavailable Francisco Tobin MD Unavailable Jc Moreau MD Unavailable [phone] Ryland Alves MD Unavailable Lorene Ly MD Unavailable [facility] Unavailable Carrol Pitts MD, Joseph Theodore Unavailable Celi Carter LCSW Unavailable Carrol Pitts MD, Joseph Theodore Unavailable Ryland Alves MD Unavailable [phone] Piotr Alvarez MD Unavailable [phone] Carrol Pitts MD, Federico Howe Unavailable Julee Kang MD Unavailable [phone] Carrol Pitts MD, Joseph Theodore Unavailable Bahman Ann MD Unavailable Oralia Boone RN Unavailable [phone] Francesco Hong MD Unavailable Zoey Boyle IMPREGNATOR [employer]-EPIC PROFESSIONAL Unavailable [phone] Bahman Ann MD Unavailable Mendy Camacho Unavailable Liss Gooden MD Primary Care Provider [phone] Alycia Holguin RN Unavailable Kylah Solares Unavailable Carrol Pitts MD, Federico Howe Unavailable Carrol Pitts MD, Joseph Theodore Unavailable Carrol Pitts MD, Federico Howe Primary Care Provider Octavia Parry IMPREGNATOR [employer]-EP[employer] PROFESSIONAL Unavailable Encounter Details Date Type Department Care Team (Late st Contact Info) Description 05/19/[address] [facility] Outpatient Visit [facility] [address] [place] [address] Millie Carnes APRN-CNP [address] [place] [address] Social History Tobacco Use Types Packs/Day Years Used Date Smoking Tobacco: Never Smokeless Tobacco: Never Alcohol Use Standard Drinks/Week Comments No 0 (1 standard drink = 0.6 oz pur e alcohol) Sex and Gender Information Value Date Recorded Sex Assigned at Female 02/14/2020 1:06 PM CONTENT ADMINISTRATOR Gender Identity Female 02/14/2020 1:05 PM CONTENT ADMINISTRATOR Sexual Orientation Straight 02/14/2020 1: 05 PM CONTENT ADMINISTRATOR documented as of this encounter Functional Status [...] Description 06/06/2024 8:45 AM CDT Office Visit [facility] - Ophthalmology [address] [place] [phone] Jaylon Marks MD [address] [place] [address] [place] [address] 07/16/2024 2:15 PM CDT Office Visit [facility] - Orthopedics [address] [place] [phone] Ryland Fuentes MD [address] [place] [address] 07/30/2024 10:20 AM CDT Office Visit [facility] - Family Medicine [address] [place] [address] [address] [place] [address] Liss Gooden MD [facility] [address] [facility] [address] [place] [address] 08/06/2024 10:20 AM CDT Office Visit [facility] - Podiatry [address] [place] [address] [address] [place], [place] [phone] Devika Rolon [facility] [address] [place], [place] [phone] 08/16/2024 1:15 PM CDT Office Visit [facility] Heart & Vascular Care [facility]7 [facility] [address] [place] [address] Federico Branham Jr., MD [address] [place] [address] Bahman Ann MD [facility]7 [facility] [address] [place] [address] 11/26/2024 9:30 AM CDT Office Visit [facility] - Neurology [address] [place] [phone] Familia Duncan MD [address] [place] [address] [place] [address] 01/10/2025 10:00 AM CONTENT ADMINISTRATOR [facility] [address] [place] [address], [place] [address] Thais Euceda PA-C [address] [facility] [place]PT [place] [address] documented as of this encounter Goals Goal Patient Goal Type Associated Problems Recent Progress Patient-Stated? Author Medication Management General On track( 024 9:50 AM CONTENT ADMINISTRATOR) Andra Fonseca, JAMESON Note: Expected end date: [...] Under Investigation 02/09/2023 02/09/2023 02/09/2023 2:41 PM CONTENT ADMINISTRATOR COVID-19 Under Investigation 10/14/2023 10/14/2023 10/14/2023 11:24 AM CDT COVID-19 Under Investigation 03/16/2024 03/16/2024 03/16/2024 2:43 PM CONTENT ADMINISTRATOR COVID-19 Under Investigation 03/16/2024 03/16/2024 03/16/2024 3:58 PM CONTENT ADMINISTRATOR Influenza A or B 03/16/2024 03/16/2024 03/23/2024 4:33 AM CONTENT ADMINISTRATOR documented as of this encounter Care Teams Doughnut Dough Mixer Relationship Specialty Start Date End Date Federico Branham Jr., MD PCP - General Family Medicine 08/01/18 09/24/23 Federico Branham Jr., MD [address] [place] [address] PCP - Attributed-MSSP 02/21/20 10/20/21 Federico Branham Jr., MD [address] [place] [address] PCP - Strive ACO 09/27/21 01/09/[address] [place] [address] [facility] [address] [place] [address] PCP - Attributed-MSSP 10/21/21 2 Piotr Alvarez MD [address] [place] [address] PCP - Strive ACO 01/10/22 03/28/22 Federico Branham Jr., MD [address] [place] [address] PCP - Attributed-MSSP 01/20/22 05/21/23 Julee Kang MD [address] [facility] [address] [place] [address] PCP - Strive ACO 03/29/22 05/20/22 Federico Branham Jr., MD [address] [place] [address] PCP - Strive ACO 05/21/22 08/19/22 Bahman Ann MD [facility] 200 [place] [phone] PCP - Strive ACO 08/20/22 12/20/22 Francesco Hong MD [address] [place] [address] PCP - Strive ACO 12/21/22 08/20/23 Zoey Boyle, IMPREGNATOR [employer]EP[employer] PROFESSIONAL [address] [place] [address] PCP - Attributed-MSSP 05/22/23 08/20/23 Bahman Ann MD [address] [facility] 200 [place] [address] PCP - Strive ACO 08/21/23 10/21/23 [place] [address] [facility] 600 [place] [address] PCP - General Family Medicine 09/25/23 12/14/23 Federico Branham Jr., MD [address] [place] [address] PCP - Strive ACO 10/22/23 Federico Branham Jr., MD [address] [place] [address] PCP - Attributed-MSSP 08/21/23 11/20/23 Federioc Branham Jr., MD [address] [place] [address] PCP - General Family Medicine 12/15/23 Octavia Parry, IMPREGNATOR [employer]-EP[employer] PROFESSIONAL [address] [place] [address] PCP - Attributed-MSSP 11/21/23 Eden Godoy Dialysis Liaison 07/01/16 04/10/23 Farrukh Solorzano MD [address] [facility] [address] [place] [address] -x7 (Work) Cardiovascular Disease 08/01/18 Keya Reina MD [address] [facility] [address] [place] [address] Gastroenterology 08/01/18 Osmar Zambrano MD [address] [facility] [address] [place] [address] Otolaryngology 08/01/18 Francisco Tobin MD [address] [facility] 1 [place] [phone] Pulmonary Disease 08/01/18 Jc Moreau MD [address] [facility] [address]80 [place], [place] [phone] Nephrology 08/01/18 [place] [address] [facility] [address] [place] [address] Network Systems Analyst Cardiac Electrophysiology 09/03/18 [place] [address] [facility] [address] [place] [address] Cardiology 04/25/19 [facility] Fish Egg PackerNurse Ortho 08/29/19 Celi Carter, [facility] Behavioral Health Therapist Care Management 05/13/20 05/19/20 Oralia Boone, JAMESON Fish Egg PackerNurse Ortho 12/27/22 12/27/22 Mendy Camacho [address] [facility] [address] [place] [address] Care Coordination Specialist Care Management 09/21/23 09/21/23 Alycia Holguin, RN [address] [place] [address] Fish Egg PackerNurse Ortho 10/20/23 10/20/23 Kylah Solares Care Coordination Specialist Care Management 10/25/23 12/01/23 documented as of this encounter
--- OUTSIDE RECORDS SUMMARY | 2024-05-27 13:53 | XMS_ITS | Referral Summary ---
Author Organization [facility] [address] Address [address] [place] [address] Care Team Providers Care Mill Worker Name Role Phone Carrol Pitts MD, Federico Howe Primary Care Provider Roxanna Linder MD Unavailable Jc Moreau MD Unavailable Carmen Chavez RN Unavailable [phone] Bahman Ann MD Unavailable [phone] Encounters Date Type Department Care Team Description 05/23/2024 10:15 AM CDT Pre-Admission Testing [facility] Pre Anesthesia Testing [address] [place] [address] Preop testing (Primary Dx) 05/13/2024 2:30 PM CDT Office Visit [facility] Surgery [address] [place] [phone] Roxanna Linder MD CRF (chronic renal failure), stage 5 (HCC) (Primary Dx); Arteriovenous fistula stenosis, sequela 05/13/2024 1:45 PM CDT Ancillary Procedure [facility] Surgery [address] [place] [phone] Arteriovenous fistula, acquired; 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, initial encounter 04/25/2024 1:45 PM MASTER COOK Office Visit [facility] Surgery [address] [place] [address] [place] [phone] Roxanna Linder MD Postop check (Primary Dx); 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, initial encounter; Arteriovenous fistula, acquired 04/12/2024 Documentation [facility] Transplant Kidney [address] [facility][1] [address] [id number] [place] [address] Carmen Chavez, RN Kidney Eval 04/12/2024 Documentation [facility] Transplant Kidney [address] [facility][1] [address] -[phone] [place] [address] Lorene Banerjee 04/11/2024 Orders Only [facility] Cardiology [address] [place] [address] Miles Abraham MD 04/11/2024 Telephone [facility] Transplant Kidney [address] [facility][1] [address] [phone] [place] [address] Carmen Chavez, RN Kidney Eval (Eval to schedule for 07/04/24) 04/11/2024 Telephone [facility] Transplant Kidney [address] [facility][1] [address] [phone] [place] [address] Carmen Chavez, glassware engraver - Kidney Txp 03/18/2024 Documentation [facility] Transplant Kidney [address] [facility][1] [address] [id number] [place] [address] Carmen Chavez, glassware engraver - Kidney Txp 03/14/2024 Documentation [facility] Transplant Kidney [address] [facility][1] [address] [phone] [place] [address] Lorene Banerjee 03/12/2024 Telephone [facility] Surgery [address] [facility] [address] [place] [address] Roxanna Linder MD Med Management 03/11/2024 Documentation [facility] Transplant Kidney [address] [facility][1] [address] [id number] [place] [address] Carmen Chavez RN Referral - Kidney Txp 03/11/2024 Telephone [facility] Transplant Kidney [address] [facility][1] [address] [phone] [place] [address] Lorene Banerjee Referral - Kidney Txp 03/08/2024 12:22 PM MASTER COOK Anesthesia Event [facility] Operating Room [address] [place] [phone] Miguel Becker MD 03/08/2024 12:00 PM MASTER COOK - 03/08/2024 2:30 PM MASTER COOK Surgery [facility] Operating Room [address] [place] [phone] Roxanna Linder MD Revision Left Arm AV Fistula 03/08/2024 9:36 AM MASTER COOK - 03/08/2024 3:38 PM MASTER COOK Hospital Encounter [facility] Operating Room [address] [place] [phone] Roxanna Linder MD Complication of arteriovenous dialysis fistula, subsequent encounter (Primary Dx); End stage renal disease (HCC) Discharge Disposition: Discharge to home or self care 03/07/2024 Telephone [facility] Transplant Kidney [address] [facility][1] [address] [phone] [place] [address] Jodi Cooper Referral - Kidney Txp 03/04/2024 1:00 PM MASTER COOK Office Visit [facility] Surgery [address] [address] Roxanna Linder MD 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, initial encounter from Last 3 Months Allergies Active Allergy Reactions Criticality Noted Date Comments Lisinopril Anxiety,Cough,Dizzin ess,Other (See comments),Palpitations,Shortn ess of breath,Vision changes High 11/01/2012 Voice changed Propoxyphene Shortness of breath,Palpitations,Mental status changes,Vision changes,Dizziness,Eye irritation,Nausea only High 09/28/1987 Valsartan Other (See comments) Medium 11/09/2015 Loses her voice Medications tiZANidine (ZANAFLEX) 4 mg tablet Take 1 tablet (4 mg total) by mouth every 6 (six) hours as needed 4 Active polyvinyl alcohol [...] Active midodrine (PROAMATINE) 5 mg tablet Take 2 tablets (10 mg total) by mouth 2 (two) times a day 7 Active levothyroxine (SYNTHROID) 50 mcg tablet Take 1 tablet (50 mcg total) by mouth 3 (three) times a week Mon, Wed, Fri- days 8 Active levalbuterol (XOPENEX HFA) 45 mcg/actuation inhaler INHALE 1 PUFF BY MOUTH EVERY 6 HOURS NEEDED Active latanoprost (XALATAN) 0.005 % ophthalmic solution Administer 1 drop into affected eye(s) nightly 4 Active lanthanum (FOSRENOL) 1,000 mg chewable tablet Take 1 tablet (1,000 mg total) by mouth Taken with meals 1 Active Dialyvite 800 0.8 mg tablet Take 0.8 mg by mouth every morning 4 Active fluticasone propionate (FLONASE) 50 mcg/actuation nasal spray Administer 2 sprays into affected nostril(s) daily 4 Active FLUoxetine 10 mg capsule Take 1 tablet/capsule (10 mg total) by mouth 3 (three) times a week Mon, Wed, Mon Active digoxin (LANOXIN) 125 mcg (0.125 mg) tablet Take 1 tablet (0.125 mg total) by mouth 2 (two) times a week and Sundays 2 Active calcium acetate,phosph at bind, (PHOSLO) 667 mg capsule Take 2 capsules (1,334 mg total) by mouth every morning 5 Active atorvastatin (LIPITOR) 40 mg tablet Take 1 tablet (40 mg total) by mouth nightly 4 Active aspirin 81 mg enteric coated tablet Take 1 tablet (81 mg total) by mouth every morning 5 Active albuterol HFA (PROVENTIL HFA,VENTOLIN HFA,PROAIR HFA) 90 mcg/actuation inhaler Inhale 2 puffs every 6 (six) hours as needed 2 Active acetaminophen (TYLENOL) 500 mg tablet Take 2 tablets (1,000 mg total) by mouth every 4 (four) hours as needed Active clopidogreL (PLAVIX) 75 mg tablet Take 1 tablet (75 mg total) by mouth every morning 4 Active benzonatate (TESSALON) 100 mg capsule Take 1 capsule (100 mg total) by mouth as needed 4 Active metoprolol XL (TOPROL-XL) 25 mg extended release tablet Take 1 tablet (25 mg total) by mouth every morning 5 Active levoFLOXacin (LEVAQUIN) 500 mg tablet Take 1 tablet (500 mg total) by mouth every morning 5 Active cholecalcifero l, vitamin D3, (VITAMIN D3 ORAL) Take 1 tablet/capsule by mouth every morning Active gabapentin (NEURONTIN) 100 mg capsule Take 2 capsules (200 mg total) by mouth 2 (two) times a day 05/24/19 25 Discontinu ed(Error) predniSONE (DELTASONE) 10 mg tablet 4 05/24/19 25 Discontinu ed(Error) ibuprofen 200 mg tab/cap Take 1 tablet/capsule (200 mg total) by mouth every 6 (six) hours as needed for pain 05/24/19 25 Discontinu ed(Error) HYDROcodone-ac etaminophen (NORCO) 5-325 mg per tabletIndicati ons:Pain Take 1 tablet by mouth every 6 (six) hours as needed for pain 8 tablet 5 05/24/19 25 Discontinu ed(Error) azithromycin (ZITHROMAX) 250 mg tablet 1 tablet (250 mg total) 5 05/24/19 25 Discontinu ed(Error) budesonide-for moteroL (SYMBICORT) 160-4.5 mcg/actuation inhaler Inhale 2 puffs 2 (two) times a day 5 05/24/19 25 Discontinu ed(Error) oseltamivir (TAMIFLU) 30 mg capsule 1 capsule (30 mg total) 5 05/24/19 25 Discontinu ed(Error) Active Problems Problem Noted Date Diagnosed Date Arteriovenous fistula stenosis 05/13/2024 Aortic root dilatation 03/22/2024 Complication of arteriovenous dialysis fistula 0 03/08/2024 End stage renal disease 03/04/2024 S/P arteriovenous (AV) fistula creation 01/30/20 Steal syndrome as complication of dialysis acces s 01/25/2024 Hyperlipidemia 01/08/2024 Spinal stenosis of lumbar [...] pressor needs Moderate mitral regurgitation 11/10/2021 Paraparesis 11/10/2021 Chronic systolic heart failure 10/20/2020 Overview (01/08/2024): 05/10/2021 Dr. Carrol MORALES 7.15.2020 Jory Freedman, INSPECTOR AND HAND PACKAGER-[facility] Cardiology Tortuous aorta 10/20/2020 Overview (01/08/2024): 05/10/2021 Dr. Carrol MORALES [...] Restrictive lung disease 08/15/2016 Typical atrial flutter 08/15/2016 Hyperparathyroidism, secondary renal 07/23/2015 Overview (01/08/2024): 05/10/2021 Dr. Carrol MORALES Paroxysmal atrial fibrillation 04/26/2015 Overview (01/08/2024): 05/10/2021 Dr. Carrol MORALES Hypertensive disorder 05/17/2012 Type 2 diabetes mellitus without complication End-stage renal disease 02/21/2000 Overview (01/08/2024): 05/10/2021 Dr. Carrol MORALES Athscl heart disease of venecia ve coronary artery w/o ang pctrs 02/21/2000 Overview (01/08/2024): Mild, non-obstructive CAD Other specified chronic obstructive pulmonary di sease 02/21/2000 Overview (01/08/2024): Certified Income Tax Preparer Dr Tobin Other cardiomyopathies 02/21/2000 Overview (01/08/2024): 09/24/2020 Dr. Joselyn MORALES Congestive heart failure 02/21/2000 Obstructive sleep apnea (adult) (pediatric) 02/2000 Overview (01/08/2024): uses CPAP without O2- compliant most nights uses CPAP without O2- compliant most nights Dependence on renal dialysis 02/21/2000 Generalized anxiety disorder 02/21/2000 Hypertensive heart and chron ic kidney disease with heart failure and with stage 5 chronic kidney disease, or end stage renal disease 02/21/2000 Low back pain, unspecified 02/21/2000 Other chronic pain 02/21/2000 Pure hypercholesterolemia, unspecified 1 Type 2 diabetes mellitus wit h diabetic chronic kidney disease 02/21/2000 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 02/21/2000 Immunizations Immunization Administration Dates Next Due BCG 10/16/2019, 9,10/11/2017,10/12,09/30/2015,10/08/2014,10/07/2013 ,11/10/2012,05/23/2012 COVID-19 MRNA (MODERNA) .5 M L (50 MCG) VACCINE (12 YEARS AND UP) 01/08/2021,04/23/2020,03/23/2020 COVID-19 mRNA (PFIZER) 0.3 m L (30 mcg) vaccine (12 years and up) 04/23/2020 Influenza Virus Vaccine Trivalent Mdv 12/03/2021 ,12/04/2020 Influenza, Quadrivalent, Hig h Dose, Preservative Free, Intrr 11/22/2023 Influenza, Trivalent, Preser vative Free, Intramuscular 11/19/2015 Influenza, Unspecified 11/22/2023,2022,11/21/2022,11/07,12/24/2018,11/15/2017,11/09/2016 ,11/19/2014,10/30/2013,11/10/2012,08/2011 Moderna SARS-CoV-2 Monovalen t Vaccination (12+ YRS) 01/08/2021,04/23/2020,03/23/2020 PPD TEST 11/13/2023,09/28/2022,10/13/2021 Pfizer SARS-CoV-2 Monovalent Vaccination (12+ Yrs) PURPLE 04/02/2020,03/31/2020 Pfizer Sars-Cov-2 Bivalent V accination (12+ YRS) 01/08/2021,03/23/2020 Pneumococcal Conjugate PCV 13 07/15/2019 Pneumococcal Conjugate, Unspecified 09/16/2019,1 Pneumococcal Polysaccharide PPV23 05/10/2021,09/2009 Pneumococcal, Unspecified 09/16/2019 Tdap 11/13/2023,09/28/2022,12/11/2018 ZOSTER Recombinant 01/07/2020,12/11/2018 Social History Tobacco Use Types Packs/Day Years Used Date Smoking Tobacco: Never Smokeless Tobacco: Never Tobacco Cessation:Counseling Given: Not Answered [facility] Sorbent Greenities Answer Date Recorded In the past 12 months has [employer], gas, oil, or water company threatened to [...] week 01/31/2024 How often do you attend [facility] or confucianist services? More than 4 times per year [...] you have a drink containing alcohol? Never 05/23/2024 Q2: How many drinks containi ng alcohol do you have on a typical day when you are drinking? Patient does not drink Q3: How often do you have si x or more drinks on one occasion? Never 05/23/2024 Overall Financial Resource Strain (CARDIA) Answe r [...] time in the past 12 m [facility], were you homeless or living in a senior living (including now)? No 01/31/2024 Personal Safety Answer Date Recorded Have you ever been in or are you currently in a harmful physical or emotional relationship or is someone making you feel afraid or unsafe? Denies 03/08/2024 Comments No Sex and Gender Information Value Date Recorded Sex Assigned at Not on file Legal Sex Female 1:25 AM MASTER COOK Gender Identity Female 04/11/2024 8:21 PM MASTER COOK Sexual Orientation Straight 04/11/2024 8: 21 PM MASTER COOK Last Filed Vital Signs Vital Sign Reading Time Taken Comments Blood Pressure 129/78 05/23/2024 10:17 AM CDT Pulse 77 05/23/2024 10:17 AM CDT Temperature 38 C (100.4 F) 05/13/2024 2:11 PM CDT Respiratory Rate 16 03/08/2024 2:50 PM MASTER COOK Oxygen Saturation 96% 05/23/2024 10:17 AM CDT Inhaled Oxygen Concentration - - Weight 70.1 kg (154 lb 8.7 oz) 05/23/2024 10:11 AM CDT Height 157.5 cm (5' 2 ) 05/23/2024 10:11 AM CDT Body Mass Index 28.27 05/23/2024 10:11 AM CDT Plan of Treatment Upcoming Encounters Date Type Department Care Team (Late st Contact Info) Description 05/22/2024 11:59 PM CDT Anesthesia Event [facility] Operating Room [address] [place] [phone] Kita Velazquez NP [facility] [address] [place] [phone] Medical Devices Implanted Type Area Tractor Technician Device Identifier Shelf Expiration Date Model / Serial / Lot Bard Peripheral Vascular Pledget Cardiovascular Nominal Thickness Polytetrafluoroethylene 1.65mmx1/4x1/4in [id number] - [id number] Implanted:Qty: 1 on 01/30/2024 by Roxanna Linder MD at [facility] Left: Forearm [employer] Peripheral Vascular [id number] 11/17/2025 [id number] / / [id number] [facility] UserEvents Duraflow Embosafe 15.5fr 24cm Basic 2 Lumen Kit Catheter [id number] - [id number] Implanted:Qty: 1 on 01/31/2024 at [facility] Dental Kidz 10/20/2025 [id number] / / [id number] Procedures Procedure Name Priority Date/Time Associated Diagnosis Comments DIFFERENTIAL AUTO Routine 05/23/2024 11: 56 AM CDT Preop testing APTT Routine 05/23/2024 11:56 AM CDT Preop testing PROTIME-INR Routine 05/23/2024 11:56 AM CDT Preop testing CBC WITH AUTO DIFFERENTIAL Routine 05/23/2024 11:56 AM CDT Preop testing US ARTERIAL DOPPLER UPPER EXTREMITY BILATERAL Routine 05/13/2024 2:39 PM CDT 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, initial encounter US HEMODIALYSIS ACCESS Routine 05/13/2024 2:39 PM CDT Arteriovenous fistula, acquired CARDIOLOGY DOCUMENT SCAN Routine 04/01/2024 2:02 PM MASTER COOK REVISION ARTERIOVENOUS FISTULA - ARM 03/08/2024 12:21 PM MASTER COOK End stage renal disease (HCC) EGFR Routine 03/08/2024 10:14 AM MASTER COOK BASIC METABOLIC PANEL Routine 03/08/2024 10:14 AM MASTER COOK HEPATITIS PANEL, ACUTE STAT 01/31/2024 10:35 AM MASTER COOK from Last 3 Months or Most Recently Relevant to Health Maintenance Results * (ABNORMAL) Differential, auto (05/23/2024 11:56 AM CDT) Neutrophil abs 4.47 1.50 - 6.50 K/cumm Imm gran abs 0.04 0.00 - 0.10 K/cumm [facility] Lymphocyte abs 2.01 0.80 - 3.30 K/cumm [facility] Monocyte abs 0.91(H) 0.20 - 0.80 K/cumm [facility] Eosinophil abs 0.20 0.00 - 0.50 K/cumm [facility] Basophil abs 0.03 0.00 - 0.10 K/cumm [facility] Neutrophil pct 58.4 % [facility] Comment: Interpretive Data Percent cell count reference ranges are not reported, since discordance with absolute values may lead to misinterpretation of CBC data. Current Interpretive Data was last revised on 2017. Imm gran pct 0.5 % [facility] Comment: Interpretive Data Percent cell count reference ranges are not reported, since discordance with absolute values may lead to misinterpretation of CBC data. Current Interpretive Data was last revised on 2017. Lymphocyte pct 26.2 % [facility] Comment: Interpretive Data Percent cell count reference ranges are not reported, since discordance with absolute values may lead to misinterpretation of CBC data. Current Interpretive Data was last revised on 2017. Monocyte pct 11.9 % [facility] Comment: Interpretive Data Percent cell count reference ranges are not reported, since discordance with absolute values may lead to misinterpretation of CBC data. Current Interpretive Data was last revised on 2017. Eosinophil pct 2.6 % [facility] Comment: Interpretive Data Percent cell count reference ranges are not reported, since discordance with absolute values may lead to misinterpretation of CBC data. Current Interpretive Data was last revised on 2017. Basophil pct 0.4 % [facility] Comment: Interpretive Data Percent cell count reference ranges are not reported, since discordance with absolute values may lead to misinterpretation of CBC data. Current Interpretive Data was last revised on 2017. Blood 05/23/2024 11:5 6 AM CDT 05/23/2024 11:56 AM CDT us Kita Velazquez NP LAB BLOOD ORDERABLES Fi nal Result [facility] [address] Department [place] [address] * (ABNORMAL) CBC with auto differential (05/23/2024 11:56 AM CDT) WBC 7.66 3.80 - 9.90 K/cumm Hgb 9.9(L) 11.9 - 15.5 g/dL [facility] Hct 33.2(L) 35.6 - 45.5 % [facility] Plt 293 150 - 400 K/cumm [facility] MPV 10.4 9.1 - 12.3 fL [facility] RBC 3.71(L) 3.90 - 5.20 M/cumm [facility] MCV 89.5 81.3 - 96.4 fL [facility] MCH 26.7(L) 27.1 - 33.3 pg [facility] MCHC 29.8(L) 32.3 - 35.7 g/dL [facility] RDW CV 17.0(H) 11.1 - 14.9 % [facility] RDW SD 55.0(H) 35.7 - 48.1 fL [facility] NRBC abs 0.00 0.00 - 0.01 K/cumm [facility] Blood 05/23/2024 11:5 6 AM CDT 05/23/2024 11:56 AM CDT Kita Castillo Marcus [employer] OPERATOR LAB BLOOD ORDERABLES Fi nal Result Performing Organization Address [facility] Co de Phone Number [facility] [address] [facility] [place] [address] * aPTT (05/23/2024 11:56 AM CDT) aPTT 38 28 - 38 sec Comment: Interpretive Data Heparin therapeutic range: 66.0 - 100.0 seconds. Range based on correlation with therapeutic heparin activity range of 0.3 - 0.7 Units/mL. Current interpretive data was last revised on 2022. Blood 05/23/2024 11:5 6 AM CDT 05/23/2024 11:56 AM CDT Kita Anna Velazquez [employer] OPERATOR LAB BLOOD ORDERABLES Fi nal Result Performing Organization Address [facility] Co de Phone Number [facility] [address] [facility] [place] [address] * Protime-INR (05/23/2024 11:56 AM CDT) PT 11.1 9.7 - 13.0 sec INR 1.03 0.90 - 1.20 [facility] Comment: Interpretive data Oral anticoagulant therapeutic ranges: Venous thromboembolism prophylaxis or treatment: 2.0-3.0 CARDIOLOGY Standard range: 2.0-3.0 High-intensity range: 2.5-3.5 Refer to indication-specific guidelines for appropriate target ranges for prosthetic heart valve replacement. Current interpretive data was last revised on 2019. Blood 05/23/2024 11:5 6 AM CDT 05/23/2024 11:56 AM CDT us Kita Castillo Marcus [employer] OPERATOR LAB BLOOD ORDERABLES Fi nal Result [facility] [address] Department [place] [address] * US Hemodialysis Access (05/13/2024 2:39 PM CDT) Anatomical Region Laterality Modality Vascular N/A Ultrasound 05/13/2024 1:37 PM CDT Narrative 05/13/2024 3:15 PM CDT [facility] - Department of Vascular Surgery, Vascular Laboratory [address] [place] [id number] Dialysis Access Fistula/Graft Duplex Report Patient Name: MOY TOBIN : 1955 (68y 9m) Gender: F Study Date: 05/13/2024 01:37:10 PM Assignment Desk Assistant: GRAHAM Location: [facility] Order Provider: ROXANNA LINDER Quality: Adequate Ref Provider: ROXANNA LINDER PROCEDURES: Vascular Report: Left Upper Extremity Arterial-Venous Fistula Duplex Exam. Brachial artery to Cephalic vein. INDICATIONS: Dx: Arteriovenous fistula, acquired [I77.0 (ICD-10-CM)]. MEASUREMENTS: Diameter/Depth Value Units Velocities Value Units Lt Anastomosis Diameter 0.59 cm Inflow Artery Volume Flow 381 cc/min Lt Anastomosis Depth 0.52 cm Lt Inflow Artery 68.00 cm/s Lt Outflow Distal Arm Diameter 0.61 cm Lt Anastomosis 267.00 cm/s Lt Outflow Distal Arm Depth 0.30 cm Lt Outflow Vein Dist Arm 586.00 cm/s Lt Outflow Mid Arm Diameter 0.56 cm Lt Outflow Vein Mid Arm 63.80 cm/s Lt Outflow Mid Arm Depth 0.55 cm Lt Outflow Vein Prox Arm 303.00 cm/s Lt Outflow Proximal Arm Diameter 0.26 cm Lt Deep Vein Reeders 91.90 cm/s Lt Outflow Proximal Arm Depth 0.94 cm Lt Axillary Vein 24.10 cm/s Lt Deep Vein Reeders Diameter 0.35 cm Lt Subclavian Vein 123.00 cm/s Lt Deep Vein Reeders Depth 2.15 cm Lt Outflow Vein (Graft) Volume Flow Average 330 cc/min Lt Inflow Artery Diameter 0.79 cm Diameter/Depth Value Units Velocities Value Units FINDINGS: Performing Assignment Desk Assistant: Violet Ruiz RVT, RDMS. [place] Arterial Inflow Normal: No evidence of arterial stenosis in the inflow vessel. Anastomosis: Systolic velocity ratio is 3.9, which is consistent with >50% narrowing at the anastomosis. This may be due to vessel diameter mismatch. Venous Outflow: There is a hemodynamically significant narrowing at the distal arm. Systolic velocity ratio is 4.68, which is consistent with >50% narrowing in the venous outflow vessel. At stenotic region, there is an echogenic, linear foci- may be consistent with frozen valve. There is a hemodynamically significant narrowing at the proximal arm. Systolic velocity ratio is 3.56, which is consistent with >50% narrowing in the venous outflow vessel- may be in region of previous surgical site. The subclavian vein is patent. The axillary vein is patent. Fistula/Graft Findings: Antegrade flow in radial and ulnar artery at LT wrist. Volume Flow: Three volume flow measurements are performed at the outflow vein; an averaged volume flow is 330 cc/min. Inflow artery volume flow is also obtained, measuring 381 cc/min. CONCLUSIONS: 1. Patent hemodialysis fistula with a >50% narrowing at the multiple levels as listed above. 2. Three volume flow measurements are performed at the outflow vein; an averaged volume flow is 330 cc/min. Inflow artery volume flow is also obtained, measuring 381 cc/min. HISTORY: cardiac issues, HTN, HLD, DM2, ESRD 01-30-24 creation LT brachiocephalic AVF, ligation LT radiocephalic AVF 03-08-24 revision LT brachiocephalic AVF by superficialization. PREVIOUS STUDIES: Previous study on 02-12-24 [facility] US revealed WNL AVF. Proximal VF 912 cc/min, mid VF 1294 cc/min, distal VF 2450 cc/min. DISCLAIMER: The study images and the final report will be retained in the patient chart by the Vascular Laboratory for the legally required time period. This chart constitutes the legal record of any testing performed. ATTESTATION: I have reviewed and interpreted the pertinent images and measurements of this study. I attest to the conclusions in the final report that is provided above. Electronically Signed By: Roxanna Bhardwaj 05/13/2024 2:33:25 PM CDT Procedure Note Roxanna Linder MD - 05/13/2024 [facility] - Department of Vascular Surgery,Vascular Laboratory [address] [place] [address] Dialysis Access Fistula/Graft Duplex Report Patient Name: MOY TOBIN : 1955 (68y 9m) Gender: F Study Date: 05/13/2024 01:37:10 PM Assignment Desk Assistant: GRAHAM Location: [facility] Order Provider: ROXANNA LINDER Quality: Adequate Ref Provider: ROXANNA LINDER PROCEDURES: Vascular Report: Left Upper Extremity Arterial-Venous Fistula Duplex Exam.Brachial artery to Cephalic vein. INDICATIONS: Dx: Arteriovenous fistula, acquired [I77.0 (ICD-10-CM)]. MEASUREMENTS: Diameter/Depth Value Units Velocities Value Units Lt Anastomosis Diameter 0.59 cm Inflow Artery Volume Flow 381 cc/min Lt Anastomosis Depth 0.52 cm Lt Inflow Artery 68.00 cm/s Lt Outflow Distal Arm Diameter 0.61 cm Lt Anastomosis 267.00 cm/s Lt Outflow Distal Arm Depth 0.30 cm Lt Outflow Vein Dist Arm 586.00 cm/s Lt Outflow Mid Arm Diameter 0.56 cm Lt Outflow Vein Mid Arm 63.80 cm/s Lt Outflow Mid Arm Depth 0.55 cm Lt Outflow Vein Prox Arm 303.00 cm/s Lt Outflow Proximal Arm Diameter 0.26 cm Lt Deep Vein Reeders 91.90cm/s Lt Outflow Proximal Arm Depth 0.94 cm Lt Axillary Vein 24.10 cm/s Lt Deep Vein Reeders Diameter 0.35 cm Lt Subclavian Vein 123.00 cm/s Lt Deep Vein Reeders Depth 2.15 cm Lt Outflow Vein (Graft) Volume FlowAverage 330 cc/min Lt Inflow Artery Diameter 0.79 cm Diameter/Depth Value Units Velocities Value Units FINDINGS: Performing Assignment Desk Assistant: Violet Ruiz RVT, RDMS. [place] Arterial Inflow Normal: No evidence of arterial stenosis in theinflow vessel. Anastomosis: Systolic velocity ratio is 3.9, which is consistent with >50%narrowing at the anastomosis. This may be due to vessel diameter mismatch. Venous Outflow: There is a hemodynamically significant narrowing at thedistal arm. Systolic velocity ratio is 4.68, which is consistent with >50% narrowingin the venous outflow vessel. At stenotic region, there is an echogenic, linear foci-may be consistent with frozen valve. There is a hemodynamically significant narrowing at the proximal arm.Systolic velocity ratio is 3.56, which is consistent with >50% narrowing in the venousoutflow vessel- may be in region of previous surgical site. The subclavian vein is patent. Theaxillary vein is patent. Fistula/Graft Findings: Antegrade flow in radial and ulnar artery at wrist. Volume Flow: Three volume flow measurements are performed at the outflowvein; an averaged volume flow is 330 cc/min. Inflow artery volume flow is also obtained, measuring 381 cc/min. CONCLUSIONS: 1. Patent hemodialysis fistula with a >50% narrowing at the multiplelevels as listed above. 2. Three volume flow measurements are performed at the outflow vein; anaveraged volume flow is 330 cc/min. Inflow artery volume flow is also obtained, measuring 381 cc/min. HISTORY: cardiac issues, HTN, HLD, DM2, ESRD 01-30-24 creation LT brachiocephalic AVF, ligation LT radiocephalic AVF 03-08-24 revision LT brachiocephalic AVF by superficialization. PREVIOUS STUDIES: Previous study on 02-12-24 MoBap US revealed WNL AVF. Proximal VF 912cc/min, mid VF 1294 cc/min, distal VF 2450 cc/min. DISCLAIMER: The study images and the final report will be retained in the patientchart by the Vascular Laboratory for the legally required time period. This chartconstitutes the legal record of any testing performed. ATTESTATION: I have reviewed and interpreted the pertinent images and measurements ofthis study. I attest to the conclusions in the final report that is provided above. Electronically Signed By: Roxanna Bhardwaj 05/13/2024 2:33:25 PM CDT us Roxanna Linder MD IMG US PROCEDURES Final Res ult * US Arterial Doppler Upper Extremity Bilateral (05/13/2024 2:39 PM CDT) Anatomical Region Laterality Modality Vascular Bilateral Ultrasound 05/13/2024 1:51 PM CDT Narrative 05/13/2024 3:15 PM CDT [facility] - Department of Vascular Surgery, Vascular Laboratory [address] [place] [address] Upper Extremity Arterial Doppler Ultrasound Report Patient Name: MOY TOBIN : 1955 Study Date: 05/13/2024 1:51:00 PM Gender: F Tech: Violet Ruiz Rdms, kevon Location: [facility] Provider: ROXANNA LINDER Quality: Adequate Order Provider: ROXANNA LINDER PROCEDURES: Vascular Report: Bilateral upper extremity arterial Doppler exam. INDICATIONS: End stage renal disease Dx: 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, initial encounter [T82.898A (ICD-10-CM)]. MEASUREMENTS: Right Value Units Left Value Units Rt Brachial Pressure 152 mmHg Lt Brachial Pressure AVF mmHg Rt Radial Pressure 164 mmHg Lt Radial Pressure AVF mmHg Rt Ulnar Pressure 154 mmHg Lt Ulnar Pressure AVF mmHg Rt Radial A/Arm Index 1.08 Lt Radial A/Arm Index AVF Rt Ulnar A/Arm Index 1.01 Lt Ulnar A/Arm Index AVF Rt 2nd Digit Pressure 104 mmHg Lt Digit 2/Arm Index 0.84 Rt 4th Digit Pressure 96 mmHg Lt Digit 4/Arm Index 0.91 Rt Digit 2/Arm Index 0.68 Lt 2nd Digit Pressure w/o compression 129 mmHg Rt Digit 4/Arm Index 0.63 Lt 2nd Digit Pressure with compression 138 mmHg Lt 4th Digit Pressure w/o compression 114 mmHg Lt 4th Digit Pressure with compression 117 mmHg Right Value Units Left Value Units FINDINGS: Performing Assignment Desk Assistant: Violet Ruiz RVT, RDMS. Right Brachial Artery: The brachial artery is multiphasic. Right Radial Artery: The radial artery is multiphasic. Right Ulnar Artery: The ulnar artery is multiphasic. Left Axillary Artery: The axillary artery is multiphasic. Left Brachial Artery: The brachial artery is consistent with AVF. Left Radial Artery: The radial artery is multiphasic. Left Ulnar Artery: The ulnar artery is audibly multiphasic, but faint. Heavy calcifications seen on duplex. Digits: Normal right digit pressure and waveform. Normal left digit pressure and waveform. LUE fistula is evaluated for a steal syndrome. The LEFT second and fourth digit waveforms and pressures are assessed with and without fistula compression. The measurements are indicative of no obvious steal syndrome. Comments: RT axillary waveform deferred due to port placement and associated dressing. LUE pressures deferred due to multiple AVF interventions. CONCLUSIONS: 1. Right Forearm/Arm Index is consistent with normal findings. For reference, normal NIGEL is > 0.9 - 1.3. 2. Left Forearm/Arm Index is deferred due to multiple AVF interventions. Waveforms only obtained. 3. Right Digit Arm Index is normal, > or = 0.6. 4. Normal left digit pressure and waveform. LUE fistula is evaluated for a steal syndrome. The LEFT second and fourth digit waveforms and pressures are assessed with and without fistula compression. The measurements are indicative of no obvious steal syndrome. HISTORY: cardiac issues, HTN, HLD, DM2, ESRD 01-30-24 creation LT brachiocephalic AVF, ligation LT radiocephalic AVF 03-08-24 revision LT brachiocephalic AVF by superficialization. PREVIOUS STUDIES: No previous studies for comparison. DISCLAIMER: The study images and the final report will be retained in the patient chart by the Vascular Laboratory for the legally required time period. This chart constitutes the legal record of any testing performed. ATTESTATION: I have reviewed and interpreted the pertinent images and measurements of this study. I attest to the conclusions in the final report that is provided above. Electronically Signed By: Roxanna Bhardwaj 05/13/2024 2:40:08 PM CDT Procedure Note Roxanna Linder MD - 05/13/2024 [employer] [facility] [employer] - Department of Vascular Surgery,Vascular Laboratory [address] [place] [address] Upper Extremity Arterial Doppler Ultrasound Report Patient Name: MOY TOBIN : 1955 Study Date: 05/13/2024 1:51:00 PM Gender: F Tech: Violet Ruiz Rdms, rvt Location: [facility] Provider: ROXANNA LINDER Quality: Adequate Order Provider: ROXANNA LINDER PROCEDURES: Vascular Report: Bilateral upper extremity arterial Doppler exam. INDICATIONS: End stage renal disease Dx: 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, initial encounter[T82.898A (ICD-10-CM)]. MEASUREMENTS: Right Value Units Left Value Units Rt Brachial Pressure 152 mmHg Lt Brachial Pressure AVF mmHg Rt Radial Pressure 164 mmHg Lt Radial Pressure AVF mmHg Rt Ulnar Pressure 154 mmHg Lt Ulnar Pressure AVF mmHg Rt Radial A/Arm Index 1.08 Lt Radial A/Arm Index AVF Rt Ulnar A/Arm Index 1.01 Lt Ulnar A/Arm Index AVF Rt 2nd Digit Pressure 104 mmHg Lt Digit 2/Arm Index 0.84 Rt 4th Digit Pressure 96 mmHg Lt Digit 4/Arm Index 0.91 Rt Digit 2/Arm Index 0.68 Lt 2nd Digit Pressure w/o compression 129mmHg Rt Digit 4/Arm Index 0.63 Lt 2nd Digit Pressure with compression 138mmHg Lt 4th Digit Pressure w/o compression 114 mmHg Lt 4th Digit Pressure with compression 117 mmHg Right Value Units Left Value Units FINDINGS: Performing Assignment Desk Assistant: Violet Ruiz RVT, RDMS. Right Brachial Artery: The brachial artery is multiphasic. Right Radial Artery: The radial artery is multiphasic. Right Ulnar Artery: The ulnar artery is multiphasic. Left Axillary Artery: The axillary artery is multiphasic. Left Brachial Artery: The brachial artery is consistent with AVF. Left Radial Artery: The radial artery is multiphasic. Left Ulnar Artery: The ulnar artery is audibly multiphasic, but faint. Heavy calcificationsseen on duplex. Digits: Normal right digit pressure and waveform. Normal left digit pressure andwaveform. LUE fistula is evaluated for a steal syndrome. The LEFT second and fourthdigit waveforms and pressures are assessed with and without fistula compression. Themeasurements are indicative of no obvious steal syndrome. Comments: RT axillary waveform deferred due to port placement and associateddressing. LUE pressures deferred due to multiple AVF interventions. CONCLUSIONS: 1. Right Forearm/Arm Index is consistent with normal findings. Forreference, normal NIGEL is > 0.9 - 1.3. 2. Left Forearm/Arm Index is deferred due to multiple AVF interventions.Waveforms only obtained. 3. Right Digit Arm Index is normal, > or = 0.6. 4. Normal left digit pressure and waveform. LUE fistula is evaluated for asteal syndrome. The LEFT second and fourth digit waveforms and pressures areassessed with and without fistula compression. The measurements are indicative of no obvioussteal syndrome. HISTORY: cardiac issues, HTN, HLD, DM2, ESRD 01-30-24 creation LT brachiocephalic AVF, ligation LT radiocephalic AVF 03-08-24 revision LT brachiocephalic AVF by superficialization. PREVIOUS STUDIES: No previous studies for comparison. DISCLAIMER: The study images and the final report will be retained in the patientchart by the Vascular Laboratory for the legally required time period. This chartconstitutes the legal record of any testing performed. ATTESTATION: I have reviewed and interpreted the pertinent images and measurements ofthis study. I attest to the conclusions in the final report that is provided above. Electronically Signed By: Roxanna Bhardwaj 05/13/2024 2:40:08 PM CDT Roxanna Linder MD IMG US PROCEDURES Final Res ult * Cardiology Document Scan (04/01/2024 2:02 PM MASTER COOK) Anatomical Region Laterality Modality Other Miles Abraham MD CV CARDIAC SERVICES PROCEDURES F inal Result * (ABNORMAL) eGFR (03/08/2024 10:14 AM MASTER COOK) eGFR 11(L) >=60 mL/min/1. 73 m2 Comment: Interpretive Data Reference Interval Normal >/= 90 mL/min/1.73m2 Mildly decreased* 60 - 89 mL/min/1.73m2 Mildly to moderately decreased 45 - 59 mL/min/1.73m2 Moderately to severely decreased 30 - 44 mL/min/1.73m2 Severely decreased 15 - 29 mL/min/1.73m2 Kidney Failure < 15 mL/min/1.73m2 *Relative to young adult level Estimated glomerular filtration rate is determined by the 2020 CKD-EPI equation recommended by the National Kidney Foundation (A Unifying Approach to GFR Estimation: Recommendations of the NKF-ASK Task Force on Reassessing the Inclusion of Race in Diagnosing Kidney Disease, JASN 2021). The CKD-EPI equation should not be used for patients with unstable renal function and has not been validated in children and those over 70. Current interpretive data was last reviewed 2020. Blood 03/08/2024 10:1 4 AM MASTER COOK 03/08/2024 10:15 AM MASTER COOK Roxanna Linder MD LAB BLOOD ORDERABLES Final Result [facility] [address] Department [place] [address] * (ABNORMAL) Basic metabolic panel (03/08/2024 10:14 AM MASTER COOK) Sodium 137 135 - 145 mmol/L Potassium, pl 3.6 3.3 - 4.9 mmol/L [facility] Chloride 98 97 - 110 mmol/L [facility] CO2 23 22 - 32 mmol/L [facility] Anion gap 16(H) 2 - 15 mmol/L [facility] BUN 17 6 - 25 mg/dL [facility] Creatinine 4.19(H) 0.60 - 1.10 mg/dL [facility] Glucose 91 70 - 199 mg/dL [facility] Comment: Interpretive Data Fasting glucose >/= 126 mg/dl is diagnostic for diabetes. Fasting is defined as no caloric intake [...] 2022. Calcium 9.7 8.5 - 10.3 mg/dL [facility] Blood 03/08/2024 10:1 4 AM MASTER COOK 03/08/2024 10:15 AM MASTER COOK Roxanna Linder MD LAB BLOOD ORDERABLES Final Result [facility] [address] Department [place] [address] * Hepatitis panel, acute Blood (01/31/2024 10:35 AM MASTER COOK) Hep A IgM Nonreactive Nonreactive Comment: Interpretive Data: If Hep A IgM Ab is reported as Equivocal, a new sample should be drawn in two weeks for testing. Current interpretive data was last revised on 19. Hep B core IgM Nonreactive Nonreactive [facility] Comment: Interpretive Data If HepB Core IgM Ab is reported as Equivocal, a new sample should be drawn in two weeks for testing. Current interpretive data was last revised on 19. Hep C Ab Nonreactive Nonreactive [facility] Comment: Interpretive Data Nonreactive: Antibodies to HCV not detected. Does NOT exclude the possibility of recent exposure to HCV. Equivocal: Equivocal for HCV antibodies. Supplemental molecular testing will be automatically performed to determine infection status in accordance with current CDC screening recommendations. Reactive: Positive for HCV antibodies. This may represent current or past HCV infection. Supplemental molecular testing will be automatically performed to determine current infection status in accordance with current CDC screening recommendations. Interpretive data was last revised on 2019. HepBsAg Nonreactive Nonreactive [facility] Blood 01/31/2024 10:3 5 AM MASTER COOK 01/31/2024 10:36 AM MASTER COOK us Connie Greenberg MD LAB MICROBIOLOGY - GENE RAL ORDERABLES Final Result [facility] [address] Department [place] [address] from Last 3 Months or Most Recently Relevant to Health Maintenance Insurance [facility] MEDICARE SUPPLEMENT MEDICARE [facility] MEDICARE SUPPLEMENT MEDICARE [facility] MEDICARE SUPPLEMENT MEDICARE [facility] MEDICARE SUPPLEMENT Advance Directives For more information, please contact: [phone] * Full Code (Latest Code Status on File) Date Activated Date Inactivated Comments 01/30/2024 8:33 PM 02/01/2024 11:09 PM Care Teams Mill Worker Relationship Specialty Start Date End Date Federico Branham Jr., MD [address] [place] [address] PCP - General Family Medicine 01/30/24 Roxanna Linder MD [address] [facility] [address] [place] [address] Consulting Physician Surgery 01/31/24 Jc Moreau MD [address] [place], [place] [id number] Referring Physician Nephrology 03/07/24 Carmen Chavez, RN [address] [facility] [address] [place] [address] Fashion Editor 03/11/24 Bahman Ann MD [address] [facility] [address] [place] [address] Cardiology 04/11/24
--- OUTSIDE RECORDS SUMMARY | 2024-05-27 13:53 | XMS_ITS | Encounter Summary ---
Author Organization [facility] Address [address] [place] [address] Care Team Providers Care Baggage Handling Supervisor Name Role Phone Azul Godoyviji Go Unavailable Unavailable Carrol Pitts MD, Federico Howe Primary Care Provider Farrukh Solorzano MD Unavailable -[phone] Keya Reina MD Unavailable Unavailable Seven LakesOsmar marie MD Unavailable Francisco Tobin MD Unavailable Jc Moreau MD Unavailable [phone] Ryland Alves MD Unavailable Lorene Ly MD Unavailable [facility], [facility] Kidney Unavailable Bahman Ann MD Unavailable [phone] Carrol Pitts MD, Federico Howe Unavailable Celi Carter LCSW Unavailable Carrol Pitts MD, Federico Howe Unavailable Ryland Alves MD Unavailable Piotr Alvarez MD Unavailable Carrol Pitts MD, Federico Howe Unavailable Julee Kang MD Unavailable [phone] Carrol Pitts MD, Joseph Theodore Unavailable Bahman Ann MD Unavailable Oralia Boone RN Unavailable [phone] Francesco Hong MD Unavailable Zoey Boyle PROGRAM CLERK-FEED MILL TENDER Unavailable Bahman Ann MD Unavailable Mendy Camacho Unavailable Liss Gooden MD Primary Care Provider [phone] Alycia Holguin RN Unavailable Kylah Solares Unavailable Carrol Pitts MD, Joseph Theodore Unavailable Carrol Pitts MD, Joseph Theodore Unavailable Carrol Pitts MD, Joseph Theodore Primary Care Provider Octavia Parry PROGRAM CLERK-FEED MILL TENDER Unavailable Encounter Details Date Type Department Care Team (Late st Contact Info) Description 02/05/2020 [facility] Outpatient Visit [facility] [address] [place] [address] Millie Carnes PROGRAM CLERK-FEED MILL TENDER [address] [place] [address] Social History Tobacco Use Types Packs/Day Years Used Date Smoking Tobacco: Never Smokeless Tobacco: Never Alcohol Use Standard Drinks/Week Comments No 0 (1 standard drink = 0.6 oz pur e alcohol) Sex and Gender Information Value Date Recorded Sex Assigned at Female 02/14/2020 1:06 PM MANAGER SCIENCE Gender Identity Female 02/14/2020 1:05 PM MANAGER SCIENCE Sexual Orientation Straight 02/14/2020 1: 05 PM MANAGER SCIENCE documented as of this encounter Functional Status [...] Description 06/06/2024 8:45 AM CDT Office Visit [facility] - Ophthalmology [address] [place] [phone] Jaylon Marks MD [address] [place] [address] [place] [address] 07/16/2024 2:15 PM CDT Office Visit [facility] - Orthopedics [address] [place] [phone] Ryland Fuentes MD [address] [place] [address] 07/30/2024 10:20 AM CDT Office Visit [facility] - Family Medicine [id number] [place] [address] [place] [address] [place] [address] [phone] 08/06/2024 10:20 AM CDT Office Visit [facility] - Podiatry [address] [place] [address] [address] [place] [address] Devika Rolon [facility] [address] [facility] [address] [place] [address] 08/16/2024 1:15 PM CDT Office Visit [facility] [address] [place] [address] [address] [place] [address] Federico Branham Jr., MD [address] [place] [address] Bahman Ann MD [facility]7 [facility] [address] [place] [phone] 11/26/2024 9:30 AM CDT Office Visit [facility] - Neurology [address] [place] [address], [place] [phone] Familia Duncan MD [address] [place] [address] [address] [place] [phone] 01/10/2025 10:00 AM MANAGER SCIENCE Office Visit [facility] - GI [address] [place] [address], [place] [phone] Thais Euceda PA-C [facility] DEPT [place] [phone] documented as of this encounter Goals Goal Patient Goal Type Associated Problems Recent Progress Patient-Stated? Author Medication Management General On track( 024 9:50 AM MANAGER SCIENCE) Andra Fonseca, JAMESON Note: Expected end date: [...] Under Investigation 02/09/2023 02/09/2023 02/09/2023 2:41 PM MANAGER SCIENCE COVID-19 Under Investigation 10/14/2023 10/14/2023 10/14/2023 11:24 AM CDT COVID-19 Under Investigation 03/16/2024 03/16/2024 03/16/2024 2:43 PM MANAGER SCIENCE COVID-19 Under Investigation 03/16/2024 03/16/2024 03/16/2024 3:58 PM MANAGER SCIENCE Influenza A or B 03/16/2024 03/16/2024 03/23/2024 4:33 AM MANAGER SCIENCE documented as of this encounter Care Teams Baggage Handling Supervisor Relationship Specialty Start Date End Date Federico Branham Jr., MD PCP - General Family Medicine 08/01/18 09/24/23 Bahman Ann MD [address] [facility] 200 [place] [address] PCP - Attributed-MSSP 01/21/20 0 Federico Branham Jr., MD [address] [place] [address] PCP - Attributed-MSSP 02/21/20 10/20/21 Federico Branham Jr., MD [address] [place] [address] PCP - Strive ACO 09/27/21 01/09/22 [place] [address] [phone] PCP - Attributed-MSSP 10/21/21 2 Piotr Alvarez [place] [facility] [place] [address] PCP - Strive ACO 01/10/22 03/28/22 Federico Branham Jr., MD [address] [place] [address] PCP - Attributed-MSSP 01/20/22 05/21/23 Julee Kang MD [address] [address] PCP - Strive ACO 03/29/22 05/20/22 Federico Branham Jr., MD [address] [place] [address] PCP - Strive ACO 05/21/22 08/19/22 Bahman Ann MD [facility]7 [facility] [address] [place] [phone] PCP - Strive ACO 08/20/22 12/20/22 Francesco Hong MD [address] [place] [address] PCP - Strive ACO 12/21/22 08/20/23 Zoey Boyle, PROGRAM CLERK-FEED MILL TENDER [address] [place] [address] PCP - Attributed-MSSP 05/22/23 08/20/23 Bahman Ann MD [address] [phone] PCP - Strive ACO 08/21/23 10/21/23 [place] [address] [address] PCP - General Family Medicine 09/25/23 12/14/23 Federico Branham Jr., MD [address] [place] [address] PCP - Strive ACO 10/22/23 Federico Branham Jr., MD [address] [place] [address] PCP - Attributed-MSSP 08/21/23 11/20/23 Federico Branham Jr., MD [address] [place] [address] PCP - General Family Medicine 12/15/23 Octavia Parry, PROGRAM CLERK-FEED MILL TENDER [address] [place] [address] PCP - Attributed-MSSP 11/21/23 Eden Godoy Dialysis Liaison 07/01/16 04/10/23 Farrukh Solorzano MD [address] [facility] [address] [place] [address] -x7 (Work) Cardiovascular Disease 08/01/18 Keya Reina MD [address] [facility] [address] [place] [address] Gastroenterology 08/01/18 Osmar Zambrano MD [address] [place] [address] [address] [place] [address] Otolaryngology 08/01/18 Francisco Tobin MD [address] [address] Pulmonary Disease 08/01/18 Jc Moreau MD [address] [facility] [address] [place], [place] [phone] Nephrology 08/01/18 [place] [address] [facility] [address] [place] [address] Commercial Counsel Cardiac Electrophysiology 09/03/18 [place] [address] [facility] [address] [place] [address] Cardiology 04/25/19 Care, [facility] Kidney Singing TeacherProduction Sorter 08/29/19 Celi Carter, [facility] Behavioral Health Therapist Care Management 05/13/20 05/19/20 Oralia Boone, JAMESON Singing TeacherProduction Sorter 12/27/22 12/27/22 Mendy Camacho [address] [facility] [address] [place] [phone] Care Coordination Specialist Care Management 09/21/23 09/21/23 Alycia Holguin RN [address] [facility] [address] Singing TeacherProduction Sorter 10/20/23 10/20/23 Kylah Solares Care Coordination Specialist Care Management 10/25/23 12/01/23 documented as of this encounter
--- OUTSIDE RECORDS SUMMARY | 2024-05-27 13:53 | XMS_ITS ---
Author Organization [facility] [place] [address] Address [address] [place] [address] Care Team Providers Care Home Manager Name Role Phone Carrol Pitts MD, Federico Howe Primary Care Provider Roxanna Linder MD Unavailable Jc Moreau MD Unavailable [phone] Carmen Chavez RN Unavailable Bahman Ann MD Unavailable Dialysis Access Sites Type Status Location Placement [...] CARDIOLOGY DOCUMENT SCAN Routine 04/01/2024 2:02 PM SALES ASSOCIATE REVISION ARTERIOVENOUS FISTULA - ARM 03/08/2024 12:21 PM SALES ASSOCIATE End stage renal disease (HCC) EGFR Routine 03/08/2024 10:14 AM SALES ASSOCIATE BASIC METABOLIC PANEL Routine 03/08/2024 10:14 AM SALES ASSOCIATE HEPATITIS PANEL, ACUTE STAT 01/31/2024 10:35 AM SALES ASSOCIATE from Last 3 Months or Most Recently Relevant to Health Maintenance Allergies Active Allergy Reactions Criticality Noted Date [...] mouth 3 (three) times a week Mon, Mon, Mon- 8 Active levalbuterol (XOPENEX HFA) 45 mcg/actuation [...] mouth 3 (three) times a week Mon, Mon, Mon Active digoxin (LANOXIN) 125 mcg (0.125 [...] predniSONE (DELTASONE) 10 mg tablet 4 05/24/19 Discontinu ed(Error) ibuprofen 200 mg tab/cap Take [...] 05/10/2021 Dr. 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 Overview (01/08/2024): 05/10/2021 [...] obstructive pulmonary di sease 02/21/2000 Overview (01/08/2024): Custom Designer Dr Tobin Other cardiomyopathies 02/21/2000 Overview (01/08/2024): [...] vative Free, Intramuscular 11/19/2015 Influenza, Unspecified 11/22/2023,2022,11/21/2022,11/07,12/24/2018,11/15/2017,11/09/2016 ,11/19/2014,10/30/2013,11/10/2012,09/0 08/2011 Moderna SARS-CoV-2 Monovalen t Vaccination (12+ YRS) [...] Tobacco: Never Tobacco Cessation:Counseling Given: Not Answered [facility] [employer] Answer Date Recorded In the past 12 months has th e [employer], gas, oil, or water [employer] threatened to shut off services in your [...] How often do you attend chur or synagogue services? More than 4 times per year 01/31/2024 Do you belong to any clubs o r organizations such as confucianist groups, unions, fraternal or athletic groups, or [...] any time in the past 12 m [facility], were you homeless or living in a skilled nursing (including now)? No 01/31/2024 Personal Safety Answer Date Recorded Have you ever been in or are you currently in a harmful physical or emotional relationship or is someone making you feel afraid or unsafe? Denies 03/08/2024 Comments No Sex and Gender Information Value Date Recorded Sex Assigned at Not on file Legal Sex Female 1:25 AM SALES ASSOCIATE Gender Identity Female 04/11/2024 8:21 PM SALES ASSOCIATE Sexual Orientation Straight 04/11/2024 8: 21 PM SALES ASSOCIATE Last Filed Vital Signs Vital Sign Reading Time Taken Comments Blood Pressure 129/78 05/23/2024 10:17 AM CDT Pulse 77 05/23/2024 10:17 AM CDT Temperature 38 C (100.4 F) 05/13/2024 2:11 PM CDT Respiratory Rate 16 03/08/2024 2:50 PM SALES ASSOCIATE Oxygen Saturation 96% 05/23/2024 10:17 AM CDT Inhaled Oxygen Concentration - - Weight 70.1 kg (154 lb 8.7 oz) 05/23/2024 10:11 AM CDT Height 157.5 cm (5' 2 ) 05/23/2024 10:11 AM CDT Body Mass Index 28.27 05/23/2024 10:11 AM CDT Results * (ABNORMAL) Differential, auto (05/23/2024 11:56 AM CDT) Pathologist [facility] Neutrophil abs 4.47 1.50 - 6.50 K/cumm Imm gran abs 0.04 0.00 - 0.10 K/cumm [facility] Lymphocyte abs 2.01 0.80 - 3.30 K/cumm [facility] Monocyte abs 0.91(H) 0.20 - 0.80 K/cumm [facility] Eosinophil abs 0.20 0.00 - 0.50 K/cumm [facility] Basophil abs 0.03 0.00 - 0.10 K/cumm [facility] Neutrophil pct 58.4 % [facility] Comment: Interpretive Data Percent cell count reference ranges are not reported, since discordance with absolute values may lead to misinterpretation of CBC data. Current Interpretive Data was last revised on 2017. Imm gran pct 0.5 % [facility] Comment: Interpretive Data Percent cell count reference ranges are not reported, since discordance with absolute values may lead to misinterpretation of CBC data. Current Interpretive Data was last revised on 2017. Lymphocyte pct 26.2 % [facility] Comment: Interpretive Data Percent cell count reference ranges are not reported, since discordance with absolute values may lead to misinterpretation of CBC data. Current Interpretive Data was last revised on 2017. Monocyte pct 11.9 % [facility] Comment: Interpretive Data Percent cell count reference ranges are not reported, since discordance with absolute values may lead to misinterpretation of CBC data. Current Interpretive Data was last revised on 2017. Eosinophil pct 2.6 % [facility] Comment: Interpretive Data Percent cell count reference ranges are not reported, since discordance with absolute values may lead to misinterpretation of CBC data. Current Interpretive Data was last revised on 2017. Basophil pct 0.4 % [facility] Comment: Interpretive Data Percent cell count reference ranges are not reported, since discordance with absolute values may lead to misinterpretation of CBC data. Current Interpretive Data was last revised on 2017. Blood 05/23/2024 11:5 6 AM CDT 05/23/2024 11:56 AM CDT us Kita Velazquez NP LAB BLOOD ORDERABLES Fi nal Result [facility] [address] Department [place] [address] * (ABNORMAL) CBC with auto differential (05/23/2024 11:56 AM CDT) WBC 7.66 3.80 - 9.90 K/cumm Hgb 9.9(L) 11.9 - 15.5 g/dL [facility] Hct 33.2(L) 35.6 - 45.5 % [facility] Plt 293 150 - 400 K/cumm [facility] MPV 10.4 9.1 - 12.3 fL [facility] RBC 3.71(L) 3.90 - 5.20 M/cumm [facility] MCV 89.5 81.3 - 96.4 fL [facility] MCH 26.7(L) 27.1 - 33.3 pg [facility] MCHC 29.8(L) 32.3 - 35.7 g/dL [facility] RDW CV 17.0(H) 11.1 - 14.9 % [facility] RDW SD 55.0(H) 35.7 - 48.1 fL [facility] NRBC abs 0.00 0.00 - 0.01 K/cumm [facility] Blood 05/23/2024 11:5 6 AM CDT 05/23/2024 11:56 AM CDT Kita Velazquez [employer] LAB BLOOD ORDERABLES Fi nal Result Performing Organization Address [facility] Co de Phone Number [facility] [address] [place] [place] [address] * aPTT (05/23/2024 11:56 AM CDT) aPTT [...] NP LAB BLOOD ORDERABLES Fi nal Result Performing Organization Address City/[facility]/ZIP Co de Phone Number [facility] [address] [facility] [place] [address] * Protime-INR (05/23/2024 11:56 AM CDT) PT 11.1 9.7 - 13.0 sec INR 1.03 0.90 - 1.20 [facility] Comment: Interpretive data Oral anticoagulant therapeutic ranges: Venous thromboembolism prophylaxis or treatment: 2.0-3.0 CARDIOLOGY Standard range: 2.0-3.0 High-intensity range: 2.5-3.5 Refer to indication-specific guidelines for appropriate target ranges for prosthetic heart valve replacement. Current interpretive data was last revised on 2019. Blood 05/23/2024 11:5 6 AM CDT 05/23/2024 11:56 AM CDT us Kita Velazquez NP LAB BLOOD ORDERABLES Fi nal Result [facility] [address] Department [place] [address] * US Hemodialysis Access (05/13/2024 2:39 PM CDT) Anatomical Region Laterality Modality Vascular N/A Ultrasound 05/13/2024 1:37 PM CDT Narrative 05/13/2024 3:15 PM CDT [facility] - Department of Vascular Surgery, Vascular Laboratory [address] [place] [id number] Dialysis Access Fistula/Graft Duplex Report Patient Name: MOY TOBIN : 1955 (68y 9m) Gender: F Study Date: 05/13/2024 01:37:10 PM White Lead Grinder: GRAHAM Location: [facility] [place] Provider: ROXANNA LINDER Quality: Adequate Ref Provider: [...] Arm Diameter 0.26 cm Lt Deep Vein [place] 91.90 cm/s Lt Outflow Proximal Arm Depth 0.94 cm Lt Axillary Vein 24.10 cm/s Lt Deep Vein [place] Diameter 0.35 cm Lt Subclavian Vein 123.00 cm/s Lt Deep Vein [place] Depth 2.15 cm Lt Outflow Vein (Graft) Volume Flow Average 330 cc/min Lt Inflow Artery Diameter 0.79 cm Diameter/Depth Value Units Velocities Value Units FINDINGS: Performing White Lead Grinder: Violet Ruiz RVT, RDMS. [place] Arterial Inflow Normal: No evidence of arterial [...] MoBap US revealed WNL AVF. Proximal VF 912 [...] Procedure Note Roxanna Linder MD - 05/13/2024 [facility] - Department of Vascular Surgery,Vascular Laboratory [address] [place] [id number] Dialysis Access Fistula/Graft Duplex Report Patient Name: MOY TOBIN : 1955 (68y 9m) Gender: F Study Date: 05/13/2024 01:37:10 PM White Lead Grinder: GRAHAM Location: [facility] Order Provider: ROXANNA LINDER Quality: Adequate [...] Arm Diameter 0.26 cm Lt Deep Vein [place] 91.90cm/s Lt Outflow Proximal Arm Depth 0.94 cm Lt Axillary Vein 24.10 cm/s Lt Deep Vein [place] Diameter 0.35 cm Lt Subclavian Vein 123.00 cm/s Lt Deep Vein [place] Depth 2.15 cm Lt Outflow Vein (Graft) Volume FlowAverage 330 cc/min Lt Inflow Artery Diameter 0.79 cm Diameter/Depth Value Units Velocities Value Units FINDINGS: Performing White Lead Grinder: Violet Ruiz RVT, RDMS. [place] Arterial Inflow Normal: No evidence of arterial [...] flow in radial and ulnar artery at LTwrist. Volume Flow: Three volume flow measurements are [...] superficialization. PREVIOUS STUDIES: Previous study on 02-12-[address] [facility] US revealed WNL AVF. Proximal VF 912cc/min, [...] PM CDT Narrative 05/13/2024 3:15 PM CDT [facility] - Department of Vascular Surgery, Vascular Laboratory [address] [place] [id number] Upper Extremity Arterial Doppler Ultrasound Report Patient Name: MOY TOBIN : 1955 Study Date: 05/13/2024 1:51:00 PM Gender: F Tech: Violet Ruiz Rdms, rvt Location: [facility] Provider: ROXANNA LINDER Quality: Adequate Order Provider: [...] Value Units Left Value Units FINDINGS: Performing White Lead Grinder: Violet Gearin RVT, RDMS. Right Brachial Artery: The brachial [...] Procedure Note Roxanna Linder MD - 05/13/2024 [facility] - Department of Vascular Surgery,Vascular Laboratory [address] [place] [address] Upper Extremity Arterial Doppler Ultrasound Report Patient Name: MOY TOBIN : 1955 Study Date: 05/13/2024 1:51:00 PM Gender: F Tech: Violet Ruiz [facility], t Location: [facility] Provider: ROXANNA LINDER Quality: Adequate Order Provider: [...] Value Units Left Value Units FINDINGS: Performing White Lead Grinder: Violet Ruiz RVT, RDMS. Right Brachial Artery: [...] By: Roxanna Bhardwaj 05/13/2024 2:40:08 PM CDT us Rxoanna Linder MD IMG US PROCEDURES Final Res ult * Cardiology Document Scan (04/01/2024 2:02 PM SALES ASSOCIATE) Anatomical Region Laterality Modality Other us Miles Abraham MD CV CARDIAC SERVICES PROCEDURES F inal Result * (ABNORMAL) eGFR (03/08/2024 10:14 AM SALES ASSOCIATE) eGFR 11(L) >=60 mL/min/1. 73 m2 Comment: [...] reviewed 2020. Blood 03/08/2024 10:1 4 AM SALES ASSOCIATE 03/08/2024 10:15 AM SALES ASSOCIATE us Roxanna Linder MD LAB BLOOD ORDERABLES Final Result Performing Organization Address [facility]/ZIP Co de Phone Number [facility] [address] [place] [place] [address] * (ABNORMAL) Basic metabolic panel (03/08/2024 10:14 AM SALES ASSOCIATE) Sodium 137 135 - 145 mmol/L Potassium, pl 3.6 3.3 - 4.9 mmol/L [facility] Chloride 98 97 - 110 mmol/L [facility] CO2 23 22 - 32 mmol/L [facility] Anion gap 16(H) 2 - 15 mmol/L [facility] BUN 17 6 - 25 mg/dL [facility] Creatinine 4.19(H) 0.60 - 1.10 mg/dL [facility] Glucose 91 70 - 199 mg/dL [facility] Comment: Interpretive Data Fasting glucose >/= 126 [...] 2022. Calcium 9.7 8.5 - 10.3 mg/dL [facility] Blood 03/08/2024 10:1 4 AM SALES ASSOCIATE 03/08/2024 10:15 AM SALES ASSOCIATE Roxanna Linder MD LAB BLOOD ORDERABLES Final Result Performing Organization Address [facility]/ZIP Co de Phone Number [facility] [address] [place] [address] * Hepatitis panel, acute Blood (01/31/2024 10:35 AM SALES ASSOCIATE) Pathologist [facility] Hep A IgM Nonreactive Nonreactive Comment: Interpretive Data: If Hep A IgM Ab is reported as Equivocal, a new sample should be drawn in two weeks for testing. Current interpretive data was last revised on 19. Hep B core IgM Nonreactive Nonreactive [facility] Comment: Interpretive Data If HepB Core IgM Ab is reported as Equivocal, a new sample should be drawn in two weeks for testing. Current interpretive data was last revised on 19. Hep C Ab Nonreactive Nonreactive [facility] Comment: Interpretive Data Nonreactive: Antibodies to HCV [...] revised on 2019. HepBsAg Nonreactive Nonreactive [facility] Blood 01/31/2024 10:3 5 AM SALES ASSOCIATE 01/31/2024 10:36 AM SALES ASSOCIATE us Connie Greenberg MD LAB MICROBIOLOGY - GENE RAL ORDERABLES Final Result [facility] [address] Department [place] [address] from Last 3 Months or Most Recently Relevant to Health Maintenance
--- OUTSIDE RECORDS SUMMARY | 2024-05-27 13:53 | XMS_ITS | Clinical Summary ---
Author Organization [facility] [address] Address [address] [place] [address] Care Team Providers Care Transitional Care Manager Name Role Phone Carrol Pitts MD, Federico Howe Primary Care Provider Roxanna Linder MD Unavailable [phone] Jc Moreau MD Unavailable [phone] Carmen Chavez RN Unavailable [phone] Bahman Ann MD Unavailable [phone] Allergies Active Allergy Reactions Criticality Noted Date [...] (six) hours as needed for pain 05/24/19 Discontinu ed(Error) HYDROcodone-ac etaminophen (NORCO) 5-325 mg [...] 05/10/2021 Dr. 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 [place] [phone] Preop testing (Primary Dx) 05/13/2024 2:30 PM CDT Office Visit [facility] Surgery [address] [facility] [address] [place] [phone] Roxanna Linder MD CRF (chronic renal failure), stage 5 (HCC) (Primary Dx); Arteriovenous fistula stenosis, sequela 05/13/2024 1:45 PM CDT Ancillary Procedure [facility] Surgery [address] [facility] [address] [place] [phone] Arteriovenous fistula, acquired; 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, initial encounter 04/25/2024 1:45 PM SENIOR RADIATION THERAPIST Office Visit [facility] Surgery [address] [facility] [address] [place] [phone] Roxanna Linder MD Postop check (Primary Dx); 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, initial encounter; Arteriovenous fistula, acquired 04/12/2024 Documentation [facility] Transplant Kidney [address] [facility] [address] [phone] [place] [address] Carmen Chavez, RN Kidney Eval 04/12/2024 Documentation [facility] [address] [facility] [address] [phone] [place] [address] Lorene Banerjee 04/11/2024 Orders Only [facility] Cardiology [address] [place] [address] Miles Abraham MD 04/11/2024 Telephone [facility]plant [facility] [address] [facility] [address] [phone] [place] [address] Carmen Chavez, RN Kidney Eval (Eval to schedule for 07/04/24) 04/11/2024 Telephone [facility] [address] [facility] [address] [phone] [place] [address] Carmen Chavez RN Referral - Kidney Txp 03/18/2024 Documentation [facility] Transplant Kidney [address] [facility] [address] [phone] [place] [address] Carmen Chavez RN Referral - Kidney Txp 03/14/2024 Documentation [facility] Transplant [facility] [address] [facility] [address] [phone] [place] [address] Lorene Banerjee 03/12/2024 Telephone [facility] Surgery [address] [facility] [address] [place] [phone] Roxanna Linder MD Med Management 03/11/2024 Documentation [facility]plant [facility] [address] [facility] [address] [phone] [place] [address] Carmen Chavez RN Referral - Kidney Txp 03/11/2024 Telephone [facility] Transplant [facility] [address] [facility] [address] [phone] [place] [address] Lorene Banerjee Referral - Kidney Txp 03/08/2024 12:22 PM SENIOR RADIATION THERAPIST Anesthesia Event [facility] Operating Room [facility] [place] [phone] Miguel Becker MD 03/08/2024 12:00 PM SENIOR RADIATION THERAPIST - 03/08/2024 2:30 PM SENIOR RADIATION THERAPIST Surgery [facility] Operating Room [address] [place] [phone] Roxanna Linder MD Revision Left Arm AV Fistula 03/08/2024 9:36 AM SENIOR RADIATION THERAPIST - 03/08/2024 3:38 PM SENIOR RADIATION THERAPIST Hospital Encounter [facility] Operating Room [address] [place] [address] Roxanna Linder MD Complication of arteriovenous dialysis fistula, subsequent encounter (Primary Dx); End stage renal disease (HCC) Discharge Disposition: Discharge to home or self care 03/07/2024 Telephone [facility] Transplant Kidney [address] [facility] [address] [phone] [place] [address] Jodi Cooper Referral - Kidney Txp 03/04/2024 1:00 PM SENIOR RADIATION THERAPIST Office Visit [facility] Surgery [address] [facility] [address] [place] [address] Roxanna Linder MD 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, initial encounter from Last 3 Months Immunizations Immunization Administration Dates Next Due BCG [...] LINE PLACEMENT > 5 YEARS 01/31/2024 N/A 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 Medical History Medical History Date Comments Arrhythmia afib Heart murmur Asthma Pneumonia Chronic bronchitis (HCC) GERD (gastroesophageal reflux disease) Irritable bowel syndrome Chronic kidney disease Chronic pain disorder Stroke (HCC) CHF (congestive heart failure) (HCC) Anemia Dialysis patient Hypotension Hyperglycemia, drug-induced post steroid use, was on insulin, currently stabe no medication, A1C 4-6 Sleep apnea Hypothyroid Osteoarthritis Basilar artery aneurysm Social History Tobacco Use Types Packs/Day Years Used Date Smoking Tobacco: Never Smokeless Tobacco: Never Tobacco Cessation:Counseling Given: Not Answered [employer] Answer Date Recorded In the past 12 months has [email or web address], oil, or water [employer] threatened to shut off services in your [...] week 01/31/2024 How often do you attend [facility] or roman catholic services? More than 4 times per year 01/31/2024 Do you belong to any clubs o r organizations such as uatsdin groups, unions, fraternal or athletic groups, or [...] in the past 12 m [facility], were you homeless or living in [...] on file Legal Sex Female 1:25 AM SENIOR RADIATION THERAPIST Gender Identity Female 04/11/2024 8:21 PM SENIOR RADIATION THERAPIST Sexual Orientation Straight 04/11/2024 8: 21 PM SENIOR RADIATION THERAPIST Obstetrics History Last Filed Vital Signs Vital Sign Reading Time Taken Comments Blood Pressure 129/78 05/23/2024 10:17 AM CDT Pulse 77 05/23/2024 10:17 AM CDT Temperature 38 C (100.4 F) 05/13/2024 2:11 PM CDT Respiratory Rate 16 03/08/2024 2:50 PM SENIOR RADIATION THERAPIST Oxygen Saturation 96% 05/23/2024 10:17 AM CDT Inhaled Oxygen Concentration - - Weight 70.1 kg (154 lb 8.7 oz) 05/23/2024 10:11 AM CDT Height 157.5 cm (5' 2 ) 05/23/2024 10:11 AM CDT Body Mass Index 28.27 05/23/2024 10:11 AM CDT Plan of Treatment Upcoming Encounters Date Type Department Care Team (Late st Contact Info) Description 05/22/2024 11:59 PM CDT Anesthesia Event [facility] Operating Room [address] [place] [address] Kita Velazquez NP [facility] [address] [place] [address] Health Maintenance Due Date Last Done Comments Albumin Creatinine Ratio, Urine 1955 Colon Cancer Screening-Colonoscopy 1955 Depression Screening 1955 Dilated Eye Exam 1955 Foot Exam 1955 Hepatitis B Screening 1972 Osteoporosis Screening-Bone Density Scan 01/25/2018 01/26/2016, 01/26/2016 Well Visit 65+ 07/25/2019 Breast Cancer Screening-Mammogram 10/13/2022 022 Covid-19 Vaccine ( season) 2024 12/22/2023, 04/18/2022, 01/08/2021, Additional history exists Hemoglobin A1C 08/10/2024 02/10/2024, 09/20, 12/06/2022, Additional history exists Lipid Panel 10/05/2024 10/06/2023 eGFR 03/08/2025 03/08/2024, 01/20, 01/30/2024, Additional history exists Fall Risk Assessment 05/23/2025 05/23/2024 DTaP/Tdap/Td Vaccine (4 - Td or Tdap) 11/12/2033 11/13/2023, 09/28/2022, 12/11/2018 Zoster Vaccine Completed 01/07/2020, 12/11/2018 Pneumococcal vaccine 65+ Completed 022, 09/16/2019, 09/16/2019, Additional history exists Influenza Vaccine Completed 11/22/2023, , 11/23/2022, Additional history exists Hepatitis C Screening Completed 01/31/2024 Medical Devices Implanted Type Area Core Dipper Device Identifier Shelf Expiration Date Model / Serial / Lot Bard Peripheral Vascular P[employer]get Cardiovascular Nominal Thickness Polytetrafluoroethylene 1.65mmx1/4x1/4in [id number] - [id number] Implanted:Qty: 1 on 01/30/2024 by Roxanna Linder MD at [facility] Left: Forearm [employer] Peripheral V[employer] [id number] 11/17/2025 [id number] / / [id number] [facility] Vehrity Duraflow Embosafe 15.5fr 24cm Basic 2 Lumen Kit Catheter [id number] - [id number] Implanted:Qty: 1 on 01/31/2024 at [facility] DivvyHQ 10/20/2025 [id number] / / [id number] Procedures Procedure Name Priority Date/Time Associated [...] CARDIOLOGY DOCUMENT SCAN Routine 04/01/2024 2:02 PM SENIOR RADIATION THERAPIST REVISION ARTERIOVENOUS FISTULA - ARM 03/08/2024 12:21 PM SENIOR RADIATION THERAPIST End stage renal disease (HCC) EGFR Routine 03/08/2024 10:14 AM SENIOR RADIATION THERAPIST BASIC METABOLIC PANEL Routine 03/08/2024 10:14 AM SENIOR RADIATION THERAPIST HEPATITIS PANEL, ACUTE STAT 01/31/2024 10:35 AM SENIOR RADIATION THERAPIST from Last 3 Months or Most Recently Relevant to Health Maintenance Results * (ABNORMAL) Differential, auto (05/23/2024 11:56 AM CDT) Neutrophil abs 4.47 1.50 - 6.50 K/cumm Imm gran abs 0.04 0.00 - 0.10 K/cumm [facility] Lymphocyte abs 2.01 0.80 - 3.30 K/cumm [facility] Monocyte abs 0.91(H) 0.20 - 0.80 K/cumm [facility] Eosinophil abs 0.20 0.00 - 0.50 K/cumm [facility] Basophil abs 0.03 0.00 - 0.10 K/cumm [facility] Neutrophil pct 58.4 % [facility] Comment: Interpretive Data Percent cell count reference ranges are not reported, since discordance with absolute values may lead to misinterpretation of CBC data. Current Interpretive Data was last revised on 2017. Imm gran pct 0.5 % [facility] Comment: Interpretive Data Percent cell count reference ranges are not reported, since discordance with absolute values may lead to misinterpretation of CBC data. Current Interpretive Data was last revised on 2017. Lymphocyte pct 26.2 % [facility] Comment: Interpretive Data Percent cell count reference ranges are not reported, since discordance with absolute values may lead to misinterpretation of CBC data. Current Interpretive Data was last revised on 2017. Monocyte pct 11.9 % [facility] Comment: Interpretive Data Percent cell count reference ranges are not reported, since discordance with absolute values may lead to misinterpretation of CBC data. Current Interpretive Data was last revised on 2017. Eosinophil pct 2.6 % [facility] Comment: Interpretive Data Percent cell count reference ranges are not reported, since discordance with absolute values may lead to misinterpretation of CBC data. Current Interpretive Data was last revised on 2017. Basophil pct 0.4 % [facility] Comment: Interpretive Data Percent cell count reference ranges are not reported, since discordance with absolute values may lead to misinterpretation of CBC data. Current Interpretive Data was last revised on 2017. Blood 05/23/2024 11:5 6 AM CDT 05/23/2024 11:56 AM CDT Kita Velazquez NP LAB BLOOD ORDERABLES nal Result [facility] [address] Department of Laboratories [place], [place] [phone] * (ABNORMAL) CBC with auto differential (05/23/2024 11:56 AM CDT) WBC 7.66 3.80 - 9.90 K/cumm Hgb 9.9(L) 11.9 - 15.5 g/dL [facility] Hct 33.2(L) 35.6 - 45.5 % [facility] Plt 293 150 - 400 K/cumm [facility] MPV 10.4 9.1 - 12.3 fL [facility] RBC 3.71(L) 3.90 - 5.20 M/cumm [facility] MCV 89.5 81.3 - 96.4 fL [facility] MCH 26.7(L) 27.1 - 33.3 pg [facility] MCHC 29.8(L) 32.3 - 35.7 g/dL [facility] RDW CV 17.0(H) 11.1 - 14.9 % [facility] RDW SD 55.0(H) 35.7 - 48.1 fL [facility] NRBC abs 0.00 0.00 - 0.01 K/cumm [facility] Blood 05/23/2024 11:5 6 AM CDT 05/23/2024 11:56 AM CDT Kita Velazquez OPTICAL MANAGER LAB BLOOD ORDERABLES Fi nal Result Performing Organization Address [facility] Co de Phone Number [facility] [address] [place] [address] * aPTT (05/23/2024 11:56 AM CDT) aPTT 38 28 - 38 sec Comment: Interpretive Data Heparin therapeutic range: 66.0 - 100.0 seconds. Range based on correlation with therapeutic heparin activity range of 0.3 - 0.7 Units/mL. Current interpretive data was last revised on 2022. Blood 05/23/2024 11:5 6 AM CDT 05/23/2024 11:56 AM CDT Kita Velazquez OPTICAL MANAGER LAB BLOOD ORDERABLES Fi nal Result Performing Organization Address [facility] de Phone Number [facility] [address] [place] [address] * Protime-INR (05/23/2024 11:56 AM CDT) PT 11.1 9.7 - 13.0 sec INR 1.03 0.90 - 1.20 [facility] Comment: Interpretive data Oral anticoagulant therapeutic ranges: Venous thromboembolism prophylaxis or treatment: 2.0-3.0 CARDIOLOGY Standard range: 2.0-3.0 High-intensity range: 2.5-3.5 Refer to indication-specific guidelines for appropriate target ranges for prosthetic heart valve replacement. Current interpretive data was last revised on 2019. Blood 05/23/2024 11:5 6 AM CDT 05/23/2024 11:56 AM CDT us Kita Velazquez NP LAB BLOOD ORDERABLES Fi nal Result [facility] [address] Department [place] [address] * US Hemodialysis Access (05/13/2024 2:39 PM CDT) Anatomical Region Laterality Modality Vascular N/A Ultrasound 05/13/2024 1:37 PM CDT Narrative 05/13/2024 3:15 PM CDT [facility] - Department of Vascular Surgery, Vascular Laboratory [address] [place] [address] Dialysis Access Fistula/Graft Duplex Report Patient Name: MOY TOBIN : 1955 (68y 9m) Gender: F Study Date: 05/13/2024 01:37:10 PM Office Machine Embossograph Operator: GRAHAM Location: [facility] [place] Provider: ROXANNA LINDER Quality: Adequate [...] Arm Diameter 0.26 cm Lt Deep Vein [place] 91.90 cm/s Lt Outflow Proximal Arm Depth 0.94 cm Lt Axillary Vein 24.10 cm/s Lt Deep Vein [place] Diameter 0.35 cm Lt Subclavian Vein 123.00 cm/s Lt Deep Vein [place] Depth 2.15 cm Lt Outflow Vein (Graft) Volume Flow Average 330 cc/min Lt Inflow Artery Diameter 0.79 cm Diameter/Depth Value Units Velocities Value Units FINDINGS: Performing Office Machine Embossograph Operator: Violet Ruiz RVT, RDMS. [place] Arterial Inflow Normal: No evidence of arterial [...] HISTORY: cardiac issues, HTN, HLD, DM2, ESRD 12-10-24 creation LT brachiocephalic AVF, ligation LT radiocephalic [...] Procedure Note Roxanna Linder MD - 05/13/2024 [facility] - Department of Vascular Surgery,Vascular Laboratory [address] [place] [address] Dialysis Access Fistula/Graft Duplex Report Patient Name: MOY TOBIN : 1955 (68y 9m) Gender: F Study Date: 05/13/2024 01:37:10 PM Office Machine Embossograph Operator: GRAHAM Location: [facility] Order Provider: ROXANNA LINDER Quality: Adequate [...] Arm Diameter 0.26 cm Lt Deep Vein [place] 91.90cm/s Lt Outflow Proximal Arm Depth 0.94 cm Lt Axillary Vein 24.10 cm/s Lt Deep Vein [place] Diameter 0.35 cm Lt Subclavian Vein 123.00 cm/s Lt Deep Vein [place] Depth 2.15 cm Lt Outflow Vein (Graft) Volume FlowAverage 330 cc/min Lt Inflow Artery Diameter 0.79 cm Diameter/Depth Value Units Velocities Value Units FINDINGS: Performing Office Machine Embossograph Operator: Violet Ruiz RVT, RDMS. [place] Arterial Inflow Normal: No evidence of arterial [...] PM CDT Narrative 05/13/2024 3:15 PM CDT [facility] - Department of Vascular Surgery, Vascular Laboratory [address] [place] [address] Upper Extremity Arterial Doppler Ultrasound Report Patient Name: MOY TOBIN : 1955 Study Date: 05/13/2024 1:51:00 PM Gender: F Tech: Violet Ruiz Rdms, fito Location: [facility] Provider: ROXANNA LINDER Quality: Adequate Order [...] Value Units Left Value Units FINDINGS: Performing Office Machine Embossograph Operator: Violet Ruiz RVT, RDMS. Right Brachial Artery: [...] Procedure Note Roxanna Linder MD - 05/13/2024 [facility] - Department of Vascular Surgery,Vascular Laboratory [address] [place] [address] Upper Extremity Arterial Doppler Ultrasound Report Patient Name: MOY TOBIN : 1955 Study Date: 05/13/2024 1:51:00 PM Gender: F Tech: Violet Ruiz Rdms, fito Location: [facility] Provider: ROXANNA LINDER Quality: Adequate Order [...] Value Units Left Value Units FINDINGS: Performing Office Machine Embossograph Operator: Violet Ruiz RVT, RDMS. Right Brachial Artery: [...] * Cardiology Document Scan (04/01/2024 2:02 PM SENIOR RADIATION THERAPIST) Anatomical Region Laterality Modality Other Miles Abraham MD CV CARDIAC SERVICES PROCEDURES F inal Result * (ABNORMAL) eGFR (03/08/2024 10:14 AM SENIOR RADIATION THERAPIST) eGFR 11(L) >=60 mL/min/1. 73 m2 Comment: [...] reviewed 2020. Blood 03/08/2024 10:1 4 AM SENIOR RADIATION THERAPIST 03/08/2024 10:15 AM SENIOR RADIATION THERAPIST Roxanna Linder MD LAB BLOOD ORDERABLES Final Result [facility] [address] Department of Laboratories [place], [place] [phone] * (ABNORMAL) Basic metabolic panel (03/08/2024 10:14 AM SENIOR RADIATION THERAPIST) [facility] Sodium 137 135 - 145 mmol/L Potassium, pl 3.6 3.3 - 4.9 mmol/L [facility] Chloride 98 97 - 110 mmol/L [facility] CO2 23 22 - 32 mmol/L [facility] Anion gap 16(H) 2 - 15 mmol/L [facility] BUN 17 6 - 25 mg/dL [facility] Creatinine 4.19(H) 0.60 - 1.10 mg/dL [facility] Glucose 91 70 - 199 mg/dL [facility] Comment: Interpretive Data Fasting glucose >/= 126 [...] 2022. Calcium 9.7 8.5 - 10.3 mg/dL [facility] Blood 03/08/2024 10:1 4 AM SENIOR RADIATION THERAPIST 03/08/2024 10:15 AM SENIOR RADIATION THERAPIST us Roxanna Linder MD LAB BLOOD ORDERABLES Final Result [facility] [address] Department [place] [address] * Hepatitis panel, acute Blood (01/31/2024 10:35 AM SENIOR RADIATION THERAPIST) [facility] Hep A IgM Nonreactive Nonreactive Comment: Interpretive Data: If Hep A IgM Ab is reported as Equivocal, a new sample should be drawn in two weeks for testing. Current interpretive data was last revised on 19. Hep B core IgM Nonreactive Nonreactive [facility] Comment: Interpretive Data If HepB Core IgM Ab is reported as Equivocal, a new sample should be drawn in two weeks for testing. Current interpretive data was last revised on 19. Hep C Ab Nonreactive Nonreactive [facility] Comment: Interpretive Data Nonreactive: Antibodies to HCV [...] last revised on 2019. HepBsAg Nonreactive Nonreactive [facility] Blood 01/31/2024 10:3 5 AM SENIOR RADIATION THERAPIST 01/31/2024 10:36 AM SENIOR RADIATION THERAPIST Connie Greenberg MD LAB MICROBIOLOGY - GENE RAL ORDERABLES Final Result [facility] [address] Department [place] [address] from Last 3 Months or Most Recently Relevant to Health Maintenance Insurance [facility] MEDICARE SUPPLEMENT MEDICARE [facility] MEDICARE SUPPLEMENT MEDICARE [facility] MEDICARE SUPPLEMENT MEDICARE BLUE [employer]OSS MEDICARE SUPPLEMENT Advance Directives For more information, please contact: [phone] * Full Code (Latest Code Status on File) Date Activated Date Inactivated Comments 01/30/2024 8:33 PM 02/01/2024 11:09 PM Care Teams Transitional Care Manager Relationship Specialty Start Date End Date Federico Branham Jr., MD [address] [place] [address] PCP - General Family Medicine 01/30/24 Roxanna Linder MD [address] [facility] [address] [place] [address] Consulting Physician Surgery 01/31/24 Jc Moreau MD [address] [facility] [address] [place], [place] [phone] Referring Physician Nephrology 03/07/24 Carmen Chavez, RN [address] [facility] [address] [place] [address] Youth Teacher 03/11/24 Bahman Ann MD [address] [facility] [address] [place] [phone] Cardiology 04/11/24
--- OUTSIDE RECORDS SUMMARY | 2024-05-27 13:53 | XMS_ITS | Data Portability ---
Author Organization [facility] ([facility]) Address [id number] [place] [phone] Care Team Providers Care Taxicab Driver Name Role Phone JAYME DONALDSON Primary Care Provider KACIE HAQ Referring Provider Assessment No assessment recorded. Plan of Treatment [...] Sleep Study completed Francisco Tobin MD, F.C.C.P. [address] [place] [address], [place], [address], [facility] 12/07/2021 07:36:18 Imaging Results None recorded. Procedure [...] and Address Organization Details Last Updated DateTime 12/03/2021 157.48 cm 45.7 kg/m2 668022.09 g Matt Mueller [facility] 12/06/2021 14:26:55 Social History None recorded. Functional Status None recorded. Mental Status None recorded. Family History Nothing Reported. Medical History No medical history recorded. Gynecological HistoryNo gynecological history recorded. Obstetrics History GPAL:G 0 P 0 0 0 0 Past Encounters Encounter ID Performer Location Encounter Start Date Encounter Closed Date Diagnosis/Indication Diagnosis SNOMED-CT Code Diagnosis ICD10 Code Diagnosis Note [id number] Francisco Tobin MD, F.C.C.P. [facility] ([phone] [place] [address] 12/03/2021 21:19:35 12/06/2021 13:57:30 Obstructive sleep apnea of adult 9967027920 103 G47.33 Health Concerns Section Related Observation LastModified by Organization Detai ls LastModified Time None Recorded Concern Status LastModified by Organization Details LastModified Time None Recorded Advance Directives Directive None Recorded Payers Encounter Date Sequence Insurance Name Policy Number Policy Ravi Covered Member ID Ravi Member ID Guarantor Name 12/03/2021 1 [place] Donya Tobin [id number] Donya Tobin 12/03/2021 2 [place] [id number] Donya Tobin [id number] Donya Tobin OBGyn Episode No OBEpisode recorded.
--- OUTSIDE RECORDS SUMMARY | 2024-05-27 13:55 | XMS_ITS | Encounter Summary ---
Author Organization [facility] Address [address] [place] [address] Care Team Providers Care Screening Nurse Name Role Phone Faith Jalloh Unavailable Savanna Auguste RN Unavailable Eden Godoy Unavailable Unavailable Carrol Pitts MD, Federico Howe Primary Care Provider Farrukh Solorzano MD Unavailable -[phone] Keya Reina MD Unavailable Unavailable Osmar Zambrano MD Unavailable Francisco Tobin MD Unavailable Jc Moreau MD Unavailable [phone] Ryland Alves MD Unavailable Lorene Ly MD Unavailable Carrol Pitts MD, Federico Howe Unavailable Care, [facility] Kidney Unavailable [phone] Protzel, Celi E FARM CREW MEMBER Unavailable Bahman Ann MD Unavailable Carrol Pitts MD, Federico Howe Unavailable Bahman Ann MD Unavailable Carrol Pitts MD, Federico Howe Unavailable Celi Carter FARM CREW MEMBER Unavailable [phone] Carrol Pitts MD, Federico Howe Unavailable Ryland Alves MD Unavailable [phone] Piotr Alvarez MD Unavailable Carrol Pitts MD, Federico Howe Unavailable Julee Kang MD Unavailable [phone] Carrol Pitts MD, Federico Howe Unavailable Bahman Ann MD Unavailable Oralia Boone RN Unavailable [phone] Francesco Hong MD Unavailable Zoey Boyle BLOCK PAVER-CLINICAL RESEARCH ASSISTANT Unavailable Bahman Ann MD Unavailable Mendy Camacho Unavailable Liss Gooden MD Primary Care Provider [phone] Alycia Holguin RN Unavailable [phone] Kylah Solares Unavailable Carrol Pitts MD, Federico Howe Unavailable Carrol Pitts MD, Federico Howe Unavailable Carrol Pitts MD, Federico Howe Primary Care Provider Octavia Parry BLOCK PAVER-CLINICAL RESEARCH ASSISTANT Unavailable Encounter Details Date Type Department Care Team (Late st Contact Info) Description 04/23/2013 [facility] Outpatient Visit [facility] [address] [place] [address] Walter Jorgensen MD [address] [place] [address] Social History Tobacco Use Types Packs/Day Years Used Date Smoking Tobacco: Never Smokeless Tobacco: Never Alcohol Use Standard Drinks/Week Comments No 0 (1 standard drink = 0.6 oz pur e alcohol) Sex and Gender Information Value Date Recorded Sex Assigned at Female 02/14/2020 1:06 PM PET FEEDER Gender Identity Female 02/14/2020 1:05 PM PET FEEDER Sexual Orientation Straight 02/14/2020 1: 05 PM PET FEEDER documented as of this encounter Plan of Treatment Upcoming Encounters Date Type Department Care Team (Late Contact Info) Description 06/06/2024 8:45 AM CDT Office Visit [facility] - Ophthalmology [address] [place] [phone] Jaylon Marks MD [address] [place] [address] [place] [phone] 07/16/2024 2:15 PM CDT Office Visit [facility] - Orthopedics [address] [place] [phone] Ryland Fuentes MD [address] [place] [address] 07/30/2024 10:20 AM CDT Office Visit [facility] - Family Medicine [id number] [place] [address] [place] [address] [place] [address] [phone] 08/06/2024 10:20 AM CDT Office Visit [facility] - Podiatry [address] [place] [address] Devika Rolon [facility] [address] [facility] [address] [place] [address] 08/16/2024 1:15 PM CDT Office [facility] [address] [facility] [address] [place] [address] Federico Branham Jr., MD [address] [place] [address] Bahman Ann MD [address] [facility] 200 [place] [phone] 11/26/2024 9:30 AM CDT Office Visit [facility] - Neurology [address] [place] [address], [place] [phone] Familia Duncan MD [address] [place] [address] 1L [place] [phone] 01/10/2025 10:00 AM PET FEEDER Office Visit [facility] - GI [address] [place] [address], [place] [phone] Thais Euceda PA-C [address] [facility] DEPT [place] [phone] documented as of this encounter Visit Diagnoses [...] Under Investigation 02/09/2023 02/09/2023 02/09/2023 2:41 PM PET FEEDER COVID-19 Under Investigation 10/14/2023 10/14/2023 10/14/2023 11:24 AM CDT COVID-19 Under Investigation 03/16/2024 03/16/2024 03/16/2024 2:43 PM PET FEEDER COVID-19 Under Investigation 03/16/2024 03/16/2024 03/16/2024 3:58 PM PET FEEDER Influenza A or B 03/16/2024 03/16/2024 03/23/2024 4:33 AM PET FEEDER documented as of this encounter Care Teams Screening Nurse Relationship Specialty Start Date End Date Federico Branham Jr., MD PCP - General Family Medicine 08/01/18 09/24/23 Federico Branham Jr., MD [address] [place] [address] PCP - Attributed-MSSP 03/23/19 11/20/19 Bahman Ann MD 1027 [facility] 200 [place] [phone] PCP - Attributed-MSSP 11/21/19 0 Federico Branham Jr., MD [address] [place] [address] PCP - Attributed-MSSP 12/22/19 0 Bahman Ann MD [address] [facility] 200 [place] [address] PCP - Attributed-MSSP 01/21/20 0 Federico Branham Jr., MD [address] [place] [address] PCP - Attributed-MSSP 02/21/20 10/20/21 Federico Branham Jr., MD [address] [place] [address] PCP - Strive ACO 09/27/21 01/09/22 [place] [address] [phone] PCP - Attributed-MSSP 10/21/21 2 Piotr Alvarez [place] [address] PCP - Strive ACO 01/10/22 03/28/22 Federico Branham Jr., MD [address] [place] [address] PCP - Attributed-MSSP 01/20/22 05/21/23 Julee Kang MD [address] [facility] 410 [place] [address] PCP - Strive ACO 03/29/22 05/20/22 Federico Branham Jr., MD [address] [place] [address] PCP - Strive ACO 05/21/22 08/19/22 Bahman Ann MD [address] [facility] 200 [place] [address] PCP - Strive ACO 08/20/22 12/20/22 Francesco Hong MD [address] [facility] [place] [address] PCP - Strive ACO 12/21/22 08/20/23 Zoey Boyle APRN-CLINICAL RESEARCH ASSISTANT [address] [place] [phone] PCP - Attributed-MSSP 05/22/23 08/20/23 Bahman Ann MD [address] [facility] 200 [place] [address] PCP - Strive ACO 08/21/23 10/21/23 [place] [address] [phone] PCP - General Family Medicine 09/25/23 12/14/23 Federico Branham Jr., MD [address] [place] [address] PCP - Strive ACO 10/22/23 Federico Branham Jr., MD [address] [place] [address] PCP - Attributed-MSSP 08/21/23 11/20/23 Federico Branham Jr., MD [address] [place] [address] PCP - General Family Medicine 12/15/23 Octavia Parry, BLOCK PAVER-CLINICAL RESEARCH ASSISTANT [address] [facility] [place] [address] PCP - Attributed-MSSP 11/21/23 Faith Jalloh SnailerBody Shop Mechanic 03/17/13 03/12/19 Savanna Auguste, RN Snailer 06/04/13 06/30/16 Eden Godoy Dialysis Liaison 07/01/16 04/10/23 Farrukh Solorzano MD [address] [facility] [address] [place] [address] -x7 (Work) Cardiovascular Disease 08/01/18 Keya Reina MD [address] [place] [address] [address] [place] [address] Gastroenterology 08/01/18 Osmar Zambrano MD [address] [place] [address] 150 [place] [address] Otolaryngology 08/01/18 Francisco Tobin MD [address] [place] [phone] Pulmonary Disease 08/01/18 Jc Moreau MD [address] [facility] [address] [place] [address] Nephrology 08/01/18 [place] [address] [place] [address] Fur Finisher Cardiac Electrophysiology 09/03/18 [place] [address] [place] [address] Cardiology 04/25/19 Care, [facility] Kidney Bundle PersonTube Tester 08/29/19 Celi Carter, [facility] Outpatient Starch Treating Assistant Care Management 11/19/19 11/25/19 Celi Carter, FARM CREW MEMBER Behavioral Health Therapist Care Management 05/13/20 05/19/20 Oralia Boone, RN Bundle PersonTube Tester 12/27/22 12/27/22 Mendy Camacho [address] [facility] [address] [place] [address] Care Coordination Specialist Care Management 09/21/23 09/21/23 Alycia Holguin, RN [address] [facility] [address] Bundle PersonTube Tester 10/20/23 10/20/23 Kylah Solares Care Coordination Specialist Care Management 10/25/23 12/01/23 documented as of this encounter
--- OUTSIDE RECORDS SUMMARY | 2024-05-27 13:55 | XMS_ITS | Encounter Summary ---
Author Organization [facility] Address [address] [place] [address] Care Team Providers Care Pottery Decorator Name Role Phone Eden Godoy Donavan Unavailable Unavailable Carrol Pitts MD, Federico Howe Primary Care Provider Farrukh Solorzano MD Unavailable [phone] Keya Reina MD Unavailable Unavailable StrangOsmar browne MD Unavailable Francisco Tobin MD Unavailable Jc Moreau MD Unavailable [phone] Ryland Alves MD Unavailable [phone] Lorene Ly MD Unavailable [facility], [facility] Kidney Unavailable [phone] Carrol Pitts MD, Joseph Theodore Unavailable Carrol Pitts MD, Joseph Theodore Unavailable Ryland Alves MD Unavailable [phone] Piotr Alvarez MD Unavailable Carrol Pitts MD, Federico Howe Unavailable Julee Kang MD Unavailable [phone] Carrol Pitts MD, Joseph Theodore Unavailable Bahman Ann MD Unavailable [phone] Oralia Boone RN Unavailable [phone] Francesco Hong MD Unavailable Zoey Boyle PRESIDENT CEO & FOUNDER-DIABETES EDUCATOR Unavailable [phone] Bahman Ann MD Unavailable [phone] Mendy Camacho Unavailable Liss Gooden MD Primary Care Provider [phone] Alycia Holguin RN Unavailable [phone] Kylah Solares Unavailable [phone] Carrol Pitts MD, Joseph Theodore Unavailable Carrol Pitts MD, Joseph Theodore Unavailable Carrol Pitts MD, Federico Howe Primary Care Provider Octavia Parry PRESIDENT CEO & FOUNDER-DIABETES EDUCATOR Unavailable [phone] Encounter Details Date Type Department Care Team (Late st Contact Info) Description 01/01/2021 Patient Outreach [facility] [address]01 [place] [phone] Liberty Flaherty, RN Social History Tobacco Use [...] Sex Assigned at Female 02/14/2020 1:06 PM HAND COKE DRAWER Gender Identity Female 02/14/2020 1:05 PM HAND COKE DRAWER Sexual Orientation Straight 02/14/2020 1: 05 PM HAND COKE DRAWER documented as of this encounter Functional Status [...] 06/06/2024 8:45 AM CDT Office Visit [facility] - Ophthalmology [address] [place] [address] Jaylon Marks MD [address] [place] [address] [place] [address] 07/16/2024 2:15 PM CDT Office Visit [facility] - Orthopedics [address] [place] [address] Ryland Fuentes MD [address] [place] [address] 07/30/2024 10:20 AM CDT Office Visit [facility] - Family Medicine [address] [place] [address] [place] [address] [place] [address] [phone] 08/06/2024 10:20 AM CDT Office Visit [facility] - Podiatry [address] [place] [address] [address] [place] [address] Devika Rolon [facility] [address] [facility] 500 [place] [address] 08/16/2024 1:15 PM CDT Office Visit [facility] [address] [place] [address] [address] [place] [address] Federico Branham Jr., MD [address] [place] [address] Bahman Ann MD [facility] 200 [place] [address] 11/26/2024 9:30 AM CDT Office Visit [facility] - Neurology [address] [place] [address], [place] [address] Familia Duncan MD [address] [place] [address] 1L [place] [address] 01/10/2025 10:00 AM HAND COKE DRAWER Office Visit [facility] - GI [address] [place] [address], [place] [address] Thais Euceda PA-C [facility] [place]PT [place] [address] documented as of this encounter Goals Goal Patient Goal Type Associated Problems Recent Progress Patient-Stated? Author Medication Management General On track( 024 9:50 AM HAND COKE DRAWER) Andra Fonseca, JAMESON Note: Expected end date: [...] Under Investigation 02/09/2023 02/09/2023 02/09/2023 2:41 PM HAND COKE DRAWER COVID-19 Under Investigation 10/14/2023 10/14/2023 10/14/2023 11:24 AM CDT COVID-19 Under Investigation 03/16/2024 03/16/2024 03/16/2024 2:43 PM HAND COKE DRAWER COVID-19 Under Investigation 03/16/2024 03/16/2024 03/16/2024 3:58 PM HAND COKE DRAWER Influenza A or B 03/16/2024 03/16/2024 03/23/2024 4:33 AM HAND COKE DRAWER documented as of this encounter Care Teams Pottery Decorator Relationship Specialty Start Date End Date Federico Branham Jr., MD PCP - General Family Medicine 08/01/18 09/24/23 Federico Branham Jr., MD [address] [place] [address] PCP - Attributed-MSSP 02/21/20 10/20/21 Federico Branham Jr., MD [address]759 [place] [address] PCP - Strive ACO 09/27/21 01/09/22 [place] [address] [address] PCP - Attributed-MSSP 10/21/21 2 Piotr Alvarez MD [address] [place] [address] PCP - Strive ACO 01/10/22 03/28/22 Federico Branham Jr., MD [address] [place] [address] PCP - Attributed-MSSP 01/20/22 05/21/23 Julee Kang MD [address] [facility] 410 [place] [address] PCP - Strive ACO 03/29/22 05/20/22 Federico Branham Jr., MD [address] [place] [address] PCP - Strive ACO 05/21/22 08/19/22 Bahman Ann MD [address] [facility] 200 [place] [address] PCP - Strive ACO 08/20/22 12/20/22 Francesco Hong MD 6420 [place] [address] PCP - Strive ACO 12/21/22 08/20/23 Zoey Boyle, PAIGE-DIABETES EDUCATOR 9759 [place] [address] PCP - Attributed-MSSP 05/22/23 08/20/23 Bahman Ann MD [address] [facility] 200 [place] [address] PCP - Strive ACO 08/21/23 10/21/23 [place] [address] [address] PCP - General Family Medicine 09/25/23 12/14/23 Federico Branham Jr., MD [address] [place] [address] PCP - Strive ACO 10/22/23 Federico Branham Jr., MD [address] [place] [address] PCP - Attributed-MSSP 08/21/23 11/20/23 Federico Branham Jr., MD [address] [place] [address] PCP - General Family Medicine 12/15/23 Octavia Parry, PRESIDENT CEO & FOUNDER-DIABETES EDUCATOR [address] [place] [address] PCP - Attributed-MSSP 11/21/23 Eden Godoy Dialysis Liaison 07/01/16 04/10/23 Farrukh Solorzano MD [address] [place] [address] [place] [address] -x7 (Work) Cardiovascular Disease 08/01/18 Keya Reina MD [address] [place] [address] [address] [place] [address] Gastroenterology 08/01/18 Osmar Zambrano MD [address] [place] [address] [place] [address] Otolaryngology 08/01/18 Francisco Tobin MD [address] [place] [address] Pulmonary Disease 08/01/18 Jc Moreau MD [address] [facility] [address] [place] [address] Nephrology 08/01/18 [place] [address] [place] [address] Records Specialist Cardiac Electrophysiology 09/03/18 [place] [address] [place] [address] Cardiology 04/25/19 [facility] Kidney Car BuilderEntry Analyst 08/29/19 Oralia Boone, JAMESON Car BuilderEntry Analyst 12/27/22 12/27/22 Mendy Camacho [address] [facility] [address] [place] [address] Care Coordination Specialist Care Management 09/21/23 09/21/23 Alycia Holguin, RN [address] [facility] [address] Car BuilderEntry Analyst 10/20/23 10/20/23 Kylah Solares Care Coordination Specialist Care Management 10/25/23 12/01/23 documented as of this encounter
--- OUTSIDE RECORDS SUMMARY | 2024-05-27 13:55 | XMS_ITS ---
Author Organization [facility] Address [address] [facility] [place] [address] Care Team Providers Care Tobacco Sieve Operator Name Role Phone Farrukh Solorzano MD Unavailable [phone] Keya Reina MD Unavailable Unavailable Osmar Zambrano MD Unavailable Francisco Tobin MD Unavailable Jc Moreau MD Unavailable [phone] Ryland Alves MD Unavailable Lorene Ly MD Unavailable Care, [facility] Kidney Unavailable Carrol Pitts MD, Joseph Theodore Unavailable Carrol Pitts MD, Federico Howe Primary Care Provider Octavia Parry SENIOR TECHNICAL EDITOR-RAKER BUFFING WHEEL Unavailable [phone] Transplant Episode Kidney Candidate [facility] ([facility] [place]) - [facility] Referred on 01/12/2011 Marked as Ineligible on 01/17/2011 Reason: Weight Issues Kidney CoordinatorKathy Younger RN Phone: N/A Fax: N/A Email: N/A Scores Score Value Updated Exceptions/Reas ons CPRA Not available EPTS (Calc) 100 05/27/2024 [place] Organ Diagnosis Organ Primary Contributory Kidney Diabetes Mellitus - Type II Care Team Name Role Phone Fax Email Kathy Younger RN Kidney Coordinator N/A N/A N/A Jc Moreau MD Referring Physician N/A N/A N/A Events Pre-Transplant Referred: 01/12/2011 Dialysis History Dialysis History Start End Type Comments Center 09/23/2009 Carlo [facility] D[facility] Information Center Phone Fax Address [facility] [phone] [address] [facility] [address]
--- OUTSIDE RECORDS SUMMARY | 2024-05-27 13:55 | XMS_ITS ---
Author Organization [facility] Address [address] [facility] [address] Care Team Providers Care Turf Keeper Name Role Phone Farrukh Solorzano MD Unavailable -[phone] Keya Reina MD Unavailable Unavailable Osmar Zambrano MD Unavailable Francisco Tobin MD Unavailable Jc Moreau MD Unavailable [phone] Ryland Alves MD Unavailable Lorene Ly MD Unavailable Care, [facility] Kidney Unavailable Carrol Pitts MD, Joseph Theodore Unavailable Carrol Pitts MD, Federico Howe Primary Care Provider Octavia Parry FEDERAL LAW CLERK-SAFETY AND OCCUPATIONAL HEALTH MANAGER Unavailable [phone] Transplant Episode Kidney Candidate [facility] ([place], [place]) - [facility] Referred on 01/26/2012 Marked as Ineligible on 02/04/2012 Reason: Weight Issues Kidney CoordinatorKathy Younger RN Phone: N/A Fax: N/A Email: N/A Scores Score Value Updated Exceptions/Reas ons CPRA Not available EPTS (Calc) 100 05/27/2024 [place] Organ Diagnosis Organ Primary Contributory Kidney Diabetes Mellitus - Type II Care Team Name Role Phone Fax Email Kathy Younger RN Kidney Coordinator N/A N/A N/A Jc Moreau MD Referring Physician N/A N/A N/A Events Pre-Transplant Referred: 01/26/2012 Dialysis History Dialysis History Start End Type Comments Center 09/23/2009 Carlo [facility] D[facility] Information Center Phone Fax Address [facility] [phone] [address] [facility] [address]
--- OUTSIDE RECORDS SUMMARY | 2024-05-27 13:55 | XMS_ITS | Encounter Summary ---
Author Organization [facility] Address [address] [place] [address] Care Team Providers Care Animal Assisted Therapist Name Role Phone Farrukh Solorzano MD Unavailable [phone] Keya Reina MD Unavailable Unavailable Osmar Zambrano MD Unavailable Francisco Tobin MD Unavailable Jc Moreau MD Unavailable [phone] Ryland Alves MD Unavailable Lorene Ly MD Unavailable [facility], [facility] Unavailable Carrol Pitts MD, Joseph Theodore Unavailable Carrol Pitts MD, Federico Howe Primary Care Provider Octavia Parry NOCTURNIST PHYSICIAN-EXT JS DEVELOPER Unavailable [phone] Reason for Referral * Consultation (Routine) - Open Specialty Diagnoses / Procedures Referred By Lee Ann t Referred To Contact Cardiology Diagnoses Cerebrovascular accident (CVA), unspecified mechanism (HCC) Celi Bob PA-C [address] [facility] [address] [place] [address] Referral ID Status Reason Start Date Expiration Date V isits Requested Visits Authorized [id number] Open Specialty Services Required 05/27/2024 05/27/2025 1 1 Encounter Details Date Type Department Care Team (Latest Contact Info) Description 05/27/2024 10:00 AM CDT Office Visit [facility] - Neurology [address] [place] [address], [place] [address] Celi Bob PA-C [address] [facility] [address] [place] [address] Cerebrovascular accident (CVA), unspecified mechanism (HCC) (Primary Dx); Basilar artery aneurysm; Atrial fibrillation, unspecified type (HCC) Social History Tobacco Use Types Packs/Day Years [...] Recorded Patient Health Questionnaire-2 Score 0 04/12/2024 [facility] [place] of Occupat ional Health - Occupational Stress [...] place to sleep or slept in a chcf (including now)? Patient declined 10/05/2023 Housing Stability [...] any time in the past 12 [facility], were you homeless or living in a chcf (including now)? No 02/10/2024 Education Answer Date Recorded What is the highest level of school you have completed or the highest degree you have received? Doctorate 09/25/2023 Sex and Gender Information Value Date Recorded Sex Assigned at Female 02/14/2020 1:06 PM OTR COMPANY DRIVER Gender Identity Female 02/14/2020 1:05 PM OTR COMPANY DRIVER Sexual Orientation Straight 02/14/2020 1: 05 PM OTR COMPANY DRIVER documented as of this encounter Last Filed Vital Signs Vital Sign Reading Time Taken Comments Blood Pressure 124/87 05/27/2024 10:04 AM CDT Pulse 81 05/27/2024 10:04 AM CDT Temperature - - Respiratory Rate 16 05/27/2024 10:04 AM CDT Oxygen Saturation - - Inhaled Oxygen Concentration - - Weight - - Height - - Body Mass Index - - documented in this encounter Functional Status Functional Status Response [...] person have difficulty concentrating/remembering/making decisions? No 02/10/2024 documented as of this encounter Patient Instructions * Patient Instructions* Celi Bob PA-C - 05/27/2024 10:26 AM CDT -Follow up with Dr. Magaña to monitor your aneurysm nov 2024 and get the MRI in October 2024. -Follow up with your primary care provider as routinely scheduled to monitor your blood pressure and yearly cholesterol labs. -Follow up with our clinic as needed in the future -If you have questions about this visit, please contact our nurse Mercy at [phone]. -If additional testing/referrals were ordered, you will receive a call you to schedule this. If youhaven't heard from them in 2 weeks, please call [phone] -Take your medications as prescribed. If you have questions on them you can speak with your primarycare provider, pharmacist or call our office. Goals to decrease risk of future stroke: - Goal blood pressure is around 120 (top number) and 80 (bottom number) - For people with diabetes, goal A1c less than 7 - Cholesterol goal LDL less than 100 - Medication compliance - Physical Activity: 3-4x 40min sessions of aerobic exercise per week - Nutrition: diet rich in fruit and vegetables, low sodium intake to less than 2.4gram per day - Tobacco avoidance -Signs or symptoms of a stroke include: sudden numbness or weakness in your face, arm, or legs, sudden problems with speaking or understanding speech, sudden issues with walking or loss of balance, sudden lack of coordination, or asymmetrical features of your face. If any of these events occur, please call 911 and go to the nearest emergency room. documented in this encounter Progress Notes * Celi Bob PA-C - 05/27/2024 10:00 AM CDT Stroke Neurology Clinic Visit Note Date of Encounter: 05/27/2024 Chief Complaint: Stroke Follow up HPI: Donya Tobin is a 68 year old y/o female who presents to the outpatient clinic for follow up. Pt isdoing well from a stroke perspective. She is done with therapy and her weakness has improved. She still notices her right shoulder to elbow is a little weak and does stretching for that. She is stillin a WC for long distances and walker for short. She never needed the AFO. She still needs to hold on to the hollis when walking at home. No new stroke symptoms. She has been having headaches and neckstiffness from her cervical spine sx. This has been getting worse since surgery. This is not new. She has no fevers (was hospitalized in feb for PNA). The muscles of her neck are stiff and even preven ting her from turning all the way. She has a muscle relaxor which helps but makes her tired. She isnot driving. She is having sx on her dialysis fistula tomorrow which is why she is temporarily off plavix. No issues with the watchman procedure she had 01/2024. She continues to work some at home. She is having issues with swallowing due to esophageal stricture but no problems initiating a swallow. Sees GI. ROS: A 10-pt ROS was performed. Pertinent negatives include no speech difficulty, no visual disturbances, no vertigo, no sensory disturbance. All other systems were reviewed and negative. Allergies: Allergies Allergen Reactions Diovan [Valsartan] Other Loses her voice Lisinopril Unknown Voice changed Propoxyphene Dizziness Home Medications: Current Outpatient Medications Medication acetaminophen (Tylenol) 500 MG tablet albuterol (Proventil;Ventolin) (2.5 MG/3ML) 0.083% nebulizer solution artificial tears ophthalmic solution aspirin (Aspirin) 81 MG chew tablet atorvastatin (Lipitor) 40 MG tablet B Kmrylhd-P-Ftdfc Acid (Dialyvite 800) 0.8 MG calcium acetate (PHOSLO) 667 MG capsule cinacalcet (SENSIPAR) 60 MG tablet clopidogrel (plaVIX) 75 MG tablet digoxin (Lanoxin) 0.125 MG tablet FLUoxetine (PROzac) 20 MG capsule fluticasone propionate (Flonase) 50 MCG/ACT nasal spray lanthanum (FOSRENOL) 1000 MG chew tablet latanoprost (Xalatan) 0.005 % ophthalmic solution levalbuterol (Xopenex) 45 MCG/ACT inhaler metoprolol succinate XL 24hr (Toprol XL) 25 MG tablet midodrine (Proamatine) 5 MG tablet montelukast (SINGULAIR) 10 MG tablet omeprazole (PriLOSEC) 20 MG capsule tiZANidine (Zanaflex) 4 MG tablet VITAMIN D PO No current facility-administered medications for this visit. History-PMH, Family Hx, Social Hx: PMH: Past Medical History: Diagnosis Date Anemia Anuria 2013 Arthropathy knee and back Asthma rescue inhalers Atrial fibrillation dx'd in 1992, had cardiac ablations in 1992 and 2016, 1st ones at [facility] and 2nd one here at [facility], follows with management lead Dr. 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 treated [facility] antibx. DVT (deep venous thrombosis) BLE DVTs, pt was in hospital x 1 week, bed ridden, c/o leg pain, found BLE DVTs DVT of leg (deep venous thrombosis) 03/20/2013 DVT left leg, superficial right leg Esophageal reflux Esophageal stricture has had 2 dilatations, pt states if she does not take her PPIs then her esophagus starts to close up, EGDs completed here at [facility] ESRD on hemodialysis Generalized anxiety disorder Glaucoma History of blood transfusion HTN (hypertension) Hypercholesteremia Hyperparathyroidism had parathyroiectomy Hypertension 1988 Hypotension 2016 pt has been on midorine since then, is now down to 5mg on dialysis days only as of 10/21/2022 Hypoxemia has worn at home in past, hasn't worn in years [place] (myocardial infarction) 2003 Morbid obesity Neuropathy Obstructive sleep apnea mild sleep apnea, last sleep study 09/2021 On home oxygen therapy has worn O2 at home in the past Peptic ulcer disease 1980s Primary gout 2009 Sickle cell trait Sleep apnea 02/2002 uses CPAP without O2- compliant most nights 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 Only took dm meds for 1 year in 2009. Family History: Family History Problem Relation Name Age of Onset Hypertension Mother Hypercholesterolemia Mother Heart Failure Mother CAD (Coronary Artery Disease) Mother CABG Diabetes Mother Arthritis - Osteo Mother Kidney Disease Mother CRF- dialysis Arthritis - Rheumatoid Mother Glaucoma Mother Cancer Father 49 colon CA Other Sister respiratory issues Other Sister MVC Obesity Sister Diabetes - Type 2 Sister Arthritis - Osteo Sister CAD (Coronary Artery Disease) Sister Hypertension Sister Diabetes Sister None Known Sister None Known Sister None Known Sister None Known Sister None Known Sister None Known Sister Heart Failure Paternal Uncle Diabetes - Type 2 Paternal Uncle Cancer - Stomach Paternal Grandmother Social History: Denies alcohol use, Never smoker, and Lives alone Relevant Results & Imaging: Since last visit- Watchman closure 01/2024 hospitalization MRI: 1.There is a small focus of abnormal [...] of the cervical spine for additional details. Vessel Imagin. No acute intracranial hemorrhage. 2. No large arterial occlusions or significant stenoses identified in the head or neck. 3. 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 4. Extensive postoperative changes of anterior and posterior spinal fusion in the cervical spine as detailed above. Recent Labs Component Name 10/06/23 0302 LDLCALC 58 A1c: Recent Labs Component Name 02/10/24 0108 HGBA1C 5.1 Objective: Vitals: BP 124/87 Pulse 81 Resp 16 General: WDWN pt resting comfortably in the chair in NAD Comprehensive Neurological Examination: - Mental status: Patient is alert and oriented to time, place, person and situation. -neck-limited ROM. Muscle stiffness noted most notably in the trapezius muscles and paraspinal muscles. Incision clean and dry without dehiscence - Speech: Fluent, with normal naming, comprehension, articulation and repetition - CN II-XII: Symmetrical facial movement. Hearing grossly intact. Strong cough, elevates palate, Tongue midline. -Strength: Right arm 4++/5 with majority of weakness in the proximal arm. No spasticity noted. Leftarm 5/5. Lower extremities 5/5 -Sensory: intact light touch. -CV:RRR Assessment: Donya Tobin is a 68 year old y/o female who presents to the outpatient clinic for follow up. In brief, pt underwent planned spine surgery and was found to have right sided weakness post-op 09/2023. CTH and CTA revealed large subgaleal scalp hematoma and MRI revealed small left occipital stroke. Thestroke is likely due to her hx of afib off AC for her sx. Last seen in clinic 11/2023. Since then she has followed up with neurosurgery about her aneurysm and plans to have a MRA in 1 year to monitor(she is going to call and set this up). She underwent a watchman procedure and is now on aspirin and plavix. No new neurological issues but still having some weakness and ability could improve--will order PT/OT. She is having headaches I think due to muscle spasms of her neck. Recommended using muscle relaxer already ordered by another provider. I think therapy and stretching will help this too. We could also have her evaluated for botox to loosen up the muscles but would prefer this be last case scenario if above measures do not help. Her DM, HLD and BP are well controlled. Stroke mechanism: Cardioembolic 2/2 afib off AC Modified Cato Score: 2 0 - No symptoms. 1 - No significant disability. Able to carry out all usual activities, despite some symptoms. 2 - Slight disability. Able to look after own affairs without assistance, but unable to carry out all previous activities. 3 - Moderate disability. Requires some help, but able to walk unassisted. 4 - Moderately severe disability. Unable to attend to own bodily needs without assistance, and unable to walk unassisted. 5 - Severe disability. Requires constant nursing care and attention, bedridden, incontinent. 6 - . Diagnosis: I63.9 Cerebrovascular accident (CVA), unspecified mechanism (HCC) (primary encounter diagnosis) I72.5 Basilar artery aneurysm I48.91 Atrial fibrillation, unspecified type (HCC) Plan: Continue antiplatelet medication--pt on aspirin and plavix Continue high intensity statin therapy--HLD is at goal Referral to PT/OT Referral for botox eval Encouraged patient to make f/u appointment with neurosurgery and MRI for 11/2024 to monitor aneurysm F/u with pcp for routine monitoring of DM, HTN, and HLD Educated pt on healthy lifestyle, medication compliance, and worrisome signs and symptoms to call 911 for. RTC PRN Stroke Risk Factor Modification: - Goal BP <140/90 - Goal HbA1c <7 - Goal LDL <100 - Physical Activity: 3-4x 40min sessions of aerobic exercise per week - Nutrition: diet rich in fruit and vegetables, reduction in sodium intake to <2.4g/d - Tobacco avoidance I personally spent 40 minutes on 05/27/24 preparing to see the patient (e.g. reviewing chart, review of tests), obtaining and/or reviewing the separately obtained history, performing a medically necessary and appropriate examination and evaluation, counseling and educating the patient, documenting inthe patient record, and communicating results to the patient/family/caregiver. documented in this encounter Plan of Treatment Upcoming Encounters Date Type Department Care Team (Late st Contact Info) Description 06/06/2024 8:45 AM CDT Office Visit [facility] - Ophthalmology [address] [place] [phone] Jaylon Marks MD [address] [place] [address] [place] [address] 07/16/2024 2:15 PM CDT Office Visit [facility] - Orthopedics [address] [place] [phone] Ryland Fuentes MD [facility] [place] [address] 07/30/2024 10:20 AM CDT Office Visit [facility] - Family Medicine [address] [facility] [address] [place] [address] [place] [address] [facility] [address] [place] [address] 08/06/2024 10:20 AM CDT Office Visit [facility] - Podiatry [address] [facility] [address] [place] [address] [facility] [address] [facility] [address] [place] [address] 08/16/2024 1:15 PM CDT Office Visit [facility] Heart & Vascular Care [address] [facility] [address] [place] [address] Federico Branham Jr., MD [address] [place] [address] Bahman Ann MD [address] [place] [phone] 11/26/2024 9:30 AM CDT Office Visit [facility] - Neurology [address] [place] [phone] Familia Duncan MD [address] [place] [address] [place] [phone] 01/10/2025 10:00 AM OTR COMPANY DRIVER Office Visit [facility] - GI [address] [facility], [place] [phone] Thais Euceda PA-C [address] [facility] [place] [address] Scheduled Referrals Name Type Priority Associated Diagnoses Orde r Schedule AMB REFERRAL TO [facility] Outpatient Referral Routine Cerebrovascular accident (CVA), unspecified mechanism (HCC) Expected: 05/27/2024, Expires: 05/27/2025 documented as of this encounter Goals Goal Patient Goal Type Associated Problems Recent Progress Patient-Stated? Author Medication Management General On track( 024 9:50 AM OTR COMPANY DRIVER) Andra Fonseca, JAMESON Note: Expected end date: ongoing Interventions: Take all medications as prescribed Let your doctor know right away about any changes in your medications Make sure to request a refill of your medication at least one week prior to your last dose documented as of this encounter Visit Diagnoses Diagnosis Cerebrovascular accident (CVA), unspecified mechanism (HCC)- Primary Basilar artery aneurysm Cerebral aneurysm, nonruptured Atrial fibrillation, unspecified type (HCC) documented in this encounter Additional Health Concerns Infection Onset Date Last Indicated Resolved Time VRE Hx 06/08/2020 06/08/2020 documented as of this encounter Care Teams Animal Assisted Therapist Relationship Specialty Start Date End Date Federico Branham Jr., MD [address] [place] [address] PCP - Strive ACO 10/22/23 Federico Branham Jr., MD [address] [place] [address] PCP - General Family Medicine 12/15/23 Octavia Parry, NOCTURNIST PHYSICIAN-EXT JS DEVELOPER [address] [facility] [address] PCP - Attributed-MSSP 11/21/23 Farrukh Solorzano MD [address] [facility] [address] [place] [phone] (Work) Cardiovascular Disease 08/01/18 Keya Reina MD [address] [place] [address] [address] [place] [address] Gastroenterology 08/01/18 Osmar Zambrano MD [address] [place] [address] [address] [place] [address] Otolaryngology 08/01/18 Francisco Tobin MD [address] [place] [phone] Pulmonary Disease 08/01/18 Jc Moreau MD [address] [facility] [address] [place] [address] Nephrology 08/01/18 [place] [address] [address] Tying Machine Operator Lumber Cardiac Electrophysiology 09/03/18 [place] [address] [phone] Cardiology 04/25/19 Care, [facility] [employer] Metalworker[employer] And In Home Delivery Specialist 08/29/19 documented as of this encounter
--- OUTSIDE RECORDS SUMMARY | 2024-05-27 13:55 | XMS_ITS | Encounter Summary ---
Author Organization [facility] Address [address] [place] [phone] Phone Care Team Providers Care Deputy County Attorney Name Role Phone Unavailable Primary Care Provider Unavailabl e Reason for Visit * Reason Comments Med Refill Encounter Details Date Type Department Care Team (Late st Contact Info) Description 12/15/2021 Refill [facility] Nephrology and Hypertension [address] [facility], [address] [facility] [place] [address] Jc Moerau MD [address] [facility], [address] [facility] [place] [address] Social History Tobacco Use Types Packs/Day Years [...]
--- OUTSIDE RECORDS SUMMARY | 2024-05-27 13:55 | XMS_ITS | Encounter Summary ---
Author Organization [facility] Address [address] [place] [phone] Phone Care Team Providers Care Lugger Name Role Phone Unavailable Primary Care Provider Unavailabl e Reason for Visit * Reason Comments Med Refill Encounter Details Date Type Department Care Team (Late st Contact Info) Description 12/15/2021 Refill [facility] Nephrology and Hypertension [address] [facility], [address] [facility] [place] [address] Jc Moreau MD [address] [facility], [address] Critical access hospital0 [place] [address] Social History Tobacco Use Types Packs/Day Years [...]
--- OUTSIDE RECORDS SUMMARY | 2024-05-27 13:55 | XMS_ITS | Clinical Summary ---
Author Organization [facility] Address [address] [place] [address] Phone Care Team Providers Care Recreation Director Name Role Phone Unavailable Primary Care Provider [...] MG tablet TAKE 1 BY MOUTH DAILY 03/29/2014 Active rosuvastatin (CRESTOR) 40 MG tablet 1 daily 12 04/02/2017 Active ergocalciferol (VITAMIN D2) 81366 units capsule TAKE 1 BY MOUTH EVERY [...] Comments Blood Pressure 156/96 04/23/2018 12:01 AM FABRIC STRETCHER Pulse - - Temperature - - Respiratory Rate - - Oxygen Saturation - - Inhaled Oxygen Concentration - - Weight 94.5 kg (208 lb 4.8 oz) 04/23/2018 12:01 AM FABRIC STRETCHER Height 157.5 cm (5' 2 ) 04/23/2018 12:01 AM FABRIC STRETCHER Body Mass Index 38.1 04/23/2018 12:01 AM FABRIC STRETCHER Plan of Treatment Health Maintenance Due Date Last Done Comments Pneumococcal PPSV23/PCV13 65 + Years / Low and Medium Risk (1 of 4 - PCV) 07/25/2019 Influenza Vaccine (Season Ended) 2024
--- OUTSIDE RECORDS SUMMARY | 2024-05-27 13:55 | XMS_ITS | Encounter Summary ---
Author Organization [facility] Address [address] [place] [address] Care Team Providers Care Rail Crew Member Name Role Phone Farrukh Solorzano MD Unavailable -[phone] Keya Reina MD Unavailable Unavailable Osmar Zambrano MD Unavailable Francisco Tobin MD Unavailable Jc Moreau MD Unavailable Ryland Alves MD Unavailable Lorene Ly MD Unavailable Care, [facility] Kidney Unavailable Carrol Pitts MD, Joseph Theodore Unavailable Carrol Pitts MD, Federico Howe Primary Care Provider Octavia Parry CHEMICAL APPLICATOR-RELOCATION COMMISSIONER Unavailable [phone] Encounter Details Date Type Department Care Team (Latest Contact Info) Description 05/27/2024 Travel Social History Tobacco Use Types Packs/Day Years [...] Recorded Patient Health Questionnaire-2 Score 0 04/12/2024 [facility] - [...] Sex Assigned at Female 02/14/2020 1:06 PM CODING SPEC Gender Identity Female 02/14/2020 1:05 PM CODING SPEC Sexual Orientation Straight 02/14/2020 1: 05 PM CODING SPEC documented as of this encounter Functional Status [...] No 02/10/2024 documented as of this encounter Plan of Treatment Upcoming Encounters Date Type Department Care Team (Late st Contact Info) Description 06/06/2024 8:45 AM CDT Office Visit [facility] - Ophthalmology [address] [place] [phone] Jaylon Marks MD [address] [place] [address] [place] [address] 07/16/2024 2:15 PM CDT Office Visit [facility] - Orthopedics [address] [place] [phone] Ryland Fuentes MD [address] [place] [address] 07/30/2024 10:20 AM CDT Office Visit [facility] - Family Medicine [address] [facility] [address] [place] [address] [place] [address] [place] [phone] 08/06/2024 10:20 AM CDT Office Visit [facility] - Podiatry [address] [place] [address] [place] [address] [facility] [address] [place] [address] 08/16/2024 1:15 PM CDT Office Visit [facility] Heart & Vascular Care [address] [facility] [address] [place] [address] Federico Branham Jr., MD [address] [place] [address] Bahman Ann MD [address] [facility] [address] [place] [phone] 11/26/2024 9:30 AM CDT Office Visit [facility] - Neurology [address] [place] [address], [place] [phone] Familia Duncan MD [address] [place] [address] 1L [place] [phone] 01/10/2025 10:00 AM CODING SPEC Office Visit [facility] - GI [address] [place] [address], [place] [phone] Thais Euceda PA-C [address] [facility] [place]PT [place] [phone] documented as of this encounter Goals Goal Patient Goal Type Associated Problems Recent Progress Patient-Stated? Author Medication Management General On track( 024 9:50 AM CODING SPEC) Andra Fonseca, RN Note: Expected end date: [...] documented as of this encounter Care Teams Rail Crew Member Relationship Specialty Start Date End Date Federico Branham Jr., MD [address] [place] [address] PCP - Strive ACO 10/22/23 Federico Branham Jr., MD [address] [place] [address] PCP - General Family Medicine 12/15/23 Octavia Parry, CHEMICAL APPLICATOR-RELOCATION COMMISSIONER [address] [place] [address] PCP - Attributed-MSSP 11/21/23 Farrukh Solorzano MD [address] [place] [address] [place] [phone] (Work) Cardiovascular Disease 08/01/18 Keya Reina MD [address] [place] [address] 150 [place] [address] Gastroenterology 08/01/18 Osmar Zambrano MD [address] [place] [address] 150 [place] [address] Otolaryngology 08/01/18 Francisco Tobin MD [address] [place] [phone] Pulmonary Disease 08/01/18 Jc Moreau MD [address] [facility] [address] [place] [address] Nephrology 08/01/18 [place] [address] [place] [address] Recreation Therapist Cardiac Electrophysiology 09/03/18 [place] [address] [place] [address] Cardiology 04/25/19 Care, [facility] Kidney Terrazzo HelperPrint Line Inspector 08/29/19 documented as of this encounter
--- OUTSIDE RECORDS SUMMARY | 2024-05-27 13:55 | XMS_ITS | Clinical Summary ---
Author Organization [facility] Address [address] [place] [address] Care Team Providers Care Sample Maker Hand Name Role Phone None, Provider MD Primary [...] 2 (two) times daily. 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
--- OUTSIDE RECORDS SUMMARY | 2024-05-27 13:55 | XMS_ITS | Encounter Summary ---
Author Organization [facility] Address [address] [place] [address] Care Team Providers Care R D Manager Name Role Phone Faith Jalloh Unavailable Savanna Auguste RN Unavailable Eden Godoy Unavailable Unavailable Carrol Pitts MD, Federico Howe Primary Care Provider Farrukh Solorzano MD Unavailable -[phone] Keya Reina MD Unavailable Unavailable Osmar Zambrano MD Unavailable Francisco Tobin MD Unavailable Jc Moreau MD Unavailable [phone] Ryland Alves MD Unavailable Lorene Ly MD Unavailable Carrol Pitts MD, Federico Howe Unavailable Care, [facility] Kidney Unavailable [phone] Protzel, Celi E SULFONATOR OPERATOR Unavailable Bahman Ann MD Unavailable Carrol Pitts MD, Federico Howe Unavailable Bahman Ann MD Unavailable Carrol Pitts MD, Federico Howe Unavailable Celi Carter SULFONATOR OPERATOR Unavailable [phone] Carrol Pitts MD, Federico Howe Unavailable Ryland Alves MD Unavailable [phone] Piotr Alvarez MD Unavailable Carrol Pitts MD, Federico Howe Unavailable Julee Kang MD Unavailable [phone] Carrol Pitts MD, Federico Howe Unavailable Bahman Ann MD Unavailable Oralia Boone RN Unavailable [phone] Francesco Hong MD Unavailable Zoey Boyle TELEPHONE QUOTATION CLERK-DAY WORKER Unavailable Bahman Ann MD Unavailable Mendy Camacho Unavailable Liss Gooedn MD Primary Care Provider [phone] Alycia Holguin RN Unavailable Kylah Solares Unavailable Carrol Pitts MD, Federico Howe Unavailable Carrol Pitts MD, Federico Howe Unavailable Carrol Pitts MD, Federico Howe Primary Care Provider Octavia Parry TELEPHONE QUOTATION CLERK-DAY WORKER Unavailable [phone] Encounter Details Date Type Department Care Team (Late st Contact Info) Description 04/23/2013 [facility] Outpatient Visit [facility] [address] [place] [address] Walter Jorgensen MD [address] [place] [address] Social History Tobacco Use Types Packs/Day Years Used Date Smoking Tobacco: Never Smokeless Tobacco: Never Alcohol Use Standard Drinks/Week Comments No 0 (1 standard drink = 0.6 oz pur e alcohol) Sex and Gender Information Value Date Recorded Sex Assigned at Female 02/14/2020 1:06 PM JOB COMPOSITOR Gender Identity Female 02/14/2020 1:05 PM JOB COMPOSITOR Sexual Orientation Straight 02/14/2020 1: 05 PM JOB COMPOSITOR documented as of this encounter Plan of Treatment Upcoming Encounters Date Type Department Care Team (Late Contact Info) Description 06/06/2024 8:45 AM CDT Office Visit [facility]ician Group - Ophthalmology [address] [place] [phone] Jaylon Marks MD [address] [place] [address] [place] [phone] 07/16/2024 2:15 PM CDT Office Visit [facility] Group - Orthopedics [address] [place] [phone] Ryland Fuentes MD [address] [place] [address] 07/30/2024 10:20 AM CDT Office Visit [facility] - Family Medicine [id number] [place] [address] [place] [address] [place] [address] [phone] 08/06/2024 10:20 AM CDT Office Visit [facility] - Podiatry [address] [facility] [facility] [address] [place] [address] Devika Rolon [facility] [address] [facility] [address] [place] [address] 08/16/2024 1:15 PM CDT Office Visit [facility] Heart & Vascular Care [address] [facility] [address] [place] [address] Federico Branham Jr., MD [address] [place] [address] Bahman Ann MD [address] [facility] [address] [place] [phone] 11/26/2024 9:30 AM CDT Office Visit [facility] - Neurology [address] [place] [address], [place] [phone] Familia Duncan MD [address] [place] [address] 1L [place] [phone] 01/10/2025 10:00 AM JOB COMPOSITOR Office Visit [facility] Physician Group - GI [address] [place] [address], [place] [phone] Thais Euceda PA-C [address] [facility] [place] [phone] documented as of this encounter Visit Diagnoses [...] Under Investigation 02/09/2023 02/09/2023 02/09/2023 2:41 PM JOB COMPOSITOR COVID-19 Under Investigation 10/14/2023 10/14/2023 10/14/2023 11:24 AM CDT COVID-19 Under Investigation 03/16/2024 03/16/2024 03/16/2024 2:43 PM JOB COMPOSITOR COVID-19 Under Investigation 03/16/2024 03/16/2024 03/16/2024 3:58 PM JOB COMPOSITOR Influenza A or B 03/16/2024 03/16/2024 03/23/2024 4:33 AM JOB COMPOSITOR documented as of this encounter Care Teams R D Manager Relationship Specialty Start Date End Date Federico Branham Jr., MD PCP - General Family Medicine 08/01/18 09/24/23 Federico Branham Jr., MD [address] [place] [address] PCP - Attributed-MSSP 03/23/19 11/20/19 Bahman Ann MD [address] [facility] [address] [place] [phone] PCP - Attributed-MSSP 11/21/19 0 Federico Branham Jr., MD [address] [place] [address] PCP - Attributed-MSSP 12/22/19 0 Bahman Ann MD [address] [facility] [address] [place] [phone] PCP - Attributed-MSSP 01/21/20 0 Federico Branham Jr., MD [address] [place] [address] PCP - Attributed-MSSP 02/21/20 10/20/21 Federico Branham Jr., MD [address] [place] [address] PCP - Strive ACO 09/27/21 01/09/22 [place] [address] [phone] PCP - Attributed-MSSP 10/21/21 2 Piotr Alvarez MD [facility] [place] [address] PCP - Strive ACO 01/10/22 03/28/22 Federico Branham Jr., MD [address] [place] [address] PCP - Attributed-MSSP 01/20/22 05/21/23 Julee Kang MD [address] [facility] [address] [place] [address] PCP - Strive ACO 03/29/22 05/20/22 Federico Branham Jr., MD [address] [place] [address] PCP - Strive ACO 05/21/22 08/19/22 Bahman Ann MD [address] [facility] [address] [place] [phone] PCP - Strive ACO 08/20/22 12/20/22 Francesco Hong MD [address] [facility] [place] [phone] PCP - Strive ACO 12/21/22 08/20/23 Zoey Boyle APRN-DAY WORKER [address] [place] [phone] PCP - Attributed-MSSP 05/22/23 08/20/23 Bahman Ann MD [address] [facility] [address] [place] [phone] PCP - Strive ACO 08/21/23 10/21/23 [place] [address] [phone] PCP - General Family Medicine 09/25/23 12/14/23 Federico Branham Jr., MD [address] [place] [address] PCP - Strive ACO 10/22/23 Federico Branham Jr., MD [address] [place] [address] PCP - Attributed-MSSP 08/21/23 11/20/23 Federico Branham Jr., MD [address] [place] [address] PCP - General Family Medicine 12/15/23 Octavia Parry, TELEPHONE QUOTATION CLERK-DAY WORKER [address] [facility] [place] [address] PCP - Attributed-MSSP 11/21/23 Faith Jalloh Welder Production Line GasGas Load Dispatcher 03/17/13 03/12/19 Savanna Auguste, RN Welder Production Line Gas 06/04/13 06/30/16 Eden Godoy Dialysis Liaison 07/01/16 04/10/23 Farrukh Solorzano MD [address] [facility] [address] [place] [address] -x7 (Work) Cardiovascular Disease 08/01/18 Keya Reina MD [address] [place] [address] [address] [place] [address] Gastroenterology 08/01/18 Osmar Zambrano MD [address] [place] [address] 150 [place] [address] Otolaryngology 08/01/18 Francisco Tobin MD [address] [place] [phone] Pulmonary Disease 08/01/18 Jc Moreau MD [address] [facility] [address] [place] [address] Nephrology 08/01/18 [place] [address] [facility] [address] [place] [phone] Tanner Rotary Drum Continuous Process Cardiac Electrophysiology 09/03/18 [place] [address] [facility] [address] [place] [phone] Cardiology 04/25/19 Care, [facility] Kidney Emergency VeterinarianInspector Repairer 08/29/19 Celi Carter, [facility] Outpatient Rehab Nurse Care Management 11/19/19 11/25/19 Celi Carter, SULFONATOR OPERATOR Behavioral Health Therapist Care Management 05/13/20 05/19/20 Oralia Boone, RN Emergency VeterinarianInspector Repairer 12/27/22 12/27/22 Mendy Camacho [address] [facility] [address] [place] [address] Care Coordination Specialist Care Management 09/21/23 09/21/23 Alycia Holguin, RN [address] [facility] [address] Emergency VeterinarianInspector Repairer 10/20/23 10/20/23 Kylah Solares Care Coordination Specialist Care Management 10/25/23 12/01/23 documented as of this encounter
--- OUTSIDE RECORDS SUMMARY | 2024-05-27 13:55 | XMS_ITS | Encounter Summary ---
Author Organization [facility] Address [address] [address] Care Team Providers Care Operating Systems Specialist Name Role Phone Farrukh Solorzano MD Unavailable -[phone] Keya Reina MD Unavailable Unavailable Osmar Zambrano MD Unavailable Francisco Tobin MD Unavailable Jc Moreau MD Unavailable [phone] Ryland Alves MD Unavailable Lorene Ly MD Unavailable Care, [facility] Kidney Unavailable Carrol Pitts MD, Joseph Theodore Unavailable Carrol Pitts MD, Federico Howe Primary Care Provider Octavia Parry PRODUCTION TRUCK DRIVER-MOTION STUDY ENGINEER Unavailable [phone] Encounter Details Date Type Department Care Team (Late st Contact Info) Description 05/06/2024 Telephone [facility] [address] [place] [address] [address] [place] [address] Bahman Ann MD [address] [place] [address] [address] [place] [address] Social History Tobacco Use Types Packs/Day Years [...] Recorded Patient Health Questionnaire-2 Score 0 04/12/2024 [facility] of Occupat ional [facility] - Occupational Stress Questionnaire Answer Date Recorded [...] place to sleep or slept in a retirement (including now)? Patient declined 10/05/2023 Housing Stability [...] time in the past 12 m [facility], were you homeless or living in a retirement (including now)? No 02/10/2024 Education Answer Date Recorded What is the highest level of school you have completed or the highest degree you have received? Doctorate 09/25/2023 Sex and Gender Information Value Date Recorded Sex Assigned at Female 02/14/2020 1:06 PM CORPORATE PLANNING MANAGER Gender Identity Female 02/14/2020 1:05 PM CORPORATE PLANNING MANAGER Sexual Orientation Straight 02/14/2020 1: 05 PM CORPORATE PLANNING MANAGER documented as of this encounter Functional Status [...] No 02/10/2024 documented as of this encounter Miscellaneous Notes * Telephone Encounter - Rodri Little MA - 05/06/2024 3:45 PM CDT Phoned facility to discuss. Will send fax over again for Dr. Ann to sign. * Telephone Encounter - Lizbet Holguin - 05/06/2024 11:47 AM CDT Bienvenido(KD) request update med clearance form fax 1 month ago. documented in this encounter Plan of Treatment Upcoming Encounters Date Type Department Care Team (Late st Contact Info) Description 06/06/2024 8:45 AM CDT Office Visit [facility] - Ophthalmology [address] [place] [phone] Jaylon Marks MD [address] [place] [address] [place] [phone] 07/16/2024 2:15 PM CDT Office Visit [facility] - Orthopedics [address] [place] [phone] Ryland Fuentes MD [address] [place] [address] 07/30/2024 10:20 AM CDT Office Visit [facility] - Family Medicine [phone] [place] [address] [address] [place] [address] [place] [address] [phone] 08/06/2024 10:20 AM CDT Office Visit [facility] - Podiatry [address] [place] [address] [address] [place] [address] Devika Rolon DPM [address] [facility] [place] [address] 08/16/2024 1:15 PM CDT Office Visit [facility] Heart & Vascular Care [address] [place] [address] [address] [place] [address] Federico Branham Jr., MD [address] [place] [address] Bahman Ann MD [address] [place] [phone] 11/26/2024 9:30 AM CDT Office Visit [facility] - Neurology [address] [place] [address], [place] [phone] Familia Duncan MD [address] [place] [address] 1L [place] [address] 01/10/2025 10:00 AM CORPORATE PLANNING MANAGER Office Visit [facility] - GI [address] [place] [address], [place] [address] Thais Euceda PA-C [address] [facility] [place] [address] documented as of this encounter Goals Goal Patient Goal Type Associated Problems Recent Progress Patient-Stated? Author Medication Management General On track( 024 9:50 AM CORPORATE PLANNING MANAGER) Andra Fonseca, RN Note: Expected end date: [...] documented as of this encounter Care Teams Operating Systems Specialist Relationship Specialty Start Date End Date Federico Branham Jr., MD [address] [place] [address] PCP - Strive ACO 10/22/23 Federico Branham Jr., MD [address] [place] [address] PCP - General Family Medicine 12/15/23 Octavia Parry, PRODUCTION TRUCK DRIVER-MOTION STUDY ENGINEER [address] [facility] [place] [address] PCP - Attributed-MSSP 11/21/23 Farrukh Solorzano MD [address] [facility] [address] [place] [address] -x7 (Work) Cardiovascular Disease 08/01/18 Keya Reina MD [address] [place] [address] [address] [place] [address] Gastroenterology 08/01/18 Osmar Zambrano MD [address] [place] [address] 150 [place] [address] Otolaryngology 08/01/18 Francisco Tobin MD [address] [facility] [address] [place] [address] Pulmonary Disease 08/01/18 Jc Moreau MD [address] [facility] [address] [place] [address] Nephrology 08/01/18 [place] [address] [place] [address] Deputy Probation Officer Cardiac Electrophysiology 09/03/18 [place] [address] [place] [address] Cardiology 04/25/19 Care, [facility] Kidney Edi ManagerPrincipal Mechanical Engineer 08/29/19 documented as of this encounter
--- OUTSIDE RECORDS SUMMARY | 2024-05-27 13:55 | XMS_ITS | CONTINUITY OF CARE DOCUMENT ---
Author Name ana, ana Address Unknown Organization [facility] Address [address] [address] [facility] [address] [place] [address] Phone [phone] Care Team Providers Care Clerical Manager Name Role Phone Hank FARRELL, Luis M Unavailable [phone] MENDOZA FARRELL, JAYME K Unavailable MENDOZA FARRELL, JAYME K Unavailable [phone] PROBLEMS Condition Status Date Provider Notes Atrial flutter ? 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 blood pressure, systolic 108 mm[Hg] Shauna jacksonn Durand Inhaled O2 2 L/min [facility] oxygen saturation, oximetry 98 % [facility] pulse rate 80 /min [facility] respiratory rate E&M 16 /min [facility] weight E&M 185 [lb_av] [facility] height E&M 62 [in_i] [facility] Body Mass Index (Ratio) 38.77 kg/m2 Luis M Mckinney MD blood pressure, diastolic 70 mm[Hg] [facility] blood pressure, systolic 118 mm[Hg] Shauna [facility] oxygen saturation, oximetry 96 % [facility] respiratory rate E&M 16 /min [facility] pulse rate 86 /min [facility] weight E&M 212 [lb_av] [facility] height E&M 62 [in_i] [facility] Body Mass Index (Ratio) 36.21 kg/m2 Mert Alves MD blood pressure, diastolic 72 mm[Hg] [facility] blood pressure, systolic 110 mm[Hg] Shauna carballo Resendez oxygen saturation, oximetry 95 % Ranjith Resendez respiratory rate E&M 16 /min Ranjith Resendez pulse rate 85 /min Ranjith Resendez weight E&M 198 [lb_av] Ranjith Resendez height E&M 62 [in_i] [place] Resendez Body Mass Index (Ratio) 36.21 kg/m2 Mert Alves MD blood pressure, diastolic 60 mm[Hg] astity Adama blood pressure, systolic 104 mm[Hg] Le stity Adama respiratory rate E&M 16 /min Chastit y Adama weight E&M 198 [lb_av] [facility] 87 /min [facility], oximetry 96 % [facility] height E&M 62 [in_i] [facility] Body Mass Index (Ratio) [...] Mcrae respiratory rate E&M 16 /min [place] pulse rate 92 /min Jed Haronn weight E&M 189 [lb_av] Jed Haronn height E&M 62 [in_i] Jed Mcrae Body Mass Index (Ratio) 33.47 kg/m2 Mert Alves MD blood pressure, diastolic 58 mm[Hg] Delores huertalesia Campbell blood pressure, systolic 102 mm[Hg] Nevin don Adrian blood pressure, resting No Mtichell graf Adrian pulse rate 76 /min Jessicalesia [...] s Fiordaliza Nora 2 coagulation managed by Keay Olivia RN 2 international normalized ratio (INR) [...] by mouth, 3x daily before meals Jessica Capmbell OXYCODONE-ACETAM INOPHEN 5-325 MG ORAL TABLET completed [...] Jessica Campbell ELIQUIS 2.5 MG ORAL TABLET wfpsakl-ns-s rror one tablet twice daily - Jessica [...] M Mckinney MD smoking status Never smoker [place] [facility] smoking status Never smoker Ranjith [...] Payer name Policy type / Coverage type Grady red green [place] Medicare [id number] HEALTHCARE AND FAMILY SERVICES Medicaid 0 [id number] [facility] [id number] ADVANCE DIRECTIVES Name Date LIVING WILL ON FILE TREATMENT PLAN Date Name Performer Cardiology: O n dialysis. Being evaluated for renal transplant at [facility] Luis M Mckinney MD Cardiology: I n [...] dialysis. Being evaluated for renal transplant at [facility] Luis M Mckinney MD Cardiology: N ow on O2. Luis M Mckinney MD Cardiology: O n toprol XL and entresto. Luis M Mckinney MD Cardiology:On toprol XL. Entrest o added Luis M Mckinney MD Cardiology:On dialys is. Being evaluated for renal transplant at [facility] Luis M Mckinney MD Cardiology:In sinus rhythm. Is S /P ablation. EP following Luis M Mckinney MD Date Name PROTHROMBIN TIME WIT H INR HISTORY OF PROCEDURES Procedure Date Procedure Name Provider Procedure Notes S tatus EKG Ryland Alves MD comp leted SNOMED-CT: [id number] Current Medications Documented Ryland Alves MD completed EKG Ryland Alves MD comp leted SNOMED-CT: [id number] Current Medications Documented Ryland Alves MD completed [facility] - Tech Ryland Alves MD completed [facility] - Prof Ryland Alves MD completed EKG Ryland Alves MD comp leted SNOMED-CT: [id number] Current Medications Documented Ryland Alves MD completed Protravinder Alves MD comp leted Protravinder Alves MD comp leted Protravinder Alves MD comp leted SNOMED-CT: [id number] Current Medications Documented Ryland Alves MD completed EKG Ryland Alves MD comp leted Protravinder Alves MD comp leted Protravinder Alves MD comp leted EKG Ryland Alves MD comp leted SNOMED-CT: [id number] Current Medications Documented Ryland Alves MD completed
--- OUTSIDE RECORDS SUMMARY | 2024-05-27 13:55 | XMS_ITS | Encounter Summary ---
Author Organization [facility] Address [facility]ly [facility] [place] [address] Care Team Providers Care Home Office Representative Name Role Phone None, Provider MD Primary Care Provider Unavaila ble Reason for Referral * Surgical (Routine) - Closed Specialty Diagnoses / Procedures Referred By Lee Ann lund Referred To Contact Procedures Case request operating room: INJECTION EPIDURAL LUMBAR INTERLAMINAR L2-3 Mona Valencia APNP Phone: tel: fax: Referral ID Status Reason Start Date Expiration Date Visits Re quested Visits Authorized [id number] Closed 09/27/2021 09/27/2022 1 1 Encounter Details Date Type Department Care Team (Late st Contact Info) Description 09/27/2021 Prep for Procedure [facility] [place] [address] [id number] Mona Valencia APNP [address] [place] [phone] Social History Tobacco Use Types Packs/Day Years Used Date Smoking Tobacco: Never Smokeless Tobacco: Never Alcohol Use Standard Drinks/Week Comments Not Currently 0 (1 standard drink = 0.6 oz pur e alcohol) Comments No Sex and Gender Information Value Date Recorded Sex Assigned at Not on file Legal Sex Female 2:53 PM GANTRY RIGGER Gender Identity Not on file Sexual Orientation Not on file 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
[2024-05-27] MEDS: MIDAZOLAM 100MG/NS 100ML(*CRX) 100 MG/100 ML BAG IV CONT (14:08)
[2024-05-27] MEDS: FENTANYL 2,500MCG/NS250ML(*CRX 2,500 MCG/250 ML BAG IV CONT ×2 (14:13→16:30)
[2024-05-27] MEDS: CEFEPIME 2 GM/NS 50 ML 2 GM/50 ML BAG IVPB (14:52)
--- NOTE | 2024-05-27 14:55 | P.CONCA_ITS ---
Assessment and Plan Assessment and plan (1) Non-ischemic cardiomyopathy: Code(s): I42.8 - Other cardiomyopathies Status: Acute (2) Cardiac arrest with ventricular fibrillation: Code(s): I46.9 - Cardiac arrest, cause unspecified; I49.01 - Ventricular fibrillation Status: Acute (3) Paroxysmal atrial fibrillation: Code(s): I48.0 - Paroxysmal atrial fibrillation Status: Acute Plan 68-year-old woman with ESRD on HD, congestive heart failure (LVEF 30-35%), paroxysmal atrial fibrillation status post Watchman now on dual anti-platelet therapy, diabetes, and LENORA was in her car with her family after completing hemodialysis when she suddenly went into cardiac arrest cardiac arrest - her post-rosc EKG showed atrial fibrillation with baseline left bundle-branch block similar to previous EKGs - continue supportive care however with a down time of 1 hour and a presenting lactate of 11, prognosis is grim - recommend defining her neurological status - would continue amiodarone drip chronic systolic heart failure - nonischemic with cardiac catheterization and 2022 showing nonobstructive coronary artery disease - hold off on guideline directed medical therapy at this time - if she makes meaningful recovery, would recommend transfer for consideration of ICD implantation paroxysmal atrial fibrillation status post Watchman - she is on aspirin and Plavix outpatient History of Present Illness History of Present Illness Consult date/time: 05/27/24 14:55 Requesting physician: Bahman Gordon MD Reason For Visit: Cardiac arrest Narrative: 68-year-old woman with ESRD on HD, congestive heart failure (LVEF 30-35%), paroxysmal atrial fibrillation status post Watchman now on dual anti-platelet therapy, diabetes, and LENORA was in her car with her family after completing hemodialysis when she suddenly went into cardiac arrest. Upon EMS CPR was initiated and patient continued to have compressions upon arrival in the emergency room. She has been having ventricular fibrillation rhythm throughout her code with 1 episode of PEA. She also received bolus doses of amiodarone. Her total time down was about an hour. She was previously functionally independent per documentation from previous admissions. Currently she is intubated and sedated without any pressor requirements. Review of Systems 2 Review of Systems: ROS unobtainable: Yes unobtainable due to endotracheal tube and unobtainable due to medical condition [facility] Past Medical History Medical History (Updated 05/27/24 @ 15:10 by Bahman Gordon MD) Hx of completed stroke 10/05/23 small left occipital lobe stroke after c-spine surgery Chronic hypotension Chronic obstructive pulmonary disease Hypotension On midodrine. Chronic anticoagulation Renal osteodystrophy Combined systolic and diastolic congestive heart failure Echo 10/2012: severe LV enlargement, moderate LV dysfunction with wall motion abnormality at the inferior basal segment, EF 44%, grade 2 diastolic dysfunction. Non-ischemic cardiomyopathy Negative cardiac catheterization showing no obstructive coronary disease in 2003 at [facility]. EF at that time was 20% but has improved to 54% in 02/2015. Chronic anemia History of blood transfusions. Hypothyroidism Gout Kidney stones Peptic ulcer (07/2003) Gastroesophageal reflux disease Deep venous thrombosis (02/2013) Paroxysmal atrial fibrillation s/p Watchman Obstructive sleep apnea End-stage renal disease on hemodialysis (09/2009) Type II diabetes mellitus Complicated by peripheral neuropathy and nephropathy. Asthma Diverticulosis Anxiety Hyperlipidemia Surgical History Surgical History (Updated 03/25/24 @ 12:52 by Saul العلي MD) Hx of cervical spine surgery C3-C6 laminectomies, C2-C7 instrumented posterior spinal fusion on 10/05/23 at [facility] Presence of Watchman left atrial appendage closure device 02/08/24 History of colonoscopy with polypectomy History of cardiac catheterization (08/20/13) Normal coronary arteries per Dr. Oliveros at [facility]. Status post creation of arteriovenous fistula Left forearm. History of parathyroidectomy History of cystoscopy (03/2012) History of sleeve gastrectomy (2013) History of cardiac radiofrequency ablation (1993) For SVT. History of mandibular surgery (1987) For TMJ. History of angioplasty History of myomectomy History of cholecystectomy (2014) History of section History of hysterectomy (1993) Family History Family History Mother Hypertension Family history of congestive heart failure Family history of congenital heart disease Family history of arthritis Family history of kidney disease Family history of chronic obstructive pulmonary disease Father Carcinoma of colon Sibling Family history of diabetes mellitus in first degree relative Grandparent Family history of congestive heart failure Diabetes mellitus Father Carcinoma of colon Mother Diabetes mellitus Acute myocardial infarction Hypertension Hyperlipidemia Grandparent Diabetes mellitus Acute myocardial infarction Stomach cancer Other Family history of cardiovascular disease Social History Social History (Updated 03/25/24 @ 12:45 by Saul العلي MD) Social History: Lives alone. Never smoker. No alcohol use. No drug use or hx of drug use. No pets. Surrogate decision maker: Sara Tobin Code status: Full code. Smoking status: Never smoker Second hand tobacco smoke exposure: No Alcohol intake: never Substance use: never Substance use type: does not use Do You Feel Safe in your Home?: Yes Lack of Transportation: No Lack of Food: Sometimes True Current Housing: I Have Housing Concerned About Future Housing: No Difficulty Paying Gas/Electric Bills: No Difficulty Paying for Meds: No Currently Unemployed: No Education: Decline to Answer Difficulty w/ Childcare or Family Care: No Additional living arrangements comments: Lives in [place]. 3 grown children. 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 Spiritual care concerns: No Meds Home Medications and Allergies Home Medications ?Medication ?Instructions ?Recorded ?Confirmed ?Type calcium acetate(phosphat bind) 667 667 mg PO BIDWM #60 tabs 04/25/23 03/25/24 Rx mg tablet lidocaine 4 % topical patch 1 patch topical DAILY #30 ea 04/25/23 03/25/24 Rx (Lidocaine Pain Relief) vitamin B complex-vitamin C-folic 1 tablet PO DAILY #30 tabs 04/25/23 03/25/24 Rx acid 0.8 mg tablet (Dialyvite 800) acetaminophen 500 mg tablet 500 mg PO QID PRN Fever Or Pain 10/18/23 03/25/24 History cholecalciferol (vitamin D3) 25 3,000 unit PO DAILY 10/18/23 03/25/24 History mcg (1,000 unit) tablet (Vitamin D3) cinacalcet 30 mg tablet (Sensipar) 60 mg PO QMWF 10/18/23 03/25/24 History fluoxetine 10 mg capsule (Prozac) 10 mg PO DAILY 10/18/23 03/25/24 History midodrine 5 mg tablet 15 mg PO TIDWMEAL 10/18/23 03/25/24 History atorvastatin 40 mg tablet 40 mg PO HS 30 days #30 tabs 11/03/23 03/25/24 Rx digoxin 125 mcg (0.125 mg) tablet 125 mcg PO SuTh 30 days #9 tabs 11/03/23 03/25/24 Rx fluticasone propionate 50 2 spray intranasal DAILY 30 days 11/03/23 03/25/24 Rx mcg/actuation nasal #16 grams spray,suspension latanoprost 0.005 % eye drops 1 drp EACH EYE HS 30 days #2.5 mL 11/03/23 03/25/24 Rx (Xalatan) montelukast 10 mg tablet 10 mg PO HS 30 days #30 tabs 11/03/23 03/25/24 Rx (Singulair) oxycodone 5 mg tablet 5 mg PO Q6H PRN Pain Rated 4-10 11/03/23 03/25/24 Rx #28 tabs peg [id number] 1 1 drp EACH EYE TID PRN Dry Eyes 30 11/03/23 03/25/24 Rx %-0.2 %-0.2 % eye drops days #15 mL (Artificial Tears ([id number])) aspirin 81 mg tablet,delayed 81 mg PO DAILY 03/25/24 03/25/24 History release (Adult Aspirin Regimen) gabapentin 100 mg capsule 200 mg PO BID 03/25/24 03/25/24 History lanthanum 1,000 mg chewable tablet 1,000 mg PO .with meals 03/25/24 03/25/24 History omeprazole 20 mg capsule,delayed 20 mg PO BID 03/25/24 03/25/24 History release clopidogrel 75 mg tablet 75 mg PO DAILY 03/28/24 03/28/24 History albuterol sulfate 1.25 mg/3 mL 1.25 mg (3 mL) inhalation Q4H PRN 04/02/24 Rx solution for nebulization shortness of breath or wheezing #90 mL albuterol sulfate 90 mcg/actuation 2 inh inhalation Q4H PRN shortness 04/02/24 Rx aerosol inhaler (Ventolin HFA) of breath or wheezing #8.5 grams fluticasone propionate 220 2 puff inhalation Q12H #12 grams 04/02/24 Rx mcg/actuation HFA aerosol inhaler levofloxacin 500 mg tablet 500 mg PO DAILY 1 day #1 tablet 04/02/24 Rx tizanidine 4 mg capsule 4 mg PO QHS PRN muscle spasticity 05/01/24 Rx #30 caps Allergies Allergy/AdvReac Type Severity Reaction Status Date / Time lisinopril Allergy Unknown Unknown Verified 03/25/24 16:07 propoxyphene Allergy Unknown Unknown Verified 03/25/24 16:07 valsartan Allergy Unknown lost voice Verified 03/25/24 16:07 Vital Signs Vital Signs - 24 hr 05/27/24 11:45 05/27/24 11:45 05/27/24 12:32 Temperature Pulse Rate 89 Respiratory Rate 19 Blood Pressure 134/121 H Pulse Oximetry 97 97 97 Oxygen Delivery Bag Valve Mask Bag Valve Mask Fraction of Inspired Oxygen 05/27/24 12:38 05/27/24 12:40 05/27/24 12:55 Temperature Pulse Rate 89 89 Respiratory Rate 14 Blood Pressure 85/52 L Pulse Oximetry 95 97 Oxygen Delivery Mechanical Ventilation Mechanical Ventilation Fraction of Inspired Oxygen 50 05/27/24 14:05 05/27/24 14:08 05/27/24 14:13 Temperature Pulse Rate 107 H 109 H 110 H Respiratory Rate 27 H 22 H Blood Pressure Pulse Oximetry 100 Oxygen Delivery Mechanical Ventilation Fraction of Inspired Oxygen 50 05/27/24 14:26 05/27/24 14:35 05/27/24 14:37 Temperature 36.8 C Pulse Rate 109 H 112 H 112 H Respiratory Rate 26 H 28 H 25 H Blood Pressure 182/162 H Pulse Oximetry 100 Oxygen Delivery Fraction of Inspired Oxygen 05/27/24 14:40 Temperature Pulse Rate 114 H Respiratory Rate 27 H Blood Pressure Pulse Oximetry Oxygen Delivery Fraction of Inspired Oxygen Exam 2 Const: Other: Ill-appearing Neck: Neck: no JVD Resp: Other: ventilatory noise Cardio: Rate: tachycardic Rhythm: regular rhythm Results Labs and Meds 05/27/24 12:52 05/27/24 12:52 Lab results: Cardiac Enzymes 05/27/24 Range/Units 12:52 AST 271 H (14-36) U/L Troponin I 0.131 H* (0.000-0.034) ng/mL Coagulation 05/27/24 Range/Units 12:52 PT 15.2 H (11.1-14.7) Seconds APTT 35.9 (22.3-36.8) Seconds CBC 05/27/24 Range/Units 12:52 WBC 20.8 H (4.5-10.0) K/mm3 RBC 3.57 L (4.2-5.4) M/mm3 Hgb 9.3 L (12.0-15.0) g/dL Hct 32.9 L (37.0-47.0) % Plt Count 352 (150-375) k/mm3 Lymph # (Auto) 8.30 H (0.9-3.2) K/mm3 [place] # (Auto) 0.7 H (0.1-0.6) K/mm3 Eos # (Auto) 0.2 (0-0.3) K/mm3 Baso # (Auto) 0.1 (0.0-0.1) K/mm3 Comprehensive Metabolic Panel 05/27/24 Range/Units 12:52 Sodium 139 (137-145) mmol/L Potassium 4.2 (3.4-5.0) mmol/L Chloride 95 L (98-107) mmol/L Carbon Dioxide 22 (22-30) mmol/L BUN 20 H D (7-17) mg/dL Creatinine 5.62 H (0.7-1.0) mg/dL Glucose 276 H (65-110) mg/dL Calcium 11.2 H (8.4-10.2) mg/dL AST 271 H (14-36) U/L ALT 135 H (6-35) U/L Alkaline Phosphatase 142 H (38-126) U/L Total Protein 7.0 (6.3-8.2) g/dL Albumin 3.7 (3.5-5.1) g/dL Intake and Output 05/26/24 05/27/24 05/27/24 23:59 07:59 15:59 Intake Total 1.8 Balance 1.8 Intake: IV 1.8 Fentanyl 2,500Mcg/Rd595ny(*Crx 1.3 2,500 mcg In 250 ml @ 25 MCG/HR 2.5 mls/hr IV CONT .Q72H STA Rx#:[id number] Midazolam 100Mg/Ns 100Ml(*Crx) 0.5 100 mg In 100 ml @ 1 MG/HR 1 mls/hr IV CONT .Q72H STA Rx#: [id number] Patient Weight 05/27/24 23:59 Weight 72.4 kg
--- NOTE | 2024-05-27 14:55 | P.HP_ITS ---
H&P: HPI History of Present Illness Date/Time: 05/27/24 18:00 Chief Complaint: Cardiac arrest. Narrative: This is a 68-year-old female with history of stroke, end-stage renal disease on hemodialysis, nonischemic cardiomyopathy with an ejection fraction of 25-30%, paroxysmal atrial fibrillation status post Watchman, type 2 diabetes mellitus which appears to be diet controlled, obstructive sleep apnea, anemia, and peptic ulcers who presented to the emergency department via EMS in cardiac arrest. The following history is obtained from her [facility] medical records as well as information provided by her family members. She had a full dialysis treatment this morning and a six-month stroke follow-up appointment with her neurologist at [facility]. On the ride home, the patient reportedly went unresponsive and her daughter called 911. CPR was initiated on EMS arrival with an initial rhythm of ventricular fibrillation. She received multiple shocks for persistent ventricular fibrillation in addition to epinephrine and chest compressions. She was intubated in the field and an IO was placed. There were no reports of any recent illnesses the patient and she had not been complaining of any chest pain or shortness a breath. In the ED: ACLS protocol was continued and she received numerous shocks for ventricular fibrillation in addition to epinephrine, 3 amps of sodium bicarbonate, 1 amp of calcium gluconate, and a total 450 mg of amiodarone before return of spontaneous circulation. Total down time was summer between 45 and 60 minutes. Labs were significant for WBC count of 20.8, hemoglobin 9.3, potassium 4.2, and gap 22, BUN 20, creatinine 5.62, lactic acid 11.3, AST 271, ALT 135, alkaline phosphatase 142, troponin 0.131, proBNP greater than 30,000. Head CT showed no acute process in age related findings. CTA of the chest, abdomen, and pelvis showed diffuse bilateral lung disease favoring multifocal pneumonia and radiographically uncomplicated distal descending colon diverticulitis. She was started on antibiotics and an amiodarone drip and is being admitted to the ICU in this setting. At the time my evaluation she is exhibiting signs of posturing with and without stimuli. A central line was inserted upon arrival to the ICU as she arrived without a working IV and only and IO in place. Review of Systems Review of Systems: Unable to obtain at this time. [facility] Past Medical History Medical History (Updated 05/27/24 @ 23:51 by Vidya Cochran PA-C) Cerebrovascular accident (10/05/23) small left occipital lobe infarct following cervical spine surgery Chronic hypotension on midodrine Chronic obstructive pulmonary disease Chronic anticoagulation Renal osteodystrophy Combined systolic and diastolic congestive heart failure Echo 10/2012: severe LV enlargement, moderate LV dysfunction with wall motion abnormality at the inferior basal segment, EF 44%, grade 2 diastolic dysfunction. Non-ischemic cardiomyopathy Negative cardiac catheterization showing no obstructive coronary disease in 2003 at [facility]. EF at that time was 20% but has improved to 54% in 02/2015. Chronic anemia History of blood transfusions. Hypothyroidism Gout Kidney stones Peptic ulcer (07/2003) Gastroesophageal reflux disease Deep venous thrombosis (02/2013) Paroxysmal atrial fibrillation s/p Watchman Obstructive sleep apnea End-stage renal disease on hemodialysis (09/2009) Type II diabetes mellitus Diet-controlled, Complicated by peripheral neuropathy and nephropathy. Asthma Diverticulosis Anxiety Hyperlipidemia Surgical History Surgical History Hx of cervical spine surgery C3-C6 laminectomies, C2-C7 instrumented posterior spinal fusion on 10/05/23 at [facility] Presence of Watchman left atrial appendage closure device 02/08/24 History of colonoscopy with polypectomy History of cardiac catheterization (08/20/13) Normal coronary arteries per Dr. Oliveros at [facility]. Status post creation of arteriovenous fistula Left forearm. History of parathyroidectomy History of cystoscopy (03/2012) History of sleeve gastrectomy (2013) History of cardiac radiofrequency ablation (1993) For SVT. History of mandibular surgery (1987) For TMJ. History of angioplasty History of myomectomy History of cholecystectomy (2014) History of section History of hysterectomy (1993) Family History Family History Mother Hypertension Family history of congestive heart failure Family history of congenital heart disease Family history of arthritis Family history of kidney disease Family history of chronic obstructive pulmonary disease Father Carcinoma of colon Sibling Family history of diabetes mellitus in first degree relative Grandparent Family history of congestive heart failure Diabetes mellitus Father Carcinoma of colon Mother Diabetes mellitus Acute myocardial infarction Hypertension Hyperlipidemia Grandparent Diabetes mellitus Acute myocardial infarction Stomach cancer Other Family history of cardiovascular disease Social History Social History (Updated 05/27/24 @ 23:38 by Vidya Cochran PA-C) Social History: Surrogate decision maker: Sara Tobin Code status: Full code. Smoking status: Never smoker Second hand tobacco smoke exposure: No Alcohol intake: never Substance use: never Substance use type: does not use Do You Feel Safe in your Home?: Yes Lack of Transportation: No Lack of Food: Sometimes True Current Housing: I Have Housing Concerned About Future Housing: No Difficulty Paying Gas/Electric Bills: No Difficulty Paying for Meds: No Currently Unemployed: No Education: Decline to Answer Difficulty w/ Childcare or Family Care: No Additional living arrangements comments: Lives in [place]. 3 grown children. Additional occupation/education comments: [employer]. Spiritual care concerns: No Meds Home Medications and Allergies Home Medications ?Medication ?Instructions ?Recorded ?Confirmed ?Type calcium acetate(phosphat bind) 667 667 mg PO BIDWM #60 tabs 04/25/23 05/27/24 Rx mg tablet lidocaine 4 % topical patch 1 patch topical DAILY #30 ea 04/25/23 05/27/24 Rx (Lidocaine Pain Relief) vitamin B complex-vitamin C-folic 1 tablet PO DAILY #30 tabs 04/25/23 05/27/24 Rx acid 0.8 mg tablet (Dialyvite 800) acetaminophen 500 mg tablet 500 mg PO QID PRN Fever Or Pain 10/18/23 05/27/24 History cholecalciferol (vitamin D3) 25 3,000 unit PO DAILY 10/18/23 05/27/24 History mcg (1,000 unit) tablet (Vitamin D3) cinacalcet 30 mg tablet (Sensipar) 60 mg PO QMWF 10/18/23 05/27/24 History fluoxetine 10 mg capsule (Prozac) 10 mg PO DAILY 10/18/23 05/27/24 History midodrine 5 mg tablet 15 mg PO TIDWMEAL 10/18/23 05/27/24 History atorvastatin 40 mg tablet 40 mg PO HS 30 days #30 tabs 11/03/23 05/27/24 Rx digoxin 125 mcg (0.125 mg) tablet 125 mcg PO SuTh 30 days #9 tabs 11/03/23 05/27/24 Rx fluticasone propionate 50 2 spray intranasal DAILY 30 days 11/03/23 05/27/24 Rx mcg/actuation nasal #16 grams spray,suspension latanoprost 0.005 % eye drops 1 drp EACH EYE HS 30 days #2.5 mL 11/03/23 05/27/24 Rx (Xalatan) montelukast 10 mg tablet 10 mg PO HS 30 days #30 tabs 11/03/23 05/27/24 Rx (Singulair) oxycodone 5 mg tablet 5 mg PO Q6H PRN Pain Rated 4-10 11/03/23 05/27/24 Rx #28 tabs peg [id number] 1 1 drp EACH EYE TID PRN Dry Eyes 30 11/03/23 05/27/24 Rx %-0.2 %-0.2 % eye drops days #15 mL (Artificial Tears ([id number])) aspirin 81 mg tablet,delayed 81 mg PO DAILY 03/25/24 05/27/24 History release (Adult Aspirin Regimen) gabapentin 100 mg capsule 200 mg PO BID 03/25/24 05/27/24 History lanthanum 1,000 mg chewable tablet 1,000 mg PO .with meals 03/25/24 05/27/24 History omeprazole 20 mg capsule,delayed 20 mg PO BID 03/25/24 05/27/24 History release clopidogrel 75 mg tablet 75 mg PO DAILY 03/28/24 05/27/24 History albuterol sulfate 1.25 mg/3 mL 1.25 mg (3 mL) inhalation Q4H PRN 04/02/24 05/27/24 Rx solution for nebulization shortness of breath or wheezing #90 mL albuterol sulfate 90 mcg/actuation 2 inh inhalation Q4H PRN shortness 04/02/24 05/27/24 Rx aerosol inhaler (Ventolin HFA) of breath or wheezing #8.5 grams fluticasone propionate 220 2 puff inhalation Q12H #12 grams 04/02/24 05/27/24 Rx mcg/actuation HFA aerosol inhaler tizanidine 4 mg capsule 4 mg PO QHS PRN muscle spasticity 05/01/24 05/27/24 Rx #30 caps benzonatate 100 mg capsule 100 mg PO Q6H PRN cough 05/27/24 05/27/24 History metoprolol succinate 25 mg 25 mg PO DAILY 05/27/24 05/27/24 History tablet,extended release 24 hr Allergies Allergy/AdvReac Type Severity Reaction Status Date / Time lisinopril Allergy Unknown Unknown Verified 03/25/24 16:07 propoxyphene Allergy Unknown Unknown Verified 03/25/24 16:07 valsartan Allergy Unknown lost voice Verified 03/25/24 16:07 Vital Signs Vital Signs - 24 hr 05/27/24 11:45 05/27/24 11:45 05/27/24 12:32 Temperature Pulse Rate 89 Respiratory Rate 19 Blood Pressure 134/121 H Pulse Oximetry 97 97 97 Oxygen Delivery Bag Valve Mask Bag Valve Mask Fraction of Inspired Oxygen 05/27/24 12:38 05/27/24 12:40 05/27/24 12:55 Temperature Pulse Rate 89 89 Respiratory Rate 14 Blood Pressure 85/52 L Pulse Oximetry 95 97 Oxygen Delivery Mechanical Ventilation Mechanical Ventilation Fraction of Inspired Oxygen 50 05/27/24 14:05 05/27/24 14:08 05/27/24 14:13 Temperature Pulse Rate 107 H 109 H 110 H Respiratory Rate 27 H 22 H Blood Pressure Pulse Oximetry 100 Oxygen Delivery Mechanical Ventilation Fraction of Inspired Oxygen 50 05/27/24 14:26 05/27/24 14:35 05/27/24 14:37 Temperature 98.2 F Pulse Rate 109 H 112 H 112 H Respiratory Rate 26 H 28 H 25 H Blood Pressure 182/162 H Pulse Oximetry 100 Oxygen Delivery Fraction of Inspired Oxygen 05/27/24 14:40 Temperature Pulse Rate 114 H Respiratory Rate 27 H Blood Pressure Pulse Oximetry Oxygen Delivery Fraction of Inspired Oxygen Exam Narrative: General: Acutely ill-appearing female sedated and intubated on mechanical ventilation. Weight: 72.5 kg. BMI: 29.2. HEENT: Pupils are approximately 2 mm and are sluggishly reactive. Eyes fall back. Sclera anicteric. ET and OG tubes in place. Neck: Supple. No obvious JVD. Respiratory: Intubated on mechanical ventilation. Over breathing the vent. Coarse lung sounds heard anteriorly and at the flanks. Cardiovascular: Regular rate and rhythm with occasional ectopy. Gastrointestinal: Abdomen is soft and nondistended with positive bowel sounds. Skin: Warm and dry. Capillary refill approximately 3 seconds. Extremities: No cyanosis, clubbing, or edema. Peripheral pulses palpable. Neurological: Exhibits decerebrate posturing randomly and with stimuli. Toes are downgoing. Occasionally appears to gag. Psychiatric: Unable to assess. H&P: Results Labs Labs: Short CBC 05/27/24 Range/Units 12:52 WBC 20.8 H (4.5-10.0) K/mm3 Hgb 9.3 L (12.0-15.0) g/dL Hct 32.9 L (37.0-47.0) % Plt Count 352 (150-375) k/mm3 BMP 05/27/24 12:52 Sodium 139 Potassium 4.2 Chloride 95 L Carbon Dioxide 22 BUN 20 H D Creatinine 5.62 H Glucose 276 H Calcium 11.2 H Cardiac Enzymes 05/27/24 Range/Units 12:52 Troponin I 0.131 H* (0.000-0.034) ng/mL Liver Function 05/27/24 Range/Units 12:52 Total Bilirubin 0.8 (0.2-1.3) mg/dL AST 271 H (14-36) U/L ALT 135 H (6-35) U/L Alkaline Phosphatase 142 H (38-126) U/L Albumin 3.7 (3.5-5.1) g/dL Imaging Abdomen X-Ray 05/27/24 13:15 IMPRESSION: 1: NG tube tip in the stomach. Chest X-Ray 05/27/24 13:16 IMPRESSION: 1. Bilateral upper and lower lobe pneumonia. Underlying pulmonary edema is also seen. Head CT 05/27/24 14:03 IMPRESSION: 1. No acute intracranial process. 2. Age-related changes including mild diffuse volume loss and unchanged mild scattered nonspecific cerebral white matter hypoattenuation consistent with chronic small vessel ischemic disease. Chest/Abdomen/Pelvis CTA 05/27/24 14:18 IMPRESSION: 1. Diffuse bilateral lung disease with most dense consolidation in the dependent right lower lobe. Would favor multifocal pneumonia over pulmonary edema. 2. Radiographically uncomplicated distal descending colon diverticulitis. 3. Endotracheal tube tip at the entrance to the left mainstem bronchus. Blake mmend withdrawal by 3 cm. 4. Cardiomegaly with left heart predominance. 5. Enlargement of the central pulmonary arteries consistent with pulmonary arterial hypertension. No evident pulmonary embolism. 5. Small sliding-type hiatal hernia. 6. Severe bilateral renal atrophy. 7. 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 Assessment and Plan Assessment and plan (1) Cardiac arrest with ventricular fibrillation: Code(s): I46.9 - Cardiac arrest, cause unspecified; I49.01 - Ventricular fibrillation Status: Acute Assessment and Plan: Patient suddenly went unresponsive and was found to be in pulseless ventricular fibrillation on EMS arrival. She received multiple shocks, epinephrine, calcium chloride, sodium bicarbonate, and a total of 450 mg of amiodarone before return of spontaneous circulation. Total down time was between 45 and 60 minutes. No known history of coronary disease. She does have a history of nonischemic cardiomyopathy with a previous EF of 25-30%. * Cardiology consulted and they recommend to continue amiodarone infusion. * Trend serial troponins and check echocardiogram. * Exam concerning for anoxic brain injury; she has been started on therapeutic hypothermia protocol. (2) Acute respiratory failure with hypoxia: Code(s): J96.01 - Acute respiratory failure with hypoxia Status: Acute Assessment and Plan: Patient was intubated in the field on 05/27/2024. * Chest CTA was negative for pulmonary embolism but did show findings of multifocal pneumonia and possible edema. * Continue empiric antibiotics for possible aspiration pneumonia including cefepime, metronidazole, and vancomycin. * Ventilator management per high school combination teacher; p.r.n. bronchodilators ordered. (3) Multifocal pneumonia: Code(s): J18.9 - Pneumonia, unspecified organism Status: Acute Assessment and Plan: Chest CTA shows evidence of multifocal pneumonia with possible edema as well. * Continue cefepime, metronidazole, and vancomycin to cover for possible aspiration pneumonia. * Sputum culture ordered. (4) Non-ischemic cardiomyopathy: Code(s): I42.8 - Other cardiomyopathies Status: Acute Assessment and Plan: Previous echocardiogram showed ejection fraction of 25-30% as well as diastolic dysfunction. (5) Paroxysmal atrial fibrillation: Code(s): I48.0 - Paroxysmal atrial fibrillation Status: Acute Assessment and Plan: She is not on anticoagulation due to history of GI bleed and is status post Watchman procedure last year. * Currently on amiodarone infusion for ventricular fibrillation as detailed above. * Continue aspirin and clopidogrel. (6) End-stage renal disease on hemodialysis: Onset Date: 09/2009 Code(s): N18.6 - End stage renal disease; Z99.2 - Dependence on renal dialysis Status: Acute Assessment and Plan: Patient completed a full dialysis session today and has no electrolyte abnormalities. * Nephrology consulted for hemodialysis. (7) Chronic anemia: Code(s): D64.9 - Anemia, unspecified Status: Chronic Assessment and Plan: Hemoglobin and hematocrit appear stable on review of previous labs and will be monitored. Quality VTE Prophylaxis VTE prophylaxis: pharmacologic ordered Hospitalist MIPS Advance Care Plan I have confirmed that the patient's Advanced Care Plan is present, code status is documented, or surrogate decision maker is listed in patient medical record.: Yes Medication Reconciliation I have utilized all available resources to obtain, update and review the patients current medications (includes all prescriptions, OTC, herbals, cannabis, and nutritional supplements).: Yes
[2024-05-27 14:56] LABS: Reflex Lactic Acid Yes or No Add Lactic
--- NOTE | 2024-05-27 14:57 | P.CONIN_ITS ---
Assessment and Plan Assessment and plan (1) Acute respiratory failure with hypoxia: Code(s): J96.01 - Acute respiratory failure with hypoxia Status: Acute Assessment and Plan: Acute Respiratory failure secondary to cardiac arrest, aspiration pneumonia, pulmonary edema Patient now intubated and on mechanical ventilation Ventilator settings reviewed. CT scan reviewed. ABG ordered and pending Check flu RSV and COVID PCR P.r.n. bronchodilators Wean oxygen Blood cultures and sputum culture Empiric vancomycin cefepime and Flagyl (2) Anoxic brain injury: Code(s): G93.1 - Anoxic brain damage, not elsewhere classified Status: Acute Assessment and Plan: Patient has sustained anoxic brain injury secondary to cardiac arrest as per exam of a mention Patient be started on therapeutic hypothermia protocol to keep her temperature below 36 C for [address] was negative on presentation Will repeat CT scan in 48-72 hours and also evaluate the need for EEG once patient is rewarmed At this time patient is now on sedation and may need neuromuscular andrei for sure (3) Cardiac arrest: Code(s): I46.9 - Cardiac arrest, cause unspecified Status: Acute Assessment and Plan: Patient presented with VFib cardiac arrest. She has a background history of nonischemic cardiomyopathy, AFib status post Watchman procedure. She also has elevated troponin CTA was negative for PE She did receive amiodarone in the ER. Cardiology consulted and will start amiodarone infusion Check echocardiogram Serial troponin EKG reviewed (4) Non-ischemic cardiomyopathy: Code(s): I42.8 - Other cardiomyopathies Status: Acute Assessment and Plan: See above (5) Combined systolic and diastolic congestive heart failure: Code(s): I50.40 - Unspecified combined systolic (congestive) and diastolic (congestive) heart failure Status: Acute Assessment and Plan: See above (6) Paroxysmal atrial fibrillation: Code(s): I48.0 - Paroxysmal atrial fibrillation Status: Acute Assessment and Plan: Status post Watchman procedure Not on anticoagulation likely secondary to history of GI bleed Continue aspirin Plavix Amiodarone infusion (7) Hyperlipidemia: Code(s): E78.5 - Hyperlipidemia, unspecified Status: Acute Assessment and Plan: Hold statin due to elevated liver enzyme (8) End-stage renal disease on hemodialysis: Onset Date: 09/2009 Code(s): N18.6 - End stage renal disease; Z99.2 - Dependence on renal dialysis Status: Acute Assessment and Plan: Consult nephrology for hemodialysis (9) Chronic anemia: Code(s): D64.9 - Anemia, unspecified Status: Chronic Assessment and Plan: Monitor hemoglobin (10) CVA (cerebral vascular accident): Code(s): I63.9 - Cerebral infarction, unspecified Status: Acute Assessment and Plan: Continue aspirin Plavix. Hold statin (11) Chronic obstructive pulmonary disease: Code(s): J44.9 - Chronic obstructive pulmonary disease, unspecified Status: Acute Assessment and Plan: See above (12) Aspiration pneumonia: Code(s): J69.0 - Pneumonitis due to inhalation of food and vomit Status: Acute Assessment and Plan: See above (13) Pulmonary edema: Code(s): J81.1 - Chronic pulmonary edema Status: Acute Assessment and Plan: Will need hemodialysis once stabilized (14) Ventricular fibrillation: Code(s): I49.01 - Ventricular fibrillation Status: Acute Assessment and Plan: See above Plan DVT prophylaxis -Lovenox Stress ulcer prophylaxis -PPI Nutrition - npo Code Status - Full Code Total Critical Care Time - minutes Due to a high probability of clinically significant, life threatening deterioration, the patient required my highest level of preparedness to intervene emergently and I personally spent this critical care time directly and personally managing the patient. This critical care time included obtaining a history; examining the patient; pulse oximetry; ordering and review of studies; arranging urgent treatment with development of a management plan; evaluation of patient's response to treatment; frequent reassessment; and discussions with other providers. It was exclusive of separately billable procedures and treating other patients and teaching time. Please see Assessment and Plan section and the rest of the note for further information on patient assessment and treatment Senior Business Development Manager Consult Note Consult date: 05/27/24 Reason for consult: Cardiac arrest HPI: 68yo female with ESRD on HD , nonischemic cardiomyopathy with EF 30%, PAFib s/p Watchman last year, DM, COPD, anemia, DVT, peptic ulcer disease, hyperlipidemia, stroke and LENORA here for feeling short of breath and cough. Patient has had 2-3 weeks of cough productive of mostly clear sputum but did have scant hemoptysis 1-2 days ago. She is also having TERRELL, chills, SOB, wheezing, left upper back pain and body aches was last discharged from [facility] on 04/02 after treatment for flu and asthma She has a dialysis catheter and normal working AV fistula. Her apparel merchandiser is Dr. Ann She was brought to the ER after sustaining a cardiac arrest when she became unresponsive in her car after getting a dialysis session. Patient was found to be in VFib. She was intubated in the field given epinephrine CPR and defibrillation. She also received amiodarone 300 mg. In ER patient had a prolonged resuscitation effort requiring multiple shock and prolonged down time. Please refer to ER notes were all the detail. Workup in the ER showed WBC 20.8, hemoglobin 9.3 INR 1.2 ABG pending Creatinine 5.62 glucose 276 lactic acid 11.3 calcium 11.2 BNP more than 3000 troponin 0.131 ALT 135 AST 271 alkaline phosphatase [address]cal[address] IMPRESSION: 1. No acute intracranial process. 2. Age-related changes including mild diffuse volume loss and unchanged mild scattered nonspecific cerebral white matter hypoattenuation consistent with chronic small vessel ischemic disease. Chest x-ray Bilateral upper and lower lobe pneumonia. Underlying pulmonary edema is also seen. KUB NG tube tip in the stomach. CTA chest abdomen pelvis IMPRESSION: 1. Diffuse bilateral lung disease with most dense consolidation in the dependent right lower lobe. Would favor multifocal pneumonia over pulmonary edema. 2. Radiographically uncomplicated distal descending colon diverticulitis. 3. Endotracheal tube tip at the entrance to the left mainstem bronchus. Recommend withdrawal by 3 cm. This and the above 2 findings were discussed with Dr. Gordon at 2:30 PM. 4. Cardiomegaly with left heart predominance. 5. Enlargement of the central pulmonary arteries consistent with pulmonary arterial hypertension. No evident pulmonary embolism. 5. Small sliding-type hiatal hernia. 6. Severe bilateral renal atrophy. 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 Review of Systems 2 Review of Systems: ROS unobtainable: Yes unobtainable due to endotracheal tube, unobtainable due to medical condition and unobtainable due to mental status PMFSH Past Medical History Medical History (Updated 05/27/24 @ 15:03 by Fahad Jensen MD) Hx of completed stroke 10/05/23 small left occipital lobe stroke after c-spine surgery Chronic hypotension Chronic obstructive pulmonary disease Hypotension On midodrine. Chronic anticoagulation Renal osteodystrophy Combined systolic and diastolic congestive heart failure Echo 10/2012: severe LV enlargement, moderate LV dysfunction with wall motion abnormality at the inferior basal segment, EF 44%, grade 2 diastolic dysfunction. Non-ischemic cardiomyopathy Negative cardiac catheterization showing no obstructive coronary disease in 2003 at [facility]. EF at that time was 20% but has improved to 54% in 02/2015. Chronic anemia History of blood transfusions. Hypothyroidism Gout Kidney stones Peptic ulcer (07/2003) Gastroesophageal reflux disease Deep venous thrombosis (02/2013) Paroxysmal atrial fibrillation s/p Watchman Obstructive sleep apnea End-stage renal disease on hemodialysis (09/2009) Type II diabetes mellitus Complicated by peripheral neuropathy and nephropathy. Asthma Diverticulosis Anxiety Hyperlipidemia Surgical History Surgical History (Updated 03/25/24 @ 12:52 by Saul العلي MD) Hx of cervical spine surgery C3-C6 laminectomies, C2-C7 instrumented posterior spinal fusion on 10/05/23 at [facility] Presence of Watchman left atrial appendage closure device 02/08/24 History of colonoscopy with polypectomy History of cardiac catheterization (08/20/13) Normal coronary arteries per Dr. Oliveros at [facility]. Status post creation of arteriovenous fistula Left forearm. History of parathyroidectomy History of cystoscopy (03/2012) History of sleeve gastrectomy (2013) History of cardiac radiofrequency ablation (1993) For SVT. History of mandibular surgery (1987) For TMJ. History of angioplasty History of myomectomy History of cholecystectomy (2014) History of section History of hysterectomy (1993) Family History Family History Mother Hypertension Family history of congestive heart failure Family history of congenital heart disease Family history of arthritis Family history of kidney disease Family history of chronic obstructive pulmonary disease Father Carcinoma of colon Sibling Family history of diabetes mellitus in first degree relative Grandparent Family history of congestive heart failure Diabetes mellitus Father Carcinoma of colon Mother Diabetes mellitus Acute myocardial infarction Hypertension Hyperlipidemia Grandparent Diabetes mellitus Acute myocardial infarction Stomach cancer Other Family history of cardiovascular disease Social History Social History (Updated 03/25/24 @ 12:45 by Saul العلي MD) Social History: Lives alone. Never smoker. No alcohol use. No drug use or hx of drug use. No pets. Surrogate decision maker: Sara Tobin Code status: Full code. Smoking status: Never smoker Second hand tobacco smoke exposure: No Alcohol intake: never Substance use: never Substance use type: does not use Do You Feel Safe in your Home?: Yes Lack of Transportation: No Lack of Food: Sometimes True Current Housing: I Have Housing Concerned About Future Housing: No Difficulty Paying Gas/Electric Bills: No Difficulty Paying for Meds: No Currently Unemployed: No Education: Decline to Answer Difficulty w/ Childcare or Family Care: No Additional living arrangements comments: Lives in [place]. 3 grown children. 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 Spiritual care concerns: No Meds Home Medications and Allergies Home Medications ?Medication ?Instructions ?Recorded ?Confirmed ?Type calcium acetate(phosphat bind) 667 667 mg PO BIDWM #60 tabs 04/25/23 03/25/24 Rx mg tablet lidocaine 4 % topical patch 1 patch topical DAILY #30 ea 04/25/23 03/25/24 Rx (Lidocaine Pain Relief) vitamin B complex-vitamin C-folic 1 tablet PO DAILY #30 tabs 04/25/23 03/25/24 Rx acid 0.8 mg tablet (Dialyvite 800) acetaminophen 500 mg tablet 500 mg PO QID PRN Fever Or Pain 10/18/23 03/25/24 History cholecalciferol (vitamin D3) 25 3,000 unit PO DAILY 10/18/23 03/25/24 History mcg (1,000 unit) tablet (Vitamin D3) cinacalcet 30 mg tablet (Sensipar) 60 mg PO QMWF 10/18/23 03/25/24 History fluoxetine 10 mg capsule (Prozac) 10 mg PO DAILY 10/18/23 03/25/24 History midodrine 5 mg tablet 15 mg PO TIDWMEAL 10/18/23 03/25/24 History atorvastatin 40 mg tablet 40 mg PO HS 30 days #30 tabs 11/03/23 03/25/24 Rx digoxin 125 mcg (0.125 mg) tablet 125 mcg PO SuTh 30 days #9 tabs 11/03/23 03/25/24 Rx fluticasone propionate 50 2 spray intranasal DAILY 30 days 11/03/23 03/25/24 Rx mcg/actuation nasal #16 grams spray,suspension latanoprost 0.005 % eye drops 1 drp EACH EYE HS 30 days #2.5 mL 11/03/23 03/25/24 Rx (Xalatan) montelukast 10 mg tablet 10 mg PO HS 30 days #30 tabs 11/03/23 03/25/24 Rx (Singulair) oxycodone 5 mg tablet 5 mg PO Q6H PRN Pain Rated 4-10 11/03/23 03/25/24 Rx #28 tabs peg [id number] 1 1 drp EACH EYE TID PRN Dry Eyes 30 11/03/23 03/25/24 Rx %-0.2 %-0.2 % eye drops days #15 mL (Artificial Tears ([id number])) aspirin 81 mg tablet,delayed 81 mg PO DAILY 03/25/24 03/25/24 History release (Adult Aspirin Regimen) gabapentin 100 mg capsule 200 mg PO BID 03/25/24 03/25/24 History lanthanum 1,000 mg chewable tablet 1,000 mg PO .with meals 03/25/24 03/25/24 History omeprazole 20 mg capsule,delayed 20 mg PO BID 03/25/24 03/25/24 History release clopidogrel 75 mg tablet 75 mg PO DAILY 03/28/24 03/28/24 History albuterol sulfate 1.25 mg/3 mL 1.25 mg (3 mL) inhalation Q4H PRN 04/02/24 Rx solution for nebulization shortness of breath or wheezing #90 mL albuterol sulfate 90 mcg/actuation 2 inh inhalation Q4H PRN shortness 04/02/24 Rx aerosol inhaler (Ventolin HFA) of breath or wheezing #8.5 grams fluticasone propionate 220 2 puff inhalation Q12H #12 grams 04/02/24 Rx mcg/actuation HFA aerosol inhaler levofloxacin 500 mg tablet 500 mg PO DAILY 1 day #1 tablet 04/02/24 Rx tizanidine 4 mg capsule 4 mg PO QHS PRN muscle spasticity 05/01/24 Rx #30 caps Allergies Allergy/AdvReac Type Severity Reaction Status Date / Time lisinopril Allergy Unknown Unknown Verified 03/25/24 16:07 propoxyphene Allergy Unknown Unknown Verified 03/25/24 16:07 valsartan Allergy Unknown lost voice Verified 03/25/24 16:07 Vital Signs Vital Signs - 24 hr 05/27/24 11:45 05/27/24 11:45 05/27/24 12:32 Temperature Pulse Rate 89 Respiratory Rate 19 Blood Pressure 134/121 H Pulse Oximetry 97 97 97 Oxygen Delivery Bag Valve Mask Bag Valve Mask Fraction of Inspired Oxygen 05/27/24 12:38 05/27/24 12:40 05/27/24 12:55 Temperature Pulse Rate 89 89 Respiratory Rate 14 Blood Pressure 85/52 L Pulse Oximetry 95 97 Oxygen Delivery Mechanical Ventilation Mechanical Ventilation Fraction of Inspired Oxygen 50 05/27/24 14:05 05/27/24 14:08 05/27/24 14:13 Temperature Pulse Rate 107 H 109 H 110 H Respiratory Rate 27 H 22 H Blood Pressure Pulse Oximetry 100 Oxygen Delivery Mechanical Ventilation Fraction of Inspired Oxygen 50 05/27/24 14:26 05/27/24 14:35 05/27/24 14:37 Temperature 36.8 C Pulse Rate 109 H 112 H 112 H Respiratory Rate 26 H 28 H 25 H Blood Pressure 182/162 H Pulse Oximetry 100 Oxygen Delivery Fraction of Inspired Oxygen 05/27/24 14:40 Temperature Pulse Rate 114 H Respiratory Rate 27 H Blood Pressure Pulse Oximetry Oxygen Delivery Fraction of Inspired Oxygen Exam 2 Narrative: General: Pt is was just started on sedation prior to my assessment but patient is intubated and on mechanical ventilation. She is on response Lungs/Chest: Trachea central Coarse BS B/L, No crackles or wheezing. Cardiac: RRR. Normal S1 S2. No murmurs tachycardia Circulation: Pedal pulses are intact and symmetrical. Abdomen: Decreased bowel sounds. Soft. NT. ND. Extremities: No clubbing, cyanosis or edema. Warm : Hoover in place Neurologic: Patient is unresponsive to any painful stimuli in all 4 extremities. She does exhibit signs of posturing. On stimulation her eyes roll back, PERRL sluggish, she does breathe over the ventilator and has spontaneous respiratory effort Results Labs 05/27/24 12:52 05/27/24 12:52 Labs: Impressions Abdomen X-Ray 05/27/24 13:15 IMPRESSION: 1: NG tube tip in the stomach. Chest X-Ray 05/27/24 13:16 IMPRESSION: Bilateral upper and lower lobe pneumonia. Underlying pulmonary edema is also seen. Head CT 05/27/24 14:03 IMPRESSION: 1. No acute intracranial process. 2. Age-related changes including mild diffuse volume loss and unchanged mild scattered nonspecific cerebral white matter hypoattenuation consistent with chronic small vessel ischemic disease. Chest/Abdomen/Pelvis CTA 05/27/24 14:18 IMPRESSION: 1. Diffuse bilateral lung disease with most dense consolidation in the dependent right lower lobe. Would favor multifocal pneumonia over pulmonary edema. 2. Radiographically uncomplicated distal descending colon diverticulitis. 3. Endotracheal tube tip at the entrance to the left mainstem bronchus. Recommend withdrawal by 3 cm. This and the above 2 findings were discussed with Dr. Gordon at 2:30 PM. 4. Cardiomegaly with left heart predominance. 5. Enlargement of the central pulmonary arteries consistent with pulmonary arterial hypertension. No evident pulmonary embolism. 5. Small sliding-type hiatal hernia. 6. Severe bilateral renal atrophy. 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 Short CBC 05/27/24 Range/Units 12:52 WBC 20.8 H (4.5-10.0) K/mm3 Hgb 9.3 L (12.0-15.0) g/dL Hct 32.9 L (37.0-47.0) % Plt Count 352 (150-375) k/mm3 BMP 05/27/24 12:52 Sodium 139 Potassium 4.2 Chloride 95 L Carbon Dioxide 22 BUN 20 H D Creatinine 5.62 H Glucose 276 H Calcium 11.2 H Cardiac Enzymes 05/27/24 Range/Units 12:52 Troponin I 0.131 H* (0.000-0.034) ng/mL Liver Function 05/27/24 Range/Units 12:52 Total Bilirubin 0.8 (0.2-1.3) mg/dL AST 271 H (14-36) U/L ALT 135 H (6-35) U/L Alkaline Phosphatase 142 H (38-126) U/L Albumin 3.7 (3.5-5.1) g/dL Quality VTE Prophylaxis VTE prophylaxis: pharmacologic ordered Hospitalist MIPS Advance Care Plan I have confirmed that the patient's Advanced Care Plan is present, code status is documented, or surrogate decision maker is listed in patient medical record.: Yes Medication Reconciliation I have utilized all available resources to obtain, update and review the patients current medications (includes all prescriptions, OTC, herbals, cannabis, and nutritional supplements).: Yes
--- NOTE | 2024-05-27 15:05 | PCCCNOTE ---
0893-Bridgette from [facility] called and stated the daughter called to let her know she was here and went into cardiac arrest. Stated they are shocked as the pt was walking and talking today. Stated the pt did report she wasn't feeling well and had just called in and antibiotic to her local pharmacy, blood cultures last week were negative. Was able to report her Watchman device was implanted 01/2024. ED provider and nurse updated. Family is currently updated on the pt's status by the ED provider and are currently at bedside.-karissa
[2024-05-27 15:12] LABS: Digoxin 0.7 ng/mL (0.8-2.0)
[2024-05-27 15:20] LABS: Alveolar/Arterial O2 Gradient 231.1 mmHg; Base Excess ABG -6.1 mEq/l (+/-2.0); Carboxyhemoglobin 1.7 % THb (0-2.0); Fractional Inspired Oxygen 50 %; HCO3 ABG 17.9 mEq/l (22.0-26.0); Methemoglobin ABG 0.3 %THb (0-1.5); Oxygen Content ABG 14.9 %vol (16.0-22.0); Oxyhemoglobin 94.9 % THb (90.0-100.0); PCO2 ABG 30.4 mmHg (35.0-45.0); PO2 ABG 91.2 mmHg (80.0-100.0); PO2 FiO2 Ratio Arterial Blood 1.82 %; Reduced Hemoglobin 3.1 %THb (0-5.0); Total Hemoglobin 11.1 g/dL (12.0-18.0); pH ABG 7.387 (7.350-7.450)
[2024-05-27 15:22] LABS: Arterial Blood Gas PEEP 5 cmH2O; Arterial Blood Gas Vent Mode CMV; Arterial Blood Gas Ventilator rate 20 /MIN; Device VENTILATOR; Modified Allen's Test Pass; Site Drawn RIGHT RADIAL
[2024-05-27 15:23] LABS: Arterial Blood Gas Pressure Support 0 cmH2O; Arterial Blood Gas Tidal Volume 420 ml
--- NOTE | 2024-05-27 15:36 | PC.NURSE ---
Report received from JAMESON Harrington @ [id number]. Assigned to ICU- 8
[2024-05-27 15:47] LABS: Anion Gap 22 mmol/L (4-12); Blood Urea Nitrogen 25 mg/dL (7-17); Calcium 10.2 mg/dL (8.4-10.2); Carbon Dioxide 20 mmol/L (22-30); Chloride 95 mmol/L (98-107); Creatine Kinase 619 U/L (30-135); Estimated CRCL calculation 8 ml/min; Estimated Glomerular Filt Rate 7; Glucose 260 mg/dL (65-110); Magnesium 1.9 mg/dL (1.6-2.3); Potassium 4.6 mmol/L (3.4-5.0); Sodium 137 mmol/L (137-145); Triglycerides 183 mg/dL (<150)
[2024-05-27 15:49] LABS: INR 1.1; Partial Thromboplastin Time 33.2 Seconds (22.3-36.8)
[2024-05-27 15:58] LABS: Lactic Acid Reflex 9.3 mmol/L (0.7-2.0)
[2024-05-27 16:13] LABS: Influenza A QL RT-PCR Negative (Negative); Influenza B QL RT-PCR Negative (Negative); RSV RNA, RT-PCR Negative (Negative); SARS-CoV-2 RNA PCR Negative (Negative)
--- NOTE | 2024-05-27 16:14 | ADMGEN ---
This patient, Donya Tobin, was admitted to Intensive Care Unit-8. Patient/family oriented to hospital policies and general routines including ID bracelet, bed and alarms, visiting hours, pain management, procedures, bathroom and other care routines, personal items, smoking policy, room service/diet, and visiting hours. Information on how to activate the Rapid Response Team has been discussed. Patient/Family are encouraged to report perceived risks to care and to ask questions if they do not understand what they are told or what they should do.
[2024-05-27] MEDS: PROPOFOL IV EMULSION 100 ML 2.17 MG IV CONT (16:30)
[2024-05-27 16:37] LABS: Lactic Acid 9.5 mmol/L (0.7-2.0)
[2024-05-27 16:48] LABS: MRSA (PCR) NOT DETECTED (NOT DETECTE)
[2024-05-27 16:55] LABS: Glucose Point of Care 218 mg/dl (65-105)
--- NOTE | 2024-05-27 17:10 | P.CONNP_ITS ---
Assessment and Plan Assessment and plan (1) End stage renal disease: Code(s): N18.6 - End stage renal disease Status: Chronic Assessment and Plan: * HD tomorrow * continue Monday/Monday/Monday dialysis schedule while in [place] * follow electrolytes, volume status, and clearance (2) Acute respiratory failure with hypoxia: Code(s): J96.01 - Acute respiratory failure with hypoxia Status: Acute Assessment and Plan: * secondary to cardiac arrest, aspiration pneumonia, pulmonary edema * intubated and on mechanical ventilation * rule out influenza, RSV, and COVID * P.r.n. bronchodilators * empiric vancomycin cefepime and Flagyl (3) Cardiac arrest: Code(s): I46.9 - Cardiac arrest, cause unspecified Status: Acute Assessment and Plan: * presented with VFib cardiac arrest * CTA was negative for PE * Cardiology consulted and on amiodarone infusion * Check echocardiogram * follow serial troponins (4) Anoxic brain injury: Code(s): G93.1 - Anoxic brain damage, not elsewhere classified Status: Acute Assessment and Plan: * suspected sustained anoxic brain injury secondary to cardiac arrest as per exam * started on therapeutic hypothermia protocol * Head CT was negative on presentation * repeat CT scan in 48-72 hours and also evaluate the need for EEG once patient is rewarmed * 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: Code(s): I50.40 - Unspecified combined systolic (congestive) and diastolic (congestive) heart failure Status: Acute Assessment and Plan: * known history * Cardiology following * follow-up on repeat Echo (6) Paroxysmal atrial fibrillation: Code(s): I48.0 - Paroxysmal atrial fibrillation Status: Acute Assessment and Plan: * status post Watchman procedure * ot on anticoagulation likely secondary to history of GI bleed * continue aspirin Plavix * on amiodarone infusion (7) Aspiration pneumonia: Code(s): J69.0 - Pneumonitis due to inhalation of food and vomit Status: Acute Assessment and Plan: * as suggested by imagimg * follow cultures * on antibiotics (8) Pulmonary edema: Code(s): J81.1 - Chronic pulmonary edema Status: Acute Assessment and Plan: * as noted on admission imaging * fluid removal with dialysis * follow serial CXRs (9) Anemia: Code(s): D64.9 - Anemia, unspecified Status: Chronic Assessment and Plan: * due to ESRD along with acute illness * SHERRI with HD * follow trend of H/H (10) Type II diabetes mellitus: Code(s): E11.9 - Type 2 diabetes mellitus without complications Status: Acute Assessment and Plan: * noted in the past but now diet controlled * glycemic control per juvenile court judge/hospitalist I will continue to follow the patient with you while she remains hospitalized and make further recommendations as deemed necessary. Thank you for allowing me to participate in the care of this patient. L History of Present Illness Reason for Consult Consult date: 05/27/24 Reason for consult: end stage renal disease Chief Complaint Chief complaint: cardiac arrest,esrd,pneumonia,v fib History of Present Illness Narrative: All the information I obtained is from review of the electronic medical record, my personal recollection of taking care of this patient in the past on her previous hospitalizations, and my discussion with the other physician/nurses involved in her care as well as the ER physician as the patient is unable to provide any history as she is intubated and on a ventilator support. This is a 68-year-old female with an extensive medical history as outlined below who presented to the emergency department via EMS in cardiac arrest. She had a full dialysis treatment this morning and a six-month stroke follow-up appointment with her neurologist at [facility]. On the ride home, the patient reportedly went unresponsive and her daughter called 911. CPR was initiated on EMS arrival with an initial rhythm of ventricular fibrillation. She received multiple shocks for persistent ventricular fibrillation in addition to epinephrine and chest compressions. She was intubated in the field and an IO was placed. There were no reports of any recent illnesses the patient and she had not been complaining of any chest pain or shortness a breath. In the ER, ACLS protocol was continued and she received numerous shocks for ventricular fibrillation in addition to epinephrine, 3 amps of sodium bicarbonate, 1 amp of calcium gluconate, and a total 450 mg of amiodarone before return of spontaneous circulation. Total down time was summer between 45 and 60 minutes. Labs were significant for WBC count of 20.8, hemoglobin 9.3, potassium 4.2, and gap 22, BUN 20, creatinine 5.62, lactic acid 11.3, AST 271, ALT 135, alkaline phosphatase 142, troponin 0.131, proBNP greater than 30,000. Head CT showed no acute process in age related findings. CTA of the chest, abdomen, and pelvis showed diffuse bilateral lung disease favoring multifocal pneumonia and radiographically uncomplicated distal descending colon diverticulitis. She was started on antibiotics and an amiodarone drip and is being admitted to the ICU in this setting. Renal consultation was requested due to her end-stage renal disease. The patient normally dialyzes on a Monday, Monday, Monday schedule under the care of Dr. Jc Moreau at [facility]. She is compliant with her dialysis treatments and as already mentioned, tends to be quite careful in terms of her fluid intake. Fluid removal with dialysis is somewhat challenging for the patient in general given her chronic hypotension requiring midodrine therapy. She has been hospitalized at [facility] in the past for fluid overload due to inability to get her down to her dry weight given her hypotension during her outpatient dialysis treatments and she usually responds to more aggressive dialysis and ultrafiltration daily in effort to optimize her volume status in the past. She completed her dialysis treatment earlier today prior to presentation/transfer to the ER for her above issues. Currently, at the time my visit, she is intubated/sedated and on mechanical ventilation. Review of Systems 2 Review of Systems: As per HPI. [facility] Past Medical History Medical History Cerebrovascular accident (10/05/23) small left occipital lobe infarct following cervical spine surgery Chronic hypotension on midodrine Chronic obstructive pulmonary disease Chronic anticoagulation Renal osteodystrophy Combined systolic and diastolic congestive heart failure Echo 10/2012: severe LV enlargement, moderate LV dysfunction with wall motion abnormality at the inferior basal segment, EF 44%, grade 2 diastolic dysfunction. Non-ischemic cardiomyopathy Negative cardiac catheterization showing no obstructive coronary disease in [address] [facility]. EF at that time was 20% but has improved to 54% in 02/2015. Chronic anemia History of blood transfusions. Hypothyroidism Gout Kidney stones Peptic ulcer (07/2003) Gastroesophageal reflux disease Deep venous thrombosis (02/2013) Paroxysmal atrial fibrillation s/p Watchman Obstructive sleep apnea End-stage renal disease on hemodialysis (09/2009) Type II diabetes mellitus Diet-controlled, Complicated by peripheral neuropathy and nephropathy. Asthma Diverticulosis Anxiety Hyperlipidemia Surgical History Surgical History Hx of cervical spine surgery C3-C6 laminectomies, C2-C7 instrumented posterior spinal fusion on 10/05/23 at [facility] Presence of Watchman left atrial appendage closure device 02/08/24 History of colonoscopy with polypectomy History of cardiac catheterization (08/20/13) Normal coronary arteries per Dr. Oliveros at [facility] Status post creation of arteriovenous fistula Left forearm. History of parathyroidectomy History of cystoscopy (03/2012) History of sleeve gastrectomy (2013) History of cardiac radiofrequency ablation (1993) For SVT. History of mandibular surgery (1987) For TMJ. History of angioplasty History of myomectomy History of cholecystectomy (2014) History of section History of hysterectomy (1993) Family History Family History Mother Hypertension Family history of congestive heart failure Family history of congenital heart disease Family history of arthritis Family history of kidney disease Family history of chronic obstructive pulmonary disease Father Carcinoma of colon Sibling Family history of diabetes mellitus in first degree relative Grandparent Family history of congestive heart failure Diabetes mellitus Father Carcinoma of colon Mother Diabetes mellitus Acute myocardial infarction Hypertension Hyperlipidemia Grandparent Diabetes mellitus Acute myocardial infarction Stomach cancer Other Family history of cardiovascular disease Social History Social History Social History: Surrogate decision maker: Sara Tobin Code status: Full code. Smoking status: Never smoker Second hand tobacco smoke exposure: No Alcohol intake: never Substance use: never Substance use type: does not use Do You Feel Safe in your Home?: Yes Lack of Transportation: No Lack of Food: Sometimes True Current Housing: I Have Housing Concerned About Future Housing: No Difficulty Paying Gas/Electric Bills: No Difficulty Paying for Meds: No Currently Unemployed: No Education: Decline to Answer Difficulty w/ Childcare or Family Care: No Additional living arrangements comments: Lives in [place]. 3 grown children. 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 Spiritual care concerns: No Meds Home Medications and Allergies Home Medications ?Medication ?Instructions ?Recorded ?Confirmed ?Type calcium acetate(phosphat bind) 667 667 mg PO BIDWM #60 tabs 04/25/23 05/27/24 Rx mg tablet lidocaine 4 % topical patch 1 patch topical DAILY #30 ea 04/25/23 05/27/24 Rx (Lidocaine Pain Relief) vitamin B complex-vitamin C-folic 1 tablet PO DAILY #30 tabs 04/25/23 05/27/24 Rx acid 0.8 mg tablet (Dialyvite 800) acetaminophen 500 mg tablet 500 mg PO QID PRN Fever Or Pain 10/18/23 05/27/24 History cholecalciferol (vitamin D3) 25 3,000 unit PO DAILY 10/18/23 05/27/24 History mcg (1,000 unit) tablet (Vitamin D3) cinacalcet 30 mg tablet (Sensipar) 60 mg PO QMWF 10/18/23 05/27/24 History fluoxetine 10 mg capsule (Prozac) 10 mg PO DAILY 10/18/23 05/27/24 History midodrine 5 mg tablet 15 mg PO TIDWMEAL 10/18/23 05/27/24 History atorvastatin 40 mg tablet 40 mg PO HS 30 days #30 tabs 11/03/23 05/27/24 Rx digoxin 125 mcg (0.125 mg) tablet 125 mcg PO SuTh 30 days #9 tabs 11/03/23 05/27/24 Rx fluticasone propionate 50 2 spray intranasal DAILY 30 days 11/03/23 05/27/24 Rx mcg/actuation nasal #16 grams spray,suspension latanoprost 0.005 % eye drops 1 drp EACH EYE HS 30 days #2.5 mL 11/03/23 05/27/24 Rx (Xalatan) montelukast 10 mg tablet 10 mg PO HS 30 days #30 tabs 11/03/23 05/27/24 Rx (Singulair) oxycodone 5 mg tablet 5 mg PO Q6H PRN Pain Rated 4-10 11/03/23 05/27/24 Rx #28 tabs peg [id number] 1 1 drp EACH EYE TID PRN Dry Eyes 30 11/03/23 05/27/24 Rx %-0.2 %-0.2 % eye drops days #15 mL (Artificial Tears ([id number])) aspirin 81 mg tablet,delayed 81 mg PO DAILY 03/25/24 05/27/24 History release (Adult Aspirin Regimen) gabapentin 100 mg capsule 200 mg PO BID 03/25/24 05/27/24 History lanthanum 1,000 mg chewable tablet 1,000 mg PO .with meals 03/25/24 05/27/24 History omeprazole 20 mg capsule,delayed 20 mg PO BID 03/25/24 05/27/24 History release clopidogrel 75 mg tablet 75 mg PO DAILY 03/28/24 05/27/24 History albuterol sulfate 1.25 mg/3 mL 1.25 mg (3 mL) inhalation Q4H PRN 04/02/24 05/27/24 Rx solution for nebulization shortness of breath or wheezing #90 mL albuterol sulfate 90 mcg/actuation 2 inh inhalation Q4H PRN shortness 04/02/24 05/27/24 Rx aerosol inhaler (Ventolin HFA) of breath or wheezing #8.5 grams fluticasone propionate 220 2 puff inhalation Q12H #12 grams 04/02/24 05/27/24 Rx mcg/actuation HFA aerosol inhaler tizanidine 4 mg capsule 4 mg PO QHS PRN muscle spasticity 05/01/24 05/27/24 Rx #30 caps benzonatate 100 mg capsule 100 mg PO Q6H PRN cough 05/27/24 05/27/24 History metoprolol succinate 25 mg 25 mg PO DAILY 05/27/24 05/27/24 History tablet,extended release 24 hr Allergies Allergy/AdvReac Type Severity Reaction Status Date / Time lisinopril Allergy Unknown Unknown Verified 03/25/24 16:07 propoxyphene Allergy Unknown Unknown Verified 03/25/24 16:07 valsartan AdvReac Unknown lost voice Verified 05/28/24 07:31 Vital Signs Vital Signs Temp Pulse Resp BP Pulse Ox O2 Del Method FiO2 05/27/24 17:00 94 24 H 05/27/24 16:50 98.5 F 98 34 H 141/71 H 99 05/27/24 16:46 103 H 35 H 05/27/24 16:40 104 H 32 H 05/27/24 16:30 92 26 H 05/27/24 16:30 95 25 H 05/27/24 16:30 117 H 37 H 05/27/24 16:20 98.7 F 103 H 32 H 144/99 H 96 05/27/24 16:13 106 H 30 H 05/27/24 16:12 107 H 100 Mechanical Ventilation 50 05/27/24 16:10 106 H 27 H 05/27/24 14:40 114 H 27 H 05/27/24 14:37 112 H 25 H 05/27/24 14:35 112 H 28 H 05/27/24 14:26 98.2 F 109 H 26 H 182/162 H 100 05/27/24 14:13 110 H 22 H 05/27/24 14:08 109 H 27 H 05/27/24 14:05 107 H 100 Mechanical Ventilation 50 05/27/24 12:55 97 Mechanical Ventilation 05/27/24 12:40 89 95 Mechanical Ventilation 50 05/27/24 12:38 89 14 85/52 L 05/27/24 12:32 89 19 134/121 H 97 05/27/24 11:45 97 Bag Valve Mask 05/27/24 11:45 97 Bag Valve Mask Exam 2 Narrative: General: Acutely ill-appearing female sedated and intubated on mechanical ventilation HEENT: Pupils are approximately 2 mm and are sluggishly reactive. Eyes fall back. Sclera anicteric. ET and OG tubes in place. Neck: Supple. No obvious JVD. Respiratory: Intubated on mechanical ventilation. Over breathing the vent. Coarse lung sounds heard anteriorly and at the flanks. Cardiovascular: Regular rate and rhythm with occasional ectopy. Gastrointestinal: Abdomen is soft and nondistended with positive bowel sounds. Extremities: No cyanosis, clubbing, or edema. Peripheral pulses palpable. Neurological: Exhibits decerebrate posturing randomly and with stimuli. Toes are downgoing. Occasionally appears to gag. Psychiatric: Unable to assess. Results Lab Results 05/30/24 03:52 05/30/24 03:52 Lab results: Most recent lab results ABG pH 7.387 (7.350-7.450) 05/27/24 15:07 ABG pCO2 30.4 mmHg (35.0-45.0) L 05/27/24 15:07 ABG pO2 91.2 mmHg (80.0-100.0) 05/27/24 15:07 ABG HCO3 17.9 mEq/l (22.0-26.0) L 05/27/24 15:07 ABG O2 Saturation 97.0 % (95.0-100.0) 05/27/24 15:07 Calcium 10.2 mg/dL (8.4-10.2) 05/27/24 15:28 Phosphorus 7.0 mg/dL (2.5-4.5) H 05/27/24 15: Magnesium 1.9 mg/dL (1.6-2.3) 05/27/24 15:28
[2024-05-27] MEDS: AMIODARONE 360 MG/D5W 200 ML 360 MG/200 ML BAG 33.33 MG IV CONT (17:45)
[2024-05-27] MEDS: VANCOMYCIN 1,500 MG/NS 500 ML 1,500 MG/500 ML BAG 250 MG IVPB (17:46)
--- NOTE | 2024-05-27 17:56 | P.PCNBED_ITS ---
Procedures Central Line Placement Left Femoral: Central Line Date: 05/27/24 Central Line Time: 17:30 Consent: I have discussed with the patient and/or surrogate, the non-emergent placement of a central venous catheter, including its clinical necessity/indication and associated potential risks and complications. The patient and/or surrogate understand(s) and acknowledge(s) the need to proceed with central venous catheter insertion as an important element of the patient's clinical management. Time Out Performed: Yes Patient Position: supine Patient placed on monitor/pulse ox: Yes Provider Prep: mask, sterile gown, sterile gloves, Max. sterile barrier precautions, cap and hand hygiene with conventional soap/water or alcohol based hand rub Central line prep: 2% Chlorhexidine scrub Local anesthesia used: lidocaine 1% Amount of anesthesia used (ml): 3 Sterile US Technique with sterile gel/sterile probe covers: Yes Central line lumen inserted: triple Sinhala: 7 Length (cm): 20 Post Procedure: sutured in place, good blood return, all ports aspirated, flushed, capped, transparent dressing, hemostatic product, securement product and aseptic technique maintained throughout procedure Post procedure x-ray: other (n/a placement) Patient tolerated procedure: well Complications: none Additional comments: Initial target vessel was right femoral however there were difficulties advancing the guidewire and the line was instead inserted in the left without issues.
[2024-05-27 18:20] LABS: Glucose Point of Care 192 mg/dl (65-105)
[2024-05-27 19:20] LABS: Glucose Point of Care 159 mg/dl (65-105)
[2024-05-27] MEDS: CISATRACURIUM BESYLATE 20 MG/10 ML VIAL 10 MG IV PUSH (19:21)
[2024-05-27] MEDS: CISATRACURIUM BESYLATE 200 MG in SODIUM CHLORIDE 0.9% IV 80 ML 6.52 ML IV CONT (19:23)
[2024-05-27] MEDS: metroNIDAZOLE 500 MG/ISO 100ML 500 MG/100 ML BAG 100 MG IVPB (20:32)
[2024-05-27] MEDS: levETIRAcetam 500MG/NACL 100ML 500 MG/100 ML BAG 400 MG IVPB (20:37)
[2024-05-27] MEDS: MINERAL OIL/WHITE PETROLATUM OINTMENT 1 APPLIC EACH EYE (20:39)
[2024-05-27] MEDS: AMIODARONE 360 MG/D5W 200 ML 360 MG/200 ML BAG 16.67 MG IV CONT (21:00)
[2024-05-27 21:16] LABS: Lactic Acid Reflex 3.5 mmol/L (0.7-2.0)
[2024-05-27 21:27] LABS: Glucose Point of Care 171 mg/dl (65-105)
[2024-05-27 23:24] LABS: Glucose Point of Care 152 mg/dl (65-105)
[2024-05-27 23:24] LABS: Glucose Point of Care 172 mg/dl (65-105)
[2024-05-28] VITALS (60 sets, daily range): BP systolic 65–131; BP diastolic 52–95; PULSE 55–108; RESP 16–28; TEMP 35.2–37; O2SAT 70–100; BMI 29.2
[2024-05-28 00:40] LABS: Glucose Point of Care 135 mg/dl (65-105)
[2024-05-28] MEDS: PROPOFOL IV EMULSION 100 ML 8.69 MG IV CONT ×3 (01:30→20:42)
[2024-05-28 01:46] LABS: Glucose Point of Care 150 mg/dl (65-105)
[2024-05-28] MEDS: IPRATROPIUM 0.5 MG/ALBUTEROL SULFATE 2.5 MG AMPUL.NEB 3 ML INHALATION ×3 (02:11→21:10)
[2024-05-28 02:48] LABS: Glucose Point of Care 127 mg/dl (65-105)
--- NOTE | 2024-05-28 03:00 | ECG_ITS ---
Test Date: 2024-05-28 03:13:10 Measurements Intervals [place] Rate: 82 P: 0 SC: 0 QRS: -52 QRSD: 135 T: 60 QT: 423 QTc: 497 Interpretive Statements SINUS RHYTHM WITH FREQUENT ATRIAL PREMATURE COMPLEXES LEFT BUNDLE BRANCH BLOCK ABNORMAL ECG Compared to ECG 05/27/2024 13:10:59 ATRIAL FLUTTER/TACHYCARDIA NO LONGER PRESENT Electronically Signed On 05-28-2024 06:23:45 CDT by Heath Grande D.O.
[2024-05-28] MEDS: AMIODARONE 150 MG/D5W 100 ML 150 MG/100 ML BAG 600 MG IV CONT (03:34)
[2024-05-28 03:37] LABS: Anion Gap 14 mmol/L (4-12); Blood Urea Nitrogen 34 mg/dL (7-17); Calcium 9.5 mg/dL (8.4-10.2); Carbon Dioxide 27 mmol/L (22-30); Chloride 98 mmol/L (98-107); Creatine Kinase 1008 U/L (30-135); Estimated CRCL calculation 7 ml/min; Estimated Glomerular Filt Rate 6; Glucose 131 mg/dL (65-110); Magnesium 1.7 mg/dL (1.6-2.3); Phosphorus 4.4 mg/dL (2.5-4.5); Potassium 3.8 mmol/L (3.4-5.0); Sodium 139 mmol/L (137-145)
[2024-05-28 03:39] LABS: INR 1.3; Prothrombin Time 16.5 Seconds (11.1-14.7)
[2024-05-28 03:40] LABS: Partial Thromboplastin Time 38.4 Seconds (22.3-36.8)
[2024-05-28] MEDS: MAGNESIUM SULF 2 GM/WATER 50ML 2 GM/50 ML BAG IVPB (03:57)
[2024-05-28] MEDS: AMIODARONE 360 MG/D5W 200 ML 360 MG/200 ML BAG 33.33 MG IV CONT (04:00)
[2024-05-28] MEDS: CISATRACURIUM BESYLATE 200 MG in SODIUM CHLORIDE 0.9% IV 80 ML 7.6 ML IV CONT ×2 (04:30→18:09)
[2024-05-28 04:47] LABS: Alveolar/Arterial O2 Gradient 245.5 mmHg; Base Excess ABG 1.2 mEq/l (+/-2.0); Fractional Inspired Oxygen 50 %; HCO3 ABG 24.2 mEq/l (22.0-26.0); Methemoglobin ABG 0.3 %THb (0-1.5); Oxygen Saturation ABG 96.1 % (95.0-100.0); Oxyhemoglobin 93.7 % THb (90.0-100.0); PCO2 ABG 32.3 mmHg (35.0-45.0); PO2 ABG 74.7 mmHg (80.0-100.0); PO2 FiO2 Ratio Arterial Blood 1.49 %; Total Hemoglobin 9.8 g/dL (12.0-18.0); pH ABG 7.492 (7.350-7.450)
[2024-05-28] MEDS: metroNIDAZOLE 500 MG/ISO 100ML 500 MG/100 ML BAG 100 MG IVPB ×3 (05:00→20:47)
[2024-05-28 05:10] LABS: Hemoglobin 8.8 g/dL (12.0-15.0); Mean Corpuscular HGB Conc 30.3 g/dl (32-36); Mean Corpuscular Hemoglobin 26.3 pg (26-34); Mean Corpuscular Volume 86.8 fl (80-100); Mean Platelet Volume 9.8 fl (7.4-10.4); Platelet Count Result 244 k/mm3 (150-375); Red Blood Count 3.34 M/mm3 (4.2-5.4); Red Cell Distribution Width 17.1 % (11.5-14.5); White Blood Count 12.8 K/mm3 (4.5-10.0)
[2024-05-28] MEDS: NOREPINEPHRINE 8 MG/D5W 250 ML 8 MG/250 ML BAG 9.38 MG IV CONT (05:20)
[2024-05-28 05:22] LABS: Arterial Blood Gas PEEP 5 cmH2O; Arterial Blood Gas Vent Mode CMV; Arterial Blood Gas Ventilator rate 20 /MIN; Device VENTILATOR; Modified Allen's Test Pass; Site Drawn RIGHT RADIAL
[2024-05-28 05:23] LABS: Arterial Blood Gas Tidal Volume 420 ml
[2024-05-28 06:15] LABS: Glucose Point of Care 143 mg/dl (65-105)
--- NOTE | 2024-05-28 07:00 | ECG_ITS ---
Test Date: 2024-05-28 10:25:06 Measurements Intervals [place] Rate: 74 P: 0 PA: 0 QRS: -54 QRSD: 127 T: 94 QT: 427 QTc: 477 Interpretive Statements SINUS OR ECTOPIC ATRIAL RHYTHM WITH ATRIAL PREMATURE COMPLEXES LEFT AXIS DEVIATION LEFT BUNDLE BRANCH BLOCK BASELINE WANDER- AVR, AVL, AVF ABNORMAL ECG Compared to ECG 05/28/2024 03:13:10 NO SIGNIFICANT CHANGE Electronically Signed On 05-28-2024 11:37:03 CDT by Heath Grande D.O.
[2024-05-28] MEDS: PERFLUTREN LIPID MICROSPHERES 1.5 ML VIAL DILUTED TO 10 ML TOTAL VOLUME IV PUSH (07:30)
[2024-05-28] MEDS: ASPIRIN 325 MG TABLET FEED TUBE (07:55)
[2024-05-28] MEDS: CLOPIDOGREL BISULFATE 75 MG TABLET FEED TUBE (07:55)
[2024-05-28] MEDS: levETIRAcetam 500MG/NACL 100ML 500 MG/100 ML BAG 400 MG IVPB ×2 (07:55→20:41)
[2024-05-28] MEDS: MINERAL OIL/WHITE PETROLATUM OINTMENT 1 APPLIC EACH EYE ×2 (07:56→20:48)
[2024-05-28] MEDS: ENOXAPARIN 30 MG/0.3 ML SYRINGE SUB-Q (07:56)
[2024-05-28] MEDS: PANTOPRAZOLE SODIUM IV 40 MG VIAL IV PUSH (07:56)
--- NOTE | 2024-05-28 08:19 | IVDEFINITY ---
Prior to administration of IV Definity the patient was educated on the risks and benefits of the imaging enhancing agent including potential adverse side effects. The patient verbalized understanding. Allergies were verified. No exclusion criteria were identified and at least one of the following inclusion criteria were met: 1) physician request, 2) patient technically difficult to image (per the [place] [employer] guidelines of two or more segments not discernable within the apical view), or 3) questionable left ventricular function. ?
[2024-05-28 08:22] LABS: Lactic Acid Reflex 2.3 mmol/L (0.7-2.0)
[2024-05-28 08:23] LABS: Alanine Aminotransferase 184 U/L (6-35); Albumin Level 3.2 g/dL (3.5-5.1); Alkaline Phosphatase 158 U/L (38-126); Aspartate Amino Transferase 416 U/L (14-36); Bilirubin,Total 0.6 mg/dL (0.2-1.3); Creatine Kinase 826 U/L (30-135)
[2024-05-28 08:40] LABS: Glucose Point of Care 148 mg/dl (65-105)
--- NOTE | 2024-05-28 09:15 | PM.PNNEP ---
Progress Note: A&P Assessment and Plan (1) End stage renal disease: Code(s): N18.6 - End stage renal disease Status: Chronic Assessment and Plan: HD tomorrow continue Monday/Monday/Monday dialysis schedule while hospitalized follow electrolytes, volume status, and clearance (2) Acute respiratory failure with hypoxia: Code(s): J96.01 - Acute respiratory failure with hypoxia Status: Acute Assessment and Plan: secondary to cardiac arrest, aspiration pneumonia, pulmonary edema intubated and on mechanical ventilation rule out influenza, RSV, and COVID P.r.n. bronchodilators empiric vancomycin cefepime and Flagyl (3) Cardiac arrest: Code(s): I46.9 - Cardiac arrest, cause unspecified Status: Acute Assessment and Plan: presented with VFib cardiac arrest CTA was negative for PE Cardiology consulted and on amiodarone infusion Check echocardiogram follow serial troponins (4) Anoxic brain injury: Code(s): G93.1 - Anoxic brain damage, not elsewhere classified Status: Acute Assessment and Plan: suspected sustained anoxic brain injury secondary to cardiac arrest as per exam started on therapeutic hypothermia protocol Head CT was negative on presentation repeat CT scan in 48-72 hours and also evaluate the need for EEG once patient is rewarmed Neurology consult? 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: Code(s): I50.40 - Unspecified combined systolic (congestive) and diastolic (congestive) heart failure Status: Acute Assessment and Plan: known history Cardiology following repeat Echo noted (6) Paroxysmal atrial fibrillation: Code(s): I48.0 - Paroxysmal atrial fibrillation Status: Acute Assessment and Plan: status post Watchman procedure ot on anticoagulation likely secondary to history of GI bleed continue aspirin Plavix on amiodarone infusion (7) Aspiration pneumonia: Code(s): J69.0 - Pneumonitis due to inhalation of food and vomit Status: Acute Assessment and Plan: as suggested by imagimg follow cultures on antibiotics (8) Pulmonary edema: Code(s): J81.1 - Chronic pulmonary edema Status: Acute Assessment and Plan: as noted on admission imaging fluid removal with dialysis follow serial CXRs (9) Anemia: Code(s): D64.9 - Anemia, unspecified Status: Chronic Assessment and Plan: due to ESRD along with acute illness SHERRI with HD follow trend of H/H (10) Type II diabetes mellitus: Code(s): E11.9 - Type 2 diabetes mellitus without complications Status: Acute Assessment and Plan: noted in the past but now diet controlled glycemic control per missile control pilot/hospitalist Will continue to follow. Subjective Date/time seen: 05/28/24 09:15 Interval history: Follow-up for end stage renal disease on hemodialysis. Remains on therapeutic hypothermia protocol; remains intubated/sedated/paralyzed and on mechanical ventilation; had 2 episode of VFib arrest overnight and required DC defibrillation. She is on amiodarone infusion; also on norepinephrine infusion for blood pressure support. Exam Narrative: General: ill appearing female intubated/sedated/paralyzed and on mechanical ventilation Heart: tachycardic, normal S1 and S2; no rub Lungs: coarse breath sounds with bibasilar crackles Abdomen: soft, nontender, nondistended, positive bowel sounds Extremities: no cyanosis or clubbing; no edema Skin: cool to touch Objective Data Vital Signs Vital Signs: Vital Signs Temp Pulse Resp BP Pulse Ox O2 Del Method FiO2 05/28/24 09:13 71 78/65 L 05/28/24 09:13 78 72/52 L 05/28/24 09:10 71 65/53 L 05/28/24 09:00 96.5 F L 76 20 101/71 100 05/28/24 08:45 71 83/66 L 05/28/24 08:30 72 20 05/28/24 08:13 78 20 05/28/24 08:13 78 100 Mechanical Ventilation 50 05/28/24 08:00 75 20 05/28/24 08:00 72 20 121/77 05/28/24 08:00 73 20 05/28/24 08:00 50 05/28/24 08:00 77 05/28/24 08:00 95.9 F L 78 20 121/71 100 05/28/24 08:00 97.5 F L 77 20 127/77 100 05/28/24 07:47 81 100 60 05/28/24 07:37 77 100 80 05/28/24 07:30 75 103/80 05/28/24 07:20 74 103/80 05/28/24 07:05 93 92 05/28/24 07:00 97.5 F L 74 20 110/65 100 05/28/24 06:48 105 H 87 L Mechanical Ventilation 100 05/28/24 06:15 70 72/56 L 05/28/24 06:00 73 05/28/24 06:00 96.5 F L 73 20 100/65 100 05/28/24 06:00 73 20 05/28/24 06:00 73 100/65 05/28/24 06:00 73 20 100/65 05/28/24 06:00 73 20 05/28/24 05:20 61 69/56 L 05/28/24 04:45 67 100 Mechanical Ventilation 50 05/28/24 04:30 60 20 110/75 05/28/24 04:30 60 20 110/75 05/28/24 04:00 100 Mechanical Ventilation 50 05/28/24 04:00 71 05/28/24 04:00 97.7 F 71 20 119/84 100 05/28/24 04:00 71 20 05/28/24 04:00 71 20 05/28/24 04:00 73 20 119/84 05/28/24 04:00 50 05/28/24 04:00 71 119/84 05/28/24 04:00 71 119/84 05/28/24 03:34 68 107/72 05/28/24 02:17 68 20 05/28/24 02:11 68 98 Mechanical Ventilation 50 05/28/24 02:00 64 20 05/28/24 02:00 64 20 05/28/24 02:00 64 100/65 05/28/24 02:00 64 20 100/65 05/28/24 02:00 96 F L 64 20 100/65 90 05/28/24 02:00 96 F L 64 20 100/65 90 05/28/24 02:00 63 05/28/24 01:30 56 L 20 05/28/24 01:30 56 L 20 05/28/24 01:00 95.4 F L 55 L 20 99/64 L 97 05/28/24 01:00 95.4 F L 55 L 20 99/64 L 97 05/28/24 00:15 69 28 H 05/28/24 00:00 66 20 05/28/24 00:00 66 20 05/28/24 00:00 66 127/77 05/28/24 00:00 66 20 127/77 05/28/24 00:00 96.9 F L 66 20 127/77 97 05/28/24 00:00 64 05/28/24 00:00 96.9 F L 66 20 127/77 97 05/28/24 00:00 97 Mechanical Ventilation 50 05/27/24 23:26 76 100 Mechanical Ventilation 50 05/27/24 23:15 75 20 125/89 05/27/24 23:15 96.8 F L 75 20 125/89 97 05/27/24 23:15 96.8 F L 75 20 125/89 97 05/27/24 22:30 96.8 F L 130/37 L 05/27/24 22:15 116/37 L 05/27/24 22:00 64 20 05/27/24 22:00 64 20 05/27/24 22:00 64 101/33 L 05/27/24 22:00 64 20 101/33 L 05/27/24 22:00 95 F L 74 20 101/33 L 100 05/27/24 22:00 64 05/27/24 22:00 95 F L 74 20 101/33 L 100 05/27/24 21:00 94.7 F L 58 L 20 98/84 L 100 05/27/24 21:00 58 L 98/84 L 05/27/24 21:00 94.7 F L 58 L 20 98/84 L 100 05/27/24 20:18 58 L 100 Mechanical Ventilation 50 05/27/24 20:00 63 20 05/27/24 20:00 63 20 118/39 L 05/27/24 20:00 63 20 05/27/24 20:00 60 05/27/24 20:00 96.2 F L 63 20 118/39 L 100 05/27/24 20:00 100 Mechanical Ventilation 50 05/27/24 20:00 63 118/39 L 05/27/24 20:00 96.2 F L 63 20 118/39 L 100 05/27/24 19:23 63 20 102/69 05/27/24 19:00 97.9 F 62 20 108/39 L 100 05/27/24 19:00 97.5 F L 78 20 108/39 L 100 05/27/24 18:55 98 20 05/27/24 18:00 78 20 05/27/24 18:00 97.9 F 72 20 109/40 L 98 05/27/24 18:00 98.2 F 85 19 112/61 98 05/27/24 18:00 97.8 F 72 20 112/61 100 05/27/24 18:00 85 05/27/24 17:50 98.7 F 101 H 31 H 129/70 99 05/27/24 17:45 105 H 124/88 05/27/24 17:00 94 24 H 05/27/24 16:50 98.5 F 98 34 H 141/71 H 99 05/27/24 16:46 103 H 35 H 05/27/24 16:40 104 H 32 H 05/27/24 16:30 98 28 H 05/27/24 16:30 92 26 H 05/27/24 16:30 95 25 H 05/27/24 16:30 117 H 37 H 05/27/24 16:20 98.7 F 103 H 32 H 144/99 H 96 05/27/24 16:14 108 H 124/62 05/27/24 16:13 106 H 30 H 05/27/24 16:12 107 H 100 Mechanical Ventilation 50 05/27/24 16:10 106 H 27 H 05/27/24 14:40 114 H 27 H 05/27/24 14:37 112 H 25 H 05/27/24 14:35 112 H 28 H 05/27/24 14:26 98.2 F 109 H 26 H 182/162 H 100 05/27/24 14:13 110 H 22 H 05/27/24 14:08 109 H 27 H 05/27/24 14:05 107 H 100 Mechanical Ventilation 50 05/27/24 12:55 97 Mechanical Ventilation 05/27/24 12:40 89 95 Mechanical Ventilation 50 05/27/24 12:38 89 14 85/52 L 05/27/24 12:32 89 19 134/121 H 97 Intake/Output Intake/Output: Intake & Output 05/25/24 05/26/24 05/27/24 05/28/24 23:59 23:59 23:59 23:59 Intake Total 946.7 752.6 Output Total 0 300 Balance 946.7 452.6 Meds/Results Medications: Active Medications Generic Name Dose Route Start Last Admin Trade Name Freq PRN Reason Stop Dose Admin Albuterol/Ipratropium 3 ml 05/27/24 15:02 05/28/24 07:44 Ipratropium 0.5 Mg/Albuterol Sulfate 2.5 Mg Ampul.Neb 3 Ml INHALATION 3 ml Q6HRT PRN Administration Wheezing Aspirin 325 mg 05/28/24 08:00 05/28/24 07:55 Aspirin 325 Mg Tablet FEED TUBE 325 mg DAILY@0800 JAZMIN Administration Clopidogrel Bisulfate 75 mg 05/28/24 09:00 05/28/24 07:55 Clopidogrel Bisulfate 75 Mg Tablet FEED TUBE 75 mg QAM JAZMIN Administration Dextrose 12.5 gm 05/27/24 14:50 Dextrose 50% 25 Gm/50 Ml Syringe IV PUSH PRN PRN Hypoglycemia Protocol Enoxaparin Sodium 30 mg 05/28/24 09:00 05/28/24 07:56 Enoxaparin 30 Mg/0.3 Ml Syringe SUB-Q 30 mg DAILY JAZMIN Administration Glucagon 1 mg 05/27/24 14:50 Glucagon For Inj 1 Mg Vial IM PRN PRN Hypoglycemia Protocol Glucose 15 gm 05/27/24 14:50 Glucose Oral Gel 15 Gm Of Glucse In 37.5 Gm Tube PO PRN PRN Hypoglycemia Protocol Midazolam HCl 100 mg in 100 mls @ 3 mls/hr 05/27/24 13:38 05/27/24 16:30 Versed 100 Mg/Ns 100 Ml IV CONT 05/28/24 22:57 Infused .[id number] STA Titration Protocol 3 MG/HR Cisatracurium Besylate 200 mg/ 100 mls @ 7.602 mls/hr 05/27/24 14:50 05/28/24 10:00 Sodium Chloride IV CONT 3.5 mcg/kg/min .[id number] JAZMIN 7.6 mls/hr Titration Protocol 3.5 MCG/KG/MIN Fentanyl Citrate 2,500 mcg in 250 mls @ 2.5 mls/hr 05/27/24 14:50 05/28/24 10:00 Fentanyl 2,500 Mcg/Ns 250 Ml IV CONT 50 mcg/hr .Q72H JAZMIN 5 mls/hr Titration Protocol 25 MCG/HR Propofol 100 mls @ 8.688 mls/hr 05/27/24 14:50 05/28/24 11:37 Diprivan IV CONT 20 mcg/kg/min .[id number] JAZMIN 8.69 mls/hr Administration Protocol 20 MCG/KG/MIN Dextrose 1,000 mls @ 100 mls/hr 05/27/24 14:50 Dextrose 5% 1,000 Ml IVPB PRN PRN Hypoglycemia Protocol Levetiracetam 500 mg in 100 mls @ 400 mls/hr 05/27/24 21:00 05/28/24 08:10 Keppra Iv IVPB Infused Q12HR [facility] Infusion Metronidazole 500 mg in 100 mls @ 100 mls/hr 05/28/24 04:00 05/28/24 11:39 Flagyl 500 Mg/Iso Soln 100 Ml IVPB 100 mls/hr Q8H [facility] Administration Norepinephrine Bitartrate 8 mg in 250 mls @ 26.25 mls/hr 05/28/24 05:20 05/28/24 10:00 Levophed 8 Mg/D5w 250 Ml IV CONT 14 mcg/min .Q9H32M JAZMIN 26.25 mls/hr Titration Protocol 14 MCG/MIN Cefepime HCl 1 gm in 50 mls @ 100 mls/hr 05/28/24 18:00 Maxipime 1 Gm/Ns 50 Ml IVPB DAILY@1800 [facility] Insulin Aspart 3 - 6 units 05/28/24 00:00 05/28/24 09:26 Insulin Aspart (*Bkc) 100 Units/Ml SUB-Q Not Given Q4HR [facility] Protocol Midazolam HCl 2 mg 05/27/24 14:50 Midazolam Hcl (*Crx) 2 Mg/2 Ml Vial IV PUSH Q5M PRN ventilator asynchrony Multi-Ingred Cream/Lotion/Oil/Oint 1 applic 05/27/24 21:00 05/28/24 07:56 Mineral Oil/White Petrolatum Ointment EACH EYE 1 applic Q12HR JAZMIN Administration Ondansetron HCl 4 mg 05/27/24 14:13 Ondansetron Inj 4 Mg/2 Ml Vial IV PUSH Q4H PRN Nausea Pantoprazole Sodium 40 mg 05/28/24 09:00 05/28/24 07:56 Pantoprazole Sodium Iv 40 Mg Vial IV PUSH 40 mg DAILY JAZMIN Administration Sodium Chloride 10 ml 05/28/24 14:00 Central Line Flush IV PUSH Q8HR [facility] Sodium Chloride 20 ml 05/28/24 10:09 Central Line Flush IV PUSH PRN PRN after blood draws Radiology Results: ITS Impressions Abdomen X-Ray 05/27/24 13:15 IMPRESSION: 1: NG tube tip in the stomach. Head CT 05/27/24 14:03 IMPRESSION: 1. No acute intracranial process. 2. Age-related changes including mild diffuse volume loss and unchanged mild scattered nonspecific cerebral white matter hypoattenuation consistent with chronic small vessel ischemic disease. Chest/Abdomen/Pelvis CTA 05/27/24 14:18 IMPRESSION: 1. Diffuse bilateral lung disease with most dense consolidation in the dependent right lower lobe. Would favor multifocal pneumonia over pulmonary edema. 2. Radiographically uncomplicated distal descending colon diverticulitis. 3. Endotracheal tube tip at the entrance to the left mainstem bronchus. Recommend withdrawal by 3 cm. This and the above 2 findings were discussed with Dr. Gordon at 2:30 PM. 4. Cardiomegaly with left heart predominance. 5. Enlargement of the central pulmonary arteries consistent with pulmonary arterial hypertension. No evident pulmonary embolism. 5. Small sliding-type hiatal hernia. 6. Severe bilateral renal atrophy. 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 Chest X-Ray 05/28/24 06:26 Impression: Probable mild bibasilar pulmonary edema/atelectasis with minimal pleural effusions. Developing hazy airspace opacity left upper lobe which could reflect additional pulmonary edema versus possibly focal pneumonia. Support tubes, as above. Labs Labs: Laboratory Tests 05/28/24 05:04 05/28/24 03:19 PT 16.5 H INR 1.3 Lactic Acid 2.0 Calcium 9.5 Phosphorus 4.4 Magnesium 1.7 Total Creatine Kinase 1008 H Troponin I 19.900 H* Digoxin 2.0 Microbiology 05/27/24 14:51 Blood Blood Culture - Preliminary 05/27/24 14:51 Blood Blood Culture - Preliminary
--- NOTE | 2024-05-28 09:45 | P.PNINT_ITS ---
Progress Note: A&P Assessment and Plan (1) Acute respiratory failure with hypoxia: Code(s): J96.01 - Acute respiratory failure with hypoxia Status: Acute Assessment and Plan: Acute Respiratory failure secondary to cardiac arrest, aspiration pneumonia, pulmonary edema Patient now intubated and on mechanical ventilation Ventilator settings reviewed currently on 50% FiO2 and [address] scan reviewed. ABG reviewed Negative flu RSV and COVID PCR P.r.n. bronchodilators Wean oxygen Blood cultures and sputum culture MRSA screen negative Empiric cefepime and Flagyl. Will discontinue vancomycin (2) Anoxic brain injury: Code(s): G93.1 - Anoxic brain damage, not elsewhere classified Status: Acute Assessment and Plan: Patient has sustained anoxic brain injury secondary to cardiac arrest as per exam of a mention Patient has been started on therapeutic hypothermia protocol to keep her temperature below 36 C for [address] was negative on presentation Will repeat CT scan in 48-72 hours and also evaluate the need for EEG once patient is rewarmed At this time patient is now on sedation and paralyzed with them (3) Cardiac arrest: Code(s): I46.9 - Cardiac arrest, cause unspecified Status: Acute Assessment and Plan: Patient presented with VFib cardiac arrest. She has a background history of n onischemic cardiomyopathy, AFib status post Watchman procedure. She also has elevated troponin CTA was negative for PE at the time of presentation She was given amiodarone bolus and started on amiodarone infusion She had 2 episodes of VFib events overnight requiring DC defibrillation Echocardiogram done today shows EF of 20-25% with severely go be reduced function. Diastolic dysfunction severe aortic sclerosis and moderate aortic stenosis. [id number] MR Patient was evaluated by Cardiology no further recommendations at this time Serial troponin were done EKG reviewed Echo Summary 1. Definity contrast administered improved wall motion interpretation. 2. Left ventricular chamber dimension is severely enlarged. 3. Left ventricular systolic function is severely globally reduced, estimated at 20-25%. 4. There is mild concentric increased left ventricular wall thickness. 5. The left ventricular diastolic function is abnormal. 6. E/e' 23 is significantly elevated. 7. Left atrial chamber dimension is severely enlarged. 8. There is severe aortic valve sclerosis. 9. There is moderate aortic valve stenosis with a peak velocity of 155.81 cm/s, mean gradient of 5 mmHg, and aortic valve area of 1.29 cm2. 10. There is mild to moderate mitral valve regurgitation. 11. There is mild tricuspid valve regurgitation. 12. No pulmonary hypertension, estimated pulmonary arterial systolic pressure is 27 mmHg. (4) Non-ischemic cardiomyopathy: Code(s): I42.8 - Other cardiomyopathies Status: Acute Assessment and Plan: See above (5) Combined systolic and diastolic congestive heart failure: Code(s): I50.40 - Unspecified combined systolic (congestive) and diastolic (congestive) heart failure Status: Acute Assessment and Plan: See above (6) Paroxysmal atrial fibrillation: Code(s): I48.0 - Paroxysmal atrial fibrillation Status: Acute Assessment and Plan: Status post Watchman procedure Not on anticoagulation likely secondary to history of GI bleed Continue aspirin Plavix Amiodarone infusion (7) Hyperlipidemia: Code(s): E78.5 - Hyperlipidemia, unspecified Status: Acute Assessment and Plan: Hold statin due to elevated liver enzyme which are likely secondary to shock liver (8) End-stage renal disease on hemodialysis: Onset Date: 09/2009 Code(s): N18.6 - End stage renal disease; Z99.2 - Dependence on renal dialysis Status: Acute Assessment and Plan: Consult nephrology for hemodialysis (9) Chronic anemia: Code(s): D64.9 - Anemia, unspecified Status: Chronic Assessment and Plan: Monitor hemoglobin (10) CVA (cerebral vascular accident): Code(s): I63.9 - Cerebral infarction, unspecified Status: Acute Assessment and Plan: Continue aspirin Plavix. Hold statin (11) Chronic obstructive pulmonary disease: Code(s): J44.9 - Chronic obstructive pulmonary disease, unspecified Status: Acute Assessment and Plan: See above (12) Aspiration pneumonia: Code(s): J69.0 - Pneumonitis due to inhalation of food and vomit Status: Acute Assessment and Plan: See above (13) Pulmonary edema: Code(s): J81.1 - Chronic pulmonary edema Status: Acute Assessment and Plan: Will need hemodialysis once stabilized (14) Ventricular fibrillation: Code(s): I49.01 - Ventricular fibrillation Status: Acute Assessment and Plan: See above Plan DVT prophylaxis -Lovenox Stress ulcer prophylaxis -PPI Nutrition - npo Code Status - Full Code I spoke to patient 3 daughter, son and multiple other family members in the conference room and updated them with patient's current status including respiratory failure, cardiac arrest, cardiomyopathy with EF 20-25%, current treatment plan including targeted temperature management and possibility of her sustaining anoxic brain injury. I answered all their questions. Total Critical Care Time - 30 minutes Due to a high probability of clinically significant, life threatening deterioration, the patient required my highest level of preparedness to intervene emergently and I personally spent this critical care time directly and personally managing the patient. This critical care time included obtaining a history; examining the patient; pulse oximetry; ordering and review of studies; arranging urgent treatment with development of a management plan; evaluation of patient's response to treatment; frequent reassessment; and discussions with other providers. It was exclusive of separately billable procedures and treating other patients and teaching time. Please see Assessment and Plan section and the rest of the note for further information on patient assessment and treatment Subjective Date/time seen: 05/28/24 Overnight events reviewed. Patient was started on therapeutic hypothermia protocol and achieved her goal temperature at 7-8 p.m. She had 2 episode of VFib arrest overnight and required DC defibrillation. She is on amiodarone infusion She is also on norepinephrine infusion for blood pressure support She is sedated with propofol fentanyl and paralyzed with Nimbex She is on 50% FiO2 and 10 of PEEP Review of Systems Review of Systems: ROS unobtainable: Yes unobtainable due to endotracheal tube, unobtainable due to medical condition and unobtainable due to mental status Exam Narrative: General: Pt is was just sedated, chemically paralyzed, intubated and on mechanical ventilation. Lungs/Chest: Trachea central Coarse BS B/L, bibasilar crackle Cardiac: RRR. Normal S1 S2. No murmurs tachycardia Circulation: Feet are cold Abdomen: Decreased bowel sounds. Soft. NT. ND. Extremities: No clubbing, cyanosis or edema. Warm : Hoover in place Neurologic: Patient is currently sedated and paralyzed with Nimbex, PERRL sluggish, Objective Data Vital Signs Vital Signs: Vital Signs - 24 hr 05/27/24 11:45 05/27/24 11:45 05/27/24 12:32 Temperature Pulse Rate 89 Respiratory Rate 19 Blood Pressure 134/121 H Pulse Oximetry 97 97 97 Oxygen Delivery Bag Valve Mask Bag Valve Mask Fraction of Inspired Oxygen 05/27/24 12:38 05/27/24 12:40 05/27/24 12:55 Temperature Pulse Rate 89 89 Respiratory Rate 14 Blood Pressure 85/52 L Pulse Oximetry 95 97 Oxygen Delivery Mechanical Ventilation Mechanical Ventilation Fraction of Inspired Oxygen 50 05/27/24 14:05 05/27/24 14:08 05/27/24 14:13 Temperature Pulse Rate 107 H 109 H 110 H Respiratory Rate 27 H 22 H Blood Pressure Pulse Oximetry 100 Oxygen Delivery Mechanical Ventilation Fraction of Inspired Oxygen 50 05/27/24 14:26 05/27/24 14:35 05/27/24 14:37 Temperature 36.8 C Pulse Rate 109 H 112 H 112 H Respiratory Rate 26 H 28 H 25 H Blood Pressure 182/162 H Pulse Oximetry 100 Oxygen Delivery Fraction of Inspired Oxygen 05/27/24 14:40 05/27/24 16:10 05/27/24 16:12 Temperature Pulse Rate 114 H 106 H 107 H Respiratory Rate 27 H 27 H Blood Pressure Pulse Oximetry 100 Oxygen Delivery Mechanical Ventilation Fraction of Inspired Oxygen 50 05/27/24 16:13 05/27/24 16:14 05/27/24 16:20 Temperature 37.1 C Pulse Rate 106 H 108 H 103 H Respiratory Rate 30 H 32 H Blood Pressure 124/62 144/99 H Pulse Oximetry 96 Oxygen Delivery Fraction of Inspired Oxygen 05/27/24 16:30 05/27/24 16:30 05/27/24 16:30 Temperature Pulse Rate 117 H 95 92 Respiratory Rate 37 H 25 H 26 H Blood Pressure Pulse Oximetry Oxygen Delivery Fraction of Inspired Oxygen 05/27/24 16:30 05/27/24 16:40 05/27/24 16:46 Temperature Pulse Rate 98 104 H 103 H Respiratory Rate 28 H 32 H 35 H Blood Pressure Pulse Oximetry Oxygen Delivery Fraction of Inspired Oxygen 05/27/24 16:50 05/27/24 17:00 05/27/24 17:45 Temperature 36.9 C Pulse Rate 98 94 105 H Respiratory Rate 34 H 24 H Blood Pressure 141/71 H 124/88 Pulse Oximetry 99 Oxygen Delivery Fraction of Inspired Oxygen 05/27/24 17:50 05/27/24 18:00 05/27/24 18:00 Temperature 37.1 C 36.6 C Pulse Rate 101 H 85 72 Respiratory Rate 31 H 20 Blood Pressure 129/70 112/61 Pulse Oximetry 99 100 Oxygen Delivery Fraction of Inspired Oxygen 05/27/24 18:00 05/27/24 18:00 05/27/24 18:00 Temperature 36.8 C 36.6 C Pulse Rate 85 72 78 Respiratory Rate 19 20 20 Blood Pressure 112/61 109/40 L Pulse Oximetry 98 98 Oxygen Delivery Fraction of Inspired Oxygen 05/27/24 18:55 05/27/24 19:00 05/27/24 19:00 Temperature 36.4 C L 36.6 C Pulse Rate 98 78 62 Respiratory Rate 20 20 20 Blood Pressure 108/39 L 108/39 L Pulse Oximetry 100 100 Oxygen Delivery Fraction of Inspired Oxygen 05/27/24 19:23 05/27/24 20:00 05/27/24 20:00 Temperature 35.7 C L Pulse Rate 63 63 63 Respiratory Rate 20 20 Blood Pressure 102/69 118/39 L 118/39 L Pulse Oximetry 100 Oxygen Delivery Fraction of Inspired Oxygen 05/27/24 20:00 05/27/24 20:00 05/27/24 20:00 Temperature 35.7 C L Pulse Rate 63 60 Respiratory Rate 20 Blood Pressure 118/39 L Pulse Oximetry 100 100 Oxygen Delivery Mechanical Ventilation Fraction of Inspired Oxygen 50 05/27/24 20:00 05/27/24 20:00 05/27/24 20:00 Temperature Pulse Rate 63 63 63 Respiratory Rate 20 20 20 Blood Pressure 118/39 L Pulse Oximetry Oxygen Delivery Fraction of Inspired Oxygen 05/27/24 20:18 05/27/24 21:00 05/27/24 21:00 Temperature 34.8 C L Pulse Rate 58 L 58 L 58 L Respiratory Rate 20 Blood Pressure 98/84 L 98/84 L Pulse Oximetry 100 100 Oxygen Delivery Mechanical Ventilation Fraction of Inspired Oxygen 50 05/27/24 21:00 05/27/24 22:00 05/27/24 22:00 Temperature 34.8 C L 35 C L Pulse Rate 58 L 74 64 Respiratory Rate 20 20 Blood Pressure 98/84 L 101/33 L Pulse Oximetry 100 100 Oxygen Delivery Fraction of Inspired Oxygen 05/27/24 22:00 05/27/24 22:00 05/27/24 22:00 Temperature 35 C L Pulse Rate 74 64 64 Respiratory Rate 20 20 Blood Pressure 101/33 L 101/33 L 101/33 L Pulse Oximetry 100 Oxygen Delivery Fraction of Inspired Oxygen 05/27/24 22:00 05/27/24 22:00 05/27/24 22:15 Temperature Pulse Rate 64 64 Respiratory Rate 20 20 Blood Pressure 116/37 L Pulse Oximetry Oxygen Delivery Fraction of Inspired Oxygen 05/27/24 22:30 05/27/24 23:15 05/27/24 23:15 Temperature 36.0 C L 36.0 C L 36.0 C L Pulse Rate 75 75 Respiratory Rate 20 20 Blood Pressure 130/37 L 125/89 125/89 Pulse Oximetry 97 97 Oxygen Delivery Fraction of Inspired Oxygen 05/27/24 23:15 05/27/24 23:26 05/28/24 00:00 Temperature Pulse Rate 75 76 Respiratory Rate 20 Blood Pressure 125/89 Pulse Oximetry 100 97 Oxygen Delivery Mechanical Ventilation Mechanical Ventilation Fraction of Inspired Oxygen 50 50 05/28/24 00:00 05/28/24 00:00 05/28/24 00:00 Temperature 36.1 C L 36.1 C L Pulse Rate 66 64 66 Respiratory Rate 20 20 Blood Pressure 127/77 127/77 Pulse Oximetry 97 97 Oxygen Delivery Fraction of Inspired Oxygen 05/28/24 00:00 05/28/24 00:00 05/28/24 00:00 Temperature Pulse Rate 66 66 66 Respiratory Rate 20 20 Blood Pressure 127/77 127/77 Pulse Oximetry Oxygen Delivery Fraction of Inspired Oxygen 05/28/24 00:00 05/28/24 00:15 05/28/24 01:00 Temperature 35.2 C L Pulse Rate 66 69 55 L Respiratory Rate 20 28 H 20 Blood Pressure 99/64 L Pulse Oximetry 97 Oxygen Delivery Fraction of Inspired Oxygen 05/28/24 01:00 05/28/24 01:30 05/28/24 01:30 Temperature 35.2 C L Pulse Rate 55 L 56 L 56 L Respiratory Rate 20 20 20 Blood Pressure 99/64 L Pulse Oximetry 97 Oxygen Delivery Fraction of Inspired Oxygen 05/28/24 02:00 05/28/24 02:00 05/28/24 02:00 Temperature 35.5 C L 35.5 C L Pulse Rate 63 64 64 Respiratory Rate 20 20 Blood Pressure 100/65 100/65 Pulse Oximetry 90 90 Oxygen Delivery Fraction of Inspired Oxygen 05/28/24 02:00 05/28/24 02:00 05/28/24 02:00 Temperature Pulse Rate 64 64 64 Respiratory Rate 20 20 Blood Pressure 100/65 100/65 Pulse Oximetry Oxygen Delivery Fraction of Inspired Oxygen 05/28/24 02:00 05/28/24 02:11 05/28/24 02:17 Temperature Pulse Rate 64 68 68 Respiratory Rate 20 20 Blood Pressure Pulse Oximetry 98 Oxygen Delivery Mechanical Ventilation Fraction of Inspired Oxygen 50 05/28/24 03:34 05/28/24 04:00 05/28/24 04:00 Temperature Pulse Rate 68 71 71 Respiratory Rate Blood Pressure 107/72 119/84 119/84 Pulse Oximetry Oxygen Delivery Fraction of Inspired Oxygen 05/28/24 04:00 05/28/24 04:00 05/28/24 04:00 Temperature Pulse Rate 73 71 Respiratory Rate 20 20 Blood Pressure 119/84 Pulse Oximetry Oxygen Delivery Fraction of Inspired Oxygen 50 05/28/24 04:00 05/28/24 04:00 05/28/24 04:00 Temperature 36.5 C Pulse Rate 71 71 71 Respiratory Rate 20 20 Blood Pressure 119/84 Pulse Oximetry 100 Oxygen Delivery Fraction of Inspired Oxygen 05/28/24 04:00 05/28/24 04:30 05/28/24 04:30 Temperature Pulse Rate 60 60 Respiratory Rate 20 20 Blood Pressure 110/75 110/75 Pulse Oximetry 100 Oxygen Delivery Mechanical Ventilation Fraction of Inspired Oxygen 50 05/28/24 04:45 05/28/24 05:20 05/28/24 06:00 Temperature Pulse Rate 67 61 73 Respiratory Rate 20 Blood Pressure 69/56 L Pulse Oximetry 100 Oxygen Delivery Mechanical Ventilation Fraction of Inspired Oxygen 50 05/28/24 06:00 05/28/24 06:00 05/28/24 06:00 Temperature Pulse Rate 73 73 73 Respiratory Rate 20 20 Blood Pressure 100/65 100/65 Pulse Oximetry Oxygen Delivery Fraction of Inspired Oxygen 05/28/24 06:00 05/28/24 06:00 05/28/24 06:15 Temperature 35.8 C L Pulse Rate 73 73 70 Respiratory Rate 20 Blood Pressure 100/65 72/56 L Pulse Oximetry 100 Oxygen Delivery Fraction of Inspired Oxygen 05/28/24 06:48 05/28/24 07:00 05/28/24 07:05 Temperature 36.4 C L Pulse Rate 105 H 74 93 Respiratory Rate 20 Blood Pressure 110/65 Pulse Oximetry 87 L 100 92 Oxygen Delivery Mechanical Ventilation Fraction of Inspired Oxygen 100 05/28/24 07:20 05/28/24 07:30 05/28/24 07:37 Temperature Pulse Rate 74 75 77 Respiratory Rate Blood Pressure 103/80 103/80 Pulse Oximetry 100 Oxygen Delivery Fraction of Inspired Oxygen 80 05/28/24 07:47 05/28/24 08:00 05/28/24 08:13 Temperature 36.4 C L Pulse Rate 81 77 78 Respiratory Rate 20 Blood Pressure 127/77 Pulse Oximetry 100 100 100 Oxygen Delivery Mechanical Ventilation Fraction of Inspired Oxygen 60 50 05/28/24 08:13 05/28/24 08:30 05/28/24 08:45 Temperature Pulse Rate 78 72 71 Respiratory Rate 20 20 Blood Pressure 83/66 L Pulse Oximetry Oxygen Delivery Fraction of Inspired Oxygen 05/28/24 09:10 05/28/24 09:13 05/28/24 09:13 Temperature Pulse Rate 71 78 71 Respiratory Rate Blood Pressure 65/53 L 72/52 L 78/65 L Pulse Oximetry Oxygen Delivery Fraction of Inspired Oxygen Intake/Output Intake/Output: Intake & Output 05/25/24 05/26/24 05/27/24 05/28/24 23:59 23:59 23:59 23:59 Intake Total 946.7 632.8 Output Total 0 300 Balance 946.7 332.8 Meds/Results Medications: Active Medications Generic Name Dose Route Start Last Admin Trade Name Freq PRN Reason Stop Dose Admin Albuterol/Ipratropium 3 ml 05/27/24 15:02 05/28/24 07:44 Ipratropium 0.5 Mg/Albuterol Sulfate 2.5 Mg Ampul.Neb 3 Ml INHALATION 3 ml Q6HRT PRN Administration Wheezing Aspirin 325 mg 05/28/24 08:00 05/28/24 07:55 Aspirin 325 Mg Tablet FEED TUBE 325 mg DAILY@0800 JAZMIN Administration Clopidogrel Bisulfate 75 mg 05/28/24 09:00 05/28/24 07:55 Clopidogrel Bisulfate 75 Mg Tablet FEED TUBE 75 mg QAM JAZMIN Administration Dextrose 12.5 gm 05/27/24 14:50 Dextrose 50% 25 Gm/50 Ml Syringe IV PUSH PRN PRN Hypoglycemia Protocol Enoxaparin Sodium 30 mg 05/28/24 09:00 05/28/24 07:56 Enoxaparin 30 Mg/0.3 Ml Syringe SUB-Q 30 mg DAILY JAZMIN Administration Glucagon 1 mg 05/27/24 14:50 Glucagon For Inj 1 Mg Vial IM PRN PRN Hypoglycemia Protocol Glucose 15 gm 05/27/24 14:50 Glucose Oral Gel 15 Gm Of Glucse In 37.5 Gm Tube PO PRN PRN Hypoglycemia Protocol Cefepime HCl 2 gm in 50 mls @ 100 mls/hr 05/28/24 18:00 Maxipime 2 Gm/Ns 50 Ml IVPB Q24H JAZMIN Midazolam HCl 100 mg in 100 mls @ 3 mls/hr 05/27/24 13:38 05/27/24 16:30 Versed 100 Mg/Ns 100 Ml IV CONT 05/28/24 22:57 Infused .[id number] STA Titration Protocol 3 MG/HR Cisatracurium Besylate 200 mg/ 100 mls @ 7.602 mls/hr 05/27/24 14:50 05/28/24 06:00 Sodium Chloride IV CONT 3.5 mcg/kg/min .[id number] JAZMIN 7.6 mls/hr Titration Protocol 3.5 MCG/KG/MIN Fentanyl Citrate 2,500 mcg in 250 mls @ 2.5 mls/hr 05/27/24 14:50 05/28/24 06:00 Fentanyl 2,500 Mcg/Ns 250 Ml IV CONT 50 mcg/hr .Q72H JAZMIN 5 mls/hr Titration Protocol 25 MCG/HR Propofol 100 mls @ 8.688 mls/hr 05/27/24 14:50 05/28/24 06:00 Diprivan IV CONT 20 mcg/kg/min .[id number] JAZMIN 8.69 mls/hr Titration Protocol 20 MCG/KG/MIN Dextrose 1,000 mls @ 100 mls/hr 05/27/24 14:50 Dextrose 5% 1,000 Ml IVPB PRN PRN Hypoglycemia Protocol Levetiracetam 500 mg in 100 mls @ 400 mls/hr 05/27/24 21:00 05/28/24 08:10 Keppra Iv IVPB Infused Q12HR JAZMIN Infusion Metronidazole 500 mg in 100 mls @ 100 mls/hr 05/28/24 04:00 05/28/24 06:00 Flagyl 500 Mg/Iso Soln 100 Ml IVPB Infused Q8H JAZMIN Infusion Norepinephrine Bitartrate 8 mg in 250 mls @ 26.25 mls/hr 05/28/24 05:20 05/28/24 09:13 Levophed 8 Mg/D5w 250 Ml IV CONT 14 mcg/min .[id number] JAZMIN 26.25 mls/hr Titration Protocol 14 MCG/MIN Insulin Aspart 3 - 6 units 05/28/24 00:00 05/28/24 09:26 Insulin Aspart (*Bkc) 100 Units/Ml SUB-Q Not Given Q4HR JAZMIN Protocol Midazolam HCl 2 mg 05/27/24 14:50 Midazolam Hcl (*Crx) 2 Mg/2 Ml Vial IV PUSH Q5M PRN ventilator asynchrony Multi-Ingred Cream/Lotion/Oil/Oint 1 applic 05/27/24 21:00 05/28/24 07:56 Mineral Oil/White Petrolatum Ointment EACH EYE 1 applic Q12HR JAZMIN Administration Ondansetron HCl 4 mg 05/27/24 14:13 Ondansetron Inj 4 Mg/2 Ml Vial IV PUSH Q4H PRN Nausea Pantoprazole Sodium 40 mg 05/28/24 09:00 05/28/24 07:56 Pantoprazole Sodium Iv 40 Mg Vial IV PUSH 40 mg DAILY JAZMIN Administration Radiology Results: ITS Impressions Abdomen X-Ray 05/27/24 13:15 IMPRESSION: 1: NG tube tip in the stomach. Head CT 05/27/24 14:03 IMPRESSION: 1. No acute intracranial process. 2. Age-related changes including mild diffuse volume loss and unchanged mild scattered nonspecific cerebral white matter hypoattenuation consistent with chronic small vessel ischemic disease. Chest/Abdomen/Pelvis CTA 05/27/24 14:18 IMPRESSION: 1. Diffuse bilateral lung disease with most dense consolidation in the dependent right lower lobe. Would favor multifocal pneumonia over pulmonary edema. 2. Radiographically uncomplicated distal descending colon diverticulitis. 3. Endotracheal tube tip at the entrance to the left mainstem bronchus. Recommend withdrawal by 3 cm. This and the above 2 findings were discussed with Dr. Gordon at 2:30 PM. 4. Cardiomegaly with left heart predominance. 5. Enlargement of the central pulmonary arteries consistent with pulmonary arterial hypertension. No evident pulmonary embolism. 5. Small sliding-type hiatal hernia. 6. Severe bilateral renal atrophy. 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 Chest X-Ray 05/28/24 06:26 Impression: Probable mild bibasilar pulmonary edema/atelectasis with minimal pleural effusions. Developing hazy airspace opacity left upper lobe which could reflect additional pulmonary edema versus possibly focal pneumonia. Support tubes, as above. Labs Labs: Laboratory Results - last 24 hr 05/27/24 05/27/24 05/27/24 12:52 14:51 15:07 WBC 20.8 H RBC 3.57 L Hgb 9.3 L Hct 32.9 L MCV 92.2 MCH 26.1 MCHC 28.3 L RDW 17.1 H Plt Count 352 MPV 10.3 Immature Gran % (Auto) 6.1 H Neut % (Auto) 49.2 Lymph % (Auto) 40.0 [place] % (Auto) 3.4 Eos % (Auto) 1.1 Baso % (Auto) 0.2 Lymph # (Auto) 8.30 H [place] # (Auto) 0.7 H Eos # (Auto) 0.2 Baso # (Auto) 0.1 Abs Immat Gran (auto) 1.27 H Absolute Neuts (auto) 10.2 H Absolute Nucleated RBC 0.090 H Band Neutrophils % Not Reportable Nucleated RBC % 0.4 H Atypical Lymphocytes Present Platelet Estimate Adequate Anisocytosis 1+ Schistocytes None seen PT 15.2 H INR 1.2 APTT 35.9 Puncture Site Right radial ABG pH 7.387 ABG pCO2 30.4 L ABG pO2 91.2 ABG PO2/FiO2 Ratio 1.82 ABG HCO3 17.9 L ABG O2 Saturation 97.0 ABG O2 Content 14.9 L ABG Base Excess -6.1 A-a Gradient 231.1 Oxyhemoglobin 94.9 Carboxyhemoglobin 1.7 Methemoglobin 0.3 Reduced Hemoglobin 3.1 Total Hemoglobin 11.1 L O2 Delivery Device Ventilator O2 Liters/Min 0.0 Minute Volume Not Reportable Vent Rate 20 Vent Mode Cmv FiO2 50 Tidal Volume 420 PEEP 5 Peak Inspir Pressure Not Reportable Pressure Support 0 Sodium 139 Potassium 4.2 Chloride 95 L Carbon Dioxide 22 Anion Gap 22 H BUN 20 H D Creatinine 5.62 H Estim Creat Clear Calc 8 Estimated GFR 7 L Glucose 276 H POC Capillary Glucose Lactic Acid 11.3 H* Calcium 11.2 H Phosphorus Magnesium Total Bilirubin 0.8 Direct Bilirubin AST 271 H ALT 135 H Alkaline Phosphatase 142 H Total Creatine Kinase Troponin I 0.131 H* NT-Pro-B Natriuret Pep > 96137 H Total Protein 7.0 Albumin 3.7 Triglycerides Procalcitonin 1.2 Nasal MRSA (PCR) Random Vancomycin Digoxin 0.7 L Influenza A (RT-PCR) Influenza B (RT-PCR) RSV (RT-PCR) SARS-CoV-2 RNA (RT-PCR) 05/27/24 05/27/24 05/27/24 15:28 15:28 16:16 WBC RBC Hgb Hct MCV MCH MCHC RDW Plt Count MPV Immature Gran % (Auto) Neut % (Auto) Lymph % (Auto) [place] % (Auto) Eos % (Auto) Baso % (Auto) Lymph # (Auto) [place] # (Auto) Eos # (Auto) Baso # (Auto) Abs Immat Gran (auto) Absolute Neuts (auto) Absolute Nucleated RBC Band Neutrophils % Nucleated RBC % Atypical Lymphocytes Platelet Estimate Anisocytosis Schistocytes PT 15.0 H INR 1.1 APTT 33.2 Puncture Site ABG pH ABG pCO2 ABG pO2 ABG PO2/FiO2 Ratio ABG HCO3 ABG O2 Saturation ABG O2 Content ABG Base Excess A-a Gradient Oxyhemoglobin Carboxyhemoglobin Methemoglobin Reduced Hemoglobin Total Hemoglobin O2 Delivery Device O2 Liters/Min Minute Volume Vent Rate Vent Mode FiO2 Tidal Volume PEEP Peak Inspir Pressure Pressure Support Sodium 137 Potassium 4.6 Chloride 95 L Carbon Dioxide 20 L Anion Gap 22 H BUN 25 H Creatinine 5.79 H Estim Creat Clear Calc 8 Estimated GFR 7 L Glucose 260 H POC Capillary Glucose Lactic Acid 9.3 H* 9.5 H* Calcium 10.2 Phosphorus 7.0 H Magnesium 1.9 Total Bilirubin Direct Bilirubin AST ALT Alkaline Phosphatase Total Creatine Kinase 619 H Cancelled Troponin I 2.780 H* D NT-Pro-B Natriuret Pep Total Protein Albumin Triglycerides 183 H Procalcitonin Nasal MRSA (PCR) Not detected Random Vancomycin Digoxin Influenza A (RT-PCR) Negative Influenza B (RT-PCR) Negative RSV (RT-PCR) Negative SARS-CoV-2 RNA (RT-PCR) Negative 05/27/24 05/27/24 05/27/24 16:53 18:15 19:16 WBC RBC Hgb Hct MCV MCH MCHC RDW Plt Count MPV Immature Gran % (Auto) Neut % (Auto) Lymph % (Auto) [place] % (Auto) Eos % (Auto) Baso % (Auto) Lymph # (Auto) [place] # (Auto) Eos # (Auto) Baso # (Auto) Abs Immat Gran (auto) Absolute Neuts (auto) Absolute Nucleated RBC Band Neutrophils % Nucleated RBC % Atypical Lymphocytes Platelet Estimate Anisocytosis Schistocytes PT INR APTT Puncture Site ABG pH ABG pCO2 ABG pO2 ABG PO2/FiO2 Ratio ABG HCO3 ABG O2 Saturation ABG O2 Content ABG Base Excess A-a Gradient Oxyhemoglobin Carboxyhemoglobin Methemoglobin Reduced Hemoglobin Total Hemoglobin O2 Delivery Device O2 Liters/Min Minute Volume Vent Rate Vent Mode FiO2 Tidal Volume PEEP Peak Inspir Pressure Pressure Support Sodium Potassium Chloride Carbon Dioxide Anion Gap BUN Creatinine Estim Creat Clear Calc Estimated GFR Glucose POC Capillary Glucose 218 H 192 H Lactic Acid Calcium Phosphorus Magnesium Total Bilirubin Direct Bilirubin AST ALT Alkaline Phosphatase Total Creatine Kinase Troponin I 13.800 H* D NT-Pro-B Natriuret Pep Total Protein Albumin Triglycerides Procalcitonin Nasal MRSA (PCR) Random Vancomycin Digoxin Influenza A (RT-PCR) Influenza B (RT-PCR) RSV (RT-PCR) SARS-CoV-2 RNA (RT-PCR) 05/27/24 05/27/24 05/27/24 19:18 20:56 20:59 WBC RBC Hgb Hct MCV MCH MCHC RDW Plt Count MPV Immature Gran % (Auto) Neut % (Auto) Lymph % (Auto) [place] % (Auto) Eos % (Auto) Baso % (Auto) Lymph # (Auto) [place] # (Auto) Eos # (Auto) Baso # (Auto) Abs Immat Gran (auto) Absolute Neuts (auto) Absolute Nucleated RBC Band Neutrophils % Nucleated RBC % Atypical Lymphocytes Platelet Estimate Anisocytosis Schistocytes PT INR APTT Puncture Site ABG pH ABG pCO2 ABG pO2 ABG PO2/FiO2 Ratio ABG HCO3 ABG O2 Saturation ABG O2 Content ABG Base Excess A-a Gradient Oxyhemoglobin Carboxyhemoglobin Methemoglobin Reduced Hemoglobin Total Hemoglobin O2 Delivery Device O2 Liters/Min Minute Volume Vent Rate Vent Mode FiO2 Tidal Volume PEEP Peak Inspir Pressure Pressure Support Sodium Potassium Chloride Carbon Dioxide Anion Gap BUN Creatinine Estim Creat Clear Calc Estimated GFR Glucose POC Capillary Glucose 159 H 171 H Lactic Acid 3.5 H Calcium Phosphorus Magnesium Total Bilirubin Direct Bilirubin AST ALT Alkaline Phosphatase Total Creatine Kinase Troponin I NT-Pro-B Natriuret Pep Total Protein Albumin Triglycerides Procalcitonin Nasal MRSA (PCR) Random Vancomycin Digoxin Influenza A (RT-PCR) Influenza B (RT-PCR) RSV (RT-PCR) SARS-CoV-2 RNA (RT-PCR) 05/27/24 05/27/24 05/28/24 22:10 23:20 00:21 WBC RBC Hgb Hct MCV MCH MCHC RDW Plt Count MPV Immature Gran % (Auto) Neut % (Auto) Lymph % (Auto) [place] % (Auto) Eos % (Auto) Baso % (Auto) Lymph # (Auto) [place] # (Auto) Eos # (Auto) Baso # (Auto) Abs Immat Gran (auto) Absolute Neuts (auto) Absolute Nucleated RBC Band Neutrophils % Nucleated RBC % Atypical Lymphocytes Platelet Estimate Anisocytosis Schistocytes PT INR APTT Puncture Site ABG pH ABG pCO2 ABG pO2 ABG PO2/FiO2 Ratio ABG HCO3 ABG O2 Saturation ABG O2 Content ABG Base Excess A-a Gradient Oxyhemoglobin Carboxyhemoglobin Methemoglobin Reduced Hemoglobin Total Hemoglobin O2 Delivery Device O2 Liters/Min Minute Volume Vent Rate Vent Mode FiO2 Tidal Volume PEEP Peak Inspir Pressure Pressure Support Sodium Potassium Chloride Carbon Dioxide Anion Gap BUN Creatinine Estim Creat Clear Calc Estimated GFR Glucose POC Capillary Glucose 152 H 172 H 135 H Lactic Acid Calcium Phosphorus Magnesium Total Bilirubin Direct Bilirubin AST ALT Alkaline Phosphatase Total Creatine Kinase Troponin I NT-Pro-B Natriuret Pep Total Protein Albumin Triglycerides Procalcitonin Nasal MRSA (PCR) Random Vancomycin Digoxin Influenza A (RT-PCR) Influenza B (RT-PCR) RSV (RT-PCR) SARS-CoV-2 RNA (RT-PCR) 05/28/24 05/28/24 05/28/24 00:33 01:44 02:45 WBC RBC Hgb Hct MCV MCH MCHC RDW Plt Count MPV Immature Gran % (Auto) Neut % (Auto) Lymph % (Auto) [place] % (Auto) Eos % (Auto) Baso % (Auto) Lymph # (Auto) [place] # (Auto) Eos # (Auto) Baso # (Auto) Abs Immat Gran (auto) Absolute Neuts (auto) Absolute Nucleated RBC Band Neutrophils % Nucleated RBC % Atypical Lymphocytes Platelet Estimate Anisocytosis Schistocytes PT INR APTT Puncture Site ABG pH ABG pCO2 ABG pO2 ABG PO2/FiO2 Ratio ABG HCO3 ABG O2 Saturation ABG O2 Content ABG Base Excess A-a Gradient Oxyhemoglobin Carboxyhemoglobin Methemoglobin Reduced Hemoglobin Total Hemoglobin O2 Delivery Device O2 Liters/Min Minute Volume Vent Rate Vent Mode FiO2 Tidal Volume PEEP Peak Inspir Pressure Pressure Support Sodium Potassium Chloride Carbon Dioxide Anion Gap BUN Creatinine Estim Creat Clear Calc Estimated GFR Glucose POC Capillary Glucose 150 H 127 H Lactic Acid Calcium Phosphorus Magnesium Total Bilirubin Direct Bilirubin AST ALT Alkaline Phosphatase Total Creatine Kinase Troponin I 20.000 H* D NT-Pro-B Natriuret Pep Total Protein Albumin Triglycerides Procalcitonin Nasal MRSA (PCR) Random Vancomycin Digoxin Influenza A (RT-PCR) Influenza B (RT-PCR) RSV (RT-PCR) SARS-CoV-2 RNA (RT-PCR) 05/28/24 05/28/24 05/28/24 03:19 04:28 05:04 WBC 12.8 H RBC 3.34 L Hgb 8.8 L Hct 29.0 L MCV 86.8 D MCH 26.3 MCHC 30.3 L RDW 17.1 H Plt Count 244 MPV 9.8 Immature Gran % (Auto) Neut % (Auto) Lymph % (Auto) [place] % (Auto) Eos % (Auto) Baso % (Auto) Lymph # (Auto) [place] # (Auto) Eos # (Auto) Baso # (Auto) Abs Immat Gran (auto) Absolute Neuts (auto) Absolute Nucleated RBC Band Neutrophils % Nucleated RBC % Atypical Lymphocytes Platelet Estimate Anisocytosis Schistocytes PT 16.5 H INR 1.3 APTT 38.4 H Puncture Site Right radial ABG pH 7.492 H ABG pCO2 32.3 L ABG pO2 74.7 L ABG PO2/FiO2 Ratio 1.49 ABG HCO3 24.2 ABG O2 Saturation 96.1 ABG O2 Content 13.0 L ABG Base Excess 1.2 A-a Gradient 245.5 Oxyhemoglobin 93.7 Carboxyhemoglobin 1.0 Methemoglobin 0.3 Reduced Hemoglobin 5.0 Total Hemoglobin 9.8 L O2 Delivery Device Ventilator O2 Liters/Min Not Reportable Minute Volume Not Reportable Vent Rate 20 Vent Mode Cmv FiO2 50 Tidal Volume 420 PEEP 5 Peak Inspir Pressure Not Reportable Pressure Support Not Reportable Sodium 139 Potassium 3.8 Chloride 98 Carbon Dioxide 27 Anion Gap 14 H BUN 34 H Creatinine 6.43 H Estim Creat Clear Calc 7 Estimated GFR 6 L Glucose 131 H POC Capillary Glucose Lactic Acid 2.0 Calcium 9.5 Phosphorus 4.4 Magnesium 1.7 Total Bilirubin Direct Bilirubin AST ALT Alkaline Phosphatase Total Creatine Kinase 1008 H Troponin I 19.900 H* NT-Pro-B Natriuret Pep Total Protein Albumin Triglycerides Procalcitonin Nasal MRSA (PCR) Random Vancomycin Digoxin 2.0 Influenza A (RT-PCR) Influenza B (RT-PCR) RSV (RT-PCR) SARS-CoV-2 RNA (RT-PCR) 05/28/24 05/28/24 05/28/24 05:40 07:54 08:23 WBC RBC Hgb Hct MCV MCH MCHC RDW Plt Count MPV Immature Gran % (Auto) Neut % (Auto) Lymph % (Auto) [place] % (Auto) Eos % (Auto) Baso % (Auto) Lymph # (Auto) [place] # (Auto) Eos # (Auto) Baso # (Auto) Abs Immat Gran (auto) Absolute Neuts (auto) Absolute Nucleated RBC Band Neutrophils % Nucleated RBC % Atypical Lymphocytes Platelet Estimate Anisocytosis Schistocytes PT INR APTT Puncture Site ABG pH ABG pCO2 ABG pO2 ABG PO2/FiO2 Ratio ABG HCO3 ABG O2 Saturation ABG O2 Content ABG Base Excess A-a Gradient Oxyhemoglobin Carboxyhemoglobin Methemoglobin Reduced Hemoglobin Total Hemoglobin O2 Delivery Device O2 Liters/Min Minute Volume Vent Rate Vent Mode FiO2 Tidal Volume PEEP Peak Inspir Pressure Pressure Support Sodium Potassium Chloride Carbon Dioxide Anion Gap BUN Creatinine Estim Creat Clear Calc Estimated GFR Glucose POC Capillary Glucose 143 H 148 H Lactic Acid 2.3 H Calcium Phosphorus Magnesium Total Bilirubin 0.6 Direct Bilirubin 0.0 AST 416 H ALT 184 H Alkaline Phosphatase 158 H Total Creatine Kinase 826 H Troponin I NT-Pro-B Natriuret Pep Total Protein 6.0 L Albumin 3.2 L Triglycerides Procalcitonin Nasal MRSA (PCR) Random Vancomycin Cancelled Digoxin Influenza A (RT-PCR) Influenza B (RT-PCR) RSV (RT-PCR) SARS-CoV-2 RNA (RT-PCR) Quality VTE Prophylaxis VTE prophylaxis: pharmacologic ordered
[2024-05-28] MEDS: AMIODARONE 360 MG/D5W 200 ML 360 MG/200 ML BAG 16.67 MG IV CONT ×2 (09:52→21:11)
[2024-05-28 10:07] LABS: Reflex Lactic Acid Yes or No Add Lactic
[2024-05-28 10:08] LABS: Hepatitis B Surface Antigen Negative (Negative)
[2024-05-28 10:34] LABS: Hepatitis B Surface Anti Res Positive
[2024-05-28 10:44] LABS: Glucose Point of Care 154 mg/dl (65-105)
[2024-05-28 12:24] LABS: Glucose Point of Care 144 mg/dl (65-105)
[2024-05-28 12:27] LABS: Lactic Acid 3.1 mmol/L (0.7-2.0)
--- NOTE | 2024-05-28 12:33 | PM.PNCARD ---
Progress Note: A&P Assessment and Plan (1) Cardiac arrest with ventricular fibrillation: Code(s): I46.9 - Cardiac arrest, cause unspecified; I49.01 - Ventricular fibrillation Status: Acute Plan 68-year-old woman with ESRD on HD, congestive heart failure (LVEF 30-35%), paroxysmal atrial fibrillation status post Watchman now on dual anti-platelet therapy, diabetes, and LENORA was in her car with her family after completing hemodialysis when she suddenly went into cardiac arrest Cardiac arrest - Her post-ROSC EKG showed atrial fibrillation with baseline left bundle-branch block similar to previous EKGs - Echocardiogram shows LVEF 20-25%, severely enlarged LA, moderate , mild-moderate MR, mild TR - Continue supportive care however with a down time of 1 hour and a presenting lactate of 11, prognosis is grim - Recommend defining her neurological status - Would continue amiodarone drip Chronic systolic heart failure - Nonischemic with cardiac catheterization and 2022 showing nonobstructive coronary artery disease - Hold off on guideline directed medical therapy at this time - If she makes meaningful recovery, would recommend transfer for consideration of ICD implantation Paroxysmal atrial fibrillation status post Watchman - she is on Aspirin and Plavix outpatient, continue Primary rn on site is Dr. Ann with [facility]. Recommendations and plan were discussed with ICU Physician. Subjective Date/time seen: 05/28/24 12:33 Interval history: Reason for visit: Cardiac arrest HPI: 68-year-old woman with ESRD on HD, congestive heart failure (LVEF 30-35%), paroxysmal atrial fibrillation status post Watchman now on dual anti-platelet therapy, diabetes, and LENORA was in her car with her family after completing hemodialysis when she suddenly went into cardiac arrest. Upon EMS CPR was initiated and patient continued to have compressions upon arrival in the emergency room. She has been having ventricular fibrillation rhythm throughout her code with 1 episode of PEA. She also received bolus doses of amiodarone. Her total time down was about an hour. She was previously functionally independent per documentation from previous admissions. Currently she is intubated and sedated without any pressor requirements. Date of service 05/29: Remains intubated, sedated. On cooling protocol, the rewarming phase will begin this evening. Overnight, had 2 VFIB events resulting in defibrillations. Started on Amiodarone drip subsequently. Review of Systems Review of Systems: ROS unobtainable: Yes unobtainable due to endotracheal tube and unobtainable due to medical condition Exam Const: Other: Critically ill female, on multiple drips HENMT: Other: OETT in place Resp: Other: On mechanical ventilation Cardio: Rate: regular rate Rhythm: abnormal rhythm irregularly irregular Neuro: Other: Sedated Objective Data Vital Signs Vital Signs: Vital Signs - 24 hr 05/27/24 12:38 05/27/24 12:40 05/27/24 12:55 Temperature Pulse Rate 89 89 Respiratory Rate 14 Blood Pressure 85/52 L Pulse Oximetry 95 97 Oxygen Delivery Mechanical Ventilation Mechanical Ventilation Fraction of Inspired Oxygen 50 05/27/24 14:05 05/27/24 14:08 05/27/24 14:13 Temperature Pulse Rate 107 H 109 H 110 H Respiratory Rate 27 H 22 H Blood Pressure Pulse Oximetry 100 Oxygen Delivery Mechanical Ventilation Fraction of Inspired Oxygen 50 05/27/24 14:26 05/27/24 14:35 05/27/24 14:37 Temperature 36.8 C Pulse Rate 109 H 112 H 112 H Respiratory Rate 26 H 28 H 25 H Blood Pressure 182/162 H Pulse Oximetry 100 Oxygen Delivery Fraction of Inspired Oxygen 05/27/24 14:40 05/27/24 16:10 05/27/24 16:12 Temperature Pulse Rate 114 H 106 H 107 H Respiratory Rate 27 H 27 H Blood Pressure Pulse Oximetry 100 Oxygen Delivery Mechanical Ventilation Fraction of Inspired Oxygen 50 05/27/24 16:13 05/27/24 16:14 05/27/24 16:20 Temperature 37.1 C Pulse Rate 106 H 108 H 103 H Respiratory Rate 30 H 32 H Blood Pressure 124/62 144/99 H Pulse Oximetry 96 Oxygen Delivery Fraction of Inspired Oxygen 05/27/24 16:30 05/27/24 16:30 05/27/24 16:30 Temperature Pulse Rate 117 H 95 92 Respiratory Rate 37 H 25 H 26 H Blood Pressure Pulse Oximetry Oxygen Delivery Fraction of Inspired Oxygen 05/27/24 16:30 05/27/24 16:40 05/27/24 16:46 Temperature Pulse Rate 98 104 H 103 H Respiratory Rate 28 H 32 H 35 H Blood Pressure Pulse Oximetry Oxygen Delivery Fraction of Inspired Oxygen 05/27/24 16:50 05/27/24 17:00 05/27/24 17:45 Temperature 36.9 C Pulse Rate 98 94 105 H Respiratory Rate 34 H 24 H Blood Pressure 141/71 H 124/88 Pulse Oximetry 99 Oxygen Delivery Fraction of Inspired Oxygen 05/27/24 17:50 05/27/24 18:00 05/27/24 18:00 Temperature 37.1 C 36.6 C Pulse Rate 101 H 85 72 Respiratory Rate 31 H 20 Blood Pressure 129/70 112/61 Pulse Oximetry 99 100 Oxygen Delivery Fraction of Inspired Oxygen 05/27/24 18:00 05/27/24 18:00 05/27/24 18:00 Temperature 36.8 C 36.6 C Pulse Rate 85 72 78 Respiratory Rate 19 20 20 Blood Pressure 112/61 109/40 L Pulse Oximetry 98 98 Oxygen Delivery Fraction of Inspired Oxygen 05/27/24 18:55 05/27/24 19:00 05/27/24 19:00 Temperature 36.4 C L 36.6 C Pulse Rate 98 78 62 Respiratory Rate 20 20 20 Blood Pressure 108/39 L 108/39 L Pulse Oximetry 100 100 Oxygen Delivery Fraction of Inspired Oxygen 05/27/24 19:23 05/27/24 20:00 05/27/24 20:00 Temperature 35.7 C L Pulse Rate 63 63 63 Respiratory Rate 20 20 Blood Pressure 102/69 118/39 L 118/39 L Pulse Oximetry 100 Oxygen Delivery Fraction of Inspired Oxygen 05/27/24 20:00 05/27/24 20:00 05/27/24 20:00 Temperature 35.7 C L Pulse Rate 63 60 Respiratory Rate 20 Blood Pressure 118/39 L Pulse Oximetry 100 100 Oxygen Delivery Mechanical Ventilation Fraction of Inspired Oxygen 50 05/27/24 20:00 05/27/24 20:00 05/27/24 20:00 Temperature Pulse Rate 63 63 63 Respiratory Rate 20 20 20 Blood Pressure 118/39 L Pulse Oximetry Oxygen Delivery Fraction of Inspired Oxygen 05/27/24 20:18 05/27/24 21:00 05/27/24 21:00 Temperature 34.8 C L Pulse Rate 58 L 58 L 58 L Respiratory Rate 20 Blood Pressure 98/84 L 98/84 L Pulse Oximetry 100 100 Oxygen Delivery Mechanical Ventilation Fraction of Inspired Oxygen 50 05/27/24 21:00 05/27/24 22:00 05/27/24 22:00 Temperature 34.8 C L 35 C L Pulse Rate 58 L 74 64 Respiratory Rate 20 20 Blood Pressure 98/84 L 101/33 L Pulse Oximetry 100 100 Oxygen Delivery Fraction of Inspired Oxygen 05/27/24 22:00 05/27/24 22:00 05/27/24 22:00 Temperature 35 C L Pulse Rate 74 64 64 Respiratory Rate 20 20 Blood Pressure 101/33 L 101/33 L 101/33 L Pulse Oximetry 100 Oxygen Delivery Fraction of Inspired Oxygen 05/27/24 22:00 05/27/24 22:00 05/27/24 22:15 Temperature Pulse Rate 64 64 Respiratory Rate 20 20 Blood Pressure 116/37 L Pulse Oximetry Oxygen Delivery Fraction of Inspired Oxygen 05/27/24 22:30 05/27/24 23:15 05/27/24 23:15 Temperature 36.0 C L 36.0 C L 36.0 C L Pulse Rate 75 75 Respiratory Rate 20 20 Blood Pressure 130/37 L 125/89 125/89 Pulse Oximetry 97 97 Oxygen Delivery Fraction of Inspired Oxygen 05/27/24 23:15 05/27/24 23:26 05/28/24 00:00 Temperature Pulse Rate 75 76 Respiratory Rate 20 Blood Pressure 125/89 Pulse Oximetry 100 97 Oxygen Delivery Mechanical Ventilation Mechanical Ventilation Fraction of Inspired Oxygen 50 50 05/28/24 00:00 05/28/24 00:00 05/28/24 00:00 Temperature 36.1 C L 36.1 C L Pulse Rate 66 64 66 Respiratory Rate 20 20 Blood Pressure 127/77 127/77 Pulse Oximetry 97 97 Oxygen Delivery Fraction of Inspired Oxygen 05/28/24 00:00 05/28/24 00:00 05/28/24 00:00 Temperature Pulse Rate 66 66 66 Respiratory Rate 20 20 Blood Pressure 127/77 127/77 Pulse Oximetry Oxygen Delivery Fraction of Inspired Oxygen 05/28/24 00:00 05/28/24 00:15 05/28/24 01:00 Temperature 35.2 C L Pulse Rate 66 69 55 L Respiratory Rate 20 28 H 20 Blood Pressure 99/64 L Pulse Oximetry 97 Oxygen Delivery Fraction of Inspired Oxygen 05/28/24 01:00 05/28/24 01:30 05/28/24 01:30 Temperature 35.2 C L Pulse Rate 55 L 56 L 56 L Respiratory Rate 20 20 20 Blood Pressure 99/64 L Pulse Oximetry 97 Oxygen Delivery Fraction of Inspired Oxygen 05/28/24 02:00 05/28/24 02:00 05/28/24 02:00 Temperature 35.5 C L 35.5 C L Pulse Rate 63 64 64 Respiratory Rate 20 20 Blood Pressure 100/65 100/65 Pulse Oximetry 90 90 Oxygen Delivery Fraction of Inspired Oxygen 05/28/24 02:00 05/28/24 02:00 05/28/24 02:00 Temperature Pulse Rate 64 64 64 Respiratory Rate 20 20 Blood Pressure 100/65 100/65 Pulse Oximetry Oxygen Delivery Fraction of Inspired Oxygen 05/28/24 02:00 05/28/24 02:11 05/28/24 02:17 Temperature Pulse Rate 64 68 68 Respiratory Rate 20 20 Blood Pressure Pulse Oximetry 98 Oxygen Delivery Mechanical Ventilation Fraction of Inspired Oxygen 50 05/28/24 03:34 05/28/24 04:00 05/28/24 04:00 Temperature Pulse Rate 68 71 71 Respiratory Rate Blood Pressure 107/72 119/84 119/84 Pulse Oximetry Oxygen Delivery Fraction of Inspired Oxygen 05/28/24 04:00 05/28/24 04:00 05/28/24 04:00 Temperature Pulse Rate 73 71 Respiratory Rate 20 20 Blood Pressure 119/84 Pulse Oximetry Oxygen Delivery Fraction of Inspired Oxygen 50 05/28/24 04:00 05/28/24 04:00 05/28/24 04:00 Temperature 36.5 C Pulse Rate 71 71 71 Respiratory Rate 20 20 Blood Pressure 119/84 Pulse Oximetry 100 Oxygen Delivery Fraction of Inspired Oxygen 05/28/24 04:00 05/28/24 04:30 05/28/24 04:30 Temperature Pulse Rate 60 60 Respiratory Rate 20 20 Blood Pressure 110/75 110/75 Pulse Oximetry 100 Oxygen Delivery Mechanical Ventilation Fraction of Inspired Oxygen 50 05/28/24 04:45 05/28/24 05:20 05/28/24 06:00 Temperature Pulse Rate 67 61 73 Respiratory Rate 20 Blood Pressure 69/56 L Pulse Oximetry 100 Oxygen Delivery Mechanical Ventilation Fraction of Inspired Oxygen 50 05/28/24 06:00 05/28/24 06:00 05/28/24 06:00 Temperature Pulse Rate 73 73 73 Respiratory Rate 20 20 Blood Pressure 100/65 100/65 Pulse Oximetry Oxygen Delivery Fraction of Inspired Oxygen 05/28/24 06:00 05/28/24 06:00 05/28/24 06:15 Temperature 35.8 C L Pulse Rate 73 73 70 Respiratory Rate 20 Blood Pressure 100/65 72/56 L Pulse Oximetry 100 Oxygen Delivery Fraction of Inspired Oxygen 05/28/24 06:48 05/28/24 07:00 05/28/24 07:05 Temperature 36.4 C L Pulse Rate 105 H 74 93 Respiratory Rate 20 Blood Pressure 110/65 Pulse Oximetry 87 L 100 92 Oxygen Delivery Mechanical Ventilation Fraction of Inspired Oxygen 100 05/28/24 07:20 05/28/24 07:30 05/28/24 07:37 Temperature Pulse Rate 74 75 77 Respiratory Rate Blood Pressure 103/80 103/80 Pulse Oximetry 100 Oxygen Delivery Fraction of Inspired Oxygen 80 05/28/24 07:47 05/28/24 08:00 05/28/24 08:00 Temperature 36.4 C L 35.5 C L Pulse Rate 81 77 78 Respiratory Rate 20 20 Blood Pressure 127/77 121/71 Pulse Oximetry 100 100 100 Oxygen Delivery Fraction of Inspired Oxygen 60 05/28/24 08:00 05/28/24 08:00 05/28/24 08:00 Temperature Pulse Rate 77 73 Respiratory Rate 20 Blood Pressure Pulse Oximetry Oxygen Delivery Fraction of Inspired Oxygen 50 05/28/24 08:00 05/28/24 08:00 05/28/24 08:13 Temperature Pulse Rate 72 75 78 Respiratory Rate 20 20 Blood Pressure 121/77 Pulse Oximetry 100 Oxygen Delivery Mechanical Ventilation Fraction of Inspired Oxygen 50 05/28/24 08:13 05/28/24 08:30 05/28/24 08:45 Temperature Pulse Rate 78 72 71 Respiratory Rate 20 20 Blood Pressure 83/66 L Pulse Oximetry Oxygen Delivery Fraction of Inspired Oxygen 05/28/24 09:00 05/28/24 09:10 05/28/24 09:13 Temperature 35.8 C L Pulse Rate 76 71 78 Respiratory Rate 20 Blood Pressure 101/71 65/53 L 72/52 L Pulse Oximetry 100 Oxygen Delivery Fraction of Inspired Oxygen 05/28/24 09:13 05/28/24 09:52 05/28/24 10:00 Temperature 36.2 C L Pulse Rate 71 70 80 Respiratory Rate 20 Blood Pressure 78/65 L 101/71 99/70 L Pulse Oximetry 100 Oxygen Delivery Fraction of Inspired Oxygen 05/28/24 10:00 05/28/24 10:00 05/28/24 10:00 Temperature Pulse Rate 71 74 79 Respiratory Rate 20 Blood Pressure 101/71 Pulse Oximetry Oxygen Delivery Fraction of Inspired Oxygen 05/28/24 10:00 05/28/24 10:00 05/28/24 11:28 Temperature Pulse Rate 76 80 75 Respiratory Rate 20 20 Blood Pressure 101/71 Pulse Oximetry 100 Oxygen Delivery Mechanical Ventilation Fraction of Inspired Oxygen 50 05/28/24 11:37 05/28/24 11:37 Temperature Pulse Rate 73 73 Respiratory Rate 20 20 Blood Pressure Pulse Oximetry Oxygen Delivery Fraction of Inspired Oxygen Intake/Output Intake/Output: Intake & Output 05/25/24 05/26/24 05/27/24 05/28/24 23:59 23:59 23:59 23:59 Intake Total 946.7 752.6 Output Total 0 300 Balance 946.7 452.6 Meds/Results Medications: Active Medications Generic Name Dose Route Start Last Admin Trade Name Freq PRN Reason Stop Dose Admin Albuterol/Ipratropium 3 ml 05/27/24 15:02 05/28/24 07:44 Ipratropium 0.5 Mg/Albuterol Sulfate 2.5 Mg Ampul.Neb 3 Ml INHALATION 3 ml Q6HRT PRN Administration Wheezing Aspirin 325 mg 05/28/24 08:00 05/28/24 07:55 Aspirin 325 Mg Tablet FEED TUBE 325 mg DAILY@0800 JAZMIN Administration Clopidogrel Bisulfate 75 mg 05/28/24 09:00 05/28/24 07:55 Clopidogrel Bisulfate 75 Mg Tablet FEED TUBE 75 mg QAM JAZMIN Administration Dextrose 12.5 gm 05/27/24 14:50 Dextrose 50% 25 Gm/50 Ml Syringe IV PUSH PRN PRN Hypoglycemia Protocol Enoxaparin Sodium 30 mg 05/28/24 09:00 05/28/24 07:56 Enoxaparin 30 Mg/0.3 Ml Syringe SUB-Q 30 mg DAILY JAZMIN Administration Glucagon 1 mg 05/27/24 14:50 Glucagon For Inj 1 Mg Vial IM PRN PRN Hypoglycemia Protocol Glucose 15 gm 05/27/24 14:50 Glucose Oral Gel 15 Gm Of Glucse In 37.5 Gm Tube PO PRN PRN Hypoglycemia Protocol Midazolam HCl 100 mg in 100 mls @ 3 mls/hr 05/27/24 13:38 05/27/24 16:30 Versed 100 Mg/Ns 100 Ml IV CONT 05/28/24 22:57 Infused .[id number] STA Titration Protocol 3 MG/HR Cisatracurium Besylate 200 mg/ 100 mls @ 7.602 mls/hr 05/27/24 14:50 05/28/24 10:00 Sodium Chloride IV CONT 3.5 mcg/kg/min .[id number] JAZMIN 7.6 mls/hr Titration Protocol 3.5 MCG/KG/MIN Fentanyl Citrate 2,500 mcg in 250 mls @ 2.5 mls/hr 05/27/24 14:50 05/28/24 10:00 Fentanyl 2,500 Mcg/Ns 250 Ml IV CONT 50 mcg/hr .Q72H JAZMIN 5 mls/hr Titration Protocol 25 MCG/HR Propofol 100 mls @ 8.688 mls/hr 05/27/24 14:50 05/28/24 11:37 Diprivan IV CONT 20 mcg/kg/min .[id number] JAZMIN 8.69 mls/hr Administration Protocol 20 MCG/KG/MIN Dextrose 1,000 mls @ 100 mls/hr 05/27/24 14:50 Dextrose 5% 1,000 Ml IVPB PRN PRN Hypoglycemia Protocol Levetiracetam 500 mg in 100 mls @ 400 mls/hr 05/27/24 21:00 05/28/24 08:10 Keppra Iv IVPB Infused Q12HR [facility], 1928–1983 Infusion Metronidazole 500 mg in 100 mls @ 100 mls/hr 05/28/24 04:00 05/28/24 11:39 Flagyl 500 Mg/Iso Soln 100 Ml IVPB 100 mls/hr Q8H JAZMIN Administration Norepinephrine Bitartrate 8 mg in 250 mls @ 26.25 mls/hr 05/28/24 05:20 05/28/24 10:00 Levophed 8 Mg/D5w 250 Ml IV CONT 14 mcg/min .[id number] JAZMIN 26.25 mls/hr Titration Protocol 14 MCG/MIN Cefepime HCl 1 gm in 50 mls @ 100 mls/hr 05/28/24 18:00 Maxipime 1 Gm/Ns 50 Ml IVPB DAILY@1800 JAZMIN Insulin Aspart 3 - 6 units 05/28/24 00:00 05/28/24 09:26 Insulin Aspart (*Bkc) 100 Units/Ml SUB-Q Not Given Q4HR [facility]–1983 Protocol Midazolam HCl 2 mg 05/27/24 14:50 Midazolam Hcl (*Crx) 2 Mg/2 Ml Vial IV PUSH Q5M PRN ventilator asynchrony Multi-Ingred Cream/Lotion/Oil/Oint 1 applic 05/27/24 21:00 05/28/24 07:56 Mineral Oil/White Petrolatum Ointment EACH EYE 1 applic Q12HR JAZMIN Administration Ondansetron HCl 4 mg 05/27/24 14:13 Ondansetron Inj 4 Mg/2 Ml Vial IV PUSH Q4H PRN Nausea Pantoprazole Sodium 40 mg 05/28/24 09:00 05/28/24 07:56 Pantoprazole Sodium Iv 40 Mg Vial IV PUSH 40 mg DAILY JAZMIN Administration Sodium Chloride 10 ml 05/28/24 14:00 Central Line Flush IV PUSH Q8HR JAZMIN Sodium Chloride 20 ml 05/28/24 10:09 Central Line Flush IV PUSH PRN PRN after blood draws Radiology Results: ITS Impressions Abdomen X-Ray 05/27/24 13:15 IMPRESSION: 1: NG tube tip in the stomach. Head CT 05/27/24 14:03 IMPRESSION: 1. No acute intracranial process. 2. Age-related changes including mild diffuse volume loss and unchanged mild scattered nonspecific cerebral white matter hypoattenuation consistent with chronic small vessel ischemic disease. Chest/Abdomen/Pelvis CTA 05/27/24 14:18 IMPRESSION: 1. Diffuse bilateral lung disease with most dense consolidation in the dependent right lower lobe. Would favor multifocal pneumonia over pulmonary edema. 2. Radiographically uncomplicated distal descending colon diverticulitis. 3. Endotracheal tube tip at the entrance to the left mainstem bronchus. Recommend withdrawal by 3 cm. This and the above 2 findings were discussed with Dr. Gordon at 2:30 PM. 4. Cardiomegaly with left heart predominance. 5. Enlargement of the central pulmonary arteries consistent with pulmonary arterial hypertension. No evident pulmonary embolism. 5. Small sliding-type hiatal hernia. 6. Severe bilateral renal atrophy. 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 Chest X-Ray 05/28/24 06:26 Impression: Probable mild bibasilar pulmonary edema/atelectasis with minimal pleural effusions. Developing hazy airspace opacity left upper lobe which could reflect additional pulmonary edema versus possibly focal pneumonia. Support tubes, as above. Labs Labs: Laboratory Results - last 24 hr 05/27/24 05/27/24 05/27/24 12:52 14:51 15:07 WBC 20.8 H RBC 3.57 L Hgb 9.3 L Hct 32.9 L MCV 92.2 MCH 26.1 MCHC 28.3 L RDW 17.1 H Plt Count 352 MPV 10.3 Immature Gran % (Auto) 6.1 H Neut % (Auto) 49.2 Lymph % (Auto) 40.0 [place] % (Auto) 3.4 Eos % (Auto) 1.1 Baso % (Auto) 0.2 Lymph # (Auto) 8.30 H [place] # (Auto) 0.7 H Eos # (Auto) 0.2 Baso # (Auto) 0.1 Abs Immat Gran (auto) 1.27 H Absolute Neuts (auto) 10.2 H Absolute Nucleated RBC 0.090 H Band Neutrophils % Not Reportable Nucleated RBC % 0.4 H Atypical Lymphocytes Present Platelet Estimate Adequate Anisocytosis 1+ Schistocytes None seen PT 15.2 H INR 1.2 APTT 35.9 Puncture Site Right radial ABG pH 7.387 ABG pCO2 30.4 L ABG pO2 91.2 ABG PO2/FiO2 Ratio 1.82 ABG HCO3 17.9 L ABG O2 Saturation 97.0 ABG O2 Content 14.9 L ABG Base Excess -6.1 A-a Gradient 231.1 Oxyhemoglobin 94.9 Carboxyhemoglobin 1.7 Methemoglobin 0.3 Reduced Hemoglobin 3.1 Total Hemoglobin 11.1 L O2 Delivery Device Ventilator O2 Liters/Min 0.0 Minute Volume Not Reportable Vent Rate 20 Vent Mode Cmv FiO2 50 Tidal Volume 420 PEEP 5 Peak Inspir Pressure Not Reportable Pressure Support 0 Sodium 139 Potassium 4.2 Chloride 95 L Carbon Dioxide 22 Anion Gap 22 H BUN 20 H D Creatinine 5.62 H Estim Creat Clear Calc 8 Estimated GFR 7 L Glucose 276 H POC Capillary Glucose Lactic Acid 11.3 H* Calcium 11.2 H Phosphorus Magnesium Total Bilirubin 0.8 Direct Bilirubin AST 271 H ALT 135 H Alkaline Phosphatase 142 H Total Creatine Kinase Troponin I 0.131 H* NT-Pro-B Natriuret Pep > 06863 H Total Protein 7.0 Albumin 3.7 Triglycerides Procalcitonin 1.2 Nasal MRSA (PCR) Random Vancomycin Digoxin 0.7 L Hep Bs Antigen Hep Bs Antibody Influenza A (RT-PCR) Influenza B (RT-PCR) RSV (RT-PCR) SARS-CoV-2 RNA (RT-PCR) 05/27/24 05/27/24 05/27/24 15:28 15:28 16:16 WBC RBC Hgb Hct MCV MCH MCHC RDW Plt Count MPV Immature Gran % (Auto) Neut % (Auto) Lymph % (Auto) [place] % (Auto) Eos % (Auto) Baso % (Auto) Lymph # (Auto) [place] # (Auto) Eos # (Auto) Baso # (Auto) Abs Immat Gran (auto) Absolute Neuts (auto) Absolute Nucleated RBC Band Neutrophils % Nucleated RBC % Atypical Lymphocytes Platelet Estimate Anisocytosis Schistocytes PT 15.0 H INR 1.1 APTT 33.2 Puncture Site ABG pH ABG pCO2 ABG pO2 ABG PO2/FiO2 Ratio ABG HCO3 ABG O2 Saturation ABG O2 Content ABG Base Excess A-a Gradient Oxyhemoglobin Carboxyhemoglobin Methemoglobin Reduced Hemoglobin Total Hemoglobin O2 Delivery Device O2 Liters/Min Minute Volume Vent Rate Vent Mode FiO2 Tidal Volume PEEP Peak Inspir Pressure Pressure Support Sodium 137 Potassium 4.6 Chloride 95 L Carbon Dioxide 20 L Anion Gap 22 H BUN 25 H Creatinine 5.79 H Estim Creat Clear Calc 8 Estimated GFR 7 L Glucose 260 H POC Capillary Glucose Lactic Acid 9.3 H* 9.5 H* Calcium 10.2 Phosphorus 7.0 H Magnesium 1.9 Total Bilirubin Direct Bilirubin AST ALT Alkaline Phosphatase Total Creatine Kinase 619 H Cancelled Troponin I 2.780 H* D NT-Pro-B Natriuret Pep Total Protein Albumin Triglycerides 183 H Procalcitonin Nasal MRSA (PCR) Not detected Random Vancomycin Digoxin Hep Bs Antigen Hep Bs Antibody Influenza A (RT-PCR) Negative Influenza B (RT-PCR) Negative RSV (RT-PCR) Negative SARS-CoV-2 RNA (RT-PCR) Negative 05/27/24 05/27/24 05/27/24 16:53 18:15 19:16 WBC RBC Hgb Hct MCV MCH MCHC RDW Plt Count MPV Immature Gran % (Auto) Neut % (Auto) Lymph % (Auto) [place] % (Auto) Eos % (Auto) Baso % (Auto) Lymph # (Auto) [place] # (Auto) Eos # (Auto) Baso # (Auto) Abs Immat Gran (auto) Absolute Neuts (auto) Absolute Nucleated RBC Band Neutrophils % Nucleated RBC % Atypical Lymphocytes Platelet Estimate Anisocytosis Schistocytes PT INR APTT Puncture Site ABG pH ABG pCO2 ABG pO2 ABG PO2/FiO2 Ratio ABG HCO3 ABG O2 Saturation ABG O2 Content ABG Base Excess A-a Gradient Oxyhemoglobin Carboxyhemoglobin Methemoglobin Reduced Hemoglobin Total Hemoglobin O2 Delivery Device O2 Liters/Min Minute Volume Vent Rate Vent Mode FiO2 Tidal Volume PEEP Peak Inspir Pressure Pressure Support Sodium Potassium Chloride Carbon Dioxide Anion Gap BUN Creatinine Estim Creat Clear Calc Estimated GFR Glucose POC Capillary Glucose 218 H 192 H Lactic Acid Calcium Phosphorus Magnesium Total Bilirubin Direct Bilirubin AST ALT Alkaline Phosphatase Total Creatine Kinase Troponin I 13.800 H* D NT-Pro-B Natriuret Pep Total Protein Albumin Triglycerides Procalcitonin Nasal MRSA (PCR) Random Vancomycin Digoxin Hep Bs Antigen Hep Bs Antibody Influenza A (RT-PCR) Influenza B (RT-PCR) RSV (RT-PCR) SARS-CoV-2 RNA (RT-PCR) 05/27/24 05/27/24 05/27/24 19:18 20:56 20:59 WBC RBC Hgb Hct MCV MCH MCHC RDW Plt Count MPV Immature Gran % (Auto) Neut % (Auto) Lymph % (Auto) [place] % (Auto) Eos % (Auto) Baso % (Auto) Lymph # (Auto) [place] # (Auto) Eos # (Auto) Baso # (Auto) Abs Immat Gran (auto) Absolute Neuts (auto) Absolute Nucleated RBC Band Neutrophils % Nucleated RBC % Atypical Lymphocytes Platelet Estimate Anisocytosis Schistocytes PT INR APTT Puncture Site ABG pH ABG pCO2 ABG pO2 ABG PO2/FiO2 Ratio ABG HCO3 ABG O2 Saturation ABG O2 Content ABG Base Excess A-a Gradient Oxyhemoglobin Carboxyhemoglobin Methemoglobin Reduced Hemoglobin Total Hemoglobin O2 Delivery Device O2 Liters/Min Minute Volume Vent Rate Vent Mode FiO2 Tidal Volume PEEP Peak Inspir Pressure Pressure Support Sodium Potassium Chloride Carbon Dioxide Anion Gap BUN Creatinine Estim Creat Clear Calc Estimated GFR Glucose POC Capillary Glucose 159 H 171 H Lactic Acid 3.5 H Calcium Phosphorus Magnesium Total Bilirubin Direct Bilirubin AST ALT Alkaline Phosphatase Total Creatine Kinase Troponin I NT-Pro-B Natriuret Pep Total Protein Albumin Triglycerides Procalcitonin Nasal MRSA (PCR) Random Vancomycin Digoxin Hep Bs Antigen Hep Bs Antibody Influenza A (RT-PCR) Influenza B (RT-PCR) RSV (RT-PCR) SARS-CoV-2 RNA (RT-PCR) 05/27/24 05/27/24 05/28/24 22:10 23:20 00:21 WBC RBC Hgb Hct MCV MCH MCHC RDW Plt Count MPV Immature Gran % (Auto) Neut % (Auto) Lymph % (Auto) [place] % (Auto) Eos % (Auto) Baso % (Auto) Lymph # (Auto) [place] # (Auto) Eos # (Auto) Baso # (Auto) Abs Immat Gran (auto) Absolute Neuts (auto) Absolute Nucleated RBC Band Neutrophils % Nucleated RBC % Atypical Lymphocytes Platelet Estimate Anisocytosis Schistocytes PT INR APTT Puncture Site ABG pH ABG pCO2 ABG pO2 ABG PO2/FiO2 Ratio ABG HCO3 ABG O2 Saturation ABG O2 Content ABG Base Excess A-a Gradient Oxyhemoglobin Carboxyhemoglobin Methemoglobin Reduced Hemoglobin Total Hemoglobin O2 Delivery Device O2 Liters/Min Minute Volume Vent Rate Vent Mode FiO2 Tidal Volume PEEP Peak Inspir Pressure Pressure Support Sodium Potassium Chloride Carbon Dioxide Anion Gap BUN Creatinine Estim Creat Clear Calc Estimated GFR Glucose POC Capillary Glucose 152 H 172 H 135 H Lactic Acid Calcium Phosphorus Magnesium Total Bilirubin Direct Bilirubin AST ALT Alkaline Phosphatase Total Creatine Kinase Troponin I NT-Pro-B Natriuret Pep Total Protein Albumin Triglycerides Procalcitonin Nasal MRSA (PCR) Random Vancomycin Digoxin Hep Bs Antigen Hep Bs Antibody Influenza A (RT-PCR) Influenza B (RT-PCR) RSV (RT-PCR) SARS-CoV-2 RNA (RT-PCR) 05/28/24 05/28/24 05/28/24 00:33 01:44 02:45 WBC RBC Hgb Hct MCV MCH MCHC RDW Plt Count MPV Immature Gran % (Auto) Neut % (Auto) Lymph % (Auto) [place] % (Auto) Eos % (Auto) Baso % (Auto) Lymph # (Auto) [place] # (Auto) Eos # (Auto) Baso # (Auto) Abs Immat Gran (auto) Absolute Neuts (auto) Absolute Nucleated RBC Band Neutrophils % Nucleated RBC % Atypical Lymphocytes Platelet Estimate Anisocytosis Schistocytes PT INR APTT Puncture Site ABG pH ABG pCO2 ABG pO2 ABG PO2/FiO2 Ratio ABG HCO3 ABG O2 Saturation ABG O2 Content ABG Base Excess A-a Gradient Oxyhemoglobin Carboxyhemoglobin Methemoglobin Reduced Hemoglobin Total Hemoglobin O2 Delivery Device O2 Liters/Min Minute Volume Vent Rate Vent Mode FiO2 Tidal Volume PEEP Peak Inspir Pressure Pressure Support Sodium Potassium Chloride Carbon Dioxide Anion Gap BUN Creatinine Estim Creat Clear Calc Estimated GFR Glucose POC Capillary Glucose 150 H 127 H Lactic Acid Calcium Phosphorus Magnesium Total Bilirubin Direct Bilirubin AST ALT Alkaline Phosphatase Total Creatine Kinase Troponin I 20.000 H* D NT-Pro-B Natriuret Pep Total Protein Albumin Triglycerides Procalcitonin Nasal MRSA (PCR) Random Vancomycin Digoxin Hep Bs Antigen Hep Bs Antibody Influenza A (RT-PCR) Influenza B (RT-PCR) RSV (RT-PCR) SARS-CoV-2 RNA (RT-PCR) 05/28/24 05/28/24 05/28/24 03:19 04:28 05:04 WBC 12.8 H RBC 3.34 L Hgb 8.8 L Hct 29.0 L MCV 86.8 D MCH 26.3 MCHC 30.3 L RDW 17.1 H Plt Count 244 MPV 9.8 Immature Gran % (Auto) Neut % (Auto) Lymph % (Auto) [place] % (Auto) Eos % (Auto) Baso % (Auto) Lymph # (Auto) [place] # (Auto) Eos # (Auto) Baso # (Auto) Abs Immat Gran (auto) Absolute Neuts (auto) Absolute Nucleated RBC Band Neutrophils % Nucleated RBC % Atypical Lymphocytes Platelet Estimate Anisocytosis Schistocytes PT 16.5 H INR 1.3 APTT 38.4 H Puncture Site Right radial ABG pH 7.492 H ABG pCO2 32.3 L ABG pO2 74.7 L ABG PO2/FiO2 Ratio 1.49 ABG HCO3 24.2 ABG O2 Saturation 96.1 ABG O2 Content 13.0 L ABG Base Excess 1.2 A-a Gradient 245.5 Oxyhemoglobin 93.7 Carboxyhemoglobin 1.0 Methemoglobin 0.3 Reduced Hemoglobin 5.0 Total Hemoglobin 9.8 L O2 Delivery Device Ventilator O2 Liters/Min Not Reportable Minute Volume Not Reportable Vent Rate 20 Vent Mode Cmv FiO2 50 Tidal Volume 420 PEEP 5 Peak Inspir Pressure Not Reportable Pressure Support Not Reportable Sodium 139 Potassium 3.8 Chloride 98 Carbon Dioxide 27 Anion Gap 14 H BUN 34 H Creatinine 6.43 H Estim Creat Clear Calc 7 Estimated GFR 6 L Glucose 131 H POC Capillary Glucose Lactic Acid 2.0 Calcium 9.5 Phosphorus 4.4 Magnesium 1.7 Total Bilirubin Direct Bilirubin AST ALT Alkaline Phosphatase Total Creatine Kinase 1008 H Troponin I 19.900 H* NT-Pro-B Natriuret Pep Total Protein Albumin Triglycerides Procalcitonin Nasal MRSA (PCR) Random Vancomycin Digoxin 2.0 Hep Bs Antigen Hep Bs Antibody Influenza A (RT-PCR) Influenza B (RT-PCR) RSV (RT-PCR) SARS-CoV-2 RNA (RT-PCR) 05/28/24 05/28/24 05/28/24 05:40 07:54 08:23 WBC RBC Hgb Hct MCV MCH MCHC RDW Plt Count MPV Immature Gran % (Auto) Neut % (Auto) Lymph % (Auto) [place] % (Auto) Eos % (Auto) Baso % (Auto) Lymph # (Auto) [place] # (Auto) Eos # (Auto) Baso # (Auto) Abs Immat Gran (auto) Absolute Neuts (auto) Absolute Nucleated RBC Band Neutrophils % Nucleated RBC % Atypical Lymphocytes Platelet Estimate Anisocytosis Schistocytes PT INR APTT Puncture Site ABG pH ABG pCO2 ABG pO2 ABG PO2/FiO2 Ratio ABG HCO3 ABG O2 Saturation ABG O2 Content ABG Base Excess A-a Gradient Oxyhemoglobin Carboxyhemoglobin Methemoglobin Reduced Hemoglobin Total Hemoglobin O2 Delivery Device O2 Liters/Min Minute Volume Vent Rate Vent Mode FiO2 Tidal Volume PEEP Peak Inspir Pressure Pressure Support Sodium Potassium Chloride Carbon Dioxide Anion Gap BUN Creatinine Estim Creat Clear Calc Estimated GFR Glucose POC Capillary Glucose 143 H 148 H Lactic Acid 2.3 H Calcium Phosphorus Magnesium Total Bilirubin 0.6 Direct Bilirubin 0.0 AST 416 H ALT 184 H Alkaline Phosphatase 158 H Total Creatine Kinase 826 H Troponin I NT-Pro-B Natriuret Pep Total Protein 6.0 L Albumin 3.2 L Triglycerides Procalcitonin Nasal MRSA (PCR) Random Vancomycin Cancelled Digoxin Hep Bs Antigen Negative Hep Bs Antibody Positive Influenza A (RT-PCR) Influenza B (RT-PCR) RSV (RT-PCR) SARS-CoV-2 RNA (RT-PCR) 05/28/24 05/28/24 05/28/24 10:41 11:36 12:11 WBC RBC Hgb Hct MCV MCH MCHC RDW Plt Count MPV Immature Gran % (Auto) Neut % (Auto) Lymph % (Auto) [place] % (Auto) Eos % (Auto) Baso % (Auto) Lymph # (Auto) [place] # (Auto) Eos # (Auto) Baso # (Auto) Abs Immat Gran (auto) Absolute Neuts (auto) Absolute Nucleated RBC Band Neutrophils % Nucleated RBC % Atypical Lymphocytes Platelet Estimate Anisocytosis Schistocytes PT INR APTT Puncture Site ABG pH ABG pCO2 ABG pO2 ABG PO2/FiO2 Ratio ABG HCO3 ABG O2 Saturation ABG O2 Content ABG Base Excess A-a Gradient Oxyhemoglobin Carboxyhemoglobin Methemoglobin Reduced Hemoglobin Total Hemoglobin O2 Delivery Device O2 Liters/Min Minute Volume Vent Rate Vent Mode FiO2 Tidal Volume PEEP Peak Inspir Pressure Pressure Support Sodium Potassium Chloride Carbon Dioxide Anion Gap BUN Creatinine Estim Creat Clear Calc Estimated GFR Glucose POC Capillary Glucose 154 H 144 H Lactic Acid 3.1 H Calcium Phosphorus Magnesium Total Bilirubin Direct Bilirubin AST ALT Alkaline Phosphatase Total Creatine Kinase Troponin I NT-Pro-B Natriuret Pep Total Protein Albumin Triglycerides Procalcitonin Nasal MRSA (PCR) Random Vancomycin Digoxin Hep Bs Antigen Hep Bs Antibody Influenza A (RT-PCR) Influenza B (RT-PCR) RSV (RT-PCR) SARS-CoV-2 RNA (RT-PCR)
[2024-05-28 13:03] LABS: Glucose Point of Care 155 mg/dl (65-105)
[2024-05-28] MEDS: CENTRAL LINE FLUSH 10 ML IV PUSH ×2 (13:30→20:44)
[2024-05-28 14:04] LABS: Glucose Point of Care 145 mg/dl (65-105)
--- NOTE | 2024-05-28 14:11 | PM.IMPN ---
Progress Note: A&P Assessment and Plan (1) Acute respiratory failure with hypoxia: Code(s): J96.01 - Acute respiratory failure with hypoxia Status: Acute Assessment and Plan: intubated CTA neg for PE PCR neg Cefepime, flagyl, vanc follow culture result (2) Anoxic brain injury: Code(s): G93.1 - Anoxic brain damage, not elsewhere classified Status: Acute Assessment and Plan: secondary to cardiac arrest (3) Cardiac arrest: Code(s): I46.9 - Cardiac arrest, cause unspecified Status: Acute Assessment and Plan: EKG Afib with left bundle block ECho LVEF 20-255 Amiodaron drip Not AC because of history of GI bleed cardiology team on board ICD placement if she recovering (4) Non-ischemic cardiomyopathy: Code(s): I42.8 - Other cardiomyopathies Status: Acute Assessment and Plan: plan as above (5) Combined systolic and diastolic congestive heart failure: Code(s): I50.40 - Unspecified combined systolic (congestive) and diastolic (congestive) heart failure Status: Acute Assessment and Plan: as above (6) Paroxysmal atrial fibrillation: Code(s): I48.0 - Paroxysmal atrial fibrillation Status: Acute Assessment and Plan: Amiodaron ASA, pLavix (7) Hyperlipidemia: Code(s): E78.5 - Hyperlipidemia, unspecified Status: Acute Assessment and Plan: hold statin with liver failure in setting of cardiac arrest (8) End-stage renal disease on hemodialysis: Onset Date: 09/2009 Code(s): N18.6 - End stage renal disease; Z99.2 - Dependence on renal dialysis Status: Acute Assessment and Plan: HD nephrology team on board (9) Chronic anemia: Code(s): D64.9 - Anemia, unspecified Status: Chronic (10) CVA (cerebral vascular accident): Code(s): I63.9 - Cerebral infarction, unspecified Status: Acute (11) Chronic obstructive pulmonary disease: Code(s): J44.9 - Chronic obstructive pulmonary disease, unspecified Status: Acute (12) Aspiration pneumonia: Code(s): J69.0 - Pneumonitis due to inhalation of food and vomit Status: Acute (13) Pulmonary edema: Code(s): J81.1 - Chronic pulmonary edema Status: Acute (14) Ventricular fibrillation: Code(s): I49.01 - Ventricular fibrillation Status: Acute Subjective Date/time seen: 05/28/24 14:11 Interval history: per hPI: Narrative: This is a 68-year-old female with history of stroke, end-stage renal disease on hemodialysis, nonischemic cardiomyopathy with an ejection fraction of 25-30%, paroxysmal atrial fibrillation status post Watchman, type 2 diabetes mellitus which appears to be diet controlled, obstructive sleep apnea, anemia, and peptic ulcers who presented to the emergency department via EMS in cardiac arrest. The following history is obtained from her left chronic medical records as well as information provided by her family members. She had a full dialysis treatment this morning and a six-month stroke follow-up appointment with her neurologist at [facility]. On the ride home, the patient reportedly went unresponsive and her daughter called 911. CPR was initiated on EMS arrival with an initial rhythm of ventricular fibrillation. She received multiple shocks for persistent ventricular fibrillation in addition to epinephrine and chest compressions. She was intubated in the field and an IO was placed. There were no reports of any recent illnesses the patient and she had not been complaining of any chest pain or shortness a breath. In the ED: ACLS protocol was continued and she received numerous shocks for ventricular fibrillation in addition to epinephrine, 3 amps of sodium bicarbonate, 1 amp of calcium gluconate, and a total 450 mg of amiodarone before return of spontaneous circulation. Total down time was summer between 45 and 60 minutes. Labs were significant for WBC count of 20.8, hemoglobin 9.3, potassium 4.2, and gap 22, BUN 20, creatinine 5.62, lactic acid 11.3, AST 271, ALT 135, alkaline phosphatase 142, troponin 0.131, proBNP greater than 30,000. Head CT showed no acute process in age related findings. CTA of the chest, abdomen, and pelvis showed diffuse bilateral lung disease favoring multifocal pneumonia and radiographically uncomplicated distal descending colon diverticulitis. She was started on antibiotics and an amiodarone drip and is being admitted to the ICU in this setting. At the time my evaluation she is exhibiting signs of posturing with and without stimuli. A central line was inserted upon arrival to the ICU as she arrived without a working IV and only and IO in place. 05/28/24 Patient was seen and examined at bedside. she is unresponsive and extubated. Review of Systems Review of Systems: Unable to obtain at this time. ROS unobtainable: Yes unobtainable due to endotracheal tube, unobtainable due to medical condition and unobtainable due to mental status Exam Narrative: General: unresponsive, chemically paralyzed, intubated and on mechanical ventilation. Lungs/Chest: Trachea central Coarse BS B/L, bibasilar crackle Cardiac: RRR. Normal S1 S2. No murmurs tachycardia Circulation: Feet are cold Abdomen: Decreased bowel sounds. Soft. NT. ND. Extremities: No clubbing, cyanosis or edema. Warm : Hoover in place Neurologic: Patient is currently sedated and paralyzed with Nimbex, PERRL sluggish, Objective Data Vital Signs Vital Signs: Vital Signs - 24 hr 05/27/24 14:13 05/27/24 14:26 05/27/24 14:35 Temperature 98.2 F Pulse Rate 110 H 109 H 112 H Respiratory Rate 22 H 26 H 28 H Blood Pressure 182/162 H Pulse Oximetry 100 Oxygen Delivery Fraction of Inspired Oxygen 05/27/24 14:37 05/27/24 14:40 05/27/24 16:10 Temperature Pulse Rate 112 H 114 H 106 H Respiratory Rate 25 H 27 H 27 H Blood Pressure Pulse Oximetry Oxygen Delivery Fraction of Inspired Oxygen 05/27/24 16:12 05/27/24 16:13 05/27/24 16:14 Temperature Pulse Rate 107 H 106 H 108 H Respiratory Rate 30 H Blood Pressure 124/62 Pulse Oximetry 100 Oxygen Delivery Mechanical Ventilation Fraction of Inspired Oxygen 50 05/27/24 16:20 05/27/24 16:30 05/27/24 16:30 Temperature 98.7 F Pulse Rate 103 H 117 H 95 Respiratory Rate 32 H 37 H 25 H Blood Pressure 144/99 H Pulse Oximetry 96 Oxygen Delivery Fraction of Inspired Oxygen 05/27/24 16:30 05/27/24 16:30 05/27/24 16:40 Temperature Pulse Rate 92 98 104 H Respiratory Rate 26 H 28 H 32 H Blood Pressure Pulse Oximetry Oxygen Delivery Fraction of Inspired Oxygen 05/27/24 16:46 05/27/24 16:50 05/27/24 17:00 Temperature 98.5 F Pulse Rate 103 H 98 94 Respiratory Rate 35 H 34 H 24 H Blood Pressure 141/71 H Pulse Oximetry 99 Oxygen Delivery Fraction of Inspired Oxygen 05/27/24 17:45 05/27/24 17:50 05/27/24 18:00 Temperature 98.7 F Pulse Rate 105 H 101 H 85 Respiratory Rate 31 H Blood Pressure 124/88 129/70 Pulse Oximetry 99 Oxygen Delivery Fraction of Inspired Oxygen 05/27/24 18:00 05/27/24 18:00 05/27/24 18:00 Temperature 97.8 F 98.2 F 97.9 F Pulse Rate 72 85 72 Respiratory Rate 20 19 20 Blood Pressure 112/61 112/61 109/40 L Pulse Oximetry 100 98 98 Oxygen Delivery Fraction of Inspired Oxygen 05/27/24 18:00 05/27/24 18:55 05/27/24 19:00 Temperature 97.5 F L Pulse Rate 78 98 78 Respiratory Rate 20 20 20 Blood Pressure 108/39 L Pulse Oximetry 100 Oxygen Delivery Fraction of Inspired Oxygen 05/27/24 19:00 05/27/24 19:23 05/27/24 20:00 Temperature 97.9 F 96.2 F L Pulse Rate 62 63 63 Respiratory Rate 20 20 20 Blood Pressure 108/39 L 102/69 118/39 L Pulse Oximetry 100 100 Oxygen Delivery Fraction of Inspired Oxygen 05/27/24 20:00 05/27/24 20:00 05/27/24 20:00 Temperature 96.2 F L Pulse Rate 63 63 Respiratory Rate 20 Blood Pressure 118/39 L 118/39 L Pulse Oximetry 100 100 Oxygen Delivery Mechanical Ventilation Fraction of Inspired Oxygen 50 05/27/24 20:00 05/27/24 20:00 05/27/24 20:00 Temperature Pulse Rate 60 63 63 Respiratory Rate 20 20 Blood Pressure 118/39 L Pulse Oximetry Oxygen Delivery Fraction of Inspired Oxygen 05/27/24 20:00 05/27/24 20:18 05/27/24 21:00 Temperature 94.7 F L Pulse Rate 63 58 L 58 L Respiratory Rate 20 20 Blood Pressure 98/84 L Pulse Oximetry 100 100 Oxygen Delivery Mechanical Ventilation Fraction of Inspired Oxygen 50 05/27/24 21:00 05/27/24 21:00 05/27/24 22:00 Temperature 94.7 F L 95 F L Pulse Rate 58 L 58 L 74 Respiratory Rate 20 20 Blood Pressure 98/84 L 98/84 L 101/33 L Pulse Oximetry 100 100 Oxygen Delivery Fraction of Inspired Oxygen 05/27/24 22:00 05/27/24 22:00 05/27/24 22:00 Temperature 95 F L Pulse Rate 64 74 64 Respiratory Rate 20 20 Blood Pressure 101/33 L 101/33 L Pulse Oximetry 100 Oxygen Delivery Fraction of Inspired Oxygen 05/27/24 22:00 05/27/24 22:00 05/27/24 22:00 Temperature Pulse Rate 64 64 64 Respiratory Rate 20 20 Blood Pressure 101/33 L Pulse Oximetry Oxygen Delivery Fraction of Inspired Oxygen 05/27/24 22:15 05/27/24 22:30 05/27/24 23:15 Temperature 96.8 F L 96.8 F L Pulse Rate 75 Respiratory Rate 20 Blood Pressure 116/37 L 130/37 L 125/89 Pulse Oximetry 97 Oxygen Delivery Fraction of Inspired Oxygen 05/27/24 23:15 05/27/24 23:15 05/27/24 23:26 Temperature 96.8 F L Pulse Rate 75 75 76 Respiratory Rate 20 20 Blood Pressure 125/89 125/89 Pulse Oximetry 97 100 Oxygen Delivery Mechanical Ventilation Fraction of Inspired Oxygen 50 05/28/24 00:00 05/28/24 00:00 05/28/24 00:00 Temperature 96.9 F L Pulse Rate 66 64 Respiratory Rate 20 Blood Pressure 127/77 Pulse Oximetry 97 97 Oxygen Delivery Mechanical Ventilation Fraction of Inspired Oxygen 50 05/28/24 00:00 05/28/24 00:00 05/28/24 00:00 Temperature 96.9 F L Pulse Rate 66 66 66 Respiratory Rate 20 20 Blood Pressure 127/77 127/77 127/77 Pulse Oximetry 97 Oxygen Delivery Fraction of Inspired Oxygen 05/28/24 00:00 05/28/24 00:00 05/28/24 00:15 Temperature Pulse Rate 66 66 69 Respiratory Rate 20 20 28 H Blood Pressure Pulse Oximetry Oxygen Delivery Fraction of Inspired Oxygen 05/28/24 01:00 05/28/24 01:00 05/28/24 01:30 Temperature 95.4 F L 95.4 F L Pulse Rate 55 L 55 L 56 L Respiratory Rate 20 20 20 Blood Pressure 99/64 L 99/64 L Pulse Oximetry 97 97 Oxygen Delivery Fraction of Inspired Oxygen 05/28/24 01:30 05/28/24 02:00 05/28/24 02:00 Temperature 96 F L Pulse Rate 56 L 63 64 Respiratory Rate 20 20 Blood Pressure 100/65 Pulse Oximetry 90 Oxygen Delivery Fraction of Inspired Oxygen 05/28/24 02:00 05/28/24 02:00 05/28/24 02:00 Temperature 96 F L Pulse Rate 64 64 64 Respiratory Rate 20 20 Blood Pressure 100/65 100/65 100/65 Pulse Oximetry 90 Oxygen Delivery Fraction of Inspired Oxygen 05/28/24 02:00 05/28/24 02:00 05/28/24 02:11 Temperature Pulse Rate 64 64 68 Respiratory Rate 20 20 Blood Pressure Pulse Oximetry 98 Oxygen Delivery Mechanical Ventilation Fraction of Inspired Oxygen 50 05/28/24 02:17 05/28/24 03:34 05/28/24 04:00 Temperature Pulse Rate 68 68 71 Respiratory Rate 20 Blood Pressure 107/72 119/84 Pulse Oximetry Oxygen Delivery Fraction of Inspired Oxygen 05/28/24 04:00 05/28/24 04:00 05/28/24 04:00 Temperature Pulse Rate 71 73 Respiratory Rate 20 Blood Pressure 119/84 119/84 Pulse Oximetry Oxygen Delivery Fraction of Inspired Oxygen 50 05/28/24 04:00 05/28/24 04:00 05/28/24 04:00 Temperature 97.7 F Pulse Rate 71 71 71 Respiratory Rate 20 20 20 Blood Pressure 119/84 Pulse Oximetry 100 Oxygen Delivery Fraction of Inspired Oxygen 05/28/24 04:00 05/28/24 04:00 05/28/24 04:30 Temperature Pulse Rate 71 60 Respiratory Rate 20 Blood Pressure 110/75 Pulse Oximetry 100 Oxygen Delivery Mechanical Ventilation Fraction of Inspired Oxygen 50 05/28/24 04:30 05/28/24 04:45 05/28/24 05:20 Temperature Pulse Rate 60 67 61 Respiratory Rate 20 Blood Pressure 110/75 69/56 L Pulse Oximetry 100 Oxygen Delivery Mechanical Ventilation Fraction of Inspired Oxygen 50 05/28/24 06:00 05/28/24 06:00 05/28/24 06:00 Temperature Pulse Rate 73 73 73 Respiratory Rate 20 20 Blood Pressure 100/65 100/65 Pulse Oximetry Oxygen Delivery Fraction of Inspired Oxygen 05/28/24 06:00 05/28/24 06:00 05/28/24 06:00 Temperature 96.5 F L Pulse Rate 73 73 73 Respiratory Rate 20 20 Blood Pressure 100/65 Pulse Oximetry 100 Oxygen Delivery Fraction of Inspired Oxygen 05/28/24 06:15 05/28/24 06:48 05/28/24 07:00 Temperature 97.5 F L Pulse Rate 70 105 H 74 Respiratory Rate 20 Blood Pressure 72/56 L 110/65 Pulse Oximetry 87 L 100 Oxygen Delivery Mechanical Ventilation Fraction of Inspired Oxygen 100 05/28/24 07:05 05/28/24 07:20 05/28/24 07:30 Temperature Pulse Rate 93 74 75 Respiratory Rate Blood Pressure 103/80 103/80 Pulse Oximetry 92 Oxygen Delivery Fraction of Inspired Oxygen 05/28/24 07:37 05/28/24 07:47 05/28/24 08:00 Temperature 97.5 F L Pulse Rate 77 81 77 Respiratory Rate 20 Blood Pressure 127/77 Pulse Oximetry 100 100 100 Oxygen Delivery Fraction of Inspired Oxygen 80 60 05/28/24 08:00 05/28/24 08:00 05/28/24 08:00 Temperature 95.9 F L Pulse Rate 78 77 Respiratory Rate 20 Blood Pressure 121/71 Pulse Oximetry 100 Oxygen Delivery Fraction of Inspired Oxygen 50 05/28/24 08:00 05/28/24 08:00 05/28/24 08:00 Temperature Pulse Rate 73 72 75 Respiratory Rate 20 20 20 Blood Pressure 121/77 Pulse Oximetry Oxygen Delivery Fraction of Inspired Oxygen 05/28/24 08:13 05/28/24 08:13 05/28/24 08:30 Temperature Pulse Rate 78 78 72 Respiratory Rate 20 20 Blood Pressure Pulse Oximetry 100 Oxygen Delivery Mechanical Ventilation Fraction of Inspired Oxygen 50 05/28/24 08:45 05/28/24 09:00 05/28/24 09:10 Temperature 96.5 F L Pulse Rate 71 76 71 Respiratory Rate 20 Blood Pressure 83/66 L 101/71 65/53 L Pulse Oximetry 100 Oxygen Delivery Fraction of Inspired Oxygen 05/28/24 09:13 05/28/24 09:13 05/28/24 09:52 Temperature Pulse Rate 78 71 70 Respiratory Rate Blood Pressure 72/52 L 78/65 L 101/71 Pulse Oximetry Oxygen Delivery Fraction of Inspired Oxygen 05/28/24 10:00 05/28/24 10:00 05/28/24 10:00 Temperature 97.1 F L Pulse Rate 80 71 74 Respiratory Rate 20 20 Blood Pressure 99/70 L Pulse Oximetry 100 Oxygen Delivery Fraction of Inspired Oxygen 05/28/24 10:00 05/28/24 10:00 05/28/24 10:00 Temperature Pulse Rate 79 76 80 Respiratory Rate 20 20 Blood Pressure 101/71 101/71 Pulse Oximetry Oxygen Delivery Fraction of Inspired Oxygen 05/28/24 11:00 05/28/24 11:28 05/28/24 11:37 Temperature 97 F L Pulse Rate 74 75 73 Respiratory Rate 20 20 Blood Pressure 101/82 Pulse Oximetry 100 100 Oxygen Delivery Mechanical Ventilation Fraction of Inspired Oxygen 50 05/28/24 11:37 05/28/24 12:00 05/28/24 12:00 Temperature Pulse Rate 73 75 79 Respiratory Rate 20 20 Blood Pressure 118/95 H Pulse Oximetry 100 Oxygen Delivery Mechanical Ventilation Fraction of Inspired Oxygen 50 05/28/24 12:00 05/28/24 12:00 05/28/24 12:00 Temperature 97.2 F L Pulse Rate 79 83 Respiratory Rate 16 Blood Pressure 118/95 H Pulse Oximetry 100 Oxygen Delivery Fraction of Inspired Oxygen 50 05/28/24 13:00 05/28/24 13:00 05/28/24 13:05 Temperature 97.2 F L Pulse Rate 76 78 80 Respiratory Rate 20 Blood Pressure 86/74 L 90/70 L 99/78 L Pulse Oximetry 100 Oxygen Delivery Fraction of Inspired Oxygen 05/28/24 13:30 05/28/24 14:00 Temperature Pulse Rate 81 100 Respiratory Rate Blood Pressure 99/68 L Pulse Oximetry 70 L Oxygen Delivery Mechanical Ventilation Fraction of Inspired Oxygen 50 Intake/Output Intake/Output: Intake & Output 05/25/24 05/26/24 05/27/24 05/28/24 23:59 23:59 23:59 23:59 Intake Total 946.7 846.2 Output Total 0 300 Balance 946.7 546.2 Meds/Results Medications: Active Medications Generic Name Dose Route Start Last Admin Trade Name Freq PRN Reason Stop Dose Admin Albuterol/Ipratropium 3 ml 05/27/24 15:02 05/28/24 07:44 Ipratropium 0.5 Mg/Albuterol Sulfate 2.5 Mg Ampul.Neb 3 Ml INHALATION 3 ml Q6HRT PRN Administration Wheezing Aspirin 325 mg 05/28/24 08:00 05/28/24 07:55 Aspirin 325 Mg Tablet FEED TUBE 325 mg DAILY@0800 JAZMIN Administration Clopidogrel Bisulfate 75 mg 05/28/24 09:00 05/28/24 07:55 Clopidogrel Bisulfate 75 Mg Tablet FEED TUBE 75 mg QAM JAZMIN Administration Dextrose 12.5 gm 04/07/25 14:50 Dextrose 50% 25 Gm/50 Ml Syringe IV PUSH PRN PRN Hypoglycemia Protocol Enoxaparin Sodium 30 mg 05/28/24 09:00 05/28/24 07:56 Enoxaparin 30 Mg/0.3 Ml Syringe SUB-Q 30 mg DAILY JAZMIN Administration Glucagon 1 mg 05/27/24 14:50 Glucagon For Inj 1 Mg Vial IM PRN PRN Hypoglycemia Protocol Glucose 15 gm 05/27/24 14:50 Glucose Oral Gel 15 Gm Of Glucse In 37.5 Gm Tube PO PRN PRN Hypoglycemia Protocol Midazolam HCl 100 mg in 100 mls @ 3 mls/hr 05/27/24 13:38 05/27/24 16:30 Versed 100 Mg/Ns 100 Ml IV CONT 05/28/24 22:57 Infused .[id number] STA Titration Protocol 3 MG/HR Cisatracurium Besylate 200 mg/ 100 mls @ 7.602 mls/hr 05/27/24 14:50 05/28/24 10:00 Sodium Chloride IV CONT 3.5 mcg/kg/min .[id number] JAZMIN 7.6 mls/hr Titration Protocol 3.5 MCG/KG/MIN Fentanyl Citrate 2,500 mcg in 250 mls @ 2.5 mls/hr 05/27/24 14:50 05/28/24 10:00 Fentanyl 2,500 Mcg/Ns 250 Ml IV CONT 50 mcg/hr .Q72H JAZMIN 5 mls/hr Titration Protocol 25 MCG/HR Propofol 100 mls @ 8.688 mls/hr 05/27/24 14:50 05/28/24 11:37 Diprivan IV CONT 20 mcg/kg/min .[id number] JAZMIN 8.69 mls/hr Administration Protocol 20 MCG/KG/MIN Dextrose 1,000 mls @ 100 mls/hr 05/27/24 14:50 Dextrose 5% 1,000 Ml IVPB PRN PRN Hypoglycemia Protocol Levetiracetam 500 mg in 100 mls @ 400 mls/hr 05/27/24 21:00 05/28/24 08:10 Keppra Iv IVPB Infused Q12HR JAZMIN Infusion Metronidazole 500 mg in 100 mls @ 100 mls/hr 05/28/24 04:00 05/28/24 11:39 Flagyl 500 Mg/Iso Soln 100 Ml IVPB 100 mls/hr Q8H JAZMIN Administration Norepinephrine Bitartrate 8 mg in 250 mls @ 26.25 mls/hr 05/28/24 05:20 05/28/24 13:30 Levophed 8 Mg/D5w 250 Ml IV CONT 16 mcg/min .[id number] JAZMIN 30 mls/hr Titration Protocol 14 MCG/MIN Cefepime HCl 1 gm in 50 mls @ 100 mls/hr 05/28/24 18:00 Maxipime 1 Gm/Ns 50 Ml IVPB DAILY@1800 [facility] Insulin Aspart 3 - 6 units 05/28/24 00:00 05/28/24 12:44 Insulin Aspart (*Bkc) 100 Units/Ml SUB-Q Not Given Q4HR [facility] Protocol Midazolam HCl 2 mg 05/27/24 14:50 Midazolam Hcl (*Crx) 2 Mg/2 Ml Vial IV PUSH Q5M PRN ventilator asynchrony Multi-Ingred Cream/Lotion/Oil/Oint 1 applic 05/27/24 21:00 05/28/24 07:56 Mineral Oil/White Petrolatum Ointment EACH EYE 1 applic Q12HR JAZMIN Administration Ondansetron HCl 4 mg 05/27/24 14:13 Ondansetron Inj 4 Mg/2 Ml Vial IV PUSH Q4H PRN Nausea Pantoprazole Sodium 40 mg 05/28/24 09:00 05/28/24 07:56 Pantoprazole Sodium Iv 40 Mg Vial IV PUSH 40 mg DAILY JAZMIN Administration Sodium Chloride 10 ml 05/28/24 14:00 05/28/24 13:30 Central Line Flush IV PUSH 10 ml Q8HR JAZMIN Administration Sodium Chloride 20 ml 05/28/24 10:09 Central Line Flush IV PUSH PRN PRN after blood draws Radiology Results: ITS Impressions Abdomen X-Ray 05/27/24 13:15 IMPRESSION: 1: NG tube tip in the stomach. Head CT 05/27/24 14:03 IMPRESSION: 1. No acute intracranial process. 2. Age-related changes including mild diffuse volume loss and unchanged mild scattered nonspecific cerebral white matter hypoattenuation consistent with chronic small vessel ischemic disease. Chest/Abdomen/Pelvis CTA 05/27/24 14:18 IMPRESSION: 1. Diffuse bilateral lung disease with most dense consolidation in the dependent right lower lobe. Would favor multifocal pneumonia over pulmonary edema. 2. Radiographically uncomplicated distal descending colon diverticulitis. 3. Endotracheal tube tip at the entrance to the left mainstem bronchus. Recommend withdrawal by 3 cm. This and the above 2 findings were discussed with Dr. Gordon at 2:30 PM. 4. Cardiomegaly with left heart predominance. 5. Enlargement of the central pulmonary arteries consistent with pulmonary arterial hypertension. No evident pulmonary embolism. 5. Small sliding-type hiatal hernia. 6. Severe bilateral renal atrophy. 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 Chest X-Ray 05/28/24 06:26 Impression: Probable mild bibasilar pulmonary edema/atelectasis with minimal pleural effusions. Developing hazy airspace opacity left upper lobe which could reflect additional pulmonary edema versus possibly focal pneumonia. Support tubes, as above. Labs Labs: Laboratory Results - last 24 hr 05/27/24 05/27/24 05/27/24 14:51 15:07 15:28 WBC RBC Hgb Hct MCV MCH MCHC RDW Plt Count MPV PT 15.0 H INR 1.1 APTT 33.2 Puncture Site Right radial ABG pH 7.387 ABG pCO2 30.4 L ABG pO2 91.2 ABG PO2/FiO2 Ratio 1.82 ABG HCO3 17.9 L ABG O2 Saturation 97.0 ABG O2 Content 14.9 L ABG Base Excess -6.1 A-a Gradient 231.1 Oxyhemoglobin 94.9 Carboxyhemoglobin 1.7 Methemoglobin 0.3 Reduced Hemoglobin 3.1 Total Hemoglobin 11.1 L O2 Delivery Device Ventilator O2 Liters/Min 0.0 Minute Volume Not Reportable Vent Rate 20 Vent Mode Cmv FiO2 50 Tidal Volume 420 PEEP 5 Peak Inspir Pressure Not Reportable Pressure Support 0 Sodium 137 Potassium 4.6 Chloride 95 L Carbon Dioxide 20 L Anion Gap 22 H BUN 25 H Creatinine 5.79 H Estim Creat Clear Calc 8 Estimated GFR 7 L Glucose 260 H POC Capillary Glucose Lactic Acid 9.3 H* Calcium 10.2 Phosphorus 7.0 H Magnesium 1.9 Total Bilirubin Direct Bilirubin AST ALT Alkaline Phosphatase Total Creatine Kinase 619 H Troponin I Total Protein Albumin Triglycerides Nasal MRSA (PCR) Random Vancomycin Digoxin 0.7 L Hep Bs Antigen Hep Bs Antibody Influenza A (RT-PCR) Influenza B (RT-PCR) RSV (RT-PCR) SARS-CoV-2 RNA (RT-PCR) 04/07/25 04/07/25 04/07/25 15:28 16:16 16:53 WBC RBC Hgb Hct MCV MCH MCHC RDW Plt Count MPV PT INR APTT Puncture Site ABG pH ABG pCO2 ABG pO2 ABG PO2/FiO2 Ratio ABG HCO3 ABG O2 Saturation ABG O2 Content ABG Base Excess A-a Gradient Oxyhemoglobin Carboxyhemoglobin Methemoglobin Reduced Hemoglobin Total Hemoglobin O2 Delivery Device O2 Liters/Min Minute Volume Vent Rate Vent Mode FiO2 Tidal Volume PEEP Peak Inspir Pressure Pressure Support Sodium Potassium Chloride Carbon Dioxide Anion Gap BUN Creatinine Estim Creat Clear Calc Estimated GFR Glucose POC Capillary Glucose 218 H Lactic Acid 9.5 H* Calcium Phosphorus Magnesium Total Bilirubin Direct Bilirubin AST ALT Alkaline Phosphatase Total Creatine Kinase Cancelled Troponin I 2.780 H* D Total Protein Albumin Triglycerides 183 H Nasal MRSA (PCR) Not detected Random Vancomycin Digoxin Hep Bs Antigen Hep Bs Antibody Influenza A (RT-PCR) Negative Influenza B (RT-PCR) Negative RSV (RT-PCR) Negative SARS-CoV-2 RNA (RT-PCR) Negative 05/27/24 05/27/24 05/27/24 18:15 19:16 19:18 WBC RBC Hgb Hct MCV MCH MCHC RDW Plt Count MPV PT INR APTT Puncture Site ABG pH ABG pCO2 ABG pO2 ABG PO2/FiO2 Ratio ABG HCO3 ABG O2 Saturation ABG O2 Content ABG Base Excess A-a Gradient Oxyhemoglobin Carboxyhemoglobin Methemoglobin Reduced Hemoglobin Total Hemoglobin O2 Delivery Device O2 Liters/Min Minute Volume Vent Rate Vent Mode FiO2 Tidal Volume PEEP Peak Inspir Pressure Pressure Support Sodium Potassium Chloride Carbon Dioxide Anion Gap BUN Creatinine Estim Creat Clear Calc Estimated GFR Glucose POC Capillary Glucose 192 H 159 H Lactic Acid Calcium Phosphorus Magnesium Total Bilirubin Direct Bilirubin AST ALT Alkaline Phosphatase Total Creatine Kinase Troponin I 13.800 H* D Total Protein Albumin Triglycerides Nasal MRSA (PCR) Random Vancomycin Digoxin Hep Bs Antigen Hep Bs Antibody Influenza A (RT-PCR) Influenza B (RT-PCR) RSV (RT-PCR) SARS-CoV-2 RNA (RT-PCR) 05/27/24 05/27/24 05/27/24 20:56 20:59 22:10 WBC RBC Hgb Hct MCV MCH MCHC RDW Plt Count MPV PT INR APTT Puncture Site ABG pH ABG pCO2 ABG pO2 ABG PO2/FiO2 Ratio ABG HCO3 ABG O2 Saturation ABG O2 Content ABG Base Excess A-a Gradient Oxyhemoglobin Carboxyhemoglobin Methemoglobin Reduced Hemoglobin Total Hemoglobin O2 Delivery Device O2 Liters/Min Minute Volume Vent Rate Vent Mode FiO2 Tidal Volume PEEP Peak Inspir Pressure Pressure Support Sodium Potassium Chloride Carbon Dioxide Anion Gap BUN Creatinine Estim Creat Clear Calc Estimated GFR Glucose POC Capillary Glucose 171 H 152 H Lactic Acid 3.5 H Calcium Phosphorus Magnesium Total Bilirubin Direct Bilirubin AST ALT Alkaline Phosphatase Total Creatine Kinase Troponin I Total Protein Albumin Triglycerides Nasal MRSA (PCR) Random Vancomycin Digoxin Hep Bs Antigen Hep Bs Antibody Influenza A (RT-PCR) Influenza B (RT-PCR) RSV (RT-PCR) SARS-CoV-2 RNA (RT-PCR) 05/27/24 05/28/24 05/28/24 23:20 00:21 00:33 WBC RBC Hgb Hct MCV MCH MCHC RDW Plt Count MPV PT INR APTT Puncture Site ABG pH ABG pCO2 ABG pO2 ABG PO2/FiO2 Ratio ABG HCO3 ABG O2 Saturation ABG O2 Content ABG Base Excess A-a Gradient Oxyhemoglobin Carboxyhemoglobin Methemoglobin Reduced Hemoglobin Total Hemoglobin O2 Delivery Device O2 Liters/Min Minute Volume Vent Rate Vent Mode FiO2 Tidal Volume PEEP Peak Inspir Pressure Pressure Support Sodium Potassium Chloride Carbon Dioxide Anion Gap BUN Creatinine Estim Creat Clear Calc Estimated GFR Glucose POC Capillary Glucose 172 H 135 H Lactic Acid Calcium Phosphorus Magnesium Total Bilirubin Direct Bilirubin AST ALT Alkaline Phosphatase Total Creatine Kinase Troponin I 20.000 H* D Total Protein Albumin Triglycerides Nasal MRSA (PCR) Random Vancomycin Digoxin Hep Bs Antigen Hep Bs Antibody Influenza A (RT-PCR) Influenza B (RT-PCR) RSV (RT-PCR) SARS-CoV-2 RNA (RT-PCR) 05/28/24 05/28/24 05/28/24 01:44 02:45 03:19 WBC RBC Hgb Hct MCV MCH MCHC RDW Plt Count MPV PT 16.5 H INR 1.3 APTT 38.4 H Puncture Site ABG pH ABG pCO2 ABG pO2 ABG PO2/FiO2 Ratio ABG HCO3 ABG O2 Saturation ABG O2 Content ABG Base Excess A-a Gradient Oxyhemoglobin Carboxyhemoglobin Methemoglobin Reduced Hemoglobin Total Hemoglobin O2 Delivery Device O2 Liters/Min Minute Volume Vent Rate Vent Mode FiO2 Tidal Volume PEEP Peak Inspir Pressure Pressure Support Sodium 139 Potassium 3.8 Chloride 98 Carbon Dioxide 27 Anion Gap 14 H BUN 34 H Creatinine 6.43 H Estim Creat Clear Calc 7 Estimated GFR 6 L Glucose 131 H POC Capillary Glucose 150 H 127 H Lactic Acid 2.0 Calcium 9.5 Phosphorus 4.4 Magnesium 1.7 Total Bilirubin Direct Bilirubin AST ALT Alkaline Phosphatase Total Creatine Kinase 1008 H Troponin I 19.900 H* Total Protein Albumin Triglycerides Nasal MRSA (PCR) Random Vancomycin Digoxin 2.0 Hep Bs Antigen Hep Bs Antibody Influenza A (RT-PCR) Influenza B (RT-PCR) RSV (RT-PCR) SARS-CoV-2 RNA (RT-PCR) 05/28/24 05/28/24 05/28/24 04:28 05:04 05:40 WBC 12.8 H RBC 3.34 L Hgb 8.8 L Hct 29.0 L MCV 86.8 D MCH 26.3 MCHC 30.3 L RDW 17.1 H Plt Count 244 MPV 9.8 PT INR APTT Puncture Site Right radial ABG pH 7.492 H ABG pCO2 32.3 L ABG pO2 74.7 L ABG PO2/FiO2 Ratio 1.49 ABG HCO3 24.2 ABG O2 Saturation 96.1 ABG O2 Content 13.0 L ABG Base Excess 1.2 A-a Gradient 245.5 Oxyhemoglobin 93.7 Carboxyhemoglobin 1.0 Methemoglobin 0.3 Reduced Hemoglobin 5.0 Total Hemoglobin 9.8 L O2 Delivery Device Ventilator O2 Liters/Min Not Reportable Minute Volume Not Reportable Vent Rate 20 Vent Mode Cmv FiO2 50 Tidal Volume 420 PEEP 5 Peak Inspir Pressure Not Reportable Pressure Support Not Reportable Sodium Potassium Chloride Carbon Dioxide Anion Gap BUN Creatinine Estim Creat Clear Calc Estimated GFR Glucose POC Capillary Glucose 143 H Lactic Acid Calcium Phosphorus Magnesium Total Bilirubin Direct Bilirubin AST ALT Alkaline Phosphatase Total Creatine Kinase Troponin I Total Protein Albumin Triglycerides Nasal MRSA (PCR) Random Vancomycin Digoxin Hep Bs Antigen Hep Bs Antibody Influenza A (RT-PCR) Influenza B (RT-PCR) RSV (RT-PCR) SARS-CoV-2 RNA (RT-PCR) 05/28/24 05/28/24 05/28/24 07:54 08:23 10:41 WBC RBC Hgb Hct MCV MCH MCHC RDW Plt Count MPV PT INR APTT Puncture Site ABG pH ABG pCO2 ABG pO2 ABG PO2/FiO2 Ratio ABG HCO3 ABG O2 Saturation ABG O2 Content ABG Base Excess A-a Gradient Oxyhemoglobin Carboxyhemoglobin Methemoglobin Reduced Hemoglobin Total Hemoglobin O2 Delivery Device O2 Liters/Min Minute Volume Vent Rate Vent Mode FiO2 Tidal Volume PEEP Peak Inspir Pressure Pressure Support Sodium Potassium Chloride Carbon Dioxide Anion Gap BUN Creatinine Estim Creat Clear Calc Estimated GFR Glucose POC Capillary Glucose 148 H 154 H Lactic Acid 2.3 H Calcium Phosphorus Magnesium Total Bilirubin 0.6 Direct Bilirubin 0.0 AST 416 H ALT 184 H Alkaline Phosphatase 158 H Total Creatine Kinase 826 H Troponin I Total Protein 6.0 L Albumin 3.2 L Triglycerides Nasal MRSA (PCR) Random Vancomycin Cancelled Digoxin Hep Bs Antigen Negative Hep Bs Antibody Positive Influenza A (RT-PCR) Influenza B (RT-PCR) RSV (RT-PCR) SARS-CoV-2 RNA (RT-PCR) 05/28/24 05/28/24 05/28/24 11:36 12:11 12:59 WBC RBC Hgb Hct MCV MCH MCHC RDW Plt Count MPV PT INR APTT Puncture Site ABG pH ABG pCO2 ABG pO2 ABG PO2/FiO2 Ratio ABG HCO3 ABG O2 Saturation ABG O2 Content ABG Base Excess A-a Gradient Oxyhemoglobin Carboxyhemoglobin Methemoglobin Reduced Hemoglobin Total Hemoglobin O2 Delivery Device O2 Liters/Min Minute Volume Vent Rate Vent Mode FiO2 Tidal Volume PEEP Peak Inspir Pressure Pressure Support Sodium Potassium Chloride Carbon Dioxide Anion Gap BUN Creatinine Estim Creat Clear Calc Estimated GFR Glucose POC Capillary Glucose 144 H 155 H Lactic Acid 3.1 H Calcium Phosphorus Magnesium Total Bilirubin Direct Bilirubin AST ALT Alkaline Phosphatase Total Creatine Kinase Troponin I Total Protein Albumin Triglycerides Nasal MRSA (PCR) Random Vancomycin Digoxin Hep Bs Antigen Hep Bs Antibody Influenza A (RT-PCR) Influenza B (RT-PCR) RSV (RT-PCR) SARS-CoV-2 RNA (RT-PCR) 05/28/24 14:02 WBC RBC Hgb Hct MCV MCH MCHC RDW Plt Count MPV PT INR APTT Puncture Site ABG pH ABG pCO2 ABG pO2 ABG PO2/FiO2 Ratio ABG HCO3 ABG O2 Saturation ABG O2 Content ABG Base Excess A-a Gradient Oxyhemoglobin Carboxyhemoglobin Methemoglobin Reduced Hemoglobin Total Hemoglobin O2 Delivery Device O2 Liters/Min Minute Volume Vent Rate Vent Mode FiO2 Tidal Volume PEEP Peak Inspir Pressure Pressure Support Sodium Potassium Chloride Carbon Dioxide Anion Gap BUN Creatinine Estim Creat Clear Calc Estimated GFR Glucose POC Capillary Glucose 145 H Lactic Acid Calcium Phosphorus Magnesium Total Bilirubin Direct Bilirubin AST ALT Alkaline Phosphatase Total Creatine Kinase Troponin I Total Protein Albumin Triglycerides Nasal MRSA (PCR) Random Vancomycin Digoxin Hep Bs Antigen Hep Bs Antibody Influenza A (RT-PCR) Influenza B (RT-PCR) RSV (RT-PCR) SARS-CoV-2 RNA (RT-PCR) Quality VTE Prophylaxis VTE prophylaxis: pharmacologic ordered
--- NOTE | 2024-05-28 14:50 | ECHO_ITS ---
Patient Info Name: Donya Tobin Age: 68 years : 1955 Gender: Female Ht: 62 in Wt: 159 lbs BSA: 1.80 m2 HR: 67 bpm BP: 119 / 84 mmHg Heart Rhythm: Sinus Rhythm Technical Quality: Good Exam Date: 05/28/2024 7:14 AM Exam Location: Echo Lab Patient Status: Inpatient Admit Date: 05/27/2024 Staff Ordering Physician: Fahad Jensen MD Suction Worker: Altagracia Sommer RDCS Attending Provider: Zahra Erwin MD Exam Type: CA echo dop color flow w con Study Info Indications - Cardiac arrest Complete two-dimensional, color flow and Doppler transthoracic echocardiogram is performed with contrast to opacify the left ventricle and to improve the deliniation of the left ventricle endocardial borders. Contrast/Agitated Saline Contrast/Ag. Saline: Definity Amount: 2.00 ml Administered By: Altagracia Sommer RDCS Existing IV Access: Yes IV Access Condition: patent with no signs of infiltration Summary 1. Definity contrast administered improved wall motion interpretation. 2. Left ventricular chamber dimension is severely enlarged. 3. Left ventricular systolic function is severely globally reduced, estimated at 20-25%. 4. There is mild concentric increased left ventricular wall thickness. 5. The left ventricular diastolic function is abnormal. 6. E/e' 23 is significantly elevated. 7. Left atrial chamber dimension is severely enlarged. 8. There is severe aortic valve sclerosis. 9. There is moderate aortic valve stenosis with a peak velocity of 155.81 cm/s, mean gradient of 5 mmHg, and aortic valve area of 1.29 cm2. 10. There is mild to moderate mitral valve regurgitation. 11. There is mild tricuspid valve regurgitation. 12. No pulmonary hypertension, estimated pulmonary arterial systolic pressure is 27 mmHg. Left Ventricle Definity contrast administered improved wall motion interpretation. E/e' 23 is significantly elevated. Left ventricular systolic function is severely globally reduced, estimated at 20-25%. Left ventricular chamber dimension is severely enlarged. There is mild concentric increased left ventricular wall thickness. The left ventricular diastolic function is abnormal. Right Ventricle Right ventricular chamber dimension is normal. Right ventricular systolic function is normal. Left Atria Left atrial chamber dimension is severely enlarged. Right Atria Right atrial chamber dimension is normal. Aortic Valve The aortic valve is trileaflet. There is severe aortic valve sclerosis. There is moderate aortic valve stenosis with a peak velocity of 155.81 cm/s, mean gradient of 5 mmHg, and aortic valve area of 1.29 cm2. There is no aortic valve regurgitation. Pulmonic Valve There is no pulmonic regurgitation. Mitral Valve There is no mitral valve stenosis. There is mild to moderate mitral valve regurgitation. Tricuspid Valve There is mild tricuspid valve regurgitation. No pulmonary hypertension, estimated pulmonary arterial systolic pressure is 27 mmHg. Pericardium/Pleural There is no pericardial effusion. Inferior Vena Cava Normal inferior vena cava with >50% collapse upon inspiration consistent with normal right atrial pressure, 5 mmHg. Aorta The aortic root size at the sinus of Valsalva is normal. Left Ventricular Outflow Tract Name Value Normal LVOT 2D LVOT Diameter 2.00 cm LVOT Doppler LVOT Peak Gradient 2 mmHg LVOT Mean Gradient 1 mmHg LVOT VTI 8.92 cm LVOT VTI/AV VTI Ratio 0.41 LVOT Stroke Volume 27.86 ml LVOT CO 2.02 l/min LVOT CI 1.12 L/min/m2 Pulmonic Valve Name Value Normal RVOT Doppler RVOT Peak Gradient 2 mmHg PV Doppler PV Peak Gradient 5 mmHg Mitral Valve Name Value Normal MV Doppler MV Decel [place] 359.87 cm/s2 MV PHT 0 s MV Area (PHT) 3.88 cm2 4.00-5.00 MV Regurgitation Doppler MR Peak Gradient 92 mmHg MV Diastolic Function MV E Peak Velocity 70.37 cm/s MV A Peak Velocity 46.20 cm/s MV E/A 1.52 MV Decel Time 0 s MV Annular TDI MV E/e' (Septal) 19.92 <=8.00 MV E/e' (Lateral) 27.99 <=8.00 MV E/e' (Average) 23.96 Tricuspid Valve Name Value Normal TV Regurgitation Doppler TR Peak Velocity 232.46 cm/s TR Peak Gradient 22 mmHg Estimated PAP/RSVP RA Pressure 5 mmHg <=5 PA Systolic Pressure 27 mmHg <36 RV Systolic Pressure 27 mmHg <36 Aortic Valve Name Value Normal AV Doppler AV Peak Velocity 155.81 cm/s AV Peak Gradient 10 mmHg AV Mean Gradient 5 mmHg AV VTI 21.56 cm AV Area (Cont Eq VTI) 1.29 cm2 >=3.00 AV Area (Cont Eq Kobi) 1.37 cm2 AV Regurgitation 2D LVOT Area 3.13 cm2 Ventricles Name Value Normal LV Dimensions 2D/MM IVS Diastolic Thickness (2D) 1.25 cm 0.60-1.00 LVID Diastole (2D) 4.72 cm 3.80-5.20 LVIW Diastolic Thickness (2D) 1.10 cm 0.60-0.90 LVID Systole (2D) 4.34 cm 2.20-3.50 LVOT Diameter 2.00 cm LV Mass (2D Cubed) 206.41 g 67.00-162.00 LV Mass Index (2D Cubed) 0.01 g/cm2 0.00-0.01 Relative Wall Thickness (2D) 0.47 LV Fractional Shortening/Ejection Fraction 2D/MM LV Fractional Shortening (2D) 8 % 27-45 LV EF (2D Teicholz) 18 % 54-74 LV Diastolic Volume (4C MOD) 100.42 ml LV EF (4C MOD) 17 % LV Diastolic Volume (2C MOD) 147.43 ml LV EF (2C MOD) 16 % LV Diastolic Volume (BP MOD) 125.50 ml 46.00-106.00 LV Diastolic Volume Index (BP MOD) 0.07 l/m2 0.03-0.06 LV Systolic Volume (BP MOD) 101.89 ml 14.00-42.00 LV Systolic Volume Index (BP MOD) 0.06 l/m2 0.01-0.02 LV EF (BP MOD) 19 % 54-74 LV Diastolic Length (4C) 8.23 cm LV Systolic Length (4C) 7.83 cm LV Stroke Volume (4C MOD) 17.07 ml Atria Name Value Normal LA Dimensions LA Volume (4C A-L) 101.56 ml LA Volume (BP A-L) 104.45 ml RA Dimensions RA Area (4C) 13.99 cm2 <=18.00 Report Signatures
[2024-05-28 15:13] LABS: Glucose Point of Care 146 mg/dl (65-105)
[2024-05-28 16:12] LABS: Glucose Point of Care 174 mg/dl (65-105)
[2024-05-28 16:21] LABS: Lactic Acid Reflex 2.9 mmol/L (0.7-2.0)
[2024-05-28 16:24] LABS: INR 1.3; Prothrombin Time 16.7 Seconds (11.1-14.7)
[2024-05-28 16:25] LABS: Partial Thromboplastin Time 42.3 Seconds (22.3-36.8)
[2024-05-28 16:28] LABS: Anion Gap 15 mmol/L (4-12); Blood Urea Nitrogen 36 mg/dL (7-17); Carbon Dioxide 26 mmol/L (22-30); Chloride 95 mmol/L (98-107); Creatine Kinase 596 U/L (30-135); Estimated CRCL calculation 7 ml/min; Estimated Glomerular Filt Rate 6; Glucose 177 mg/dL (65-110); Magnesium 2.2 mg/dL (1.6-2.3); Phosphorus 5.9 mg/dL (2.5-4.5); Potassium 3.8 mmol/L (3.4-5.0); Sodium 136 mmol/L (137-145)
[2024-05-28] MEDS: NOREPINEPHRINE 8 MG/D5W 250 ML 8 MG/250 ML BAG 33.75 MG IV CONT (16:53)
[2024-05-28 17:05] LABS: Glucose Point of Care 171 mg/dl (65-105)
[2024-05-28 18:08] LABS: Glucose Point of Care 162 mg/dl (65-105)
[2024-05-28] MEDS: CEFEPIME 1 GM/NS 50 ML 1 GM/50 ML BAG IVPB (18:09)
[2024-05-28 21:16] LABS: Glucose Point of Care 157 mg/dl (65-105)
[2024-05-28 21:34] LABS: Creatine Kinase 463 U/L (30-135); Lactic Acid Reflex 3.1 mmol/L (0.7-2.0)
[2024-05-28 22:41] LABS: Glucose Point of Care 159 mg/dl (65-105)
[2024-05-28 23:20] LABS: Reflex Lactic Acid Yes or No Add Lactic
[2024-05-28 23:54] LABS: Glucose Point of Care 160 mg/dl (65-105)
[2024-05-29] VITALS (90 sets, daily range): BP systolic 59–195; BP diastolic 43–166; PULSE 77–155; RESP 16–33; TEMP 36.5–37.6; O2SAT 95–100
[2024-05-29 00:04] LABS: Lactic Acid 3.2 mmol/L (0.7-2.0)
[2024-05-29] MEDS: NOREPINEPHRINE 8 MG/D5W 250 ML 8 MG/250 ML BAG 30 MG IV CONT (00:44)
[2024-05-29] MEDS: metroNIDAZOLE 500 MG/ISO 100ML 500 MG/100 ML BAG 100 MG IVPB ×3 (03:00→20:54)
[2024-05-29 05:04] LABS: Base Excess ABG 0.8 mEq/l (+/-2.0); Fractional Inspired Oxygen 30 %; HCO3 ABG 23.5 mEq/l (22.0-26.0); Oxygen Content ABG 13.3 %vol (16.0-22.0); Oxygen Saturation ABG 98.5 % (95.0-100.0); Oxyhemoglobin 97.4 % THb (90.0-100.0); PCO2 ABG 30.7 mmHg (35.0-45.0); PO2 ABG 111.8 mmHg (80.0-100.0); PO2 FiO2 Ratio Arterial Blood 3.73 %; Total Hemoglobin 9.6 g/dL (12.0-18.0)
[2024-05-29 05:32] LABS: Site Drawn RIGHT RADIAL; pH ABG 7.502 (7.350-7.450)
[2024-05-29 05:33] LABS: Arterial Blood Gas PEEP 10 cmH2O; Arterial Blood Gas Tidal Volume 420 ml; Arterial Blood Gas Vent Mode CMV; Arterial Blood Gas Ventilator rate 20 /MIN; Device VENTILATOR; Modified Allen's Test Pass
--- NOTE | 2024-05-29 06:35 | PC.NURSE ---
Updated Dr. Jensen with Radiology and Blood gas results, New orders received
[2024-05-29] MEDS: CISATRACURIUM BESYLATE 200 MG in SODIUM CHLORIDE 0.9% IV 80 ML 6.52 ML IV CONT (06:45)
[2024-05-29 07:02] LABS: Glucose Point of Care 156 mg/dl (65-105)
[2024-05-29 07:25] LABS: Anion Gap 15 mmol/L (4-12); Blood Urea Nitrogen 38 mg/dL (7-17); Calcium 8.5 mg/dL (8.4-10.2); Carbon Dioxide 25 mmol/L (22-30); Chloride 93 mmol/L (98-107); Creatine Kinase 286 U/L (30-135); Estimated CRCL calculation 6 ml/min; Estimated Glomerular Filt Rate 6; Glucose 167 mg/dL (65-110); Magnesium 2.1 mg/dL (1.6-2.3); Phosphorus 5.7 mg/dL (2.5-4.5); Potassium 3.8 mmol/L (3.4-5.0); Sodium 133 mmol/L (137-145)
[2024-05-29] MEDS: VASOPRESSIN INJ 100 UNITS in DEXTROSE 5% 95 ML IV CONT (08:02)
[2024-05-29] MEDS: PROPOFOL IV EMULSION 100 ML 8.69 MG IV CONT (08:05)
[2024-05-29] MEDS: NOREPINEPHRINE 8 MG/D5W 250 ML 8 MG/250 ML BAG 41.25 MG IV CONT (08:06)
[2024-05-29] MEDS: CENTRAL LINE FLUSH 10 ML IV PUSH ×2 (08:11→21:00)
[2024-05-29] MEDS: AMIODARONE 360 MG/D5W 200 ML 360 MG/200 ML BAG 16.67 MG IV CONT ×2 (08:16→20:45)
--- NOTE | 2024-05-29 08:57 | PM.CNGS ---
Assessment and Plan Assessment and plan (1) Pneumothorax, right: Code(s): J93.9 - Pneumothorax, unspecified Status: Acute Assessment and Plan: She presented yesterday with cardiac arrest and had prolonged resuscitation. Found to have a small right pneumothorax this morning on serial chest x-ray after intubation. She also has a history of COPD. CT chest today showed small to moderate right pneumothorax. She is currently hemodynamically stable but will need right chest tube placement while intubated on positive pressure ventilation. Dr. Nelson will proceed with right chest tube placement at the bedside this moring. (2) Acute respiratory failure with hypoxia: Code(s): J96.01 - Acute respiratory failure with hypoxia Status: Acute (3) Chronic obstructive pulmonary disease: Code(s): J44.9 - Chronic obstructive pulmonary disease, unspecified Status: Acute (4) Pulmonary edema: Code(s): J81.1 - Chronic pulmonary edema Status: Acute (5) Aspiration pneumonia: Code(s): J69.0 - Pneumonitis due to inhalation of food and vomit Status: Acute (6) Cardiac arrest with ventricular fibrillation: Code(s): I46.9 - Cardiac arrest, cause unspecified; I49.01 - Ventricular fibrillation Status: Acute (7) Afib: Code(s): I48.91 - Unspecified atrial fibrillation Status: Acute (8) Non-ischemic cardiomyopathy: Code(s): I42.8 - Other cardiomyopathies Status: Acute (9) Antiplatelet or antithrombotic long-term use: Code(s): Z79.02 - FDC (current) use of antithrombotics/antiplatelets Status: Acute (10) Diverticulitis: Code(s): K57.92 - Diverticulitis of intestine, part unspecified, without perforation or abscess without bleeding Status: Acute (11) CVA (cerebral vascular accident): Code(s): I63.9 - Cerebral infarction, unspecified Status: Acute Plan I have discussed the patient's case and plan of care with Dr. Nelson. History of Present Illness Consult details Consult date: 05/29/24 Reason for consult: other (Right pneumothorax) Requesting physician: Fahad Jensen MD Narrative: This is a 68-year-old woman with multiple medical problems, who presented to the ED after sustaining cardiac arrest. She became unresponsive in the car with family after getting dialysis. She was found to be in the food and intubated in the field. . In the ER, she had prolonged resuscitation but eventually had ROSC. She was intubated and had a central line placed. Post intubation chest x-ray did not show a pneumothorax, but showed probable bibasilar pulmonary edema/atelectasis with minimal pleural effusions, and airspace opacities that could reflect edema versus pneumonia. She remains in the ICU and is intubated, on sedation and paralytics. Repeat chest x-ray this morning showed a small right pneumothorax, which was a new finding. She had a CT head and chest today. CT chest showed a small to moderate right pneumothorax. Also seen is bibasilar consolidation was scattered hyperdense material in the lungs compatible with aspiration pneumonia and/or bibasilar atelectasis. Our service has been consulted for chest tube placement. She is currently hemodynamically stable and now seen in the ICU. Review of Systems Review of Systems: ROS unobtainable: Yes unobtainable due to endotracheal tube PMFSH Past Medical History Medical History Cerebrovascular accident (10/05/23) small left occipital lobe infarct following cervical spine surgery Chronic hypotension on midodrine Chronic obstructive pulmonary disease Chronic anticoagulation Renal osteodystrophy Combined systolic and diastolic congestive heart failure Echo 10/2012: severe LV enlargement, moderate LV dysfunction with wall motion abnormality at the inferior basal segment, EF 44%, grade 2 diastolic dysfunction. Non-ischemic cardiomyopathy Negative cardiac catheterization showing no obstructive coronary disease in 2003 at [place]. EF at that time was 20% but has improved to 54% in 02/2015. Chronic anemia History of blood transfusions. Hypothyroidism Gout Kidney stones Peptic ulcer (07/2003) Gastroesophageal reflux disease Deep venous thrombosis (02/2013) Paroxysmal atrial fibrillation s/p Watchman Obstructive sleep apnea End-stage renal disease on hemodialysis (09/2009) Type II diabetes mellitus Diet-controlled, Complicated by peripheral neuropathy and nephropathy. Asthma Diverticulosis Anxiety Hyperlipidemia Surgical History Surgical History Hx of cervical spine surgery C3-C6 laminectomies, C2-C7 instrumented posterior spinal fusion on 10/05/[address] [facility] Presence of Watchman left atrial appendage closure device 02/08/24 History of colonoscopy with polypectomy History of cardiac catheterization (08/20/13) Normal coronary arteries per Dr. Oliveros at [facility] Status post creation of arteriovenous fistula Left forearm. History of parathyroidectomy History of cystoscopy (03/2012) History of sleeve gastrectomy (2013) History of cardiac radiofrequency ablation (1993) For SVT. History of mandibular surgery (1987) For TMJ. History of angioplasty History of myomectomy History of cholecystectomy (2014) History of section History of hysterectomy (1993) Family History Family History Mother Hypertension Family history of congestive heart failure Family history of congenital heart disease Family history of arthritis Family history of kidney disease Family history of chronic obstructive pulmonary disease Father Carcinoma of colon Sibling Family history of diabetes mellitus in first degree relative Grandparent Family history of congestive heart failure Diabetes mellitus Father Carcinoma of colon Mother Diabetes mellitus Acute myocardial infarction Hypertension Hyperlipidemia Grandparent Diabetes mellitus Acute myocardial infarction Stomach cancer Other Family history of cardiovascular disease Social History Social History Social History: Surrogate decision maker: Sara Tobin Code status: Full code. Smoking status: Never smoker Second hand tobacco smoke exposure: No Alcohol intake: never Substance use: never Substance use type: does not use Do You Feel Safe in your Home?: Yes Lack of Transportation: No Lack of Food: Sometimes True Current Housing: I Have Housing Concerned About Future Housing: No Difficulty Paying Gas/Electric Bills: No Difficulty Paying for Meds: No Currently Unemployed: No Education: Decline to Answer Difficulty w/ Childcare or Family Care: No Additional living arrangements comments: Lives in [place]. 3 grown children. 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 Spiritual care concerns: No Meds Home Medications and Allergies Home Medications ?Medication ?Instructions ?Recorded ?Confirmed ?Type calcium acetate(phosphat bind) 667 667 mg PO BIDWM #60 tabs 04/25/23 05/27/24 Rx mg tablet lidocaine 4 % topical patch 1 patch topical DAILY #30 ea 04/25/23 05/27/24 Rx (Lidocaine Pain Relief) vitamin B complex-vitamin C-folic 1 tablet PO DAILY #30 tabs 04/25/23 05/27/24 Rx acid 0.8 mg tablet (Dialyvite 800) acetaminophen 500 mg tablet 500 mg PO QID PRN Fever Or Pain 10/18/23 05/27/24 History cholecalciferol (vitamin D3) 25 3,000 unit PO DAILY 10/18/23 05/27/24 History mcg (1,000 unit) tablet (Vitamin D3) cinacalcet 30 mg tablet (Sensipar) 60 mg PO QMWF 10/18/23 05/27/24 History fluoxetine 10 mg capsule (Prozac) 10 mg PO DAILY 10/18/23 05/27/24 History midodrine 5 mg tablet 15 mg PO TIDWMEAL 10/18/23 05/27/24 History atorvastatin 40 mg tablet 40 mg PO HS 30 days #30 tabs 11/03/23 05/27/24 Rx digoxin 125 mcg (0.125 mg) tablet 125 mcg PO SuTh 30 days #9 tabs 11/03/23 05/27/24 Rx fluticasone propionate 50 2 spray intranasal DAILY 30 days 11/03/23 05/27/24 Rx mcg/actuation nasal #16 grams spray,suspension latanoprost 0.005 % eye drops 1 drp EACH EYE HS 30 days #2.5 mL 11/03/23 05/27/24 Rx (Xalatan) montelukast 10 mg tablet 10 mg PO HS 30 days #30 tabs 11/03/23 05/27/24 Rx (Singulair) oxycodone 5 mg tablet 5 mg PO Q6H PRN Pain Rated 4-10 11/03/23 05/27/24 Rx #28 tabs peg [id number] 1 1 drp EACH EYE TID PRN Dry Eyes 30 11/03/23 05/27/24 Rx %-0.2 %-0.2 % eye drops days #15 mL (Artificial Tears ([id number])) aspirin 81 mg tablet,delayed 81 mg PO DAILY 03/25/24 05/27/24 History release (Adult Aspirin Regimen) gabapentin 100 mg capsule 200 mg PO BID 03/25/24 05/27/24 History lanthanum 1,000 mg chewable tablet 1,000 mg PO .with meals 03/25/24 05/27/24 History omeprazole 20 mg capsule,delayed 20 mg PO BID 03/25/24 05/27/24 History release clopidogrel 75 mg tablet 75 mg PO DAILY 03/28/24 05/27/24 History albuterol sulfate 1.25 mg/3 mL 1.25 mg (3 mL) inhalation Q4H PRN 04/02/24 05/27/24 Rx solution for nebulization shortness of breath or wheezing #90 mL albuterol sulfate 90 mcg/actuation 2 inh inhalation Q4H PRN shortness 04/02/24 05/27/24 Rx aerosol inhaler (Ventolin HFA) of breath or wheezing #8.5 grams fluticasone propionate 220 2 puff inhalation Q12H #12 grams 04/02/24 05/27/24 Rx mcg/actuation HFA aerosol inhaler tizanidine 4 mg capsule 4 mg PO QHS PRN muscle spasticity 05/01/24 05/27/24 Rx #30 caps benzonatate 100 mg capsule 100 mg PO Q6H PRN cough 05/27/24 05/27/24 History metoprolol succinate 25 mg 25 mg PO DAILY 05/27/24 05/27/24 History tablet,extended release 24 hr Allergies Allergy/AdvReac Type Severity Reaction Status Date / Time lisinopril Allergy Unknown Unknown Verified 03/25/24 16:07 propoxyphene Allergy Unknown Unknown Verified 03/25/24 16:07 valsartan AdvReac Unknown lost voice Verified 05/28/24 07:31 Vital Signs Vital Signs - 24 hr 05/28/24 09:00 05/28/24 09:01 05/28/24 09:10 Temperature 96.5 F L Pulse Rate 76 75 71 Respiratory Rate 20 Blood Pressure 101/71 65/53 L Pulse Oximetry 100 Oxygen Delivery Fraction of Inspired Oxygen 05/28/24 09:13 05/28/24 09:13 05/28/24 09:52 Temperature Pulse Rate 78 71 70 Respiratory Rate Blood Pressure 72/52 L 78/65 L 101/71 Pulse Oximetry Oxygen Delivery Fraction of Inspired Oxygen 05/28/24 10:00 05/28/24 10:00 05/28/24 10:00 Temperature 97.1 F L Pulse Rate 80 71 74 Respiratory Rate 20 20 Blood Pressure 99/70 L Pulse Oximetry 100 Oxygen Delivery Fraction of Inspired Oxygen 05/28/24 10:00 05/28/24 10:00 05/28/24 10:00 Temperature Pulse Rate 79 76 80 Respiratory Rate 20 20 Blood Pressure 101/71 101/71 Pulse Oximetry Oxygen Delivery Fraction of Inspired Oxygen 05/28/24 11:00 05/28/24 11:28 05/28/24 11:37 Temperature 97 F L Pulse Rate 74 75 73 Respiratory Rate 20 20 Blood Pressure 101/82 Pulse Oximetry 100 100 Oxygen Delivery Mechanical Ventilation Fraction of Inspired Oxygen 50 05/28/24 11:37 05/28/24 12:00 05/28/24 12:00 Temperature Pulse Rate 73 75 79 Respiratory Rate 20 20 Blood Pressure 118/95 H Pulse Oximetry 100 Oxygen Delivery Mechanical Ventilation Fraction of Inspired Oxygen 50 05/28/24 12:00 05/28/24 12:00 05/28/24 12:00 Temperature 97.2 F L Pulse Rate 79 83 Respiratory Rate 16 Blood Pressure 118/95 H Pulse Oximetry 100 Oxygen Delivery Fraction of Inspired Oxygen 50 05/28/24 12:00 05/28/24 12:00 05/28/24 12:00 Temperature Pulse Rate 72 75 76 Respiratory Rate 20 20 20 Blood Pressure 118/95 H Pulse Oximetry Oxygen Delivery Fraction of Inspired Oxygen 05/28/24 12:00 05/28/24 13:00 05/28/24 13:00 Temperature 97.2 F L Pulse Rate 72 76 78 Respiratory Rate 20 Blood Pressure 117/86 86/74 L 90/70 L Pulse Oximetry 100 Oxygen Delivery Fraction of Inspired Oxygen 05/28/24 13:05 05/28/24 13:30 05/28/24 14:00 Temperature Pulse Rate 80 81 100 Respiratory Rate Blood Pressure 99/78 L 99/68 L Pulse Oximetry 70 L Oxygen Delivery Mechanical Ventilation Fraction of Inspired Oxygen 50 05/28/24 14:00 05/28/24 14:00 05/28/24 14:00 Temperature 97.5 F L Pulse Rate 80 76 71 Respiratory Rate 20 Blood Pressure 104/73 102/72 Pulse Oximetry 100 Oxygen Delivery Fraction of Inspired Oxygen 05/28/24 14:00 05/28/24 14:00 05/28/24 14:00 Temperature Pulse Rate 64 81 80 Respiratory Rate 20 20 20 Blood Pressure 102/72 Pulse Oximetry Oxygen Delivery Fraction of Inspired Oxygen 05/28/24 14:00 05/28/24 15:00 05/28/24 16:00 Temperature 96.8 F L Pulse Rate 74 74 75 Respiratory Rate 20 Blood Pressure 111/79 116/84 111/81 Pulse Oximetry 100 Oxygen Delivery Fraction of Inspired Oxygen 05/28/24 16:00 05/28/24 16:00 05/28/24 16:00 Temperature Pulse Rate 75 75 75 Respiratory Rate 20 20 20 Blood Pressure 111/81 Pulse Oximetry Oxygen Delivery Fraction of Inspired Oxygen 05/28/24 16:00 05/28/24 16:00 05/28/24 16:00 Temperature 96.6 F L Pulse Rate 75 75 75 Respiratory Rate 20 Blood Pressure 111/81 111/81 Pulse Oximetry 100 Oxygen Delivery Fraction of Inspired Oxygen 05/28/24 16:00 05/28/24 16:00 05/28/24 16:50 Temperature Pulse Rate 75 100 Respiratory Rate 20 Blood Pressure Pulse Oximetry 100 79 L Oxygen Delivery Mechanical Ventilation Mechanical Ventilation Fraction of Inspired Oxygen 50 50 50 05/28/24 16:53 05/28/24 16:53 05/28/24 17:00 Temperature 97.2 F L Pulse Rate 75 75 89 Respiratory Rate 20 Blood Pressure 95/68 L 95/68 L 104/72 Pulse Oximetry 100 Oxygen Delivery Fraction of Inspired Oxygen 05/28/24 17:40 05/28/24 18:00 05/28/24 18:00 Temperature Pulse Rate 78 72 76 Respiratory Rate 20 20 Blood Pressure 114/87 114/87 Pulse Oximetry Oxygen Delivery Fraction of Inspired Oxygen 05/28/24 18:00 05/28/24 18:00 05/28/24 18:00 Temperature 97.2 F L Pulse Rate 76 76 89 Respiratory Rate 20 20 Blood Pressure 114/87 100/73 Pulse Oximetry 100 Oxygen Delivery Fraction of Inspired Oxygen 05/28/24 18:00 05/28/24 18:09 05/28/24 18:30 Temperature Pulse Rate 75 78 75 Respiratory Rate 20 Blood Pressure 114/87 131/76 Pulse Oximetry Oxygen Delivery Fraction of Inspired Oxygen 05/28/24 19:00 05/28/24 20:00 05/28/24 20:00 Temperature 96.8 F L Pulse Rate 73 80 80 Respiratory Rate 20 20 Blood Pressure 109/75 100/75 Pulse Oximetry 100 Oxygen Delivery Fraction of Inspired Oxygen 05/28/24 20:00 05/28/24 20:00 05/28/24 20:00 Temperature Pulse Rate 80 80 80 Respiratory Rate 20 20 Blood Pressure 100/75 100/75 Pulse Oximetry Oxygen Delivery Fraction of Inspired Oxygen 05/28/24 20:00 05/28/24 20:00 05/28/24 20:00 Temperature 96.8 F L Pulse Rate 108 H 83 Respiratory Rate 20 Blood Pressure 88/70 L Pulse Oximetry 100 100 Oxygen Delivery Mechanical Ventilation Fraction of Inspired Oxygen 50 05/28/24 20:00 05/28/24 20:42 05/28/24 20:42 Temperature Pulse Rate 81 81 Respiratory Rate 20 20 Blood Pressure Pulse Oximetry Oxygen Delivery Fraction of Inspired Oxygen 50 05/28/24 21:00 05/28/24 21:11 05/28/24 21:15 Temperature 97.5 F L Pulse Rate 83 85 90 Respiratory Rate 20 Blood Pressure 106/86 106/86 Pulse Oximetry 100 100 Oxygen Delivery Mechanical Ventilation Fraction of Inspired Oxygen 50 05/28/24 22:00 05/28/24 22:00 05/28/24 22:00 Temperature Pulse Rate 82 82 82 Respiratory Rate 20 Blood Pressure 112/70 112/70 112/70 Pulse Oximetry Oxygen Delivery Fraction of Inspired Oxygen 05/28/24 22:00 05/28/24 22:00 05/28/24 22:00 Temperature 97.7 F Pulse Rate 82 82 82 Respiratory Rate 20 20 20 Blood Pressure 112/70 Pulse Oximetry 100 Oxygen Delivery Fraction of Inspired Oxygen 05/28/24 22:00 05/28/24 22:30 05/28/24 23:00 Temperature 97.7 F 98.6 F Pulse Rate 82 88 89 Respiratory Rate 20 20 Blood Pressure 103/77 98/66 L Pulse Oximetry 100 100 Oxygen Delivery Fraction of Inspired Oxygen 05/28/24 23:15 05/28/24 23:45 05/29/24 00:00 Temperature 98.6 F Pulse Rate 87 94 Respiratory Rate Blood Pressure 101/77 Pulse Oximetry 100 Oxygen Delivery Mechanical Ventilation Fraction of Inspired Oxygen 40 05/29/24 00:00 05/29/24 00:00 05/29/24 00:00 Temperature 98.8 F Pulse Rate 93 93 Respiratory Rate 20 20 Blood Pressure 101/77 101/77 Pulse Oximetry 100 Oxygen Delivery Fraction of Inspired Oxygen 40 05/29/24 00:00 05/29/24 00:00 05/29/24 00:00 Temperature Pulse Rate 93 93 93 Respiratory Rate 20 20 Blood Pressure 101/77 Pulse Oximetry Oxygen Delivery Fraction of Inspired Oxygen 05/29/24 00:00 05/29/24 00:00 05/29/24 00:44 Temperature Pulse Rate 91 92 Respiratory Rate Blood Pressure 85/55 L Pulse Oximetry 100 Oxygen Delivery Mechanical Ventilation Fraction of Inspired Oxygen 40 05/29/24 00:44 05/29/24 02:00 05/29/24 02:00 Temperature 99.3 F Pulse Rate 92 88 88 Respiratory Rate 20 Blood Pressure 85/55 L 102/64 102/64 Pulse Oximetry 100 Oxygen Delivery Fraction of Inspired Oxygen 05/29/24 02:00 05/29/24 02:00 05/29/24 02:00 Temperature Pulse Rate 100 88 88 Respiratory Rate 20 20 Blood Pressure 102/64 102/64 Pulse Oximetry Oxygen Delivery Fraction of Inspired Oxygen 05/29/24 02:00 05/29/24 02:00 05/29/24 02:10 Temperature Pulse Rate 88 88 83 Respiratory Rate 20 Blood Pressure Pulse Oximetry 100 Oxygen Delivery Mechanical Ventilation Fraction of Inspired Oxygen 35 05/29/24 02:30 05/29/24 03:16 05/29/24 04:00 Temperature Pulse Rate 88 99 Respiratory Rate Blood Pressure 84/66 L Pulse Oximetry 100 Oxygen Delivery Mechanical Ventilation Fraction of Inspired Oxygen 40 05/29/24 04:00 05/29/24 04:00 05/29/24 04:00 Temperature 99.3 F Pulse Rate 99 100 94 Respiratory Rate 20 20 Blood Pressure 97/83 L 97/83 L 97/83 L Pulse Oximetry 100 Oxygen Delivery Fraction of Inspired Oxygen 05/29/24 04:00 05/29/24 04:00 05/29/24 04:00 Temperature Pulse Rate 94 94 94 Respiratory Rate 20 20 Blood Pressure 97/83 L Pulse Oximetry Oxygen Delivery Fraction of Inspired Oxygen 05/29/24 05:34 05/29/24 06:00 05/29/24 06:00 Temperature 99.3 F Pulse Rate 95 95 95 Respiratory Rate 20 Blood Pressure 90/64 L Pulse Oximetry 100 100 Oxygen Delivery Mechanical Ventilation Fraction of Inspired Oxygen 30 05/29/24 06:00 05/29/24 06:00 05/29/24 06:00 Temperature Pulse Rate 100 95 95 Respiratory Rate 20 Blood Pressure 90/64 L 90/64 L 90/64 L Pulse Oximetry Oxygen Delivery Fraction of Inspired Oxygen 05/29/24 06:00 05/29/24 06:00 05/29/24 06:15 Temperature Pulse Rate 95 95 94 Respiratory Rate 20 20 Blood Pressure 71/57 L Pulse Oximetry Oxygen Delivery Fraction of Inspired Oxygen 05/29/24 06:45 05/29/24 06:45 05/29/24 08:02 Temperature Pulse Rate 97 97 92 Respiratory Rate 20 20 Blood Pressure 117/78 117/78 89/74 L Pulse Oximetry Oxygen Delivery Fraction of Inspired Oxygen 05/29/24 08:05 05/29/24 08:05 05/29/24 08:06 Temperature Pulse Rate 97 97 97 Respiratory Rate 18 18 Blood Pressure 89/74 L Pulse Oximetry Oxygen Delivery Fraction of Inspired Oxygen 05/29/24 08:06 05/29/24 08:16 05/29/24 08:16 Temperature Pulse Rate 97 93 93 Respiratory Rate Blood Pressure 89/74 L 100/74 100/74 Pulse Oximetry Oxygen Delivery Fraction of Inspired Oxygen Exam Const: General: ill appearing acutely and chronically Nutritional Appearance: average body habitus Orientation/consciousness: patient obtunded (on sedation and paralytics on ventilator) HENMT: Head: normocephalic and atraumatic Eyes: General: appearance normal, both eyes and all related structures Neck: Neck: normal visual inspection and full ROM Chest: Chest palpation & inspection: no crepitus Other: right chest tunneled dialysis cath Resp: Effort & Inspection: other (Intubated) Auscultation: diminished lung sounds on the right Cardio: Rate: regular rate Rhythm: abnormal rhythm irregularly irregular GI: Inspection: non-distended and no visible herniation GI Palp: Yes Soft to palpation, No Tenderness to palpation present (GI) and No Guarding due to palpation present (GI) Auscultation: normal bowel sounds Skin: General skin exam: normal color Extrem: General: normal to inspection and no edema Psych: Insight: Limited insight present (Psych) Judgement: Limited judgement present (Psych) Results Labs 05/28/24 05:04 05/29/24 06:43 Labs: Abnormal lab results 05/28/24 05/28/24 05/28/24 Range/Units 10:41 11:36 12:11 PT (11.1-14.7) Seconds APTT (22.3-36.8) Seconds ABG pH (7.350-7.450) ABG pCO2 (35.0-45.0) mmHg ABG pO2 (80.0-100.0) mmHg ABG O2 Content (16.0-22.0) %vol Total Hemoglobin (12.0-18.0) g/dL Sodium (137-145) mmol/L Chloride (98-107) mmol/L Anion Gap (4-12) mmol/L BUN (7-17) mg/dL Creatinine (0.7-1.0) mg/dL Estimated GFR (59 - ) Glucose (65-110) mg/dL POC Capillary Glucose 154 H 144 H (65-105) mg/dl Lactic Acid 3.1 H (0.7-2.0) mmol/L Phosphorus (2.5-4.5) mg/dL Total Creatine Kinase (30-135) U/L 05/28/24 05/28/24 05/28/24 Range/Units 12:59 14:02 15:10 PT (11.1-14.7) Seconds APTT (22.3-36.8) Seconds ABG pH (7.350-7.450) ABG pCO2 (35.0-45.0) mmHg ABG pO2 (80.0-100.0) mmHg ABG O2 Content (16.0-22.0) %vol Total Hemoglobin (12.0-18.0) g/dL Sodium (137-145) mmol/L Chloride (98-107) mmol/L Anion Gap (4-12) mmol/L BUN (7-17) mg/dL Creatinine (0.7-1.0) mg/dL Estimated GFR (59 - ) Glucose (65-110) mg/dL POC Capillary Glucose 155 H 145 H 146 H (65-105) mg/dl Lactic Acid (0.7-2.0) mmol/L Phosphorus (2.5-4.5) mg/dL Total Creatine Kinase (30-135) U/L 05/28/24 05/28/24 05/28/24 Range/Units 16:06 16:07 17:03 PT 16.7 H (11.1-14.7) Seconds APTT 42.3 H (22.3-36.8) Seconds ABG pH (7.350-7.450) ABG pCO2 (35.0-45.0) mmHg ABG pO2 (80.0-100.0) mmHg ABG O2 Content (16.0-22.0) %vol Total Hemoglobin (12.0-18.0) g/dL Sodium 136 L (137-145) mmol/L Chloride 95 L (98-107) mmol/L Anion Gap 15 H (4-12) mmol/L BUN 36 H (7-17) mg/dL Creatinine 6.78 H (0.7-1.0) mg/dL Estimated GFR 6 L (59 - ) Glucose 177 H (65-110) mg/dL POC Capillary Glucose 174 H 171 H (65-105) mg/dl Lactic Acid 2.9 H (0.7-2.0) mmol/L Phosphorus 5.9 H (2.5-4.5) mg/dL Total Creatine Kinase 596 H (30-135) U/L 05/28/24 05/28/24 05/28/24 Range/Units 18:04 20:49 20:55 PT (11.1-14.7) Seconds APTT (22.3-36.8) Seconds ABG pH (7.350-7.450) ABG pCO2 (35.0-45.0) mmHg ABG pO2 (80.0-100.0) mmHg ABG O2 Content (16.0-22.0) %vol Total Hemoglobin (12.0-18.0) g/dL Sodium (137-145) mmol/L Chloride (98-107) mmol/L Anion Gap (4-12) mmol/L BUN (7-17) mg/dL Creatinine (0.7-1.0) mg/dL Estimated GFR (59 - ) Glucose (65-110) mg/dL POC Capillary Glucose 162 H 157 H (65-105) mg/dl Lactic Acid 3.1 H (0.7-2.0) mmol/L Phosphorus (2.5-4.5) mg/dL Total Creatine Kinase 463 H (30-135) U/L 05/28/24 05/28/24 05/28/24 Range/Units 22:39 23:47 23:50 PT (11.1-14.7) Seconds APTT (22.3-36.8) Seconds ABG pH (7.350-7.450) ABG pCO2 (35.0-45.0) mmHg ABG pO2 (80.0-100.0) mmHg ABG O2 Content (16.0-22.0) %vol Total Hemoglobin (12.0-18.0) g/dL Sodium (137-145) mmol/L Chloride (98-107) mmol/L Anion Gap (4-12) mmol/L BUN (7-17) mg/dL Creatinine (0.7-1.0) mg/dL Estimated GFR (59 - ) Glucose (65-110) mg/dL POC Capillary Glucose 159 H 160 H (65-105) mg/dl Lactic Acid 3.2 H (0.7-2.0) mmol/L Phosphorus (2.5-4.5) mg/dL Total Creatine Kinase (30-135) U/L 05/29/24 05/29/24 05/29/24 Range/Units 04:49 06:37 06:43 PT (11.1-14.7) Seconds APTT (22.3-36.8) Seconds ABG pH 7.502 H* (7.350-7.450) ABG pCO2 30.7 L (35.0-45.0) mmHg ABG pO2 111.8 H (80.0-100.0) mmHg ABG O2 Content 13.3 L (16.0-22.0) %vol Total Hemoglobin 9.6 L (12.0-18.0) g/dL Sodium 133 L (137-145) mmol/L Chloride 93 L (98-107) mmol/L Anion Gap 15 H (4-12) mmol/L BUN 38 H (7-17) mg/dL Creatinine 7.27 H (0.7-1.0) mg/dL Estimated GFR 6 L (59 - ) Glucose 167 H (65-110) mg/dL POC Capillary Glucose 156 H (65-105) mg/dl Lactic Acid (0.7-2.0) mmol/L Phosphorus 5.7 H (2.5-4.5) mg/dL Total Creatine Kinase 286 H (30-135) U/L Diabetes panel 05/28/24 05/29/24 Range/Units 16:06 06:43 Sodium 136 L 133 L (137-145) mmol/L Potassium 3.8 3.8 (3.4-5.0) mmol/L Chloride 95 L 93 L (98-107) mmol/L Carbon Dioxide 26 25 (22-30) mmol/L BUN 36 H 38 H (7-17) mg/dL Creatinine 6.78 H 7.27 H (0.7-1.0) mg/dL Glucose 177 H 167 H (65-110) mg/dL Calcium 9.0 8.5 (8.4-10.2) mg/dL Calcium panel 05/28/24 05/29/24 Range/Units 16:06 06:43 Calcium 9.0 8.5 (8.4-10.2) mg/dL Phosphorus 5.9 H 5.7 H (2.5-4.5) mg/dL Pituitary panel 05/28/24 05/29/24 Range/Units 16:06 06:43 Sodium 136 L 133 L (137-145) mmol/L Potassium 3.8 3.8 (3.4-5.0) mmol/L Chloride 95 L 93 L (98-107) mmol/L Carbon Dioxide 26 25 (22-30) mmol/L BUN 36 H 38 H (7-17) mg/dL Creatinine 6.78 H 7.27 H (0.7-1.0) mg/dL Glucose 177 H 167 H (65-110) mg/dL Calcium 9.0 8.5 (8.4-10.2) mg/dL Adrenal panel 05/28/24 05/29/24 Range/Units 16:06 06:43 Sodium 136 L 133 L (137-145) mmol/L Potassium 3.8 3.8 (3.4-5.0) mmol/L Chloride 95 L 93 L (98-107) mmol/L Carbon Dioxide 26 25 (22-30) mmol/L BUN 36 H 38 H (7-17) mg/dL Creatinine 6.78 H 7.27 H (0.7-1.0) mg/dL Glucose 177 H 167 H (65-110) mg/dL Calcium 9.0 8.5 (8.4-10.2) mg/dL All other labs normal. Imaging Additional studies: ITS Impressions Abdomen X-Ray 05/27/24 13:15 IMPRESSION: 1: NG tube tip in the stomach. Chest X-Ray 05/27/24 13:16 IMPRESSION: Bilateral upper and lower lobe pneumonia. Underlying pulmonary edema is also seen. Head CT 05/27/24 14:03 IMPRESSION: 1. No acute intracranial process. 2. Age-related changes including mild diffuse volume loss and unchanged mild scattered nonspecific cerebral white matter hypoattenuation consistent with chronic small vessel ischemic disease. Chest/Abdomen/Pelvis CTA 05/27/24 14:18 IMPRESSION: 1. Diffuse bilateral lung disease with most dense consolidation in the dependent right lower lobe. Would favor multifocal pneumonia over pulmonary edema. 2. Radiographically uncomplicated distal descending colon diverticulitis. 3. Endotracheal tube tip at the entrance to the left mainstem bronchus. Recommend withdrawal by 3 cm. This and the above 2 findings were discussed with Dr[address] Gordon at 2:30 PM. 4. Cardiomegaly with left heart predominance. 5. Enlargement of the central pulmonary arteries consistent with pulmonary arterial hypertension. No evident pulmonary embolism. 5. Small sliding-type hiatal hernia. 6. Severe bilateral renal atrophy. 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 Chest X-Ray 05/28/24 06:26 Impression: Probable mild bibasilar pulmonary edema/atelectasis with minimal pleural effusions. Developing hazy airspace opacity left upper lobe which could reflect additional pulmonary edema versus possibly focal pneumonia. Support tubes, as above. Chest X-Ray 05/29/24 06:16 Impression: Right apical pneumothorax, overall small in degree, new from prior exam. Chronic interstitial disease and/or interstitial edema. Minimal left pleural effusion. Support tubes, as above. Findings reported to the covering hospitalist at the time of this reading. Head CT 05/29/24 08:36 Impression: No acute abnormality seen. Chest CT 05/29/24 08:38 Impression: [id number] right pneumothorax. Bibasilar consolidation with scattered hyperdense material the lungs is compatible with aspiration pneumonia and/or bibasilar atelectasis. Correlate clinically. Minimal pleural fluid bilaterally.
--- NOTE | 2024-05-29 09:45 | WPDINTPN ---
Progress Note: A&P Assessment and Plan (1) Acute respiratory failure with hypoxia: Code(s): J96.01 - Acute respiratory failure with hypoxia Status: Acute Assessment and Plan: Acute Respiratory failure secondary to cardiac arrest, aspiration pneumonia, pulmonary edema, Patient now intubated and on mechanical ventilation Ventilator settings reviewed currently on 30% FiO2 and 5 of PEEP. Peep was dropped due to pneumothorax 05/29 chest x-ray showed right-sided pneumothorax a chest CT was done to confirm and showed right-sided small to moderate pneumothorax Status post chest tube insertion on the right side. Follow-up chest x-rays pain ABG reviewed Negative flu RSV and COVID PCR P.r.n. bronchodilators Blood cultures and sputum culture MRSA screen negative Empiric cefepime and Flagyl. Will discontinue vancomycin Plan for hemodialysis today to remove fluid if possible (2) Anoxic brain injury: Code(s): G93.1 - Anoxic brain damage, not elsewhere classified Status: Acute Assessment and Plan: Patient has sustained anoxic brain injury secondary to cardiac arrest as per exam of a mention Patient has been started on therapeutic hypothermia protocol to keep her temperature below 36 C for [address] was negative on presentation and05/29 Will hold Nimbex and sedation today and assess (3) Cardiac arrest: Code(s): I46.9 - Cardiac arrest, cause unspecified Status: Acute Assessment and Plan: Patient presented with VFib cardiac arrest. She has a background history of nonischemic cardiomyopathy, AFib status post Watchman procedure. She also has elevated troponin CTA was negative for PE at the time of presentation She was given amiodarone bolus and started on amiodarone infusion She had 2 episodes of VFib events overnight requiring DC defibrillation Echocardiogram done today shows EF of 20-25% with severely go be reduced function. Diastolic dysfunction severe aortic sclerosis and moderate aortic stenosis. [id number] MR Patient was evaluated by Cardiology no further recommendations at this time Serial troponin were done EKG reviewed Echo Summary 1. Definity contrast administered improved wall motion interpretation. 2. Left ventricular chamber dimension is severely enlarged. 3. Left ventricular systolic function is severely globally reduced, estimated at 20-25%. 4. There is mild concentric increased left ventricular wall thickness. 5. The left ventricular diastolic function is abnormal. 6. E/e' 23 is significantly elevated. 7. Left atrial chamber dimension is severely enlarged. 8. There is severe aortic valve sclerosis. 9. There is moderate aortic valve stenosis with a peak velocity of 155.81 cm/s, mean gradient of 5 mmHg, and aortic valve area of 1.29 cm2. 10. There is mild to moderate mitral valve regurgitation. 11. There is mild tricuspid valve regurgitation. 12. No pulmonary hypertension, estimated pulmonary arterial systolic pressure is 27 mmHg. (4) Non-ischemic cardiomyopathy: Code(s): I42.8 - Other cardiomyopathies Status: Acute Assessment and Plan: See above (5) Combined systolic and diastolic congestive heart failure: Code(s): I50.40 - Unspecified combined systolic (congestive) and diastolic (congestive) heart failure Status: Acute Assessment and Plan: See above (6) Paroxysmal atrial fibrillation: Code(s): I48.0 - Paroxysmal atrial fibrillation Status: Acute Assessment and Plan: Status post Watchman procedure Not on anticoagulation likely secondary to history of GI bleed Continue aspirin Plavix Amiodarone infusion (7) Hyperlipidemia: Code(s): E78.5 - Hyperlipidemia, unspecified Status: Acute Assessment and Plan: Hold statin due to elevated liver enzyme which are likely secondary to shock liver (8) End-stage renal disease on hemodialysis: Onset Date: 09/2009 Code(s): N18.6 - End stage renal disease; Z99.2 - Dependence on renal dialysis Status: Acute Assessment and Plan: Consult nephrology for hemodialysis (9) Chronic anemia: Code(s): D64.9 - Anemia, unspecified Status: Chronic Assessment and Plan: Monitor hemoglobin (10) CVA (cerebral vascular accident): Code(s): I63.9 - Cerebral infarction, unspecified Status: Acute Assessment and Plan: Continue aspirin Plavix. Hold statin (11) Chronic obstructive pulmonary disease: Code(s): J44.9 - Chronic obstructive pulmonary disease, unspecified Status: Acute Assessment and Plan: See above (12) Aspiration pneumonia: Code(s): J69.0 - Pneumonitis due to inhalation of food and vomit Status: Acute Assessment and Plan: See above (13) Pulmonary edema: Code(s): J81.1 - Chronic pulmonary edema Status: Acute Assessment and Plan: Will need hemodialysis once stabilized (14) Ventricular fibrillation: Code(s): I49.01 - Ventricular fibrillation Status: Acute Assessment and Plan: See above Plan DVT prophylaxis -Lovenox Stress ulcer prophylaxis -PPI Nutrition -will start tube feeding today Code Status - Full Code I spoke to patient patient's daughter and updated her with patient's status overnight including new new finding off pneumothorax on right. He also discussed need for chest tube insertion. Case discussed General surgery. Total Critical Care Time - 30 minutes Due to a high probability of clinically significant, life threatening deterioration, the patient required my highest level of preparedness to intervene emergently and I personally spent this critical care time directly and personally managing the patient. This critical care time included obtaining a history; examining the patient; pulse oximetry; ordering and review of studies; arranging urgent treatment with development of a management plan; evaluation of patient's response to treatment; frequent reassessment; and discussions with other providers. It was exclusive of separately billable procedures and treating other patients and teaching time. Please see Assessment and Plan section and the rest of the note for further information on patient assessment and treatment Subjective Date/time seen: 05/29/24 Overnight events reviewed. Completed hypothermia protocol and was rewarming overnight Continues to be on mechanical ventilation 30% FiO2 Continues to be on vasopressors Levophed Continues to be sedated with propofol and fentanyl. Paralyzed with Nimbex New right-sided pneumothorax this morning requiring chest tube insertion Urine output low, NPO Review of Systems Review of Systems: ROS unobtainable: Yes unobtainable due to endotracheal tube, unobtainable due to medical condition and unobtainable due to mental status Exam Narrative: General: Pt is was just sedated, chemically paralyzed, intubated and on mechanical ventilation. Lungs/Chest: Trachea central Coarse BS B/L, bibasilar crackle Cardiac: RRR. Normal S1 S2. No murmurs tachycardia Circulation: Feet are cold Abdomen: Decreased bowel sounds. Soft. NT. ND. Extremities: No clubbing, cyanosis or edema. Warm : Hoover in place Neurologic: Patient is currently sedated and paralyzed with Nimbex, PERRL sluggish, Objective Data Vital Signs Vital Signs: Vital Signs - 24 hr 05/28/24 09:52 05/28/24 10:05/28/24 10:00 Temperature 36.2 C L Pulse Rate 70 80 71 Respiratory Rate 20 Blood Pressure 101/71 99/70 L Pulse Oximetry 100 Oxygen Delivery Fraction of Inspired Oxygen 05/28/24 10:00 05/28/24 10:00 05/28/24 10:00 Temperature Pulse Rate 74 79 76 Respiratory Rate 20 20 Blood Pressure 101/71 101/71 Pulse Oximetry Oxygen Delivery Fraction of Inspired Oxygen 05/28/24 10:00 05/28/24 11:00 05/28/24 11:28 Temperature 36.1 C L Pulse Rate 80 74 75 Respiratory Rate 20 20 Blood Pressure 101/82 Pulse Oximetry 100 100 Oxygen Delivery Mechanical Ventilation Fraction of Inspired Oxygen 50 05/28/24 11:37 05/28/24 11:37 05/28/24 12:00 Temperature Pulse Rate 73 73 75 Respiratory Rate 20 20 Blood Pressure 118/95 H Pulse Oximetry Oxygen Delivery Fraction of Inspired Oxygen 05/28/24 12:00 05/28/24 12:00 05/28/24 12:00 Temperature 36.2 C L Pulse Rate 79 79 83 Respiratory Rate 20 16 Blood Pressure 118/95 H Pulse Oximetry 100 100 Oxygen Delivery Mechanical Ventilation Fraction of Inspired Oxygen 50 05/28/24 12:00 05/28/24 12:00 05/28/24 12:00 Temperature Pulse Rate 72 75 Respiratory Rate 20 20 Blood Pressure 118/95 H Pulse Oximetry Oxygen Delivery Fraction of Inspired Oxygen 50 05/28/24 12:00 05/28/24 12:00 05/28/24 13:00 Temperature Pulse Rate 76 72 76 Respiratory Rate 20 Blood Pressure 117/86 86/74 L Pulse Oximetry Oxygen Delivery Fraction of Inspired Oxygen 05/28/24 13:00 05/28/24 13:05 05/28/24 13:30 Temperature 36.2 C L Pulse Rate 78 80 81 Respiratory Rate 20 Blood Pressure 90/70 L 99/78 L 99/68 L Pulse Oximetry 100 Oxygen Delivery Fraction of Inspired Oxygen 05/28/24 14:00 05/28/24 14:00 05/28/24 14:00 Temperature 36.4 C L Pulse Rate 100 80 76 Respiratory Rate 20 Blood Pressure 104/73 Pulse Oximetry 70 L 100 Oxygen Delivery Mechanical Ventilation Fraction of Inspired Oxygen 50 05/28/24 14:00 05/28/24 14:00 05/28/24 14:00 Temperature Pulse Rate 71 64 81 Respiratory Rate 20 20 Blood Pressure 102/72 102/72 Pulse Oximetry Oxygen Delivery Fraction of Inspired Oxygen 05/28/24 14:00 05/28/24 14:00 05/28/24 15:00 Temperature 36.0 C L Pulse Rate 80 74 74 Respiratory Rate 20 20 Blood Pressure 111/79 116/84 Pulse Oximetry 100 Oxygen Delivery Fraction of Inspired Oxygen 05/28/24 16:00 05/28/24 16:00 05/28/24 16:00 Temperature Pulse Rate 75 75 75 Respiratory Rate 20 20 Blood Pressure 111/81 111/81 Pulse Oximetry Oxygen Delivery Fraction of Inspired Oxygen 05/28/24 16:00 05/28/24 16:00 05/28/24 16:00 Temperature 35.9 C L Pulse Rate 75 75 75 Respiratory Rate 20 20 Blood Pressure 111/81 111/81 Pulse Oximetry 100 Oxygen Delivery Fraction of Inspired Oxygen 05/28/24 16:00 05/28/24 16:00 05/28/24 16:00 Temperature Pulse Rate 75 75 Respiratory Rate 20 Blood Pressure Pulse Oximetry 100 Oxygen Delivery Mechanical Ventilation Fraction of Inspired Oxygen 50 50 05/28/24 16:50 05/28/24 16:53 05/28/24 16:53 Temperature Pulse Rate 100 75 75 Respiratory Rate Blood Pressure 95/68 L 95/68 L Pulse Oximetry 79 L Oxygen Delivery Mechanical Ventilation Fraction of Inspired Oxygen 50 05/28/24 17:00 05/28/24 17:40 05/28/24 18:00 Temperature 36.2 C L Pulse Rate 89 78 72 Respiratory Rate 20 20 Blood Pressure 104/72 114/87 114/87 Pulse Oximetry 100 Oxygen Delivery Fraction of Inspired Oxygen 05/28/24 18:00 05/28/24 18:00 05/28/24 18:00 Temperature Pulse Rate 76 76 76 Respiratory Rate 20 20 Blood Pressure 114/87 Pulse Oximetry Oxygen Delivery Fraction of Inspired Oxygen 05/28/24 18:00 05/28/24 18:00 05/28/24 18:09 Temperature 36.2 C L Pulse Rate 89 75 78 Respiratory Rate 20 20 Blood Pressure 100/73 114/87 Pulse Oximetry 100 Oxygen Delivery Fraction of Inspired Oxygen 05/28/24 18:30 05/28/24 19:00 05/28/24 20:00 Temperature 36.0 C L Pulse Rate 75 73 80 Respiratory Rate 20 20 Blood Pressure 131/76 109/75 Pulse Oximetry 100 Oxygen Delivery Fraction of Inspired Oxygen 05/28/24 20:00 05/28/24 20:00 05/28/24 20:00 Temperature Pulse Rate 80 80 80 Respiratory Rate 20 20 Blood Pressure 100/75 100/75 Pulse Oximetry Oxygen Delivery Fraction of Inspired Oxygen 05/28/24 20:00 05/28/24 20:00 05/28/24 20:00 Temperature 36.0 C L Pulse Rate 80 108 H Respiratory Rate 20 Blood Pressure 100/75 88/70 L Pulse Oximetry 100 100 Oxygen Delivery Mechanical Ventilation Fraction of Inspired Oxygen 50 05/28/24 20:00 05/28/24 20:00 05/28/24 20:42 Temperature Pulse Rate 83 81 Respiratory Rate 20 Blood Pressure Pulse Oximetry Oxygen Delivery Fraction of Inspired Oxygen 50 05/28/24 20:42 05/28/24 21:00 05/28/24 21:11 Temperature 36.4 C L Pulse Rate 81 83 85 Respiratory Rate 20 20 Blood Pressure 106/86 106/86 Pulse Oximetry 100 Oxygen Delivery Fraction of Inspired Oxygen 05/28/24 21:15 05/28/24 22:00 05/28/24 22:00 Temperature Pulse Rate 90 82 82 Respiratory Rate 20 Blood Pressure 112/70 112/70 Pulse Oximetry 100 Oxygen Delivery Mechanical Ventilation Fraction of Inspired Oxygen 50 05/28/24 22:00 05/28/24 22:00 05/28/24 22:00 Temperature Pulse Rate 82 82 82 Respiratory Rate 20 20 Blood Pressure 112/70 Pulse Oximetry Oxygen Delivery Fraction of Inspired Oxygen 05/28/24 22:00 05/28/24 22:00 05/28/24 22:30 Temperature 36.5 C 36.5 C Pulse Rate 82 82 88 Respiratory Rate 20 20 Blood Pressure 112/70 103/77 Pulse Oximetry 100 100 Oxygen Delivery Fraction of Inspired Oxygen 05/28/24 23:00 05/28/24 23:15 05/28/24 23:45 Temperature 37.0 C 37.0 C Pulse Rate 89 87 Respiratory Rate 20 Blood Pressure 98/66 L Pulse Oximetry 100 100 Oxygen Delivery Mechanical Ventilation Fraction of Inspired Oxygen 40 05/29/24 00:00 05/29/24 00:00 05/29/24 00:00 Temperature 37.1 C Pulse Rate 94 93 Respiratory Rate 20 Blood Pressure 101/77 101/77 Pulse Oximetry 100 Oxygen Delivery Fraction of Inspired Oxygen 40 05/29/24 00:00 05/29/24 00:00 05/29/24 00:00 Temperature Pulse Rate 93 93 93 Respiratory Rate 20 20 Blood Pressure 101/77 101/77 Pulse Oximetry Oxygen Delivery Fraction of Inspired Oxygen 05/29/24 00:00 05/29/24 00:00 05/29/24 00:00 Temperature Pulse Rate 93 91 Respiratory Rate 20 Blood Pressure Pulse Oximetry 100 Oxygen Delivery Mechanical Ventilation Fraction of Inspired Oxygen 40 05/29/24 00:44 05/29/24 00:44 05/29/24 02:00 Temperature 37.4 C Pulse Rate 92 92 88 Respiratory Rate 20 Blood Pressure 85/55 L 85/55 L 102/64 Pulse Oximetry 100 Oxygen Delivery Fraction of Inspired Oxygen 05/29/24 02:00 05/29/24 02:00 05/29/24 02:00 Temperature Pulse Rate 88 100 88 Respiratory Rate 20 Blood Pressure 102/64 102/64 102/64 Pulse Oximetry Oxygen Delivery Fraction of Inspired Oxygen 05/29/24 02:00 05/29/24 02:00 05/29/24 02:00 Temperature Pulse Rate 88 88 88 Respiratory Rate 20 20 Blood Pressure Pulse Oximetry Oxygen Delivery Fraction of Inspired Oxygen 05/29/24 02:10 05/29/24 02:30 05/29/24 03:16 Temperature Pulse Rate 83 88 Respiratory Rate Blood Pressure 84/66 L Pulse Oximetry 100 100 Oxygen Delivery Mechanical Ventilation Mechanical Ventilation Fraction of Inspired Oxygen 35 40 05/29/24 04:00 05/29/24 04:00 05/29/24 04:00 Temperature 37.4 C Pulse Rate 99 99 100 Respiratory Rate 20 20 Blood Pressure 97/83 L 97/83 L Pulse Oximetry 100 Oxygen Delivery Fraction of Inspired Oxygen 05/29/24 04:00 05/29/24 04:00 05/29/24 04:00 Temperature Pulse Rate 94 94 94 Respiratory Rate 20 Blood Pressure 97/83 L 97/83 L Pulse Oximetry Oxygen Delivery Fraction of Inspired Oxygen 05/29/24 04:00 05/29/24 05:34 05/29/24 06:00 Temperature Pulse Rate 94 95 95 Respiratory Rate 20 Blood Pressure Pulse Oximetry 100 Oxygen Delivery Mechanical Ventilation Fraction of Inspired Oxygen 30 05/29/24 06:00 05/29/24 06:00 05/29/24 06:00 Temperature 37.4 C Pulse Rate 95 100 95 Respiratory Rate 20 20 Blood Pressure 90/64 L 90/64 L 90/64 L Pulse Oximetry 100 Oxygen Delivery Fraction of Inspired Oxygen 05/29/24 06:00 05/29/24 06:00 05/29/24 06:00 Temperature Pulse Rate 95 95 95 Respiratory Rate 20 20 Blood Pressure 90/64 L Pulse Oximetry Oxygen Delivery Fraction of Inspired Oxygen 05/29/24 06:15 05/29/24 06:45 05/29/24 06:45 Temperature Pulse Rate 94 97 97 Respiratory Rate 20 20 Blood Pressure 71/57 L 117/78 117/78 Pulse Oximetry Oxygen Delivery Fraction of Inspired Oxygen 05/29/24 08:02 05/29/24 08:05 05/29/24 08:05 Temperature Pulse Rate 92 97 97 Respiratory Rate 18 18 Blood Pressure 89/74 L Pulse Oximetry Oxygen Delivery Fraction of Inspired Oxygen 05/29/24 08:06 05/29/24 08:06 05/29/24 08:16 Temperature Pulse Rate 97 97 93 Respiratory Rate Blood Pressure 89/74 L 89/74 L 100/74 Pulse Oximetry Oxygen Delivery Fraction of Inspired Oxygen 05/29/24 08:16 05/29/24 09:05 05/29/24 09:07 Temperature Pulse Rate 93 86 85 Respiratory Rate 24 H Blood Pressure 100/74 135/82 Pulse Oximetry Oxygen Delivery Fraction of Inspired Oxygen 05/29/24 09:09 05/29/24 09:10 05/29/24 09:11 Temperature Pulse Rate 84 86 91 Respiratory Rate 30 H Blood Pressure 135/82 135/82 Pulse Oximetry Oxygen Delivery Fraction of Inspired Oxygen Intake/Output Intake/Output: Intake & Output 05/26/24 05/27/24 05/28/24 05/29/24 23:59 23:59 23:59 23:59 Intake Total 946.7 1986.4 863.2 Output Total 0 400 0 Balance 946.7 1586.4 863.2 Meds/Results Medications: Active Medications Generic Name Dose Route Start Last Admin Trade Name Freq PRN Reason Stop Dose Admin Albuterol/Ipratropium 3 ml 05/27/24 15:02 05/28/24 21:10 Ipratropium 0.5 Mg/Albuterol Sulfate 2.5 Mg Ampul.Neb 3 Ml INHALATION 3 ml Q6HRT PRN Administration Wheezing Aspirin 325 mg 05/28/24 08:00 05/28/24 07:55 Aspirin 325 Mg Tablet FEED TUBE 325 mg DAILY@0800 [facility] Administration Clopidogrel Bisulfate 75 mg 05/28/24 09:00 05/28/24 07:55 Clopidogrel Bisulfate 75 Mg Tablet FEED TUBE 75 mg QAM JAZMIN Administration Dextrose 12.5 gm 05/27/24 14:50 Dextrose 50% 25 Gm/50 Ml Syringe IV PUSH PRN PRN Hypoglycemia Protocol Enoxaparin Sodium 30 mg 05/28/24 09:00 05/28/24 07:56 Enoxaparin 30 Mg/0.3 Ml Syringe SUB-Q 30 mg DAILY JAZMIN Administration Epoetin Daniele-epbx 10,000 units 05/29/24 18:26 Epoetin Daniele-Epbx 10,000 Units/Ml Vial IV PUSH 05/29/24 18:27 ONCE ONE Glucagon 1 mg 05/27/24 14:50 Glucagon For Inj 1 Mg Vial IM PRN PRN Hypoglycemia Protocol Glucose 15 gm 05/27/24 14:50 Glucose Oral Gel 15 Gm Of Glucse In 37.5 Gm Tube PO PRN PRN Hypoglycemia Protocol Cisatracurium Besylate 200 mg/ 100 mls @ 6.516 mls/hr 05/27/24 14:50 05/29/24 06:45 Sodium Chloride IV CONT 3 mcg/kg/min .[id number] JAZMIN 6.52 mls/hr Administration Protocol 3 MCG/KG/MIN Fentanyl Citrate 2,500 mcg in 250 mls @ 2.5 mls/hr 05/27/24 14:50 05/29/24 09:07 Fentanyl 2,500 Mcg/Ns 250 Ml IV CONT 50 mcg/hr .Q72H JAZMIN 5 mls/hr Titration Protocol 25 MCG/HR Propofol 100 mls @ 8.688 mls/hr 05/27/24 14:50 05/29/24 09:10 Diprivan IV CONT 20 mcg/kg/min .[id number] JAZMIN 8.69 mls/hr Titration Protocol 20 MCG/KG/MIN Dextrose 1,000 mls @ 100 mls/hr 05/27/24 14:50 Dextrose 5% 1,000 Ml IVPB PRN PRN Hypoglycemia Protocol Levetiracetam 500 mg in 100 mls @ 400 mls/hr 05/27/24 21:00 05/28/24 22:15 Keppra Iv IVPB Infused Q12HR JAZMIN Infusion Metronidazole 500 mg in 100 mls @ 100 mls/hr 05/28/24 04:00 05/29/24 04:00 Flagyl 500 Mg/Iso Soln 100 Ml IVPB Infused Q8H JAZMIN Infusion Norepinephrine Bitartrate 8 mg in 250 mls @ 41.25 mls/hr 05/28/24 05:20 05/29/24 09:05 Levophed 8 Mg/D5w 250 Ml IV CONT 22 mcg/min .Q6H4M JAZMIN 41.25 mls/hr Titration Protocol 22 MCG/MIN Cefepime HCl 1 gm in 50 mls @ 100 mls/hr 05/28/24 18:00 05/28/24 19:00 Maxipime 1 Gm/Ns 50 Ml IVPB Infused DAILY@1800 JAZMIN Infusion Amiodarone HCl/Dextrose 360 mg in 200 mls @ 16.667 mls/hr 05/28/24 21:30 05/29/24 09:11 Nexterone 360 Mg/D5w 200 Ml IV CONT 06/19/24 15:29 0.5 mg/min .Q12H JAZMIN 16.67 mls/hr Infusion Protocol 0.5 MG/MIN Albumin Human 50 mls @ 999 mls/hr 05/29/24 06:26 Albutein IVPB 06/28/24 06:25 Q10M PRN HYPOTENSION Vasopressin 100 units/ 100 mls @ 2.4 mls/hr 05/29/24 07:45 05/29/24 09:09 Dextrose IV CONT 0.04 units/min .[id number] JAZMIN 2.4 mls/hr Titration Protocol 0.04 UNITS/MIN Insulin Aspart 3 - 6 units 05/28/24 00:00 05/29/24 08:11 Insulin Aspart (*Bkc) 100 Units/Ml SUB-Q Not Given Q4HR [facility] Protocol Midazolam HCl 2 mg 05/27/24 14:50 Midazolam Hcl (*Crx) 2 Mg/2 Ml Vial IV PUSH Q5M PRN ventilator asynchrony Multi-Ingred Cream/Lotion/Oil/Oint 1 applic 05/27/24 21:00 05/28/24 20:48 Mineral Oil/White Petrolatum Ointment EACH EYE 1 applic Q12HR JAZMIN Administration Ondansetron HCl 4 mg 05/27/24 14:13 Ondansetron Inj 4 Mg/2 Ml Vial IV PUSH Q4H PRN Nausea Pantoprazole Sodium 40 mg 05/28/24 09:00 05/28/24 07:56 Pantoprazole Sodium Iv 40 Mg Vial IV PUSH 40 mg DAILY JAZMIN Administration Sodium Chloride 10 ml 05/28/24 14:00 05/29/24 08:11 Central Line Flush IV PUSH 10 ml Q8HR JAZIMN Administration Sodium Chloride 20 ml 05/28/24 10:09 Central Line Flush IV PUSH PRN PRN after blood draws Radiology Results: ITS Impressions Abdomen X-Ray 05/27/24 13:15 IMPRESSION: 1: NG tube tip in the stomach. Chest/Abdomen/Pelvis CTA 05/27/24 14:18 IMPRESSION: 1. Diffuse bilateral lung disease with most dense consolidation in the dependent right lower lobe. Would favor multifocal pneumonia over pulmonary edema. 2. Radiographically uncomplicated distal descending colon diverticulitis. 3. Endotracheal tube tip at the entrance to the left mainstem bronchus. Recommend withdrawal by 3 cm. This and the above 2 findings were discussed with Dr. Gordon at 2:30 PM. 4. Cardiomegaly with left heart predominance. 5. Enlargement of the central pulmonary arteries consistent with pulmonary arterial hypertension. No evident pulmonary embolism. 5. Small sliding-type hiatal hernia. 6. Severe bilateral renal atrophy. 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 Chest X-Ray 05/29/24 06:16 Impression: Right apical pneumothorax, overall small in degree, new from prior exam. Chronic interstitial disease and/or interstitial edema. Minimal left pleural effusion. Support tubes, as above. Findings reported to the covering hospitalist at the time of this reading. Head CT 05/29/24 08:36 Impression: No acute abnormality seen. Chest CT 05/29/24 08:38 Impression: [id number] right pneumothorax. Bibasilar consolidation with scattered hyperdense material the lungs is compatible with aspiration pneumonia and/or bibasilar atelectasis. Correlate clinically. Minimal pleural fluid bilaterally. Labs Labs: Laboratory Results - last 24 hr 05/28/24 05/28/24 05/28/24 07:54 10:41 11:36 PT INR APTT Puncture Site ABG pH ABG pCO2 ABG pO2 ABG PO2/FiO2 Ratio ABG HCO3 ABG O2 Saturation ABG O2 Content ABG Base Excess A-a Gradient Oxyhemoglobin Total Hemoglobin O2 Delivery Device O2 Liters/Min Minute Volume Vent Rate Vent Mode FiO2 Tidal Volume PEEP Peak Inspir Pressure Pressure Support Sodium Potassium Chloride Carbon Dioxide Anion Gap BUN Creatinine Estim Creat Clear Calc Estimated GFR Glucose POC Capillary Glucose 154 H Lactic Acid 3.1 H Calcium Phosphorus Magnesium Total Creatine Kinase Hep Bs Antigen Negative Hep Bs Antibody Positive 05/28/24 05/28/24 05/28/24 12:11 12:59 14:02 PT INR APTT Puncture Site ABG pH ABG pCO2 ABG pO2 ABG PO2/FiO2 Ratio ABG HCO3 ABG O2 Saturation ABG O2 Content ABG Base Excess A-a Gradient Oxyhemoglobin Total Hemoglobin O2 Delivery Device O2 Liters/Min Minute Volume Vent Rate Vent Mode FiO2 Tidal Volume PEEP Peak Inspir Pressure Pressure Support Sodium Potassium Chloride Carbon Dioxide Anion Gap BUN Creatinine Estim Creat Clear Calc Estimated GFR Glucose POC Capillary Glucose 144 H 155 H 145 H Lactic Acid Calcium Phosphorus Magnesium Total Creatine Kinase Hep Bs Antigen Hep Bs Antibody 05/28/24 05/28/24 05/28/24 15:10 16:06 16:07 PT 16.7 H INR 1.3 APTT 42.3 H Puncture Site ABG pH ABG pCO2 ABG pO2 ABG PO2/FiO2 Ratio ABG HCO3 ABG O2 Saturation ABG O2 Content ABG Base Excess A-a Gradient Oxyhemoglobin Total Hemoglobin O2 Delivery Device O2 Liters/Min Minute Volume Vent Rate Vent Mode FiO2 Tidal Volume PEEP Peak Inspir Pressure Pressure Support Sodium 136 L Potassium 3.8 Chloride 95 L Carbon Dioxide 26 Anion Gap 15 H BUN 36 H Creatinine 6.78 H Estim Creat Clear Calc 7 Estimated GFR 6 L Glucose 177 H POC Capillary Glucose 146 H 174 H Lactic Acid 2.9 H Calcium 9.0 Phosphorus 5.9 H Magnesium 2.2 Total Creatine Kinase 596 H Hep Bs Antigen Hep Bs Antibody 05/28/24 05/28/24 05/28/24 17:03 18:04 20:49 PT INR APTT Puncture Site ABG pH ABG pCO2 ABG pO2 ABG PO2/FiO2 Ratio ABG HCO3 ABG O2 Saturation ABG O2 Content ABG Base Excess A-a Gradient Oxyhemoglobin Total Hemoglobin O2 Delivery Device O2 Liters/Min Minute Volume Vent Rate Vent Mode FiO2 Tidal Volume PEEP Peak Inspir Pressure Pressure Support Sodium Potassium Chloride Carbon Dioxide Anion Gap BUN Creatinine Estim Creat Clear Calc Estimated GFR Glucose POC Capillary Glucose 171 H 162 H 157 H Lactic Acid Calcium Phosphorus Magnesium Total Creatine Kinase Hep Bs Antigen Hep Bs Antibody 05/28/24 05/28/24 05/28/24 20:55 22:39 23:47 PT INR APTT Puncture Site ABG pH ABG pCO2 ABG pO2 ABG PO2/FiO2 Ratio ABG HCO3 ABG O2 Saturation ABG O2 Content ABG Base Excess A-a Gradient Oxyhemoglobin Total Hemoglobin O2 Delivery Device O2 Liters/Min Minute Volume Vent Rate Vent Mode FiO2 Tidal Volume PEEP Peak Inspir Pressure Pressure Support Sodium Potassium Chloride Carbon Dioxide Anion Gap BUN Creatinine Estim Creat Clear Calc Estimated GFR Glucose POC Capillary Glucose 159 H 160 H Lactic Acid 3.1 H Calcium Phosphorus Magnesium Total Creatine Kinase 463 H Hep Bs Antigen Hep Bs Antibody 05/28/24 05/29/24 05/29/24 23:50 04:49 06:37 PT INR APTT Puncture Site Right radial ABG pH 7.502 H* ABG pCO2 30.7 L ABG pO2 111.8 H ABG PO2/FiO2 Ratio 3.73 ABG HCO3 23.5 ABG O2 Saturation 98.5 ABG O2 Content 13.3 L ABG Base Excess 0.8 A-a Gradient 66.0 Oxyhemoglobin 97.4 Total Hemoglobin 9.6 L O2 Delivery Device Ventilator O2 Liters/Min Not Reportable Minute Volume Not Reportable Vent Rate 20 Vent Mode Cmv FiO2 30 Tidal Volume 420 PEEP 10 Peak Inspir Pressure Not Reportable Pressure Support Not Reportable Sodium Potassium Chloride Carbon Dioxide Anion Gap BUN Creatinine Estim Creat Clear Calc Estimated GFR Glucose POC Capillary Glucose 156 H Lactic Acid 3.2 H Calcium Phosphorus Magnesium Total Creatine Kinase Hep Bs Antigen Hep Bs Antibody 05/29/24 06:43 PT INR APTT Puncture Site ABG pH ABG pCO2 ABG pO2 ABG PO2/FiO2 Ratio ABG HCO3 ABG O2 Saturation ABG O2 Content ABG Base Excess A-a Gradient Oxyhemoglobin Total Hemoglobin O2 Delivery Device O2 Liters/Min Minute Volume Vent Rate Vent Mode FiO2 Tidal Volume PEEP Peak Inspir Pressure Pressure Support Sodium 133 L Potassium 3.8 Chloride 93 L Carbon Dioxide 25 Anion Gap 15 H BUN 38 H Creatinine 7.27 H Estim Creat Clear Calc 6 Estimated GFR 6 L Glucose 167 H POC Capillary Glucose Lactic Acid 2.0 Calcium 8.5 Phosphorus 5.7 H Magnesium 2.1 Total Creatine Kinase 286 H Hep Bs Antigen Hep Bs Antibody Quality VTE Prophylaxis VTE prophylaxis: pharmacologic ordered
[2024-05-29 10:00] LABS: Glucose Point of Care 195 mg/dl (65-105)
--- NOTE | 2024-05-29 10:11 | P.OP_ITS ---
Procedure Note - Detailed Date of Procedure 05/29/24 Pre-op Diagnosis Right pneumothorax Post-op Diagnosis Same Procedure Performed placement of 20 [place] right chest tube Surgeon Rema Nelson MD Anesthesia General Indications 68-year-old female with multiple medical issues, including recent respiratory and cardiovascular arrest, presenting with right-sided pneumothorax. Pt currently on positive pressure ventilation. Findings right pneumothorax Description of Procedure Patient was placed in the supine position and consent was obtained. I began by localizing the right chest at the area of our anticipated incision, at the level of the nipple and anterior axillary line. I then prepped and draped the area. A time-out was done to verify the patient's identity, as well as the procedure being performed. I then made an incision with a 15 blade scalpel at the level the nipple and anterior axillary. This incision was carried down to the chest cavity. I then used a [place] clamp to gain access into the chest at the 4th intercostal space. Immediately upon getting into the chest a large christensen of air was evacuated. I then placed a 20 [place] chest tube directing this posterior and superior. I then sutured the chest tube in place. Vaseline gauze and sterile dressing were applied and the chest tube was connected to the atrium device. The patient tolerated the procedure well. Implants right-sided 20 [place] chest tube Estimated Blood Loss 5 Drains No Packing No Pathology None sent Complications No immediate complications Condition Critical Disposition ICU [facility] Billing Surgery - Charge Forward: Surgery Billing
[2024-05-29 10:23] LABS: Hematocrit 26.3 % (37.0-47.0); Hemoglobin 7.9 g/dL (12.0-15.0); Mean Corpuscular Hemoglobin 26.2 pg (26-34); Mean Corpuscular Volume 87.1 fl (80-100); Mean Platelet Volume 9.9 fl (7.4-10.4); Platelet Count Result 255 k/mm3 (150-375); Red Blood Count 3.02 M/mm3 (4.2-5.4); Red Cell Distribution Width 17.4 % (11.5-14.5); White Blood Count 17.6 K/mm3 (4.5-10.0)
--- NOTE | 2024-05-29 10:38 | PCFNICU ---
ICU Rounding Note: Pt current nutrition is Nepro at 20 ml/hr. Nutrition recommendation: Goal rate at 30 ml/hr. Last recorded weight is 72.1 kg, stable Bowel Motility: Last reported BM 05/26 Labs Reviewed: PO4 5.7, Glu 167, BUN 38, Cr 7.21, Na 133, Alb 3.2 Meds Noted: Keppra, Protonix, Versed, Propofol 8.69 ml/az=569 kcal Skin: WNL Additional Notes: Patient remains on mechanical vent. Technical Support Professional would like to start nutrition today. Orders for Nepro at 20 ml/hr, goal rate at 30 ml/hr today. Total Nutrition: 1417 kcal/53 gm protein/ 480 ml water. Flush 30 ml q 4 hours. Following daily in ICU rounds. Will monitor, weight , labs, skin, diet orders, meds every Monday and Monday.
[2024-05-29 11:00] LABS: Alanine Aminotransferase 126 U/L (6-35); Alkaline Phosphatase 149 U/L (38-126); Anion Gap 14 mmol/L (4-12); Aspartate Amino Transferase 151 U/L (14-36); Bilirubin,Total 0.5 mg/dL (0.2-1.3); Blood Urea Nitrogen 39 mg/dL (7-17); Calcium 8.5 mg/dL (8.4-10.2); Carbon Dioxide 26 mmol/L (22-30); Chloride 93 mmol/L (98-107); Creatine Kinase 279 U/L (30-135); Estimated CRCL calculation 6 ml/min; Estimated Glomerular Filt Rate 5; Glucose 186 mg/dL (65-110); Potassium 4.1 mmol/L (3.4-5.0); Sodium 133 mmol/L (137-145)
--- NOTE | 2024-05-29 11:03 | P.PNCA_ITS ---
Progress Note: A&P Assessment and Plan (1) Cardiac arrest with ventricular fibrillation: Code(s): I46.9 - Cardiac arrest, cause unspecified; I49.01 - Ventricular fibrillation Status: Acute Plan 68-year-old woman with ESRD on HD, congestive heart failure (LVEF 30-35%), paroxysmal atrial fibrillation status post Watchman now on dual anti-platelet therapy, diabetes, and LENORA was in her car with her family after completing hemod ialysis when she suddenly went into cardiac arrest Cardiac arrest - Her post-ROSC EKG showed atrial fibrillation with baseline left bundle-branch block similar to previous EKGs - Echocardiogram shows LVEF 20-25%, severely enlarged LA, moderate , mild- moderate MR, mild TR - Continue supportive care however with a down time of 1 hour and a presenting lactate of 11, prognosis is likely poor -continue amiodarone for now. She is however still on propofol. Weaning sedation. 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 Ann with [facility]. Pneumothorax: Chest tube management per ICU/surgery 2 sisters at bedside. Questions answered and clinical status discussed including the gravity and severity of the patient's situation. They verbalized understanding but remain hopeful Subjective Date/time seen: 05/29/24 11:03 Interval history: Reason for visit: Cardiac arrest HPI: 68-year-old woman with ESRD on HD, congestive heart failure (LVEF 30-35%), paroxysmal atrial fibrillation status post Watchman now on dual anti-platelet therapy, diabetes, and LENORA was in her car with her family after completing hemodialysis when she suddenly went into cardiac arrest. Upon EMS CPR was initiated and patient continued to have compressions upon arrival in the emergency room. She has been having ventricular fibrillation rhythm throughout her code with 1 episode of PEA. She also received bolus doses of amiodarone. Her total time down was about an hour. She was previously functionally independent per documentation from previous admissions. Currently she is intubated and sedated without any pressor requirements. Date of service 05/29/24: Clean protocol completed and we warmed as of yesterday evening. She was found to have a pneumothorax and chest tube inserted. On propofol but weaning other sedating medications. Still on pressors and amiodarone. Family at bedside. Patient currently unresponsive to verbal or painful stimuli Review of Systems Review of Systems: ROS unobtainable: Yes unobtainable due to endotracheal tube and unobtainable due to medical condition Exam Narrative: Intubated, sedated. Appears stated age Const: Other: Critically ill female, on multiple drips HENMT: Face/Nose/Sinus: Normal nares present Other: OETT in place Eyes: Sclera: sclerae normal Neck: Neck: no JVD Resp: Other: On mechanical ventilation. Chest tube in place Cardio: Rate: regular rate Rhythm: regular rhythm Heart sounds: Murmur heart sound present Other: 1-2/6 systolic ejection murmur GI: Inspection: non-distended Skin: General skin exam: normal color Neuro: Other: Sedated/unresponsive Extrem: General: no edema Psych: Mental Status: mental status grossly abnormal Objective Data Vital Signs Vital Signs: Vital Signs - 24 hr 05/28/24 11:28 05/28/24 11:37 05/28/24 11:37 Temperature Pulse Rate 75 73 73 Respiratory Rate 20 20 Blood Pressure Pulse Oximetry 100 Oxygen Delivery Mechanical Ventilation Fraction of Inspired Oxygen 50 05/28/24 12:00 05/28/24 12:00 05/28/24 12:00 Temperature 36.2 C L Pulse Rate 75 79 79 Respiratory Rate 20 16 Blood Pressure 118/95 H 118/95 H Pulse Oximetry 100 100 Oxygen Delivery Mechanical Ventilation Fraction of Inspired Oxygen 50 05/28/24 12:00 05/28/24 12:00 05/28/24 12:00 Temperature Pulse Rate 83 72 Respiratory Rate 20 Blood Pressure 118/95 H Pulse Oximetry Oxygen Delivery Fraction of Inspired Oxygen 50 05/28/24 12:00 05/28/24 12:00 05/28/24 12:00 Temperature Pulse Rate 75 76 72 Respiratory Rate 20 20 Blood Pressure 117/86 Pulse Oximetry Oxygen Delivery Fraction of Inspired Oxygen 05/28/24 13:00 05/28/24 13:00 05/28/24 13:05 Temperature 36.2 C L Pulse Rate 76 78 80 Respiratory Rate 20 Blood Pressure 86/74 L 90/70 L 99/78 L Pulse Oximetry 100 Oxygen Delivery Fraction of Inspired Oxygen 05/28/24 13:30 05/28/24 14:00 05/28/24 14:00 Temperature 36.4 C L Pulse Rate 81 100 80 Respiratory Rate 20 Blood Pressure 99/68 L 104/73 Pulse Oximetry 70 L 100 Oxygen Delivery Mechanical Ventilation Fraction of Inspired Oxygen 50 05/28/24 14:00 05/28/24 14:00 05/28/24 14:00 Temperature Pulse Rate 76 71 64 Respiratory Rate 20 Blood Pressure 102/72 102/72 Pulse Oximetry Oxygen Delivery Fraction of Inspired Oxygen 05/28/24 14:00 05/28/24 14:00 05/28/24 14:00 Temperature Pulse Rate 81 80 74 Respiratory Rate 20 20 Blood Pressure 111/79 Pulse Oximetry Oxygen Delivery Fraction of Inspired Oxygen 05/28/24 15:00 05/28/24 16:00 05/28/24 16:00 Temperature 36.0 C L Pulse Rate 74 75 75 Respiratory Rate 20 20 Blood Pressure 116/84 111/81 Pulse Oximetry 100 Oxygen Delivery Fraction of Inspired Oxygen 05/28/24 16:00 05/28/24 16:00 05/28/24 16:00 Temperature Pulse Rate 75 75 75 Respiratory Rate 20 20 Blood Pressure 111/81 111/81 Pulse Oximetry Oxygen Delivery Fraction of Inspired Oxygen 05/28/24 16:00 05/28/24 16:00 05/28/24 16:00 Temperature 35.9 C L Pulse Rate 75 75 Respiratory Rate 20 Blood Pressure 111/81 Pulse Oximetry 100 Oxygen Delivery Fraction of Inspired Oxygen 50 05/28/24 16:00 05/28/24 16:50 05/28/24 16:53 Temperature Pulse Rate 75 100 75 Respiratory Rate 20 Blood Pressure 95/68 L Pulse Oximetry 100 79 L Oxygen Delivery Mechanical Ventilation Mechanical Ventilation Fraction of Inspired Oxygen 50 50 05/28/24 16:53 05/28/24 17:00 05/28/24 17:40 Temperature 36.2 C L Pulse Rate 75 89 78 Respiratory Rate 20 20 Blood Pressure 95/68 L 104/72 114/87 Pulse Oximetry 100 Oxygen Delivery Fraction of Inspired Oxygen 05/28/24 18:00 05/28/24 18:00 05/28/24 18:00 Temperature Pulse Rate 72 76 76 Respiratory Rate 20 20 Blood Pressure 114/87 Pulse Oximetry Oxygen Delivery Fraction of Inspired Oxygen 05/28/24 18:00 05/28/24 18:00 05/28/24 18:00 Temperature 36.2 C L Pulse Rate 76 89 75 Respiratory Rate 20 Blood Pressure 114/87 100/73 Pulse Oximetry 100 Oxygen Delivery Fraction of Inspired Oxygen 05/28/24 18:09 05/28/24 18:30 05/28/24 19:00 Temperature 36.0 C L Pulse Rate 78 75 73 Respiratory Rate 20 20 Blood Pressure 114/87 131/76 109/75 Pulse Oximetry 100 Oxygen Delivery Fraction of Inspired Oxygen 05/28/24 20:00 05/28/24 20:00 05/28/24 20:00 Temperature Pulse Rate 80 80 80 Respiratory Rate 20 20 Blood Pressure 100/75 100/75 Pulse Oximetry Oxygen Delivery Fraction of Inspired Oxygen 05/28/24 20:00 05/28/24 20:00 05/28/24 20:00 Temperature 36.0 C L Pulse Rate 80 80 108 H Respiratory Rate 20 20 Blood Pressure 100/75 88/70 L Pulse Oximetry 100 Oxygen Delivery Fraction of Inspired Oxygen 05/28/24 20:00 05/28/24 20:00 05/28/24 20:00 Temperature Pulse Rate 83 Respiratory Rate Blood Pressure Pulse Oximetry 100 Oxygen Delivery Mechanical Ventilation Fraction of Inspired Oxygen 50 50 05/28/24 20:42 05/28/24 20:42 05/28/24 21:00 Temperature 36.4 C L Pulse Rate 81 81 83 Respiratory Rate 20 20 20 Blood Pressure 106/86 Pulse Oximetry 100 Oxygen Delivery Fraction of Inspired Oxygen 05/28/24 21:11 05/28/24 21:15 05/28/24 22:00 Temperature Pulse Rate 85 90 82 Respiratory Rate Blood Pressure 106/86 112/70 Pulse Oximetry 100 Oxygen Delivery Mechanical Ventilation Fraction of Inspired Oxygen 50 05/28/24 22:00 05/28/24 22:00 05/28/24 22:00 Temperature Pulse Rate 82 82 82 Respiratory Rate 20 20 Blood Pressure 112/70 112/70 Pulse Oximetry Oxygen Delivery Fraction of Inspired Oxygen 05/28/24 22:00 05/28/24 22:00 05/28/24 22:00 Temperature 36.5 C Pulse Rate 82 82 82 Respiratory Rate 20 20 Blood Pressure 112/70 Pulse Oximetry 100 Oxygen Delivery Fraction of Inspired Oxygen 05/28/24 22:30 05/28/24 23:00 05/28/24 23:15 Temperature 36.5 C 37.0 C Pulse Rate 88 89 87 Respiratory Rate 20 20 Blood Pressure 103/77 98/66 L Pulse Oximetry 100 100 100 Oxygen Delivery Mechanical Ventilation Fraction of Inspired Oxygen 40 05/28/24 23:45 05/29/24 00:00 05/29/24 00:00 Temperature 37.0 C Pulse Rate 94 Respiratory Rate Blood Pressure 101/77 Pulse Oximetry Oxygen Delivery Fraction of Inspired Oxygen 40 05/29/24 00:00 05/29/24 00:00 05/29/24 00:00 Temperature 37.1 C Pulse Rate 93 93 93 Respiratory Rate 20 20 Blood Pressure 101/77 101/77 101/77 Pulse Oximetry 100 Oxygen Delivery Fraction of Inspired Oxygen 05/29/24 00:00 05/29/24 00:00 05/29/24 00:00 Temperature Pulse Rate 93 93 91 Respiratory Rate 20 20 Blood Pressure Pulse Oximetry Oxygen Delivery Fraction of Inspired Oxygen 05/29/24 00:00 05/29/24 00:44 05/29/24 00:44 Temperature Pulse Rate 92 92 Respiratory Rate Blood Pressure 85/55 L 85/55 L Pulse Oximetry 100 Oxygen Delivery Mechanical Ventilation Fraction of Inspired Oxygen 40 05/29/24 02:00 05/29/24 02:00 05/29/24 02:00 Temperature 37.4 C Pulse Rate 88 88 100 Respiratory Rate 20 20 Blood Pressure 102/64 102/64 102/64 Pulse Oximetry 100 Oxygen Delivery Fraction of Inspired Oxygen 05/29/24 02:00 05/29/24 02:00 05/29/24 02:00 Temperature Pulse Rate 88 88 88 Respiratory Rate 20 20 Blood Pressure 102/64 Pulse Oximetry Oxygen Delivery Fraction of Inspired Oxygen 05/29/24 02:00 05/29/24 02:10 05/29/24 02:30 Temperature Pulse Rate 88 83 88 Respiratory Rate Blood Pressure 84/66 L Pulse Oximetry 100 Oxygen Delivery Mechanical Ventilation Fraction of Inspired Oxygen 35 05/29/24 03:16 05/29/24 04:00 05/29/24 04:00 Temperature 37.4 C Pulse Rate 99 99 Respiratory Rate 20 Blood Pressure 97/83 L Pulse Oximetry 100 100 Oxygen Delivery Mechanical Ventilation Fraction of Inspired Oxygen 40 05/29/24 04:00 05/29/24 04:00 05/29/24 04:00 Temperature Pulse Rate 100 94 94 Respiratory Rate 20 Blood Pressure 97/83 L 97/83 L 97/83 L Pulse Oximetry Oxygen Delivery Fraction of Inspired Oxygen 05/29/24 04:00 05/29/24 04:00 05/29/24 05:34 Temperature Pulse Rate 94 94 95 Respiratory Rate 20 20 Blood Pressure Pulse Oximetry 100 Oxygen Delivery Mechanical Ventilation Fraction of Inspired Oxygen 30 05/29/24 06:00 05/29/24 06:00 05/29/24 06:00 Temperature 37.4 C Pulse Rate 95 95 100 Respiratory Rate 20 20 Blood Pressure 90/64 L 90/64 L Pulse Oximetry 100 Oxygen Delivery Fraction of Inspired Oxygen 05/29/24 06:00 05/29/24 06:00 05/29/24 06:00 Temperature Pulse Rate 95 95 95 Respiratory Rate 20 Blood Pressure 90/64 L 90/64 L Pulse Oximetry Oxygen Delivery Fraction of Inspired Oxygen 05/29/24 06:00 05/29/24 06:15 05/29/24 06:45 Temperature Pulse Rate 95 94 97 Respiratory Rate 20 20 Blood Pressure 71/57 L 117/78 Pulse Oximetry Oxygen Delivery Fraction of Inspired Oxygen 05/29/24 06:45 05/29/24 07:00 05/29/24 07:15 Temperature 37.4 C 37.4 C Pulse Rate 97 100 96 Respiratory Rate 20 18 18 Blood Pressure 117/78 105/73 81/54 L Pulse Oximetry 96 96 Oxygen Delivery Fraction of Inspired Oxygen 05/29/24 07:30 05/29/24 07:45 05/29/24 08:00 Temperature 37.3 C 37.3 C Pulse Rate 94 93 91 Respiratory Rate 18 18 18 Blood Pressure 87/69 L 86/63 L Pulse Oximetry 96 96 98 Oxygen Delivery Mechanical Ventilation Fraction of Inspired Oxygen 30 05/29/24 08:00 05/29/24 08:00 05/29/24 08:00 Temperature 37.1 C Pulse Rate 92 92 Respiratory Rate 18 Blood Pressure 89/74 L Pulse Oximetry 97 Oxygen Delivery Fraction of Inspired Oxygen 30 05/29/24 08:02 05/29/24 08:05 05/29/24 08:05 Temperature Pulse Rate 92 97 97 Respiratory Rate 18 18 Blood Pressure 89/74 L Pulse Oximetry Oxygen Delivery Fraction of Inspired Oxygen 05/29/24 08:06 05/29/24 08:06 05/29/24 08:16 Temperature Pulse Rate 97 97 93 Respiratory Rate Blood Pressure 89/74 L 89/74 L 100/74 Pulse Oximetry Oxygen Delivery Fraction of Inspired Oxygen 05/29/24 08:16 05/29/24 09:05 05/29/24 09:07 Temperature Pulse Rate 93 86 85 Respiratory Rate 24 H Blood Pressure 100/74 135/82 Pulse Oximetry Oxygen Delivery Fraction of Inspired Oxygen 05/29/24 09:09 05/29/24 09:10 05/29/24 09:11 Temperature Pulse Rate 84 86 91 Respiratory Rate 30 H Blood Pressure 135/82 135/82 Pulse Oximetry Oxygen Delivery Fraction of Inspired Oxygen 05/29/24 09:46 05/29/24 10:00 05/29/24 10:00 Temperature 37.2 C Pulse Rate 91 89 92 Respiratory Rate 18 Blood Pressure 141/86 H Pulse Oximetry 98 100 Oxygen Delivery Mechanical Ventilation Fraction of Inspired Oxygen 30 05/29/24 10:03 05/29/24 10:05 Temperature Pulse Rate 91 91 Respiratory Rate 18 18 Blood Pressure 141/86 H Pulse Oximetry Oxygen Delivery Fraction of Inspired Oxygen Intake/Output Intake/Output: Intake & Output 05/26/24 05/27/24 05/28/24 05/29/24 23:59 23:59 23:59 23:59 Intake Total 946.7 1986.4 889.5 Output Total 0 400 0 Balance 946.7 1586.4 889.5 Meds/Results Medications: Active Medications Generic Name Dose Route Start Last Admin Trade Name Freq PRN Reason Stop Dose Admin Albuterol/Ipratropium 3 ml 05/27/24 15:02 05/28/24 21:10 Ipratropium 0.5 Mg/Albuterol Sulfate 2.5 Mg Ampul.Neb 3 Ml INHALATION 3 ml Q6HRT PRN Administration Wheezing Aspirin 325 mg 05/28/24 08:00 05/28/24 07:55 Aspirin 325 Mg Tablet FEED TUBE 325 mg DAILY@0800 [facility] Administration Clopidogrel Bisulfate 75 mg 05/28/24 09:00 05/28/24 07:55 Clopidogrel Bisulfate 75 Mg Tablet FEED TUBE 75 mg QAM JAZMIN Administration Dextrose 12.5 gm 05/27/24 14:50 Dextrose 50% 25 Gm/50 Ml Syringe IV PUSH PRN PRN Hypoglycemia Protocol Enoxaparin Sodium 30 mg 05/28/24 09:00 05/28/24 07:56 Enoxaparin 30 Mg/0.3 Ml Syringe SUB-Q 30 mg DAILY JAZMIN Administration Epoetin Daniele-epbx 10,000 units 05/29/24 18:26 Epoetin Daniele-Epbx 10,000 Units/Ml Vial IV PUSH 05/29/24 18:27 ONCE ONE Glucagon 1 mg 05/27/24 14:50 Glucagon For Inj 1 Mg Vial IM PRN PRN Hypoglycemia Protocol Glucose 15 gm 05/27/24 14:50 Glucose Oral Gel 15 Gm Of Glucse In 37.5 Gm Tube PO PRN PRN Hypoglycemia Protocol Fentanyl Citrate 2,500 mcg in 250 mls @ 0 mls/hr 05/27/24 14:50 05/29/24 10:05 Fentanyl 2,500 Mcg/Ns 250 Ml IV CONT 0 mcg/hr .Q0M JAZMIN 0 mls/hr Titration Protocol Propofol 100 mls @ 8.688 mls/hr 05/27/24 14:50 05/29/24 09:10 Diprivan IV CONT 20 mcg/kg/min .[id number] JAZMIN 8.69 mls/hr Titration Protocol 20 MCG/KG/MIN Dextrose 1,000 mls @ 100 mls/hr 05/27/24 14:50 Dextrose 5% 1,000 Ml IVPB PRN PRN Hypoglycemia Protocol Levetiracetam 500 mg in 100 mls @ 400 mls/hr 05/27/24 21:00 05/28/24 22:15 Keppra Iv IVPB Infused Q12HR JAZMIN Infusion Metronidazole 500 mg in 100 mls @ 100 mls/hr 05/28/24 04:00 05/29/24 04:00 Flagyl 500 Mg/Iso Soln 100 Ml IVPB Infused Q8H JAZMIN Infusion Norepinephrine Bitartrate 8 mg in 250 mls @ 41.25 mls/hr 05/28/24 05:20 05/29/24 09:05 Levophed 8 Mg/D5w 250 Ml IV CONT 22 mcg/min .Q6H4M JAZMIN 41.25 mls/hr Titration Protocol 22 MCG/MIN Cefepime HCl 1 gm in 50 mls @ 100 mls/hr 05/28/24 18:00 05/28/24 19:00 Maxipime 1 Gm/Ns 50 Ml IVPB Infused DAILY@1800 JAZMIN Infusion Amiodarone HCl/Dextrose 360 mg in 200 mls @ 16.667 mls/hr 05/28/24 21:30 05/29/24 09:11 Nexterone 360 Mg/D5w 200 Ml IV CONT 06/19/24 15:29 0.5 mg/min .Q12H JAZMIN 16.67 mls/hr Infusion Protocol 0.5 MG/MIN Albumin Human 50 mls @ 999 mls/hr 05/29/24 06:26 Albutein IVPB 06/28/24 06:25 Q10M PRN HYPOTENSION Vasopressin 100 units/ 100 mls @ 2.4 mls/hr 05/29/24 07:45 05/29/24 09:09 Dextrose IV CONT 0.04 units/min .[id number] JAZMIN 2.4 mls/hr Titration Protocol 0.04 UNITS/MIN Insulin Aspart 3 - 6 units 05/28/24 00:00 05/29/24 08:11 Insulin Aspart (*Bkc) 100 Units/Ml SUB-Q Not Given Q4HR AJZMIN Protocol Multi-Ingred Cream/Lotion/Oil/Oint 1 applic 05/27/24 21:00 05/28/24 20:48 Mineral Oil/White Petrolatum Ointment EACH EYE 1 applic Q12HR JAZMIN Administration Ondansetron HCl 4 mg 05/27/24 14:13 Ondansetron Inj 4 Mg/2 Ml Vial IV PUSH Q4H PRN Nausea Pantoprazole Sodium 40 mg 05/28/24 09:00 05/28/24 07:56 Pantoprazole Sodium Iv 40 Mg Vial IV PUSH 40 mg DAILY JAZMIN Administration Sodium Chloride 10 ml 05/28/24 14:00 05/29/24 08:11 Central Line Flush IV PUSH 10 ml Q8HR JAZMIN Administration Sodium Chloride 20 ml 05/28/24 10:09 Central Line Flush IV PUSH PRN PRN after blood draws Radiology Results: ITS Impressions Abdomen X-Ray 05/27/24 13:15 IMPRESSION: 1: NG tube tip in the stomach. Chest/Abdomen/Pelvis CTA 05/27/24 14:18 IMPRESSION: 1. Diffuse bilateral lung disease with most dense consolidation in the dependent right lower lobe. Would favor multifocal pneumonia over pulmonary edema. 2. Radiographically uncomplicated distal descending colon diverticulitis. 3. Endotracheal tube tip at the entrance to the left mainstem bronchus. Recommend withdrawal by 3 cm. This and the above 2 findings were discussed with Dr. Gordon at 2:30 PM. 4. Cardiomegaly with left heart predominance. 5. Enlargement of the central pulmonary arteries consistent with pulmonary arterial hypertension. No evident pulmonary embolism. 5. Small sliding-type hiatal hernia. 6. Severe bilateral renal atrophy. 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 Head CT 05/29/24 08:36 Impression: No acute abnormality seen. Chest CT 05/29/24 08:38 Impression: [id number] right pneumothorax. Bibasilar consolidation with scattered hyperdense material the lungs is compatible with aspiration pneumonia and/or bibasilar atelectasis. Correlate clinically. Minimal pleural fluid bilaterally. Chest X-Ray 05/29/24 10:13 IMPRESSION: 1. No residual right pneumothorax post right chest tube placement. 2. Persistent opacities in bilateral mid and lower lung zones which could represent atelectasis and/or pneumonia. 3. Cardiomegaly. Labs Labs: Laboratory Results - last 24 hr 05/28/24 05/28/24 05/28/24 11:36 12:11 12:59 WBC RBC Hgb Hct MCV MCH MCHC RDW Plt Count MPV PT INR APTT Puncture Site ABG pH ABG pCO2 ABG pO2 ABG PO2/FiO2 Ratio ABG HCO3 ABG O2 Saturation ABG O2 Content ABG Base Excess A-a Gradient Oxyhemoglobin Total Hemoglobin O2 Delivery Device O2 Liters/Min Minute Volume Vent Rate Vent Mode FiO2 Tidal Volume PEEP Peak Inspir Pressure Pressure Support Sodium Potassium Chloride Carbon Dioxide Anion Gap BUN Creatinine Estim Creat Clear Calc Estimated GFR Glucose POC Capillary Glucose 144 H 155 H Lactic Acid 3.1 H Calcium Phosphorus Magnesium Total Bilirubin AST ALT Alkaline Phosphatase Total Creatine Kinase Total Protein Albumin 05/28/24 05/28/24 05/28/24 14:02 15:10 16:06 WBC RBC Hgb Hct MCV MCH MCHC RDW Plt Count MPV PT 16.7 H INR 1.3 APTT 42.3 H Puncture Site ABG pH ABG pCO2 ABG pO2 ABG PO2/FiO2 Ratio ABG HCO3 ABG O2 Saturation ABG O2 Content ABG Base Excess A-a Gradient Oxyhemoglobin Total Hemoglobin O2 Delivery Device O2 Liters/Min Minute Volume Vent Rate Vent Mode FiO2 Tidal Volume PEEP Peak Inspir Pressure Pressure Support Sodium 136 L Potassium 3.8 Chloride 95 L Carbon Dioxide 26 Anion Gap 15 H BUN 36 H Creatinine 6.78 H Estim Creat Clear Calc 7 Estimated GFR 6 L Glucose 177 H POC Capillary Glucose 145 H 146 H Lactic Acid 2.9 H Calcium 9.0 Phosphorus 5.9 H Magnesium 2.2 Total Bilirubin AST ALT Alkaline Phosphatase Total Creatine Kinase 596 H Total Protein Albumin 05/28/24 05/28/24 05/28/24 16:07 17:03 18:04 WBC RBC Hgb Hct MCV MCH MCHC RDW Plt Count MPV PT INR APTT Puncture Site ABG pH ABG pCO2 ABG pO2 ABG PO2/FiO2 Ratio ABG HCO3 ABG O2 Saturation ABG O2 Content ABG Base Excess A-a Gradient Oxyhemoglobin Total Hemoglobin O2 Delivery Device O2 Liters/Min Minute Volume Vent Rate Vent Mode FiO2 Tidal Volume PEEP Peak Inspir Pressure Pressure Support Sodium Potassium Chloride Carbon Dioxide Anion Gap BUN Creatinine Estim Creat Clear Calc Estimated GFR Glucose POC Capillary Glucose 174 H 171 H 162 H Lactic Acid Calcium Phosphorus Magnesium Total Bilirubin AST ALT Alkaline Phosphatase Total Creatine Kinase Total Protein Albumin 05/28/24 05/28/24 05/28/24 20:49 20:55 22:39 WBC RBC Hgb Hct MCV MCH MCHC RDW Plt Count MPV PT INR APTT Puncture Site ABG pH ABG pCO2 ABG pO2 ABG PO2/FiO2 Ratio ABG HCO3 ABG O2 Saturation ABG O2 Content ABG Base Excess A-a Gradient Oxyhemoglobin Total Hemoglobin O2 Delivery Device O2 Liters/Min Minute Volume Vent Rate Vent Mode FiO2 Tidal Volume PEEP Peak Inspir Pressure Pressure Support Sodium Potassium Chloride Carbon Dioxide Anion Gap BUN Creatinine Estim Creat Clear Calc Estimated GFR Glucose POC Capillary Glucose 157 H 159 H Lactic Acid 3.1 H Calcium Phosphorus Magnesium Total Bilirubin AST ALT Alkaline Phosphatase Total Creatine Kinase 463 H Total Protein Albumin 05/28/24 05/28/24 05/29/24 23:47 23:50 04:49 WBC RBC Hgb Hct MCV MCH MCHC RDW Plt Count MPV PT INR APTT Puncture Site Right radial ABG pH 7.502 H* ABG pCO2 30.7 L ABG pO2 111.8 H ABG PO2/FiO2 Ratio 3.73 ABG HCO3 23.5 ABG O2 Saturation 98.5 ABG O2 Content 13.3 L ABG Base Excess 0.8 A-a Gradient 66.0 Oxyhemoglobin 97.4 Total Hemoglobin 9.6 L O2 Delivery Device Ventilator O2 Liters/Min Not Reportable Minute Volume Not Reportable Vent Rate 20 Vent Mode Cmv FiO2 30 Tidal Volume 420 PEEP 10 Peak Inspir Pressure Not Reportable Pressure Support Not Reportable Sodium Potassium Chloride Carbon Dioxide Anion Gap BUN Creatinine Estim Creat Clear Calc Estimated GFR Glucose POC Capillary Glucose 160 H Lactic Acid 3.2 H Calcium Phosphorus Magnesium Total Bilirubin AST ALT Alkaline Phosphatase Total Creatine Kinase Total Protein Albumin 05/29/24 05/29/24 05/29/24 06:37 06:43 09:55 WBC RBC Hgb Hct MCV MCH MCHC RDW Plt Count MPV PT INR APTT Puncture Site ABG pH ABG pCO2 ABG pO2 ABG PO2/FiO2 Ratio ABG HCO3 ABG O2 Saturation ABG O2 Content ABG Base Excess A-a Gradient Oxyhemoglobin Total Hemoglobin O2 Delivery Device O2 Liters/Min Minute Volume Vent Rate Vent Mode FiO2 Tidal Volume PEEP Peak Inspir Pressure Pressure Support Sodium 133 L Potassium 3.8 Chloride 93 L Carbon Dioxide 25 Anion Gap 15 H BUN 38 H Creatinine 7.27 H Estim Creat Clear Calc 6 Estimated GFR 6 L Glucose 167 H POC Capillary Glucose 156 H 195 H Lactic Acid 2.0 Calcium 8.5 Phosphorus 5.7 H Magnesium 2.1 Total Bilirubin AST ALT Alkaline Phosphatase Total Creatine Kinase 286 H Total Protein Albumin 05/29/24 05/29/24 10:00 10:18 WBC 17.6 H RBC 3.02 L Hgb 7.9 L Hct 26.3 L MCV 87.1 MCH 26.2 MCHC 30.0 L RDW 17.4 H Plt Count 255 MPV 9.9 PT INR APTT Puncture Site ABG pH ABG pCO2 ABG pO2 ABG PO2/FiO2 Ratio ABG HCO3 ABG O2 Saturation ABG O2 Content ABG Base Excess A-a Gradient Oxyhemoglobin Total Hemoglobin O2 Delivery Device O2 Liters/Min Minute Volume Vent Rate Vent Mode FiO2 Tidal Volume PEEP Peak Inspir Pressure Pressure Support Sodium 133 L Potassium 4.1 Chloride 93 L Carbon Dioxide 26 Anion Gap 14 H BUN 39 H Creatinine 7.61 H Estim Creat Clear Calc 6 Estimated GFR 5 L Glucose 186 H POC Capillary Glucose Lactic Acid Calcium 8.5 Phosphorus Magnesium Total Bilirubin 0.5 AST 151 H ALT 126 H Alkaline Phosphatase 149 H Total Creatine Kinase 279 H Total Protein 6.0 L Albumin 3.0 L Echo 2. Left ventricular chamber dimension is severely enlarged. 3. Left ventricular systolic function is severely globally reduced, estimated at 20-25%. 4. There is mild concentric increased left ventricular wall thickness. 5. The left ventricular diastolic function is abnormal. 6. E/e' 23 is significantly elevated. 7. Left atrial chamber dimension is severely enlarged. 8. There is severe aortic valve sclerosis. 9. There is moderate aortic valve stenosis with a peak velocity of 155.81 cm/s, mean gradient of 5 mmHg, and aortic valve area of 1.29 cm2. 10. There is mild to moderate mitral valve regurgitation. 11. There is mild tricuspid valve regurgitation. 12. No pulmonary hypertension, estimated pulmonary arterial systolic pressure is 27 mmHg.
[2024-05-29 11:16] LABS: Glucose Point of Care 125 mg/dl (65-105)
[2024-05-29] MEDS: ENOXAPARIN 30 MG/0.3 ML SYRINGE SUB-Q (11:18)
[2024-05-29] MEDS: CLOPIDOGREL BISULFATE 75 MG TABLET FEED TUBE (11:19)
[2024-05-29] MEDS: levETIRAcetam 500MG/NACL 100ML 500 MG/100 ML BAG 400 MG IVPB (11:19)
[2024-05-29] MEDS: ASPIRIN 325 MG TABLET FEED TUBE (11:19)
[2024-05-29] MEDS: MINERAL OIL/WHITE PETROLATUM OINTMENT 1 APPLIC EACH EYE ×2 (11:20→23:53)
[2024-05-29] MEDS: PANTOPRAZOLE SODIUM IV 40 MG VIAL IV PUSH (11:20)
[2024-05-29 12:40] LABS: Glucose Point of Care 187 mg/dl (65-105)
--- NOTE | 2024-05-29 12:51 | P.PNIM_ITS ---
Progress Note: A&P Assessment and Plan (1) Acute respiratory failure with hypoxia: Code(s): J96.01 - Acute respiratory failure with hypoxia Status: Acute Assessment and Plan: Upon EMS CPR was initiated and patient continued to have compressions upon arrival in the emergency room. She has been having ventricular fibrillation rhythm throughout her code with 1 episode of PEA. She also received bolus doses of amiodarone. Her total time down was about an hour. She was previously functionally independent per documentation from previous admissions. Acute Respiratory failure secondary to cardiac arrest, aspiration pneumonia, pulmonary edema, Patient now intubated and on mechanical ventilation Negative flu RSV and COVID PCR. MRSA screen negative BCx NGTD. Sputum growing GPB and yeast. CXR 05/29 showed right-sided PTX CT Chest 05/29 showing a small-moderate right pneumothorax. Also with bibasilar consolidation with scattered hypodense material in the lungs compatible with aspiration pneumonia and and atelectasis Surgery consulted for chest tube placement today. P.r.n. bronchodilators Continue cefepime and Flagyl. Vancomycin discontinued Plan for hemodialysis today to remove fluid if possible (2) Anoxic brain injury: Code(s): G93.1 - Anoxic brain damage, not elsewhere classified Status: Acute Assessment and Plan: Patient has sustained anoxic brain injury secondary to cardiac arrest Patient was on therapeutic hypothermia protocol and now rewarmed. Head CT was negative on presentation and again on 05/29 Will hold Nimbex and sedation today and assess Neurology consulted. EEG ordered Continue Keppra. (3) Cardiac arrest: Code(s): I46.9 - Cardiac arrest, cause unspecified Status: Acute Assessment and Plan: Patient presented with VFib cardiac arrest. She has a background history of nonischemic cardiomyopathy, AFib status post Watchman procedure. She also has elevated troponin. EKG reviewed CTA was negative for PE at the time of presentation She was given amiodarone bolus and started on amiodarone infusion She had 2 episodes of VFib events since hospitalized requiring DC defibrillation Echo done today shows EF of 20-25% and abnormal diastolic dysfunction, moderate and moderate MR Patient was evaluated by Cardiology no further recommendations at this time (4) Non-ischemic cardiomyopathy: Code(s): I42.8 - Other cardiomyopathies Status: Acute Assessment and Plan: As above (5) Combined systolic and diastolic congestive heart failure: Code(s): I50.40 - Unspecified combined systolic (congestive) and diastolic (congestive) heart failure Status: Acute Assessment and Plan: As above (6) Paroxysmal atrial fibrillation: Code(s): I48.0 - Paroxysmal atrial fibrillation Status: Acute Assessment and Plan: Status post Watchman procedure Not on anticoagulation likely secondary to history of GI bleed Aspirin and Plavix continued Amiodarone infusion (7) Hyperlipidemia: Code(s): E78.5 - Hyperlipidemia, unspecified Status: Acute Assessment and Plan: Hold statin due to elevated liver enzyme which are likely secondary to shock liver (8) End-stage renal disease on hemodialysis: Onset Date: 09/2009 Code(s): N18.6 - End stage renal disease; Z99.2 - Dependence on renal dialysis Status: Acute Assessment and Plan: Consult nephrology for hemodialysis HD possibly today (9) Chronic anemia: Code(s): D64.9 - Anemia, unspecified Status: Chronic Assessment and Plan: Monitor hemoglobin. (10) CVA (cerebral vascular accident): Code(s): I63.9 - Cerebral infarction, unspecified Status: Acute Assessment and Plan: Hx of CVA. Continue aspirin Plavix. Hold statin. (11) Aspiration pneumonia: Code(s): J69.0 - Pneumonitis due to inhalation of food and vomit Status: Acute Assessment and Plan: As above (12) Pulmonary edema: Code(s): J81.1 - Chronic pulmonary edema Status: Acute Assessment and Plan: Will need hemodialysis to control fluid status (13) Ventricular fibrillation: Code(s): I49.01 - Ventricular fibrillation Status: Acute Assessment and Plan: As above Plan DVT prophylaxis -Lovenox Stress ulcer prophylaxis -PPI Nutrition -will start tube feeding today Code Status - Full Code Subjective Date/time seen: 05/29/24 12:51 Interval history: 68yo woman with ESRD on HD, congestive heart failure (LVEF 30-35%), pAFib status post Watchman now on dual anti-platelet therapy, diabetes, and LENORA was in her car with her family after completing hemodialysis when she suddenly went into cardiac arrest. Assuming care. Chart reviewed. Patient is intubated, sedated and paralyzed. She had cooling protocol initiated on admission and was re-warmed last evening. Pneumothorax developed by chest x-ray noted this morning Review of Systems Review of Systems: ROS unobtainable: Yes unobtainable due to endotracheal tube Exam Narrative: AF 98.8 148/101 109 19 95% MV Gen -intubated, sedated and paralyzed HEENT -ET tube and OG tube secured. Pupils sluggish Chest -lungs were clear anteriorly. Hemodialysis catheter noted in the right upper chest. CV - RRR S1/S2. Telemetry showing no significant dysrhythmias Abd -soft. Positive bowel sounds. -Hoover catheter secured but no urine in the bag. Ext - No pedal edema. 1+ DP pulses. Neuro -sedated and paralyzed Psych -unable to assess Skin - Warm and dry Objective Data Vital Signs Vital Signs: Vital Signs - 24 hr 05/28/24 13:00 05/28/24 13:00 05/28/24 13:05 Temperature 97.2 F L Pulse Rate 76 78 80 Respiratory Rate 20 Blood Pressure 86/74 L 90/70 L 99/78 L Pulse Oximetry 100 Oxygen Delivery Fraction of Inspired Oxygen 05/28/24 13:30 05/28/24 14:00 05/28/24 14:00 Temperature 97.5 F L Pulse Rate 81 100 80 Respiratory Rate 20 Blood Pressure 99/68 L 104/73 Pulse Oximetry 70 L 100 Oxygen Delivery Mechanical Ventilation Fraction of Inspired Oxygen 50 05/28/24 14:00 05/28/24 14:00 05/28/24 14:00 Temperature Pulse Rate 76 71 64 Respiratory Rate 20 Blood Pressure 102/72 102/72 Pulse Oximetry Oxygen Delivery Fraction of Inspired Oxygen 05/28/24 14:00 05/28/24 14:00 05/28/24 14:00 Temperature Pulse Rate 81 80 74 Respiratory Rate 20 20 Blood Pressure 111/79 Pulse Oximetry Oxygen Delivery Fraction of Inspired Oxygen 05/28/24 15:00 05/28/24 16:00 05/28/24 16:00 Temperature 96.8 F L Pulse Rate 74 75 75 Respiratory Rate 20 20 Blood Pressure 116/84 111/81 Pulse Oximetry 100 Oxygen Delivery Fraction of Inspired Oxygen 05/28/24 16:00 05/28/24 16:00 05/28/24 16:00 Temperature Pulse Rate 75 75 75 Respiratory Rate 20 20 Blood Pressure 111/81 111/81 Pulse Oximetry Oxygen Delivery Fraction of Inspired Oxygen 05/28/24 16:00 05/28/24 16:00 05/28/24 16:00 Temperature 96.6 F L Pulse Rate 75 75 Respiratory Rate 20 Blood Pressure 111/81 Pulse Oximetry 100 Oxygen Delivery Fraction of Inspired Oxygen 50 05/28/24 16:00 05/28/24 16:50 05/28/24 16:53 Temperature Pulse Rate 75 100 75 Respiratory Rate 20 Blood Pressure 95/68 L Pulse Oximetry 100 79 L Oxygen Delivery Mechanical Ventilation Mechanical Ventilation Fraction of Inspired Oxygen 50 50 05/28/24 16:53 05/28/24 17:00 05/28/24 17:40 Temperature 97.2 F L Pulse Rate 75 89 78 Respiratory Rate 20 20 Blood Pressure 95/68 L 104/72 114/87 Pulse Oximetry 100 Oxygen Delivery Fraction of Inspired Oxygen 05/28/24 18:00 05/28/24 18:00 05/28/24 18:00 Temperature Pulse Rate 72 76 76 Respiratory Rate 20 20 Blood Pressure 114/87 Pulse Oximetry Oxygen Delivery Fraction of Inspired Oxygen 05/28/24 18:00 05/28/24 18:00 05/28/24 18:00 Temperature 97.2 F L Pulse Rate 76 89 75 Respiratory Rate 20 Blood Pressure 114/87 100/73 Pulse Oximetry 100 Oxygen Delivery Fraction of Inspired Oxygen 05/28/24 18:09 05/28/24 18:30 05/28/24 19:00 Temperature 96.8 F L Pulse Rate 78 75 73 Respiratory Rate 20 20 Blood Pressure 114/87 131/76 109/75 Pulse Oximetry 100 Oxygen Delivery Fraction of Inspired Oxygen 05/28/24 20:00 05/28/24 20:00 05/28/24 20:00 Temperature Pulse Rate 80 80 80 Respiratory Rate 20 20 Blood Pressure 100/75 100/75 Pulse Oximetry Oxygen Delivery Fraction of Inspired Oxygen 05/28/24 20:00 05/28/24 20:00 05/28/24 20:00 Temperature 96.8 F L Pulse Rate 80 80 108 H Respiratory Rate 20 20 Blood Pressure 100/75 88/70 L Pulse Oximetry 100 Oxygen Delivery Fraction of Inspired Oxygen 05/28/24 20:00 05/28/24 20:00 05/28/24 20:00 Temperature Pulse Rate 83 Respiratory Rate Blood Pressure Pulse Oximetry 100 Oxygen Delivery Mechanical Ventilation Fraction of Inspired Oxygen 50 50 05/28/24 20:42 05/28/24 20:42 05/28/24 21:00 Temperature 97.5 F L Pulse Rate 81 81 83 Respiratory Rate 20 20 20 Blood Pressure 106/86 Pulse Oximetry 100 Oxygen Delivery Fraction of Inspired Oxygen 05/28/24 21:11 05/28/24 21:15 05/28/24 22:00 Temperature Pulse Rate 85 90 82 Respiratory Rate Blood Pressure 106/86 112/70 Pulse Oximetry 100 Oxygen Delivery Mechanical Ventilation Fraction of Inspired Oxygen 50 05/28/24 22:00 05/28/24 22:00 05/28/24 22:00 Temperature Pulse Rate 82 82 82 Respiratory Rate 20 20 Blood Pressure 112/70 112/70 Pulse Oximetry Oxygen Delivery Fraction of Inspired Oxygen 05/28/24 22:00 05/28/24 22:00 05/28/24 22:00 Temperature 97.7 F Pulse Rate 82 82 82 Respiratory Rate 20 20 Blood Pressure 112/70 Pulse Oximetry 100 Oxygen Delivery Fraction of Inspired Oxygen 05/28/24 22:30 05/28/24 23:00 05/28/24 23:15 Temperature 97.7 F 98.6 F Pulse Rate 88 89 87 Respiratory Rate 20 20 Blood Pressure 103/77 98/66 L Pulse Oximetry 100 100 100 Oxygen Delivery Mechanical Ventilation Fraction of Inspired Oxygen 40 05/28/24 23:45 05/29/24 00:00 05/29/24 00:00 Temperature 98.6 F Pulse Rate 94 Respiratory Rate Blood Pressure 101/77 Pulse Oximetry Oxygen Delivery Fraction of Inspired Oxygen 40 05/29/24 00:00 05/29/24 00:00 05/29/24 00:00 Temperature 98.8 F Pulse Rate 93 93 93 Respiratory Rate 20 20 Blood Pressure 101/77 101/77 101/77 Pulse Oximetry 100 Oxygen Delivery Fraction of Inspired Oxygen 05/29/24 00:00 05/29/24 00:00 05/29/24 00:00 Temperature Pulse Rate 93 93 91 Respiratory Rate 20 20 Blood Pressure Pulse Oximetry Oxygen Delivery Fraction of Inspired Oxygen 05/29/24 00:00 05/29/24 00:44 05/29/24 00:44 Temperature Pulse Rate 92 92 Respiratory Rate Blood Pressure 85/55 L 85/55 L Pulse Oximetry 100 Oxygen Delivery Mechanical Ventilation Fraction of Inspired Oxygen 40 05/29/24 02:00 05/29/24 02:00 05/29/24 02:00 Temperature 99.3 F Pulse Rate 88 88 100 Respiratory Rate 20 20 Blood Pressure 102/64 102/64 102/64 Pulse Oximetry 100 Oxygen Delivery Fraction of Inspired Oxygen 05/29/24 02:00 05/29/24 02:00 05/29/24 02:00 Temperature Pulse Rate 88 88 88 Respiratory Rate 20 20 Blood Pressure 102/64 Pulse Oximetry Oxygen Delivery Fraction of Inspired Oxygen 05/29/24 02:00 05/29/24 02:10 05/29/24 02:30 Temperature Pulse Rate 88 83 88 Respiratory Rate Blood Pressure 84/66 L Pulse Oximetry 100 Oxygen Delivery Mechanical Ventilation Fraction of Inspired Oxygen 35 05/29/24 03:16 05/29/24 04:00 05/29/24 04:00 Temperature 99.3 F Pulse Rate 99 99 Respiratory Rate 20 Blood Pressure 97/83 L Pulse Oximetry 100 100 Oxygen Delivery Mechanical Ventilation Fraction of Inspired Oxygen 40 05/29/24 04:00 05/29/24 04:00 05/29/24 04:00 Temperature Pulse Rate 100 94 94 Respiratory Rate 20 Blood Pressure 97/83 L 97/83 L 97/83 L Pulse Oximetry Oxygen Delivery Fraction of Inspired Oxygen 05/29/24 04:00 05/29/24 04:00 05/29/24 05:34 Temperature Pulse Rate 94 94 95 Respiratory Rate 20 20 Blood Pressure Pulse Oximetry 100 Oxygen Delivery Mechanical Ventilation Fraction of Inspired Oxygen 30 05/29/24 06:00 05/29/24 06:00 05/29/24 06:00 Temperature 99.3 F Pulse Rate 95 95 100 Respiratory Rate 20 20 Blood Pressure 90/64 L 90/64 L Pulse Oximetry 100 Oxygen Delivery Fraction of Inspired Oxygen 05/29/24 06:00 05/29/24 06:00 05/29/24 06:00 Temperature Pulse Rate 95 95 95 Respiratory Rate 20 Blood Pressure 90/64 L 90/64 L Pulse Oximetry Oxygen Delivery Fraction of Inspired Oxygen 05/29/24 06:00 05/29/24 06:15 05/29/24 06:45 Temperature Pulse Rate 95 94 97 Respiratory Rate 20 20 Blood Pressure 71/57 L 117/78 Pulse Oximetry Oxygen Delivery Fraction of Inspired Oxygen 05/29/24 06:45 05/29/24 07:00 05/29/24 07:15 Temperature 99.3 F 99.3 F Pulse Rate 97 100 96 Respiratory Rate 20 18 18 Blood Pressure 117/78 105/73 81/54 L Pulse Oximetry 96 96 Oxygen Delivery Fraction of Inspired Oxygen 05/29/24 07:30 05/29/24 07:45 05/29/24 08:00 Temperature 99.2 F 99.2 F Pulse Rate 94 93 91 Respiratory Rate 18 18 18 Blood Pressure 87/69 L 86/63 L Pulse Oximetry 96 96 98 Oxygen Delivery Mechanical Ventilation Fraction of Inspired Oxygen 30 05/29/24 08:00 05/29/24 08:00 05/29/24 08:00 Temperature 98.8 F Pulse Rate 92 92 Respiratory Rate 18 Blood Pressure 89/74 L Pulse Oximetry 97 Oxygen Delivery Fraction of Inspired Oxygen 30 05/29/24 08:02 05/29/24 08:05 05/29/24 08:05 Temperature Pulse Rate 92 97 97 Respiratory Rate 18 18 Blood Pressure 89/74 L Pulse Oximetry Oxygen Delivery Fraction of Inspired Oxygen 05/29/24 08:06 05/29/24 08:06 05/29/24 08:15 Temperature 99 F Pulse Rate 97 97 92 Respiratory Rate 19 Blood Pressure 89/74 L 89/74 L 100/74 Pulse Oximetry 97 Oxygen Delivery Fraction of Inspired Oxygen 05/29/24 08:16 05/29/24 08:16 05/29/24 08:30 Temperature Pulse Rate 93 93 95 Respiratory Rate 17 Blood Pressure 100/74 100/74 129/80 Pulse Oximetry 99 Oxygen Delivery Fraction of Inspired Oxygen 05/29/24 08:45 05/29/24 09:00 05/29/24 09:05 Temperature 98.9 F 99.0 F Pulse Rate 92 89 86 Respiratory Rate 18 24 H Blood Pressure 132/85 135/82 135/82 Pulse Oximetry 100 Oxygen Delivery Fraction of Inspired Oxygen 05/29/24 09:07 05/29/24 09:09 05/29/24 09:10 Temperature Pulse Rate 85 84 86 Respiratory Rate 24 H 30 H Blood Pressure 135/82 Pulse Oximetry Oxygen Delivery Fraction of Inspired Oxygen 05/29/24 09:11 05/29/24 09:15 05/29/24 09:30 Temperature 99.0 F 99.0 F Pulse Rate 91 86 91 Respiratory Rate 26 H 19 Blood Pressure 135/82 120/76 147/77 H Pulse Oximetry 98 98 Oxygen Delivery Fraction of Inspired Oxygen 05/29/24 09:45 05/29/24 09:46 05/29/24 10:00 Temperature 99.0 F Pulse Rate 89 91 89 Respiratory Rate 16 Blood Pressure 146/75 H Pulse Oximetry 98 98 Oxygen Delivery Mechanical Ventilation Fraction of Inspired Oxygen 30 05/29/24 10:00 05/29/24 10:00 05/29/24 10:03 Temperature 99.0 F 99.0 F Pulse Rate 92 92 91 Respiratory Rate 18 18 18 Blood Pressure 141/86 H 141/86 H 141/86 H Pulse Oximetry 100 100 Oxygen Delivery Fraction of Inspired Oxygen 05/29/24 10:05 05/29/24 10:15 05/29/24 10:30 Temperature 99.0 F 98.9 F Pulse Rate 91 86 84 Respiratory Rate 18 18 18 Blood Pressure 128/76 102/72 Pulse Oximetry 98 98 Oxygen Delivery Fraction of Inspired Oxygen 05/29/24 10:45 05/29/24 11:00 05/29/24 11:20 Temperature 98.8 F 98.6 F Pulse Rate 84 82 81 Respiratory Rate 18 18 Blood Pressure 123/76 126/79 126/81 Pulse Oximetry 99 97 Oxygen Delivery Fraction of Inspired Oxygen 05/29/24 12:00 05/29/24 12:02 Temperature 98.8 F Pulse Rate 96 109 H Respiratory Rate 19 Blood Pressure 148/101 H 148/101 H Pulse Oximetry 95 Oxygen Delivery Fraction of Inspired Oxygen Intake/Output Intake/Output: Intake & Output 05/26/24 05/27/24 05/28/24 05/29/24 23:59 23:59 23:59 23:59 Intake Total 946.7 1986.4 1004.6 Output Total 0 400 0 Balance 946.7 1586.4 1004.6 Meds/Results Medications: Active Medications Generic Name Dose Route Start Last Admin Trade Name Freq PRN Reason Stop Dose Admin Albuterol/Ipratropium 3 ml 05/27/24 15:02 05/28/24 21:10 Ipratropium 0.5 Mg/Albuterol Sulfate 2.5 Mg Ampul.Neb 3 Ml INHALATION 3 ml Q6HRT PRN Administration Wheezing Aspirin 325 mg 05/28/24 08:00 05/29/24 11:19 Aspirin 325 Mg Tablet FEED TUBE 325 mg DAILY@0800 [facility] Administration Clopidogrel Bisulfate 75 mg 05/28/24 09:00 05/29/24 11:19 Clopidogrel Bisulfate 75 Mg Tablet FEED TUBE 75 mg QAM JAZMIN Administration Dextrose 12.5 gm 05/27/24 14:50 Dextrose 50% 25 Gm/50 Ml Syringe IV PUSH PRN PRN Hypoglycemia Protocol Enoxaparin Sodium 30 mg 05/28/24 09:00 05/29/24 11:18 Enoxaparin 30 Mg/0.3 Ml Syringe SUB-Q 30 mg DAILY JAZMIN Administration Epoetin Daniele-epbx 10,000 units 05/29/24 18:26 Epoetin Daniele-Epbx 10,000 Units/Ml Vial IV PUSH 05/29/24 18:27 ONCE ONE Glucagon 1 mg 05/27/24 14:50 Glucagon For Inj 1 Mg Vial IM PRN PRN Hypoglycemia Protocol Glucose 15 gm 05/27/24 14:50 Glucose Oral Gel 15 Gm Of Glucse In 37.5 Gm Tube PO PRN PRN Hypoglycemia Protocol Fentanyl Citrate 2,500 mcg in 250 mls @ 0 mls/hr 05/27/24 14:50 05/29/24 10:05 Fentanyl 2,500 Mcg/Ns 250 Ml IV CONT 0 mcg/hr .Q0M JAZMIN 0 mls/hr Titration Protocol Propofol 100 mls @ 8.688 mls/hr 05/27/24 14:50 05/29/24 09:10 Diprivan IV CONT 20 mcg/kg/min .[id number] JAZMIN 8.69 mls/hr Titration Protocol 20 MCG/KG/MIN Dextrose 1,000 mls @ 100 mls/hr 05/27/24 14:50 Dextrose 5% 1,000 Ml IVPB PRN PRN Hypoglycemia Protocol Levetiracetam 500 mg in 100 mls @ 400 mls/hr 05/27/24 21:00 05/29/24 11:19 Keppra Iv IVPB 400 mls/hr Q12HR JAZMIN Administration Metronidazole 500 mg in 100 mls @ 100 mls/hr 05/28/24 04:00 05/29/24 11:19 Flagyl 500 Mg/Iso Soln 100 Ml IVPB 100 mls/hr Q8H JAZMIN Administration Norepinephrine Bitartrate 8 mg in 250 mls @ 28.125 mls/hr 05/28/24 05:20 05/29/24 12:02 Levophed 8 Mg/D5w 250 Ml IV CONT 15 mcg/min .[id number] JAZMIN 28.13 mls/hr Titration Protocol 15 MCG/MIN Cefepime HCl 1 gm in 50 mls @ 100 mls/hr 05/28/24 18:00 05/28/24 19:00 Maxipime 1 Gm/Ns 50 Ml IVPB Infused DAILY@1800 JAZMIN Infusion Amiodarone HCl/Dextrose 360 mg in 200 mls @ 16.667 mls/hr 05/28/24 21:30 05/29/24 09:11 Nexterone 360 Mg/D5w 200 Ml IV CONT 06/19/24 15:29 0.5 mg/min .Q12H JAZMIN 16.67 mls/hr Infusion Protocol 0.5 MG/MIN Albumin Human 50 mls @ 999 mls/hr 05/29/24 06:26 Albutein IVPB 06/28/24 06:25 Q10M PRN HYPOTENSION Vasopressin 100 units/ 100 mls @ 2.4 mls/hr 05/29/24 07:45 05/29/24 09:09 Dextrose IV CONT 0.04 units/min .[id number] JAZMIN 2.4 mls/hr Titration Protocol 0.04 UNITS/MIN Insulin Aspart 3 - 6 units 05/28/24 00:00 05/29/24 11:14 Insulin Aspart (*Bkc) 100 Units/Ml SUB-Q Not Given Q4HR JAZMIN Protocol Multi-Ingred Cream/Lotion/Oil/Oint 1 applic 05/27/24 21:00 05/29/24 11:20 Mineral Oil/White Petrolatum Ointment EACH EYE 1 applic Q12HR JAZMIN Administration Ondansetron HCl 4 mg 05/27/24 14:13 Ondansetron Inj 4 Mg/2 Ml Vial IV PUSH Q4H PRN Nausea Pantoprazole Sodium 40 mg 05/28/24 09:00 05/29/24 11:20 Pantoprazole Sodium Iv 40 Mg Vial IV PUSH 40 mg DAILY JAZMIN Administration Sodium Chloride 10 ml 05/28/24 14:00 05/29/24 08:11 Central Line Flush IV PUSH 10 ml Q8HR JAZMIN Administration Sodium Chloride 20 ml 05/28/24 10:09 Central Line Flush IV PUSH PRN PRN after blood draws Radiology Results: ITS Impressions Abdomen X-Ray 05/27/24 13:15 IMPRESSION: 1: NG tube tip in the stomach. Chest/Abdomen/Pelvis CTA 05/27/24 14:18 IMPRESSION: 1. Diffuse bilateral lung disease with most dense consolidation in the dependent right lower lobe. Would favor multifocal pneumonia over pulmonary edema. 2. Radiographically uncomplicated distal descending colon diverticulitis. 3. Endotracheal tube tip at the entrance to the left mainstem bronchus. Recommend withdrawal by 3 cm. This and the above 2 findings were discussed with Dr. Gordon at 2:30 PM. 4. Cardiomegaly with left heart predominance. 5. Enlargement of the central pulmonary arteries consistent with pulmonary arterial hypertension. No evident pulmonary embolism. 5. Small sliding-type hiatal hernia. 6. Severe bilateral renal atrophy. 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 Head CT 05/29/24 08:36 Impression: No acute abnormality seen. Chest CT 05/29/24 08:38 Impression: [id number] right pneumothorax. Bibasilar consolidation with scattered hyperdense material the lungs is compatible with aspiration pneumonia and/or bibasilar atelectasis. Correlate clinically. Minimal pleural fluid bilaterally. Chest X-Ray 05/29/24 10:13 IMPRESSION: 1. No residual right pneumothorax post right chest tube placement. 2. Persistent opacities in bilateral mid and lower lung zones which could represent atelectasis and/or pneumonia. 3. Cardiomegaly. Labs Labs: Laboratory Results - last 24 hr 05/27/24 05/28/24 05/28/24 11:47 12:59 14:02 WBC RBC Hgb Hct MCV MCH MCHC RDW Plt Count MPV PT INR APTT Puncture Site ABG pH ABG pCO2 ABG pO2 ABG PO2/FiO2 Ratio ABG HCO3 ABG O2 Saturation ABG O2 Content ABG Base Excess A-a Gradient Oxyhemoglobin Total Hemoglobin O2 Delivery Device O2 Liters/Min Minute Volume Vent Rate Vent Mode FiO2 Tidal Volume PEEP Peak Inspir Pressure Pressure Support Sodium Potassium Chloride Carbon Dioxide Anion Gap BUN Creatinine Estim Creat Clear Calc Estimated GFR Glucose POC Capillary Glucose 125 H 155 H 145 H Lactic Acid Calcium Phosphorus Magnesium Total Bilirubin AST ALT Alkaline Phosphatase Total Creatine Kinase Total Protein Albumin 05/28/24 05/28/24 05/28/24 15:10 16:06 16:07 WBC RBC Hgb Hct MCV MCH MCHC RDW Plt Count MPV PT 16.7 H INR 1.3 APTT 42.3 H Puncture Site ABG pH ABG pCO2 ABG pO2 ABG PO2/FiO2 Ratio ABG HCO3 ABG O2 Saturation ABG O2 Content ABG Base Excess A-a Gradient Oxyhemoglobin Total Hemoglobin O2 Delivery Device O2 Liters/Min Minute Volume Vent Rate Vent Mode FiO2 Tidal Volume PEEP Peak Inspir Pressure Pressure Support Sodium 136 L Potassium 3.8 Chloride 95 L Carbon Dioxide 26 Anion Gap 15 H BUN 36 H Creatinine 6.78 H Estim Creat Clear Calc 7 Estimated GFR 6 L Glucose 177 H POC Capillary Glucose 146 H 174 H Lactic Acid 2.9 H Calcium 9.0 Phosphorus 5.9 H Magnesium 2.2 Total Bilirubin AST ALT Alkaline Phosphatase Total Creatine Kinase 596 H Total Protein Albumin 05/28/24 05/28/24 05/28/24 17:03 18:04 20:49 WBC RBC Hgb Hct MCV MCH MCHC RDW Plt Count MPV PT INR APTT Puncture Site ABG pH ABG pCO2 ABG pO2 ABG PO2/FiO2 Ratio ABG HCO3 ABG O2 Saturation ABG O2 Content ABG Base Excess A-a Gradient Oxyhemoglobin Total Hemoglobin O2 Delivery Device O2 Liters/Min Minute Volume Vent Rate Vent Mode FiO2 Tidal Volume PEEP Peak Inspir Pressure Pressure Support Sodium Potassium Chloride Carbon Dioxide Anion Gap BUN Creatinine Estim Creat Clear Calc Estimated GFR Glucose POC Capillary Glucose 171 H 162 H 157 H Lactic Acid Calcium Phosphorus Magnesium Total Bilirubin AST ALT Alkaline Phosphatase Total Creatine Kinase Total Protein Albumin 05/28/24 05/28/24 05/28/24 20:55 22:39 23:47 WBC RBC Hgb Hct MCV MCH MCHC RDW Plt Count MPV PT INR APTT Puncture Site ABG pH ABG pCO2 ABG pO2 ABG PO2/FiO2 Ratio ABG HCO3 ABG O2 Saturation ABG O2 Content ABG Base Excess A-a Gradient Oxyhemoglobin Total Hemoglobin O2 Delivery Device O2 Liters/Min Minute Volume Vent Rate Vent Mode FiO2 Tidal Volume PEEP Peak Inspir Pressure Pressure Support Sodium Potassium Chloride Carbon Dioxide Anion Gap BUN Creatinine Estim Creat Clear Calc Estimated GFR Glucose POC Capillary Glucose 159 H 160 H Lactic Acid 3.1 H Calcium Phosphorus Magnesium Total Bilirubin AST ALT Alkaline Phosphatase Total Creatine Kinase 463 H Total Protein Albumin 05/28/24 05/29/24 05/29/24 23:50 04:49 06:37 WBC RBC Hgb Hct MCV MCH MCHC RDW Plt Count MPV PT INR APTT Puncture Site Right radial ABG pH 7.502 H* ABG pCO2 30.7 L ABG pO2 111.8 H ABG PO2/FiO2 Ratio 3.73 ABG HCO3 23.5 ABG O2 Saturation 98.5 ABG O2 Content 13.3 L ABG Base Excess 0.8 A-a Gradient 66.0 Oxyhemoglobin 97.4 Total Hemoglobin 9.6 L O2 Delivery Device Ventilator O2 Liters/Min Not Reportable Minute Volume Not Reportable Vent Rate 20 Vent Mode Cmv FiO2 30 Tidal Volume 420 PEEP 10 Peak Inspir Pressure Not Reportable Pressure Support Not Reportable Sodium Potassium Chloride Carbon Dioxide Anion Gap BUN Creatinine Estim Creat Clear Calc Estimated GFR Glucose POC Capillary Glucose 156 H Lactic Acid 3.2 H Calcium Phosphorus Magnesium Total Bilirubin AST ALT Alkaline Phosphatase Total Creatine Kinase Total Protein Albumin 05/29/24 05/29/24 05/29/24 06:43 09:55 10:00 WBC RBC Hgb Hct MCV MCH MCHC RDW Plt Count MPV PT INR APTT Puncture Site ABG pH ABG pCO2 ABG pO2 ABG PO2/FiO2 Ratio ABG HCO3 ABG O2 Saturation ABG O2 Content ABG Base Excess A-a Gradient Oxyhemoglobin Total Hemoglobin O2 Delivery Device O2 Liters/Min Minute Volume Vent Rate Vent Mode FiO2 Tidal Volume PEEP Peak Inspir Pressure Pressure Support Sodium 133 L 133 L Potassium 3.8 4.1 Chloride 93 L 93 L Carbon Dioxide 25 26 Anion Gap 15 H 14 H BUN 38 H 39 H Creatinine 7.27 H 7.61 H Estim Creat Clear Calc 6 6 Estimated GFR 6 L 5 L Glucose 167 H 186 H POC Capillary Glucose 195 H Lactic Acid 2.0 Calcium 8.5 8.5 Phosphorus 5.7 H Magnesium 2.1 Total Bilirubin 0.5 AST 151 H ALT 126 H Alkaline Phosphatase 149 H Total Creatine Kinase 286 H 279 H Total Protein 6.0 L Albumin 3.0 L 05/29/24 05/29/24 10:18 12:33 WBC 17.6 H RBC 3.02 L Hgb 7.9 L Hct 26.3 L MCV 87.1 MCH 26.2 MCHC 30.0 L RDW 17.4 H Plt Count 255 MPV 9.9 PT INR APTT Puncture Site ABG pH ABG pCO2 ABG pO2 ABG PO2/FiO2 Ratio ABG HCO3 ABG O2 Saturation ABG O2 Content ABG Base Excess A-a Gradient Oxyhemoglobin Total Hemoglobin O2 Delivery Device O2 Liters/Min Minute Volume Vent Rate Vent Mode FiO2 Tidal Volume PEEP Peak Inspir Pressure Pressure Support Sodium Potassium Chloride Carbon Dioxide Anion Gap BUN Creatinine Estim Creat Clear Calc Estimated GFR Glucose POC Capillary Glucose 187 H Lactic Acid Calcium Phosphorus Magnesium Total Bilirubin AST ALT Alkaline Phosphatase Total Creatine Kinase Total Protein Albumin
--- NOTE | 2024-05-29 13:16 | PC.NURSE ---
At approximately 1145am this RN communicated with the ICU physician that the patients eyes were open, that she was looking upwards and was noted to be continuously twitching at this time. Physician came to the bedside at this time to assess the patient and communicate with family at the bedside.
[2024-05-29] MEDS: ALBUMIN HUMAN 25% 12.5 GM/50ML 50 ML IVPB ×2 (14:54→16:08)
--- NOTE | 2024-05-29 15:00 | ECG_ITS ---
Test Date: 2024-05-29 15:16:51 Measurements Intervals Ronan Rate: 127 P: 0 DE: 0 QRS: -47 QRSD: 128 T: 98 QT: 384 QTc: 560 Interpretive Statements ATRIAL FIBRILLATION WITH RAPID VENTRICULAR RESPONSE LEFT AXIS DEVIATION INCOMPLETE LEFT BUNDLE BRANCH BLOCK CONSIDER ANTERIOR INFARCT, AGE INDETERMINATE BORDERLINE ST-T WAVE ABNORMALITY- HIGH LATERAL LEADS BASELINE WANDER- I, III, AVR, AVL, AVF, V1-V2, V4-V5 ABNORMAL ECG Compared to ECG 05/28/2024 10:25:06 SINUS RHYTHM NO LONGER PRESENT Electronically Signed On 05-29-2024 15:21:10 CDT by Heath Grande D.O.
--- NOTE | 2024-05-29 15:33 | P.PNNP_ITS ---
Progress Note: A&P Assessment and Plan (1) End stage renal disease: Code(s): N18.6 - End stage renal disease Status: Chronic Assessment and Plan: * HD today * continue Monday/Monday/Monday dialysis schedule while hospitalized * follow electrolytes, volume status, and clearance (2) Acute respiratory failure with hypoxia: Code(s): J96.01 - Acute respiratory failure with hypoxia Status: Acute Assessment and Plan: * secondary to cardiac arrest, aspiration pneumonia, pulmonary edema * intubated and on mechanical ventilation * rule out influenza, RSV, and COVID * P.r.n. bronchodilators * empiric vancomycin cefepime and Flagyl (3) Cardiac arrest: Code(s): I46.9 - Cardiac arrest, cause unspecified Status: Acute Assessment and Plan: * presented with VFib cardiac arrest * CTA was negative for PE * Cardiology consulted and on amiodarone infusion * Echo noted * follow serial troponins (4) Anoxic brain injury: Code(s): G93.1 - Anoxic brain damage, not elsewhere classified Status: Acute Assessment and Plan: * suspected sustained anoxic brain injury secondary to cardiac arrest as per exam * started on therapeutic hypothermia protocol * Head CT was negative on presentation * repeat CT scan in 48-72 hours and also evaluate the need for EEG once patient is rewarmed * Neurology consult? * 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: Code(s): I50.40 - Unspecified combined systolic (congestive) and diastolic (congestive) heart failure Status: Acute Assessment and Plan: * known history * Cardiology following * repeat Echo noted (6) Paroxysmal atrial fibrillation: Code(s): I48.0 - Paroxysmal atrial fibrillation Status: Acute Assessment and Plan: * status post Watchman procedure * ot on anticoagulation likely secondary to history of GI bleed * continue aspirin Plavix * on amiodarone infusion (7) Aspiration pneumonia: Code(s): J69.0 - Pneumonitis due to inhalation of food and vomit Status: Acute Assessment and Plan: * as suggested by imagimg * follow cultures * on antibiotics (8) Pulmonary edema: Code(s): J81.1 - Chronic pulmonary edema Status: Acute Assessment and Plan: * as noted on admission imaging * fluid removal with dialysis * follow serial CXRs (9) Anemia: Code(s): D64.9 - Anemia, unspecified Status: Chronic Assessment and Plan: * due to ESRD along with acute illness * SHERRI with HD * follow trend of H/H (10) Type II diabetes mellitus: Code(s): E11.9 - Type 2 diabetes mellitus without complications Status: Acute Assessment and Plan: * noted in the past but now diet controlled * glycemic control per men's locker room attendant/hospitalist Will continue to follow. L Subjective Date/time seen: 05/29/24 15:33 Interval history: Follow-up for end stage renal disease on hemodialysis. Tolerating dialysis at the time of my visit (seen on HD at 3:03PM); remains intubated/sedated/paralyzed and on mechanical ventilation; completed hypothermia protocol and was rewarming overnight; still requiring vasopressor therapy juve maintain MAP/BP; wew right-sided pneumothorax this morning requiring chest tube insertion by Surgery; ongoing family discussion regarding goals of care. Exam 2 Narrative: General: ill appearing female intubated/sedated/paralyzed and on mechanical ventilation Heart: tachycardic, normal S1 and S2; no rub Lungs: coarse breath sounds with bibasilar crackles Abdomen: soft, nontender, nondistended, positive bowel sounds Extremities: no cyanosis or clubbing; no edema Skin: cool to touch Objective Data Vital Signs Vital Signs: Vital Signs Temp Pulse Resp BP Pulse Ox O2 Del Method FiO2 05/29/24 15:30 124 H 106/54 L 05/29/24 15:15 122 H 121/92 H 05/29/24 15:00 95 105/72 05/29/24 14:45 77 115/80 05/29/24 14:30 99.3 F 82 18 103/72 05/29/24 14:30 30 05/29/24 14:05 104 H 123/80 05/29/24 14:05 104 H 123/80 05/29/24 14:00 104 H 123/80 05/29/24 14:00 99.3 F 104 H 23 H 123/80 96 05/29/24 14:00 104 H 05/29/24 13:47 95 96 Mechanical Ventilation 30 05/29/24 12:45 88 123/80 05/29/24 12:45 99.0 F 87 24 H 123/80 95 05/29/24 12:30 99.0 F 81 19 142/67 H 96 05/29/24 12:15 98.9 F 88 20 106/69 95 05/29/24 12:02 109 H 148/101 H 05/29/24 12:00 104 H 148/101 H 05/29/24 12:00 101 H 148/101 H 05/29/24 12:00 30 05/29/24 12:00 96 05/29/24 12:00 88 24 H 95 Mechanical Ventilation 30 05/29/24 12:00 98.7 F 104 H 24 H 148/101 H 95 05/29/24 12:00 98.8 F 96 19 148/101 H 95 05/29/24 11:45 98.6 F 104 H 25 H 146/92 H 95 05/29/24 11:30 98.6 F 97 21 H 134/90 97 05/29/24 11:25 92 18 05/29/24 11:20 81 126/81 05/29/24 11:15 98.6 F 82 18 126/81 97 05/29/24 11:00 98.6 F 82 18 126/79 97 05/29/24 10:45 98.8 F 84 18 123/76 99 05/29/24 10:30 98.9 F 84 18 102/72 98 05/29/24 10:15 99.0 F 86 18 128/76 98 05/29/24 10:05 91 18 05/29/24 10:03 91 18 141/86 H 05/29/24 10:00 92 141/86 H 05/29/24 10:00 92 141/86 H 05/29/24 10:00 92 18 05/29/24 10:00 99.0 F 92 18 141/86 H 100 05/29/24 10:00 99.0 F 92 18 141/86 H 100 05/29/24 10:00 89 05/29/24 09:46 91 98 Mechanical Ventilation 30 05/29/24 09:45 99.0 F 89 16 146/75 H 98 05/29/24 09:30 99.0 F 91 19 147/77 H 98 05/29/24 09:15 99.0 F 86 26 H 120/76 98 05/29/24 09:11 91 135/82 05/29/24 09:10 86 30 H 05/29/24 09:09 84 135/82 05/29/24 09:07 85 24 H 05/29/24 09:05 86 135/82 05/29/24 09:00 99.0 F 89 24 H 135/82 100 05/29/24 08:45 98.9 F 92 18 132/85 05/29/24 08:30 95 17 129/80 99 05/29/24 08:16 93 100/74 05/29/24 08:16 93 100/74 05/29/24 08:15 99 F 92 19 100/74 97 05/29/24 08:06 97 89/74 L 05/29/24 08:06 97 89/74 L 05/29/24 08:05 97 18 05/29/24 08:05 97 18 05/29/24 08:02 92 89/74 L 05/29/24 08:00 98.8 F 92 18 89/74 L 97 05/29/24 08:00 30 05/29/24 08:00 92 05/29/24 08:00 91 18 98 Mechanical Ventilation 30 05/29/24 07:45 99.2 F 93 18 86/63 L 96 05/29/24 07:30 99.2 F 94 18 87/69 L 96 05/29/24 07:15 99.3 F 96 18 81/54 L 96 05/29/24 07:00 99.3 F 100 18 105/73 96 05/29/24 06:45 97 20 117/78 05/29/24 06:45 97 20 117/78 05/29/24 06:15 94 71/57 L 05/29/24 06:00 95 20 05/29/24 06:00 95 20 05/29/24 06:00 95 90/64 L 05/29/24 06:00 95 90/64 L 05/29/24 06:00 100 20 90/64 L 05/29/24 06:00 99.3 F 95 20 90/64 L 100 05/29/24 06:00 95 05/29/24 05:34 95 100 Mechanical Ventilation 30 05/29/24 04:00 94 20 05/29/24 04:00 94 20 05/29/24 04:00 94 97/83 L 05/29/24 04:00 94 97/83 L 05/29/24 04:00 100 20 97/83 L 05/29/24 04:00 99.3 F 99 20 97/83 L 100 05/29/24 04:00 99 05/29/24 03:16 100 Mechanical Ventilation 40 05/29/24 02:30 88 84/66 L 05/29/24 02:10 83 100 Mechanical Ventilation 35 05/29/24 02:00 88 05/29/24 02:00 88 20 05/29/24 02:00 88 20 05/29/24 02:00 88 102/64 05/29/24 02:00 100 20 102/64 05/29/24 02:00 88 102/64 05/29/24 02:00 99.3 F 88 20 102/64 100 05/29/24 00:44 92 85/55 L 05/29/24 00:44 92 85/55 L 05/29/24 00:00 100 Mechanical Ventilation 40 05/29/24 00:00 91 05/29/24 00:00 93 20 05/29/24 00:00 93 20 05/29/24 00:00 93 101/77 05/29/24 00:00 93 20 101/77 05/29/24 00:00 98.8 F 93 20 101/77 100 05/29/24 00:00 40 05/29/24 00:00 94 101/77 05/28/24 23:45 98.6 F 05/28/24 23:15 87 100 Mechanical Ventilation 40 05/28/24 23:00 98.6 F 89 20 98/66 L 100 05/28/24 22:30 97.7 F 88 20 103/77 100 05/28/24 22:00 82 05/28/24 22:00 97.7 F 82 20 112/70 100 05/28/24 22:00 82 20 05/28/24 22:00 82 20 05/28/24 22:00 82 112/70 05/28/24 22:00 82 20 112/70 05/28/24 22:00 82 112/70 05/28/24 21:15 90 100 Mechanical Ventilation 50 05/28/24 21:11 85 106/86 05/28/24 21:00 97.5 F L 83 20 106/86 100 05/28/24 20:42 81 20 05/28/24 20:42 81 20 05/28/24 20:00 50 05/28/24 20:00 83 05/28/24 20:00 100 Mechanical Ventilation 50 05/28/24 20:00 96.8 F L 108 H 20 88/70 L 100 05/28/24 20:00 80 100/75 05/28/24 20:00 80 20 05/28/24 20:00 80 20 100/75 05/28/24 20:00 80 100/75 05/28/24 20:00 80 20 05/28/24 19:00 96.8 F L 73 20 109/75 100 05/28/24 18:30 75 131/76 Intake/Output Intake/Output: Intake & Output 05/26/24 05/27/24 05/28/24 05/29/24 23:59 23:59 23:59 23:59 Intake Total 946.7 1986.4 1306.6 Output Total 0 400 0 Balance 946.7 1586.4 1306.6 Meds/Results Medications: Active Medications Generic Name Dose Route Start Last Admin Trade Name Freq PRN Reason Stop Dose Admin Albuterol/Ipratropium 3 ml 05/27/24 15:02 05/28/24 21:10 Ipratropium 0.5 Mg/Albuterol Sulfate 2.5 Mg Ampul.Neb 3 Ml INHALATION 3 ml Q6HRT PRN Administration Wheezing Aspirin 325 mg 05/28/24 08:00 05/29/24 11:19 Aspirin 325 Mg Tablet FEED TUBE 325 mg DAILY@0800 JAZMIN Administration Clopidogrel Bisulfate 75 mg 05/28/24 09:00 05/29/24 11:19 Clopidogrel Bisulfate 75 Mg Tablet FEED TUBE 75 mg QAM JAZMIN Administration Dextrose 12.5 gm 05/27/24 14:50 Dextrose 50% 25 Gm/50 Ml Syringe IV PUSH PRN PRN Hypoglycemia Protocol Enoxaparin Sodium 30 mg 05/28/24 09:00 05/29/24 11:18 Enoxaparin 30 Mg/0.3 Ml Syringe SUB-Q 30 mg DAILY JAZMIN Administration Epoetin Daniele-epbx 10,000 units 05/29/24 18:26 05/29/24 17:22 Epoetin Daniele-Epbx 10,000 Units/Ml Vial IV PUSH 05/29/24 18:27 10,000 units ONCE ONE Administration Glucagon 1 mg 05/27/24 14:50 Glucagon For Inj 1 Mg Vial IM PRN PRN Hypoglycemia Protocol Glucose 15 gm 05/27/24 14:50 Glucose Oral Gel 15 Gm Of Glucse In 37.5 Gm Tube PO PRN PRN Hypoglycemia Protocol Fentanyl Citrate 2,500 mcg in 250 mls @ 0 mls/hr 05/27/24 14:50 05/29/24 10:05 Fentanyl 2,500 Mcg/Ns 250 Ml IV CONT 0 mcg/hr .Q0M JAZMIN 0 mls/hr Titration Protocol Propofol 100 mls @ 2.172 mls/hr 05/27/24 14:50 05/29/24 17:48 Diprivan IV CONT 5 mcg/kg/min .Q46H3M JAZMIN 2.17 mls/hr Titration Protocol 5 MCG/KG/MIN Dextrose 1,000 mls @ 100 mls/hr 05/27/24 14:50 Dextrose 5% 1,000 Ml IVPB PRN PRN Hypoglycemia Protocol Metronidazole 500 mg in 100 mls @ 100 mls/hr 05/28/24 04:00 05/29/24 11:19 Flagyl 500 Mg/Iso Soln 100 Ml IVPB 100 mls/hr Q8H JAZMIN Administration Norepinephrine Bitartrate 8 mg in 250 mls @ 45 mls/hr 05/28/24 05:20 05/29/24 17:48 Levophed 8 Mg/D5w 250 Ml IV CONT 24 mcg/min .Q5H34M JAZMIN 45 mls/hr Titration Protocol 24 MCG/MIN Cefepime HCl 1 gm in 50 mls @ 100 mls/hr 05/28/24 18:00 05/29/24 17:35 Maxipime 1 Gm/Ns 50 Ml IVPB 100 mls/hr DAILY@1800 JAZMIN Administration Amiodarone HCl/Dextrose 360 mg in 200 mls @ 16.667 mls/hr 05/28/24 21:30 05/29/24 14:05 Nexterone 360 Mg/D5w 200 Ml IV CONT 06/19/24 15:29 0.5 mg/min .Q12H JAZMIN 16.67 mls/hr Infusion Protocol 0.5 MG/MIN Albumin Human 50 mls @ 999 mls/hr 05/29/24 06:26 05/29/24 16:08 Albutein IVPB 06/28/24 06:25 999 mls/hr Q10M PRN Administration HYPOTENSION Vasopressin 100 units/ 100 mls @ 2.4 mls/hr 05/29/24 07:45 05/29/24 14:00 Dextrose IV CONT 0.04 units/min .[id number] JAZMIN 2.4 mls/hr Titration Protocol 0.04 UNITS/MIN Levetiracetam 1,000 mg in 100 mls @ 400 mls/hr 05/29/24 16:00 05/29/24 17:35 Keppra Iv IVPB 400 mls/hr Q8HR JAZMIN Administration Valproate Sodium 1,000 mg/ 110 mls @ 110 mls/hr 05/29/24 18:00 05/29/24 17:38 Dextrose IVPB 110 mls/hr Q8H JAZMIN Administration Insulin Aspart 3 - 6 units 05/28/24 00:00 05/29/24 17:36 Insulin Aspart (*Bkc) 100 Units/Ml SUB-Q Not Given Q4HR JAZMIN Protocol Multi-Ingred Cream/Lotion/Oil/Oint 1 applic 05/27/24 21:00 05/29/24 11:20 Mineral Oil/White Petrolatum Ointment EACH EYE 1 applic Q12HR JAZMIN Administration Ondansetron HCl 4 mg 05/27/24 14:13 Ondansetron Inj 4 Mg/2 Ml Vial IV PUSH Q4H PRN Nausea Pantoprazole Sodium 40 mg 05/28/24 09:00 05/29/24 11:20 Pantoprazole Sodium Iv 40 Mg Vial IV PUSH 40 mg DAILY JAZMIN Administration Sodium Chloride 10 ml 05/28/24 14:00 05/29/24 08:11 Central Line Flush IV PUSH 10 ml Q8HR JAZMIN Administration Sodium Chloride 20 ml 05/28/24 10:09 Central Line Flush IV PUSH PRN PRN after blood draws Radiology Results: ITS Impressions Abdomen X-Ray 05/27/24 13:15 IMPRESSION: 1: NG tube tip in the stomach. Chest/Abdomen/Pelvis CTA 05/27/24 14:18 IMPRESSION: 1. Diffuse bilateral lung disease with most dense consolidation in the dependent right lower lobe. Would favor multifocal pneumonia over pulmonary edema. 2. Radiographically uncomplicated distal descending colon diverticulitis. 3. Endotracheal tube tip at the entrance to the left mainstem bronchus. Recommend withdrawal by 3 cm. This and the above 2 findings were discussed with Dr. Gordon at 2:30 PM. 4. Cardiomegaly with left heart predominance. 5. Enlargement of the central pulmonary arteries consistent with pulmonary arterial hypertension. No evident pulmonary embolism. 5. Small sliding-type hiatal hernia. 6. Severe bilateral renal atrophy. 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 Head CT 05/29/24 08:36 Impression: No acute abnormality seen. Chest CT 05/29/24 08:38 Impression: [id number] right pneumothorax. Bibasilar consolidation with scattered hyperdense material the lungs is compatible with aspiration pneumonia and/or bibasilar atelectasis. Correlate clinically. Minimal pleural fluid bilaterally. Chest X-Ray 05/29/24 10:13 IMPRESSION: 1. No residual right pneumothorax post right chest tube placement. 2. Persistent opacities in bilateral mid and lower lung zones which could represent atelectasis and/or pneumonia. 3. Cardiomegaly. Labs Labs: Laboratory Tests 05/29/24 10:18 05/29/24 10:00 Calcium 8.5 Total Bilirubin 0.5 AST 151 H ALT 126 H Alkaline Phosphatase 149 H Total Creatine Kinase 279 H Total Protein 6.0 L Albumin 3.0 L Microbiology 05/28/24 11:36 Sputum Sputum Culture - Preliminary 05/28/24 11:36 Sputum Sputum Culture - Final
[2024-05-29 15:36] LABS: Triglycerides 379 mg/dL (<150)
--- NOTE | 2024-05-29 15:43 | WPDNEURCNPN ---
Assessment and Plan Assessment and plan (1) Cardiac arrest with ventricular fibrillation: Code(s): I46.9 - Cardiac arrest, cause unspecified; I49.01 - Ventricular fibrillation Status: Acute (2) End-stage renal disease on hemodialysis: Onset Date: 09/2009 Code(s): N18.6 - End stage renal disease; Z99.2 - Dependence on renal dialysis Status: Acute (3) End stage renal disease: Code(s): N18.6 - End stage renal disease Status: Chronic (4) CVA (cerebral vascular accident): Code(s): I63.9 - Cerebral infarction, unspecified Status: Acute (5) Cervical myelopathy: Code(s): G95.9 - Disease of spinal cord, unspecified Status: Acute (6) Afib: Code(s): I48.91 - Unspecified atrial fibrillation Status: Acute (7) Chronic anticoagulation: Code(s): Z79.01 - intermediate accountant (current) use of anticoagulants Status: Acute (8) Chronic anemia: Code(s): D64.9 - Anemia, unspecified Status: Chronic Plan 1. Status post cardiopulmonary arrest with intractable seizures. 2. Increase the Keppra as well as initiated the Depakene orders given to the nurse. 3. Long discussion with the family members about the status particularly what can be done in the long run. Will obtain the EEG, observed tonight how the seizures get control with the medications then evaluate her mental status and discuss and approach according. Consult date: 05/29/24 HPI: Donya Tobin is a 68 year old female Admitted to the hospital through the emergency room subsequent to cardiac arrest. Patient was in her car with family after undergoing dialysis when she collapsed 911 was cold and CPR was initiated by the EMS subsequently patient was intubated with 7 number ET tube and she received IV calcium, epinephrine, and CPR she was noted to have ventricular fibrillation and she has received amiodarone 300mg IV she did have 1 episode of pulseless electrical activity but otherwise she was in ventricular fibrillation and blood sugar on arrival was 130. Patient has history of cerebrovascular accident in the past in addition to the history of nonfunctional AV fistula on the left side and she has history of dialysis catheter at the right chest wall. She also have intraosseous line in the left tibia and also she have all shown device which was placed on December 31 at [facility] [place] when she was seen by the neurology at [facility] for the cerebrovascular accident issues in the past her particular medications included fluoxetine 10mg daily, mild remaining 15mg 3 times a day with meals most likely for the orthostatic hypotension, aspirin 81mg daily, gabapentin 200mg twice a day, omeprazole 20mg twice a day, and clopidogrel 75mg daily, she is known to be allergic to lisinopril, valsartan, and propoxyphene,. She has history of stroke on October 05, 2023 which left her with the left occipital lobe involvement and that happened after the cervical spine surgery. 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 She has also undergone cervical laminectomies between C3-C6 and C2-C7 with posterior spinal fusion on October 05, 2023 at [facility] ([facility] She has no history of smoking, alcohol consumption, and on initial examination she was documented to be unresponsive with dilated fixed pupil clear on chest auscultation while on ventilator. , multiple rounds of epinephrine, 3 bolus of sodium bicarb and additionally amiodarone bolus of 150mg making a total of 450mg she received along with the 1 amp calcium chloride she received multiple shocks for ventricular fibrillation and finally went to spontaneous circulation she was found to have no STEMI on EKG in the hospital she had diagnosis of ongoing nonischemic cardiomyopathy with history of cardiac arrest and ventricular fibrillation and paroxysmal atrial fibrillation. 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 She has been documented to be negative for the flu, RSV, COVID PCR she has been started on therapeutic hypothermia protocol. Now the neurology consultation has been obtained to evaluate the neurological status and also to plan further Review of Systems Review of Systems: All systems reviewed & are unremarkable except as noted in HPI and below PMFSH Past Medical History Medical History Cerebrovascular accident (10/05/23) small left occipital lobe infarct following cervical spine surgery Chronic hypotension on midodrine Chronic obstructive pulmonary disease Chronic anticoagulation Renal osteodystrophy Combined systolic and diastolic congestive heart failure Echo 10/2012: severe LV enlargement, moderate LV dysfunction with wall motion abnormality at the inferior basal segment, EF 44%, grade 2 diastolic dysfunction. Non-ischemic cardiomyopathy Negative cardiac catheterization showing no obstructive coronary disease in 2003 at [facility]. EF at that time was 20% but has improved to 54% in 02/2015. Chronic anemia History of blood transfusions. Hypothyroidism Gout Kidney stones Peptic ulcer (07/2003) Gastroesophageal reflux disease Deep venous thrombosis (02/2013) Paroxysmal atrial fibrillation s/p Watchman Obstructive sleep apnea End-stage renal disease on hemodialysis (09/2009) Type II diabetes mellitus Diet-controlled, Complicated by peripheral neuropathy and nephropathy. Asthma Diverticulosis Anxiety Hyperlipidemia Surgical History Surgical History Hx of cervical spine surgery C3-C6 laminectomies, C2-C7 instrumented posterior spinal fusion on 10/05/23 at [facility] Presence of Watchman left atrial appendage closure device 02/08/24 History of colonoscopy with polypectomy History of cardiac catheterization (08/20/13) Normal coronary arteries per Dr. Oliveros at [facility]. Status post creation of arteriovenous fistula Left forearm. History of parathyroidectomy History of cystoscopy (03/2012) History of sleeve gastrectomy (2013) History of cardiac radiofrequency ablation (1993) For SVT. History of mandibular surgery (1987) For TMJ. History of angioplasty History of myomectomy History of cholecystectomy (2014) History of section History of hysterectomy (1993) Family History Family History Mother Hypertension Family history of congestive heart failure Family history of congenital heart disease Family history of arthritis Family history of kidney disease Family history of chronic obstructive pulmonary disease Father Carcinoma of colon Sibling Family history of diabetes mellitus in first degree relative Grandparent Family history of congestive heart failure Diabetes mellitus Father Carcinoma of colon Mother Diabetes mellitus Acute myocardial infarction Hypertension Hyperlipidemia Grandparent Diabetes mellitus Acute myocardial infarction Stomach cancer Other Family history of cardiovascular disease Social History Social History Social History: Surrogate decision maker: Sara Tobin Code status: Full code. Smoking status: Never smoker Second hand tobacco smoke exposure: No Alcohol intake: never Substance use: never Substance use type: does not use Do You Feel Safe in your Home?: Yes Lack of Transportation: No Lack of Food: Sometimes True Current Housing: I Have Housing Concerned About Future Housing: No Difficulty Paying Gas/Electric Bills: No Difficulty Paying for Meds: No Currently Unemployed: No Education: Decline to Answer Difficulty w/ Childcare or Family Care: No Additional living arrangements comments: Lives in [place]. 3 grown children. 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 Spiritual care concerns: No Meds Home Medications and Allergies Home Medications ?Medication ?Instructions ?Recorded ?Confirmed ?Type calcium acetate(phosphat bind) 667 667 mg PO BIDWM #60 tabs 04/25/23 05/27/24 Rx mg tablet lidocaine 4 % topical patch 1 patch topical DAILY #30 ea 04/25/23 05/27/24 Rx (Lidocaine Pain Relief) vitamin B complex-vitamin C-folic 1 tablet PO DAILY #30 tabs 04/25/23 05/27/24 Rx acid 0.8 mg tablet (Dialyvite 800) acetaminophen 500 mg tablet 500 mg PO QID PRN Fever Or Pain 10/18/23 05/27/24 History cholecalciferol (vitamin D3) 25 3,000 unit PO DAILY 10/18/23 05/27/24 History mcg (1,000 unit) tablet (Vitamin D3) cinacalcet 30 mg tablet (Sensipar) 60 mg PO QMWF 10/18/23 05/27/24 History fluoxetine 10 mg capsule (Prozac) 10 mg PO DAILY 10/18/23 05/27/24 History midodrine 5 mg tablet 15 mg PO TIDWMEAL 10/18/23 05/27/24 History atorvastatin 40 mg tablet 40 mg PO HS 30 days #30 tabs 11/03/23 05/27/24 Rx digoxin 125 mcg (0.125 mg) tablet 125 mcg PO SuTh 30 days #9 tabs 11/03/23 05/27/24 Rx fluticasone propionate 50 2 spray intranasal DAILY 30 days 11/03/23 05/27/24 Rx mcg/actuation nasal #16 grams spray,suspension latanoprost 0.005 % eye drops 1 drp EACH EYE HS 30 days #2.5 mL 09/13/24 04/07/25 Rx (Xalatan) montelukast 10 mg tablet 10 mg PO HS 30 days #30 tabs 11/03/23 05/27/24 Rx (Singulair) oxycodone 5 mg tablet 5 mg PO Q6H PRN Pain Rated 4-10 11/03/23 05/27/24 Rx #28 tabs peg 101-lztflmhmvoyr-tstpxemy 1 1 drp EACH EYE TID PRN Dry Eyes 30 11/03/23 05/27/24 Rx %-0.2 %-0.2 % eye drops days #15 mL (Artificial Tears ([id number])) aspirin 81 mg tablet,delayed 81 mg PO DAILY 03/25/24 05/27/24 History release (Adult Aspirin Regimen) gabapentin 100 mg capsule 200 mg PO BID 03/25/24 05/27/24 History lanthanum 1,000 mg chewable tablet 1,000 mg PO .with meals 03/25/24 05/27/24 History omeprazole 20 mg capsule,delayed 20 mg PO BID 03/25/24 05/27/24 History release clopidogrel 75 mg tablet 75 mg PO DAILY 03/28/24 05/27/24 History albuterol sulfate 1.25 mg/3 mL 1.25 mg (3 mL) inhalation Q4H PRN 04/02/24 05/27/24 Rx solution for nebulization shortness of breath or wheezing #90 mL albuterol sulfate 90 mcg/actuation 2 inh inhalation Q4H PRN shortness 04/02/24 05/27/24 Rx aerosol inhaler (Ventolin HFA) of breath or wheezing #8.5 grams fluticasone propionate 220 2 puff inhalation Q12H #12 grams 04/02/24 05/27/24 Rx mcg/actuation HFA aerosol inhaler tizanidine 4 mg capsule 4 mg PO QHS PRN muscle spasticity 05/01/24 05/27/24 Rx #30 caps benzonatate 100 mg capsule 100 mg PO Q6H PRN cough 05/27/24 05/27/24 History metoprolol succinate 25 mg 25 mg PO DAILY 05/27/24 05/27/24 History tablet,extended release 24 hr Allergies Allergy/AdvReac Type Severity Reaction Status Date / Time lisinopril Allergy Unknown Unknown Verified 03/25/24 16:07 propoxyphene Allergy Unknown Unknown Verified 03/25/24 16:07 valsartan AdvReac Unknown lost voice Verified 05/28/24 07:31 Vital Signs Vital Signs - 24 hr 05/28/24 16:00 05/28/24 16:00 05/28/24 16:00 Temperature Pulse Rate 75 75 75 Respiratory Rate 20 20 Blood Pressure 111/81 111/81 Pulse Oximetry Oxygen Delivery Fraction of Inspired Oxygen 05/28/24 16:00 05/28/24 16:00 05/28/24 16:00 Temperature 35.9 C L Pulse Rate 75 75 75 Respiratory Rate 20 20 Blood Pressure 111/81 111/81 Pulse Oximetry 100 Oxygen Delivery Fraction of Inspired Oxygen 05/28/24 16:00 05/28/24 16:00 05/28/24 16:00 Temperature Pulse Rate 75 75 Respiratory Rate 20 Blood Pressure Pulse Oximetry 100 Oxygen Delivery Mechanical Ventilation Fraction of Inspired Oxygen 50 50 05/28/24 16:50 05/28/24 16:53 05/28/24 16:53 Temperature Pulse Rate 100 75 75 Respiratory Rate Blood Pressure 95/68 L 95/68 L Pulse Oximetry 79 L Oxygen Delivery Mechanical Ventilation Fraction of Inspired Oxygen 50 05/28/24 17:00 05/28/24 17:40 05/28/24 18:00 Temperature 36.2 C L Pulse Rate 89 78 72 Respiratory Rate 20 20 Blood Pressure 104/72 114/87 114/87 Pulse Oximetry 100 Oxygen Delivery Fraction of Inspired Oxygen 05/28/24 18:00 05/28/24 18:00 05/28/24 18:00 Temperature Pulse Rate 76 76 76 Respiratory Rate 20 20 Blood Pressure 114/87 Pulse Oximetry Oxygen Delivery Fraction of Inspired Oxygen 05/28/24 18:00 05/28/24 18:00 05/28/24 18:09 Temperature 36.2 C L Pulse Rate 89 75 78 Respiratory Rate 20 20 Blood Pressure 100/73 114/87 Pulse Oximetry 100 Oxygen Delivery Fraction of Inspired Oxygen 05/28/24 18:30 05/28/24 19:00 05/28/24 20:00 Temperature 36.0 C L Pulse Rate 75 73 80 Respiratory Rate 20 20 Blood Pressure 131/76 109/75 Pulse Oximetry 100 Oxygen Delivery Fraction of Inspired Oxygen 05/28/24 20:00 05/28/24 20:00 05/28/24 20:00 Temperature Pulse Rate 80 80 80 Respiratory Rate 20 20 Blood Pressure 100/75 100/75 Pulse Oximetry Oxygen Delivery Fraction of Inspired Oxygen 05/28/24 20:00 05/28/24 20:00 05/28/24 20:00 Temperature 36.0 C L Pulse Rate 80 108 H Respiratory Rate 20 Blood Pressure 100/75 88/70 L Pulse Oximetry 100 100 Oxygen Delivery Mechanical Ventilation Fraction of Inspired Oxygen 50 05/28/24 20:00 05/28/24 20:00 05/28/24 20:42 Temperature Pulse Rate 83 81 Respiratory Rate 20 Blood Pressure Pulse Oximetry Oxygen Delivery Fraction of Inspired Oxygen 50 05/28/24 20:42 05/28/24 21:00 05/28/24 21:11 Temperature 36.4 C L Pulse Rate 81 83 85 Respiratory Rate 20 20 Blood Pressure 106/86 106/86 Pulse Oximetry 100 Oxygen Delivery Fraction of Inspired Oxygen 05/28/24 21:15 05/28/24 22:00 05/28/24 22:00 Temperature Pulse Rate 90 82 82 Respiratory Rate 20 Blood Pressure 112/70 112/70 Pulse Oximetry 100 Oxygen Delivery Mechanical Ventilation Fraction of Inspired Oxygen 50 05/28/24 22:00 05/28/24 22:00 05/28/24 22:00 Temperature Pulse Rate 82 82 82 Respiratory Rate 20 20 Blood Pressure 112/70 Pulse Oximetry Oxygen Delivery Fraction of Inspired Oxygen 05/28/24 22:00 05/28/24 22:00 05/28/24 22:30 Temperature 36.5 C 36.5 C Pulse Rate 82 82 88 Respiratory Rate 20 20 Blood Pressure 112/70 103/77 Pulse Oximetry 100 100 Oxygen Delivery Fraction of Inspired Oxygen 05/28/24 23:00 05/28/24 23:15 05/28/24 23:45 Temperature 37.0 C 37.0 C Pulse Rate 89 87 Respiratory Rate 20 Blood Pressure 98/66 L Pulse Oximetry 100 100 Oxygen Delivery Mechanical Ventilation Fraction of Inspired Oxygen 40 05/29/24 00:00 05/29/24 00:00 05/29/24 00:00 Temperature 37.1 C Pulse Rate 94 93 Respiratory Rate 20 Blood Pressure 101/77 101/77 Pulse Oximetry 100 Oxygen Delivery Fraction of Inspired Oxygen 40 05/29/24 00:00 05/29/24 00:00 05/29/24 00:00 Temperature Pulse Rate 93 93 93 Respiratory Rate 20 20 Blood Pressure 101/77 101/77 Pulse Oximetry Oxygen Delivery Fraction of Inspired Oxygen 05/29/24 00:00 05/29/24 00:00 05/29/24 00:00 Temperature Pulse Rate 93 91 Respiratory Rate 20 Blood Pressure Pulse Oximetry 100 Oxygen Delivery Mechanical Ventilation Fraction of Inspired Oxygen 40 05/29/24 00:44 05/29/24 00:44 05/29/24 02:00 Temperature 37.4 C Pulse Rate 92 92 88 Respiratory Rate 20 Blood Pressure 85/55 L 85/55 L 102/64 Pulse Oximetry 100 Oxygen Delivery Fraction of Inspired Oxygen 05/29/24 02:00 05/29/24 02:00 05/29/24 02:00 Temperature Pulse Rate 88 100 88 Respiratory Rate 20 Blood Pressure 102/64 102/64 102/64 Pulse Oximetry Oxygen Delivery Fraction of Inspired Oxygen 05/29/24 02:00 05/29/24 02:00 05/29/24 02:00 Temperature Pulse Rate 88 88 88 Respiratory Rate 20 20 Blood Pressure Pulse Oximetry Oxygen Delivery Fraction of Inspired Oxygen 05/29/24 02:10 05/29/24 02:30 05/29/24 03:16 Temperature Pulse Rate 83 88 Respiratory Rate Blood Pressure 84/66 L Pulse Oximetry 100 100 Oxygen Delivery Mechanical Ventilation Mechanical Ventilation Fraction of Inspired Oxygen 35 40 05/29/24 04:00 05/29/24 04:00 05/29/24 04:00 Temperature 37.4 C Pulse Rate 99 99 100 Respiratory Rate 20 20 Blood Pressure 97/83 L 97/83 L Pulse Oximetry 100 Oxygen Delivery Fraction of Inspired Oxygen 05/29/24 04:00 05/29/24 04:00 05/29/24 04:00 Temperature Pulse Rate 94 94 94 Respiratory Rate 20 Blood Pressure 97/83 L 97/83 L Pulse Oximetry Oxygen Delivery Fraction of Inspired Oxygen 05/29/24 04:00 05/29/24 05:34 05/29/24 06:00 Temperature Pulse Rate 94 95 95 Respiratory Rate 20 Blood Pressure Pulse Oximetry 100 Oxygen Delivery Mechanical Ventilation Fraction of Inspired Oxygen 30 05/29/24 06:00 05/29/24 06:00 05/29/24 06:00 Temperature 37.4 C Pulse Rate 95 100 95 Respiratory Rate 20 20 Blood Pressure 90/64 L 90/64 L 90/64 L Pulse Oximetry 100 Oxygen Delivery Fraction of Inspired Oxygen 05/29/24 06:00 05/29/24 06:00 05/29/24 06:00 Temperature Pulse Rate 95 95 95 Respiratory Rate 20 20 Blood Pressure 90/64 L Pulse Oximetry Oxygen Delivery Fraction of Inspired Oxygen 05/29/24 06:15 05/29/24 06:45 05/29/24 06:45 Temperature Pulse Rate 94 97 97 Respiratory Rate 20 20 Blood Pressure 71/57 L 117/78 117/78 Pulse Oximetry Oxygen Delivery Fraction of Inspired Oxygen 05/29/24 07:00 05/29/24 07:15 05/29/24 07:30 Temperature 37.4 C 37.4 C 37.3 C Pulse Rate 100 96 94 Respiratory Rate 18 18 18 Blood Pressure 105/73 81/54 L 87/69 L Pulse Oximetry 96 96 96 Oxygen Delivery Fraction of Inspired Oxygen 05/29/24 07:45 05/29/24 08:00 05/29/24 08:00 Temperature 37.3 C Pulse Rate 93 91 92 Respiratory Rate 18 18 Blood Pressure 86/63 L Pulse Oximetry 96 98 Oxygen Delivery Mechanical Ventilation Fraction of Inspired Oxygen 30 05/29/24 08:00 05/29/24 08:00 05/29/24 08:02 Temperature 37.1 C Pulse Rate 92 92 Respiratory Rate 18 Blood Pressure 89/74 L 89/74 L Pulse Oximetry 97 Oxygen Delivery Fraction of Inspired Oxygen 30 05/29/24 08:05 05/29/24 08:05 05/29/24 08:06 Temperature Pulse Rate 97 97 97 Respiratory Rate 18 18 Blood Pressure 89/74 L Pulse Oximetry Oxygen Delivery Fraction of Inspired Oxygen 05/29/24 08:06 05/29/24 08:15 05/29/24 08:16 Temperature 37.2 C Pulse Rate 97 92 93 Respiratory Rate 19 Blood Pressure 89/74 L 100/74 100/74 Pulse Oximetry 97 Oxygen Delivery Fraction of Inspired Oxygen 05/29/24 08:16 05/29/24 08:30 05/29/24 08:45 Temperature 37.2 C Pulse Rate 93 95 92 Respiratory Rate 17 18 Blood Pressure 100/74 129/80 132/85 Pulse Oximetry 99 Oxygen Delivery Fraction of Inspired Oxygen 05/29/24 09:00 05/29/24 09:05 05/29/24 09:07 Temperature 37.2 C Pulse Rate 89 86 85 Respiratory Rate 24 H 24 H Blood Pressure 135/82 135/82 Pulse Oximetry 100 Oxygen Delivery Fraction of Inspired Oxygen 05/29/24 09:09 05/29/24 09:10 05/29/24 09:11 Temperature Pulse Rate 84 86 91 Respiratory Rate 30 H Blood Pressure 135/82 135/82 Pulse Oximetry Oxygen Delivery Fraction of Inspired Oxygen 05/29/24 09:15 05/29/24 09:30 05/29/24 09:45 Temperature 37.2 C 37.2 C 37.2 C Pulse Rate 86 91 89 Respiratory Rate 26 H 19 16 Blood Pressure 120/76 147/77 H 146/75 H Pulse Oximetry 98 98 98 Oxygen Delivery Fraction of Inspired Oxygen 05/29/24 09:46 05/29/24 10:00 05/29/24 10:00 Temperature 37.2 C Pulse Rate 91 89 92 Respiratory Rate 18 Blood Pressure 141/86 H Pulse Oximetry 98 100 Oxygen Delivery Mechanical Ventilation Fraction of Inspired Oxygen 30 05/29/24 10:00 05/29/24 10:00 05/29/24 10:00 Temperature 37.2 C Pulse Rate 92 92 92 Respiratory Rate 18 18 Blood Pressure 141/86 H 141/86 H Pulse Oximetry 100 Oxygen Delivery Fraction of Inspired Oxygen 05/29/24 10:00 05/29/24 10:03 05/29/24 10:05 Temperature Pulse Rate 92 91 91 Respiratory Rate 18 18 Blood Pressure 141/86 H 141/86 H Pulse Oximetry Oxygen Delivery Fraction of Inspired Oxygen 05/29/24 10:15 05/29/24 10:30 05/29/24 10:45 Temperature 37.2 C 37.2 C 37.1 C Pulse Rate 86 84 84 Respiratory Rate 18 18 18 Blood Pressure 128/76 102/72 123/76 Pulse Oximetry 98 98 99 Oxygen Delivery Fraction of Inspired Oxygen 05/29/24 11:00 05/29/24 11:15 05/29/24 11:20 Temperature 37.0 C 37.0 C Pulse Rate 82 82 81 Respiratory Rate 18 18 Blood Pressure 126/79 126/81 126/81 Pulse Oximetry 97 97 Oxygen Delivery Fraction of Inspired Oxygen 05/29/24 11:25 05/29/24 11:30 05/29/24 11:45 Temperature 37.0 C 37.0 C Pulse Rate 92 97 104 H Respiratory Rate 18 21 H 25 H Blood Pressure 134/90 146/92 H Pulse Oximetry 97 95 Oxygen Delivery Fraction of Inspired Oxygen 05/29/24 12:00 05/29/24 12:00 05/29/24 12:00 Temperature 37.1 C 37.1 C Pulse Rate 96 104 H 88 Respiratory Rate 19 24 H 24 H Blood Pressure 148/101 H 148/101 H Pulse Oximetry 95 95 95 Oxygen Delivery Mechanical Ventilation Fraction of Inspired Oxygen 30 05/29/24 12:00 05/29/24 12:00 05/29/24 12:00 Temperature Pulse Rate 96 101 H Respiratory Rate Blood Pressure 148/101 H Pulse Oximetry Oxygen Delivery Fraction of Inspired Oxygen 30 05/29/24 12:00 05/29/24 12:02 05/29/24 12:15 Temperature 37.2 C Pulse Rate 104 H 109 H 88 Respiratory Rate 20 Blood Pressure 148/101 H 148/101 H 106/69 Pulse Oximetry 95 Oxygen Delivery Fraction of Inspired Oxygen 05/29/24 12:30 05/29/24 12:45 05/29/24 12:45 Temperature 37.2 C 37.2 C Pulse Rate 81 87 88 Respiratory Rate 19 24 H Blood Pressure 142/67 H 123/80 123/80 Pulse Oximetry 96 95 Oxygen Delivery Fraction of Inspired Oxygen 05/29/24 13:47 05/29/24 14:00 05/29/24 14:00 Temperature 37.4 C Pulse Rate 95 104 H 104 H Respiratory Rate 23 H Blood Pressure 123/80 Pulse Oximetry 96 96 Oxygen Delivery Mechanical Ventilation Fraction of Inspired Oxygen 30 05/29/24 14:00 05/29/24 14:05 05/29/24 14:05 Temperature Pulse Rate 104 H 104 H 104 H Respiratory Rate Blood Pressure 123/80 123/80 123/80 Pulse Oximetry Oxygen Delivery Fraction of Inspired Oxygen 05/29/24 14:30 05/29/24 14:30 05/29/24 14:45 Temperature 37.4 C Pulse Rate 82 77 Respiratory Rate 18 Blood Pressure 103/72 115/80 Pulse Oximetry Oxygen Delivery Fraction of Inspired Oxygen 05/29/24 15:00 Temperature Pulse Rate 95 Respiratory Rate Blood Pressure 105/72 Pulse Oximetry Oxygen Delivery Fraction of Inspired Oxygen Exam Narrative: on examination today patient is laying in bed intermittently seizuring, intubated and sedated, head normocephalic, no spontaneous movements of the upper and lower extremities except every few minutes she is seizing with clonic activity of both upper and lower extremity she does not respond to any verbal or mechanical stimuli and deep tendon reflexes could not be elicited plantar responses were upgoing. Patient's family happened to be here they wanted to discuss Results Labs 05/29/24 10:18 05/29/24 10:00 Labs: Short CBC 05/29/24 Range/Units 10:18 WBC 17.6 H (4.5-10.0) K/mm3 Hgb 7.9 L (12.0-15.0) g/dL Hct 26.3 L (37.0-47.0) % Plt Count 255 (150-375) k/mm3 BMP 05/28/24 05/29/24 05/29/24 16:06 06:43 10:00 Sodium 136 L 133 L 133 L Potassium 3.8 3.8 4.1 Chloride 95 L 93 L 93 L Carbon Dioxide 26 25 26 BUN 36 H 38 H 39 H Creatinine 6.78 H 7.27 H 7.61 H Glucose 177 H 167 H 186 H Calcium 9.0 8.5 8.5 Cardiac Enzymes 05/28/24 05/28/24 05/29/24 Range/Units 16:06 20:55 06:43 Total Creatine Kinase 596 H 463 H 286 H (30-135) U/L 05/29/24 Range/Units 10:00 Total Creatine Kinase 279 H (30-135) U/L Liver Function 05/29/24 Range/Units 10:00 Total Bilirubin 0.5 (0.2-1.3) mg/dL AST 151 H (14-36) U/L ALT 126 H (6-35) U/L Alkaline Phosphatase 149 H (38-126) U/L Albumin 3.0 L (3.5-5.1) g/dL
[2024-05-29] MEDS: NOREPINEPHRINE 8 MG/D5W 250 ML 8 MG/250 ML BAG 45 MG IV CONT (16:48)
[2024-05-29] MEDS: EPOETIN ALFA-EPBX 10,000 UNITS/ML VIAL 10000 UNITS IV PUSH (17:22)
[2024-05-29] MEDS: levETIRAcetam 1000MG/NACL100ML 1,000 MG/100 ML BAG 400 MG IVPB ×2 (17:35→23:31)
[2024-05-29] MEDS: CEFEPIME 1 GM/NS 50 ML 1 GM/50 ML BAG IVPB (17:35)
[2024-05-29 17:49] LABS: Glucose Point of Care 138 mg/dl (65-105)
[2024-05-29] MEDS: IPRATROPIUM 0.5 MG/ALBUTEROL SULFATE 2.5 MG AMPUL.NEB 3 ML INHALATION (20:07)
[2024-05-29 21:20] LABS: Glucose Point of Care 185 mg/dl (65-105)
[2024-05-29] MEDS: NOREPINEPHRINE 8 MG/D5W 250 ML 8 MG/250 ML BAG 35.63 MG IV CONT (21:58)
[2024-05-29] MEDS: AMIODARONE 150 MG/D5W 100 ML 150 MG/100 ML BAG 600 MG IV CONT (22:55)
[2024-05-29] MEDS: AMIODARONE 360 MG/D5W 200 ML 360 MG/200 ML BAG 33.33 MG IV CONT (23:06)
--- NOTE | 2024-05-29 23:13 | ECG_ITS ---
Test Date: 2024-05-29 23:19:33 Measurements Intervals [place] Rate: 133 P: 65 [place]: 192 QRS: -54 QRSD: 141 T: 99 QT: 407 QTc: 606 Interpretive Statements ATRIAL FLUTTER/TACHYCARDIA WITH RAPID VENTRICLAR RESPONSE LEFT AXIS DEVIATION LEFT BUNDLE BRANCH BLOCK ABNORMAL ECG Compared to ECG 05/29/2024 15:16:51 ATRIAL FLUTTER/TACHYCARDIA NOW PRESENT Electronically Signed On 05-30-2024 05:30:57 CDT by Heath Grande D.O.
[2024-05-30] VITALS (27 sets, daily range): BP systolic 61–109; BP diastolic 39–73; PULSE 71–137; RESP 18–30; TEMP 36.5–38.2; O2SAT 82–100
[2024-05-30 00:12] LABS: Anion Gap 17 mmol/L (4-12); Blood Urea Nitrogen 16 mg/dL (7-17); Calcium 8.3 mg/dL (8.4-10.2); Carbon Dioxide 24 mmol/L (22-30); Chloride 92 mmol/L (98-107); Estimated CRCL calculation 12 ml/min; Estimated Glomerular Filt Rate 12; Glucose 301 mg/dL (65-110); Magnesium 1.8 mg/dL (1.6-2.3); Potassium 3.8 mmol/L (3.4-5.0); Sodium 133 mmol/L (137-145)
[2024-05-30] MEDS: MAGNESIUM SULF 2 GM/WATER 50ML 2 GM/50 ML BAG IVPB (00:53)
[2024-05-30] MEDS: POTASSIUM CHLORIDE 20 MEQ PACKET (FOR LIQUID) FEED TUBE (00:53)
[2024-05-30] MEDS: ACETAMINOPHEN ELIXIR 325 MG/10.15 ML UDC 650 MG FEED TUBE (02:00)
[2024-05-30] MEDS: SODIUM CHLORIDE 0.9% IV 500 ML 999 ML IV CONT (02:20)
[2024-05-30] MEDS: EPINEPHrine INJ 1 MG in DEXTROSE 5% IN WATER 250 ML 15.06 MG IV CONT (02:28)
[2024-05-30] MEDS: metroNIDAZOLE 500 MG/ISO 100ML 500 MG/100 ML BAG 100 MG IVPB (03:07)
[2024-05-30] MEDS: INSULIN ASPART (*BKC) 100 UNITS/ML SUB-Q ×2 (03:31→08:25)
[2024-05-30] MEDS: PHENYLEPHRINE HCL INJ 50 MG in DEXTROSE 5% IN WATER 250 ML/245 ML BAG 12 ML IV CONT (03:32)
[2024-05-30 03:37] LABS: Glucose Point of Care 232 mg/dl (65-105)
[2024-05-30] MEDS: NOREPINEPHRINE 8 MG/D5W 250 ML 8 MG/250 ML BAG 56.25 MG IV CONT ×2 (04:00→08:23)
[2024-05-30] MEDS: EPINEPHrine INJ 1 MG in DEXTROSE 5% IN WATER 250 ML 150.6 MG IV CONT ×3 (04:00→07:41)
[2024-05-30 04:04] LABS: Mean Corpuscular HGB Conc 29.8 g/dl (32-36); Mean Corpuscular Hemoglobin 26.9 pg (26-34); Mean Corpuscular Volume 90.4 fl (80-100); Mean Platelet Volume 10.7 fl (7.4-10.4); Platelet Count Result 261 k/mm3 (150-375); Red Blood Count 1.97 M/mm3 (4.2-5.4); Red Cell Distribution Width 17.3 % (11.5-14.5); White Blood Count 21.8 K/mm3 (4.5-10.0)
[2024-05-30 04:17] LABS: Alanine Aminotransferase 93 U/L (6-35); Albumin Level 2.7 g/dL (3.5-5.1); Alkaline Phosphatase 105 U/L (38-126); Anion Gap 18 mmol/L (4-12); Aspartate Amino Transferase 131 U/L (14-36); Bilirubin,Total 0.4 mg/dL (0.2-1.3); Blood Urea Nitrogen 18 mg/dL (7-17); Calcium 7.9 mg/dL (8.4-10.2); Carbon Dioxide 20 mmol/L (22-30); Chloride 93 mmol/L (98-107); Estimated CRCL calculation 11 ml/min; Estimated Glomerular Filt Rate 11; Glucose 324 mg/dL (65-110); Magnesium 2.4 mg/dL (1.6-2.3); Phosphorus 4.4 mg/dL (2.5-4.5); Potassium 3.8 mmol/L (3.4-5.0); Sodium 131 mmol/L (137-145)
[2024-05-30 04:21] LABS: Hematocrit 17.8 % (37.0-47.0); Hemoglobin 5.3 g/dL (12.0-15.0)
[2024-05-30] MEDS: CENTRAL LINE FLUSH 10 ML IV PUSH (07:35)
[2024-05-30] MEDS: levETIRAcetam 1000MG/NACL100ML 1,000 MG/100 ML BAG 400 MG IVPB (08:10)
[2024-05-30] MEDS: ASPIRIN 325 MG TABLET FEED TUBE (08:20)
[2024-05-30] MEDS: PANTOPRAZOLE SODIUM IV 40 MG VIAL IV PUSH (08:20)
[2024-05-30] MEDS: CLOPIDOGREL BISULFATE 75 MG TABLET FEED TUBE (08:20)
[2024-05-30] MEDS: INSULIN GLARGINE (*BKC) 100 UNITS/ML 20 UNITS SUB-Q (08:20)
[2024-05-30] MEDS: MINERAL OIL/WHITE PETROLATUM OINTMENT 1 APPLIC EACH EYE (08:20)
[2024-05-30] MEDS: AMIODARONE 360 MG/D5W 200 ML 360 MG/200 ML BAG 16.67 MG IV CONT (08:21)
[2024-05-30 08:27] LABS: Glucose Point of Care 279 mg/dl (65-105)
--- NOTE | 2024-05-30 08:52 | WPDINTPN ---
Progress Note: A&P Assessment and Plan (1) Acute respiratory failure with hypoxia: Code(s): J96.01 - Acute respiratory failure with hypoxia Status: Acute Assessment and Plan: Acute Respiratory failure secondary to cardiac arrest, aspiration pneumonia, pulmonary edema, Patient now intubated and on mechanical ventilation Ventilator settings reviewed currently on 30% FiO2 and 5 of PEEP. Peep was dropped due to pneumothorax 05/29 chest x-ray showed right-sided pneumothorax a chest CT was done to confirm and showed right-sided small to moderate pneumothorax Status post chest tube insertion on the right side. Follow-up chest x-rays pain ABG reviewed Negative flu RSV and COVID PCR P.r.n. bronchodilators Blood cultures and sputum culture sent and pending MRSA screen negative Currently on empiric cefepime and Flagyl. Will discontinue vancomycin Chest x-ray was done overnight to rule out recurrence of pneumothorax in light of worsening hypotension (2) Anoxic brain injury: Code(s): G93.1 - Anoxic brain damage, not elsewhere classified Status: Acute Assessment and Plan: Patient has sustained anoxic brain injury secondary to cardiac arrest as per exam of a mention Patient completed her therapeutic hypothermia protocol and was rewarmed and exhibited signs of anoxic brain injury with myoclonic jerking She had spontaneous respiratory effort but no response to pain. Overnight she was resumed on propofol taken to tachypnea and myoclonic jerking and I reassessed her this morning after holding propofol. Exam as above Head CT was negative on presentation and05/29 Currently on Keppra and Depakote Patient was evaluated by Neurology EEG was ordered and pending (3) Cardiac arrest: Code(s): I46.9 - Cardiac arrest, cause unspecified Status: Acute Assessment and Plan: Patient presented with VFib cardiac arrest. She has a background history of nonischemic cardiomyopathy, AFib status post Watchman procedure. She also has elevated troponin CTA was negative for PE at the time of presentation She was given amiodarone bolus and started on amiodarone infusion She had 2 episodes of VFib events overnight requiring DC defibrillation Echocardiogram done today shows EF of 20-25% with severely go be reduced function. Diastolic dysfunction severe aortic sclerosis and moderate aortic stenosis. [id number] MR Patient was evaluated by Cardiology no further recommendations at this time Serial troponin were done EKG reviewed 05/29 I spoke to patient's outpatient editing computer publisher Dr. Flores and updated him with patient's presentation, hospital course and current treatment plan. He agreed with the current management plan and did not had any new recommendations 05/30 2 episodes of V-tach overnight requiring CPR and epinephrine. Patient converted before she could be shock. Patient was given additional amiodarone bolus and amiodarone infusion was changed to 1 milligram/minute Echo Summary 1. Definity contrast administered improved wall motion interpretation. 2. Left ventricular chamber dimension is severely enlarged. 3. Left ventricular systolic function is severely globally reduced, estimated at 20-25%. 4. There is mild concentric increased left ventricular wall thickness. 5. The left ventricular diastolic function is abnormal. 6. E/e' 23 is significantly elevated. 7. Left atrial chamber dimension is severely enlarged. 8. There is severe aortic valve sclerosis. 9. There is moderate aortic valve stenosis with a peak velocity of 155.81 cm/s, mean gradient of 5 mmHg, and aortic valve area of 1.29 cm2. 10. There is mild to moderate mitral valve regurgitation. 11. There is mild tricuspid valve regurgitation. 12. No pulmonary hypertension, estimated pulmonary arterial systolic pressure is 27 mmHg. (4) Non-ischemic cardiomyopathy: Code(s): I42.8 - Other cardiomyopathies Status: Acute Assessment and Plan: See above (5) Combined systolic and diastolic congestive heart failure: Code(s): I50.40 - Unspecified combined systolic (congestive) and diastolic (congestive) heart failure Status: Acute Assessment and Plan: See above (6) Paroxysmal atrial fibrillation: Code(s): I48.0 - Paroxysmal atrial fibrillation Status: Acute Assessment and Plan: Status post Watchman procedure Not on anticoagulation likely secondary to history of GI bleed Continue aspirin Plavix Amiodarone infusion (7) Hyperlipidemia: Code(s): E78.5 - Hyperlipidemia, unspecified Status: Acute Assessment and Plan: Hold statin due to elevated liver enzyme which are likely secondary to shock liver (8) End-stage renal disease on hemodialysis: Onset Date: 09/2009 Code(s): N18.6 - End stage renal disease; Z99.2 - Dependence on renal dialysis Status: Acute Assessment and Plan: Consult nephrology for hemodialysis Patient was dialyzed on 05/29 (9) Chronic anemia: Code(s): D64.9 - Anemia, unspecified Status: Chronic Assessment and Plan: Hemoglobin low. 2 units of PRBC were ordered. Patient has not received transfusion yet because she has antibodies and there was delay in obtaining blood (10) CVA (cerebral vascular accident): Code(s): I63.9 - Cerebral infarction, unspecified Status: Acute Assessment and Plan: Continue aspirin Plavix. Hold statin (11) Chronic obstructive pulmonary disease: Code(s): J44.9 - Chronic obstructive pulmonary disease, unspecified Status: Acute Assessment and Plan: See above (12) Aspiration pneumonia: Code(s): J69.0 - Pneumonitis due to inhalation of food and vomit Status: Acute Assessment and Plan: See above (13) Pulmonary edema: Code(s): J81.1 - Chronic pulmonary edema Status: Acute Assessment and Plan: Will need hemodialysis once stabilized (14) Ventricular fibrillation: Code(s): I49.01 - Ventricular fibrillation Status: Acute Assessment and Plan: See above Plan DVT prophylaxis -Lovenox Stress ulcer prophylaxis -PPI Nutrition -currently on tube feed Code Status -comfort care I had a long meeting with patient's 3 daughters and son and conference room and we went over patient's presentation, hospital course and current critical says multiorgan failure with anoxic brain injury, cardiomyopathy, recurrent V-tach, and stated in disease, aspiration pneumonia and worsening shock. We discussed goals of care and code status. I discussed options of comfort care and palliative extubation. Day have been at bedside since patient was admitted and has witnessed her gradual deterioration and neurological exam. They have discussed among themselves and have decided decided, in accordance with pt's wishes, to discontinue all medical therapy and institute comfort measures only. I will use opioids, anxiolytics and other agents on as needed basis to promote comfort and discontinue all medical therapy, lab testing and invasive monitoring. I have explained them that patient will eventually . They have verbalized understanding and agreed to proceed. I have notified hospitalist physician. Total Critical Care Time - 40 minutes Due to a high probability of clinically significant, life threatening deterioration, the patient required my highest level of preparedness to intervene emergently and I personally spent this critical care time directly and personally managing the patient. This critical care time included obtaining a history; examining the patient; pulse oximetry; ordering and review of studies; arranging urgent treatment with development of a management plan; evaluation of patient's response to treatment; frequent reassessment; and discussions with other providers. It was exclusive of separately billable procedures and treating other patients and teaching time. Please see Assessment and Plan section and the rest of the note for further information on patient assessment and treatment Subjective Date/time seen: 05/30/24 Overnight events reviewed. Patient had 2 episodes of V-tach requiring CPR and epinephrine. Patient converted before she could be given DC shock Patient had worsening shock requiring increased dose of pressor pressors and patient is currently on Hoover different vasopressor Her hemoglobin had dropped and PRBC units were ordered but due to antibodies there was a delay in obtaining blood Patient was given fluid bolus Patient is on propofol for tachypnea and myoclonic jerking She remains anuric Tolerating tube feeds at 20 mL/hour Review of Systems Review of Systems: ROS unobtainable: Yes unobtainable due to endotracheal tube, unobtainable due to medical condition and unobtainable due to mental status Exam Narrative: General: Pt is was just sedated, chemically paralyzed, intubated and on mechanical ventilation. Lungs/Chest: Trachea central Coarse BS B/L, bibasilar crackle Cardiac: RRR. Normal S1 S2. No murmurs tachycardia Circulation: Feet are cold Abdomen: Decreased bowel sounds. Soft. NT. ND. Extremities: No clubbing, cyanosis or edema. Warm : Hoover in place Neurologic: Patient is currently sedated and paralyzed with Nimbex, PERRL sluggish, Objective Data Vital Signs Vital Signs: Vital Signs - 24 hr 05/29/24 09:00 05/29/24 09:05 05/29/24 09:07 Temperature 37.2 C Pulse Rate 89 86 85 Respiratory Rate 24 H 24 H Blood Pressure 135/82 135/82 Pulse Oximetry 100 Oxygen Delivery Fraction of Inspired Oxygen 05/29/24 09:09 05/29/24 09:10 05/29/24 09:11 Temperature Pulse Rate 84 86 91 Respiratory Rate 30 H Blood Pressure 135/82 135/82 Pulse Oximetry Oxygen Delivery Fraction of Inspired Oxygen 05/29/24 09:15 05/29/24 09:30 05/29/24 09:45 Temperature 37.2 C 37.2 C 37.2 C Pulse Rate 86 91 89 Respiratory Rate 26 H 19 16 Blood Pressure 120/76 147/77 H 146/75 H Pulse Oximetry 98 98 98 Oxygen Delivery Fraction of Inspired Oxygen 05/29/24 09:46 05/29/24 10:00 05/29/24 10:00 Temperature 37.2 C Pulse Rate 91 89 92 Respiratory Rate 18 Blood Pressure 141/86 H Pulse Oximetry 98 100 Oxygen Delivery Mechanical Ventilation Fraction of Inspired Oxygen 30 05/29/24 10:00 05/29/24 10:00 05/29/24 10:00 Temperature 37.2 C Pulse Rate 92 92 92 Respiratory Rate 18 18 Blood Pressure 141/86 H 141/86 H Pulse Oximetry 100 Oxygen Delivery Fraction of Inspired Oxygen 05/29/24 10:00 05/29/24 10:03 05/29/24 10:05 Temperature Pulse Rate 92 91 91 Respiratory Rate 18 18 Blood Pressure 141/86 H 141/86 H Pulse Oximetry Oxygen Delivery Fraction of Inspired Oxygen 05/29/24 10:15 05/29/24 10:30 05/29/24 10:45 Temperature 37.2 C 37.2 C 37.1 C Pulse Rate 86 84 84 Respiratory Rate 18 18 18 Blood Pressure 128/76 102/72 123/76 Pulse Oximetry 98 98 99 Oxygen Delivery Fraction of Inspired Oxygen 05/29/24 11:00 05/29/24 11:15 05/29/24 11:20 Temperature 37.0 C 37.0 C Pulse Rate 82 82 81 Respiratory Rate 18 18 Blood Pressure 126/79 126/81 126/81 Pulse Oximetry 97 97 Oxygen Delivery Fraction of Inspired Oxygen 05/29/24 11:25 05/29/24 11:30 05/29/24 11:45 Temperature 37.0 C 37.0 C Pulse Rate 92 97 104 H Respiratory Rate 18 21 H 25 H Blood Pressure 134/90 146/92 H Pulse Oximetry 97 95 Oxygen Delivery Fraction of Inspired Oxygen 05/29/24 12:00 05/29/24 12:00 05/29/24 12:00 Temperature 37.1 C 37.1 C Pulse Rate 96 104 H 88 Respiratory Rate 19 24 H 24 H Blood Pressure 148/101 H 148/101 H Pulse Oximetry 95 95 95 Oxygen Delivery Mechanical Ventilation Fraction of Inspired Oxygen 05/29/24 12:00 05/29/24 12:00 05/29/24 12:00 Temperature Pulse Rate 96 101 H Respiratory Rate Blood Pressure 148/101 H Pulse Oximetry Oxygen Delivery Fraction of Inspired Oxygen 30 05/29/24 12:00 05/29/24 12:02 05/29/24 12:15 Temperature 37.2 C Pulse Rate 104 H 109 H 88 Respiratory Rate 20 Blood Pressure 148/101 H 148/101 H 106/69 Pulse Oximetry 95 Oxygen Delivery Fraction of Inspired Oxygen 05/29/24 12:30 05/29/24 12:45 05/29/24 12:45 Temperature 37.2 C 37.2 C Pulse Rate 81 87 88 Respiratory Rate 19 24 H Blood Pressure 142/67 H 123/80 123/80 Pulse Oximetry 96 95 Oxygen Delivery Fraction of Inspired Oxygen 05/29/24 13:47 05/29/24 14:00 05/29/24 14:00 Temperature 37.4 C Pulse Rate 95 104 H 104 H Respiratory Rate 23 H Blood Pressure 123/80 Pulse Oximetry 96 96 Oxygen Delivery Mechanical Ventilation Fraction of Inspired Oxygen 30 05/29/24 14:00 05/29/24 14:05 05/29/24 14:05 Temperature Pulse Rate 104 H 104 H 104 H Respiratory Rate Blood Pressure 123/80 123/80 123/80 Pulse Oximetry Oxygen Delivery Fraction of Inspired Oxygen 05/29/24 14:30 05/29/24 14:30 05/29/24 14:45 Temperature 37.4 C Pulse Rate 82 77 Respiratory Rate 18 Blood Pressure 103/72 115/80 Pulse Oximetry Oxygen Delivery Fraction of Inspired Oxygen 30 05/29/24 15:00 05/29/24 15:15 05/29/24 15:30 Temperature Pulse Rate 95 122 H 124 H Respiratory Rate Blood Pressure 105/72 121/92 H 106/54 L Pulse Oximetry Oxygen Delivery Fraction of Inspired Oxygen 05/29/24 15:45 05/29/24 16:00 05/29/24 16:00 Temperature Pulse Rate 127 H 109 H 96 Respiratory Rate 18 Blood Pressure 121/103 H 59/43 L Pulse Oximetry 96 Oxygen Delivery Mechanical Ventilation Fraction of Inspired Oxygen 30 05/29/24 16:00 05/29/24 16:00 05/29/24 16:00 Temperature 37.4 C Pulse Rate 94 94 Respiratory Rate 24 H Blood Pressure 75/54 L Pulse Oximetry 98 Oxygen Delivery Fraction of Inspired Oxygen 30 05/29/24 16:00 05/29/24 16:01 05/29/24 16:05 Temperature Pulse Rate 110 H 107 H 104 H Respiratory Rate Blood Pressure 59/43 L 59/43 L 75/54 L Pulse Oximetry Oxygen Delivery Fraction of Inspired Oxygen 05/29/24 16:09 05/29/24 16:15 05/29/24 16:15 Temperature Pulse Rate 100 91 99 Respiratory Rate Blood Pressure 89/74 L 79/62 L 79/62 L Pulse Oximetry Oxygen Delivery Fraction of Inspired Oxygen 05/29/24 16:30 05/29/24 16:31 05/29/24 16:45 Temperature Pulse Rate 96 101 H 109 H Respiratory Rate Blood Pressure 105/72 105/72 112/65 Pulse Oximetry Oxygen Delivery Fraction of Inspired Oxygen 05/29/24 16:48 05/29/24 17:00 05/29/24 17:03 Temperature Pulse Rate 96 108 H 109 H Respiratory Rate Blood Pressure 112/65 95/51 L Pulse Oximetry 97 Oxygen Delivery Mechanical Ventilation Fraction of Inspired Oxygen 30 05/29/24 17:15 05/29/24 17:30 05/29/24 17:45 Temperature Pulse Rate 129 H 131 H 109 H Respiratory Rate Blood Pressure 104/77 195/166 H 73/44 L Pulse Oximetry Oxygen Delivery Fraction of Inspired Oxygen 05/29/24 17:48 05/29/24 17:48 05/29/24 18:00 Temperature Pulse Rate 155 H 107 H 104 H Respiratory Rate 33 H Blood Pressure 73/44 L Pulse Oximetry Oxygen Delivery Fraction of Inspired Oxygen 05/29/24 18:00 05/29/24 18:00 05/29/24 18:00 Temperature 37.5 C Pulse Rate 104 H 104 H 105 H Respiratory Rate 23 H Blood Pressure 89/63 L 89/63 L 89/63 L Pulse Oximetry 96 Oxygen Delivery Fraction of Inspired Oxygen 05/29/24 18:15 05/29/24 18:21 05/29/24 18:28 Temperature 37.4 C Pulse Rate 100 101 H 100 Respiratory Rate 18 Blood Pressure 90/68 L 98/72 L Pulse Oximetry Oxygen Delivery Fraction of Inspired Oxygen 05/29/24 19:30 05/29/24 20:00 05/29/24 20:00 Temperature Pulse Rate 89 108 H 108 H Respiratory Rate 21 H Blood Pressure 131/71 139/92 H Pulse Oximetry Oxygen Delivery Fraction of Inspired Oxygen 05/29/24 20:00 05/29/24 20:00 05/29/24 20:00 Temperature 37.3 C Pulse Rate 108 H 108 H 108 H Respiratory Rate 21 H Blood Pressure 139/92 H 139/92 H Pulse Oximetry 98 Oxygen Delivery Fraction of Inspired Oxygen 05/29/24 20:00 05/29/24 20:00 05/29/24 20:00 Temperature Pulse Rate 97 Respiratory Rate Blood Pressure 139/92 H Pulse Oximetry 99 Oxygen Delivery Mechanical Ventilation Fraction of Inspired Oxygen 30 30 05/29/24 20:07 05/29/24 20:07 05/29/24 20:45 Temperature Pulse Rate 101 H 101 H 91 Respiratory Rate 24 H Blood Pressure 147/85 H Pulse Oximetry 99 Oxygen Delivery Mechanical Ventilation Fraction of Inspired Oxygen 30 05/29/24 20:45 05/29/24 20:52 05/29/24 21:15 Temperature Pulse Rate 91 98 108 H Respiratory Rate Blood Pressure 147/85 H 133/87 153/95 H Pulse Oximetry Oxygen Delivery Fraction of Inspired Oxygen 05/29/24 21:45 05/29/24 21:58 05/29/24 21:58 Temperature Pulse Rate 101 H 106 H 106 H Respiratory Rate Blood Pressure 144/84 H 134/75 134/75 Pulse Oximetry Oxygen Delivery Fraction of Inspired Oxygen 05/29/24 22:00 05/29/24 22:00 05/29/24 22:00 Temperature Pulse Rate 104 H 102 H 102 H Respiratory Rate 18 Blood Pressure 134/75 134/75 Pulse Oximetry Oxygen Delivery Fraction of Inspired Oxygen 05/29/24 22:00 05/29/24 22:00 05/29/24 22:00 Temperature 37.6 C Pulse Rate 102 H 102 H 105 H Respiratory Rate 18 Blood Pressure 134/75 134/75 Pulse Oximetry 100 Oxygen Delivery Fraction of Inspired Oxygen 05/29/24 22:15 05/29/24 22:55 05/29/24 23:06 Temperature Pulse Rate 111 H 90 112 H Respiratory Rate Blood Pressure 123/76 135/63 135/63 Pulse Oximetry Oxygen Delivery Fraction of Inspired Oxygen 05/29/24 23:06 05/30/24 00:00 05/30/24 00:00 Temperature Pulse Rate 112 H 114 H 113 H Respiratory Rate 18 Blood Pressure 135/63 109/61 Pulse Oximetry Oxygen Delivery Fraction of Inspired Oxygen 05/30/24 00:00 05/30/24 00:00 05/30/24 00:00 Temperature Pulse Rate 113 H 113 H Respiratory Rate Blood Pressure 109/61 109/61 Pulse Oximetry Oxygen Delivery Fraction of Inspired Oxygen 30 05/30/24 00:00 05/30/24 00:00 05/30/24 00:00 Temperature 37.9 C H Pulse Rate 112 H 113 H Respiratory Rate 18 Blood Pressure 109/61 Pulse Oximetry 99 98 Oxygen Delivery Mechanical Ventilation Fraction of Inspired Oxygen 30 05/30/24 00:53 05/30/24 01:16 05/30/24 01:45 Temperature Pulse Rate 123 H 128 H 114 H Respiratory Rate Blood Pressure 91/64 L 80/52 L Pulse Oximetry 100 Oxygen Delivery Mechanical Ventilation Fraction of Inspired Oxygen 30 05/30/24 02:00 05/30/24 02:00 05/30/24 02:00 Temperature 38.2 C H Pulse Rate 113 H 116 H Respiratory Rate 21 H Blood Pressure 80/52 L Pulse Oximetry Oxygen Delivery Fraction of Inspired Oxygen 05/30/24 02:00 05/30/24 02:00 05/30/24 02:00 Temperature 38.1 C H Pulse Rate 116 H 116 H 121 H Respiratory Rate 25 H Blood Pressure 67/55 L 67/55 L 67/55 L Pulse Oximetry 100 Oxygen Delivery Fraction of Inspired Oxygen 05/30/24 02:28 05/30/24 02:31 05/30/24 02:34 Temperature Pulse Rate 115 H 128 H 131 H Respiratory Rate Blood Pressure 76/58 L 77/54 L 78/61 L Pulse Oximetry Oxygen Delivery Fraction of Inspired Oxygen 05/30/24 02:35 05/30/24 02:37 05/30/24 02:40 Temperature Pulse Rate 117 H 137 H 131 H Respiratory Rate Blood Pressure 77/58 L 79/56 L Pulse Oximetry 100 Oxygen Delivery Mechanical Ventilation Fraction of Inspired Oxygen 30 05/30/24 02:55 05/30/24 03:32 05/30/24 03:45 Temperature 37.7 C H Pulse Rate 101 H 99 Respiratory Rate Blood Pressure 84/56 L 83/63 L Pulse Oximetry Oxygen Delivery Fraction of Inspired Oxygen 05/30/24 04:00 05/30/24 04:00 05/30/24 04:00 Temperature Pulse Rate 94 97 97 Respiratory Rate 23 H Blood Pressure 102/73 102/73 Pulse Oximetry Oxygen Delivery Fraction of Inspired Oxygen 05/30/24 04:00 05/30/24 04:00 05/30/24 04:00 Temperature Pulse Rate 97 97 97 Respiratory Rate Blood Pressure 102/73 102/73 102/73 Pulse Oximetry Oxygen Delivery Fraction of Inspired Oxygen 05/30/24 04:00 05/30/24 04:00 05/30/24 04:00 Temperature Pulse Rate 97 97 Respiratory Rate Blood Pressure 102/73 102/73 Pulse Oximetry Oxygen Delivery Fraction of Inspired Oxygen 30 05/30/24 04:00 05/30/24 04:00 05/30/24 04:00 Temperature 37.7 C H Pulse Rate 94 96 Respiratory Rate 22 H Blood Pressure 102/73 Pulse Oximetry 95 95 Oxygen Delivery Mechanical Ventilation Fraction of Inspired Oxygen 30 05/30/24 04:45 05/30/24 04:45 05/30/24 05:00 Temperature Pulse Rate 101 H 99 97 Respiratory Rate 30 H Blood Pressure 68/53 L 78/56 L Pulse Oximetry Oxygen Delivery Fraction of Inspired Oxygen 05/30/24 05:09 05/30/24 05:15 05/30/24 06:00 Temperature Pulse Rate 97 98 92 Respiratory Rate 23 H Blood Pressure 71/59 L Pulse Oximetry 95 Oxygen Delivery Mechanical Ventilation Fraction of Inspired Oxygen 30 05/30/24 06:00 05/30/24 06:00 05/30/24 06:00 Temperature Pulse Rate 92 92 92 Respiratory Rate Blood Pressure 73/64 L 73/64 L 73/64 L Pulse Oximetry Oxygen Delivery Fraction of Inspired Oxygen 05/30/24 06:00 05/30/24 06:00 05/30/24 06:00 Temperature Pulse Rate 92 92 92 Respiratory Rate Blood Pressure 73/64 L 73/64 L 73/64 L Pulse Oximetry Oxygen Delivery Fraction of Inspired Oxygen 05/30/24 06:00 05/30/24 07:30 05/30/24 07:41 Temperature 37.5 C Pulse Rate 92 82 77 Respiratory Rate 23 H 20 Blood Pressure 73/64 L 73/43 L Pulse Oximetry 92 Oxygen Delivery Fraction of Inspired Oxygen 05/30/24 07:41 05/30/24 08:00 05/30/24 08:21 Temperature Pulse Rate 77 77 Respiratory Rate Blood Pressure 73/43 L 62/53 L Pulse Oximetry Oxygen Delivery Fraction of Inspired Oxygen 30 05/30/24 08:23 05/30/24 08:23 05/30/24 08:32 Temperature Pulse Rate 76 76 73 Respiratory Rate Blood Pressure 62/53 L 62/53 L Pulse Oximetry Oxygen Delivery Mechanical Ventilation Fraction of Inspired Oxygen 30 Intake/Output Intake/Output: Intake & Output 05/27/24 05/28/24 05/29/24 05/30/24 23:59 23:59 23:59 23:59 Intake Total 946.7 1986.4 2358.3 2444.5 Output Total 0 400 1953 55 Balance 946.7 1586.4 405.3 2389.5 Meds/Results Medications: Active Medications Generic Name Dose Route Start Last Admin Trade Name Freq PRN Reason Stop Dose Admin Acetaminophen 650 mg 05/30/24 01:25 05/30/24 02:00 Acetaminophen Elixir 325 Mg/10.15 Ml Udc FEED TUBE 650 mg Q6H PRN Administration Mild Pain (1-3) or Fever Albuterol/Ipratropium 3 ml 05/27/24 15:02 05/29/24 20:07 Ipratropium 0.5 Mg/Albuterol Sulfate 2.5 Mg Ampul.Neb 3 Ml INHALATION 3 ml Q6HRT PRN Administration Wheezing Atropine Sulfate 1 - 2 drop 05/30/24 08:50 Atropine Sulfate 1% Ophth Soln 5 Ml Bottle SUBLINGUAL Q4H PRN Secretions Clopidogrel Bisulfate 75 mg 05/28/24 09:00 05/30/24 08:20 Clopidogrel Bisulfate 75 Mg Tablet FEED TUBE 75 mg QAM JAZMIN Administration Dextrose 12.5 gm 05/27/24 14:50 Dextrose 50% 25 Gm/50 Ml Syringe IV PUSH PRN PRN Hypoglycemia Protocol Enoxaparin Sodium 30 mg 05/28/24 09:00 05/29/24 11:18 Enoxaparin 30 Mg/0.3 Ml Syringe SUB-Q 30 mg DAILY JAZMIN Administration Glucagon 1 mg 05/27/24 14:50 Glucagon For Inj 1 Mg Vial IM PRN PRN Hypoglycemia Protocol Glucose 15 gm 05/27/24 14:50 Glucose Oral Gel 15 Gm Of Glucse In 37.5 Gm Tube PO PRN PRN Hypoglycemia Protocol Fentanyl Citrate 2,500 mcg in 250 mls @ 0 mls/hr 05/27/24 14:50 05/29/24 10:05 Fentanyl 2,500 Mcg/Ns 250 Ml IV CONT 0 mcg/hr .Q0M JAZMIN 0 mls/hr Titration Protocol Propofol 100 mls @ 0 mls/hr 05/27/24 14:50 05/30/24 07:30 Diprivan IV CONT 0 mcg/kg/min .Q0M JAZMIN 0 mls/hr Titration Protocol Dextrose 1,000 mls @ 100 mls/hr 05/27/24 14:50 Dextrose 5% 1,000 Ml IVPB PRN PRN Hypoglycemia Protocol Metronidazole 500 mg in 100 mls @ 100 mls/hr 05/28/24 04:00 05/30/24 03:07 Flagyl 500 Mg/Iso Soln 100 Ml IVPB 100 mls/hr Q8H JAZMIN Administration Norepinephrine Bitartrate 8 mg in 250 mls @ 56.25 mls/hr 05/28/24 05:20 05/30/24 08:23 Levophed 8 Mg/D5w 250 Ml IV CONT 30 mcg/min .Q4H27M JAZMIN 56.25 mls/hr Administration Protocol 30 MCG/MIN Cefepime HCl 1 gm in 50 mls @ 100 mls/hr 05/28/24 18:00 05/29/24 19:00 Maxipime 1 Gm/Ns 50 Ml IVPB Infused DAILY@1800 JAZMIN Infusion Vasopressin 100 units/ 100 mls @ 2.4 mls/hr 05/29/24 07:45 05/30/24 06:00 Dextrose IV CONT 0.04 units/min .[id number] JAZMIN 2.4 mls/hr Titration Protocol 0.04 UNITS/MIN Levetiracetam 1,000 mg in 100 mls @ 400 mls/hr 05/29/24 16:00 05/30/24 08:10 Keppra Iv IVPB 400 mls/hr Q8HR JAZMIN Administration Valproate Sodium 1,000 mg/ 110 mls @ 110 mls/hr 05/29/24 18:00 05/30/24 02:35 Dextrose IVPB Infused Q8H JAZMIN Infusion Epinephrine HCl 1 mg/ Dextrose 251 mls @ 150.6 mls/hr 05/30/24 02:15 05/30/24 07:41 IV CONT 10 mcg/min .Q1H40M JAZMIN 150.6 mls/hr Administration Protocol 10 MCG/MIN Phenylephrine HCl 50 mg/ 250 ml in 250 mls @ 54 mls/hr 05/30/24 02:55 05/30/24 06:00 Dextrose IV CONT 180 mcg/min .Q4H38M JAZMIN 54 mls/hr Titration Protocol 180 MCG/MIN Sodium Chloride 250 mls @ 30 mls/hr 05/30/24 04:27 Normal Saline Iv IV CONT 05/30/24 12:46 .Q8H20M STA Insulin Aspart 4 - 8 units 05/30/24 07:25 05/30/24 08:25 Insulin Aspart (*Bkc) 100 Units/Ml SUB-Q 5 units Q4H JAZMIN Administration Protocol Insulin Glargine 20 units 05/30/24 09:00 05/30/24 08:20 Insulin Glargine (*Bkc) 100 Units/Ml SUB-Q 20 units QAM JAZMIN Administration Lorazepam 4 mg 05/30/24 08:50 Lorazepam Inj (*Crx) 2 Mg/Ml Vial IV PUSH 05/30/24 08:51 ONCE ONE Lorazepam 2 mg 05/30/24 08:50 Lorazepam Inj (*Crx) 2 Mg/Ml Vial IV PUSH Q1H PRN Anxiety/Comfort Morphine Sulfate 5 mg 05/30/24 08:50 Morphine Sulfate Inj (*Crx) 10 Mg/Ml Amp IV PUSH 05/30/24 08:51 ONCE ONE Morphine Sulfate 2 mg 05/30/24 08:50 Morphine Sulfate (*Crx) 2 Mg/Ml Inj IV PUSH Q30M PRN COMFORT Multi-Ingred Cream/Lotion/Oil/Oint 1 applic 05/27/24 21:00 05/30/24 08:20 Mineral Oil/White Petrolatum Ointment EACH EYE 1 applic Q12HR JAZMIN Administration Ondansetron HCl 4 mg 05/27/24 14:13 Ondansetron Inj 4 Mg/2 Ml Vial IV PUSH Q4H PRN Nausea Pantoprazole Sodium 40 mg 05/28/24 09:00 05/30/24 08:20 Pantoprazole Sodium Iv 40 Mg Vial IV PUSH 40 mg DAILY JAZMIN Administration Sodium Chloride 10 ml 05/28/24 14:00 05/30/24 07:35 Central Line Flush IV PUSH 10 ml Q8HR JAZMIN Administration Sodium Chloride 20 ml 05/28/24 10:09 Central Line Flush IV PUSH PRN PRN after blood draws Radiology Results: ITS Impressions Abdomen X-Ray 05/27/24 13:15 IMPRESSION: 1: NG tube tip in the stomach. Chest/Abdomen/Pelvis CTA 05/27/24 14:18 IMPRESSION: 1. Diffuse bilateral lung disease with most dense consolidation in the dependent right lower lobe. Would favor multifocal pneumonia over pulmonary edema. 2. Radiographically uncomplicated distal descending colon diverticulitis. 3. Endotracheal tube tip at the entrance to the left mainstem bronchus. Recommend withdrawal by 3 cm. This and the above 2 findings were discussed with Dr. Gordon at 2:30 PM. 4. Cardiomegaly with left heart predominance. 5. Enlargement of the central pulmonary arteries consistent with pulmonary arterial hypertension. No evident pulmonary embolism. 5. Small sliding-type hiatal hernia. 6. Severe bilateral renal atrophy. 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 Head CT 05/29/24 08:36 Impression: No acute abnormality seen. Chest CT 05/29/24 08:38 Impression: [id number] right pneumothorax. Bibasilar consolidation with scattered hyperdense material the lungs is compatible with aspiration pneumonia and/or bibasilar atelectasis. Correlate clinically. Minimal pleural fluid bilaterally. Chest X-Ray 05/30/24 06:34 Impression: Support tubes, as above. No pneumothorax evident. Central congestive change and bibasilar pulmonary atelectasis versus pneumonia. Developing possible nodular opacity left upper lobe. Follow-up exam advised. Labs Labs: Laboratory Results - last 24 hr 05/27/24 05/29/24 05/29/24 11:47 09:55 10:00 WBC RBC Hgb Hct MCV MCH MCHC RDW Plt Count MPV Sodium 133 L Potassium 4.1 Chloride 93 L Carbon Dioxide 26 Anion Gap 14 H BUN 39 H Creatinine 7.61 H Estim Creat Clear Calc 6 Estimated GFR 5 L Glucose 186 H POC Capillary Glucose 125 H 195 H Calcium 8.5 Phosphorus Magnesium Total Bilirubin 0.5 AST 151 H ALT 126 H Alkaline Phosphatase 149 H Total Creatine Kinase 279 H Total Protein 6.0 L Albumin 3.0 L Triglycerides Blood Type Antibody Screen TRAE, IgG Interpret TRAE, Poly Interpret TRAE, Complement Interp Crossmatch 05/29/24 05/29/24 05/29/24 10:18 12:33 15:12 WBC 17.6 H RBC 3.02 L Hgb 7.9 L Hct 26.3 L MCV 87.1 MCH 26.2 MCHC 30.0 L RDW 17.4 H Plt Count 255 MPV 9.9 Sodium Potassium Chloride Carbon Dioxide Anion Gap BUN Creatinine Estim Creat Clear Calc Estimated GFR Glucose POC Capillary Glucose 187 H Calcium Phosphorus Magnesium Total Bilirubin AST ALT Alkaline Phosphatase Total Creatine Kinase Total Protein Albumin Triglycerides 379 H Blood Type Antibody Screen TRAE, IgG Interpret TRAE, Poly Interpret TRAE, Complement Interp Crossmatch 05/29/24 05/29/24 05/29/24 17:34 21:10 23:00 WBC RBC Hgb Hct MCV MCH MCHC RDW Plt Count MPV Sodium 133 L Potassium 3.8 Chloride 92 L Carbon Dioxide 24 Anion Gap 17 H BUN 16 D Creatinine 3.81 H Estim Creat Clear Calc 12 Estimated GFR 12 L Glucose 301 H POC Capillary Glucose 138 H 185 H Calcium 8.3 L Phosphorus Magnesium 1.8 Total Bilirubin AST ALT Alkaline Phosphatase Total Creatine Kinase Total Protein Albumin Triglycerides Blood Type Antibody Screen TRAE, IgG Interpret TRAE, Poly Interpret TRAE, Complement Interp Crossmatch 05/30/24 05/30/24 05/30/24 03:27 03:52 04:49 WBC 21.8 H RBC 1.97 L Hgb 5.3 L* Hct 17.8 L* MCV 90.4 MCH 26.9 MCHC 29.8 L RDW 17.3 H Plt Count 261 MPV 10.7 H Sodium 131 L Potassium 3.8 Chloride 93 L Carbon Dioxide 20 L Anion Gap 18 H BUN 18 H Creatinine 4.08 H Estim Creat Clear Calc 11 Estimated GFR 11 L Glucose 324 H POC Capillary Glucose 232 H Calcium 7.9 L Phosphorus 4.4 Magnesium 2.4 H Total Bilirubin 0.4 AST 131 H ALT 93 H Alkaline Phosphatase 105 Total Creatine Kinase Total Protein 5.0 L Albumin 2.7 L Triglycerides Blood Type O Negative Antibody Screen Positive TRAE, IgG Interpret Positive TRAE, Poly Interpret Positive TRAE, Complement Interp Negative Crossmatch See Detail 05/30/24 08:17 WBC RBC Hgb Hct MCV MCH MCHC RDW Plt Count MPV Sodium Potassium Chloride Carbon Dioxide Anion Gap BUN Creatinine Estim Creat Clear Calc Estimated GFR Glucose POC Capillary Glucose 279 H Calcium Phosphorus Magnesium Total Bilirubin AST ALT Alkaline Phosphatase Total Creatine Kinase Total Protein Albumin Triglycerides Blood Type Antibody Screen TRAE, IgG Interpret TRAE, Poly Interpret TRAE, Complement Interp Crossmatch Quality VTE Prophylaxis VTE prophylaxis: pharmacologic ordered
[2024-05-30] MEDS: MORPHINE SULFATE INJ (*CRX) 10 MG/ML AMP 5 MG IV PUSH (09:17)
[2024-05-30] MEDS: LORazepam INJ (*CRX) 2 MG/ML VIAL 4 MG IV PUSH (09:18)
--- NOTE | 2024-05-30 11:51 | PM.DDS ---
Discharge Summary Date and Time Date of : 05/30/24 Time of : 09:57 Provider Pronounced By: 2 RNs Name of First RN That Pronounced: Harinder Barahona Name of Second RN That Pronounced: Winsome Hoffman Additional Data Confirmation of as documented by pronouncing clinician: Pupillary Reflex, Palpable Pulses, Response to Stimuli, Heart Tones and Breath Sounds Name of Provider Notified: Dr. العلي Time Provider Notified: 10:30 Family Requests Autopsy: No Leather Stretcher Notified: Yes Date [facility] Notified of : 05/30/24 Time [facility] Notified of : 11:00
[2024-05-31 16:39] LABS: Mycoplasma IgM Antibody Titer 100 U/mL
--- NOTE | 2024-05-31 22:45 | P.CODEBLUE_ITS ---
Code Blue Note Code Blue Note Time Arrived at Code Blue: 05/28/24 03:07 05/28/24 03:37 05/28/24 06:46 Initial Rhythm on Arrival: 05/28/24 03:07 Ventricular fibrillation; Ventricular tachycardia 05/28/24 03:37 Ventricular fibrillation; Ventricular tachycardia 05/28/24 06:46 PEA. Chest compressions performed; 1x Epinephrine administered; Bicarb administered; ROSC attained. See code blue sheet for shocks, medications, and compressions performed Airway Management: Pt intubated during resuscitation Chest Compressions: No compressions given (No compressions were given in the initial 2 code blue events; A round of chest compression wi) Result of Code Blue: Pt regained consciousness Cardiac Rhythm Post Code: NSR; PVCs Code Blue Summary: * Patient already in the ICU * Patient already intubated prior to code * Patient was shocked back to normal rhythm * Patient's family updated
--- NOTE | 2024-05-31 23:09 | P.CODEBLUE_ITS ---
Code Blue Note Code Blue Note Time Arrived at Code Blue: 05/29/24 23:00 Initial Rhythm on Arrival: 05/29/24 23:00 Ventricular fibrillation; Ventricular tachycardia See code blue form for information about the code Airway Management: Pt intubated during resuscitation (Already intubated and sedated) Result of Code Blue: Pt transferred to ICU (Already in the ICU) Cardiac Rhythm Post Code: None Code Blue Summary: * Shocked back to rhythm * Already on Amiodarone infusion * family updated and informed
--- NOTE | 2024-06-20 22:29 | ED.PROGRESS ---
Subjective Date/time seen: 05/28/2024 06:40 I responded to a code blue called for this patient. Multiple code blues had been called during the overnight shift. Nursing staff report the patient's rhythm degenerated into Vfib. CPR was started and the patient was defibrillated once. ROSC was achieved just before my arrival. Review of Systems Review of Systems ROS unobtainable: Yes unobtainable due to endotracheal tube Exam Narrative GENERAL: Sedated and intubated HEAD: Normocephalic, atraumatic ENT: Intubated CHEST: Coarse transmitted airway sounds HEART: Tachycardic with regular rhythm. ABDOMEN: Soft, nondistended SKIN: Warm, dry, no rash. NEURO: Sedated and intubated Objective Data Vital Signs Vital Signs: P - 105 BP - 138/83 R - 20 SO2 - 100% on 100% FiO2 Meds/Results Radiology Results: ITS Impressions Abdomen X-Ray 05/27/24 13:15 IMPRESSION: 1: NG tube tip in the stomach. Chest/Abdomen/Pelvis CTA 05/27/24 14:18 IMPRESSION: 1. Diffuse bilateral lung disease with most dense consolidation in the dependent right lower lobe. Would favor multifocal pneumonia over pulmonary edema. 2. Radiographically uncomplicated distal descending colon diverticulitis. 3. Endotracheal tube tip at the entrance to the left mainstem bronchus. Recommend withdrawal by 3 cm. This and the above 2 findings were discussed with Dr. Gordon at 2:30 PM. 4. Cardiomegaly with left heart predominance. 5. Enlargement of the central pulmonary arteries consistent with pulmonary arterial hypertension. No evident pulmonary embolism. 5. Small sliding-type hiatal hernia. 6. Severe bilateral renal atrophy. 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 Head CT 05/29/24 08:36 Impression: No acute abnormality seen. Chest CT 05/29/24 08:38 Impression: [id number] right pneumothorax. Bibasilar consolidation with scattered hyperdense material the lungs is compatible with aspiration pneumonia and/or bibasilar atelectasis. Correlate clinically. Minimal pleural fluid bilaterally. Chest X-Ray 05/30/24 06:34 Impression: Support tubes, as above. No pneumothorax evident. Central congestive change and bibasilar pulmonary atelectasis versus pneumonia. Developing possible nodular opacity left upper lobe. Follow-up exam advised. Progress Note: A&P Assessment and Plan (1) Cardiac arrest with ventricular fibrillation: Code(s): I46.9 - Cardiac arrest, cause unspecified; I49.01 - Ventricular fibrillation Status: Acute Assessment and Plan: ROSC after CPR and one 200J defibrillation. The patient is currently critically ill though BP is now stable and tachycardia improving. No additional intervention at this time. The patient's family is aware.
== END 2024-05-30 09:57 | disposition expired | DRG 208 ==
LOC: ANHED 15:28 → ANHICU 15:35
PROVIDERS: Internal Medicine; Internal Medicine Nephrology; Physician Assistant; Admitting Provider Internal Medicine; Emergency Provider Emergency Medicine; Visit Provider Internal Medicine
DX: J69.0 Pneumonitis due to inhalation of food and vomit (principal); J96.01 Acute respiratory failure with hypoxia; N18.6 End stage renal disease; I50.42 Chronic combined systolic (congestive) and diastolic (congestive) heart failure; G93.1 Anoxic brain damage, not elsewhere classified; J93.9 Pneumothorax, unspecified; I42.8 Other cardiomyopathies; I47.20 Ventricular tachycardia, unspecified; I49.01 Ventricular fibrillation; I48.0 Paroxysmal atrial fibrillation; I46.9 Cardiac arrest, cause unspecified; J44.9 Chronic obstructive pulmonary disease, unspecified; N25.0 Renal osteodystrophy; D64.9 Anemia, unspecified; E03.9 Hypothyroidism, unspecified; K21.9 Gastro-esophageal reflux disease without esophagitis; G47.33 Obstructive sleep apnea (adult) (pediatric); E11.42 Type 2 diabetes mellitus with diabetic polyneuropathy; E11.22 Type 2 diabetes mellitus with diabetic chronic kidney disease; K57.90 Diverticulosis of intestine, part unspecified, without perforation or abscess without bleeding; E78.5 Hyperlipidemia, unspecified; F41.9 Anxiety disorder, unspecified; Z79.01 Long term (current) use of anticoagulants; Z86.73 Personal history of transient ischemic attack (TIA), and cerebral infarction without residual deficits; Z87.11 Personal history of peptic ulcer disease; Z86.718 Personal history of other venous thrombosis and embolism; Z98.1 Arthrodesis status; Z90.3 Acquired absence of stomach [part of]; Z90.49 Acquired absence of other specified parts of digestive tract; Z90.710 Acquired absence of both cervix and uterus; Z99.2 Dependence on renal dialysis
CPT/HCPCS: 36415; 36600; 70450; 71045; 71250; 71275; 74174; 80048; 80053; 80076; 80162; 82375; 82550; 82805; 82948; 83050; 83605; 83735; 83880; 84100; 84145; 84478; 84484; 85018; 85025; 85027; 85610; 85730; 86706; 86738; 86850; 86860; 86870; 86880; 86900; 86901; 86902; 86906; 86971; 86972; 87040; 87070; 87205; 87340; 87637; 87641; 92950; 93005; 94002; 94003; 94640; 96365; 96367; 96375; 99291; A9270; C1729; C8929; G0257; J0171; J0282; J0692; J1644; J1650; J1815; J1836; J1953; J2060; J2250; J2270; J2371; J2470; J2704; J3010; J3370; J3475; J7030; J7040; J7060; P9047; Q5105; Q9957; Q9967